=== PATIENT | female | born 1950 | race Caucasian/White ===

== ENCOUNTER → 2016-06-14 | Outpatient (CLI) | payer MEDICAID ==
[~2016-06-14] MED LIST: ACET-2267 PO; ASPI-586 PO; ASPI-983 PO; ATEN50TA PO; ATOR40TA70 PO; CALC-78 PO; CARB25DR OU; CEFU250T PO; CEFU250T80 PO; CITA40TA11 PO; CYCL1DRO OU; ETOD500T PO; FERR-74 PO; GABA-488 PO; GABA-490 PO; GLUC-132 PO; GLUC1TAB20 PO; INSU100I14 SQ; INSU100V6 SQ; L.AC1CAP6 PO; LISI-556 PO; METF1000 PO; MINE3.5O2 OU; MIRA50TA PO; MULT-166 PO; OXYB10TA PO; OXYB15TA PO; OXYB5TAB9 PO; POLY15DR14 OU; RANI150T11 PO; SIMV20TA3 PO; TOPI200T8 PO; WARF-48 PO; WARF2.5T82 PO; WARF5TAB PO; WARF7.5T49 PO
--- OUTSIDE RECORDS SUMMARY | 2016-06-14 11:44 | XMS REPORT | Continuity of Care Document ---
Author Author [facility] Organization [facility] Address Unknown Phone Unavailable Care Team Providers Care Med Specialist Name Role Phone DELIA TRIANA MD PCP Insurance Providers Payer Name Policy Number Subscriber Name Relationship [facility] [id number] Alfredo Paez 20 Self / Same As Patient Advance Directives Directive Response Recorded Date/Time Advance Directives No 02/11/16 8:18am Health Care Power of Asbestos Shingle Inspector No 02/11/16 8:18am Organ Donor No 02/11/16 8:18am Resuscitation Status Full Code 02/11/16 8:18am Problems Active Problems Medical Problem Onset Date Status DVT (deep venous thrombosis) Unknown Acute Deep vein thrombosis of left lower extremity Unknown Acute Post-menopausal bleeding Unknown Acute UTI (urinary tract infection) Unknown Acute Upper respiratory infection, acute Unknown Acute Urinary tract infection Unknown Acute Medications Current Home Medications Medication Dose Units Route Directions Days/Qty Instructions Start Date Polyvinyl Alcohol/Povidone 15 Ml 1 Drop Each Eye Four Times Daily as needed for Dry Eyes 08/08/15 Carboxymethylcell/Hypromellose 25 Ml Each Eye Bedtime as needed for Dry Eyes 08/08/15 Mineral Oil/Petrolatum,White 3.5 Gm Each Eye Bedtime 08/08/15 Oxybutynin Chloride 15 Mg 15 Mg Oral Daily 08/08/15 Oxybutynin Chloride 5 Mg 5 Mg Oral Bedtime 08/08/15 Ranitidine Hcl 150 Mg 150 Mg Oral Twice A Day as needed for Heartburn 08/08/15 Insulin Aspart 300 Units/3 Ml 7 Units Sub-Q Breakfast & Lunch Insulin Aspart 300 Units/3 Ml 9 Units Sub-Q With Evening Meal Topiramate 200 Mg 100 Mg Oral Twice A Day TAKES 1/2 (200MG) TABLET Aspirin 81 Mg 81 Mg Oral Daily 08/08/15 Atenolol 50 Mg 50 Mg Oral Twice A Day 08/08/15 Calcium Carbonate/Vitamin D3 1 Each 2 Tab Oral Daily 08/08/15 Citalopram Hydrobromide 40 Mg 40 Mg Oral Daily 08/08/15 Etodolac 500 Mg 500 Mg Oral Twice A Day 08/08/15 Acetaminophen 500 Mg 1,000 Mg Oral Every 6 Hours as needed for Pain TAKES 2 (500MG) TABLETS 08/08/15 Insulin Glargine,Hum.rec.anlog 100 Unit/1 Ml 18 Unit Sub-Q Bedtime 08/08/15 Lisinopril 5 Mg 5 Mg Oral Bedtime 08/08/15 Lisinopril 5 Mg 10 Mg Oral Daily TAKES 2 (5MG) TABLETS 08/08/15 Multivitamin With Minerals 1 Each 1 Tab Oral Daily 08/08/15 Simvastatin 20 Mg 10 Mg Oral Bedtime TAKES 1/2 (20MG) TABLET 08/08/15 Gluc Hoyos/Chondro Hoyos A/Vit C/Mn 1 Each 1 Tab Oral Twice A Day 08/08/15 Warfarin Sodium 2.5 Mg 2.5 Mg Oral Daily 08/27/15 Cefuroxime Axetil 250 Mg 250 Mg Oral Twice A Day for Uti 14 08/27/15 Past Home Medications Medication Directions Ordered Status Gabapentin 300 Mg Capsule, 600 Mg Oral Three Times A Day 08/08/15 Discontinued Metformin Hcl 1,000 Mg Tablet, 1000 Mg Oral Twice A Day 08/08/15 Discontinued L.acidoph & Paracasei,B.lactis 1 Each Capsule, 1 Cap Oral Daily as needed for Loose Stools 08/08/15 Discontinued Warfarin Sodium 5 Mg Tablet, 5 Mg Oral Daily 08/11/15 Discontinued Social History Social History Problem Response Recorded Date/Time Alcohol Use Past History 08/27/2015 12:27am Recreational Drug Use No 08/27/2015 12:27am Recent Foreign Travel No 02/11/2016 8:18am Recent Infectious Disease Exposure No 02/11/2016 8:18am Smoking Status Former Smoker 02/11/2016 8:37am Query Response Start Date Stop Date Smoking Status Former Smoker 08/07/1980 Hospital Discharge Instructions Patient Instructions Physician Instructions Follow Up/Plan Hold Metformin for [address] Calvert's office in 2-4 weeks CARDIAC CATH DISCHARGE INSTRUCTIONS *Hold Metformin for 48 hours post heart cath. ACTIVITY * Go Home directly and rest. * Limit activity of the leg (or wrist if it was used) for 7 days including aerobics, swimming, jogging, bicycling, etc. * Restrict stair-climbing for 7 days if possible, if not, climb up with your non-cath leg, then bring together on the same step. * Avoid lifting, pushing, pulling or excessive movement of the affected extremity for 7 days. * Customary sexual activity may be resumed after 2 days-use caution not to use a position that strains or causes pain to the affected extremity. * No driving for 24 hours. * NO SMOKING. * Avoid straining for bowel movements for 7 days. * Gentle walking on level ground is allowed. * Returning to work will depend on the type of procedure and the results. Your doctor will discuss this with you. CALL YOUR DOCTOR FOR ANY OF THE FOLLOWING: *If bleeding from the puncture site occurs- Apply gentle pressure to site with clean cloth and call your doctor or EMS. * If a knot or lump forms under the skin, increases in size, or causes pain. * If bruising appears to be worsening or moving further down your leg instead of disappearing. * Temperature above 101 F. CARE OF YOUR GROIN INCISION; * Bruising or purple discoloration of the skin near the puncture site is common. * You may shower only, no bathtub bathing for 5 days. Be careful to avoid slipping as your leg may feel stiff. * If a closure device was used on your femoral artery, please see the attached guide regarding care of the device and your leg. * REMOVE the dressing from your groin the next day after your procedure in the shower. CARE OF YOUR WRIST INCISION; * Bruising or purple discoloration of the skin near the puncture site is common. * You may shower. * DO NOT submerge wrist. * Remove dressing in 24 hours. Plan of Care Discharge Date 02/11/16 5:15pm Instructions/Education Provided CARDIAC CATH DISCHARGE INSTRUC Prescriptions See Medication Section Functional Status Query Response Date Recorded Patient Orientation Person Place Time Situation Normal For Age February 11, 2016 5:19pm Allergies, Adverse Reactions, Alerts Allergen Type Severity Reaction Status Last Updated Isosorbide Allergy Unknown Active 08/07/15 Glyburide Allergy Unknown Active 08/07/15 cellulase Allergy Unknown Active 08/07/15 amylase Allergy Unknown Active 08/07/15 lipase Allergy Unknown Active 08/07/15 protease Allergy Unknown Active 08/07/15 Black cohosh extract Allergy Unknown Active 08/07/15 Immunizations No immunization records. Vital Signs Acute Vital Signs Vital Response Date/Time Temperature (Fahrenheit) 97.0 degrees F (97.6 - 99.5) 02/11/2016 5:15pm Temperature (Calculated Celsius) 36.87395 degrees C (36.4 - 37.5) 02/11/2016 4:00pm Temperature Source Temporal 02/11/2016 5:15pm Pulse Rate (adult) 67 bpm (60 - 90) 02/11/2016 5:15pm Respiratory Rate 18 bpm (12 - 24) 02/11/2016 5:15pm O2 Sat by Pulse Oximetry 99 % (88 - 100) 02/11/2016 5:15pm Blood Pressure 117/67 mm Hg 02/11/2016 5:15pm Blood Pressure Mean 84 mm Hg 02/11/2016 5:00pm Pain Numeric Pain Scale 0-No Pain 02/11/2016 5:15pm Height (Feet) 5 feet 02/11/2016 8:37am Height (Inches) 10.00 inches 02/11/2016 8:37am Height (Calculated Centimeters) 177.349349 cm 02/11/2016 8:37am Weight (Pounds) 313 pounds 02/11/2016 8:37am Weight (Ounces) 0.0 oz 02/11/2016 8:37am Weight (Calculated Grams) 320921.41 gm 02/11/2016 8:37am Weight (Calculated Kilograms) 141.729279 kilograms 02/11/2016 8:37am Calculated BMI 44.9 02/11/2016 8:37am Results Pending Laboratory Results Test Name Collection Date/Time Microbiology Results Procedure Source Result Collection Date/Time Result Date/Time Anaerobic Culture Tissue, Toe No anaerobes isolated 01/13/2016 11:15am 07/2015 1:53pm Wound Culture Tissue, Toe STAPH, COAG NEG (HIGH SCHOOL MUSIC INSTRUCTOR) 01/13/2016 11:15am 2015 10:39am Anaerobic Culture Bone, Toe No growth 02/03/2016 12:18pm 02/05/2016 4:03pm Wound Culture Bone, Toe No growth 02/03/2016 12:18pm 02/04/2016 1:30pm Pending Microbiology Results Procedure Source Collection Date/Time Procedures Procedure Status Date Provider(s) Color Doppler echocardiography Active 01/30/16 CHARLY CALVERT MD Encounters Encounter Location Arrival/Admit Date Discharge/Depart Date Attending Provider Departed [facility] 02/11/16 7:52am 5:15pm CHARLY CALVERT MD Discharged Recurring [facility] 02/10/16 11:06am 8:56am NATE MORGAN MD Registered Clinic [facility] 01/30/16 1:37pm CHARLY CALVERT MD Registered Clinic [facility] 01/29/16 4:30pm DELIA TRIANA MD Registered Clinic [facility] 01/20/16 12:38pm NATE MORGAN MD
--- NOTE | 2016-06-14 13:20 | Diagnostic Imaging Report ---
Transabdominal and transvaginal pelvic ultrasound. INDICATION: Postmenopausal spotting. FINDINGS: The uterus is 6.4 x 4.8 x 3.5 cm. The endometrial stripe does not appear to be uniform with thickest area about 0.7 cm. Tiny cystic spaces are noted in the endometrium. There is no definitive internal vascularity seen with color Doppler. In the uterine fundus there is a myometrial hypoechoic lesion measuring 1.6 x 1.5 x 1.6 cm likely related to fibroid. There is also a lesion measuring 1.1 cm noted at the junction between the cervix and the lower uterine segment abutting the anterior aspect of the endometrial/endocervical canal, questioned to be a complicated nabothian cyst. The ovaries are obscured by bowel gas. IMPRESSION: Abnormal thickening of the endometrium with mild heterogeneity may relate to underlying hyperplasia, polyp, or endometrial carcinoma. Report was called and faxed to Katherine at office of Dr. Eliseo Valdivia @ 1:15 PM/gianni. Dictated by: Dictated on workstation # [id number]
== END ==
LOC: RAD 11:41
PROVIDERS: ATTEND Obstetrics & Gynecology
DX: N95.0 Postmenopausal bleeding (principal)
CPT/HCPCS: 76830; 76856

== ENCOUNTER → 2016-06-17 | Outpatient (CLI) | payer OTHER, MEDICAID ==
--- OUTSIDE RECORDS SUMMARY | 2016-06-17 13:20 | XMS REPORT | Continuity of Care Document ---
Author Author [facility] Organization [facility] Address Unknown Phone Unavailable Care Team Providers Care Oceanographic Meteorologist Name Role Phone DELIA TRIANA MD PCP Insurance Providers Payer Name Policy Number Subscriber Name Relationship [facility] [id number] Alfredo Peaz 20 Self / Same As Patient Advance Directives Directive Response Recorded Date/Time Advance Directives No 02/11/16 8:18am Health Care Power of Vice President Tax No 02/11/16 8:18am Organ Donor No 02/11/16 [...] - 99.5) 02/11/2016 5:15pm Temperature (Calculated Celsius) 36.23281 degrees C (36.4 - 37.5) 02/11/2016 4:00pm [...] 10.00 inches 02/11/2016 8:37am Height (Calculated Centimeters) 177.904732 cm 02/11/2016 8:37am Weight (Pounds) 313 pounds 02/11/2016 8:37am Weight (Ounces) 0.0 oz 02/11/2016 8:37am Weight (Calculated Grams) 568779.41 gm 02/11/2016 8:37am Weight (Calculated Kilograms) 141.639924 kilograms 02/11/2016 8:37am Calculated BMI 44.9 02/11/2016 8:37am Results Pending Laboratory Results Test Name Collection Date/Time Microbiology Results Procedure Source Result Collection Date/Time Result Date/Time Anaerobic Culture Tissue, Toe No anaerobes isolated 01/13/2016 11:15am 07/2015 1:53pm Wound Culture Tissue, Toe STAPH, COAG NEG (CUTTER MACHINE TENDER) 01/13/2016 11:15am 2015 10:39am Anaerobic Culture Bone, Toe No growth 02/03/2016 12:18pm 02/05/2016 4:03pm Wound Culture Bone, Toe No growth 02/03/2016 12:18pm 02/04/2016 1:30pm Pending Microbiology Results Procedure Source Collection Date/Time Procedures Procedure Status Date Provider(s) Color Doppler echocardiography Active 01/30/16 CHARLY CALVERT MD Encounters Encounter Location Arrival/Admit Date Discharge/Depart Date Attending Provider Departed [facility] 02/11/16 7:52am 5:15pm CHARLY CALVERT MD Discharged Recurring [facility] 02/10/16 11:06am 8:56am NATE MORGAN MD Registered Clinic [facility] 01/30/16 1:37pm CHARLY CALVERT MD Registered Clinic [facility] 01/29/16 4:30pm DELIA TRIANA MD Registered Clinic [facility] 01/20/16 12:38pm NATE MORGAN MD
--- NOTE | 2016-06-21 13:14 | Diagnostic Imaging Report ---
Bilateral screening mammogram. The current study was also evaluated with a Computer Aided Detection (CAD) system. INDICATION: Screening. No current complaints stated on the questionnaire. COMPARISON: 06/02/15. FINDINGS: The breasts are composed of scattered fibroglandular densities. There are occasional benign-appearing calcifications seen. Allowing for technique and positional differences, no suspicious change is seen. IMPRESSION: No significant change. ACR BI-RADS Category 2: Benign findings. Result letter will be mailed to the patient. Note: At least 10% of breast cancer is not imaged by mammography. Dictated by: Dictated on workstation # [id number]
== END ==
LOC: RAD 13:16
DX: Z12.31 Encounter for screening mammogram for malignant neoplasm of breast (principal)
CPT/HCPCS: 77067

== ENCOUNTER 2016-07-14 05:33 | Outpatient (CLI) | payer OTHER, MEDICAID ==
[~2016-07-14] VITALS: Ht 177.8 cm; Wt 142.0 kg
[~2016-07-14 05:33] MED LIST changes: -ASPI-586 PO; -ATOR40TA70 PO; -CEFU250T80 PO; -CYCL1DRO OU; -FERR-74 PO; -GABA-490 PO; -GLUC-132 PO; -MIRA50TA PO; -OXYB10TA PO; -WARF-48 PO
--- OUTSIDE RECORDS SUMMARY | 2016-07-14 05:37 | XMS REPORT | Continuity of Care Document ---
Author Author [facility] Organization [facility] Address Unknown Phone Unavailable Care Team Providers Care Claims Coordinator Name Role Phone DELIA TRIANA MD PCP Insurance Providers Payer Name Policy Number Subscriber Name Relationship [facility] [id number] Alfredo Paez 20 Self / Same As Patient Advance Directives Directive Response Recorded Date/Time Advance Directives No 02/11/16 8:18am Health Care Power of In Room Dining Server No 02/11/16 8:18am Organ Donor No 02/11/16 [...] - 99.5) 02/11/2016 5:15pm Temperature (Calculated Celsius) 36.75257 degrees C (36.4 - 37.5) 02/11/2016 4:00pm [...] 10.00 inches 02/11/2016 8:37am Height (Calculated Centimeters) 177.447915 cm 02/11/2016 8:37am Weight (Pounds) 313 pounds 02/11/2016 8:37am Weight (Ounces) 0.0 oz 02/11/2016 8:37am Weight (Calculated Grams) 736085.41 gm 02/11/2016 8:37am Weight (Calculated Kilograms) 141.984917 kilograms 02/11/2016 8:37am Calculated BMI 44.9 02/11/2016 8:37am Results Pending Laboratory Results Test Name Collection Date/Time Microbiology Results Procedure Source Result Collection Date/Time Result Date/Time Anaerobic Culture Tissue, Toe No anaerobes isolated 01/13/2016 11:15am 07/2015 1:53pm Wound Culture Tissue, Toe STAPH, COAG NEG (EMPLOYEE RELATIONS MANAGER) 01/13/2016 11:15am 2015 10:39am Anaerobic Culture Bone, Toe No growth 02/03/2016 12:18pm 02/05/2016 4:03pm Wound Culture Bone, Toe No growth 02/03/2016 12:18pm 02/04/2016 1:30pm Pending Microbiology Results Procedure Source Collection Date/Time Procedures Procedure Status Date Provider(s) Color Doppler echocardiography Active 01/30/16 CHARLY CALVERT MD Encounters Encounter Location Arrival/Admit Date Discharge/Depart Date Attending Provider Departed [facility] 02/11/16 7:52am 5:15pm CHARLY CALVERT MD Discharged Recurring [facility] 02/10/16 11:06am 8:56am NATE MORGAN MD Registered Clinic [facility] 01/30/16 1:37pm CHARLY CALVERT MD Registered Clinic [facility] 01/29/16 4:30pm DELIA TRIANA MD Registered Clinic [facility] 01/20/16 12:38pm NATE MORGAN MD
[2016-07-14] MEDS ORDERED: ATOR40TA70 PO (13:21)
[2016-07-14] MEDS ORDERED: MIRA50TA PO (13:21)
[2016-07-14] MEDS ORDERED: WARF-48 PO (13:21)
[2016-07-14] MEDS ORDERED: GLUC-132 PO (13:21)
[2016-07-14] MEDS ORDERED: CYCL1DRO OU (13:21)
[2016-07-14] MEDS ORDERED: FERR-74 PO (13:21)
[2016-07-14] MEDS ORDERED: CEFU250T80 PO (13:21)
[2016-07-14] MEDS ORDERED: OXYB10TA PO (13:21)
[2016-07-14] MEDS ORDERED: METF1000 PO (13:21)
[2016-07-14] MEDS ORDERED: GABA-490 PO (13:21)
== END 2016-07-14 13:24 ==
LOC: PREOP 05:33
PROVIDERS: ATTEND Internal Medicine
DX: Z01.818 Encounter for other preprocedural examination (principal); K59.00 Constipation, unspecified; Z80.0 Family history of malignant neoplasm of digestive organs

== ENCOUNTER 2016-07-16 07:48 | Day surgery (SDC) | payer OTHER, MEDICAID ==
[~2016-07-16] VITALS: Ht 177.8 cm; Wt 142.0 kg
[~2016-07-16 07:48] MED LIST changes: +ATOR40TA70 PO; +CEFU250T80 PO; +CYCL1DRO OU; +FERR-74 PO; +GABA-490 PO; +GLUC-132 PO; +MIRA50TA PO; +OXYB10TA PO; +WARF-48 PO
--- OUTSIDE RECORDS SUMMARY | 2016-07-16 07:52 | XMS REPORT | Continuity of Care Document ---
Author Author [facility] Organization [facility] Address Unknown Phone Unavailable Care Team Providers Care Glass Or Mirror Inspector Name Role Phone DELIA TRIANA MD PCP Insurance Providers Payer Name Policy Number Subscriber Name Relationship [facility] [id number] Alfredo Paez 20 Self / Same As Patient Advance Directives Directive Response Recorded Date/Time Advance Directives No 02/11/16 8:18am Health Care Power of Administrative Personal Assistant No 02/11/16 8:18am Organ Donor No 02/11/16 [...] - 99.5) 02/11/2016 5:15pm Temperature (Calculated Celsius) 36.87074 degrees C (36.4 - 37.5) 02/11/2016 4:00pm [...] 10.00 inches 02/11/2016 8:37am Height (Calculated Centimeters) 177.957822 cm 02/11/2016 8:37am Weight (Pounds) 313 pounds 02/11/2016 8:37am Weight (Ounces) 0.0 oz 02/11/2016 8:37am Weight (Calculated Grams) 884029.41 gm 02/11/2016 8:37am Weight (Calculated Kilograms) 141.949168 kilograms 02/11/2016 8:37am Calculated BMI 44.9 02/11/2016 8:37am Results Pending Laboratory Results Test Name Collection Date/Time Microbiology Results Procedure Source Result Collection Date/Time Result Date/Time Anaerobic Culture Tissue, Toe No anaerobes isolated 01/13/2016 11:15am 07/2015 1:53pm Wound Culture Tissue, Toe STAPH, COAG NEG (MONITORING SPECIALIST) 01/13/2016 11:15am 2015 10:39am Anaerobic Culture Bone, [...]
--- OUTSIDE RECORDS SUMMARY | 2016-07-16 07:53 | XMS REPORT | Continuity of Care Document ---
Author Author [facility] Organization [facility] Address Unknown Phone Unavailable Care Team Providers Care Cat Wagon Operator Name Role Phone DELIA TRIANA MD PCP Insurance Providers Payer Name Policy Number Subscriber Name Relationship [facility] [id number] Alfredo Paez 20 Self / Same As Patient Advance Directives Directive Response Recorded Date/Time Advance Directives No 02/11/16 8:18am Health Care Power of Ammonia Refrigeration Technician No 02/11/16 8:18am Organ Donor No 02/11/16 [...] - 99.5) 02/11/2016 5:15pm Temperature (Calculated Celsius) 36.61198 degrees C (36.4 - 37.5) 02/11/2016 4:00pm [...] 10.00 inches 02/11/2016 8:37am Height (Calculated Centimeters) 177.732550 cm 02/11/2016 8:37am Weight (Pounds) 313 pounds 02/11/2016 8:37am Weight (Ounces) 0.0 oz 02/11/2016 8:37am Weight (Calculated Grams) 744409.41 gm 02/11/2016 8:37am Weight (Calculated Kilograms) 141.711579 kilograms 02/11/2016 8:37am Calculated BMI 44.9 02/11/2016 8:37am Results Pending Laboratory Results Test Name Collection Date/Time Microbiology Results Procedure Source Result Collection Date/Time Result Date/Time Anaerobic Culture Tissue, Toe No anaerobes isolated 01/13/2016 11:15am 07/2015 1:53pm Wound Culture Tissue, Toe STAPH, COAG NEG (OBSTETRICS TEACHER) 01/13/2016 11:15am 2015 10:39am Anaerobic Culture Bone, Toe No growth 02/03/2016 12:18pm 02/05/2016 4:03pm Wound Culture Bone, Toe No growth 02/03/2016 12:18pm 02/04/2016 1:30pm Pending Microbiology Results Procedure Source Collection Date/Time Procedures Procedure Status Date Provider(s) Color Doppler echocardiography Active 01/30/16 CHARLY CALVERT MD Encounters Encounter Location Arrival/Admit Date Discharge/Depart Date Attending Provider Departed Surgical Day [facility] 02/11/16 7:52am 5:15pm CHARLY CALVERT MD Discharged Recurring [facility] 02/10/16 11:06am 8:56am NATE MORGAN MD Registered Clinic [facility] 01/30/16 1:37pm CHARLY CALVERT MD Registered Clinic [facility] 01/29/16 4:30pm DELIA TRIANA MD Registered Clinic [facility] 01/20/16 12:38pm NATE MORGAN MD
[2016-07-16] MEDS ORDERED: 1/2 NS IV SOLUTION 1,000 ML IV STA (08:01)
[2016-07-16] MEDS ORDERED: 1/2 NS IV SOLUTION 1,000 ML IV ONE (08:10)
[2016-07-16] MEDS ORDERED: NALOXONE 0.4 MG/ML 1 ML (NARCAN) VIAL IVP PRN (08:15)
[2016-07-16] MEDS ORDERED: MIDAZOLAM 2 MG/2 ML (VERSED) VIAL IVP PRN (08:15)
[2016-07-16] MEDS ORDERED: FLUMAZENIL (ROMAZICON) 0.1 MG/ML 5 ML VIAL INJ PRN (08:15)
[2016-07-16] MEDS ORDERED: fentaNYL INJECTION 100 MCG/2 ML AMP IVP PRN (08:15)
[2016-07-16 08:18] VITALS: BP 127/68
--- NOTE | 2016-07-16 08:19 | Pre-Op Note & Conscious Sedat ---
Pre-Operative Progress Note H&P Reviewed The H&P was reviewed, patient examined and no changes noted. Date H&P Reviewed: Jul 16, 2016 Time H&P Reviewed: 08:19 Conscious Sedation Pre-Proced ASA Class: 2 Airway Mallampati Classification: ([place] appropriate class) I. II. III, IV Lungs Heart ASA score ASA 1: a normal healthy patient ASA 2: a patient with a mild systemic disease (mid diabetes, controlled hypertension, obesity ASA 3: a patient with a severe systemic disease that limits activity (angina , COPD, prior Myocardial infarction) ASA 4: a patient with an incapacitating disease that is a constant threat to life (CHF, renal failure) ASA 5: a moribund patient not expected to survive 24 hrs. (ruptured aneurysm) ASA 6: a declared brain patient whose organs are being harvested. For emergent operations, add the letter E after the classification Grade 2 Sedation Plan: Analgesia, Amnesia, Plan communicated to team members, Discussed options with patient/fam, Discussed risks with patient/fam Note The patient is an appropriate candidate to undergo the planned procedure, sedation, and anesthesia. The patient immediately re-assessed prior to indication. ADOLFO MELENDREZ MD Jul 16, 2016 08:19
[2016-07-16] MEDS ORDERED: fentaNYL INJECTION 100 MCG/2 ML AMP ONE ×2 (10:11)
[2016-07-16] MEDS ORDERED: LIDOCAINE JELLY 2% (XYLOCAINE) 5 ML TUBE ONE (10:11)
[2016-07-16] MEDS ORDERED: MIDAZOLAM 2 MG/2 ML (VERSED) VIAL ONE ×2 (10:12)
[2016-07-16 11:15] VITALS: BP 141/72
[2016-07-16 11:45] VITALS: BP 113/70
--- NOTE | 2016-07-16 12:18 | HISTORY AND PHYSICAL ---
DATE OF ADMISSION: 07/16/2016 DICTATING PHYSICIAN: Dr. Valdez Mrs. Paez is a 65-year-old white female referred by Dr. Goode for screening colonoscopy. She is deemed to be of higher than average risk due to family history for colon cancer. Index cases being a grandmother diagnosed in her 70s and an uncle, she believes diagnosed in his late 60s. She underwent colonoscopy 5 years ago, at which time she had mild diverticular disease noted and she believes there is no evidence for neoplasia at that time. She reports a history of constipation has noted no melena or bright red blood per rectum. She reports a history of constipation. She has noted no melena or bright red blood per rectum. She reports that her weight has been stable and she denies any abdominal pain. PAST MEDICAL HISTORY: 1. Significant for long-standing diabetes insulin-dependence. 2. She has diabetic neuropathy with bilateral Charcot deformity and has had past problems with secondary diabetic foot ulceration requiring hyperbaric oxygen therapy. She reports no active foot ulceration currently. 3. She does have a history of DVT, first one experienced following ACL repair to the left knee resulting in left lower extremity DVT. Then last Easter had an apparent unprovoked DVT in the left lower extremity and has been recommended that she remain on lifelong anticoagulation therapy for this reason, as well as the fact that she apparently had some documented atrial fibrillation and is being followed by Dr. Calvert. 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 She has no past smoking or drinking history. PAST SURGICAL HISTORY: 1. ACL surgery. 2. She has had some gum surgery. 3. Bladder biopsy. 4. Cataract extraction. FAMILY HISTORY: Other than the above stated colon history, both father and mother had a history of cardiovascular disease. Her mother, brothers and sisters have had history of diabetes mellitus as well. PHYSICAL EXAMINATION: Reveals an overweight white female, appears to be in no acute distress. She is alert and articulate. Her blood pressure was 130/86 with a heart rate is 72 and regular. HEENT EXAMINATION: Unremarkable. NECK: Revealed no JVD, adenopathy or bruits. CHEST: Clear. CV: Reveals regular rate and rhythm without murmur, S3 or S4. ABDOMEN: Soft, supple without masses, organomegaly or tenderness. EXTREMITIES: Reveal no cyanosis or clubbing. There is trace pedal edema. Extremities are warm. There is collapse of the arch present with no active ulcerations being noted and deformities compatible with Charcot foot deformity bilaterally. ASSESSMENT: The patient was set-up for screening colonoscopy deemed to be of higher than average risk due to a family history colon cancer in two second degree relatives and a brother with a family history of polyps on several occasions. She was set-up for colonoscopy on July 16. She is to abstain from baby aspirin and Coumadin 2 days prior to the procedure. We will obtain an INR the morning her procedure. I thank you for the referral of this pleasant lady. Sincerely, Ivan Valdez Job ID: [id number] Dictated Date: 06/28/2016 19:55:00 Quality System Manager Date: 06/29/2016 08:36:54/festus
[2016-07-16 14:10] VITALS: BP 113/70
--- NOTE | 2016-07-17 22:47 | PROCEDURE REPORT ---
PROCEDURE PHYSICIAN: ADOLFO MELENDREZ DATE OF PROCEDURE: 07/16/2016 COLONOSCOPY SUMMARY: INDICATION FOR THE PROCEDURE: 1. Family history of colon cancer. 2. Screening colonoscopy. PROCEDURE: The patient was placed in the left lateral decubitus position. Prior to undergoing colonoscopy, digital rectal evaluation was performed. Anal sphincter tone was normal. The perianal reflux was intact. Digital rectal evaluation was compatible with a rectocele. No stool pocketing was noted. No other abnormalities were noted to digital inspection of the anal canal or distal rectal vault. The colonoscope was then inserted into the rectum and under visualization, advanced to the cecum. The cecum was identified by identification of ileocecal valve and cecal strap. Photographic documentation was obtained. A careful inspection was made as the colonoscope was withdrawn. The patient tolerated the procedure well. FINDINGS: No evidence for internal or external hemorrhoids and the rectum was unremarkable. Several small sigmoid diverticulum were present without evidence for diverticulitis. No other sigmoid colonic abnormalities were appreciated. The descending colon, splenic flexure and transverse colon were unremarkable except for a diminutive polyp noted in the proximal transverse colon. It was biopsied and ablated, with no subsequent blood loss. The hepatic flexure, ascending colon and cecum and colon are unremarkable. ASSESSMENT: 1. Minimal diverticular disease confined to the sigmoid colon was present. 2. One diminutive polyp was removed from the proximal transverse colon. 3. Digital rectal evaluation was compatible with a moderate rectocele. I would advocate, considering family history, consideration for repeat screening colonoscopy in 5 years, provided there are no surprises on histopathology report. I thank you for the referral. Sincerely, Job ID: [id number] Dictated Date: 07/16/2016 11:53:55 Historic Sites Registrar Date: 07/17/2016 22:43:10 / marlen CASTLE
== END 2016-07-16 12:30 | disposition home or self-care (01) ==
LOC: ENDO 07:48
PROVIDERS: ATTEND Internal Medicine
DX: Z12.11 Encounter for screening for malignant neoplasm of colon (principal); K63.5 Polyp of colon; K57.30 Diverticulosis of large intestine without perforation or abscess without bleeding; Z80.0 Family history of malignant neoplasm of digestive organs; E11.9 Type 2 diabetes mellitus without complications; Z79.4 Long term (current) use of insulin
CPT/HCPCS: 82962; 88305

== ENCOUNTER 2016-08-09 13:01 | Outpatient (CLI) | payer MEDICAID ==
[~2016-08-09] VITALS: Ht 177.8 cm; Wt 139.7 kg
[2016-08-09 13:17] VITALS: BP 118/62
[2016-08-09] MEDS ORDERED: ASPI-586 PO (13:29)
[2016-08-09] MEDS ORDERED: WARF2.5T82 PO (13:29)
[2016-08-09 14:24] LABS: KETONES,URINE NEGATIVE (NEGATIVE); LEUKOCYTE ESTERASE ,URINE 3+ (NEGATIVE); NITRITE,URINE POSITIVE (NEGATIVE); PH,URINE 7 (5-9); PROTEIN,URINE NEGATIVE (NEGATIVE); UROBILINOGEN,URINE NORMAL (NORMAL)
[2016-08-09 14:35] LABS: BILIRUBIN,URINE 2+ (NEGATIVE); WBC,URINE TNTC /HPF
== END 2016-08-09 13:50 | disposition home or self-care (01) ==
LOC: PREOP 13:01
PROVIDERS: ATTEND Obstetrics & Gynecology
DX: Z01.818 Encounter for other preprocedural examination (principal); Z11.2 Encounter for screening for other bacterial diseases; N95.0 Postmenopausal bleeding
CPT/HCPCS: 81000; 87081; 87088

== ENCOUNTER 2016-08-12 06:30 | Day surgery (SDC) | payer MEDICAID ==
[~2016-08-12] VITALS: Ht 177.8 cm; Wt 139.7 kg
[~2016-08-12 06:30] MED LIST changes: +ASPI-586 PO
[2016-08-12 06:50] VITALS: BP 113/58
[2016-08-12] MEDS ORDERED: FAMOTIDINE 20MG/2ML IV (PEPCID) IV ONE (07:00)
[2016-08-12 07:06] LABS: BASOPHILS % (AUTO) 0 % (0-10); EOSINOPHILS # (AUTO) 0.5 10^3/uL (0.0-0.3); EOSINOPHILS % (AUTO) 5 % (0-10); LYMPHOCYTES # (AUTO) 2.4 X 10^3 (1.0-4.0); LYMPHOCYTES % (AUTO) 22 % (12-44); MEAN CORPUSCULAR HEMOGLOBIN 27 PG (25-34); MEAN CORPUSCULAR HGB CONC 33 G/DL (32-36); MEAN CORPUSCULAR VOLUME 83 FL (80-99); MEAN PLATELET VOLUME 10.5 FL (7.4-10.4); MONOCYTES # (AUTO) 0.8 X 10^3 (0.0-1.0); MONOCYTES % (AUTO) 8 % (0-12); NEUTROPHILS # (AUTO) 7.1 X 10^3 (1.8-7.8); NEUTROPHILS % (AUTO) 65 % (42-75); PLATELET COUNT 299 10^3/uL (130-400); RED BLOOD COUNT 4.87 10^6/uL (4.35-5.85); RED CELL DISTRIBUTION WIDTH 15.3 % (10.0-14.5); WHITE BLOOD COUNT 10.9 10^3/uL (4.3-11.0)
--- NOTE | 2016-08-12 07:11 | Progress Note-Pre Operative ---
Pre-Operative Progress Note H&P Reviewed The H&P was reviewed, patient examined and no changes noted. Date H&P Reviewed: Aug 12, 2016 Time H&P Reviewed: 07:10 Pre-Operative Diagnosis: Postmenopausal Bleeding, Thickened endometrium on US, Morbid Obesity NATE WU DO Aug 12, 2016 7:11 am
[2016-08-12] MEDS ORDERED: FAMOTIDINE 20MG/2ML IV (PEPCID) ONE (07:14)
[2016-08-12 07:17] LABS: INR 1.2 (0.8-1.4); PROTHROMBIN TIME PATIENT 14.6 SEC (12.2-14.7)
[2016-08-12] MEDS: LACTATED RINGERS 1,000 ML IV PRN ×2 (07:19→08:40)
[2016-08-12 07:26] LABS: CALCIUM 9.3 MG/DL (8.5-10.1); CREATININE SERUM 1.02 MG/DL (0.60-1.30); POTASSIUM 4.6 MMOL/L (3.6-5.0)
--- NOTE | 2016-08-12 08:00 | Discharge Inst-Women's Service ---
Discharge Inst-Women's Serv Depart Medication/Instructions New, Converted or Re-Newed RX: RX on Chart Consults/Follow Up Additional Follow Up: Yes Activity Activity: Activity as Tolerated Driving Instructions: You May Drive (unless restricted otherwise) NO SMOKING: NO SMOKING Nothing Inside Vagina: No Douching, No [place], No Tampons Diet Discharge Diet: No Restrictions Symptoms to Report to : Bleeding Excessive, Pain Increased, Fever Over 101 Degrees F, Vaginal Bleeding Increase, Questions/Concerns For Any Problems or Questions: Contact Your Physician Skin/Wound Care Bathing Instructions: Shower (x 1 week) NATE WU DO Aug 12, 2016 8:00 am
[2016-08-12] MEDS ORDERED: LACTATED RINGERS 1,000 ML IV ONE ×2 (08:04→08:42)
[2016-08-12] MEDS ORDERED: LIDOCAINE PF 2% 10 ML (XYLOCAINE) AMP ONE ×2 (08:04→08:43)
[2016-08-12] MEDS ORDERED: ROCURONIUM 50 MG/5 ML (ZEMURON) VIAL IV ONE (08:04)
[2016-08-12] MEDS ORDERED: LIDOCAINE JELLY 2% (XYLOCAINE) 5 ML TUBE ONE (08:04)
[2016-08-12] MEDS ORDERED: fentaNYL INJECTION 100 MCG/2 ML AMP ONE (08:04)
[2016-08-12] MEDS ORDERED: ONDANSETRON 4 MG/2 ML (SDV) Z0FRAN ONE ×2 (08:04→09:09)
[2016-08-12] MEDS ORDERED: proPOfol 200 MG/20 ML (DIPRIVAN) VIAL IV ONE (08:04)
[2016-08-12] MEDS ORDERED: MIDAZOLAM 2 MG/2 ML (VERSED) VIAL ONE (08:05)
[2016-08-12] MEDS ORDERED: BUPIVACAINE 0.25% 30 ML (SENSORCAINE) VIAL ONE (08:08)
[2016-08-12] MEDS ORDERED: SEVOFLURANE (ULTANE) 15 ML INHAL SOLN ONE ×3 (08:48→09:02)
[2016-08-12] MEDS ORDERED: morphine INJ 10 MG/ML 1ML (SYR OR VIAL) ONE (09:09)
[2016-08-12] MEDS ORDERED: MEPERIDINE (DEMEROL) INJ 50 MG/ML IVP PRN (09:15)
[2016-08-12] MEDS ORDERED: ONDANSETRON 4 MG/2 ML (SDV) Z0FRAN IVP PRN (09:15)
[2016-08-12] MEDS ORDERED: morphine INJ 10 MG/ML 1ML (SYR OR VIAL) IVP PRN (09:15)
[2016-08-12 10:00] VITALS: BP 116/65
[2016-08-12 10:30] VITALS: BP 109/67
--- NOTE | 2016-08-13 09:53 | OPERATIVE REPORT ---
PROCEDURE PHYSICIAN: NATE WU DATE OF PROCEDURE: 08/12/2016 PREOPERATIVE DIAGNOSIS: 1. 65-year-old female with postmenopausal bleeding. 2. Thickened endometrium on uterine ultrasound. POSTOPERATIVE DIAGNOSES: 1. 65-year-old female with postmenopausal bleeding. 2. Thickened endometrium on uterine ultrasound. 3. Endometrial polypoid tissue. PROCEDURE: D\T\C with video hysteroscopy. SURGEON: Dr. Nate Wu. ANESTHESIA: General endotracheal. ESTIMATED BLOOD LOSS: Minimal. URINE OUTPUT: 250 mL, clear at the end of procedure. FLUIDS: 1400 mL of lactated ringer solution. FINDINGS: A normal size appearing uterus with polypoid appearing endometrial tissue suggestive of an endometrial polyp that appears benign grossly on examination and some mild amount of cervical stenosis. Grossly normal vaginal mucosa and external female genitalia. INDICATIONS FOR THE PROCEDURE: This 65-year-old female is a patient who had been established in my office with a consultation approximately year ago who was to under undergo D\T\C at the [facility] for similar findings. However the patient was diagnosed with a DVT and admitted on heparin drip and started on anticoagulation therapy for the past year. Therefore once we had clearance from her medical doctors we decided to proceed with a diagnostic procedure due to the findings previously mentioned. I discussed the patient risk of the procedure including risk of bleeding, infection, risk of anesthesia. After everything was discussed with the patient, a consent was obtained and the patient was taken to the operating room. OPERATIVE REPORT IN DETAIL: Once in the operating room anesthesia was found to be adequate. She was placed in dorsal lithotomy position, prepped and draped in the normal sterile fashion. I first examined the patient under anesthesia. The uterus was nonenlarged, freely mobile, I am unable to appreciate adnexal masses on bimanual examination however this is somewhat limited due to patient's body habitus. I then placed a weighted speculum in the patient's vagina. A right angle retractor was used to visualize the cervix. It was grasped at the 12 o'clock position using a long Allis clamp. I then gently dilate the cervix using Hegar dilators which was found to be slightly stenotic, however, I am able to dilate to a maximum dilatation of approximately 6 mm. I sound the uterine cavity depth which was found to be 7 cm. I perform a paracervical block at 3 and 9 o'clock position. Care was taken to aspirate for injecting. A total of 5 mL of 0.25% Marcaine are used at each injection site. I then advance the [employer] hysteroscopy camera using normal saline as my visual medium, I am able to visualize polypoid tissue within the endometrial cavity that appears both from anterior and posterior uterine endometrial wall. I then remove the hysteroscope and proceed with a gentle curette using medium size endometrial curette and collect a small to moderate amount of endometrial polypoid appearing tissue. This is sent as endometrial curettings. I then reexamine the uterine cavity which was found to be normal at that point. There is evidence of atrophy along the endometrial canal, consistent with her postmenopausal status. I then remove my hysteroscope and deemed the procedure complete. I remove all instruments from the patient's vagina and drained the bladder using straight catheterization. Lap and sponge counts were correct at the end of the procedure. Instrument counts correct as well. The patient tolerated the procedure well and was taken to recovery area in stable condition. Job ID: [id number] Dictated Date: 08/12/2016 09:55:50 Senior Sales Representative Date: 08/13/2016 09:43:58 / festus
== END 2016-08-12 11:34 | disposition home or self-care (01) ==
LOC: DELPENDDIS → SDC 06:30
PROVIDERS: ATTEND Obstetrics & Gynecology
DX: N95.0 Postmenopausal bleeding (principal); R93.8 Abnormal findings on diagnostic imaging of other specified body structures; N84.0 Polyp of corpus uteri; E11.9 Type 2 diabetes mellitus without complications; Z79.01 Long term (current) use of anticoagulants; Z79.84 Long term (current) use of oral hypoglycemic drugs
CPT/HCPCS: 36415; 80048; 85025; 85610; 85730; 86850; 86900; 86901; 88305; 94664

== ENCOUNTER → 2016-12-28 | Outpatient (CLI) | payer MEDICAID ==
--- NOTE | 2016-12-28 15:55 | Diagnostic Imaging Report ---
EXAMINATION: Pelvic ultrasound. INDICATION: Endometrial intraepithelial neoplasm. FINDINGS: The previous pelvic ultrasound exam performed on 06/14/2016 noted the endometrium is abnormally thickened measuring approximately 7 mm (normal postmenopausal endometrial thickness 5 mm or less). 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 On this exam, the endometrium does not seem to be abnormally thickened and measures only 3 mm. The uterus is not enlarged measuring 6.8 x 3.8 x 3.0 cm. There do appear to be two hypoechoic areas associated with the uterus. The larger is in the fundus and measures 1.9 x 1.5 x 1.7 cm. On the prior exam, there was a similar-appearing but smaller 1.6 x 1.5 x 1.6 cm hypoechoic area in this region. I do suspect that the hypoechoic lesion is related to a fibroid. The uterine myometrium does have a heterogeneous appearance but no other discrete fibroid is identified. The suspected nabothian cyst near the cervix seen previously is again evident and no different. The cyst has a generally benign appearance. The ovaries are not identified. There is no solid pelvic mass or free fluid collection noted. IMPRESSION: 1. The endometrial lining does not seem as thickened as noted on the prior exam. 2. The suspected fibroid in the uterine fundus and the nabothian cyst seen previously are again evident and no different. 3. There is no pelvic mass or free fluid collection noted. 4. The ovaries were not visualized. Dictated by: Dictated on workstation # [id number]
== END ==
LOC: RAD 12:50
PROVIDERS: ATTEND Registered Nurse
DX: N88.8 Other specified noninflammatory disorders of cervix uteri (principal); N85.9 Noninflammatory disorder of uterus, unspecified; N95.0 Postmenopausal bleeding
CPT/HCPCS: 76830; 76856

== ENCOUNTER → 2017-01-05 | Outpatient (CLI) | payer MEDICAID ==
[2017-01-05 15:37] LABS: MEAN PLATELET VOLUME 9.7 FL (7.4-10.4); RED BLOOD COUNT 5.01 10^6/uL (4.35-5.85); RED CELL DISTRIBUTION WIDTH 14.9 % (10.0-14.5); WHITE BLOOD COUNT 12.2 10^3/uL (4.3-11.0)
[2017-01-05 15:58] LABS: ALANINE AMINOTRANSFERASE 21 U/L (0-55); ALBUMIN 3.9 GM/DL (3.2-4.5); ANION GAP 9 MMOL/L (5-14); ASPARTATE AMINO TRANSFERASE 15 U/L (5-34); BILIRUBIN,TOTAL 0.6 MG/DL (0.1-1.0); BLOOD UREA NITROGEN 24 MG/DL (7-18); BUN/CREATININE RATIO 29; CALCIUM 9.3 MG/DL (8.5-10.1); CARBON DIOXIDE 26 MMOL/L (21-32); CHLORIDE 104 MMOL/L (98-107); CHOLESTEROL 139 MG/DL (< 200); CREATININE SERUM 0.82 MG/DL (0.60-1.30); DIRECT LDL 70 MG/DL (1-129); GFR ESTIMATED > 60; GLUCOSE 119 MG/DL (70-105); POTASSIUM 3.9 MMOL/L (3.6-5.0); SODIUM 139 MMOL/L (135-145); TOTAL PROTEIN 7.6 GM/DL (6.4-8.2); TRIGLYCERIDES 52 MG/DL (<150); VLDL CHOLESTEROL 10 MG/DL (5-40)
== END ==
LOC: LAB 15:17
PROVIDERS: ATTEND Internal Medicine Cardiovascular Disease
DX: I48.0 Paroxysmal atrial fibrillation (principal); R94.31 Abnormal electrocardiogram [ECG] [EKG]; I82.492 Acute embolism and thrombosis of other specified deep vein of left lower extremity; I10 Essential (primary) hypertension; R06.02 Shortness of breath; I47.1 Supraventricular tachycardia
CPT/HCPCS: 36415; 80053; 80061; 84443; 85027

== ENCOUNTER → 2017-02-03 | Outpatient (CLI) | payer MEDICAID ==
--- NOTE | 2017-02-03 17:23 | Diagnostic Imaging Report ---
PROCEDURE: MRI right joint upper extremity without contrast. TECHNIQUE: Multiplanar, multisequence non contrast-enhanced MRI of the right upper extremity was accomplished. INDICATION: Right shoulder pain. FINDINGS: There is a high-grade partial tear involving the supraspinatus and infraspinatus tendons with suspicion for a full-thickness tear component without retraction of tendon fibers of the supraspinatus. The subscapularis tendon demonstrates no significant tear. There is a normal location of the long head biceps tendon within its groove. There is a mild laterally downsloping curvature of the acromion. There is acromioclavicular joint osteoarthritis with hypertrophy and inferior osteophytes abutting the myotendinous junction of the supraspinatus. The glenoid labrum demonstrates increased signal in its superior and inferior aspects, which could relate to degeneration or possible underlying tears. The bone marrow signal is within normal limits. The muscle bulk demonstrates mild atrophy of the supraspinatus. There is a small amount of fluid in the subacromial bursa. IMPRESSION: 1. High grade tears in the supraspinatus and infraspinatus. There is suggestion of a full-thickness tear within the supraspinatus without significant tendon fiber retraction. 2. AC joint osteoarthritis with inferior osteophytes. There is also mild laterally downsloping configuration of the acromion. 3. Increased signal in the upper and lower segments of the labrum may relate to degeneration or possible underlying labral tear. Correlate clinically. Dictated by: Dictated on workstation # [id number]
== END ==
LOC: RAD 13:32
PROVIDERS: ATTEND Orthopaedic Surgery
DX: M75.101 Unspecified rotator cuff tear or rupture of right shoulder, not specified as traumatic; M19.011 Primary osteoarthritis, right shoulder
CPT/HCPCS: 73221

== ENCOUNTER 2017-05-18 11:03 | Outpatient (CLI) | payer MEDICAID ==
[~2017-05-18] VITALS: Ht 177.8 cm; Wt 141.6 kg
[2017-05-18] MEDS ORDERED: CARB1DRO15 OP (11:26)
[2017-05-18] MEDS ORDERED: NF-SOLIF5T PO (11:26)
[2017-05-18] MEDS ORDERED: WARF2.5T82 PO (11:26)
[2017-05-18] MEDS ORDERED: PRIM250T PO (11:31)
[2017-05-18 11:42] VITALS: BP 115/62
== END 2017-05-18 14:22 | disposition home or self-care (01) ==
LOC: PREOP 11:03
PROVIDERS: ATTEND Orthopaedic Surgery
DX: Z01.818 Encounter for other preprocedural examination (principal); Z11.2 Encounter for screening for other bacterial diseases; M75.101 Unspecified rotator cuff tear or rupture of right shoulder, not specified as traumatic; S43.431A Superior glenoid labrum lesion of right shoulder, initial encounter; X58.XXXA Exposure to other specified factors, initial encounter
CPT/HCPCS: 87081

== ENCOUNTER 2017-05-25 06:38 | Day surgery (SDC) | payer MEDICAID ==
--- NOTE | 2017-05-17 13:03 | HISTORY AND PHYSICAL ---
DATE OF SERVICE: This will be for outpatient surgery on 05/25/2017 for right shoulder rotator cuff repair. HISTORY OF PRESENT ILLNESS: The patient is a 66-year-old right hand dominant female with complaints of right shoulder pain and weakness. She has undergone treatment with injections, home exercise program and activity modifications without relief. An MRI was obtained, which showed full thickness tear in the supraspinatus and infraspinatus with a SLAP tear noted as well. Due to functional impairment and failure to improve with conservative measures, the patient has elected to proceed with surgical intervention. REVIEW OF SYSTEMS: No chest pain, no shortness of breath, no dysuria. PAST MEDICAL HISTORY: Back pain, diabetes, deep venous thrombosis, hypertension, osteoarthritis, MVP. PAST SURGICAL HISTORY: D and C, ACL reconstruction, angiogram. FAMILY HISTORY: Significant for hypertension, cancer, ischemic heart disease. PRIMARY CARE PROVIDER: . MEDICATIONS: 1. Lisinopril. 2. Metformin. 3. Topiramate. 4. Oxybutynin. 5. Myrbetriq. 6. Gabapentin. 7. Aspirin 8. Atenolol. 9. Citalopram. 10. Etodolac. 11. Lantus. 12. NovoLog. 13. Atorvastatin. 14. Coumadin. 15. Calcium. 16. Restasis. ALLERGIES: 1. ISORDIL. 2. GLYBURIDE. 3. BLACK COHOSH. 4. ACARBOSE. SOCIAL HISTORY: The patient is a former smoker with a [id number] history. She denies alcohol use. PHYSICAL EXAMINATION: GENERAL: The patient is a well developed, well nourished, in no acute distress. HEENT: Normocephalic, atraumatic. Pupils are equal, round, reactive to light. Oropharynx is clear. NECK: Supple, no lymphadenopathy. LUNGS: Clear to auscultation bilaterally. HEART: Regular rate and rhythm. ABDOMEN: Soft, nontender, nondistended. EXTREMITIES: The right shoulder demonstrates no gross atrophy. No skin lesions are noted. She has marked weakness with abduction and external rotation with positive drop arm sign. She is unable to actively elevate beyond 90 degrees, but can maintain 170 degrees of elevation, external and internal rotation actively are symmetric to the contralateral side. She is nontender at her acromioclavicular joint and has no pain with cross body abduction. IMPRESSION: Right shoulder rotator cuff tear with superior labrum anterior and posterior tear. PLAN: Right shoulder arthroscopic biceps tenotomy, acromioplasty and open rotator cuff repair. The risks, benefits, options, ramifications and recovery have been discussed at length with the patient. She understands and wishes to proceed. Job ID: [id number] DocumentID: [id number] Dictated Date: 05/17/2017 11:51:45 Rotary Planer Set Up Operator Date: 05/17/2017 13:02:43 Dictated By: NATE GEE MD
[~2017-05-25] VITALS: Ht 177.8 cm; Wt 141.6 kg
[~2017-05-25 06:38] MED LIST changes: +CARB1DRO15 OP; -FERR-74 PO; +FERR325T18 PO; +NF-SOLIF5T PO; +PRIM250T PO
[2017-05-25] MEDS ORDERED: MIDAZOLAM 2 MG/2 ML (VERSED) VIAL ONE (06:58)
[2017-05-25] MEDS ORDERED: proPOfol 200 MG/20 ML (DIPRIVAN) VIAL IV ONE (06:58)
[2017-05-25] MEDS ORDERED: fentaNYL INJECTION 100 MCG/2 ML AMP ONE (06:58)
[2017-05-25] MEDS ORDERED: LIDOCAINE PF 2% 5 ML (XYLOCAINE) VIAL ONE (06:58)
[2017-05-25] MEDS ORDERED: SEVOFLURANE (ULTANE) 15 ML INHAL SOLN ONE ×4 (06:58→08:46)
[2017-05-25] MEDS ORDERED: ROCURONIUM 50 MG/5 ML (ZEMURON) VIAL IV ONE (06:58)
[2017-05-25] MEDS ORDERED: ONDANSETRON 4 MG/2 ML (SDV) Z0FRAN ONE (06:58)
[2017-05-25] MEDS ORDERED: BUPIVACAINE 0.25% 30 ML (SENSORCAINE) VIAL ONE (07:05)
[2017-05-25] MEDS ORDERED: morphine INJ 10 MG/ML 1ML (SYR OR VIAL) ONE (07:05)
[2017-05-25] MEDS ORDERED: morphine PF (DURAMORPH) 10 MG/10 ML AMP ONE (07:06)
[2017-05-25 07:10] VITALS: BP 126/75
[2017-05-25] MEDS: LACTATED RINGERS 1,000 ML IV PRN ×2 (07:10→09:54)
[2017-05-25] MEDS ORDERED: ceFAZolin INJECTION 1,000 MG in NS (IVPB) 50 ML IV ONE (07:30)
[2017-05-25] MEDS ORDERED: oxyCODONE/APAP 5/325MG (PERCOCET 5) TABLET PO PRN (07:30)
--- NOTE | 2017-05-25 07:31 | Progress Note-Pre Operative ---
Pre-Operative Progress Note H&P Reviewed The H&P was reviewed, patient examined and no changes noted. Date Seen by Provider: May 25, 2017 Time Seen by Provider: 07:14 Date H&P Reviewed: May 25, 2017 Time H&P Reviewed: 07:11 Pre-Operative Diagnosis: right rotator cuff and SLAP tears NATE GEE MD May 25, 2017 07:31
--- NOTE | 2017-05-25 07:32 | Progress Note-Post Operative ---
Post-Operative Progess Note Surgeon (s)/Laundry Operator (s) Surgeon NATE GEE MD Laundry Operator: Benny Barnett Pre-Operative Diagnosis right rotator cuff and SLAP tears Post-Operative Diagnosis right rotator cuff tear right SLAP tear right shoulder labral tear Procedure & Operative Findings Date of Procedure 05/25/17 Procedure Performed/Findings right shoulder arthroscopic biceps tenotomy, labral debridement, acromioplasty and open rotator cuff repair Anesthesia Type GETA plus interscalene Estimated Blood Loss Estimated blood loss (mL): minimal Specimens/Packing Specimens Removed none Packing: none NATE GEE MD May 25, 2017 07:32
[2017-05-25 07:35] LABS: PROTHROMBIN TIME PATIENT 13.2 SEC (12.2-14.7)
[2017-05-25] MEDS ORDERED: PHENYLEPHRINE INJ 10 MG/ML (NEO-SYNEPHRINE 1%) ONE (08:20)
[2017-05-25] MEDS ORDERED: ATROPINE INJ 0.4 MG/ML SDV ONE (08:20)
[2017-05-25] MEDS ORDERED: ONDANSETRON 4 MG/2 ML (SDV) Z0FRAN IVP PRN (08:30)
[2017-05-25] MEDS ORDERED: MEPERIDINE (DEMEROL) INJ 50 MG/ML IVP PRN (08:30)
[2017-05-25] MEDS ORDERED: morphine INJ 10 MG/ML 1ML (SYR OR VIAL) IVP PRN (08:30)
[2017-05-25] MEDS ORDERED: NEOSTIGMINE (BLOXIVERZ ) 1 MG/1ML 10 ML VIAL ONE (08:48)
[2017-05-25] MEDS ORDERED: GLYCOPYRROLATE 0.2 MG/ML (ROBINUL) 2 ML VIAL ONE (08:48)
[2017-05-25 10:05] VITALS: BP 95/44
[2017-05-25 10:35] VITALS: BP 106/62
[2017-05-25 11:05] VITALS: BP 112/70
[2017-05-25 11:50] VITALS: BP 112/70
--- NOTE | 2017-05-25 16:05 | OPERATIVE REPORT ---
DATE OF SERVICE: 05/25/2017 PREOPERATIVE DIAGNOSES: 1. Right shoulder rotator cuff tear. 2. Right shoulder superior labrum anterior and posterior tear. 3. Right shoulder labral tear. POSTOPERATIVE DIAGNOSES: 1. Right shoulder rotator cuff tear. 2. Right shoulder superior labrum anterior and posterior tear. 3. Right shoulder labral tear. PROCEDURES: 1. Right shoulder arthroscopic biceps tenotomy. 2. Right shoulder arthroscopic labral debridement. 3. Right shoulder arthroscopic acromioplasty. 4. Right shoulder open rotator cuff repair. SURGEON: Eliseo Gee MD. SHELL SIEVE OPERATOR: VIRGINIA Cabrera, who assisted throughout the procedure and closed the incisions. ANESTHESIA: General endotracheal plus interscalene nerve block by . ESTIMATED BLOOD LOSS: 100 mL. DRAINS: None. COMPLICATIONS: None. POSTOPERATIVE PLAN: Sling and passive range of motion for 4 weeks. The patient was transported to the recovery room awake and in stable condition. STATEMENT OF MEDICAL NECESSITY: The patient is a 66-year-old right hand dominant crutch dependent ambulator with complaints of right shoulder pain and weakness. She had a positive Neer's positive Kwong sign. She has undergone treatment with extensive conservative measures including home exercise program, injections, anti-inflammatories and activity modifications without relief and due to functional impairment, an MRI was obtained which revealed a full-thickness supraspinatus tear as well as a SLAP tear. Due to failure to improve with conservative measures, the patient elected to proceed with surgical intervention. Examination under anesthesia revealed forward elevation 170 degrees, external rotation of 85 degrees internal rotation of 70 degrees. Arthroscopic findings demonstrated a 3 x 4 cm retracted supraspinatus tear which involved the superior aspect of the subscapularis and infraspinatus. There was a type 2 SLAP tear with a flap tear of the anterior labrum at the 3 o'clock position. Subacromial space demonstrated moderate bursitis with slope in the anterolateral acromion. PROCEDURE: After risks and benefits of the procedure were discussed and questions were answered, an informed consent was signed and placed on chart. The operative site was confirmed in the preoperative holding area initialed by the surgeon. The patient transported to the operating room after adequate levels of general plus regional anesthetic were obtained. A timeout was called confirming the site. The right upper extremity was prepped and draped in the usual sterile fashion. After performing an examination under anesthesia, the shoulder joint was injected with 20 mL of fluid. A standard posterior portal was placed under direct visualization, anterior portal was created in the interval between the biceps, subscap bursa and glenoid. The biceps anchor was released and the stump was debrided with shaver. The anterior labral flap was debrided with shaver as well. The scope was then redirected into the subacromial space. A lateral portal was created. Bursectomy was performed and the acromion was planed to a flat type 1 acromion. The lateral portal was then extended. The deltoid was split in line with its fibers leaving attached to the acromion. The posterior and anterior leafs of the tear were mobilized as best as possible and brought superiorly. This left approximately 2 x 2 cm gap superiorly. A modified Fermín Kenji repair was performed posteriorly and anteriorly. No undue tension was noted through the repair site. Wound was copiously irrigated. The deltoid was repaired in side to side fashion using #2 FiberWire in [id number] interrupted fashion. The wound was further irrigated. A #2-0 Vicryl was used to reapproximate the subcutaneous tissue. The skin was closed with #4-0 nylon in running alternating horizontal mattress fashion. The portal sites were closed with #4-0 nylon in simple interrupted fashion. The shoulder was injected with Duramorph. Port sites were infiltrated with plain Marcaine. A soft dressing and sling were applied. The patient transferred to recovery awake and stable condition. Job ID: [id number] DocumentID: [id number] Dictated Date: 05/25/2017 09:07:03 Licensed Aircraft Maintenance Engineer Date: 05/25/2017 16:05:27 Dictated By: ELISEO GEE MD
== END 2017-05-25 11:50 | disposition home or self-care (01) ==
LOC: SDC 06:38
PROVIDERS: ATTEND Orthopaedic Surgery
DX: M75.101 Unspecified rotator cuff tear or rupture of right shoulder, not specified as traumatic (principal); S43.431A Superior glenoid labrum lesion of right shoulder, initial encounter; E11.9 Type 2 diabetes mellitus without complications; Z86.718 Personal history of other venous thrombosis and embolism; I10 Essential (primary) hypertension; I34.1 Nonrheumatic mitral (valve) prolapse; Z79.899 Other long term (current) drug therapy; Z79.84 Long term (current) use of oral hypoglycemic drugs; Z79.82 Long term (current) use of aspirin; Z79.01 Long term (current) use of anticoagulants; Z87.891 Personal history of nicotine dependence; Z88.8 Allergy status to other drugs, medicaments and biological substances; E66.01 Morbid (severe) obesity due to excess calories; K21.9 Gastro-esophageal reflux disease without esophagitis; E78.5 Hyperlipidemia, unspecified; Z68.41 Body mass index [BMI] 40.0-44.9, adult
CPT/HCPCS: 36415; 82962; 85610

== ENCOUNTER → 2017-06-28 | Outpatient (CLI) | payer MEDICAID ==
--- NOTE | 2017-06-28 14:23 | Diagnostic Imaging Report ---
INDICATION: Endometrial neoplasia. FINDINGS: Transabdominal and transvaginal pelvic sonography was performed. The uterus measures 6.7 x 4.4 x 3.5 cm. The endometrium is 11 mm in thickness. There is a left uterine fibroid present measuring 1.9 x 1.5 x 1.7 cm. No other myometrial masses are seen. The ovaries are not visualized and are obscured by bowel gas. No adnexal mass or free fluid is seen. IMPRESSION: 1. Endometrial thickening up to 11 mm. 2. Stable uterine fibroid. 3. Nonvisualized ovaries. Dictated by: Dictated on workstation # [id number]
== END ==
LOC: RAD 12:46
PROVIDERS: ATTEND Nurse Practitioner
DX: D25.9 Leiomyoma of uterus, unspecified (principal); I82.509 Chronic embolism and thrombosis of unspecified deep veins of unspecified lower extremity; N85.02 Endometrial intraepithelial neoplasia [EIN]; Z68.41 Body mass index [BMI] 40.0-44.9, adult
CPT/HCPCS: 76830; 76856

== ENCOUNTER 2017-08-23 13:45 | Outpatient (RCR) | payer MEDICAID | END 2017-08-24 | disposition home or self-care (01) | PROVIDERS: ATTEND Orthopaedic Surgery | DX: M75.111 Incomplete rotator cuff tear or rupture of right shoulder, not specified as traumatic (principal) ==

== ENCOUNTER → 2017-10-11 | Outpatient (CLI) | payer MEDICAID, OTHER ==
[~2017-10-11] MED LIST changes: -METF1000 PO; +METF10002 PO
--- NOTE | 2017-10-11 19:04 | Diagnostic Imaging Report ---
INDICATION: Routine screening. COMPARISON: Comparison is made with prior studies from 06/17/2016 and 06/02/2015. TECHNIQUE: 2D and 3D bilateral screening mammography was performed with computer-aided detection (CAD) system. FINDINGS: Scattered fibroglandular densities are identified bilaterally. There are scattered benign calcifications bilaterally. No spiculated mass or malignant appearing microcalcifications are seen. The axillae are unremarkable. IMPRESSION: No mammographic features suspicious for malignancy are identified. ACR BI-RADS Category 2: Benign findings. Result letter will be mailed to the patient. Note: At least 10% of breast cancer is not imaged by mammography. Dictated by: Dictated on workstation # [id number]
== END ==
LOC: RAD 14:34
PROVIDERS: ATTEND Family Medicine
DX: Z12.31 Encounter for screening mammogram for malignant neoplasm of breast (principal)
CPT/HCPCS: 77067

== ENCOUNTER 2017-11-11 10:02 | Outpatient (RCR) | payer MEDICAID | END 2017-11-11 13:03 | disposition home or self-care (01) | PROVIDERS: ATTEND Orthopaedic Surgery | DX: M75.111 Incomplete rotator cuff tear or rupture of right shoulder, not specified as traumatic (principal) ==

== ENCOUNTER 2017-12-20 05:33 | Outpatient (CLI) | payer MEDICARE, MEDICAID ==
[~2017-12-20] VITALS: Ht 177.8 cm; Wt 141.5 kg
[2017-12-20] MEDS ORDERED: CHOL10007 PO (14:06)
[2017-12-20] MEDS ORDERED: NITR-65 PO (14:06)
== END 2017-12-20 14:20 | disposition home or self-care (01) ==
LOC: PREOP 05:33
PROVIDERS: ATTEND Obstetrics & Gynecology
DX: Z01.818 Encounter for other preprocedural examination (principal)

== ENCOUNTER 2017-12-28 13:00 | Outpatient (RCR) | payer MEDICARE, MEDICAID ==
[~2017-12-28 13:00] MED LIST changes: +CHOL10007 PO; +NITR-65 PO
== END 2017-12-28 14:33 | disposition home or self-care (01) ==
PROVIDERS: ATTEND Orthopaedic Surgery
DX: M75.111 Incomplete rotator cuff tear or rupture of right shoulder, not specified as traumatic (principal)

== ENCOUNTER 2017-12-29 06:14 | Day surgery (SDC) | payer MEDICARE, MEDICAID ==
[~2017-12-29] VITALS: Ht 177.8 cm; Wt 141.5 kg
[2017-12-29] MEDS ORDERED: LACTATED RINGERS 1,000 ML IV PRN (06:28)
[2017-12-29] MEDS: LACTATED RINGERS 1,000 ML IV PRN ×2 (06:40→07:50)
[2017-12-29] MEDS ORDERED: BUPIVACAINE 0.25% 30 ML (SENSORCAINE) VIAL ONE (06:48)
[2017-12-29 06:50] VITALS: BP 130/75
--- NOTE | 2017-12-29 07:07 | Progress Note-Pre Operative ---
Pre-Operative Progress Note H&P Reviewed The H&P was reviewed, patient examined and no changes noted. Date Seen by Provider: Dec 29, 2017 Time Seen by Provider: 07:00 Date H&P Reviewed: Dec 29, 2017 Time H&P Reviewed: 06:55 Pre-Operative Diagnosis: Endometrial hyperplasia, BMI > 40 NATE WU DO Dec 29, 2017 7:07 am
[2017-12-29 07:11] LABS: BASOPHILS % (AUTO) 0 % (0-10); EOSINOPHILS # (AUTO) 0.6 10^3/uL (0.0-0.3); EOSINOPHILS % (AUTO) 8 % (0-10); HEMATOCRIT 39 % (35-52); LYMPHOCYTES # (AUTO) 2.8 X 10^3 (1.0-4.0); LYMPHOCYTES % (AUTO) 37 % (12-44); MEAN CORPUSCULAR HEMOGLOBIN 29 PG (25-34); MEAN CORPUSCULAR HGB CONC 34 G/DL (32-36); MEAN CORPUSCULAR VOLUME 88 FL (80-99); MEAN PLATELET VOLUME 10.3 FL (7.4-10.4); MONOCYTES # (AUTO) 0.9 X 10^3 (0.0-1.0); MONOCYTES % (AUTO) 11 % (0-12); NEUTROPHILS # (AUTO) 3.2 X 10^3 (1.8-7.8); NEUTROPHILS % (AUTO) 43 % (42-75); PLATELET COUNT 263 10^3/uL (130-400); RED BLOOD COUNT 4.42 10^6/uL (4.35-5.85); RED CELL DISTRIBUTION WIDTH 14.9 % (10.0-14.5); WHITE BLOOD COUNT 7.4 10^3/uL (4.3-11.0)
[2017-12-29] MEDS ORDERED: fentaNYL INJECTION 100 MCG/2 ML AMP ONE (07:11)
[2017-12-29] MEDS ORDERED: MIDAZOLAM 2 MG/2 ML (VERSED) VIAL ONE (07:11)
[2017-12-29 07:27] LABS: INR 1.1 (0.8-1.4); PROTHROMBIN TIME PATIENT 13.8 SEC (12.2-14.7)
[2017-12-29] MEDS ORDERED: ONDANSETRON 4 MG/2 ML (SDV) Z0FRAN ONE (07:34)
[2017-12-29] MEDS ORDERED: LIDOCAINE PF 2% 5 ML (XYLOCAINE) VIAL ONE (07:34)
[2017-12-29] MEDS ORDERED: proPOfol 200 MG/20 ML (DIPRIVAN) VIAL IV ONE (07:34)
[2017-12-29] MEDS ORDERED: SEVOFLURANE (ULTANE) 15 ML INHAL SOLN ONE (07:54)
[2017-12-29] MEDS ORDERED: ONDANSETRON 4 MG/2 ML (SDV) Z0FRAN IVP PRN ×2 (08:00→08:15)
[2017-12-29] MEDS ORDERED: MEPERIDINE (DEMEROL) INJ 50 MG/ML IVP PRN (08:00)
[2017-12-29] MEDS ORDERED: morphine INJ 10 MG/ML 1ML (SYR OR VIAL) IVP PRN (08:00)
[2017-12-29] MEDS ORDERED: D5 LR IV SOLUTION 1,000 ML IV SCH (08:04)
--- NOTE | 2017-12-29 08:12 | Discharge Inst-Women's Service ---
Discharge Inst-Women's Serv Consults/Follow Up Additional Follow Up: Yes Orders/Referrals Dr. Wu in 4 weeks Diet Discharge Diet: Cardiac Diet Symptoms to Report to : Bleeding Excessive, Pain Increased, Fever Over 101 Degrees F, Vaginal Bleeding Increase, Questions/Concerns NATE WU DO Dec 29, 2017 08:12
[2017-12-29 08:47] VITALS: BP 125/67
--- NOTE | 2017-12-29 09:06 | Anesthesia-General Post-Op ---
General Patient Condition Mental Status/LOC: Same as Preop Cardiovascular: Satisfactory Nausea/Vomiting: Absent Respiratory: Satisfactory Pain: Controlled Complications: Absent Post Op Complications Complications None Follow Up Care/Instructions Patient Instructions None needed. Anesthesia/Patient Condition Patient Condition Patient is doing well, no complaints, stable vital signs, no apparent adverse anesthesia problems. No complications reported per nursing. [place] [facility] [place] FRIDA CHENEY CRNA Dec 29, 2017 09:06
[2017-12-29 09:17] VITALS: BP 132/72
[2017-12-29 09:47] VITALS: BP 135/63
[2017-12-29 10:25] VITALS: BP 130/75
--- NOTE | 2017-12-29 12:48 | OPERATIVE REPORT ---
DATE OF SERVICE: 12/29/2017 PREOPERATIVE DIAGNOSES: 1. A 67-year-old female with endometrial hyperplasia. 2. Morbid obesity. POSTOPERATIVE DIAGNOSES: 1. A 67-year-old female with endometrial hyperplasia. 2. Morbid obesity. PROCEDURES: D and C with a Mirena IUD placement. SURGEON: Nate Wu DO ANESTHESIA: LMA. ESTIMATED BLOOD LOSS: Minimal. URINE OUTPUT: 150 mL drained at the start of the procedure. SPECIMENS SENT: Endometrial curettings. FINDINGS: Grossly normal appearing vaginal mucosa and cervix. INDICATION FOR PROCEDURE: A 67-year-old female patient, who had previously been evaluated for postmenopausal bleeding and found to have simple hyperplasia with atypia. She was sent to [facility] in [place], who recommended a Mirena IUD placement. Due to the patient's multiple medical comorbidities, hysterectomy was not recommended. I discussed this with the patient in the preoperative consultation. All of her questions were answered. Risks of the procedure were discussed with the patient in detail as well as bridging of her anticoagulation, which was evaluated by Dr. Calvert, the smasher. We also discussed follow up for this, which she was agreeable to and a repeat sampling of the endometrium. After all of her questions were answered, consent was obtained and the patient was taken to the operating room. OPERATIVE REPORT IN DETAIL: Once in the operating room, anesthesia was found to be adequate. She was placed in dorsal lithotomy position, prepped and draped in normal sterile fashion. A weighted speculum was inserted in the patient's vagina. A right angle retractor was used to visualize the cervix, which was grasped with a long Allis clamp. I was then able to perform a paracervical block at 3 and 9 o'clock position using 0.25% Marcaine injection to 5 mL were used at each site. Care was taken to aspirate before injecting. I then gently sounded the uterine cavity depth, which was found to be approximately 7 cm. I then gently dilated the cervix using Hegar dilators and performed gentle curetting using a medium size endometrial curette. This tissue was sent as endometrial curettings. I then placed the Mirena IUD with a setting of 7 cm, deploying it at the uterine fundus and removing the introducer. The strings were then trimmed, approximately 3 to 4 cm outside the external cervical os. All other instruments were removed from the patient's vagina. The patient tolerated the procedure well and sent to recovery area in stable condition. Lap and sponge counts were correct at the end of the procedure. Instrument count was correct as well. Job ID: [id number] DocumentID: [id number] Dictated Date: 12/29/2017 10:46:20 Energy Efficient Site Manager Date: 12/29/2017 12:47:46 Dictated By: NATE WU DO
== END 2017-12-29 10:25 | disposition home or self-care (01) ==
LOC: SDC 06:14
PROVIDERS: ATTEND Obstetrics & Gynecology
DX: N85.02 Endometrial intraepithelial neoplasia [EIN] (principal); N95.0 Postmenopausal bleeding; E66.01 Morbid (severe) obesity due to excess calories; E11.9 Type 2 diabetes mellitus without complications; I10 Essential (primary) hypertension; F32.9 Major depressive disorder, single episode, unspecified; E78.5 Hyperlipidemia, unspecified; I48.91 Unspecified atrial fibrillation; K21.9 Gastro-esophageal reflux disease without esophagitis; Z68.42 Body mass index [BMI] 45.0-49.9, adult; Z87.891 Personal history of nicotine dependence; I47.1 Supraventricular tachycardia; Z79.899 Other long term (current) drug therapy; Z79.84 Long term (current) use of oral hypoglycemic drugs; Z86.718 Personal history of other venous thrombosis and embolism
CPT/HCPCS: 36415; 82962; 85025; 85610; 86850; 86900; 86901; 87081

== ENCOUNTER → 2018-01-13 | Outpatient (CLI) | payer MEDICARE, MEDICAID ==
[~2018-01-13] MED LIST changes: +METF-399 PO; -METF10002 PO
[2018-01-13 11:24] LABS: ALANINE AMINOTRANSFERASE 28 U/L (0-55); ALKALINE PHOSPHATASE 173 U/L (40-136); BILIRUBIN,TOTAL 0.3 MG/DL (0.1-1.0); BUN/CREATININE RATIO 23; CALCIUM 9.6 MG/DL (8.5-10.1); CARBON DIOXIDE 29 MMOL/L (21-32); CHLORIDE 103 MMOL/L (98-107); CHOLESTEROL 175 MG/DL (< 200); CREATININE SERUM 0.69 MG/DL (0.60-1.30); GFR ESTIMATED > 60; GLUCOSE 121 MG/DL (70-105); HDL CHOLESTEROL 68 MG/DL (40-60); POTASSIUM 4.7 MMOL/L (3.6-5.0); SODIUM 140 MMOL/L (135-145); TOTAL PROTEIN 7.6 GM/DL (6.4-8.2); TRIGLYCERIDES 121 MG/DL (<150); VLDL CHOLESTEROL 24 MG/DL (5-40)
== END ==
LOC: LAB 10:47
PROVIDERS: ATTEND Physician Assistant
DX: I10 Essential (primary) hypertension (principal); E78.2 Mixed hyperlipidemia
CPT/HCPCS: 36415; 80053; 80061

== ENCOUNTER 2018-01-18 10:41 | Emergency (ER) | payer MEDICARE, MEDICAID ==
[~2018-01-18] VITALS: Ht 180.3 cm; Wt 140.6 kg
[2018-01-18] MEDS ORDERED: ASPIRIN 81 MG CHEW (CHILDREN'S ASA) PO ONE (10:45)
--- NOTE | 2018-01-18 11:00 | ED Chest Pain ---
General Chief Complaint: Cardiac/General Problems Stated Complaint: POSS AFIB Source: patient, family Exam Limitations: no limitations History of Present Illness Date Seen by Provider: Jan 18, 2018 Time Seen by Provider: 10:57 Initial Comments To ER with c/o possible a-fib. She reports dyspnea, palpitations and general malaise and fatigue. She has had these symptoms since her D&C for endometrial hyperplasia on December 29. Since then she has been feeling this way but more significantly so since last night. She does have a remote history of paroxysmal A. fib. She also has a history of DVT right leg. She is on warfarin, since having the D&C she has been evaluated with a CT angio of chest which was unremarkable. She denies fevers. She denies chest pain but states that maybe she had some chest pain last night. Timing/Duration: constant, getting worse Severity/Quality: moderate ASA po SAND CUTTER OPERATOR: No NTG SL SAND CUTTER OPERATOR: No Associated Symptoms: fatigue; No nausea/vomiting; shortness of breath Allergies and Home Medications Allergies Coded Allergies: amylase (Verified Allergy, Unknown, 08/07/15) black cohosh (Verified Allergy, Unknown, 08/07/15) cellulase (Verified Allergy, Unknown, 08/07/15) glyburide (Verified Allergy, Unknown, 08/07/15) isosorbide (Verified Allergy, Unknown, 08/07/15) lipase (Verified Allergy, Unknown, 08/07/15) protease (Verified Allergy, Unknown, 08/07/15) Home Medications Acetaminophen 500 Mg Tablet, 1,000 MG PO Q6H PRN for PAIN, (Reported) TAKES 2 (500MG) TABLETS Aspirin 81 Mg Tablet.dr, 81 MG PO DAILY, (Reported) Atenolol 50 Mg Tablet, 50 MG PO BID, (Reported) Atorvastatin Calcium 40 Mg Tablet, 20 MG PO HS, (Reported) take 1/2 of 40mg tab Calcium Carbonate/Vitamin D3 1 Each Tablet, 2 TAB PO DAILY, (Reported) Carboxymethylcellulose Sodium 1 Each Droperette, 1 EACH OP BID, (Reported) Cholecalciferol (Vitamin D3) 1,000 Unit Capsule, 1,000 UNIT PO BID, (Reported) Citalopram Hydrobromide 40 Mg Tablet, 40 MG PO DAILY, (Reported) Cyclosporine 1 Each Droperette, 1 EACH OU BID, (Reported) Etodolac 500 Mg Tablet, 500 MG PO BID, (Reported) Gabapentin 400 Mg Capsule, 800 MG PO TID, (Reported) take 2 (400mg) tabs Glucosamine/D3/Boswellia Nellie 1 Each Tablet, 1 EACH PO BID, (Reported) Insulin Aspart 300 Units/3 Ml Solution, 7 UNITS SQ BREAKFAST & LUNCH, (Reported) Insulin Aspart 300 Units/3 Ml Solution, 8 UNITS SQ WITH EVENING MEAL, (Reported) Insulin Glargine,Hum.rec.anlog 100 Unit/1 Ml Vial, 18 UNIT SQ HS, (Reported) Lisinopril 5 Mg Tablet, 5 MG PO BID, (Reported) Metformin HCl 1,000 Mg Tablet, 1,000 MG PO BID, (Reported) Mineral Oil/Petrolatum,White 3.5 Gm Oint...g., OU HS, (Reported) Multivitamin with Minerals 1 Each Tablet, 1 TAB PO DAILY, (Reported) Nitrofurantoin Monohyd/M-Cryst 100 Mg Capsule, 100 MG PO HS, (Reported) Oxybutynin Chloride 10 Mg Tab.er.24, 20 MG PO DAILY, (Reported) take 2 (10mg) tab Polyvinyl Alcohol/Povidone 15 Ml Drops, 1 DROP OU QID PRN for DRY EYES, ( Reported) Primidone 250 Mg Tablet, 125 MG PO BID, (Reported) Ranitidine HCl 150 Mg Tablet, 150 MG PO BID PRN for HEARTBURN, (Reported) Solifenacin Succinate 5 Mg Tablet, 5 MG PO DAILY, (Reported) Warfarin Sodium 2.5 Mg Tablet, 2.5 MG PO DAILY@1800, (Reported) MON,TUE,NITZA,TUE, SAT Warfarin Sodium 2.5 Mg Tablet, 1.25 MG PO TUE, TUE, (Reported) Patient Home Medication List Home Medication List Reviewed: Yes Review of Systems Review of Systems Constitutional: see HPI; No chills, No fever EENTM: No Symptoms Reported Respiratory: See HPI, Shortness of Air Cardiovascular: See HPI, Chest Pain, Irregular Heart Rate, Lightheadedness, Palpitations Gastrointestinal: No Symptoms Reported Genitourinary: No Symptoms Reported Musculoskeletal: no symptoms reported Skin: no symptoms reported Psychiatric/Neurological: No Symptoms Reported Endocrine: No Symptoms Reported Past Xnhbueu-Saxxnm-Udvgwc Hx Patient Social History Type Used: Cigarettes Former Smoker, Quit: May 18, 1980 Recent Foreign Travel: No Contact w/Someone Who Travel: No Recent Hopitalizations: No Immunizations Up To Date Tetanus Booster (TDap): Unknown Date of Pneumonia Vaccine: Aug 07, 2010 Date of Influenza Vaccine: Feb 28, 2017 Seasonal Allergies Seasonal Allergies: No Past Medical History Eye Surgery, Orthopedic Currently Using CPAP: No Atrial Fibrillation, Chronic Edema/Swelling, Deep Vein Thrombosis, High Cholesterol, Hypertension Neuropathy 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 Disorders: Yes Female 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 Disorders: Denies Sexually Transmitted Disease: No HIV/AIDS: No UTI-Chronic Gastroesophageal Reflux, Chronic Constipation Degenerate Disk Disease, Arthritis, Chronic Back Pain Diabetes, Insulin dep Cataract Loss of Vision: Bilateral Hearing Impairment: Denies Depression Adverse Reaction/Blood Tranf: No (N/A) Family Medical History Cardiovascular disease 19 FATHER 19 MOTHER Colon cancer 19 MOTHER Diabetes mellitus 19 MOTHER G8 BROTHER G8 SISTER Physical Exam Vital Signs Vital Signs - First Documented 01/18/18 10:48 Temp 95.6 Pulse 73 Resp 20 B/P (MAP) 120/60 (80) Pulse Ox 98 O2 Delivery Room Air Capillary Refill : Height, Weight, BMI Height: 5'10.00" Weight: 312lbs. 0.0oz. 141.004112to; 44.8 BMI Method:Stated General Appearance: No Apparent Distress, WD/WN, Obese, Other (at the time of arrival to ER she has sinus rhythm first-degree AV block without ectopy. She states "well it doesn't feel like it is a normal rhythm") HEENT: PERRL/EOMI, TMs Normal Neck: Full Range of Motion, Normal Inspection Respiratory: Normal Breath Sounds, No Accessory Muscle Use, No Respiratory Distress Cardiovascular: Regular Rate, Rhythm, Normal Peripheral Pulses Gastrointestinal: Normal Bowel Sounds, Non Tender, Soft Extremity: Normal Capillary Refill, Normal Inspection Neurologic/Psychiatric: Alert, Oriented x3 Skin: Normal Color, Warm/Dry Progress/Results/Core Measures Results/Orders Lab Results Laboratory Tests Test 01/18/18 10:55 Range/Units White Blood Count 6.7 4.3-11.0 10^3/uL Red Blood Count 4.75 4.35-5.85 10^6/uL Hemoglobin 13.9 11.5-16.0 G/DL Hematocrit 42 35-52 % Mean Corpuscular Volume 87 80-99 FL Mean Corpuscular Hemoglobin 29 25-34 PG Mean Corpuscular Hemoglobin Concent 34 32-36 G/DL Red Cell Distribution Width 15.1 H 10.0-14.5 % Platelet Count 294 130-400 10^3/uL Mean Platelet Volume 10.1 7.4-10.4 FL Neutrophils (%) (Auto) 51 42-75 % Lymphocytes (%) (Auto) 35 12-44 % Monocytes (%) (Auto) 7 0-12 % Eosinophils (%) (Auto) 7 0-10 % Basophils (%) (Auto) 0 0-10 % Neutrophils # (Auto) 3.4 1.8-7.8 X 10^3 Lymphocytes # (Auto) 2.3 1.0-4.0 X 10^3 Monocytes # (Auto) 0.5 0.0-1.0 X 10^3 Eosinophils # (Auto) 0.5 H 0.0-0.3 10^3/uL Basophils # (Auto) 0.0 0.0-0.1 10^3/uL Prothrombin Time 25.0 H 12.2-14.7 SEC INR Comment 2.3 H 0.8-1.4 Activated Partial Thromboplast Time 36 H 24-35 SEC Sodium Level 138 135-145 MMOL/L Potassium Level 4.4 3.6-5.0 MMOL/L Chloride Level 103 98-107 MMOL/L Carbon Dioxide Level 24 21-32 MMOL/L Anion Gap 11 5-14 MMOL/L Blood Urea Nitrogen 19 H 7-18 MG/DL Creatinine 0.77 0.60-1.30 MG/DL Estimat Glomerular Filtration Rate > 60 BUN/Creatinine Ratio 25 Glucose Level 221 H 70-105 MG/DL Calcium Level 9.4 8.5-10.1 MG/DL Corrected Calcium 9.6 8.5-10.1 MG/DL Magnesium Level 1.9 1.8-2.4 MG/DL Total Bilirubin 0.3 0.1-1.0 MG/DL Aspartate Amino Transf (AST/SGOT) 17 5-34 U/L Alanine Aminotransferase (ALT/SGPT) 28 0-55 U/L Alkaline Phosphatase 179 H 40-136 U/L Myoglobin 34.5 10.0-92.0 NG/ML Troponin I < 0.30 <0.30 NG/ML B-Type Natriuretic Peptide 234.5 H <100.0 PG/ML Total Protein 7.1 6.4-8.2 GM/DL Albumin 3.7 3.2-4.5 GM/DL My Orders Orders - ADONAY DUARTE APRN Cbc With Automated Diff (01/18/18 10:45) Magnesium (01/18/18 10:45) Chest 1 View, Ap/Pa Only (01/18/18 10:45) Ekg Tracing (01/18/18 10:45) Cardiac Profile 1 (01/18/18 10:45) Comprehensive Metabolic Panel (01/18/18 10:45) Myoglobin Serum (01/18/18 10:45) Protime With Inr (01/18/18 10:45) Partial Thromboplastin Time (01/18/18 10:45) O2 (01/18/18 10:45) Monitor-Rhythm Ecg Trace Only (01/18/18 10:45) Lipid Panel (01/19/18 06:00) Aspirin Chewable Tablet (Baby Aspirin Ch (01/18/18 10:45) Saline Lock/Iv-Start (01/18/18 10:45) BNP (01/18/18 10:55) Medications Given in ED Current Medications Medications Dose Ordered Sig/Ashley Route Start Time Stop Time Status Last Admin Dose Admin Aspirin 324 mg ONCE ONCE PO 01/18/18 10:45 01/18/18 10:49 DC 01/18/18 11:02 324 MG Vital Signs/I&O 01/18/18 01/18/18 10:48 11:02 Temp 95.6 95.6 Pulse 73 Resp 20 B/P (MAP) 120/60 (80) Pulse Ox 98 O2 Delivery Room Air Diagnostic Imaging Diagonstic Imaging: Xray Plain Films/CT/US/NM/MRI: chest Comments NAME: ALFREDO KAUFMAN [facility] REC#: [id number] PT STATUS: REG ER : 1950 PHYSICIAN: ADONAY DUARTE APRN ADMIT DATE: 01/18/18/ER Draft Date of Exam:01/18/18 CHEST 1 VIEW, AP/PA ONLY Clinical indication: Patient states that she was in A-fib today and having trouble with shortness of breath for the past 3 weeks. Exam: Portable chest x-ray upright view. Comparisons: Chest x-ray dated 02/11/2016 Findings: Nipple shadow again seen overlying the left lower lung field. Lungs/pleura: Lungs are clear. There is no pneumothorax. There is no pleural effusion. Mediastinum: Unremarkable. Pulmonary vasculature: Unremarkable. Heart: Heart size within normal limits for portable projection. Bones/extrathoracic soft tissue: Unremarkable. Impression: There is no radiographic evidence of acute cardiopulmonary process. Dictated on workstation # [id number] Dict: 01/18/18 1110 Trans: 01/18/18 1115 [facility] [id number] Interpreted by: KITTY ABREU MD Electronically signed by: Departure Communication (Admissions) Spoke with Dr. Calvert. Patient remains in sinus rhythm without ectopy. Her INR is therapeutic. She certainly has CT angiogram the outpatient setting. No PE. Anxiety is a possibility, although discussed this with her. Impression Primary Impression: Dyspnea Additional Impression: Palpitations Disposition: HOME, SELF-CARE Condition: Stable Departure-Patient Inst. Decision time for Depature: 11:42 Referrals: DELIA TRIANA MD (PCP/Family) Primary Care Physician Patient Instructions: Palpitations (DC) Add. Discharge Instructions: 1. Follow-up with her regular doctor next week 2. Return to ER for any concerns All discharge instructions reviewed with patient and/or family. Voiced understanding. Copy Copies To 1: DELIA TRIANA MD; CHARLY CALVERT MD, PETER J APRN Jan 18, 2018 11:00
[2018-01-18 11:08] LABS: BASOPHILS % (AUTO) 0 % (0-10); EOSINOPHILS # (AUTO) 0.5 10^3/uL (0.0-0.3); EOSINOPHILS % (AUTO) 7 % (0-10); HEMATOCRIT 42 % (35-52); HEMOGLOBIN 13.9 G/DL (11.5-16.0); LYMPHOCYTES # (AUTO) 2.3 X 10^3 (1.0-4.0); LYMPHOCYTES % (AUTO) 35 % (12-44); MEAN CORPUSCULAR HEMOGLOBIN 29 PG (25-34); MEAN CORPUSCULAR HGB CONC 34 G/DL (32-36); MEAN CORPUSCULAR VOLUME 87 FL (80-99); MEAN PLATELET VOLUME 10.1 FL (7.4-10.4); MONOCYTES # (AUTO) 0.5 X 10^3 (0.0-1.0); MONOCYTES % (AUTO) 7 % (0-12); NEUTROPHILS # (AUTO) 3.4 X 10^3 (1.8-7.8); NEUTROPHILS % (AUTO) 51 % (42-75); PLATELET COUNT 294 10^3/uL (130-400); RED BLOOD COUNT 4.75 10^6/uL (4.35-5.85); RED CELL DISTRIBUTION WIDTH 15.1 % (10.0-14.5); WHITE BLOOD COUNT 6.7 10^3/uL (4.3-11.0)
--- NOTE | 2018-01-18 11:15 | Diagnostic Imaging Report ---
Clinical indication: Patient states that she was in A-fib today and having trouble with shortness of breath for the past 3 weeks. Exam: Portable chest x-ray upright view. Comparisons: Chest x-ray dated 02/11/2016 Findings: Nipple shadow again seen overlying the left lower lung field. Lungs/pleura: Lungs are clear. There is no pneumothorax. There is no pleural effusion. Mediastinum: Unremarkable. Pulmonary vasculature: Unremarkable. Heart: Heart size within normal limits for portable projection. Bones/extrathoracic soft tissue: Unremarkable. Impression: There is no radiographic evidence of acute cardiopulmonary process. Dictated by: Dictated on workstation # [id number]
[2018-01-18 11:20] LABS: INR 2.3 (0.8-1.4)
[2018-01-18 11:26] LABS: ALANINE AMINOTRANSFERASE 28 U/L (0-55); ALBUMIN 3.7 GM/DL (3.2-4.5); ALKALINE PHOSPHATASE 179 U/L (40-136); BILIRUBIN,TOTAL 0.3 MG/DL (0.1-1.0); BUN/CREATININE RATIO 25; CALCIUM 9.4 MG/DL (8.5-10.1); CARBON DIOXIDE 24 MMOL/L (21-32); CHLORIDE 103 MMOL/L (98-107); CREATININE SERUM 0.77 MG/DL (0.60-1.30); GFR ESTIMATED > 60; GLUCOSE 221 MG/DL (70-105); MAGNESIUM 1.9 MG/DL (1.8-2.4); POTASSIUM 4.4 MMOL/L (3.6-5.0); SODIUM 138 MMOL/L (135-145); TOTAL PROTEIN 7.1 GM/DL (6.4-8.2)
[2018-01-18 11:32] LABS: MYOGLOBIN SERUM 34.5 NG/ML (10.0-92.0)
[2018-01-18 12:23] VITALS: BP 116/75
== END 2018-01-18 12:23 | disposition home or self-care (01) ==
LOC: EDUNIT# 10:41 → ER 10:43
DX: R06.00 Dyspnea, unspecified (principal); R00.2 Palpitations; I48.91 Unspecified atrial fibrillation; E78.00 Pure hypercholesterolemia, unspecified; K21.9 Gastro-esophageal reflux disease without esophagitis; E11.42 Type 2 diabetes mellitus with diabetic polyneuropathy; F32.9 Major depressive disorder, single episode, unspecified; I10 Essential (primary) hypertension; Z87.19 Personal history of other diseases of the digestive system; Z80.0 Family history of malignant neoplasm of digestive organs; Z82.49 Family history of ischemic heart disease and other diseases of the circulatory system; Z87.440 Personal history of urinary (tract) infections; Z88.8 Allergy status to other drugs, medicaments and biological substances; Z86.718 Personal history of other venous thrombosis and embolism; Z79.82 Long term (current) use of aspirin; Z79.4 Long term (current) use of insulin; Z79.01 Long term (current) use of anticoagulants; Z87.891 Personal history of nicotine dependence
CPT/HCPCS: 36415; 71045; 80053; 83735; 83874; 83880; 84484; 85025; 85610; 85730; 93005; 93041

== ENCOUNTER → 2018-02-09 | Outpatient (CLI) | payer MEDICARE, MEDICAID ==
--- NOTE | 2018-02-09 10:35 | Diagnostic Imaging Report ---
PROCEDURE: MRI left upper extremity without contrast. TECHNIQUE: Multiplanar, multisequence non contrast-enhanced MRI of the left upper extremity was accomplished. INDICATION: Injury, shoulder pain There are no previous studies available for comparison. On the T2 fat-saturated coronal series there is a prominent area of increased signal within the substance midportion of the rotator cuff. There does seem to be interruption of the bursal aspect of the rotator cuff in this region, I do suspect that the rotator cuff is partially torn. There are also small rim-rent tears near the anterior insertion of the rotator cuff. The supraspinatus muscle, however, is not retracted or bunched. There is hypertrophy of the acromioclavicular joint and this does result in narrowing of the outlet for the supraspinatus muscle. There is also some fluid in the subacromial and subdeltoid bursa indicating that there is an element of bursitis present. The biceps tendon is intact as is the subscapularis tendon. However, there is considerable soft tissue edema about the subscapularis tendon as it courses anterior to the glenoid. There is also a small tear of the anterior labrum and the labrum itself seems thinned. I do suspect that the labrum is torn on a degenerative basis. There is a small joint effusion present. There is no abnormal signal arising from the osseous structures to suggest bone edema or a fracture. There is cystic degeneration of the greater tuberosity, however. IMPRESSION: 1. There is a partial tear of the midportion of the rotator cuff. There are also small rim-rent tears along the anterior insertion of the rotator cuff. The supraspinatus muscle, however, is not retracted or bunched. 2. There is hypertrophy of the acromioclavicular joint and this does result in narrowing of the outlet for the supraspinatus muscle. The fluid in the subacromial and subdeltoid bursa also suggests that there is an element of bursitis present. 3. The labrum is torn anteriorly and centrally on a degenerative basis. 4. There is edema/inflammation about the subscapularis tendon although the tendon itself appears to be intact. 5. There is no acute bony abnormality noted. Dictated by: Dictated on workstation # [id number]
== END ==
LOC: RAD 01-30 12:01
PROVIDERS: ATTEND Orthopaedic Surgery
DX: S49.92XA Unspecified injury of left shoulder and upper arm, initial encounter (principal); S46.012A Strain of muscle(s) and tendon(s) of the rotator cuff of left shoulder, initial encounter; M25.812 Other specified joint disorders, left shoulder; M24.112 Other articular cartilage disorders, left shoulder
CPT/HCPCS: 73221

== ENCOUNTER → 2018-02-27 | Outpatient (CLI) | payer MEDICARE, MEDICAID ==
--- NOTE | 2018-02-27 17:09 | Diagnostic Imaging Report ---
INDICATION: Tobaccoism. EXAM: PA and lateral chest FINDINGS: Heart size and pulmonary vascularity are normal. The lungs are clear. There are no effusions or pneumothoraces. IMPRESSION: Negative chest. Dictated by: Dictated on workstation # [id number]
== END ==
LOC: RAD 15:46
PROVIDERS: ATTEND Nurse Practitioner Family
DX: R06.02 Shortness of breath (principal); Z86.718 Personal history of other venous thrombosis and embolism; Z87.891 Personal history of nicotine dependence
CPT/HCPCS: 71046

== ENCOUNTER → 2018-03-08 | Outpatient (CLI) | payer MEDICARE, MEDICAID ==
[2018-02-27 16:40] LABS: ABG BASE EXCESS 1.7 MMOL/L (-2.5-2.5); ABG OXYGEN SATURATION 98 % (94-100); ABG PCO2 38 MMHG (35-45); ABG PH 7.44 (7.37-7.43); ABG PO2 89 MMHG (79-93); ABG TCO2 26.9 MMOL/L (21.0-31.0)
[2018-02-27 16:41] LABS: ALLENS TEST POSITIVE; INSPIRED O2 ROOM AIR; VENTILATOR NO
[2018-02-27 16:42] LABS: PATIENT TEMP 96.8
[~2018-03-08] MED LIST changes: +RT-ALBUTEROL SULF 2.5 MG/3 ML PRE-MIX VIAL INH ONE
== END ==
LOC: RT 12:59
PROVIDERS: ATTEND Nurse Practitioner Family
DX: R06.02 Shortness of breath (principal); Z87.891 Personal history of nicotine dependence; Z86.718 Personal history of other venous thrombosis and embolism
CPT/HCPCS: 36600; 82805; 94060; 94726; 94729

== ENCOUNTER 2018-03-21 20:10 | Outpatient (CLI) | payer MEDICAID, MEDICARE ==
[~2018-03-21 20:10] MED LIST changes: -RT-ALBUTEROL SULF 2.5 MG/3 ML PRE-MIX VIAL INH ONE
== END 2018-03-22 06:54 | disposition home or self-care (01) ==
LOC: SLEEP 20:10
PROVIDERS: ATTEND Nurse Practitioner Family
DX: G47.33 Obstructive sleep apnea (adult) (pediatric) (principal); G47.10 Hypersomnia, unspecified; I47.1 Supraventricular tachycardia
CPT/HCPCS: 95810

== ENCOUNTER → 2018-10-30 | Outpatient (CLI) | payer OTHER, MEDICARE, MEDICAID ==
--- NOTE | 2018-10-31 13:12 | Diagnostic Imaging Report ---
INDICATION: Routine screening. COMPARISON: 10/11/2017 and 06/17/2016. TECHNIQUE: 2D and 3D bilateral screening mammography was performed with CAD. FINDINGS: Scattered fibroglandular densities are identified bilaterally. Benign calcifications in both breasts are again noted. No masses or malignant appearing microcalcifications are detected. The axillae are unremarkable. IMPRESSION: No mammographic features suspicious for malignancy are identified. ACR BI-RADS Category 2: Benign findings. Result letter will be mailed to the patient. Note: At least 10% of breast cancer is not imaged by mammography. Dictated by: Dictated on workstation # [id number]
== END ==
LOC: RAD 15:04
PROVIDERS: ATTEND Family Medicine
DX: Z12.31 Encounter for screening mammogram for malignant neoplasm of breast (principal)
CPT/HCPCS: 77067

== ENCOUNTER → 2018-11-01 | Day surgery (SDC) | payer MEDICARE, MEDICAID ==
[~2018-11-01] VITALS: Ht 177.8 cm; Wt 140.6 kg
[~2018-11-01] MED LIST changes: +CATHETER FLUSH 10 ML SYR IV PRN; +LIDOCAINE 1% INJ 20 ML 20 ML VIAL ONE; +REGADENOSON 0.4 MG/5 ML SYR (LEXISCAN) IV ONE
--- NOTE | 2018-11-01 12:40 | Implantation of Loop Monitor ---
Implant of Loop Monitior IMPLANTATION OF LOOP MONITOR REPORT DATE OF PROCEDURE: 11/01/18 PREOP DIAGNOSIS: paroxysmal atrial fibrillation POSTOP DIAGNOSIS: paroxysmal atrial fibrillation PROCEDURE DETAILS: The patient is a 67 female with history of paroxysmal atrial fibrillation requiring long-term surveillance. Therefore implantable loop recorder was discussed and agreed with the patient. Informed consent was taken. All risks and complications were discussed at length. The patient was draped and prepped in the usual sterile fashion. Local anesthesia was lidocaine, which was given in the substernal area close to the 4th intercostal space. Loop monitor [employer] was serial number [id number] was implanted according to the protocol. Steri- Strips were placed at the end of the procedure. There were no complications and the patient tolerated the procedure well. The device was interrogated with a voltage of. ANESTHESIA: Local anesthesia with lidocaine. COMPLICATIONS: None CONTRAST/FLUOROSCOPY: None CONCLUSION: successful implantation of loop recorder with no complication FINAL DIAGNOSIS: paroxysmal atrial fibrillation Palpitation Hypertension Hyperlipidemia CHARLY JOSE MD Nov 01, 2018 12:40
[2018-11-01 14:07] VITALS: BP 147/79
--- NOTE | 2018-11-01 14:44 | STRESS TEST ---
DATE OF SERVICE: 11/01/2018 LEXISCAN MYOVIEW STRESS TEST REPORT REFERRING PHYSICIAN: . Baseline heart rate is 81, baseline blood pressure 191/100. Baseline EKG is sinus rhythm with no ischemic changes. In summary, the patient was injected with 10.36 mCi of technetium-99 Myoview and the resting images were obtained. Then, the patient received 0.4 mg of Lexiscan followed by 29.9 mCi of technetium-99 Myoview. Throughout the test, there were no EKG changes. The resting and stress images were reviewed and compared in the short axis, horizontal long axis and vertical long axis views. Review of the images showed breast attenuation with typical female pattern, no significant ischemia or infarction was seen. SSS is 3, SDS 3, TID value 0.99. On the gated images, the left ventricle appeared to be normal size with normal contractility. Calculated ejection fraction 63%. CONCLUSION: 1. The patient tolerated Lexiscan well. 2. Breast attenuation with typical female pattern with no significant ischemia or infarction. 3. Normal left ventricular size with normal contractility. Calculated ejection fraction 63%. Job ID: [id number] DocumentID: [id number] Dictated Date: 11/01/2018 14:23:46 Evs Tech Date: 11/01/2018 14:44:05 Dictated By: CHARLY JOSE MD
== END | disposition home or self-care (01) ==
LOC: CATH 08:13
PROVIDERS: ATTEND Internal Medicine Cardiovascular Disease
DX: I48.0 Paroxysmal atrial fibrillation (principal); R00.2 Palpitations; I10 Essential (primary) hypertension; E78.5 Hyperlipidemia, unspecified; E11.9 Type 2 diabetes mellitus without complications; I73.9 Peripheral vascular disease, unspecified; G47.33 Obstructive sleep apnea (adult) (pediatric); F32.9 Major depressive disorder, single episode, unspecified; G47.10 Hypersomnia, unspecified; I47.1 Supraventricular tachycardia; M54.9 Dorsalgia, unspecified; J30.2 Other seasonal allergic rhinitis; Z86.718 Personal history of other venous thrombosis and embolism; Z79.899 Other long term (current) drug therapy; Z79.4 Long term (current) use of insulin; Z87.891 Personal history of nicotine dependence
CPT/HCPCS: 33285; 78452; 93017

== ENCOUNTER 2018-11-29 15:23 | Inpatient (IN) | payer MEDICARE, MEDICAID ==
[~2018-11-29] VITALS: Ht 179.1 cm; Wt 140.6 kg
[~2018-11-29 15:23] MED LIST changes: -CATHETER FLUSH 10 ML SYR IV PRN; -LIDOCAINE 1% INJ 20 ML 20 ML VIAL ONE; -REGADENOSON 0.4 MG/5 ML SYR (LEXISCAN) IV ONE
--- NOTE | 2018-11-29 15:30 | NUR ---
pt here by self alert gcs 15. in christian pt same time. pt uses 2 cane walkers and appears obese and overweight.pt apparantely has had a implantable tele monitor and its been going off showing a fib. pt also with recent med changes. pt c/o palpitations and dyspnea mostly as mcfadden. pt also appears anxious and is quite talkative with current history. no acute sighns of dyspnea noted though resp shallow nonlabored. lungs cta bilaterally. abd w/o pain with palpation. pt has 4 plus edema lower ext noted bilaterally. skin cool and slightly moist. neg duskiness or cyanosis noted. tele by me applied shows a fib 145 someone doing iv and labs. ekg byme and done christian pt at 1543
[2018-11-29] MEDS ORDERED: meTOprolol 5 MG/5 ML (LOPRESSOR) VIAL IV ONE (15:45)
[2018-11-29] MEDS ORDERED: ASPIRIN 81 MG CHEW (CHILDREN'S ASA) PO ONE (15:45)
--- NOTE | 2018-11-29 15:45 | ED Cardiac General ---
History of Present Illness General Stated Complaint: A-FIB,SOB Source: patient Exam Limitations: no limitations History of Present Illness Date Seen by Provider: Nov 29, 2018 Time Seen by Provider: 15:35 Initial Comments Patient presents to ER by private conveyance with chief complaint of racing palpitating heart rate for the past 24 hours. She says she went to physical therapy and felt very wore out. Today however she started feeling palpitations and knew that her A. fib was acting up. She is on Pradaxa but denies being on warfarin anymore. She was having some chest pain on exertion. Some nausea earlier but not now at rest. Feeling very short of breath but no cough fevers chills diarrhea or constipation. No abdominal pain. Her swelling in her hands and feet are chronic. Allergies and Home Medications Allergies Coded Allergies: amylase (Verified Allergy, Unknown, 08/07/15) black cohosh (Verified Allergy, Unknown, 08/07/15) cellulase (Verified Allergy, Unknown, 08/07/15) glyburide (Verified Allergy, Unknown, 08/07/15) isosorbide (Verified Allergy, Unknown, 08/07/15) lipase (Verified Allergy, Unknown, 08/07/15) protease (Verified Allergy, Unknown, 08/07/15) Home Medications Acetaminophen 500 Mg Tablet, 1,000 MG PO Q6H PRN for PAIN, (Reported) TAKES 2 (500MG) TABLETS Aspirin 81 Mg Tablet.dr, 81 MG PO DAILY, (Reported) Atenolol 50 Mg Tablet, 50 MG PO BID, (Reported) Atorvastatin Calcium 40 Mg Tablet, 20 MG PO HS, (Reported) take 1/2 of 40mg tab Calcium Carbonate/Vitamin D3 1 Each Tablet, 2 TAB PO DAILY, (Reported) Carboxymethylcellulose Sodium 1 Each Droperette, 1 EACH OP BID, (Reported) Cholecalciferol (Vitamin D3) 1,000 Unit Capsule, 1,000 UNIT PO BID, (Reported) Citalopram Hydrobromide 40 Mg Tablet, 40 MG PO DAILY, (Reported) Cyclosporine 1 Each Droperette, 1 EACH OU BID, (Reported) Etodolac 500 Mg Tablet, 500 MG PO BID, (Reported) Gabapentin 400 Mg Capsule, 800 MG PO TID, (Reported) take 2 (400mg) tabs Glucosamine/D3/Boswellia Nellie 1 Each Tablet, 1 EACH PO BID, (Reported) Insulin Aspart 300 Units/3 Ml Solution, 7 UNITS SQ BREAKFAST & LUNCH, (Reported) Insulin Aspart 300 Units/3 Ml Solution, 8 UNITS SQ WITH EVENING MEAL, (Reported) Insulin Glargine,Hum.rec.anlog 100 Unit/1 Ml Vial, 18 UNIT SQ HS, (Reported) Lisinopril 5 Mg Tablet, 5 MG PO BID, (Reported) Metformin HCl 1,000 Mg Tablet, 1,000 MG PO BID, (Reported) Mineral Oil/Petrolatum,White 3.5 Gm Oint...g., OU HS, (Reported) Multivitamin with Minerals 1 Each Tablet, 1 TAB PO DAILY, (Reported) Nitrofurantoin Monohyd/M-Cryst 100 Mg Capsule, 100 MG PO HS, (Reported) Oxybutynin Chloride 10 Mg Tab.er.24, 20 MG PO DAILY, (Reported) take 2 (10mg) tab Polyvinyl Alcohol/Povidone 15 Ml Drops, 1 DROP OU QID PRN for DRY EYES, (Reported) Primidone 250 Mg Tablet, 125 MG PO BID, (Reported) Ranitidine HCl 150 Mg Tablet, 150 MG PO BID PRN for HEARTBURN, (Reported) Solifenacin Succinate 5 Mg Tablet, 5 MG PO DAILY, (Reported) Warfarin Sodium 2.5 Mg Tablet, 2.5 MG PO DAILY@1800, (Reported) MON,TUE,NITZA,FRI, SAT Warfarin Sodium 2.5 Mg Tablet, 1.25 MG PO TUE, TUE, (Reported) Patient Home Medication List Home Medication List Reviewed: Yes Review of Systems Review of Systems Constitutional: No chills, No fever; weakness EENTM: No Blurred Vision, No Double Vision Respiratory: Denies Cough; Shortness of Air Cardiovascular: Chest Pain (occasional since yesterday), Edema (chronic), Irregular Heart Rate, Lightheadedness, Palpitations; Denies Syncope Gastrointestinal: Denies Abdomen Distended, Denies Abdominal Pain Genitourinary: Denies Burning, Denies Discharge Musculoskeletal: No back pain, No joint pain Skin: No pruritus, No rash Past [id number]-Wowuwl Hx Patient Social History Alcohol Use: Denies Use Recreational Drug Use: No Smoking Status: Former Smoker Type Used: Cigarettes Former Smoker, Quit: May 18, 1980 2nd Hand Smoke Exposure: No Recent Foreign Travel: No Contact w/Someone Who Travel: No Recent Hopitalizations: No Immunizations Up To Date Tetanus Booster (TDap): Unknown Date of Pneumonia Vaccine: Aug 07, 2010 Date of Influenza Vaccine: Feb 28, 2017 Seasonal Allergies Seasonal Allergies: No Past Medical History Surgeries: Yes (LEFT KNEE ACL, ORAL-GUM, CATARACTS, R shoulder scope, D&C WITH IUD) Eye Surgery, Orthopedic Respiratory: Yes Sleep Apnea Currently Using CPAP: Yes Currently Using BIPAP: No Cardiac: Yes Atrial Fibrillation Neurological: No Neuropathy 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 Disorders: Yes Female 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 Disorders: Denies Sexually Transmitted Disease: No HIV/AIDS: No UTI-Chronic Gastrointestinal: No Gastroesophageal Reflux, Chronic Constipation Musculoskeletal: Yes (Charcot's Disease-IN FEET AND ANKLES) Degenerate Disk Disease, Arthritis, Chronic Back Pain Endocrine: Yes Diabetes, Insulin dep Cataract Loss of Vision: Bilateral Hearing Impairment: Denies Cancer: No Psychosocial: Yes Depression Integumentary: No Blood Disorders: No Adverse Reaction/Blood Tranf: No Family Medical History Cardiovascular disease 19 FATHER 19 MOTHER Colon cancer 19 MOTHER Diabetes mellitus 19 MOTHER G8 BROTHER G8 SISTER Physical Exam Vital Signs Vital Signs - First Documented 11/29/18 11/29/18 15:30 16:34 Temp 95.3 Pulse 145 Resp 20 B/P (MAP) 146/113 (124) Pulse Ox 97 O2 Delivery Room Air Capillary Refill : Height, Weight, BMI Height: 5'10.00" Weight: 310lbs. 0.0oz. 140.680483lg; 44.5 BMI Method:Stated General Appearance: WD/WN, Anxious, Mild Distress HEENT: PERRL/EOMI, Normal ENT Inspection, Pharynx Normal, Moist Mucous Membra shirley Neck: Full Range of Motion, Normal Inspection Respiratory: Chest Non Tender, Lungs Clear, Normal Breath Sounds, No Accessory Muscle Use, No Respiratory Distress Cardiovascular: Regular Rate, Rhythm, No Edema, Normal Peripheral Pulses Gastrointestinal: Normal Bowel Sounds, No Organomegaly, Non Tender, Soft Extremity: Normal Capillary Refill, Normal Inspection, No Pedal Edema Neurologic/Psychiatric: Alert, Oriented x3 Skin: Normal Color, Warm/Dry Progress/Results/Core Measures Results/Orders Lab Results Laboratory Tests Test 11/29/18 15:30 Range/Units White Blood Count 9.2 4.3-11.0 10^3/uL Red Blood Count 5.21 4.35-5.85 10^6/uL Hemoglobin 15.2 11.5-16.0 G/DL Hematocrit 46 35-52 % Mean Corpuscular Volume 88 80-99 FL Mean Corpuscular Hemoglobin 29 25-34 PG Mean Corpuscular Hemoglobin Concent 33 32-36 G/DL Red Cell Distribution Width 14.7 H 10.0-14.5 % Platelet Count 353 130-400 10^3/uL Mean Platelet Volume 9.7 7.4-10.4 FL Neutrophils (%) (Auto) 54 42-75 % Lymphocytes (%) (Auto) 33 12-44 % Monocytes (%) (Auto) 8 0-12 % Eosinophils (%) (Auto) 5 0-10 % Basophils (%) (Auto) 0 0-10 % Neutrophils # (Auto) 4.9 1.8-7.8 X 10^3 Lymphocytes # (Auto) 3.1 1.0-4.0 X 10^3 Monocytes # (Auto) 0.7 0.0-1.0 X 10^3 Eosinophils # (Auto) 0.5 H 0.0-0.3 10^3/uL Basophils # (Auto) 0.0 0.0-0.1 10^3/uL Prothrombin Time 13.6 12.2-14.7 SEC INR Comment 1.0 0.8-1.4 Activated Partial Thromboplast Time 33 24-35 SEC Sodium Level 139 135-145 MMOL/L Potassium Level 4.4 3.6-5.0 MMOL/L Chloride Level 100 98-107 MMOL/L Carbon Dioxide Level 24 21-32 MMOL/L Anion Gap 15 H 5-14 MMOL/L Blood Urea Nitrogen 16 7-18 MG/DL Creatinine 0.87 0.60-1.30 MG/DL Estimat Glomerular Filtration Rate > 60 BUN/Creatinine Ratio 18 Glucose Level 221 H 70-105 MG/DL Calcium Level 9.9 8.5-10.1 MG/DL Corrected Calcium 9.7 8.5-10.1 MG/DL Magnesium Level 2.0 1.8-2.4 MG/DL Total Bilirubin 0.2 0.1-1.0 MG/DL Aspartate Amino Transf (AST/SGOT) 20 5-34 U/L Alanine Aminotransferase (ALT/SGPT) 30 0-55 U/L Alkaline Phosphatase 198 H 40-136 U/L Myoglobin 39.4 10.0-92.0 NG/ML Troponin I 0.052 H <0.028 NG/ML B-Type Natriuretic Peptide 350.0 H <100.0 PG/ML Total Protein 8.2 6.4-8.2 GM/DL Albumin 4.2 3.2-4.5 GM/DL My Orders Orders - DIANESIVAKUMAR Metoprolol Tartrate Injection (Lopressor (11/29/18 15:45) Cbc With Automated Diff (11/29/18 15:42) Magnesium (11/29/18 15:42) Chest 1 View, Ap/Pa Only (11/29/18 15:42) Ekg Tracing (11/29/18 15:42) Cardiac Profile 1 (11/29/18 15:42) Comprehensive Metabolic Panel (11/29/18 15:42) Myoglobin Serum (11/29/18 15:42) Protime With Inr (11/29/18 15:42) Partial Thromboplastin Time (11/29/18 15:42) O2 (11/29/18 15:42) Monitor-Rhythm Ecg Trace Only (11/29/18 15:42) Lipid Panel (11/30/18 06:00) Ed Iv/Invasive Line Start (11/29/18 15:42) BNP (11/29/18 15:42) Aspirin Chewable Tablet (Baby Aspirin Ch (11/29/18 15:45) Ekg Tracing (11/29/18 16:32) Ticagrelor Tablet (Brilinta Tablet) (11/29/18 17:30) Medications Given in ED Current Medications Medications Dose Ordered Sig/Ashley Route Start Time Stop Time Status Last Admin Dose Admin Aspirin 324 mg ONCE ONCE PO 11/29/18 15:45 11/29/18 15:46 DC 11/29/18 15:50 324 MG Metoprolol Tartrate 5 mg ONCE ONCE IV 11/29/18 15:45 11/29/18 15:46 DC 11/29/18 15:55 5 MG Vital Signs/I&O 11/29/18 11/29/18 15:30 16:34 Temp 95.3 95.6 Pulse 145 88 Resp 20 16 B/P (MAP) 146/113 (124) 121/76 (91) Pulse Ox 97 O2 Delivery Room Air Progress Progress Note : Time: 17:28 Progress Note Metoprolol 5 mg IV 1 inverted her back to sinus rhythm. Initially brought her down to the 90-100 range. Repeat EKG was obtained demonstrating no ST changes. Initial ECG Impression Date: Nov 29, 2018 Initial ECG Impression Time: 15:37 Initial ECG Rate: 140 Initial ECG Rhythm: A Fib/Flutter Initial ECG Intervals: QT (495) Initial ECG Impression: Atrial Fibrillation w/RVR Initial ECG Comparisson: Changed Comment Atrial fibrillation with rapid ventricular response. EKG : EKG Time: 16:36 Rate: 90 Rhythm: Normal Sinus Intervals: Normal, TN (212) ECG Comparisson: Changed ECG Impression: Normal, Nonspecific Changes Comment Normal sinus rhythm without significant ST elevation or depression. Diagnostic Imaging Diagonstic Imaging: Xray Plain Films/CT/US/NM/MRI: chest Comments NAME: SHAEALFREDO L MED REC#: [id number] PHYSICIAN: SIVAKUMAR CONTRERAS MD CC: FUAD PEREZ MD; SIVAKUMAR CONTRERAS Page 1 of 1 RADIOLOGY REPORT [facility], [place] CC: FUAD PEREZ MD; SIVAKUMAR CONTRERAS Page 1 of 1 RADIOLOGY REPORT NAME: ALFREDO KAUFMAN MED REC#: [id number] PT STATUS: REG ER : 1950 PHYSICIAN: SIVAKUMAR CONTRERAS MD ADMIT DATE: 11/29/18/ER Signed Date of Exam: 11/29/18 CHEST 1 VIEW, AP/PA ONLY INDICATION: Dyspnea. EXAMINATION: Upright portable AP view of the chest is obtained. COMPARISON: Comparison is made to study of 02/27/2018. FINDINGS: There is mild air trapping in the upper lobes. Heart size is at the upper limits of normal. Monitoring device is seen in the mid left chest. There is an approximately 1.5 cm nodular focus projected over the left base. This may represent nipple shadow. Lungs are otherwise clear. IMPRESSION: Probable nipple shadow projecting over the lower left chest. Repeat study with nipple markers in place would be useful. Otherwise, heart size is at the upper limits of normal without other evidence of acute abnormality or adverse change. Dictated by: Dictated on workstation # [id number] Dict: 11/29/18 1619 Trans: 11/29/18 1655 Interpreted by: FUAD PEREZ MD Electronically signed by: FUAD PEREZ MD 11/29/18 1655 Reviewed: Reviewed by Me Departure Communication (Admissions) Time/Spoke to Admitting Phy: 17:30 Discussed the case lab EKG and imaging with Dr. Rosales and she agrees to take the patient on observation to cardiac stepdown and serial troponins. Time/Spoke to Consulting Phy: 17:00 Discussed the case with Dr. Russell, cardiology as well as EKG imaging and labs. The recommends holding Pradaxa getting Brilinta 180 mg times one and getting an echo in the morning and serial troponins. Impression Primary Impression: Atrial fibrillation with rapid ventricular response Additional Impressions: Chest pain Qualified Codes: R07.9 - Chest pain, unspecified ACS (acute coronary syndrome) Elevated troponin I level Disposition: ADMITTED INPATIENT Condition: Stable Admissions Decision to Admit Reason: Admit from ER (General) Decision to Admit/Date: Nov 29, 2018 Time/Decision to Admit Time: 16:30 Departure-Patient Inst. Referrals: DELIA TRIANA MD (PCP/Family) Primary Care Physician SIVAKUMAR CONTRERAS Nov 29, 2018 15:45
[2018-11-29 15:48] LABS: BASOPHILS % (AUTO) 0 % (0-10); EOSINOPHILS # (AUTO) 0.5 10^3/uL (0.0-0.3); EOSINOPHILS % (AUTO) 5 % (0-10); HEMATOCRIT 46 % (35-52); HEMOGLOBIN 15.2 G/DL (11.5-16.0); LYMPHOCYTES # (AUTO) 3.1 X 10^3 (1.0-4.0); LYMPHOCYTES % (AUTO) 33 % (12-44); MEAN CORPUSCULAR HEMOGLOBIN 29 PG (25-34); MEAN CORPUSCULAR HGB CONC 33 G/DL (32-36); MEAN CORPUSCULAR VOLUME 88 FL (80-99); MEAN PLATELET VOLUME 9.7 FL (7.4-10.4); MONOCYTES # (AUTO) 0.7 X 10^3 (0.0-1.0); MONOCYTES % (AUTO) 8 % (0-12); NEUTROPHILS # (AUTO) 4.9 X 10^3 (1.8-7.8); NEUTROPHILS % (AUTO) 54 % (42-75); PLATELET COUNT 353 10^3/uL (130-400); RED CELL DISTRIBUTION WIDTH 14.7 % (10.0-14.5); WHITE BLOOD COUNT 9.2 10^3/uL (4.3-11.0)
[2018-11-29 15:53] LABS: PROTHROMBIN TIME PATIENT 13.6 SEC (12.2-14.7)
--- NOTE | 2018-11-29 16:01 | NUR ---
before lopressor bp machine is 116/106 tele shows a flutter 142 mix with a fib. p ox 97 r/a. after lopressor bp machine is 130/89 tele shows a fib 100 p ox r/a is 99. knows hr after lopressor.
[2018-11-29 16:12] LABS: ALANINE AMINOTRANSFERASE 30 U/L (0-55); ALBUMIN 4.2 GM/DL (3.2-4.5); ALKALINE PHOSPHATASE 198 U/L (40-136); BILIRUBIN,TOTAL 0.2 MG/DL (0.1-1.0); BUN/CREATININE RATIO 18; CALCIUM 9.9 MG/DL (8.5-10.1); CARBON DIOXIDE 24 MMOL/L (21-32); CHLORIDE 100 MMOL/L (98-107); CREATININE SERUM 0.87 MG/DL (0.60-1.30); GFR ESTIMATED > 60; GLUCOSE 221 MG/DL (70-105); POTASSIUM 4.4 MMOL/L (3.6-5.0); SODIUM 139 MMOL/L (135-145); TOTAL PROTEIN 8.2 GM/DL (6.4-8.2)
--- NOTE | 2018-11-29 16:19 | NUR ---
pt now in sr 82. knows.
--- NOTE | 2018-11-29 16:25 | Diagnostic Imaging Report ---
INDICATION: Dyspnea. EXAMINATION: Upright portable AP view of the chest is obtained. COMPARISON: Comparison is made to study of 02/27/2018. FINDINGS: There is mild air trapping in the upper lobes. Heart size is at the upper limits of normal. Monitoring device is seen in the mid left chest. There is an approximately 1.5 cm nodular focus projected over the left base. This may represent nipple shadow. Lungs are otherwise clear. IMPRESSION: Probable nipple shadow projecting over the lower left chest. Repeat study with nipple markers in place would be useful. Otherwise, heart size is at the upper limits of normal without other evidence of acute abnormality or adverse change. Dictated by: Dictated on workstation # [id number]
[2018-11-29 16:34] VITALS: BP 121/76
--- NOTE | 2018-11-29 16:34 | NUR ---
pt remains here by self alert gcs 15. pt denies chest pain and palpitations. denies dyspnea and no acute sighns of dyspnea noted. ausc hr slightly irreg but tele shows sr 84. pt relates " dayna been sweating again". pt is diaphoretic.
--- NOTE | 2018-11-29 16:40 | NUR ---
ekg by me and to by me
[2018-11-29] MEDS ORDERED: TICAGRELOR 90 MG TABLET (BRILINTA) PO ONE (17:30)
--- NOTE | 2018-11-29 17:30 | NUR ---
pt remains here by self alert gcs 15. pt spoke with sister on her cell she said. pt denies chest pain and palpaitations. denies dyspnea and no cute sighns of dyspnea noted though pt relates mcfadden as " when i get up and move around". bp machine is 126/77 ausc hr 80 reg ausc resp 16 normal recheck temp 97.6 oral. p ox r/a is 97. tele shows sr 83.
--- NOTE | 2018-11-29 17:51 | NUR ---
mundo told me short while ago pt now going to [facility] instead of 417. and someone still in that bed. i called ic[facility] they will call when bed cleaned and ready for this pt. after they d/c the current pt in that room.
--- NOTE | 2018-11-29 18:02 | NUR ---
pt can eat till 0000 . i will order and call for a tray diabetic 2000 diet.
--- NOTE | 2018-11-29 18:17 | NUR ---
i just got done ordering supper tray.
--- NOTE | 2018-11-29 18:19 | NUR ---
told pt supper tray should be coming. pt alert gcs 15 talking on her cell with no acute sighns of dyspnea noted. tele shows sr 86. p ox r/a is 99. bp machine is 102/71
--- NOTE | 2018-11-29 18:32 | NUR ---
I JUST CALLED REPORT TO ADMIT NURSE DELORES. SOMEONE WILL TAKE PT TO ADMIT ROOM DONIS.
--- NOTE | 2018-11-29 18:36 | NUR ---
I AM TAKING PT TO ADMIT ROOM NOW
--- NOTE | 2018-11-29 18:39 | Consultation-Cardiology ---
HPI-Cardiology Cardiology Consultation: Date of Consultation 11/29/18 Date of Admission Attending Physician Tia Rosales DO Admitting Physician Martin Goode MD Consulting Physician Janiya RUSSELL MD HPI: Time Seen by a Provider: 18:39 [id number] Hx Patient Social History Alcohol Use: Denies Use Recreational Drug Use: No Smoking Status: Former Smoker Former smoker/When Quit: Aug 07, 1980 Type Used: Cigarettes 2nd Hand Smoke Exposure: No Recent Foreign Travel: No Recent Infectious Disease Expo: No Immunizations Up To Date Tetanus Booster (TDap): Unknown Date of Pneumonia Vaccine: Aug 07, 2010 Date of Influenza Vaccine: Feb 28, 2017 Past Medical History PMH As described under Assessment. Family Medical History Family History: Cardiovascular disease 19 FATHER 19 MOTHER Colon cancer 19 MOTHER Diabetes mellitus 19 MOTHER G8 BROTHER G8 SISTER Allergies and Home Medications Allergies Coded Allergies: amylase (Verified Allergy, Unknown, 08/07/15) black cohosh (Verified Allergy, Unknown, 08/07/15) cellulase (Verified Allergy, Unknown, 08/07/15) glyburide (Verified Allergy, Unknown, 08/07/15) isosorbide (Verified Allergy, Unknown, 08/07/15) lipase (Verified Allergy, Unknown, 08/07/15) protease (Verified Allergy, Unknown, 08/07/15) Home Medications Acetaminophen 500 Mg Tablet, 1,000 MG PO DAILY, (Reported) TAKES 2 (500MG) TABLETS Acetaminophen 500 Mg Tablet, 1,000 MG PO DAILY PRN for PAIN-MILD, (Reported) TAKES 2 (500MG) TABLETS; ALWAYS TAKES 2 IN THE MORNING AND OCCASIONALLY WILL TAKE ANOTHER DOSE LATER IN THE DAY NEEDED Albuterol Sulfate 1 Puff Puff, 2 PUFF INH QID PRN for SHORTNESS OF BREATH, (Reported) Aspirin 81 Mg Tablet.dr, 81 MG PO DAILY, (Reported) Atorvastatin Calcium 40 Mg Tablet, 20 MG PO HS, (Reported) TAKES 1/2 (40MG) TABLET Calcium Carbonate/Vitamin D3 1 Each Tablet, 1 TAB PO BID, (Reported) Cetirizine HCl 10 Mg Tablet, 10 MG PO DAILY, (Reported) Cholecalciferol (Vitamin D3) 1,000 Unit Capsule, 2,000 UNIT PO 1200, (Reported) Dabigatran Etexilate Mesylate 150 Mg Capsule, 150 MG PO BID, (Reported) Etodolac 500 Mg Tablet, 500 MG PO BID, (Reported) Ferrous Sulfate 325 Mg Tablet, 325 MG PO DAILY, (Reported) Fluticasone Propionate 16 Gm Edmond.susp, 2 SPRAYS NS DAILY PRN for ALLERGIES, (Reported) Fluticasone/Vilanterol 1 Each Blst.w.dev, 1 PUFF INH DAILY, (Reported) Gabapentin 800 Mg Tablet, 800 MG PO QID, (Reported) Glucosamine/D3/Boswellia Nellie 1 Each Tablet, 1 TAB PO BID, (Reported) Imipramine HCl 50 Mg Tablet, 50 MG PO HS, (Reported) Insulin Aspart 300 Units/3 Ml Solution, 8 UNITS SQ TIDAC, (Reported) Insulin Glargine,Hum.rec.anlog 100 Unit/1 Ml Vial, 20 UNIT SQ HS, (Reported) Lisinopril 20 Mg Tablet, 20 MG PO DAILY, (Reported) Metformin HCl 1,000 Mg Tablet, 1,000 MG PO BID, (Reported) Metoprolol Succinate 100 Mg Tab.er.24h, 100 MG PO DAILY, (Reported) Mineral Oil/Petrolatum,White 3.5 Gm Oint...g., OU HS, (Reported) Mirabegron 50 Mg Tab.er.24h, 50 MG PO DAILY, (Reported) Multivitamin with Minerals 1 Each Tablet, 1 TAB PO DAILY, (Reported) Nitrofurantoin Macrocrystal 100 Mg Capsule, 100 MG PO 1800, (Reported) [place] 3 Polyunsat Fatty Acids 1,000 Mg Cap, 1,000 MG PO TID, (Reported) Polyethylene Glycol 3350 17 Gm Powd.pack, 17 GM PO DAILY PRN for CONSTIPATION- 2ND LINE, (Reported) Polyvinyl Alcohol/Povidone 15 Ml Drops, 2 DROPS OU Q2H, (Reported) Primidone 250 Mg Tablet, 250 MG PO TID, (Reported) Ranitidine HCl 150 Mg Tablet, 150 MG PO BID PRN for HEARTBURN, (Reported) Solifenacin Succinate 10 Mg Tablet, 10 MG PO 1600, (Reported) Venlafaxine HCl 75 Mg Cap.er.24h, 75 MG PO DAILY, (Reported) Physical Exam-Cardiology Physical Exam Vital Signs/I&O 11/30/18 11/30/18 11/30/18 11/30/18 04:00 07:00 08:00 12:48 Pulse 84 80 83 120 Resp 12 16 B/P (MAP) 117/62 (80) 128/66 (86) Pulse Ox 98 95 O2 Delivery Room Air Room Air 11/30/18 00:00 Intake Total 500 ml Balance 500 ml Capillary Refill : Less Than 3 Seconds Data Review Labs Laboratory Tests 11/29/18 15:30: White Blood Count 9.2, Red Blood Count 5.21, Hemoglobin 15.2, Hematocrit 46, Mean Corpuscular Volume 88, Mean Corpuscular Hemoglobin 29, Mean Corpuscular Hemoglobin Concent 33, Red Cell Distribution Width 14.7H, Platelet Count 353, Mean Platelet Volume 9.7, Neutrophils (%) (Auto) 54, Lymphocytes (%) (Auto) 33, Monocytes (%) (Auto) 8, Eosinophils (%) (Auto) 5, Basophils (%) (Auto) 0, Neutrophils # (Auto) 4.9, Lymphocytes # (Auto) 3.1, Monocytes # (Auto) 0.7, Eosinophils # (Auto) 0.5H, Basophils # (Auto) 0.0, Prothrombin Time 13.6, INR Comment 1.0, Activated Partial Thromboplast Time 33, Sodium Level 139, Potassium Level 4.4, Chloride Level 100, Carbon Dioxide Level 24, Anion Gap 15H, Blood Urea Nitrogen 16, Creatinine 0.87, Estimat Glomerular Filtration Rate > 60, BUN/Creatinine Ratio 18, Glucose Level 221H, Calcium Level 9.9, Corrected Calcium 9.7, Magnesium Level 2.0, Total Bilirubin 0.2, Aspartate Amino Transf (AST/SGOT) 20, Alanine Aminotransferase (ALT/SGPT) 30, Alkaline Phosphatase 198H , Myoglobin 39.4, Troponin I 0.052H, B-Type Natriuretic Peptide 350.0H, Total Protein 8.2, Albumin 4.2 11/29/18 21:33: Glucometer 158H 11/29/18 21:42: Troponin I 0.044H 11/30/18 02:55: White Blood Count 8.3, Red Blood Count 4.51, Hemoglobin 13.3, Hematocrit 40, Mean Corpuscular Volume 90, Mean Corpuscular Hemoglobin 30, Mean Corpuscular Hemoglobin Concent 33, Red Cell Distribution Width 14.9H, Platelet Count 301, Mean Platelet Volume 9.9, Neutrophils (%) (Auto) 48, Lymphocytes (%) (Auto) 36, Monocytes (%) (Auto) 9, Eosinophils (%) (Auto) 7, Basophils (%) (Auto) 0, Neutrophils # (Auto) 4.0, Lymphocytes # (Auto) 3.0, Monocytes # (Auto) 0.7, Eosi nophils # (Auto) 0.6H, Basophils # (Auto) 0.0, Sodium Level 139, Potassium Level 4.2, Chloride Level 102, Carbon Dioxide Level 26, Anion Gap 11, Blood Urea Nitrogen 16, Creatinine 0.73, Estimat Glomerular Filtration Rate > 60, BUN/Creatinine Ratio 22, Glucose Level 103, Calcium Level 9.4, Corrected Calcium 9.6, Total Bilirubin 0.2, Aspartate Amino Transf (AST/SGOT) 18, Alanine Aminotransferase (ALT/SGPT) 27, Alkaline Phosphatase 173H, Troponin I < 0.028, Total Protein 7.0, Albumin 3.7, Triglycerides Level 72, Cholesterol Level 159, LDL Cholesterol Direct 74, VLDL Cholesterol 14, HDL Cholesterol 72H 11/30/18 11:27: Glucometer 103 A/P-Cardiology Plan Thank you for your consultation. Please call me if you have any questions. My Russell MD, FACP, FACC, FSCAI, FHRS, CCDS Interventional Cardiology Cardiac Electrophysiology Vascular Medicine and Endovascular Interventions Janiya RUSSELL MD Nov 29, 2018 18:39
[2018-11-29 19:15] VITALS: BP 133/99
[2018-11-29] MEDS ORDERED: morphine INJ 4 MG/ML 1 ML (VIAL/SYRINGE) IV PRN (19:15)
[2018-11-29] MEDS ORDERED: ONDANSETRON 4 MG/2 ML (SDV) Z0FRAN IV PRN (19:15)
[2018-11-29] MEDS ORDERED: CATHETER FLUSH 10 ML SYR IV PRN (19:15)
[2018-11-29 20:00] VITALS: BP 137/69
[2018-11-29] MEDS ORDERED: NITROGLYCERIN 0.4 MG SL TABS BTL 25'S SL PRN (20:15)
[2018-11-29 21:00] VITALS: BP 110/64
[2018-11-29] MEDS ORDERED: ONDANSETRON 4 MG/2 ML (SDV) Z0FRAN IVP PRN (21:15)
[2018-11-29] MEDS ORDERED: ACETAMINOPHEN 500 MG TAB (TYLENOL) PO PRN (21:15)
[2018-11-29] MEDS ORDERED: MELATONIN 3 MG TABLET PO PRN (21:15)
[2018-11-29] MEDS ORDERED: diphenhydrAMINE 25 MG TAB (BENADRYL) PO PRN (21:15)
[2018-11-29] MEDS ORDERED: DOCUSATE SODIUM 100 MG (COLACE) CAP PO PRN (21:15)
[2018-11-29] MEDS ORDERED: ONDANSETRON 4 MG (ZOFRAN) ORAL DISSOLVE TAB PO PRN (21:15)
[2018-11-29] MEDS ORDERED: CALCIUM CARBONATE 500 MG (TUMS) TAB.CHEW PO PRN (21:15)
[2018-11-29] MEDS: ATORVASTATIN 10 MG (LIPITOR) TABLET PO SCH (21:49)
[2018-11-29] MEDS: CATHETER FLUSH 10 ML SYR IV SCH (21:50)
[2018-11-29] MEDS: inSUlin ASPART (NovoLOG) 1 UNIT/0.01 ML (CHARGE PER UNIT) SC SCH (21:51)
[2018-11-30] VITALS (10 sets, daily range): BP systolic 117–161; BP diastolic 62–89
[2018-11-30] MEDS: ALPRAZolam 0.25 MG (XANAX) TAB PO PRN ×2 (01:43→18:36)
[2018-11-30] MEDS: HYDROcodone/APAP 5 MG/325 MG (LORTAB) TAB PO PRN ×2 (01:43→18:37)
[2018-11-30 04:08] LABS: BASOPHILS % (AUTO) 0 % (0-10); EOSINOPHILS # (AUTO) 0.6 10^3/uL (0.0-0.3); EOSINOPHILS % (AUTO) 7 % (0-10); HEMATOCRIT 40 % (35-52); HEMOGLOBIN 13.3 G/DL (11.5-16.0); LYMPHOCYTES % (AUTO) 36 % (12-44); MEAN CORPUSCULAR HEMOGLOBIN 30 PG (25-34); MEAN CORPUSCULAR HGB CONC 33 G/DL (32-36); MEAN CORPUSCULAR VOLUME 90 FL (80-99); MEAN PLATELET VOLUME 9.9 FL (7.4-10.4); MONOCYTES # (AUTO) 0.7 X 10^3 (0.0-1.0); MONOCYTES % (AUTO) 9 % (0-12); NEUTROPHILS % (AUTO) 48 % (42-75); PLATELET COUNT 301 10^3/uL (130-400); RED CELL DISTRIBUTION WIDTH 14.9 % (10.0-14.5); WHITE BLOOD COUNT 8.3 10^3/uL (4.3-11.0)
[2018-11-30 04:31] LABS: ALANINE AMINOTRANSFERASE 27 U/L (0-55); ALBUMIN 3.7 GM/DL (3.2-4.5); ALKALINE PHOSPHATASE 173 U/L (40-136); BILIRUBIN,TOTAL 0.2 MG/DL (0.1-1.0); BUN/CREATININE RATIO 22; CALCIUM 9.4 MG/DL (8.5-10.1); CARBON DIOXIDE 26 MMOL/L (21-32); CHLORIDE 102 MMOL/L (98-107); CHOLESTEROL 159 MG/DL (< 200); CREATININE SERUM 0.73 MG/DL (0.60-1.30); GFR ESTIMATED > 60; GLUCOSE 103 MG/DL (70-105); HDL CHOLESTEROL 72 MG/DL (40-60); POTASSIUM 4.2 MMOL/L (3.6-5.0); SODIUM 139 MMOL/L (135-145); TRIGLYCERIDES 72 MG/DL (<150); VLDL CHOLESTEROL 14 MG/DL (5-40)
[2018-11-30] MEDS: CATHETER FLUSH 10 ML SYR IV SCH ×3 (06:18→20:47)
[2018-11-30] MEDS: inSUlin ASPART (NovoLOG) 1 UNIT/0.01 ML (CHARGE PER UNIT) SC SCH ×7 (06:18→21:26)
[2018-11-30] MEDS: SENNA W/DOCUSATE (SENOKOT S) TABLET PO SCH ×2 (09:00→20:46)
[2018-11-30] MEDS: meTOprolol SUCCINATE 100 MG (TOPROL XL) TAB PO SCH (09:00)
[2018-11-30] MEDS ORDERED: LIDOCAINE 1% INJ 20 ML 20 ML VIAL ONE (09:39)
[2018-11-30] MEDS ORDERED: HEParin (CATH LAB) 2,000 ML IV ONE (09:39)
[2018-11-30] MEDS: TICAGRELOR 90 MG TABLET (BRILINTA) PO SCH ×3 (09:54→21:19)
[2018-11-30] MEDS: lisINopril 5 MG (PRINIVIL) TABLET PO SCH (09:55)
[2018-11-30] MEDS: ASPIRIN E.C. 81 MG (ECOTRIN) TAB PO SCH (09:55)
[2018-11-30] MEDS ORDERED: OMG1KC PO (09:59)
[2018-11-30] MEDS ORDERED: DABI150C5 PO (09:59)
[2018-11-30] MEDS ORDERED: RT-ALBUINH INH (09:59)
[2018-11-30] MEDS ORDERED: FLUT1BLS INH (09:59)
[2018-11-30] MEDS ORDERED: POLY17PO6 PO (09:59)
[2018-11-30] MEDS ORDERED: METO-395 PO (09:59)
[2018-11-30] MEDS ORDERED: MIRA50TA PO (09:59)
[2018-11-30] MEDS ORDERED: VENL75CA93 PO (09:59)
[2018-11-30] MEDS ORDERED: LISI-552 PO (09:59)
[2018-11-30] MEDS ORDERED: CETI10TA20 PO (09:59)
[2018-11-30] MEDS ORDERED: ACET-2267 PO (09:59)
[2018-11-30] MEDS ORDERED: FERR325T18 PO (09:59)
[2018-11-30] MEDS ORDERED: FLUT16SP22 NS (09:59)
[2018-11-30] MEDS ORDERED: GABA800T10 PO (09:59)
[2018-11-30] MEDS ORDERED: NITR100C PO (09:59)
[2018-11-30] MEDS ORDERED: IMIP50TA4 PO (09:59)
[2018-11-30] MEDS ORDERED: PRIM250T33 PO (09:59)
[2018-11-30] MEDS ORDERED: SOLI10TA2 PO (09:59)
--- NOTE | 2018-11-30 10:02 | NUR ---
SPOKE WITH THE PATIENT ABOUT HER MEDICATIONS. SHE HAD A VERY DETAILED LIST. I COMPARED IT WITH WHAT [facility] HAS FILLED HOWEVER [facility]. SHE IS VERY KNOWLEDGEABLE ABOUT EACH MEDICATION, THE DOSE, AND WHAT IT IS FOR. I UPDATED THE MED REC JUST SHE REPORTED IT. SHE STATES SHE HAS MADE SEVERAL CHANGES TO HER MED LIST AND SHE NEEDS TO RE - WRITE IT. IN GOING OVER IT THERE WERE A COUPLE MORE ADDITIONAL CHANGES SHE NEEDS TO MAKE BUT SHE IS AWARE AND WILL UPDATE AFTER DISCHARGE.
--- NOTE | 2018-11-30 10:25 | History & Physical-Hospitalist ---
History of Present Illness HPI/Chief Complaint Chief complaint: Chest pain HPI: This is a 67yoWF disabled from Charcot joints bilateral foot who sees Dr. Goode at [facility] in addition to the [place] hospital clinic in [place] and Dr. Calvert on a regular basis along with Dr. Peterson and Dr. Valdivia locally, who presented to the ER with chest pain, elevated troponin with atrial fibrillation with rapid ventricular response. Dr. Russell will perform cardiac catheterization today. Pt was placed on Brilinta. She ambulates with B/L canes. Charcot joint has her completely disabled. She did serve in the [employer] the [employer] for eight years. She doesn't smoke or drink. She has a caregiver that comes in the morning to early afternoon. She does use CPAP but no oxygen. She does use inhalers for asthma. She has had a catheterization on her legs before by Dr. Calvert. Patient underwent cardiac cath and had stent placed in LAD Recs: Aspirin, Brilinta, pradaxa for one month. After one month continue Brilinta and pradaxa for one year. after one year, dc brilinta and continue aspirin and pradaxa long-term. Source: patient Exam Limitations: no limitations Date Seen 11/30/18 Time Seen by a Provider: 09:45 Attending Physician Tia Tello DO PCP Martin Goode MD Referring Physician Date of Admission Nov 29, 2018 at 17:20 Home Medications & Allergies Home Medications Reviewed patient Home Medication Reconciliation performed by pharmacy medication reconciliations plasma center technician and/or nursing. Patients Allergies have been reviewed. Allergies Allergies Coded Allergies amylase (Verified Allergy, Unknown, 08/07/15) black cohosh (Verified Allergy, Unknown, 08/07/15) cellulase (Verified Allergy, Unknown, 08/07/15) glyburide (Verified Allergy, Unknown, 08/07/15) isosorbide (Verified Allergy, Unknown, 08/07/15) lipase (Verified Allergy, Unknown, 08/07/15) protease (Verified Allergy, Unknown, 08/07/15) Past Opcxiyf-Kstbqu-Kgrhov Hx Past Med/Social Hx: Reviewed Nursing Past Med/Soc Hx, Reviewed and Corrections made Patient Social History Marrital Status: single Employed/Student: retired Alcohol Use: Denies Use Recreational Drug Use: No Smoking Status: Former Smoker Former Smoker, Quit: May 18, 1980 Type Used: Cigarettes 2nd Hand Smoke Exposure: No Recent Foreign Travel: No Contact w/other who traveled: No Recent Hopitalizations: No Recent Infectious Disease Expo: No Immunizations Up To Date Tetanus Booster (TDap): Unknown Date of Pneumonia Vaccine: Nov 30, 2016 Date of Influenza Vaccine: Feb 28, 2017 Seasonal Allergies Seasonal Allergies: No Past Medical History Surgeries: Eye Surgery, Orthopedic Currently Using CPAP: Yes Currently Using BIPAP: No Cardiac: Atrial Fibrillation Neurological: Neuropathy 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: Yes Sexually Transmitted Disease: No HIV/AIDS: No Female 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 Disorders: Denies Genitourinary: UTI-Chronic Gastrointestinal: Gastroesophageal Reflux, Chronic Constipation Musculoskeletal: Degenerate Disk Disease, Arthritis, Chronic Back Pain Endocrine: Diabetes, Insulin dep HEENT: Cataract Loss of Vision: Bilateral Hearing Impairment: Denies Psychosocial: Depression History of Blood Disorders: No Adverse Reaction to Blood Funez: No Family History Cardiovascular disease 19 FATHER 19 MOTHER Colon cancer 19 MOTHER Diabetes mellitus 19 MOTHER G8 BROTHER G8 SISTER Review of Systems Constitutional: see HPI, weakness EENTM: no symptoms reported Respiratory: dyspnea on exertion Cardiovascular: chest pain Gastrointestinal: no symptoms reported Genitourinary: no symptoms reported Musculoskeletal: joint pain Skin: no symptoms reported Psychiatric/Neurological: No Symptoms Reported All Other Systems Reviewed Negative Unless Noted: Yes Physical Exam Physical Exam Vital Signs Vital Signs - First Documented 11/29/18 11/29/18 15:30 16:34 Temp 95.3 Pulse 145 Resp 20 B/P (MAP) 146/113 (124) Pulse Ox 97 O2 Delivery Room Air Capillary Refill : Less Than 3 SecondsLess Than 3 Seconds Height, Weight, BMI Height: 5'10.50" Weight: 310lbs. 0.0oz. 140.552542bw; 43.9 BMI Method:Stated General Appearance: No Apparent Distress, WD/WN, Chronically ill Eyes: Right Eye Normal Inspection, Right Eye PERRL HEENT: PERRL/EOMI, Normal ENT Inspection, Pharynx Normal, Moist Mucous Membranes Neck: Full Range of Motion, Normal Inspection, Non Tender Respiratory: Chest Non Tender, Lungs Clear, Normal Breath Sounds, No Accessory Muscle Use, No Respiratory Distress Cardiovascular: Regular Rate, Rhythm, No Edema, No Gallop, No JVD, No Murmur, Normal Peripheral Pulses Gastrointestinal: Normal Bowel Sounds, No Organomegaly, No Pulsatile Mass, Non Tender, Soft Back: Normal Inspection, No CVA Tenderness, No Vertebral Tenderness Extremity: Normal Capillary Refill, Normal Inspection, Normal Range of Motion, Non Tender, No Calf Tenderness, No Pedal Edema, Other (chronic Charcot joints feet) Neurologic/Psychiatric: Alert, Oriented x3, No Motor/Sensory Deficits, Normal Mood/Affect, sports broadcaster II-XII Norm as Tested Skin: Normal Color, Warm/Dry Lymphatic: No Adenopathy Results Results/Procedures Labs Laboratory Tests 11/29/18 15:30 11/30/18 02:55 Patient resulted labs reviewed. Assessment/Plan Admission Diagnosis Assessment: NSTEMI with elevated troponin requiring cardiac cath and placement of a stent in LAD Chronic AF Bilateral Charcot joints of the feet Chronic disability JENNA Neuropathy Mental illness Plan: Appreciate Dr Yvonne romero Pradamary, ASAAlexanderilinmargaret Most of home meds to restart Admission Status: Inpatient Order (span 2 midnights) Reason for Inpatient Admission: NSTEMI requiring stent placement Diagnosis/Problems Diagnosis/Problems (1) NSTEMI (non-ST elevated myocardial infarction) Status: Acute (2) Stented coronary artery Status: Acute (3) S/P cardiac catheterization Status: Acute (4) JENNA (obstructive sleep apnea) Status: Chronic (5) Chronic mental illness Status: Chronic (6) Angina pectoris Status: Chronic (7) Elevated troponin I level Status: Acute (8) Atrial fibrillation with rapid ventricular response Status: Acute (9) ACS (acute coronary syndrome) Status: Acute (10) Chest pain Status: Acute Qualifiers: Chest pain type: unspecified Qualified Codes: R07.9 - Chest pain, unspecified Clinical Quality Measures DVT/VTE Risk/Contraindication: Risk Factor Score Per Nursin RFS Level Per Nursing on Admit: 4+=Very High TIA TELLO DO Nov 30, 2018 10:25
[2018-11-30] MEDS ORDERED: MIDAZOLAM 5 MG/5 ML (VERSED) VIAL ONE (11:38)
[2018-11-30] MEDS ORDERED: fentaNYL INJECTION 100 MCG/2 ML AMP ONE ×2 (11:38→13:27)
[2018-11-30] MEDS ORDERED: NS IV 1000 ML 1,000 ML ONE (11:40)
[2018-11-30] MEDS ORDERED: MIDAZOLAM 2 MG/2 ML (VERSED) VIAL ONE (12:40)
[2018-11-30] MEDS ORDERED: HEParin 1000 UNIT/ML (10ML VIAL) FOR BOLUS ONE (12:46)
--- NOTE | 2018-11-30 13:34 | Consultation-Cardiology ---
HPI-Cardiology Cardiology Consultation: Date of Consultation 11/30/18 Date of Admission Attending Physician Tia Rosales DO Admitting Physician Martin Goode MD Consulting Physician Janiya RUSSELL MD HPI: Time Seen by a Provider: 08:30 Chief Complaint: chest pain this is a 67-year-old lady with history of paroxysmal atrial fibrillation on oral anticoagulation and Cardizem. She also has history of diabetes, morbid obesity. She presented to the ER with complain of atrial fibrillation as well as chest pain which she describes as an ache. Mild to moderate intensity. No significant radiation. No exacerbating or relieving factors. Review of Systems-Cardiology Review of Systems Constitutional: As described under HPI; No As described under HPI, No no symptoms reported, No chills, No fever, No lightheadedness Eyes: No As described under HPI, No no symptoms reported, No blindness, No blurred vision, No contact lenses, No drainage, No decreased acuity, No foreign body sensation, No pain, No vision change Ears/Nose/Throat: No As described under HPI, No no symptoms reported, No chronic hearing loss, No ear discharge, No ear pain, No nasal drainage, No ulcerations Respiratory: No no symptoms reported; As described under HPI; No As described under HPI, No cough, No orthopnea, No shortness of breath, No SOB with excertion Cardiovascular: No no symptoms reported; As described under HPI; No As described under HPI; chest pain; No edema, No irregular heart rate, No li ghtheadedness; palpitations Gastrointestinal: No no symptoms reported, No As described under HPI, No abdom en distended, No abdominal pain, No blood streaked bowels, No constipation, No diarrhea, No nausea, No vomiting, No stool coloration changes Genitourinary: No As described under HPI, No burning, No dysuria, No discharge, No frequency, No flank pain, No hematuria, No urgency : Yes : No Skin: No rash, No skin related problems, No ulcerations Psychiatric/Neurological: No anxiety, No depression, No seizure, No focal weakness, No syncope Hematologic: No bleeding abnormalities BAA-Jotrkm-Ufiymu Hx Patient Social History Alcohol Use: Denies Use Recreational Drug Use: No Smoking Status: Former Smoker Former smoker/When Quit: Aug 07, 1980 Type Used: Cigarettes 2nd Hand Smoke Exposure: No Recent Foreign Travel: No Recent Infectious Disease Expo: No Immunizations Up To Date Tetanus Booster (TDap): Unknown Date of Pneumonia Vaccine: Nov 30, 2016 Date of Influenza Vaccine: Feb 28, 2017 Past Medical History PMH As described under Assessment. Family Medical History Family History: Cardiovascular disease 19 FATHER 19 MOTHER Colon cancer 19 MOTHER Diabetes mellitus 19 MOTHER G8 BROTHER G8 SISTER Allergies and Home Medications Allergies Coded Allergies: amylase (Verified Allergy, Unknown, 08/07/15) black cohosh (Verified Allergy, Unknown, 08/07/15) cellulase (Verified Allergy, Unknown, 08/07/15) glyburide (Verified Allergy, Unknown, 08/07/15) isosorbide (Verified Allergy, Unknown, 08/07/15) lipase (Verified Allergy, Unknown, 08/07/15) protease (Verified Allergy, Unknown, 08/07/15) Home Medications Acetaminophen 500 Mg Tablet, 1,000 MG PO DAILY, (Reported) TAKES 2 (500MG) TABLETS Acetaminophen 500 Mg Tablet, 1,000 MG PO DAILY PRN for PAIN-MILD, (Reported) TAKES 2 (500MG) TABLETS; ALWAYS TAKES 2 IN THE MORNING AND OCCASIONALLY WILL TAKE ANOTHER DOSE LATER IN THE DAY NEEDED Albuterol Sulfate 1 Puff Puff, 2 PUFF INH QID PRN for SHORTNESS OF BREATH, (Re ported) Aspirin 81 Mg Tablet.dr, 81 MG PO DAILY, (Reported) Atorvastatin Calcium 40 Mg Tablet, 20 MG PO HS, (Reported) TAKES 1/2 (40MG) TABLET Calcium Carbonate/Vitamin D3 1 Each Tablet, 1 TAB PO BID, (Reported) Cetirizine HCl 10 Mg Tablet, 10 MG PO DAILY, (Reported) Cholecalciferol (Vitamin D3) 1,000 Unit Capsule, 2,000 UNIT PO 1200, (Reported) Dabigatran Etexilate Mesylate 150 Mg Capsule, 150 MG PO BID, (Reported) Etodolac 500 Mg Tablet, 500 MG PO BID, (Reported) Ferrous Sulfate 325 Mg Tablet, 325 MG PO DAILY, (Reported) Fluticasone Propionate 16 Gm Glenvil.susp, 2 SPRAYS NS DAILY PRN for ALLERGIES, (Reported) Fluticasone/Vilanterol 1 Each Blst.w.dev, 1 PUFF INH DAILY, (Reported) Gabapentin 800 Mg Tablet, 800 MG PO QID, (Reported) Glucosamine/D3/Boswellia Nellie 1 Each Tablet, 1 TAB PO BID, (Reported) Imipramine HCl 50 Mg Tablet, 50 MG PO HS, (Reported) Insulin Aspart 300 Units/3 Ml Solution, 8 UNITS SQ TIDAC, (Reported) Insulin Glargine,Hum.rec.anlog 100 Unit/1 Ml Vial, 20 UNIT SQ HS, (Reported) Lisinopril 20 Mg Tablet, 20 MG PO DAILY, (Reported) Metformin HCl 1,000 Mg Tablet, 1,000 MG PO BID, (Reported) Metoprolol Succinate 100 Mg Tab.er.24h, 100 MG PO DAILY, (Reported) Mineral Oil/Petrolatum,White 3.5 Gm Oint...g., OU HS, (Reported) Mirabegron 50 Mg Tab.er.24h, 50 MG PO DAILY, (Reported) Multivitamin with Minerals 1 Each Tablet, 1 TAB PO DAILY, (Reported) Nitrofurantoin Macrocrystal 100 Mg Capsule, 100 MG PO 1800, (Reported) [place] 3 Polyunsat Fatty Acids 1,000 Mg Cap, 1,000 MG PO TID, (Reported) Polyethylene Glycol 3350 17 Gm Powd.pack, 17 GM PO DAILY PRN for CONSTIPATION- 2ND LINE, (Reported) Polyvinyl Alcohol/Povidone 15 Ml Drops, 2 DROPS OU Q2H, (Reported) Primidone 250 Mg Tablet, 250 MG PO TID, (Reported) Ranitidine HCl 150 Mg Tablet, 150 MG PO BID PRN for HEARTBURN, (Reported) Solifenacin Succinate 10 Mg Tablet, 10 MG PO 1600, (Reported) Venlafaxine HCl 75 Mg Cap.er.24h, 75 MG PO DAILY, (Reported) Patient Home Medication List Home Medication List Reviewed: Yes Physical Exam-Cardiology Physical Exam Vital Signs/I&O 11/30/18 11/30/18 11/30/18 11/30/18 04:00 07:00 08:00 12:48 Pulse 84 80 83 120 Resp 12 16 B/P (MAP) 117/62 (80) 128/66 (86) Pulse Ox 98 95 O2 Delivery Room Air Room Air 11/30/18 00:00 Intake Total 500 ml Balance 500 ml Capillary Refill : Less Than 3 SecondsLess Than 3 Seconds Constitutional: appears stated age, AAO x 3; No apparent distress; well- developed, well-nourished HEENT: PERRL; No normal ENT inspection, No TMs normal, No pharynx normal, No scleral icterus (R), No scleral icterus (L), No pale conjunctivae (R), No pale conjunctivae (L), No photophobia, No TM abnormal (R), No TM abnormal (L), No pharyngeal erythema, No tonsillar exudate, No other, No discharge, No EOMI; he aring is well preserved; No hard of hearing; oral hygience is good; No ulceration, No xanthelasmas are seen Neck: No non-tender, No full range of motion, No supple, No normal inspection, No carotid bruit, No limited range of motion, No lymphadenopathy (R), No lymphadenopathy (L), No tender lateral, No tender midline, No thyromegaly, No other; carotid pulses are 2 + bilaterally; No with good upstrokes Respiratory: No accessory muscle use, No respiratory distress, No chest tender, No chest expansion is symmetric; chest is bilaterally symmetric; No lungs clear to percussion; lungs clear to auscultation; No crackles, No rhonchi, No rales, No stridor, No wheezing, No pleural rub, No other Cardiovascular: regular rate-rhythm; No irregularly irregular, No extra beats, No parasternal heave is noted, No JVD, No edema, No bradycardia, No tachycardia, No point of maximal impulse, No cardiac thrills are palpable; S1 and S2; No gallop/S3, No gallop/S4, No diastolic murmur, No systolic murmur, No friction rub, No click, No other Gastrointestinal: No tender, No soft, No round, No distended, No pulsatile mass, No organomegaly, No guarding, No rebound, No tenderness, No hernia, No mass, No audible bowel sounds, No abnormal bowel sounds, No abdominal bruits, No spleenomegaly, No other Rectal: deferred Extremities: No normal range of motion, No non-tender, No normal inspection, No pedal edema, No calf tenderness, No normal capillary refill, No pelvis stable, No calf tenderness, No inflammation, No pedal edema, No slow capillary refill, No swelling, No other, No abrasion, No clubbing, No cyanosis, No ecchymosis, No laceration, No no lower extremity edema bilateral, No significant edema, No tenderness, No wound Neurologic/Psychiatric: no motor/sensory deficits, alert, normal mood/affect, oriented x 3, power is 5/5 both on sides Skin: No normal color, No warm/dry, No cyanosis, No cool, No diaphoresis, No damp, No ecchymosis, No jaundice, No mottled, No pallor, No rash, No tattoos/piercings, No ulcerations, No rash on exposed areas, No ulcerations on exposed areas, No other Data Review Labs Laboratory Tests 11/29/18 15:30: White Blood Count 9.2, Red Blood Count 5.21, Hemoglobin 15.2, Hematocrit 46, Mean Corpuscular Volume 88, Mean Corpuscular Hemoglobin 29, Mean Corpuscular Hemoglobin Concent 33, Red Cell Distribution Width 14.7H, Platelet Count 353, Mean Platelet Volume 9.7, Neutrophils (%) (Auto) 54, Lymphocytes (%) (Auto) 33, Monocytes (%) (Auto) 8, Eosinophils (%) (Auto) 5, Basophils (%) (Auto) 0, Neutrophils # (Auto) 4.9, Lymphocytes # (Auto) 3.1, Monocytes # (Auto) 0.7, Eosinophils # (Auto) 0.5H, Basophils # (Auto) 0.0, Prothrombin Time 13.6, INR Comment 1.0, Activated Partial Thromboplast Time 33, Sodium Level 139, Potassium Level 4.4, Chloride Level 100, Carbon Dioxide Level 24, Anion Gap 15H, Blood Urea Nitrogen 16, Creatinine 0.87, Estimat Glomerular Filtration Rate > 60, BUN/ Creatinine Ratio 18, Glucose Level 221H, Calcium Level 9.9, Corrected Calcium 9.7, Magnesium Level 2.0, Total Bilirubin 0.2, Aspartate Amino Transf (AST/SGOT) 20, Alanine Aminotransferase (ALT/SGPT) 30, Alkaline Phosphatase 198H, Myoglobin 39.4, Troponin I 0.052H, B-Type Natriuretic Peptide 350.0H, Total Protein 8.2, Albumin 4.2 11/29/18 21:33: Glucometer 158H 11/29/18 21:42: Troponin I 0.044H 11/30/18 02:55: White Blood Count 8.3, Red Blood Count 4.51, Hemoglobin 13.3, Hematocrit 40, Mean Corpuscular Volume 90, Mean Corpuscular Hemoglobin 30, Mean Corpuscular Hemoglobin Concent 33, Red Cell Distribution Width 14.9H, Platelet Count 301, Mean Platelet Volume 9.9, Neutrophils (%) (Auto) 48, Lymphocytes (%) (Auto) 36, Monocytes (%) (Auto) 9, Eosinophils (%) (Auto) 7, Basophils (%) (Auto) 0, Neutrophils # (Auto) 4.0, Lymphocytes # (Auto) 3.0, Monocytes # (Auto) 0.7, Eosinophils # (Auto) 0.6H, Basophils # (Auto) 0.0, Sodium Level 139, Potassium Level 4.2, Chloride Level 102, Carbon Dioxide Level 26, Anion Gap 11, Blood Urea Nitrogen 16, Creatinine 0.73, Estimat Glomerular Filtration Rate > 60, BUN/Creatinine Ratio 22, Glucose Level 103, Calcium Level 9.4, Corrected Calcium 9.6, Total Bilirubin 0.2, Aspartate Amino Transf (AST/SGOT) 18, Alanine Liang otransferase (ALT/SGPT) 27, Alkaline Phosphatase 173H, Troponin I < 0.028, Total Protein 7.0, Albumin 3.7, Triglycerides Level 72, Cholesterol Level 159, LDL Cholesterol Direct 74, VLDL Cholesterol 14, HDL Cholesterol 72H 11/30/18 11:27: Glucometer 103 ECG Impression ECG Initial ECG Rhythm: Normal Sinus Initial ECG Impression: Normal A/P-Cardiology Assessment/Admission Diagnosis paroxysmal atrial fibrillation, Non-STEMI, Diabetes, Hyperlipidemia, Hypertension. Plan paroxysmal atrial fibrillation, spontaneously converted to sinus rhythm. Continue oral anticoagulation therapy post cardiac catheterization and metoprolol. I discussed at length with the patient about further management of atrial fibrillation including antiarrhythmic therapy. She already has an implantable loop recorder which is followed by Dr. Calvert. I will see her as an outpatient for electrophysiology follow-up. She will wear a likely be started on antiarrhythmic therapy on discharge. Non-STEMI, Coronary angiography today. She was given Brilinta bolus yesterday. Continue Brilinta today. Echocardiogram. Diabetes,on insulin. Defer to the primary team. Hyperlipidemia,Will require high-dose statin therapy. the patient is on atorvastatin 20 mg daily. LDL is 74. I will increase atorvastatin to 40 mg. Hypertension.well controlled. Thank you for your consultation. Please call me if you have any questions. M. Jaydon Russell MD, FACP, FACC, FSCAI, FHRS, CCDS Interventional Cardiology Cardiac Electrophysiology Vascular Medicine and Endovascular Interventions Clinical Quality Measures DVT/VTE Risk/Contraindication: Risk Factor Score Per Nursin RFS Level Per Nursing on Admit: 4+=Very High Janiya RUSSELL MD Nov 30, 2018 13:34
--- NOTE | 2018-11-30 13:36 | Cardiac Procedure Note-CS/ASA ---
Pre-Procedure Note Pre-Op Procedure Note H&P Reviewed The H&P was reviewed, patient examined and no changes noted. Date H&P Reviewed: Nov 30, 2018 Time H&P Reviewed: 09:00 Conscious Sedation Pre-Proced Time 09:00 ASA Score 3 For ASA 3 and 4: Consider anesthesia and medical clearance. Also, for patients with a history of failed moderate sedation consider anesthesia. Airway Lungs Heart ASA score ASA 1: a normal healthy patient ASA 2: a patient with a mild systemic disease (mid diabetes, controlled hypertension, obesity ASA 3: a patient with a severe systemic disease that limits activity (angina, COPD, prior Myocardial infarction) ASA 4: a patient with an incapacitating disease that is a constant threat to life (CHF, renal failure) ASA 5: a moribund patient not expected to survive 24 hrs. (ruptured aneurysm) ASA 6: a declared brain- patient whose organs are being harvested. For emergent operations, add the letter E after the classification Mallampati Classification Grade 1 Sedation Plan Analgesia, Amnesia, Plan communicated to team members, Discussed options with patient/fam, Discussed risks with patient/fam The patient is an appropriate candidate to undergo the planned procedure, sedation, and anesthesia. The patient immediately re-assessed prior to indication. Janiya CORDOVA MD Nov 30, 2018 13:36
[2018-11-30] MEDS: NS IV 1000 ML 1,000 ML IV SCH ×2 (13:42→23:43)
--- NOTE | 2018-11-30 13:42 | Coronary Angiography & PCI ---
Coronary Angiography & PCI DATE OF PROCEDURE: 11/30/18 INDICATION: non-STEMI. PREOPERATIVE DIAGNOSIS: on STEMI. POSTOPERATIVE DIAGNOSIS: severe mid LAD stenosis treated with drug-eluting stent. HISTORY: this is a 67-year-old lady with history of diabetes and paroxysmal atrial fibrillation. She presented with an episode of atrial fibrillation and chest discomfort. Positive cardiac enzymes. Working diagnosis is non- STEMI.Therefore, the patient was scheduled for coronary angiography. PROCEDURES PERFORMED: 1.Coronary angiography. 2.Left heart catheterization. 3.PCI to the mid LAD with drug-eluting stent. COMPLICATIONS: None. SPECIMENS: None. ESTIMATED BLOOD LOSS: 10 mL ANESTHESIA: Conscious sedation ANTICOAGULATION: IV heparin CONTRAST: 150ml. FLUOROSCOPY: 12.6 minutes. FLOUROSCOPY DOSE: 1760 mgy. PROCEDURE DETAILS: The patient is a 67 female and was brought to the screedman/laborer after informed consent was taken. All the risks and complications were explained in detail; this included the risk of bleeding, vascular damage, stroke, OR and even . The patient was draped and prepped in the usual sterile fashion. Access was gained in the right femoral artery with a 5 [place] sheath. Coronary angiography and left heart catheterization was performed with a JR4 and JL4 catheter. FINDINGS: 1.Left main: patent. 2.LAD: severe mid LAD stenosis. Stenosis severity is 80-90 percent. Very tortuous LAD with difficult visualization. Best visualization was in a steep CAED cranial view. 3.Left circumflex artery: no significant disease. 4.RCA: mild mid disease. 5.Left heart catheterization: aortic pressure 125/73 mmHg, LV pressure 126/3 mmHg. LVEDP 3 mmHg. Normal LV function with no wall motion abnormalities. No gradient across the aortic valve. RECOMMENDATIONS: PCI to the mid LAD is recommended. INTERVENTION DETAILS: upgraded to a 6 [place] sheath, JL4 guide catheter, whisper extra-support wire, IV heparin for anti-coagulation. ACT was done twice. The first ACT was 211 seconds. The next ACT was 207 seconds. we crossed the lesion with the whisper wire and placed the tip of the wire in the distal LAD. We tried to direct stent but were not able to get the stent to the lesion. Therefore we predilated with an emerge 2.0 x 20 mm balloon at 10 ollie for 27 seconds. We then were able to cross with difficulty and cover the entire lesion with a resolute integrity 2.5 x 26 mm stent. The stent was deployed at 12 ollie for 36 seconds. Postdilatation was done with an NC Quantum 3.0 x 20 mm balloon at 16 ollie for 30 seconds. Only the proximal and midsegment of the stent was postdilated. No residual stenosis and excellent NICHOLAS-3 flow. Patient tolerated the procedure well and did not have any complications. CONCLUSIONS: 1. severe mid LAD stenosis treated successfully with a drug-eluting stent. 2. Aspirin, Brilinta, pradaxa for one month. After one month continue Brilinta and pradaxa for one year. after one year, dc brilinta and continue aspirin and pradaxa long term care social worker. 3. Observe overnight. IV fluids. Check BUN/creatinine the morning. My Russell MD, FACP, FACC, [facility] Interventional Cardiology Janiya RUSSELL MD Nov 30, 2018 13:42
[2018-11-30] MEDS ORDERED: PATIENT MAY USE OWN MEDS, ALL PO SCH (13:45)
[2018-11-30] MEDS: GABAPENTIN 400 MG (NEURONTIN) CAP PO SCH ×2 (17:10→20:43)
--- NOTE | 2018-11-30 18:20 | NUR ---
Pt found to be in A-fib with RVR. EKG done, Dr. Russell called and new orders were received. Will continue to monitor pt.
[2018-11-30] MEDS ORDERED: meTOprolol SUCCINATE 100 MG (TOPROL XL) TAB PO STA (18:38)
[2018-11-30] MEDS: ATORVASTATIN 10 MG (LIPITOR) TABLET PO SCH (20:43)
[2018-11-30] MEDS ORDERED: FLUTICASONE NASAL SPRAY (FLONASE) 16 GM BTL NS PRN (21:00)
[2018-11-30] MEDS ORDERED: RT-ALBUTEROL SULF 2.5 MG/3 ML PRE-MIX VIAL INH PRN (21:00)
[2018-11-30] MEDS ORDERED: [UNRECOGNIZED DRUG - OTHER] OU SCH (21:00)
[2018-11-30] MEDS ORDERED: NON-FORMULARY MEDICATION 1 EA EA (Ranitidine HCl 150 MG) PO PRN (21:00)
[2018-11-30] MEDS ORDERED: NON-FORMULARY MEDICATION 1 EA EA (Polyethylene Glycol 3350 (Miralax) 17 GM) PO PRN (21:00)
[2018-11-30] MEDS ORDERED: NON-FORMULARY MEDICATION 1 EA EA (Insulin Glargine,Hum.rec.anlog (Lantus) 20 UNIT) SQ SCH (21:00)
[2018-11-30] MEDS ORDERED: POLYVINYL ALCOHOL OU SCH (21:00)
[2018-11-30] MEDS ORDERED: NON-FORMULARY MEDICATION 1 EA EA (Imipramine HCl 50 MG) PO SCH (21:00)
[2018-11-30] MEDS ORDERED: POVIDONE OU SCH (21:00)
[2018-11-30] MEDS ORDERED: PRIMIDONE 250MG (MYSOLINE) TAB ONE (21:24)
[2018-11-30] MEDS: PRIMIDONE 250MG (MYSOLINE) TAB PO SCH (21:40)
[2018-11-30] MEDS ORDERED: POLYETHYLENE GLYCOL 17 GM (MIRALAX) PACK PO PRN (22:00)
[2018-11-30] MEDS ORDERED: FAMOTIDINE 20 MG (PEPCID) TABLET PO PRN (22:00)
[2018-11-30] MEDS: ARTIFICAL TEARS 0.4 ML UNIT DOSE (REFRESH PLUS) OU SCH (22:09)
[2018-12-01] VITALS: BP 119/78
[2018-12-01] MEDS: ARTIFICAL TEARS 0.4 ML UNIT DOSE (REFRESH PLUS) OU SCH ×7 (00:37→12:07)
[2018-12-01] MEDS: HYDROcodone/APAP 5 MG/325 MG (LORTAB) TAB PO PRN (01:04)
[2018-12-01] MEDS ORDERED: meTOprolol 5 MG/5 ML (LOPRESSOR) VIAL ONE (01:23)
[2018-12-01] MEDS ORDERED: meTOprolol 5 MG/5 ML (LOPRESSOR) VIAL IV ONE (01:30)
[2018-12-01 04:00] VITALS: BP 144/80
[2018-12-01 04:07] LABS: MEAN PLATELET VOLUME 10.2 FL (7.4-10.4); RED CELL DISTRIBUTION WIDTH 14.6 % (10.0-14.5); WHITE BLOOD COUNT 8.4 10^3/uL (4.3-11.0)
[2018-12-01 04:31] LABS: BUN/CREATININE RATIO 21; CALCIUM 9.3 MG/DL (8.5-10.1); CARBON DIOXIDE 24 MMOL/L (21-32); CHLORIDE 106 MMOL/L (98-107); CREATININE SERUM 0.66 MG/DL (0.60-1.30); GFR ESTIMATED > 60; GLUCOSE 128 MG/DL (70-105); POTASSIUM 4.2 MMOL/L (3.6-5.0); SODIUM 141 MMOL/L (135-145)
[2018-12-01] MEDS: inSUlin ASPART (NovoLOG) 1 UNIT/0.01 ML (CHARGE PER UNIT) SC SCH ×3 (05:29→12:06)
[2018-12-01] MEDS: CATHETER FLUSH 10 ML SYR IV SCH (05:43)
[2018-12-01] MEDS ORDERED: NON-FORMULARY MEDICATION 1 EA EA (Insulin Aspart (Novolog Flexpen) 8 UNITS) SQ SCH (06:00)
[2018-12-01 08:00] VITALS: BP 168/90
[2018-12-01] MEDS ORDERED: RT-ADVAIR HFA 115/21 MCG PER PUFF IH SCH (08:00)
[2018-12-01] MEDS ORDERED: ADVAIR HFA 115/21 MCG INHALER 8 GM IH SCH (08:10)
[2018-12-01] MEDS: PRIMIDONE 250MG (MYSOLINE) TAB PO SCH (08:38)
[2018-12-01] MEDS: lisINopril 5 MG (PRINIVIL) TABLET PO SCH (08:38)
[2018-12-01] MEDS: ASPIRIN E.C. 81 MG (ECOTRIN) TAB PO SCH (08:39)
[2018-12-01] MEDS: SENNA W/DOCUSATE (SENOKOT S) TABLET PO SCH (08:39)
[2018-12-01] MEDS: meTOprolol SUCCINATE 100 MG (TOPROL XL) TAB PO SCH (08:39)
[2018-12-01] MEDS: TICAGRELOR 90 MG TABLET (BRILINTA) PO SCH (08:39)
[2018-12-01] MEDS: GABAPENTIN 400 MG (NEURONTIN) CAP PO SCH (08:40)
[2018-12-01] MEDS ORDERED: NON-FORMULARY MEDICATION 1 EA EA (Acetaminophen (Tylenol Extra Strength) 1,000 MG) PO SCH (09:00)
[2018-12-01] MEDS ORDERED: LORATADINE (CLARITIN) 10 MG TAB PO SCH (09:00)
[2018-12-01] MEDS ORDERED: ACETAMINOPHEN 500 MG TAB (TYLENOL) PO SCH (09:00)
[2018-12-01] MEDS ORDERED: VENlafaxine 75 MG (EFFEXOR) TAB PO SCH (09:00)
[2018-12-01] MEDS ORDERED: NON-FORMULARY MEDICATION 1 EA EA (Venlafaxine HCl (Venlafaxine HCl ER) 75 MG) PO SCH (09:00)
[2018-12-01] MEDS ORDERED: NON-FORMULARY MEDICATION 1 EA EA (Mirabegron (Myrbetriq) 50 MG) PO SCH (09:00)
[2018-12-01] MEDS ORDERED: NON-FORMULARY MEDICATION 1 EA EA (Cetirizine HCl (Zyrtec) 10 MG) PO SCH (09:00)
[2018-12-01] MEDS ORDERED: ASPIRIN E.C. 81 MG (ECOTRIN) TAB PO SCH (09:00)
--- NOTE | 2018-12-01 09:12 | Cardiology Progress Note ---
Cardiology SOAP Progress Note Subjective: No cardiac complaints. Objective: I&O/Vital Signs 11/30/18 12/01/18 12/01/18 12/01/18 22:58 00:00 00:00 00:18 Temp 97.0 Pulse 130 122 106 Resp 19 B/P (MAP) 119/78 (92) Pulse Ox 98 O2 Delivery Room Air Room Air 12/01/18 12/01/18 12/01/18 12/01/18 01:00 04:00 04:00 05:00 Temp 96.9 Pulse 141 86 Resp 17 B/P (MAP) 144/80 (101) O2 Delivery Room Air Room Air 12/01/18 12/01/18 12/01/18 12/01/18 07:00 08:00 08:00 09:00 Pulse 85 89 Resp 19 B/P (MAP) 168/90 (116) O2 Delivery Room Air Room Air Room Air 12/01/18 00:00 Intake Total 1500 ml Output Total 500 ml Balance 1000 ml Weight (Pounds): 310 Weight (Ounces): 0.0 Weight (Calculated Kilograms): [id number] Constitutional: appears stated age, AAO x 3; No apparent distress; well-develop ed, well-nourished Respiratory: No accessory muscle use, No respiratory distress, No chest tender, No chest expansion is symmetric; chest is bilaterally symmetric; No lungs clear to percussion; lungs clear to auscultation; No crackles, No rhonchi, No rales, No stridor, No wheezing, No pleural rub, No other Cardiovascular: regular rate-rhythm; No irregularly irregular, No extra beats, No parasternal heave is noted, No JVD, No edema, No bradycardia, No tachycardia, No point of maximal impulse, No cardiac thrills are palpable; S1 and S2; No gallop/S3, No gallop/S4, No diastolic murmur, No systolic murmur, No friction rub, No click, No other Gastrointestional: No tender, No soft, No round, No distended, No pulsatile mass, No organomegaly, No guarding, No rebound, No tenderness, No hernia, No mass, No audible bowel sounds, No abnormal bowel sounds, No abdominal bruits, No spleenomegaly, No other Extremities: No normal range of motion, No non-tender, No normal inspection, No pedal edema, No calf tenderness, No normal capillary refill, No pelvis stable, N o calf tenderness, No inflammation, No pedal edema, No slow capillary refill, No swelling, No other, No abrasion, No clubbing, No cyanosis, No ecchymosis, No laceration, No no lower extremity edema bilateral, No significant edema, No tenderness, No wound Neurologic/Psychiatric: no motor/sensory deficits, alert, normal mood/affect, oriented x 3, power is 5/5 both on sides Skin: No normal color, No warm/dry, No cyanosis, No cool, No diaphoresis, No damp, No ecchymosis, No jaundice, No mottled, No pallor, No rash, No tattoos/piercings, No ulcerations, No rash on exposed areas, No ulcerations on exposed areas, No other Results/Procedures: Labs Laboratory Tests 11/30/18 11:27: Glucometer 103 11/30/18 15:45: Glucometer 97 11/30/18 21:15: Glucometer 247H 12/01/18 03:26: White Blood Count 8.4, Red Blood Count 4.39, Hemoglobin 13.0, Hematocrit 39, Mean Corpuscular Volume 90, Mean Corpuscular Hemoglobin 30, Mean Corpuscular Hemoglobin Concent 33, Red Cell Distribution Width 14.6H, Platelet Count 279, Mean Platelet Volume 10.2, Sodium Level 141, Potassium Level 4.2, Chloride Level 106, Carbon Dioxide Level 24, Anion Gap 11, Blood Urea Nitrogen 14, Creatinine 0.66, Estimat Glomerular Filtration Rate > 60, BUN/Creatinine Ratio 21, Glucose Level 128H, Calcium Level 9.3 A/P: Assessment/Dx: paroxysmal atrial fibrillation, Non-STEMI, Diabetes, Hyperlipidemia, Hypertension. Plan: paroxysmal atrial fibrillation, spontaneously converted to sinus rhythm. Continue oral anticoagulation therapy post cardiac catheterization and metoprolol. I discussed at length with the patient about further management of atrial fibrillation including antiarrhythmic therapy. She already has an implantable loop recorder which is followed by Dr. Calvert. I will see her as an outpatient for electrophysiology follow-up. She will wear a likely be started on antiarrhythmic therapy on discharge. Non-STEMI, Coronary angiography 11/30/2018 showed severe mid LAD stenosis treated with one drug-eluting stent. Excellent results post intervention. Patient will continue on dual antiplatelet therapy for at least a year. Patient will follow with Dr. Calvert/Krupa as an outpatient. I will see her for electrophysiology consultation in 2-3 weeks and plan on starting antiarrhythmic therapy at that point in time. Also I did discuss with the patient that she will be on 3 blood thinners including aspirin, Brilinta and pradaxa for a month and then discontinue aspirin and continue Brilinta and oral anticoagulation for another 11 months. After a total of 12 months from the procedure she can go off Brilinta and continue aspirin and oral anticoagulation long-term. Diabetes,on insulin. Defer to the primary team. Hyperlipidemia,Will require high-dose statin therapy. the patient is on atorvastatin 20 mg daily. LDL is 74. I will increase atorvastatin to 40 mg. Hypertension.well controlled. Thank you for your consultation. Please call me if you have any questions. My Russell MD, FACP, FACC, FSCAI, FHRS, CCDS Interventional Cardiology Cardiac Electrophysiology Vascular Medicine and Endovascular Interventions Janiya RUSSELL MD Dec 01, 2018 09:12
[2018-12-01] MEDS ORDERED: ATOR40TA70 PO (09:15)
[2018-12-01] MEDS ORDERED: TICA90TA PO (09:15)
[2018-12-01] MEDS: NS IV 1000 ML 1,000 ML IV SCH (10:43)
[2018-12-01] MEDS ORDERED: inSUlin ASPART (NovoLOG) 1 UNIT/0.01 ML (CHARGE PER UNIT) SC SCH (11:00)
[2018-12-01] MEDS ORDERED: METF-399 PO (11:01)
--- NOTE | 2018-12-01 11:02 | Discharge Summary ---
Diagnosis/Chief Complaint Date of Admission Nov 30, 2018 at 14:55 Date of Discharge Discharge Date: Dec 01, 2018 Admission Diagnosis Assessment: NSTEMI with elevated troponin requiring cardiac cath and placement of a stent in LAD Chronic AF Bilateral Charcot joints of the feet Chronic disability EJNNA Neuropathy Mental illness Plan: Appreciate Dr Russell expertise Pradaxa, ASA, Brilinta Most of home meds to restart Discharge Diagnosis (1) NSTEMI (non-ST elevated myocardial infarction) Status: Acute (2) Stented coronary artery Status: Acute (3) S/P cardiac catheterization Status: Acute (4) JENNA (obstructive sleep apnea) Status: Chronic (5) Chronic mental illness Status: Chronic (6) Angina pectoris Status: Chronic (7) Elevated troponin I level Status: Acute (8) Atrial fibrillation with rapid ventricular response Status: Acute (9) ACS (acute coronary syndrome) Status: Acute (10) Chest pain Status: Acute Discharge Summary Discharge Physical Exam Allergies: Coded Allergies: amylase (Verified Allergy, Unknown, 08/07/15) black cohosh (Verified Allergy, Unknown, 08/07/15) cellulase (Verified Allergy, Unknown, 08/07/15) glyburide (Verified Allergy, Unknown, 08/07/15) isosorbide (Verified Allergy, Unknown, 08/07/15) lipase (Verified Allergy, Unknown, 08/07/15) protease (Verified Allergy, Unknown, 08/07/15) Vitals & I&Os Vital Signs Date Time Temp Pulse Resp B/P (MAP) Pulse Ox O2 Delivery O2 Flow Rate FiO2 12/01/18 10:43 Room Air 12/01/18 08:00 89 19 168/90 (116) 12/01/18 05:00 96.9 11/30/18 22:58 98 General Appearance: No Apparent Distress, WD/WN Neurologic/Psychiatric: Alert, Oriented x3, No Motor/Sensory Deficits, Normal Mood/Affect Hospital Course Was the Problem List Reviewed?: Yes Hospital course: Patient had an uneventful hospital course she was placed in cardiac stepdown for elevated troponin with chest pain. She underwent cardiac catheterization had stent deployed with no complications. Atrial fibrillation with rapid ventricular response was controlled on cardiology medications she annamaria l remain on aspirin and Brilinta and Pradaxa at discharge. Labs (last 24 hrs) Laboratory Tests 11/30/18 15:45: Glucometer 97 11/30/18 21:15: Glucometer 247H 12/01/18 03:26: White Blood Count 8.4, Red Blood Count 4.39, Hemoglobin 13.0, Hematocrit 39, Mean Corpuscular Volume 90, Mean Corpuscular Hemoglobin 30, Mean Corpuscular Hemoglobin Concent 33, Red Cell Distribution Width 14.6H, Platelet Count 279, Mean Platelet Volume 10.2, Sodium Level 141, Potassium Level 4.2, Chloride Level 106, Carbon Dioxide Level 24, Anion Gap 11, Blood Urea Nitrogen 14, Creatinine 0.66, Estimat Glomerular Filtration Rate > 60, BUN/Creatinine Ratio 21, Glucose Level 128H, Calcium Level 9.3 12/01/18 09:18: Glucometer 119H 12/01/18 11:17: Glucometer 264H 12/01/18 11:57: Patient resulted labs reviewed. Pending Labs Laboratory Tests 12/01/18 09:18: Glucometer 119 12/01/18 11:17: Glucometer 264 12/01/18 11:57: Urine Color [Pending], Urine Clarity [Pending], Urine pH [Pending], Urine Specific [place] [Pending], Urine Protein [Pending], Urine Glucose (UA) [Pending], Urine Ketones [Pending], Urine Nitrite [Pending], Urine Bilirubin [Pending], Urine Urobilinogen [Pending], Urine Leukocyte Esterase [Pending], Urine RBC (Auto) [Pending], Urine RBC [Pending], Urine WBC [Pending], Urine Crystals [Pending], Urine Bacteria [Pending], Urine Casts [Pending], Urine Mucus [Pending], Urine Culture Indicated [Pending] Discussion & Recommendations Discharge Planning: <30 minutes discharge planning Discharge Home Medications: Active Scripts Active Metformin HCl 1,000 Mg Tablet 1,000 Mg PO BID 30 Days start back on Metformin on 12/03/18 Brilinta (Ticagrelor) 90 Mg Tablet 90 Mg PO BID 90 Days Atorvastatin Calcium 40 Mg Tablet 80 Mg PO HS 90 Days Reported Miralax (Polyethylene Glycol 3350) 17 Gm Powd.pack 17 Gm PO DAILY PRN Ferrous Sulfate 325 Mg Tablet 325 Mg PO DAILY Fluticasone Propionate 16 Gm [place].susp 2 Sprays NS DAILY PRN Zyrtec (Cetirizine HCl) 10 Mg Tablet 10 Mg PO DAILY Venlafaxine HCl ER (Venlafaxine HCl) 75 Mg Cap.er.24h 75 Mg PO DAILY Tylenol Extra Strength (Acetaminophen) 500 Mg Tablet 1,000 Mg PO DAILY PRN TAKES 2 (500MG) TABLETS; ALWAYS TAKES 2 IN THE MORNING AND OCCASIONALLY WILL TAKE ANOTHER DOSE LATER IN THE DAY NEEDED Fish Oil 1,000 mg Capsule ([place] 3 Polyunsat Fatty Acids) 1,000 Mg Cap 1,000 Mg PO TID Pradaxa (Dabigatran Etexilate Mesylate) 150 Mg Capsule 150 Mg PO BID Gabapentin 800 Mg Tablet 800 Mg PO QID Ventolin Hfa (Albuterol Sulfate) 1 Puff Puff 2 Puff INH QID PRN Vesicare (Solifenacin Succinate) 10 Mg Tablet 10 Mg PO 1600 Mysoline (Primidone) 250 Mg Tablet 250 Mg PO TID Breo Ellipta 200-25 Mcg INH (Fluticasone/Vilanterol) 1 Each Blst.w.dev 1 Puff INH DAILY Lisinopril 20 Mg Tablet 20 Mg PO DAILY Imipramine HCl 50 Mg Tablet 50 Mg PO HS Nitrofurantoin (Nitrofurantoin Macrocrystal) 100 Mg Capsule 100 Mg PO 1800 Metoprolol Succinate 100 Mg Tab.er.24h 100 Mg PO DAILY Myrbetriq (Mirabegron) 50 Mg Tab.er.24h 50 Mg PO DAILY Vitamin D3 (Cholecalciferol (Vitamin D3)) 1,000 Unit Capsule 2,000 Unit PO 1200 Aspir 81 (Aspirin) 81 Mg Tablet.dr 81 Mg PO DAILY Osteo Bi-Flex Caplet (Glucosamine/D3/Boswellia Nellie) 1 Each Tablet 1 Tab PO BID Multivitamins with Minerals (Multivitamin with Minerals) 1 Each Tablet 1 Tab PO DAILY Lantus (Insulin Glargine,Hum.rec.anlog) 100 Unit/1 Ml Vial 20 Unit SQ HS Tylenol Extra Strength (Acetaminophen) 500 Mg Tablet 1,000 Mg PO DAILY TAKES 2 (500MG) TABLETS Etodolac 500 Mg Tablet 500 Mg PO BID Calcium 500 + Vit D Caplet (Calcium Carbonate/Vitamin D3) 1 Each Tablet 1 Tab PO BID Novolog Flexpen (Insulin Aspart) 300 Units/3 Ml Solution 8 Units SQ TIDAC Ranitidine HCl 150 Mg Tablet 150 Mg PO BID PRN Refresh Lacri-Lube Ointment (Mineral Oil/Petrolatum,White) 3.5 Gm Oint...g. OU HS Artificial Tears Drops (Polyvinyl Alcohol/Povidone) 15 Ml Drops 2 Drops OU Q2H Instructions to patient/family Please see electronic discharge instructions given to patient. Clinical Quality Measures DVT/VTE Risk/Contraindication: Risk Factor Score Per Nursin RFS Level Per Nursing on Admit: 4+=Very High Problem Qualifiers (1) Chest pain: Chest pain type: unspecified Qualified Codes: R07.9 - Chest pain, unspecified SAWYER TELLO DO Dec 01, 2018 11:02
[2018-12-01 12:03] LABS: CLARITY,URINE CLEAR; COLOR,URINE YELLOW; GLUCOSE, URINE (UA) 3+ (NEGATIVE); KETONES,URINE 1+ (NEGATIVE); LEUKOCYTE ESTERASE ,URINE 3+ (NEGATIVE); NITRITE,URINE NEGATIVE (NEGATIVE); PH,URINE 5 (5-9); PROTEIN,URINE 2+ (NEGATIVE); UROBILINOGEN,URINE NORMAL (NORMAL)
[2018-12-01 12:32] LABS: BACTERIA,URINE MODERATE /HPF; RBC,URINE 0-2 /HPF; WBC,URINE >100 /HPF
[2018-12-01 12:33] LABS: BILIRUBIN,URINE 1+ (NEGATIVE)
[2018-12-01] MEDS ORDERED: TROSPIUM 20 MG (SANCTURA) TAB PO SCH (16:00)
[2018-12-01] MEDS ORDERED: NON-FORMULARY MEDICATION 1 EA EA (Solifenacin Succinate (Vesicare) 10 MG) PO SCH (16:00)
[2018-12-01] MEDS ORDERED: NITROFURANTOIN MACROCRYSTAL 100 MG PO SCH (18:00)
[2018-12-01] MEDS ORDERED: NITROFURANTOIN 100 MG (MACROBID) CAPSULE PO SCH (18:00)
[2018-12-01] MEDS ORDERED: IMIPRAMINE 25 MG (TOFRANIL) TAB PO SCH (21:00)
== END 2018-12-01 13:43 | disposition home or self-care (01) | DRG 247 ==
LOC: EDUNIT# 15:23 → ER 15:24 → UNDOADMOB 17:20 → ICU 17:20 → OBSVTOIN 11-30 14:55 → INTOOBSV 11-30 14:55 → UNDODISIN 12-01 13:43
PROVIDERS: ADMIT Internal Medicine; ATTEND Internal Medicine
PROC: 027034Z Dilation of Coronary Artery, One Artery with Drug-eluting Intraluminal Device, Percutaneous Approach (ICD-10-PCS; principal; 2018-11-30)
PROC: 4A023N7 Measurement of Cardiac Sampling and Pressure, Left Heart, Percutaneous Approach (ICD-10-PCS; 2018-11-30)
PROC: B2111ZZ Fluoroscopy of Multiple Coronary Arteries using Low Osmolar Contrast (ICD-10-PCS; 2018-11-30)
DX: I21.4 Non-ST elevation (NSTEMI) myocardial infarction (principal); Z68.41 Body mass index [BMI] 40.0-44.9, adult; G47.33 Obstructive sleep apnea (adult) (pediatric); F99 Mental disorder, not otherwise specified; I48.0 Paroxysmal atrial fibrillation; I25.119 Atherosclerotic heart disease of native coronary artery with unspecified angina pectoris; E11.40 Type 2 diabetes mellitus with diabetic neuropathy, unspecified; E11.618 Type 2 diabetes mellitus with other diabetic arthropathy; J45.909 Unspecified asthma, uncomplicated; K21.9 Gastro-esophageal reflux disease without esophagitis; M19.91 Primary osteoarthritis, unspecified site; F32.9 Major depressive disorder, single episode, unspecified; I24.9 Acute ischemic heart disease, unspecified; E66.01 Morbid (severe) obesity due to excess calories; E78.5 Hyperlipidemia, unspecified; I10 Essential (primary) hypertension; K59.09 Other constipation; Z79.4 Long term (current) use of insulin; Z87.891 Personal history of nicotine dependence
CPT/HCPCS: 36415; 71045; 80048; 80053; 80061; 81000; 82962; 83735; 83874; 83880; 84484; 85025; 85027; 85347; 85610; 85730; 87077; 87088; 87186; 93005; 93041; 93306; 93458; 94640; 96374

== ENCOUNTER 2018-12-20 21:47 | Observation (INO) | payer MEDICARE, MEDICAID ==
[~2018-12-20] VITALS: Ht 179.1 cm; Wt 135.6 kg
[~2018-12-20 21:47] MED LIST changes: +CETI10TA20 PO; +DABI150C5 PO; +FLUT16SP22 NS; +FLUT1BLS INH; +GABA800T10 PO; +IMIP50TA4 PO; +LISI-552 PO; +METO-395 PO; +NITR100C PO; +OMG1KC PO; +POLY17PO6 PO; +PRIM250T33 PO; +RT-ALBUINH INH; +SOLI10TA2 PO; +TICA90TA PO; +VENL75CA93 PO
[2018-12-20] MEDS ORDERED: ASPIRIN 81 MG CHEW (CHILDREN'S ASA) ONE (21:52)
[2018-12-20] MEDS ORDERED: LORazepam INJ 2 MG/ML (ATIVAN) VIAL IVP ONE (22:00)
[2018-12-20] MEDS ORDERED: NITROGLYCERIN 2% OINT 1 GM UNIT DOSE PACKET TOP ONE (22:00)
[2018-12-20] MEDS ORDERED: ASPIRIN 81 MG CHEW (CHILDREN'S ASA) PO ONE (22:00)
[2018-12-20 22:07] LABS: BASOPHILS % (AUTO) 0 % (0-10); EOSINOPHILS # (AUTO) 0.3 10^3/uL (0.0-0.3); EOSINOPHILS % (AUTO) 4 % (0-10); HEMATOCRIT 40 % (35-52); HEMOGLOBIN 13.7 G/DL (11.5-16.0); LYMPHOCYTES # (AUTO) 2.7 X 10^3 (1.0-4.0); LYMPHOCYTES % (AUTO) 34 % (12-44); MEAN CORPUSCULAR HEMOGLOBIN 30 PG (25-34); MEAN CORPUSCULAR HGB CONC 34 G/DL (32-36); MEAN CORPUSCULAR VOLUME 88 FL (80-99); MEAN PLATELET VOLUME 10.1 FL (7.4-10.4); MONOCYTES # (AUTO) 0.6 X 10^3 (0.0-1.0); MONOCYTES % (AUTO) 8 % (0-12); NEUTROPHILS # (AUTO) 4.1 X 10^3 (1.8-7.8); NEUTROPHILS % (AUTO) 53 % (42-75); PLATELET COUNT 315 10^3/uL (130-400); RED CELL DISTRIBUTION WIDTH 14.3 % (10.0-14.5); WHITE BLOOD COUNT 7.7 10^3/uL (4.3-11.0)
[2018-12-20 22:10] LABS: INR 1.1 (0.8-1.4); PROTHROMBIN TIME PATIENT 14.4 SEC (12.2-14.7)
[2018-12-20 22:19] LABS: ALANINE AMINOTRANSFERASE 33 U/L (0-55); ALBUMIN 3.6 GM/DL (3.2-4.5); ALKALINE PHOSPHATASE 186 U/L (40-136); BILIRUBIN,TOTAL 0.1 MG/DL (0.1-1.0); BUN/CREATININE RATIO 22; CARBON DIOXIDE 20 MMOL/L (21-32); CHLORIDE 107 MMOL/L (98-107); CREATININE SERUM 0.77 MG/DL (0.60-1.30); GFR ESTIMATED > 60; GLUCOSE 115 MG/DL (70-105); MAGNESIUM 1.7 MG/DL (1.8-2.4); SODIUM 141 MMOL/L (135-145); TOTAL PROTEIN 7.2 GM/DL (6.4-8.2)
[2018-12-20] MEDS ORDERED: MAGNESIUM OXIDE (MAG-OX)400 MG TAB PO ONE (22:45)
--- NOTE | 2018-12-20 22:54 | NUR ---
PT TO [facility]PT W/STAFF VIA W/C IN STABLE CONDITION
[2018-12-20] MEDS ORDERED: HOLD METFORMIN - RECEIVED CONTRAST 20 ML VIAL IV SCH (23:30)
[2018-12-20] MEDS ORDERED: IOHEXOL 350 MG/ML 150 ML (OMNIPAQUE 350) VIAL IV ONE (23:30)
[2018-12-20] MEDS ORDERED: NS 100 ML (IVPB) BAG IV ONE (23:30)
[2018-12-21] VITALS (11 sets, daily range): BP systolic 110–161; BP diastolic 58–85
--- NOTE | 2018-12-21 00:20 | ED Cardiac General ---
History of Present Illness General Chief Complaint: Respiratory Problems Stated Complaint: CHEST PAIN Nursing Triage Note: PT ARRIVES VIA EMS, STATES SHE BECAME SOB AROUND 2044 WHILE MAKING HER BED, STAT DOWN, DYSPNEA DID NOT IMPROVE. PT VERBALIZED A HX OF NM WITH STENT PLACEMENT. Source: patient, EMS, old records History of Present Illness Date Seen by Provider: Dec 21, 2018 Time Seen by Provider: 21:45 Initial Comments PT ARRIVES VIA EMS FROM HOME PT STATES SHE BEGAN HAVING SHORTNESS OF BREATH AND MID AND LEFT CHEST PAIN, RADIATING THROUGH TO BACK--PAIN BEGAN AT 2044 TONIGHT WHILE MAKING THE BED MAINLY C/O SHORTNESS OF BREATH NOW, SINCE ARRIVING IN ER NO FEVER OR RECENT ILLNESS NO PALPITATIONS NO SYNCOPE NO DIZZINESS NO NAUSEA/VOMITING NO CHANGE IN CHRONIC LEG SWELLING PT HAS HISTORY OF ATRIAL FIBRILLATION AND HAD LOOP RECORDER DEVICE PLACED 08/2018 PT HAD NSTEMI 11/30/18 , WITH ATRIAL FIB/RVR AND 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 CORDOVA ON Tuesday12/15/18 AND WAS HAVING THESE SAME SYMPTOMS SHE STATES SHE WAS ALSO HAVING TACHYCARDIA HE DOUBLED HER METOPROLOL HE ALSO RESTARTED HER PRADAXA--PT HAD SELF DC'D IT FOR THE WEEK PRIOR BECAUSE SHE "DIDN'T FEEL GOOD" PT ALSO STOPPED TAKING ASPIRIN PT ALSO RECENTLY SWITCHED FROM BRILLINTA TO PRASUGREL/EFFIENT Allergies and Home Medications Allergies Coded Allergies: amylase (Verified Allergy, Unknown, 08/07/15) black cohosh (Verified Allergy, Unknown, 08/07/15) cellulase (Verified Allergy, Unknown, 08/07/15) glyburide (Verified Allergy, Unknown, 08/07/15) isosorbide (Verified Allergy, Unknown, 08/07/15) lipase (Verified Allergy, Unknown, 08/07/15) protease (Verified Allergy, Unknown, 08/07/15) Home Medications Acetaminophen 500 Mg Tablet, 1,000 MG PO DAILY, (Reported) TAKES 2 (500MG) TABLETS Acetaminophen 500 Mg Tablet, 1,000 MG PO DAILY PRN for PAIN-MILD, (Reported) TAKES 2 (500MG) TABLETS; ALWAYS TAKES 2 IN THE MORNING AND OCCASIONALLY WILL TAKE ANOTHER DOSE LATER IN THE DAY NEEDED Albuterol Sulfate 1 Puff Puff, 2 PUFF INH QID PRN for SHORTNESS OF BREATH, (Reported) Aspirin 81 Mg Tablet., 81 MG PO DAILY, (Reported) Atorvastatin Calcium 40 Mg Tablet, 80 MG PO HS Prescribed by: Janiya CORDOVA on 12/01/18 0915 Calcium Carbonate/Vitamin D3 1 Each Tablet, 1 TAB PO BID, (Reported) Cetirizine HCl 10 Mg Tablet, 10 MG PO DAILY, (Reported) Cholecalciferol (Vitamin D3) 1,000 Unit Capsule, 2,000 UNIT PO 1200, (Reported) Dabigatran Etexilate Mesylate 150 Mg Capsule, 150 MG PO BID, (Reported) Etodolac 500 Mg Tablet, 500 MG PO BID, (Reported) Ferrous Sulfate 325 Mg Tablet, 325 MG PO DAILY, (Reported) Fluticasone Propionate 16 Gm [place].susp, 2 SPRAYS NS DAILY PRN for ALLERGIES, (Reported) Fluticasone/Vilanterol 1 Each Blst.w.dev, 1 PUFF INH DAILY, (Reported) Gabapentin 800 Mg Tablet, 800 MG PO QID, (Reported) Glucosamine/D3/Boswellia Nellie 1 Each Tablet, 1 TAB PO BID, (Reported) Imipramine HCl 50 Mg Tablet, 50 MG PO HS, (Reported) Insulin Aspart 300 Units/3 Ml Solution, 8 UNITS SQ TIDAC, (Reported) Insulin Glargine,Hum.rec.anlog 100 Unit/1 Ml Vial, 20 UNIT SQ HS, (Reported) Lisinopril 20 Mg Tablet, 20 MG PO DAILY, (Reported) Metformin HCl 1,000 Mg Tablet, 1,000 MG PO BID start back on Metformin on 12/03/18 Prescribed by: SAWYER TELLO on 12/01/18 1101 Metoprolol Succinate 100 Mg Tab.er.24h, 100 MG PO DAILY, (Reported) Mineral Oil/Petrolatum,White 3.5 Gm Oint...g., OU HS, (Reported) Mirabegron 50 Mg Tab.er.24h, 50 MG PO DAILY, (Reported) Multivitamin with Minerals 1 Each Tablet, 1 TAB PO DAILY, (Reported) Nitrofurantoin Macrocrystal 100 Mg Capsule, 100 MG PO 1800, (Reported) [place] 3 Polyunsat Fatty Acids 1,000 Mg Cap, 1,000 MG PO TID, (Reported) Polyethylene Glycol 3350 17 Gm Powd.pack, 17 GM PO DAILY PRN for CONSTIPATION- 2ND LINE, (Reported) Polyvinyl Alcohol/Povidone 15 Ml Drops, 2 DROPS OU Q2H, (Reported) Primidone 250 Mg Tablet, 250 MG PO TID, (Reported) Ranitidine HCl 150 Mg Tablet, 150 MG PO BID PRN for HEARTBURN, (Reported) Solifenacin Succinate 10 Mg Tablet, 10 MG PO 1600, (Reported) Ticagrelor 90 Mg Tablet, 90 MG PO BID Prescribed by: Janiya CORDOVA on 12/01/18 0915 Venlafaxine HCl 75 Mg Cap.er.24h, 75 MG PO DAILY, (Reported) Patient Home Medication List Home Medication List Reviewed: Yes Review of Systems Review of Systems Constitutional: no symptoms reported; No diaphoresis Respiratory: See HPI; Denies Cough; Shortness of Air; Denies Wheezing Cardiovascular: See HPI, Chest Pain, Edema (CHRONIC/STABLE--LEFT > RIGHT); Denies Irregular Heart Rate, Denies Lightheadedness, Denies Palpitations, Denies Syncope Gastrointestinal: No Symptoms Reported Musculoskeletal: no symptoms reported Skin: no symptoms reported Psychiatric/Neurological: Anxiety Endocrine: No Symptoms Reported Hematologic/Lymphatic: No Symptoms Reported Past [id number] Hx Patient Social History Alcohol Use: Denies Use Recreational Drug Use: No Smoking Status: Former Smoker Type Used: Cigarettes Former Smoker, Quit: May 18, 1980 2nd Hand Smoke Exposure: No Recent Foreign Travel: No Contact w/Someone Who Travel: No Recent Infectious Disease Expo: No Recent Hopitalizations: No Immunizations Up To Date Tetanus Booster (TDap): Unknown PED Vaccines UTD: Yes Date of Pneumonia Vaccine: Nov 30, 2016 Date of Influenza Vaccine: Feb 28, 2017 Seasonal Allergies Seasonal Allergies: No Past Medical History Surgeries: Yes (LEFT KNEE ACL, ORAL-GUM, CATARACTS, RIGHT SHOULDER SCOPE, D&C WITH IUD;LOOP RECORDER 11/01/18; CARDIAC CATH WITH STENT 11/30/2018) Cardiac, Coronary Stent, Eye Surgery, Orthopedic Respiratory: Yes Asthma, Sleep Apnea Currently Using CPAP: Yes Currently Using BIPAP: No Cardiac: Yes (AFIB AND NSTEMI 11/30/18--CARDIAC CATH WITH STENT X 1 ) Atrial Fibrillation, Coronary Artery Disease, Heart Attack, High Cholesterol, Hypertension Neurological: Yes Neuropathy : No 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 Disorders: Yes Female 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 Disorders: Denies 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 Sexually Transmitted Disease: No HIV/AIDS: No Genitourinary: Yes UTI-Chronic Gastrointestinal: Yes Gastroesophageal Reflux, Chronic Constipation Musculoskeletal: Yes (Charcot's Disease-IN FEET AND ANKLES) Degenerate Disk Disease, Arthritis, Chronic Back Pain Endocrine: Yes Diabetes, Insulin dep HEENT: Yes Cataract Loss of Vision: Bilateral Hearing Impairment: Denies Cancer: No Psychosocial: Yes Anxiety, Depression Integumentary: No Blood Disorders: No Adverse Reaction/Blood Tranf: No Family Medical History Cardiovascular disease 19 FATHER 19 MOTHER Colon cancer 19 MOTHER Diabetes mellitus 19 MOTHER G8 BROTHER G8 SISTER Physical Exam Vital Signs Vital Signs - First Documented 12/20/18 12/20/18 21:47 21:48 Temp 96.9 Pulse 80 Resp 28 B/P (MAP) 157/97 (117) Pulse Ox 98 O2 Delivery Room Air FiO2 100 Capillary Refill : Less Than 3 Seconds Height, Weight, BMI Height: 5'10.50" Weight: 308lbs. 0.0oz. 139.487943kz; 43.9 BMI Method:Stated General Appearance: Obese, Other (ANXIOUS, HYPERVENTILATING / DYSPNEIC, YET TALKING NON-STOP AT GREAT LENGTH AND DIFFICULT TO GET PT TO STOP TALKING LONG ENOUGH TO ASK HER ANY QUESTIONS. 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 Norm as Tested Skin: Normal Color, Warm/Dry Progress/Results/Core Measures Results/Orders Lab Results Laboratory Tests Test 12/20/18 21:50 Range/Units White Blood Count 7.7 4.3-11.0 10^3/uL Red Blood Count 4.58 4.35-5.85 10^6/uL Hemoglobin 13.7 11.5-16.0 G/DL Hematocrit 40 35-52 % Mean Corpuscular Volume 88 80-99 FL Mean Corpuscular Hemoglobin 30 25-34 PG Mean Corpuscular Hemoglobin Concent 34 32-36 G/DL Red Cell Distribution Width 14.3 10.0-14.5 % Platelet Count 315 130-400 10^3/uL Mean Platelet Volume 10.1 7.4-10.4 FL Neutrophils (%) (Auto) 53 42-75 % Lymphocytes (%) (Auto) 34 12-44 % Monocytes (%) (Auto) 8 0-12 % Eosinophils (%) (Auto) 4 0-10 % Basophils (%) (Auto) 0 0-10 % Neutrophils # (Auto) 4.1 1.8-7.8 X 10^3 Lymphocytes # (Auto) 2.7 1.0-4.0 X 10^3 Monocytes # (Auto) 0.6 0.0-1.0 X 10^3 Eosinophils # (Auto) 0.3 0.0-0.3 10^3/uL Basophils # (Auto) 0.0 0.0-0.1 10^3/uL Prothrombin Time 14.4 12.2-14.7 SEC INR Comment 1.1 0.8-1.4 Activated Partial Thromboplast Time 31 24-35 SEC Sodium Level 141 135-145 MMOL/L Potassium Level 4.0 3.6-5.0 MMOL/L Chloride Level 107 98-107 MMOL/L Carbon Dioxide Level 20 L 21-32 MMOL/L Anion Gap 14 5-14 MMOL/L Blood Urea Nitrogen 17 7-18 MG/DL Creatinine 0.77 0.60-1.30 MG/DL Estimat Glomerular Filtration Rate > 60 BUN/Creatinine Ratio 22 Glucose Level 115 H 70-105 MG/DL Calcium Level 9.0 8.5-10.1 MG/DL Corrected Calcium 9.3 8.5-10.1 MG/DL Magnesium Level 1.7 L 1.8-2.4 MG/DL Total Bilirubin 0.1 0.1-1.0 MG/DL Aspartate Amino Transf (AST/SGOT) 21 5-34 U/L Alanine Aminotransferase (ALT/SGPT) 33 0-55 U/L Alkaline Phosphatase 186 H 40-136 U/L Myoglobin 21.0 10.0-92.0 NG/ML Troponin I < 0.028 <0.028 NG/ML B-Type Natriuretic Peptide 51.7 <100.0 PG/ML Total Protein 7.2 6.4-8.2 GM/DL Albumin 3.6 3.2-4.5 GM/DL My Orders Orders - CALLUM ALCAZAR DO Cbc With Automated Diff (12/20/18:57) Magnesium (12/20/18 21:57) Chest 1 View, Ap/Pa Only (12/20/18:57) Ekg Tracing (12/20/18 21:57) Cardiac Profile 1 (12/20/18 21:57) Comprehensive Metabolic Panel (12/20/18:57) Myoglobin Serum (12/20/18 21:57) Protime With Inr (12/20/18:57) Partial Thromboplastin Time (12/20/18:57) O2 (12/20/18:57) Monitor-Rhythm Ecg Trace Only (12/20/18:57) Ed Iv/Invasive Line Start (12/20/18 21:57) BNP (12/20/18 21:57) Aspirin Chewable Tablet (Baby Aspirin Ch (12/20/18 22:00) Nitroglycerin Ointment (Nitrobid Ointme (12/20/18 22:00) Lorazepam Injection (Ativan Injection) (12/20/18 22:00) Aspirin Chewable Tablet (Baby Aspirin Ch (12/20/18 21:52) Magnesium Oxide Tablet (Mag Ox Tablet) (12/20/18 22:45) Ct Angio Chest W (12/20/18 22:35) Iohexol Injection (Omnipaque 350 Mg/Ml 1 (12/20/18 23:30) Received Contrast (Hold Metformin- Contr (12/20/18 23:30) Ns (Ivpb) (Sodium Chloride 0.9% Ivpb Bag (12/20/18 23:30) Medications Given in ED Current Medications Medications Dose Ordered Sig/Ashley Route Start Time Stop Time Status Last Admin Dose Admin Aspirin 324 mg ONCE ONCE PO 12/20/18 22:00 12/20/18 22:01 DC 12/20/18 21:55 324 MG Iohexol 150 ml ONCE ONCE IV 12/20/18 23:30 12/20/18 23:31 DC 12/20/18 23:40 125 ML Lorazepam 1 mg ONCE ONCE IVP 12/20/18 22:00 8/7/19 22:01 DC 12/20/18 22:09 1 MG Magnesium Oxide 1,200 mg ONCE ONCE PO 12/20/18 22:45 12/20/18 22:46 DC 12/20/18 23:35 1,200 MG Nitroglycerin 1 inch ONCE ONCE TOP 12/20/18 22:00 12/20/18 22:01 DC 12/20/18 21:59 1 INCH Sodium Chloride 100 ml ONCE ONCE IV 12/20/18 23:30 12/20/18 23:31 DC 12/20/18 23:40 80 ML Vital Signs/I&O 12/20/18 12/20/18 21:47 21:48 Temp 96.9 Pulse 80 Resp 28 B/P (MAP) 157/97 (117) Pulse Ox 98 98 O2 Delivery Room Air Nasal Cannula FiO2 100 Blood Pressure Mean: 117 Progress Progress Note : Progress Note DYSPNEA AND HYPERVENTILATING IMPROVED SHORTLY AFTER ARRIVAL, DID CHEST DISCOMFORT PT WAS GIVEN ATIVAN, WITH FURTHER CALMING OF PT PT GIVEN ASPIRIN SYMPTOMS COMPLETELY RESOLVED AND DID NOT RETURN FOR REMAINDER OF ER STAY Initial ECG Impression Date: Dec 20, 2018 Initial ECG Impression Time: 22:13 Initial ECG Rate: 70 Initial ECG Rhythm: Normal Sinus Initial ECG Impression: Nonspecific Changes, 1st Degree AV Block Initial ECG Comparisson: Changed (IMPROVED FROM PREVIOUS EKG) Diagnostic Imaging Comments CXR--NO ACUTE PROCESS, PENDING RADIOLOGIST REVIEW CT CHEST ANGIOGRAM--NO ACUTE FINDINGS, NO P.E.--PER [facility] VIA FAX AT [id number] Reviewed: Reviewed by Me Departure Communication (Admissions) [id number]--SPOKE WITH DR. BENNETT, ACCEPTS PT FOR ADMIT Impression Primary Impression: Chest pain Additional Impressions: Dyspnea Recent non-ST elevation myocardial infarction (NSTEMI) RECENT STENT PLACEMENT IDDM (insulin dependent diabetes mellitus) Disposition: 09 ADMITTED INPATIENT Condition: Improved Admissions Decision to Admit Reason: Admit from ER (General) Decision to Admit/Date: Dec 20, 2018 Time/Decision to Admit Time: 23:45 Departure-Patient Inst. Referrals: DELIA TRIANA MD (PCP/Family) Primary Care Physician CALLUM ALCAZAR DO Dec 21, 2018 00:20
[2018-12-21] MEDS ORDERED: CATHETER FLUSH 10 ML SYR IV PRN (01:15)
[2018-12-21] MEDS ORDERED: morphine INJ 4 MG/ML 1 ML (VIAL/SYRINGE) IV PRN (01:15)
[2018-12-21] MEDS ORDERED: NITROGLYCERIN 0.4 MG SL TABS BTL 25'S SL PRN (01:15)
[2018-12-21] MEDS ORDERED: LORazepam INJ 2 MG/ML (ATIVAN) VIAL IV PRN (01:15)
[2018-12-21 01:17] LABS: INR 1.1 (0.8-1.4); PROTHROMBIN TIME PATIENT 14.4 SEC (12.2-14.7)
[2018-12-21] MEDS ORDERED: inSUlin ASPART (NovoLOG) 1 UNIT/0.01 ML (CHARGE PER UNIT) SC SCH (06:00)
[2018-12-21] MEDS ORDERED: CATHETER FLUSH 10 ML SYR IV SCH (06:00)
--- NOTE | 2018-12-21 06:48 | Diagnostic Imaging Report ---
PROCEDURE: CT angiography of the chest with contrast. TECHNIQUE: Multiple contiguous axial images were obtained through the chest after uneventful bolus administration of intravenous contrast. 3D reconstructed CTA MIP acquisitions were also performed. Auto Exposure Controls were utilized during the CT exam to meet ALARA standards for radiation dose reduction. INDICATION: Shortness of breath. History of diabetes. COMPARISON: 01/03/2018 FINDINGS: This helical CT pulmonary angiogram is diagnostic to the subsegmental level branches of the pulmonary artery and demonstrates no pulmonary emboli. The heart is enlarged. There is calcified aortic and coronary atherosclerotic plaque without aneurysm. There is no pericardial effusion. There is no axillary, mediastinal, or hilar adenopathy. Bilateral groundglass opacities are seen throughout the lungs. No pleural effusion is seen. Osseous structures appear normal. Included views of the upper abdomen demonstrate nonobstructing nephrolithiasis in the superior pole of the right kidney. No evidence of hydronephrosis. The adrenal glands are unremarkable. No acute abnormalities. IMPRESSION: 1. No acute pulmonary embolus. 2. Cardiomegaly. 3. Interval development of hazy opacities may represent air trapping or inflammatory process. Agree with overnight report. Dictated by: Dictated on workstation # [id number]
[2018-12-21 07:23] LABS: BASOPHILS % (AUTO) 0 % (0-10); EOSINOPHILS # (AUTO) 0.5 10^3/uL (0.0-0.3); EOSINOPHILS % (AUTO) 6 % (0-10); HEMATOCRIT 40 % (35-52); HEMOGLOBIN 13.3 G/DL (11.5-16.0); LYMPHOCYTES # (AUTO) 2.6 X 10^3 (1.0-4.0); LYMPHOCYTES % (AUTO) 31 % (12-44); MEAN CORPUSCULAR HEMOGLOBIN 30 PG (25-34); MEAN CORPUSCULAR HGB CONC 34 G/DL (32-36); MEAN CORPUSCULAR VOLUME 88 FL (80-99); MEAN PLATELET VOLUME 10.2 FL (7.4-10.4); MONOCYTES # (AUTO) 0.7 X 10^3 (0.0-1.0); MONOCYTES % (AUTO) 8 % (0-12); NEUTROPHILS # (AUTO) 4.6 X 10^3 (1.8-7.8); NEUTROPHILS % (AUTO) 55 % (42-75); PLATELET COUNT 295 10^3/uL (130-400); RED CELL DISTRIBUTION WIDTH 14.4 % (10.0-14.5); WHITE BLOOD COUNT 8.4 10^3/uL (4.3-11.0)
--- NOTE | 2018-12-21 07:25 | Diagnostic Imaging Report ---
Patient History: Shortness of breath.. Technique: Single frontal view of the chest Comparison: 11/29/2018 FINDINGS: The lung volumes are normal. No focal consolidation is seen. No large pleural effusion or pneumothorax is seen. The cardiomediastinal silhouette is normal in size and contour. Loop recorder is noted. No acute osseous abnormality is seen. IMPRESSION: No acute pulmonary abnormality seen. Dictated by: Dictated on workstation # [id number]
[2018-12-21 07:38] LABS: ALANINE AMINOTRANSFERASE 33 U/L (0-55); ALBUMIN 3.8 GM/DL (3.2-4.5); ALKALINE PHOSPHATASE 194 U/L (40-136); BILIRUBIN,TOTAL 0.2 MG/DL (0.1-1.0); BUN/CREATININE RATIO 27; CALCIUM 9.7 MG/DL (8.5-10.1); CARBON DIOXIDE 24 MMOL/L (21-32); CHLORIDE 105 MMOL/L (98-107); CHOLESTEROL 137 MG/DL (< 200); CREATININE SERUM 0.71 MG/DL (0.60-1.30); GFR ESTIMATED > 60; GLUCOSE 123 MG/DL (70-105); HDL CHOLESTEROL 58 MG/DL (40-60); POTASSIUM 4.3 MMOL/L (3.6-5.0); SODIUM 142 MMOL/L (135-145); TOTAL PROTEIN 7.5 GM/DL (6.4-8.2); TRIGLYCERIDES 65 MG/DL (<150); VLDL CHOLESTEROL 13 MG/DL (5-40)
[2018-12-21 07:44] LABS: CARDIAC PROFILE 2 < 0.028 NG/ML (<0.028)
--- NOTE | 2018-12-21 08:25 | Short Stay Summary ---
History of Present Illness History of Present Illness Reason for visit/HPI 68 years old lady with history of paroxysmal atrial fibrillation, coronary artery disease, stenting to the LAD done mid November, was doing well until yesterday evening when she started to notice increasing dyspnea on exertion, had an episode of back pain and left shoulder pain. Came into the emergency room she was admitted for monitoring, her chest pain has improved, cardiac enzymes were negative, EKG did not show any acute abnormality, has been having headache for the past month waxing and waning. No nausea or vomiting no palpitation. Date of Admission Dec 21, 2018 at 00:01 Date of Discharge December 21, 2018 Time Seen by Provider: 08:20 Attending Physician Jia Florez MD Admitting Physician Martin Goode MD Consult Allergies and Home Medications Allergies Coded Allergies: amylase (Verified Allergy, Unknown, 08/07/15) black cohosh (Verified Allergy, Unknown, 08/07/15) cellulase (Verified Allergy, Unknown, 08/07/15) glyburide (Verified Allergy, Unknown, 08/07/15) isosorbide (Verified Allergy, Unknown, 08/07/15) lipase (Verified Allergy, Unknown, 08/07/15) protease (Verified Allergy, Unknown, 08/07/15) Home Medications Acetaminophen 500 Mg Tablet, 1,000 MG PO DAILY, (Reported) TAKES 2 (500MG) TABLETS Acetaminophen 500 Mg Tablet, 1,000 MG PO DAILY PRN for PAIN-MILD, (Reported) TAKES 2 (500MG) TABLETS; ALWAYS TAKES 2 IN THE MORNING AND OCCASIONALLY WILL TAKE ANOTHER DOSE LATER IN THE DAY NEEDED Albuterol Sulfate 1 Puff Puff, 2 PUFF INH QID PRN for SHORTNESS OF BREATH, (Reported) Aspirin 81 Mg Tablet.dr, 81 MG PO DAILY, (Reported) Atorvastatin Calcium 40 Mg Tablet, 80 MG PO HS Prescribed by: Janiya CORDOVA on 12/01/18 7038 Calcium Carbonate/Vitamin D3 1 Each Tablet, 1 TAB PO BID, (Reported) Cetirizine HCl 10 Mg Tablet, 10 MG PO DAILY, (Reported) Cholecalciferol (Vitamin D3) 1,000 Unit Capsule, 2,000 UNIT PO 1200, (Reported) Dabigatran Etexilate Mesylate 150 Mg Capsule, 150 MG PO BID, (Reported) Etodolac 500 Mg Tablet, 500 MG PO BID, (Reported) Ferrous Sulfate 325 Mg Tablet, 325 MG PO DAILY, (Reported) Fluticasone Propionate 16 Gm [place].susp, 2 SPRAYS NS DAILY PRN for ALLERGIES, (Reported) Fluticasone/Vilanterol 1 Each Blst.w.dev, 1 PUFF INH DAILY, (Reported) Gabapentin 800 Mg Tablet, 800 MG PO QID, (Reported) Glucosamine/D3/Boswellia Nellie 1 Each Tablet, 1 TAB PO BID, (Reported) Imipramine HCl 50 Mg Tablet, 50 MG PO HS, (Reported) Insulin Aspart 300 Units/3 Ml Solution, 8 UNITS SQ TIDAC, (Reported) Insulin Glargine,Hum.rec.anlog 100 Unit/1 Ml Vial, 20 UNIT SQ HS, (Reported) Lisinopril 20 Mg Tablet, 20 MG PO DAILY, (Reported) Metformin HCl 1,000 Mg Tablet, 1,000 MG PO BID start back on Metformin on 12/03/18 Prescribed by: SAWYER TELLO on 12/01/18 1101 Metoprolol Succinate 100 Mg Tab.er.24h, 100 MG PO DAILY, (Reported) Mineral Oil/Petrolatum,White 3.5 Gm Oint...g., OU HS, (Reported) Mirabegron 50 Mg Tab.er.24h, 50 MG PO DAILY, (Reported) Multivitamin with Minerals 1 Each Tablet, 1 TAB PO DAILY, (Reported) Nitrofurantoin Macrocrystal 100 Mg Capsule, 100 MG PO 1800, (Reported) [place] 3 Polyunsat Fatty Acids 1,000 Mg Cap, 1,000 MG PO TID, (Reported) Polyethylene Glycol 3350 17 Gm Powd.pack, 17 GM PO DAILY PRN for CONSTIPATION- 2ND LINE, (Reported) Polyvinyl Alcohol/Povidone 15 Ml Drops, 2 DROPS OU Q2H, (Reported) Primidone 250 Mg Tablet, 250 MG PO TID, (Reported) Ranitidine HCl 150 Mg Tablet, 150 MG PO BID PRN for HEARTBURN, (Reported) Solifenacin Succinate 10 Mg Tablet, 10 MG PO 1600, (Reported) Ticagrelor 90 Mg Tablet, 90 MG PO BID Prescribed by: Janiya CORDOVA on 12/01/18 0915 Venlafaxine HCl 75 Mg Cap.er.24h, 75 MG PO DAILY, (Reported) Patient Home Medication List Home Medication List Reviewed: Yes Past Asrpsif-Ijfafc-Jbilzr Hx Patient Social History Employed/Student: employed Alcohol Use: Denies Use Recreational Drug Use: No Smoking Status: Former Smoker Former Smoker, Quit: May 18, 1980 Type Used: Cigarettes 2nd Hand Smoke Exposure: No Recent Foreign Travel: No Contact w/other who traveled: No Recent Hopitalizations: No Recent Infectious Disease Expo: No Immunizations Up To Date Tetanus Booster (TDap): Unknown Pediatric: Yes Date of Pneumonia Vaccine: Nov 30, 2016 Date of Influenza Vaccine: Feb 28, 2017 Seasonal Allergies Seasonal Allergies: No Surgeries Yes (LEFT KNEE ACL, ORAL-GUM, CATARACTS, RIGHT SHOULDER SCOPE, D&C WITH IUD;LOOP RECORDER 11/01/18; CARDIAC CATH WITH STENT 11/30/2018) Cardiac, Coronary Stent, Eye Surgery, Orthopedic Respiratory Yes Currently Using CPAP: Yes Currently Using BIPAP: No Cardiovascular Yes (AFIB AND NSTEMI 11/30/18--CARDIAC CATH WITH STENT X 1 ) Atrial Fibrillation, Coronary Artery Disease, Heart Attack, High Cholesterol, Hypertension Neurological Yes Neuropathy 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 System : No Hx 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 Disorders: Yes Sexually Transmitted Disease: No HIV/AIDS: No Female 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 Disorders: Denies [employer]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 History: Menopausal Genitourinary Yes UTI-Chronic Gastrointestinal Yes Gastroesophageal Reflux, Chronic Constipation Musculoskeletal Yes (Charcot's Disease-IN FEET AND ANKLES) Degenerate Disk Disease, Arthritis, Chronic Back Pain Endocrine History of Endocrine Disorders: Yes Endocrine Disorders: Diabetes, Insulin dep HEENT History of HEENT Disorders: Yes HEENT Disorders: Cataract Loss of Vision: Bilateral Hearing Impairment: Denies Cancer No Psychosocial History of Psychiatric Problem: Yes Behavioral Health Disorders: Anxiety, Depression Integumentary History of Skin or Integumenta: No Blood Transfusions History of Blood Disorders: No Adverse Reaction to a Blood Tr: No Family Medical History Family Hx: Cardiovascular disease 19 FATHER 19 MOTHER Colon cancer 19 MOTHER Diabetes mellitus 19 MOTHER G8 BROTHER G8 SISTER Review of Systems Constitutional: see HPI, malaise EENTM: see HPI, no symptoms reported Respiratory: see HPI; No cough; dyspnea on exertion; No hemoptysis, No orthopnea, No phlegm, No short of breath, No stridor, No wheezing, No other Cardiovascular: see HPI, chest pain; No edema, No Hx of Intervention, No palpitations, No syncope, No vascular heart diseas, No other Gastrointestinal: no symptoms reported, see HPI Genitourinary: no symptoms reported, see HPI Musculoskeletal: no symptoms reported, see HPI Skin: no symptoms reported, see HPI Psychiatric/Neurological: No Symptoms Reported, See HPI Physical Exam Vital Signs Vital Signs - First Documented 12/20/18 12/20/18 21:47 21:48 Temp 96.9 Pulse 80 Resp 28 B/P (MAP) 157/97 (117) Pulse Ox 98 O2 Delivery Room Air FiO2 100 Capillary Refill : Less Than 3 Seconds Height, Weight, BMI Height: 5'10.50" Weight: 299lbs. 0.0oz. [id number]; 42.4 BMI Method:Stated General Appearance: No Apparent Distress, WD/WN Eyes: Bilateral Eye Normal Inspection, Bilateral Eye PERRL, Bilateral Eye EOMI HEENT: PERRL/EOMI, TMs Normal, Normal ENT Inspection, Pharynx Normal Neck: Full Range of Motion, Normal Inspection, Non Tender, Supple, Carotid Bruit Respiratory: Chest Non Tender, Lungs Clear, Normal Breath Sounds, No Accessory Muscle Use, No Respiratory Distress Cardiovascular: Regular Rate, Rhythm, No Edema, No Gallop, No JVD, No Murmur, Normal Peripheral Pulses Gastrointestinal: Normal Bowel Sounds, No Organomegaly, No Pulsatile Mass, Non Tender, Soft Back: Normal Inspection, No CVA Tenderness, No Vertebral Tenderness Extremity: Normal Capillary Refill, Normal Inspection, Normal Range of Motion, Non Tender, No Calf Tenderness, No Pedal Edema Neurologic/Psychiatric: Alert, Oriented x3, No Motor/Sensory Deficits, Normal Mood/Affect Skin: Normal Color, Warm/Dry Lymphatic: No Adenopathy Clinical Quality Measures Admission Status Admission Status: Observation DVT/VTE Risk/Contraindication: Risk Factor Score Per Nursin RFS Level Per Nursing on Admit: 4+=Very High Short Stay Diagnosis Discharge Diagnosis-Short Stay Admission Diagnosis: Chest pain Coronary artery disease Hypertension Paroxysmal atrial fibrillation Hyperlipidemia Final Discharge Diagnosis: Chest pain Coronary artery disease Hypertension Paroxysmal atrial fibrillation Hyperlipidemia Conclusion Labs Laboratory Tests 12/20/18 21:50: White Blood Count 7.7, Red Blood Count 4.58, Hemoglobin 13.7, Hematocrit 40, Mean Corpuscular Volume 88, Mean Corpuscular Hemoglobin 30, Mean Corpuscular Hemoglobin Concent 34, Red Cell Distribution Width 14.3, Platelet Count 315, Mean Platelet Volume 10.1, Neutrophils (%) (Auto) 53, Lymphocytes (%) (Auto) 34, Monocytes (%) (Auto) 8, Eosinophils (%) (Auto) 4, Basophils (%) (Auto) 0, Neutrophils # (Auto) 4.1, Lymphocytes # (Auto) 2.7, Monocytes # (Auto) 0.6, Eosinophils # (Auto) 0.3, Basophils # (Auto) 0.0, Prothrombin Time 14.4, INR Comment 1.1, Activated Partial Thromboplast Time 31, Sodium Level 141, Potassium Level 4.0, Chloride Level 107, Carbon Dioxide Level 20L, Anion Gap 14, Blood Urea Nitrogen 17, Creatinine 0.77, Estimat Glomerular Filtration Rate > 60, BUN/Creatinine Ratio 22, Glucose Level 115H, Calcium Level 9.0, Corrected Calcium 9.3, Magnesium Level 1.7L, Total Bilirubin 0.1, Aspartate Amino Transf (AST/SGOT) 21, Alanine Aminotransferase (ALT/SGPT) 33, Alkaline Phosphatase 186H , Myoglobin 21.0, Troponin I < 0.028, B-Type Natriuretic Peptide 51.7, Total Protein 7.2, Albumin 3.6 12/21/18 01:00: Prothrombin Time 14.4, INR Comment 1.1, Activated Partial Thromboplast Time 33, Myoglobin 23.2, Troponin I < 0.028 12/21/18 06:55: White Blood Count 8.4, Red Blood Count 4.48, Hemoglobin 13.3, Hematocrit 40, Mean Corpuscular Volume 88, Mean Corpuscular Hemoglobin 30, Mean Corpuscular Hemoglobin Concent 34, Red Cell Distribution Width 14.4, Platelet Count 295, Mean Platelet Volume 10.2, Neutrophils (%) (Auto) 55, Lymphocytes (%) (Auto) 31, Monocytes (%) (Auto) 8, Eosinophils (%) (Auto) 6, Basophils (%) (Auto) 0, Neutrophils # (Auto) 4.6, Lymphocytes # (Auto) 2.6, Monocytes # (Auto) 0.7, Eosinophils # (Auto) 0.5H, Basophils # (Auto) 0.0, Sodium Level 142, Potassium Level 4.3, Chloride Level 105, Carbon Dioxide Level 24, Anion Gap 13, Blood Urea Nitrogen 19H, Creatinine 0.71, Estimat Glomerular Filtration Rate > 60, BUN/Creatinine Ratio 27, Glucose Level 123H, Calcium Level 9.7, Corrected Calcium 9.9, Total Bilirubin 0.2, Aspartate Amino Transf (AST/SGOT) 21, Alanine Aminotransferase (ALT/SGPT) 33, Alkaline Phosphatase 194H, Troponin I < 0.028, Total Protein 7.5, Albumin 3.8, Triglycerides Level 65, Cholesterol Level 137, LDL Cholesterol Direct 59, VLDL Cholesterol 13, HDL Cholesterol 58 Conclusion/Plan Chest pain nonspecific etiology, atypical in presentation, EKG and cardiac enzymes are negative. No further testing is needed next Coronary artery disease status post stenting to the LAD in November 2018 using resolute integrity 2.5 x 26 mm expanded to 3.0 mm with excellent results, was on aspirin and Brilinta which was changed to Effient, I instructed her to continue on aspirin in addition to the Effient and Pradaxa next Paroxysmal atrial fibrillation, controlled, currently in sinus rhythm, maintained on Pradaxa. Continue on Pradaxa next Hypertension, controlled, monitor blood pressure next Hyperlipidemia, controlled, continue on current medication monitor lipids next Diabetes mellitus, managed by primary care physician Obesity, BMI 42, we discussed weight loss, patient has lost a pound and working on weight loss CHARLY JOSE MD Dec 21, 2018 08:25
[2018-12-21] MEDS ORDERED: METF-399 PO (08:55)
[2018-12-21] MEDS ORDERED: CYCL1DRO OU (08:55)
[2018-12-21] MEDS ORDERED: ATOR80TA76 PO (08:55)
[2018-12-21] MEDS ORDERED: PRAS10TA10 PO (08:55)
[2018-12-21] MEDS ORDERED: LACT1CAP39 PO (08:55)
[2018-12-21] MEDS ORDERED: ASPIRIN E.C. 81 MG (ECOTRIN) TAB PO SCH (09:00)
--- NOTE | 2018-12-21 09:04 | NUR ---
SPOKE WITH THE PATIENT ABOUT HER MEDICATIONS. SHE HAD A DETAILED LIST WITH HER AND I COMPARED IT WITH THE EXT MED HX. THE EXT MED HX SHOWS WHAT HAS BEEN FILLED AT [facility] HOWEVER [facility]. I DID NOT REQUEST A LIST FORM THEM AT THIS TIME HOWEVER SHE IS VERY KNOWLEDGEABLE ABOUT HER MEDS AND I [facility]. SHE STATES HER METOPROLOL XL 100MG WAS INCREASED FROM DAILY TO BID ON TUESDAY WHEN SHE SAW DR. CORDOVA. SHE ALSO STATES HER PRADAXA 150MG BID WAS RESUMED. SHE STOPPED THE BRILINTA AND WAS STARTED ON EFFIENT DUE TO AN INTERACTIONS WITH HER PRIMIDONE. SHE STATES SHE HAS BEEN STARTED ON RESTASIS EYE DROPS BID WELL SINCE HER LAST VISIT. SEE LIST ONE CHART FOR DETAILS. SOME OF THE CHANGES WERE NOT UPDATED ON HER LIST HOWEVER WE DISCUSSED THEM I UPDATED THE LIST.
--- NOTE | 2018-12-21 09:41 | Short Stay Summary ---
HPI History of Present Illness: 68 yo F with recent NSTEMI with stent placement that present with chest pain. States that it started yesterday. She was watching TV when it started. States that the pain was different then before. Denies any burning in her throat. No radiation to neck or left arm. Pain improved on its own but she still decided to come to ER because she was not sure. States that she has DM and HTN. Denies any family h/o CAD. Source: patient Exam Limitations: no limitations Date seen by provider: Dec 21, 2018 Time Seen by Provider: 09:45 Attending Physician Jia Florez MD PCP Martin Triana MD Consult Date of Admission Dec 21, 2018 at 00:01 Home Medications Home Medications Reviewed patient Home Medication Reconciliation performed by pharmacy medication reconciliations hydroelectric plant technician and/or nursing. Patients Allergies have been reviewed. Allergies Coded Allergies: amylase (Verified Allergy, Unknown, 08/07/15) black cohosh (Verified Allergy, Unknown, 08/07/15) cellulase (Verified Allergy, Unknown, 08/07/15) glyburide (Verified Allergy, Unknown, 08/07/15) isosorbide (Verified Allergy, Unknown, 08/07/15) lipase (Verified Allergy, Unknown, 08/07/15) protease (Verified Allergy, Unknown, 08/07/15) ECS-Ocbejx-Ffxquu Hx Patient Social History Employed/Student: employed Alcohol Use: Denies Use Recreational Drug Use: No Smoking Status: Former Smoker Former smoker/When Quit: Aug 07, 1980 Type Used: Cigarettes 2nd Hand Smoke Exposure: No Recent Foreign Travel: No Contact w/other who traveled: No Recent Hopitalizations: No Recent Infectious Disease Expo: No Immunizations Up To Date Tetanus Booster (TDap): Unknown Date of Pneumonia Vaccine: Nov 30, 2016 Date of Influenza Vaccine: Feb 28, 2017 Past Medical History NSTEMI with stent placement CAD HTN Family Medical History Significant Family History: No Pertinent Family Hx Family History: Cardiovascular disease 19 FATHER 19 MOTHER Colon cancer 19 MOTHER Diabetes mellitus 19 MOTHER G8 BROTHER G8 SISTER Review of Systems ([facility]) Constitutional: no symptoms reported; No chills, No fever, No malaise, No weakness EENTM: no symptoms reported; No mouth pain, No nose pain Respiratory: no symptoms reported; No cough, No dyspnea on exertion, No orthopnea, No short of breath Cardiovascular: chest pain; No edema, No palpitations Gastrointestinal: no symptoms reported; No abdominal pain, No constipation, No diarrhea, No loss of appetite, No nausea, No vomiting Genitourinary: no symptoms reported; No dysuria, No frequency, No hematuria : No Musculoskeletal: no symptoms reported; No back pain, No joint pain, No muscle pain Skin: no symptoms reported; No lesions, No rash Psychiatric/Neurological: No Symptoms Reported; Denies Tremors, Denies Weakness Reviewed Test Results Reviewed Test Results Lab Laboratory Tests Test 12/20/18 21:50 12/21/18 01:00 12/21/18 06:55 Range/Units White Blood Count 7.7 8.4 4.3-11.0 10^3/uL Red Blood Count 4.58 4.48 4.35-5.85 10^6/uL Hemoglobin 13.7 13.3 11.5-16.0 G/DL Hematocrit 40 40 35-52 % Mean Corpuscular Volume 88 88 80-99 FL Mean Corpuscular Hemoglobin 30 30 25-34 PG Mean Corpuscular Hemoglobin Concent 34 34 32-36 G/DL Red Cell Distribution Width 14.3 14.4 10.0-14.5 % Platelet Count 315 295 130-400 10^3/uL Mean Platelet Volume 10.1 10.2 7.4-10.4 FL Neutrophils (%) (Auto) 53 55 42-75 % Lymphocytes (%) (Auto) 34 31 12-44 % Monocytes (%) (Auto) 8 8 0-12 % Eosinophils (%) (Auto) 4 6 0-10 % Basophils (%) (Auto) 0 0 0-10 % Neutrophils # (Auto) 4.1 4.6 1.8-7.8 X 10^3 Lymphocytes # (Auto) 2.7 2.6 1.0-4.0 X 10^3 Monocytes # (Auto) 0.6 0.7 0.0-1.0 X 10^3 Eosinophils # (Auto) 0.3 0.5 H 0.0-0.3 10^3/uL Basophils # (Auto) 0.0 0.0 0.0-0.1 10^3/uL Prothrombin Time 14.4 14.4 12.2-14.7 SEC INR Comment 1.1 1.1 0.8-1.4 Activated Partial Thromboplast Time 31 33 24-35 SEC Sodium Level 141 142 135-145 MMOL/L Potassium Level 4.0 4.3 3.6-5.0 MMOL/L Chloride Level 107 105 98-107 MMOL/L Carbon Dioxide Level 20 L 24 21-32 MMOL/L Anion Gap 14 13 5-14 MMOL/L Blood Urea Nitrogen 17 19 H 7-18 MG/DL Creatinine 0.77 0.71 0.60-1.30 MG/DL Estimat Glomerular Filtration Rate > 60 > 60 BUN/Creatinine Ratio 22 27 Glucose Level 115 H 123 H 70-105 MG/DL Calcium Level 9.0 9.7 8.5-10.1 MG/DL Corrected Calcium 9.3 9.9 8.5-10.1 MG/DL Magnesium Level 1.7 L 1.8-2.4 MG/DL Total Bilirubin 0.1 0.2 0.1-1.0 MG/DL Aspartate Amino Transf (AST/SGOT) 21 21 5-34 U/L Alanine Aminotransferase (ALT/SGPT) 33 33 0-55 U/L Alkaline Phosphatase 186 H 194 H 40-136 U/L Myoglobin 21.0 23.2 10.0-92.0 NG/ML Troponin I < 0.028 < 0.028 < 0.028 <0.028 NG/ML B-Type Natriuretic Peptide 51.7 <100.0 PG/ML Total Protein 7.2 7.5 6.4-8.2 GM/DL Albumin 3.6 3.8 3.2-4.5 GM/DL Triglycerides Level 65 <150 MG/DL Cholesterol Level 137 < 200 MG/DL LDL Cholesterol Direct 59 1-129 MG/DL VLDL Cholesterol 13 5-40 MG/DL HDL Cholesterol 58 40-60 MG/DL Physical Exam-(CHC) Physical Exam Vital Signs VS - Last 72 Hours, by Label 12/20/18 12/20/18 12/21/18 12/21/18 21:47 21:48 00:45 00:45 Temp 96.9 Pulse 80 Resp 28 30 B/P (MAP) 157/97 (117) 144/85 (104) Pulse Ox 98 98 O2 Delivery Room Air Nasal Cannula Room Air Room Air FiO2 100 12/21/18 12/21/18 12/21/18 12/21/18 00:53 01:00 01:15 01:30 Pulse 75 73 77 76 Resp 8 20 13 B/P (MAP) 135/75 (95) 128/69 (88) 113/69 (84) Pulse Ox 97 99 99 O2 Delivery Room Air Room Air Room Air 12/21/18 12/21/18 12/21/18 12/21/18 01:43 01:45 02:00 03:00 Temp 96.9 Pulse 76 77 78 81 Resp 20 16 20 16 B/P (MAP) 149/79 (102) 131/74 (93) 110/58 (75) Pulse Ox 99 96 95 O2 Delivery Room Air Room Air Room Air Room Air 12/21/18 12/21/18 12/21/18 12/21/18 04:00 04:00 05:00 06:00 Pulse 80 84 88 Resp 22 39 B/P (MAP) 152/82 (105) 161/79 (106) 151/68 (95) Pulse Ox 93 94 93 O2 Delivery Room Air Room Air Room Air Room Air 12/21/18 12/21/18 12/21/18 12/21/18 07:00 07:00 07:38 08:00 Pulse 81 81 84 Resp 10 8 B/P (MAP) 123/74 (90) 131/83 (99) Pulse Ox 95 96 O2 Delivery Room Air Room Air Room Air Capillary Refill : Less Than 3 Seconds General Appearance: WD/WN, no apparent distress HEENT: PERRL/EOMI Neck: non-tender, full range of motion, supple, normal inspection Respiratory: chest non-tender, lungs clear, normal breath sounds, no respiratory distress, no accessory muscle use Cardiovascular: normal peripheral pulses, regular rate, rhythm, no murmur Gastrointestinal: normal bowel sounds, non tender, soft, no organomegaly Back: no CVA tenderness, no vertebral tenderness Extremities: no calf tenderness, normal capillary refill, pedal edema (2+ pitting edema bilaterally (baseline)) Neurologic/Psychiatric: teaseler II-XII nml as tested, no motor/sensory deficits, alert, normal mood/affect, oriented x 3 Skin: normal color, warm/dry Lymphatic: no adenopathy Short Stay Diagnosis Discharge Diagnosis-Short Stay Admission Diagnosis Atypical Chest pain CAD with recent stent placement after NSTEMI Final Discharge Diagnosis See Above Conclusion Plan See problem list Was the Problem List Reviewed?: Yes Clinical Quality Measures DVT/VTE Risk/Contraindication: Risk Factor Score Per Nursin RFS Level Per Nursing on Admit: 4+=Very High Copy Copies To 1: MARTIN TRIANA MD Assessment/Plan Assessment/Plan Admission Status: Observation (1) Atypical chest pain Status: Acute Assessment & Plan: - Seen by Cardiology and cleared to go home, trop neg x3, continue current meds and f/u with Cardiology as outpatient (2) CAD (coronary artery disease) JIA FLOREZ MD Dec 21, 2018 09:41
== END 2018-12-21 09:53 | disposition home or self-care (01) ==
LOC: EDUNIT# 21:47 → ER 21:48 → ICU 21:49 → UNDOADMOB 21:49 → ICU 12-21 00:01 → UNDOADMOB 12-21 00:01 → UNDODISOB 12-21 10:45
PROVIDERS: ADMIT Family Medicine; ATTEND Family Medicine
DX: R07.9 Chest pain, unspecified (principal); R06.00 Dyspnea, unspecified; I21.4 Non-ST elevation (NSTEMI) myocardial infarction; I10 Essential (primary) hypertension; I48.91 Unspecified atrial fibrillation; I25.10 Atherosclerotic heart disease of native coronary artery without angina pectoris; E11.9 Type 2 diabetes mellitus without complications; J45.909 Unspecified asthma, uncomplicated; G47.30 Sleep apnea, unspecified; E78.00 Pure hypercholesterolemia, unspecified; G62.9 Polyneuropathy, unspecified; K21.9 Gastro-esophageal reflux disease without esophagitis; K59.09 Other constipation; M14.671 Charcot's joint, right ankle and foot; M14.672 Charcot's joint, left ankle and foot; M19.90 Unspecified osteoarthritis, unspecified site; G89.29 Other chronic pain; M54.5 Low back pain; F41.9 Anxiety disorder, unspecified; F32.9 Major depressive disorder, single episode, unspecified; Z91.018 Allergy to other foods; Z91.038 Other insect allergy status; Z91.09 Other allergy status, other than to drugs and biological substances; Z88.8 Allergy status to other drugs, medicaments and biological substances; Z79.82 Long term (current) use of aspirin
CPT/HCPCS: 36415; 71045; 71275; 80053; 80061; 83735; 83874; 83880; 84484; 85025; 85610; 85730; 93005; 93041

== ENCOUNTER 2018-12-30 22:17 | Emergency (ER) | payer MEDICARE, MEDICAID ==
[~2018-12-30] VITALS: Ht 179.1 cm; Wt 137.0 kg
[~2018-12-30 22:17] MED LIST changes: +ATOR80TA76 PO; +LACT1CAP39 PO; +PRAS10TA10 PO
[2018-12-30] MEDS ORDERED: ASPIRIN 81 MG CHEW (CHILDREN'S ASA) PO ONE (22:30)
[2018-12-30] MEDS ORDERED: LORazepam INJ 2 MG/ML (ATIVAN) VIAL IVP ONE (22:30)
[2018-12-30 22:35] LABS: BASOPHILS % (AUTO) 0 % (0-10); EOSINOPHILS # (AUTO) 0.4 10^3/uL (0.0-0.3); EOSINOPHILS % (AUTO) 5 % (0-10); HEMATOCRIT 39 % (35-52); LYMPHOCYTES % (AUTO) 40 % (12-44); MEAN CORPUSCULAR HEMOGLOBIN 30 PG (25-34); MEAN CORPUSCULAR HGB CONC 34 G/DL (32-36); MEAN CORPUSCULAR VOLUME 88 FL (80-99); MEAN PLATELET VOLUME 10.1 FL (7.4-10.4); MONOCYTES # (AUTO) 0.7 X 10^3 (0.0-1.0); MONOCYTES % (AUTO) 9 % (0-12); NEUTROPHILS # (AUTO) 3.5 X 10^3 (1.8-7.8); NEUTROPHILS % (AUTO) 46 % (42-75); PLATELET COUNT 291 10^3/uL (130-400); RED CELL DISTRIBUTION WIDTH 14.2 % (10.0-14.5); WHITE BLOOD COUNT 7.6 10^3/uL (4.3-11.0)
[2018-12-30 22:45] LABS: INR 1.2 (0.8-1.4); PROTHROMBIN TIME PATIENT 15.3 SEC (12.2-14.7)
[2018-12-30 22:46] LABS: ALANINE AMINOTRANSFERASE 34 U/L (0-55); ALBUMIN 3.7 GM/DL (3.2-4.5); ALKALINE PHOSPHATASE 190 U/L (40-136); AMYLASE 24 U/L (25-125); BILIRUBIN,TOTAL 0.2 MG/DL (0.1-1.0); BUN/CREATININE RATIO 21; CALCIUM 9.3 MG/DL (8.5-10.1); CARBON DIOXIDE 20 MMOL/L (21-32); CHLORIDE 105 MMOL/L (98-107); CREATINE KINASE 80 U/L (29-168); CREATININE SERUM 0.73 MG/DL (0.60-1.30); GFR ESTIMATED > 60; GLUCOSE 92 MG/DL (70-105); LIPASE 14 U/L (8-78); MAGNESIUM 1.7 MG/DL (1.6-2.4); POTASSIUM 3.9 MMOL/L (3.6-5.0); SODIUM 141 MMOL/L (135-145); TOTAL PROTEIN 7.4 GM/DL (6.4-8.2)
[2018-12-30 22:54] LABS: CREATINE KINASE MB 0.9 NG/ML (<6.6)
--- NOTE | 2018-12-30 23:07 | ED Cardiac General ---
History of Present Illness General Chief Complaint: Respiratory Problems Stated Complaint: SOA,DIZZY Nursing Triage Note: SOA, DIZZYM ANXIOUS, CHEST HEAVINESS SINCE 2044 Source: patient, EMS, old records History of Present Illness Date Seen by Provider: Dec 30, 2018 Time Seen by Provider: 22:19 Initial Comments PT ARRIVES VIA EMS FROM HOME C/O SUDDEN ONSET OF "OVERWHELMING FUNNY FEELING" IN HER CHEST AND SHORTNESS OF BREATH--OCCURRED AT 2044 STATES SHE HAD DONE LAUNDRY AND WAS MAKING THE BED, WHEN SHE STARTED TO GET SHORT OF BREATH. WALKED INTO THE KITCHEN AND THEN SAT DOWN, STARTED BECOMING MORE SHORT OF BREATH AND THEN GOT HOT AND SWEATY, THEN HEAD STARTED TO FEEL FUNNY/GOT DIZZY, USED HER INHALER BUT IT DIDN'T HELP AND WAS GETTING WORSE, SO CALLED EMS HAS A "FUNNY FEELING" IN HER HEAD --DIZZINESS,NO HEADACHE. NO VISION CHANGES NO NAUSEA/VOMITING PT STATES SHE "CAN'T BREATHE--I FEEL LIKE I CAN'T GET ANY AIR IN" PT EXTREMELY ANXIOUS AND HYPERVENTILATING--EMS REPORT THAT RESPIRATORY RATE WAS 35-40, WITH O2 SATS 100% NO FEVER NO COUGH NO PALPITATIONS NO CHANGE IN CHRONIC LEG EDEMA--LEFT LEG ALWAYS MUCH LARGER/MORE SWOLLEN THAN RIGHT--HX OF DVT'S IN LEFT LEG PT HAS HX OF ATRIAL FIB AND HAD LOOP RECORDER PLACED 11/01 PT HAD NSTEMI 12/01/18 WITH ATRIAL FIB WITH RVR--HAD STENT X [address] UP WITH DR. CORDOVA 12/15/18 AND WAS HAVING THESE SAME SYMPTOMS --METOPROLOL WAS DOUBLED, AND PRADAXA WAS RESTARTED ( PT HAD SELF DC'D IT AND QUIT TAKING HER ASPIRIN FOR THE WEEK PRIOR "BECAUSE SHE DIDN'T FEEL GOOD"--ASPIRIN WAS ALSO RESTARTED ) PT WAS ALSO RECENTLY SWITCHED FROM BRILLINTA TO PRASUGREL/EFFIENT PT SEEN HERE IN ER 12/21/18 FOR THIS EXACT SAME PROBLEM, AND WAS ADMITTED OVERNIGHT, WITHOUT FURTHER INCIDENT. CT ANGIOGRAM, EKG'S AND SERIAL TROPONINS ALL NEGATIVE. PT HAD RESOLUTION OF SYMPTOMS WITH ATIVAN AT THAT TIME PT STATES SHE HAS NOT TAKEN ANY OF HER EVENING MEDICATIONS "BECAUSE I GOT UP LATE" --STATES SHE DID NOT GET UP UNTIL 1400 TODAY, STATES SHE DID TAKE HER AM MEDICATIONS, BUT DID NOT HAVE SUPPER YET, AND DID NOT THINK TO TAKE HER EVENING MEDICATIONS. HAS NOT CHECKED BLOOD SUGAR AT HOME ACCUCHECK 93 FOR EMS PCP: [facility] [place] [employer] [facility] LAB ANALYST: DR. CORDOVA Allergies and Home Medications Allergies Coded Allergies: amylase (Verified Allergy, Unknown, 08/07/15) black cohosh (Verified Allergy, Unknown, 08/07/15) cellulase (Verified Allergy, Unknown, 08/07/15) glyburide (Verified Allergy, Unknown, 08/07/15) isosorbide (Verified Allergy, Unknown, 08/07/15) lipase (Verified Allergy, Unknown, 08/07/15) protease (Verified Allergy, Unknown, 08/07/15) Home Medications Acetaminophen 500 Mg Tablet, 1,000 MG PO DAILY, (Reported) TAKES 2 (500MG) TABLETS Acetaminophen 500 Mg Tablet, 1,000 MG PO DAILY PRN for PAIN-MILD, (Reported) TAKES 2 (500MG) TABLETS; ALWAYS TAKES 2 IN THE MORNING AND OCCASIONALLY WILL TAKE ANOTHER DOSE LATER IN THE DAY NEEDED Albuterol Sulfate 1 Puff Puff, 2 PUFF INH QID PRN for SHORTNESS OF BREATH, (Reported) Aspirin 81 Mg Tablet.dr, 81 MG PO DAILY, (Reported) Atorvastatin Calcium 80 Mg Tablet, 80 MG PO HS, (Reported) Calcium Carbonate/Vitamin D3 1 Each Tablet, 1 TAB PO BID, (Reported) Cetirizine HCl 10 Mg Tablet, 10 MG PO DAILY, (Reported) Cholecalciferol (Vitamin D3) 1,000 Unit Capsule, 2,000 UNIT PO 1200, (Reported) Cyclosporine 1 Each Droperette, 1 DROP OU BID, (Reported) Dabigatran Etexilate Mesylate 150 Mg Capsule, 150 MG PO BID, (Reported) Etodolac 500 Mg Tablet, 500 MG PO BID, (Reported) Ferrous Sulfate 325 Mg Tablet, 325 MG PO DAILY, (Reported) Fluticasone Propionate 16 Gm [place].susp, 2 SPRAYS NS DAILY PRN for ALLERGIES, (Reported) Fluticasone/Vilanterol 1 Each Blst.w.dev, 1 PUFF INH DAILY, (Reported) Gabapentin 800 Mg Tablet, 800 MG PO QID, (Reported) Glucosamine/D3/Boswellia Nellie 1 Each Tablet, 1 TAB PO BID, (Reported) Imipramine HCl 50 Mg Tablet, 50 MG PO HS, (Reported) Insulin Aspart 300 Units/3 Ml Solution, 8 UNITS SQ TIDAC, (Reported) Insulin Glargine,Hum.rec.anlog 100 Unit/1 Ml Vial, 20 UNIT SQ HS, (Reported) Lactobacillus Rhamnosus GG 1 Each Capsule, 1 CAP PO DAILY PRN for WHILE TAKING ANTIBIOTICS, (Reported) Lisinopril 20 Mg Tablet, 20 MG PO DAILY, (Reported) Metformin HCl 1,000 Mg Tablet, 1,000 MG PO BID, (Reported) Metoprolol Succinate 100 Mg Tab.er.24h, 100 MG PO BID, (Reported) Mineral Oil/Petrolatum,White 3.5 Gm Oint...g., OU HS, (Reported) Mirabegron 50 Mg Tab.er.24h, 50 MG PO DAILY, (Reported) Multivitamin with Minerals 1 Each Tablet, 1 TAB PO DAILY, (Reported) Nitrofurantoin Macrocrystal 100 Mg Capsule, 100 MG PO 1800, (Reported) [place] 3 Polyunsat Fatty Acids 1,000 Mg Cap, 1,000 MG PO TID, (Reported) Polyethylene Glycol 3350 17 Gm Powd.pack, 17 GM PO DAILY PRN for CONSTIPATION- 2ND LINE, (Reported) Polyvinyl Alcohol/Povidone 15 Ml Drops, 2 DROPS OU Q2H, (Reported) Prasugrel HCl 10 Mg Tablet, 10 MG PO DAILY, (Reported) Primidone 250 Mg Tablet, 250 MG PO TID, (Reported) Ranitidine HCl 150 Mg Tablet, 150 MG PO DAILY PRN for HEARTBURN, (Reported) Solifenacin Succinate 10 Mg Tablet, 10 MG PO 1600, (Reported) Venlafaxine HCl 75 Mg Cap.er.24h, 75 MG PO DAILY, (Reported) Patient Home Medication List Home Medication List Reviewed: Yes Review of Systems Review of Systems Constitutional: see HPI, dizziness Respiratory: See HPI Cardiovascular: See HPI Gastrointestinal: No Symptoms Reported Genitourinary: No Symptoms Reported Musculoskeletal: no symptoms reported Skin: no symptoms reported Psychiatric/Neurological: See HPI, Anxiety Endocrine: No Symptoms Reported Hematologic/Lymphatic: No Symptoms Reported Past Fjesaxw-Fdzwwi-Vwyrbe Hx Past Med/Social Hx: Reviewed and Corrections made Patient Social History Alcohol Use: Denies Use Recreational Drug Use: No Smoking Status: Former Smoker Type Used: Cigarettes Former Smoker, Quit: May 18, 1980 2nd Hand Smoke Exposure: No Recent Foreign Travel: No Contact w/Someone Who Travel: No Recent Infectious Disease Expo: No Recent Hopitalizations: No Physical Abuse: No Sexual Abuse: No Mistreated: No Fear: No Immunizations Up To Date Tetanus Booster (TDap): Unknown PED Vaccines UTD: Yes Date of Pneumonia Vaccine: Nov 30, 2016 Date of Influenza Vaccine: Feb 28, 2017 Seasonal Allergies Seasonal Allergies: No Past Medical History Surgeries: Yes (CARDIAC CATH WITH STENT TO LAD 11/30/18; LOOP RECORDER PLACED 11/01/18; LEFT KNEE ACL REPAIR; ORAL/GUM SURGERY; RIGHT SHOULDER ARTHROSCOPY; D&C WITH MIRENA IUD; ) Cardiac, Coronary Stent, Eye Surgery, Orthopedic Respiratory: Yes Asthma, Sleep Apnea Currently Using CPAP: Yes Currently Using BIPAP: No Cardiac: Yes (AFIB AND NSTEMI 11/30/18--CARDIAC CATH WITH STENT X 1 TO LAD; LOOP RECORDER 11/01/18; DVT LEFT LEG--35 YEARS AGO POST LEFT KNEE SCOPE SURGERY AND AGAIN IN 2016 WHILE IN PHYSICAL THERAPY ) Atrial Fibrillation, Chronic Edema/Swelling, Coronary Artery Disease, Deep Vein Thrombosis (AFIB AND NSTEMI 11/30/18--CARDIAC CATH WITH STENT X 1; LOOP RECORDER 11/01/18 ; DVT LEFT LEG WITH CHRONIC LEG EDEMA--LEFT >> RIGHT), Heart Attack, High Cholesterol, Hypertension Neurological: Yes Neuropathy : No 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 Sexually Transmitted Disease: No HIV/AIDS: No Genitourinary: Yes UTI-Chronic Gastrointestinal: Yes Gastroesophageal Reflux, Chronic Constipation Musculoskeletal: Yes (Charcot's Disease-IN FEET AND ANKLES; LEFT KNEE SURGERY; RIGHT SHOULDER SURGERY) Degenerate Disk Disease, Arthritis, Chronic Back Pain Endocrine: Yes (MORBID OBESITY) Diabetes, Insulin dep HEENT: Yes Cataract Loss of Vision: Bilateral Hearing Impairment: Denies Cancer: No Psychosocial: Yes Anxiety, Depression Integumentary: No Blood Disorders: No Adverse Reaction/Blood Tranf: No Family Medical History Cardiovascular disease 19 FATHER 19 MOTHER Colon cancer 19 MOTHER Diabetes mellitus 19 MOTHER G8 BROTHER G8 SISTER No Pertinent Family Hx Physical Exam Vital Signs Vital Signs - First Documented 12/30/18 22:19 Temp 96.5 Pulse 82 Resp 14 B/P (MAP) 133/88 (103) Pulse Ox 100 O2 Delivery Nasal Cannula O2 Flow Rate 2.00 Capillary Refill : Less Than 3 Seconds Height, Weight, BMI Height: 5'10.50" Weight: 302lbs. 0.0oz. 136.833040pp; 42.4 BMI Method:Stated General Appearance: Obese, Other (EXTREMELY ANXIOUS AND HYPERVENTILATING/DYSPNEIC, TALKING LOUDLY, NON-STOP AT GREAT LENGTH/FULL SENTENCES--DIFFICULTY GETTING A WORD IN, PT WILL NOT STOP TALKING LONG ENOUGH TO ASK QUESTIONS. ) Respiratory: Normal Breath Sounds, No Accessory Muscle Use, Other (HYPERVENTILATING) Cardiovascular: Regular Rate, Rhythm, Normal Peripheral Pulses Gastrointestinal: Soft Extremity: Pedal Edema (1+ EDEMA ON RIGHT; LEFT LEG MUCH LARGER/3+ EDEMA WITH CHRONIC VENOUS STASIS CHANGES ON LEFT. BILATERAL CHARCOT FEET. USES CRUTCHES TO WALK) Neurologic/Psychiatric: Alert, Oriented x3, No Motor/Sensory Deficits, occ therapy asst II- XII Norm as Tested, Other (EXTREMELY ANXIOUS) Skin: Normal Color, Warm/Dry; No Diaphoresis Progress/Results/Core Measures Results/Orders Lab Results Laboratory Tests Test 12/30/18 22:24 12/31/18 01:20 Range/Units White Blood Count 7.6 4.3-11.0 10^3/uL Red Blood Count 4.41 4.35-5.85 10^6/uL Hemoglobin 13.0 11.5-16.0 G/DL Hematocrit 39 35-52 % Mean Corpuscular Volume 88 80-99 FL Mean Corpuscular Hemoglobin 30 25-34 PG Mean Corpuscular Hemoglobin Concent 34 32-36 G/DL Red Cell Distribution Width 14.2 10.0-14.5 % Platelet Count 291 130-400 10^3/uL Mean Platelet Volume 10.1 7.4-10.4 FL Neutrophils (%) (Auto) 46 42-75 % Lymphocytes (%) (Auto) 40 12-44 % Monocytes (%) (Auto) 9 0-12 % Eosinophils (%) (Auto) 5 0-10 % Basophils (%) (Auto) 0 0-10 % Neutrophils # (Auto) 3.5 1.8-7.8 X 10^3 Lymphocytes # (Auto) 3.0 1.0-4.0 X 10^3 Monocytes # (Auto) 0.7 0.0-1.0 X 10^3 Eosinophils # (Auto) 0.4 H 0.0-0.3 10^3/uL Basophils # (Auto) 0.0 0.0-0.1 10^3/uL Prothrombin Time 15.3 H 12.2-14.7 SEC INR Comment 1.2 0.8-1.4 Activated Partial Thromboplast Time 32 24-35 SEC Sodium Level 141 135-145 MMOL/L Potassium Level 3.9 3.6-5.0 MMOL/L Chloride Level 105 98-107 MMOL/L Carbon Dioxide Level 20 L 21-32 MMOL/L Anion Gap 16 H 5-14 MMOL/L Blood Urea Nitrogen 15 7-18 MG/DL Creatinine 0.73 0.60-1.30 MG/DL Estimat Glomerular Filtration Rate > 60 BUN/Creatinine Ratio 21 Glucose Level 92 70-105 MG/DL Calcium Level 9.3 8.5-10.1 MG/DL Corrected Calcium 9.5 8.5-10.1 MG/DL Magnesium Level 1.7 1.6-2.4 MG/DL Total Bilirubin 0.2 0.1-1.0 MG/DL Aspartate Amino Transf (AST/SGOT) 24 5-34 U/L Alanine Aminotransferase (ALT/SGPT) 34 0-55 U/L Alkaline Phosphatase 190 H 40-136 U/L Total Creatine Kinase 80 29-168 U/L Creatine Kinase MB 0.9 <6.6 NG/ML Myoglobin 27.0 10.0-92.0 NG/ML Troponin I < 0.028 < 0.028 <0.028 NG/ML B-Type Natriuretic Peptide 40.1 <100.0 PG/ML Total Protein 7.4 6.4-8.2 GM/DL Albumin 3.7 3.2-4.5 GM/DL Amylase Level 24 L 25-125 U/L Lipase 14 8-78 U/L My Orders Orders - OTTONIELCALLUM K DO Lorazepam Injection (Ativan Injection) (12/30/18 22:30) Cbc With Automated Diff (12/30/18 22:25) Magnesium (12/30/18 22:25) Chest 1 View, Ap/Pa Only (12/30/18 22:25) Ekg Tracing (12/30/18 22:25) Cardiac Profile 1 (12/30/18 22:25) Comprehensive Metabolic Panel (12/30/18 22:25) Myoglobin Serum (12/30/18 22:25) Protime With Inr (12/30/18 22:25) Partial Thromboplastin Time (12/30/18 22:25) O2 (12/30/18 22:25) Monitor-Rhythm Ecg Trace Only (12/30/18 22:25) Lipid Panel (12/31/18 06:00) Ed Iv/Invasive Line Start (12/30/18 22:25) Creatine Kinase (12/30/18 22:25) Creatine Kinase Mb (12/30/18 22:25) Lipase (12/30/18 22:25) Amylase (12/30/18 22:25) BNP (12/30/18 22:25) Aspirin Chewable Tablet (Baby Aspirin Ch (12/30/18 22:30) Ekg Tracing (12/30/18 22:34) Ekg Tracing (12/30/18 22:34) Ekg Tracing (12/31/18 01:15) Troponin I (12/31/18 01:15) Medications Given in ED Current Medications Medications Dose Ordered Sig/Ashley Route Start Time Stop Time Status Last Admin Dose Admin Aspirin 324 mg ONCE ONCE PO 12/30/18 22:30 12/30/18 22:31 DC 12/30/18 22:32 324 MG Lorazepam 2 mg ONCE ONCE IVP 12/30/18 22:30 12/30/18 22:31 DC 12/30/18 22:32 2 MG Vital Signs/I&O 12/30/18 12/30/18 22:19 22:19 Temp 96.5 Pulse 82 Resp 14 B/P (MAP) 133/88 (103) Pulse Ox 100 100 O2 Delivery Nasal Cannula Nasal Cannula O2 Flow Rate 2.00 2.00 Blood Pressure Mean: 103 Progress Progress Note : Progress Note GIVEN ATIVAN SHORTLY AFTER ARRIVAL, AND ALL SYMPTOMS IMMEDIATELY AND COMPLETELY RESOLVED. PT OBSERVED IN ER AND DID REPEAT TROPONIN AND EKG'S--BOTH NORMAL NO FURTHER SYMPTOMS FOR REMAINDER OF ER STAY Initial ECG Impression Date: Dec 30, 2018 Initial ECG Impression Time: 22:25 Initial ECG Rate: 75 Initial ECG Rhythm: Normal Sinus (MUCH ARTIFACT, PVC'S) Initial ECG Impression: Nonspecific Changes, 1st Degree AV Block Initial ECG Comparisson: Unchanged (INFERIOR Q-WAVES, IVCD/INCOMPLETE LBBB) EKG : EKG Time: 22:27 Rate: 78 Rhythm: Normal Sinus (PVC, ARTIFACT) ECG Comparisson: Unchanged Comment EKG #3 AT 2229--RATE 78, NSR, UNCHANGED EKG #4 AT 0126--NSR RATE 70, UNCHANGED. INCOMPLETE LBBB, OLD INFERIOR/POSTERIOR INFARCT Departure Impression Primary Impression: ANXIETY WITH HYPERVENTILATION Additional Impressions: HX OF CAD WITH STENT PLACEMENT History of atrial fibrillation HX OF ASTHMA Disposition: HOME, SELF-CARE Condition: Improved Departure-Patient Inst. Referrals: DELIA TRIANA MD (PCP/Family) Primary Care Physician Janiya CORDOVA MD Patient Instructions: Anxiety, Adult (DC), Hyperventilation Add. Discharge Instructions: TAKE YOUR MEDICATIONS PRESCRIBED--DO NOT MISS DOSES OF MEDICATIONS FOLLOW UP WITH YOUR DR ON TUESDAY FOR FURTHER CARE, RETURN TO ER IF SYMPTOMS RETURN All discharge instructions reviewed with patient and/or family. Voiced understanding. Scripts Lorazepam (Ativan) 2 Mg Tablet 2 MG PO TID, #10 TAB Prov: CALLUM ALCAZAR DO 12/31/18 CALLUM ALCAZAR DO Dec 30, 2018 23:07
[2018-12-31] MEDS ORDERED: LORA-407 PO (01:52)
[2018-12-31 01:55] VITALS: BP 167/85
--- NOTE | 2018-12-31 07:52 | Diagnostic Imaging Report ---
INDICATION: Shortness of breath FINDINGS: The lungs are clear. The heart and vessels normal. There is no effusion or pneumothorax. IMPRESSION: No acute appearing abnormality Dictated by: Dictated on workstation # [id number]
== END 2018-12-31 01:59 | disposition home or self-care (01) ==
LOC: EDUNIT# 22:17 → ER 22:18
DX: F41.9 Anxiety disorder, unspecified (principal); R06.4 Hyperventilation; I25.10 Atherosclerotic heart disease of native coronary artery without angina pectoris; I48.91 Unspecified atrial fibrillation; J45.909 Unspecified asthma, uncomplicated; G47.30 Sleep apnea, unspecified; I25.2 Old myocardial infarction; E78.00 Pure hypercholesterolemia, unspecified; I10 Essential (primary) hypertension; G62.9 Polyneuropathy, unspecified; K21.9 Gastro-esophageal reflux disease without esophagitis; E11.9 Type 2 diabetes mellitus without complications; E66.01 Morbid (severe) obesity due to excess calories; F32.9 Major depressive disorder, single episode, unspecified; Z87.19 Personal history of other diseases of the digestive system; Z87.440 Personal history of urinary (tract) infections; Z86.718 Personal history of other venous thrombosis and embolism; Z95.5 Presence of coronary angioplasty implant and graft; Z91.14 Patient's other noncompliance with medication regimen; Z79.82 Long term (current) use of aspirin; Z88.8 Allergy status to other drugs, medicaments and biological substances; Z79.51 Long term (current) use of inhaled steroids; Z79.4 Long term (current) use of insulin; Z87.891 Personal history of nicotine dependence; Z82.49 Family history of ischemic heart disease and other diseases of the circulatory system; Z80.0 Family history of malignant neoplasm of digestive organs; Z68.41 Body mass index [BMI] 40.0-44.9, adult
CPT/HCPCS: 36415; 71045; 80053; 82150; 82550; 82553; 83690; 83735; 83874; 83880; 84484; 85025; 85610; 85730; 93005; 93041; 96374

== ENCOUNTER 2019-01-12 11:37 | Outpatient (RCR) | payer MEDICARE, MEDICAID ==
[~2019-01-12 11:37] MED LIST changes: +LORA-407 PO
[2019-03-07] MEDS ORDERED: DILT240C53 PO (12:04)
[2019-03-07] MEDS ORDERED: HYDR-3820 PO (12:04)
[2019-03-07] MEDS ORDERED: CYCL10TA9 PO (12:04)
[2019-03-07] MEDS ORDERED: WARF4TAB70 PO ×2 (12:04)
[2019-03-08] MEDS ORDERED: TR1C15 TP (09:31)
[2019-03-08] MEDS ORDERED: CEPH-507 PO (09:31)
[2019-03-08] MEDS ORDERED: DRON400T2 PO (09:41)
== END 2019-03-29 | disposition home or self-care (01) ==
LOC: CR 11:37
PROVIDERS: ATTEND Internal Medicine Cardiovascular Disease
DX: Z48.812 Encounter for surgical aftercare following surgery on the circulatory system (principal); Z95.5 Presence of coronary angioplasty implant and graft
CPT/HCPCS: 93798

== ENCOUNTER 2019-01-17 22:57 | Emergency (ER) | payer MEDICARE, MEDICAID ==
[~2019-01-17] VITALS: Ht 179.1 cm; Wt 137.0 kg
[2019-01-17] MEDS ORDERED: DILTIAZEM 25 MG/5 ML INJ (CARDIZEM) VIAL ONE (23:00)
[2019-01-17] MEDS ORDERED: NS IV 1000 ML 1,000 ML IV SCH (23:09)
[2019-01-17] MEDS ORDERED: meTOprolol 5 MG/5 ML (LOPRESSOR) VIAL IV ONE (23:15)
[2019-01-17] MEDS ORDERED: ACETAMINOPHEN 500 MG TAB (TYLENOL) PO PRN (23:15)
[2019-01-17] MEDS ORDERED: ONDANSETRON 4 MG/2 ML (SDV) Z0FRAN IVP ONE (23:15)
[2019-01-17] MEDS ORDERED: CEFEPIME INJECTION 1,000 MG in WATER (STERILE) FOR INJECTION 10 ML IV ONE (23:15)
[2019-01-17] MEDS ORDERED: DILTIAZEM IV FOR DRIP 125 MG in NS (IVPB) 100 ML IV SCH (23:15)
[2019-01-17] MEDS ORDERED: DILTIAZEM 25 MG/5 ML INJ (CARDIZEM) VIAL IVP ONE (23:15)
[2019-01-17 23:20] LABS: BASOPHILS % (AUTO) 0 % (0-10); EOSINOPHILS % (AUTO) 0 % (0-10); HEMATOCRIT 41 % (35-52); HEMOGLOBIN 14.2 G/DL (11.5-16.0); LYMPHOCYTES # (AUTO) 0.7 X 10^3 (1.0-4.0); LYMPHOCYTES % (AUTO) 9 % (12-44); MEAN CORPUSCULAR HEMOGLOBIN 30 PG (25-34); MEAN CORPUSCULAR HGB CONC 35 G/DL (32-36); MEAN CORPUSCULAR VOLUME 86 FL (80-99); MEAN PLATELET VOLUME 10.1 FL (7.4-10.4); MONOCYTES # (AUTO) 0.5 X 10^3 (0.0-1.0); MONOCYTES % (AUTO) 6 % (0-12); NEUTROPHILS # (AUTO) 6.6 X 10^3 (1.8-7.8); NEUTROPHILS % (AUTO) 85 % (42-75); PLATELET COUNT 253 10^3/uL (130-400); RED CELL DISTRIBUTION WIDTH 14.5 % (10.0-14.5); WHITE BLOOD COUNT 7.8 10^3/uL (4.3-11.0)
--- NOTE | 2019-01-17 23:20 | ED General ---
General Stated Complaint: N/V Source of Information: Patient, EMS, Group Home Records, Old Records Exam Limitations: No Limitations History of Present Illness Date Seen by Provider: Jan 17, 2019 Time Seen by Provider: 23:02 Initial Comments Patient presents to ER by EMS from [facility] she is doing cardiac rehabilitation after a stent known to Dr. Calvert and Dr. Pate, formerly [facility], later [facility]. She hasn't been having nausea and vomiting since last night when she vomited up her 200 mg of metoprolol. He been vomiting all day. She's been staying in bed. She complains of pain in both of her feet. Typically she uses gabapentin 800 mg 4 times a day for her neuropathic foot pain. She had a fever per nursing staff but apparently they did not give her anything for fever or nausea. She is tachycardic in the 140s to 150s A. fib with RVR per EMS. They started an IV and gave her first half a liter of saline en route. No nausea medicines en route. Patient was having some chest pain earlier this morning. She's not having any chest pain now. Allergies and Home Medications Allergies Coded Allergies: amylase (Verified Allergy, Unknown, 08/07/15) black cohosh (Verified Allergy, Unknown, 08/07/15) cellulase (Verified Allergy, Unknown, 08/07/15) glyburide (Verified Allergy, Unknown, 08/07/15) isosorbide (Verified Allergy, Unknown, 08/07/15) lipase (Verified Allergy, Unknown, 08/07/15) protease (Verified Allergy, Unknown, 08/07/15) Home Medications Acetaminophen 500 Mg Tablet, 1,000 MG PO DAILY, (Reported) TAKES 2 (500MG) TABLETS Acetaminophen 500 Mg Tablet, 1,000 MG PO DAILY PRN for PAIN-MILD, (Reported) TAKES 2 (500MG) TABLETS; ALWAYS TAKES 2 IN THE MORNING AND OCCASIONALLY WILL TAKE ANOTHER DOSE LATER IN THE DAY NEEDED Albuterol Sulfate 1 Puff Puff, 2 PUFF INH QID PRN for SHORTNESS OF BREATH, (Reported) Aspirin 81 Mg Tablet.dr, 81 MG PO DAILY, (Reported) Atorvastatin Calcium 80 Mg Tablet, 80 MG PO HS, (Reported) Calcium Carbonate/Vitamin D3 1 Each Tablet, 1 TAB PO BID, (Reported) Cetirizine HCl 10 Mg Tablet, 10 MG PO DAILY, (Reported) Cholecalciferol (Vitamin D3) 1,000 Unit Capsule, 2,000 UNIT PO 1200, (Reported) Cyclosporine 1 Each [place], 1 DROP OU BID, (Reported) Dabigatran Etexilate Mesylate 150 Mg Capsule, 150 MG PO BID, (Reported) Etodolac 500 Mg Tablet, 500 MG PO BID, (Reported) Ferrous Sulfate 325 Mg Tablet, 325 MG PO DAILY, (Reported) Fluticasone Propionate 16 Gm [place].susp, 2 SPRAYS NS DAILY PRN for ALLERGIES, (Reported) Fluticasone/Vilanterol 1 Each Blst.w.dev, 1 PUFF INH DAILY, (Reported) Gabapentin 800 Mg Tablet, 800 MG PO QID, (Reported) Glucosamine/D3/Boswellia Nellie 1 Each Tablet, 1 TAB PO BID, (Reported) Imipramine HCl 50 Mg Tablet, 50 MG PO HS, (Reported) Insulin Aspart 300 Units/3 Ml Solution, 8 UNITS SQ TIDAC, (Reported) Insulin Glargine,Hum.rec.anlog 100 Unit/1 Ml Vial, 20 UNIT SQ HS, (Reported) Lactobacillus Rhamnosus GG 1 Each Capsule, 1 CAP PO DAILY PRN for WHILE TAKING ANTIBIOTICS, (Reported) Lisinopril 20 Mg Tablet, 20 MG PO DAILY, (Reported) Lorazepam 2 Mg Tablet, 2 MG PO TID Prescribed by: CALLUM ALCAZAR on 12/31/18 0152 Metformin HCl 1,000 Mg Tablet, 1,000 MG PO BID, (Reported) Metoprolol Succinate 100 Mg Tab.er.24h, 100 MG PO BID, (Reported) Mineral Oil/Petrolatum,White 3.5 Gm Oint...g., OU HS, (Reported) Mirabegron 50 Mg Tab.er.24h, 50 MG PO DAILY, (Reported) Multivitamin with Minerals 1 Each Tablet, 1 TAB PO DAILY, (Reported) Nitrofurantoin Macrocrystal 100 Mg Capsule, 100 MG PO 1800, (Reported) [place] 3 Polyunsat Fatty Acids 1,000 Mg Cap, 1,000 MG PO TID, (Reported) Polyethylene Glycol 3350 17 Gm Powd.pack, 17 GM PO DAILY PRN for CONSTIPATION- 2ND LINE, (Reported) Polyvinyl Alcohol/Povidone 15 Ml Drops, 2 DROPS OU Q2H, (Reported) Prasugrel HCl 10 Mg Tablet, 10 MG PO DAILY, (Reported) Primidone 250 Mg Tablet, 250 MG PO TID, (Reported) Ranitidine HCl 150 Mg Tablet, 150 MG PO DAILY PRN for HEARTBURN, (Reported) Solifenacin Succinate 10 Mg Tablet, 10 MG PO 1600, (Reported) Venlafaxine HCl 75 Mg Cap.er.24h, 75 MG PO DAILY, (Reported) Patient Home Medication List Home Medication List Reviewed: Yes Review of Systems Review of Systems Constitutional: chills, fever, malaise, weakness EENTM: No ear discharge, No ear pain Respiratory: No cough, No phlegm; short of breath; No wheezing Cardiovascular: see HPI, chest pain (in the morning); No edema; Hx of Intervention, palpitations Gastrointestinal: No abdominal pain, No constipation, No diarrhea; nausea, vomiting Genitourinary: No dysuria, No frequency Musculoskeletal: No back pain, No joint pain Skin: No pruritus, No rash Psychiatric/Neurological: Denies Headache, Denies Numbness, Denies Paresthesia Past [id number] Hx Patient Social History Alcohol Use: Denies Use Recreational Drug Use: No Smoking Status: Former Smoker Type Used: Cigarettes Former Smoker, Quit: May 18, 1980 2nd Hand Smoke Exposure: No Recent Foreign Travel: No Contact w/Someone Who Travel: No Recent Hopitalizations: No Immunizations Up To Date Tetanus Booster (TDap): Unknown PED Vaccines UTD: Yes Date of Pneumonia Vaccine: Nov 30, 2016 Date of Influenza Vaccine: Feb 28, 2017 Seasonal Allergies Seasonal Allergies: No Past Medical History Surgeries: Yes Cardiac, Coronary Stent, Eye Surgery, Orthopedic Respiratory: Yes Asthma, Sleep Apnea Currently Using CPAP: Yes Currently Using BIPAP: No Cardiac: Yes Atrial Fibrillation, Chronic Edema/Swelling, Coronary Artery Disease, Deep Vein Thrombosis, Heart Attack, High Cholesterol, Hypertension Neurological: Yes Neuropathy 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 Sexually Transmitted Disease: No HIV/AIDS: No Genitourinary: Yes UTI-Chronic Gastrointestinal: Yes Gastroesophageal Reflux, Chronic Constipation Musculoskeletal: Yes Degenerate Disk Disease, Arthritis, Chronic Back Pain Endocrine: Yes (MORBID OBESITY) Diabetes, Insulin dep HEENT: Yes Cataract Loss of Vision: Bilateral Hearing Impairment: Denies Cancer: No Psychosocial: Yes Anxiety, Depression Integumentary: No Blood Disorders: No Adverse Reaction/Blood Tranf: No Family Medical History Cardiovascular disease 19 FATHER 19 MOTHER Colon cancer 19 MOTHER Diabetes mellitus 19 MOTHER G8 BROTHER G8 SISTER No Pertinent Family Hx Physical Exam-Suspected Sepsis Physical Exam Vital Signs Vital Signs - First Documented 01/17/19 01/17/19 23:33 23:50 Pulse 137 B/P (MAP) 116/77 O2 Delivery Nasal Cannula O2 Flow Rate 2.00 Capillary Refill : Height, Weight, BMI Height: 5'10.50" Weight: 302lbs. 0.0oz. [id number]; 42.4 BMI Method:Stated General Appearance: Anxious, Moderate Distress Eyes: Bilateral Eye Normal Inspection, Bilateral Eye PERRL, Bilateral Eye EOMI HEENT: PERRL/EOMI, TMs Normal, Normal ENT Inspection, Pharynx Normal; No Moist Mucous Membranes Neck: Full Range of Motion, Normal Inspection, Non Tender, Supple Respiratory: Chest Non Tender, Lungs Clear, Normal Breath Sounds, No Accessory Muscle Use, No Respiratory Distress Cardiovascular: No Edema, Normal Peripheral Pulses, Tachycardia Gastrointestinal: Normal Bowel Sounds, Non Tender, Soft Extremity: Normal Capillary Refill, Non Tender Neurologic/Psychiatric: Alert, Oriented x3 Skin: normal color, warm/dry Focused Exam Sepsis Stage: Ruled Out Reason for ruling out sepsis: hi HR 2/2 A.F c RVR but no wbc,rr,low bp etc. only temp reported Lactate Level 01/17/19 23:05: Lactic Acid Level 1.99 Time of Focused Exam: 00:35 Respiratory: Chest Non Tender, Lungs Clear, Normal Breath Sounds, No Accessory Muscle Use, No Respiratory Distress Cardiovascular: Regular Rate, Rhythm, Normal Peripheral Pulses Capillary Refill: Less Than 3 Seconds Peripheral Pulses: 2+ Radial Pulses (R), 2+ Radial Pulses (L) Skin: normal color, warm/dry Lactic Acid Level Laboratory Tests Test 01/17/19 23:05 Lactic Acid Level 1.99 MMOL/L (0.50-2.00) Within 3hrs of presentation: Admin fluids, Admin 30ml/kg IBW due to BMI>30, Ad min ABX, Blood cultures prior to ABX's, Focus exam, Lactate level Progress/Results/Core Measures Suspected Sepsis SIRS Temperature: Pulse: Respiratory Rate: Laboratory Tests 01/17/19 23:05: White Blood Count 7.8 Blood Pressure / Mean: 01/17/19 23:05: Lactic Acid Level 1.99 Laboratory Tests 01/17/19 23:05: Creatinine 0.74, INR Comment 1.1, Platelet Count 253, Total Bilirubin 0.3 Results/Orders Lab Results Laboratory Tests Test 01/17/19 23:05 01/17/19 23:21 Range/Units White Blood Count 7.8 4.3-11.0 10^3/uL Red Blood Count 4.76 4.35-5.85 10^6/uL Hemoglobin 14.2 11.5-16.0 G/DL Hematocrit 41 35-52 % Mean Corpuscular Volume 86 80-99 FL Mean Corpuscular Hemoglobin 30 25-34 PG Mean Corpuscular Hemoglobin Concent 35 32-36 G/DL Red Cell Distribution Width 14.5 10.0-14.5 % Platelet Count 253 130-400 10^3/uL Mean Platelet Volume 10.1 7.4-10.4 FL Neutrophils (%) (Auto) 85 H 42-75 % Lymphocytes (%) (Auto) 9 L 12-44 % Monocytes (%) (Auto) 6 0-12 % Eosinophils (%) (Auto) 0 0-10 % Basophils (%) (Auto) 0 0-10 % Neutrophils # (Auto) 6.6 1.8-7.8 X 10^3 Lymphocytes # (Auto) 0.7 L 1.0-4.0 X 10^3 Monocytes # (Auto) 0.5 0.0-1.0 X 10^3 Eosinophils # (Auto) 0.0 0.0-0.3 10^3/uL Basophils # (Auto) 0.0 0.0-0.1 10^3/uL Prothrombin Time 15.1 H 12.2-14.7 SEC INR Comment 1.1 0.8-1.4 Activated Partial Thromboplast Time 33 24-35 SEC Sodium Level 136 135-145 MMOL/L Potassium Level 3.8 3.6-5.0 MMOL/L Chloride Level 103 98-107 MMOL/L Carbon Dioxide Level 18 L 21-32 MMOL/L Anion Gap 15 H 5-14 MMOL/L Blood Urea Nitrogen 17 7-18 MG/DL Creatinine 0.74 0.60-1.30 MG/DL Estimat Glomerular Filtration Rate > 60 BUN/Creatinine Ratio 23 Glucose Level 185 H 70-105 MG/DL Lactic Acid Level 1.99 0.50-2.00 MMOL/L Calcium Level 8.5 8.5-10.1 MG/DL Corrected Calcium 8.8 8.5-10.1 MG/DL Total Bilirubin 0.3 0.1-1.0 MG/DL Aspartate Amino Transf (AST/SGOT) 21 5-34 U/L Alanine Aminotransferase (ALT/SGPT) 30 0-55 U/L Alkaline Phosphatase 153 H 40-136 U/L Troponin I < 0.028 <0.028 NG/ML B-Type Natriuretic Peptide 320.0 H <100.0 PG/ML Total Protein 7.0 6.4-8.2 GM/DL Albumin 3.6 3.2-4.5 GM/DL Urine Color YELLOW Urine Clarity SLIGHTLY CLOUDY Urine pH 8 5-9 Urine Specific [place] 1.010 L 1.016-1.022 Urine Protein 1+ H NEGATIVE Urine Glucose (UA) NEGATIVE NEGATIVE Urine Ketones 3+ H NEGATIVE Urine Nitrite POSITIVE H NEGATIVE Urine Bilirubin 1+ H NEGATIVE Urine Urobilinogen NORMAL NORMAL MG/DL Urine Leukocyte Esterase 3+ H NEGATIVE Urine RBC (Auto) NEGATIVE NEGATIVE Urine RBC RARE /HPF Urine WBC 50-100 H /HPF Urine Squamous Epithelial Cells RARE /HPF Urine Crystals NONE /LPF Urine Bacteria TRACE /HPF Urine Casts NONE /LPF Urine Mucus NEGATIVE /LPF Urine Culture Indicated CULTURE PENDING Micro Results Microbiology 01/17/19 Influenza Types A,B Antigen (DANIELLE) - Final, Complete My Orders Orders - SIVAKUMAR CONTRERAS Diltiazem Injection (Cardizem Injection) (01/17/19 23:00) Ekg Tracing (01/17/19 23:07) Continuous Ekg Monitoring (01/17/19 23:07) Straight Cath For Spec.-Adult (01/17/19 23:07) Ondansetron Injection (Zofran Injectio (01/17/19 23:15) Metoprolol Tartrate Injection (Lopressor (01/17/19 23:15) Diltiazem Injection (Cardizem Injection) (01/17/19 23:15) Ns (Ivpb) (Sodium C... W/Diltiazem Iv Fo (01/17/19 23:15) Cbc With Automated Diff (01/17/19 23:09) Comprehensive Metabolic Panel (01/17/19 23:09) Blood Culture (01/17/19 23:09) Sputum Culture (01/17/19 23:09) Urinalysis (01/17/19 23:09) Urine Culture (01/17/19:09) Protime With Inr (01/17/19:09) Partial Thromboplastin Time (01/17/19:09) Chest 1 View, Ap/Pa Only (01/17/19 23:09) Acetaminophen Tablet (Tylenol Tablet) (01/17/19 23:15) Ed Iv/Invasive Line Start (01/17/19 23:09) Ed Iv/Invasive Line Start (01/17/19 23:09) Troponin I (01/17/19:) Vital Signs Adult Sepsis Patie Q15M (01/17/19:09) O2 (01/17/19:) Remove Rings In Anticipation O (01/17/19:) Lactic Acid Analyzer (01/17/19:) Influenza A And B Antigens (01/17/19:09) Ns Iv 1000 Ml (Sodium Chloride 0.9%) (01/17/19 23:09) Cefepime Injection (Maxipime Injection) (01/17/19 23:15) BNP (01/17/19 23:09) Fentanyl Injection (Sublimaze Injection (01/17/19 23:30) Ed Iv/Invasive Line Start (01/18/19 00:12) Ns Iv 1000 Ml (Sodium Chloride 0.9%) (01/18/19 00:12) Ondansetron Injection (Zofran Injectio (01/18/19 00:15) Promethazine Injection (Phenergan Injec (01/18/19 00:15) Ed Iv/Invasive Line Start (01/18/19 00:18) Ns Iv 1000 Ml (Sodium Chloride 0.9%) (01/18/19 00:30) Medications Given in ED Current Medications Medications Dose Ordered Sig/Ashley Route Start Time Stop Time Status Last Admin Dose Admin Cefepime HCl 1000 mg/Sterile Water 10 ml @ 200 mls/hr ONCE ONCE IV 01/17/19 23:15 01/17/19 23:17 DC 01/17/19 23:44 200 MLS/HR Diltiazem HCl 10 mg ONCE ONCE IVP 01/17/19 23:15 01/17/19 23:16 DC 01/17/19 23:15 10 MG Fentanyl Citrate 50 mcg ONCE ONCE IVP 01/17/19 23:30 01/17/19 23:31 DC 01/17/19 23:32 50 MCG Metoprolol Tartrate 5 mg ONCE ONCE IV 01/17/19 23:15 01/17/19 23:16 DC 01/17/19 23:32 5 MG Ondansetron HCl 8 mg ONCE ONCE IVP 01/17/19 23:15 01/17/19 23:16 DC 01/17/19 23:29 8 MG Vital Signs/I&O 01/17/19 01/17/19 23:33 23:50 Pulse 137 B/P (MAP) 116/77 O2 Delivery Nasal Cannula O2 Flow Rate 2.00 01/18/19 00:00 Intake Total 210 ml Balance 210 ml Capillary Refill : Progress Note : Time: 23:34 Progress Note Time of IV metoprolol, 10 of Cardizem and put her on a Cardizem drip. IV fluids 2 L will be around 20 mL/kg based on an ideal body weight adjusted at 181 pounds. She is afebrile right now. We'll give her 8 mg of IV Zofran and when she is able to tolerate orals we can let her have her gabapentin. Cefepime for unknown infectious source. With her GI symptoms as reasonable to suspect the got. She has a benign, nontender abdominal exam at this time. Viral gastritis is possible. Septic workup. ECG Initial ECG Impression Date: Jan 17, 2019 Initial ECG Impression Time: 23:08 Initial ECG Rate: 138 Initial ECG Rhythm: A Fib/Flutter Initial ECG Intervals: Normal Initial ECG Impression: Atrial Fibrillation w/RVR Initial ECG Comparisson: Changed Comment A. fib with rapid ventricular response Diagnostic Imaging Diagonstic Imaging: Xray Plain Films/CT/US/NM/MRI: chest (1v) Comments No acute cardiopulmonary processes. Reviewed: Reviewed by Me Departure Impression Primary Impression: Atrial fibrillation with rapid ventricular response Additional Impressions: UTI (urinary tract infection) Qualified Codes: N30.00 - Acute cystitis without hematuria Nausea & vomiting Qualified Codes: R11.2 - Nausea with vomiting, unspecified Chest pain Qualified Codes: R07.9 - Chest pain, unspecified Disposition: XFER SHT-TRM HOSP Condition: Stable Transfer Time Spoke to Accepting Phy: 00:[address] Bhumika Ndukwu: Accepts the patient to TCU. Transfer Facility: [facility] [place] Method of Transfer: EMS Departure-Patient Inst. Referrals: DELIA TRIANA MD (PCP/Family) Primary Care Physician Copy Copies To 1: ALFREDO CARLSON TITUS J Jan 17, 2019 23:20
[2019-01-17] MEDS ORDERED: fentaNYL INJECTION 100 MCG/2 ML AMP IVP ONE (23:30)
[2019-01-17 23:34] LABS: CLARITY,URINE SLIGHTLY CLOUDY; COLOR,URINE YELLOW; GLUCOSE, URINE (UA) NEGATIVE (NEGATIVE); KETONES,URINE 3+ (NEGATIVE); LEUKOCYTE ESTERASE ,URINE 3+ (NEGATIVE); NITRITE,URINE POSITIVE (NEGATIVE); PH,URINE 8 (5-9); PROTEIN,URINE 1+ (NEGATIVE); UROBILINOGEN,URINE NORMAL (NORMAL)
[2019-01-17 23:41] LABS: BACTERIA,URINE TRACE /HPF; BILIRUBIN,URINE 1+ (NEGATIVE); RBC,URINE RARE /HPF; SQUAMOUS EPITHELIAL CELL,UR RARE /HPF; WBC,URINE 50-100 /HPF
[2019-01-17 23:52] LABS: INR 1.1 (0.8-1.4); PROTHROMBIN TIME PATIENT 15.1 SEC (12.2-14.7)
[2019-01-18] LABS: ALANINE AMINOTRANSFERASE 30 U/L (0-55); ALBUMIN 3.6 GM/DL (3.2-4.5); ALKALINE PHOSPHATASE 153 U/L (40-136); BILIRUBIN,TOTAL 0.3 MG/DL (0.1-1.0); BUN/CREATININE RATIO 23; CALCIUM 8.5 MG/DL (8.5-10.1); CARBON DIOXIDE 18 MMOL/L (21-32); CHLORIDE 103 MMOL/L (98-107); CREATININE SERUM 0.74 MG/DL (0.60-1.30); GFR ESTIMATED > 60; GLUCOSE 185 MG/DL (70-105); POTASSIUM 3.8 MMOL/L (3.6-5.0); SODIUM 136 MMOL/L (135-145)
[2019-01-18] MEDS ORDERED: NS IV 1000 ML 1,000 ML IV SCH (00:12)
[2019-01-18] MEDS ORDERED: ONDANSETRON 4 MG/2 ML (SDV) Z0FRAN IVP ONE (00:15)
[2019-01-18] MEDS ORDERED: PROMETHAZINE INJ 25 MG/ML (PHENERGAN) AMP IVP ONE (00:15)
[2019-01-18] MEDS ORDERED: NS IV 1000 ML 1,000 ML IV ONE (00:30)
[2019-01-18 01:24] VITALS: BP 125/81
--- NOTE | 2019-01-18 06:25 | Diagnostic Imaging Report ---
INDICATION: Shortness of breath and cough. Portable chest 11:53 PM FINDINGS: Heart and mediastinum are normal. Lungs are clear. There are no effusions or pneumothoraces. There is a loop recorder projecting over the left chest. IMPRESSION: No acute abnormalities in the chest. Dictated by: Dictated on workstation # [id number]
== END 2019-01-18 01:33 | disposition short-term general hospital (02) ==
LOC: EDUNIT# 22:57 → ER 22:57
DX: I48.91 Unspecified atrial fibrillation (principal); N39.0 Urinary tract infection, site not specified; R11.2 Nausea with vomiting, unspecified; R07.9 Chest pain, unspecified; J45.909 Unspecified asthma, uncomplicated; G47.30 Sleep apnea, unspecified; I25.10 Atherosclerotic heart disease of native coronary artery without angina pectoris; I25.2 Old myocardial infarction; I10 Essential (primary) hypertension; E78.00 Pure hypercholesterolemia, unspecified; E11.40 Type 2 diabetes mellitus with diabetic neuropathy, unspecified; K21.9 Gastro-esophageal reflux disease without esophagitis; E66.01 Morbid (severe) obesity due to excess calories; F41.9 Anxiety disorder, unspecified; F32.9 Major depressive disorder, single episode, unspecified; Z87.440 Personal history of urinary (tract) infections; Z86.718 Personal history of other venous thrombosis and embolism; Z88.8 Allergy status to other drugs, medicaments and biological substances; Z79.82 Long term (current) use of aspirin; Z79.4 Long term (current) use of insulin; Z87.891 Personal history of nicotine dependence; Z95.5 Presence of coronary angioplasty implant and graft; Z68.41 Body mass index [BMI] 40.0-44.9, adult
CPT/HCPCS: 36415; 51701; 71045; 80053; 81000; 83605; 83880; 84484; 85025; 85610; 85730; 87040; 87088; 87804; 93005; 96361; 96365; 96366; 96375; 96376

== ENCOUNTER 2019-03-06 14:11 | Observation (INO) | payer MEDICARE, MEDICAID ==
[~2019-03-06] VITALS: Ht 178 cm; Wt 135.3 kg
[2019-03-06] VITALS (12 sets, daily range): BP systolic 107–137; BP diastolic 60–85
[2019-03-06 14:50] LABS: BASOPHILS % (AUTO) 0 % (0-10); EOSINOPHILS # (AUTO) 0.2 10^3/uL (0.0-0.3); EOSINOPHILS % (AUTO) 3 % (0-10); HEMATOCRIT 40 % (35-52); HEMOGLOBIN 12.8 G/DL (11.5-16.0); LYMPHOCYTES # (AUTO) 2.7 X 10^3 (1.0-4.0); LYMPHOCYTES % (AUTO) 36 % (12-44); MEAN CORPUSCULAR HEMOGLOBIN 28 PG (25-34); MEAN CORPUSCULAR HGB CONC 32 G/DL (32-36); MEAN CORPUSCULAR VOLUME 86 FL (80-99); MEAN PLATELET VOLUME 10.1 FL (7.4-10.4); MONOCYTES # (AUTO) 0.7 X 10^3 (0.0-1.0); MONOCYTES % (AUTO) 9 % (0-12); NEUTROPHILS % (AUTO) 52 % (42-75); PLATELET COUNT 358 10^3/uL (130-400); RED CELL DISTRIBUTION WIDTH 15.2 % (10.0-14.5); WHITE BLOOD COUNT 7.6 10^3/uL (4.3-11.0)
[2019-03-06] MEDS ORDERED: DILTIAZEM 25 MG/5 ML INJ (CARDIZEM) VIAL IVP ONE (15:00)
[2019-03-06] MEDS ORDERED: DILTIAZEM IV FOR DRIP 125 MG in NS (IVPB) 100 ML IV SCH (15:00)
--- NOTE | 2019-03-06 15:01 | ED Cardiac General ---
History of Present Illness General Chief Complaint: Cardiac/General Problems Stated Complaint: A-FIB;SOA;CHEST PRESSURE Nursing Triage Note: TO ROOM PER W/C REPORTS THAT AT 11AM TODAY FELT LIKE SHE MAY BE IN A FIB CALLED DR OFFICE AND THEY HAD HER SEND A STRIP BY RECORER. THAT SHE WAS IN A FIB C/O AIB WITH SOA. Source: patient, family Exam Limitations: no limitations History of Present Illness Date Seen by Provider: Mar 06, 2019 Time Seen by Provider: 14:57 Initial Comments This 68-year-old white female presents with palpitations and weakness that began this morning. Patient when she sent a record and strep to her doctor was found to be in atrial fibrillation with a fast ventricular response. She was referred to the emergency department for further evaluation care. Patient has similar presentation approximately 6 weeks ago. She was found to be in A. fib with RVR. She was transferred to [facility] due to no room at this [facility]pi [facility]. She ultimately responded to a Cardizem drip. She was placed on oral Cardizem and discharged. The patient's symptoms recurred this morning precipitating her presentation to the emergency department. Allergies and Home Medications Allergies Coded Allergies: amylase (Verified Allergy, Unknown, 08/07/15) black cohosh (Verified Allergy, Unknown, 08/07/15) cellulase (Verified Allergy, Unknown, 08/07/15) glyburide (Verified Allergy, Unknown, 08/07/15) isosorbide (Verified Allergy, Unknown, 08/07/15) lipase (Verified Allergy, Unknown, 08/07/15) protease (Verified Allergy, Unknown, 08/07/15) Home Medications Acetaminophen 500 Mg Tablet, 1,000 MG PO DAILY, (Reported) TAKES 2 (500MG) TABLETS Acetaminophen 500 Mg Tablet, 1,000 MG PO DAILY PRN for PAIN-MILD, (Reported) TAKES 2 (500MG) TABLETS; ALWAYS TAKES 2 IN THE MORNING AND OCCASIONALLY WILL TAKE ANOTHER DOSE LATER IN THE DAY NEEDED Albuterol Sulfate 1 Puff Puff, 2 PUFF INH QID PRN for SHORTNESS OF BREATH, (Reported) Aspirin 81 Mg Tablet., 81 MG PO DAILY, (Reported) Atorvastatin Calcium 80 Mg Tablet, 80 MG PO HS, (Reported) Calcium Carbonate/Vitamin D3 1 Each Tablet, 1 TAB PO BID, (Reported) Cetirizine HCl 10 Mg Tablet, 10 MG PO DAILY, (Reported) Cholecalciferol (Vitamin D3) 1,000 Unit Capsule, 2,000 UNIT PO 1200, (Reported) Cyclosporine 1 Each Droperette, 1 DROP OU BID, (Reported) Dabigatran Etexilate Mesylate 150 Mg Capsule, 150 MG PO BID, (Reported) Etodolac 500 Mg Tablet, 500 MG PO BID, (Reported) Ferrous Sulfate 325 Mg Tablet, 325 MG PO DAILY, (Reported) Fluticasone Propionate 16 Gm Liberty.susp, 2 SPRAYS NS DAILY PRN for ALLERGIES, (Reported) Fluticasone/Vilanterol 1 Each Blst.w.dev, 1 PUFF INH DAILY, (Reported) Gabapentin 800 Mg Tablet, 800 MG PO QID, (Reported) Glucosamine/D3/Boswellia Nellie 1 Each Tablet, 1 TAB PO BID, (Reported) Imipramine HCl 50 Mg Tablet, 50 MG PO HS, (Reported) Insulin Aspart 300 Units/3 Ml Solution, 8 UNITS SQ TIDAC, (Reported) Insulin Glargine,Hum.rec.anlog 100 Unit/1 Ml Vial, 20 UNIT SQ HS, (Reported) Lactobacillus Rhamnosus GG 1 Each Capsule, 1 CAP PO DAILY PRN for WHILE TAKING ANTIBIOTICS, (Reported) Lisinopril 20 Mg Tablet, 20 MG PO DAILY, (Reported) Lorazepam 2 Mg Tablet, 2 MG PO TID Prescribed by: CALLUM ALCAZAR on 12/31/18 0152 Metformin HCl 1,000 Mg Tablet, 1,000 MG PO BID, (Reported) Metoprolol Succinate 100 Mg Tab.er.24h, 100 MG PO BID, (Reported) Mineral Oil/Petrolatum,White 3.5 Gm Oint...g., OU HS, (Reported) Mirabegron 50 Mg Tab.er.24h, 50 MG PO DAILY, (Reported) Multivitamin with Minerals 1 Each Tablet, 1 TAB PO DAILY, (Reported) Nitrofurantoin Macrocrystal 100 Mg Capsule, 100 MG PO 1800, (Reported) [place] 3 Polyunsat Fatty Acids 1,000 Mg Cap, 1,000 MG PO TID, (Reported) Polyethylene Glycol 3350 17 Gm Powd.pack, 17 GM PO DAILY PRN for CONSTIPATION- 2ND LINE, (Reported) Polyvinyl Alcohol/Povidone 15 Ml Drops, 2 DROPS OU Q2H, (Reported) Prasugrel HCl 10 Mg Tablet, 10 MG PO DAILY, (Reported) Primidone 250 Mg Tablet, 250 MG PO TID, (Reported) Ranitidine HCl 150 Mg Tablet, 150 MG PO DAILY PRN for HEARTBURN, (Reported) Solifenacin Succinate 10 Mg Tablet, 10 MG PO 1600, (Reported) Venlafaxine HCl 75 Mg Cap.er.24h, 75 MG PO DAILY, (Reported) Patient Home Medication List Home Medication List Reviewed: Yes Review of Systems Review of Systems Constitutional: No chills, No fever EENTM: No Blurred Vision Respiratory: Denies Cough Cardiovascular: See HPI, Irregular Heart Rate, Palpitations Gastrointestinal: Denies Abdominal Pain; Nausea Genitourinary: Denies Drainage, Denies Frequency Musculoskeletal: No back pain Skin: No change in color, No rash Psychiatric/Neurological: No Symptoms Reported Endocrine: No Symptoms Reported Hematologic/Lymphatic: No Symptoms Reported Past Mcivxws-Ubgqil-Ozhmyr Hx Past Med/Social Hx: Reviewed Nursing Past Med/Soc Hx Patient Social History Alcohol Use: Denies Use Recreational Drug Use: No Smoking Status: Former Smoker Type Used: Cigarettes Former Smoker, Quit: May 18, 1980 2nd Hand Smoke Exposure: No Recent Foreign Travel: No Contact w/Someone Who Travel: No Recent Infectious Disease Expo: No Recent Hopitalizations: No Immunizations Up To Date Tetanus Booster (TDap): Unknown PED Vaccines UTD: Yes Date of Pneumonia Vaccine: Nov 30, 2016 Date of Influenza Vaccine: Feb 28, 2017 Seasonal Allergies Seasonal Allergies: No Past Medical History Surgeries: Yes Cardiac, Coronary Stent, Eye Surgery, Orthopedic Respiratory: Yes Asthma, Sleep Apnea Currently Using CPAP: Yes Currently Using BIPAP: No Cardiac: Yes Atrial Fibrillation, Chronic Edema/Swelling, Coronary Artery Disease, Deep Vein Thrombosis, Heart Attack, High Cholesterol, Hypertension Neurological: Yes Neuropathy 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 Disorders: Yes 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 Sexually Transmitted Disease: No HIV/AIDS: No Genitourinary: Yes UTI-Chronic Gastrointestinal: Yes Gastroesophageal Reflux, Chronic Constipation Musculoskeletal: Yes Degenerate Disk Disease, Arthritis, Chronic Back Pain Endocrine: Yes (MORBID OBESITY) Diabetes, Insulin dep HEENT: Yes Cataract Loss of Vision: Bilateral Hearing Impairment: Denies Cancer: No Psychosocial: Yes Anxiety, Depression Integumentary: No Blood Disorders: No Adverse Reaction/Blood Tranf: No Family Medical History Cardiovascular disease 19 FATHER 19 MOTHER Colon cancer 19 MOTHER Diabetes mellitus 19 MOTHER G8 BROTHER G8 SISTER No Pertinent Family Hx Physical Exam Vital Signs Vital Signs - First Documented 03/06/19 14:11 Pulse 130 Resp 18 B/P (MAP) 135/60 (85) Pulse Ox 97 O2 Delivery Room Air Capillary Refill : Less Than 3 Seconds Height, Weight, BMI Height: 5'10.50" Weight: 302lbs. 0.0oz. 136.969503tl; 41.00 BMI Method:Stated General Appearance: WD/WN, Mild Distress HEENT: Normal ENT Inspection Neck: Normal Inspection Respiratory: Lungs Clear Cardiovascular: Tachycardia Gastrointestinal: Normal Bowel Sounds Extremity: Normal Range of Motion Neurologic/Psychiatric: Oriented x3, No Motor/Sensory Deficits Skin: Normal Color, Warm/Dry Progress/Results/Core Measures Results/Orders Lab Results Laboratory Tests Test 03/06/19 14:20 Range/Units White Blood Count 7.6 4.3-11.0 10^3/uL Red Blood Count 4.57 4.35-5.85 10^6/uL Hemoglobin 12.8 11.5-16.0 G/DL Hematocrit 40 35-52 % Mean Corpuscular Volume 86 80-99 FL Mean Corpuscular Hemoglobin 28 25-34 PG Mean Corpuscular Hemoglobin Concent 32 32-36 G/DL Red Cell Distribution Width 15.2 H 10.0-14.5 % Platelet Count 358 130-400 10^3/uL Mean Platelet Volume 10.1 7.4-10.4 FL Neutrophils (%) (Auto) 52 42-75 % Lymphocytes (%) (Auto) 36 12-44 % Monocytes (%) (Auto) 9 0-12 % Eosinophils (%) (Auto) 3 0-10 % Basophils (%) (Auto) 0 0-10 % Neutrophils # (Auto) 4.0 1.8-7.8 X 10^3 Lymphocytes # (Auto) 2.7 1.0-4.0 X 10^3 Monocytes # (Auto) 0.7 0.0-1.0 X 10^3 Eosinophils # (Auto) 0.2 0.0-0.3 10^3/uL Basophils # (Auto) 0.0 0.0-0.1 10^3/uL Prothrombin Time 51.9 *H 12.2-14.7 SEC INR Comment 5.4 *H 0.8-1.4 Activated Partial Thromboplast Time 60 H 24-35 SEC Sodium Level 142 135-145 MMOL/L Potassium Level 4.2 3.6-5.0 MMOL/L Chloride Level 104 98-107 MMOL/L Carbon Dioxide Level 25 21-32 MMOL/L Anion Gap 13 5-14 MMOL/L Blood Urea Nitrogen 10 7-18 MG/DL Creatinine 0.76 0.60-1.30 MG/DL Estimat Glomerular Filtration Rate > 60 BUN/Creatinine Ratio 13 Glucose Level 150 H 70-105 MG/DL Calcium Level 9.5 8.5-10.1 MG/DL Corrected Calcium 9.7 8.5-10.1 MG/DL Magnesium Level 1.8 1.6-2.4 MG/DL Total Bilirubin 0.1 0.1-1.0 MG/DL Aspartate Amino Transf (AST/SGOT) 22 5-34 U/L Alanine Aminotransferase (ALT/SGPT) 26 0-55 U/L Alkaline Phosphatase 150 H 40-136 U/L Myoglobin 31.5 10.0-92.0 NG/ML Troponin I < 0.028 <0.028 NG/ML Total Protein 7.5 6.4-8.2 GM/DL Albumin 3.8 3.2-4.5 GM/DL My Orders Orders - GEORGE, ADOLFO Jama MD Cbc With Automated Diff (03/06/19 14:38) Magnesium (03/06/19 14:38) Chest 1 View, Ap/Pa Only (03/06/19 14:38) Ekg Tracing (03/06/19 14:38) Cardiac Profile 1 (03/06/19 14:38) Comprehensive Metabolic Panel (03/06/19 14:38) Myoglobin Serum (03/06/19 14:38) Protime With Inr (03/06/19 14:38) Partial Thromboplastin Time (03/06/19 14:38) O2 (03/06/19 14:38) Monitor-Rhythm Ecg Trace Only (03/06/19 14:38) Lipid Panel (03/07/19 06:00) Ed Iv/Invasive Line Start (03/06/19 14:38) Diltiazem Injection (Cardizem Injection) (03/06/19 15:00) Ns (Ivpb) (Sodium C... W/Diltiazem Iv Fo (03/06/19 15:00) Medications Given in ED Current Medications Medications Dose Ordered Sig/Ashley Route Start Time Stop Time Status Last Admin Dose Admin Diltiazem HCl 10 mg ONCE ONCE IVP 03/06/19 15:00 03/06/19 15:01 DC 03/06/19 15:02 10 MG Vital Signs/I&O 03/06/19 03/06/19 14:11 15:20 Pulse 130 Resp 18 B/P (MAP) 135/60 (85) 93/47 Pulse Ox 97 O2 Delivery Room Air Blood Pressure Mean: 85 Progress Progress Note : Time: 15:00 Progress Note Patient's EKG demonstrated a ventricular rate of 130. The rhythm was fairly regular. No acute current of injury was noted. Cardizem bolus and drip of 10 mg each was initiated. Laboratory and radiographic evaluation was undertaken. 3:45pm The patient responded well to Cardizem bolus and drip. Her rate decreased to 80. She was in sinus rhythm. I discussed patient's presentation with Dr. Nagy. He was kind enough to consult on the patient. Dr. Rosales was good enough to admit the patient to an observation bed. We'll plan on echo in the morning. Departure Communication (Admissions) Time/Spoke to Admitting Phy: 15:46 Dr. Rosales Time/Spoke to Consulting Phy: 15:46 Dr. Nagy Impression Primary Impression: Atrial fibrillation with RVR Disposition: ADMITTED INPATIENT Condition: Improved Admissions Decision to Admit Reason: Admit from ER (General) Decision to Admit/Date: Mar 06, 2019 Time/Decision to Admit Time: 15:47 Departure-Patient Inst. Referrals: DELIA TRIANA MD (PCP/Family) Primary Care Physician ADOLFO VAZQUEZ MD Mar 06, 2019 15:01
[2019-03-06 15:04] LABS: ALANINE AMINOTRANSFERASE 26 U/L (0-55); ALBUMIN 3.8 GM/DL (3.2-4.5); ALKALINE PHOSPHATASE 150 U/L (40-136); BILIRUBIN,TOTAL 0.1 MG/DL (0.1-1.0); BUN/CREATININE RATIO 13; CALCIUM 9.5 MG/DL (8.5-10.1); CARBON DIOXIDE 25 MMOL/L (21-32); CHLORIDE 104 MMOL/L (98-107); CREATININE SERUM 0.76 MG/DL (0.60-1.30); GFR ESTIMATED > 60; GLUCOSE 150 MG/DL (70-105); MAGNESIUM 1.8 MG/DL (1.6-2.4); POTASSIUM 4.2 MMOL/L (3.6-5.0); SODIUM 142 MMOL/L (135-145); TOTAL PROTEIN 7.5 GM/DL (6.4-8.2)
[2019-03-06 15:08] LABS: INR 5.4 (0.8-1.4); PROTHROMBIN TIME PATIENT 51.9 SEC (12.2-14.7)
--- NOTE | 2019-03-06 15:12 | Diagnostic Imaging Report ---
INDICATION: Atrial fibrillation. TIME OF EXAM: 2:55 p.m. COMPARISON: Correlation is made with prior chest from 01/17/2019. FINDINGS: Heart size is stable. Monitoring device overlies the left heart. No infiltrate or failure is seen. No effusion or pneumothorax is detected. IMPRESSION: No acute cardiopulmonary process is detected. Dictated by: Dictated on workstation # [id number]
--- NOTE | 2019-03-06 15:19 | NUR ---
DR VAZQUEZ NOTIFIED THAT B/P ORDER TO [facility]
--- NOTE | 2019-03-06 15:30 | NUR ---
CONVERTED TO NSR WITH RATE OF 82
--- NOTE | 2019-03-06 15:45 | NUR ---
CARDIZEM DRIP STOPPED. B/P SYSTOLIC 83
[2019-03-06] MEDS ORDERED: NS IV 1000 ML 1,000 ML ONE (17:24)
[2019-03-06] MEDS ORDERED: DILTIAZEM 240 MG (CARDIZEM CD) CAP PO ONE (17:24)
[2019-03-06] MEDS: DILTIAZEM 240 MG (CARDIZEM CD) CAP PO NR ×2 (17:37→20:04)
[2019-03-06] MEDS: NS IV 1000 ML 1,000 ML IV SCH (17:38)
[2019-03-06] MEDS ORDERED: CATHETER FLUSH 10 ML SYR IV PRN (17:45)
--- NOTE | 2019-03-06 20:10 | NUR ---
PT VOICED CONCERNS OVER NOT TAKING HER NORMAL HOME PAIN MEDS AT THIS TIME. DR TELLO CONTACTED ABOUT PTS NORMAL HOME PAIN MEDICATIONS AND ORDERS GIVEN TO RESTART HOME GABAPENTIN AND HYDROCODONE.
--- NOTE | 2019-03-06 20:30 | NUR ---
DR TELLO CONTACTED ABOUT PT BEING AN INSULIN DEPENDENT DIABETIC AND NO ORDERS FOR ACCUCHECK OR INSULIN. ORDERS RECIEVED TO MAKE PT ACHS ACCUCHECK WITH SLIDING SCALE A NOVALOG AT THIS TIME
[2019-03-06] MEDS: GABAPENTIN 400 MG (NEURONTIN) CAP PO SCH (20:48)
[2019-03-06] MEDS: HYDROcodone/APAP 10 MG/325 MG (LORTAB) TAB PO PRN (20:48)
[2019-03-06] MEDS ORDERED: GABAPENTIN 600 MG (NEURONTIN) TAB PO SCH (21:00)
[2019-03-06] MEDS: inSUlin ASPART (NovoLOG) 1 UNIT/0.01 ML (CHARGE PER UNIT) SC SCH (21:19)
[2019-03-07] VITALS (14 sets, daily range): BP systolic 112–177; BP diastolic 57–129
--- NOTE | 2019-03-07 00:04 | NUR ---
PT COMPLAINING OF SEVERE PAIN IN LOWER LEGS AT THIS TIME. DR TELLO CONTACTED AND TELEPHONE ORDERS FOR FENTANYL 50 MCG Q2HR PRN FOR PAIN GIVEN
[2019-03-07] MEDS: fentaNYL INJECTION 100 MCG/2 ML AMP IVP PRN ×8 (00:21→20:51)
[2019-03-07 03:49] LABS: INR 4.7 (0.8-1.4)
[2019-03-07 03:53] LABS: PROTHROMBIN TIME PATIENT 46.1 SEC (12.2-14.7)
[2019-03-07 03:58] LABS: CHOLESTEROL 99 MG/DL (< 200); HDL CHOLESTEROL 39 MG/DL (40-60); TRIGLYCERIDES 77 MG/DL (<150); VLDL CHOLESTEROL 15 MG/DL (5-40)
[2019-03-07] MEDS: inSUlin ASPART (NovoLOG) 1 UNIT/0.01 ML (CHARGE PER UNIT) SC SCH ×4 (05:09→21:53)
[2019-03-07] MEDS: GABAPENTIN 400 MG (NEURONTIN) CAP PO SCH ×4 (08:38→20:50)
[2019-03-07] MEDS ORDERED: ceFAZolin INJECTION 1,000 MG in WATER (STERILE) FOR INJECTION 10 ML IV SCH (11:15)
[2019-03-07] MEDS: ceFAZolin INJECTION 1,000 MG in WATER (STERILE) FOR INJECTION 10 ML IV SCH ×2 (11:54→18:37)
[2019-03-07] MEDS ORDERED: HYDR-3820 PO (12:04)
[2019-03-07] MEDS ORDERED: DILT240C53 PO (12:04)
[2019-03-07] MEDS ORDERED: WARF4TAB70 PO ×2 (12:04)
[2019-03-07] MEDS ORDERED: CYCL10TA9 PO (12:04)
--- NOTE | 2019-03-07 12:14 | NUR ---
SPOKE WITH THE PATIENT ABOUT HER MEDICATIONS. SHE HAS A DETAILED LIST OF HER MEDS WITH HER AND KNOWS EXACTLY HOW SHE TAKES EACH MED. WE WENT OVER HER LIST, I COMPARED IT WITH THE EXT MED HX BUT [facility]. SHE [facility] THE [facility]ES [facility] NOT CHANGED FROM [facility] SINCE HER LAST VISIT. I REQUESTED A MED LIST FROM THE [facility] TO VERIFY HOWEVER IT MAY TAKE A LONG TIME TO RECEIVE SO I WILL REVIEW THE MEDS REPORTED BY THE PATIENT. WHEN I RECEIVE THE FAX FROM THE [facility] I WILL MAKE ANY NECESSARY UPDATES. VANESSA FILLED METOPROLOL ER 100MG #30 FOR 30 DAYS 03-05-19 - PRIOR TO THIS IT WAS FILLED BID. THE PATIENT STATES SHE WAS NOT TOLD THEY WERE ADJUSTING THIS DOSE AND THINKS IT MAY HAVE BEEN FILLED THAT WAY IN ERROR. I LEFT IT ON THE MED REC BID, SHE IS GOING TO DISCUSS WITH HER DR. HER FLEXERIL AND HYDROCODONE ARE WRITTEN PRN HOWEVER SHE STATES SHE TAKES THE FLEXERIL TID SCHEDULED AND HAS BEEN TAKING THE HYDROCODONE FOUR TIMES DAILY, SHE STATS SHE HAS DISCUSSED WITH HER DR. THAT THE QID HYDROCODONE IS NOT CONTROLLING HER PAIN AND IT IS WEARING OFF ABOUT EVERY 5 HOURS. HE PLANS TO PRESCRIBE MORPHINE AFTER THIS SCRIPT OF HYDROCODONE IS GONE. I LEFT THE HYDROCODONE ON THE MED REC AT THIS TIME SINCE THE CHANGE HAS NOT BEEN MADE YET. SHE FILLED WARFARIN 4MG DAILY BUT STATES HE CURRENT DOSE IS 2MG Tue AND 4MG ALL OTHER DAYS OF THE WEEK. SHE TAKES THIS AROUND 4PM WITH HER [facility]. SHE LAST FILLED BREO 01-09-19 - SHE STATES SHE JUST RECENTLY STARTED USING THIS INHALER BECAUSE WHEN SHE WAS IN THE HOSPITAL SHE WAS GIVEN AN ADVAIR, SHE USED THE ADVAIR UP BEFORE IT WENT BAD AND HAS RECENTLY RAN OUT OF IT AND STARTED THE BREO. SHE FILLED LORAZEPAM 2MG #10 01-01-19 FROM ED. SHE STATES SHE WAS GIVEN THIS NEEDED BUT WHEN SHE GETS ANXIETY ATTACKS SHE FORGETS SHE HAS IT SO DOESN'T TAKE IT. SHE FILLED RANITIDINE 150MG #30 12-05-18 BUT STATES SHE ONLY TAKES IT PRN. SHE TAKES THE FOLLOWING OTC: TYLENOL 1000MG DAILY AND 100MG HS PRN OSTEO BI FLEX BID SHE REPORTS SHE GET[facility]; I WILL VERIFY THIS WHEN I RECEIVE THE FAX FROM THEM: CALCIUM 500+D BID ZYRTEC 10MG DAILY VITAMIN D @1200 RESTASIS OU BID IRON 325MG @1800 NOVOLOG 6 UNITS TID AC LANTUS 20 UNITS HS METFORMIN 1000MG BID REFRESH OINTMENT OU HS MTV DAILY FISH OIL TID MIRALAX PRN (USED TO TAKE IT DAILY BUT NOW DOESN'T NEED IT, WONDERS IF IT IS BECAUSE SHE ON ANTIBIOTICS AND HAS NOT BEEN ABLE TO AFFORD CULTURELLE) ARTIFICIAL TEARS OU Q2H (SUPPOSED TO TAKE SCHEDULED BUT FORGETS, SHE TAKES IT PRN) EFFEXOR ER 75MG DAILY THE FOLLOWING MEDICATIONS HAVE BEEN DISCONTINUED: ALBUTEROL INHALER (DUE TO MAKING HER BLOOD PRESSURE OR HEART RATE RISE) ASPIRIN 81MG DAILY (NOW ON WARFARIN) PRADAXA 150MG BID (FAILED, NOW ON WARFARIN) FLONASE (STATES SHE MIGHT USE OCCASIONALLY BUT THOUGHT SHE WAS TOLD IT WOULD RAISE BLOOD PRESSURE AND SHE SHOULD STOP IT) ETODOLAC CULTURELLE (USUALLY TRIES TO TAKE IT WHEN TAKING ANTIBIOTICS BUT HAS NOT BEEN ABLE TO AFFORD IT) Addendum: 03/08/19 at 1011 by ANGELY MATOS histologic aide RECEIVED LIST FROM [facility] AT THIS TIME, THEY FILLED THE FOLLOWIN12-15-18 CALCIUM 500+D #200 BID 12-05-18 ZYRTEC 10MG DAILY #90 03-09-19 VITAMIN D 1000 #200 2 TABS DAILY 02-12-19 RESTASIS OU BID 11-24-18 FERROUS GLUCONATE 324 DAILY #100 (TAKES @1800) 01-02-19 #10 NOVOLOG 6 UNITS TID AC 03-05-19 LANTUS 20 UNITS HS #3 02-11-19 METFORMIN 1000MG BID #180 02-12-19 REFRESH OINTMENT OU HS 09-01-18 MTV DAILY #100 11-26-18 FISH OIL TID #300 01-11-19 #510 MIRALAX PRN 02-12-19 ARTIFICIAL TEARS OU Q2H 03-01-19 EFFEXOR ER 75MG DAILY #30 12-05-18 ASPIRIN EC 81MG #120 01-18-19 FLONASE #1 (STOPPED) 12-15-18 PRADAXA 150MG BID #180 (STOPPED) 12-05-18 ETODOLAC 500MG BID #180 (STOPPED)
--- NOTE | 2019-03-07 12:50 | Consultation-Cardiology ---
HPI-Cardiology Cardiology Consultation Date of Consultation 03/07/19 Date of Admission Time Seen by Provider: 11:00 Indication: Atrial fibrillation HPI 68-year-old lady with history of paroxysmal atrial fibrillation, contacted my office yesterday and was having tachycardia, her loop recorder showed atrial fibrillation with rapid ventricular response. She was instructed to go the emergency room and admitted with atrial fibrillation rapid ventricular response, started on Cardizem and converted to sinus rhythm. She has been having pain and erythema and swelling and local tenderness on her left calf. Denied any chest pain, has been having shortness of breath. No syncope. No paroxysmal nocturnal dyspnea Home Medications & Allergies Allergies: Coded Allergies: amylase (Verified Allergy, Unknown, 08/07/15) black cohosh (Verified Allergy, Unknown, 08/07/15) cellulase (Verified Allergy, Unknown, 08/07/15) glyburide (Verified Allergy, Unknown, 08/07/15) isosorbide (Verified Allergy, Unknown, 08/07/15) lipase (Verified Allergy, Unknown, 08/07/15) protease (Verified Allergy, Unknown, 08/07/15) Home Medication List Reviewed: Yes KSU-Uupmvv-Sdqjur Hx Patient Social History Marital Status: Employed/Student: employed Alcohol Use: Denies Use Recreational Drug Use: No Smoking Status: Former Smoker Former smoker/When Quit: Aug 07, 1980 Type Used: Cigarettes 2nd Hand Smoke Exposure: No Recent Foreign Travel: No Recent Infectious Disease Expo: No Recent Hopitalizations: No Immunizations Up To Date Tetanus Booster (TDap): Unknown Date of Pneumonia Vaccine: Feb 13, 2015 Date of Influenza Vaccine: Feb 13, 2019 Past Medical History discussed below Family Medical History Significant Family History: No Pertinent Family Hx Family History: Cardiovascular disease 19 FATHER 19 MOTHER Colon cancer 19 MOTHER Diabetes mellitus 19 MOTHER G8 BROTHER G8 SISTER Review of Systems-General Review of Systems Constitutional: No chills, No fever; malaise EENTM: see HPI, no symptoms reported Respiratory: no symptoms reported, see HPI, dyspnea on exertion Cardiovascular: see HPI; No chest pain, No edema, No Hx of Intervention; palpitations; No syncope, No vascular heart diseas, No other Gastrointestinal: no symptoms reported, see HPI Genitourinary: no symptoms reported, see HPI Musculoskeletal: No back pain Skin: No change in color, No rash; other (Cellulitis on the left leg) Psychiatric/Neurological: No Symptoms Reported Reviewed Test Results Reviewed Test Results Lab Laboratory Tests Test 03/06/19 14:20 03/07/19 03:05 03/07/19 11:10 Range/Units White Blood Count 7.6 4.3-11.0 10^3/uL Red Blood Count 4.57 4.35-5.85 10^6/uL Hemoglobin 12.8 11.5-16.0 G/DL Hematocrit 40 35-52 % Mean Corpuscular Volume 86 80-99 FL Mean Corpuscular Hemoglobin 28 25-34 PG Mean Corpuscular Hemoglobin Concent 32 32-36 G/DL Red Cell Distribution Width 15.2 H 10.0-14.5 % Platelet Count 358 130-400 10^3/uL Mean Platelet Volume 10.1 7.4-10.4 FL Neutrophils (%) (Auto) 52 42-75 % Lymphocytes (%) (Auto) 36 12-44 % Monocytes (%) (Auto) 9 0-12 % Eosinophils (%) (Auto) 3 0-10 % Basophils (%) (Auto) 0 0-10 % Neutrophils # (Auto) 4.0 1.8-7.8 X 10^3 Lymphocytes # (Auto) 2.7 1.0-4.0 X 10^3 Monocytes # (Auto) 0.7 0.0-1.0 X 10^3 Eosinophils # (Auto) 0.2 0.0-0.3 10^3/uL Basophils # (Auto) 0.0 0.0-0.1 10^3/uL Prothrombin Time 51.9 *H 46.1 *H 12.2-14.7 SEC INR Comment 5.4 *H 4.7 H 0.8-1.4 Activated Partial Thromboplast Time 60 H 24-35 SEC Sodium Level 142 135-145 MMOL/L Potassium Level 4.2 3.6-5.0 MMOL/L Chloride Level 104 98-107 MMOL/L Carbon Dioxide Level 25 21-32 MMOL/L Anion Gap 13 5-14 MMOL/L Blood Urea Nitrogen 10 7-18 MG/DL Creatinine 0.76 0.60-1.30 MG/DL Estimat Glomerular Filtration Rate > 60 BUN/Creatinine Ratio 13 Glucose Level 150 H 70-105 MG/DL Calcium Level 9.5 8.5-10.1 MG/DL Corrected Calcium 9.7 8.5-10.1 MG/DL Magnesium Level 1.8 1.6-2.4 MG/DL Total Bilirubin 0.1 0.1-1.0 MG/DL Aspartate Amino Transf (AST/SGOT) 22 5-34 U/L Alanine Aminotransferase (ALT/SGPT) 26 0-55 U/L Alkaline Phosphatase 150 H 40-136 U/L Myoglobin 31.5 10.0-92.0 NG/ML Troponin I < 0.028 <0.028 NG/ML Total Protein 7.5 6.4-8.2 GM/DL Albumin 3.8 3.2-4.5 GM/DL Triglycerides Level 77 <150 MG/DL Cholesterol Level 99 < 200 MG/DL LDL Cholesterol Direct 47 1-129 MG/DL VLDL Cholesterol 15 5-40 MG/DL HDL Cholesterol 39 L 40-60 MG/DL Lactic Acid Level 1.39 0.50-2.00 MMOL/L Physical Exam Physical Exam Vital Signs Vital Signs - First Documented 03/06/19 03/06/19 14:11 17:27 Temp 35.8 Pulse 130 Resp 18 B/P (MAP) 135/60 (85) Pulse Ox 97 O2 Delivery Room Air Capillary Refill : Less Than 3 Seconds Height, Weight, BMI Height: 5'10.50" Weight: 302lbs. 0.0oz. 136.041646km; 41.15 BMI Method:Stated General Appearance: WD/WN, Mild Distress Eyes: Bilateral Eye Normal Inspection, Bilateral Eye PERRL, Bilateral Eye EOMI HEENT: PERRL/EOMI, TMs Normal, Normal ENT Inspection, Pharynx Normal Neck: Full Range of Motion, Normal Inspection, Non Tender, Supple Respiratory: Chest Non Tender, Lungs Clear, Normal Breath Sounds, No Accessory Muscle Use, No Respiratory Distress Cardiovascular: Regular Rate, Rhythm, No Gallop, No JVD, No Murmur Gastrointestinal: Normal Bowel Sounds, No Organomegaly, No Pulsatile Mass Rectal: Normal Exam, Normal Rectal Tone Genital/Rectal: Normal Genital Exam Back: Normal Inspection, No CVA Tenderness, No Vertebral Tenderness Extremity: Normal Inspection, Normal Range of Motion, No Calf Tenderness, Other (Cellulitis on the left leg) Neurologic/Psychiatric: Alert, Oriented x3, No Motor/Sensory Deficits, Normal Mood/Affect Skin: Normal Color, Warm/Dry Lymphatic: No Adenopathy A/P-Cardiology Admission Diagnosis Paroxysmal atrial fibrillation Coronary artery disease Cellulitis Hypertension Hyperlipidemia Assessment/Plan Paroxysmal atrial fibrillation, admitted with atrial fibrillation rapid ventricular response, has been having multiple episodes. Currently back to sinus rhythm. Continue to monitor. Restart home medication and I am adding Multaq Cellulitis of the left leg, septic workup initiated and started on Ceftin, disc ussed with Dr. Rosales Coronary artery disease, underwent cardiac catheterization November 22, 2018 revealing severe mid LAD stenosis of 80-90 percent, very tortuous LAD with difficult visualization. Underwent stent placement using resolute integrity 2.5 x 26 mm stent. Maintained on Effient History of DVT, first episode occurred about 30 years ago, second episode occurred in July 2015, on the left side while receiving physical therapy for back injury. Maintained on Coumadin Hypertension, restart home medication monitor blood pressure Hyperlipidemia, monitor lipids Echocardiogram done on January 11, 2018 showing normal left ventricle size and ejection fraction 55-64 percent, mildly dilated left atrium, mild MR, PA 35 mmHg, I will repeat 2-D echocardiogram Mild obstructive sleep apnea, followed and managed by Dr. Colmenares Diabetes mellitus, followed and managed by primary care physician. Back pain and joint pain. History of Charcot joint. BMI is 42, we discussed weight loss and exercise. Clinical Quality Measures DVT/VTE Risk/Contraindication: Risk Factor Score Per Nursin RFS Level Per Nursing on Admit: 4+=Very High CHARLY JOSE MD Mar 07, 2019 12:49
[2019-03-07] MEDS: NS IV 1000 ML 1,000 ML IV SCH (13:19)
--- NOTE | 2019-03-07 13:23 | History & Physical-Hospitalist ---
OSCAR JORDAN MED STUDENT 03/07/19 1323: History of Present Illness HPI/Chief Complaint CC: Palpitations Ms. Paez is in the ICU today due to palpitations that began yesterday. Describes her palpitations as a rapid heart rate, feeling as if her heart is in her throat, and as a squeezing CP across her chest that also causes SOB. She associates these symptoms with being in afib. She went to the ER yesterday evening and was found to be in Afib RVR, and was converted using Cardizem. Latest labs show PT 46.1, INR 4.7, glucose 150, otherwise normal CBC and CMP. She had been in [facility] in January with Afib, failed multiple attempted cardioversions with Cardizem and could not undergo an electrical cardioversion due to clot in right atrium on PHILIP. Eventually converted using Cardizem, and was discharged on oral Cardizem. Reports being in rehab one week, then discharged home on 02/09 with home health and PT. When seen today she reports feeling fine, no longer in afib. Her caregiver was present, who sees her every day. HR 82, RR 9, BP 152/80 Only complaint was of erythema and swelling of her left leg. The leg is warm to the touch where the erythema and swelling is, it is located below the knee, mostly anteromedial but crosses garcía closer to foot, and is spread over on anterolateral side of leg as well. Most severe on anteromedial leg. Describes feeling pain and itching in that area. Concerned due to history of DVT s/p ACL reconstruction in that leg, reports having DVT in that leg in 2016 as well. Since her last stay in the hospital, has had PT to help with strength with walking, but has been dependent on her walker. Prior to last hospitalization she used arm crutches outside of her home, and needed no assistance in her home. Source: patient Exam Limitations: no limitations Date Seen 03/07/19 Time Seen by a Provider: 08:30 Attending Physician Tia Tello David F MD Referring Physician Date of Admission Mar 06, 2019 at 15:40 Home Medications & Allergies Home Medications Reviewed patient Home Medication Reconciliation performed by pharmacy medication reconciliations community development technician and/or nursing. Patients Allergies have been reviewed. Allergies Allergies Coded Allergies amylase (Verified Allergy, Unknown, 08/07/15) black cohosh (Verified Allergy, Unknown, 08/07/15) cellulase (Verified Allergy, Unknown, 08/07/15) glyburide (Verified Allergy, Unknown, 08/07/15) isosorbide (Verified Allergy, Unknown, 08/07/15) lipase (Verified Allergy, Unknown, 08/07/15) protease (Verified Allergy, Unknown, 08/07/15) Past Qfjcdzu-Aekwvw-Tmbdqh Hx Past Med/Social Hx: Reviewed Nursing Past Med/Soc Hx Patient Social History Marrital Status: Employed/Student: retired Alcohol Use: Denies Use Recreational Drug Use: No Smoking Status: Former Smoker (2.5 ppd for 10 years, stopped in ) Former Smoker, Quit: May 18, 1980 Type Used: Cigarettes 2nd Hand Smoke Exposure: No Recent Foreign Travel: No Contact w/other who traveled: No Recent Hopitalizations: No Recent Infectious Disease Expo: No Immunizations Up To Date Tetanus Booster (TDap): Unknown Pediatric: Yes Date of Pneumonia Vaccine: Feb 13, 2015 Date of Influenza Vaccine: Feb 13, 2019 Seasonal Allergies Seasonal Allergies: No Past Medical History Surgeries: Cardiac, Coronary Stent, Eye Surgery, Orthopedic Respiratory: Asthma Currently Using CPAP: Yes Currently Using BIPAP: No Cardiac: Atrial Fibrillation, Chronic Edema/Swelling, Coronary Artery Disease, Deep Vein Thrombosis, Heart Attack, High Cholesterol, Hypertension Neurological: Neuropathy 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: Yes Sexually Transmitted Disease: No HIV/AIDS: No Menopausal Genitourinary: UTI-Chronic Gastrointestinal: Gastroesophageal Reflux, Chronic Constipation Musculoskeletal: Degenerate Disk Disease, Arthritis, Chronic Back Pain Endocrine: Diabetes, Insulin dep HEENT: Cataract Loss of Vision: Bilateral Hearing Impairment: Denies Cancer: Uterine (reports precancerous or early stage uterine cancer) Psychosocial: Anxiety, Depression History of Blood Disorders: No Adverse Reaction to Blood Funez: No Family History Cardiovascular disease 19 FATHER 19 MOTHER Colon cancer 19 FATHER 19 MOTHER Diabetes mellitus 19 MOTHER G8 BROTHER G8 SISTER Myocardial infarction 19 FATHER No Pertinent Family Hx Review of Systems Constitutional: No chills, No fever EENTM: No nose congestion, No throat pain (will have some mornings recently) Respiratory: No cough; short of breath (with afib) Cardiovascular: chest pain (with afib), palpitations (afib) Gastrointestinal: No abdominal pain, No constipation, No diarrhea, No melena, No nausea Genitourinary: No dysuria, No hematuria; incontinence (urge) Musculoskeletal: joint pain Psychiatric/Neurological: Headache, Numbness (fingers and toes), Paresthesia (legs, neuropathy), Tingling (legs, neuropathy), Tremors (benign essential tremor) Physical Exam Physical Exam Vital Signs Vital Signs - First Documented 03/06/19 03/06/19 14:11 17:27 Temp 35.8 Pulse 130 Resp 18 B/P (MAP) 135/60 (85) Pulse Ox 97 O2 Delivery Room Air Capillary Refill : Less Than 3 Seconds Height, Weight, BMI Height: 5'10.50" Weight: 302lbs. 0.0oz. [id number]; 41.15 BMI Method:Stated General Appearance: No Apparent Distress, Obese Neck: Normal Inspection, Non Tender, Supple Respiratory: Lungs Clear, Normal Breath Sounds, No Accessory Muscle Use, No Respiratory Distress Cardiovascular: Regular Rate, Rhythm, No Gallop, No Murmur, Normal Peripheral Pulses Gastrointestinal: Normal Bowel Sounds, Non Tender Extremity: Normal Capillary Refill, No Calf Tenderness, Pedal Edema Neurologic/Psychiatric: Alert, Oriented x3, Normal Mood/Affect Skin: Erythema (L leg) Lymphatic: No Adenopathy Results Results/Procedures Labs Laboratory Tests 03/06/19 14:20 Patient resulted labs reviewed. Assessment/Plan Admission Diagnosis Assessment: 1. Afib RVR s/p conversion w/ Cardizem 2. L leg erythema 3. DM w/ neuropathy 4. Asthma 5. JENNA 6. Overactive bladder, chronic UTI 7. Charcot-joint 8. OA 9. hx of DVT Plan: 1. continue cardizem 240 mg daily po, monitor heart rate, rhythm 2. continue cefazolin 1000 mg/sterile water 10ml @ 200mls/hr q8h bid 3. continue home medications for managing chronic conditions 4. continue neuropathic pain management 5. monitor PT/INR, continue anticoagulation Clinical Quality Measures DVT/VTE Risk/Contraindication: Risk Factor Score Per Nursin RFS Level Per Nursing on Admit: 4+=Very High TIA TELLO DO 03/07/192036: History of Present Illness HPI/Chief Complaint CC: AF with RVR HPI: This is a 68yoWF known to me from prior admission when she underwent cardiac stent placement with a Charcot feet chronically disabled who presented with AF with RVR after two weeks stay at [facility] refractory to Cardizem but she did convert to normal sinus rhythm we did go ahead and start Ancef for left lower extremity cellulitis and we have restarted all of her home medications. Source: patient Exam Limitations: no limitations Past Zajrmlm-Jqhopp-Lconvu Hx Past Med/Social Hx: Reviewed Nursing Past Med/Soc Hx, Reviewed and Corrections made Patient Social History Marrital Status: single Family History Cardiovascular disease 19 FATHER 19 MOTHER Colon cancer 19 FATHER 19 MOTHER Diabetes mellitus 19 MOTHER G8 BROTHER G8 SISTER Myocardial infarction 19 FATHER Review of Systems Cardiovascular: palpitations (afib) Musculoskeletal: other (left leg pain) Physical Exam Physical Exam General Appearance: No Apparent Distress, WD/WN, Chronically ill Respiratory: Lungs Clear Cardiovascular: Regular Rate, Rhythm Extremity: Other (left leg cellulitis) Neurologic/Psychiatric: Alert, Oriented x3, No Motor/Sensory Deficits, Normal Mood/Affect Assessment/Plan Admission Diagnosis Ancef Cardiology management Admission Status: Observation Diagnosis/Problems Diagnosis/Problems (1) Atrial fibrillation with RVR Status: Acute (2) Atypical chest pain Status: Acute (3) CAD (coronary artery disease) (4) Chronic mental illness Status: Chronic (5) JENNA (obstructive sleep apnea) Status: Chronic (6) Angina pectoris Status: Chronic (7) Stented coronary artery Status: Acute Supervisory-Addendum Brief Verification & Attestation Participated in pt care: history, MDM, physical Personally performed: exam, history, MDM, supervision of care Care discussed with: Medical Student Procedures: n/a Results interpretation: Verified all documentation Verification and Attestation of Medical Student E/M Service A medical student performed and documented this service in my presence. I reviewed and verified all information documented by the medical student and made modifications to such information, when appropriate. I personally performed the physical exam and medical decision making. Tia Tello, Mar 07, 2019,20:37 OSCAR JORDAN MED STUDENT Mar 07, 2019 13:23 TIA TELLO DO Mar 07, 2019 20:37
[2019-03-07] MEDS: DRONEDARONE TABLET 400 MG TABLET PO SCH ×2 (15:23→20:49)
[2019-03-07] MEDS: metFORMIN 500 MG (GLUCOPHAGE) TAB PO SCH (17:23)
[2019-03-07] MEDS: HYDROcodone/APAP 10 MG/325 MG (LORTAB) TAB PO PRN (17:23)
[2019-03-07] MEDS: meTOprolol SUCCINATE 100 MG (TOPROL XL) TAB PO SCH (20:50)
[2019-03-08] VITALS: BP 189/102
[2019-03-08 01:00] VITALS: BP 125/81
[2019-03-08] MEDS: ceFAZolin INJECTION 1,000 MG in WATER (STERILE) FOR INJECTION 10 ML IV SCH ×2 (03:13→10:43)
[2019-03-08 04:00] VITALS: BP 140/76
[2019-03-08 04:09] LABS: INR 2.8 (0.8-1.4); PROTHROMBIN TIME PATIENT 30.4 SEC (12.2-14.7)
[2019-03-08] MEDS: inSUlin ASPART (NovoLOG) 1 UNIT/0.01 ML (CHARGE PER UNIT) SC SCH ×2 (06:30→12:18)
[2019-03-08] MEDS: DRONEDARONE TABLET 400 MG TABLET PO SCH (07:43)
[2019-03-08] MEDS: GABAPENTIN 400 MG (NEURONTIN) CAP PO SCH (07:44)
[2019-03-08] MEDS: meTOprolol SUCCINATE 100 MG (TOPROL XL) TAB PO SCH (07:44)
[2019-03-08] MEDS: metFORMIN 500 MG (GLUCOPHAGE) TAB PO SCH (07:44)
[2019-03-08 08:00] VITALS: BP 167/94
--- NOTE | 2019-03-08 08:03 | Cardiology Progress Note ---
Subjective Date Seen by Provider: Mar 08, 2019 Time Seen by Provider: 08:02 Subjective/Events-last exam Patient is sitting in a chair, feeling well, still having swelling in her left leg with mild erythema Review of Systems General: No Chills, No Night Sweats, No Fatigue, No Malaise, No Appetite, No Other HEENT: No Head Aches, No Visual Changes, No Eye Pain, No Ear Pain, No Dys phasia, No Sinus Congestion, No Post Nasal Drip, No Sore Throat, No Other Pulmonary: No Dyspnea, No Cough, No Pleuritic Chest Pain, No Other Cardiovascular: No: Chest Pain, Palpitations, Orthopnea, Paroxysmal Noc. Dyspnea, Edema, Lt Headedness, Other Focused Exam Lactate Level 03/07/19 11:10: Lactic Acid Level 1.39 Objective-Cardiology Exam Last Set of Vital Signs Vital Signs 03/08/19 03/08/19 04:00 07:00 Pulse 85 Resp 15 B/P (MAP) 140/76 (97) Pulse Ox 100 O2 Delivery Room Air Capillary Refill : Less Than 3 Seconds I&O Intake and Output 03/08/19 00:00 Intake Total 2460 ml Output Total 1850 ml Balance 610 ml Intake Oral 1440 ml IV Total 1020 ml Output Urine Total 1850 ml General: Alert, Oriented X3, Cooperative HEENT: Atraumatic, PERRLA Neck: Supple, No JVD, No Thyromegaly Lungs: Clear to Auscultation, Normal Air Movement Heart: Regular Rate, Normal S1, Normal S2, No Murmurs Abdomen: Normal Bowel Sounds, Soft, No Tenderness, No Hepatosplenomegaly, No Masses Extremities: No Clubbing, No Cyanosis, Normal Pulses, No Tenderness/Swelling, Other (Swelling and erythema on the left calf) Skin: No Rashes, No Breakdown, No Significant Lesion Neuro: Normal Gait, Normal Speech, Strength at 5/5 X4 Ext, Normal Tone, Sensation Intact Psych/Mental Status: Mental Status NL, Mood NL A/P-Cardiology Admission Diagnosis Paroxysmal atrial fibrillation Coronary artery disease Cellulitis Hypertension Hyperlipidemia Assessment/Plan Paroxysmal atrial fibrillation, back to sinus rhythm, continue on current medication, okay for discharge from cardiology standpoint and follow up as an outpatient Cellulitis of the left leg, septic workup initiated and started on Ceftin, managed by primary care team Coronary artery disease, underwent cardiac catheterization November 22, 2018 reveali ng severe mid LAD stenosis of 80-90 percent, very tortuous LAD with difficult visualization. Underwent stent placement using resolute integrity 2.5 x 26 mm stent. Maintained on Effient History of DVT, first episode occurred about 30 years ago, second episode occurred in July 2015, on the left side while receiving physical therapy for back injury. Maintained on Coumadin Hypertension, restart home medication monitor blood pressure Hyperlipidemia, monitor lipids Echocardiogram done on January 11, 2018 showing normal left ventricle size and ejection fraction 55-64 percent, mildly dilated left atrium, mild MR, PA 35 mmHg, I will repeat 2-D echocardiogram Mild obstructive sleep apnea, followed and managed by Dr. Colmenares Diabetes mellitus, followed and managed by primary care physician. Back pain and joint pain. History of Charcot joint. BMI is 42, we discussed weight loss and exercise. Clinical Quality Measures DVT/VTE Risk/Contraindication: Risk Factor Score Per Nursin RFS Level Per Nursing on Admit: 4+=Very High CHARLY JOSE MD Mar 08, 2019 08:03
[2019-03-08] MEDS: fentaNYL INJECTION 100 MCG/2 ML AMP IVP PRN (08:50)
[2019-03-08] MEDS ORDERED: DILTIAZEM 240 MG (CARDIZEM CD) CAP PO SCH (09:00)
[2019-03-08] MEDS ORDERED: FAMOTIDINE 20 MG (PEPCID) TABLET PO PRN (09:00)
[2019-03-08] MEDS ORDERED: PRASUGREL 10 MG (EFFIENT) TABLET PO SCH (09:00)
[2019-03-08] MEDS ORDERED: lisINopril 20 MG (PRINIVIL) TABLET PO SCH (09:00)
[2019-03-08] MEDS ORDERED: CEPH-507 PO (09:31)
[2019-03-08] MEDS ORDERED: TR1C15 TP (09:31)
[2019-03-08] MEDS ORDERED: DRON400T2 PO (09:41)
[2019-03-08] MEDS: NS IV 1000 ML 1,000 ML IV SCH (10:29)
--- NOTE | 2019-03-08 10:50 | Discharge Summary ---
OSCAR JORDAN MED STUDENT 03/08/19 1050: Diagnosis/Chief Complaint Date of Admission Mar 06, 2019 at 15:40 Date of Discharge Discharge Date: Mar 08, 2019 Admission Diagnosis Ancef Cardiology management Primary Care Martin Goode MD Discharge Diagnosis Atrial fibrillation s/p conversion to sinus rhythm, cellulitis (1) Atrial fibrillation with RVR Status: Acute (2) Atypical chest pain Status: Acute (3) CAD (coronary artery disease) (4) Chronic mental illness Status: Chronic (5) JENNA (obstructive sleep apnea) Status: Chronic (6) Angina pectoris Status: Chronic (7) Stented coronary artery Status: Acute Discharge Summary Discharge Physical Exam Allergies: Coded Allergies: amylase (Verified Allergy, Unknown, 08/07/15) black cohosh (Verified Allergy, Unknown, 08/07/15) cellulase (Verified Allergy, Unknown, 08/07/15) glyburide (Verified Allergy, Unknown, 08/07/15) isosorbide (Verified Allergy, Unknown, 08/07/15) lipase (Verified Allergy, Unknown, 08/07/15) protease (Verified Allergy, Unknown, 08/07/15) Vitals & I&Os Vital Signs Date Time Temp Pulse Resp B/P (MAP) Pulse Ox O2 Delivery O2 Flow Rate FiO2 03/08/19 08:00 85 20 167/94 (118) Room Air 03/08/19 04:00 100 03/07/19 20:00 36.4 General Appearance: No Apparent Distress, Obese Respiratory: Lungs Clear, Normal Breath Sounds, No Accessory Muscle Use, No Respiratory Distress Cardiovascular: Regular Rate, Rhythm, No Gallop, No Murmur, Normal Peripheral Pulses Gastrointestinal: Abnormal Bowel Sounds (hypoactive) Extremity: No Calf Tenderness, Pedal Edema (greater on left), Swelling (left leg) Skin: Erythema (Left leg) Neurologic/Psychiatric: Alert, Oriented x3, Normal Mood/Affect Hospital Course Ms. Paez arrived in the ER on 03/06 complaining of palpitations she associates with afib. She had been at [facility] in [place] in January with afib where she was not able to undergo electrical cardioverson due to clot in RA on PHILIP, converted sinus with Cardizem after several failed attempts. Converted to sinus on 03/06 using Cardizem. While in the ICU she developed erythema and swelling in her left leg that she reported was painful and pruritic, suspicious for cellulitis and venous stasis, and was started on Anceph. She has remained in sinus rhythm through today, will be discharged on Multaq and Cardizem, as well as oral antibiotic for cellulitis. Vitals this morning were HR 87, RR 15, and BP 140/76, labs show PT down to 30.4 and INR down to 2.8. Labs (last 24 hrs) Laboratory Tests 03/07/19 11:10: Lactic Acid Level 1.39 03/08/19 03:30: Prothrombin Time 30.4H, INR Comment 2.8H Patient resulted labs reviewed. Pending Labs Laboratory Tests 03/08/19 03:30: Prothrombin Time 30.4, INR Comment 2.8 Discharge Home Medications: Active Scripts Active Multaq (Dronedarone HCl) 400 Mg Tablet 400 Mg PO BID Triamcinolone Acetonide 0.1% Cream (Triamcinolone Acet) 15 Gm Cr 15 Gm TP BID Keflex (Cephalexin) 500 Mg Capsule 500 Mg PO TID Reported Warfarin Sodium 4 Mg Tablet 2 Mg PO MOWEFR@1600 Warfarin Sodium 4 Mg Tablet 4 Mg PO SUTUTHSA@1600 Hydrocodon-Acetaminophn 10-325 (Hydrocodone/Acetaminophen) 1 Each Tablet 1 Tab PO Q6H Cyclobenzaprine HCl 10 Mg Tablet 10 Mg PO TID Cartia Xt (Diltiazem HCl) 240 Mg Cap.er.24h 240 Mg PO DAILY Restasis (Cyclosporine) 1 Each Droperette 1 Drop OU BID Metformin HCl 1,000 Mg Tablet 1,000 Mg PO BID Atorvastatin Calcium 80 Mg Tablet 80 Mg PO HS Prasugrel HCl 10 Mg Tablet 10 Mg PO DAILY Miralax (Polyethylene Glycol 3350) 17 Gm Powd.pack 17 Gm PO DAILY PRN Ferrous Sulfate 325 Mg Tablet 325 Mg PO 1800 Zyrtec (Cetirizine HCl) 10 Mg Tablet 10 Mg PO DAILY Venlafaxine HCl ER (Venlafaxine HCl) 75 Mg Cap.er.24h 75 Mg PO DAILY Tylenol Extra Strength (Acetaminophen) 500 Mg Tablet 1,000 Mg PO DAILY PRN TAKES 2 (500MG) TABLETS; ALWAYS TAKES 2 IN THE MORNING AND OCCASIONALLY WILL TAKE ANOTHER DOSE LATER IN THE DAY NEEDED Fish Oil 1,000 mg Capsule (Webster 3 Polyunsat Fatty Acids) 1,000 Mg Cap 1,000 Mg PO TID Gabapentin 800 Mg Tablet 800 Mg PO QID Vesicare (Solifenacin Succinate) 10 Mg Tablet 10 Mg PO 1600 Mysoline (Primidone) 250 Mg Tablet 250 Mg PO TID Breo Ellipta 200-25 Mcg INH (Fluticasone/Vilanterol) 1 Each Blst.w.dev 1 Puff INH DAILY Lisinopril 20 Mg Tablet 20 Mg PO DAILY Imipramine HCl 50 Mg Tablet 50 Mg PO HS Nitrofurantoin (Nitrofurantoin Macrocrystal) 100 Mg Capsule 100 Mg PO 1800 Metoprolol Succinate 100 Mg Tab.er.24h 100 Mg PO BID Myrbetriq (Mirabegron) 50 Mg Tab.er.24h 50 Mg PO DAILY Vitamin D3 (Cholecalciferol (Vitamin D3)) 1,000 Unit Capsule 2,000 Unit PO 1200 Osteo Bi-Flex Caplet (Glucosamine/D3/Boswellia Nellie) 1 Each Tablet 1 Tab PO BID Multivitamins with Minerals (Multivitamin with Minerals) 1 Each Tablet 1 Tab PO DAILY Lantus (Insulin Glargine,Hum.rec.anlog) 100 Unit/1 Ml Vial 20 Unit SQ HS Tylenol Extra Strength (Acetaminophen) 500 Mg Tablet 1,000 Mg PO DAILY TAKES 2 (500MG) TABLETS Calcium 500 + Vit D Caplet (Calcium Carbonate/Vitamin D3) 1 Each Tablet 1 Tab PO BID Novolog Flexpen (Insulin Aspart) 300 Units/3 Ml Solution 6 Units SQ TIDAC Ranitidine HCl 150 Mg Tablet 150 Mg PO DAILY PRN Refresh Lacri-Lube Ointment (Mineral Oil/Petrolatum,White) 3.5 Gm Oint...g. OU HS Artificial Tears Drops (Polyvinyl Alcohol/Povidone) 15 Ml Drops 2 Drops OU Q2H PRN Instructions to patient/family Please see electronic discharge instructions given to patient. Clinical Quality Measures DVT/VTE Risk/Contraindication: Risk Factor Score Per Nursin RFS Level Per Nursing on Admit: 4+=Very High TIA TELLO DO 03/08/192105: Diagnosis/Chief Complaint Discharge Diagnosis (1) Atrial fibrillation with RVR Status: Acute (2) CAD (coronary artery disease) (3) Angina pectoris Status: Chronic (4) JENNA (obstructive sleep apnea) Status: Chronic (5) Chronic mental illness Status: Chronic Discharge Summary Discharge Physical Exam Allergies: Coded Allergies: amylase (Verified Allergy, Unknown, 08/07/15) black cohosh (Verified Allergy, Unknown, 08/07/15) cellulase (Verified Allergy, Unknown, 08/07/15) glyburide (Verified Allergy, Unknown, 08/07/15) isosorbide (Verified Allergy, Unknown, 08/07/15) lipase (Verified Allergy, Unknown, 08/07/15) protease (Verified Allergy, Unknown, 08/07/15) General Appearance: No Apparent Distress, WD/WN, Chronically ill Respiratory: Lungs Clear Cardiovascular: Regular Rate, Rhythm Skin: Rash (left lower leg cellulitis improved) Neurologic/Psychiatric: Alert, Oriented x3, No Motor/Sensory Deficits, Normal Mood/Affect Hospital Course Was the Problem List Reviewed?: Yes Hospital course: Pt had an uneventful hospital course, she was admitted for A- FIB with RVR , cardiology managed that with good results. Left lower extremity cellulitis occurred Ancef was given transition to Keflex and Kenalog cream for Venous Stasis dermatitis due to chronic lower extremity edema. Pt was stable at discharge and will have close follow-up at [facility]. Discussion & Recommendations Discharge Planning: <30 minutes discharge planning Supervisory-Addendum Brief Verification & Attestation Participated in pt care: history, MDM, physical Personally performed: exam, history, MDM, supervision of care Care discussed with: Medical Student Procedures: n/a Results interpretation: Verified all documentation Verification and Attestation of Medical Student E/M Service A medical student performed and documented this service in my presence. I reviewed and verified all information documented by the medical student and made modifications to such information, when appropriate. I personally performed the physical exam and medical decision making. Tia Tello, Mar 08, 2019,21:07 OSCAR JORDAN MED STUDENT Mar 08, 2019 10:50 TIA TELLO DO Mar 08, 2019 21:06
[2019-03-08 12:00] VITALS: BP 140/82
[2019-03-08] MEDS: HYDROcodone/APAP 10 MG/325 MG (LORTAB) TAB PO PRN (12:19)
== END 2019-03-08 12:25 | disposition home or self-care (01) ==
LOC: EDUNIT# 14:11 → ER 14:13 → ICU 15:40
PROVIDERS: ADMIT Internal Medicine; ATTEND Internal Medicine
DX: I48.91 Unspecified atrial fibrillation (principal); I10 Essential (primary) hypertension; I25.10 Atherosclerotic heart disease of native coronary artery without angina pectoris; I82.409 Acute embolism and thrombosis of unspecified deep veins of unspecified lower extremity; J45.909 Unspecified asthma, uncomplicated; E78.00 Pure hypercholesterolemia, unspecified; E11.40 Type 2 diabetes mellitus with diabetic neuropathy, unspecified; G47.30 Sleep apnea, unspecified; G89.29 Other chronic pain; N39.0 Urinary tract infection, site not specified; K21.9 Gastro-esophageal reflux disease without esophagitis; K59.09 Other constipation; M54.9 Dorsalgia, unspecified; M19.90 Unspecified osteoarthritis, unspecified site; F41.8 Other specified anxiety disorders; Z79.82 Long term (current) use of aspirin; Z79.4 Long term (current) use of insulin; Z87.891 Personal history of nicotine dependence; Z95.1 Presence of aortocoronary bypass graft; Z88.8 Allergy status to other drugs, medicaments and biological substances; Z86.79 Personal history of other diseases of the circulatory system; Z82.49 Family history of ischemic heart disease and other diseases of the circulatory system; Z83.3 Family history of diabetes mellitus; Z80.0 Family history of malignant neoplasm of digestive organs
CPT/HCPCS: 36415; 71045; 80053; 80061; 83605; 83735; 83874; 84484; 85025; 85610; 85730; 87040; 93005; 93041; 93306; 96365

== ENCOUNTER 2019-03-10 18:00 | Emergency (ER) | payer MEDICARE, MEDICAID ==
[~2019-03-10] VITALS: Ht 177 cm; Wt 128.0 kg
[~2019-03-10 18:00] MED LIST changes: +CEPH-507 PO; +CYCL10TA9 PO; +DILT240C53 PO; +DRON400T2 PO; +HYDR-3820 PO; +TR1C15 TP; +WARF4TAB70 PO
[2019-03-10 18:29] LABS: BASOPHILS % (AUTO) 0 % (0-10); EOSINOPHILS # (AUTO) 0.3 10^3/uL (0.0-0.3); EOSINOPHILS % (AUTO) 3 % (0-10); HEMATOCRIT 38 % (35-52); HEMOGLOBIN 12.3 G/DL (11.5-16.0); LYMPHOCYTES # (AUTO) 2.7 X 10^3 (1.0-4.0); LYMPHOCYTES % (AUTO) 27 % (12-44); MEAN CORPUSCULAR HEMOGLOBIN 29 PG (25-34); MEAN CORPUSCULAR HGB CONC 33 G/DL (32-36); MEAN CORPUSCULAR VOLUME 87 FL (80-99); MEAN PLATELET VOLUME 10.4 FL (7.4-10.4); MONOCYTES # (AUTO) 0.9 X 10^3 (0.0-1.0); MONOCYTES % (AUTO) 9 % (0-12); NEUTROPHILS # (AUTO) 6.3 X 10^3 (1.8-7.8); NEUTROPHILS % (AUTO) 61 % (42-75); PLATELET COUNT 352 10^3/uL (130-400); RED CELL DISTRIBUTION WIDTH 15.1 % (10.0-14.5); WHITE BLOOD COUNT 10.3 10^3/uL (4.3-11.0)
[2019-03-10] MEDS ORDERED: ORPHENADRINE 60 MG/2 ML (NORFLEX) AMP IM ONE (18:30)
[2019-03-10 18:34] LABS: INR 2.2 (0.8-1.4); PROTHROMBIN TIME PATIENT 25.7 SEC (12.2-14.7)
[2019-03-10 18:41] LABS: ALANINE AMINOTRANSFERASE 20 U/L (0-55); ALBUMIN 3.9 GM/DL (3.2-4.5); ALKALINE PHOSPHATASE 145 U/L (40-136); BILIRUBIN,TOTAL 0.2 MG/DL (0.1-1.0); BUN/CREATININE RATIO 14; CALCIUM 9.8 MG/DL (8.5-10.1); CARBON DIOXIDE 20 MMOL/L (21-32); CHLORIDE 101 MMOL/L (98-107); CREATININE SERUM 0.98 MG/DL (0.60-1.30); GFR ESTIMATED 57; GLUCOSE 125 MG/DL (70-105); MAGNESIUM 1.6 MG/DL (1.6-2.4); POTASSIUM 4.3 MMOL/L (3.6-5.0); SODIUM 138 MMOL/L (135-145); TOTAL PROTEIN 7.5 GM/DL (6.4-8.2)
--- NOTE | 2019-03-10 18:50 | ED Neck-Back Pain/Injury ---
General Chief Complaint: Head/Cervical Problems Stated Complaint: NECK/BACK PAIN Nursing Triage Note: ARRIVED VIA EMS FROM HOME. COMPLAINS OF PAIN RADIATING ACROSS HER SHOULDERS AND INTO NECK THAT STARTED SUDDENLY. PT STATES THE PAIN IS NOW IN HER NECK. STATES SHE IS ALSO SOA AND WAS DIAPHORETIC. PT WAS RECENTLY DISCHARGED FROM THE HOSPITAL. Nursing Sepsis Screen: No Definite Risk Source of Information: Patient Exam Limitations: No Limitations History of Present Illness Date Seen by Provider: Mar 10, 2019 Time Seen by Provider: 18:06 Initial Comments This 68-year-old woman presents to the emergency room with fairly sudden onset of severe pain in the posterior neck that radiated into the shoulders. She had some mild associated chest discomfort, shortness of breath, and sweating. She has had recent history of cellulitis in the left lower extremity and also had coronary stenting performed in November. She has paroxysmal atrial fibrillation. She is on warfarin and Effient. She is also currently undergoing antibiotic therapy for the cellulitis. Patient has been experiencing extreme pain in the left lower extremity related to the cellulitis recently. She was started on morphine yesterday. Patient states symptoms started this afternoon when she got up from resting. Patient appears rather anxious. Allergies and Home Medications Allergies Coded Allergies: amylase (Verified Allergy, Unknown, 08/07/15) black cohosh (Verified Allergy, Unknown, 08/07/15) cellulase (Verified Allergy, Unknown, 08/07/15) glyburide (Verified Allergy, Unknown, 08/07/15) isosorbide (Verified Allergy, Unknown, 08/07/15) lipase (Verified Allergy, Unknown, 08/07/15) protease (Verified Allergy, Unknown, 08/07/15) Home Medications Acetaminophen 500 Mg Tablet, 1,000 MG PO DAILY, (Reported) TAKES 2 (500MG) TABLETS Acetaminophen 500 Mg Tablet, 1,000 MG PO DAILY PRN for PAIN-MILD, (Reported) TAKES 2 (500MG) TABLETS; ALWAYS TAKES 2 IN THE MORNING AND OCCASIONALLY WILL TAKE ANOTHER DOSE LATER IN THE DAY NEEDED Atorvastatin Calcium 80 Mg Tablet, 80 MG PO HS, (Reported) Calcium Carbonate/Vitamin D3 1 Each Tablet, 1 TAB PO BID, (Reported) Cephalexin 500 Mg Capsule, 500 MG PO TID Prescribed by: SAWYER TELLO on 03/08/19 0931 Cetirizine HCl 10 Mg Tablet, 10 MG PO DAILY, (Reported) Cholecalciferol (Vitamin D3) 1,000 Unit Capsule, 2,000 UNIT PO 1200, (Reported) Cyclobenzaprine HCl 10 Mg Tablet, 10 MG PO TID, (Reported) Cyclosporine 1 Each Droperette, 1 DROP OU BID, (Reported) Diltiazem HCl 240 Mg Cap.er.24h, 240 MG PO DAILY, (Reported) Dronedarone HCl 400 Mg Tablet, 400 MG PO BID Prescribed by: CHARLY JOSE on 03/08/19 0941 Ferrous Sulfate 325 Mg Tablet, 325 MG PO 1800, (Reported) Fluticasone/Vilanterol 1 Each Blst.w.dev, 1 PUFF INH DAILY, (Reported) Gabapentin 800 Mg Tablet, 800 MG PO QID, (Reported) Glucosamine/D3/Boswellia Nellie 1 Each Tablet, 1 TAB PO BID, (Reported) Hydrocodone/Acetaminophen 1 Each Tablet, 1 TAB PO Q6H, (Reported) Imipramine HCl 50 Mg Tablet, 50 MG PO HS, (Reported) Insulin Aspart 300 Units/3 Ml Solution, 6 UNITS SQ TIDAC, (Reported) Insulin Glargine,Hum.rec.anlog 100 Unit/1 Ml Vial, 20 UNIT SQ HS, (Reported) Lisinopril 20 Mg Tablet, 20 MG PO DAILY, (Reported) Metformin HCl 1,000 Mg Tablet, 1,000 MG PO BID, (Reported) Metoprolol Succinate 100 Mg Tab.er.24h, 100 MG PO BID, (Reported) Mineral Oil/Petrolatum,White 3.5 Gm Oint...g., OU HS, (Reported) Mirabegron 50 Mg Tab.er.24h, 50 MG PO DAILY, (Reported) Multivitamin with Minerals 1 Each Tablet, 1 TAB PO DAILY, (Reported) Nitrofurantoin Macrocrystal 100 Mg Capsule, 100 MG PO 1800, (Reported) [place] 3 Polyunsat Fatty Acids 1,000 Mg Cap, 1,000 MG PO TID, (Reported) Polyethylene Glycol 3350 17 Gm Powd.pack, 17 GM PO DAILY PRN for CONSTIPATION- 2ND LINE, (Reported) Polyvinyl Alcohol/Povidone 15 Ml Drops, 2 DROPS OU Q2H PRN for DRY EYES, (Reported) Prasugrel HCl 10 Mg Tablet, 10 MG PO DAILY, (Reported) Primidone 250 Mg Tablet, 250 MG PO TID, (Reported) Ranitidine HCl 150 Mg Tablet, 150 MG PO DAILY PRN for HEARTBURN, (Reported) Solifenacin Succinate 10 Mg Tablet, 10 MG PO 1600, (Reported) Triamcinolone Acet 15 Gm Cr, 15 GM TP BID Prescribed by: SAWYER TELLO on 03/08/19 0931 Venlafaxine HCl 75 Mg Cap.er.24h, 75 MG PO DAILY, (Reported) Warfarin Sodium 4 Mg Tablet, 4 MG PO SuTuThSa@1600, (Reported) Warfarin Sodium 4 Mg Tablet, 2 MG PO MoWeFr@1600, (Reported) Patient Home Medication List Home Medication List Reviewed: Yes Review of Systems Constitutional: see HPI EENTM: no symptoms reported Respiratory: no symptoms reported Cardiovascular: see HPI Gastrointestinal: no symptoms reported Genitourinary: no symptoms reported : No Musculoskeletal: see HPI Skin: see HPI Psychiatric/Neurological: See HPI Past Siurflf-Utpvjm-Xpeqhe Hx Past Med/Social Hx: Reviewed Nursing Past Med/Soc Hx Patient Social History Type Used: Cigarettes Former Smoker, Quit: May 18, 1980 2nd Hand Smoke Exposure: No Recent Foreign Travel: No Contact w/Someone Who Travel: No Recent Infectious Disease Expo: No Recent Hopitalizations: No Physical Abuse: No Sexual Abuse: No Mistreated: No Fear: No Immunizations Up To Date Tetanus Booster (TDap): Unknown PED Vaccines UTD: Yes Date of Pneumonia Vaccine: Feb 13, 2015 Date of Influenza Vaccine: Feb 13, 2019 Seasonal Allergies Seasonal Allergies: No Past Medical History Surgeries: Yes Cardiac, Coronary Stent, Eye Surgery, Orthopedic Respiratory: Yes Asthma, Sleep Apnea Currently Using CPAP: Yes Currently Using BIPAP: No Cardiac: Yes Atrial Fibrillation, Chronic Edema/Swelling, Coronary Artery Disease, Deep Vein Thrombosis, Heart Attack, High Cholesterol, Hypertension Neurological: Yes Neuropathy 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 Disorders: Yes Female 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 Disorders: Denies 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 Sexually Transmitted Disease: No HIV/AIDS: No Genitourinary: Yes UTI-Chronic Gastrointestinal: Yes Gastroesophageal Reflux, Chronic Constipation Musculoskeletal: Yes Degenerate Disk Disease, Arthritis, Chronic Back Pain Endocrine: Yes (MORBID OBESITY) Diabetes, Insulin dep HEENT: Yes Cataract Loss of Vision: Bilateral Hearing Impairment: Denies Cancer: No Uterine Psychosocial: Yes Anxiety, Depression Integumentary: No Blood Disorders: No Adverse Reaction/Blood Tranf: No Family Medical History Reviewed Nursing Family Hx Cardiovascular disease 19 FATHER 19 MOTHER Colon cancer 19 FATHER 19 MOTHER Diabetes mellitus 19 MOTHER G8 BROTHER G8 SISTER Myocardial infarction 19 FATHER No Pertinent Family Hx Physical Exam Vital Signs Vital Signs - First Documented 03/10/19 18:00 Temp 37.5 Pulse 79 Resp 16 B/P (MAP) 109/72 (84) Pulse Ox 95 O2 Delivery Room Air Capillary Refill : Less Than 3 Seconds Height, Weight, BMI Height: 5'10.50" Weight: 302lbs. 0.0oz. 136.581953eg; 40.00 BMI Method:Stated General Appearance: WD/WN, Anxious, Mild Distress HEENT: PERRL/EOMI, Normal ENT Inspection Neck: Normal Inspection, Other (posterior neck musculature very tense and tender) Cardiovascular: Regular Rate, Rhythm, No Edema, No Murmur, Normal Peripheral Pulses (normal radial pulses. Pedal pulses difficult to palpate) Respiratory: Lungs Clear, Normal Breath Sounds, No Accessory Muscle Use, No Respiratory Distress Gastrointestinal: Non Tender, Soft Extremity: Other (mild lower extremity edema. Normal capillary refill. Mild residual rash on the left foot.) Neurologic/Psychiatric: Alert, Oriented x3, No Motor/Sensory Deficits, media producer II- XII Norm as Tested, Other (anxious, poor eye contact) Skin: Normal Color, Warm/Dry Progress/Results/Core Measures Results/Orders Lab Results Laboratory Tests Test 03/10/19 18:05 03/10/19 20:03 Range/Units White Blood Count 10.3 4.3-11.0 10^3/uL Red Blood Count 4.32 L 4.35-5.85 10^6/uL Hemoglobin 12.3 11.5-16.0 G/DL Hematocrit 38 35-52 % Mean Corpuscular Volume 87 80-99 FL Mean Corpuscular Hemoglobin 29 25-34 PG Mean Corpuscular Hemoglobin Concent 33 32-36 G/DL Red Cell Distribution Width 15.1 H 10.0-14.5 % Platelet Count 352 130-400 10^3/uL Mean Platelet Volume 10.4 7.4-10.4 FL Neutrophils (%) (Auto) 61 42-75 % Lymphocytes (%) (Auto) 27 12-44 % Monocytes (%) (Auto) 9 0-12 % Eosinophils (%) (Auto) 3 0-10 % Basophils (%) (Auto) 0 0-10 % Neutrophils # (Auto) 6.3 1.8-7.8 X 10^3 Lymphocytes # (Auto) 2.7 1.0-4.0 X 10^3 Monocytes # (Auto) 0.9 0.0-1.0 X 10^3 Eosinophils # (Auto) 0.3 0.0-0.3 10^3/uL Basophils # (Auto) 0.0 0.0-0.1 10^3/uL Prothrombin Time 25.7 H 12.2-14.7 SEC INR Comment 2.2 H 0.8-1.4 Activated Partial Thromboplast Time 37 H 24-35 SEC Sodium Level 138 135-145 MMOL/L Potassium Level 4.3 3.6-5.0 MMOL/L Chloride Level 101 98-107 MMOL/L Carbon Dioxide Level 20 L 21-32 MMOL/L Anion Gap 17 H 5-14 MMOL/L Blood Urea Nitrogen 14 7-18 MG/DL Creatinine 0.98 0.60-1.30 MG/DL Estimat Glomerular Filtration Rate 57 BUN/Creatinine Ratio 14 Glucose Level 125 H 70-105 MG/DL Calcium Level 9.8 8.5-10.1 MG/DL Corrected Calcium 9.9 8.5-10.1 MG/DL Magnesium Level 1.6 1.6-2.4 MG/DL Total Bilirubin 0.2 0.1-1.0 MG/DL Aspartate Amino Transf (AST/SGOT) 18 5-34 U/L Alanine Aminotransferase (ALT/SGPT) 20 0-55 U/L Alkaline Phosphatase 145 H 40-136 U/L Myoglobin 52.6 10.0-92.0 NG/ML Troponin I < 0.028 < 0.028 <0.028 NG/ML B-Type Natriuretic Peptide 33.7 <100.0 PG/ML Total Protein 7.5 6.4-8.2 GM/DL Albumin 3.9 3.2-4.5 GM/DL My Orders Orders - SAMANTHA RUSSO MD Cbc With Automated Diff (03/10/19 18:21) Magnesium (03/10/19 18:21) Chest 1 View, Ap/Pa Only (03/10/19 18:21) Ekg Tracing (03/10/19 18:21) Cardiac Profile 1 (03/10/19 18:21) Comprehensive Metabolic Panel (03/10/19 18:21) Myoglobin Serum (03/10/19 18:21) Protime With Inr (03/10/19 18:21) Partial Thromboplastin Time (03/10/19 18:21) O2 (03/10/19 18:21) Monitor-Rhythm Ecg Trace Only (03/10/19 18:21) Lipid Panel (03/11/19 06:00) Ed Iv/Invasive Line Start (03/10/19 18:21) BNP (03/10/19 18:21) Orphenadrine Injection (Norflex Injectio (03/10/19 18:30) Troponin I (03/10/19 20:05) Ed Iv/Invasive Line Start (03/10/19 19:22) Ns Iv 1000 Ml (Sodium Chloride 0.9%) (03/10/19 19:22) Ns Iv 500 Ml (Sodium Chloride 0.9%) (03/10/19 20:20) Medications Given in ED Current Medications Medications Dose Ordered Sig/Ashley Route Start Time Stop Time Status Last Admin Dose Admin Orphenadrine Citrate 60 mg ONCE ONCE IM 03/10/19 18:30 03/10/19 18:31 DC 03/10/19 18:32 60 MG Sodium Chloride 500 ml @ 0 mls/hr Q0M ONCE IV 03/10/19 20:20 03/10/19 20:21 DC 03/10/19 20:27 999 MLS/HR Sodium Chloride 1,000 ml @ 0 mls/hr Q0M ONCE IV 03/10/19 19:22 03/10/19 19:23 DC 03/10/19 19:28 999 MLS/HR Vital Signs/I&O 03/10/19 18:00 Temp 37.5 Pulse 79 Resp 16 B/P (MAP) 109/72 (84) Pulse Ox 95 O2 Delivery Room Air Blood Pressure Mean: 84 Progress Progress Note #1: Time: 18:52 Progress Note Patient was seen and examined. Osteopathic manipulation was performed by Eliseo Simmons, MS 3. Patient had difficulty relaxing during manipulation. Norflex is being given for muscle tension. Cardiac workup is also being per formed due to patient's complaints of mild chest discomfort and history of cardiac pathologies. EKG was unremarkable. Progress Note #2: Time: 19:30 Progress Note Labs are unremarkable. Patient's pain is improving after Norflex. She developed hypotension after being treated with Norflex. An IV normal saline bolus is being administered. 2 hour troponin has been ordered to be drawn at 20:05. Progress Note #3: Time: 21:46 Progress Note Patient's repeat troponin was normal. Patient was observed to have some hypotension which improved with IV fluids. After fluids were complete, she had blood pressures measured sitting and standing, both of which were normal. She had no hypotensive symptoms standing. She was able to get up to the walker independently. She will be dismissed into the care of her care provider. Initial ECG Impression Date: Mar 10, 2019 Initial ECG Impression Time: 18:05 Initial ECG Rate: 78 Initial ECG Rhythm: Normal Sinus Comment Sinus rhythm with no ST elevation or depression. Probable LVH. Nonspecific intraventricular conduction delay by automated read. Diagnostic Imaging Diagonstic Imaging: Xray Plain Films/CT/US/NM/MRI: chest Comments Chest x-ray viewed by me and report reviewed. See report below: NAME: ALFREDO KAUFMAN [facility] REC#: [id number] PT STATUS: REG ER : 1950 PHYSICIAN: SAMANTHA RUSSO MD ADMIT DATE: 03/10/19/ER Draft Date of Exam:03/10/19 CHEST 1 VIEW, AP/PA ONLY INDICATION: Chest pain. Comparison with 03/06/2019. FINDINGS: Portable chest shows the lungs to be well-aerated and clear. The heart is mildly enlarged. There is no evidence of pulmonary edema or hilar adenopathy. No pneumothorax or pleural effusion. There is msw overlying the left chest. No bony abnormalities. IMPRESSION: Stable portable chest with no acute abnormality. Dictated on workstation # [id number] Dict: 03/10/19 1848 Trans: 03/10/19 1851 [facility] [id number] Interpreted by: JCARLOS KIM MD Departure Impression Primary Impression: Neck muscle spasm Additional Impressions: Chest discomfort Hypotensive episode Disposition: 01 HOME, SELF-CARE Condition: Improved Departure-Patient Inst. Decision time for Depature: 21:40 Referrals: DELIA TRIANA MD (PCP/Family) Primary Care Physician Patient Instructions: Muscle Spasms (DC) Add. Discharge Instructions: Follow-up with your primary care provider as soon as possible. Please call Tuesday morning. In the meantime, please use the prescribed morphine with extreme caution. Drink plenty of clear liquids. Take your medications as previously prescribed. Gentle stretching and gentle heat to your neck should help improve pain and muscle stiffness. Please discuss your neck pain with your physical therapist. Return to the emergency room if you have worsening symptoms. All discharge instructions reviewed with patient and/or family. Voiced understan ding. SAMANTHA RUSSO MD Mar 10, 2019 18:50
--- NOTE | 2019-03-10 18:51 | Diagnostic Imaging Report ---
INDICATION: Chest pain. Comparison with 03/06/2019. FINDINGS: Portable chest shows the lungs to be well-aerated and clear. The heart is mildly enlarged. There is no evidence of pulmonary edema or hilar adenopathy. No pneumothorax or pleural effusion. There is environmental monitoring specialist overlying the left chest. No bony abnormalities. IMPRESSION: Stable portable chest with no acute abnormality. Dictated by: Dictated on workstation # [id number]
--- NOTE | 2019-03-10 18:53 | NUR ---
[facility]
[2019-03-10] MEDS ORDERED: NS IV 1000 ML 1,000 ML IV ONE (19:22)
--- NOTE | 2019-03-10 19:23 | NUR ---
DR. RUSSO NOTIFIED OF 3 SBP <90, NEW ORDERS RECEIVED.
[2019-03-10] MEDS ORDERED: NS IV 500 ML 500 ML IV ONE (20:20)
[2019-03-10 21:55] VITALS: BP 109/64
== END 2019-03-10 21:56 | disposition home or self-care (01) ==
LOC: EDUNIT# 18:00 → ER 18:02
DX: M62.838 Other muscle spasm (principal); R07.9 Chest pain, unspecified; I95.9 Hypotension, unspecified; I10 Essential (primary) hypertension; E11.40 Type 2 diabetes mellitus with diabetic neuropathy, unspecified; I48.0 Paroxysmal atrial fibrillation; J45.909 Unspecified asthma, uncomplicated; I25.10 Atherosclerotic heart disease of native coronary artery without angina pectoris; I25.2 Old myocardial infarction; G47.30 Sleep apnea, unspecified; F41.9 Anxiety disorder, unspecified; F32.9 Major depressive disorder, single episode, unspecified; K21.9 Gastro-esophageal reflux disease without esophagitis; E66.01 Morbid (severe) obesity due to excess calories; Z87.440 Personal history of urinary (tract) infections; Z79.899 Other long term (current) drug therapy; Z86.718 Personal history of other venous thrombosis and embolism; Z79.01 Long term (current) use of anticoagulants; Z88.8 Allergy status to other drugs, medicaments and biological substances; Z79.51 Long term (current) use of inhaled steroids; Z79.4 Long term (current) use of insulin; Z87.891 Personal history of nicotine dependence; Z95.5 Presence of coronary angioplasty implant and graft; Z82.49 Family history of ischemic heart disease and other diseases of the circulatory system; Z80.0 Family history of malignant neoplasm of digestive organs
CPT/HCPCS: 36415; 71045; 80053; 83735; 83874; 83880; 84484; 85025; 85610; 85730; 93005; 93041; 96361; 96374

== ENCOUNTER 2019-04-13 02:27 | Inpatient (IN) | payer MEDICARE, MEDICAID ==
[~2019-04-13] VITALS: Ht 177 cm; Wt 127.6 kg
[2019-04-13] VITALS (23 sets, daily range): BP systolic 89–132; BP diastolic 61–94
[2019-04-13 02:52] LABS: BASOPHILS % (AUTO) 0 % (0-10); EOSINOPHILS # (AUTO) 0.4 10^3/uL (0.0-0.3); EOSINOPHILS % (AUTO) 5 % (0-10); HEMATOCRIT 37 % (35-52); HEMOGLOBIN 12.1 G/DL (11.5-16.0); LYMPHOCYTES # (AUTO) 3.1 X 10^3 (1.0-4.0); LYMPHOCYTES % (AUTO) 41 % (12-44); MEAN CORPUSCULAR HEMOGLOBIN 28 PG (25-34); MEAN CORPUSCULAR HGB CONC 32 G/DL (32-36); MEAN CORPUSCULAR VOLUME 87 FL (80-99); MEAN PLATELET VOLUME 9.8 FL (7.4-10.4); MONOCYTES # (AUTO) 0.8 X 10^3 (0.0-1.0); MONOCYTES % (AUTO) 10 % (0-12); NEUTROPHILS # (AUTO) 3.4 X 10^3 (1.8-7.8); NEUTROPHILS % (AUTO) 44 % (42-75); PLATELET COUNT 289 10^3/uL (130-400); RED CELL DISTRIBUTION WIDTH 15.7 % (10.0-14.5); WHITE BLOOD COUNT 7.6 10^3/uL (4.3-11.0)
[2019-04-13 03:00] LABS: INR 2.1 (0.8-1.4); PROTHROMBIN TIME PATIENT 24.3 SEC (12.2-14.7)
[2019-04-13] MEDS ORDERED: DILTIAZEM IV FOR DRIP 125 MG in NS (IVPB) 100 ML IV SCH (03:00)
[2019-04-13 03:10] LABS: ALANINE AMINOTRANSFERASE 35 U/L (0-55); ALBUMIN 3.9 GM/DL (3.2-4.5); ALKALINE PHOSPHATASE 145 U/L (40-136); BILIRUBIN,TOTAL 0.1 MG/DL (0.1-1.0); BUN/CREATININE RATIO 22; CALCIUM 9.1 MG/DL (8.5-10.1); CARBON DIOXIDE 23 MMOL/L (21-32); CHLORIDE 104 MMOL/L (98-107); CREATININE SERUM 0.82 MG/DL (0.60-1.30); GFR ESTIMATED > 60; GLUCOSE 132 MG/DL (70-105); MAGNESIUM 1.7 MG/DL (1.6-2.4); POTASSIUM 4.2 MMOL/L (3.6-5.0); SODIUM 141 MMOL/L (135-145); TOTAL PROTEIN 7.3 GM/DL (6.4-8.2)
--- NOTE | 2019-04-13 04:05 | ED Cardiac General ---
History of Present Illness General Chief Complaint: Cardiac/General Problems Stated Complaint: A-FIB Nursing Triage Note: PT PRESENT TO ROOM FIVE VIA EMS C/O A FLUTTERING SENSATION IN HER CHEST THAT SHE STATES OFTEN MEANS SHE IS IN A FIB. PT DENIES ALWAYS BEING IN A FIB AND STATES HER SYMPTOMS ARE ASSOCIATED WITH HER IRREGULAR RYTHM. PT DENIES CHEST PAIN OR SHORTNESS OF BREATH. Source: patient Exam Limitations: no limitations History of Present Illness Date Seen by Provider: Apr 13, 2019 Time Seen by Provider: 02:33 Initial Comments This 68-year-old woman presents to the emergency room with complaints of chest pain, palpitations, and lightheadedness that started around 21:00. She believes she is in A. fib. She has paroxysmal A. fib and has had significant issues regarding episodes of A. fib during recent admissions. Should a prolonged admission in [place] during which she states a cardioversion was planned. However, an atrial thrombus was found and cardioversion was delayed. Patient also had a NSTEMI in November and had an LAD stent placed. Dr. Russell is her primary cardiac cath tech. She is in atrial fibrillation with tachycardia in the 120s during initial assessment. Allergies and Home Medications Allergies Coded Allergies: amylase (Verified Allergy, Unknown, 08/07/15) black cohosh (Verified Allergy, Unknown, 08/07/15) cellulase (Verified Allergy, Unknown, 08/07/15) glyburide (Verified Allergy, Unknown, 08/07/15) isosorbide (Verified Allergy, Unknown, 08/07/15) lipase (Verified Allergy, Unknown, 08/07/15) protease (Verified Allergy, Unknown, 08/07/15) Home Medications Acetaminophen 500 Mg Tablet, 1,000 MG PO DAILY, (Reported) TAKES 2 (500MG) TABLETS Acetaminophen 500 Mg Tablet, 1,000 MG PO DAILY PRN for PAIN-MILD, (Reported) TAKES 2 (500MG) TABLETS; ALWAYS TAKES 2 IN THE MORNING AND OCCASIONALLY WILL TAKE ANOTHER DOSE LATER IN THE DAY NEEDED Atorvastatin Calcium 80 Mg Tablet, 80 MG PO HS, (Reported) Calcium Carbonate/Vitamin D3 1 Each Tablet, 1 TAB PO BID, (Reported) Cephalexin 500 Mg Capsule, 500 MG PO TID Prescribed by: SAWYER TELLO on 03/08/19 0931 Cetirizine HCl 10 Mg Tablet, 10 MG PO DAILY, (Reported) Cholecalciferol (Vitamin D3) 1,000 Unit Capsule, 2,000 UNIT PO 1200, (Reported) Cyclobenzaprine HCl 10 Mg Tablet, 10 MG PO TID, (Reported) Cyclosporine 1 Each Droperette, 1 DROP OU BID, (Reported) Diltiazem HCl 240 Mg Cap.er.24h, 240 MG PO DAILY, (Reported) Dronedarone HCl 400 Mg Tablet, 400 MG PO BID Prescribed by: CHARLY JOSE on 03/08/19 0941 Ferrous Sulfate 325 Mg Tablet, 325 MG PO 1800, (Reported) Fluticasone/Vilanterol 1 Each Blst.w.dev, 1 PUFF INH DAILY, (Reported) Gabapentin 800 Mg Tablet, 800 MG PO QID, (Reported) Glucosamine/D3/Boswellia Nellie 1 Each Tablet, 1 TAB PO BID, (Reported) Hydrocodone/Acetaminophen 1 Each Tablet, 1 TAB PO Q6H, (Reported) Imipramine HCl 50 Mg Tablet, 50 MG PO HS, (Reported) Insulin Aspart 300 Units/3 Ml Solution, 6 UNITS SQ TIDAC, (Reported) Insulin Glargine,Hum.rec.anlog 100 Unit/1 Ml Vial, 20 UNIT SQ HS, (Reported) Lisinopril 20 Mg Tablet, 20 MG PO DAILY, (Reported) Metformin HCl 1,000 Mg Tablet, 1,000 MG PO BID, (Reported) Metoprolol Succinate 100 Mg Tab.er.24h, 100 MG PO BID, (Reported) Mineral Oil/Petrolatum,White 3.5 Gm Oint...g., OU HS, (Reported) Mirabegron 50 Mg Tab.er.24h, 50 MG PO DAILY, (Reported) Multivitamin with Minerals 1 Each Tablet, 1 TAB PO DAILY, (Reported) Nitrofurantoin Macrocrystal 100 Mg Capsule, 100 MG PO 1800, (Reported) [place] 3 Polyunsat Fatty Acids 1,000 Mg Cap, 1,000 MG PO TID, (Reported) Polyethylene Glycol 3350 17 Gm Powd.pack, 17 GM PO DAILY PRN for CONSTIPATION- 2ND LINE, (Reported) Polyvinyl Alcohol/Povidone 15 Ml Drops, 2 DROPS OU Q2H PRN for DRY EYES, (Reported) Prasugrel HCl 10 Mg Tablet, 10 MG PO DAILY, (Reported) Primidone 250 Mg Tablet, 250 MG PO TID, (Reported) Ranitidine HCl 150 Mg Tablet, 150 MG PO DAILY PRN for HEARTBURN, (Reported) Solifenacin Succinate 10 Mg Tablet, 10 MG PO 1600, (Reported) Triamcinolone Acet 15 Gm Cr, 15 GM TP BID Prescribed by: SAWYER TELLO on 03/08/19 0931 Venlafaxine HCl 75 Mg Cap.er.24h, 75 MG PO DAILY, (Reported) Warfarin Sodium 4 Mg Tablet, 4 MG PO SuTuThSa@1600, (Reported) Warfarin Sodium 4 Mg Tablet, 2 MG PO MoWeFr@1600, (Reported) Patient Home Medication List Home Medication List Reviewed: Yes Review of Systems Review of Systems Constitutional: no symptoms reported EENTM: No Symptoms Reported Respiratory: No Symptoms Reported Cardiovascular: See HPI Gastrointestinal: No Symptoms Reported Genitourinary: No Symptoms Reported Musculoskeletal: no symptoms reported Skin: no symptoms reported Psychiatric/Neurological: No Symptoms Reported Endocrine: No Symptoms Reported Hematologic/Lymphatic: No Symptoms Reported Past Ykfxmyn-Sbdgkl-Owwbgp Hx Past Med/Social Hx: Reviewed and Corrections made Patient Social History Alcohol Use: Denies Use Recreational Drug Use: No Smoking Status: Never a Smoker Type Used: Cigarettes Former Smoker, Quit: May 18, 1980 2nd Hand Smoke Exposure: No Recent Foreign Travel: No Contact w/Someone Who Travel: No Recent Infectious Disease Expo: No Recent Hopitalizations: No Physical Abuse: No Sexual Abuse: No Mistreated: No Fear: No Immunizations Up To Date Tetanus Booster (TDap): Unknown PED Vaccines UTD: Yes Date of Pneumonia Vaccine: Feb 13, 2015 Date of Influenza Vaccine: Feb 13, 2019 Seasonal Allergies Seasonal Allergies: No Past Medical History Surgeries: Yes (STENTS PLACED NOVEMBER 2018) Cardiac, Coronary Stent, Eye Surgery, Orthopedic Respiratory: Yes Asthma, Sleep Apnea Currently Using CPAP: Yes Currently Using BIPAP: No Cardiac: Yes Atrial Fibrillation (Paroxysmal), Chronic Edema/Swelling, Coronary Artery Disease, Deep Vein Thrombosis, Heart Attack, High Cholesterol, Hypertension Neurological: Yes Neuropathy : No 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 Disorders: Yes Female 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 Disorders: 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 Sexually Transmitted Disease: No HIV/AIDS: No Genitourinary: Yes UTI-Chronic Gastrointestinal: Yes Gastroesophageal Reflux, Chronic Constipation Musculoskeletal: Yes Degenerate Disk Disease, Arthritis, Chronic Back Pain Endocrine: Yes (MORBID OBESITY) Diabetes, Insulin dep HEENT: Yes Cataract Loss of Vision: Bilateral Hearing Impairment: Denies Cancer: No Uterine Psychosocial: Yes Anxiety, Depression Integumentary: No Blood Disorders: No Adverse Reaction/Blood Tranf: No Family Medical History Cardiovascular disease 19 FATHER 19 MOTHER Colon cancer 19 FATHER 19 MOTHER Diabetes mellitus 19 MOTHER G8 BROTHER G8 SISTER Myocardial infarction 19 FATHER No Pertinent Family Hx Physical Exam Vital Signs Vital Signs - First Documented 04/13/19 02:27 Temp 36.6 Pulse 122 Resp 20 B/P (MAP) 132/86 (101) Pulse Ox 95 O2 Delivery Room Air Capillary Refill : Less Than 3 Seconds Height, Weight, BMI Height: 5'10.50" Weight: 302lbs. 0.0oz. 136.701547fu; 41.00 BMI Method:Stated General Appearance: No Apparent Distress, WD/WN HEENT: PERRL/EOMI, Normal ENT Inspection Neck: Normal Inspection Respiratory: Lungs Clear, Normal Breath Sounds, No Accessory Muscle Use Cardiovascular: No Edema, No Murmur, Irregularly Irregular, Tachycardia Gastrointestinal: Normal Bowel Sounds, Non Tender, Soft Extremity: Swelling, Other (Significant chronic firm pitting lower extremity edema of both lower extremities) Neurologic/Psychiatric: Alert, Oriented x3, No Motor/Sensory Deficits, Normal Mood/Affect Skin: Normal Color, Warm/Dry Progress/Results/Core Measures Results/Orders Lab Results Laboratory Tests Test 04/13/19 02:40 Range/Units White Blood Count 7.6 4.3-11.0 10^3/uL Red Blood Count 4.31 L 4.35-5.85 10^6/uL Hemoglobin 12.1 11.5-16.0 G/DL Hematocrit 37 35-52 % Mean Corpuscular Volume 87 80-99 FL Mean Corpuscular Hemoglobin 28 25-34 PG Mean Corpuscular Hemoglobin Concent 32 32-36 G/DL Red Cell Distribution Width 15.7 H 10.0-14.5 % Platelet Count 289 130-400 10^3/uL Mean Platelet Volume 9.8 7.4-10.4 FL Neutrophils (%) (Auto) 44 42-75 % Lymphocytes (%) (Auto) 41 12-44 % Monocytes (%) (Auto) 10 0-12 % Eosinophils (%) (Auto) 5 0-10 % Basophils (%) (Auto) 0 0-10 % Neutrophils # (Auto) 3.4 1.8-7.8 X 10^3 Lymphocytes # (Auto) 3.1 1.0-4.0 X 10^3 Monocytes # (Auto) 0.8 0.0-1.0 X 10^3 Eosinophils # (Auto) 0.4 H 0.0-0.3 10^3/uL Basophils # (Auto) 0.0 0.0-0.1 10^3/uL Prothrombin Time 24.3 H 12.2-14.7 SEC INR Comment 2.1 H 0.8-1.4 Activated Partial Thromboplast Time 35 24-35 SEC Sodium Level 141 135-145 MMOL/L Potassium Level 4.2 3.6-5.0 MMOL/L Chloride Level 104 98-107 MMOL/L Carbon Dioxide Level 23 21-32 MMOL/L Anion Gap 14 5-14 MMOL/L Blood Urea Nitrogen 18 7-18 MG/DL Creatinine 0.82 0.60-1.30 MG/DL Estimat Glomerular Filtration Rate > 60 BUN/Creatinine Ratio 22 Glucose Level 132 H 70-105 MG/DL Calcium Level 9.1 8.5-10.1 MG/DL Corrected Calcium 9.2 8.5-10.1 MG/DL Magnesium Level 1.7 1.6-2.4 MG/DL Total Bilirubin 0.1 0.1-1.0 MG/DL Aspartate Amino Transf (AST/SGOT) 25 5-34 U/L Alanine Aminotransferase (ALT/SGPT) 35 0-55 U/L Alkaline Phosphatase 145 H 40-136 U/L Myoglobin 17.4 10.0-92.0 NG/ML Troponin I < 0.028 <0.028 NG/ML Total Protein 7.3 6.4-8.2 GM/DL Albumin 3.9 3.2-4.5 GM/DL TSH [place] Testing 2.64 0.35-4.94 UIU/ML My Orders Orders - SAMANTHA RUSSO MD Cbc With Automated Diff (04/13/19 02:46) Magnesium (04/13/19 02:46) Chest 1 View, Ap/Pa Only (04/13/19 02:46) Ekg Tracing (04/13/19 02:46) Comprehensive Metabolic Panel (04/13/19 02:46) Myoglobin Serum (04/13/19 02:46) Protime With Inr (04/13/19 02:46) Partial Thromboplastin Time (04/13/19 02:46) O2 (04/13/19 02:46) Monitor-Rhythm Ecg Trace Only (04/13/19 02:46) Lipid Panel (04/14/19 06:00) Ed Iv/Invasive Line Start (04/13/19 02:46) Troponin I (04/13/19 02:46) Ns (Ivpb) (Sodium C... W/Diltiazem Iv Fo (04/13/19 03:00) Thyroid Analyzer (04/13/19 03:51) Vital Signs/I&O 04/13/19 04/13/19 04/13/19 02:27 02:27 03:18 Temp 36.6 Pulse 122 116 Resp 20 13 B/P (MAP) 132/86 (101) 116/78 Pulse Ox 95 95 100 O2 Delivery Room Air Room Air Room Air Blood Pressure Mean: 91 POS Progress Progress Note : Progress Note Workup was relatively unremarkable. Patient was started on Cardizem drip which improved heart rate to about 100. Patient was admitted because she was symptomatic and states she typically has significant trouble with symptoms when in atrial fibrillation. Initial ECG Impression Date: Apr 13, 2019 Initial ECG Impression Time: 03:30 Initial ECG Rate: 109 Initial ECG Rhythm: A Fib/Flutter Initial ECG Impression: Atrial Fibrillation Comment Atrial fibrillation with no acute ischemic changes. Rate controlled at 109. Diagnostic Imaging Diagonstic Imaging: Xray Plain Films/CT/US/NM/MRI: chest Comments Chest x-ray viewed by me and compared with prior. No report available at this time. No acute or adverse changes appreciated by the ER provider. Departure Communication (Admissions) Time/Spoke to Admitting Phy: 03:55 Dr. Tello Time/Spoke to Consulting Phy: 04:00 Dr. Nagy Impression Primary Impression: Atrial fibrillation with RVR Additional Impression: Chest pain Qualified Codes: R07.9 - Chest pain, unspecified Disposition: ADMITTED INPATIENT Condition: Improved Admissions Decision to Admit Reason: Admit from ER (General) Decision to Admit/Date: Apr 13, 2019 Time/Decision to Admit Time: 03:55 Departure-Patient Inst. Referrals: DELIA TRIANA MD (PCP/Family) Primary Care Physician SAMANTHA RUSSO MD Apr 13, 2019 04:04 POS
--- NOTE | 2019-04-13 06:01 | Pulmonary Consultation ---
History of Present Illness History of Present Illness Date of Admission Allergies and Home Medications Allergies Coded Allergies: amylase (Verified Allergy, Unknown, 08/07/15) black cohosh (Verified Allergy, Unknown, 08/07/15) cellulase (Verified Allergy, Unknown, 08/07/15) glyburide (Verified Allergy, Unknown, 08/07/15) isosorbide (Verified Allergy, Unknown, 08/07/15) lipase (Verified Allergy, Unknown, 08/07/15) protease (Verified Allergy, Unknown, 08/07/15) Home Medications Acetaminophen 500 Mg Tablet, 1,000 MG PO DAILY, (Reported) TAKES 2 (500MG) TABLETS Acetaminophen 500 Mg Tablet, 1,000 MG PO DAILY PRN for PAIN-MILD, (Reported) TAKES 2 (500MG) TABLETS; ALWAYS TAKES 2 IN THE MORNING AND OCCASIONALLY WILL TAKE ANOTHER DOSE LATER IN THE DAY NEEDED Atorvastatin Calcium 80 Mg Tablet, 80 MG PO HS, (Reported) Calcium Carbonate/Vitamin D3 1 Each Tablet, 1 TAB PO BID, (Reported) Cephalexin 500 Mg Capsule, 500 MG PO TID Prescribed by: SAWYER TELLO on 03/08/19 0931 Cetirizine HCl 10 Mg Tablet, 10 MG PO DAILY, (Reported) Cholecalciferol (Vitamin D3) 1,000 Unit Capsule, 2,000 UNIT PO 1200, (Reported) Cyclobenzaprine HCl 10 Mg Tablet, 10 MG PO TID, (Reported) Cyclosporine 1 Each Droperette, 1 DROP OU BID, (Reported) Diltiazem HCl 240 Mg Cap.er.24h, 240 MG PO DAILY, (Reported) Dronedarone HCl 400 Mg Tablet, 400 MG PO BID Prescribed by: CHARLY JOSE on 03/08/19 0941 Ferrous Sulfate 325 Mg Tablet, 325 MG PO 1800, (Reported) Fluticasone/Vilanterol 1 Each Blst.w.dev, 1 PUFF INH DAILY, (Reported) Gabapentin 800 Mg Tablet, 800 MG PO QID, (Reported) Glucosamine/D3/Boswellia Nellie 1 Each Tablet, 1 TAB PO BID, (Reported) Hydrocodone/Acetaminophen 1 Each Tablet, 1 TAB PO Q6H, (Reported) Imipramine HCl 50 Mg Tablet, 50 MG PO HS, (Reported) Insulin Aspart 300 Units/3 Ml Solution, 6 UNITS SQ TIDAC, (Reported) Insulin Glargine,Hum.rec.anlog 100 Unit/1 Ml Vial, 20 UNIT SQ HS, (Reported) Lisinopril 20 Mg Tablet, 20 MG PO DAILY, (Reported) Metformin HCl 1,000 Mg Tablet, 1,000 MG PO BID, (Reported) Metoprolol Succinate 100 Mg Tab.er.24h, 100 MG PO BID, (Reported) Mineral Oil/Petrolatum,White 3.5 Gm Oint...g., OU HS, (Reported) Mirabegron 50 Mg Tab.er.24h, 50 MG PO DAILY, (Reported) Multivitamin with Minerals 1 Each Tablet, 1 TAB PO DAILY, (Reported) Nitrofurantoin Macrocrystal 100 Mg Capsule, 100 MG PO 1800, (Reported) [place] 3 Polyunsat Fatty Acids 1,000 Mg Cap, 1,000 MG PO TID, (Reported) Polyethylene Glycol 3350 17 Gm Powd.pack, 17 GM PO DAILY PRN for CONSTIPATION- 2ND LINE, (Reported) Polyvinyl Alcohol/Povidone 15 Ml Drops, 2 DROPS OU Q2H PRN for DRY EYES, (Reported) Prasugrel HCl 10 Mg Tablet, 10 MG PO DAILY, (Reported) Primidone 250 Mg Tablet, 250 MG PO TID, (Reported) Ranitidine HCl 150 Mg Tablet, 150 MG PO DAILY PRN for HEARTBURN, (Reported) Solifenacin Succinate 10 Mg Tablet, 10 MG PO 1600, (Reported) Triamcinolone Acet 15 Gm Cr, 15 GM TP BID Prescribed by: SAWYER TELLO on 03/08/19 0931 Venlafaxine HCl 75 Mg Cap.er.24h, 75 MG PO DAILY, (Reported) Warfarin Sodium 4 Mg Tablet, 4 MG PO SuTuThSa@1600, (Reported) Warfarin Sodium 4 Mg Tablet, 2 MG PO MoWeFr@1600, (Reported) Past Fzojokj-Pfmbnw-Xxwumn Hx Patient Social History Alcohol Use: Denies Use Recreational Drug Use: No Smoking Status: Never a Smoker Type Used: Cigarettes Former Smoker, Quit: May 18, 1980 2nd Hand Smoke Exposure: No Recent Foreign Travel: No Contact w/Someone Who Travel: No Recent Infectious Disease Expo: No Recent Hopitalizations: No Physical Abuse: No Sexual Abuse: No Mistreated: No Fear: No Immunizations Up To Date Tetanus Booster (TDap): Unknown PED Vaccines UTD: Yes Date of Pneumonia Vaccine: Feb 13, 2019 Date of Influenza Vaccine: Feb 13, 2019 Seasonal Allergies Seasonal Allergies: No Past Medical History Surgeries: Yes (STENTS PLACED NOVEMBER 2018) Cardiac, Coronary Stent, Eye Surgery, Orthopedic Respiratory: Yes Asthma, Sleep Apnea Currently Using CPAP: Yes Currently Using BIPAP: No Cardiac: Yes Atrial Fibrillation, Chronic Edema/Swelling, Coronary Artery Disease, Deep Vein Thrombosis, Heart Attack, High Cholesterol, Hypertension Neurological: Yes Neuropathy : No 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 Disorders: Yes Female 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 Disorders: 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 Sexually Transmitted Disease: No HIV/AIDS: No Genitourinary: Yes UTI-Chronic Gastrointestinal: Yes Gastroesophageal Reflux, Chronic Constipation Musculoskeletal: Yes Degenerate Disk Disease, Arthritis, Chronic Back Pain Endocrine: Yes (MORBID OBESITY) Diabetes, Insulin dep HEENT: Yes Cataract Loss of Vision: Bilateral Hearing Impairment: Denies Cancer: No Uterine Psychosocial: Yes Anxiety, Depression Integumentary: No Blood Disorders: No Adverse Reaction/Blood Tranf: No Family Medical History Cardiovascular disease 19 FATHER 19 MOTHER Colon cancer 19 FATHER 19 MOTHER Diabetes mellitus 19 MOTHER G8 BROTHER G8 SISTER Myocardial infarction 19 FATHER No Pertinent Family Hx Sepsis Event Evaluation Height, Weight, BMI Height: 5'10.50" Weight: 302lbs. 0.0oz. 136.581564ao; 41.00 BMI Method:Stated Exam Exam Vital Signs Date Time Temp Pulse Resp B/P (MAP) Pulse Ox O2 Delivery O2 Flow Rate FiO2 04/13/19 04:58 110 04/13/19 03:18 116 13 116/78 100 Room Air 04/13/19 02:27 36.6 122 20 132/86 (101) 95 Room Air 04/13/19 02:27 95 Room Air Height & Weight Height: 5'10.50" Weight: 302lbs. 0.0oz. 136.319001ct; 41.00 BMI Method:Stated Capillary Refill: Less Than 3 Seconds Results Lab Laboratory Tests 04/13/19 02:40 Assessment/Plan Assessment/Plan Acute Afib RVR with CP -Cardizem gtt -Cardiology following -Restart home Coumadin Hx of JENNA -Known to my office -She does have CPAP at home TARAH GARVEY DO Apr 13, 2019 06:00 POS
--- NOTE | 2019-04-13 06:10 | Diagnostic Imaging Report ---
INDICATION: Chest pain. COMPARISON: 03/10/2019 FINDINGS: Single view of the chest demonstrates stable slight cardiac enlargement. Lungs are otherwise clear. There is no pneumothorax. Osseous structures normal. IMPRESSION: No acute cardiopulmonary findings. Dictated by: Dictated on workstation # [id number]
[2019-04-13] MEDS: inSUlin ASPART (NovoLOG) 1 UNIT/0.01 ML (CHARGE PER UNIT) SC SCH ×3 (07:00→17:30)
--- NOTE | 2019-04-13 07:00 | NUR ---
PAtient refused insulin and prefers to wait for home meds to be brought in from home.
[2019-04-13] MEDS ORDERED: DRON400T2 PO (11:12)
[2019-04-13] MEDS ORDERED: MIRA50TA PO (11:12)
[2019-04-13] MEDS ORDERED: PRIM250T33 PO (11:12)
[2019-04-13] MEDS ORDERED: OXYC-465 PO (11:32)
--- NOTE | 2019-04-13 11:40 | NUR ---
SPOKE WITH PT WELL GOING THRU THE EXT MED HISTORY AND HER MED BOTTLES FROM HOME TO COMPLETE THE MED REC. PT WAS ABLE TO TELL ME HOW/WHEN SHE TAKES EACH MEDICATION AND THAT MATCHED EITHER THE MED REC OR THE DIRECTIONS ON THE BOTTLES. PT ALSO FILLS AT THE PR. SHE WAS JUST DISCHARGED LAST MONTH AND THE FILL DATES THAT WE HAD ON HER MEDS ARE STILL CURRENT, I WILL LIST THEM BELOW: 12-15-18 CALCIUM 500+D #200 BID 12-05-18 ZYRTEC 10MG DAILY #90 03-09-19 VITAMIN D 1000 #200 2 TABS DAILY 02-12-19 RESTASIS OU BID 11-24-18 FERROUS GLUCONATE 324 DAILY #100 (TAKES @1800) 01-02-19 #10 NOVOLOG 6 UNITS TID AC 03-05-19 LANTUS 20 UNITS HS #3 02-11-19 METFORMIN 1000MG BID #180 02-12-19 REFRESH OINTMENT OU HS 09-01-18 MTV DAILY #100 11-26-18 FISH OIL TID #300 01-11-19 #510 MIRALAX PRN 02-12-19 ARTIFICIAL TEARS OU Q2H 03-01-19 EFFEXOR ER 75MG DAILY #30 PT WAS SWITCHED FROM HYDROCODONE TO OXYCODONE TO CONTROL HER PAIN. Addendum: 04/13/19 at 1350 by PATRIC MCMANUS [facility] SPOKE WITH A NURSE AT [facility] TO VERIFY WHAT PAIN MED THE PT WAS ON. LAST MONTH SHE HAD PICKED UP MORPHINE #60/30DS , HOWEVER THE NURSE LET ME KNOW THE DR STOPPED THAT AND CHANGED IT TO PERCOCET
--- NOTE | 2019-04-13 12:04 | History & Physical-Hospitalist ---
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 Patient is a patient of Dr Russell. Patient was placed on Cardizem drip and currently feels better and we are awaiting the plan from the expertise of Dr Nagy. I have restarted all of her home meds especially the Oxycodone 10mg every 6 hours she takes for the chronic Charcot feet. Source: patient Exam Limitations: no limitations Date Seen 04/13/19 Time Seen by a Provider: 10:30 Attending Physician Tia Tello DO PCP Martin Goode MD Referring Physician Date of Admission Apr 13, 2019 at 03:57 Home Medications & Allergies Home Medications Reviewed patient Home Medication Reconciliation performed by pharmacy medication reconciliations sales service technician and/or nursing. Patients Allergies have been reviewed. Allergies Allergies Coded Allergies amylase (Verified Allergy, Unknown, 08/07/15) black cohosh (Verified Allergy, Unknown, 08/07/15) cellulase (Verified Allergy, Unknown, 08/07/15) glyburide (Verified Allergy, Unknown, 08/07/15) isosorbide (Verified Allergy, Unknown, 08/07/15) lipase (Verified Allergy, Unknown, 08/07/15) protease (Verified Allergy, Unknown, 08/07/15) Past Rucjfbl-Orquig-Tiieap Hx Past Med/Social Hx: Reviewed Nursing Past Med/Soc Hx, Reviewed and Corrections made Patient Social History Marrital Status: single Employed/Student: retired Alcohol Use: Denies Use Recreational Drug Use: No Smoking Status: Never a Smoker Former Smoker, Quit: May 18, 1980 Type Used: Cigarettes 2nd Hand Smoke Exposure: No Recent Foreign Travel: No Contact w/other who traveled: No Recent Hopitalizations: No Recent Infectious Disease Expo: No Immunizations Up To Date Tetanus Booster (TDap): Unknown Pediatric: Yes Date of Pneumonia Vaccine: Feb 13, 2019 Date of Influenza Vaccine: Feb 13, 2019 Seasonal Allergies Seasonal Allergies: No Past Medical History Surgeries: Cardiac, Coronary Stent, Eye Surgery, Orthopedic Respiratory: Asthma Currently Using CPAP: Yes Currently Using BIPAP: No Cardiac: Atrial Fibrillation (Paroxysmal), Chronic Edema/Swelling, Coronary Artery Disease, Deep Vein Thrombosis, Heart Attack, High Cholesterol, Hypertension Neurological: Neuropathy : No 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: Yes Sexually Transmitted Disease: No HIV/AIDS: No Female 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 Disorders: Denies Menopausal Genitourinary: UTI-Chronic Gastrointestinal: Gastroesophageal Reflux, Chronic Constipation Musculoskeletal: Degenerate Disk Disease, Arthritis, Chronic Back Pain Endocrine: Diabetes, Insulin dep HEENT: Cataract Loss of Vision: Bilateral Hearing Impairment: Denies Cancer: Uterine Psychosocial: Anxiety, Depression History of Blood Disorders: No Adverse Reaction to Blood Funez: No Family History Cardiovascular disease 19 FATHER 19 MOTHER Colon cancer 19 FATHER 19 MOTHER Diabetes mellitus 19 MOTHER G8 BROTHER G8 SISTER Myocardial infarction 19 FATHER No Pertinent Family Hx Review of Systems Constitutional: see HPI, weakness Cardiovascular: palpitations Musculoskeletal: back pain, joint pain Physical Exam Physical Exam Vital Signs Vital Signs - First Documented 04/13/19 02:27 Temp 36.6 Pulse 122 Resp 20 B/P (MAP) 132/86 (101) Pulse Ox 95 O2 Delivery Room Air Capillary Refill : Less Than 3 Seconds Height, Weight, BMI Height: 5'10.50" Weight: 302lbs. 0.0oz. 136.038575wd; 41.00 BMI Method:Stated General Appearance: No Apparent Distress, WD/WN, Chronically ill Eyes: Right Eye Normal Inspection, Right Eye PERRL HEENT: PERRL/EOMI, Normal ENT Inspection, Pharynx Normal, Moist Mucous Membranes Neck: Full Range of Motion, Normal Inspection, Non Tender Respiratory: Chest Non Tender, Lungs Clear, Normal Breath Sounds, No Accessory Muscle Use, No Respiratory Distress Cardiovascular: No Edema, No Gallop, No JVD, No Murmur, Normal Peripheral Pulses, Irregularly Irregular, Tachycardia Gastrointestinal: Normal Bowel Sounds, No Organomegaly, No Pulsatile Mass, Non Tender, Soft Back: Normal Inspection, No CVA Tenderness, No Vertebral Tenderness Extremity: Normal Capillary Refill, Normal Inspection, Normal Range of Motion, Non Tender, No Calf Tenderness, No Pedal Edema, Other (bilateral feet deformity) Neurologic/Psychiatric: Alert, Oriented x3, No Motor/Sensory Deficits, Normal Mood/Affect, 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 Assessment/Plan Admission Diagnosis Assessment: AF w/RVR PAF OAC with Coumadin INR 2.1 today CAD s/p stent placement summer 2018 Bilateral Charcot feet on chronic pain meds Neuropathy Polypharmacy DM HTN HLP Plan: Dr Nagy consultation Warfarin maintained Monitor closely Admission Status: Observation Reason for Inpatient Admission: AF w/RVR recurrent and resistant type Diagnosis/Problems Diagnosis/Problems (1) Atrial fibrillation with RVR Status: Acute (2) Charcot foot due to diabetes mellitus (3) Polypharmacy (4) Debility (5) Chronic mental illness Status: Chronic (6) JENNA (obstructive sleep apnea) Status: Chronic (7) Angina pectoris Status: Chronic (8) CAD (coronary artery disease) (9) Stented coronary artery Status: Acute (10) Palpitations Status: Acute (11) IDDM (insulin dependent diabetes mellitus) Status: Acute Clinical Quality Measures DVT/VTE Risk/Contraindication: Risk Factor Score Per Nursin RFS Level Per Nursing on Admit: 4+=Very High TIA TELLO DO Apr 13, 2019 12:04 POS
[2019-04-13] MEDS ORDERED: raNItidine (ZANTAC) 150 MG TAB NON-FORMULARY PO PRN (12:15)
[2019-04-13] MEDS ORDERED: POLYETHYLENE GLYCOL 17 GM (MIRALAX) PACK PO PRN (12:15)
[2019-04-13] MEDS ORDERED: PATIENT MAY USE OWN MEDS, ALL MC SCH (12:30)
[2019-04-13] MEDS ORDERED: METH40VI2 IJ (12:46)
[2019-04-13] MEDS ORDERED: OMEGA 3 (FISH OIL) 1000 MG CAP PO SCH (13:00)
[2019-04-13] MEDS ORDERED: meTOprolol SUCCINATE 100 MG (TOPROL XL) TAB PO SCH (13:15)
[2019-04-13] MEDS ORDERED: ARTIFICAL TEARS 0.4 ML UNIT DOSE (REFRESH PLUS) OU PRN (13:30)
[2019-04-13] MEDS: PRIMIDONE 250MG (MYSOLINE) TAB PO SCH ×2 (14:45→20:53)
[2019-04-13] MEDS: [UNRECOGNIZED DRUG - REMARK] PO SCH ×3 (14:45→20:54)
[2019-04-13] MEDS: CYCLOBENZAPRINE 10 MG (FLEXERIL) TAB PO SCH ×2 (14:45→20:55)
[2019-04-13] MEDS ORDERED: ASPIRIN 81 MG CHEW (CHILDREN'S ASA) ONE (15:11)
[2019-04-13] MEDS ORDERED: PRASUGREL 10 MG (EFFIENT) TABLET PO STA (15:16)
[2019-04-13] MEDS ORDERED: ASPIRIN 81 MG CHEW (CHILDREN'S ASA) PO ONE (15:30)
[2019-04-13] MEDS ORDERED: inSUlin ASPART (NovoLOG) 1 UNIT/0.01 ML (CHARGE PER UNIT) SQ SCH (16:00)
[2019-04-13] MEDS ORDERED: WARFARIN SODIUM 2 MG PO SCH (16:00)
--- NOTE | 2019-04-13 16:47 | Consultation-Cardiology ---
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 She has chronic pains that include back and feet and shoulders and chest. These vary from mild to severe and are responsive only to narcotic analgesics and generally last several hours w/o any particular aggravating or relieving factors. She has chronic exertional shortness of breath and chronic, mild, intermittent leg swelling. Review of Systems-Cardiology Review of Systems Constitutional: As described under HPI Eyes: No vision change Ears/Nose/Throat: No nasal drainage, No recent hearing loss, No ulcerations Respiratory: As described under HPI Cardiovascular: As described under HPI Gastrointestinal: No diarrhea, No nausea, No vomiting Genitourinary: No dysuria, No hematuria, No urine frequency changes Musculoskeletal: As describe under HPI Skin: No rash, No ulcerations Psychiatric/Neurological: No seizure, No focal weakness, No syncope Hematologic: No bleeding abnormalities UEM-Updcle-Arbteh Hx Patient Social History Marrital Status: single Employed/Student: retired Alcohol Use: Denies Use Recreational Drug Use: No Smoking Status: Never a Smoker Former smoker/When Quit: Aug 07, 1980 Type Used: Cigarettes 2nd Hand Smoke Exposure: No Recent Foreign Travel: No Recent Infectious Disease Expo: No Hospitalization with Isolation: Denies Immunizations Up To Date Tetanus Booster (TDap): Unknown Date of Pneumonia Vaccine: Feb 13, 2019 Date of Influenza Vaccine: Feb 13, 2019 Past Medical History PMH As described under Assessment. Family Medical History Family History: Cardiovascular disease 19 FATHER 19 MOTHER Colon cancer 19 FATHER 19 MOTHER Diabetes mellitus 19 MOTHER G8 BROTHER G8 SISTER Myocardial infarction 19 FATHER Allergies and Home Medications Allergies Coded Allergies: amylase (Verified Allergy, Unknown, 08/07/15) black cohosh (Verified Allergy, Unknown, 08/07/15) cellulase (Verified Allergy, Unknown, 08/07/15) glyburide (Verified Allergy, Unknown, 08/07/15) isosorbide (Verified Allergy, Unknown, 08/07/15) lipase (Verified Allergy, Unknown, 08/07/15) protease (Verified Allergy, Unknown, 08/07/15) Home Medications Atorvastatin Calcium 80 Mg Tablet, 80 MG PO HS, (Reported) Calcium Carbonate/Vitamin D3 1 Each Tablet, 1 TAB PO BID, (Reported) Cetirizine HCl 10 Mg Tablet, 10 MG PO DAILY, (Reported) Cholecalciferol (Vitamin D3) 1,000 Unit Capsule, 2,000 UNIT PO 1200, (Reported) Cyclobenzaprine HCl 10 Mg Tablet, 10 MG PO TID, (Reported) Cyclosporine 1 Each Droperette, 1 DROP OU BID, (Reported) Diltiazem HCl 240 Mg Cap.er.24h, 240 MG PO DAILY, (Reported) Dronedarone HCl 400 Mg Tablet, 400 MG PO BID, (Reported) Ferrous Sulfate 325 Mg Tablet, 325 MG PO 1800, (Reported) Fluticasone/Vilanterol 1 Each Blst.w.dev, 1 PUFF INH DAILY, (Reported) Gabapentin 800 Mg Tablet, 800 MG PO QID, (Reported) Glucosamine/D3/Boswellia Nellie 1 Each Tablet, 1 TAB PO BID, (Reported) Imipramine HCl 50 Mg Tablet, 50 MG PO HS, (Reported) Insulin Aspart 300 Units/3 Ml Solution, 6 UNITS SQ TIDAC, (Reported) Insulin Glargine,Hum.rec.anlog 100 Unit/1 Ml Vial, 20 UNIT SQ HS, (Reported) Lisinopril 20 Mg Tablet, 20 MG PO DAILY, (Reported) Metformin HCl 1,000 Mg Tablet, 1,000 MG PO BID, (Reported) Methylprednisolone Sod Succ/Pf 40 Mg/1 Ml Vial, 20 MG IJ Q12H, (Reported) Metoprolol Succinate 100 Mg Tab.er.24h, 100 MG PO BID, (Reported) Mineral Oil/Petrolatum,White 3.5 Gm Oint...g., OU HS, (Reported) Mirabegron 50 Mg Tab.er.24h, 50 MG PO DAILY, (Reported) Multivitamin with Minerals 1 Each Tablet, 1 TAB PO DAILY, (Reported) Nitrofurantoin Macrocrystal 100 Mg Capsule, 100 MG PO 1800, (Reported) [place] 3 Polyunsat Fatty Acids 1,000 Mg Cap, 1,000 MG PO TID, (Reported) Oxycodone HCl/Acetaminophen 1 Each Tablet, 1 EACH PO Q6H PRN for PAIN-MODERATE (5-7), (Reported) Polyethylene Glycol 3350 17 Gm Powd.pack, 17 GM PO DAILY PRN for CONSTIPATION- 2ND LINE, (Reported) Polyvinyl Alcohol/Povidone 15 Ml Drops, 2 DROPS OU Q2H PRN for DRY EYES, (Reported) Prasugrel HCl 10 Mg Tablet, 10 MG PO DAILY, (Reported) Primidone 250 Mg Tablet, 250 MG PO TID, (Reported) Ranitidine HCl 150 Mg Tablet, 150 MG PO DAILY PRN for HEARTBURN, (Reported) Solifenacin Succinate 10 Mg Tablet, 10 MG PO 1600, (Reported) Triamcinolone Acet 15 Gm Cr, 15 GM TP BID Prescribed by: TIA TELLO on 03/08/19 09 Venlafaxine HCl 75 Mg Cap.er.24h, 75 MG PO DAILY, (Reported) Warfarin Sodium 4 Mg Tablet, 4 MG PO SuTuThSa@1600, (Reported) Warfarin Sodium 4 Mg Tablet, 2 MG PO MoWeFr@1600, (Reported) Patient Home Medication List Home Medication List Reviewed: Yes Physical Exam-Cardiology Physical Exam Vital Signs/I&O 04/13/19 04/13/19 04/13/19 04/13/19 04:45 04:56 04:58 05:04 Temp 36.6 36.2 Pulse 101 106 110 92 Resp 18 11 11 B/P (MAP) 99/67 (91) 117/94 (102) 125/85 (98) Pulse Ox 100 98 99 O2 Delivery Room Air Room Air Room Air 04/13/19 04/13/19 04/13/19 04/13/19 05:15 05:30 05:45 06:00 Pulse 92 109 105 92 Resp 11 15 11 13 B/P (MAP) 109/72 (84) 89/76 (80) 98/74 (82) 104/70 (81) Pulse Ox 97 96 96 95 O2 Delivery Room Air Room Air Room Air Room Air 04/13/19 04/13/19 04/13/19 04/13/19 06:15 06:30 06:45 07:00 Pulse 94 108 94 94 Resp 16 19 16 B/P (MAP) 106/75 (85) 110/61 (77) 110/78 (89) Pulse Ox 92 93 95 O2 Delivery Room Air Room Air Room Air 04/13/19 04/13/19 04/13/19 04/13/19 07:00 08:00 08:00 09:00 Pulse 103 114 94 Resp 19 10 14 B/P (MAP) 93/67 (76) 108/79 (89) 119/69 (86) Pulse Ox 97 95 96 96 O2 Delivery Room Air Room Air Room Air Room Air 04/13/19 04/13/19 04/13/19 04/13/19 10:00 11:00 12:00 12:00 Pulse 99 96 97 Resp 16 10 15 B/P (MAP) 122/76 (91) 120/80 (93) 132/76 (94) Pulse Ox 94 98 96 94 O2 Delivery Room Air Room Air Room Air Room Air 04/13/19 04/13/19 04/13/19 04/13/19 12:32 13:00 14:00 14:14 Pulse 102 82 104 99 Resp 14 19 16 B/P (MAP) 123/79 (94) 125/72 (89) 122/76 (91) Pulse Ox 96 98 94 O2 Delivery Room Air Room Air Room Air 04/13/19 04/13/19 16:00 16:00 Pulse 97 Resp 15 B/P (MAP) 132/76 (94) Pulse Ox 94 96 O2 Delivery Room Air Room Air Capillary Refill : Less Than 3 Seconds Constitutional: AAO x 3, well-developed, well-nourished HEENT: EOMI, hearing is well preserved; No xanthelasmas are seen Neck: carotid pulses are 2 + bilaterally, with good upstrokes Respiratory: No accessory muscle use; other (fair to good bilateral air entry, diminshed at the bases) Cardiovascular: regular rate-rhythm, S1 and S2, systolic murmur Gastrointestinal: No tender, No guarding, No rebound; audible bowel sounds Extremities: No clubbing, No cyanosis, No significant edema Neurologic/Psychiatric: oriented x 3, other (moves all limbs equally) Skin: No rash on exposed areas, No ulcerations on exposed areas Data Review Labs Laboratory Tests 04/13/19 02:40: White Blood Count 7.6, Red Blood Count 4.31L, Hemoglobin 12.1, Hematocrit 37, Mean Corpuscular Volume 87, Mean Corpuscular Hemoglobin 28, Mean Corpuscular Hemoglobin Concent 32, Red Cell Distribution Width 15.7H, Platelet Count 289, Mean Platelet Volume 9.8, Neutrophils (%) (Auto) 44, Lymphocytes (%) (Auto) 41, Monocytes (%) (Auto) 10, Eosinophils (%) (Auto) 5, Basophils (%) (Auto) 0, Neutrophils # (Auto) 3.4, Lymphocytes # (Auto) 3.1, Monocytes # (Auto) 0.8, Eosinophils # (Auto) 0.4H, Basophils # (Auto) 0.0, Prothrombin Time 24.3H, INR Comment 2.1H, Activated Partial Thromboplast Time 35, Sodium Level 141, Potassium Level 4.2, Chloride Level 104, Carbon Dioxide Level 23, Anion Gap 14, Blood Urea Nitrogen 18, Creatinine 0.82, Estimat Glomerular Filtration Rate > 60, BUN/Creatinine Ratio 22, Glucose Level 132H, Calcium Level 9.1, Corrected Calcium 9.2, Magnesium Level 1.7, Total Bilirubin 0.1, Aspartate Amino Transf (AST/SGOT) 25, Alanine Aminotransferase (ALT/SGPT) 35, Alkaline Phosphatase 145H , Myoglobin 17.4, Troponin I < 0.028, Total Protein 7.3, Albumin 3.9, TSH [place] Testing 2.64 04/13/19 06:45: Troponin I < 0.028 Laboratory Tests 04/13/19 02:40 A/P-Cardiology Assessment/Admission Diagnosis PAF with RVR Stroke prophylaxis with warfarin. Pt reports she had been on Pradaxa, but was found to have an LA thrombus on echo in 2018 while on Pradaxa and, therefore, felt to be a nonresponder to Pradaxa Coronary artery disease, s/p mid-LAD stenting with Resolute Integrity 2.5 x [address] Russell History of DVT Hypertension Hyperlipidemia Echo of 03/07/19: normal left ventricle size and ejection fraction 55-65 percent, grade 2 hazel dysfunction, mildly dilated left atrium, mild MR, PA 30-35 mmHg Mild obstructive sleep apnea, followed and managed by Dr. Colmenares Diabetes mellitus II Obesity with obesity-hypoventilation and JENNA Chronic pain syndrome Discussion and Recomendations * Continue therapy with CCB, BB and dronedarone * Continue stroke prophylaxis with warfarin * Continue prasugrel for recent cor stent * Add low dose ASA back to regimen until ACS excluded and INR stable Clinical Quality Measures DVT/VTE Risk/Contraindication: Risk Factor Score Per Nursin RFS Level Per Nursing on Admit: 4+=Very High MEIR CALDWELL MD FACP FAC CCDS Apr 13, 2019 16:47 POS
[2019-04-13] MEDS: OMEGA 3 (FISH OIL) 1000 MG CAP PO SCH (17:00)
[2019-04-13] MEDS: metFORMIN 500 MG (GLUCOPHAGE) TAB PO SCH (17:30)
[2019-04-13] MEDS: FERROUS GLUCONATE 324 MG PO SCH (17:50)
[2019-04-13] MEDS ORDERED: warFARin 5 MG (COUMADIN) TAB PO SCH (18:00)
[2019-04-13] MEDS ORDERED: WARFARIN 2MG TABLET PO SCH (18:00)
[2019-04-13] MEDS: FAMOTIDINE 20 MG (PEPCID) TABLET PO SCH (20:49)
[2019-04-13] MEDS: meTOprolol SUCCINATE 100 MG (TOPROL XL) TAB PO SCH (20:51)
[2019-04-13] MEDS: TRIAMCINOLONE 0.1% CR (KENALOG) 15 GM TUBE TP SCH (20:51)
[2019-04-13] MEDS: [UNRECOGNIZED DRUG - OTHER] PO SCH (20:52)
[2019-04-13] MEDS: NITROFURANTOIN 100 MG (MACROBID) CAPSULE PO SCH (20:52)
[2019-04-13] MEDS: VITAMIN D3 PO SCH (20:52)
[2019-04-13] MEDS: CALCIUM CARBONATE PO SCH (20:52)
[2019-04-13] MEDS: DRONEDARONE TABLET 400 MG TABLET PO SCH (20:54)
[2019-04-13] MEDS: IMIPRAMINE HCL 50 MG PO SCH (20:56)
[2019-04-13] MEDS: Cyclosporine (Restasis) 1 DROP OU SCH (20:59)
[2019-04-13] MEDS: INSULIN GLARGINE SQ SCH (20:59)
[2019-04-13] MEDS: oxyCODONE/APAP 10/325MG (PERCOCET 10) TABLET PO PRN (21:13)
[2019-04-14] VITALS (16 sets, daily range): BP systolic 100–133; BP diastolic 67–95
[2019-04-14] MEDS: DILTIAZEM 125 MG/NS 100 ML IV SCH ×4 (02:27→05:33)
--- NOTE | 2019-04-14 03:15 | NUR ---
PT CONVERTED TO ST, EKG OBTAINED
[2019-04-14 03:45] LABS: BASOPHILS % (AUTO) 0 % (0-10); EOSINOPHILS # (AUTO) 0.4 10^3/uL (0.0-0.3); EOSINOPHILS % (AUTO) 5 % (0-10); HEMATOCRIT 38 % (35-52); HEMOGLOBIN 12.2 G/DL (11.5-16.0); LYMPHOCYTES # (AUTO) 3.3 X 10^3 (1.0-4.0); LYMPHOCYTES % (AUTO) 45 % (12-44); MEAN CORPUSCULAR HEMOGLOBIN 28 PG (25-34); MEAN CORPUSCULAR HGB CONC 32 G/DL (32-36); MEAN CORPUSCULAR VOLUME 86 FL (80-99); MONOCYTES # (AUTO) 0.7 X 10^3 (0.0-1.0); MONOCYTES % (AUTO) 10 % (0-12); NEUTROPHILS % (AUTO) 41 % (42-75); PLATELET COUNT 286 10^3/uL (130-400); RED CELL DISTRIBUTION WIDTH 16.4 % (10.0-14.5); WHITE BLOOD COUNT 7.3 10^3/uL (4.3-11.0)
[2019-04-14 03:56] LABS: INR 2.1 (0.8-1.4); PROTHROMBIN TIME PATIENT 24.7 SEC (12.2-14.7)
[2019-04-14 04:05] LABS: BUN/CREATININE RATIO 24; CALCIUM 9.1 MG/DL (8.5-10.1); CARBON DIOXIDE 23 MMOL/L (21-32); CHLORIDE 109 MMOL/L (98-107); CHOLESTEROL 107 MG/DL (< 200); GFR ESTIMATED > 60; GLUCOSE 101 MG/DL (70-105); HDL CHOLESTEROL 48 MG/DL (40-60); MAGNESIUM 1.8 MG/DL (1.6-2.4); PHOSPHORUS 4.1 MG/DL (2.3-4.7); POTASSIUM 4.3 MMOL/L (3.6-5.0); SODIUM 143 MMOL/L (135-145); TRIGLYCERIDES 61 MG/DL (<150); VLDL CHOLESTEROL 12 MG/DL (5-40)
[2019-04-14] MEDS ORDERED: MAGNESIUM 1 GM/100 ML IVPB 100 ML IV SCH (06:00)
[2019-04-14] MEDS ORDERED: KCL 20 MEQ TAB (K-DUR) PO SCH (06:00)
[2019-04-14] MEDS ORDERED: POTASSIUM CL 10MEQ/50ML IVPB 50 ML IV SCH (06:00)
--- NOTE | 2019-04-14 06:29 | Pulmonary Progress Note ---
Subjective Time Seen by a Provider: 06:25 Subjective/Events-last exam Pt is still on Cardizem gtt Sepsis Event Evaluation Height, Weight, BMI Height: 5'10.50" Weight: 302lbs. 0.0oz. 136.661369ns; 41.00 BMI Method:Stated Exam Exam Vital Signs Date Time Temp Pulse Resp B/P (MAP) Pulse Ox O2 Delivery O2 Flow Rate FiO2 04/14/19 06:00 118 15 125/86 (99) 97 Room Air 04/14/19 05:00 117 12 112/79 (90) 97 Room Air 04/14/19 04:00 96 NIV CPAP 04/14/19 04:00 116 19 106/81 (89) 95 Room Air 04/14/19 03:00 116 104/75 (85) 95 Room Air 04/14/19 02:27 98 99/58 04/14/19 02:27 110 04/14/19 02:00 92 7 103/67 (79) 96 Room Air 04/14/19 01:00 106 100/74 (83) 96 Room Air 04/14/19 00:52 106 04/14/19 00:00 96 Room Air 04/14/19 00:00 97 13 119/78 (92) 97 Room Air 04/14/19 00:00 36.0 04/13/19 23:00 99 11 105/80 (88) 98 Room Air 04/13/19 22:00 86 94/70 (78) 97 Room Air 04/13/19 21:00 89 117/84 (95) 99 Room Air 04/13/19 20:15 96 112/80 (91) 96 Room Air 04/13/19 20:00 96 Room Air 04/13/19 20:00 35.9 04/13/19 19:00 114 96 Room Air 04/13/19 18:50 124 04/13/19 18:00 122 27 95 Room Air 04/13/19 17:00 128 15 98 Room Air 04/13/19 16:00 96 Room Air 04/13/19 16:00 97 15 132/76 (94) 94 Room Air 04/13/19 14:14 99 16 122/76 (91) 94 Room Air 04/13/19 14:00 104 19 125/72 (89) 98 Room Air 04/13/19 13:00 82 14 123/79 (94) 96 Room Air 04/13/19 12:32 102 04/13/19 12:00 97 15 132/76 (94) 94 Room Air 04/13/19 12:00 96 Room Air 04/13/19 11:00 96 10 120/80 (93) 98 Room Air 04/13/19 10:00 99 16 122/76 (91) 94 Room Air 04/13/19 09:00 94 14 119/69 (86) 96 Room Air 04/13/19 08:00 96 Room Air 04/13/19 08:00 114 10 108/79 (89) 95 Room Air 04/13/19 07:00 103 19 93/67 (76) 97 Room Air 04/13/19 07:00 94 04/13/19 06:45 94 16 110/78 (89) 95 Room Air 04/13/19 06:30 108 19 110/61 (77) 93 Room Air I & O 04/14/19 07:00 Intake Total 1325 ml Output Total 1000 ml Balance 325 ml Height & Weight Height: 5'10.50" Weight: 302lbs. 0.0oz. 136.288328ab; 41.00 BMI Method:Stated General Appearance: No Apparent Distress, WD/WN, Chronically ill HEENT: PERRL/EOMI, Normal ENT Inspection, Pharynx Normal, Moist Mucous Membranes Neck: Full Range of Motion, Normal Inspection, Non Tender Respiratory: Chest Non Tender, Lungs Clear, Normal Breath Sounds, No Accessory Muscle Use, No Respiratory Distress Cardiovascular: No Edema, No Gallop, No JVD, No Murmur, Normal Peripheral Pulses, Irregularly Irregular, Tachycardia Capillary Refill: Less Than 3 Seconds Extremity: Normal Capillary Refill, Normal Inspection, Normal Range of Motion, Non Tender, No Calf Tenderness, No Pedal Edema, Other (bilateral feet deformity) Neurologic/Psychiatric: Alert, Oriented x3, No Motor/Sensory Deficits, Normal 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
[2019-04-14] MEDS: metFORMIN 500 MG (GLUCOPHAGE) TAB PO SCH (06:57)
[2019-04-14] MEDS: OMEGA 3 (FISH OIL) 1000 MG CAP PO SCH ×3 (06:57→16:51)
[2019-04-14] MEDS: inSUlin ASPART (NovoLOG) 1 UNIT/0.01 ML (CHARGE PER UNIT) SC SCH ×3 (06:57→17:11)
--- NOTE | 2019-04-14 07:23 | Diagnostic Imaging Report ---
Indication: Atrial fib, chest pain. Comparison: 04/13/2019 FIndings: Single view of the chest demonstrates clear lungs bilaterally. The heart is normal. No pneumothorax. Osseous structures are normal. Impression: Negative chest. Dictated by: Dictated on workstation # [id number]
[2019-04-14] MEDS: Cyclosporine (Restasis) 1 DROP OU SCH ×2 (09:00→19:46)
[2019-04-14] MEDS: MULTIVIT W/MINERALS TAB (THERAGRAN M) PO SCH (09:00)
[2019-04-14] MEDS: meTOprolol SUCCINATE 100 MG (TOPROL XL) TAB PO SCH ×2 (09:30→19:39)
[2019-04-14] MEDS: TRIAMCINOLONE 0.1% CR (KENALOG) 15 GM TUBE TP SCH ×2 (09:30→19:44)
[2019-04-14] MEDS: [UNRECOGNIZED DRUG - REMARK] PO SCH ×4 (09:30→19:39)
[2019-04-14] MEDS: CALCIUM CARBONATE PO SCH ×2 (09:30→19:43)
[2019-04-14] MEDS: FAMOTIDINE 20 MG (PEPCID) TABLET PO SCH ×2 (09:30→19:49)
[2019-04-14] MEDS: lisINopril 20 MG (PRINIVIL) TABLET PO SCH (09:30)
[2019-04-14] MEDS: VENlafaxine XR 75 MG (EFFEXOR XR) CAP PO SCH (09:30)
[2019-04-14] MEDS: PRASUGREL 10 MG (EFFIENT) TABLET PO SCH (09:30)
[2019-04-14] MEDS: PRIMIDONE 250MG (MYSOLINE) TAB PO SCH ×3 (09:30→19:44)
[2019-04-14] MEDS: DILTIAZEM 240 MG (CARDIZEM CD) CAP PO SCH (09:30)
[2019-04-14] MEDS: ceTIRizine 10 MG (ZyrTEC) TAB NON-FORMULARY PO SCH (09:30)
[2019-04-14] MEDS: DRONEDARONE TABLET 400 MG TABLET PO SCH ×2 (09:30→19:41)
[2019-04-14] MEDS: [UNRECOGNIZED DRUG - OTHER] PO SCH ×2 (09:30→19:43)
[2019-04-14] MEDS: ASPIRIN 81 MG CHEW (CHILDREN'S ASA) PO SCH (09:30)
[2019-04-14] MEDS: CYCLOBENZAPRINE 10 MG (FLEXERIL) TAB PO SCH ×3 (09:30→19:40)
[2019-04-14] MEDS: VITAMIN D3 PO SCH ×2 (09:30→19:43)
[2019-04-14] MEDS: CHOLECALCIFEROL PO SCH (12:00)
--- NOTE | 2019-04-14 12:21 | Progress Note - Cardiology ---
Cardiology SOAP Progress Note Subjective: No cp or palp or syncope Chronic, exertional shortness of breath Gen malaise and weakness present Objective: I&O/Vital Signs 04/14/19 04/14/19 04/14/19 04/14/19 00:52 01:00 02:00 02:27 Pulse 106 106 92 110 Resp 7 B/P (MAP) 100/74 (83) 103/67 (79) Pulse Ox 96 96 O2 Delivery Room Air Room Air 04/14/19 04/14/19 04/14/19 04/14/19 02:27 03:00 04:00 04:00 Pulse 98 116 116 Resp 19 B/P (MAP) 99/58 104/75 (85) 106/81 (89) Pulse Ox 95 95 96 O2 Delivery Room Air Room Air NIV CPAP 04/14/19 04/14/19 04/14/19 04/14/19 05:00 06:00 07:00 07:00 Pulse 117 118 78 78 Resp 12 15 16 B/P (MAP) 112/79 (90) 125/86 (99) 132/95 (107) Pulse Ox 97 97 97 O2 Delivery Room Air Room Air Room Air 04/14/19 04/14/19 04/14/19 04/14/19 08:00 08:00 09:00 10:00 Pulse 78 86 118 Resp 20 20 15 B/P (MAP) 122/77 (92) 127/76 (93) 125/86 (99) Pulse Ox 97 97 96 97 O2 Delivery Room Air Room Air Room Air Room Air 04/14/19 11:00 Pulse 82 Resp 14 B/P (MAP) 132/79 (96) Pulse Ox 99 O2 Delivery Room Air 04/14/19 00:00 Intake Total 900 ml Output Total 1000 ml Balance -100 ml Weight (Pounds): 302 Weight (Ounces): 0.0 Weight (Calculated Kilograms): 136.155450 Constitutional: AAO x 3, well-developed, well-nourished Respiratory: No accessory muscle use; other (fair to good bilateral air entry, diminshed at the bases) Cardiovascular: regular rate-rhythm, S1 and S2, systolic murmur Gastrointestional: No tender, No guarding, No rebound; audible bowel sounds Extremities: No clubbing, No cyanosis, No significant edema Neurologic/Psychiatric: oriented x 3, other (moves all limbs equally) Skin: No rash on exposed areas, No ulcerations on exposed areas Results/Procedures: Labs Laboratory Tests 04/14/19 03:34: White Blood Count 7.3, Red Blood Count 4.44, Hemoglobin 12.2, Hematocrit 38, Mean Corpuscular Volume 86, Mean Corpuscular Hemoglobin 28, Mean Corpuscular Hemoglobin Concent 32, Red Cell Distribution Width 16.4H, Platelet Count 286, Mean Platelet Volume 10.0, Neutrophils (%) (Auto) 41L, Lymphocytes (%) (Auto) 45H, Monocytes (%) (Auto) 10, Eosinophils (%) (Auto) 5, Basophils (%) (Auto) 0, Neutrophils # (Auto) 3.0, Lymphocytes # (Auto) 3.3, Monocytes # (Auto) 0.7, Eosinophils # (Auto) 0.4H, Basophils # (Auto) 0.0, Prothrombin Time 24.7H, INR Comment 2.1H, Sodium Level 143, Potassium Level 4.3, Chloride Level 109H, Carbon Dioxide Level 23, Anion Gap 11, Blood Urea Nitrogen 17, Creatinine 0.70, Estimat Glomerular Filtration Rate > 60, BUN/Creatinine Ratio 24, Glucose Level 101, Calcium Level 9.1, Phosphorus Level 4.1, Magnesium Level 1.8, Triglycerides Level 61, Cholesterol Level 107, LDL Cholesterol Direct 41, VLDL Cholesterol 12, HDL Cholesterol 48 Laboratory Tests 04/13/19 02:40 04/14/19 03:34 A/P: Assessment: PAF with RVR, now NSR Stroke prophylaxis with warfarin. Pt reports she had been on Pradaxa, but was found to have an LA thrombus on echo in 2018 while on Pradaxa and, therefore, felt to be a nonresponder to Pradaxa Coronary artery disease, s/p mid-LAD stenting with Resolute Integrity 2.5 x 26 [place] [address] Russell History of DVT Hypertension Hyperlipidemia Echo of 03/07/19: normal left ventricle size and ejection fraction 55-65 percent, grade 2 hazel dysfunction, mildly dilated left atrium, mild MR, PA 30-35 mmHg Mild obstructive sleep apnea, followed and managed by Dr. Colmenares Diabetes mellitus II Obesity with obesity-hypoventilation and JENNA Chronic pain syndrome Plan: * Continue therapy with CCB, BB and dronedarone. Switched from iv to oral CCB today * Continue stroke prophylaxis with warfarin. INR remains therapeutic * Continue prasugrel for recent cor stent * Was given ASA during this admission, will stop because she is on both Effient and warfarin (with therapeutic) INR and it has been more than 3 months since last cor stent. 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
--- NOTE | 2019-04-14 12:28 | Progress Note - Hospitalist ---
Subjective HPI/CC On Admission Date Seen by Provider: Apr 14, 2019 Time Seen by Provider: 11:30 CC: AF w/RVR HPI: This is a 68yoWF clinic patient of Dr Goode [facility] known to me from multiple hospital stays including CAD w/p stent placement this summer and AF maintained on OAC and rate controllers who presented to the ER rim turning finisher due to fluttering in her chest and was found to have AF w/RVR with HR of 120's. Patient is a patient of Dr Russell. Patient was placed on Cardizem drip and currently feels better and we are awaiting the plan from the expertise of Dr Nagy. I have restarted all of her home meds especially the Oxycodone 10mg every 6 hours she takes for the chronic Charcot feet. Subjective/Events-last exam NSR conversion occurred at 0300 Very somatic Changed to inpatient this morning Patient self reports she has low threshold for pain Patient is on a large amount to narcotics for chronic pain Patient reports no BM yet Reviewed labs INR therapeutic Review of Systems General: Fatigue Musculoskeletal: leg pain Objective Exam Vital Signs Vital Signs Date Time Temp Pulse Resp B/P (MAP) Pulse Ox O2 Delivery O2 Flow Rate FiO2 04/14/19 13:29 Room Air 04/14/19 13:12 36.4 76 20 126/68 (87) 100 Capillary Refill : Less Than 3 Seconds General Appearance: No Apparent Distress, WD/WN Respiratory: Chest Non Tender, Lungs Clear, Normal Breath Sounds, No Accessory Muscle Use, No Respiratory Distress Cardiovascular: Regular Rate, Rhythm, No Edema, No Gallop, No JVD, No Murmur, Normal Peripheral Pulses Neurologic/Psychiatric: Alert, Oriented x3, No Motor/Sensory Deficits, Normal Mood/Affect Results/Procedures Lab Laboratory Tests 04/14/19 03:34 Patient resulted labs reviewed. Assessment/Plan Assessment and Plan Assess & Plan/Chief Complaint Assessment: AF w/RVR now NSR converted at 0300 today PAF OAC with Coumadin INR 2.1 today CAD s/p stent placement summer 2018 Bilateral Charcot feet on chronic pain meds Neuropathy Polypharmacy DM HTN HLP Difficulty with coping Plan: Dr Nagy consultation Warfarin maintained Monitor closely Tx to 4th floor Very somatic and she states she has low threshold for pain DC tomorrow? Diagnosis/Problems Diagnosis/Problems (1) Atrial fibrillation with RVR Status: Acute (2) Charcot foot due to diabetes mellitus (3) Polypharmacy (4) Debility (5) Chronic mental illness Status: Chronic (6) JENNA (obstructive sleep apnea) Status: Chronic (7) Angina pectoris Status: Chronic (8) CAD (coronary artery disease) (9) Stented coronary artery Status: Acute (10) Palpitations Status: Acute (11) IDDM (insulin dependent diabetes mellitus) Status: Acute Clinical Quality Measures DVT/VTE Risk/Contraindication: Risk Factor Score Per Nursin RFS Level Per Nursing on Admit: 4+=Very High SAWYER TELLO DO Apr 14, 2019 12:28 POS
[2019-04-14] MEDS: oxyCODONE/APAP 10/325MG (PERCOCET 10) TABLET PO PRN ×2 (12:30→22:22)
[2019-04-14] MEDS ORDERED: hydrOXYzine (ATARAX) 10 MG TAB PO PRN (12:30)
--- NOTE | 2019-04-14 13:32 | NUR ---
REPORT RECIEVED FROM SURAJ ZAPATA. PT ARRIVED IN ROOM 415 VIA W/C AND TRANSPORTED TO [facility] WITH [facility]. PT MEDS AT BEDSIDE AND NARCS LOCKED UP. PT STATES PAIN IS 7/10 AND NEVER GOES BELOW THIS DESPITE TAKING OXYCODONE. THIS WAS GIVEN BY SOCIOCULTURAL ANTHROPOLOGY PROFESSOR PRIOR TO TRANSPORT. PT HAS NO OTHER COMPLAINTS.
[2019-04-14] MEDS ORDERED: NON-FORMULARY MEDICATION 1 EA EA (Warfarin Sodium 4 MG) PO SCH (16:00)
[2019-04-14] MEDS: Fluticasone/Vilanterol (Breo Ellipta 200-25 Mcg INH) INH SCH (16:46)
[2019-04-14] MEDS: FERROUS GLUCONATE 324 MG PO SCH (16:57)
[2019-04-14] MEDS: NITROFURANTOIN 100 MG (MACROBID) CAPSULE PO SCH (17:01)
[2019-04-14] MEDS ORDERED: WARFARIN 4 MG PO SCH (18:00)
[2019-04-14] MEDS: IMIPRAMINE HCL 50 MG PO SCH (19:41)
[2019-04-14] MEDS: INSULIN GLARGINE SQ SCH (21:26)
[2019-04-15] VITALS: BP 152/84
[2019-04-15 04:00] VITALS: BP 135/79
[2019-04-15 06:16] LABS: BASOPHILS % (AUTO) 0 % (0-10); EOSINOPHILS # (AUTO) 0.4 10^3/uL (0.0-0.3); EOSINOPHILS % (AUTO) 5 % (0-10); HEMATOCRIT 34 % (35-52); HEMOGLOBIN 10.9 G/DL (11.5-16.0); LYMPHOCYTES # (AUTO) 3.2 X 10^3 (1.0-4.0); LYMPHOCYTES % (AUTO) 44 % (12-44); MEAN CORPUSCULAR HEMOGLOBIN 28 PG (25-34); MEAN CORPUSCULAR HGB CONC 32 G/DL (32-36); MEAN CORPUSCULAR VOLUME 87 FL (80-99); MEAN PLATELET VOLUME 9.7 FL (7.4-10.4); MONOCYTES # (AUTO) 0.8 X 10^3 (0.0-1.0); MONOCYTES % (AUTO) 11 % (0-12); NEUTROPHILS # (AUTO) 2.8 X 10^3 (1.8-7.8); NEUTROPHILS % (AUTO) 39 % (42-75); PLATELET COUNT 257 10^3/uL (130-400); RED CELL DISTRIBUTION WIDTH 15.9 % (10.0-14.5); WHITE BLOOD COUNT 7.2 10^3/uL (4.3-11.0)
[2019-04-15 06:30] LABS: INR 1.9 (0.8-1.4); PROTHROMBIN TIME PATIENT 22.7 SEC (12.2-14.7)
[2019-04-15 06:41] LABS: ALANINE AMINOTRANSFERASE 32 U/L (0-55); ALBUMIN 3.4 GM/DL (3.2-4.5); ALKALINE PHOSPHATASE 113 U/L (40-136); BILIRUBIN,TOTAL 0.1 MG/DL (0.1-1.0); BUN/CREATININE RATIO 30; CALCIUM 8.8 MG/DL (8.5-10.1); CARBON DIOXIDE 25 MMOL/L (21-32); CHLORIDE 105 MMOL/L (98-107); GFR ESTIMATED > 60; GLUCOSE 83 MG/DL (70-105); POTASSIUM 4.1 MMOL/L (3.6-5.0); SODIUM 142 MMOL/L (135-145); TOTAL PROTEIN 6.3 GM/DL (6.4-8.2)
[2019-04-15 08:00] VITALS: BP 138/82
[2019-04-15] MEDS: lisINopril 20 MG (PRINIVIL) TABLET PO SCH (08:26)
[2019-04-15] MEDS: ceTIRizine 10 MG (ZyrTEC) TAB NON-FORMULARY PO SCH (08:27)
[2019-04-15] MEDS: meTOprolol SUCCINATE 100 MG (TOPROL XL) TAB PO SCH (08:29)
[2019-04-15] MEDS: DILTIAZEM 240 MG (CARDIZEM CD) CAP PO SCH (08:30)
[2019-04-15] MEDS: DRONEDARONE TABLET 400 MG TABLET PO SCH (08:31)
[2019-04-15] MEDS: OMEGA 3 (FISH OIL) 1000 MG CAP PO SCH ×2 (08:32→12:55)
[2019-04-15] MEDS: [UNRECOGNIZED DRUG - REMARK] PO SCH ×2 (08:32→12:57)
[2019-04-15] MEDS: PRASUGREL 10 MG (EFFIENT) TABLET PO SCH (08:33)
[2019-04-15] MEDS: CYCLOBENZAPRINE 10 MG (FLEXERIL) TAB PO SCH ×2 (08:34→12:56)
[2019-04-15] MEDS: PRIMIDONE 250MG (MYSOLINE) TAB PO SCH ×2 (08:36→12:54)
[2019-04-15] MEDS: [UNRECOGNIZED DRUG - OTHER] PO SCH (08:37)
[2019-04-15] MEDS: VITAMIN D3 PO SCH (08:37)
[2019-04-15] MEDS: VENlafaxine XR 75 MG (EFFEXOR XR) CAP PO SCH (08:37)
[2019-04-15] MEDS: CALCIUM CARBONATE PO SCH (08:37)
[2019-04-15] MEDS: MULTIVIT W/MINERALS TAB (THERAGRAN M) PO SCH (08:38)
[2019-04-15] MEDS: TRIAMCINOLONE 0.1% CR (KENALOG) 15 GM TUBE TP SCH (08:39)
[2019-04-15] MEDS: Fluticasone/Vilanterol (Breo Ellipta 200-25 Mcg INH) INH SCH (08:40)
[2019-04-15] MEDS: ASPIRIN 81 MG CHEW (CHILDREN'S ASA) PO SCH (08:41)
[2019-04-15] MEDS: FAMOTIDINE 20 MG (PEPCID) TABLET PO SCH (08:41)
[2019-04-15] MEDS: NITROFURANTOIN 100 MG (MACROBID) CAPSULE PO SCH (08:42)
[2019-04-15] MEDS: Cyclosporine (Restasis) 1 DROP OU SCH (08:43)
[2019-04-15] MEDS: inSUlin ASPART (NovoLOG) 1 UNIT/0.01 ML (CHARGE PER UNIT) SC SCH ×2 (08:45→12:57)
[2019-04-15] MEDS: oxyCODONE/APAP 10/325MG (PERCOCET 10) TABLET PO PRN (10:10)
[2019-04-15 12:00] VITALS: BP 150/78
[2019-04-15] MEDS ORDERED: HYDR-3584 PO (12:19)
[2019-04-15] MEDS ORDERED: SOLI10TA2 PO (12:19)
[2019-04-15] MEDS ORDERED: ASPI-999 PO (12:19)
[2019-04-15] MEDS ORDERED: NITR100C PO (12:19)
--- NOTE | 2019-04-15 12:20 | Discharge Summary ---
Discharge Summary Hospital Course Was the Problem List Reviewed?: Yes Problems/Dx: (1) Atrial fibrillation with RVR Status: Acute (2) Charcot foot due to diabetes mellitus (3) Polypharmacy (4) Debility (5) Chronic mental illness Status: Chronic (6) JENNA (obstructive sleep apnea) Status: Chronic (7) Angina pectoris Status: Chronic (8) CAD (coronary artery disease) (9) Stented coronary artery Status: Acute (10) Palpitations Status: Acute (11) IDDM (insulin dependent diabetes mellitus) Status: Acute Hospital Course Date of Admission: Apr 14, 2019 at 10:11 Admission Diagnosis : Family Physician/Provider: Martin Goode MD Date of Discharge: 04/15/19 Discharge Diagnosis: AF w/RVR, DM, Charcot foot chronic Hospital Course: Patient had a standard hospital course after admitted for AF w/RVR in chronic AF status. Dr Nagy was consulted and was able to wean off Cardizem drip with good results of NSR resumption. Patient did well and was stable enough for DC home. Labs and Pending Lab Test: Laboratory Tests 04/15/19 05:51: White Blood Count 7.2, Red Blood Count 3.90L, Hemoglobin 10.9L, Hematocrit 34L, Mean Corpuscular Volume 87, Mean Corpuscular Hemoglobin 28, Mean Corpuscular Hemoglobin Concent 32, Red Cell Distribution Width 15.9H, Platelet Count 257, Mean Platelet Volume 9.7, Neutrophils (%) (Auto) 39L, Lymphocytes (%) (Auto) 44, Monocytes (%) (Auto) 11, Eosinophils (%) (Auto) 5, Basophils (%) (Auto) 0, Neutrophils # (Auto) 2.8, Lymphocytes # (Auto) 3.2, Monocytes # (Auto) 0.8, Eosinophils # (Auto) 0.4H, Basophils # (Auto) 0.0 04/15/19 05:57: Prothrombin Time 22.7H, INR Comment 1.9H, Sodium Level 142, Potassium Level 4.1, Chloride Level 105, Carbon Dioxide Level 25, Anion Gap 12, Blood Urea Nitrogen 21H, Creatinine 0.70, Estimat Glomerular Filtration Rate > 60, BUN/Creatinine Ratio 30, Glucose Level 83, Calcium Level 8.8, Corrected Calcium 9.3, Total Bilirubin 0.1, Aspartate Amino Transf (AST/SGOT) 28, Alanine Aminotransferase (ALT/SGPT) 32, Alkaline Phosphatase 113, Total Protein 6.3L, Albumin 3.4 Microbiology 04/13/19 MRSA Screen - Final, Complete MRSA not isolated Home Meds Active Triamcinolone Acetonide 0.1% Cream (Triamcinolone Acet) 15 Gm Cr 15 Gm TP BID Reported Solu-Medrol 40 mg Vial (Methylprednisolone Sod Succ/Pf) 40 Mg/1 Ml Vial 20 Mg IJ Q12H Oxycodone-Acetaminophen 10-325 (Oxycodone HCl/Acetaminophen) 1 Each Tablet 1 Each PO Q6H PRN MDD 3 7 Days Myrbetriq (Mirabegron) 50 Mg Tab.er.24h 50 Mg PO DAILY Mysoline (Primidone) 250 Mg Tablet 250 Mg PO TID Multaq (Dronedarone HCl) 400 Mg Tablet 400 Mg PO BID Warfarin Sodium 4 Mg Tablet 2 Mg PO MOWEFR@1600 Warfarin Sodium 4 Mg Tablet 4 Mg PO SUTUTHSA@1600 Cyclobenzaprine HCl 10 Mg Tablet 10 Mg PO TID Cartia Xt (Diltiazem HCl) 240 Mg Cap.er.24h 240 Mg PO DAILY Restasis (Cyclosporine) 1 Each Droperette 1 Drop OU BID Metformin HCl 1,000 Mg Tablet 1,000 Mg PO BID Atorvastatin Calcium 80 Mg Tablet 80 Mg PO HS Prasugrel HCl 10 Mg Tablet 10 Mg PO DAILY Miralax (Polyethylene Glycol 3350) 17 Gm Powd.pack 17 Gm PO DAILY PRN Ferrous Sulfate 325 Mg Tablet 325 Mg PO 1800 Zyrtec (Cetirizine HCl) 10 Mg Tablet 10 Mg PO DAILY Venlafaxine HCl ER (Venlafaxine HCl) 75 Mg Cap.er.24h 75 Mg PO DAILY Fish Oil 1,000 mg Capsule ([place] 3 Polyunsat Fatty Acids) 1,000 Mg Cap 1,000 Mg PO TID Gabapentin 800 Mg Tablet 800 Mg PO QID Vesicare (Solifenacin Succinate) 10 Mg Tablet 10 Mg PO 1600 Breo Ellipta 200-25 Mcg INH (Fluticasone/Vilanterol) 1 Each Blst.w.dev 1 Puff INH DAILY Lisinopril 20 Mg Tablet 20 Mg PO DAILY Imipramine HCl 50 Mg Tablet 50 Mg PO HS Nitrofurantoin (Nitrofurantoin Macrocrystal) 100 Mg Capsule 100 Mg PO 1800 Metoprolol Succinate 100 Mg Tab.er.24h 100 Mg PO BID Vitamin D3 (Cholecalciferol (Vitamin D3)) 1,000 Unit Capsule 2,000 Unit PO 1200 Osteo Bi-Flex Caplet (Glucosamine/D3/Boswellia Nellie) 1 Each Tablet 1 Tab PO BID Multivitamins with Minerals (Multivitamin with Minerals) 1 Each Tablet 1 Tab PO DAILY Lantus (Insulin Glargine,Hum.rec.anlog) 100 Unit/1 Ml Vial 20 Unit SQ HS Calcium 500 + Vit D Caplet (Calcium Carbonate/Vitamin D3) 1 Each Tablet 1 Tab PO BID Novolog Flexpen (Insulin Aspart) 300 Units/3 Ml Solution 6 Units SQ TIDAC Ranitidine HCl 150 Mg Tablet 150 Mg PO DAILY PRN Refresh Lacri-Lube Ointment (Mineral Oil/Petrolatum,White) 3.5 Gm Oint...g. OU HS Artificial Tears Drops (Polyvinyl Alcohol/Povidone) 15 Ml Drops 2 Drops OU Q2H PRN Assessment/Pt Instructions [facility] [address] Calvert 1 week Discharge Planning: <30 minutes discharge planning Discharge Instructions Discharge Diet: Cardiac Diet Activity as Tolerated: Yes Discharge Physical Examination Vital Signs Vital Signs Date Time Temp Pulse Resp B/P (MAP) Pulse Ox O2 Delivery O2 Flow Rate FiO2 04/15/19 12:05 71 04/15/19 08:00 36.5 18 138/82 (100) 100 Room Air General Appearance: No Apparent Distress, WD/WN, Chronically ill Allergies: Coded Allergies: amylase (Verified Allergy, Unknown, 08/07/15) black cohosh (Verified Allergy, Unknown, 08/07/15) cellulase (Verified Allergy, Unknown, 08/07/15) glyburide (Verified Allergy, Unknown, 08/07/15) isosorbide (Verified Allergy, Unknown, 08/07/15) lipase (Verified Allergy, Unknown, 08/07/15) protease (Verified Allergy, Unknown, 08/07/15) Discharge Summary Date of Admission Apr 14, 2019 at 10:11 Date of Discharge Discharge Date: Apr 15, 2019 Admission Diagnosis Assessment: AF w/RVR PAF OAC with Coumadin INR 2.1 today CAD s/p stent placement summer 2018 Bilateral Charcot feet on chronic pain meds Neuropathy Polypharmacy DM HTN HLP Plan: Dr Nagy consultation Warfarin maintained Monitor closely Discharge Diagnosis Assessment: AF w/RVR now NSR converted at 0300 today PAF OAC with Coumadin INR 2.1 today CAD s/p stent placement summer 2018 Bilateral Charcot feet on chronic pain meds Neuropathy Polypharmacy DM HTN HLP Difficulty with coping Plan: Dr Nagy consultation Warfarin maintained Monitor closely Tx to 4th floor Very somatic and she states she has low threshold for pain DC tomorrow? (1) Atrial fibrillation with RVR Status: Acute (2) Charcot foot due to diabetes mellitus (3) Polypharmacy (4) Debility (5) Chronic mental illness Status: Chronic (6) JENNA (obstructive sleep apnea) Status: Chronic (7) Angina pectoris Status: Chronic (8) CAD (coronary artery disease) (9) Stented coronary artery Status: Acute (10) Palpitations Status: Acute (11) IDDM (insulin dependent diabetes mellitus) Status: Acute Clinical Quality Measures DVT/VTE Risk/Contraindication: Risk Factor Score Per Nursin RFS Level Per Nursing on Admit: 4+=Very High SAWYER TELLO DO Apr 15, 2019 12:20 POS
[2019-04-15] MEDS: CHOLECALCIFEROL PO SCH (12:52)
--- NOTE | 2019-04-15 14:55 | Progress Note - Cardiology ---
Cardiology SOAP Progress Note Subjective: Feels better compared to time of adm Feels weak No palp or cp No shortness of breath at rest No syncope Objective: I&O/Vital Signs 04/15/19 04/15/19 04/15/19 04/15/19 04:00 07:00 08:00 08:00 Temp 36.1 36.5 Pulse 66 62 76 Resp 20 18 B/P (MAP) 135/79 (97) 138/82 (100) Pulse Ox 96 100 100 O2 Delivery NIV CPAP Room Air Room Air 04/15/19 04/15/19 04/15/19 12:00 12:05 14:41 Temp 36.5 Pulse 76 71 Resp 18 B/P (MAP) 150/78 (102) Pulse Ox 98 O2 Delivery Room Air 04/15/19 00:00 Intake Total 2090 ml Balance 2090 ml Weight (Pounds): 302 Weight (Ounces): 0.0 Weight (Calculated Kilograms): 136.467032 Constitutional: AAO x 3, well-developed, well-nourished Respiratory: No accessory muscle use; other (fair to good bilateral air entry, diminshed at the bases) Cardiovascular: regular rate-rhythm, S1 and S2, systolic murmur Gastrointestional: No tender, No guarding, No rebound; audible bowel sounds Extremities: No clubbing, No cyanosis, No significant edema Neurologic/Psychiatric: oriented x 3, other (moves all limbs equally) Skin: No rash on exposed areas, No ulcerations on exposed areas Results/Procedures: Labs Laboratory Tests 04/15/19 05:51: White Blood Count 7.2, Red Blood Count 3.90L, Hemoglobin 10.9L, Hematocrit 34L, Mean Corpuscular Volume 87, Mean Corpuscular Hemoglobin 28, Mean Corpuscular H emoglobin Concent 32, Red Cell Distribution Width 15.9H, Platelet Count 257, Me an Platelet Volume 9.7, Neutrophils (%) (Auto) 39L, Lymphocytes (%) (Auto) 44, Monocytes (%) (Auto) 11, Eosinophils (%) (Auto) 5, Basophils (%) (Auto) 0, Neutrophils # (Auto) 2.8, Lymphocytes # (Auto) 3.2, Monocytes # (Auto) 0.8, Eosinophils # (Auto) 0.4H, Basophils # (Auto) 0.0 04/15/19 05:57: Prothrombin Time 22.7H, INR Comment 1.9H, Sodium Level 142, Potassium Level 4.1, Chloride Level 105, Carbon Dioxide Level 25, Anion Gap 12, Blood Urea Nitrogen 21H, Creatinine 0.70, Estimat Glomerular Filtration Rate > 60, BUN/Creatinine Ratio 30, Glucose Level 83, Calcium Level 8.8, Corrected Calcium 9.3, Total Bilirubin 0.1, Aspartate Amino Transf (AST/SGOT) 28, Alanine Aminotransferase (ALT/SGPT) 32, Alkaline Phosphatase 113, Total Protein 6.3L, Albumin 3.4 Microbiology 04/13/19 MRSA Screen - Final, Complete MRSA not isolated Laboratory Tests 04/14/19 03:34 04/15/19 05:51 04/15/19 05:57 A/P: Assessment: PAF with RVR, now NSR Stroke prophylaxis with warfarin. Pt reports she had been on Pradaxa, but was found to have an LA thrombus on echo in 2018 while on Pradaxa and, therefore, felt to be a nonresponder to Pradaxa Coronary artery disease, s/p mid-LAD stenting with Resolute Integrity 2.5 x [address] Russell History of DVT Hypertension Hyperlipidemia Echo of 03/07/19: normal left ventricle size and ejection fraction 55-65 percent, grade 2 hazel dysfunction, mildly dilated left atrium, mild MR, PA 30-35 mmHg Mild obstructive sleep apnea, followed and managed by Dr. Colmenares Diabetes mellitus II Obesity with obesity-hypoventilation and JENNA Chronic pain syndrome Plan: * Continue therapy with CCB, BB and dronedarone. Switched from iv to oral CCB today * Additional warfarin today because INR minimally subtherapeutic. Advised to f/u on this with her upholstery technician tomorrow and ask if any changes are necessary in her chronic regimen * Continue prasugrel for recent cor stent * Ok to d/c from card standpoint if she maintains good heart rate on oral meds * Close f/u advised with Dr Calvert, her upholstery technician * I answered her CV-related questions MEIR CALDWELL MD FACP [facility] Apr 15, 2019 14:55 POS
[2019-04-15] MEDS ORDERED: warFARin 3 MG (COUMADIN) TAB PO ONE (18:00)
== END 2019-04-15 15:05 | disposition home or self-care (01) | DRG 309 ==
LOC: EDUNIT# 02:27 → ER 02:29 → ICU 03:57 → OBSVTOIN 04-14 10:11 → 4TH 04-14 12:55
PROVIDERS: ADMIT Internal Medicine; ATTEND Internal Medicine
DX: I48.0 Paroxysmal atrial fibrillation (principal); I25.119 Atherosclerotic heart disease of native coronary artery with unspecified angina pectoris; E78.5 Hyperlipidemia, unspecified; I10 Essential (primary) hypertension; E11.610 Type 2 diabetes mellitus with diabetic neuropathic arthropathy; E11.40 Type 2 diabetes mellitus with diabetic neuropathy, unspecified; Z79.4 Long term (current) use of insulin; K21.9 Gastro-esophageal reflux disease without esophagitis; K59.09 Other constipation; E66.01 Morbid (severe) obesity due to excess calories; Z68.41 Body mass index [BMI] 40.0-44.9, adult; F41.9 Anxiety disorder, unspecified; F32.9 Major depressive disorder, single episode, unspecified; G47.33 Obstructive sleep apnea (adult) (pediatric); G89.4 Chronic pain syndrome; Z79.01 Long term (current) use of anticoagulants; Z87.891 Personal history of nicotine dependence; I25.2 Old myocardial infarction; Z95.5 Presence of coronary angioplasty implant and graft
CPT/HCPCS: 36415; 71045; 80048; 80053; 80061; 82962; 83735; 83874; 84100; 84443; 84484; 85025; 85610; 85730; 87081; 93005; 93041

== ENCOUNTER 2019-04-20 15:22 | Inpatient (IN) | payer MEDICARE, MEDICAID ==
[2019-04-20] VITALS (13 sets, daily range): BP systolic 86–117; BP diastolic 61–98
[~2019-04-20] VITALS: Ht 179.1 cm; Wt 137.0 kg
[~2019-04-20 15:22] MED LIST changes: +ASPI-999 PO; +HYDR-3584 PO; +METH40VI2 IJ; +OXYC-465 PO
--- NOTE | 2019-04-20 15:44 | ED Cardiac General ---
History of Present Illness General Chief Complaint: Cardiac/General Problems Stated Complaint: LIGHT HEADED Nursing Triage Note: PT BROUGHT IN BY EMS FROM HOME WITH COMPLAINT OF LIGHTHEADED AND AFIB. PT WAS RECENTLY DISCHARGED FOR AFIB. Source: patient Exam Limitations: no limitations History of Present Illness Date Seen by Provider: Apr 20, 2019 Time Seen by Provider: 15:42 Initial Comments This 68-year-old white female presents with history of feeling lightheaded. The patient has had recurrent A. fib normally controlled with Cardizem. Patient denies chest pain, shortness of breath, nausea or vomiting. She has had no associated diaphoresis. Patient in the care of Dr. Calvert. Allergies and Home Medications Allergies Coded Allergies: amylase (Verified Allergy, Unknown, 08/07/15) black cohosh (Verified Allergy, Unknown, 08/07/15) cellulase (Verified Allergy, Unknown, 08/07/15) glyburide (Verified Allergy, Unknown, 08/07/15) isosorbide (Verified Allergy, Unknown, 08/07/15) lipase (Verified Allergy, Unknown, 08/07/15) protease (Verified Allergy, Unknown, 08/07/15) Home Medications Aspirin 81 Mg Tab.chew, 81 MG PO DAILY Prescribed by: SAWYER TELLO on 04/15/19 1219 Atorvastatin Calcium 80 Mg Tablet, 80 MG PO HS, (Reported) Calcium Carbonate/Vitamin D3 1 Each Tablet, 1 TAB PO BID, (Reported) Cetirizine HCl 10 Mg Tablet, 10 MG PO DAILY, (Reported) Cholecalciferol (Vitamin D3) 1,000 Unit Capsule, 2,000 UNIT PO 1200, (Reported) Cyclobenzaprine HCl 10 Mg Tablet, 10 MG PO TID, (Reported) Cyclosporine 1 Each Droperette, 1 DROP OU BID, (Reported) Diltiazem HCl 240 Mg Cap.er.24h, 240 MG PO DAILY, (Reported) Dronedarone HCl 400 Mg Tablet, 400 MG PO BID, (Reported) Ferrous Sulfate 325 Mg Tablet, 325 MG PO 1800, (Reported) Fluticasone/Vilanterol 1 Each Blst.w.dev, 1 PUFF INH DAILY, (Reported) Gabapentin 800 Mg Tablet, 800 MG PO QID, (Reported) Glucosamine/D3/Boswellia Nellie 1 Each Tablet, 1 TAB PO BID, (Reported) Hydroxyzine HCl 10 Mg Tablet, 10 MG PO TID PRN for ANXIETY Prescribed by: SAWYER TELLO on 04/15/19 1219 Imipramine HCl 50 Mg Tablet, 50 MG PO HS, (Reported) Insulin Aspart 300 Units/3 Ml Solution, 6 UNITS SQ TIDAC, (Reported) Insulin Glargine,Hum.rec.anlog 100 Unit/1 Ml Vial, 20 UNIT SQ HS, (Reported) Lisinopril 20 Mg Tablet, 20 MG PO DAILY, (Reported) Metformin HCl 1,000 Mg Tablet, 1,000 MG PO BID, (Reported) Metoprolol Succinate 100 Mg Tab.er.24h, 100 MG PO BID, (Reported) Mineral Oil/Petrolatum,White 3.5 Gm Oint...g., OU HS, (Reported) Mirabegron 50 Mg Tab.er.24h, 50 MG PO DAILY, (Reported) Multivitamin with Minerals 1 Each Tablet, 1 TAB PO DAILY, (Reported) Nitrofurantoin Macrocrystal 100 Mg Capsule, 100 MG PO 1800 Prescribed by: SAWYER TELLO on 04/15/19 121 [place] 3 Polyunsat Fatty Acids 1,000 Mg Cap, 1,000 MG PO TID, (Reported) Oxycodone HCl/Acetaminophen 1 Each Tablet, 1 EACH PO Q6H PRN for PAIN-MODERATE (5-7), (Reported) Polyethylene Glycol 3350 17 Gm Powd.pack, 17 GM PO DAILY PRN for CONSTIPATION- 2ND LINE, (Reported) Polyvinyl Alcohol/Povidone 15 Ml Drops, 2 DROPS OU Q2H PRN for DRY EYES, (Reported) Prasugrel HCl 10 Mg Tablet, 10 MG PO DAILY, (Reported) Primidone 250 Mg Tablet, 250 MG PO TID, (Reported) Ranitidine HCl 150 Mg Tablet, 150 MG PO DAILY PRN for HEARTBURN, (Reported) Solifenacin Succinate 10 Mg Tablet, 10 MG PO 1600 Prescribed by: SAWYER TELLO on 04/15/19 121 Triamcinolone Acet 15 Gm Cr, 15 GM TP BID Prescribed by: SAYWER TELLO on 03/08/19 0931 Venlafaxine HCl 75 Mg Cap.er.24h, 75 MG PO DAILY, (Reported) Warfarin Sodium 4 Mg Tablet, 4 MG PO SuTuThSa@1600, (Reported) Warfarin Sodium 4 Mg Tablet, 2 MG PO MoWeFr@1600, (Reported) Patient Home Medication List Home Medication List Reviewed: Yes Review of Systems Review of Systems Constitutional: No chills, No fever; malaise Respiratory: Denies Cough, Denies Shortness of Air Cardiovascular: Lightheadedness Gastrointestinal: No Symptoms Reported Genitourinary: No Symptoms Reported Musculoskeletal: no symptoms reported Skin: no symptoms reported Psychiatric/Neurological: No Symptoms Reported Endocrine: No Symptoms Reported Hematologic/Lymphatic: No Symptoms Reported Past Xapnbge-Lnnovh-Npjrdm Hx Past Med/Social Hx: Reviewed Nursing Past Med/Soc Hx Patient Social History Type Used: Cigarettes Former Smoker, Quit: May 18, 1980 2nd Hand Smoke Exposure: No Recent Foreign Travel: No Contact w/Someone Who Travel: No Recent Infectious Disease Expo: No Recent Hopitalizations: No Immunizations Up To Date Tetanus Booster (TDap): Unknown PED Vaccines UTD: Yes Date of Pneumonia Vaccine: Feb 13, 2019 Date of Influenza Vaccine: Feb 13, 2019 Seasonal Allergies Seasonal Allergies: No Past Medical History Surgeries: Yes (STENTS PLACED NOVEMBER 2018) Cardiac, Coronary Stent, Eye Surgery, Orthopedic Respiratory: Yes Asthma, Sleep Apnea Currently Using CPAP: Yes Currently Using BIPAP: No Cardiac: Yes Atrial Fibrillation, Chronic Edema/Swelling, Coronary Artery Disease, Deep Vein Thrombosis, Heart Attack, High Cholesterol, Hypertension Neurological: Yes Neuropathy 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 Disorders: Yes Female 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 Disorders: 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 Sexually Transmitted Disease: No HIV/AIDS: No Genitourinary: Yes UTI-Chronic Gastrointestinal: Yes Gastroesophageal Reflux, Chronic Constipation Musculoskeletal: Yes Degenerate Disk Disease, Arthritis, Chronic Back Pain Endocrine: Yes (MORBID OBESITY) Diabetes, Insulin dep HEENT: Yes Cataract Loss of Vision: Bilateral Hearing Impairment: Denies Cancer: No Uterine Psychosocial: Yes Anxiety, Depression Integumentary: No Blood Disorders: No Adverse Reaction/Blood Tranf: No Family Medical History Cardiovascular disease 19 FATHER 19 MOTHER Colon cancer 19 FATHER 19 MOTHER Diabetes mellitus 19 MOTHER G8 BROTHER G8 SISTER Myocardial infarction 19 FATHER No Pertinent Family Hx Physical Exam Vital Signs Vital Signs - First Documented 04/20/19 15:24 Pulse 125 Resp 20 B/P (MAP) 129/81 (97) Pulse Ox 95 O2 Delivery Room Air Capillary Refill : Less Than 3 Seconds Height, Weight, BMI Height: 5'10.50" Weight: 302lbs. 0.0oz. 136.204347xx; 40.00 BMI Method:Stated General Appearance: No Apparent Distress, WD/WN HEENT: Normal ENT Inspection Neck: Normal Inspection Respiratory: Normal Breath Sounds Cardiovascular: Irregularly Irregular, Tachycardia Gastrointestinal: Normal Bowel Sounds Extremity: Normal Inspection Neurologic/Psychiatric: Alert, Oriented x3, No Motor/Sensory Deficits Skin: Normal Color, Warm/Dry Progress/Results/Core Measures Results/Orders Lab Results Laboratory Tests Test 04/20/19 15:30 04/20/19 15:32 Range/Units White Blood Count 8.0 4.3-11.0 10^3/uL Red Blood Count 4.43 4.35-5.85 10^6/uL Hemoglobin 12.6 11.5-16.0 G/DL Hematocrit 38 35-52 % Mean Corpuscular Volume 85 80-99 FL Mean Corpuscular Hemoglobin 28 25-34 PG Mean Corpuscular Hemoglobin Concent 34 32-36 G/DL Red Cell Distribution Width 16.1 H 10.0-14.5 % Platelet Count 315 130-400 10^3/uL Mean Platelet Volume 10.0 7.4-10.4 FL Neutrophils (%) (Auto) 44 42-75 % Lymphocytes (%) (Auto) 41 12-44 % Monocytes (%) (Auto) 10 0-12 % Eosinophils (%) (Auto) 4 0-10 % Basophils (%) (Auto) 0 0-10 % Neutrophils # (Auto) 3.5 1.8-7.8 X 10^3 Lymphocytes # (Auto) 3.3 1.0-4.0 X 10^3 Monocytes # (Auto) 0.8 0.0-1.0 X 10^3 Eosinophils # (Auto) 0.4 H 0.0-0.3 10^3/uL Basophils # (Auto) 0.0 0.0-0.1 10^3/uL Prothrombin Time 23.3 H 12.2-14.7 SEC INR Comment 2.0 H 0.8-1.4 Activated Partial Thromboplast Time 36 H 24-35 SEC Glucometer 81 70-110 MG/DL My Orders Orders - ADOLFO VAZQUEZ MD Ekg Tracing (04/20/19 15:33) Diltiazem Injection (Cardizem Injection) (04/20/19 15:45) Ns (Ivpb) (Sodium C... W/Diltiazem Iv Fo (04/20/19 15:45) Cbc With Automated Diff (04/20/19 15:55) Magnesium (04/20/19 15:55) Chest 1 View, Ap/Pa Only (04/20/19 15:55) Comprehensive Metabolic Panel (04/20/19 15:55) Myoglobin Serum (04/20/19 15:55) Protime With Inr (04/20/19 15:55) Partial Thromboplastin Time (04/20/19 15:55) O2 (04/20/19 15:55) Monitor-Rhythm Ecg Trace Only (04/20/19 15:55) Lipid Panel (04/21/19 06:00) Ed Iv/Invasive Line Start (04/20/19 15:55) Troponin I (04/20/19 15:30) Medications Given in ED Current Medications Medications Dose Ordered Sig/Ashley Route Start Time Stop Time Status Last Admin Dose Admin Diltiazem HCl 10 mg ONCE ONCE IVP 04/20/19 15:45 04/20/19 15:46 DC 04/20/19 16:07 10 MG Vital Signs/I&O 04/20/19 04/20/19 15:24 16:08 Pulse 125 110 Resp 20 B/P (MAP) 129/81 (97) 136/62 Pulse Ox 95 O2 Delivery Room Air Blood Pressure Mean: 97 POS Progress Progress Note : Time: 16:21 Progress Note The patient's initial rhythm in the emergency department was in atrial fibrillation with a tachycardia. She received a Cardizem bolus of 10 mg and a 10 mg per hour drip. The patient's rate decreased to 80. The patient still with atrial fibrillation. was kind enough to admit the patient to cardiac stepdown. Orders written patient was transferred Departure Communication (Admissions) Time/Spoke to Admitting Phy: 16:22 Impression Primary Impression: Atrial fibrillation Qualified Codes: I48.19 - Other persistent atrial fibrillation Disposition: ADMITTED INPATIENT Condition: Improved Admissions Decision to Admit Reason: Admit from ER (General) Decision to Admit/Date: Apr 20, 2019 Time/Decision to Admit Time: 16:23 Departure-Patient Inst. Referrals: DELIA TRIANA MD (PCP/Family) Primary Care Physician ADOLFO VAZQUEZ MD Apr 20, 2019 15:44 POS
[2019-04-20] MEDS ORDERED: DILTIAZEM 25 MG/5 ML INJ (CARDIZEM) VIAL IVP ONE (15:45)
[2019-04-20] MEDS ORDERED: DILTIAZEM IV FOR DRIP 125 MG in NS (IVPB) 100 ML IV SCH (15:45)
[2019-04-20 16:11] LABS: BASOPHILS % (AUTO) 0 % (0-10); EOSINOPHILS # (AUTO) 0.4 10^3/uL (0.0-0.3); EOSINOPHILS % (AUTO) 4 % (0-10); HEMATOCRIT 38 % (35-52); HEMOGLOBIN 12.6 G/DL (11.5-16.0); LYMPHOCYTES # (AUTO) 3.3 X 10^3 (1.0-4.0); LYMPHOCYTES % (AUTO) 41 % (12-44); MEAN CORPUSCULAR HEMOGLOBIN 28 PG (25-34); MEAN CORPUSCULAR HGB CONC 34 G/DL (32-36); MEAN CORPUSCULAR VOLUME 85 FL (80-99); MONOCYTES # (AUTO) 0.8 X 10^3 (0.0-1.0); MONOCYTES % (AUTO) 10 % (0-12); NEUTROPHILS # (AUTO) 3.5 X 10^3 (1.8-7.8); NEUTROPHILS % (AUTO) 44 % (42-75); PLATELET COUNT 315 10^3/uL (130-400); RED CELL DISTRIBUTION WIDTH 16.1 % (10.0-14.5)
[2019-04-20 16:13] LABS: PROTHROMBIN TIME PATIENT 23.3 SEC (12.2-14.7)
[2019-04-20 16:22] LABS: ALANINE AMINOTRANSFERASE 47 U/L (0-55); ALBUMIN 3.8 GM/DL (3.2-4.5); ALKALINE PHOSPHATASE 139 U/L (40-136); BILIRUBIN,TOTAL 0.1 MG/DL (0.1-1.0); BUN/CREATININE RATIO 18; CALCIUM 9.2 MG/DL (8.5-10.1); CARBON DIOXIDE 25 MMOL/L (21-32); CHLORIDE 101 MMOL/L (98-107); CREATININE SERUM 0.76 MG/DL (0.60-1.30); GFR ESTIMATED > 60; GLUCOSE 82 MG/DL (70-105); MAGNESIUM 1.8 MG/DL (1.6-2.4); POTASSIUM 4.2 MMOL/L (3.6-5.0); SODIUM 139 MMOL/L (135-145); TOTAL PROTEIN 6.9 GM/DL (6.4-8.2)
--- NOTE | 2019-04-20 16:53 | Diagnostic Imaging Report ---
INDICATION: Lightheadedness and atrial fibrillation. TIME OF EXAM: 4:27 p.m. COMPARISON: Correlation is made with prior chest from 04/14/2019. FINDINGS: Heart size is stable. Monitoring device overlies the left chest. Lungs are clear. The pulmonary vascularity is normal. There is no infiltrate, effusion, or pneumothorax. Nodular density projects over the left base may represent a nipple shadow, as this was not present on recent study one week earlier. IMPRESSION: No acute cardiopulmonary process is detected. Dictated by: Dictated on workstation # [id number]
[2019-04-20] MEDS ORDERED: CATHETER FLUSH 10 ML SYR IV PRN (19:00)
[2019-04-20] MEDS: NS IV 1000 ML 1,000 ML IV SCH (23:00)
[2019-04-21] VITALS (18 sets, daily range): BP systolic 87–156; BP diastolic 63–97
[2019-04-21] MEDS: DILTIAZEM 125 MG/NS 100 ML IV SCH ×4 (02:44→15:00)
[2019-04-21 04:14] LABS: BASOPHILS % (AUTO) 0 % (0-10); EOSINOPHILS # (AUTO) 0.4 10^3/uL (0.0-0.3); EOSINOPHILS % (AUTO) 4 % (0-10); HEMATOCRIT 41 % (35-52); HEMOGLOBIN 13.3 G/DL (11.5-16.0); LYMPHOCYTES % (AUTO) 42 % (12-44); MEAN CORPUSCULAR HEMOGLOBIN 28 PG (25-34); MEAN CORPUSCULAR HGB CONC 33 G/DL (32-36); MEAN CORPUSCULAR VOLUME 85 FL (80-99); MONOCYTES # (AUTO) 0.9 X 10^3 (0.0-1.0); MONOCYTES % (AUTO) 9 % (0-12); NEUTROPHILS # (AUTO) 4.2 X 10^3 (1.8-7.8); NEUTROPHILS % (AUTO) 45 % (42-75); PLATELET COUNT 342 10^3/uL (130-400); RED CELL DISTRIBUTION WIDTH 16.4 % (10.0-14.5); WHITE BLOOD COUNT 9.5 10^3/uL (4.3-11.0)
[2019-04-21 04:40] LABS: BUN/CREATININE RATIO 21; CALCIUM 9.2 MG/DL (8.5-10.1); CARBON DIOXIDE 24 MMOL/L (21-32); CHLORIDE 105 MMOL/L (98-107); CHOLESTEROL 113 MG/DL (< 200); CREATININE SERUM 0.73 MG/DL (0.60-1.30); GFR ESTIMATED > 60; GLUCOSE 96 MG/DL (70-105); HDL CHOLESTEROL 52 MG/DL (40-60); MAGNESIUM 1.9 MG/DL (1.6-2.4); PHOSPHORUS 4.6 MG/DL (2.3-4.7); POTASSIUM 4.4 MMOL/L (3.6-5.0); SODIUM 141 MMOL/L (135-145); TRIGLYCERIDES 63 MG/DL (<150); VLDL CHOLESTEROL 13 MG/DL (5-40)
--- NOTE | 2019-04-21 07:51 | Consultation-Cardiology ---
HPI-Cardiology Cardiology Consultation Date of Consultation 04/21/19 Date of Admission Time Seen by Provider: 07:47 Indication: Atrial fibrillation HPI 68-year-old lady with history of coronary artery disease, diabetes mellitus, paroxysmal atrial fibrillation, multiple hospitalization recently for atrial fibrillation, compliant with her medication, was discharged from the hospital on April 16, 2019, was doing well until yesterday morning when she started to have palpitation, felt rapid heart rate in her chest. Came into the emergency room yesterday evening and was noted to be in atrial fibrillation with rapid ventricular response, borderline tachycardic, started on a Cardizem drip, feeling better, still borderline tachycardic. She denied any chest pain. No syncope, or swelling is better. Home Medications & Allergies Allergies: Coded Allergies: amylase (Verified Allergy, Unknown, 08/07/15) black cohosh (Verified Allergy, Unknown, 08/07/15) cellulase (Verified Allergy, Unknown, 08/07/15) glyburide (Verified Allergy, Unknown, 08/07/15) isosorbide (Verified Allergy, Unknown, 08/07/15) lipase (Verified Allergy, Unknown, 08/07/15) protease (Verified Allergy, Unknown, 08/07/15) Home Medication List Reviewed: Yes UWS-Cvuglm-Qdinyl Hx Patient Social History Marital Status: single Employed/Student: retired Alcohol Use: Denies Use Recreational Drug Use: No Smoking Status: Former Smoker Former smoker/When Quit: Aug 07, 1980 Type Used: Cigarettes 2nd Hand Smoke Exposure: No Recent Foreign Travel: No Recent Infectious Disease Expo: No Recent Hopitalizations: No Immunizations Up To Date Tetanus Booster (TDap): Unknown Date of Pneumonia Vaccine: Feb 13, 2019 Date of Influenza Vaccine: Feb 13, 2019 Past Medical History Discussed below Family Medical History Significant Family History: No Pertinent Family Hx Family History: Cardiovascular disease 19 FATHER 19 MOTHER Colon cancer 19 FATHER 19 MOTHER Diabetes mellitus 19 MOTHER G8 BROTHER G8 SISTER Myocardial infarction 19 FATHER Review of Systems-General Review of Systems Constitutional: see HPI; No chills, No fever; malaise, weakness EENTM: see HPI Respiratory: see HPI; No cough; dyspnea on exertion; No hemoptysis, No orthopn ea, No phlegm; short of breath; No stridor, No wheezing, No other Cardiovascular: see HPI; No chest pain; edema; No Hx of Intervention; palpitations; No syncope, No vascular heart diseas, No other Gastrointestinal: see HPI Genitourinary: see HPI Musculoskeletal: no symptoms reported, see HPI Skin: no symptoms reported, see HPI Psychiatric/Neurological: No Symptoms Reported, See HPI Reviewed Test Results Reviewed Test Results Lab Laboratory Tests Test 04/20/19 15:30 04/20/19 15:32 04/20/19 21:52 04/21/19 03:59 Range/Units White Blood Count 8.0 9.5 4.3-11.0 10^3/uL Red Blood Count 4.43 4.81 4.35-5.85 10^6/uL Hemoglobin 12.6 13.3 11.5-16.0 G/DL Hematocrit 38 41 35-52 % Mean Corpuscular Volume 85 85 80-99 FL Mean Corpuscular Hemoglobin 28 28 25-34 PG Mean Corpuscular Hemoglobin Concent 34 33 32-36 G/DL Red Cell Distribution Width 16.1 H 16.4 H 10.0-14.5 % Platelet Count 315 342 130-400 10^3/uL Mean Platelet Volume 10.0 10.0 7.4-10.4 FL Neutrophils (%) (Auto) 44 45 42-75 % Lymphocytes (%) (Auto) 41 42 12-44 % Monocytes (%) (Auto) 10 9 0-12 % Eosinophils (%) (Auto) 4 4 0-10 % Basophils (%) (Auto) 0 0 0-10 % Neutrophils # (Auto) 3.5 4.2 1.8-7.8 X 10^3 Lymphocytes # (Auto) 3.3 4.0 1.0-4.0 X 10^3 Monocytes # (Auto) 0.8 0.9 0.0-1.0 X 10^3 Eosinophils # (Auto) 0.4 H 0.4 H 0.0-0.3 10^3/uL Basophils # (Auto) 0.0 0.0 0.0-0.1 10^3/uL Prothrombin Time 23.3 H 12.2-14.7 SEC INR Comment 2.0 H 0.8-1.4 Activated Partial Thromboplast Time 36 H 24-35 SEC Sodium Level 139 141 135-145 MMOL/L Potassium Level 4.2 4.4 3.6-5.0 MMOL/L Chloride Level 101 105 98-107 MMOL/L Carbon Dioxide Level 25 24 21-32 MMOL/L Anion Gap 13 12 5-14 MMOL/L Blood Urea Nitrogen 14 15 7-18 MG/DL Creatinine 0.76 0.73 0.60-1.30 MG/DL Estimat Glomerular Filtration Rate > 60 > 60 BUN/Creatinine Ratio 18 21 Glucose Level 82 96 70-105 MG/DL Calcium Level 9.2 9.2 8.5-10.1 MG/DL Corrected Calcium 9.4 8.5-10.1 MG/DL Magnesium Level 1.8 1.9 1.6-2.4 MG/DL Total Bilirubin 0.1 0.1-1.0 MG/DL Aspartate Amino Transf (AST/SGOT) 32 5-34 U/L Alanine Aminotransferase (ALT/SGPT) 47 0-55 U/L Alkaline Phosphatase 139 H 40-136 U/L Myoglobin 21.4 10.0-92.0 NG/ML Troponin I < 0.028 <0.028 NG/ML Total Protein 6.9 6.4-8.2 GM/DL Albumin 3.8 3.2-4.5 GM/DL Glucometer 81 142 H 70-110 MG/DL Phosphorus Level 4.6 2.3-4.7 MG/DL Triglycerides Level 63 <150 MG/DL Cholesterol Level 113 < 200 MG/DL LDL Cholesterol Direct 45 1-129 MG/DL VLDL Cholesterol 13 5-40 MG/DL HDL Cholesterol 52 40-60 MG/DL Physical Exam Physical Exam Vital Signs Vital Signs - First Documented 04/20/19 04/20/19 15:24 20:00 Temp 35.6 Pulse 125 Resp 20 B/P (MAP) 129/81 (97) Pulse Ox 95 O2 Delivery Room Air Capillary Refill : Less Than 3 Seconds Height, Weight, BMI Height: 5'10.50" Weight: 302lbs. 0.0oz. 136.528325uf; 40.00 BMI Method:Stated General Appearance: No Apparent Distress, WD/WN Eyes: Bilateral Eye Normal Inspection, Bilateral Eye PERRL, Bilateral Eye EOMI HEENT: PERRL/EOMI, TMs Normal, Normal ENT Inspection Neck: Full Range of Motion, Normal Inspection, Supple Respiratory: Chest Non Tender, Lungs Clear, Normal Breath Sounds, No Accessory Muscle Use Cardiovascular: Systolic Murmur, Irregularly Irregular, Tachycardia Gastrointestinal: Normal Bowel Sounds, No Organomegaly, No Pulsatile Mass Back: Normal Inspection, No CVA Tenderness, No Vertebral Tenderness Extremity: Normal Inspection, Non Tender, Pedal Edema Neurologic/Psychiatric: Alert, Oriented x3, No Motor/Sensory Deficits Skin: Normal Color, Warm/Dry Lymphatic: No Adenopathy A/P-Cardiology Admission Diagnosis Paroxysmal atrial fibrillation Palpitation Coronary artery disease Hypertension Assessment/Plan Paroxysmal atrial fibrillation, back in atrial fibrillation with rapid ventr icular response, failed Multaq treatment, I will try sotalol and evaluate her tolerance and response, continue on Coumadin and monitor INR Monitor daily EKG and QT interval with the change of medication Palpitation, fatigue and loss of energy secondary to atrial fibrillation. Coronary artery disease, underwent cardiac catheterization November 22, 2018 revealing severe mid LAD stenosis of 80-90 percent, very tortuous LAD with difficult visualization. Underwent stent placement using resolute integrity 2.5 x 26 mm stent. Maintained on Effient and aspirin History of DVT, first episode occurred about 30 years ago, second episode occurr ed in July 2015, on the left side while receiving physical therapy for back injury. Maintained on Coumadin Hypertension, restart home medication monitor blood pressure Hyperlipidemia, monitor lipids Mild obstructive sleep apnea, followed and managed by Dr. Colmenares Diabetes mellitus, followed and managed by primary care physician. Back pain and joint pain. History of Charcot joint. BMI is 41, we discussed weight loss and exercise. Clinical Quality Measures DVT/VTE Risk/Contraindication: Risk Factor Score Per Nursin RFS Level Per Nursing on Admit: 4+=Very High CHARLY JOSE MD Apr 21, 2019 07:51 POS
[2019-04-21] MEDS ORDERED: DRONEDARONE TABLET 400 MG TABLET PO SCH (09:00)
[2019-04-21] MEDS ORDERED: lisINopril 20 MG (PRINIVIL) TABLET PO SCH (09:00)
[2019-04-21] MEDS ORDERED: ASPIRIN 81 MG CHEW (CHILDREN'S ASA) PO SCH (09:00)
[2019-04-21] MEDS ORDERED: meTOprolol SUCCINATE 100 MG (TOPROL XL) TAB PO SCH (09:00)
[2019-04-21] MEDS ORDERED: DILTIAZEM 240 MG (CARDIZEM CD) CAP PO SCH (09:00)
[2019-04-21] MEDS ORDERED: PRASUGREL 10 MG (EFFIENT) TABLET PO SCH (09:00)
[2019-04-21] MEDS: SOTALOL 80 MG (BETAPACE) TAB PO SCH ×2 (10:34→21:25)
--- NOTE | 2019-04-21 12:09 | History & Physical-Hospitalist ---
History of Present Illness HPI/Chief Complaint Chief complaint: Atrial fibrillation with rapid ventricular response History present illness: This is a 68-year-old white female who was just discharged for atrial fibrillation with rapid ventricular response after a few medication changes by cardiology who presents once again to the ER with palpitations found to have atrial fibrillation. Patient was placed on antiarrhythmics per cardiology and currently she denies any shortness of breath and feels better although she is still in atrial fibrillation. I restarted all of her home medications which includes around 75 medications. Patient denies any pain. Source: patient Date Seen 04/21/19 Time Seen by a Provider: 10:30 Attending Physician Jarred Calvert MD PCP Martin Goode MD Referring Physician Date of Admission Apr 21, 2019 at 11:04 Home Medications & Allergies Home Medications Reviewed patient Home Medication Reconciliation performed by pharmacy medication reconciliations physics technician and/or nursing. Patients Allergies have been reviewed. Allergies Allergies Coded Allergies amylase (Verified Allergy, Unknown, 08/07/15) black cohosh (Verified Allergy, Unknown, 08/07/15) cellulase (Verified Allergy, Unknown, 08/07/15) glyburide (Verified Allergy, Unknown, 08/07/15) isosorbide (Verified Allergy, Unknown, 08/07/15) lipase (Verified Allergy, Unknown, 08/07/15) protease (Verified Allergy, Unknown, 08/07/15) Past Qfzgsna-Flnqqk-Ocezlz Hx Past Med/Social Hx: Reviewed Nursing Past Med/Soc Hx, Reviewed and Corrections made Patient Social History Marrital Status: single Employed/Student: retired Alcohol Use: Denies Use Recreational Drug Use: No Smoking Status: Former Smoker Former Smoker, Quit: May 18, 1980 Type Used: Cigarettes 2nd Hand Smoke Exposure: No Recent Foreign Travel: No Contact w/other who traveled: No Recent Hopitalizations: No Recent Infectious Disease Expo: No Immunizations Up To Date Tetanus Booster (TDap): Unknown Pediatric: Yes Date of Pneumonia Vaccine: Feb 13, 2019 Date of Influenza Vaccine: Feb 13, 2019 Seasonal Allergies Seasonal Allergies: No Past Medical History Surgeries: Cardiac, Coronary Stent, Eye Surgery, Orthopedic Respiratory: Asthma Currently Using CPAP: Yes Currently Using BIPAP: No Cardiac: Atrial Fibrillation, Chronic Edema/Swelling, Coronary Artery Disease, Deep Vein Thrombosis, Heart Attack, High Cholesterol, Hypertension Neurological: Neuropathy 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: Yes Sexually Transmitted Disease: No HIV/AIDS: No Female 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 Disorders: Denies Menopausal Genitourinary: UTI-Chronic Gastrointestinal: Gastroesophageal Reflux, Chronic Constipation Musculoskeletal: Degenerate Disk Disease, Arthritis, Chronic Back Pain Endocrine: Diabetes, Insulin dep HEENT: Cataract Loss of Vision: Bilateral Hearing Impairment: Denies Cancer: Uterine Psychosocial: Anxiety, Depression History of Blood Disorders: No Adverse Reaction to Blood Funez: No Family History Cardiovascular disease 19 FATHER 19 MOTHER Colon cancer 19 FATHER 19 MOTHER Diabetes mellitus 19 MOTHER G8 BROTHER G8 SISTER Myocardial infarction 19 FATHER No Pertinent Family Hx Review of Systems Constitutional: see HPI, dizziness Cardiovascular: palpitations Physical Exam Physical Exam Vital Signs Vital Signs - First Documented 04/20/19 04/20/19 04/22/19 15:24 20:00 03:20 Temp 35.6 Pulse 125 Resp 20 B/P (MAP) 129/81 (97) Pulse Ox 95 O2 Delivery Room Air FiO2 21 Capillary Refill : Less Than 3 Seconds Height, Weight, BMI Height: 5'10.50" Weight: 302lbs. 0.0oz. 136.594976uh; 40.00 BMI Method:Stated General Appearance: No Apparent Distress, Obese Eyes: Right Eye Normal Inspection, Right Eye PERRL HEENT: PERRL/EOMI, Normal ENT Inspection, Pharynx Normal, Moist Mucous Membranes Neck: Full Range of Motion, Normal Inspection, Non Tender Respiratory: Chest Non Tender, Lungs Clear, Normal Breath Sounds, No Accessory Muscle Use, No Respiratory Distress Cardiovascular: No Edema, No Gallop, No JVD, No Murmur, Normal Peripheral Pulses, Irregularly Irregular, Tachycardia Gastrointestinal: Normal Bowel Sounds, No Organomegaly, No Pulsatile Mass, Non Tender, Soft Back: Normal Inspection, No CVA Tenderness, No Vertebral Tenderness Extremity: Normal Capillary Refill, Normal Inspection, Normal Range of Motion, Non Tender, No Calf Tenderness, No Pedal Edema Neurologic/Psychiatric: Alert, Oriented x3, No Motor/Sensory Deficits, Normal Mood/Affect Skin: Normal Color, Warm/Dry Lymphatic: No Adenopathy Results Results/Procedures Labs Laboratory Tests 04/20/19 15:30 04/21/19 03:59 04/22/19 03:39 Patient resulted labs reviewed. Assessment/Plan Admission Diagnosis Assessment: Atrial fibrillation with rapid ventricular response refractory and resistant PAF OAC with Coumadin CAD s/p stent placement summer 2018 Bilateral Charcot feet on chronic pain meds Neuropathy Polypharmacy DM HTN HLP Plan: Dr Calvert consultation Warfarin maintained Monitor closely Home meds Admission Status: Inpatient Order (span 2 midnights) Reason for Inpatient Admission: Resistant atrial fibrillation with rapid ventricular response Diagnosis/Problems Diagnosis/Problems (1) Atrial fibrillation with rapid ventricular response (2) Stented coronary artery Status: Acute (3) Chronic mental illness Status: Chronic (4) Charcot foot due to diabetes mellitus (5) Polypharmacy (6) JENNA (obstructive sleep apnea) Status: Chronic (7) Debility (8) Angina pectoris Status: Chronic (9) CAD (coronary artery disease) Clinical Quality Measures DVT/VTE Risk/Contraindication: Risk Factor Score Per Nursin RFS Level Per Nursing on Admit: 4+=Very High SAWYER TELLO DO Apr 21, 2019 12:09 POS
--- NOTE | 2019-04-21 13:17 | Pulmonary Consultation ---
History of Present Illness History of Present Illness Date of Admission Reason for Visit: Atrial fibrillation Allergies and Home Medications Allergies Coded Allergies: amylase (Verified Allergy, Unknown, 08/07/15) black cohosh (Verified Allergy, Unknown, 08/07/15) cellulase (Verified Allergy, Unknown, 08/07/15) glyburide (Verified Allergy, Unknown, 08/07/15) isosorbide (Verified Allergy, Unknown, 08/07/15) lipase (Verified Allergy, Unknown, 08/07/15) protease (Verified Allergy, Unknown, 08/07/15) Home Medications Aspirin 81 Mg Tab.chew, 81 MG PO DAILY Prescribed by: SAWYER TELLO on 04/15/19 121 Atorvastatin Calcium 80 Mg Tablet, 80 MG PO HS, (Reported) Calcium Carbonate/Vitamin D3 1 Each Tablet, 1 TAB PO BID, (Reported) Cetirizine HCl 10 Mg Tablet, 10 MG PO DAILY, (Reported) Cholecalciferol (Vitamin D3) 1,000 Unit Capsule, 2,000 UNIT PO 1200, (Reported) Cyclobenzaprine HCl 10 Mg Tablet, 10 MG PO TID, (Reported) Cyclosporine 1 Each Droperette, 1 DROP OU BID, (Reported) Diltiazem HCl 240 Mg Cap.er.24h, 240 MG PO DAILY, (Reported) Ferrous Sulfate 325 Mg Tablet, 325 MG PO 1800, (Reported) Fluticasone/Vilanterol 1 Each Blst.w.dev, 1 PUFF INH DAILY, (Reported) Gabapentin 800 Mg Tablet, 800 MG PO QID, (Reported) Glucosamine/D3/Boswellia Nellie 1 Each Tablet, 1 TAB PO BID, (Reported) Hydroxyzine HCl 10 Mg Tablet, 10 MG PO TID PRN for ANXIETY Prescribed by: SAWYER TELLO on 04/15/191218 Imipramine HCl 50 Mg Tablet, 50 MG PO HS, (Reported) Insulin Aspart 300 Units/3 Ml Solution, 6 UNITS SQ TIDAC, (Reported) Insulin Glargine,Hum.rec.anlog 100 Unit/1 Ml Vial, 20 UNIT SQ HS, (Reported) Lisinopril 20 Mg Tablet, 20 MG PO DAILY, (Reported) Metformin HCl 1,000 Mg Tablet, 1,000 MG PO BID, (Reported) Mineral Oil/Petrolatum,White 3.5 Gm Oint...g., OU HS, (Reported) Mirabegron 50 Mg Tab.er.24h, 50 MG PO DAILY, (Reported) Multivitamin with Minerals 1 Each Tablet, 1 TAB PO DAILY, (Reported) Nitrofurantoin Macrocrystal 100 Mg Capsule, 100 MG PO 1800 Prescribed by: SAWYER TELLO on 04/15/19 1219 [place] 3 Polyunsat Fatty Acids 1,000 Mg Cap, 1,000 MG PO TID, (Reported) Oxycodone HCl/Acetaminophen 1 Each Tablet, 1 EACH PO Q6H PRN for PAIN-MODERATE (5-7), (Reported) Polyethylene Glycol 3350 17 Gm Powd.pack, 17 GM PO DAILY PRN for CONSTIPATION- 2ND LINE, (Reported) Polyvinyl Alcohol/Povidone 15 Ml Drops, 2 DROPS OU Q2H PRN for DRY EYES, (Reported) Prasugrel HCl 10 Mg Tablet, 10 MG PO DAILY, (Reported) Primidone 250 Mg Tablet, 250 MG PO TID, (Reported) Ranitidine HCl 150 Mg Tablet, 150 MG PO DAILY PRN for HEARTBURN, (Reported) Solifenacin Succinate 10 Mg Tablet, 10 MG PO 1600 Prescribed by: SAWYER TELLO on 04/15/19 1219 Triamcinolone Acet 15 Gm Cr, 15 GM TP BID Prescribed by: SAWYER TELLO on 03/08/19 0931 Venlafaxine HCl 75 Mg Cap.er.24h, 75 MG PO DAILY, (Reported) Warfarin Sodium 4 Mg Tablet, 4 MG PO SuTuThSa@1600, (Reported) Warfarin Sodium 4 Mg Tablet, 2 MG PO MoWeFr@1600, (Reported) Past Ubidofk-Mmiofh-Gvrupy Hx Past Med/Social Hx: Reviewed Nursing Past Med/Soc Hx Patient Social History Alcohol Use: Denies Use Recreational Drug Use: No Smoking Status: Former Smoker Type Used: Cigarettes Former Smoker, Quit: May 18, 1980 2nd Hand Smoke Exposure: No Recent Foreign Travel: No Contact w/Someone Who Travel: No Recent Infectious Disease Expo: No Recent Hopitalizations: No Physical Abuse: No Sexual Abuse: No Mistreated: No Fear: No Immunizations Up To Date Tetanus Booster (TDap): Unknown PED Vaccines UTD: Yes Date of Pneumonia Vaccine: Feb 13, 2019 Date of Influenza Vaccine: Feb 13, 2019 Seasonal Allergies Seasonal Allergies: No Past Medical History Surgeries: Yes (STENTS PLACED NOVEMBER 2018) Cardiac, Coronary Stent, Eye Surgery, Orthopedic Respiratory: Yes Asthma, Sleep Apnea Currently Using CPAP: Yes Currently Using BIPAP: No Cardiac: Yes Atrial Fibrillation, Chronic Edema/Swelling, Coronary Artery Disease, Deep Vein Thrombosis, Heart Attack, High Cholesterol, Hypertension Neurological: Yes Neuropathy 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 Disorders: Yes Female 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 Disorders: Denies 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 Sexually Transmitted Disease: No HIV/AIDS: No Genitourinary: Yes UTI-Chronic Gastrointestinal: Yes Gastroesophageal Reflux, Chronic Constipation Musculoskeletal: Yes Degenerate Disk Disease, Arthritis, Chronic Back Pain Endocrine: Yes (MORBID OBESITY) Diabetes, Insulin dep HEENT: Yes Cataract Loss of Vision: Bilateral Hearing Impairment: Denies Cancer: No Uterine Psychosocial: Yes Anxiety, Depression Integumentary: No Blood Disorders: No Adverse Reaction/Blood Tranf: No Family Medical History Cardiovascular disease 19 FATHER 19 MOTHER Colon cancer 19 FATHER 19 MOTHER Diabetes mellitus 19 MOTHER G8 BROTHER G8 SISTER Myocardial infarction 19 FATHER No Pertinent Family Hx Sepsis Event Evaluation Height, Weight, BMI Height: 5'10.50" Weight: 302lbs. 0.0oz. 136.579990nl; 40.00 BMI Method:Stated Exam Exam Vital Signs Date Time Temp Pulse Resp B/P (MAP) Pulse Ox O2 Delivery O2 Flow Rate FiO2 04/21/19 12:00 128 7 119/85 (96) 97 Room Air 04/21/19 12:00 36.0 04/21/19 11:00 105 15 100/68 (79) 99 Room Air 04/21/19 10:34 121 04/21/19 10:00 117 23 101/69 (80) 96 Room Air 04/21/19 09:00 140 15 110/78 (89) Room Air 04/21/19 08:00 123 18 106/73 (84) 97 Room Air 04/21/19 07:00 115 04/21/19 07:00 90 30 156/97 (116) 97 Room Air 04/21/19 06:00 112 22 101/71 (81) 94 Room Air 04/21/19 05:00 97 16 102/63 (76) 92 Room Air 04/21/19 04:15 88 18 99/73 (82) 95 Room Air 04/21/19 04:00 95 Room Air 04/21/19 03:00 129 32 114/83 (93) 90 Room Air 04/21/19 02:00 106 32 91/77 (82) 92 Room Air 04/21/19 01:30 117 19 100/71 (81) 92 Room Air 04/21/19 01:00 113 04/21/19 01:00 113 16 87/64 (72) 93 Room Air 04/21/19 00:00 96 Room Air 04/21/19 00:00 106 19 104/65 (78) 93 Room Air 04/20/19 23:15 100 17 91/61 (71) 94 Room Air 04/20/19 23:03 98 14 86/69 (75) 95 Room Air 04/20/19 22:15 101 19 107/75 (86) 96 Room Air 04/20/19 22:00 125 9 113/68 (83) 94 Room Air 04/20/19 21:30 126 13 117/85 (96) 99 Room Air 04/20/19 21:00 99 Room Air 04/20/19 21:00 124 14 94/74 (81) 98 Room Air 04/20/19 20:45 114 19 103/69 (80) 96 Room Air 04/20/19 20:30 117 26 114/98 (103) Room Air 04/20/19 20:15 91 20 95 Room Air 04/20/19 20:00 35.6 04/20/19 20:00 129 14 109/90 (96) 97 Room Air 04/20/19 20:00 97 Room Air 04/20/19 19:59 105 18 106/96 (99) 96 Room Air 04/20/19 19:45 114 10 93 Room Air 04/20/19 19:30 121 15 98/80 (86) 94 Room Air 04/20/19 19:15 103 99/65 (76) 96 Room Air 04/20/19 19:05 94 04/20/19 19:04 83 115/89 (98) 91 Room Air 04/20/19 19:00 99 Room Air 04/20/19 18:26 98 22 117/73 94 Room Air 04/20/19 16:08 110 136/62 04/20/19 15:24 125 20 129/81 (97) 95 Room Air I & O 04/21/19 07:00 Intake Total 650 ml Balance 650 ml Height & Weight Height: 5'10.50" Weight: 302lbs. 0.0oz. 136.328760ul; 40.00 BMI Method:Stated General Appearance: No Apparent Distress, WD/WN HEENT: PERRL/EOMI, TMs Normal, Normal ENT Inspection Neck: Full Range of Motion, Normal Inspection, Supple Respiratory: Chest Non Tender, Lungs Clear, Normal Breath Sounds, No Accessory Muscle Use Cardiovascular: Systolic Murmur, Irregularly Irregular, Tachycardia Capillary Refill: Less Than 3 Seconds Extremity: Normal Inspection, Non Tender, Pedal Edema Neurologic/Psychiatric: Alert, Oriented x3, No Motor/Sensory Deficits Skin: Normal Color, Warm/Dry Lymphatic: No Adenopathy Results Lab Laboratory Tests 04/20/19 15:30 04/21/19 03:59 Assessment/Plan Assessment/Plan Paroxysmal Afib `-Cardiology following CAD HTN CAD - Last cath 2018 with sent placement. Hx of DVT 30yrs ago HTN JENNA -CPAP therapy - I follow as an out pt DM Obesity TARAH GARVEY DO Apr 21, 2019 13:17 POS
[2019-04-21] MEDS ORDERED: NON-FORMULARY MEDICATION 1 EA EA (Hydroxyzine HCl 10 MG) PO PRN (15:00)
[2019-04-21] MEDS ORDERED: POLYVINYL ALCOHOL OU PRN (15:00)
[2019-04-21] MEDS ORDERED: NON-FORMULARY MEDICATION 1 EA EA (Ranitidine HCl 150 MG) PO PRN (15:00)
[2019-04-21] MEDS ORDERED: PATIENT MAY USE OWN MEDS, ALL MC SCH (15:00)
[2019-04-21] MEDS ORDERED: [UNRECOGNIZED DRUG - OTHER] OU PRN (15:00)
[2019-04-21] MEDS: DILTIAZEM 240 MG (CARDIZEM CD) CAP PO SCH (15:00)
[2019-04-21] MEDS ORDERED: POVIDONE OU PRN (15:00)
--- NOTE | 2019-04-21 15:00 | NUR ---
PATIENT CONVERTED TO SINUS RYTHM, DR JOSE NOTIFIED, SKINNY DUFFY
[2019-04-21] MEDS: ceTIRizine 10 MG (ZyrTEC) TAB NON-FORMULARY PO SCH (15:30)
[2019-04-21] MEDS ORDERED: warFARin 2 MG (COUMADIN) TAB PO SCH (16:00)
[2019-04-21] MEDS: WARFARIN 4 MG TABLET PO SCH ×2 (16:00→21:34)
[2019-04-21] MEDS: PRASUGREL 10 MG (EFFIENT) TABLET PO SCH (16:39)
[2019-04-21] MEDS: SOLIFENACIN 10 MG PO SCH (16:40)
[2019-04-21] MEDS: CALCIUM CARB + VIT D 600 MG (CALCARB + D) TAB PO SCH (16:46)
[2019-04-21] MEDS: OMEGA 3 (FISH OIL) 1000 MG CAP PO SCH (16:48)
[2019-04-21] MEDS: [UNRECOGNIZED DRUG - REMARK] PO SCH ×2 (16:51→21:30)
--- NOTE | 2019-04-21 17:29 | NUR ---
PATIENT GLUCOSE 79, NO INSULIN GIVEN
[2019-04-21] MEDS: NITROFURANTOIN 100 MG PO SCH (18:29)
[2019-04-21] MEDS: FERROUS GLUCONATE 324 MG TABLET PO SCH (18:29)
[2019-04-21] MEDS: NS IV 1000 ML 1,000 ML IV SCH (20:47)
[2019-04-21] MEDS ORDERED: TRIAMCINOLONE 0.1% CR (KENALOG) 15 GM TUBE TP SCH (21:00)
[2019-04-21] MEDS ORDERED: NON-FORMULARY MEDICATION 1 EA EA (Cyclosporine (Restasis) 1 DROP) OU SCH (21:00)
[2019-04-21] MEDS: oxyCODONE/APAP 10/325MG (PERCOCET 10) TABLET PO PRN (21:23)
[2019-04-21] MEDS: CYCLOBENZAPRINE 10 MG (FLEXERIL) TAB PO SCH (21:29)
[2019-04-21] MEDS: PRIMIDONE 250MG (MYSOLINE) TAB PO SCH (21:33)
[2019-04-21] MEDS: inSUlin GLARGINE 1000 UNITS/10 ML (LANTUS) VIAL SQ SCH (21:38)
[2019-04-22 01:37] VITALS: BP 111/75
[2019-04-22] MEDS: DILTIAZEM 125 MG/NS 100 ML IV SCH ×4 (01:48→15:30)
[2019-04-22 03:48] LABS: BASOPHILS % (AUTO) 0 % (0-10); EOSINOPHILS # (AUTO) 0.5 10^3/uL (0.0-0.3); EOSINOPHILS % (AUTO) 6 % (0-10); HEMATOCRIT 35 % (35-52); HEMOGLOBIN 11.6 G/DL (11.5-16.0); LYMPHOCYTES # (AUTO) 3.5 X 10^3 (1.0-4.0); LYMPHOCYTES % (AUTO) 41 % (12-44); MEAN CORPUSCULAR HEMOGLOBIN 29 PG (25-34); MEAN CORPUSCULAR HGB CONC 33 G/DL (32-36); MEAN CORPUSCULAR VOLUME 87 FL (80-99); MEAN PLATELET VOLUME 9.8 FL (7.4-10.4); MONOCYTES # (AUTO) 0.8 X 10^3 (0.0-1.0); MONOCYTES % (AUTO) 9 % (0-12); NEUTROPHILS # (AUTO) 3.8 X 10^3 (1.8-7.8); NEUTROPHILS % (AUTO) 44 % (42-75); PLATELET COUNT 261 10^3/uL (130-400); RED CELL DISTRIBUTION WIDTH 15.9 % (10.0-14.5); WHITE BLOOD COUNT 8.6 10^3/uL (4.3-11.0)
--- NOTE | 2019-04-22 03:56 | Pulmonary Progress Note ---
Subjective Time Seen by a Provider: 03:56 Sepsis Event Evaluation Height, Weight, BMI Height: 5'10.50" Weight: 302lbs. 0.0oz. 136.764005hm; 40.00 BMI Method:Stated Exam Exam Vital Signs Date Time Temp Pulse Resp B/P (MAP) Pulse Ox O2 Delivery O2 Flow Rate FiO2 04/22/19 03:20 98 NIV CPAP 21 04/22/19 01:37 36.2 73 16 111/75 (87) 93 NIV CPAP 04/22/19 01:00 74 04/22/19 00:00 94 Room Air 04/21/19 23:25 76 04/21/19 21:25 77 04/21/19 21:00 75 14 132/86 (101) 95 Room Air 04/21/19 21:00 98 Room Air 04/21/19 20:00 36.2 04/21/19 20:00 95 Room Air 04/21/19 19:00 76 04/21/19 18:00 76 14 146/93 (110) 98 Room Air 04/21/19 17:00 78 15 108/88 (95) 98 Room Air 04/21/19 16:00 95 Room Air 04/21/19 15:00 86 17 99 Room Air 04/21/19 14:22 79 04/21/19 14:00 97 19 113/75 (88) 97 Room Air 04/21/19 13:00 102 04/21/19 13:00 113 04/21/19 13:00 112 18 Room Air 04/21/19 12:00 128 7 119/85 (96) 97 Room Air 04/21/19 12:00 36.0 04/21/19 12:00 95 Room Air 04/21/19 11:00 105 15 100/68 (79) 99 Room Air 04/21/19 10:34 121 04/21/19 10:00 117 23 101/69 (80) 96 Room Air 04/21/19 09:00 99 Room Air 04/21/19 09:00 140 15 110/78 (89) Room Air 04/21/19 08:00 123 18 106/73 (84) 97 Room Air 04/21/19 08:00 95 Room Air 04/21/19 07:00 115 04/21/19 07:00 90 30 156/97 (116) 97 Room Air 04/21/19 06:00 112 22 101/71 (81) 94 Room Air 04/21/19 05:00 97 16 102/63 (76) 92 Room Air 04/21/19 04:15 88 18 99/73 (82) 95 Room Air 04/21/19 04:00 95 Room Air I & O 04/22/19 07:00 Intake Total 1410 ml Balance 1410 ml Height & Weight Height: 5'10.50" Weight: 302lbs. 0.0oz. 136.764927rb; 40.00 BMI Method:Stated General Appearance: No Apparent Distress, WD/WN HEENT: PERRL/EOMI, TMs Normal, Normal ENT Inspection Neck: Full Range of Motion, Normal Inspection, Supple Respiratory: Chest Non Tender, Lungs Clear, Normal Breath Sounds, No Accessory Muscle Use Cardiovascular: Systolic Murmur, Irregularly Irregular, Tachycardia Capillary Refill: Less Than 3 Seconds Extremity: Normal Inspection, Non Tender, Pedal Edema Neurologic/Psychiatric: Alert, Oriented x3, No Motor/Sensory Deficits Skin: Normal Color, Warm/Dry Lymphatic: No Adenopathy Results Lab Laboratory Tests 04/20/19 15:30 04/21/19 03:59 04/22/19 03:39 Assessment/Plan Assessment/Plan Paroxysmal Afib -Cardiology following -Currently on Sotalol CAD HTN CAD - Last cath 2018 with sent placement. Hx of DVT 30yrs ago HTN JENNA -CPAP therapy - I follow as an out pt DM Obesity TARAH GARVEY DO Apr 22, 2019 03:56 POS
[2019-04-22 04:00] LABS: INR 1.8 (0.8-1.4)
[2019-04-22 04:11] LABS: BUN/CREATININE RATIO 28; CALCIUM 8.9 MG/DL (8.5-10.1); CARBON DIOXIDE 23 MMOL/L (21-32); CHLORIDE 104 MMOL/L (98-107); CREATININE SERUM 0.69 MG/DL (0.60-1.30); GFR ESTIMATED > 60; GLUCOSE 105 MG/DL (70-105); MAGNESIUM 1.8 MG/DL (1.6-2.4); PHOSPHORUS 3.9 MG/DL (2.3-4.7); POTASSIUM 4.4 MMOL/L (3.6-5.0); SODIUM 140 MMOL/L (135-145)
[2019-04-22 06:24] VITALS: BP 127/76
[2019-04-22] MEDS: VENlafaxine XR 75 MG (EFFEXOR XR) CAP PO SCH (07:00)
[2019-04-22] MEDS: OMEGA 3 (FISH OIL) 1000 MG CAP PO SCH ×3 (07:00→17:00)
[2019-04-22] MEDS: CALCIUM CARB + VIT D 600 MG (CALCARB + D) TAB PO SCH ×2 (07:00→17:00)
[2019-04-22] MEDS: MULTIVIT W/MINERALS TAB (THERAGRAN M) PO SCH (07:00)
--- NOTE | 2019-04-22 07:57 | Cardiology Progress Note ---
Subjective Date Seen by Provider: Apr 22, 2019 Time Seen by Provider: 07:54 Subjective/Events-last exam Patient is laying down in bed, feeling better. No new complaint Review of Systems General: No Chills, No Night Sweats, No Fatigue, No Malaise, No Appetite, No Other HEENT: No Head Aches, No Visual Changes, No Eye Pain, No Ear Pain, No Dysphasia, No Sinus Congestion, No Post Nasal Drip, No Sore Throat, No Other Pulmonary: No Dyspnea, No Cough, No Pleuritic Chest Pain, No Other Cardiovascular: No: Chest Pain, Palpitations, Orthopnea, Paroxysmal Noc. Dyspnea, Edema, Lt Headedness, Other Objective-Cardiology Exam Last Set of Vital Signs Vital Signs 04/22/19 04/22/19 03:20 06:24 Temp 36.6 Pulse 76 Resp 14 B/P (MAP) 127/76 (93) Pulse Ox 97 O2 Delivery NIV CPAP FiO2 21 Capillary Refill : Less Than 3 Seconds I&O Intake and Output 04/22/19 00:00 Intake Total 1660 ml Balance 1660 ml Intake Oral 1660 ml # Voids 7 General: Alert, Oriented X3, Cooperative HEENT: Atraumatic, PERRLA Neck: Supple, No JVD, No Thyromegaly Lungs: Clear to Auscultation, Normal Air Movement Heart: Regular Rate, Normal S1, Normal S2, No Murmurs Abdomen: Normal Bowel Sounds, Soft, No Tenderness, No Hepatosplenomegaly, No Masses Extremities: No Clubbing, No Cyanosis, No Edema, Normal Pulses, No Tenderness/Swelling Skin: No Rashes, No Breakdown, No Significant Lesion Neuro: Normal Gait, Normal Speech, Strength at 5/5 X4 Ext, Normal Tone, Sensation Intact Psych/Mental Status: Mental Status NL, Mood NL Results Lab Laboratory Tests 04/22/19 03:39 A/P-Cardiology Admission Diagnosis Paroxysmal atrial fibrillation Palpitation Coronary artery disease Hypertension Assessment/Plan Paroxysmal atrial fibrillation, back in atrial fibrillation with rapid ventricular response, failed Multaq treatment, continue on sotalol, continue to monitor QTC Monitor daily EKG and QT interval while loading with sotalol, daily QTC is 454 Palpitation, fatigue and loss of energy secondary to atrial fibrillation, feeling better. Continue to monitor Coronary artery disease, underwent cardiac catheterization November 22, 2018 revealing severe mid LAD stenosis of 80-90 percent, very tortuous LAD with difficult visualization. Underwent stent placement using resolute integrity 2.5 x 26 mm stent. Maintained on Effient and aspirin History of DVT, first episode occurred about 30 years ago, second episode occurred in July 2015, on the left side while receiving physical therapy for back injury. Maintained on Coumadin Hypertension, monitor blood pressure Hyperlipidemia, monitor lipids Mild obstructive sleep apnea, followed and managed by Dr. Colmenares Diabetes mellitus, followed and managed by primary care physician. Back pain and joint pain. History of Charcot joint. BMI is 40, we discussed weight loss and exercise. Clinical Quality Measures DVT/VTE Risk/Contraindication: Risk Factor Score Per Nursin RFS Level Per Nursing on Admit: 4+=Very High CHARLY JOSE MD Apr 22, 2019 07:57 POS
[2019-04-22 08:00] VITALS: BP 137/90
[2019-04-22] MEDS: ceTIRizine 10 MG (ZyrTEC) TAB NON-FORMULARY PO SCH (09:00)
[2019-04-22] MEDS: PRIMIDONE 250MG (MYSOLINE) TAB PO SCH ×3 (09:00→21:20)
[2019-04-22] MEDS: lisINopril 20 MG (PRINIVIL) TABLET PO SCH (09:00)
[2019-04-22] MEDS: MIRABEGRON 50 MG TABLET (MYRBETRIQ) NON-FORMULARY PO SCH (09:00)
[2019-04-22] MEDS ORDERED: NON-FORMULARY MEDICATION 1 EA EA (Fluticasone/Vilanterol (Breo Ellipta 200-25 Mcg INH) 1 P INH SCH (09:00)
[2019-04-22] MEDS: [UNRECOGNIZED DRUG - REMARK] PO SCH ×4 (09:00→21:15)
[2019-04-22] MEDS: SOTALOL 80 MG (BETAPACE) TAB PO SCH ×2 (09:00→21:52)
[2019-04-22] MEDS: PRASUGREL 10 MG (EFFIENT) TABLET PO SCH (09:00)
[2019-04-22] MEDS: ASPIRIN 81 MG CHEW (CHILDREN'S ASA) PO SCH (09:00)
[2019-04-22] MEDS: DILTIAZEM 240 MG (CARDIZEM CD) CAP PO SCH (09:00)
[2019-04-22] MEDS: CYCLOBENZAPRINE 10 MG (FLEXERIL) TAB PO SCH ×3 (09:00→21:16)
[2019-04-22] MEDS: oxyCODONE/APAP 10/325MG (PERCOCET 10) TABLET PO PRN ×3 (09:30→23:03)
[2019-04-22 12:00] VITALS: BP 149/99
[2019-04-22] MEDS: VITAMIN D3 1,000 UNITS (CHOLECALCIFEROL) TABLET PO SCH (12:00)
--- NOTE | 2019-04-22 12:15 | Progress Note - Hospitalist ---
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 Systems General: Fatigue Gastrointestinal: Constipation Objective Exam Vital Signs Vital Signs Date Time Temp Pulse Resp B/P (MAP) Pulse Ox O2 Delivery O2 Flow Rate FiO2 04/22/19 12:00 73 17 149/99 (116) 95 Room Air 04/22/19 11:44 36.1 04/22/19 03:20 21 Capillary Refill : Less Than 3 Seconds General Appearance: No Apparent Distress, WD/WN, Chronically ill, Obese Respiratory: Chest Non Tender, Lungs Clear, Normal Breath Sounds, No Accessory Muscle Use, No Respiratory Distress Cardiovascular: Regular Rate, Rhythm, No Edema, No Gallop, No JVD, No Murmur, Normal Peripheral Pulses Neurologic/Psychiatric: Alert, Oriented x3, No Motor/Sensory Deficits, Normal Mood/Affect Results/Procedures Lab Laboratory Tests 04/22/19 03:39 Patient resulted labs reviewed. Assessment/Plan Assessment and Plan Assess & Plan/Chief Complaint Assessment: Atrial fibrillation with rapid ventricular response refractory and resistant now in normal sinus rhythm on sotalol PAF OAC with Coumadin CAD s/p stent placement summer 2018 Bilateral Charcot feet on chronic pain meds Neuropathy Polypharmacy DM HTN HLP Plan: Dr Calvert consultation Warfarin maintained Monitor closely Home meds Clinical Quality Measures DVT/VTE Risk/Contraindication: Risk Factor Score Per Nursin RFS Level Per Nursing on Admit: 4+=Very High SAWYER TELLO DO Apr 22, 2019 12:15 POS
--- NOTE | 2019-04-22 12:15 | NUR ---
2 HOURS POST SOTALOL EKG SENT TO DR JOSE VIA TEXT, NO RDERS AT THIS TIME.
[2019-04-22] MEDS: NS IV 1000 ML 1,000 ML IV SCH (15:45)
[2019-04-22] MEDS: WARFARIN 4 MG TABLET PO SCH (16:00)
[2019-04-22] MEDS: SOLIFENACIN 10 MG PO SCH (16:00)
[2019-04-22] MEDS: NITROFURANTOIN 100 MG PO SCH (17:27)
[2019-04-22] MEDS: FERROUS GLUCONATE 324 MG TABLET PO SCH (18:00)
[2019-04-22 20:00] VITALS: BP 132/76
[2019-04-22] MEDS: inSUlin GLARGINE 1000 UNITS/10 ML (LANTUS) VIAL SQ SCH (21:17)
[2019-04-23 03:31] LABS: INR 1.9 (0.8-1.4); PROTHROMBIN TIME PATIENT 22.7 SEC (12.2-14.7)
[2019-04-23 04:00] VITALS: BP 125/79
[2019-04-23] MEDS: DILTIAZEM 125 MG/NS 100 ML IV SCH ×4 (04:12→16:31)
--- NOTE | 2019-04-23 06:16 | Pulmonary Progress Note ---
Sepsis Event Evaluation Height, Weight, BMI Height: 5'10.50" Weight: 302lbs. 0.0oz. 136.353075yf; 40.00 BMI Method:Stated Exam Exam Vital Signs Date Time Temp Pulse Resp B/P (MAP) Pulse Ox O2 Delivery O2 Flow Rate FiO2 04/23/19 01:00 84 04/23/19 01:00 82 04/23/19 00:18 82 04/23/19 00:15 36.0 04/23/19 00:00 98 Room Air 04/22/19 21:52 70 04/22/19 21:00 98 Room Air 04/22/19 20:00 96 Room Air 04/22/19 20:00 35.8 04/22/19 20:00 72 17 132/76 (94) 93 Room Air 04/22/19 19:00 90 04/22/19 16:00 90 22 Room Air 04/22/19 16:00 96 NIV CPAP 04/22/19 15:36 36.0 04/22/19 13:12 76 04/22/19 13:00 82 04/22/19 12:00 73 17 149/99 (116) 95 Room Air 04/22/19 12:00 96 NIV CPAP 04/22/19 11:44 36.1 04/22/19 09:00 98 Room Air 04/22/19 09:00 81 04/22/19 08:00 77 20 137/90 (106) 94 Room Air 04/22/19 08:00 96 NIV CPAP 04/22/19 07:00 72 04/22/19 06:24 36.6 76 14 127/76 (93) 97 NIV CPAP I & O 04/23/19 07:00 Intake Total 1340 ml Balance 1340 ml Height & Weight Height: 5'10.50" Weight: 302lbs. 0.0oz. 136.672548xp; 40.00 BMI Method:Stated General Appearance: No Apparent Distress, WD/WN, Chronically ill, Obese HEENT: PERRL/EOMI, Normal ENT Inspection, Pharynx Normal, Moist Mucous Membranes Neck: Full Range of Motion, Normal Inspection, Non Tender Respiratory: Chest Non Tender, Lungs Clear, Normal Breath Sounds, No Accessory Muscle Use, No Respiratory Distress Cardiovascular: Regular Rate, Rhythm, No Edema, No Gallop, No JVD, No Murmur, Normal Peripheral Pulses Capillary Refill: Less Than 3 Seconds Extremity: Normal Capillary Refill, Normal Inspection, Normal Range of Motion, Non Tender, No Calf Tenderness, No Pedal Edema Neurologic/Psychiatric: Alert, Oriented x3, No Motor/Sensory Deficits, Normal Mood/Affect Skin: Normal Color, Warm/Dry Lymphatic: No Adenopathy Results Lab Laboratory Tests 04/22/19 03:39 Assessment/Plan Assessment/Plan Paroxysmal Afib -Cardiology following -Currently on Sotalol CAD HTN CAD - Last cath 2018 with sent placement. Hx of DVT 30yrs ago HTN JENNA -CPAP therapy - I follow as an out pt DM Obesity TARAH GARVEY DO Apr 23, 2019 06:16 POS
[2019-04-23] MEDS: OMEGA 3 (FISH OIL) 1000 MG CAP PO SCH ×3 (06:39→16:45)
[2019-04-23] MEDS: MULTIVIT W/MINERALS TAB (THERAGRAN M) PO SCH (06:40)
[2019-04-23] MEDS: VENlafaxine XR 75 MG (EFFEXOR XR) CAP PO SCH (06:40)
[2019-04-23] MEDS: oxyCODONE/APAP 10/325MG (PERCOCET 10) TABLET PO PRN ×3 (06:45→20:26)
[2019-04-23] MEDS: CALCIUM CARB + VIT D 600 MG (CALCARB + D) TAB PO SCH ×2 (06:49→16:46)
[2019-04-23] MEDS: NS IV 1000 ML 1,000 ML IV SCH ×2 (07:55→11:32)
[2019-04-23 07:58] VITALS: BP 143/72
--- NOTE | 2019-04-23 08:04 | Cardiology Progress Note ---
Subjective Date Seen by Provider: Apr 23, 2019 Time Seen by Provider: 08:01 Subjective/Events-last exam Patient is laying down in bed, feeling better, maintaining sinus rhythm Review of Systems General: No Chills, No Night Sweats, No Fatigue, No Malaise, No Appetite, No Other HEENT: No Head Aches, No Visual Changes, No Eye Pain, No Ear Pain, No Dysphasia, No Sinus Congestion, No Post Nasal Drip, No Sore Throat, No Other Pulmonary: No Dyspnea, No Cough, No Pleuritic Chest Pain, No Other Cardiovascular: No: Chest Pain, Palpitations, Orthopnea, Paroxysmal Noc. Dyspnea, Edema, Lt Headedness, Other Objective-Cardiology Exam Last Set of Vital Signs Vital Signs 04/22/19 04/23/19 04/23/19 03:20 04:00 07:00 Temp 36.7 Pulse 83 Resp 15 B/P (MAP) 125/79 (94) Pulse Ox 98 O2 Delivery NIV CPAP FiO2 21 Capillary Refill : Less Than 3 Seconds I&O Intake and Output 04/23/19 00:00 Intake Total 1740 ml Balance 1740 ml Intake Oral 1740 ml # Voids 6 General: Alert, Oriented X3, Cooperative HEENT: Atraumatic, PERRLA Neck: Supple, No JVD, No Thyromegaly Lungs: Clear to Auscultation, Normal Air Movement Heart: Regular Rate, Normal S1, Normal S2, No Murmurs Abdomen: Normal Bowel Sounds, Soft, No Tenderness, No Hepatosplenomegaly, No Masses Extremities: No Clubbing, No Cyanosis, No Edema, Normal Pulses, No Tenderness/Swelling Skin: No Rashes, No Breakdown, No Significant Lesion Neuro: Normal Gait, Normal Speech, Strength at 5/5 X4 Ext, Normal Tone, Sensation Intact Psych/Mental Status: Mental Status NL, Mood NL Results Lab Laboratory Tests Test 04/22/19 11:46 04/22/19 16:44 04/23/19 03:10 Range/Units Glucometer 132 H 106 70-110 MG/DL Prothrombin Time 22.7 H 12.2-14.7 SEC INR Comment 1.9 H 0.8-1.4 A/P-Cardiology Admission Diagnosis Paroxysmal atrial fibrillation Palpitation Coronary artery disease Hypertension Assessment/Plan Paroxysmal atrial fibrillation, failed Multaq treatment, started on sotalol on April 21, 2019, converted to sinus rhythm, QTC is borderline, I will consult Dr. Russell for possible A. fib ablation Monitor daily EKG and QT interval while loading with sotalol Palpitation, fatigue and loss of energy secondary to atrial fibrillation, feeling better. Continue to monitor Coronary artery disease, underwent cardiac catheterization November 22, 2018 revealing severe mid LAD stenosis of 80-90 percent, very tortuous LAD with difficult visualization. Underwent stent placement using resolute integrity 2.5 x 26 mm stent. Maintained on Effient and aspirin History of DVT, first episode occurred about 30 years ago, second episode occurred in July 2015, on the left side while receiving physical therapy for back injury. Maintained on Coumadin Hypertension, monitor blood pressure Hyperlipidemia, monitor lipids Mild obstructive sleep apnea, followed and managed by Dr. Colmenares Diabetes mellitus, followed and managed by primary care physician. Back pain and joint pain. History of Charcot joint. BMI is 40, we discussed weight loss and exercise. Clinical Quality Measures DVT/VTE Risk/Contraindication: Risk Factor Score Per Nursin RFS Level Per Nursing on Admit: 4+=Very High CHARLY JOSE MD Apr 23, 2019 08:04 POS
[2019-04-23] MEDS: SOTALOL 80 MG (BETAPACE) TAB PO SCH ×2 (09:08→21:46)
[2019-04-23] MEDS: DILTIAZEM 240 MG (CARDIZEM CD) CAP PO SCH (09:09)
[2019-04-23] MEDS: ASPIRIN 81 MG CHEW (CHILDREN'S ASA) PO SCH (09:09)
[2019-04-23] MEDS: MIRABEGRON 50 MG TABLET (MYRBETRIQ) NON-FORMULARY PO SCH (09:10)
[2019-04-23] MEDS: PRASUGREL 10 MG (EFFIENT) TABLET PO SCH (09:10)
[2019-04-23] MEDS: CYCLOBENZAPRINE 10 MG (FLEXERIL) TAB PO SCH ×3 (09:11→21:48)
[2019-04-23] MEDS: PRIMIDONE 250MG (MYSOLINE) TAB PO SCH ×3 (09:12→16:44)
[2019-04-23] MEDS: lisINopril 20 MG (PRINIVIL) TABLET PO SCH (09:12)
[2019-04-23] MEDS: [UNRECOGNIZED DRUG - REMARK] PO SCH ×4 (09:13→21:50)
[2019-04-23] MEDS: ceTIRizine 10 MG (ZyrTEC) TAB NON-FORMULARY PO SCH (09:13)
[2019-04-23] MEDS: POLYETHYLENE GLYCOL 17 GM PO PRN (09:14)
[2019-04-23] MEDS ORDERED: ASPI-999 PO (09:25)
[2019-04-23] MEDS ORDERED: NITR100C PO (09:27)
[2019-04-23] MEDS ORDERED: SOLI10TA2 PO (09:27)
--- NOTE | 2019-04-23 09:50 | NUR ---
SPOKE WITH THE PT , SHE WAS RECENTLY DISCHARGED SO WE WENT THRU HER ORDER AND [facility] PT HAS ABLE TO TELL ME HOW/WHEN SHE TAKES EACH MED. SHE WAS TAKEN OFF METOPROLOL AND MULTAQ AND WAS STARTED ON ASPIRIN. A PRESCRIPTION FOR HYDROXYZINE WAS SENT INTO THE PHARMACY BUT DUE TO INSURANCE NOT COVERING IT SHE DID NOT PICK IT UP. THE FOLLOWING ARE F[facility] DATES [facility] THAT ARE NOT SHOWING ON THE EXT MED HISTORY: 11-24-2018 FERROUS SULFATE #100 11-26-2018 FISH OIL #300/100DS 12-05-2018 CETIRIZINE #90/90DS 12-15-2018 CALCIUM W/ VIT D #200/100DS 02-11-2019 METFORMIN #180/90DS 02-12-2019 RESTASIS 03-09-2019 VIT D #200 03-27-2019 MTV #100/100DS 04-03-2019 MIRALAX #510 GM 04-04-2019 VENLAFAXINE #30/30DS OTC MEDS: OSTEO BI FLEX ARTIFICIAL TEARS ZANTAC
[2019-04-23 12:53] VITALS: BP 144/82
[2019-04-23] MEDS: VITAMIN D3 1,000 UNITS (CHOLECALCIFEROL) TABLET PO SCH (12:58)
--- NOTE | 2019-04-23 13:04 | Electrophysiology Consultation ---
HPI-Cardiology Cardiology Consultation: Date of Consultation 04/23/19 Date of Admission Attending Physician Tia Tello DO Admitting Physician Martin Goode MD Consulting Physician Janiya RUSSELL MD HPI: Time Seen by a Provider: 08:30 Chief Complaint: Atrial fibrillation with RVR This is a 68-year-old lady, cardiac electrophysiology consultation has been recommended by Dr. Calvert to evaluate for advanced therapies for atrial fibrillation. She has history of CAD, status post recent drug-eluting stent in November 2018, diabetes, paroxysmal atrial fibrillation. She presented with palpi tations and rapid heart beating. She was found to be in atrial fibrillation with RVR. She was started on Cardizem infusion. She denied chest pain, syncope, near-syncope or lower extremity swelling. She denies active smoking. She denies family history of atrial fibrillation. Review of Systems-Cardiology Review of Systems Constitutional: As described under HPI; No As described under HPI, No no symptoms reported, No chills, No fever, No lightheadedness Eyes: No As described under HPI, No no symptoms reported, No blindness, No blurred vision, No contact lenses, No drainage, No decreased acuity, No foreign body sensation, No pain, No vision change Ears/Nose/Throat: No As described under HPI, No no symptoms reported, No chronic hearing loss, No ear discharge, No ear pain, No nasal drainage, No ul cerations Respiratory: No no symptoms reported; As described under HPI; No As described under HPI, No cough, No orthopnea, No shortness of breath, No SOB with excertion Cardiovascular: No no symptoms reported; As described under HPI; No As described under HPI, No chest pain, No edema, No irregular heart rate, No lightheadedness, No palpitations Gastrointestinal: No no symptoms reported, No As described under HPI, No abdomen distended, No abdominal pain, No blood streaked bowels, No constipation, No diarrhea, No nausea, No vomiting, No stool coloration changes Genitourinary: No As described under HPI, No burning, No dysuria, No discharge, No frequency, No flank pain, No hematuria, No urgency : Yes : No Skin: No rash, No skin related problems, No ulcerations Psychiatric/Neurological: No anxiety, No depression, No seizure, No focal weakness, No syncope Hematologic: No bleeding abnormalities DFK-Cirdri-Yjngrz Hx Patient Social History Marrital Status: single Employed/Student: retired Alcohol Use: Denies Use Recreational Drug Use: No Smoking Status: Former Smoker Former smoker/When Quit: Aug 07, 1980 Type Used: Cigarettes 2nd Hand Smoke Exposure: No Recent Foreign Travel: No Recent Infectious Disease Expo: No Hospitalization with Isolation: Denies Immunizations Up To Date Tetanus Booster (TDap): Unknown Date of Pneumonia Vaccine: Feb 13, 2019 Date of Influenza Vaccine: Feb 13, 2019 Past Medical History PMH As described under Assessment. Family Medical History Family History: Cardiovascular disease 19 FATHER 19 MOTHER Colon cancer 19 FATHER 19 MOTHER Diabetes mellitus 19 MOTHER G8 BROTHER G8 SISTER Myocardial infarction 19 FATHER Allergies and Home Medications Allergies Coded Allergies: amylase (Verified Allergy, Unknown, 08/07/15) black cohosh (Verified Allergy, Unknown, 08/07/15) cellulase (Verified Allergy, Unknown, 08/07/15) glyburide (Verified Allergy, Unknown, 08/07/15) isosorbide (Verified Allergy, Unknown, 08/07/15) lipase (Verified Allergy, Unknown, 08/07/15) protease (Verified Allergy, Unknown, 08/07/15) Home Medications Aspirin 81 Mg Tab.chew, 81 MG PO DAILY, (Reported) Atorvastatin Calcium 80 Mg Tablet, 80 MG PO HS, (Reported) Calcium Carbonate/Vitamin D3 1 Each Tablet, 1 TAB PO BID, (Reported) Cetirizine HCl 10 Mg Tablet, 10 MG PO DAILY, (Reported) Cholecalciferol (Vitamin D3) 1,000 Unit Capsule, 2,000 UNIT PO 1200, (Reported) Cyclobenzaprine HCl 10 Mg Tablet, 10 MG PO TID, (Reported) Cyclosporine 1 Each Droperette, 1 DROP OU BID, (Reported) Diltiazem HCl 240 Mg Cap.er.24h, 240 MG PO DAILY, (Reported) Ferrous Sulfate 325 Mg Tablet, 325 MG PO 1800, (Reported) LAST FILLED 11-24-2018 #100 Fluticasone/Vilanterol 1 Each Blst.w.dev, 1 PUFF INH DAILY, (Reported) Gabapentin 800 Mg Tablet, 800 MG PO QID, (Reported) Glucosamine/D3/Boswellia Nellie 1 Each Tablet, 1 TAB PO BID, (Reported) Imipramine HCl 50 Mg Tablet, 50 MG PO HS, (Reported) Insulin Aspart 300 Units/3 Ml Solution, 6 UNITS SQ TIDAC, (Reported) Insulin Glargine,Hum.rec.anlog 100 Unit/1 Ml Vial, 20 UNIT SQ HS, (Reported) Lisinopril 20 Mg Tablet, 20 MG PO DAILY, (Reported) Metformin HCl 1,000 Mg Tablet, 1,000 MG PO BID, (Reported) Mineral Oil/Petrolatum,White 3.5 Gm Oint...g., OU HS, (Reported) Mirabegron 50 Mg Tab.er.24h, 50 MG PO DAILY, (Reported) Multivitamin with Minerals 1 Each Tablet, 1 TAB PO DAILY, (Reported) Nitrofurantoin Macrocrystal 100 Mg Capsule, 100 MG PO DAILY, (Reported) [place] 3 Polyunsat Fatty Acids 1,000 Mg Cap, 1,000 MG PO TID, (Reported) LAST FILLED 11-26-2018 #300 Oxycodone HCl/Acetaminophen 1 Each Tablet, 1 EACH PO Q6H PRN for PAIN-MODERATE (5-7), (Reported) Polyethylene Glycol 3350 17 Gm Powd.pack, 17 GM PO DAILY PRN for CONSTIPATION- 2ND LINE, (Reported) Polyvinyl Alcohol/Povidone 15 Ml Drops, 2 DROPS OU Q2H PRN for DRY EYES, (Reported) Prasugrel HCl 10 Mg Tablet, 10 MG PO DAILY, (Reported) Primidone 250 Mg Tablet, 250 MG PO TID, (Reported) Ranitidine HCl 150 Mg Tablet, 150 MG PO DAILY PRN for HEARTBURN, (Reported) Solifenacin Succinate 10 Mg Tablet, 10 MG PO DAILY, (Reported) Triamcinolone Acet 15 Gm Cr, 15 GM TP BID Prescribed by: TIA TELLO on 03/08/19 0931 Venlafaxine HCl 75 Mg Cap.er.24h, 75 MG PO DAILY, (Reported) Warfarin Sodium 4 Mg Tablet, 4 MG PO SuTuThSa@1600, (Reported) Warfarin Sodium 4 Mg Tablet, 2 MG PO MoWeFr@1600, (Reported) Patient Home Medication List Home Medication List Reviewed: Yes Physical Exam-Cardiology Physical Exam Vital Signs/I&O 04/23/19 04/23/19 04/23/19 04/23/19 04:00 04:00 07:00 07:58 Temp 36.7 35.4 Pulse 75 83 79 Resp 15 20 B/P (MAP) 125/79 (94) 143/72 (95) Pulse Ox 95 98 97 O2 Delivery NIV CPAP Room Air 04/23/19 04/23/19 04/23/19 04/23/19 08:00 08:00 09:08 11:10 Pulse 77 72 Pulse Ox 97 O2 Delivery Room Air NIV CPAP 04/23/19 04/23/19 12:00 12:53 Temp 35.6 Pulse 75 Resp 13 B/P (MAP) 144/82 (102) Pulse Ox 98 O2 Delivery NIV CPAP Room Air 04/23/19 00:00 Intake Total 1340 ml Balance 1340 ml Capillary Refill : Less Than 3 Seconds Constitutional: appears stated age, AAO x 3; No apparent distress; well- developed, well-nourished HEENT: PERRL; No discharge; hearing is well preserved, oral hygience is good; No ulceration, No xanthelasmas are seen Neck: No carotid bruit; carotid pulses are 2 + bilaterally Respiratory: chest is bilaterally symmetric, lungs clear to auscultation Cardiovascular: regular rate-rhythm, S1 and S2 Gastrointestinal: soft, audible bowel sounds; No spleenomegaly Rectal: deferred Extremities: normal range of motion, non-tender, normal inspection; No clubbing, No cyanosis; no lower extremity edema bilateral; No significant edema Neurologic/Psychiatric: no motor/sensory deficits, alert, normal mood/affect, oriented x 3, power is 5/5 both on sides Skin: normal color, warm/dry; No rash, No ulcerations Data Review Labs Laboratory Tests 04/22/19 16:44: Glucometer 106 04/23/19 03:10: Prothrombin Time 22.7H, INR Comment 1.9H 04/23/19 11:43: Glucometer 69L ECG Impression ECG Initial ECG Rhythm: Normal Sinus A/P-Cardiology Assessment/Admission Diagnosis Paroxysmal atrial fibrillation, refractory to antiarrhythmic therapy, CAD, Diabetes, Obstructive sleep apnea, Morbid obesity. Plan Paroxysmal atrial fibrillation, refractory to antiarrhythmic therapy with multaq. On Cardizem infusion she converted to sinus rhythm. She was started on sotalol. Currently in sinus rhythm. QTc interval 440 ms this morning. Continue on Coumadin and monitor INR. I discussed at length about atrial fibrillation ablation. Atrial fibrillation ablation will have modest success in her due to morbid obesity as well as severe obstructive sleep apnea. First procedure success rate with no atrial fibrillation or significant reduction in atrial fibrillation and 1 year will be around 50-60 percent. 2-2.5 percent risk of major complication was told to the patient. She will be discharged on sotalol likely tomorrow and then follow-up in the office in 2-3 weeks and we will hopefully schedule atrial fibrillation ablation at that point in time. Palpitation, fatigue and loss of energy secondary to atrial fibrillation. Elevated CHADSVASC score of at least 5, CAD, diabetes, hypertension, age over 65, female gender. Therefore oral anti-coag ablation is superior to aspirin for stroke prevention. CAD, recent drug-eluting stent in the mid LAD in 11/22/2018., Hypertension, Hyperlipidemia, Obstructive sleep apnea on CPAP therapy, Morbid obesity. Thank you for your consultation. Please call me if you have any questions. My Russell MD, FACP, FACC, FSCAI, FHRS, CCDS Interventional Cardiology Cardiac Electrophysiology Vascular Medicine and Endovascular Interventions Clinical Quality Measures DVT/VTE Risk/Contraindication: Risk Factor Score Per Nursin RFS Level Per Nursing on Admit: 4+=Very High Janiya RUSSELL MD Apr 23, 2019 1:04 pm POS
--- NOTE | 2019-04-23 15:13 | NUR ---
Initial visit: The pt shared feelings of regret mixed with reassurance about her life decisions. She became a [employer] while in the and joined a meaningful jennifer community. At the time she believed she was called into [place] work, but health problems convinced her she should not go oversees. 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 She also describes missing her jennifer community, stating that she reads scripture and sings hymns alone in her home, but being in connection with others helped her feel closer to God. She requested prayer for her upcoming procedures, stating she could not find the words to pray for herself.
[2019-04-23 16:39] VITALS: BP 120/58
[2019-04-23] MEDS: SOLIFENACIN 10 MG PO SCH (16:41)
[2019-04-23] MEDS: WARFARIN 4 MG TABLET PO SCH (16:42)
--- NOTE | 2019-04-23 17:02 | Progress Note ---
Subjective Subjective/Events-last exam Patient feels well this AM. Denies any palpitations. She has not been up out of bed much for the last 2 days. Tolerating PO diet. BM yesterday. Review of Systems General: No Chills, No Fatigue; Malaise Pulmonary: No Dyspnea, No Cough Cardiovascular: No: Chest Pain, Palpitations, Edema Gastrointestinal: No: Nausea, Vomiting, Abdominal Pain, Diarrhea, Constipation Genitourinary: No Dysuria, No Frequency, No Incontinence Musculoskeletal: back pain Neurological: No: Weakness, Incoordination, Confusion Objective Exam Last Set of Vital Signs Vital Signs Date Time Temp Pulse Resp B/P (MAP) Pulse Ox O2 Delivery O2 Flow Rate FiO2 04/23/19 16:39 36.3 76 18 120/58 (78) 98 Room Air 04/22/19 03:20 21 Capillary Refill : Less Than 3 Seconds I&O Intake and Output 04/23/19 00:00 Intake Total 1740 ml Balance 1740 ml Intake Oral 1740 ml # Voids 6 General: Alert, Oriented X3, Cooperative, No Acute Distress HEENT: Mucous Memb Moist/[place] Lungs: Clear to Auscultation, Normal Air Movement Heart: Regular Rate (Sinus), No Murmurs Abdomen: Normal Bowel Sounds, Soft, No Tenderness, No Masses Extremities: No Tenderness/Swelling Skin: No Rashes, No Breakdown Neuro: Normal Speech, Strength at 5/5 X4 Ext, Sensation Intact, Cranial Nerves 3-12 NL Psych/Mental Status: Mental Status NL, Mood NL Results/Procedures Lab Laboratory Tests 04/23/19 03:10: Prothrombin Time 22.7H, INR Comment 1.9H 04/23/19 11:43: Glucometer 69L Assessment/Plan Assessment/Plan (1) Atrial fibrillation with rapid ventricular response Status: Acute Assessment & Plan: 04/23: Cardiology Consulted and managing, appreciate recommendations, patient self converted with medications, on coumadin for h/o multiple DVTs (2) CAD (coronary artery disease) Status: Chronic Qualifiers: Qualified Codes: I25.118 - Atherosclerotic heart disease of [place] coronary artery with other forms of angina pectoris (3) JENNA (obstructive sleep apnea) Status: Chronic (4) Presence of stent in coronary artery in patient with coronary artery disease Status: Chronic (5) Chronic anticoagulation Status: Chronic Assessment & Plan: 12/9: Managed with coumadin due to h/o DVTs, Daily INRs (6) Insulin dependent diabetes mellitus with complications Status: Chronic Assessment & Plan: 04/23: Continue home meds (7) Adult BMI 40.0-44.9 kg/sq m Status: Chronic (8) Polypharmacy Status: Chronic (9) DVT prophylaxis Status: Acute Assessment & Plan: - Coumadin Clinical Quality Measures DVT/VTE Risk/Contraindication: Risk Factor Score Per Nursin RFS Level Per Nursing on Admit: 4+=Very High TERRY BENNETT MD Apr 23, 2019 17:02 POS
[2019-04-23] MEDS: NITROFURANTOIN 100 MG PO SCH (18:23)
[2019-04-23] MEDS: FERROUS GLUCONATE 324 MG TABLET PO SCH (18:23)
[2019-04-23 19:45] VITALS: BP 120/58
[2019-04-23] MEDS: inSUlin GLARGINE 1000 UNITS/10 ML (LANTUS) VIAL SQ SCH (21:52)
[2019-04-23 23:52] VITALS: BP 179/92
[2019-04-24 03:22] LABS: BASOPHILS % (AUTO) 0 % (0-10); EOSINOPHILS # (AUTO) 0.4 10^3/uL (0.0-0.3); EOSINOPHILS % (AUTO) 5 % (0-10); HEMATOCRIT 34 % (35-52); LYMPHOCYTES # (AUTO) 2.8 X 10^3 (1.0-4.0); LYMPHOCYTES % (AUTO) 39 % (12-44); MEAN CORPUSCULAR HEMOGLOBIN 28 PG (25-34); MEAN CORPUSCULAR HGB CONC 32 G/DL (32-36); MEAN CORPUSCULAR VOLUME 87 FL (80-99); MEAN PLATELET VOLUME 9.6 FL (7.4-10.4); MONOCYTES # (AUTO) 0.5 X 10^3 (0.0-1.0); MONOCYTES % (AUTO) 8 % (0-12); NEUTROPHILS # (AUTO) 3.3 X 10^3 (1.8-7.8); NEUTROPHILS % (AUTO) 47 % (42-75); PLATELET COUNT 243 10^3/uL (130-400); RED CELL DISTRIBUTION WIDTH 15.7 % (10.0-14.5)
[2019-04-24 03:35] LABS: INR 2.1 (0.8-1.4); PROTHROMBIN TIME PATIENT 24.8 SEC (12.2-14.7)
[2019-04-24 03:47] LABS: BUN/CREATININE RATIO 21; CALCIUM 8.8 MG/DL (8.5-10.1); CARBON DIOXIDE 23 MMOL/L (21-32); CHLORIDE 106 MMOL/L (98-107); CREATININE SERUM 0.62 MG/DL (0.60-1.30); GFR ESTIMATED > 60; GLUCOSE 87 MG/DL (70-105); SODIUM 142 MMOL/L (135-145)
[2019-04-24 04:00] VITALS: BP_SYST 134; BP_SYST 146; BP_DIAS 77; BP_DIAS 78
[2019-04-24] MEDS: NS IV 1000 ML 1,000 ML IV SCH (07:17)
[2019-04-24] MEDS: VENlafaxine XR 75 MG (EFFEXOR XR) CAP PO SCH (07:19)
[2019-04-24] MEDS: OMEGA 3 (FISH OIL) 1000 MG CAP PO SCH ×2 (07:19→09:11)
[2019-04-24] MEDS: CALCIUM CARB + VIT D 600 MG (CALCARB + D) TAB PO SCH (07:21)
[2019-04-24] MEDS: MULTIVIT W/MINERALS TAB (THERAGRAN M) PO SCH (07:21)
--- NOTE | 2019-04-24 07:37 | Cardiology Progress Note ---
Subjective Date Seen by Provider: Apr 24, 2019 Time Seen by Provider: 07:35 Subjective/Events-last exam Patient is sitting in bed, feeling well, tolerating sotalol well. QTC is borderline Review of Systems General: No Chills, No Night Sweats, No Fatigue, No Malaise, No Appetite, No Other HEENT: No Head Aches, No Visual Changes, No Eye Pain, No Ear Pain, No Dysphasi a, No Sinus Congestion, No Post Nasal Drip, No Sore Throat, No Other Pulmonary: No Dyspnea, No Cough, No Pleuritic Chest Pain, No Other Cardiovascular: No: Chest Pain, Palpitations, Orthopnea, Paroxysmal Noc. Dyspnea, Edema, Lt Headedness, Other Objective-Cardiology Exam Last Set of Vital Signs Vital Signs 04/22/19 03:20 FiO2 21 Capillary Refill : Less Than 3 Seconds I&O Intake and Output 04/24/19 00:00 Intake Total 2760 ml Output Total 1600 ml Balance 1160 ml Intake Oral 1760 ml IV Total 1000 ml Output Urine Total 1600 ml # Voids 1 # Bowel Movements 2 General: Alert, Oriented X3, Cooperative, No Acute Distress HEENT: Mucous Memb Moist/[place] Neck: Supple, No JVD, No Thyromegaly Lungs: Clear to Auscultation, Normal Air Movement Heart: Regular Rate (Sinus), Normal S1, Normal S2, No Murmurs Abdomen: Normal Bowel Sounds, Soft, No Tenderness, No Masses Extremities: No Tenderness/Swelling Skin: No Rashes, No Breakdown Neuro: Normal Speech, Strength at 5/5 X4 Ext, Sensation Intact, Cranial Nerves 3-12 NL Psych/Mental Status: Mental Status NL, Mood NL Results Lab Laboratory Tests 04/24/19 03:15 A/P-Cardiology Admission Diagnosis Paroxysmal atrial fibrillation Palpitation Coronary artery disease Hypertension Assessment/Plan Paroxysmal atrial fibrillation, failed Multaq treatment, started on sotalol on April 21, 2019, converted to sinus rhythm, QTC is borderline, may require ablation if she continued to have episodes of atrial fibrillation Palpitation, fatigue and loss of energy secondary to atrial fibrillation, feeling better. Continue to monitor Coronary artery disease, underwent cardiac catheterization November 22, 2018 revealing severe mid LAD stenosis of 80-90 percent, very tortuous LAD with difficult visualization. Underwent stent placement using resolute integrity 2.5 x 26 mm stent. Maintained on Effient and aspirin History of DVT, first episode occurred about 30 years ago, second episode occurred in July 2015, on the left side while receiving physical therapy for back injury. Maintained on Coumadin Hypertension, monitor blood pressure Hyperlipidemia, monitor lipids Mild obstructive sleep apnea, followed and managed by Dr. Colmenares Diabetes mellitus, followed and managed by primary care physician. Back pain and joint pain. History of Charcot joint. BMI is 40, we discussed weight loss and exercise. Next Okay for discharge from cardiology standpoint and follow-up with my office in 2- 4 weeks Clinical Quality Measures DVT/VTE Risk/Contraindication: Risk Factor Score Per Nursin RFS Level Per Nursing on Admit: 4+=Very High CHARLY JOSE MD Apr 24, 2019 07:37 POS
[2019-04-24] MEDS ORDERED: STL80T PO (07:40)
[2019-04-24 08:00] VITALS: BP 147/92
[2019-04-24] MEDS: SOTALOL 80 MG (BETAPACE) TAB PO SCH (09:10)
[2019-04-24] MEDS: DILTIAZEM 240 MG (CARDIZEM CD) CAP PO SCH (09:11)
[2019-04-24] MEDS: MIRABEGRON 50 MG TABLET (MYRBETRIQ) NON-FORMULARY PO SCH (09:11)
[2019-04-24] MEDS: PRIMIDONE 250MG (MYSOLINE) TAB PO SCH (09:12)
[2019-04-24] MEDS: lisINopril 20 MG (PRINIVIL) TABLET PO SCH (09:12)
[2019-04-24] MEDS: [UNRECOGNIZED DRUG - REMARK] PO SCH (09:12)
[2019-04-24] MEDS: PRASUGREL 10 MG (EFFIENT) TABLET PO SCH (09:12)
[2019-04-24] MEDS: ceTIRizine 10 MG (ZyrTEC) TAB NON-FORMULARY PO SCH (09:13)
[2019-04-24] MEDS: ASPIRIN 81 MG CHEW (CHILDREN'S ASA) PO SCH (09:13)
[2019-04-24] MEDS: CYCLOBENZAPRINE 10 MG (FLEXERIL) TAB PO SCH (09:13)
[2019-04-24] MEDS: POLYETHYLENE GLYCOL 17 GM PO PRN (09:14)
[2019-04-24] MEDS: oxyCODONE/APAP 10/325MG (PERCOCET 10) TABLET PO PRN (09:20)
[2019-04-24 10:00] VITALS: BP 140/97
--- NOTE | 2019-04-24 10:26 | Cardiology Progress Note ---
Cardiology SOAP Progress Note Subjective: No cardiac complaints. Objective: I&O/Vital Signs 04/23/19 04/23/19 04/24/19 04/24/19 23:46 23:52 00:30 00:50 Temp 36.4 Pulse 82 82 75 Resp 18 B/P (MAP) 179/92 (121) Pulse Ox 94 O2 Delivery Room Air Room Air 04/24/19 04/24/19 04/24/19 04/24/19 04:00 04:00 07:00 08:00 Temp 36.0 Pulse 74 88 Resp 18 B/P (MAP) 134/78 (96) Pulse Ox 97 97 97 O2 Delivery Room Air NIV CPAP Room Air 04/24/19 04/24/19 04/24/19 04/24/19 08:00 09:00 09:10 10:00 Temp 36.2 Pulse 83 83 90 Resp 18 23 B/P (MAP) 147/92 (110) 140/97 (111) Pulse Ox 96 96 O2 Delivery Room Air Room Air Room Air 04/23/19 23:59 Intake Total 1360 ml Output Total 1000 ml Balance 360 ml Weight (Pounds): 302 Weight (Ounces): 0.0 Weight (Calculated Kilograms): 136.792991 Constitutional: appears stated age, AAO x 3; No apparent distress; well- developed, well-nourished Respiratory: chest is bilaterally symmetric, lungs clear to auscultation Cardiovascular: regular rate-rhythm, S1 and S2 Gastrointestional: soft, audible bowel sounds; No spleenomegaly Extremities: normal range of motion, non-tender, normal inspection; No clubbing, No cyanosis; no lower extremity edema bilateral; No significant edema Neurologic/Psychiatric: no motor/sensory deficits, alert, normal mood/affect, oriented x 3, power is 5/5 both on sides Skin: normal color, warm/dry; No rash, No ulcerations Results/Procedures: Labs Laboratory Tests 04/23/19 11:43: Glucometer 69L 04/23/19 22:09: Glucometer 74 04/24/19 03:15: White Blood Count 7.0, Red Blood Count 3.93L, Hemoglobin 11.0L, Hematocrit 34L, Mean Corpuscular Volume 87, Mean Corpuscular Hemoglobin 28, Mean Corpuscular Hemoglobin Concent 32, Red Cell Distribution Width 15.7H, Platelet Count 243, Mean Platelet Volume 9.6, Neutrophils (%) (Auto) 47, Lymphocytes (%) (Auto) 39, Monocytes (%) (Auto) 8, Eosinophils (%) (Auto) 5, Basophils (%) (Auto) 0, Neutrophils # (Auto) 3.3, Lymphocytes # (Auto) 2.8, Monocytes # (Auto) 0.5, Eosinophils # (Auto) 0.4H, Basophils # (Auto) 0.0, Prothrombin Time 24.8H, INR Comment 2.1H, Sodium Level 142, Potassium Level 4.0, Chloride Level 106, Carbon Dioxide Level 23, Anion Gap 13, Blood Urea Nitrogen 13, Creatinine 0.62, Estimat Glomerular Filtration Rate > 60, BUN/Creatinine Ratio 21, Glucose Level 87, Calcium Level 8.8 A/P: Assessment/Dx: Paroxysmal atrial fibrillation, refractory to antiarrhythmic therapy, CAD, Diabetes, Obstructive sleep apnea, Morbid obesity. Plan: Paroxysmal atrial fibrillation, refractory to antiarrhythmic therapy with multaq. On Cardizem infusion she converted to sinus rhythm. She was started on sotalol. Currently in sinus rhythm. QTc interval 440 ms this morning. Continue on Coumadin and monitor INR. I discussed at length about atrial fibrillation ablation. Atrial fibrillation ablation will have modest success in her due to morbid obesity as well as severe obstructive sleep apnea. First procedure success rate with no atrial fibrillation or significant reduction in atrial fibrillation and 1 year will be around 50-60 percent. 2-2.5 percent risk of major complication was told to the patient. She will be discharged on sotalol likely tomorrow and then follow-up in the office in 2-3 weeks and we will hopefully schedule atrial fibrillation ablation at that point in time. Palpitation, fatigue and loss of energy secondary to atrial fibrillation. Elevated CHADSVASC score of at least 5, CAD, diabetes, hypertension, age over 65, female gender. Therefore oral anti-coag ablation is superior to aspirin for stroke prevention. CAD, recent drug-eluting stent in the mid LAD in 11/22/2018., Hypertension, Hyperlipidemia, Obstructive sleep apnea on CPAP therapy, Morbid obesity. Thank you for your consultation. Please call me if you have any questions. My Russell MD, FACP, FACC, FSCAI, FHRS, CCDS Interventional Cardiology Cardiac Electrophysiology Vascular Medicine and Endovascular Interventions Janiya RUSSELL MD Apr 24, 2019 10:26 POS
--- NOTE | 2019-04-24 10:52 | Discharge Summary ---
Diagnosis/Chief Complaint Date of Admission Apr 21, 2019 at 11:04 Date of Discharge Discharge Diagnosis Problems/Diagnosis: (1) Atrial fibrillation with rapid ventricular response Assessment & Plan: 04/23: Cardiology Consulted and managing, appreciate recommendations, patient self converted with medications, on coumadin for h/o multiple DVTs Status: Acute (2) CAD (coronary artery disease) Qualifiers: Qualified Codes: I25.118 - Atherosclerotic heart disease of [place] coronary artery with other forms of angina pectoris Status: Chronic (3) JENNA (obstructive sleep apnea) Status: Chronic (4) Presence of stent in coronary artery in patient with coronary artery disease Status: Chronic (5) Chronic anticoagulation Assessment & Plan: 04/23: Managed with coumadin due to h/o DVTs, Daily INRs Status: Chronic (6) Insulin dependent diabetes mellitus with complications Assessment & Plan: 04/23: Continue home meds Status: Chronic (7) Adult BMI 40.0-44.9 kg/sq m Status: Chronic (8) Polypharmacy Status: Chronic (9) DVT prophylaxis Assessment & Plan: - Coumadin Status: Acute Discharge Summary-Simple/Stand Consultations Discharge Physical Examination Allergies: Coded Allergies: amylase (Verified Allergy, Unknown, 08/07/15) black cohosh (Verified Allergy, Unknown, 08/07/15) cellulase (Verified Allergy, Unknown, 08/07/15) glyburide (Verified Allergy, Unknown, 08/07/15) isosorbide (Verified Allergy, Unknown, 08/07/15) lipase (Verified Allergy, Unknown, 08/07/15) protease (Verified Allergy, Unknown, 08/07/15) Vitals & I&Os Vital Sign - Last 12Hours Date Time Temp Pulse Resp B/P (MAP) Pulse Ox O2 Delivery O2 Flow Rate FiO2 04/24/19 10:00 90 23 140/97 (111) Room Air 04/24/19 09:00 96 04/24/19 08:00 36.2 04/22/19 03:20 21 Intake and Output 04/24/19 00:00 Intake Total 1360 ml Output Total 1000 ml Balance 360 ml Hospital Course See final discharge diagnosis. Discharge Instructions to patient/family Please see electronic discharge instructions given to patient. Discharge Medications Reviewed and agree with Discharge Medication list on patient's Discharge Instruction sheet Clinical Quality Measures DVT/VTE Risk/Contraindication: Risk Factor Score Per Nursin RFS Level Per Nursing on Admit: 4+=Very High TERRY BENNETT MD Apr 24, 2019 10:52 POS
--- NOTE | 2019-04-24 11:03 | D/C HH Face to Face Order ---
Discharge Summary Reconcile Patient Problems Problems Reviewed?: Yes Instructions for Patient Via LeonelaGalenea, Assessment/Instructions Atrial Fibrillation with RVR: Patient needs help with medication box, Multiple medications have changed and she has some new high risk medications Debility: PT/OT Physician to follow Patient: Rupa Discharge Diet for Home: ADA Diet, Cardiac Diet Hospital Course Date of Admission: Apr 21, 2019 at 11:04 Admission Diagnosis : Family Physician/Provider: Martin Goode MD Date of Discharge: 04/24/19 Labs and Pending Lab Test: Laboratory Tests 04/23/19 11:43: Glucometer 69L 04/23/19 22:09: Glucometer 74 04/24/19 03:15: White Blood Count 7.0, Red Blood Count 3.93L, Hemoglobin 11.0L, Hematocrit 34L, Mean Corpuscular Volume 87, Mean Corpuscular Hemoglobin 28, Mean Corpuscular Hemoglobin Concent 32, Red Cell Distribution Width 15.7H, Platelet Count 243, Mean Platelet Volume 9.6, Neutrophils (%) (Auto) 47, Lymphocytes (%) (Auto) 39, Monocytes (%) (Auto) 8, Eosinophils (%) (Auto) 5, Basophils (%) (Auto) 0, Neutrophils # (Auto) 3.3, Lymphocytes # (Auto) 2.8, Monocytes # (Auto) 0.5, Eosinophils # (Auto) 0.4H, Basophils # (Auto) 0.0, Prothrombin Time 24.8H, INR Comment 2.1H, Sodium Level 142, Potassium Level 4.0, Chloride Level 106, Carbon Dioxide Level 23, Anion Gap 13, Blood Urea Nitrogen 13, Creatinine 0.62, Estimat Glomerular Filtration Rate > 60, BUN/Creatinine Ratio 21, Glucose Level 87, Calcium Level 8.8 Home Meds Active Sotalol (Sotalol HCl) 80 Mg Tablet 80 Mg PO BID Triamcinolone Acetonide 0.1% Cream (Triamcinolone Acet) 15 Gm Cr 15 Gm TP BID Reported Nitrofurantoin (Nitrofurantoin Macrocrystal) 100 Mg Capsule 100 Mg PO DAILY Vesicare (Solifenacin Succinate) 10 Mg Tablet 10 Mg PO DAILY Aspirin 81 Mg Tab.chew 81 Mg PO DAILY Oxycodone-Acetaminophen 10-325 (Oxycodone HCl/Acetaminophen) 1 Each Tablet 1 Each PO Q6H PRN MDD 3 7 Days Myrbetriq (Mirabegron) 50 Mg Tab.er.24h 50 Mg PO DAILY Mysoline (Primidone) 250 Mg Tablet 250 Mg PO TID Warfarin Sodium 4 Mg Tablet 2 Mg PO MOWEFR@1600 Warfarin Sodium 4 Mg Tablet 4 Mg PO SUTUTHSA@1600 Cyclobenzaprine HCl 10 Mg Tablet 10 Mg PO TID Cartia Xt (Diltiazem HCl) 240 Mg Cap.er.24h 240 Mg PO DAILY Restasis (Cyclosporine) 1 Each Droperette 1 Drop OU BID Metformin HCl 1,000 Mg Tablet 1,000 Mg PO BID Atorvastatin Calcium 80 Mg Tablet 80 Mg PO HS Prasugrel HCl 10 Mg Tablet 10 Mg PO DAILY Miralax (Polyethylene Glycol 3350) 17 Gm Powd.pack 17 Gm PO DAILY PRN Ferrous Sulfate 325 Mg Tablet 325 Mg PO 1800 LAST FILLED 11-24-2018 #100 Zyrtec (Cetirizine HCl) 10 Mg Tablet 10 Mg PO DAILY Venlafaxine HCl ER (Venlafaxine HCl) 75 Mg Cap.er.24h 75 Mg PO DAILY Fish Oil 1,000 mg Capsule ([place] 3 Polyunsat Fatty Acids) 1,000 Mg Cap 1,000 Mg PO TID LAST FILLED 11-26-2018 #300 Gabapentin 800 Mg Tablet 800 Mg PO QID Breo Ellipta 200-25 Mcg INH (Fluticasone/Vilanterol) 1 Each Blst.w.dev 1 Puff INH DAILY Lisinopril 20 Mg Tablet 20 Mg PO DAILY Imipramine HCl 50 Mg Tablet 50 Mg PO HS Vitamin D3 (Cholecalciferol (Vitamin D3)) 1,000 Unit Capsule 2,000 Unit PO 1200 Osteo Bi-Flex Caplet (Glucosamine/D3/Boswellia Nellie) 1 Each Tablet 1 Tab PO BID Multivitamins with Minerals (Multivitamin with Minerals) 1 Each Tablet 1 Tab PO DAILY Lantus (Insulin Glargine,Hum.rec.anlog) 100 Unit/1 Ml Vial 20 Unit SQ HS Calcium 500 + Vit D Caplet (Calcium Carbonate/Vitamin D3) 1 Each Tablet 1 Tab PO BID Novolog Flexpen (Insulin Aspart) 300 Units/3 Ml Solution 6 Units SQ TIDAC Ranitidine HCl 150 Mg Tablet 150 Mg PO DAILY PRN Refresh Lacri-Lube Ointment (Mineral Oil/Petrolatum,White) 3.5 Gm Oint...g. OU HS Artificial Tears Drops (Polyvinyl Alcohol/Povidone) 15 Ml Drops 2 Drops OU Q2H PRN Patient Allergies: Coded Allergies: amylase (Verified Allergy, Unknown, 08/07/15) black cohosh (Verified Allergy, Unknown, 08/07/15) cellulase (Verified Allergy, Unknown, 08/07/15) glyburide (Verified Allergy, Unknown, 08/07/15) isosorbide (Verified Allergy, Unknown, 08/07/15) lipase (Verified Allergy, Unknown, 08/07/15) protease (Verified Allergy, Unknown, 08/07/15) Height (Feet): 5 Height (Inches): 10.50 Weight (Pounds): 302 Weight (Ounces): 0.0 New Medications: Sotalol HCl (Sotalol) 80 Mg Tablet 80 MG PO BID, #60 TAB 2 Refills Continued Medications: Aspirin (Aspirin) 81 Mg Tab.chew 81 MG PO DAILY, TAB Atorvastatin Calcium (Atorvastatin Calcium) 80 Mg Tablet 80 MG PO HS, TAB Calcium Carbonate/Vitamin D3 (Calcium 500 + Vit D Caplet) 1 Each Tablet 1 TAB PO BID, TAB Cetirizine HCl (Zyrtec) 10 Mg Tablet 10 MG PO DAILY, TAB Cholecalciferol (Vitamin D3) (Vitamin D3) 1,000 Unit Capsule 2000 UNIT PO 1200, CAP Cyclobenzaprine HCl (Cyclobenzaprine HCl) 10 Mg Tablet 10 MG PO TID, TAB Cyclosporine (Restasis) 1 Each Droperette 1 DROP OU BID, DROP Diltiazem HCl (Cartia Xt) 240 Mg Cap.er.24h 240 MG PO DAILY, CAP Ferrous Sulfate (Ferrous Sulfate) 325 Mg Tablet 325 MG PO 1800, TAB LAST FILLED 11-24-2018 #100 Fluticasone/Vilanterol (Breo Ellipta 200-25 Mcg INH) 1 Each Blst.w.dev 1 PUFF INH DAILY, INHALER Gabapentin (Gabapentin) 800 Mg Tablet 800 MG PO QID, TAB Glucosamine/D3/Boswellia Nellie (Osteo Bi-Flex Caplet) 1 Each Tablet 1 TAB PO BID, TAB Imipramine HCl (Imipramine HCl) 50 Mg Tablet 50 MG PO HS, TAB Insulin Aspart (Novolog Flexpen) 300 Units/3 Ml Solution 6 UNITS SQ TIDAC, EA Insulin Glargine,Hum.rec.anlog (Lantus) 100 Unit/1 Ml Vial 20 UNIT SQ HS, EA Lisinopril (Lisinopril) 20 Mg Tablet 20 MG PO DAILY, TAB Metformin HCl (Metformin HCl) 1,000 Mg Tablet 1000 MG PO BID, TAB Mineral Oil/Petrolatum,White (Refresh Lacri-Lube Ointment) 3.5 Gm Oint...g. OU HS, EA Mirabegron (Myrbetriq) 50 Mg Tab.er.24h 50 MG PO DAILY, TAB Multivitamin with Minerals (Multivitamins with Minerals) 1 Each Tablet 1 TAB PO DAILY, TAB Nitrofurantoin Macrocrystal (Nitrofurantoin) 100 Mg Capsule 100 MG PO DAILY, CAP [place] 3 Polyunsat Fatty Acids (Fish Oil 1,000 mg Capsule) 1,000 Mg Cap 1000 MG PO TID, CAP LAST FILLED 11-26-2018 #300 Oxycodone HCl/Acetaminophen (Oxycodone-Acetaminophen 10-325) 1 Each Tablet 1 EACH PO Q6H PRN for PAIN-MODERATE (5-7) MDD 3 for 7 Days, TAB Polyethylene Glycol 3350 (Miralax) 17 Gm Powd.pack 17 GM PO DAILY PRN for CONSTIPATION-2ND LINE, EACH Polyvinyl Alcohol/Povidone (Artificial Tears Drops) 15 Ml Drops 2 DROPS OU Q2H PRN for DRY EYES, EA Prasugrel HCl (Prasugrel HCl) 10 Mg Tablet 10 MG PO DAILY, TAB Primidone (Mysoline) 250 Mg Tablet 250 MG PO TID Ranitidine HCl (Ranitidine HCl) 150 Mg Tablet 150 MG PO DAILY PRN for HEARTBURN, TAB Solifenacin Succinate (Vesicare) 10 Mg Tablet 10 MG PO DAILY, TAB Triamcinolone Acet (Triamcinolone Acetonide 0.1% Cream) 15 Gm Cr 15 GM TP BID, #1 TUBE Venlafaxine HCl (Venlafaxine HCl ER) 75 Mg Cap.er.24h 75 MG PO DAILY, CAP Warfarin Sodium (Warfarin Sodium) 4 Mg Tablet 4 MG PO SuTuThSa@1600, TAB Warfarin Sodium (Warfarin Sodium) 4 Mg Tablet 2 MG PO MoWeFr@1600, TAB Home Health Need/Face to Face Date of Face to Face: Apr 24, 2019 Clinical Findings: Generalized weakness and fatigue, Instability, Muscle weakness, Shortness of breath, Unsteady gait I have seen Pt [id number]: Yes Discharged To: Home Diagnosis/Conditions: Atrial Fibrillation with RVR CAD Chronic anticoagulation HTN HLD JENNA IDDM BMI 40 Patient is Homebound due to: Joe fall risk due to instabilty, Shortness of breath/distress Homebound Status Due to the above stated illness, injury or surgical procedure (medical condition or diagnosis) and associated clinical findings, the patient is homebo und because of his/her inability to leave home except with aid of a supportive device and/or person AND leaving the home requires a considerable and taxing effort or is medically contraindicated. Pt req the following assistanc: Aid of another person, Walker Home Health Nursing Orders Home Health Services Order: Nursing Services, Painting Supervisor-Evaluate & Treat, Physical Therapy-Evaluate & Treat Home Health Infusion Therapy Line Start Date: Apr 20, 2019 Therapy Orders Therapy Orders: OT (must have SN or PT order), PT to assess for OT Therapy Specific Orders: Teach enviro modifications/safety, Increase strength/endurance Certify Stmt I certify that this patient is under my care and that I, a nurse practitioner or a physician; a clinic assistant working with me, had a face to face encounter that - meets the physician face to face encounter requirements with this patient as dated. Discharge Physical Exam General: Alert, Oriented X3, Cooperative, No Acute Distress Lungs: Clear to Auscultation, Normal Air Movement Heart: Regular Rate, No Murmurs Abdomen: Normal Bowel Sounds, Soft, No Tenderness, No Masses Extremities: Other (2+ pitting edema bilaterally) Skin: Other (Hemociderin deposition on LLE) Neuro: Other (LE strength 4/5 bilaterally, gait with walker) TERRY BENNETT MD Apr 24, 2019 11:00 POS
--- NOTE | 2019-04-24 11:11 | NUR ---
CM FINALIZED DISCHARGE PLAN: Patient is dismissing to home today with C. She has recently used [facility]. Contacted them et they will be able to see her again. Choice form presented to patient et she elected [facility]. Choice form signed et placed on chart. She denies any further needs.
== END 2019-04-24 13:30 | disposition home health service (06) | DRG 309 ==
LOC: ER 15:22 → EDUNIT# 15:22 → ICU 18:00 → OBSVTOIN 04-21 11:04
PROVIDERS: ADMIT Internal Medicine; ATTEND Internal Medicine
DX: I48.0 Paroxysmal atrial fibrillation (principal); I25.119 Atherosclerotic heart disease of native coronary artery with unspecified angina pectoris; Z68.41 Body mass index [BMI] 40.0-44.9, adult; E66.01 Morbid (severe) obesity due to excess calories; E11.40 Type 2 diabetes mellitus with diabetic neuropathy, unspecified; E11.610 Type 2 diabetes mellitus with diabetic neuropathic arthropathy; I25.2 Old myocardial infarction; I10 Essential (primary) hypertension; J45.909 Unspecified asthma, uncomplicated; E78.5 Hyperlipidemia, unspecified; G47.33 Obstructive sleep apnea (adult) (pediatric); R60.9 Edema, unspecified; K21.9 Gastro-esophageal reflux disease without esophagitis; K59.09 Other constipation; M19.91 Primary osteoarthritis, unspecified site; M54.9 Dorsalgia, unspecified; R53.81 Other malaise; F41.9 Anxiety disorder, unspecified; F32.9 Major depressive disorder, single episode, unspecified; Z95.5 Presence of coronary angioplasty implant and graft; Z87.891 Personal history of nicotine dependence; Z79.4 Long term (current) use of insulin; Z86.718 Personal history of other venous thrombosis and embolism; Z85.42 Personal history of malignant neoplasm of other parts of uterus; Z79.01 Long term (current) use of anticoagulants
CPT/HCPCS: 36415; 71045; 80048; 80053; 80061; 82962; 83735; 83874; 84100; 84484; 85025; 85610; 85730; 93005; 93041; 94760; 96365; 96366

== ENCOUNTER 2019-05-16 19:49 | Emergency (ER) | payer MEDICARE, MEDICAID ==
[~2019-05-16] VITALS: Ht 180.3 cm; Wt 128.9 kg
[~2019-05-16 19:49] MED LIST changes: +STL80T PO
[2019-05-16] MEDS ORDERED: DILTIAZEM 25 MG/5 ML INJ (CARDIZEM) VIAL ONE (19:59)
[2019-05-16 20:11] LABS: BASOPHILS % (AUTO) 0 % (0-10); EOSINOPHILS # (AUTO) 0.3 10^3/uL (0.0-0.3); EOSINOPHILS % (AUTO) 4 % (0-10); HEMATOCRIT 41 % (35-52); HEMOGLOBIN 13.7 G/DL (11.5-16.0); LYMPHOCYTES % (AUTO) 41 % (12-44); MEAN CORPUSCULAR HEMOGLOBIN 28 PG (25-34); MEAN CORPUSCULAR HGB CONC 33 G/DL (32-36); MEAN CORPUSCULAR VOLUME 85 FL (80-99); MEAN PLATELET VOLUME 10.3 FL (7.4-10.4); MONOCYTES # (AUTO) 0.7 X 10^3 (0.0-1.0); MONOCYTES % (AUTO) 10 % (0-12); NEUTROPHILS # (AUTO) 3.3 X 10^3 (1.8-7.8); NEUTROPHILS % (AUTO) 45 % (42-75); PLATELET COUNT 324 10^3/uL (130-400); RED CELL DISTRIBUTION WIDTH 16.6 % (10.0-14.5); WHITE BLOOD COUNT 7.3 10^3/uL (4.3-11.0)
--- NOTE | 2019-05-16 20:12 | ED Cardiac General ---
History of Present Illness General Chief Complaint: Cardiac/General Problems Stated Complaint: AFIB Source: patient, EMS Exam Limitations: no limitations History of Present Illness Date Seen by Provider: May 16, 2019 Time Seen by Provider: 19:48 Initial Comments Patient presents to ER by EMS from home with chief complaint of palpitations, flutters, rapid heart rate suspect she is in atrial fibrillation with rapid ventricular response since she woke up around 11:00 this morning. She says she recently got off the sotalol in the last month because she thought she was having some side effects to it including confusion, blurry vision and difficulty focusing and concentrating as well as lightheadedness and poor short-term memory. She is followed by Dr. Calvert but is being evaluated by Dr. Russell for her atrial fibrillation to have a potential ablation done. She's had one stent placed by Dr. Calvert. She's not having any chest pain but she has had some shortness of breath. She is on Effient and Coumadin. She is diabetic. She has a history of asthma on Breo. She typically takes Cartia 240 mg extended release. She's been told that her blood pressure is above 120 systolic and her heart rate is rapid she can take an extra tablet. She says she had a wrist blood pressure cuff at home and she took it and her blood pressure was 70/40. This evening she decided she had enough and she called an ambulance to come to the ER. Allergies and Home Medications Allergies Coded Allergies: amylase (Verified Allergy, Unknown, 08/07/15) black cohosh (Verified Allergy, Unknown, 08/07/15) cellulase (Verified Allergy, Unknown, 08/07/15) glyburide (Verified Allergy, Unknown, 08/07/15) isosorbide (Verified Allergy, Unknown, 08/07/15) lipase (Verified Allergy, Unknown, 08/07/15) protease (Verified Allergy, Unknown, 08/07/15) Home Medications Aspirin 81 Mg Tab.chew, 81 MG PO DAILY, (Reported) Atorvastatin Calcium 80 Mg Tablet, 80 MG PO HS, (Reported) Calcium Carbonate/Vitamin D3 1 Each Tablet, 1 TAB PO BID, (Reported) Cephalexin 500 Mg Capsule, 500 MG PO BID Prescribed by: SIVAKUMAR CONTRERAS on 05/17/19 0028 Cetirizine HCl 10 Mg Tablet, 10 MG PO DAILY, (Reported) Cholecalciferol (Vitamin D3) 1,000 Unit Capsule, 2,000 UNIT PO 1200, (Reported) Cyclobenzaprine HCl 10 Mg Tablet, 10 MG PO TID, (Reported) Cyclosporine 1 Each Droperette, 1 DROP OU BID, (Reported) Diltiazem HCl 240 Mg Cap.er.24h, 240 MG PO DAILY, (Reported) Diltiazem HCl 360 Mg Cap.er.24h, 360 MG PO DAILY Prescribed by: SIVAKUMAR CONTRERAS on 05/17/19 0028 Ferrous Sulfate 325 Mg Tablet, 325 MG PO 1800, (Reported) LAST FILLED 11-24-2018 #100 Fluticasone/Vilanterol 1 Each Blst.w.dev, 1 PUFF INH DAILY, (Reported) Gabapentin 800 Mg Tablet, 800 MG PO QID, (Reported) Glucosamine/D3/Boswellia Nellie 1 Each Tablet, 1 TAB PO BID, (Reported) Imipramine HCl 50 Mg Tablet, 50 MG PO HS, (Reported) Insulin Aspart 300 Units/3 Ml Solution, 6 UNITS SQ TIDAC, (Reported) Insulin Glargine,Hum.rec.anlog 100 Unit/1 Ml Vial, 20 UNIT SQ HS, (Reported) Lisinopril 20 Mg Tablet, 20 MG PO DAILY, (Reported) Metformin HCl 1,000 Mg Tablet, 1,000 MG PO BID, (Reported) Mineral Oil/Petrolatum,White 3.5 Gm Oint...g., OU HS, (Reported) Mirabegron 50 Mg Tab.er.24h, 50 MG PO DAILY, (Reported) Multivitamin with Minerals 1 Each Tablet, 1 TAB PO DAILY, (Reported) Nitrofurantoin Macrocrystal 100 Mg Capsule, 100 MG PO DAILY, (Reported) Hensel 3 Polyunsat Fatty Acids 1,000 Mg Cap, 1,000 MG PO TID, (Reported) LAST FILLED 11-26-2018 #300 Oxycodone HCl/Acetaminophen 1 Each Tablet, 1 EACH PO Q6H PRN for PAIN-MODERATE (5-7), (Reported) Polyethylene Glycol 3350 17 Gm Powd.pack, 17 GM PO DAILY PRN for CONSTIPATION- 2ND LINE, (Reported) Polyvinyl Alcohol/Povidone 15 Ml Drops, 2 DROPS OU Q2H PRN for DRY EYES, (Reported) Prasugrel HCl 10 Mg Tablet, 10 MG PO DAILY, (Reported) Primidone 250 Mg Tablet, 250 MG PO TID, (Reported) Ranitidine HCl 150 Mg Tablet, 150 MG PO DAILY PRN for HEARTBURN, (Reported) Solifenacin Succinate 10 Mg Tablet, 10 MG PO DAILY, (Reported) Sotalol HCl 80 Mg Tablet, 80 MG PO BID Prescribed by: CHARLY CALVERT on 04/24/19 0740 Triamcinolone Acet 15 Gm Cr, 15 GM TP BID Prescribed by: SAWYER TELLO on 03/08/19 0931 Venlafaxine HCl 75 Mg Cap.er.24h, 75 MG PO DAILY, (Reported) Warfarin Sodium 4 Mg Tablet, 4 MG PO SuTuThSa@1600, (Reported) Warfarin Sodium 4 Mg Tablet, 2 MG PO MoWeFr@1600, (Reported) Patient Home Medication List Home Medication List Reviewed: Yes Review of Systems Review of Systems Constitutional: No chills, No diaphoresis EENTM: No Blurred Vision, No Double Vision Respiratory: Denies Cough; Shortness of Air Cardiovascular: Denies Chest Pain, Denies Edema; Irregular Heart Rate, Lightheadedness, Palpitations; Denies Syncope Gastrointestinal: Denies Abdominal Pain, Denies Constipated, Denies Diarrhea, Denies Nausea Genitourinary: Denies Burning, Denies Discharge Musculoskeletal: No back pain, No joint pain Hematologic/Lymphatic: Easy Bleeding, Easy Bruising All Other Systems Reviewed Negative Unless Noted: Yes Past [id number] Hx Patient Social History Alcohol Use: Denies Use Recreational Drug Use: No Smoking Status: Former Smoker Type Used: Cigarettes Former Smoker, Quit: May 18, 1980 2nd Hand Smoke Exposure: No Recent Hopitalizations: No Immunizations Up To Date Tetanus Booster (TDap): Unknown PED Vaccines UTD: Yes Date of Pneumonia Vaccine: Feb 13, 2019 Date of Influenza Vaccine: Feb 13, 2019 Seasonal Allergies Seasonal Allergies: No Past Medical History Surgeries: Yes (STENTS PLACED NOVEMBER 2018) Cardiac, Coronary Stent, Eye Surgery, Orthopedic Respiratory: Yes Asthma, Sleep Apnea Currently Using CPAP: Yes Currently Using BIPAP: No Cardiac: Yes Atrial Fibrillation, Chronic Edema/Swelling, Coronary Artery Disease, Deep Vein Thrombosis, Heart Attack, High Cholesterol, Hypertension Neurological: Yes Neuropathy 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 Disorders: Yes Female 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 Sexually Transmitted Disease: No HIV/AIDS: No Genitourinary: Yes UTI-Chronic Gastrointestinal: Yes Gastroesophageal Reflux, Chronic Constipation Musculoskeletal: Yes Degenerate Disk Disease, Arthritis, Chronic Back Pain Endocrine: Yes (MORBID OBESITY) Diabetes, Insulin dep HEENT: Yes Cataract Loss of Vision: Bilateral Hearing Impairment: Denies Cancer: No Uterine Psychosocial: Yes Anxiety, Depression Integumentary: No Blood Disorders: No Adverse Reaction/Blood Tranf: No Family Medical History Cardiovascular disease 19 FATHER 19 MOTHER Colon cancer 19 FATHER 19 MOTHER Diabetes mellitus 19 MOTHER G8 BROTHER G8 SISTER Myocardial infarction 19 FATHER No Pertinent Family Hx Physical Exam Vital Signs Vital Signs - First Documented 05/16/19 19:51 Temp 36.6 Pulse 111 Resp 20 B/P (MAP) 140/87 (104) Pulse Ox 97 O2 Delivery Room Air Capillary Refill : Height, Weight, BMI Height: 5'10.50" Weight: 302lbs. 0.0oz. 136.467586av; 40.00 BMI Method:Stated General Appearance: Mild Distress, Obese HEENT: PERRL/EOMI, TMs Normal, Normal ENT Inspection, Pharynx Normal; No Moist Mucous Membranes Neck: Full Range of Motion, Normal Inspection, Non Tender, Supple Respiratory: Lungs Clear, Normal Breath Sounds, No Accessory Muscle Use, No Respiratory Distress Cardiovascular: No Edema, Normal Peripheral Pulses, Irregularly Irregular (100- 120) Gastrointestinal: Normal Bowel Sounds, Non Tender, Soft Neurologic/Psychiatric: Alert, Oriented x3, No Motor/Sensory Deficits, Normal Mood/Affect Skin: Normal Color, Warm/Dry Progress/Results/Core Measures Results/Orders Lab Results Laboratory Tests Test 05/16/19 17:53 05/16/19 20:23 Range/Units White Blood Count 7.3 4.3-11.0 10^3/uL Red Blood Count 4.90 4.35-5.85 10^6/uL Hemoglobin 13.7 11.5-16.0 G/DL Hematocrit 41 35-52 % Mean Corpuscular Volume 85 80-99 FL Mean Corpuscular Hemoglobin 28 25-34 PG Mean Corpuscular Hemoglobin Concent 33 32-36 G/DL Red Cell Distribution Width 16.6 H 10.0-14.5 % Platelet Count 324 130-400 10^3/uL Mean Platelet Volume 10.3 7.4-10.4 FL Neutrophils (%) (Auto) 45 42-75 % Lymphocytes (%) (Auto) 41 12-44 % Monocytes (%) (Auto) 10 0-12 % Eosinophils (%) (Auto) 4 0-10 % Basophils (%) (Auto) 0 0-10 % Neutrophils # (Auto) 3.3 1.8-7.8 X 10^3 Lymphocytes # (Auto) 3.0 1.0-4.0 X 10^3 Monocytes # (Auto) 0.7 0.0-1.0 X 10^3 Eosinophils # (Auto) 0.3 0.0-0.3 10^3/uL Basophils # (Auto) 0.0 0.0-0.1 10^3/uL Sodium Level 140 135-145 MMOL/L Potassium Level 4.3 3.6-5.0 MMOL/L Chloride Level 102 98-107 MMOL/L Carbon Dioxide Level 23 21-32 MMOL/L Anion Gap 15 H 5-14 MMOL/L Blood Urea Nitrogen 14 7-18 MG/DL Creatinine 0.73 0.60-1.30 MG/DL Estimat Glomerular Filtration Rate > 60 BUN/Creatinine Ratio 19 Glucose Level 122 H 70-105 MG/DL Calcium Level 9.4 8.5-10.1 MG/DL Corrected Calcium 9.3 8.5-10.1 MG/DL Total Bilirubin 0.1 0.1-1.0 MG/DL Aspartate Amino Transf (AST/SGOT) 28 5-34 U/L Alanine Aminotransferase (ALT/SGPT) 39 0-55 U/L Alkaline Phosphatase 179 H 40-136 U/L Troponin I < 0.028 <0.028 NG/ML Total Protein 7.7 6.4-8.2 GM/DL Albumin 4.1 3.2-4.5 GM/DL Urine Color YELLOW Urine Clarity CLEAR Urine pH 7.5 5-9 Urine Specific [place] 1.010 L 1.016-1.022 Urine Protein NEGATIVE NEGATIVE Urine Glucose (UA) NEGATIVE NEGATIVE Urine Ketones NEGATIVE NEGATIVE Urine Nitrite NEGATIVE NEGATIVE Urine Bilirubin NEGATIVE NEGATIVE Urine Urobilinogen 0.2 < = 1.0 MG/DL Urine Leukocyte Esterase 3+ H NEGATIVE Urine RBC (Auto) TRACE-L NEGATIVE Urine RBC 0-2 /HPF Urine WBC 25-50 H /HPF Urine Crystals NONE /LPF Urine Bacteria FEW H /HPF Urine Casts NONE /LPF Urine Mucus NEGATIVE /LPF Urine Culture Indicated YES My Orders Orders - DIANE,SIVAKUMAR J Diltiazem Injection (Cardizem Injection) (05/16/19 19:59) Ed Iv/Invasive Line Start (05/16/19 20:02) Ns Iv 1000 Ml (Sodium Chloride 0.9%) (05/16/19 20:02) Ns (Ivpb) (Sodium C... W/Diltiazem Iv Fo (05/16/19 20:15) Diltiazem Injection (Cardizem Injection) (05/16/19 20:15) Cbc With Automated Diff (05/16/19 20:02) Comprehensive Metabolic Panel (05/16/19 20:02) Ua Culture If Indicated (05/16/19 20:02) Troponin I (05/16/19 20:02) Continuous Ekg Monitoring (05/16/19 20:02) Ekg Tracing (05/16/19 20:02) Chest 1 View, Ap/Pa Only (05/16/19 20:02) Ct Head Wo (05/16/19 20:06) Urine Culture (05/16/19 20:23) Ceftriaxone For Iv Use (Rocephin For I (05/16/19 21:00) Continuous Ekg Monitoring (05/16/19 23:06) Ekg Tracing (05/16/19 23:06) Medications Given in ED Current Medications Medications Dose Ordered Sig/Ashley Route Start Time Stop Time Status Last Admin Dose Admin Ceftriaxone Sodium 1000 mg/ Sterile Water 10 ml @ 200 mls/hr ONCE ONCE IV 05/16/19 21:00 05/16/19 21:02 DC 05/16/19 21:36 200 MLS/HR Diltiazem HCl 20 mg ONCE ONCE IVP 05/16/19 20:15 05/16/19 20:16 DC 05/16/19 20:12 20 MG Vital Signs/I&O 05/16/19 05/16/19 19:51 20:19 Temp 36.6 Pulse 111 120 Resp 20 B/P (MAP) 140/87 (104) Pulse Ox 97 O2 Delivery Room Air 05/17/19 00:00 Intake Total 1000 ml Balance 1000 ml Progress Progress Note : Time: 20:11 Progress Note Her initial blood pressure is 140/87 and after 5 mg of Cardizem her blood pressure came down to 108/70 so we'll start her on a drip at 5 mg per hour. Heart rate still around 100 -120. Initial ECG Impression Date: May 16, 2019 Initial ECG Impression Time: 19:53 Initial ECG Rate: 126 Initial ECG Rhythm: A Fib/Flutter Initial ECG Intervals: QT (475) Initial ECG Impression: Atrial Fibrillation w/RVR Initial ECG Comparisson: Changed Comment Atrial fibrillation with rapid ventricular response. No clinically relevant ST elevation or depression. Diagnostic Imaging Diagonstic Imaging: Xray Plain Films/CT/US/NM/MRI: chest (1v) Comments [facility] [place] [place] NAME: ALFREDO KAUFMAN [facility] REC#: [id number] PT STATUS: REG ER : 1950 PHYSICIAN: SIVAKUMAR CONTRERAS MD ADMIT DATE: 05/16/19/ER Draft Date of Exam:05/16/19 CHEST 1 VIEW, AP/PA ONLY INDICATION: Atrial fib, weakness. COMPARISON: 03/10/2019. EXAMINATION: Single view of the chest was obtained. FINDINGS: Clear lungs, bilaterally. The heart is normal. There is no pneumothorax but osseous structures are normal. IMPRESSION: Negative chest. Dictated on workstation # [id number] Dict: 05/16/192200 Trans: 05/16/192204 [facility] [id number] Interpreted by: RAJENDRA JAMES Electronically signed by: Reviewed: Reviewed by Me Diagonstic Imaging: CT (without IV contrast) Plain Films/CT/US/NM/MRI: head Comments [facility] [place] NAME: ALFREDO KAUFMAN [facility] REC#: [id number] PT STATUS: REG ER : 1950 PHYSICIAN: SIVAKUMAR CONTRERAS MD ADMIT DATE: 05/16/19/ER Signed Date of Exam:05/16/19 CT HEAD WO PROCEDURE: CT head without contrast. TECHNIQUE: Multiple contiguous axial images were obtained through the brain without the use of intravenous contrast. Auto Exposure Controls were utilized during the CT exam to meet ALARA standards for radiation dose reduction. INDICATION: Blurred vision, forgetfulness, confusion COMPARISON: None FINDINGS: Ventricles are normal in size, shape, and position. There is no midline shift or mass effect. There is no hemorrhage or evidence of acute ischemia. No cerebral edema seen. No extra-axial fluid collection. Bony calvarium and paranasal sinuses and mastoids are normal. IMPRESSION: Negative CT head. Dictated by: Dictated on workstation # [id number] Dict: 05/16/192129 Trans: 05/16/192141 [facility] [id number] Interpreted by: RAJENDRA JAMES Electronically signed by: RAJENDRA JAMES 05/16/192141 Reviewed: Reviewed by Me Consults : Consulting Physician: Janiya RUSSELL MD Consults Notes Discussed the case at [address] Russell and he agrees with plan to go home since for the past hour and a half she has been in sinus rhythm. We will increase her to 360 mg of Cardizem. Follow-up in one to 2 weeks in the clinic. Departure Impression Primary Impression: Atrial fibrillation with rapid ventricular response Additional Impression: UTI (urinary tract infection) Qualified Codes: N30.00 - Acute cystitis without hematuria Disposition: HOME, SELF-CARE Condition: Improved Departure-Patient Inst. Decision time for Depature: 00:15 Referrals: DELIA TRIANA MD (PCP/Family) Primary Care Physician Patient Instructions: Atrial Fibrillation, Urinary Tract Infection, Adult (DC) Add. Discharge Instructions: Please make a follow-up appointment with Dr. Russell, cardiology in one to 2 weeks. 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 Return to the ER if you have rapid heart rate, palpitations or chest pain. Start taking Keflex one capsule twice daily for the next 7 days for bladder infection. Drink any of fluids. All discharge instructions reviewed with patient and/or family. Voiced understanding. Scripts Cephalexin (Keflex) 500 Mg Capsule 500 MG PO BID for 7 Days, #14 CAP 0 Refills Prov: SIVAKUMAR CONTRERAS 05/17/19 Diltiazem HCl (Cardizem Cd) 360 Mg Cap.er.24h 360 MG PO DAILY for 30 Days, #30 CAP 0 Refills Prov: SIVAKUMAR CONTRERAS 05/17/19 SIVAKUMAR CONTRERAS May 16, 2019 20:12
[2019-05-16] MEDS: NS IV 1000 ML 1,000 ML IV SCH ×2 (20:13→20:19)
[2019-05-16] MEDS ORDERED: DILTIAZEM 25 MG/5 ML INJ (CARDIZEM) VIAL IVP ONE (20:15)
[2019-05-16] MEDS ORDERED: DILTIAZEM IV FOR DRIP 125 MG in NS (IVPB) 100 ML IV SCH (20:15)
[2019-05-16 20:22] LABS: ALANINE AMINOTRANSFERASE 39 U/L (0-55); ALBUMIN 4.1 GM/DL (3.2-4.5); ALKALINE PHOSPHATASE 179 U/L (40-136); BILIRUBIN,TOTAL 0.1 MG/DL (0.1-1.0); BUN/CREATININE RATIO 19; CALCIUM 9.4 MG/DL (8.5-10.1); CARBON DIOXIDE 23 MMOL/L (21-32); CHLORIDE 102 MMOL/L (98-107); CREATININE SERUM 0.73 MG/DL (0.60-1.30); GFR ESTIMATED > 60; GLUCOSE 122 MG/DL (70-105); POTASSIUM 4.3 MMOL/L (3.6-5.0); SODIUM 140 MMOL/L (135-145); TOTAL PROTEIN 7.7 GM/DL (6.4-8.2)
[2019-05-16 20:30] LABS: BILIRUBIN,URINE NEGATIVE (NEGATIVE); CLARITY,URINE CLEAR; COLOR,URINE YELLOW; GLUCOSE, URINE (UA) NEGATIVE (NEGATIVE); KETONES,URINE NEGATIVE (NEGATIVE); LEUKOCYTE ESTERASE ,URINE 3+ (NEGATIVE); NITRITE,URINE NEGATIVE (NEGATIVE); PH,URINE 7.5 (5-9); PROTEIN,URINE NEGATIVE (NEGATIVE)
[2019-05-16 20:40] LABS: BACTERIA,URINE FEW /HPF; RBC,URINE 0-2 /HPF; WBC,URINE 25-50 /HPF
[2019-05-16] MEDS ORDERED: cefTRIAXone FOR IV USE 1,000 MG in WATER (STERILE) FOR INJECTION 10 ML IV ONE (21:00)
--- NOTE | 2019-05-16 21:35 | Diagnostic Imaging Report ---
PROCEDURE: CT head without contrast. TECHNIQUE: Multiple contiguous axial images were obtained through the brain without the use of intravenous contrast. Auto Exposure Controls were utilized during the CT exam to meet ALARA standards for radiation dose reduction. INDICATION: Blurred vision, forgetfulness, confusion COMPARISON: None FINDINGS: Ventricles are normal in size, shape, and position. There is no midline shift or mass effect. There is no hemorrhage or evidence of acute ischemia. No cerebral edema seen. No extra-axial fluid collection. Bony calvarium and paranasal sinuses and mastoids are normal. IMPRESSION: Negative CT head. Dictated by: Dictated on workstation # [id number]
--- NOTE | 2019-05-16 22:06 | Diagnostic Imaging Report ---
INDICATION: Atrial fib, weakness. COMPARISON: 03/10/2019. EXAMINATION: Single view of the chest was obtained. FINDINGS: Clear lungs, bilaterally. The heart is normal. There is no pneumothorax but osseous structures are normal. IMPRESSION: Negative chest. Dictated by: Dictated on workstation # [id number]
[2019-05-17] MEDS ORDERED: CEPH-507 PO (00:28)
[2019-05-17] MEDS ORDERED: DILT360C26 PO (00:28)
[2019-05-17] MEDS ORDERED: DILTIAZEM 180 MG (CARDIZEM CD) CAP PO ONE (00:45)
[2019-05-17 01:03] VITALS: BP 101/49
== END 2019-05-17 01:04 | disposition home or self-care (01) ==
LOC: EDUNIT# 19:49 → ER 19:50
DX: I48.91 Unspecified atrial fibrillation (principal); N39.0 Urinary tract infection, site not specified; I10 Essential (primary) hypertension; E11.40 Type 2 diabetes mellitus with diabetic neuropathy, unspecified; E78.00 Pure hypercholesterolemia, unspecified; I25.10 Atherosclerotic heart disease of native coronary artery without angina pectoris; I25.2 Old myocardial infarction; F41.9 Anxiety disorder, unspecified; F32.9 Major depressive disorder, single episode, unspecified; G47.30 Sleep apnea, unspecified; E66.01 Morbid (severe) obesity due to excess calories; K21.9 Gastro-esophageal reflux disease without esophagitis; Z85.42 Personal history of malignant neoplasm of other parts of uterus; Z87.440 Personal history of urinary (tract) infections; Z86.718 Personal history of other venous thrombosis and embolism; Z99.89 Dependence on other enabling machines and devices; Z88.8 Allergy status to other drugs, medicaments and biological substances; Z79.82 Long term (current) use of aspirin; Z79.51 Long term (current) use of inhaled steroids; Z79.4 Long term (current) use of insulin; Z79.01 Long term (current) use of anticoagulants; Z87.891 Personal history of nicotine dependence; Z95.5 Presence of coronary angioplasty implant and graft; Z82.49 Family history of ischemic heart disease and other diseases of the circulatory system; Z80.0 Family history of malignant neoplasm of digestive organs
CPT/HCPCS: 36415; 70450; 71045; 80053; 81000; 84484; 85025; 87077; 87088; 87186; 93005; 96361; 96365; 96366; 96375

== ENCOUNTER 2019-05-18 14:25 | Inpatient (IN) | payer MEDICARE, MEDICAID ==
[~2019-05-18] VITALS: Ht 177 cm; Wt 131.0 kg
[2019-05-18] VITALS (8 sets, daily range): BP systolic 111–137; BP diastolic 57–94
[~2019-05-18 14:25] MED LIST changes: +DILT360C26 PO
--- NOTE | 2019-05-18 14:43 | ED Cardiac General ---
History of Present Illness General Chief Complaint: Cardiac/General Problems Stated Complaint: A-FIB Nursing Triage Note: SENT OVER FROM DR JOSE'S OFFICE. COMPLAINS OF SOA, HEART PALPITAIONS. PT DID A MANUAL DOWNLOAD OF HER HEART MONITOR AND WAS TOLD TO COME TO THE ER. Source: patient Exam Limitations: no limitations History of Present Illness Date Seen by Provider: May 18, 2019 Time Seen by Provider: 14:40 Initial Comments To ER with shortness of breath and palpitations beginning 1 hour prior to arrival. She has a history of atrial fibrillation with rapid ventricular response, typically the episodes of rapid ventricular response present in this manner. She had just finished eating a bowl of macaroni salad when this started. She is currently on Cardizem for rate control, the dosage was just increased after to 360 mg daily. She was also here 2 days ago for an episode of rapid ventricular response treated with IV and additional by mouth dose of Cardizem with subsequent reduction in heart rate able to be discharged home from ER. Anticoagulated on warfarin. Also on Effient for history of one coronary stent. She does not have chest pain. Timing/Duration: 1 hour Severity: moderate Activities at Onset: rest Prior CP/Workup: cardiac cath NTG SL READING PROFESSOR: No ASA po READING PROFESSOR: No Associated Systoms: No Chest Pain, No Cough Allergies and Home Medications Allergies Coded Allergies: amylase (Verified Allergy, Unknown, 08/07/15) black cohosh (Verified Allergy, Unknown, 08/07/15) cellulase (Verified Allergy, Unknown, 08/07/15) glyburide (Verified Allergy, Unknown, 08/07/15) isosorbide (Verified Allergy, Unknown, 08/07/15) lipase (Verified Allergy, Unknown, 08/07/15) protease (Verified Allergy, Unknown, 08/07/15) Home Medications Aspirin 81 Mg Tab.chew, 81 MG PO DAILY, (Reported) Atorvastatin Calcium 80 Mg Tablet, 80 MG PO HS, (Reported) Calcium Carbonate/Vitamin D3 1 Each Tablet, 1 TAB PO BID, (Reported) Cephalexin 500 Mg Capsule, 500 MG PO BID Prescribed by: SIVAKUMAR CONTRERAS on 05/17/19 0028 Cetirizine HCl 10 Mg Tablet, 10 MG PO DAILY, (Reported) Cholecalciferol (Vitamin D3) 1,000 Unit Capsule, 2,000 UNIT PO 1200, (Reported) Cyclobenzaprine HCl 10 Mg Tablet, 10 MG PO TID, (Reported) Cyclosporine 1 Each Droperette, 1 DROP OU BID, (Reported) Diltiazem HCl 240 Mg Cap.er.24h, 240 MG PO DAILY, (Reported) Diltiazem HCl 360 Mg Cap.er.24h, 360 MG PO DAILY Prescribed by: SIVAKUMAR CONTRERAS on 05/17/19 0028 Ferrous Sulfate 325 Mg Tablet, 325 MG PO 1800, (Reported) LAST FILLED 11-24-2018 #100 Fluticasone/Vilanterol 1 Each Blst.w.dev, 1 PUFF INH DAILY, (Reported) Gabapentin 800 Mg Tablet, 800 MG PO QID, (Reported) Glucosamine/D3/Boswellia Nellie 1 Each Tablet, 1 TAB PO BID, (Reported) Imipramine HCl 50 Mg Tablet, 50 MG PO HS, (Reported) Insulin Aspart 300 Units/3 Ml Solution, 6 UNITS SQ TIDAC, (Reported) Insulin Glargine,Hum.rec.anlog 100 Unit/1 Ml Vial, 20 UNIT SQ HS, (Reported) Lisinopril 20 Mg Tablet, 20 MG PO DAILY, (Reported) Metformin HCl 1,000 Mg Tablet, 1,000 MG PO BID, (Reported) Mineral Oil/Petrolatum,White 3.5 Gm Oint...g., OU HS, (Reported) Mirabegron 50 Mg Tab.er.24h, 50 MG PO DAILY, (Reported) Multivitamin with Minerals 1 Each Tablet, 1 TAB PO DAILY, (Reported) Nitrofurantoin Macrocrystal 100 Mg Capsule, 100 MG PO DAILY, (Reported) [place] 3 Polyunsat Fatty Acids 1,000 Mg Cap, 1,000 MG PO TID, (Reported) LAST FILLED 11-26-2018 #300 Oxycodone HCl/Acetaminophen 1 Each Tablet, 1 EACH PO Q6H PRN for PAIN-MODERATE (5-7), (Reported) Polyethylene Glycol 3350 17 Gm Powd.pack, 17 GM PO DAILY PRN for CONSTIPATION- 2ND LINE, (Reported) Polyvinyl Alcohol/Povidone 15 Ml Drops, 2 DROPS OU Q2H PRN for DRY EYES, (Reported) Prasugrel HCl 10 Mg Tablet, 10 MG PO DAILY, (Reported) Primidone 250 Mg Tablet, 250 MG PO TID, (Reported) Ranitidine HCl 150 Mg Tablet, 150 MG PO DAILY PRN for HEARTBURN, (Reported) Solifenacin Succinate 10 Mg Tablet, 10 MG PO DAILY, (Reported) Sotalol HCl 80 Mg Tablet, 80 MG PO BID Prescribed by: CHARLY JOSE on 04/24/19 0740 Triamcinolone Acet 15 Gm Cr, 15 GM TP BID Prescribed by: SAWYER TELLO on 03/08/19 0931 Venlafaxine HCl 75 Mg Cap.er.24h, 75 MG PO DAILY, (Reported) Warfarin Sodium 4 Mg Tablet, 4 MG PO SuTuThSa@1600, (Reported) Warfarin Sodium 4 Mg Tablet, 2 MG PO MoWeFr@1600, (Reported) Patient Home Medication List Home Medication List Reviewed: Yes Review of Systems Review of Systems Constitutional: see HPI EENTM: No Symptoms Reported Respiratory: No Symptoms Reported Cardiovascular: No Symptoms Reported Gastrointestinal: No Symptoms Reported Genitourinary: No Symptoms Reported Musculoskeletal: no symptoms reported Skin: no symptoms reported Psychiatric/Neurological: No Symptoms Reported Endocrine: No Symptoms Reported Hematologic/Lymphatic: No Symptoms Reported Past Gcmlkis-Bohdgp-Imvyvr Hx Patient Social History Alcohol Use: Denies Use Recreational Drug Use: No Smoking Status: Former Smoker Type Used: Cigarettes Former Smoker, Quit: May 18, 1980 2nd Hand Smoke Exposure: No Recent Foreign Travel: No Contact w/Someone Who Travel: No Recent Infectious Disease Expo: No Recent Hopitalizations: No Immunizations Up To Date Tetanus Booster (TDap): Unknown PED Vaccines UTD: Yes Date of Pneumonia Vaccine: Feb 13, 2019 Date of Influenza Vaccine: Feb 13, 2019 Seasonal Allergies Seasonal Allergies: No Past Medical History Surgeries: Yes (STENTS PLACED NOVEMBER 2018) Cardiac, Coronary Stent, Eye Surgery, Orthopedic Respiratory: Yes Asthma, Sleep Apnea Currently Using CPAP: Yes Currently Using BIPAP: No Cardiac: Yes Atrial Fibrillation, Chronic Edema/Swelling, Coronary Artery Disease, Deep Vein Thrombosis, Heart Attack, High Cholesterol, Hypertension Neurological: Yes Neuropathy 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 Disorders: Yes Female 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 Disorders: 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 Sexually Transmitted Disease: No HIV/AIDS: No Genitourinary: Yes UTI-Chronic Gastrointestinal: Yes Gastroesophageal Reflux, Chronic Constipation Musculoskeletal: Yes Degenerate Disk Disease, Arthritis, Chronic Back Pain Endocrine: Yes (MORBID OBESITY) Diabetes, Insulin dep HEENT: Yes Cataract Loss of Vision: Bilateral Hearing Impairment: Denies Cancer: No Uterine Psychosocial: Yes Anxiety, Depression Integumentary: No Blood Disorders: No Adverse Reaction/Blood Tranf: No Family Medical History Cardiovascular disease 19 FATHER 19 MOTHER Colon cancer 19 FATHER 19 MOTHER Diabetes mellitus 19 MOTHER G8 BROTHER G8 SISTER Myocardial infarction 19 FATHER No Pertinent Family Hx Physical Exam Vital Signs Vital Signs - First Documented 05/18/19 14:31 Temp 36.5 Pulse 122 Resp 16 B/P (MAP) 143/89 (107) Pulse Ox 100 O2 Delivery Room Air Capillary Refill : Less Than 3 Seconds Height, Weight, BMI Height: 5'10.50" Weight: 302lbs. 0.0oz. 136.147958no; 41.00 BMI Method:Stated General Appearance: No Apparent Distress, WD/WN HEENT: PERRL/EOMI, TMs Normal Respiratory: Lungs Clear, Normal Breath Sounds, No Accessory Muscle Use, No Respiratory Distress Cardiovascular: Irregularly Irregular, Tachycardia (130) Gastrointestinal: Normal Bowel Sounds, Non Tender, Soft Neurologic/Psychiatric: Alert, Oriented x3 Skin: Normal Color, Warm/Dry Progress/Results/Core Measures Results/Orders Lab Results Laboratory Tests Test 05/18/19 14:40 05/18/19 17:25 Range/Units White Blood Count 7.4 4.3-11.0 10^3/uL Red Blood Count 4.81 4.35-5.85 10^6/uL Hemoglobin 13.4 11.5-16.0 G/DL Hematocrit 41 35-52 % Mean Corpuscular Volume 85 80-99 FL Mean Corpuscular Hemoglobin 28 25-34 PG Mean Corpuscular Hemoglobin Concent 33 32-36 G/DL Red Cell Distribution Width 16.4 H 10.0-14.5 % Platelet Count 299 130-400 10^3/uL Mean Platelet Volume 10.0 7.4-10.4 FL Neutrophils (%) (Auto) 45 42-75 % Lymphocytes (%) (Auto) 42 12-44 % Monocytes (%) (Auto) 9 0-12 % Eosinophils (%) (Auto) 4 0-10 % Basophils (%) (Auto) 0 0-10 % Neutrophils # (Auto) 3.3 1.8-7.8 X 10^3 Lymphocytes # (Auto) 3.1 1.0-4.0 X 10^3 Monocytes # (Auto) 0.7 0.0-1.0 X 10^3 Eosinophils # (Auto) 0.3 0.0-0.3 10^3/uL Basophils # (Auto) 0.0 0.0-0.1 10^3/uL Prothrombin Time 27.8 H 12.2-14.7 SEC INR Comment 2.5 H 0.8-1.4 Activated Partial Thromboplast Time 41 H 24-35 SEC Sodium Level 139 135-145 MMOL/L Potassium Level 4.4 3.6-5.0 MMOL/L Chloride Level 103 98-107 MMOL/L Carbon Dioxide Level 22 21-32 MMOL/L Anion Gap 14 5-14 MMOL/L Blood Urea Nitrogen 16 7-18 MG/DL Creatinine 0.74 0.60-1.30 MG/DL Estimat Glomerular Filtration Rate > 60 BUN/Creatinine Ratio 22 Glucose Level 97 70-105 MG/DL Calcium Level 9.3 8.5-10.1 MG/DL Corrected Calcium 9.2 8.5-10.1 MG/DL Magnesium Level 1.8 1.6-2.4 MG/DL Total Bilirubin 0.1 0.1-1.0 MG/DL Aspartate Amino Transf (AST/SGOT) 30 5-34 U/L Alanine Aminotransferase (ALT/SGPT) 43 0-55 U/L Alkaline Phosphatase 170 H 40-136 U/L Myoglobin 21.7 10.0-92.0 NG/ML Troponin I < 0.028 <0.028 NG/ML B-Type Natriuretic Peptide 31.5 <100.0 PG/ML Total Protein 7.7 6.4-8.2 GM/DL Albumin 4.1 3.2-4.5 GM/DL My Orders Orders - ADONAY DUARTE PASTEURIZER Cbc With Automated Diff (05/18/19 14:39) Magnesium (05/18/19 14:39) Chest 1 View, Ap/Pa Only (05/18/19 14:39) Ekg Tracing (05/18/19 14:39) Comprehensive Metabolic Panel (05/18/19 14:39) Myoglobin Serum (05/18/19 14:39) Protime With Inr (05/18/19 14:39) Partial Thromboplastin Time (05/18/19 14:39) O2 (05/18/19 14:39) Monitor-Rhythm Ecg Trace Only (05/18/19 14:39) Lipid Panel (05/19/19 06:00) Ed Iv/Invasive Line Start (05/18/19 14:39) BNP (05/18/19 14:39) Metoprolol Tartrate Injection (Lopressor (05/18/19 14:45) Troponin I (05/18/19 14:40) Diltiazem Injection (Cardizem Injection) (05/18/19 15:15) Diltiazem Cd 24 Hr Capsule (Cardizem Cd (05/18/19 16:00) Diltiazem Tablet (Cardizem Tablet) (05/18/19 16:30) Troponin I (05/18/19 17:12) Digoxin Injection (Lanoxin Injection) (05/18/19 17:30) Metoprolol Tartrate Injection (Lopressor (05/18/19 17:30) Medications Given in ED Current Medications Medications Dose Ordered Sig/Ashley Route Start Time Stop Time Status Last Admin Dose Admin Diltiazem HCl 20 mg ONCE ONCE IVP 05/18/19 15:15 05/18/19 15:16 DC 05/18/19 15:40 10 MG Metoprolol Tartrate 5 mg ONCE ONCE IV 05/18/19 14:45 05/18/19 14:46 DC 05/18/19 14:49 5 MG Vital Signs/I&O 05/18/19 14:31 Temp 36.5 Pulse 122 Resp 16 B/P (MAP) 143/89 (107) Pulse Ox 100 O2 Delivery Room Air Blood Pressure Mean: 107 Departure Communication (Admissions) Time/Spoke to Admitting Phy: 17:31 Dr. Tello, agrees to admit, spoke with Dr. Russell, recommends digoxin loading 0.5 mg IV initially and then 0.25 mg 6 hours later and an additional dose of 0.25 mg 6 hours after that for a total 24 hour loading dose of 1 mg. We can also give Lopressor 5 mg IV. Despite the Lopressor 5 mg IV given here, the Cardizem 10 mg IV given here and the Cardizem 120 mg by mouth given here, her heart rate remains in the 130s. Impression Primary Impression: Atrial fibrillation with rapid ventricular response Disposition: ADMITTED INPATIENT Condition: Stable Admissions Decision to Admit Reason: Admit from ER (General) Decision to Admit/Date: May 18, 2019 Time/Decision to Admit Time: 17:31 Departure-Patient Inst. Referrals: DELIA TRIANA MD (PCP/Family) Primary Care Physician ADONAY DUARTE APRN May 18, 2019 14:42
[2019-05-18] MEDS ORDERED: meTOprolol 5 MG/5 ML (LOPRESSOR) VIAL IV ONE ×2 (14:45→17:30)
[2019-05-18 14:49] LABS: BASOPHILS % (AUTO) 0 % (0-10); EOSINOPHILS # (AUTO) 0.3 10^3/uL (0.0-0.3); EOSINOPHILS % (AUTO) 4 % (0-10); HEMATOCRIT 41 % (35-52); HEMOGLOBIN 13.4 G/DL (11.5-16.0); LYMPHOCYTES # (AUTO) 3.1 X 10^3 (1.0-4.0); LYMPHOCYTES % (AUTO) 42 % (12-44); MEAN CORPUSCULAR HEMOGLOBIN 28 PG (25-34); MEAN CORPUSCULAR HGB CONC 33 G/DL (32-36); MEAN CORPUSCULAR VOLUME 85 FL (80-99); MONOCYTES # (AUTO) 0.7 X 10^3 (0.0-1.0); MONOCYTES % (AUTO) 9 % (0-12); NEUTROPHILS # (AUTO) 3.3 X 10^3 (1.8-7.8); NEUTROPHILS % (AUTO) 45 % (42-75); PLATELET COUNT 299 10^3/uL (130-400); RED CELL DISTRIBUTION WIDTH 16.4 % (10.0-14.5); WHITE BLOOD COUNT 7.4 10^3/uL (4.3-11.0)
[2019-05-18 15:02] LABS: INR 2.5 (0.8-1.4); PROTHROMBIN TIME PATIENT 27.8 SEC (12.2-14.7)
[2019-05-18 15:08] LABS: ALANINE AMINOTRANSFERASE 43 U/L (0-55); ALBUMIN 4.1 GM/DL (3.2-4.5); ALKALINE PHOSPHATASE 170 U/L (40-136); BILIRUBIN,TOTAL 0.1 MG/DL (0.1-1.0); BUN/CREATININE RATIO 22; CALCIUM 9.3 MG/DL (8.5-10.1); CARBON DIOXIDE 22 MMOL/L (21-32); CHLORIDE 103 MMOL/L (98-107); CREATININE SERUM 0.74 MG/DL (0.60-1.30); GFR ESTIMATED > 60; GLUCOSE 97 MG/DL (70-105); MAGNESIUM 1.8 MG/DL (1.6-2.4); POTASSIUM 4.4 MMOL/L (3.6-5.0); SODIUM 139 MMOL/L (135-145); TOTAL PROTEIN 7.7 GM/DL (6.4-8.2)
[2019-05-18] MEDS ORDERED: DILTIAZEM 25 MG/5 ML INJ (CARDIZEM) VIAL IVP ONE (15:15)
--- NOTE | 2019-05-18 15:38 | Diagnostic Imaging Report ---
INDICATION: Atrial fibrillation. Frontal chest obtained at 3:25 p.m. and compared to 05/16/2019. FINDINGS: Heart and mediastinal silhouette are normal in appearance. The lungs are clear. There is no pneumothorax or pleural fluid. IMPRESSION: Negative chest. Dictated by: Dictated on workstation # [id number]
--- NOTE | 2019-05-18 15:40 | NUR ---
Per Yoan Mendes, administer 10 mg cardizem instead of the 20 mg ordered.
[2019-05-18] MEDS ORDERED: DILTIAZEM 180 MG (CARDIZEM CD) CAP PO SCH (16:00)
[2019-05-18] MEDS ORDERED: DILTIAZEM 60 MG (CARDIZEM) TAB PO SCH (16:30)
[2019-05-18] MEDS ORDERED: DIGOXIN 0.25 MG/ML (LANOXIN) 2 ML AMP IV ONE (17:30)
--- NOTE | 2019-05-18 18:05 | NUR ---
spoke to greenhouse staff; have to hold pt in ED until after shift change.
--- NOTE | 2019-05-18 18:10 | NUR ---
pt repositioned and given extra pillow for comfort
[2019-05-18] MEDS ORDERED: meTOprolol 5 MG/5 ML (LOPRESSOR) VIAL IV PRN (20:30)
[2019-05-18] MEDS ORDERED: POLYVINYL ALCOHOL OU PRN (20:30)
[2019-05-18] MEDS ORDERED: CATHETER FLUSH 10 ML SYR IV PRN (20:30)
[2019-05-18] MEDS ORDERED: POLYETHYLENE GLYCOL 17 GM (MIRALAX) PACK PO PRN (20:30)
[2019-05-18] MEDS ORDERED: [UNRECOGNIZED DRUG - OTHER] OU PRN (20:30)
[2019-05-18] MEDS ORDERED: raNItidine (ZANTAC) 150 MG TAB NON-FORMULARY PO PRN (20:30)
[2019-05-18] MEDS ORDERED: POVIDONE OU PRN (20:30)
[2019-05-18] MEDS ORDERED: NON-FORMULARY MEDICATION 1 EA EA (Cyclosporine (Restasis) 1 DROP) OU SCH (21:00)
[2019-05-18] MEDS ORDERED: NON-FORMULARY MEDICATION 1 EA EA (Metformin HCl 1,000 MG) PO SCH (21:00)
[2019-05-18] MEDS ORDERED: NON-FORMULARY MEDICATION 1 EA EA (Calcium Carbonate/Vitamin D3 (Calcium 500 + Vit D Caplet PO SCH (21:00)
[2019-05-18] MEDS ORDERED: NON-FORMULARY MEDICATION 1 EA EA (Gabapentin 800 MG) PO SCH (21:00)
[2019-05-18] MEDS ORDERED: NON-FORMULARY MEDICATION 1 EA EA (Imipramine HCl 50 MG) PO SCH (21:00)
[2019-05-18] MEDS ORDERED: NON-FORMULARY MEDICATION 1 EA EA (Insulin Glargine,Hum.rec.anlog (Lantus) 20 UNIT) SQ SCH (21:00)
[2019-05-18] MEDS ORDERED: LORATADINE (CLARITIN) 10 MG TAB PO PRN (21:15)
[2019-05-18] MEDS: OMEGA 3 (FISH OIL) 1000 MG CAP PO SCH (21:17)
[2019-05-18] MEDS: oxyCODONE/APAP 10/325MG (PERCOCET 10) TABLET PO PRN (21:18)
[2019-05-18] MEDS: CYCLOBENZAPRINE 10 MG (FLEXERIL) TAB PO SCH (21:18)
[2019-05-18] MEDS: SOTALOL 80 MG (BETAPACE) TAB PO SCH ×2 (21:18→21:23)
[2019-05-18] MEDS: TRIAMCINOLONE 0.1% CR (KENALOG) 15 GM TUBE TP SCH (21:20)
[2019-05-18] MEDS ORDERED: GABAPENTIN 400 MG (NEURONTIN) CAP ONE (21:26)
[2019-05-18] MEDS ORDERED: FAMOTIDINE 20 MG (PEPCID) TABLET PO PRN (21:30)
[2019-05-18] MEDS: GABAPENTIN 400 MG (NEURONTIN) CAP PO SCH (21:30)
[2019-05-18] MEDS ORDERED: ARTIFICAL TEARS 0.4 ML UNIT DOSE (REFRESH PLUS) OU PRN (21:30)
[2019-05-18] MEDS: PRIMIDONE 250MG (MYSOLINE) TAB PO SCH (21:30)
[2019-05-18] MEDS: inSUlin ASPART (NovoLOG) 1 UNIT/0.01 ML (CHARGE PER UNIT) SC SCH (21:33)
[2019-05-18] MEDS: CATHETER FLUSH 10 ML SYR IV SCH (22:28)
--- NOTE | 2019-05-18 23:00 | NUR ---
PT HAD C/O SOB AND PAIN IN THE NECK AND FOREHEAD AND. PT STATED THE PAIN CAME ON "ALL OF A SUDDEN". PT DESCRIBES THE PAIN DULL. O2 100% ON RA. EKG RAN FOR SOB AND POTENTIAL GA S/S. EKG ABNORMAL D/T DX OF AFIB. TELLO NOTIFIED OF PT's COMPLAINTS - NO NEW ORDERS AT THIS TIME.
[2019-05-19] VITALS (15 sets, daily range): BP systolic 97–150; BP diastolic 62–101
[2019-05-19 03:18] LABS: BASOPHILS % (AUTO) 0 % (0-10); EOSINOPHILS # (AUTO) 0.4 10^3/uL (0.0-0.3); EOSINOPHILS % (AUTO) 5 % (0-10); HEMATOCRIT 37 % (35-52); HEMOGLOBIN 12.1 G/DL (11.5-16.0); LYMPHOCYTES # (AUTO) 3.4 X 10^3 (1.0-4.0); LYMPHOCYTES % (AUTO) 43 % (12-44); MEAN CORPUSCULAR HEMOGLOBIN 28 PG (25-34); MEAN CORPUSCULAR HGB CONC 33 G/DL (32-36); MEAN CORPUSCULAR VOLUME 86 FL (80-99); MEAN PLATELET VOLUME 10.1 FL (7.4-10.4); MONOCYTES # (AUTO) 0.8 X 10^3 (0.0-1.0); MONOCYTES % (AUTO) 10 % (0-12); NEUTROPHILS # (AUTO) 3.2 X 10^3 (1.8-7.8); NEUTROPHILS % (AUTO) 41 % (42-75); PLATELET COUNT 282 10^3/uL (130-400); RED CELL DISTRIBUTION WIDTH 16.5 % (10.0-14.5); WHITE BLOOD COUNT 7.8 10^3/uL (4.3-11.0)
[2019-05-19 03:28] LABS: INR 2.3 (0.8-1.4); PROTHROMBIN TIME PATIENT 26.6 SEC (12.2-14.7)
[2019-05-19 03:42] LABS: ALANINE AMINOTRANSFERASE 34 U/L (0-55); ALBUMIN 3.5 GM/DL (3.2-4.5); ALKALINE PHOSPHATASE 142 U/L (40-136); BILIRUBIN,TOTAL 0.1 MG/DL (0.1-1.0); BUN/CREATININE RATIO 21; CALCIUM 8.9 MG/DL (8.5-10.1); CARBON DIOXIDE 23 MMOL/L (21-32); CHLORIDE 108 MMOL/L (98-107); CHOLESTEROL 105 MG/DL (< 200); CREATININE SERUM 0.68 MG/DL (0.60-1.30); GFR ESTIMATED > 60; GLUCOSE 92 MG/DL (70-105); HDL CHOLESTEROL 53 MG/DL (40-60); POTASSIUM 4.1 MMOL/L (3.6-5.0); SODIUM 141 MMOL/L (135-145); TOTAL PROTEIN 6.5 GM/DL (6.4-8.2); TRIGLYCERIDES 42 MG/DL (<150); VLDL CHOLESTEROL 8 MG/DL (5-40)
[2019-05-19] MEDS: inSUlin ASPART (NovoLOG) 1 UNIT/0.01 ML (CHARGE PER UNIT) SC SCH ×6 (03:56→20:55)
[2019-05-19] MEDS ORDERED: NON-FORMULARY MEDICATION 1 EA EA (Insulin Aspart (Novolog Flexpen) 6 UNITS) SQ SCH (06:00)
[2019-05-19] MEDS: CATHETER FLUSH 10 ML SYR IV SCH ×3 (06:02→23:52)
[2019-05-19] MEDS: DIGOXIN 0.25 MG/ML (LANOXIN) 2 ML AMP IV SCH ×2 (06:02)
[2019-05-19] MEDS: oxyCODONE/APAP 10/325MG (PERCOCET 10) TABLET PO PRN ×2 (06:09→18:05)
[2019-05-19] MEDS: metFORMIN 500 MG (GLUCOPHAGE) TAB PO SCH ×2 (07:04→16:50)
--- NOTE | 2019-05-19 07:24 | NUR ---
PT REQUESTED THAT HER 0600 NOVOLOG BE GIVEN CLOSER TO WHEN SHE IS READY TO EAT BREAKFAST. THIS RN WILL INFORM DAY SHIFT RN OF PT's REQUEST.
[2019-05-19] MEDS ORDERED: RT-ADVAIR HFA 115/21 MCG PER PUFF IH SCH (08:00)
[2019-05-19] MEDS ORDERED: NON-FORMULARY MEDICATION 1 EA EA (Cetirizine HCl (Zyrtec) 10 MG) PO SCH (09:00)
[2019-05-19] MEDS ORDERED: NITROFURANTOIN MACROCRYSTAL 100 MG PO SCH (09:00)
[2019-05-19] MEDS ORDERED: NON-FORMULARY MEDICATION 1 EA EA (Mirabegron (Myrbetriq) 50 MG) PO SCH (09:00)
[2019-05-19] MEDS ORDERED: NON-FORMULARY MEDICATION 1 EA EA (Solifenacin Succinate (Vesicare) 10 MG) PO SCH (09:00)
[2019-05-19] MEDS: PRASUGREL 10 MG (EFFIENT) TABLET PO SCH (10:29)
[2019-05-19] MEDS: SOTALOL 80 MG (BETAPACE) TAB PO SCH ×3 (10:30→12:46)
[2019-05-19] MEDS: OMEGA 3 (FISH OIL) 1000 MG CAP PO SCH ×3 (10:30→20:54)
[2019-05-19] MEDS: NITROFURANTOIN 50 MG (MACRODANTIN) CAP PO SCH (10:30)
[2019-05-19] MEDS: PRIMIDONE 250MG (MYSOLINE) TAB PO SCH ×3 (10:30→20:54)
[2019-05-19] MEDS: CYCLOBENZAPRINE 10 MG (FLEXERIL) TAB PO SCH ×3 (10:30→20:54)
[2019-05-19] MEDS: MULTIVIT W/MINERALS TAB (THERAGRAN M) PO SCH (10:31)
[2019-05-19] MEDS: TROSPIUM 20 MG (SANCTURA) TAB PO SCH (10:31)
[2019-05-19] MEDS: ASPIRIN 81 MG CHEW (CHILDREN'S ASA) PO SCH (10:31)
[2019-05-19] MEDS: ARTIFICAL TEARS 0.4 ML UNIT DOSE (REFRESH PLUS) OU SCH ×2 (10:32→20:53)
[2019-05-19] MEDS: TRIAMCINOLONE 0.1% CR (KENALOG) 15 GM TUBE TP SCH ×2 (10:32→20:55)
[2019-05-19] MEDS: lisINopril 20 MG (PRINIVIL) TABLET PO SCH (10:43)
[2019-05-19] MEDS: VENlafaxine XR 75 MG (EFFEXOR XR) CAP PO SCH (10:43)
[2019-05-19] MEDS: GABAPENTIN 400 MG (NEURONTIN) CAP PO SCH ×4 (10:44→20:54)
[2019-05-19] MEDS: VITAMIN D3 1,000 UNITS (CHOLECALCIFEROL) TABLET PO SCH (11:53)
[2019-05-19] MEDS ORDERED: NON-FORMULARY MEDICATION 1 EA EA (Cholecalciferol (Vitamin D3) (Vitamin D3) 2,000 UNIT) PO SCH (12:00)
--- NOTE | 2019-05-19 12:37 | History & Physical-Hospitalist ---
History of Present Illness HPI/Chief Complaint CC: AF w/RVR HPI: This is a 68yoWF who has multiple complex medical issues and on 60 medications for many conditions who presented to the ER for the 5th time in the past 2 months for palpitations and found to have AF w/RVR. Cardiology has been consulted and will need atrial ablation since ne meds are effective for this patient. Patient remains therapeutic on INR of 2.5 but had UTI on 05/16/19 in ER placed on Keflex but I reviewed the UCx and it is noted to have Pseudomonas so will place on Meropenem empirically. Source: patient, RN/MD, old records Exam Limitations: no limitations Date Seen 05/19/19 Time Seen by a Provider: 10:30 Attending Physician Tia Rosales David F MD Referring Physician Date of Admission May 18, 2019 at 17:24 Home Medications & Allergies Home Medications Reviewed patient Home Medication Reconciliation performed by pharmacy medication reconciliations shift lab technician and/or nursing. Patients Allergies have been reviewed. Allergies Allergies Coded Allergies amylase (Verified Allergy, Unknown, 08/07/15) black cohosh (Verified Allergy, Unknown, 08/07/15) cellulase (Verified Allergy, Unknown, 08/07/15) glyburide (Verified Allergy, Unknown, 08/07/15) isosorbide (Verified Allergy, Unknown, 08/07/15) lipase (Verified Allergy, Unknown, 08/07/15) protease (Verified Allergy, Unknown, 08/07/15) Past Bwallvh-Agxlxp-Putoxb Hx Past Med/Social Hx: Reviewed Nursing Past Med/Soc Hx, Reviewed and Corrections made Patient Social History Marrital Status: single Employed/Student: unemployed Alcohol Use: Denies Use Recreational Drug Use: No Smoking Status: Former Smoker Former Smoker, Quit: May 18, 1980 Type Used: Cigarettes 2nd Hand Smoke Exposure: No Recent Foreign Travel: No Contact w/other who traveled: No Recent Hopitalizations: No Recent Infectious Disease Expo: No Immunizations Up To Date Tetanus Booster (TDap): Unknown Pediatric: Yes Date of Pneumonia Vaccine: Feb 13, 2019 Date of Influenza Vaccine: Jan 14, 2019 Seasonal Allergies Seasonal Allergies: No Past Medical History Surgeries: Cardiac, Coronary Stent, Eye Surgery, Orthopedic Respiratory: Asthma Currently Using CPAP: Yes Currently Using BIPAP: No Cardiac: Atrial Fibrillation, Chronic Edema/Swelling, Coronary Artery Disease, Deep Vein Thrombosis, Heart Attack, High Cholesterol, Hypertension Neurological: Neuropathy 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: Yes Sexually Transmitted Disease: No HIV/AIDS: No Female 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 Disorders: Denies Menopausal Genitourinary: UTI-Chronic Gastrointestinal: Gastroesophageal Reflux, Chronic Constipation Musculoskeletal: Degenerate Disk Disease, Arthritis, Chronic Back Pain Endocrine: Diabetes, Insulin dep HEENT: Cataract Loss of Vision: Bilateral Hearing Impairment: Denies Cancer: Uterine Psychosocial: Anxiety, Depression History of Blood Disorders: No Adverse Reaction to Blood Funez: No Family History Cardiovascular disease 19 FATHER 19 MOTHER Colon cancer 19 FATHER 19 MOTHER Diabetes mellitus 19 MOTHER G8 BROTHER G8 SISTER Myocardial infarction 19 FATHER No Pertinent Family Hx Review of Systems Constitutional: see HPI, malaise, weakness Cardiovascular: palpitations Musculoskeletal: back pain, joint pain Physical Exam Physical Exam Vital Signs Vital Signs - First Documented 05/18/19 14:31 Temp 36.5 Pulse 122 Resp 16 B/P (MAP) 143/89 (107) Pulse Ox 100 O2 Delivery Room Air Capillary Refill : NONE Height, Weight, BMI Height: 5'10.50" Weight: 302lbs. 0.0oz. [id number]; 41.81 BMI Method:Stated General Appearance: No Apparent Distress, WD/WN, Chronically ill, Obese Eyes: Right Eye Normal Inspection, Right Eye PERRL HEENT: PERRL/EOMI, Normal ENT Inspection, Pharynx Normal, Moist Mucous Membranes Neck: Full Range of Motion, Normal Inspection, Non Tender Respiratory: Chest Non Tender, Lungs Clear, Normal Breath Sounds, No Accessory Muscle Use, No Respiratory Distress Cardiovascular: No Edema, No Gallop, No JVD, No Murmur, Normal Peripheral Pulses, Irregularly Irregular, Tachycardia Gastrointestinal: Normal Bowel Sounds, No Organomegaly, No Pulsatile Mass, Non Tender, Soft Back: Normal Inspection, No CVA Tenderness, No Vertebral Tenderness Extremity: Normal Capillary Refill, Normal Inspection, Normal Range of Motion, Non Tender, No Calf Tenderness, No Pedal Edema Neurologic/Psychiatric: Alert, Oriented x3, Normal Mood/Affect, 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 Assessment/Plan Admission Diagnosis Assessment: AF w/RVR placed on Dig load PAF OAC with Coumadin INR 2.5 today CAD s/p stent placement summer 2018 Bilateral Charcot feet on chronic pain meds Neuropathy Polypharmacy DM HTN HLP Difficulty with coping UTI Pseudomonas from 05/16/19 UCx placed on Kelfex in ER so will add Meropenem Plan: Dr Russell consultation is appreciated and needs atrial ablation since no meds are effective for her Warfarin maintained Monitor closely Meropenem Admission Status: Inpatient Order (span 2 midnights) Reason for Inpatient Admission: Recurrent and refractory AF w/RVR and Pseudomonas UTI Diagnosis/Problems Diagnosis/Problems (1) Atrial fibrillation with rapid ventricular response Status: Acute (2) Pseudomonas infection (3) UTI (urinary tract infection) Status: Acute (4) Presence of stent in coronary artery in patient with coronary artery disease Status: Chronic (5) Insulin dependent diabetes mellitus with complications Status: Chronic (6) DVT prophylaxis Status: Acute (7) Adult BMI 40.0-44.9 kg/sq m Status: Chronic (8) Polypharmacy Status: Chronic (9) Chronic anticoagulation Status: Chronic (10) CAD (coronary artery disease) Status: Chronic (11) Chronic mental illness Status: Chronic (12) Charcot foot due to diabetes mellitus (13) JENNA (obstructive sleep apnea) Status: Chronic (14) Debility (15) Angina pectoris Status: Chronic (16) Stented coronary artery Status: Acute (17) Palpitations Status: Acute (18) Dyspnea Status: Acute (19) Chest pain Status: Acute Clinical Quality Measures AMI/AHF: ASA po Prior to arrival: No DVT/VTE Risk/Contraindication: Risk Factor Score Per Nursin RFS Level Per Nursing on Admit: 4+=Very High TIA ROSALES DO May 19, 2019 12:37
[2019-05-19] MEDS: MEROPENEM 500 MG in WATER (STERILE) FOR INJECTION 10 ML IV SCH ×3 (12:55→23:48)
[2019-05-19] MEDS ORDERED: NON-FORMULARY MEDICATION 1 EA EA (Warfarin Sodium 4 MG) PO SCH (16:00)
[2019-05-19] MEDS: warFARin 2 MG (COUMADIN) TAB PO SCH (16:51)
[2019-05-19] MEDS: CALCIUM CARB + VIT D 600 MG (CALCARB + D) TAB PO SCH (16:51)
--- NOTE | 2019-05-19 16:51 | Consultation-Cardiology ---
HPI-Cardiology Cardiology Consultation: Date of Consultation 05/19/19 Date of Admission Attending Physician Tia Tello DO Admitting Physician Martin Goode MD Consulting Physician Janiya RUSSELL MD HPI: Time Seen by a Provider: 14:00 Chief Complaint: Tachycardia This is a 68-year-old lady who I am previously following for electrophysiology. She has history of persistent atrial fibrillation with rapid ventricular response. She is refractory to multaq. She was started on sotalol. She is on Cardizem for rate control. Her dose was increased to Cardizem 360 mg daily after 05/09/2019. She presented to the ER a few days ago with rapid ventricular rate and was given IV and by mouth Cardizem resulting in better control and therefore she was discharged. The patient is on oral anticoagulation therapy with warfarin. She has history of CAD, morbid obesity, sleep apnea, diabetes. She denies any other cardiac complaints. Review of Systems-Cardiology Review of Systems Constitutional: As described under HPI; No As described under HPI, No no sym ptoms reported, No chills, No fever, No lightheadedness Eyes: No As described under HPI, No no symptoms reported, No blindness, No blurred vision, No contact lenses, No drainage, No decreased acuity, No foreign body sensation, No pain, No vision change Ears/Nose/Throat: No As described under HPI, No no symptoms reported, No chronic hearing loss, No ear discharge, No ear pain, No nasal drainage, No ulcerations Respiratory: No no symptoms reported; As described under HPI; No As described under HPI, No cough, No orthopnea, No shortness of breath, No SOB with excertion Cardiovascular: No no symptoms reported; As described under HPI; No As described under HPI, No chest pain, No edema; irregular heart rate; No lightheadedness; palpitations Gastrointestinal: No no symptoms reported, No As described under HPI, No abdomen distended, No abdominal pain, No blood streaked bowels, No constipation, No diarrhea, No nausea, No vomiting, No stool coloration changes Genitourinary: No As described under HPI, No burning, No dysuria, No discharge, No frequency, No flank pain, No hematuria, No urgency : Yes : No Skin: No rash, No skin related problems, No ulcerations Psychiatric/Neurological: No anxiety, No depression, No seizure, No focal weakness, No syncope Hematologic: No bleeding abnormalities QAU-Agtrns-Nephrf Hx Patient Social History Marrital Status: single Employed/Student: unemployed Alcohol Use: Denies Use Recreational Drug Use: No Smoking Status: Former Smoker Former smoker/When Quit: Aug 07, 1980 Type Used: Cigarettes 2nd Hand Smoke Exposure: No Recent Foreign Travel: No Recent Infectious Disease Expo: No Immunizations Up To Date Tetanus Booster (TDap): Unknown Date of Pneumonia Vaccine: Feb 13, 2019 Date of Influenza Vaccine: Jan 14, 2019 Past Medical History PMH As described under Assessment. Family Medical History Family History: Cardiovascular disease 19 FATHER 19 MOTHER Colon cancer 19 FATHER 19 MOTHER Diabetes mellitus 19 MOTHER G8 BROTHER G8 SISTER Myocardial infarction 19 FATHER Allergies and Home Medications Allergies Coded Allergies: amylase (Verified Allergy, Unknown, 08/07/15) black cohosh (Verified Allergy, Unknown, 08/07/15) cellulase (Verified Allergy, Unknown, 08/07/15) glyburide (Verified Allergy, Unknown, 08/07/15) isosorbide (Verified Allergy, Unknown, 08/07/15) lipase (Verified Allergy, Unknown, 08/07/15) protease (Verified Allergy, Unknown, 08/07/15) Home Medications Aspirin 81 Mg Tab.chew, 81 MG PO DAILY, (Reported) Atorvastatin Calcium 80 Mg Tablet, 80 MG PO HS, (Reported) Calcium Carbonate/Vitamin D3 1 Each Tablet, 1 TAB PO BID, (Reported) Cephalexin 500 Mg Capsule, 500 MG PO BID Prescribed by: SIVAKUMAR CONTRERAS on 05/17/1927 Cetirizine HCl 10 Mg Tablet, 10 MG PO DAILY, (Reported) Cholecalciferol (Vitamin D3) 1,000 Unit Capsule, 2,000 UNIT PO 1200, (Reported) Cyclobenzaprine HCl 10 Mg Tablet, 10 MG PO TID, (Reported) Cyclosporine 1 Each Droperette, 1 DROP OU BID, (Reported) Diltiazem HCl 240 Mg Cap.er.24h, 240 MG PO DAILY, (Reported) Diltiazem HCl 360 Mg Cap.er.24h, 360 MG PO DAILY Prescribed by: SIVAKUMAR CONTRERAS on 05/17/1927 Ferrous Sulfate 325 Mg Tablet, 325 MG PO 1800, (Reported) LAST FILLED 11-24-2018 #100 Fluticasone/Vilanterol 1 Each Blst.w.dev, 1 PUFF INH DAILY, (Reported) Gabapentin 800 Mg Tablet, 800 MG PO QID, (Reported) Glucosamine/D3/Boswellia Nellie 1 Each Tablet, 1 TAB PO BID, (Reported) Imipramine HCl 50 Mg Tablet, 50 MG PO HS, (Reported) Insulin Aspart 300 Units/3 Ml Solution, 6 UNITS SQ TIDAC, (Reported) Insulin Glargine,Hum.rec.anlog 100 Unit/1 Ml Vial, 20 UNIT SQ HS, (Reported) Lisinopril 20 Mg Tablet, 20 MG PO DAILY, (Reported) Metformin HCl 1,000 Mg Tablet, 1,000 MG PO BID, (Reported) Mineral Oil/Petrolatum,White 3.5 Gm Oint...g., OU HS, (Reported) Mirabegron 50 Mg Tab.er.24h, 50 MG PO DAILY, (Reported) Multivitamin with Minerals 1 Each Tablet, 1 TAB PO DAILY, (Reported) Nitrofurantoin Macrocrystal 100 Mg Capsule, 100 MG PO DAILY, (Reported) [facility] 3 Polyunsat Fatty Acids 1,000 Mg Cap, 1,000 MG PO TID, (Reported) LAST FILLED 11-26-2018 #300 Oxycodone HCl/Acetaminophen 1 Each Tablet, 1 EACH PO Q6H PRN for PAIN-MODERATE (5-7), (Reported) Polyethylene Glycol 3350 17 Gm Powd.pack, 17 GM PO DAILY PRN for CONSTIPATION- 2ND LINE, (Reported) Polyvinyl Alcohol/Povidone 15 Ml Drops, 2 DROPS OU Q2H PRN for DRY EYES, (Re ported) Prasugrel HCl 10 Mg Tablet, 10 MG PO DAILY, (Reported) Primidone 250 Mg Tablet, 250 MG PO TID, (Reported) Ranitidine HCl 150 Mg Tablet, 150 MG PO DAILY PRN for HEARTBURN, (Reported) Solifenacin Succinate 10 Mg Tablet, 10 MG PO DAILY, (Reported) Sotalol HCl 80 Mg Tablet, 80 MG PO BID Prescribed by: CHARLY JOSE on 04/24/19 0740 Triamcinolone Acet 15 Gm Cr, 15 GM TP BID Prescribed by: TIA TELLO on 03/08/19 0931 Venlafaxine HCl 75 Mg Cap.er.24h, 75 MG PO DAILY, (Reported) Warfarin Sodium 4 Mg Tablet, 4 MG PO SuTuThSa@1600, (Reported) Warfarin Sodium 4 Mg Tablet, 2 MG PO MoWeFr@1600, (Reported) Patient Home Medication List Home Medication List Reviewed: Yes Physical Exam-Cardiology Physical Exam Vital Signs/I&O 05/19/19 05/19/19 05/19/19 05/19/19 05:00 06:00 07:00 08:00 Pulse 133 134 95 Resp 17 23 B/P (MAP) 113/62 (79) 120/67 (84) Pulse Ox 92 92 95 O2 Delivery Room Air Room Air Room Air 05/19/19 05/19/19 05/19/19 05/19/19 08:00 09:00 10:30 11:29 Temp 36.0 Pulse 138 120 Resp 17 B/P (MAP) 97/69 (78) Pulse Ox 96 97 O2 Delivery Room Air Room Air 05/19/19 05/19/19 05/19/19 05/19/19 12:00 12:00 13:00 16:00 Pulse 89 96 Resp 24 B/P (MAP) 140/101 (114) Pulse Ox 96 96 95 O2 Delivery Room Air Room Air Room Air 05/19/19 00:00 Intake Total 75 ml Balance 75 ml Capillary Refill : NONE Constitutional: appears stated age, AAO x 3; No apparent distress; well- developed, well-nourished HEENT: PERRL; No discharge; hearing is well preserved, oral hygience is good; No ulceration, No xanthelasmas are seen Neck: No carotid bruit; carotid pulses are 2 + bilaterally Respiratory: chest is bilaterally symmetric, lungs clear to auscultation Cardiovascular: regular rate-rhythm, S1 and S2 Gastrointestinal: soft, audible bowel sounds; No spleenomegaly Rectal: deferred Extremities: normal range of motion, non-tender, normal inspection, pedal edema; No clubbing, No cyanosis, No significant edema Neurologic/Psychiatric: no motor/sensory deficits, alert, normal mood/affect, oriented x 3, power is 5/5 both on sides Skin: normal color; No rash, No ulcerations Data Review Labs Laboratory Tests 05/18/19 17:25: Troponin I < 0.028 05/18/19 21:33: Glucometer 120H 05/19/19 02:55: White Blood Count 7.8, Red Blood Count 4.33L, Hemoglobin 12.1, Hematocrit 37, Mean Corpuscular Volume 86, Mean Corpuscular Hemoglobin 28, Mean Corpuscular Hemoglobin Concent 33, Red Cell Distribution Width 16.5H, Platelet Count 282, Mean Platelet Volume 10.1, Neutrophils (%) (Auto) 41L, Lymphocytes (%) (Auto) 43, Monocytes (%) (Auto) 10, Eosinophils (%) (Auto) 5, Basophils (%) (Auto) 0, Neutrophils # (Auto) 3.2, Lymphocytes # (Auto) 3.4, Monocytes # (Auto) 0.8, Eosinophils # (Auto) 0.4H, Basophils # (Auto) 0.0, Prothrombin Time 26.6H, INR C omment 2.3H, Sodium Level 141, Potassium Level 4.1, Chloride Level 108H, Carbon Dioxide Level 23, Anion Gap 10, Blood Urea Nitrogen 14, Creatinine 0.68, Estimat Glomerular Filtration Rate > 60, BUN/Creatinine Ratio 21, Glucose Level 92, Calcium Level 8.9, Corrected Calcium 9.3, Total Bilirubin 0.1, Aspartate Amino Transf (AST/SGOT) 23, Alanine Aminotransferase (ALT/SGPT) 34, Alkaline Phosphatase 142H, Total Protein 6.5, Albumin 3.5, Triglycerides Level 42, Cholesterol Level 105, LDL Cholesterol Direct 38, VLDL Cholesterol 8, HDL Cholesterol 53 05/19/19 11:29: Glucometer 70 05/19/19 15:42: Glucometer 99 05/19/19 16:40: Glucometer 96 ECG Impression ECG Initial ECG Rhythm: Normal Sinus A/P-Cardiology Assessment/Admission Diagnosis Paroxysmal atrial fibrillation, refractory to antiarrhythmic therapy, CAD, Diabetes, Obstructive sleep apnea, Morbid obesity. Plan Plan: Paroxysmal atrial fibrillation, refractory to antiarrhythmic therapy with multaq. On Cardizem infusion she converted to sinus rhythm. She is on sotalol. Currently in sinus rhythm. Continue on Coumadin and monitor INR. I discussed at length about atrial fibrillation ablation. Atrial fibrillation ablation will have modest success in her due to morbid obesity as well as severe obstructive sleep apnea. First procedure success rate with no atrial fibrillation or significant reduction in atrial fibrillation and 1 year will be around 50-60 percent. 2-2.5 percent risk of major complication was told to the patient. She will be discharged on sotalol likely tomorrow and then follow-up in the office in 2-3 weeks and we will hopefully schedule atrial fibrillation ablation at that point in time. Palpitation, fatigue and loss of energy secondary to atrial fibrillation. Elevated CHADSVASC score of at least 5, CAD, diabetes, hypertension, age over 65, female gender. Therefore oral anti-coagulation is superior to aspirin for stroke prevention. CAD, recent drug-eluting stent in the mid LAD in 11/22/2018., Hypertension, Hyperlipidemia, Obstructive sleep apnea on CPAP therapy, Morbid obesity. Thank you for your consultation. Please call me if you have any questions. My Russell MD, FACP, FACC, FSCAI, FHRS, CCDS Interventional Cardiology Cardiac Electrophysiology Vascular Medicine and Endovascular Interventions Clinical Quality Measures AMI/AHF: ASA po Prior to arrival: No DVT/VTE Risk/Contraindication: Risk Factor Score Per Nursin RFS Level Per Nursing on Admit: 4+=Very High Janiya RUSSELL MD May 19, 2019 16:51
[2019-05-19] MEDS: FERROUS SULF 325 MG (IRON) TAB PO SCH (18:05)
[2019-05-19] MEDS: IMIPRAMINE 25 MG (TOFRANIL) TAB PO SCH (20:54)
[2019-05-20] VITALS (8 sets, daily range): BP systolic 105–146; BP diastolic 52–87
[2019-05-20] MEDS: oxyCODONE/APAP 10/325MG (PERCOCET 10) TABLET PO PRN ×4 (00:03→18:59)
[2019-05-20] MEDS: ADVAIR HFA 115/21 MCG INHALER 8 GM IH SCH ×3 (02:00→20:45)
[2019-05-20 04:09] LABS: BASOPHILS % (AUTO) 0 % (0-10); EOSINOPHILS # (AUTO) 0.4 10^3/uL (0.0-0.3); EOSINOPHILS % (AUTO) 5 % (0-10); HEMATOCRIT 39 % (35-52); HEMOGLOBIN 12.5 G/DL (11.5-16.0); LYMPHOCYTES # (AUTO) 3.4 X 10^3 (1.0-4.0); LYMPHOCYTES % (AUTO) 44 % (12-44); MEAN CORPUSCULAR HEMOGLOBIN 28 PG (25-34); MEAN CORPUSCULAR HGB CONC 33 G/DL (32-36); MEAN CORPUSCULAR VOLUME 86 FL (80-99); MEAN PLATELET VOLUME 10.1 FL (7.4-10.4); MONOCYTES # (AUTO) 0.7 X 10^3 (0.0-1.0); MONOCYTES % (AUTO) 10 % (0-12); NEUTROPHILS # (AUTO) 3.1 X 10^3 (1.8-7.8); NEUTROPHILS % (AUTO) 41 % (42-75); PLATELET COUNT 252 10^3/uL (130-400); RED CELL DISTRIBUTION WIDTH 16.3 % (10.0-14.5); WHITE BLOOD COUNT 7.6 10^3/uL (4.3-11.0)
[2019-05-20 04:21] LABS: INR 1.8 (0.8-1.4); PROTHROMBIN TIME PATIENT 22.1 SEC (12.2-14.7)
[2019-05-20 04:33] LABS: ALANINE AMINOTRANSFERASE 40 U/L (0-55); ALBUMIN 3.6 GM/DL (3.2-4.5); ALKALINE PHOSPHATASE 135 U/L (40-136); BILIRUBIN,TOTAL 0.2 MG/DL (0.1-1.0); BUN/CREATININE RATIO 30; CALCIUM 9.1 MG/DL (8.5-10.1); CARBON DIOXIDE 23 MMOL/L (21-32); CHLORIDE 104 MMOL/L (98-107); CREATININE SERUM 0.64 MG/DL (0.60-1.30); GFR ESTIMATED > 60; GLUCOSE 82 MG/DL (70-105); POTASSIUM 3.9 MMOL/L (3.6-5.0); SODIUM 140 MMOL/L (135-145); TOTAL PROTEIN 6.9 GM/DL (6.4-8.2)
[2019-05-20] MEDS: CATHETER FLUSH 10 ML SYR IV SCH ×2 (06:30→14:39)
[2019-05-20] MEDS: inSUlin ASPART (NovoLOG) 1 UNIT/0.01 ML (CHARGE PER UNIT) SC SCH ×7 (06:30→20:45)
[2019-05-20] MEDS: MEROPENEM 500 MG in WATER (STERILE) FOR INJECTION 10 ML IV SCH ×3 (06:30→16:27)
[2019-05-20] MEDS ORDERED: oxyCODONE/APAP 10/325MG (PERCOCET 10) TABLET PO ONE (07:30)
[2019-05-20] MEDS: CALCIUM CARB + VIT D 600 MG (CALCARB + D) TAB PO SCH ×2 (07:43→17:20)
[2019-05-20] MEDS: metFORMIN 500 MG (GLUCOPHAGE) TAB PO SCH ×2 (07:43→17:20)
[2019-05-20] MEDS: PRIMIDONE 250MG (MYSOLINE) TAB PO SCH ×3 (09:25→20:36)
[2019-05-20] MEDS: OMEGA 3 (FISH OIL) 1000 MG CAP PO SCH ×3 (09:25→20:36)
[2019-05-20] MEDS: lisINopril 20 MG (PRINIVIL) TABLET PO SCH (09:25)
[2019-05-20] MEDS: CYCLOBENZAPRINE 10 MG (FLEXERIL) TAB PO SCH ×3 (09:25→20:35)
[2019-05-20] MEDS: TROSPIUM 20 MG (SANCTURA) TAB PO SCH (09:25)
[2019-05-20] MEDS: GABAPENTIN 400 MG (NEURONTIN) CAP PO SCH ×4 (09:25→20:36)
[2019-05-20] MEDS: PRASUGREL 10 MG (EFFIENT) TABLET PO SCH (09:25)
[2019-05-20] MEDS: VENlafaxine XR 75 MG (EFFEXOR XR) CAP PO SCH (09:25)
[2019-05-20] MEDS: MULTIVIT W/MINERALS TAB (THERAGRAN M) PO SCH (09:25)
[2019-05-20] MEDS: ASPIRIN 81 MG CHEW (CHILDREN'S ASA) PO SCH (09:26)
[2019-05-20] MEDS: NITROFURANTOIN 50 MG (MACRODANTIN) CAP PO SCH (09:26)
[2019-05-20] MEDS: ARTIFICAL TEARS 0.4 ML UNIT DOSE (REFRESH PLUS) OU SCH ×2 (09:26→20:37)
[2019-05-20] MEDS: TRIAMCINOLONE 0.1% CR (KENALOG) 15 GM TUBE TP SCH ×2 (09:31→20:36)
[2019-05-20] MEDS: VITAMIN D3 1,000 UNITS (CHOLECALCIFEROL) TABLET PO SCH (11:25)
--- NOTE | 2019-05-20 13:09 | Progress Note - Hospitalist ---
Subjective HPI/CC On Admission Date Seen by Provider: May 20, 2019 Time Seen by Provider: 11:30 CC: AF w/RVR HPI: This is a 68yoWF who has multiple complex medical issues and on 60 medications for many conditions who presented to the ER for the 5th time in the past 2 months for palpitations and found to have AF w/RVR. Cardiology has been consulted and will need atrial ablation since ne meds are effective for this patient. Patient remains therapeutic on INR of 2.5 but had UTI on 05/16/19 in ER placed on Keflex but I reviewed the UCx and it is noted to have Pseudomonas so will place on Meropenem empirically. Subjective/Events-last exam Patient tearful due to the severity of her pain Narcotic dependence discussed Will given her home Percocet dose early but we will not be adding any IV pain meds AF well controlled now Pseudomonas UCx sensitivity is pending Meropenem maintained Review of Systems Neurological: Weakness, Incoordination Objective Exam Vital Signs Vital Signs Date Time Temp Pulse Resp B/P (MAP) Pulse Ox O2 Delivery O2 Flow Rate FiO2 05/20/19 20:00 36.1 95 12 136/87 (103) 95 Room Air Capillary Refill : NONE General Appearance: WD/WN, Chronically ill, Moderate Distress (due to chronic pain in legs) Respiratory: Chest Non Tender, Lungs Clear, Normal Breath Sounds, No Accessory Muscle Use, No Respiratory Distress Cardiovascular: Regular Rate, Rhythm, No Edema, No Gallop, No JVD, No Murmur, Normal Peripheral Pulses Neurologic/Psychiatric: Alert, Oriented x3, No Motor/Sensory Deficits, Normal Mood/Affect Results/Procedures Lab Laboratory Tests 05/20/19 03:27 Patient resulted labs reviewed. Assessment/Plan Assessment and Plan Assess & Plan/Chief Complaint Assessment: AF w/RVR placed on Dig load PAF OAC with Coumadin INR 1.8 today CAD s/p stent placement summer 2018 Bilateral Charcot feet on chronic pain meds Neuropathy Polypharmacy DM HTN HLP Difficulty with coping UTI Pseudomonas from 05/16/19 UCx placed on Kelfex in ER so will add Meropenem Plan: Dr Russell consultation is appreciated and needs atrial ablation since no meds are effective for her Warfarin maintained Monitor closely Meropenem Diagnosis/Problems Diagnosis/Problems (1) Atrial fibrillation with rapid ventricular response Status: Acute (2) Pseudomonas infection (3) UTI (urinary tract infection) Status: Acute (4) Presence of stent in coronary artery in patient with coronary artery disease Status: Chronic (5) Insulin dependent diabetes mellitus with complications Status: Chronic (6) DVT prophylaxis Status: Acute (7) Adult BMI 40.0-44.9 kg/sq m Status: Chronic (8) Polypharmacy Status: Chronic (9) Chronic anticoagulation Status: Chronic (10) CAD (coronary artery disease) Status: Chronic (11) Chronic mental illness Status: Chronic (12) Charcot foot due to diabetes mellitus (13) JENNA (obstructive sleep apnea) Status: Chronic (14) Debility (15) Angina pectoris Status: Chronic (16) Stented coronary artery Status: Acute (17) Palpitations Status: Acute (18) Dyspnea Status: Acute (19) Chest pain Status: Acute Clinical Quality Measures AMI/AHF: ASA po Prior to arrival: No DVT/VTE Risk/Contraindication: Risk Factor Score Per Nursin RFS Level Per Nursing on Admit: 4+=Very High SAWYER TELLO DO May 20, 2019 13:09
--- NOTE | 2019-05-20 14:30 | NUR ---
Dr Russell gave verbal order for Pt to go home with Amiodarone 200 mg BID for the first week and once daily thereafter
--- NOTE | 2019-05-20 15:27 | Cardiology Progress Note ---
Cardiology SOAP Progress Note Subjective: No cardiac complaint's. Patient is in sinus rhythm. Objective: I&O/Vital Signs 05/20/19 05/20/19 05/20/19 05/20/19 04:00 04:00 07:00 08:00 Pulse 84 95 89 Resp 15 12 B/P (MAP) 126/71 (89) Pulse Ox 98 98 96 O2 Delivery Room Air Room Air Room Air 05/20/19 05/20/19 05/20/19 05/20/19 08:00 08:00 09:00 12:00 Temp 36.3 Pulse 89 86 Resp 12 14 B/P (MAP) 126/71 (89) 125/61 (82) Pulse Ox 98 98 96 93 O2 Delivery Room Air Room Air Room Air Room Air 05/20/19 05/20/19 05/20/19 12:00 12:00 13:00 Temp 36.0 Pulse 102 Pulse Ox 99 O2 Delivery Room Air 05/20/19 00:00 Intake Total 1550 ml Balance 1550 ml Weight (Pounds): 302 Weight (Ounces): 0.0 Weight (Calculated Kilograms): 136.773073 Constitutional: appears stated age, AAO x 3; No apparent distress; well-developed, well-nourished Respiratory: chest is bilaterally symmetric, lungs clear to auscultation Cardiovascular: regular rate-rhythm, S1 and S2 Gastrointestional: soft, audible bowel sounds; No spleenomegaly Extremities: normal range of motion, non-tender, normal inspection, pedal edema; No clubbing, No cyanosis, No significant edema Neurologic/Psychiatric: no motor/sensory deficits, alert, normal mood/affect, oriented x 3, power is 5/5 both on sides Skin: normal color; No rash, No ulcerations Results/Procedures: Labs Laboratory Tests 05/19/19 15:42: Glucometer 99 05/19/19 16:40: Glucometer 96 05/19/19 19:59: Glucometer 103 05/20/19 00:01: Glucometer 135H 05/20/19 03:27: White Blood Count 7.6, Red Blood Count 4.48, Hemoglobin 12.5, Hematocrit 39, Mean Corpuscular Volume 86, Mean Corpuscular Hemoglobin 28, Mean Corpuscular Hemoglobin Concent 33, Red Cell Distribution Width 16.3H, Platelet Count 252, Mean Platelet Volume 10.1, Neutrophils (%) (Auto) 41L, Lymphocytes (%) (Auto) 44, Monocytes (%) (Auto) 10, Eosinophils (%) (Auto) 5, Basophils (%) (Auto) 0, Neutrophils # (Auto) 3.1, Lymphocytes # (Auto) 3.4, Monocytes # (Auto) 0.7, Eosinophils # (Auto) 0.4H, Basophils # (Auto) 0.0, Prothrombin Time 22.1H, INR Comment 1.8H, Sodium Level 140, Potassium Level 3.9, Chloride Level 104, Carbon Dioxide Level 23, Anion Gap 13, Blood Urea Nitrogen 19H, Creatinine 0.64, Estimat Glomerular Filtration Rate > 60, BUN/Creatinine Ratio 30, Glucose Level 82, Calcium Level 9.1, Corrected Calcium 9.4, Total Bilirubin 0.2, Aspartate Amino Transf (AST/SGOT) 30, Alanine Aminotransferase (ALT/SGPT) 40, Alkaline Phosphatase 135, Total Protein 6.9, Albumin 3.6 05/20/19 07:42: Glucometer 77 05/20/19 11:41: Glucometer 86 A/P: Assessment/Dx: Paroxysmal atrial fibrillation, refractory to antiarrhythmic therapy, CAD, Diabetes, Obstructive sleep apnea, Morbid obesity. Plan: Plan: Paroxysmal atrial fibrillation, refractory to antiarrhythmic therapy with multaq. On Cardizem infusion she converted to sinus rhythm. Sotalol had to be discontinued previously due to side effects. Currently in sinus rhythm. Continue on Coumadin and monitor INR. Start amiodarone 200 mg twice a day for a week. Will follow-up in the office in 2 weeks. Will discuss atrial fibri llation ablation. Modest success with atrial fibrillation ablation in a patient with morbid obesity, obstructive sleep apnea on CPAP therapy. Palpitation, fatigue and loss of energy secondary to atrial fibrillation. Elevated CHADSVASC score of at least 5, CAD, diabetes, hypertension, age over 65, female gender. Therefore oral anti-coagulation is superior to aspirin for stroke prevention. CAD, recent drug-eluting stent in the mid LAD in 11/22/2018., Hypertension, Hyperlipidemia, Obstructive sleep apnea on CPAP therapy, Morbid obesity. Thank you for your consultation. Please call me if you have any questions. My Russell MD, FACP, FACC, FSCAI, FHRS, CCDS Interventional Cardiology Cardiac Electrophysiology Vascular Medicine and Endovascular Interventions Clinical Quality Measures AMI/AHF: ASA po Prior to arrival: Janiya Loyola MD May 20, 2019 15:27
[2019-05-20] MEDS: warFARin 2 MG (COUMADIN) TAB PO SCH (16:27)
[2019-05-20] MEDS: FERROUS SULF 325 MG (IRON) TAB PO SCH (17:24)
[2019-05-20] MEDS: AMIODARONE 200 MG (CORDARONE) TAB PO SCH (20:35)
[2019-05-20] MEDS: IMIPRAMINE 25 MG (TOFRANIL) TAB PO SCH (20:36)
[2019-05-21] VITALS: BP 109/71
[2019-05-21] MEDS: MEROPENEM 500 MG in WATER (STERILE) FOR INJECTION 10 ML IV SCH ×3 (00:04→11:42)
[2019-05-21] MEDS: CATHETER FLUSH 10 ML SYR IV SCH ×2 (00:04→06:37)
[2019-05-21] MEDS: oxyCODONE/APAP 10/325MG (PERCOCET 10) TABLET PO PRN ×3 (00:11→13:29)
[2019-05-21 04:00] VITALS: BP 93/45
[2019-05-21] MEDS: inSUlin ASPART (NovoLOG) 1 UNIT/0.01 ML (CHARGE PER UNIT) SC SCH ×4 (06:40→11:42)
[2019-05-21] MEDS: CALCIUM CARB + VIT D 600 MG (CALCARB + D) TAB PO SCH (07:58)
[2019-05-21] MEDS: metFORMIN 500 MG (GLUCOPHAGE) TAB PO SCH (07:58)
[2019-05-21 08:00] VITALS: BP 123/70
[2019-05-21] MEDS: ADVAIR HFA 115/21 MCG INHALER 8 GM IH SCH (08:07)
[2019-05-21] MEDS ORDERED: ACET-2267 PO ×2 (09:14)
[2019-05-21] MEDS: GABAPENTIN 400 MG (NEURONTIN) CAP PO SCH ×2 (09:14→13:29)
[2019-05-21] MEDS: NITROFURANTOIN 50 MG (MACRODANTIN) CAP PO SCH (09:14)
[2019-05-21] MEDS ORDERED: OXYC1TAB12 PO ×2 (09:14)
[2019-05-21] MEDS: PRIMIDONE 250MG (MYSOLINE) TAB PO SCH ×2 (09:14→13:29)
[2019-05-21] MEDS: TROSPIUM 20 MG (SANCTURA) TAB PO SCH (09:14)
[2019-05-21] MEDS ORDERED: TR1C15 TP ×2 (09:14)
[2019-05-21] MEDS ORDERED: DILT360C36 PO ×2 (09:14)
[2019-05-21] MEDS: PRASUGREL 10 MG (EFFIENT) TABLET PO SCH (09:14)
[2019-05-21] MEDS ORDERED: ASPI-983 PO ×2 (09:14)
[2019-05-21] MEDS ORDERED: FAMO-119 PO ×2 (09:14)
[2019-05-21] MEDS ORDERED: CEPH500C PO ×2 (09:14)
[2019-05-21] MEDS ORDERED: HYDR-3584 PO ×2 (09:14)
[2019-05-21] MEDS ORDERED: LACT1CAP39 PO ×2 (09:14)
[2019-05-21] MEDS: CYCLOBENZAPRINE 10 MG (FLEXERIL) TAB PO SCH ×2 (09:15→13:29)
[2019-05-21] MEDS: VENlafaxine XR 75 MG (EFFEXOR XR) CAP PO SCH (09:15)
[2019-05-21] MEDS: lisINopril 20 MG (PRINIVIL) TABLET PO SCH (09:15)
[2019-05-21] MEDS: OMEGA 3 (FISH OIL) 1000 MG CAP PO SCH ×2 (09:15→13:29)
[2019-05-21] MEDS: ARTIFICAL TEARS 0.4 ML UNIT DOSE (REFRESH PLUS) OU SCH (09:15)
[2019-05-21] MEDS: MULTIVIT W/MINERALS TAB (THERAGRAN M) PO SCH (09:15)
[2019-05-21] MEDS: ASPIRIN 81 MG CHEW (CHILDREN'S ASA) PO SCH (09:15)
--- NOTE | 2019-05-21 09:18 | NUR ---
PATIENT HAS A DETAILED MEDICATION LIST, I HAVE GONE OVER HER LIST IN DETAIL WITH HER BEFORE AT PREVIOUS ADMISSIONS. I COMPARED WHAT SHE HAS ON HER LIST WITH THE EXT MED HX. [facility] I DID NOT REQUEST THOSE RECORDS AT THIS TIME DUE TO HER STATING SHE IS PROBABLY GOING HOME TODAY AND SHE HAS AN UP TO DATE LIST WITH HER. SHE NOTES THE FOLLOWING CHANGES HAVE BEEN MADE SINCE SHE WAS LAST ADMITTED: WAS TAKING CEPHALEXIN PRIOR TO ADMISSION. DILTIAZEM WAS INCREASED FROM 240MG TO 360MG. THEY STOPPED HER SOTALOL ABOUT A WEEK AGO DUE TO BLURRY VISION. SHE CHANGED HER ZANTAC PRN TO PEPCID PRN. WARFARIN DOSE WAS INCREASED ON FRIDAYS TO 4MG. NEW SCRIPT FOR HYDROXYZINE TID. SHE STATES SHE HAS NOT BEEN USING RESTASIS RECENTLY DUE TO BEING IN THE HOSPITAL AND OTHER THINGS GOING ON SHE HAS NOT BEEN KEEPING UP WITH IT.
[2019-05-21] MEDS: TRIAMCINOLONE 0.1% CR (KENALOG) 15 GM TUBE TP SCH (09:19)
--- NOTE | 2019-05-21 09:27 | Progress Note ---
Subjective Subjective/Events-last exam Started Sotalol Apr 22, had blurry vision, difficulty concentrating, "no one upstairs" CT was okay. This am her eyesight is quite a bit worse, she hasn't taken her amiodarone. Stopped sotalol a week ago, was somewhat better. Vision is blurry, had double vision already previously that was supposed to be corrected with her current glasses. Eye doc is at [facility] in [place] and has been in and out of hospital several times since last visit, was dx with very dry eyes, has been using eye drops and ointment at night. No loss of vision. Objective Exam Last Set of Vital Signs Vital Signs Date Time Temp Pulse Resp B/P (MAP) Pulse Ox O2 Delivery O2 Flow Rate FiO2 05/21/19 08:15 100 Room Air 05/21/19 08:00 94 14 123/70 (87) 05/21/19 07:34 36.0 Capillary Refill : NONE I&O Intake and Output 05/21/19 00:00 Intake Total 1875 ml Balance 1875 ml Intake Oral 1875 ml # Voids 6 # Bowel Movements 1 General: Alert HEENT: PERRLA, EOMI Heart: Other (tachycardic, regular rhythm) Neuro: Normal Speech Psych/Mental Status: Mental Status NL Results/Procedures Lab Laboratory Tests 05/20/19 11:41: Glucometer 86 05/20/19 15:32: Glucometer 124H 05/20/19 20:31: Glucometer 104 05/21/19 06:40: Glucometer 72 Assessment/Plan Assessment/Plan Assessment & Plan Atrial fibrillation- currently in sinus rhythm, will discuss with Cardiology whether okay with continuing amiodarone, if so, may d/c later today UTI- with multiple resistance, will need cipro on d/c, will have to monitor INR closely Blurry vision- apparently chronic, unclear if related to meds, may need to follow up with eye doctor again Clinical Quality Measures AMI/AHF: ASA po Prior to arrival: No DVT/VTE Risk/Contraindication: Risk Factor Score Per Nursin RFS Level Per Nursing on Admit: 4+=Very High JAVIER WATSON MD May 21, 2019 09:27
[2019-05-21] MEDS: AMIODARONE 200 MG (CORDARONE) TAB PO SCH (10:51)
[2019-05-21] MEDS: VITAMIN D3 1,000 UNITS (CHOLECALCIFEROL) TABLET PO SCH (11:43)
[2019-05-21] MEDS ORDERED: AMIO200T4 PO ×2 (11:52)
[2019-05-21 12:00] VITALS: BP_SYST 133; BP_SYST 161; BP_DIAS 81; BP_DIAS 90
[2019-05-21 12:39] LABS: INR 1.7 (0.8-1.4); PROTHROMBIN TIME PATIENT 20.7 SEC (12.2-14.7)
[2019-05-21 12:44] LABS: BUN/CREATININE RATIO 21; CALCIUM 9.4 MG/DL (8.5-10.1); CARBON DIOXIDE 26 MMOL/L (21-32); CHLORIDE 104 MMOL/L (98-107); CREATININE SERUM 0.67 MG/DL (0.60-1.30); GFR ESTIMATED > 60; GLUCOSE 66 MG/DL (70-105); POTASSIUM 4.1 MMOL/L (3.6-5.0); SODIUM 142 MMOL/L (135-145)
[2019-05-21] MEDS ORDERED: CIPR-225 PO ×2 (12:54)
--- NOTE | 2019-05-21 12:56 | Discharge Instructions ---
Discharge [facility] Discharge Medications New, Converted or Re-Newed RX: Transmitted to Pharmacy New Medications: Ciprofloxacin HCl (Cipro) 500 Mg Tablet 500 MG PO BID, #8 TAB 0 Refills Amiodarone HCl (Amiodarone HCl) 200 Mg Tablet 200 MG PO BID, #60 TAB 0 Refills Continued Medications: Acetaminophen (Tylenol Extra Strength) 500 Mg Tablet 1000 MG PO Q6H PRN for PAIN-MILD (1-4), TAB Aspirin (Aspirin EC) 81 Mg Tablet.dr 81 MG PO DAILY, TAB Atorvastatin Calcium (Atorvastatin Calcium) 80 Mg Tablet 80 MG PO HS, TAB Calcium Carbonate/Vitamin D3 (Calcium 500 + Vit D Caplet) 1 Each Tablet 1 TAB PO BID, TAB Cetirizine HCl (Zyrtec) 10 Mg Tablet 10 MG PO DAILY, TAB Cholecalciferol (Vitamin D3) (Vitamin D3) 1,000 Unit Capsule 2000 UNIT PO 1200, CAP Cyclobenzaprine HCl (Cyclobenzaprine HCl) 10 Mg Tablet 10 MG PO TID, TAB Diltiazem HCl (Diltiazem 24Hr ER) 360 Mg Cap.er.24h 360 MG PO DAILY, CAP Famotidine (Pepcid) 20 Mg Tablet 20 MG PO DAILY PRN for HEARTBURN, TAB Ferrous Sulfate (Ferrous Sulfate) 325 Mg Tablet 325 MG PO 1800, TAB Fluticasone/Vilanterol (Breo Ellipta 200-25 Mcg INH) 1 Each Blst.w.dev 1 PUFF INH DAILY, INHALER Gabapentin (Gabapentin) 800 Mg Tablet 800 MG PO QID, TAB Glucosamine/D3/Boswellia Nellie (Osteo Bi-Flex Caplet) 1 Each Tablet 1 TAB PO BID, TAB Hydroxyzine HCl (Hydroxyzine HCl) 10 Mg Tablet 10 MG PO TID, TAB Imipramine HCl (Imipramine HCl) 50 Mg Tablet 50 MG PO HS, TAB Insulin Aspart (Novolog Flexpen) 300 Units/3 Ml Solution 6 UNITS SQ TIDAC, EA Insulin Glargine,Hum.rec.anlog (Lantus) 100 Unit/1 Ml Vial 20 UNIT SQ HS, EA Lactobacillus Rhamnosus GG (Culturelle) 1 Each Capsule 1 CAP PO DAILY PRN for WHILE TAKING ANTIBIOTICS, CAP Lisinopril (Lisinopril) 20 Mg Tablet 20 MG PO DAILY, TAB Metformin HCl (Metformin HCl) 1,000 Mg Tablet 1000 MG PO BID, TAB Mineral Oil/Petrolatum,White (Refresh Lacri-Lube Ointment) 3.5 Gm Oint...g. OU HS, EA Mirabegron (Myrbetriq) 50 Mg Tab.er.24h 50 MG PO DAILY, TAB Multivitamin with Minerals (Multivitamins with Minerals) 1 Each Tablet 1 TAB PO DAILY, TAB Nitrofurantoin Macrocrystal (Nitrofurantoin) 100 Mg Capsule 100 MG PO DAILY, CAP [place] 3 Polyunsat Fatty Acids (Fish Oil 1,000 mg Capsule) 1,000 Mg Cap 1000 MG PO TID, CAP Oxycodone HCl/Acetaminophen (Percocet 10-325 mg Tablet) 1 Each Tablet 1 TAB PO EVERY 4-6 HOURS PRN for PAIN-MODERATE (5-7), TAB Polyethylene Glycol 3350 (Miralax) 17 Gm Powd.pack 17 GM PO DAILY PRN for CONSTIPATION-2ND LINE, EACH Polyvinyl Alcohol/Povidone (Artificial Tears Drops) 15 Ml Drops 2 DROPS OU Q2H PRN for DRY EYES, EA Prasugrel HCl (Prasugrel HCl) 10 Mg Tablet 10 MG PO DAILY, TAB Primidone (Mysoline) 250 Mg Tablet 250 MG PO TID Solifenacin Succinate (Vesicare) 10 Mg Tablet 10 MG PO 1600, TAB Triamcinolone Acet (Triamcinolone Acetonide 0.1% Cream) 15 Gm Cr TP BID PRN for RASH, TUBE Venlafaxine HCl (Venlafaxine HCl ER) 75 Mg Cap.er.24h 75 MG PO DAILY, CAP Warfarin Sodium (Warfarin Sodium) 4 Mg Tablet 4 MG PO SuTuThFrSa@1600, TAB Warfarin Sodium (Warfarin Sodium) 4 Mg Tablet 2 MG PO MoWe@1600, TAB Discontinued Medications: Cephalexin (Cephalexin) 500 Mg Capsule 500 MG PO BID for 7 Days, CAP 7 DAY SUPPLY FILLED 05-17-19 Patient Instructions Goal/Follow Up Appt: Follow up with Dr. Goode on 05/22 at 1140 am. You should have your INR checked then as well. Follow up with Dr. Russell as directed. Patient Instructions: Do not take hydroxyzine while on cipro (antibiotics) Return to [facility] For: Fever, inability to take medications, racing heart Activity & Diet Discharge Diet: Cardiac Diet Copy Copies To 1: HUDELIA ZAIDI MD, BETHANY N MD May 21, 2019 12:56
--- NOTE | 2019-05-21 12:57 | Discharge Summary ---
Discharge Summary Hospital Course Hospital Course Date of Admission: May 18, 2019 at 17:24 Admission Diagnosis : Atrial fibrillation with RVR Urinary Tract infection Family Physician/Provider: Martin Triana MD Date of Discharge: 05/21/19 Discharge Diagnosis: Atrial fibrillation- converted on diltiazem drip, started on amiodarone, continued on d/c. Will follow up with Dr. Russell outpatient, possible ablation, but success rate not ideal in her case. Continued warfarin, but INR was 1.7 on day of d/c. UTI- pseudomonas, only oral treatment option ciprofloxacin, will need INR monitored closely- was subtherapeutic on d/c. Blurry vision- not thought to be clearly related to amiodarone, continue to follow up with eye doctor. Hospital Course: See discharge diagnosis Labs and Pending Lab Test: Laboratory Tests 05/20/19 15:32: Glucometer 124H 05/20/19 20:31: Glucometer 104 05/21/19 06:40: Glucometer 72 05/21/19 11:14: Glucometer 115H 05/21/19 12:13: Prothrombin Time 20.7H, INR Comment 1.7H, Sodium Level 142, Potassium Level 4.1, Chloride Level 104, Carbon Dioxide Level 26, Anion Gap 12, Blood Urea Nitrogen 14, Creatinine 0.67, Estimat Glomerular Filtration Rate > 60, BUN/Creatinine Ratio 21, Glucose Level 66L, Calcium Level 9.4 Microbiology 05/18/19 MRSA Screen - Final, Complete MRSA not isolated Home Meds Active Cipro (Ciprofloxacin HCl) 500 Mg Tablet 500 Mg PO BID Amiodarone HCl 200 Mg Tablet 200 Mg PO BID Reported Culturelle (Lactobacillus Rhamnosus GG) 1 Each Capsule 1 Cap PO DAILY PRN Tylenol Extra Strength (Acetaminophen) 500 Mg Tablet 1,000 Mg PO Q6H PRN Triamcinolone Acetonide 0.1% Cream (Triamcinolone Acet) 15 Gm Cr TP BID PRN Pepcid (Famotidine) 20 Mg Tablet 20 Mg PO DAILY PRN Percocet 10-325 mg Tablet (Oxycodone HCl/Acetaminophen) 1 Each Tablet 1 Tab PO EVERY 4-6 HOURS PRN Hydroxyzine HCl 10 Mg Tablet 10 Mg PO TID Cephalexin 500 Mg Capsule 500 Mg PO BID 7 Days 7 DAY SUPPLY FILLED 20 Diltiazem 24Hr ER (Diltiazem HCl) 360 Mg Cap.er.24h 360 Mg PO DAILY Aspirin EC (Aspirin) 81 Mg Tablet.dr 81 Mg PO DAILY Nitrofurantoin (Nitrofurantoin Macrocrystal) 100 Mg Capsule 100 Mg PO DAILY Vesicare (Solifenacin Succinate) 10 Mg Tablet 10 Mg PO 1600 Myrbetriq (Mirabegron) 50 Mg Tab.er.24h 50 Mg PO DAILY Mysoline (Primidone) 250 Mg Tablet 250 Mg PO TID Warfarin Sodium 4 Mg Tablet 2 Mg PO MOWE@1600 Warfarin Sodium 4 Mg Tablet 4 Mg PO SUTUTHFRSA@1600 Cyclobenzaprine HCl 10 Mg Tablet 10 Mg PO TID Metformin HCl 1,000 Mg Tablet 1,000 Mg PO BID Atorvastatin Calcium 80 Mg Tablet 80 Mg PO HS Prasugrel HCl 10 Mg Tablet 10 Mg PO DAILY Miralax (Polyethylene Glycol 3350) 17 Gm Powd.pack 17 Gm PO DAILY PRN Ferrous Sulfate 325 Mg Tablet 325 Mg PO 1800 Zyrtec (Cetirizine HCl) 10 Mg Tablet 10 Mg PO DAILY Venlafaxine HCl ER (Venlafaxine HCl) 75 Mg Cap.er.24h 75 Mg PO DAILY Fish Oil 1,000 mg Capsule ([place] 3 Polyunsat Fatty Acids) 1,000 Mg Cap 1,000 Mg PO TID Gabapentin 800 Mg Tablet 800 Mg PO QID Breo Ellipta 200-25 Mcg INH (Fluticasone/Vilanterol) 1 Each Blst.w.dev 1 Puff INH DAILY Lisinopril 20 Mg Tablet 20 Mg PO DAILY Imipramine HCl 50 Mg Tablet 50 Mg PO HS Vitamin D3 (Cholecalciferol (Vitamin D3)) 1,000 Unit Capsule 2,000 Unit PO 1200 Osteo Bi-Flex Caplet (Glucosamine/D3/Boswellia Nellie) 1 Each Tablet 1 Tab PO BID Multivitamins with Minerals (Multivitamin with Minerals) 1 Each Tablet 1 Tab PO DAILY Lantus (Insulin Glargine,Hum.rec.anlog) 100 Unit/1 Ml Vial 20 Unit SQ HS Calcium 500 + Vit D Caplet (Calcium Carbonate/Vitamin D3) 1 Each Tablet 1 Tab PO BID Novolog Flexpen (Insulin Aspart) 300 Units/3 Ml Solution 6 Units SQ TIDAC Refresh Lacri-Lube Ointment (Mineral Oil/Petrolatum,White) 3.5 Gm Oint...g. OU HS Artificial Tears Drops (Polyvinyl Alcohol/Povidone) 15 Ml Drops 2 Drops OU Q2H PRN Assessment/Pt DC Instructions See above Discharge Physical Examination Allergies: Coded Allergies: amylase (Verified Allergy, Unknown, 08/07/15) black cohosh (Verified Allergy, Unknown, 08/07/15) cellulase (Verified Allergy, Unknown, 08/07/15) glyburide (Verified Allergy, Unknown, 08/07/15) isosorbide (Verified Allergy, Unknown, 08/07/15) lipase (Verified Allergy, Unknown, 08/07/15) protease (Verified Allergy, Unknown, 08/07/15) Copy Copies To 1: MARTIN TRIANA MD Clinical Quality Measures AMI/AHF: ASA po Prior to arrival: No DVT/VTE Risk/Contraindication: Risk Factor Score Per Nursin RFS Level Per Nursing on Admit: 4+=Very High JAVIER WATSON MD May 21, 2019 12:57
--- NOTE | 2019-05-21 14:21 | Cardiology Progress Note ---
Cardiology SOAP Progress Note Subjective: No cardiac complaints. Objective: I&O/Vital Signs 05/21/19 05/21/19 05/21/19 05/21/19 04:00 04:00 07:00 07:34 Temp 36.0 Pulse 91 99 Resp 17 B/P (MAP) 93/45 (61) Pulse Ox 95 97 O2 Delivery Room Air Room Air 05/21/19 05/21/19 05/21/19 05/21/19 08:00 08:00 08:15 09:00 Pulse 94 Resp 14 B/P (MAP) 123/70 (87) Pulse Ox 96 100 100 96 O2 Delivery Room Air Room Air Room Air Room Air 05/21/19 05/21/19 05/21/19 05/21/19 12:00 12:00 12:00 12:26 Temp 35.8 Pulse 98 84 82 Resp 19 11 B/P (MAP) 161/90 (113) 133/81 (98) Pulse Ox 98 96 O2 Delivery Room Air Room Air Room Air 05/21/19 00:00 Intake Total 1675 ml Balance 1675 ml Weight (Pounds): 302 Weight (Ounces): 0.0 Weight (Calculated Kilograms): 136.803700 Constitutional: appears stated age, AAO x 3; No apparent distress; well- developed, well-nourished Respiratory: chest is bilaterally symmetric, lungs clear to auscultation Cardiovascular: regular rate-rhythm, S1 and S2 Gastrointestional: soft, audible bowel sounds; No spleenomegaly Extremities: normal range of motion, non-tender, normal inspection, pedal edema; No clubbing, No cyanosis, No significant edema Neurologic/Psychiatric: no motor/sensory deficits, alert, normal mood/affect, oriented x 3, power is 5/5 both on sides Skin: normal color; No rash, No ulcerations Results/Procedures: Labs Laboratory Tests 05/20/19 15:32: Glucometer 124H 05/20/19 20:31: Glucometer 104 05/21/19 06:40: Glucometer 72 05/21/19 11:14: Glucometer 115H 05/21/19 12:13: Prothrombin Time 20.7H, INR Comment 1.7H, Sodium Level 142, Potassium Level 4.1, Chloride Level 104, Carbon Dioxide Level 26, Anion Gap 12, Blood Urea Nitrogen 14, Creatinine 0.67, Estimat Glomerular Filtration Rate > 60, BUN/Creatinine Ratio 21, Glucose Level 66L, Calcium Level 9.4 Microbiology 05/18/19 MRSA Screen - Final, Complete MRSA not isolated A/P: Assessment/Dx: Paroxysmal atrial fibrillation, refractory to antiarrhythmic therapy, CAD, Diabetes, Obstructive sleep apnea, Morbid obesity. Plan: Paroxysmal atrial fibrillation, refractory to antiarrhythmic therapy with multaq. On Cardizem infusion she converted to sinus rhythm. Sotalol had to be discontinued previously due to side effects. Currently in sinus rhythm. Continue on Coumadin and monitor INR. Start amiodarone 200 mg twice a day for a week. Will follow-up in the office in 2 weeks. Will discuss atrial fibrillation ablation. Modest success with atrial fibrillation ablation in a patient with morbid obesity, obstructive sleep apnea on CPAP therapy. Palpitation, fatigue and loss of energy secondary to atrial fibrillation. Elevated CHADSVASC score of at least 5, CAD, diabetes, hypertension, age over 65, female gender. Therefore oral anti-coagulation is superior to aspirin for stroke prevention. CAD, recent drug-eluting stent in the mid LAD in 11/22/2018., Hypertension, Hyperlipidemia, Obstructive sleep apnea on CPAP therapy, Morbid obesity. Patient will follow her primary well blower Dr. Calvert on previously scheduled appointment. I will follow for cardiac electrophysiology for atrial fibrillation on previously scheduled appointment. Thank you for your consultation. Please call me if you have any questions. My Russell MD, FACP, FACC, FSCAI, FHRS, CCDS Interventional Cardiology Cardiac Electrophysiology Vascular Medicine and Endovascular Interventions Clinical Quality Measures AMI/AHF: ASA po Prior to arrival: Janiya Loyola MD May 21, 2019 14:21
[2019-05-21] MEDS ORDERED: warFARin 2 MG (COUMADIN) TAB PO SCH (16:00)
[2019-05-21] MEDS ORDERED: WARFARIN SODIUM 2 MG PO SCH (16:00)
== END 2019-05-21 14:24 | disposition home or self-care (01) | DRG 309 ==
LOC: EDUNIT# 14:25 → ER 14:26 → ICU 17:24
PROVIDERS: ADMIT Internal Medicine; ATTEND Family Medicine
DX: I48.0 Paroxysmal atrial fibrillation (principal); Z68.41 Body mass index [BMI] 40.0-44.9, adult; N39.0 Urinary tract infection, site not specified; J45.909 Unspecified asthma, uncomplicated; E78.00 Pure hypercholesterolemia, unspecified; I10 Essential (primary) hypertension; E11.40 Type 2 diabetes mellitus with diabetic neuropathy, unspecified; K21.9 Gastro-esophageal reflux disease without esophagitis; M19.90 Unspecified osteoarthritis, unspecified site; G89.29 Other chronic pain; M54.9 Dorsalgia, unspecified; H26.9 Unspecified cataract; F41.9 Anxiety disorder, unspecified; F32.9 Major depressive disorder, single episode, unspecified; B96.5 Pseudomonas (aeruginosa) (mallei) (pseudomallei) as the cause of diseases classified elsewhere; G47.33 Obstructive sleep apnea (adult) (pediatric); I25.10 Atherosclerotic heart disease of native coronary artery without angina pectoris; E66.01 Morbid (severe) obesity due to excess calories; Z79.82 Long term (current) use of aspirin; Z79.4 Long term (current) use of insulin; I25.2 Old myocardial infarction; Z95.5 Presence of coronary angioplasty implant and graft; Z87.891 Personal history of nicotine dependence
CPT/HCPCS: 36415; 71045; 80048; 80053; 80061; 82962; 83735; 83874; 83880; 84484; 85025; 85610; 85730; 87081; 93005; 93041; 94640; 94664; 96374; 96375; 96376

== ENCOUNTER 2019-05-29 19:57 | Inpatient (IN) | payer MEDICARE, MEDICAID ==
[~2019-05-29] VITALS: Ht 178 cm; Wt 126.3 kg
[~2019-05-29 19:57] MED LIST changes: +AMIO200T4 PO; +CEPH500C PO; +CIPR-225 PO; +DILT360C36 PO; +FAMO-119 PO; -METO-395 PO; +MTP100TCR PO; -OXYB10TA PO; +OXYB10TA2 PO; -OXYB15TA PO; +OXYB15TA18 PO; +OXYB5TAB13 PO; -OXYB5TAB9 PO; +OXYC1TAB12 PO; +SIMV20TA26 PO; -SIMV20TA3 PO
[2019-05-29 20:11] LABS: BASOPHILS % (AUTO) 0 % (0-10); EOSINOPHILS # (AUTO) 0.4 10^3/uL (0.0-0.3); EOSINOPHILS % (AUTO) 5 % (0-10); HEMATOCRIT 41 % (35-52); HEMOGLOBIN 13.6 G/DL (11.5-16.0); LYMPHOCYTES % (AUTO) 38 % (12-44); MEAN CORPUSCULAR HEMOGLOBIN 28 PG (25-34); MEAN CORPUSCULAR HGB CONC 33 G/DL (32-36); MEAN CORPUSCULAR VOLUME 85 FL (80-99); MEAN PLATELET VOLUME 10.1 FL (7.4-10.4); MONOCYTES # (AUTO) 0.7 X 10^3 (0.0-1.0); MONOCYTES % (AUTO) 9 % (0-12); NEUTROPHILS # (AUTO) 3.8 X 10^3 (1.8-7.8); NEUTROPHILS % (AUTO) 48 % (42-75); PLATELET COUNT 339 10^3/uL (130-400); RED CELL DISTRIBUTION WIDTH 16.2 % (10.0-14.5); WHITE BLOOD COUNT 7.9 10^3/uL (4.3-11.0)
[2019-05-29] MEDS ORDERED: ASPIRIN 81 MG CHEW (CHILDREN'S ASA) PO ONE (20:15)
[2019-05-29] MEDS ORDERED: DILTIAZEM IV FOR DRIP 125 MG in NS (IVPB) 100 ML IV SCH (20:15)
[2019-05-29 20:24] LABS: ALANINE AMINOTRANSFERASE 35 U/L (0-55); ALBUMIN 4.2 GM/DL (3.2-4.5); ALKALINE PHOSPHATASE 184 U/L (40-136); BILIRUBIN,TOTAL 0.1 MG/DL (0.1-1.0); BUN/CREATININE RATIO 19; CALCIUM 9.3 MG/DL (8.5-10.1); CARBON DIOXIDE 21 MMOL/L (21-32); CHLORIDE 98 MMOL/L (98-107); GFR ESTIMATED > 60; GLUCOSE 149 MG/DL (70-105); MAGNESIUM 1.8 MG/DL (1.6-2.4); POTASSIUM 4.4 MMOL/L (3.6-5.0); SODIUM 136 MMOL/L (135-145)
[2019-05-29 20:25] LABS: INR 2.6 (0.8-1.4); PROTHROMBIN TIME PATIENT 28.6 SEC (12.2-14.7)
--- NOTE | 2019-05-29 20:34 | Diagnostic Imaging Report ---
INDICATION: Chest pain COMPARISON: 05/18/2019 FINDINGS: Single frontal view of the chest demonstrates normal heart size and pulmonary vascularity. Evaluation of the lung nova suggests 2 cm nodular opacity within the lateral left lower lung field versus artifact related to nipple shadow. There is otherwise no focal consolidation, large effusion, nor pneumothorax. Osseous structures show no gross acute abnormalities. IMPRESSION: 1. No evidence of failure or focal infiltrate. 2. Soft tissue nodule versus nipple shadow overlying the lateral left lower lung field. Repeating chest radiograph with placement of nipple markers could be performed on a nonemergent basis. Dictated by: Dictated on workstation # [id number]
--- NOTE | 2019-05-29 20:42 | ED Chest Pain ---
General Chief Complaint: Chest Pain Stated Complaint: CHEST PAIN Nursing Triage Note: PATIENT STATES AT HOME THOUGHT SHE WAS HAVING HEARTBURN FROM EATING HER SALAD TOO FAST AND THEN FELT THOUGH SHE WENT INTO A-FIB. AFTER TAKING HER BLOOD PRESSURE FOUND HER HEART RATE TO BE BETWEEN 130N AND 140 SO SHE CALLED THE AMBULANCE. PATIENT ARRIVES VIA EMS TO ROOM 6, [address] IN RAC, NO FLUIDS AT THIS TIME. PATIENT IS ALERT AND ORIENTED X4, VERBAL AND GOOD HISTORIAN. WAS GIVEN CARIZEM ENROUTE AND HEART RATE NOW MID 80'S. HEART MONITOR ATTACHED AND APPEARS PATIENT IS IN AFIB. DR ROSA IN ROOM. Nursing Sepsis Screen: No Definite Risk Source: patient Exam Limitations: no limitations History of Present Illness Date Seen by Provider: May 29, 2019 Time Seen by Provider: 19:57 Initial Comments This 68-year-old woman with history of paroxysmal atrial fibrillation presents to the emergency room via EMS with chest pain and arrhythmia that started around 17:00. EMS notes atrial fibrillation with a heart rate in the 120s. Patient has a history of poor tolerance of atrial fibrillation. She was recently admitted and discharged on May 21. She was started on amiodarone at that time. She has had some blurry vision recently and it is thought amiodarone may be a contributing factor. She saw Dr. Russell this morning and she states he instructed her to stop amiodarone at this evening's dose. She has taken the morning dose and has taken her Cardizem CD 360 mg this morning. Patient reports her chest pain is around 6/10 at the time of presentation. Patient was also treated for a pseudomonal urinary tract infection during her last admission and states she is having recurrent symptoms after stopping Cipro. Patient also has history of coronary artery disease and last had a cardiac stent placed in November after having a non-ST elevation NC. She had severe mid LAD stenosis. Allergies and Home Medications Allergies Coded Allergies: amylase (Verified Allergy, Unknown, 08/07/15) black cohosh (Verified Allergy, Unknown, 08/07/15) cellulase (Verified Allergy, Unknown, 08/07/15) glyburide (Verified Allergy, Unknown, 08/07/15) isosorbide (Verified Allergy, Unknown, 08/07/15) lipase (Verified Allergy, Unknown, 08/07/15) protease (Verified Allergy, Unknown, 08/07/15) Home Medications Acetaminophen 500 Mg Tablet, 1,000 MG PO Q6H PRN for PAIN-MILD (1-4), (Reported) Amiodarone HCl 200 Mg Tablet, 200 MG PO BID Prescribed by: JAVIER WATSON on 05/21/19 1152 Aspirin 81 Mg Tablet.dr, 81 MG PO DAILY, (Reported) Atorvastatin Calcium 80 Mg Tablet, 80 MG PO HS, (Reported) Calcium Carbonate/Vitamin D3 1 Each Tablet, 1 TAB PO BID, (Reported) Cetirizine HCl 10 Mg Tablet, 10 MG PO DAILY, (Reported) Cholecalciferol (Vitamin D3) 1,000 Unit Capsule, 2,000 UNIT PO 1200, (Reported) Ciprofloxacin HCl 500 Mg Tablet, 500 MG PO BID Prescribed by: JAVIER WATSON on 05/21/19 1254 Cyclobenzaprine HCl 10 Mg Tablet, 10 MG PO TID, (Reported) Diltiazem HCl 360 Mg Cap.er.24h, 360 MG PO DAILY, (Reported) Famotidine 20 Mg Tablet, 20 MG PO DAILY PRN for HEARTBURN, (Reported) Ferrous Sulfate 325 Mg Tablet, 325 MG PO 1800, (Reported) Fluticasone/Vilanterol 1 Each Blst.w.dev, 1 PUFF INH DAILY, (Reported) Gabapentin 800 Mg Tablet, 800 MG PO QID, (Reported) Glucosamine/D3/Boswellia Nellie 1 Each Tablet, 1 TAB PO BID, (Reported) Hydroxyzine HCl 10 Mg Tablet, 10 MG PO TID, (Reported) Imipramine HCl 50 Mg Tablet, 50 MG PO HS, (Reported) Insulin Aspart 300 Units/3 Ml Solution, 6 UNITS SQ TIDAC, (Reported) Insulin Glargine,Hum.rec.anlog 100 Unit/1 Ml Vial, 20 UNIT SQ HS, (Reported) Lactobacillus Rhamnosus GG 1 Each Capsule, 1 CAP PO DAILY PRN for WHILE TAKING ANTIBIOTICS, (Reported) Lisinopril 20 Mg Tablet, 20 MG PO DAILY, (Reported) Metformin HCl 1,000 Mg Tablet, 1,000 MG PO BID, (Reported) Mineral Oil/Petrolatum,White 3.5 Gm Oint...g., OU HS, (Reported) Mirabegron 50 Mg Tab.er.24h, 50 MG PO DAILY, (Reported) Multivitamin with Minerals 1 Each Tablet, 1 TAB PO DAILY, (Reported) Nitrofurantoin Macrocrystal 100 Mg Capsule, 100 MG PO DAILY, (Reported) [place] 3 Polyunsat Fatty Acids 1,000 Mg Cap, 1,000 MG PO TID, (Reported) Oxycodone HCl/Acetaminophen 1 Each Tablet, 1 TAB PO EVERY 4-6 HOURS PRN for PAIN-MODERATE (5-7), (Reported) Polyethylene Glycol 3350 17 Gm Powd.pack, 17 GM PO DAILY PRN for CONSTIPATION- 2ND LINE, (Reported) Polyvinyl Alcohol/Povidone 15 Ml Drops, 2 DROPS OU Q2H PRN for DRY EYES, (Reported) Prasugrel HCl 10 Mg Tablet, 10 MG PO DAILY, (Reported) Primidone 250 Mg Tablet, 250 MG PO TID, (Reported) Solifenacin Succinate 10 Mg Tablet, 10 MG PO 1600, (Reported) Triamcinolone Acet 15 Gm Cr, TP BID PRN for RASH, (Reported) Venlafaxine HCl 75 Mg Cap.er.24h, 75 MG PO DAILY, (Reported) Warfarin Sodium 4 Mg Tablet, 4 MG PO SuTuThFrSa@1600, (Reported) Warfarin Sodium 4 Mg Tablet, 2 MG PO MoWe@1600, (Reported) Patient Home Medication List Home Medication List Reviewed: Yes Review of Systems Review of Systems Constitutional: no symptoms reported EENTM: No Symptoms Reported Respiratory: No Symptoms Reported Cardiovascular: See HPI Gastrointestinal: No Symptoms Reported Genitourinary: See HPI Musculoskeletal: no symptoms reported Skin: no symptoms reported Psychiatric/Neurological: No Symptoms Reported Endocrine: No Symptoms Reported Hematologic/Lymphatic: No Symptoms Reported Past Hqboxvc-Axsezv-Rpgfnv Hx Patient Social History Alcohol Use: Denies Use Recreational Drug Use: No Type Used: Cigarettes Former Smoker, Quit: May 18, 1980 2nd Hand Smoke Exposure: No Recent Foreign Travel: No Contact w/Someone Who Travel: No Recent Infectious Disease Expo: No Recent Hopitalizations: No Physical Abuse: No Sexual Abuse: No Mistreated: No Fear: No Immunizations Up To Date Tetanus Booster (TDap): Unknown PED Vaccines UTD: Yes Date of Pneumonia Vaccine: Feb 13, 2019 Date of Influenza Vaccine: Jan 14, 2019 Seasonal Allergies Seasonal Allergies: No Past Medical History Surgeries: Yes (STENTS PLACED NOVEMBER 2018) Cardiac, Coronary Stent, Eye Surgery, Orthopedic Respiratory: Yes Asthma, Sleep Apnea Currently Using CPAP: Yes Currently Using BIPAP: No Cardiac: Yes Atrial Fibrillation (paroxysmal), Chronic Edema/Swelling, Coronary Artery Disease, Deep Vein Thrombosis, Heart Attack, High Cholesterol, Hypertension Neurological: Yes Neuropathy 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 Disorders: Yes Female 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 Disorders: 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 Sexually Transmitted Disease: No HIV/AIDS: No Genitourinary: Yes UTI-Chronic Gastrointestinal: Yes Gastroesophageal Reflux, Chronic Constipation Musculoskeletal: Yes Degenerate Disk Disease, Arthritis, Chronic Back Pain Endocrine: Yes (MORBID OBESITY) Diabetes, Insulin dep HEENT: Yes Cataract Loss of Vision: Bilateral Hearing Impairment: Denies Cancer: No Uterine Psychosocial: Yes Anxiety, Depression Integumentary: No Blood Disorders: No Adverse Reaction/Blood Tranf: No Family Medical History Cardiovascular disease 19 FATHER 19 MOTHER Colon cancer 19 FATHER 19 MOTHER Diabetes mellitus 19 MOTHER G8 BROTHER G8 SISTER Myocardial infarction 19 FATHER No Pertinent Family Hx Physical Exam Vital Signs Vital Signs - First Documented 05/29/19 19:57 Temp 36.7 Pulse 85 Resp 20 B/P (MAP) 143/92 (109) Pulse Ox 100 O2 Delivery Room Air Capillary Refill : Less Than 3 Seconds Height, Weight, BMI Height: 5'10.50" Weight: 302lbs. 0.0oz. 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 II- XII Norm as Tested, Other (anxious) Skin: Normal Color, Warm/Dry Progress/Results/Core Measures Results/Orders Lab Results Laboratory Tests Test 05/29/19 19:59 05/29/19 20:46 Range/Units White Blood Count 7.9 4.3-11.0 10^3/uL Red Blood Count 4.82 4.35-5.85 10^6/uL Hemoglobin 13.6 11.5-16.0 G/DL Hematocrit 41 35-52 % Mean Corpuscular Volume 85 80-99 FL Mean Corpuscular Hemoglobin 28 25-34 PG Mean Corpuscular Hemoglobin Concent 33 32-36 G/DL Red Cell Distribution Width 16.2 H 10.0-14.5 % Platelet Count 339 130-400 10^3/uL Mean Platelet Volume 10.1 7.4-10.4 FL Neutrophils (%) (Auto) 48 42-75 % Lymphocytes (%) (Auto) 38 12-44 % Monocytes (%) (Auto) 9 0-12 % Eosinophils (%) (Auto) 5 0-10 % Basophils (%) (Auto) 0 0-10 % Neutrophils # (Auto) 3.8 1.8-7.8 X 10^3 Lymphocytes # (Auto) 3.0 1.0-4.0 X 10^3 Monocytes # (Auto) 0.7 0.0-1.0 X 10^3 Eosinophils # (Auto) 0.4 H 0.0-0.3 10^3/uL Basophils # (Auto) 0.0 0.0-0.1 10^3/uL Prothrombin Time 28.6 H 12.2-14.7 SEC INR Comment 2.6 H 0.8-1.4 Activated Partial Thromboplast Time 44 H 24-35 SEC Sodium Level 136 135-145 MMOL/L Potassium Level 4.4 3.6-5.0 MMOL/L Chloride Level 98 98-107 MMOL/L Carbon Dioxide Level 21 21-32 MMOL/L Anion Gap 17 H 5-14 MMOL/L Blood Urea Nitrogen 15 7-18 MG/DL Creatinine 0.80 0.60-1.30 MG/DL Estimat Glomerular Filtration Rate > 60 BUN/Creatinine Ratio 19 Glucose Level 149 H 70-105 MG/DL Calcium Level 9.3 8.5-10.1 MG/DL Corrected Calcium 9.1 8.5-10.1 MG/DL Magnesium Level 1.8 1.6-2.4 MG/DL Total Bilirubin 0.1 0.1-1.0 MG/DL Aspartate Amino Transf (AST/SGOT) 26 5-34 U/L Alanine Aminotransferase (ALT/SGPT) 35 0-55 U/L Alkaline Phosphatase 184 H 40-136 U/L Myoglobin 18.9 10.0-92.0 NG/ML Troponin I < 0.028 <0.028 NG/ML Total Protein 8.0 6.4-8.2 GM/DL Albumin 4.2 3.2-4.5 GM/DL Urine Color YELLOW Urine Clarity CLEAR Urine pH 6.5 5-9 Urine Specific [place] <=1.005 1.016-1.022 Urine Protein NEGATIVE NEGATIVE Urine Glucose (UA) NEGATIVE NEGATIVE Urine Ketones NEGATIVE NEGATIVE Urine Nitrite NEGATIVE NEGATIVE Urine Bilirubin NEGATIVE NEGATIVE Urine Urobilinogen 0.2 < = 1.0 MG/DL Urine Leukocyte Esterase 3+ H NEGATIVE Urine RBC (Auto) TRACE-I NEGATIVE Urine RBC NONE /HPF Urine WBC 10-25 H /HPF Urine Crystals NONE /LPF Urine Bacteria TRACE /HPF Urine Casts NONE /LPF Urine Mucus SMALL H /LPF Urine Culture Indicated YES My Orders Orders - SAMANTHA RUSSO MD Ekg Tracing (05/29/19 19:58) Chest 1 View, Ap/Pa Only (05/29/19 19:58) Cbc With Automated Diff (05/29/19 19:58) Magnesium (05/29/19 19:58) Comprehensive Metabolic Panel (05/29/19 19:58) Myoglobin Serum (05/29/19 19:58) Protime With Inr (05/29/19 19:58) Partial Thromboplastin Time (05/29/19 19:58) O2 (05/29/19 19:58) Monitor-Rhythm Ecg Trace Only (05/29/19 19:58) Lipid Panel (05/30/19 06:00) Ed Iv/Invasive Line Start (05/29/19 19:58) Troponin I (05/29/19 19:58) Ns (Ivpb) (Sodium C... W/Diltiazem Iv Fo (05/29/19 20:15) Aspirin Chewable Tablet (Baby Aspirin Ch (05/29/19 20:15) Ua Culture If Indicated (05/29/19 20:36) Troponin I (05/29/19 22:00) Urine Culture (05/29/19 20:46) Medications Given in ED Current Medications Medications Dose Ordered Sig/Ashley Route Start Time Stop Time Status Last Admin Dose Admin Aspirin 243 mg ONCE ONCE PO 05/29/19 20:15 05/29/19 20:16 DC 05/29/19 20:20 243 MG Vital Signs/I&O 05/29/19 05/29/19 05/29/19 19:57 19:57 20:19 Temp 36.7 Pulse 85 93 Resp 20 14 B/P (MAP) 143/92 (109) 135/99 Pulse Ox 100 99 O2 Delivery Room Air Blood Pressure Mean: 111 Progress Progress Note : Progress Note Patient was started on a Cardizem drip. She has converted with Cardizem drip in the past. Rate was controlled in the 80s to 110s. Chest pain gradually decreased over the course of her ER stay. At the time of admission she reported pain as 3/10. Case was discussed with Dr. Calvert who recommended admission with continued Cardizem drip. Patient seems to have failed amiodarone. Cipro was started again for treatment of urinary tract infection. Case was also discussed with Dr. Rosales. Initial ECG Impression Date: May 29, 2019 Initial ECG Impression Time: 20:00 Initial ECG Rate: 100 Initial ECG Rhythm: A Fib/Flutter Initial ECG Impression: Atrial Fibrillation Comment Rate controlled atrial fibrillation with no ST elevation or depression. Compared with prior and similar. Diagnostic Imaging Diagonstic Imaging: Xray Plain Films/CT/US/NM/MRI: chest Comments Chest x-ray viewed by me and report reviewed. See report below: NAME: ALFREDO KAUFMAN [facility] REC#: [id number] PT STATUS: REG ER : 1950 PHYSICIAN: SAMANTHA RUSSO MD ADMIT DATE: 05/29/19/ER Draft Date of Exam:05/29/19 CHEST 1 VIEW, AP/PA ONLY INDICATION: Chest pain COMPARISON: 05/18/2019 FINDINGS: Single frontal view of the chest demonstrates normal heart size and pulmonary vascularity. Evaluation of the lung nova suggests 2 cm nodular opacity within the lateral left lower lung field versus artifact related to nipple shadow. There is otherwise no focal consolidation, large effusion, nor pneumothorax. Osseous structures show no gross acute abnormalities. IMPRESSION: 1. No evidence of failure or focal infiltrate. 2. Soft tissue nodule versus nipple shadow overlying the lateral left lower lung field. Repeating chest radiograph with placement of nipple markers could be performed on a nonemergent basis. Dictated on workstation # [id number] Dict: 05/29/192031 Trans: 05/29/192033 [facility] [phone] Interpreted by: DANIS CARRILLO MD Departure Communication (Admissions) Time/Spoke to Admitting Phy: 21:35 Dr. Rosales Time/Spoke to Consulting Phy: 21:30 Dr. Calvert Impression Primary Impression: Atrial fibrillation Qualified Codes: I48.91 - Unspecified atrial fibrillation Additional Impressions: Chest pain Qualified Codes: R07.9 - Chest pain, unspecified Urinary tract infection Qualified Codes: N39.0 - Urinary tract infection, site not specified Disposition: ADMITTED INPATIENT Condition: Improved Admissions Decision to Admit Reason: Admit from ER (General) Decision to Admit/Date: May 29, 2019 Time/Decision to Admit Time: 21:30 Departure-Patient Inst. Referrals: DELIA TRIANA MD (PCP/Family) Primary Care Physician SAMANTHA RUSSO MD May 29, 2019 20:42
[2019-05-29 20:52] LABS: BILIRUBIN,URINE NEGATIVE (NEGATIVE); CLARITY,URINE CLEAR; COLOR,URINE YELLOW; GLUCOSE, URINE (UA) NEGATIVE (NEGATIVE); KETONES,URINE NEGATIVE (NEGATIVE); LEUKOCYTE ESTERASE ,URINE 3+ (NEGATIVE); NITRITE,URINE NEGATIVE (NEGATIVE); PH,URINE 6.5 (5-9); PROTEIN,URINE NEGATIVE (NEGATIVE)
[2019-05-29 21:06] LABS: BACTERIA,URINE TRACE /HPF
[2019-05-29] MEDS ORDERED: CIPROFLOXACIN 500 MG (CIPRO) TABLET PO ONE (21:45)
[2019-05-29 23:00] VITALS: BP 126/80
[2019-05-29 23:15] VITALS: BP 117/84
[2019-05-29 23:30] VITALS: BP 122/77
[2019-05-29 23:45] VITALS: BP 125/78
[2019-05-30] VITALS (23 sets, daily range): BP systolic 111–215; BP diastolic 65–116
[2019-05-30] MEDS: oxyCODONE/APAP 10/325MG (PERCOCET 10) TABLET PO SCH ×3 (00:57→12:10)
[2019-05-30] MEDS: DILTIAZEM 125 MG/NS 100 ML IV SCH ×4 (01:01→07:45)
[2019-05-30 03:41] LABS: BASOPHILS % (AUTO) 0 % (0-10); EOSINOPHILS # (AUTO) 0.4 10^3/uL (0.0-0.3); EOSINOPHILS % (AUTO) 5 % (0-10); HEMATOCRIT 38 % (35-52); HEMOGLOBIN 12.2 G/DL (11.5-16.0); LYMPHOCYTES # (AUTO) 3.2 X 10^3 (1.0-4.0); LYMPHOCYTES % (AUTO) 41 % (12-44); MEAN CORPUSCULAR HEMOGLOBIN 28 PG (25-34); MEAN CORPUSCULAR HGB CONC 33 G/DL (32-36); MEAN CORPUSCULAR VOLUME 85 FL (80-99); MEAN PLATELET VOLUME 10.5 FL (7.4-10.4); MONOCYTES # (AUTO) 0.7 X 10^3 (0.0-1.0); MONOCYTES % (AUTO) 9 % (0-12); NEUTROPHILS # (AUTO) 3.6 X 10^3 (1.8-7.8); NEUTROPHILS % (AUTO) 46 % (42-75); PLATELET COUNT 283 10^3/uL (130-400)
[2019-05-30 03:58] LABS: INR 2.8 (0.8-1.4); PROTHROMBIN TIME PATIENT 30.8 SEC (12.2-14.7)
[2019-05-30 03:59] LABS: BUN/CREATININE RATIO 22; CALCIUM 9.1 MG/DL (8.5-10.1); CARBON DIOXIDE 24 MMOL/L (21-32); CHLORIDE 102 MMOL/L (98-107); CHOLESTEROL 115 MG/DL (< 200); CREATININE SERUM 0.73 MG/DL (0.60-1.30); GFR ESTIMATED > 60; GLUCOSE 115 MG/DL (70-105); HDL CHOLESTEROL 57 MG/DL (40-60); MAGNESIUM 1.8 MG/DL (1.6-2.4); PHOSPHORUS 4.2 MG/DL (2.3-4.7); POTASSIUM 4.3 MMOL/L (3.6-5.0); SODIUM 139 MMOL/L (135-145); TRIGLYCERIDES 37 MG/DL (<150); VLDL CHOLESTEROL 7 MG/DL (5-40)
--- NOTE | 2019-05-30 04:45 | Pulmonary Consultation ---
History of Present Illness History of Present Illness Date of Admission Allergies and Home Medications Allergies Coded Allergies: amylase (Verified Allergy, Unknown, 08/07/15) black cohosh (Verified Allergy, Unknown, 08/07/15) cellulase (Verified Allergy, Unknown, 08/07/15) glyburide (Verified Allergy, Unknown, 08/07/15) isosorbide (Verified Allergy, Unknown, 08/07/15) lipase (Verified Allergy, Unknown, 08/07/15) protease (Verified Allergy, Unknown, 08/07/15) Home Medications Acetaminophen 500 Mg Tablet, 1,000 MG PO Q6H PRN for PAIN-MILD (1-4), (Reported) Amiodarone HCl 200 Mg Tablet, 200 MG PO BID Prescribed by: JAVIER WATSON on 05/21/19 1152 Aspirin 81 Mg Tablet.dr, 81 MG PO DAILY, (Reported) Atorvastatin Calcium 80 Mg Tablet, 80 MG PO HS, (Reported) Calcium Carbonate/Vitamin D3 1 Each Tablet, 1 TAB PO BID, (Reported) Cetirizine HCl 10 Mg Tablet, 10 MG PO DAILY, (Reported) Cholecalciferol (Vitamin D3) 1,000 Unit Capsule, 2,000 UNIT PO 1200, (Reported) Ciprofloxacin HCl 500 Mg Tablet, 500 MG PO BID Prescribed by: JAVIER WATSON on 05/21/19 1254 Cyclobenzaprine HCl 10 Mg Tablet, 10 MG PO TID, (Reported) Diltiazem HCl 360 Mg Cap.er.24h, 360 MG PO DAILY, (Reported) Famotidine 20 Mg Tablet, 20 MG PO DAILY PRN for HEARTBURN, (Reported) Ferrous Sulfate 325 Mg Tablet, 325 MG PO 1800, (Reported) Fluticasone/Vilanterol 1 Each Blst.w.dev, 1 PUFF INH DAILY, (Reported) Gabapentin 800 Mg Tablet, 800 MG PO QID, (Reported) Glucosamine/D3/Boswellia Nellie 1 Each Tablet, 1 TAB PO BID, (Reported) Hydroxyzine HCl 10 Mg Tablet, 10 MG PO TID, (Reported) Imipramine HCl 50 Mg Tablet, 50 MG PO HS, (Reported) Insulin Aspart 300 Units/3 Ml Solution, 6 UNITS SQ TIDAC, (Reported) Insulin Glargine,Hum.rec.anlog 100 Unit/1 Ml Vial, 20 UNIT SQ HS, (Reported) Lactobacillus Rhamnosus GG 1 Each Capsule, 1 CAP PO DAILY PRN for WHILE TAKING ANTIBIOTICS, (Reported) Lisinopril 20 Mg Tablet, 20 MG PO DAILY, (Reported) Metformin HCl 1,000 Mg Tablet, 1,000 MG PO BID, (Reported) Mineral Oil/Petrolatum,White 3.5 Gm Oint...g., OU HS, (Reported) Mirabegron 50 Mg Tab.er.24h, 50 MG PO DAILY, (Reported) Multivitamin with Minerals 1 Each Tablet, 1 TAB PO DAILY, (Reported) Nitrofurantoin Macrocrystal 100 Mg Capsule, 100 MG PO DAILY, (Reported) [place] 3 Polyunsat Fatty Acids 1,000 Mg Cap, 1,000 MG PO TID, (Reported) Oxycodone HCl/Acetaminophen 1 Each Tablet, 1 TAB PO EVERY 4-6 HOURS PRN for PAIN-MODERATE (5-7), (Reported) Polyethylene Glycol 3350 17 Gm Powd.pack, 17 GM PO DAILY PRN for CONSTIPATION- 2ND LINE, (Reported) Polyvinyl Alcohol/Povidone 15 Ml Drops, 2 DROPS OU Q2H PRN for DRY EYES, (Reported) Prasugrel HCl 10 Mg Tablet, 10 MG PO DAILY, (Reported) Primidone 250 Mg Tablet, 250 MG PO TID, (Reported) Solifenacin Succinate 10 Mg Tablet, 10 MG PO 1600, (Reported) Triamcinolone Acet 15 Gm Cr, TP BID PRN for RASH, (Reported) Venlafaxine HCl 75 Mg Cap.er.24h, 75 MG PO DAILY, (Reported) Warfarin Sodium 4 Mg Tablet, 4 MG PO SuTuThFrSa@1600, (Reported) Warfarin Sodium 4 Mg Tablet, 2 MG PO MoWe@1600, (Reported) Past Zlaiyxc-Blnkeo-Dqblwu Hx Patient Social History Alcohol Use: Denies Use Recreational Drug Use: No Type Used: Cigarettes Former Smoker, Quit: May 18, 1980 2nd Hand Smoke Exposure: No Recent Foreign Travel: No Contact w/Someone Who Travel: No Recent Infectious Disease Expo: No Recent Hopitalizations: No Physical Abuse: No Sexual Abuse: No Mistreated: No Fear: No Immunizations Up To Date Tetanus Booster (TDap): Unknown PED Vaccines UTD: Yes Date of Pneumonia Vaccine: Feb 13, 2019 Date of Influenza Vaccine: Jan 14, 2019 Seasonal Allergies Seasonal Allergies: No Past Medical History Surgeries: Yes (STENTS PLACED NOVEMBER 2018) Cardiac, Coronary Stent, Eye Surgery, Orthopedic Respiratory: Yes Asthma, Sleep Apnea Currently Using CPAP: Yes Currently Using BIPAP: No Cardiac: Yes Atrial Fibrillation (paroxysmal), Chronic Edema/Swelling, Coronary Artery Disease, Deep Vein Thrombosis, Heart Attack, High Cholesterol, Hypertension Neurological: Yes Neuropathy 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 Disorders: Yes Female 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 Disorders: 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 Sexually Transmitted Disease: No HIV/AIDS: No Genitourinary: Yes UTI-Chronic Gastrointestinal: Yes Gastroesophageal Reflux, Chronic Constipation Musculoskeletal: Yes Degenerate Disk Disease, Arthritis, Chronic Back Pain Endocrine: Yes (MORBID OBESITY) Diabetes, Insulin dep HEENT: Yes Cataract Loss of Vision: Bilateral Hearing Impairment: Denies Cancer: No Uterine Psychosocial: Yes Anxiety, Depression Integumentary: No Blood Disorders: No Adverse Reaction/Blood Tranf: No Family Medical History Cardiovascular disease 19 FATHER 19 MOTHER Colon cancer 19 FATHER 19 MOTHER Diabetes mellitus 19 MOTHER G8 BROTHER G8 SISTER Myocardial infarction 19 FATHER No Pertinent Family Hx Sepsis Event Evaluation Height, Weight, BMI Height: 5'10.50" Weight: 302lbs. 0.0oz. 136.841736ah; 40.20 BMI Method:Stated Exam Exam Vital Signs Date Time Temp Pulse Resp B/P (MAP) Pulse Ox O2 Delivery O2 Flow Rate FiO2 05/30/19 04:00 97 Room Air 05/30/19 03:00 96 16 113/70 (84) 95 Room Air 05/30/19 02:05 96 05/30/19 02:00 106 21 118/76 (90) 92 Room Air 05/30/19 00:30 108 15 114/67 (83) 96 Room Air 05/30/19 00:00 83 18 111/65 (80) 94 Room Air 05/29/19 23:45 92 24 125/78 (94) 97 Room Air 05/29/19 23:30 100 17 122/77 (92) 95 Room Air 05/29/19 23:15 100 20 117/84 (95) 95 Room Air 05/29/19 23:00 89 22 126/80 (95) 93 Room Air 05/29/19 22:42 94 05/29/19 22:42 94 05/29/19 22:21 36.7 101 16 121/76 (111) 99 Room Air 05/29/19 20:19 93 14 135/99 99 05/29/19 19:57 Room Air 05/29/19 19:57 36.7 85 20 143/92 (109) 100 I & O 05/30/19 07:00 Intake Total 200 ml Output Total 400 ml Balance -200 ml Height & Weight Height: 5'10.50" Weight: 302lbs. 0.0oz. 136.873199lk; 40.20 BMI Method:Stated General Appearance: WD/WN, Mild Distress HEENT: PERRL/EOMI, Normal ENT Inspection Neck: Normal Inspection Respiratory: Lungs Clear, Normal Breath Sounds, No Accessory Muscle Use, No Respiratory Distress Cardiovascular: No Murmur, Normal Peripheral Pulses, Irregularly Irregular, Other (chronic lower extremity edema stated is unchanged) Capillary Refill: Less Than 3 Seconds Extremity: Non Tender, Pedal Edema, Swelling Neurologic/Psychiatric: Alert, Oriented x3, No Motor/Sensory Deficits, director of psychology II- XII Norm as Tested, Other (anxious) Skin: Normal Color, Warm/Dry Results Lab Laboratory Tests 05/29/19 19:59 05/30/19 02:53 Assessment/Plan Assessment/Plan Afib RVR -cardizem gtt -Warfarin UTI - TARAH Kimbrough DO May 30, 2019 04:45
[2019-05-30] MEDS: KCL 20 MEQ TAB (K-DUR) PO SCH (05:32)
[2019-05-30] MEDS ORDERED: POTASSIUM CL 10MEQ/50ML IVPB 50 ML IV SCH (06:00)
[2019-05-30] MEDS ORDERED: MAGNESIUM 1 GM/100 ML IVPB 100 ML IV SCH (06:00)
[2019-05-30] MEDS: inSUlin ASPART (NovoLOG) 1 UNIT/0.01 ML (CHARGE PER UNIT) SC SCH ×3 (07:20→16:59)
--- NOTE | 2019-05-30 07:34 | Diagnostic Imaging Report ---
INDICATION: Atrial fibrillation. Portable upright AP view of chest is obtained. Comparison is made to study of 05/29/2019 FINDINGS: Study is limited due to suboptimal inspiration. Overall heart size is within normal limits. There is increased density in the perihilar regions, greater on the left which may be due to atelectasis or developing edema. Nodular focus in the lateral left lung is again noted. IMPRESSION: Increasing perihilar density which may be due to edema or pneumonitis. Radiographic follow-up would be useful. There is a persistent nodule seen laterally in the left lung and consideration could be given to follow-up radiography or CT imaging when appropriate. Dictated by: Dictated on workstation # [id number]
[2019-05-30] MEDS ORDERED: PRIMIDONE 250 MG TABLET PO SCH ×2 (09:00→09:48)
[2019-05-30] MEDS ORDERED: ASPIRIN 81 MG CHEW (CHILDREN'S ASA) PO SCH (09:00)
[2019-05-30] MEDS ORDERED: CIPROFLOXACIN 500 MG (CIPRO) TABLET PO SCH (09:00)
[2019-05-30] MEDS: LORATADINE (CLARITIN) 10 MG TAB PO SCH (09:38)
[2019-05-30] MEDS: PRASUGREL 10 MG (EFFIENT) TABLET PO SCH (09:38)
[2019-05-30] MEDS ORDERED: DOFETILIDE 250 MCG CAP (TIKOSYN) NON-FORMLUARY PO SCH (10:00)
--- NOTE | 2019-05-30 10:17 | NUR ---
TIKOSYN NEW START PATIENT REVIEW: LABS: Potassium 4.3 Magnesium 1.8 SCr 0.73 (estimated CrCl > 60) QTc 442 (per autocalculation) Drug interactions: amiodarone stopped 05/29 (Started on 05/21/2019-05/29/2019), ciprofloxacin (stopped today) A/P: discussed drig interactions and QTc with Dr Russell (and also Dr Rosales to change ciprofloxacin to cefepime IV), received orders to replace magnesium (2grams), and to start tikosyn 250mg po bid. We used the orderset to order the medication and also ECG 2 hours after each dose. I also provided education the Nikolay RN on the need to monitor QTc and contact provider if QTc increases. will also provide medication education to the Eneida (patient) about tikosyn.
--- NOTE | 2019-05-30 10:18 | NUR ---
PATIENT WAS RECENTLY DISCHARGED ON , AT THAT TIME SHE WAS STARTED ON AMIODARONE AND CIPRO. SHE STATES SHE FINISHED THE CIPRO, I REMOVED IT FROM THE MED REC. SHE STATES YESTERDAY 05-29-19 SHE HAD AN APPOINTMENT WITH DR. CORDOVA AND WAS STILL HAVING BLURRED VISION, HE TOLD HER TO STOP HER AMIODARONE. NOTHING WAS PRESCRIBED. SHE STATES SHE DID NOT HAVE A CHANCE TO STOP HER AMIODARONE (SHE DID NOT MISS A DOSE) PRIOR TO BE RE ADMITTED. I LEFT IT ON THE MED REC FOR NOW TO BE ADDRESSED ON HER DISCHARGE PAPERWORK. I REVIEWED ALL MEDICATIONS THEY WERE REPORTED PREVIOUSLY WITH THE EXCEPTION OF REMOVING THE CIPRO THAT WAS COMPLETED.
[2019-05-30] MEDS: MAGNESIUM 1 GM/D5W 100 ML IVPB IV SCH ×2 (10:41→12:09)
[2019-05-30] MEDS: DOFETILIDE 125 MCG (TIKOSYN) CAPSULE PO SCH ×2 (10:41→22:04)
--- NOTE | 2019-05-30 11:11 | Consultation-Cardiology ---
HPI-Cardiology Cardiology Consultation Date of Consultation 05/30/19 Date of Admission Time Seen by Provider: 11:05 Indication: Chest pain HPI 68-year-old lady with history of paroxysmal atrial fibrillation, recurrent chest pain, has failed multiple medication as described below, started back in atrial fibrillation last night while she was still on amiodarone, started to have chest pain, called EMS and brought to the emergency room, she was started on Cardizem drip, heart rate got better, this morning she converted to sinus rhythm. Denied any active chest pain. Was concerned about the side effect of amiodarone especially with blurred vision that she had after taking the first pill amiodarone but she was still on the medication. Home Medications & Allergies Allergies: Coded Allergies: amylase (Verified Allergy, Unknown, 08/07/15) black cohosh (Verified Allergy, Unknown, 08/07/15) cellulase (Verified Allergy, Unknown, 08/07/15) glyburide (Verified Allergy, Unknown, 08/07/15) isosorbide (Verified Allergy, Unknown, 08/07/15) lipase (Verified Allergy, Unknown, 08/07/15) protease (Verified Allergy, Unknown, 08/07/15) Home Medication List Reviewed: Yes CZJ-Pteeeu-Bluito Hx Patient Social History Marital Status: single Alcohol Use: Denies Use Recreational Drug Use: No Former smoker/When Quit: Aug 07, 1980 Type Used: Cigarettes 2nd Hand Smoke Exposure: No Recent Foreign Travel: No Recent Infectious Disease Expo: No Recent Hopitalizations: No Immunizations Up To Date Tetanus Booster (TDap): Unknown Date of Pneumonia Vaccine: Feb 13, 2019 Date of Influenza Vaccine: Jan 14, 2019 Past Medical History Discussed below Family Medical History Significant Family History: No Pertinent Family Hx Family History: Cardiovascular disease 19 FATHER 19 MOTHER Colon cancer 19 FATHER 19 MOTHER Diabetes mellitus 19 MOTHER G8 BROTHER G8 SISTER Myocardial infarction 19 FATHER Review of Systems-General Review of Systems Constitutional: no symptoms reported, malaise EENTM: see HPI, no symptoms reported Respiratory: see HPI; No cough; dyspnea on exertion; No hemoptysis, No orthopnea, No phlegm, No short of breath, No stridor, No wheezing, No other Cardiovascular: see HPI, chest pain; No edema, No Hx of Intervention; palpitations; No syncope, No vascular heart diseas, No other Gastrointestinal: no symptoms reported, see HPI Genitourinary: no symptoms reported, see HPI Musculoskeletal: no symptoms reported, see HPI Skin: no symptoms reported, see HPI Psychiatric/Neurological: No Symptoms Reported, See HPI Reviewed Test Results Reviewed Test Results Lab Laboratory Tests Test 05/29/19 19:59 05/29/19 20:46 05/29/19 22:10 05/29/19 23:02 Range/Units White Blood Count 7.9 4.3-11.0 10^3/uL Red Blood Count 4.82 4.35-5.85 10^6/uL Hemoglobin 13.6 11.5-16.0 G/DL Hematocrit 41 35-52 % Mean Corpuscular Volume 85 80-99 FL Mean Corpuscular Hemoglobin 28 25-34 PG Mean Corpuscular Hemoglobin Concent 33 32-36 G/DL Red Cell Distribution Width 16.2 H 10.0-14.5 % Platelet Count 339 130-400 10^3/uL Mean Platelet Volume 10.1 7.4-10.4 FL Neutrophils (%) (Auto) 48 42-75 % Lymphocytes (%) (Auto) 38 12-44 % Monocytes (%) (Auto) 9 0-12 % Eosinophils (%) (Auto) 5 0-10 % Basophils (%) (Auto) 0 0-10 % Neutrophils # (Auto) 3.8 1.8-7.8 X 10^3 Lymphocytes # (Auto) 3.0 1.0-4.0 X 10^3 Monocytes # (Auto) 0.7 0.0-1.0 X 10^3 Eosinophils # (Auto) 0.4 H 0.0-0.3 10^3/uL Basophils # (Auto) 0.0 0.0-0.1 10^3/uL Prothrombin Time 28.6 H 12.2-14.7 SEC INR Comment 2.6 H 0.8-1.4 Activated Partial Thromboplast Time 44 H 24-35 SEC Sodium Level 136 135-145 MMOL/L Potassium Level 4.4 3.6-5.0 MMOL/L Chloride Level 98 98-107 MMOL/L Carbon Dioxide Level 21 21-32 MMOL/L Anion Gap 17 H 5-14 MMOL/L Blood Urea Nitrogen 15 7-18 MG/DL Creatinine 0.80 0.60-1.30 MG/DL Estimat Glomerular Filtration Rate > 60 BUN/Creatinine Ratio 19 Glucose Level 149 H 70-105 MG/DL Calcium Level 9.3 8.5-10.1 MG/DL Corrected Calcium 9.1 8.5-10.1 MG/DL Magnesium Level 1.8 1.6-2.4 MG/DL Total Bilirubin 0.1 0.1-1.0 MG/DL Aspartate Amino Transf (AST/SGOT) 26 5-34 U/L Alanine Aminotransferase (ALT/SGPT) 35 0-55 U/L Alkaline Phosphatase 184 H 40-136 U/L Myoglobin 18.9 10.0-92.0 NG/ML Troponin I < 0.028 < 0.028 <0.028 NG/ML Total Protein 8.0 6.4-8.2 GM/DL Albumin 4.2 3.2-4.5 GM/DL Urine Color YELLOW Urine Clarity CLEAR Urine pH 6.5 5-9 Urine Specific [place] <=1.005 1.016-1.022 Urine Protein NEGATIVE NEGATIVE Urine Glucose (UA) NEGATIVE NEGATIVE Urine Ketones NEGATIVE NEGATIVE Urine Nitrite NEGATIVE NEGATIVE Urine Bilirubin NEGATIVE NEGATIVE Urine Urobilinogen 0.2 < = 1.0 MG/DL Urine Leukocyte Esterase 3+ H NEGATIVE Urine RBC (Auto) TRACE-I NEGATIVE Urine RBC NONE /HPF Urine WBC 10-25 H /HPF Urine Crystals NONE /LPF Urine Bacteria TRACE /HPF Urine Casts NONE /LPF Urine Mucus SMALL H /LPF Urine Culture Indicated YES Glucometer 74 70-110 MG/DL Test 05/30/19 02:53 Range/Units White Blood Count 8.0 4.3-11.0 10^3/uL Red Blood Count 4.39 4.35-5.85 10^6/uL Hemoglobin 12.2 11.5-16.0 G/DL Hematocrit 38 35-52 % Mean Corpuscular Volume 85 80-99 FL Mean Corpuscular Hemoglobin 28 25-34 PG Mean Corpuscular Hemoglobin Concent 33 32-36 G/DL Red Cell Distribution Width 16.0 H 10.0-14.5 % Platelet Count 283 130-400 10^3/uL Mean Platelet Volume 10.5 H 7.4-10.4 FL Neutrophils (%) (Auto) 46 42-75 % Lymphocytes (%) (Auto) 41 12-44 % Monocytes (%) (Auto) 9 0-12 % Eosinophils (%) (Auto) 5 0-10 % Basophils (%) (Auto) 0 0-10 % Neutrophils # (Auto) 3.6 1.8-7.8 X 10^3 Lymphocytes # (Auto) 3.2 1.0-4.0 X 10^3 Monocytes # (Auto) 0.7 0.0-1.0 X 10^3 Eosinophils # (Auto) 0.4 H 0.0-0.3 10^3/uL Basophils # (Auto) 0.0 0.0-0.1 10^3/uL Prothrombin Time 30.8 H 12.2-14.7 SEC INR Comment 2.8 H 0.8-1.4 Sodium Level 139 135-145 MMOL/L Potassium Level 4.3 3.6-5.0 MMOL/L Chloride Level 102 98-107 MMOL/L Carbon Dioxide Level 24 21-32 MMOL/L Anion Gap 13 5-14 MMOL/L Blood Urea Nitrogen 16 7-18 MG/DL Creatinine 0.73 0.60-1.30 MG/DL Estimat Glomerular Filtration Rate > 60 BUN/Creatinine Ratio 22 Glucose Level 115 H 70-105 MG/DL Calcium Level 9.1 8.5-10.1 MG/DL Phosphorus Level 4.2 2.3-4.7 MG/DL Magnesium Level 1.8 1.6-2.4 MG/DL Triglycerides Level 37 <150 MG/DL Cholesterol Level 115 < 200 MG/DL LDL Cholesterol Direct 36 1-129 MG/DL VLDL Cholesterol 7 5-40 MG/DL HDL Cholesterol 57 40-60 MG/DL Physical Exam Physical Exam Vital Signs Vital Signs - First Documented 05/29/19 19:57 Temp 36.7 Pulse 85 Resp 20 B/P (MAP) 143/92 (109) Pulse Ox 100 O2 Delivery Room Air Capillary Refill : Less Than 3 Seconds Height, Weight, BMI Height: 5'10.50" Weight: 302lbs. 0.0oz. [id number]; 40.20 BMI Method:Stated General Appearance: WD/WN, Mild Distress Eyes: Bilateral Eye Normal Inspection, Bilateral Eye PERRL, Bilateral Eye EOMI HEENT: PERRL/EOMI, Normal ENT Inspection Neck: Normal Inspection Respiratory: Lungs Clear, Normal Breath Sounds, No Accessory Muscle Use, No Respiratory Distress Cardiovascular: No Murmur, Normal Peripheral Pulses, Irregularly Irregular, Other (chronic lower extremity edema stated is unchanged) Gastrointestinal: Normal Bowel Sounds, Non Tender, Soft Back: Normal Inspection, No CVA Tenderness, No Vertebral Tenderness Extremity: Non Tender, Pedal Edema, Swelling Neurologic/Psychiatric: Alert, Oriented x3, No Motor/Sensory Deficits, 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 She was not having any active chest pain, cardiac enzymes are negative. Continue to monitor Paroxysmal atrial fibrillation, has failed sotalol, was intolerant to amiodarone, failed Multaq, has been managed by Dr. Russell and scheduled for A. fib ablation, started on Tikosyn. Continue to monitor QT interval Coronary artery disease, underwent cardiac catheterization November 22, 2018 revealing severe mid LAD stenosis of 80-90 percent, very tortuous LAD with difficult visualization. Underwent stent placement using resolute integrity 2.5 x 26 mm stent. Stopping Effient at this time and continue on aspirin and Coumadin History of DVT, first episode occurred about 30 years ago, second episode occurred in July 2015, on the left side while receiving physical therapy for back injury. Maintained on Coumadin Hypertension, restart home medication monitor blood pressure Hyperlipidemia, continue to monitor lipids Back pain and joint pain, history of Charcot joint, currently on oxycodone managed by Dr. Hernandez and Dr. Goode Mild obstructive sleep apnea, followed and managed by Dr. Colmenares Diabetes mellitus, followed and managed by primary care physician. BMI is 40, we discussed weight loss and exercise. Right lower extremity pain, had mildly abnormal ZURI in 2016, I will reevaluate ZURI Clinical Quality Measures AMI/AHF: ASA po Prior to arrival: No DVT/VTE Risk/Contraindication: Risk Factor Score Per Nursin RFS Level Per Nursing on Admit: 4+=Very High CHARLY JOSE MD May 30, 2019 11:11
--- NOTE | 2019-05-30 11:35 | History & Physical-Hospitalist ---
History of Present Illness HPI/Chief Complaint CC: A-FIB with RVR HPI: This is a 68yoWF who has had six hospital stays in the past few weeks for A-FIB with RVR, she was assessed to have failed all standard anti-rhythmics so she will be placed on Tikosyn, and will remain in the hospital for three days while closely monitoring for any arrhythmia. Cefepime will be started and Cipro will be discontinued due to the interactions and will monitor closely in the meantime. Source: patient Date Seen 05/30/19 Time Seen by a Provider: 10:00 Attending Physician Tia Rosales David F MD Referring Physician Date of Admission May 29, 2019 at 21:41 Home Medications & Allergies Home Medications Reviewed patient Home Medication Reconciliation performed by pharmacy medication reconciliations solar field service technician and/or nursing. Patients Allergies have been reviewed. Allergies Allergies Coded Allergies amylase (Verified Allergy, Unknown, 08/07/15) black cohosh (Verified Allergy, Unknown, 08/07/15) cellulase (Verified Allergy, Unknown, 08/07/15) glyburide (Verified Allergy, Unknown, 08/07/15) isosorbide (Verified Allergy, Unknown, 08/07/15) lipase (Verified Allergy, Unknown, 08/07/15) protease (Verified Allergy, Unknown, 08/07/15) Past Umjrstl-Kyaorr-Mzhiis Hx Past Med/Social Hx: Reviewed Nursing Past Med/Soc Hx, Reviewed and Corrections made Patient Social History Marrital Status: single Employed/Student: unemployed Alcohol Use: Denies Use Recreational Drug Use: No Smoking Status: Former Smoker Former Smoker, Quit: May 18, 1980 Type Used: Cigarettes 2nd Hand Smoke Exposure: No Recent Foreign Travel: No Contact w/other who traveled: No Recent Hopitalizations: No Recent Infectious Disease Expo: No Immunizations Up To Date Tetanus Booster (TDap): Unknown Pediatric: Yes Date of Pneumonia Vaccine: Feb 13, 2019 Date of Influenza Vaccine: Jan 14, 2019 Seasonal Allergies Seasonal Allergies: No Past Medical History Surgeries: Cardiac, Coronary Stent, Eye Surgery, Orthopedic Respiratory: Asthma Currently Using CPAP: Yes Currently Using BIPAP: No Cardiac: Atrial Fibrillation (paroxysmal), Chronic Edema/Swelling, Coronary Artery Disease, Deep Vein Thrombosis, Heart Attack, High Cholesterol, Hypertension Neurological: Neuropathy 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: Yes Sexually Transmitted Disease: No HIV/AIDS: No Female 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 Disorders: Denies Menopausal Genitourinary: UTI-Chronic Gastrointestinal: Gastroesophageal Reflux, Chronic Constipation Musculoskeletal: Degenerate Disk Disease, Arthritis, Chronic Back Pain Endocrine: Diabetes, Insulin dep HEENT: Cataract Loss of Vision: Bilateral Hearing Impairment: Denies Cancer: Uterine Psychosocial: Anxiety, Depression History of Blood Disorders: No Adverse Reaction to Blood Funez: No Family History Cardiovascular disease 19 FATHER 19 MOTHER Colon cancer 19 FATHER 19 MOTHER Diabetes mellitus 19 MOTHER G8 BROTHER G8 SISTER Myocardial infarction 19 FATHER No Pertinent Family Hx Review of Systems Constitutional: see HPI Cardiovascular: chest pain, palpitations Physical Exam Physical Exam Vital Signs Vital Signs - First Documented 05/29/19 19:57 Temp 36.7 Pulse 85 Resp 20 B/P (MAP) 143/92 (109) Pulse Ox 100 O2 Delivery Room Air Capillary Refill : Less Than 3 Seconds Height, Weight, BMI Height: 5'10.50" Weight: 302lbs. 0.0oz. 136.491005gy; 40.20 BMI Method:Stated General Appearance: No Apparent Distress, Chronically ill Eyes: Right Eye Normal Inspection, Right Eye PERRL HEENT: PERRL/EOMI, Normal ENT Inspection, Pharynx Normal, Moist Mucous Membranes Neck: Full Range of Motion, Normal Inspection, Non Tender Respiratory: Chest Non Tender, Lungs Clear, Normal Breath Sounds, No Accessory Muscle Use, No Respiratory Distress Cardiovascular: Regular Rate, Rhythm, No Edema, No Gallop, No JVD, No Murmur, Normal Peripheral Pulses Gastrointestinal: Normal Bowel Sounds, No Organomegaly, No Pulsatile Mass, Non Tender, Soft Back: Normal Inspection, No CVA Tenderness, No Vertebral Tenderness Extremity: Normal Capillary Refill, Normal Inspection, Normal Range of Motion, Non Tender, No Calf Tenderness, No Pedal Edema Neurologic/Psychiatric: Alert, Oriented x3, No Motor/Sensory Deficits, Normal Mood/Affect, Sensory Deficit (feet) Skin: Normal Color, Warm/Dry Lymphatic: No Adenopathy Results Results/Procedures Labs Laboratory Tests 05/29/19 19:59 05/30/19 02:53 05/30/19 10:40 Patient resulted labs reviewed. Assessment/Plan Admission Diagnosis Assessment: AF w/RVR placed on Tikosyn now needs close monitoring for 3 days PAF OAC with Coumadin INR ok today CAD s/p stent placement summer 2018 Bilateral Charcot feet on chronic pain meds Neuropathy Polypharmacy DM HTN HLP Difficulty with coping UTI Pseudomonas placed on Cefepime Plan: Dr Russell consultation is appreciated Warfarin maintained Monitor closely Meropenem Admission Status: Inpatient Order (span 2 midnights) Reason for Inpatient Admission: recurrent AF Diagnosis/Problems Diagnosis/Problems (1) Atrial fibrillation with rapid ventricular response Status: Acute (2) CAD (coronary artery disease) Status: Chronic (3) UTI (urinary tract infection) Status: Acute (4) Angina pectoris Status: Chronic (5) Debility (6) Pseudomonas infection (7) JENNA (obstructive sleep apnea) Status: Chronic (8) Chronic anticoagulation Status: Chronic (9) Polypharmacy Status: Chronic (10) Charcot foot due to diabetes mellitus (11) Adult BMI 40.0-44.9 kg/sq m Status: Chronic (12) DVT prophylaxis Status: Acute (13) Chronic mental illness Status: Chronic (14) Insulin dependent diabetes mellitus with complications Status: Chronic (15) Presence of stent in coronary artery in patient with coronary artery d isease Status: Chronic (16) Stented coronary artery Status: Acute Clinical Quality Measures AMI/AHF: ASA po Prior to arrival: No DVT/VTE Risk/Contraindication: Risk Factor Score Per Nursin RFS Level Per Nursing on Admit: 4+=Very High TIA ROSALES DO May 30, 2019 11:35
[2019-05-30] MEDS ORDERED: FAMOTIDINE 20 MG (PEPCID) TABLET PO PRN (11:45)
[2019-05-30] MEDS ORDERED: ACETAMINOPHEN 500 MG TAB (TYLENOL) PO PRN (11:45)
[2019-05-30] MEDS ORDERED: NON-FORMULARY MEDICATION 1 EA EA (Lactobacillus Rhamnosus GG (Culturelle) 1 CAP) PO PRN (11:45)
[2019-05-30] MEDS ORDERED: TRIAMCINOLONE 0.1% CR (KENALOG) 15 GM TUBE TP PRN (11:45)
[2019-05-30] MEDS ORDERED: POLYETHYLENE GLYCOL 17 GM (MIRALAX) PACK PO PRN (11:45)
[2019-05-30] MEDS ORDERED: POVIDONE OU PRN (11:45)
[2019-05-30] MEDS ORDERED: [UNRECOGNIZED DRUG - OTHER] OU PRN (11:45)
[2019-05-30] MEDS ORDERED: POLYVINYL ALCOHOL OU PRN (11:45)
[2019-05-30 11:54] LABS: BUN/CREATININE RATIO 19; CALCIUM 9.2 MG/DL (8.5-10.1); CARBON DIOXIDE 29 MMOL/L (21-32); CHLORIDE 102 MMOL/L (98-107); CREATININE SERUM 0.78 MG/DL (0.60-1.30); GFR ESTIMATED > 60; GLUCOSE 101 MG/DL (70-105); POTASSIUM 4.5 MMOL/L (3.6-5.0); SODIUM 140 MMOL/L (135-145)
[2019-05-30] MEDS ORDERED: NON-FORMULARY MEDICATION 1 EA EA (Cholecalciferol (Vitamin D3) (Vitamin D3) 2,000 UNIT) PO SCH (12:00)
[2019-05-30] MEDS: GABAPENTIN 400 MG (NEURONTIN) CAP PO SCH ×3 (12:10→20:44)
--- NOTE | 2019-05-30 12:51 | Electrophysiology Consultation ---
HPI-Cardiology Cardiology Consultation: Date of Consultation 05/30/19 Date of Admission Attending Physician Tia Rosales DO Admitting Physician Martin Goode MD Consulting Physician Janiya RUSSELL MD HPI: Time Seen by a Provider: 12:10 This is a 68-year-old lady with history of paroxysmal atrial fibrillation refractory to antiarrhythmic therapy. She presented to the ER yesterday with complains of chest pain and tachycardia. She was found to be in atrial fibrillation with heart rate in the 120s. She has symptomatic atrial fibrillation. Previously she has failed multaq. She could not tolerate sotal ol. She received amiodarone but complained of blurred vision therefore amiodarone was discontinued. Therefore she is either intolerant or refractory to multaq, sotalol and amiodarone. When I saw her in the ICU for cardiac electrophysiology consultation on the request of Dr. Calvert her pharmacy benefits coordinator, she had already converted to sinus rhythm. She denied any other symptoms. I previously saw her as an inpatient consultation on 11/30/2018 for paroxysmal atrial fibrillation which spontaneously converted to sinus rhythm. She was also found to have non-STEMI and therefore coronary angiography was done on 11/30/2018 which showed severe mid LAD stenosis which was treated with a drug-eluting stent which was a resolute integrity 2.5 x 26 mm stent. Postdilatation with an NC Quantum 3.0 x 20 mm balloon at 16 ollie for 30 seconds. No residual stenosis with excellent NICHOLAS-3 flow. Review of Systems-Cardiology Review of Systems Constitutional: As described under HPI; No As described under HPI, No no symptoms reported, No chills, No fever, No lightheadedness Eyes: No As described under HPI, No no symptoms reported, No blindness, No blurred vision, No contact lenses, No drainage, No decreased acuity, No foreign body sensation, No pain, No vision change Ears/Nose/Throat: No As described under HPI, No no symptoms reported, No chronic hearing loss, No ear discharge, No ear pain, No nasal drainage, No ulcerations Respiratory: No no symptoms reported; As described under HPI; No As described under HPI, No cough, No orthopnea, No shortness of breath, No SOB with excertion Cardiovascular: No no symptoms reported; As described under HPI; No As described under HPI; chest pain; No edema, No irregular heart rate, No lightheadedness; palpitations Gastrointestinal: No no symptoms reported, No As described under HPI, No abdomen distended, No abdominal pain, No blood streaked bowels, No constipation, No diarrhea, No nausea, No vomiting, No stool coloration changes Genitourinary: No As described under HPI, No burning, No dysuria, No discharge, No frequency, No flank pain, No hematuria, No urgency : Yes : No Skin: No rash, No skin related problems, No ulcerations Psychiatric/Neurological: No anxiety, No depression, No seizure, No focal weakness, No syncope Hematologic: No bleeding abnormalities OIO-Zwxfia-Feaxui Hx Patient Social History Marrital Status: single Alcohol Use: Denies Use Recreational Drug Use: No Former smoker/When Quit: Aug 07, 1980 Type Used: Cigarettes 2nd Hand Smoke Exposure: No Recent Foreign Travel: No Recent Infectious Disease Expo: No Hospitalization with Isolation: Denies Immunizations Up To Date Tetanus Booster (TDap): Unknown Date of Pneumonia Vaccine: Feb 13, 2019 Date of Influenza Vaccine: Jan 14, 2019 Past Medical History PMH As described under Assessment. Family Medical History Family History: Cardiovascular disease 19 FATHER 19 MOTHER Colon cancer 19 FATHER 19 MOTHER Diabetes mellitus 19 MOTHER G8 BROTHER G8 SISTER Myocardial infarction 19 FATHER Allergies and Home Medications Allergies Coded Allergies: amylase (Verified Allergy, Unknown, 08/07/15) black cohosh (Verified Allergy, Unknown, 08/07/15) cellulase (Verified Allergy, Unknown, 08/07/15) glyburide (Verified Allergy, Unknown, 08/07/15) isosorbide (Verified Allergy, Unknown, 08/07/15) lipase (Verified Allergy, Unknown, 08/07/15) protease (Verified Allergy, Unknown, 08/07/15) Home Medications Acetaminophen 500 Mg Tablet, 1,000 MG PO Q6H PRN for PAIN-MILD (1-4), (Reported) Amiodarone HCl 200 Mg Tablet, 200 MG PO BID Prescribed by: JAVIER WATSON on 05/21/19 1152 Aspirin 81 Mg Tablet.dr, 81 MG PO DAILY, (Reported) Atorvastatin Calcium 80 Mg Tablet, 80 MG PO HS, (Reported) Calcium Carbonate/Vitamin D3 1 Each Tablet, 1 TAB PO BID, (Reported) Cetirizine HCl 10 Mg Tablet, 10 MG PO DAILY, (Reported) Cholecalciferol (Vitamin D3) 1,000 Unit Capsule, 2,000 UNIT PO 1200, (Reported) Cyclobenzaprine HCl 10 Mg Tablet, 10 MG PO TID, (Reported) Diltiazem HCl 360 Mg Cap.er.24h, 360 MG PO DAILY, (Reported) Famotidine 20 Mg Tablet, 20 MG PO DAILY PRN for HEARTBURN, (Reported) Ferrous Sulfate 325 Mg Tablet, 325 MG PO 1800, (Reported) Fluticasone/Vilanterol 1 Each Blst.w.dev, 1 PUFF INH DAILY, (Reported) Gabapentin 800 Mg Tablet, 800 MG PO QID, (Reported) Glucosamine/D3/Boswellia Nellie 1 Each Tablet, 1 TAB PO BID, (Reported) Hydroxyzine HCl 10 Mg Tablet, 10 MG PO TID, (Reported) Imipramine HCl 50 Mg Tablet, 50 MG PO HS, (Reported) Insulin Aspart 300 Units/3 Ml Solution, 6 UNITS SQ TIDAC, (Reported) Insulin Glargine,Hum.rec.anlog 100 Unit/1 Ml Vial, 20 UNIT SQ HS, (Reported) Lactobacillus Rhamnosus GG 1 Each Capsule, 1 CAP PO DAILY PRN for WHILE TAKING ANTIBIOTICS, (Reported) Lisinopril 20 Mg Tablet, 20 MG PO DAILY, (Reported) Metformin HCl 1,000 Mg Tablet, 1,000 MG PO BID, (Reported) Mineral Oil/Petrolatum,White 3.5 Gm Oint...g., OU HS, (Reported) Mirabegron 50 Mg Tab.er.24h, 50 MG PO DAILY, (Reported) Multivitamin with Minerals 1 Each Tablet, 1 TAB PO DAILY, (Reported) Nitrofurantoin Macrocrystal 100 Mg Capsule, 100 MG PO DAILY, (Reported) Mansura 3 Polyunsat Fatty Acids 1,000 Mg Cap, 1,000 MG PO TID, (Reported) Oxycodone HCl/Acetaminophen 1 Each Tablet, 1 TAB PO EVERY 4-6 HOURS PRN for P AIN-MODERATE (5-7), (Reported) Polyethylene Glycol 3350 17 Gm Powd.pack, 17 GM PO DAILY PRN for CONSTIPATION- 2ND LINE, (Reported) Polyvinyl Alcohol/Povidone 15 Ml Drops, 2 DROPS OU Q2H PRN for DRY EYES, (Reported) Prasugrel HCl 10 Mg Tablet, 10 MG PO DAILY, (Reported) Primidone 250 Mg Tablet, 250 MG PO TID, (Reported) Solifenacin Succinate 10 Mg Tablet, 10 MG PO 1600, (Reported) Triamcinolone Acet 15 Gm Cr, TP BID PRN for RASH, (Reported) Venlafaxine HCl 75 Mg Cap.er.24h, 75 MG PO DAILY, (Reported) Warfarin Sodium 4 Mg Tablet, 4 MG PO SuTuThFrSa@1600, (Reported) Warfarin Sodium 4 Mg Tablet, 2 MG PO MoWe@1600, (Reported) Patient Home Medication List Home Medication List Reviewed: Yes Physical Exam-Cardiology Physical Exam Vital Signs/I&O 05/30/19 05/30/19 05/30/19 05/30/19 04:00 04:00 05:00 06:00 Pulse 97 87 91 Resp 17 15 15 B/P (MAP) 114/71 (85) 127/78 (94) 120/71 (87) Pulse Ox 98 97 95 96 O2 Delivery Room Air Room Air Room Air Room Air 05/30/19 05/30/19 05/30/19 05/30/19 06:41 07:00 07:45 08:00 Pulse 85 102 112 135 Resp 15 41 B/P (MAP) 150/91 (110) 125/92 (103) Pulse Ox 94 96 O2 Delivery Room Air Room Air 05/30/19 05/30/19 05/30/19 05/30/19 08:00 08:00 09:00 12:00 Temp 35.4 36.2 Pulse 81 Resp 15 B/P (MAP) 118/69 (85) Pulse Ox 98 93 O2 Delivery Room Air Room Air 05/30/19 05/30/19 12:00 15:27 Pulse Ox 99 100 O2 Delivery Room Air Room Air Capillary Refill : Less Than 3 Seconds Constitutional: appears stated age; No apparent distress; well-developed, well- nourished HEENT: PERRL; No discharge; hearing is well preserved, oral hygience is good; No ulceration, No xanthelasmas are seen Neck: No carotid bruit; carotid pulses are 2 + bilaterally Respiratory: chest is bilaterally symmetric, lungs clear to auscultation Cardiovascular: regular rate-rhythm, S1 and S2 Gastrointestinal: soft, audible bowel sounds; No spleenomegaly Rectal: deferred Extremities: normal range of motion, non-tender, normal inspection; No clubbing, No cyanosis; no lower extremity edema bilateral; No significant edema Neurologic/Psychiatric: no motor/sensory deficits, alert, normal mood/affect, oriented x 3, power is 5/5 both on sides Skin: normal color; No rash, No ulcerations Data Review Labs Laboratory Tests 05/29/19 19:59: White Blood Count 7.9, Red Blood Count 4.82, Hemoglobin 13.6, Hematocrit 41, Mean Corpuscular Volume 85, Mean Corpuscular Hemoglobin 28, Mean Corpuscular Hemoglobin Concent 33, Red Cell Distribution Width 16.2H, Platelet Count 339, Mean Platelet Volume 10.1, Neutrophils (%) (Auto) 48, Lymphocytes (%) (Auto) 38, Monocytes (%) (Auto) 9, Eosinophils (%) (Auto) 5, Basophils (%) (Auto) 0, Neutrophils # (Auto) 3.8, Lymphocytes # (Auto) 3.0, Monocytes # (Auto) 0.7, Eosinophils # (Auto) 0.4H, Basophils # (Auto) 0.0, Prothrombin Time 28.6H, INR Comment 2.6H, Activated Partial Thromboplast Time 44H, Sodium Level 136, Potassium Level 4.4, Chloride Level 98, Carbon Dioxide Level 21, Anion Gap 17H, Blood Urea Nitrogen 15, Creatinine 0.80, Estimat Glomerular Filtration Rate > 60, BUN/Creatinine Ratio 19, Glucose Level 149H, Calcium Level 9.3, Corrected Calcium 9.1, Magnesium Level 1.8, Total Bilirubin 0.1, Aspartate Amino Transf (AST/SGOT) 26, Alanine Aminotransferase (ALT/SGPT) 35, Alkaline Phosphatase 184H , Myoglobin 18.9, Troponin I < 0.028, Total Protein 8.0, Albumin 4.2 05/29/19 20:46: Urine Color YELLOW, Urine Clarity CLEAR, Urine pH 6.5, Urine Specific [place] <=1.005, Urine Protein NEGATIVE, Urine Glucose (UA) NEGATIVE, Urine Ketones NEGATIVE, Urine Nitrite NEGATIVE, Urine Bilirubin NEGATIVE, Urine Urobilinogen 0.2, Urine Leukocyte Esterase 3+H, Urine RBC (Auto) TRACE-I, Urine RBC NONE, Urine WBC 10-25H, Urine Crystals NONE, Urine Bacteria TRACE, Urine Casts NONE, Urine Mucus SMALLH, Urine Culture Indicated YES 05/29/19 22:10: Troponin I < 0.028 05/29/19 23:02: Glucometer 74 05/30/19 02:53: White Blood Count 8.0, Red Blood Count 4.39, Hemoglobin 12.2, Hematocrit 38, Mean Corpuscular Volume 85, Mean Corpuscular Hemoglobin 28, Mean Corpuscular Hemoglobin Concent 33, Red Cell Distribution Width 16.0H, Platelet Count 283, Mean Platelet Volume 10.5H, Neutrophils (%) (Auto) 46, Lymphocytes (%) (Auto) 41, Monocytes (%) (Auto) 9, Eosinophils (%) (Auto) 5, Basophils (%) (Auto) 0, Neutrophils # (Auto) 3.6, Lymphocytes # (Auto) 3.2, Monocytes # (Auto) 0.7, Eosinophils # (Auto) 0.4H, Basophils # (Auto) 0.0, Prothrombin Time 30.8H, INR Comment 2.8H, Sodium Level 139, Potassium Level 4.3, Chloride Level 102, Carbon Dioxide Level 24, Anion Gap 13, Blood Urea Nitrogen 16, Creatinine 0.73, Estimat Glomerular Filtration Rate > 60, BUN/Creatinine Ratio 22, Glucose Level 115H, Calcium Level 9.1, Phosphorus Level 4.2, Magnesium Level 1.8, Triglycerides Level 37, Cholesterol Level 115, LDL Cholesterol Direct 36, VLDL Cholesterol 7, HDL Cholesterol 57 05/30/19 10:40: Sodium Level 140, Potassium Level 4.5, Chloride Level 102, Carbon Dioxide Level 29, Anion Gap 9, Blood Urea Nitrogen 15, Creatinine 0.78, Estimat Glomerular Filtration Rate > 60, BUN/Creatinine Ratio 19, Glucose Level 101, Calcium Level 9.2 05/30/19 11:56: Glucometer 120H ECG Impression ECG Initial ECG Rhythm: Normal Sinus Initial ECG Impression: Normal A/P-Cardiology Assessment/Admission Diagnosis Paroxysmal atrial fibrillation with rapid ventricular rate, History of CAD, PCI, next and diabetes, Hyperlipidemia, Hypertension, Obstructive sleep apnea on CPAP therapy, Morbid obesity. Plan 1. Paroxysmal atrial fibrillation with rapid ventricular rate.: Continue Cardizem 360 mg daily. Continue oral anticoagulation therapy. Start the patient on dofetilide based on the protocol. We will start the patient on 250 g twice a day. Patient has been either intolerant or refractory to multaq, sotalol and amiodarone. AF ablation is indicated, Symptomatic AF with RVR refractory to AAD. Informed consent taken. Success rate due to obesity and JENNA around 50-60%. Serious complication rate of around 2-2.5%. Patient accepts it and will like to proceed. Atrial fibrillation ablation scheduled on June 14. 2. CAD: Status post PCI with drug-eluting stent to the LAD on 11/30/2018. Defer to Dr Calvert. 3. Diabetes: Defer to the primary team. 4. Hyperlipidemia: High-dose statin therapy. 5. Hypertension: Continue outpatient medical therapy. Thank you for your consultation. Please call me if you have any questions. My uRssell MD, FACP, FACC, FSCAI, FHRS, CCDS Interventional Cardiology Cardiac Electrophysiology Vascular Medicine and Endovascular Interventions Clinical Quality Measures AMI/AHF: ASA po Prior to arrival: No DVT/VTE Risk/Contraindication: Risk Factor Score Per Nursin RFS Level Per Nursing on Admit: 4+=Very High Janiya RUSSELL MD May 30, 2019 12:51
[2019-05-30] MEDS ORDERED: NON-FORMULARY MEDICATION 1 EA EA (Gabapentin 800 MG) PO SCH (13:00)
[2019-05-30] MEDS ORDERED: CYCLOBENZAPRINE 10 MG (FLEXERIL) TAB PO SCH (13:00)
[2019-05-30] MEDS ORDERED: hydrOXYzine (ATARAX) 10 MG TAB PO SCH (13:00)
[2019-05-30] MEDS ORDERED: LACTOBACILLUS ACIDOPHILUS (PROBIOTIC) CAPSULE PO PRN (13:45)
[2019-05-30] MEDS: PRIMIDONE 250MG (MYSOLINE) TAB PO SCH ×2 (13:55→20:45)
[2019-05-30] MEDS: OMEGA 3 (FISH OIL) 1000 MG CAP PO SCH ×2 (13:55→20:44)
[2019-05-30] MEDS: VITAMIN D3 1,000 UNITS (CHOLECALCIFEROL) TABLET PO SCH (13:56)
[2019-05-30] MEDS ORDERED: ARTIFICAL TEARS 0.4 ML UNIT DOSE (REFRESH PLUS) OU PRN (14:30)
[2019-05-30] MEDS: RT-ALBUTEROL/IPRATROPIUM 3 ML (DUONEB) VIAL INH SCH ×2 (15:23→22:30)
[2019-05-30] MEDS ORDERED: NON-FORMULARY MEDICATION 1 EA EA (Solifenacin Succinate (Vesicare) 10 MG) PO SCH (16:00)
[2019-05-30] MEDS ORDERED: NON-FORMULARY MEDICATION 1 EA EA (Insulin Aspart (Novolog Flexpen) 6 UNITS) SQ SCH (16:00)
[2019-05-30] MEDS ORDERED: warFARin 4 MG (COUMADIN) TAB PO SCH (16:00)
[2019-05-30] MEDS: TROSPIUM 20 MG (SANCTURA) TAB PO SCH (16:52)
[2019-05-30] MEDS: metFORMIN 500 MG (GLUCOPHAGE) TAB PO SCH (16:53)
[2019-05-30] MEDS: CALCIUM CARB + VIT D 600 MG (CALCARB + D) TAB PO SCH (16:53)
[2019-05-30] MEDS ORDERED: warFARin 2 MG (COUMADIN) TAB PO SCH (18:00)
[2019-05-30] MEDS: FERROUS SULF 325 MG (IRON) TAB PO SCH (18:05)
[2019-05-30] MEDS: oxyCODONE/APAP 10/325MG (PERCOCET 10) TABLET PO PRN (18:06)
[2019-05-30] MEDS: IMIPRAMINE 25 MG (TOFRANIL) TAB PO SCH (20:44)
[2019-05-30] MEDS: CYCLOBENZAPRINE 10 MG (FLEXERIL) TAB PO PRN (20:44)
[2019-05-30] MEDS: CEFEPIME 2,000 MG/SWFI 20 ML IV PUSH IV SCH ×2 (20:44)
[2019-05-30] MEDS ORDERED: NON-FORMULARY MEDICATION 1 EA EA (Insulin Glargine,Hum.rec.anlog (Lantus) 20 UNIT) SQ SCH (21:00)
[2019-05-30] MEDS ORDERED: NON-FORMULARY MEDICATION 1 EA EA (Metformin HCl 1,000 MG) PO SCH (21:00)
[2019-05-30] MEDS ORDERED: NON-FORMULARY MEDICATION 1 EA EA (Calcium Carbonate/Vitamin D3 (Calcium 500 + Vit D Caplet PO SCH (21:00)
[2019-05-30] MEDS ORDERED: NON-FORMULARY MEDICATION 1 EA EA (Imipramine HCl 50 MG) PO SCH (21:00)
[2019-05-31] VITALS (12 sets, daily range): BP systolic 128–169; BP diastolic 69–98
[2019-05-31 03:34] LABS: BASOPHILS % (AUTO) 0 % (0-10); EOSINOPHILS # (AUTO) 0.4 10^3/uL (0.0-0.3); EOSINOPHILS % (AUTO) 5 % (0-10); HEMATOCRIT 36 % (35-52); HEMOGLOBIN 11.6 G/DL (11.5-16.0); LYMPHOCYTES # (AUTO) 3.2 X 10^3 (1.0-4.0); LYMPHOCYTES % (AUTO) 41 % (12-44); MEAN CORPUSCULAR HEMOGLOBIN 28 PG (25-34); MEAN CORPUSCULAR HGB CONC 32 G/DL (32-36); MEAN CORPUSCULAR VOLUME 86 FL (80-99); MONOCYTES # (AUTO) 0.7 X 10^3 (0.0-1.0); MONOCYTES % (AUTO) 9 % (0-12); NEUTROPHILS # (AUTO) 3.4 X 10^3 (1.8-7.8); NEUTROPHILS % (AUTO) 44 % (42-75); PLATELET COUNT 257 10^3/uL (130-400); RED CELL DISTRIBUTION WIDTH 16.4 % (10.0-14.5); WHITE BLOOD COUNT 7.6 10^3/uL (4.3-11.0)
[2019-05-31 03:52] LABS: PROTHROMBIN TIME PATIENT 32.5 SEC (12.2-14.7)
[2019-05-31 04:07] LABS: ALANINE AMINOTRANSFERASE 28 U/L (0-55); ALBUMIN 3.6 GM/DL (3.2-4.5); ALKALINE PHOSPHATASE 138 U/L (40-136); BILIRUBIN,TOTAL 0.1 MG/DL (0.1-1.0); BUN/CREATININE RATIO 23; CALCIUM 9.1 MG/DL (8.5-10.1); CARBON DIOXIDE 23 MMOL/L (21-32); CHLORIDE 102 MMOL/L (98-107); CREATININE SERUM 0.78 MG/DL (0.60-1.30); GFR ESTIMATED > 60; GLUCOSE 90 MG/DL (70-105); MAGNESIUM 1.8 MG/DL (1.6-2.4); PHOSPHORUS 4.1 MG/DL (2.3-4.7); POTASSIUM 4.1 MMOL/L (3.6-5.0); SODIUM 139 MMOL/L (135-145); TOTAL PROTEIN 6.6 GM/DL (6.4-8.2)
--- NOTE | 2019-05-31 04:20 | Pulmonary Progress Note ---
Subjective Date Seen by a Provider: May 31, 2019 Time Seen by a Provider: 04:17 Subjective/Events-last exam Pt appears to be doing better. Sepsis Event Evaluation Height, Weight, BMI Height: 5'10.50" Weight: 302lbs. 0.0oz. [id number]; 40.20 BMI Method:Stated Exam Exam Vital Signs Date Time Temp Pulse Resp B/P (MAP) Pulse Ox O2 Delivery O2 Flow Rate FiO2 05/31/19 01:00 95 05/31/19 00:00 98 NIV CPAP 05/31/19 00:00 94 13 154/94 (114) 96 Room Air 05/30/19 23:00 93 17 150/69 (96) 100 Room Air 05/30/19 22:30 94 NIV CPAP 21 05/30/19 22:00 98 29 164/90 (114) 96 Room Air 05/30/19 21:00 96 29 171/85 (113) 96 Room Air 05/30/19 20:00 36.5 05/30/19 20:00 98 Room Air 05/30/19 20:00 87 15 175/84 (114) 96 Room Air 05/30/19 19:00 88 05/30/19 19:00 87 18 175/92 (119) 96 Room Air 05/30/19 18:00 103 21 215/85 (128) 98 Room Air 05/30/19 17:00 96 17 175/89 (117) 97 Room Air 05/30/19 16:00 85 12 149/81 (103) 92 Room Air 05/30/19 16:00 36.0 05/30/19 16:00 98 Room Air 05/30/19 15:27 100 Room Air 05/30/19 15:00 86 18 155/80 (105) 97 Room Air 05/30/19 14:00 88 10 178/116 (136) 99 Room Air 05/30/19 13:00 93 21 159/89 (112) 100 Room Air 05/30/19 12:53 86 05/30/19 12:00 99 Room Air 05/30/19 12:00 36.2 05/30/19 12:00 90 12 96 Room Air 05/30/19 11:00 83 13 137/73 (94) 99 Room Air 05/30/19 10:00 79 13 138/78 (98) 98 Room Air 05/30/19 09:00 81 15 118/69 (85) 93 Room Air 05/30/19 08:00 35.4 05/30/19 08:00 98 Room Air 05/30/19 08:00 135 41 125/92 (103) 96 Room Air 05/30/19 07:45 112 05/30/19 07:00 102 15 150/91 (110) 94 Room Air 05/30/19 06:41 85 05/30/19 06:00 91 15 120/71 (87) 96 Room Air 05/30/19 05:00 87 15 127/78 (94) 95 Room Air I & O 05/31/19 07:00 Intake Total 2790 ml Balance 2790 ml Height & Weight Height: 5'10.50" Weight: 302lbs. 0.0oz. [id number]; 40.20 BMI Method:Stated General Appearance: No Apparent Distress, Chronically ill HEENT: PERRL/EOMI, Normal ENT Inspection, Pharynx Normal, Moist Mucous Membranes Neck: Full Range of Motion, Normal Inspection, Non Tender Respiratory: Chest Non Tender, Lungs Clear, Normal Breath Sounds, No Accessory Muscle Use, No Respiratory Distress Cardiovascular: Regular Rate, Rhythm, No Edema, No Gallop, No JVD, No Murmur, Normal Peripheral Pulses Capillary Refill: Less Than 3 Seconds Extremity: Normal Capillary Refill, Normal Inspection, Normal Range of Motion, Non Tender, No Calf Tenderness, No Pedal Edema Neurologic/Psychiatric: Alert, Oriented x3, No Motor/Sensory Deficits, Normal Mood/Affect, Sensory Deficit (feet) Skin: Normal Color, Warm/Dry Lymphatic: No Adenopathy Results Lab Laboratory Tests 05/29/19 19:59 05/30/19 02:53 05/30/19 10:40 05/31/19 03:12 Assessment/Plan Assessment/Plan Afib paroxysmal -Pt is now off Cardizem gtt -Warfarin lung nodule per CXR -check CT of chest with contrast to r/o lung mass UTI - Cipro JENNA -on CPAP therapy Morbid obesity TARAH GARVEY DO May 31, 2019 04:20
[2019-05-31] MEDS: KCL 20 MEQ TAB (K-DUR) PO SCH (05:32)
[2019-05-31] MEDS: inSUlin ASPART (NovoLOG) 1 UNIT/0.01 ML (CHARGE PER UNIT) SC SCH ×3 (06:13→17:14)
[2019-05-31] MEDS: metFORMIN 500 MG (GLUCOPHAGE) TAB PO SCH (06:41)
[2019-05-31] MEDS: CALCIUM CARB + VIT D 600 MG (CALCARB + D) TAB PO SCH ×2 (06:41→17:11)
[2019-05-31] MEDS: MULTIVIT W/MINERALS TAB (THERAGRAN M) PO SCH (06:41)
[2019-05-31] MEDS: TROSPIUM 20 MG (SANCTURA) TAB PO SCH ×2 (06:41→17:11)
[2019-05-31] MEDS: VENlafaxine XR 75 MG (EFFEXOR XR) CAP PO SCH (06:41)
[2019-05-31] MEDS: CEFEPIME 2,000 MG/SWFI 20 ML IV PUSH IV SCH ×4 (08:14→21:45)
[2019-05-31] MEDS: oxyCODONE/APAP 10/325MG (PERCOCET 10) TABLET PO PRN ×3 (08:15→21:50)
[2019-05-31] MEDS: GABAPENTIN 400 MG (NEURONTIN) CAP PO SCH ×4 (08:15→21:50)
[2019-05-31] MEDS: ASPIRIN E.C. 81 MG (ECOTRIN) TAB PO SCH (08:15)
[2019-05-31] MEDS: CYCLOBENZAPRINE 10 MG (FLEXERIL) TAB PO PRN (08:15)
[2019-05-31] MEDS: lisINopril 20 MG (PRINIVIL) TABLET PO SCH (08:15)
[2019-05-31] MEDS: OMEGA 3 (FISH OIL) 1000 MG CAP PO SCH ×3 (08:16→21:50)
[2019-05-31] MEDS: LORATADINE (CLARITIN) 10 MG TAB PO SCH (08:16)
[2019-05-31] MEDS: PRIMIDONE 250MG (MYSOLINE) TAB PO SCH ×3 (08:16→21:50)
[2019-05-31] MEDS: PRASUGREL 10 MG (EFFIENT) TABLET PO SCH (08:16)
[2019-05-31] MEDS: amLODIPine 5 MG (NORVASC) TAB PO SCH (08:16)
--- NOTE | 2019-05-31 08:18 | Diagnostic Imaging Report ---
PROCEDURE: CT chest with contrast only. TECHNIQUE: Multiple contiguous axial images were obtained through the chest after administration of intravenous contrast. Auto Exposure Controls were utilized during the CT exam to meet ALARA standards for radiation dose reduction. INDICATION: Left lung nodule COMPARISON: Chest x-ray 05/30/2019 FINDINGS: The heart is slightly enlarged. Coronary artery disease is present. The visualized pulmonary arteries and aorta are otherwise unremarkable. There is no pericardial effusion. There is no lymphadenopathy. Central airways are grossly unremarkable. There is some minimal residual infiltrate in the low lung bases. Minimal infiltrate persists in the left upper lobe. No consolidation is identified. The questionable lung nodule described in the lateral aspect of the left lung on the radiograph is likely outside energy sales representatives of the patient's nipple. There is no lung mass or suspicious nodule identified within the lung parenchyma. Osseous structures are age-appropriate. Visualized upper abdominal solid organs demonstrate no acute abnormality. There is moderate constipation. There is a known nonobstructive stone in the upper pole the right kidney. There is a small hiatal hernia. IMPRESSION: 1. Questionable nodule is compatible with patient's nipple on the left. No suspicious mass or nodule is seen within lung parenchyma 2. Minimal basilar and left upper lobe infiltrate. 3. Cardiac enlargement with coronary artery disease. 4. Small hiatal hernia. 5. Constipation 6. Known nonobstructive stone upper pole right kidney. Dictated by: Dictated on workstation # [id number]
[2019-05-31] MEDS ORDERED: NON-FORMULARY MEDICATION 1 EA EA (Cetirizine HCl (Zyrtec) 10 MG) PO SCH (09:00)
[2019-05-31] MEDS ORDERED: NON-FORMULARY MEDICATION 1 EA EA (Mirabegron (Myrbetriq) 50 MG) PO SCH (09:00)
[2019-05-31] MEDS ORDERED: NON-FORMULARY MEDICATION 1 EA EA (Fluticasone/Vilanterol (Breo Ellipta 200-25 Mcg INH) 1 P INH SCH (09:00)
[2019-05-31] MEDS ORDERED: PRASUGREL 10 MG (EFFIENT) TABLET PO SCH (09:00)
--- NOTE | 2019-05-31 09:28 | Cardiology Progress Note ---
Subjective Date Seen by Provider: May 31, 2019 Time Seen by Provider: 09:22 Objective-Cardiology Exam Last Set of Vital Signs Vital Signs 05/30/19 05/31/19 05/31/19 22:30 08:00 12:14 Pulse 91 Resp 12 B/P (MAP) 155/98 (117) Pulse Ox 97 O2 Delivery Room Air FiO2 21 Capillary Refill : Less Than 3 Seconds I&O Intake and Output 05/31/19 00:00 Intake Total 3090 ml Output Total 1050 ml Balance 2040 ml Intake Oral 3090 ml Output Urine Total 1050 ml # Voids 9 Daily Weight Change No Results Lab Laboratory Tests 05/31/19 03:12 A/P-Cardiology Admission Diagnosis Chest pain Paroxysmal atrial fibrillation Coronary artery disease Hypertension Assessment/Plan Chest pain nonspecific etiology, probably secondary to tachycardia, heart rate was over 120 during that EMS evaluation, She was not having any active chest pain, cardiac enzymes are negative. Continue to monitor Paroxysmal atrial fibrillation, has failed sotalol, was intolerant to amiodarone, failed Multaq, has been managed by Dr. Russell and scheduled for A. fib ablation on June 14, started on Dofetilied 250Micro-g BID.. Continue to monitor QT interval Coronary artery disease, underwent cardiac catheterization November 22, 2018 revealing severe mid LAD stenosis of 80-90 percent, very tortuous LAD with difficult visualization. Underwent stent placement using resolute integrity 2.5 x 26 mm stent. Stopping Effient at this time and continue on aspirin and Coumadin UTI- was started on Cipro, Managed by primary care team lung nodule noted on CXR- Managed and followed by primary care team and Dr. Colmenares History of DVT, first episode occurred about 30 years ago, second episode occurred in July 2015, on the left side while receiving physical therapy for back injury. Maintained on Coumadin Hypertension, restarted home medication, Poorly controlled, persistent elevated BP since 2019,May benefit from increasing dose of Lisinopril. continue monitoring blood pressure Hyperlipidemia, continue to monitor lipids Back pain and joint pain, history of Charcot joint, currently on oxycodone managed by Dr. Hernandez and Dr. Goode Mild obstructive sleep apnea, on CPaP now, followed and managed by Dr. Colmenares Diabetes mellitus, followed and managed by primary care physician. BMI is 40, we discussed weight loss and exercise. Right lower extremity pain, had mildly abnormal ZURI in 2016, I will reevaluate ZURI Clinical Quality Measures AMI/AHF: ASA po Prior to arrival: No DVT/VTE Risk/Contraindication: Risk Factor Score Per Nursin RFS Level Per Nursing on Admit: 4+=Very High Supervisory-Addendum Brief Verification & Attestation Participated in pt care: history, MDM, physical Personally performed: exam, history, MDM, supervision of care Care discussed with: Medical Student Procedures: n/a Results interpretation: Verified all documentation Verification and Attestation of Medical Student E/M Service A medical student performed and documented this service in my presence. I reviewed and verified all information documented by the medical student and made modifications to such information, when appropriate. I personally performed the physical exam and medical decision making. Please refer to my note for May 31, 2019 Charly Calvert, May 31, 2019,12:58 [facility] May 31, 2019 09:28 CHARLY CALVERT MD May 31, 2019 12:58
--- NOTE | 2019-05-31 10:16 | Progress Note - Hospitalist ---
Subjective HPI/CC On Admission Date Seen by Provider: May 31, 2019 Time Seen by Provider: 09:30 CC: A-FIB with RVR HPI: This is a 68yoWF who has had six hospital stays in the past few weeks for A-FIB with RVR, she was assessed to have failed all standard anti-rhythmics so she will be placed on Tikosyn, and will remain in the hospital for three days while closely monitoring for any arrhythmia. Cefepime will be started and Cipro will be discontinued due to the interactions and will monitor closely in the meantime. Subjective/Events-last exam Pt has a lot of chronic pain issues she reports Needs some Miralax CT scan was obtained per Dr. Colmenares Maintained on close monitoring for cardiac medication evaluation Review of Systems General: Fatigue Musculoskeletal: neck pain, shoulder pain, back pain Objective Exam Vital Signs Vital Signs Date Time Temp Pulse Resp B/P (MAP) Pulse Ox O2 Delivery O2 Flow Rate FiO2 05/31/19 20:00 36.4 91 17 154/82 (106) 97 05/31/19 16:36 Room Air 05/30/19 22:30 21 Capillary Refill : Less Than 3 Seconds General Appearance: No Apparent Distress, WD/WN, Chronically ill, Obese Respiratory: Lungs Clear Cardiovascular: Regular Rate, Rhythm Neurologic/Psychiatric: Alert, Oriented x3, No Motor/Sensory Deficits, Normal Mood/Affect Results/Procedures Lab Laboratory Tests 05/31/19 03:12 Patient resulted labs reviewed. Assessment/Plan Assessment and Plan Assess & Plan/Chief Complaint Assessment: AF w/RVR placed on Tikosyn now needs close monitoring for 3 days PAF OAC with Coumadin INR monitored CAD s/p stent placement summer 2018 Bilateral Charcot feet on chronic pain meds Neuropathy Polypharmacy DM HTN HLP Difficulty with coping UTI Pseudomonas placed on Cefepime Plan: Dr Russell consultation is appreciated Warfarin maintained Monitor closely Cefepime Diagnosis/Problems Diagnosis/Problems (1) Atrial fibrillation with rapid ventricular response Status: Acute (2) CAD (coronary artery disease) Status: Chronic (3) UTI (urinary tract infection) Status: Acute (4) Angina pectoris Status: Chronic (5) Debility (6) Pseudomonas infection (7) JENNA (obstructive sleep apnea) Status: Chronic (8) Chronic anticoagulation Status: Chronic (9) Polypharmacy Status: Chronic (10) Charcot foot due to diabetes mellitus (11) Adult BMI 40.0-44.9 kg/sq m Status: Chronic (12) DVT prophylaxis Status: Acute (13) Chronic mental illness Status: Chronic (14) Insulin dependent diabetes mellitus with complications Status: Chronic (15) Presence of stent in coronary artery in patient with coronary artery disease Status: Chronic (16) Stented coronary artery Status: Acute Clinical Quality Measures AMI/AHF: ASA po Prior to arrival: No DVT/VTE Risk/Contraindication: Risk Factor Score Per Nursin RFS Level Per Nursing on Admit: 4+=Very High SAWYER TELLO DO May 31, 2019 10:16
[2019-05-31] MEDS: DOFETILIDE 125 MCG (TIKOSYN) CAPSULE PO SCH ×2 (10:49→21:51)
[2019-05-31] MEDS: VITAMIN D3 1,000 UNITS (CHOLECALCIFEROL) TABLET PO SCH (11:45)
[2019-05-31] MEDS: RT-ALBUTEROL/IPRATROPIUM 3 ML (DUONEB) VIAL INH SCH ×2 (11:49→16:35)
[2019-05-31] MEDS: RT-ADVAIR HFA 115/21 MCG PER PUFF IH SCH (11:49)
[2019-05-31] MEDS ORDERED: DOFE250C PO (12:14)
--- NOTE | 2019-05-31 12:48 | Cardiology Progress Note ---
Subjective Date Seen by Provider: May 31, 2019 Time Seen by Provider: 12:47 Subjective/Events-last exam Patient is sitting in a chair, denied any chest pain No new complaint Review of Systems General: No Chills, No Night Sweats, No Fatigue, No Malaise, No Appetite, No Other HEENT: No Head Aches, No Visual Changes, No Eye Pain, No Ear Pain, No Dysphasia, No Sinus Congestion, No Post Nasal Drip, No Sore Throat, No Other Pulmonary: No Dyspnea, No Cough, No Pleuritic Chest Pain, No Other Cardiovascular: No: Chest Pain, Palpitations, Orthopnea, Paroxysmal Noc. Dyspnea, Edema, Lt Headedness, Other Objective-Cardiology Exam Last Set of Vital Signs Vital Signs 05/30/19 05/31/19 05/31/19 22:30 08:00 12:14 Pulse 91 Resp 12 B/P (MAP) 155/98 (117) Pulse Ox 97 O2 Delivery Room Air FiO2 21 Capillary Refill : Less Than 3 Seconds I&O Intake and Output 05/31/19 00:00 Intake Total 3090 ml Output Total 1050 ml Balance 2040 ml Intake Oral 3090 ml Output Urine Total 1050 ml # Voids 9 Daily Weight Change No General: Alert, Oriented X3, Cooperative HEENT: Atraumatic, PERRLA Neck: Supple, No JVD, No Thyromegaly Lungs: Clear to Auscultation, Normal Air Movement Heart: Regular Rate, Normal S1, Normal S2, No Murmurs Abdomen: Normal Bowel Sounds, Soft, No Tenderness, No Hepatosplenomegaly, No Masses Extremities: No Clubbing, No Cyanosis, No Edema, Normal Pulses, No Tenderness/Swelling Skin: No Rashes, No Breakdown, No Significant Lesion Neuro: Normal Gait, Normal Speech, Strength at 5/5 X4 Ext, Normal Tone, Sensation Intact Psych/Mental Status: Mental Status NL, Mood NL Results Lab Laboratory Tests 05/31/19 03:12 A/P-Cardiology Admission Diagnosis Chest pain Paroxysmal atrial fibrillation Coronary artery disease Hypertension Assessment/Plan Chest pain nonspecific etiology, reporting improvement. Continue to monitor Paroxysmal atrial fibrillation, has failed sotalol, was intolerant to amiodarone, failed Multaq, has been managed by Dr. Russell and scheduled for A. fib ablation on June 14, started on Dofetilied. Continue to monitor QT interval Coronary artery disease, underwent cardiac catheterization November 22, 2018 revealing severe mid LAD stenosis of 80-90 percent, very tortuous LAD with difficult visualization. Underwent stent placement using resolute integrity 2.5 x 26 mm stent. Stopping Effient at this time and continue on aspirin and Coumadin UTI- was started on Cipro, Managed by primary care team lung nodule noted on CXR- Managed and followed by primary care team and Dr. Colmenares History of DVT, first episode occurred about 30 years ago, second episode occurred in July 2015, on the left side while receiving physical therapy for back injury. Maintained on Coumadin Hypertension, restarted home medication, Poorly controlled, persistent elevated BP since 2019,May benefit from increasing dose of Lisinopril. continue monitoring blood pressure Hyperlipidemia, continue to monitor lipids Back pain and joint pain, history of Charcot joint, currently on oxycodone managed by Dr. Hernandez and Dr. Goode Mild obstructive sleep apnea, on CPaP now, followed and managed by Dr. Colmenares Diabetes mellitus, followed and managed by primary care physician. BMI is 40, we discussed weight loss and exercise. Right lower extremity pain, had mildly abnormal ZURI in 2016, I will reevaluate ZURI Clinical Quality Measures AMI/AHF: ASA po Prior to arrival: No DVT/VTE Risk/Contraindication: Risk Factor Score Per Nursin RFS Level Per Nursing on Admit: 4+=Very High CHARLY JOSE MD May 31, 2019 12:48 pm
[2019-05-31] MEDS ORDERED: warFARin 4 MG (COUMADIN) TAB PO SCH (16:00)
[2019-05-31] MEDS: FERROUS SULF 325 MG (IRON) TAB PO SCH (17:11)
[2019-05-31] MEDS: warFARin 4 MG (COUMADIN) TAB PO SCH (17:28)
[2019-05-31] MEDS ORDERED: CEFEPIME 2 GM (MAXIPIME) VIAL ONE (21:37)
[2019-05-31] MEDS ORDERED: WATER (STERILE) FOR INJECTION 20 ML ONE (21:37)
[2019-05-31] MEDS: IMIPRAMINE 25 MG (TOFRANIL) TAB PO SCH (21:50)
[2019-06-01] VITALS: BP 130/76
[2019-06-01] MEDS: RT-ALBUTEROL/IPRATROPIUM 3 ML (DUONEB) VIAL INH SCH ×4 (02:40→19:42)
[2019-06-01 03:40] VITALS: BP 146/79
[2019-06-01 03:55] LABS: BASOPHILS % (AUTO) 0 % (0-10); EOSINOPHILS # (AUTO) 0.4 10^3/uL (0.0-0.3); EOSINOPHILS % (AUTO) 7 % (0-10); HEMATOCRIT 36 % (35-52); HEMOGLOBIN 11.8 G/DL (11.5-16.0); INR 2.4 (0.8-1.4); LYMPHOCYTES # (AUTO) 2.5 X 10^3 (1.0-4.0); LYMPHOCYTES % (AUTO) 40 % (12-44); MEAN CORPUSCULAR HEMOGLOBIN 28 PG (25-34); MEAN CORPUSCULAR HGB CONC 33 G/DL (32-36); MEAN CORPUSCULAR VOLUME 85 FL (80-99); MEAN PLATELET VOLUME 9.8 FL (7.4-10.4); MONOCYTES # (AUTO) 0.7 X 10^3 (0.0-1.0); MONOCYTES % (AUTO) 12 % (0-12); NEUTROPHILS # (AUTO) 2.5 X 10^3 (1.8-7.8); NEUTROPHILS % (AUTO) 41 % (42-75); PLATELET COUNT 270 10^3/uL (130-400); PROTHROMBIN TIME PATIENT 27.1 SEC (12.2-14.7); RED CELL DISTRIBUTION WIDTH 16.2 % (10.0-14.5); WHITE BLOOD COUNT 6.2 10^3/uL (4.3-11.0)
[2019-06-01 04:02] LABS: ALANINE AMINOTRANSFERASE 25 U/L (0-55); ALBUMIN 3.7 GM/DL (3.2-4.5); ALKALINE PHOSPHATASE 134 U/L (40-136); BILIRUBIN,TOTAL 0.1 MG/DL (0.1-1.0); BUN/CREATININE RATIO 25; CALCIUM 9.2 MG/DL (8.5-10.1); CARBON DIOXIDE 26 MMOL/L (21-32); CHLORIDE 104 MMOL/L (98-107); CREATININE SERUM 0.69 MG/DL (0.60-1.30); GFR ESTIMATED > 60; GLUCOSE 71 MG/DL (70-105); MAGNESIUM 1.9 MG/DL (1.6-2.4); PHOSPHORUS 4.2 MG/DL (2.3-4.7); POTASSIUM 3.9 MMOL/L (3.6-5.0); SODIUM 140 MMOL/L (135-145); TOTAL PROTEIN 6.9 GM/DL (6.4-8.2)
[2019-06-01] MEDS: inSUlin ASPART (NovoLOG) 1 UNIT/0.01 ML (CHARGE PER UNIT) SC SCH ×3 (05:21→15:48)
[2019-06-01] MEDS: TROSPIUM 20 MG (SANCTURA) TAB PO SCH ×2 (05:49→17:14)
[2019-06-01] MEDS: MULTIVIT W/MINERALS TAB (THERAGRAN M) PO SCH (05:49)
[2019-06-01] MEDS: CALCIUM CARB + VIT D 600 MG (CALCARB + D) TAB PO SCH ×2 (05:49→11:47)
[2019-06-01] MEDS: oxyCODONE/APAP 10/325MG (PERCOCET 10) TABLET PO PRN ×5 (05:50→21:55)
[2019-06-01] MEDS: VENlafaxine XR 75 MG (EFFEXOR XR) CAP PO SCH (05:50)
--- NOTE | 2019-06-01 06:42 | Pulmonary Progress Note ---
Subjective Time Seen by a Provider: 06:40 Subjective/Events-last exam No complications noted. Sepsis Event Evaluation Height, Weight, BMI Height: 5'10.50" Weight: 302lbs. 0.0oz. 136.299868mi; 40.20 BMI Method:Stated Exam Exam Vital Signs Date Time Temp Pulse Resp B/P (MAP) Pulse Ox O2 Delivery O2 Flow Rate FiO2 06/01/19 03:40 36.2 79 18 146/79 (101) 100 NIV CPAP 06/01/19 01:00 83 06/01/19 00:00 36.6 90 16 130/76 (94) 95 Room Air 05/31/19 21:29 90 05/31/19 21:00 97 Room Air 05/31/19 20:00 36.4 91 17 154/82 (106) 97 Room Air 05/31/19 16:36 95 Room Air 05/31/19 16:26 35.5 88 16 145/85 (105) 99 05/31/19 12:14 91 05/31/19 12:00 36.4 88 16 145/69 (94) 96 Room Air 05/31/19 08:00 36.6 05/31/19 08:00 97 Room Air 05/31/19 08:00 90 12 155/98 (117) 96 Room Air 05/31/19 07:00 89 137/82 (100) 95 Room Air 05/31/19 07:00 92 I & O 06/01/19 07:00 Intake Total 1775 ml Output Total 1300 ml Balance 475 ml Height & Weight Height: 5'10.50" Weight: 302lbs. 0.0oz. 136.953004rz; 40.20 BMI Method:Stated General Appearance: No Apparent Distress, WD/WN, Chronically ill, Obese HEENT: PERRL/EOMI, Normal ENT Inspection, Pharynx Normal, Moist Mucous Membran es Neck: Full Range of Motion, Normal Inspection, Non Tender Respiratory: Lungs Clear Cardiovascular: Regular Rate, Rhythm Capillary Refill: Less Than 3 Seconds Extremity: Normal Capillary Refill, Normal Inspection, Normal Range of Motion, Non Tender, No Calf Tenderness, No Pedal Edema Neurologic/Psychiatric: Alert, Oriented x3, No Motor/Sensory Deficits, Normal Mood/Affect Skin: Normal Color, Warm/Dry Lymphatic: No Adenopathy Results Lab Laboratory Tests 05/30/19 10:40 05/31/19 03:12 06/01/19 03:27 Assessment/Plan Assessment/Plan Afib paroxysmal -Pt is now off Cardizem gtt -Warfarin lung nodule per CXR -CT of chest shows no lung mass Pneumonia per CT scan -Continue Cefepime UTI with pseudomonus - Cefepime JENNA -on CPAP therapy Morbid obesity TARAH GARVEY DO Jun 01, 2019 06:42
[2019-06-01 08:00] VITALS: BP 158/85
[2019-06-01] MEDS: PRIMIDONE 250MG (MYSOLINE) TAB PO SCH ×3 (08:50→21:55)
[2019-06-01] MEDS: ASPIRIN E.C. 81 MG (ECOTRIN) TAB PO SCH (08:50)
[2019-06-01] MEDS: OMEGA 3 (FISH OIL) 1000 MG CAP PO SCH ×3 (08:50→21:55)
[2019-06-01] MEDS: LORATADINE (CLARITIN) 10 MG TAB PO SCH (08:50)
[2019-06-01] MEDS: PRASUGREL 10 MG (EFFIENT) TABLET PO SCH (08:50)
[2019-06-01] MEDS: amLODIPine 5 MG (NORVASC) TAB PO SCH (08:50)
[2019-06-01] MEDS: lisINopril 20 MG (PRINIVIL) TABLET PO SCH (08:51)
[2019-06-01] MEDS: GABAPENTIN 400 MG (NEURONTIN) CAP PO SCH ×4 (08:51→21:55)
[2019-06-01] MEDS ORDERED: CEFEPIME 2,000 MG/SWFI 20 ML IV PUSH IV SCH ×2 (09:00)
--- NOTE | 2019-06-01 09:17 | Cardiology Progress Note ---
Subjective Date Seen by Provider: Jun 01, 2019 Time Seen by Provider: 09:16 Subjective/Events-last exam Patient is laying down in bed, feeling well, felt a little shaky yesterday after her inhaler Review of Systems General: No Chills, No Night Sweats, No Fatigue, No Malaise, No Appetite, No Other HEENT: No Head Aches, No Visual Changes, No Eye Pain, No Ear Pain, No Dysphasia, No Sinus Congestion, No Post Nasal Drip, No Sore Throat, No Other Pulmonary: No Dyspnea, No Cough, No Pleuritic Chest Pain, No Other Cardiovascular: No: Chest Pain, Palpitations, Orthopnea, Paroxysmal Noc. Dyspnea, Edema, Lt Headedness, Other Objective-Cardiology Exam Last Set of Vital Signs Vital Signs 05/30/19 06/01/19 06/01/19 22:30 03:40 07:00 Temp 36.2 Pulse 95 Resp 18 B/P (MAP) 146/79 (101) Pulse Ox 100 O2 Delivery NIV CPAP FiO2 21 Capillary Refill : Less Than 3 Seconds I&O Intake and Output 06/01/19 00:00 Intake Total 1900 ml Output Total 400 ml Balance 1500 ml Intake Oral 1900 ml Output Urine Total 400 ml # Voids 5 # Bowel Movements 1 General: Alert, Oriented X3, Cooperative HEENT: Atraumatic, PERRLA Neck: Supple, No JVD, No Thyromegaly Lungs: Clear to Auscultation, Normal Air Movement Heart: Regular Rate, Normal S1, Normal S2, No Murmurs Abdomen: Normal Bowel Sounds, Soft, No Tenderness, No Hepatosplenomegaly, No Masses Extremities: No Clubbing, No Cyanosis, No Edema, Normal Pulses, No Tenderness/Swelling Skin: No Rashes, No Breakdown, No Significant Lesion Neuro: Normal Gait, Normal Speech, Strength at 5/5 X4 Ext, Normal Tone, Sensation Intact Psych/Mental Status: Mental Status NL, Mood NL Results Lab Laboratory Tests 06/01/19 03:27 A/P-Cardiology Admission Diagnosis Chest pain Paroxysmal atrial fibrillation Coronary artery disease Hypertension Assessment/Plan Chest pain nonspecific etiology, reporting improvement. Continue to monitor Paroxysmal atrial fibrillation, has failed sotalol, was intolerant to amiodaro ne, failed Multaq, has been managed by Dr. Russell and scheduled for A. fib ablation on June 14, started on Dofetilied. Continue to monitor QT interval Coronary artery disease, underwent cardiac catheterization November 22, 2018 revealing severe mid LAD stenosis of 80-90 percent, very tortuous LAD with difficult visualization. Underwent stent placement using resolute integrity 2.5 x 26 mm stent. Stopping Effient at this time and continue on aspirin and Coumadin UTI- was started on Cipro, Managed by primary care team lung nodule noted on CXR- Managed and followed by primary care team and Dr. Colmenares History of DVT, first episode occurred about 30 years ago, second episode occurred in July 2015, on the left side while receiving physical therapy for back injury. Maintained on Coumadin Hypertension, restarted home medication, Poorly controlled, persistent elevated BP since 2019,May benefit from increasing dose of Lisinopril. continue monitoring blood pressure Hyperlipidemia, continue to monitor lipids Back pain and joint pain, history of Charcot joint, currently on oxycodone managed by Dr. Hernandez and Dr. Goode Mild obstructive sleep apnea, on CPaP now, followed and managed by Dr. Colmenares Diabetes mellitus, followed and managed by primary care physician. BMI is 40, we discussed weight loss and exercise. Right lower extremity pain, had mildly abnormal ZURI in 2016, I will reevaluate ZURI Clinical Quality Measures AMI/AHF: ASA po Prior to arrival: No DVT/VTE Risk/Contraindication: Risk Factor Score Per Nursin RFS Level Per Nursing on Admit: 4+=Very High CHARLY JOSE MD Jun 01, 2019 09:17
[2019-06-01] MEDS: RT-ADVAIR HFA 115/21 MCG PER PUFF IH SCH (09:45)
[2019-06-01] MEDS: DOFETILIDE 125 MCG (TIKOSYN) CAPSULE PO SCH ×2 (09:56→21:56)
--- NOTE | 2019-06-01 11:21 | Progress Note - Hospitalist ---
Subjective HPI/CC On Admission Date Seen by Provider: Jun 01, 2019 Time Seen by Provider: 10:00 CC: A-FIB with RVR HPI: This is a 68yoWF who has had six hospital stays in the past few weeks for A-FIB with RVR, she was assessed to have failed all standard anti-rhythmics so she will be placed on Tikosyn, and will remain in the hospital for three days while closely monitoring for any arrhythmia. Cefepime will be started and Cipro will be discontinued due to the interactions and will monitor closely in the meantime. Objective Exam Vital Signs Vital Signs Date Time Temp Pulse Resp B/P (MAP) Pulse Ox O2 Delivery O2 Flow Rate FiO2 06/01/19 19:42 36.4 90 17 160/97 (118) 96 Room Air 05/30/19 22:30 21 Capillary Refill : Less Than 3 Seconds General Appearance: No Apparent Distress, WD/WN, Chronically ill Respiratory: Chest Non Tender, Lungs Clear, Normal Breath Sounds, No Accessory Muscle Use, No Respiratory Distress Cardiovascular: Regular Rate, Rhythm, No Edema, No Gallop, No JVD, No Murmur, Normal Peripheral Pulses Neurologic/Psychiatric: Alert, Oriented x3, No Motor/Sensory Deficits, Normal Mood/Affect Results/Procedures Lab Laboratory Tests 06/01/19 03:27 Patient resulted labs reviewed. Assessment/Plan Assessment and Plan Assess & Plan/Chief Complaint Assessment: AF w/RVR placed on Tikosyn now needs close monitoring for 3 days PAF OAC with Coumadin INR monitored CAD s/p stent placement summer 2018 Bilateral Charcot feet on chronic pain meds Neuropathy Polypharmacy DM HTN HLP Difficulty with coping UTI Pseudomonas placed on Cefepime and will be done at time of DC no need for additional abx and consulted Dr Pickering Plan: Dr Russell consultation is appreciated Warfarin maintained Monitor closely Cefepime until DC then completed treatment Diagnosis/Problems Diagnosis/Problems (1) Atrial fibrillation with rapid ventricular response Status: Acute (2) CAD (coronary artery disease) Status: Chronic (3) UTI (urinary tract infection) Status: Acute (4) Angina pectoris Status: Chronic (5) Debility (6) Pseudomonas infection (7) JENNA (obstructive sleep apnea) Status: Chronic (8) Chronic anticoagulation Status: Chronic (9) Polypharmacy Status: Chronic (10) Charcot foot due to diabetes mellitus (11) Adult BMI 40.0-44.9 kg/sq m Status: Chronic (12) DVT prophylaxis Status: Acute (13) Chronic mental illness Status: Chronic (14) Insulin dependent diabetes mellitus with complications Status: Chronic (15) Presence of stent in coronary artery in patient with coronary artery disease Status: Chronic (16) Stented coronary artery Status: Acute Clinical Quality Measures AMI/AHF: ASA po Prior to arrival: No DVT/VTE Risk/Contraindication: Risk Factor Score Per Nursin RFS Level Per Nursing on Admit: 4+=Very High SAWYER TELLO DO Jun 01, 2019 11:21
[2019-06-01] MEDS: VITAMIN D3 1,000 UNITS (CHOLECALCIFEROL) TABLET PO SCH (11:48)
[2019-06-01 12:00] VITALS: BP 161/99
--- NOTE | 2019-06-01 13:15 | Cardiology Progress Note ---
Cardiology SOAP Progress Note Subjective: Late entry: Patient was seen on 05/31/2019. No cardiac complaints. Objective: I&O/Vital Signs 06/02/19 06/02/19 06/02/19 06/02/19 07:00 08:00 09:00 12:00 Temp 36.5 36.5 Pulse 82 82 91 Resp 16 18 B/P (MAP) 153/90 (111) 173/102 (125) Pulse Ox 97 97 96 O2 Delivery Room Air Room Air Room Air 06/02/19 06/02/19 06/02/19 12:45 13:00 13:05 Pulse 110 B/P (MAP) 152/86 (108) 06/02/19 00:00 Intake Total 3705 ml Output Total 2000 ml Balance 1705 ml Weight (Pounds): 302 Weight (Ounces): 0.0 Weight (Calculated Kilograms): 136.971189 Constitutional: appears stated age; No apparent distress; well-developed, well- nourished Respiratory: chest is bilaterally symmetric, lungs clear to auscultation Cardiovascular: regular rate-rhythm, S1 and S2 Gastrointestional: soft, audible bowel sounds; No spleenomegaly Extremities: normal range of motion, non-tender, normal inspection; No clubbing, No cyanosis; no lower extremity edema bilateral; No significant edema Neurologic/Psychiatric: no motor/sensory deficits, alert, normal mood/affect, oriented x 3, power is 5/5 both on sides Skin: normal color; No rash, No ulcerations Results/Procedures: Labs Laboratory Tests 06/01/19 19:34: Glucometer 178H 06/02/19 03:35: White Blood Count 6.2, Red Blood Count 4.32L, Hemoglobin 12.2, Hematocrit 37, Mean Corpuscular Volume 85, Mean Corpuscular Hemoglobin 28, Mean Corpuscular Hemoglobin Concent 33, Red Cell Distribution Width 16.3H, Platelet Count 260, Mean Platelet Volume 9.5, Neutrophils (%) (Auto) 41L, Lymphocytes (%) (Auto) 43, Monocytes (%) (Auto) 10, Eosinophils (%) (Auto) 6, Basophils (%) (Auto) 0, Neutrophils # (Auto) 2.6, Lymphocytes # (Auto) 2.7, Monocytes # (Auto) 0.6, Eosinophils # (Auto) 0.4H, Basophils # (Auto) 0.0, Prothrombin Time 25.5H, INR Comment 2.2H, Sodium Level 142, Potassium Level 3.8, Chloride Level 107, Carbon Dioxide Level 22, Anion Gap 13, Blood Urea Nitrogen 15, Creatinine 0.67, Estimat Glomerular Filtration Rate > 60, BUN/Creatinine Ratio 22, Glucose Level 82, Calcium Level 9.1, Corrected Calcium 9.3, Total Bilirubin 0.1, Aspartate Amino Transf (AST/SGOT) 23, Alanine Aminotransferase (ALT/SGPT) 27, Alkaline Ph osphatase 130, Total Protein 7.0, Albumin 3.8 06/02/19 09:34: Glucometer 168H Microbiology 05/29/19 MRSA Screen - Final, Complete MRSA not isolated 05/29/19 Urine Culture - Final, Complete Pseudomonas aeruginosa Pseudomonas aeruginosa#2 Culture In Progress A/P: Assessment/Dx: Paroxysmal atrial fibrillation with rapid ventricular rate, History of CAD, PCI, next and diabetes, Hyperlipidemia, Hypertension, Obstructive sleep apnea on CPAP therapy, Morbid obesity. Plan: 1. Paroxysmal atrial fibrillation with rapid ventricular rate.: Continue Cardizem 360 mg daily. Continue oral anticoagulation therapy. Start the patient on dofetilide based on the protocol. Continue dofetilide 250 g twice a day; normal QTc interval's. Patient has been either intolerant or refractory to multaq, sotalol and amiodarone. AF ablation is indicated, Symptomatic AF with RVR refractory to AAD. Informed consent taken. Success rate due to obesity and JENNA around 50-60%. Serious complication rate of around 2-2.5%. Patient accepts it and will like to proceed. Atrial fibrillation ablation scheduled on June 14. 2. CAD: Status post PCI with drug-eluting stent to the LAD on 11/30/2018. Defer to Dr Calvert. 3. Diabetes: Defer to the primary team. 4. Hyperlipidemia: High-dose statin therapy. 5. Hypertension: Continue outpatient medical therapy. Thank you for your consultation. Please call me if you have any questions. My Russell MD, FACP, FACC, FSCAI, FHRS, CCDS Interventional Cardiology Cardiac Electrophysiology Vascular Medicine and Endovascular Interventions Clinical Quality Measures AMI/AHF: ASA po Prior to arrival: Janiya Loyola MD Jun 01, 2019 13:15
--- NOTE | 2019-06-01 14:11 | CONSULTATION REPORT ---
DATE OF SERVICE: 06/01/2019 ATTENDING PHYSICIAN: Dr. Rosales. SUMMARY: A 68-year-old white lady known to me for many years with severe mixed incontinence, ISD, overactive bladder, nocturnal enuresis, obesity, medically high risk who has been handled with bladder training, Kegel exercise, Myrbetriq 50 every morning, Tofranil 50 at night, and VESIcare 10 at 4 p.m. daily along with Macrodantin 100 daily to prevent UTIs. She has previously refused referral to and has been having a lot of cardiac issue among which arrhythmia. She is in the cardiac step down, being treated for that. IMPRESSION: Severe mixed incontinence, intrinsic sphincter deficiency, overactive bladder, nocturia, and enuresis. PLAN: The patient has an appointment with me on 06/29/2019 and I told her to keep that appointment. I started talking to her about Botox injection cystoscopically, which may not be too invasive in her situation. We will talk about it for more details in my office on 06/29/2018. Job ID: [id number] DocumentID: [id number] Dictated Date: 06/01/2019 13:48:53 Mortgage Loan Officer Date: 06/01/2019 14:10:49 Dictated By: JUSTEN SAMUEL MD
[2019-06-01 16:00] VITALS: BP 154/94
[2019-06-01] MEDS: warFARin 4 MG (COUMADIN) TAB PO SCH (17:14)
[2019-06-01] MEDS: FERROUS SULF 325 MG (IRON) TAB PO SCH (17:14)
[2019-06-01 19:42] VITALS: BP 160/97
[2019-06-01] MEDS: IMIPRAMINE 25 MG (TOFRANIL) TAB PO SCH (21:55)
[2019-06-02] VITALS: BP 152/84
[2019-06-02 03:29] VITALS: BP 129/76
[2019-06-02 03:51] LABS: BASOPHILS % (AUTO) 0 % (0-10); EOSINOPHILS # (AUTO) 0.4 10^3/uL (0.0-0.3); EOSINOPHILS % (AUTO) 6 % (0-10); HEMATOCRIT 37 % (35-52); HEMOGLOBIN 12.2 G/DL (11.5-16.0); LYMPHOCYTES # (AUTO) 2.7 X 10^3 (1.0-4.0); LYMPHOCYTES % (AUTO) 43 % (12-44); MEAN CORPUSCULAR HEMOGLOBIN 28 PG (25-34); MEAN CORPUSCULAR HGB CONC 33 G/DL (32-36); MEAN CORPUSCULAR VOLUME 85 FL (80-99); MEAN PLATELET VOLUME 9.5 FL (7.4-10.4); MONOCYTES # (AUTO) 0.6 X 10^3 (0.0-1.0); MONOCYTES % (AUTO) 10 % (0-12); NEUTROPHILS # (AUTO) 2.6 X 10^3 (1.8-7.8); NEUTROPHILS % (AUTO) 41 % (42-75); PLATELET COUNT 260 10^3/uL (130-400); RED CELL DISTRIBUTION WIDTH 16.3 % (10.0-14.5); WHITE BLOOD COUNT 6.2 10^3/uL (4.3-11.0)
[2019-06-02 04:04] LABS: INR 2.2 (0.8-1.4); PROTHROMBIN TIME PATIENT 25.5 SEC (12.2-14.7)
[2019-06-02 04:09] LABS: ALANINE AMINOTRANSFERASE 27 U/L (0-55); ALBUMIN 3.8 GM/DL (3.2-4.5); ALKALINE PHOSPHATASE 130 U/L (40-136); BILIRUBIN,TOTAL 0.1 MG/DL (0.1-1.0); BUN/CREATININE RATIO 22; CALCIUM 9.1 MG/DL (8.5-10.1); CARBON DIOXIDE 22 MMOL/L (21-32); CHLORIDE 107 MMOL/L (98-107); CREATININE SERUM 0.67 MG/DL (0.60-1.30); GFR ESTIMATED > 60; GLUCOSE 82 MG/DL (70-105); POTASSIUM 3.8 MMOL/L (3.6-5.0); SODIUM 142 MMOL/L (135-145)
[2019-06-02] MEDS: inSUlin ASPART (NovoLOG) 1 UNIT/0.01 ML (CHARGE PER UNIT) SC SCH ×2 (06:15→11:33)
[2019-06-02] MEDS: MULTIVIT W/MINERALS TAB (THERAGRAN M) PO SCH (06:19)
[2019-06-02] MEDS: oxyCODONE/APAP 10/325MG (PERCOCET 10) TABLET PO PRN ×2 (06:19→11:40)
[2019-06-02] MEDS: CALCIUM CARB + VIT D 600 MG (CALCARB + D) TAB PO SCH (06:20)
[2019-06-02] MEDS: TROSPIUM 20 MG (SANCTURA) TAB PO SCH (06:20)
[2019-06-02] MEDS: VENlafaxine XR 75 MG (EFFEXOR XR) CAP PO SCH (06:20)
[2019-06-02 08:00] VITALS: BP 153/90
[2019-06-02] MEDS: ASPIRIN E.C. 81 MG (ECOTRIN) TAB PO SCH (08:25)
[2019-06-02] MEDS: GABAPENTIN 400 MG (NEURONTIN) CAP PO SCH (08:26)
[2019-06-02] MEDS: PRIMIDONE 250MG (MYSOLINE) TAB PO SCH (08:26)
[2019-06-02] MEDS: OMEGA 3 (FISH OIL) 1000 MG CAP PO SCH (08:26)
[2019-06-02] MEDS: amLODIPine 5 MG (NORVASC) TAB PO SCH (08:26)
[2019-06-02] MEDS: lisINopril 20 MG (PRINIVIL) TABLET PO SCH (08:26)
[2019-06-02] MEDS: PRASUGREL 10 MG (EFFIENT) TABLET PO SCH (08:27)
[2019-06-02] MEDS: LORATADINE (CLARITIN) 10 MG TAB PO SCH (08:27)
[2019-06-02] MEDS: DOFETILIDE 125 MCG (TIKOSYN) CAPSULE PO SCH (09:27)
[2019-06-02] MEDS ORDERED: AMLO5TAB9 PO (10:55)
--- NOTE | 2019-06-02 11:09 | Discharge Summary ---
Discharge Summary Hospital Course Was the Problem List Reviewed?: Yes Problems/Dx: (1) Atrial fibrillation with rapid ventricular response Status: Acute (2) CAD (coronary artery disease) Status: Chronic (3) UTI (urinary tract infection) Status: Acute (4) Angina pectoris Status: Chronic (5) Debility Status: Chronic (6) Pseudomonas infection Status: Acute (7) JENNA (obstructive sleep apnea) Status: Chronic (8) Chronic anticoagulation Status: Chronic (9) Polypharmacy Status: Chronic (10) Charcot foot due to diabetes mellitus Status: Chronic (11) Adult BMI 40.0-44.9 kg/sq m Status: Chronic (12) DVT prophylaxis Status: Acute (13) Chronic mental illness Status: Chronic (14) Insulin dependent diabetes mellitus with complications Status: Chronic (15) Presence of stent in coronary artery in patient with coronary artery disease Status: Chronic (16) Stented coronary artery Status: Acute Hospital Course Date of Admission: May 29, 2019 at 21:41 Admission Diagnosis : Family Physician/Provider: Delia Triana MD Date of Discharge: 06/02/19 Discharge Diagnosis: [ ] Hospital Course: patient was admitted with chest discomfort and atrial fibrillation. She was placed on Tikosyn and converted to sinus rhythm and tolerated the medication we ll. The patient did have a urinary trac tract infection and grew out Pseudomonas sensitive to cefepime. She was treated with this and this was discontinued at the time of discharge. Chest x-ray showed possible lung nodule this was not found on CT chest and was felt to be a nipple shadow. Her metformin was held because of the contrast used. At the time of discharge the patient was stable to go home and without complaint. She did have some questions about a hx of post-menopausal bleeding for which she had seen DR. Valdivia before and had an IUD placed- she hasn't been bleeding now, but it was encouraged that she follow up with him after d/c. Labs and Pending Lab Test: Laboratory Tests 06/01/19 14:58: Glucometer 109 06/01/19 19:34: Glucometer 178H 06/02/19 03:35: White Blood Count 6.2, Red Blood Count 4.32L, Hemoglobin 12.2, Hematocrit 37, Mean Corpuscular Volume 85, Mean Corpuscular Hemoglobin 28, Mean Corpuscular Hemoglobin Concent 33, Red Cell Distribution Width 16.3H, Platelet Count 260, Mean Platelet Volume 9.5, Neutrophils (%) (Auto) 41L, Lymphocytes (%) (Auto) 43, Monocytes (%) (Auto) 10, Eosinophils (%) (Auto) 6, Basophils (%) (Auto) 0, Neutrophils # (Auto) 2.6, Lymphocytes # (Auto) 2.7, Monocytes # (Auto) 0.6, Eosinophils # (Auto) 0.4H, Basophils # (Auto) 0.0, Prothrombin Time 25.5H, INR Comment 2.2H, Sodium Level 142, Potassium Level 3.8, Chloride Level 107, Carbon Dioxide Level 22, Anion Gap 13, Blood Urea Nitrogen 15, Creatinine 0.67, Estimat Glomerular Filtration Rate > 60, BUN/Creatinine Ratio 22, Glucose Level 82, Calcium Level 9.1, Corrected Calcium 9.3, Total Bilirubin 0.1, Aspartate Amino Transf (AST/SGOT) 23, Alanine Aminotransferase (ALT/SGPT) 27, Alkaline Phosphatase 130, Total Protein 7.0, Albumin 3.8 06/02/19 09:34: Glucometer 168H Microbiology 05/29/19 MRSA Screen - Final, Complete MRSA not isolated 05/29/19 Urine Culture - Preliminary, Resulted Pseudomonas aeruginosa Culture In Progress Home Meds Active Amlodipine Besylate 5 Mg Tablet 5 Mg PO DAILY 30 Days Tikosyn (Dofetilide) 250 Mcg Capsule 250 Mcg PO BID Amiodarone HCl 200 Mg Tablet 200 Mg PO BID Reported Culturelle (Lactobacillus Rhamnosus GG) 1 Each Capsule 1 Cap PO DAILY PRN Tylenol Extra Strength (Acetaminophen) 500 Mg Tablet 1,000 Mg PO Q6H PRN Triamcinolone Acetonide 0.1% Cream (Triamcinolone Acet) 15 Gm Cr TP BID PRN Pepcid (Famotidine) 20 Mg Tablet 20 Mg PO DAILY PRN Percocet 10-325 mg Tablet (Oxycodone HCl/Acetaminophen) 1 Each Tablet 1 Tab PO EVERY 4-6 HOURS PRN Hydroxyzine HCl 10 Mg Tablet 10 Mg PO TID Diltiazem 24Hr ER (Diltiazem HCl) 360 Mg Cap.er.24h 360 Mg PO DAILY Aspirin EC (Aspirin) 81 Mg Tablet.dr 81 Mg PO DAILY Nitrofurantoin (Nitrofurantoin Macrocrystal) 100 Mg Capsule 100 Mg PO DAILY Vesicare (Solifenacin Succinate) 10 Mg Tablet 10 Mg PO 1600 Myrbetriq (Mirabegron) 50 Mg Tab.er.24h 50 Mg PO DAILY Mysoline (Primidone) 250 Mg Tablet 250 Mg PO TID Warfarin Sodium 4 Mg Tablet 2 Mg PO MOWE@1600 Warfarin Sodium 4 Mg Tablet 4 Mg PO SUTUTHFRSA@1600 Cyclobenzaprine HCl 10 Mg Tablet 10 Mg PO TID Metformin HCl 1,000 Mg Tablet 1,000 Mg PO BID Atorvastatin Calcium 80 Mg Tablet 80 Mg PO HS Prasugrel HCl 10 Mg Tablet 10 Mg PO DAILY Miralax (Polyethylene Glycol 3350) 17 Gm Powd.pack 17 Gm PO DAILY PRN Ferrous Sulfate 325 Mg Tablet 325 Mg PO 1800 Zyrtec (Cetirizine HCl) 10 Mg Tablet 10 Mg PO DAILY Venlafaxine HCl ER (Venlafaxine HCl) 75 Mg Cap.er.24h 75 Mg PO DAILY Fish Oil 1,000 mg Capsule (Minco 3 Polyunsat Fatty Acids) 1,000 Mg Cap 1,000 Mg PO TID Gabapentin 800 Mg Tablet 800 Mg PO QID Breo Ellipta 200-25 Mcg INH (Fluticasone/Vilanterol) 1 Each Blst.w.dev 1 Puff INH DAILY Lisinopril 20 Mg Tablet 20 Mg PO DAILY Imipramine HCl 50 Mg Tablet 50 Mg PO HS Vitamin D3 (Cholecalciferol (Vitamin D3)) 1,000 Unit Capsule 2,000 Unit PO 1200 Osteo Bi-Flex Caplet (Glucosamine/D3/Boswellia Nellie) 1 Each Tablet 1 Tab PO BID Multivitamins with Minerals (Multivitamin with Minerals) 1 Each Tablet 1 Tab PO DAILY Lantus (Insulin Glargine,Hum.rec.anlog) 100 Unit/1 Ml Vial 20 Unit SQ HS Calcium 500 + Vit D Caplet (Calcium Carbonate/Vitamin D3) 1 Each Tablet 1 Tab PO BID Novolog Flexpen (Insulin Aspart) 300 Units/3 Ml Solution 6 Units SQ TIDAC Refresh Lacri-Lube Ointment (Mineral Oil/Petrolatum,White) 3.5 Gm Oint...g. OU HS Artificial Tears Drops (Polyvinyl Alcohol/Povidone) 15 Ml Drops 2 Drops OU Q2H PRN Assessment/Pt Instructions atrial fibrillation now in sinus rhythm Debility Pseudomonas urinary tract infection Type II diabetes with Charcot feet Morbid obesity Obstructive sleep apnea Chronic urinary tract infection with incontinence Discharge Planning: >30 minutes discharge planning Discharge Instructions Discharge Diet: ADA Diet Activity as Tolerated: Yes Orders & Referrals home health Dr. VALDIVIA Consultations Dr. Raheel Russell Discharge Physical Examination Vital Signs Vital Signs Date Time Temp Pulse Resp B/P (MAP) Pulse Ox O2 Delivery O2 Flow Rate FiO2 06/02/19 09:00 97 Room Air 06/02/19 08:00 36.5 82 16 153/90 (111) 05/30/19 22:30 21 General Appearance: No Apparent Distress, WD/WN HEENT: Normal ENT Inspection Respiratory: Chest Non Tender, Lungs Clear, Normal Breath Sounds, No Accessory Muscle Use, No Respiratory Distress Cardiovascular: Regular Rate, Rhythm, No Gallop, No JVD, No Murmur, Normal Peripheral Pulses Gastrointestinal: Normal Bowel Sounds, No Organomegaly, Non Tender, Soft Extremity: Pedal Edema Skin: Normal Color, Warm/Dry Neurologic/Psychiatric: Alert, Oriented x3, No Motor/Sensory Deficits, Normal Mood/Affect Allergies: Coded Allergies: amylase (Verified Allergy, Unknown, 08/07/15) black cohosh (Verified Allergy, Unknown, 08/07/15) cellulase (Verified Allergy, Unknown, 08/07/15) glyburide (Verified Allergy, Unknown, 08/07/15) isosorbide (Verified Allergy, Unknown, 08/07/15) lipase (Verified Allergy, Unknown, 08/07/15) protease (Verified Allergy, Unknown, 08/07/15) Copy Copies To 1: DELIA TRIANA MD Discharge Summary Date of Admission May 29, 2019 at 21:41 Date of Discharge June 02, 2019 Discharge Date: Jun 02, 2019 Discharge Time: 13:00 Admission Diagnosis Assessment: AF w/RVR placed on Tikosyn now needs close monitoring for 3 days PAF OAC with Coumadin INR ok today CAD s/p stent placement summer 2018 Bilateral Charcot feet on chronic pain meds Neuropathy Polypharmacy DM HTN HLP Difficulty with coping UTI Pseudomonas placed on Cefepime Plan: Dr Russell consultation is appreciated Warfarin maintained Monitor closely Meropenem Consults/Procedures Consulations Dr. Alf Russell Procedures CT chest Discharge Diagnosis atrial fibrillation Coronary artery disease Hypertension Obstructive sleep apnea Debility Type II diabetes on insulin Urinary tract infection with Pseudomona Chronic urinary incontinence (1) Atrial fibrillation with rapid ventricular response Status: Acute (2) CAD (coronary artery disease) Status: Chronic (3) UTI (urinary tract infection) Status: Acute (4) Angina pectoris Status: Chronic (5) Debility Status: Chronic (6) Pseudomonas infection Status: Acute (7) JENNA (obstructive sleep apnea) Status: Chronic (8) Chronic anticoagulation Status: Chronic (9) Polypharmacy Status: Chronic (10) Charcot foot due to diabetes mellitus Status: Chronic (11) Adult BMI 40.0-44.9 kg/sq m Status: Chronic (12) DVT prophylaxis Status: Acute (13) Chronic mental illness Status: Chronic (14) Insulin dependent diabetes mellitus with complications Status: Chronic (15) Presence of stent in coronary artery in patient with coronary artery disease Status: Chronic (16) Stented coronary artery Status: Acute Clinical Quality Measures AMI/AHF: ASA po Prior to arrival: No DVT/VTE Risk/Contraindication: Risk Factor Score Per Nursin RFS Level Per Nursing on Admit: 4+=Very High AMANDEEP VILLANUEVA MD Jun 02, 2019 11:04
[2019-06-02] MEDS: VITAMIN D3 1,000 UNITS (CHOLECALCIFEROL) TABLET PO SCH (11:40)
[2019-06-02 12:00] VITALS: BP 173/102
--- NOTE | 2019-06-02 12:16 | NUR ---
Home health orders put in by , this nurse called [facility] to discuss referral with them. Nicole ZAPATA with [facility] called me back, she stated that they have already been seeing the patient but would continue and asked me to please let the patient know that they would be coming to her home tuesday morning.
[2019-06-02 12:45] VITALS: BP 152/86
--- NOTE | 2019-06-02 12:55 | NUR ---
IV removed by this nurse, tip intact, gauze and medipore tape applied to site. entire discharge packet discussed with patient. patient advised that would like to see her for a follow up appointment in 4-6 weeks to call tuesday morning and schedule an appointment. Patient also advised that would like her to follow up with . Patient stated that all of her questions have been answered. Patients friend is her ride home.
--- NOTE | 2019-06-02 13:15 | NUR ---
Bennie AVILA took patient to entrance via wheel chair, patient leaving with her close friend who is driving her home.
--- NOTE | 2019-06-02 15:46 | Cardiology Progress Note ---
Cardiology SOAP Progress Note Subjective: No cardiac complaint. Objective: I&O/Vital Signs 06/02/19 06/02/19 06/02/19 06/02/19 07:00 08:00 09:00 12:00 Temp 36.5 36.5 Pulse 82 82 91 Resp 16 18 B/P (MAP) 153/90 (111) 173/102 (125) Pulse Ox 97 97 96 O2 Delivery Room Air Room Air Room Air 06/02/19 06/02/19 06/02/19 12:45 13:00 13:05 Pulse 110 B/P (MAP) 152/86 (108) 06/02/19 00:00 Intake Total 3705 ml Output Total 2000 ml Balance 1705 ml Weight (Pounds): 302 Weight (Ounces): 0.0 Weight (Calculated Kilograms): [id number] Constitutional: appears stated age; No apparent distress; well-developed, well- nourished Respiratory: chest is bilaterally symmetric, lungs clear to auscultation Cardiovascular: regular rate-rhythm, S1 and S2 Gastrointestional: soft, audible bowel sounds; No spleenomegaly Extremities: normal range of motion, non-tender, normal inspection; No clubbing, No cyanosis; no lower extremity edema bilateral; No significant edema Neurologic/Psychiatric: no motor/sensory deficits, alert, normal mood/affect, oriented x 3, power is 5/5 both on sides Skin: normal color; No rash, No ulcerations Results/Procedures: Labs Laboratory Tests 06/01/19 19:34: Glucometer 178H 06/02/19 03:35: White Blood Count 6.2, Red Blood Count 4.32L, Hemoglobin 12.2, Hematocrit 37, Mean Corpuscular Volume 85, Mean Corpuscular Hemoglobin 28, Mean Corpuscular Hemoglobin Concent 33, Red Cell Distribution Width 16.3H, Platelet Count 260, Mean Platelet Volume 9.5, Neutrophils (%) (Auto) 41L, Lymphocytes (%) (Auto) 43, Monocytes (%) (Auto) 10, Eosinophils (%) (Auto) 6, Basophils (%) (Auto) 0, Neutrophils # (Auto) 2.6, Lymphocytes # (Auto) 2.7, Monocytes # (Auto) 0.6, Eosinophils # (Auto) 0.4H, Basophils # (Auto) 0.0, Prothrombin Time 25.5H, INR Comment 2.2H, Sodium Level 142, Potassium Level 3.8, Chloride Level 107, Carbon Dioxide Level 22, Anion Gap 13, Blood Urea Nitrogen 15, Creatinine 0.67, Estimat Glomerular Filtration Rate > 60, BUN/Creatinine Ratio 22, Glucose Level 82, Calcium Level 9.1, Corrected Calcium 9.3, Total Bilirubin 0.1, Aspartate Amino T ransf (AST/SGOT) 23, Alanine Aminotransferase (ALT/SGPT) 27, Alkaline Phosphatase 130, Total Protein 7.0, Albumin 3.8 06/02/19 09:34: Glucometer 168H Microbiology 05/29/19 MRSA Screen - Final, Complete MRSA not isolated 05/29/19 Urine Culture - Final, Complete Pseudomonas aeruginosa Pseudomonas aeruginosa#2 Culture In Progress A/P: Assessment/Dx: Paroxysmal atrial fibrillation with rapid ventricular rate, History of CAD, PCI, next and diabetes, Hyperlipidemia, Hypertension, Obstructive sleep apnea on CPAP therapy, Morbid obesity. Plan: 1. Paroxysmal atrial fibrillation: Patient can be discharged on oral anticoagulation, dofetilide 250 g twice a day, Cardizem 360 mg daily. Patient has been either intolerant or refractory to multaq, sotalol and amiodarone. AF ablation is indicated, Symptomatic AF with RVR refractory to AAD. Informed consent taken. Success rate due to obesity and JENNA around 50-60%. Serious complication rate of around 2-2.5%. Patient accepts it and will like to proceed. Atrial fibrillation ablation scheduled on June 14. 2. CAD: Status post PCI with drug-eluting stent to the LAD on 11/30/2018. Defer to Dr Calvert. 3. Diabetes: Defer to the primary team. 4. Hyperlipidemia: High-dose statin therapy. 5. Hypertension: Continue outpatient medical therapy. Thank you for your consultation. Please call me if you have any questions. My Russell MD, FACP, FACC, FSCAI, FHRS, CCDS Interventional Cardiology Cardiac Electrophysiology Vascular Medicine and Endovascular Interventions Clinical Quality Measures AMI/AHF: ASA po Prior to arrival: Janiya Loyola MD Jun 02, 2019 15:46
--- NOTE | 2019-06-05 09:57 | Physician Query Clarification ---
PQ-Uncertain Diagnosis Admission/Discharge Admission Date: May 29, 2019 at 21:41 Discharge Date: Jun 02, 2019 at 13:15 The medical record reflects the following clinical scenario: History/Risk Factors: Afib, lung nodule Clinical Findings: lung nodule per CXR Pulmo progress note on 06/01/2019 : Pneumonia per CT scan -Continue Cefepime CT scan : Minimal basilar and left upper lobe infiltrate. Treatment: Cefepime Question: Is pneumonia a clinically valid diagnosis? [diagnosis] was documented in the [dates and type of documents] with no further documentation in the medical record. Pneumonia was documented only in the Pulomonology Progress note on 06/01/2019 with no further documentation in the medical record. Please document a response in Progress Note or Discharge Summary. 1. Yes, clinically valid, condition resolved. 2. No, condition ruled out. 3. Other, with explanation of clinical findings. 4. Undetermined, no explanation for clinical findings. PHYSICIAN RESPONSE Diagnosis clinically valid: Other, explanation/clinical finding Explanation of clincal finding Probable edema in lung field on CT- clinically no pneumonia on CXR or exam Please remember a lack of response to the above will prompt a phone page by CDI/Coding staff. In responding to this query, please exercise your independent professional judgment. The purpose of this communication is to more accurately reflect the complexity of your patients condition. The fact that a question is asked does not imply that any particular answer is desired or expected. Thank you for your timely response to this clarification. Requestors name: Mariusz THIS PHYSICIAN QUERY FORM IS A PERMANENT PART OF THE MEDICAL RECORD JOSE PERLA Jun 05, 2019 09:57 AMANDEEP VILLANUEVA MD Jun 05, 2019 10:29
== END 2019-06-02 13:15 | disposition home or self-care (01) | DRG 309 ==
LOC: EDUNIT# 19:57 → ER 19:57 → ICU 21:41 → CSD 05-31 12:00
PROVIDERS: ADMIT Internal Medicine; ATTEND Internal Medicine
DX: I48.0 Paroxysmal atrial fibrillation (principal); N39.0 Urinary tract infection, site not specified; Z68.41 Body mass index [BMI] 40.0-44.9, adult; J81.1 Chronic pulmonary edema; I25.119 Atherosclerotic heart disease of native coronary artery with unspecified angina pectoris; E66.01 Morbid (severe) obesity due to excess calories; G47.33 Obstructive sleep apnea (adult) (pediatric); E11.610 Type 2 diabetes mellitus with diabetic neuropathic arthropathy; E11.40 Type 2 diabetes mellitus with diabetic neuropathy, unspecified; J45.909 Unspecified asthma, uncomplicated; I10 Essential (primary) hypertension; K21.9 Gastro-esophageal reflux disease without esophagitis; F41.9 Anxiety disorder, unspecified; F32.9 Major depressive disorder, single episode, unspecified; E78.5 Hyperlipidemia, unspecified; M19.90 Unspecified osteoarthritis, unspecified site; M54.9 Dorsalgia, unspecified; I25.2 Old myocardial infarction; B96.5 Pseudomonas (aeruginosa) (mallei) (pseudomallei) as the cause of diseases classified elsewhere; Z86.718 Personal history of other venous thrombosis and embolism; Z79.01 Long term (current) use of anticoagulants; Z87.891 Personal history of nicotine dependence; Z95.5 Presence of coronary angioplasty implant and graft
CPT/HCPCS: 36415; 71045; 71260; 80048; 80053; 80061; 81000; 82962; 83735; 83874; 84100; 84484; 85025; 85610; 85730; 87077; 87081; 87088; 87186; 93005; 93041; 94640; 94664; 96374

== ENCOUNTER 2019-06-21 21:25 | Emergency (ER) | payer MEDICARE, MEDICAID ==
[~2019-06-21] VITALS: Ht 177.8 cm; Wt 128.1 kg
[~2019-06-21 21:25] MED LIST changes: +ACET-93 PO; +AMLO5TAB9 PO; +CHOL200025 PO; +DILT360T11 PO; +DOFE250C PO; +FLUT1BLS IH; +GLUC-219 PO; +INSU100V16 SQ; +MULT-974 PO; +SENN1TAB93 PO; +SOLI10TA7 PO
[2019-06-21] MEDS ORDERED: NS IV 1000 ML 1,000 ML IV SCH (21:35)
--- NOTE | 2019-06-21 21:44 | ED Cardiac General ---
History of Present Illness General Chief Complaint: Cardiac/General Problems Stated Complaint: A-FIB Source: patient, EMS Exam Limitations: no limitations History of Present Illness Date Seen by Provider: Jun 21, 2019 Time Seen by Provider: 21:05 Initial Comments Patient arrives by EMS from home with chief complaint of around 6:30 tonight she started expressing some heart palpitations and racing heart, increased weakness and tiredness. She has a history of atrial fibrillation and last week when in for an ablation with Dr. Russell but they discovered on echocardiogram she still had a intracardiac thrombus. Her INR on warfarin 4 mg daily was 2.1 yesterday. The goal is to keep her between 2.5 and 3.0. She is known to Dr. Calvert for primary cardiology. She had a stent placed in November 2018 in her LAD. She is having some mild pressure in her right axilla this started about same time as the palpitations. She's had no fevers, cough. She's not having any new swelling in her hands or feet nor unexpected weight gain. She has been taking her medications routinely, Cardizem 360 mg extended release and Tikosyn. She is on Effient and aspirin. She also would like her urine checked because she's been having dysuria for the past couple days and suspects she has a UTI. Allergies and Home Medications Allergies Coded Allergies: amylase (Verified Allergy, Unknown, 08/07/15) black cohosh (Verified Allergy, Unknown, 08/07/15) cellulase (Verified Allergy, Unknown, 08/07/15) glyburide (Verified Allergy, Unknown, 08/07/15) isosorbide (Verified Allergy, Unknown, 08/07/15) lipase (Verified Allergy, Unknown, 08/07/15) protease (Verified Allergy, Unknown, 08/07/15) Home Medications Acetaminophen 500 Mg Tablet, 1,000 MG PO DAILY PRN, (Reported) Amlodipine Besylate 5 Mg Tablet, 5 MG PO DAILY Prescribed by: AMANDEEP VILLANUEVA on 06/02/19 1055 Aspirin 81 Mg Tablet.dr, 81 MG PO DAILY, (Reported) Atorvastatin Calcium 80 Mg Tablet, 80 MG PO HS, (Reported) Calcium Carbonate/Vitamin D3 1 Each Tablet, 1 TAB PO BID, (Reported) Cetirizine HCl 10 Mg Tablet, 10 MG PO DAILY, (Reported) Cholecalciferol (Vitamin D3) 2,000 Unit Tablet, 2,000 UNIT PO NOON, (Reported) Cyclobenzaprine HCl 10 Mg Tablet, 10 MG PO TID, (Reported) Cyclosporine 1 Each Droperette, 1 DROP OU BID, (Reported) Diltiazem HCl 360 Mg Tab.er.24h, 360 MG PO DAILY, (Reported) Dofetilide 250 Mcg Capsule, 250 MCG PO BID Prescribed by: Janiya RUSSELL on 05/31/19 1214 Famotidine 20 Mg Tablet, 20 MG PO DAILY PRN for HEARTBURN, (Reported) Ferrous Sulfate 325 Mg Tablet, 325 MG PO 1800, (Reported) Fluticasone/Vilanterol 1 Each Blst.w.dev, 1 EACH IH DAILY, (Reported) Gabapentin 800 Mg Tablet, 800 MG PO QID, (Reported) Glucosamine/D3/Boswellia Nellie 1 Each Tablet, 1 EACH PO BID, (Reported) Hydroxyzine HCl 10 Mg Tablet, 10 MG PO TID, (Reported) Imipramine HCl 50 Mg Tablet, 50 MG PO HS, (Reported) Insulin Aspart 300 Units/3 Ml Solution, 6 UNITS SQ TIDAC, (Reported) Insulin Glargine,Hum.rec.anlog 100 Unit/1 Ml Vial, 20 UNIT SQ HS, (Reported) Lactobacillus Rhamnosus GG 1 Each Capsule, 1 CAP PO DAILY PRN for WHILE TAKING ANTIBIOTICS, (Reported) Lisinopril 20 Mg Tablet, 20 MG PO DAILY, (Reported) Metformin HCl 1,000 Mg Tablet, 1,000 MG PO BID, (Reported) Mineral Oil/Petrolatum,White 3.5 Gm Oint...g., OU HS, (Reported) Mirabegron 50 Mg Tab.er.24h, 50 MG PO DAILY, (Reported) Multivitamin 1 Each Tablet, 1 EACH PO DAILY, (Reported) Nitrofurantoin Macrocrystal 100 Mg Capsule, 100 MG PO HS, (Reported) [place] 3 Polyunsat Fatty Acids 1,000 Mg Cap, 1,000 MG PO TID, (Reported) Oxycodone HCl/Acetaminophen 1 Each Tablet, 1 TAB PO EVERY 4-6 HOURS PRN for PAIN-MODERATE (5-7), (Reported) Polyethylene Glycol 3350 17 Gm Powd.pack, 17 GM PO DAILY PRN for CONSTIPATION- 2ND LINE, (Reported) Polyvinyl Alcohol/Povidone 15 Ml Drops, 2 DROPS OU Q4H PRN for DRY EYES, (Reported) Prasugrel HCl 10 Mg Tablet, 10 MG PO DAILY, (Reported) Primidone 250 Mg Tablet, 250 MG PO TID, (Reported) Sennosides/Docusate Sodium 1 Each Tablet, 1 EACH PO DAILY, (Reported) Solifenacin Succinate 10 Mg Tablet, 10 MG PO 1600, (Reported) Venlafaxine HCl 75 Mg Cap.er.24h, 75 MG PO DAILY, (Reported) Warfarin Sodium 4 Mg Tablet, 4 MG PO SuTuThFrSa@1600, (Reported) Warfarin Sodium 4 Mg Tablet, 2 MG PO MoWe@1600, (Reported) Patient Home Medication List Home Medication List Reviewed: Yes Review of Systems Review of Systems Constitutional: No chills, No diaphoresis EENTM: No Blurred Vision, No Double Vision Respiratory: Denies Cough; SOA With Exertion Cardiovascular: See HPI, Chest Pain (chest pressure); Denies Edema; Irregular Heart Rate, Palpitations; Denies Syncope Gastrointestinal: Denies Abdominal Pain, Denies Constipated, Denies Diarrhea, Denies Nausea Genitourinary: Burning; Denies Discharge Musculoskeletal: No back pain, No joint pain Skin: No pruritus, No rash All Other Systems Reviewed Negative Unless Noted: Yes Past Lvbyddh-Ivmtca-Dfvmii Hx Patient Social History Alcohol Use: Denies Use Recreational Drug Use: No Smoking Status: Former Smoker Type Used: Cigarettes Former Smoker, Quit: May 18, 1980 2nd Hand Smoke Exposure: No Recent Foreign Travel: No Contact w/Someone Who Travel: No Recent Hopitalizations: No Immunizations Up To Date Tetanus Booster (TDap): Unknown PED Vaccines UTD: Yes Date of Pneumonia Vaccine: Feb 13, 2019 Date of Influenza Vaccine: Jan 14, 2019 Seasonal Allergies Seasonal Allergies: No Past Medical History Surgeries: Yes (STENTS PLACED NOVEMBER 2018) Cardiac, Coronary Stent, Eye Surgery, Orthopedic Respiratory: Yes Asthma, Sleep Apnea Currently Using CPAP: Yes Currently Using BIPAP: No Cardiac: Yes Atrial Fibrillation, Chronic Edema/Swelling, Coronary Artery Disease, Deep Vein Thrombosis, Heart Attack, High Cholesterol, Hypertension Neurological: Yes Neuropathy 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 Disorders: Yes Female 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 Disorders: Denies [employer]IST History: Menopausal Sexually Transmitted Disease: No HIV/AIDS: No Genitourinary: Yes UTI-Chronic Gastrointestinal: Yes Gastroesophageal Reflux, Chronic Constipation Musculoskeletal: Yes Degenerate Disk Disease, Arthritis, Chronic Back Pain Endocrine: Yes (MORBID OBESITY) Diabetes, Insulin dep HEENT: Yes Cataract Loss of Vision: Bilateral Hearing Impairment: Denies Cancer: No Uterine Psychosocial: Yes Anxiety, Depression Integumentary: No Blood Disorders: No Adverse Reaction/Blood Tranf: No Family Medical History Cardiovascular disease 19 FATHER 19 MOTHER Colon cancer 19 FATHER 19 MOTHER Diabetes mellitus 19 MOTHER G8 BROTHER G8 SISTER Myocardial infarction 19 FATHER No Pertinent Family Hx Physical Exam Vital Signs Vital Signs - First Documented 06/21/19 21:25 Temp 36.4 Pulse 129 Resp 14 B/P (MAP) 142/107 (119) Pulse Ox 96 O2 Delivery Room Air Capillary Refill : Height, Weight, BMI Height: 5'10.50" Weight: 302lbs. 0.0oz. 136.221230vv; 40.31 BMI Method:Stated General Appearance: No Apparent Distress, Obese HEENT: PERRL/EOMI, Pharynx Normal; No Moist Mucous Membranes Neck: Full Range of Motion, Normal Inspection, Non Tender Respiratory: Chest Non Tender, Lungs Clear, Normal Breath Sounds, No Accessory Muscle Use, No Respiratory Distress Cardiovascular: No JVD, Normal Peripheral Pulses, Irregularly Irregular, Tachycardia Gastrointestinal: Non Tender, Soft Extremity: Normal Capillary Refill, Normal Inspection Neurologic/Psychiatric: Alert, Oriented x3 Skin: Normal Color, Warm/Dry Progress/Results/Core Measures Results/Orders Lab Results Laboratory Tests Test 06/21/19 21:39 06/21/19 21:40 Range/Units Urine Color YELLOW Urine Clarity CLEAR Urine pH 8.0 5-9 Urine Specific [place] 1.010 L 1.016-1.022 Urine Protein NEGATIVE NEGATIVE Urine Glucose (UA) NEGATIVE NEGATIVE Urine Ketones NEGATIVE NEGATIVE Urine Nitrite NEGATIVE NEGATIVE Urine Bilirubin NEGATIVE NEGATIVE Urine Urobilinogen 0.2 < = 1.0 MG/DL Urine Leukocyte Esterase 3+ H NEGATIVE Urine RBC (Auto) NEGATIVE NEGATIVE Urine RBC NONE /HPF Urine WBC 25-50 H /HPF Urine Crystals NONE /LPF Urine Bacteria FEW H /HPF Urine Casts NONE /LPF Urine Mucus NEGATIVE /LPF Urine Culture Indicated YES White Blood Count 9.4 4.3-11.0 10^3/uL Red Blood Count 4.97 4.35-5.85 10^6/uL Hemoglobin 13.8 11.5-16.0 G/DL Hematocrit 42 35-52 % Mean Corpuscular Volume 84 80-99 FL Mean Corpuscular Hemoglobin 28 25-34 PG Mean Corpuscular Hemoglobin Concent 33 32-36 G/DL Red Cell Distribution Width 15.3 H 10.0-14.5 % Platelet Count 299 130-400 10^3/uL Mean Platelet Volume 9.7 7.4-10.4 FL Neutrophils (%) (Auto) 54 42-75 % Lymphocytes (%) (Auto) 34 12-44 % Monocytes (%) (Auto) 8 0-12 % Eosinophils (%) (Auto) 3 0-10 % Basophils (%) (Auto) 0 0-10 % Neutrophils # (Auto) 5.0 1.8-7.8 X 10^3 Lymphocytes # (Auto) 3.2 1.0-4.0 X 10^3 Monocytes # (Auto) 0.8 0.0-1.0 X 10^3 Eosinophils # (Auto) 0.3 0.0-0.3 10^3/uL Basophils # (Auto) 0.0 0.0-0.1 10^3/uL Prothrombin Time 25.3 H 12.2-14.7 SEC INR Comment 2.2 H 0.8-1.4 Activated Partial Thromboplast Time 40 H 24-35 SEC Sodium Level 141 135-145 MMOL/L Potassium Level 3.9 3.6-5.0 MMOL/L Chloride Level 104 98-107 MMOL/L Carbon Dioxide Level 24 21-32 MMOL/L Anion Gap 13 5-14 MMOL/L Blood Urea Nitrogen 15 7-18 MG/DL Creatinine 0.75 0.60-1.30 MG/DL Estimat Glomerular Filtration Rate > 60 BUN/Creatinine Ratio 20 Glucose Level 61 L 70-105 MG/DL Calcium Level 9.9 8.5-10.1 MG/DL Corrected Calcium 9.7 8.5-10.1 MG/DL Magnesium Level 1.9 1.6-2.4 MG/DL Total Bilirubin 0.1 0.1-1.0 MG/DL Aspartate Amino Transf (AST/SGOT) 28 5-34 U/L Alanine Aminotransferase (ALT/SGPT) 43 0-55 U/L Alkaline Phosphatase 190 H 40-136 U/L Myoglobin 21.8 10.0-92.0 NG/ML Troponin I < 0.028 <0.028 NG/ML B-Type Natriuretic Peptide 21.7 <100.0 PG/ML Total Protein 8.3 H 6.4-8.2 GM/DL Albumin 4.3 3.2-4.5 GM/DL My Orders Orders - SIVAKUMAR CONTRERAS Cbc With Automated Diff (06/21/19 21:35) Magnesium (06/21/19 21:35) Chest 1 View, Ap/Pa Only (06/21/19 21:35) Ekg Tracing (06/21/19 21:35) Comprehensive Metabolic Panel (06/21/19 21:35) Myoglobin Serum (06/21/19 21:35) Protime With Inr (06/21/19 21:35) Partial Thromboplastin Time (06/21/19 21:35) O2 (06/21/19 21:35) Monitor-Rhythm Ecg Trace Only (06/21/19 21:35) Ed Iv/Invasive Line Start (06/21/19 21:35) BNP (06/21/19 21:35) Troponin I (06/21/19 21:35) Aspirin Chewable Tablet (Baby Aspirin Ch (06/21/19 21:45) Ed Iv/Invasive Line Start (06/21/19 21:35) Ns Iv 1000 Ml (Sodium Chloride 0.9%) (06/21/19 21:35) Metoprolol Succinate (Xl) Tab (Toprol Xl (06/21/19 22:00) Diltiazem Drip Pre-Mix (Cardizem Drip Pr (06/21/19 22:00) Diltiazem Injection (Cardizem Injection) (06/21/19 22:00) Ua Culture If Indicated (06/21/19 22:09) Diltiazem Injection (Cardizem Injection) (06/21/19 22:15) Urine Culture (06/21/19 21:39) Ceftriaxone For Iv Use (Rocephin For I (06/21/19 23:00) General/Regular (06/21/19 Dinner) Ed Iv/Invasive Line Start (06/22/19 01:10) Ns Iv 1000 Ml (Sodium Chloride 0.9%) (06/22/19 01:10) Medications Given in ED Current Medications Medications Dose Ordered Sig/Ashley Route Start Time Stop Time Status Last Admin Dose Admin Aspirin 324 mg ONCE ONCE PO 06/21/19 21:45 06/21/19 21:46 DC 06/21/19 21:48 324 MG Ceftriaxone Sodium 1000 mg/ Sterile Water 10 ml @ 200 mls/hr ONCE ONCE IV 06/21/19 23:00 06/21/19 23:02 DC 06/21/19 23:04 200 MLS/HR Diltiazem HCl 20 mg ONCE ONCE IVP 06/21/19 22:00 06/21/19 22:11 DC 06/21/19 22:11 10 MG Vital Signs/I&O 06/21/19 06/22/19 21:25 01:20 Temp 36.4 36.4 Pulse 129 110 Resp 14 18 B/P (MAP) 142/107 (119) 99/55 (119) Pulse Ox 96 91 O2 Delivery Room Air Room Air 06/22/19 00:00 Intake Total 1000 ml Balance 1000 ml Progress Progress Note : Time: 21:43 Progress Note Plan to give her a liter fluids and obtain a urinalysis as well as a cardiac workup. Because she's having some pressure in her chest we'll give her some aspirin. Before giving her nitroglycerin since it is minor 1 out of 10 we will just address her underlying atrial fibrillation with rapid ventricular response. Plan to start Cardizem. Initial ECG Impression Date: Jun 21, 2019 Initial ECG Impression Time: 21:47 Initial ECG Rate: 135 Initial ECG Rhythm: A Fib/Flutter Initial ECG Intervals: QT (492) Initial ECG Impression: Atrial Fibrillation w/RVR Initial ECG Comparisson: Changed Comment Atrial flutter with rapid ventricular response. No clinically relevant ST elevation or depression. Prolonged QT interval. Diagnostic Imaging Diagonstic Imaging: Xray Plain Films/CT/US/NM/MRI: chest (1v) Reviewed: Reviewed by Me Consults : Consulting Physician: MEIR NAGY MD FACP FAC CCDS Consults Notes 2144: We discussed her case and ICU diversion. In the past she has received IV Cardizem converted and went home. Prefer to do this today if we can convert her in the ER. Dr. Nagy is okay with this plan. He suggested maybe giving her 50 mg metoprolol ER now times one and then the Cardizem IV and if she converts then she can go home if she is okay with that. Otherwise we would have to transfer her to another facility. Departure Impression Primary Impression: Atrial fibrillation with rapid ventricular response Additional Impression: Chest pressure Disposition: 02 XFER SHT-TRM HOSP Condition: Stable Transfer Transfer Reason: Diversion (ICU) Time Spoke to Accepting Phy: 23:00 Transfer Progress Notes Discussed the case with Dr. Burciaga, steam table associate at [place], [place]. He accepts the patient to cardiac stepdown. Transfer Time: 01:20 Transfer Facility: [place], [place] Method of Transfer: EMS Departure-Patient Inst. Referrals: DELIA TRIANA MD (PCP/Family) Primary Care Physician SIVAKUMAR CONTRERAS Jun 21, 2019 21:44
[2019-06-21] MEDS ORDERED: ASPIRIN 81 MG CHEW (CHILDREN'S ASA) PO ONE (21:45)
[2019-06-21 21:55] LABS: BASOPHILS % (AUTO) 0 % (0-10); EOSINOPHILS # (AUTO) 0.3 10^3/uL (0.0-0.3); EOSINOPHILS % (AUTO) 3 % (0-10); HEMATOCRIT 42 % (35-52); HEMOGLOBIN 13.8 G/DL (11.5-16.0); LYMPHOCYTES # (AUTO) 3.2 X 10^3 (1.0-4.0); LYMPHOCYTES % (AUTO) 34 % (12-44); MEAN CORPUSCULAR HEMOGLOBIN 28 PG (25-34); MEAN CORPUSCULAR HGB CONC 33 G/DL (32-36); MEAN CORPUSCULAR VOLUME 84 FL (80-99); MEAN PLATELET VOLUME 9.7 FL (7.4-10.4); MONOCYTES # (AUTO) 0.8 X 10^3 (0.0-1.0); MONOCYTES % (AUTO) 8 % (0-12); NEUTROPHILS % (AUTO) 54 % (42-75); PLATELET COUNT 299 10^3/uL (130-400); RED CELL DISTRIBUTION WIDTH 15.3 % (10.0-14.5); WHITE BLOOD COUNT 9.4 10^3/uL (4.3-11.0)
[2019-06-21] MEDS ORDERED: dilTIAZem DRIP PRE-MIX 125 ML IV SCH (22:00)
[2019-06-21] MEDS ORDERED: meTOproloL SUCCINATE 50 MG (TOPROL XL) TAB PO SCH (22:00)
--- NOTE | 2019-06-21 22:10 | NUR ---
Verbal from Dr. Blanchard to give 10 mg bolus of cardizem and start drip at 10 mg.
[2019-06-21 22:14] LABS: BILIRUBIN,URINE NEGATIVE (NEGATIVE); CLARITY,URINE CLEAR; COLOR,URINE YELLOW; GLUCOSE, URINE (UA) NEGATIVE (NEGATIVE); KETONES,URINE NEGATIVE (NEGATIVE); LEUKOCYTE ESTERASE ,URINE 3+ (NEGATIVE); NITRITE,URINE NEGATIVE (NEGATIVE); PROTEIN,URINE NEGATIVE (NEGATIVE)
[2019-06-21 22:16] LABS: ALANINE AMINOTRANSFERASE 43 U/L (0-55); ALBUMIN 4.3 GM/DL (3.2-4.5); ALKALINE PHOSPHATASE 190 U/L (40-136); BILIRUBIN,TOTAL 0.1 MG/DL (0.1-1.0); BUN/CREATININE RATIO 20; CALCIUM 9.9 MG/DL (8.5-10.1); CARBON DIOXIDE 24 MMOL/L (21-32); CHLORIDE 104 MMOL/L (98-107); CREATININE SERUM 0.75 MG/DL (0.60-1.30); GFR ESTIMATED > 60; GLUCOSE 61 MG/DL (70-105); INR 2.2 (0.8-1.4); MAGNESIUM 1.9 MG/DL (1.6-2.4); POTASSIUM 3.9 MMOL/L (3.6-5.0); PROTHROMBIN TIME PATIENT 25.3 SEC (12.2-14.7); SODIUM 141 MMOL/L (135-145); TOTAL PROTEIN 8.3 GM/DL (6.4-8.2)
[2019-06-21 22:46] LABS: BACTERIA,URINE FEW /HPF; WBC,URINE 25-50 /HPF
[2019-06-21] MEDS ORDERED: cefTRIAXone FOR IV USE 1,000 MG in WATER (STERILE) FOR INJECTION 10 ML IV ONE (23:00)
--- NOTE | 2019-06-21 23:12 | NUR ---
Pt taken meal tray a this time.
--- NOTE | 2019-06-21 23:22 | NUR ---
[facility] called for possible transport to [facility]. To return call.
--- NOTE | 2019-06-21 23:32 | NUR ---
[facility] reports only one truck and cannot take pt to [place].
--- NOTE | 2019-06-21 23:38 | NUR ---
Spoke with Tonio at EMS for transport to [place].
--- NOTE | 2019-06-21 23:40 | NUR ---
[facility] dispatch called at this time.
--- NOTE | 2019-06-22 | NUR ---
Report given to Savanah.
[2019-06-22] MEDS ORDERED: NS IV 1000 ML 1,000 ML IV SCH (01:10)
[2019-06-22 01:20] VITALS: BP 99/55
--- NOTE | 2019-06-22 07:17 | Diagnostic Imaging Report ---
EXAM: CHEST 1 VIEW, AP/PA ONLY INDICATION: Heart palpitations. COMPARISON: 05/30/2019. FINDINGS: Implantable loop recorder. Normal heart size and pulmonary vascularity. Calcified aorta. No dense consolidation, pleural effusion or pneumothorax. No acute osseous findings. IMPRESSION: No acute cardiopulmonary findings. Dictated by: Dictated on workstation # [id number]
== END 2019-06-22 01:20 | disposition short-term general hospital (02) ==
LOC: EDUNIT# 21:25 → ER 21:26
DX: I48.91 Unspecified atrial fibrillation (principal); J45.909 Unspecified asthma, uncomplicated; I10 Essential (primary) hypertension; E11.40 Type 2 diabetes mellitus with diabetic neuropathy, unspecified; E78.00 Pure hypercholesterolemia, unspecified; I25.2 Old myocardial infarction; I25.10 Atherosclerotic heart disease of native coronary artery without angina pectoris; F41.9 Anxiety disorder, unspecified; F32.9 Major depressive disorder, single episode, unspecified; G47.30 Sleep apnea, unspecified; K21.9 Gastro-esophageal reflux disease without esophagitis; E66.01 Morbid (severe) obesity due to excess calories; Z85.42 Personal history of malignant neoplasm of other parts of uterus; Z95.5 Presence of coronary angioplasty implant and graft; Z99.89 Dependence on other enabling machines and devices; Z86.718 Personal history of other venous thrombosis and embolism; Z88.8 Allergy status to other drugs, medicaments and biological substances; Z79.82 Long term (current) use of aspirin; Z79.51 Long term (current) use of inhaled steroids; Z79.4 Long term (current) use of insulin; Z79.01 Long term (current) use of anticoagulants; Z87.891 Personal history of nicotine dependence; Z82.49 Family history of ischemic heart disease and other diseases of the circulatory system; Z80.0 Family history of malignant neoplasm of digestive organs
CPT/HCPCS: 36415; 71045; 80053; 81000; 83735; 83874; 83880; 84484; 85025; 85610; 85730; 87077; 87088; 87186; 93005; 93041; 96361; 96365; 96366; 96375

== ENCOUNTER 2019-08-20 07:04 | Day surgery (SDC) | payer MEDICARE, MEDICAID ==
[~2019-08-20] VITALS: Ht 178 cm; Wt 129.0 kg
[~2019-08-20 07:04] MED LIST changes: +ACHYD1T PO; -CETI10TA20 PO; +CETI10TA21 PO; +HEParin (CATH LAB) 0 ML IV ONE; -HYDR-3820 PO; +LIDOCAINE 1% INJ 20 ML 20 ML VIAL ONE; +NS IV 1000 ML 1,000 ML ONE; -OXYB10TA2 PO; +OXYB10TA29 PO; -OXYB15TA18 PO; +OXYB15TA19 PO
[2019-08-20] MEDS ORDERED: ISOPROTERENOL 0.2 MG/D5W 50 ML IV ONE (07:15)
[2019-08-20] MEDS ORDERED: NS IV 1000 ML 1,000 ML IV SCH (07:15)
--- OUTSIDE RECORDS SUMMARY | 2019-08-20 07:16 | XMS REPORT | Continuity of Care Document ---
Author Organization Unknown Address Unknown Phone Unavailable Allergies Active Description Code Type Severity Reaction Onset Reported/Identified Relationship to Patient Clinical Status Yes isosorbide [id number] Drug Allerg y Unknown N/A 08/07/2015 Yes lipase [id number] Drug Allergy Unknown N/A 08/07/2015 Yes protease [id number] Drug Allergy Unknown N/A 08/07/2015 Yes amylase [id number] Drug Allergy Unknown N/A 07/16/2016 Yes black cohosh [id number] Drug Allergy Unknown N/A 07/16/2016 Yes cellulase [id number] Drug Allergy Unknown N/A 07/16/2016 Yes glyburide [id number] Drug Allergy Unknown N/A 07/16/2016 Medications There is no data. Problems Date Dx Coded Attending Type Code Diagnosis Diagnosed By NATE MORGAN MD, Ot E11. 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, RIGHT ANKLE AND FOOT NATE MORGAN MD, Ot M14.672 CHARCOT'S JOINT, LEFT ANKLE AND FOOT 04/14/1302 GERARD GRAJEDA, NATE Mitchell Ot M75.111 INCOMPLETE ROTATR-CUFF TEAR/RUPTR OF R S 04/14/1432 NATE GEE MD, Ot M75.111 INCOMPLETE ROTATR-CUFF TEAR/RUPTR OF R S 04/14/1656 KAMILAH GRAJEDA, DELIA Boo Ot M54 .5 LOW BACK PAIN 08/08/2015 TELLO DO, SAWYER Ot A52.16 08/08/2015 TELLO DO, SAWYER Ot E11.9 08/08/2015 TELLO DO, SAWYER Ot F32.9 08/08/2015 TELLO DO, SAWYER Ot I10 08/08/2015 TELLO DO, SAWYER Ot I82.41 2 08/08/2015 TELLO DO, SAWYER Ot N39.0 08/08/2015 TELLO DO, SAWYER Ot Z87.89 1 08/08/2015 TELLO DO, SAWYER Ot A52.16 08/08/2015 TELLO DO, SAWYER Ot E11.9 08/08/2015 TELLO DO, SAWYER Ot F32.9 08/08/2015 TELLO DO, SAWYER Ot I10 08/08/2015 TELLO DO, SAWYER Ot I82.41 2 08/08/2015 TELLO DO, SAWYER Ot N39.0 08/08/2015 TELLO DO, SAWYER Ot Z87.89 1 08/09/2015 TELLO DO, SAWYER Ot A52.16 08/09/2015 TELLO DO, SAWYER Ot E11.9 08/09/2015 TELLO DO, SAWYER Ot F32.9 08/09/2015 TELLO DO, SAWYER Ot I10 08/09/2015 TELLO DO, SAWYER Ot I82.41 2 08/09/2015 TELLO DO, SAWYER Ot N39.0 08/09/2015 TELLO DO, SAWYER Ot Z87.89 1 08/11/2015 TELLO DO, SAWYER Ot 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) 08/11/2015 TELLO DO, SAWYER Ot E11.9 TYPE 2 DIABETES MELLITUS WITHOUT COMPLIC 08/11/2015 TELLO DO, SAWYER Ot E66.01 MORBID (SEVERE) OBESITY DUE TO EXCESS CA 08/11/2015 TELLO DO, SAWYER Ot E78.5 HYPERLIPIDEMIA, UNSPECIFIED 08/11/2015 TELLO DO, SAWYER Ot F32.9 MAJOR DEPRESSIVE DISORDER, SINGLE EPISOD 08/11/2015 TELLO DO, SAWYER Ot I10 ESSENTIAL (PRIMARY) HYPERTENSION 08/11/2015 SAWYER TELLO DO Ot I34.1 NONRHEUMATIC MITRAL (VALVE) PROLAPSE 08/11/2015 SAWYER TELLO DO Ot I82.41 2 ACUTE EMBOLISM AND THROMBOSIS OF LEFT FE 08/11/2015 SAWYER TELLO DO Ot N39.0 URINARY TRACT INFECTION, SITE NOT SPECIF 08/11/2015 SAWYER TELLO DO Ot N95.0 POSTMENOPAUSAL BLEEDING 08/11/2015 SAWYER TELLO DO Ot R35.1 NOCTURIA 08/11/2015 SAWYER TELLO DO Ot Z68.41 BODY MASS INDEX (BMI) 40.0-44.9, ADULT 08/11/2015 SAWYER TELLO DO Ot Z79.4 CREATIVE SERVICES COORDINATOR (CURRENT) USE OF INSULIN 08/11/2015 SAWYER TELLO DO Ot Z87.89 1 PERSONAL HISTORY OF NICOTINE DEPENDENCE 08/27/2015 SAWYER TELLO DO Ot I82.40 2 08/27/2015 YAYA MOSCOSO DO Ot I1 0 ESSENTIAL (PRIMARY) HYPERTENSION 08/27/2015 YAYA MOSCOSO DO Ot J06.9 ACUTE UPPER RESPIRATORY INFECTION, UNSPE 08/27/2015 YAYA MOSCOSO DO Ot N39.0 URINARY TRACT INFECTION, SITE NOT SPECIF 08/27/2015 YAYA MOSCOSO DO Ot Z79.01 SKILLED NURSING (CURRENT) USE OF ANTICOAGULANT 08/27/2015 YAYA MOSCOSO DO Ot Z79.4 CREATIVE SERVICES COORDINATOR (CURRENT) USE OF INSULIN 08/27/2015 YAYA MOSCOSO DO Ot Z86.718 PERSONAL HISTORY OF OTHER VENOUS THROMBO 08/27/2015 YAYA MOSCOSO DO Ot Z87.891 PERSONAL HISTORY OF NICOTINE DEPENDENCE 08/27/2015 YAYA MOSCOSO DO Ot I1 0 08/27/2015 YAYA MOSCOSO DO Ot J06.9 08/27/2015 YAYA MOSCOSO DO Ot N39.0 08/27/2015 YAYA MOSCOSO DO Ot Z79.01 08/27/2015 YAYA MOSCOSO DO Ot Z79.4 08/27/2015 YAYA MOSCOSO DO Ot Z86.718 08/27/2015 YAYA MOSCOSO DO Ot Z87.891 08/27/2015 SAWYER TELLO DO Ot I82.40 2 08/29/2015 DELIA TRIANA MD Ot I82.412 ACUTE EMBOLISM AND THROMBOSIS OF LEFT FE 09/02/2015 DELIA TRIANA MD Ot I82.412 ACUTE EMBOLISM AND THROMBOSIS OF LEFT FE 09/09/2015 DELIA TRIANA MD Ot I82.412 ACUTE EMBOLISM AND THROMBOSIS OF LEFT FE 09/16/2015 DELIA TRIANA MD Ot I82.412 ACUTE EMBOLISM AND THROMBOSIS OF LEFT FE 09/17/2015 DELIA TRIANA MD Ot I82.412 ACUTE EMBOLISM AND THROMBOSIS OF LEFT FE 09/19/2015 DELIA TIRANA MD, Ot I82.4Y2 AC EMBLSM AND THOMBOS UNSP DEEP VEINS OF 09/23/2015 DELIA TRIANA MD Ot I82.412 ACUTE EMBOLISM AND THROMBOSIS OF LEFT FE 09/23/2015 NATE WU DO Ot I82.412 ACUTE EMBOLISM AND THROMBOSIS OF LEFT FE 09/26/2015 DELIA TRIANA MD, Ot I82.4Y2 AC EMBLSM AND THOMBOS UNSP DEEP VEINS OF 09/26/2015 DELIA TRIANA MD Ot R30 .0 DYSURIA 10/02/2015 DELIA TRIANA MD Ot I82.4Y2 AC EMBLSM AND THOMBOS UNSP DEEP VEINS OF 10/03/2015 SAWYER TELLO DO Ot I82.40 2 ACUTE EMBOLISM AND THOMBOS UNSP DEEP VEI 10/03/2015 DELIA TRIANA MD Ot I82.412 ACUTE EMBOLISM AND THROMBOSIS OF LEFT FE 10/03/2015 DELIA TRIANA MD Ot I82.412 ACUTE EMBOLISM AND THROMBOSIS OF LEFT FE 10/03/2015 NATE WU DO Ot I82.412 ACUTE EMBOLISM AND THROMBOSIS OF LEFT FE 10/03/2015 DELIA TRIANA MD Ot I82.412 ACUTE EMBOLISM AND THROMBOSIS OF LEFT FE 10/03/2015 DELIA TRIANA MD Ot I82.4Y2 AC EMBLSM AND THOMBOS UNSP DEEP VEINS OF 10/03/2015 DELIA TRIANA MD Ot I82.4Y2 AC EMBLSM AND THOMBOS UNSP DEEP VEINS OF 10/03/2015 DELIA TRIANA MD Ot R30 .0 DYSURIA 10/08/2015 DELIA TRIANA MD Ot N39 .0 URINARY TRACT INFECTION, SITE NOT SPECIF 10/08/2015 DELIA TRIANA MD, Ot Z09 ENCNTR FOR F/U EXAM AFT TRTMT FOR COND O 10/10/2015 DELIA TRIANA MD, Ot I82.4Y2 AC EMBLSM AND THOMBOS UNSP DEEP VEINS OF 10/10/2015 DELIA TRIANA MD, Ot I82.4Y2 AC EMBLSM AND THOMBOS UNSP DEEP VEINS OF 10/10/2015 DELIA TRIANA MD, Ot R30 .0 DYSURIA 10/15/2015 DELIA TRIANA MD, Ot I82.4Y2 AC EMBLSM AND THOMBOS UNSP DEEP VEINS OF 10/17/2015 DELIA TRIANA MD, Ot Z51.81 ENCOUNTER FOR THERAPEUTIC DRUG LEVEL MON 10/17/2015 DELIA TRIANA MD, Ot Z79.01 SKILLED NURSING (CURRENT) USE OF ANTICOAGULANT 10/24/2015 DELIA TRIANA MD, Ot I82.4Y2 AC EMBLSM AND THOMBOS UNSP DEEP VEINS OF 10/24/2015 DELIA TRIANA MD, Ot Z79.01 CREATIVE SERVICES COORDINATOR (CURRENT) USE OF ANTICOAGULANT 10/24/2015 DELIA TRIANA MD, Ot N39 .0 URINARY TRACT INFECTION, SITE NOT SPECIF 10/24/2015 DELIA TRIANA MD, Ot Z09 ENCNTR FOR F/U EXAM AFT TRTMT FOR COND O 10/30/2015 DELIA TRIANA MD, Ot I82.4Y2 AC EMBLSM AND THOMBOS UNSP DEEP VEINS OF 10/31/2015 DELIA TRIANA MD, Ot I82.412 ACUTE EMBOLISM AND THROMBOSIS OF LEFT FE 10/31/2015 DELIA TRIANA MD, Ot Z79.01 SKILLED NURSING (CURRENT) USE OF ANTICOAGULANT 11/03/2015 DELIA TRIANA MD, Ot Z51.81 ENCOUNTER FOR THERAPEUTIC DRUG LEVEL MON 11/03/2015 DELIA TRIANA MD, Ot Z79.01 CREATIVE SERVICES COORDINATOR (CURRENT) USE OF ANTICOAGULANT 11/12/2015 DELIA TRIANA MD, Ot N39 .0 URINARY TRACT INFECTION, SITE NOT SPECIF 11/14/2015 DELIA TRIANA MD, Ot I82.412 ACUTE EMBOLISM AND THROMBOSIS OF LEFT FE 11/14/2015 DELIA TRIANA MD, Ot Z79.01 CREATIVE SERVICES COORDINATOR (CURRENT) USE OF ANTICOAGULANT 11/20/2015 DELIA TRIANA MD, Ot I82.412 ACUTE EMBOLISM AND THROMBOSIS OF LEFT FE 11/27/2015 DELIA TRIANA MD, Ot N39 .0 URINARY TRACT INFECTION, SITE NOT SPECIF 12/03/2015 DELIA TRIANA MD, Ot N39 .0 URINARY TRACT INFECTION, SITE NOT SPECIF 12/03/2015 DELIA TRIANA MD, Ot Z79.01 SKILLED NURSING (CURRENT) USE OF ANTICOAGULANT 12/08/2015 DELIA TRIANA MD, Ot N39 .0 URINARY TRACT INFECTION, SITE NOT SPECIF 12/12/2015 DELIA TRIANA MD, Ot I82.4Y1 AC EMBLSM AND THOMBOS UNSP DEEP VEINS OF 12/16/2015 DELIA TRIANA MD, Ot N39 .0 URINARY TRACT INFECTION, SITE NOT SPECIF 12/16/2015 DELIA TRIANA MD, Ot Z79.01 SKILLED NURSING (CURRENT) USE OF ANTICOAGULANT 01/01/2016 DELIA TRIANA MD, Ot Z51.81 ENCOUNTER FOR THERAPEUTIC DRUG LEVEL MON 01/01/2016 DELIA TRIANA MD, Ot Z79.01 CREATIVE SERVICES COORDINATOR (CURRENT) USE OF ANTICOAGULANT 01/06/2016 SAWYER TELLO DO Ot I82.40 2 ACUTE EMBOLISM AND THOMBOS UNSP DEEP VEI 01/06/2016 DELIA TRIANA MD, Ot I82.412 ACUTE EMBOLISM AND THROMBOSIS OF LEFT FE 01/06/2016 DELIA TRIANA MD Ot I82.412 ACUTE EMBOLISM AND THROMBOSIS OF LEFT FE 01/06/2016 NATE WU DO Ot I82.412 ACUTE EMBOLISM AND THROMBOSIS OF LEFT FE 01/06/2016 DELIA TRIANA MD Ot I82.412 ACUTE EMBOLISM AND THROMBOSIS OF LEFT FE 01/06/2016 DELIA TRIANA MD, Ot I82.4Y2 AC EMBLSM AND THOMBOS UNSP DEEP VEINS OF 01/06/2016 DELIA TRIANA MD, Ot I82.4Y2 AC EMBLSM AND THOMBOS UNSP DEEP VEINS OF 01/06/2016 DELIA TRIANA MD, Ot R30 .0 DYSURIA 01/06/2016 DELIA TRIANA MD, Ot I82.4Y2 AC EMBLSM AND THOMBOS UNSP DEEP VEINS OF 01/06/2016 DELIA TRIANA MD Ot Z79.01 CREATIVE SERVICES COORDINATOR (CURRENT) USE OF ANTICOAGULANT 01/06/2016 DELIA TRIANA MD, Ot N39 .0 URINARY TRACT INFECTION, SITE NOT SPECIF 01/06/2016 DELIA TRIANA MD, Ot Z09 ENCNTR FOR F/U EXAM AFT TRTMT FOR COND O 01/06/2016 DELIA TRIANA MD, Ot I82.4Y2 AC EMBLSM AND THOMBOS UNSP DEEP VEINS OF 01/06/2016 DELIA TRIANA MD, Ot Z51.81 ENCOUNTER FOR THERAPEUTIC DRUG LEVEL MON 01/06/2016 DELIA TRIANA MD, Ot Z79.01 CREATIVE SERVICES COORDINATOR (CURRENT) USE OF ANTICOAGULANT 01/06/2016 DELIA TRIANA MD, Ot I82.412 ACUTE EMBOLISM AND THROMBOSIS OF LEFT FE 01/06/2016 DELIA TRIANA MD, Ot Z79.01 SKILLED NURSING (CURRENT) USE OF ANTICOAGULANT 01/06/2016 DELIA TRIANA MD, Ot I82.412 ACUTE EMBOLISM AND THROMBOSIS OF LEFT FE 01/06/2016 DELIA TRIANA MD, Ot N39 .0 URINARY TRACT INFECTION, SITE NOT SPECIF 01/06/2016 DELIA TRIANA MD, Ot I82.4Y1 AC EMBLSM AND THOMBOS UNSP DEEP VEINS OF 01/06/2016 DELIA TRIANA MD, Ot N39 .0 URINARY TRACT INFECTION, SITE NOT SPECIF 01/06/2016 DELIA TRIANA MD, Ot N39 .0 URINARY TRACT INFECTION, SITE NOT SPECIF 01/06/2016 DELIA TRIANA MD, Ot Z79.01 SKILLED NURSING (CURRENT) USE OF ANTICOAGULANT 01/06/2016 NATE MORGAN MD Ot E11.42 TYPE 2 DIABETES MELLITUS WITH DIABETIC P 01/06/2016 NATE MORGAN MD, Ot E11.621 TYPE 2 DIABETES MELLITUS WITH FOOT ULCER 01/06/2016 NATE MORGAN MD, Ot 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621 TYPE 2 DIABETES MELLITUS WITH FOOT ULCER 01/15/2016 NATE MORGAN MD, Ot 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 01/15/2016 NATE MORGAN MD, Ot I87.012 POSTTHROMBOTIC SYNDROME WITH ULCER OF LE 01/15/2016 NATE MORGAN MD, Ot L97.512 NON-PRS CHRONIC ULCER OTH PRT RIGHT FOOT 01/15/2016 NATE MORGAN MD, Ot M14.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, RIGHT ANKLE AND FOOT 01/15/2016 NATE MORGAN MD, Ot M14.672 CHARCOT'S JOINT, LEFT ANKLE AND FOOT 01/20/2016 NATE MORGAN MD, Ot E11.42 TYPE 2 DIABETES MELLITUS WITH DIABETIC P 01/20/2016 NATE MORGAN MD, Ot E11.621 TYPE 2 DIABETES MELLITUS WITH FOOT ULCER 01/20/2016 NATE MORGAN MD, Ot 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 01/20/2016 NATE MORGAN MD, Ot I87.012 POSTTHROMBOTIC SYNDROME WITH ULCER OF LE 01/20/2016 NATE MORGAN MD, Ot L97.512 NON-PRS CHRONIC ULCER OTH PRT RIGHT FOOT 01/20/2016 NATE MORGAN MD, Ot M14.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, RIGHT ANKLE AND FOOT 01/20/2016 NATE MORGAN MD, Ot M14.672 CHARCOT'S JOINT, LEFT ANKLE AND FOOT 01/21/2016 DELIA TRIANA MD, Ot Z51.81 ENCOUNTER FOR THERAPEUTIC DRUG LEVEL MON 01/21/2016 DELIA TRIANA MD, Ot Z79.01 CREATIVE SERVICES COORDINATOR (CURRENT) USE OF ANTICOAGULANT 01/22/2016 NATE MORGAN MD Ot E11.42 TYPE 2 DIABETES MELLITUS WITH DIABETIC P 01/22/2016 NATE MORGAN MD, Ot E11.621 TYPE 2 DIABETES MELLITUS WITH FOOT ULCER 01/22/2016 NATE MORGAN MD Ot 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 01/22/2016 NATE MORGAN MD, Ot I87.012 POSTTHROMBOTIC SYNDROME WITH ULCER OF LE 01/22/2016 NATE MORGAN MD, Ot L92 .8 OT GRANULOMATOUS DISORDERS OF THE SKIN, 01/22/2016 NATE MORGAN MD, Ot L97.512 NON-PRS CHRONIC ULCER OTH PRT RIGHT FOOT 01/22/2016 NATE MORGAN MD, Ot L97.522 NON-PRS CHRONIC ULCER OTH PRT LEFT FOOT 01/22/2016 NATE MORGAN MD, Ot 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.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, RIGHT ANKLE AND FOOT 01/22/2016 NATE MORGAN MD, Ot M14.672 CHARCOT'S JOINT, LEFT ANKLE AND FOOT 01/29/2016 NATE MORGAN MD Ot E11.42 TYPE 2 DIABETES MELLITUS WITH DIABETIC P 01/29/2016 NATE MORGAN MD Ot E11.621 TYPE 2 DIABETES MELLITUS WITH FOOT ULCER 01/29/2016 NATE MORGAN MD Ot 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 0 ATRIOVENTRICULAR BLOCK, FIRST DEGREE 02/02/2016 CHARLY JOSE MD Ot I48. 91 UNSPECIFIED ATRIAL FIBRILLATION 02/02/2016 CHARLY JOSE MD Ot I82.492 ACUTE EMBOLISM AND THROMBOSIS OF DEEP VE 02/02/2016 CHARLY JOSE MD Ot R06. 02 SHORTNESS OF BREATH 02/02/2016 CHARLY JOSE MD Ot Z82. 49 FAMILY HX OF ISCHEM HEART DIS AND OTH DI 02/02/2016 CHARLY JOSE MD Ot Z87.891 PERSONAL HISTORY OF NICOTINE DEPENDENCE 02/09/2016 CHARLY JOSE MD Ot I44. 0 ATRIOVENTRICULAR BLOCK, FIRST DEGREE 02/09/2016 CHARLY JOSE MD Ot I48. 91 UNSPECIFIED ATRIAL FIBRILLATION 02/09/2016 CHARLY JOSE MD Ot I82.492 ACUTE EMBOLISM AND THROMBOSIS OF DEEP VE 02/09/2016 CHARLY JOSE MD Ot R06. 02 SHORTNESS OF BREATH 02/09/2016 CHARLY JOSE MD Ot Z82. 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 02/10/2016 NATE MORGAN MD Ot I87.012 POSTTHROMBOTIC SYNDROME WITH ULCER OF LE 02/10/2016 NATE MORGAN MD Ot L97.512 NON-PRS CHRONIC ULCER OTH PRT RIGHT FOOT 02/10/2016 NATE MORGAN MD Ot M14.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, RIGHT ANKLE AND FOOT 02/10/2016 NATE MORGAN MD Ot M14.672 CHARCOT'S JOINT, LEFT ANKLE AND FOOT 02/10/2016 NATE MORGAN MD Ot E11.42 TYPE 2 DIABETES MELLITUS WITH DIABETIC P 02/10/2016 NATE MORGAN MD, Ot E11.621 TYPE 2 DIABETES MELLITUS WITH FOOT ULCER 02/10/2016 NATE MORGAN MD Ot 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 02/10/2016 NATE MORGAN MD, Ot I87.012 POSTTHROMBOTIC SYNDROME WITH ULCER OF LE 02/10/2016 NATE MORGAN MD Ot L92 .8 OTH GRANULOMATOUS DISORDERS OF THE SKIN, 02/10/2016 NATE MORGAN MD, Ot L97.512 NON-PRS CHRONIC ULCER OTH PRT RIGHT FOOT 02/10/2016 NATE MORGAN MD, Ot L97.522 NON-PRS CHRONIC ULCER OTH PRT LEFT FOOT 02/10/2016 NATE MORGAN MD, Ot M14.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, RIGHT ANKLE AND FOOT 02/10/2016 NATE MORGAN MD, Ot M14.672 CHARCOT'S JOINT, LEFT ANKLE AND FOOT 02/11/2016 NATE MORGAN MD Ot E11.42 TYPE 2 DIABETES MELLITUS WITH DIABETIC P 02/11/2016 NATE MORGAN MD, Ot E11.621 TYPE 2 DIABETES MELLITUS WITH FOOT ULCER 02/11/2016 NATE MORGAN MD, Ot 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 02/11/2016 NATE MORGAN MD, Ot I87.012 POSTTHROMBOTIC SYNDROME WITH ULCER OF LE 02/11/2016 NATE MORGAN MD, Ot L97.512 NON-PRS CHRONIC ULCER OTH PRT RIGHT FOOT 02/11/2016 NATE MORGAN MD, Ot 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.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, RIGHT ANKLE AND FOOT 02/11/2016 NATE MORGAN MD, Ot M14.672 CHARCOT'S JOINT, LEFT ANKLE AND FOOT 02/11/2016 NATE MORGAN MD, Ot E11.42 TYPE 2 DIABETES MELLITUS WITH DIABETIC P 02/11/2016 NATE MORGAN MD, Ot E11.621 TYPE 2 DIABETES MELLITUS WITH FOOT ULCER 02/11/2016 NATE MORGAN MD, Ot 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 0 ATRIOVENTRICULAR BLOCK, FIRST DEGREE 02/11/2016 CHARLY JOSE MD, Ot I48. 91 UNSPECIFIED ATRIAL FIBRILLATION 02/11/2016 CHARLY JOSE MD Ot I82.492 ACUTE EMBOLISM AND THROMBOSIS OF DEEP VE 02/11/2016 CHARLY JOSE MD Ot R06. 02 SHORTNESS OF BREATH 02/11/2016 CHARLY JOSE MD Ot Z82. 49 FAMILY HX OF ISCHEM HEART DIS AND OTH DI 02/11/2016 CHARLY JOSE MD, Ot Z87.891 PERSONAL HISTORY OF NICOTINE DEPENDENCE 02/11/2016 DELIA TRIANA MD, Ot I82.4Y2 AC EMBLSM AND THOMBOS UNSP DEEP VEINS OF 02/11/2016 DELIA TRIANA MD, Ot Z79.01 CREATIVE SERVICES COORDINATOR (CURRENT) USE OF ANTICOAGULANT 02/11/2016 CHARLY JOSE MD Ot E11.621 TYPE 2 DIABETES MELLITUS WITH FOOT ULCER 02/11/2016 CHARLY JOSE MD Ot E78. 5 HYPERLIPIDEMIA, UNSPECIFIED 02/11/2016 CHARLY JOSE MD Ot I10 ESSENTIAL (PRIMARY) HYPERTENSION 02/11/2016 CHARLY JOSE MD Ot I47. 1 SUPRAVENTRICULAR TACHYCARDIA 02/11/2016 CHARLY JOES MD Ot I48. 91 UNSPECIFIED ATRIAL FIBRILLATION 02/11/2016 CHARLY JOSE MD Ot I70.203 UNSP ATHSCL CANTWELL ARTERIES OF [facility] 02/11/2016 CHARLY JOSE MD Ot R06. 02 SHORTNESS OF BREATH 02/11/2016 CHARLY JOSE MD Ot Z79. 01 SKILLED NURSING (CURRENT) USE OF ANTICOAGULANT 02/11/2016 CHARLY JOSE MD Ot Z79. 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 02/16/2016 NATE MORGAN MD, Ot I87.012 POSTTHROMBOTIC SYNDROME WITH ULCER OF LE 02/16/2016 NATE MORGAN MD, Ot L97.512 NON-PRS CHRONIC ULCER OTH PRT RIGHT FOOT 02/16/2016 NATE MORGAN MD, Ot L97.514 NON-PRS CHRONIC ULCER OTH PRT RIGHT FOOT 02/16/2016 NATE MORGAN MD, Ot L97.521 NON-PRS CHRONIC ULCER OTH PRT L FOOT OBRIEN 02/16/2016 NATE MORGAN MD, Ot M14.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, RIGHT ANKLE AND FOOT 02/16/2016 NATE MORGAN MD, Ot M14.672 CHARCOT'S JOINT, LEFT ANKLE AND FOOT 02/16/2016 NATE MORGAN MD, Ot E11.42 TYPE 2 DIABETES MELLITUS WITH DIABETIC P 02/16/2016 NATE MORGAN MD, Ot E11.621 TYPE 2 DIABETES MELLITUS WITH FOOT ULCER 02/16/2016 NATE MORGAN MD, Ot 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 02/16/2016 NATE MORGAN MD, Ot I87.012 POSTTHROMBOTIC SYNDROME WITH ULCER OF LE 02/16/2016 NATE MORGAN MD, Ot L97.512 NON-PRS CHRONIC ULCER OTH PRT RIGHT FOOT 02/16/2016 NATE MORGAN MD, Ot M14.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, RIGHT ANKLE AND FOOT 02/16/2016 NATE MORGAN MD, Ot M14.672 CHARCOT'S JOINT, LEFT ANKLE AND FOOT 02/16/2016 NATE MORGAN MD, Ot E11.42 TYPE 2 DIABETES MELLITUS WITH DIABETIC P 02/16/2016 NATE MORGAN MD, Ot E11.621 TYPE 2 DIABETES MELLITUS WITH FOOT ULCER 02/16/2016 NATE MORGAN MD Ot 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 0 ATRIOVENTRICULAR BLOCK, FIRST DEGREE 02/16/2016 CHARLY JOSE MD, Ot I48. 91 UNSPECIFIED ATRIAL FIBRILLATION 02/16/2016 CHARLY JOSE MD, Ot I82.492 ACUTE EMBOLISM AND THROMBOSIS OF DEEP VE 02/16/2016 CHARLY JOSE MD Ot R06. 02 SHORTNESS OF BREATH 02/16/2016 CHARLY JOSE MD, Ot Z82. 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 02/16/2016 NATE MORGAN MD, Ot L97.512 NON-PRS CHRONIC ULCER OTH PRT RIGHT FOOT 02/16/2016 NATE MORGAN MD, Ot M14.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, RIGHT ANKLE AND FOOT 02/16/2016 NATE MORGAN MD, Ot M14.672 CHARCOT'S JOINT, LEFT ANKLE AND FOOT 02/17/2016 NATE MORGAN MD, Ot E11.42 TYPE 2 DIABETES MELLITUS WITH DIABETIC P 02/17/2016 NATE MORGAN MD, Ot E11.621 TYPE 2 DIABETES MELLITUS WITH FOOT ULCER 02/17/2016 NATE MORGAN MD, Ot 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 0 ATRIOVENTRICULAR BLOCK, FIRST DEGREE 02/19/2016 CHARLY JOSE MD Ot I48. 91 UNSPECIFIED ATRIAL FIBRILLATION 02/19/2016 CHARLY JOSE MD, Ot I82.492 ACUTE EMBOLISM AND THROMBOSIS OF DEEP VE 02/19/2016 CHARLY JOSE MD Ot R06. 02 SHORTNESS OF BREATH 02/19/2016 CHARLY JOSE MD, Ot Z82. 49 FAMILY HX OF ISCHEM HEART DIS AND OTH DI 02/19/2016 CHARLY JOSE MD, Ot Z87.891 PERSONAL HISTORY OF NICOTINE DEPENDENCE 02/23/2016 DELIA TRIANA MD, Ot I82.4Y2 AC EMBLSM AND [facility] UNSP DEEP VEINS OF 02/23/2016 DELIA TRIANA MD, Ot Z79.01 CREATIVE SERVICES COORDINATOR (CURRENT) USE OF ANTICOAGULANT 03/12/2016 DELIA TRIANA MD, Ot I82.4Y2 AC EMBLSM AND [facility] UNSP DEEP VEINS OF 03/12/2016 DELIA TRIANA MD, Ot Z79.01 SKILLED NURSING (CURRENT) USE OF ANTICOAGULANT 03/30/2016 NATE MORGAN MD, Ot E11.42 TYPE 2 DIABETES MELLITUS WITH DIABETIC P 03/30/2016 NATE MORGAN MD, Ot E11.621 TYPE 2 DIABETES MELLITUS WITH FOOT ULCER 03/30/2016 NATE MORGAN MD, Ot 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 03/30/2016 NATE MORGAN MD Ot L03.115 CELLULITIS OF RIGHT LOWER LIMB 03/30/2016 NATE MORGAN MD, Ot L97.514 NON-PRS CHRONIC ULCER OTH PRT RIGHT FOOT 03/30/2016 NATE MORGAN MD, Ot L97.521 NON-PRS CHRONIC ULCER OTH PRT L FOOT OBRIEN 03/30/2016 NATE MORGAN MD Ot M14.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, RIGHT ANKLE AND FOOT 03/30/2016 NATE MORGAN MD, Ot M14.672 CHARCOT'S JOINT, LEFT ANKLE AND FOOT 04/01/2016 NATE MORGAN MD, Ot E11.42 TYPE 2 DIABETES MELLITUS WITH DIABETIC P 04/01/2016 NATE MORGAN MD, Ot E11.621 TYPE 2 DIABETES MELLITUS WITH FOOT ULCER 04/01/2016 NATE MORGAN MD, Ot 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 04/01/2016 NATE MORGAN MD Ot I87.012 POSTTHROMBOTIC SYNDROME WITH ULCER OF LE 04/01/2016 NATE MORGAN MD Ot L97.514 NON-PRS CHRONIC ULCER OTH PRT RIGHT FOOT 04/01/2016 NATE MORGAN MD, Ot L97.521 NON-PRS CHRONIC ULCER OTH PRT L FOOT OBRIEN 04/01/2016 NATE MORGAN MD, Ot M14.672 CHARCOT'S JOINT, LEFT ANKLE AND FOOT 04/06/2016 DELIA TRAINA MD Ot M54 .5 LOW BACK PAIN 04/07/2016 DELIA TRIANA MD Ot M54 .5 LOW BACK PAIN 04/12/2016 NATE MORGAN MD, Ot E11.42 TYPE 2 DIABETES MELLITUS WITH DIABETIC P 04/12/2016 NATE MORGAN MD Ot E11.621 TYPE 2 DIABETES MELLITUS WITH FOOT ULCER 04/12/2016 NATE MORGAN MD Ot 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 04/12/2016 NATE MORGAN MD Ot L03.115 CELLULITIS OF RIGHT LOWER LIMB 04/12/2016 NATE MORGAN MD Ot L97.514 NON-PRS CHRONIC ULCER OTH PRT RIGHT FOOT 04/12/2016 NATE MORGAN MD, Ot L97.521 NON-PRS CHRONIC ULCER OTH PRT L FOOT OBRIEN 04/12/2016 NATE MORGAN MD, Ot M14.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, RIGHT ANKLE AND FOOT 04/12/2016 NATE MORGAN MD, Ot M14.672 CHARCOT'S JOINT, LEFT ANKLE AND FOOT 04/29/2016 DELIA TRIANA MD Ot M54 .5 LOW BACK PAIN 05/05/2016 NATE MORGAN MD Ot E11.42 TYPE 2 DIABETES MELLITUS WITH DIABETIC P 05/05/2016 NATE MORGAN MD, Ot E11.621 TYPE 2 DIABETES MELLITUS WITH FOOT ULCER 05/05/2016 NATE MORGAN MD, Ot 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 05/05/2016 NATE MORGAN MD, Ot I87.012 POSTTHROMBOTIC SYNDROME WITH ULCER OF LE 05/05/2016 NATE MORGAN MD, Ot L97.514 NON-PRS CHRONIC ULCER OTH PRT RIGHT FOOT 05/05/2016 NATE MORGAN MD Ot L97.521 NON-PRS CHRONIC ULCER OTH PRT L FOOT OBRIEN 05/05/2016 NATE MORGAN MD, Ot M14.672 CHARCOT'S JOINT, LEFT ANKLE AND FOOT 05/07/2016 DELIA TRIANA MD Ot M54 .5 LOW BACK PAIN 05/11/2016 DELIA TRIANA MD Ot M54 .5 LOW BACK PAIN 06/16/2016 FENANGELES DO, NATE S Ot N95.0 POSTMENOPAUSAL BLEEDING 06/17/2016 NATE MORGAN MD Ot E11.42 TYPE 2 DIABETES MELLITUS WITH DIABETIC P 06/17/2016 NATE MORGAN MD, Ot E11.621 TYPE 2 DIABETES MELLITUS WITH FOOT ULCER 06/17/2016 NATE MORGAN MD, Ot 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 06/17/2016 NATE MORGAN MD, Ot I87.012 POSTTHROMBOTIC SYNDROME WITH ULCER OF LE 06/17/2016 NATE MORGAN MD, Ot L97.512 NON-PRS CHRONIC ULCER OTH PRT RIGHT FOOT 06/17/2016 NATE MORGAN MD, Ot M14.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, RIGHT ANKLE AND FOOT 06/17/2016 NATE MORGAN MD, Ot M14.672 CHARCOT'S JOINT, LEFT ANKLE AND FOOT 06/17/2016 NATE MORGAN MD Ot E11.42 TYPE 2 DIABETES MELLITUS WITH DIABETIC P 06/17/2016 NATE MORGAN MD, Ot E11.621 TYPE 2 DIABETES MELLITUS WITH FOOT ULCER 06/17/2016 NATE MORGAN MD, Ot 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 0 ATRIOVENTRICULAR BLOCK, FIRST DEGREE 06/17/2016 CHARLY JOSE MD Ot I48. 91 UNSPECIFIED ATRIAL FIBRILLATION 06/17/2016 CHARLY JOSE MD, Ot I82.492 ACUTE EMBOLISM AND THROMBOSIS OF DEEP VE 06/17/2016 CHARLY JOSE MD Ot R06. 02 SHORTNESS OF BREATH 06/17/2016 CHARLY JOSE MD Ot Z82. 49 FAMILY HX OF ISCHEM HEART DIS AND OTH DI 06/17/2016 CHARLY JOSE MD, Ot Z87.891 PERSONAL HISTORY OF NICOTINE DEPENDENCE 06/17/2016 DELIA TRIANA MD, Ot I82.4Y2 AC EMBLSM AND THOMBOS UNSP DEEP VEINS OF 06/17/2016 DELIA TRIANA MD, Ot Z79.01 CREATIVE SERVICES COORDINATOR (CURRENT) USE OF ANTICOAGULANT 06/17/2016 DELIA TRIANA MD, Ot I82.4Y2 AC EMBLSM AND THOMBOS UNSP DEEP VEINS OF 06/17/2016 DELIA TRIANA MD, Ot Z79.01 SKILLED NURSING (CURRENT) USE OF ANTICOAGULANT 06/17/2016 EDDIE MD, NATE G Ot E11.42 TYPE 2 DIABETES MELLITUS WITH DIABETIC P 06/17/2016 NATE MORGAN MD Ot E11.621 TYPE 2 DIABETES MELLITUS WITH FOOT ULCER 06/17/2016 NATE MORGAN MD, Ot 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 06/17/2016 NATE MORGAN MD Ot L03.115 CELLULITIS OF RIGHT LOWER LIMB 06/17/2016 NATE MORGAN MD Ot L97.514 NON-PRS CHRONIC ULCER OTH PRT RIGHT FOOT 06/17/2016 NATE MORGAN MD Ot L97.521 NON-PRS CHRONIC ULCER OTH PRT L FOOT OBRIEN 06/17/2016 NATE MORGAN MD, Ot M14.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, RIGHT ANKLE AND FOOT 06/17/2016 NATE MORGAN MD, Ot M14.672 CHARCOT'S JOINT, LEFT ANKLE AND FOOT 06/17/2016 NATE WU DO Ot N95.0 POSTMENOPAUSAL BLEEDING 06/17/2016 OTHER, UNLISTED Ot Z12.31 ENCNTR SCREEN MAMMOGRAM FOR MALIGNANT NE 06/18/2016 OTHER, UNLISTED Ot Z12.31 ENCNTR SCREEN MAMMOGRAM FOR MALIGNANT NE 06/29/2016 NATE WU DO S Ot N95.0 POSTMENOPAUSAL BLEEDING 07/14/2016 ADOLFO MELENDREZ MD Ot K59. 00 CONSTIPATION, UNSPECIFIED 07/14/2016 ADOLFO MELENDREZ MD Ot Z01.818 ENCOUNTER FOR OTHER PREPROCEDURAL EXAMIN 07/14/2016 ADOLFO MELENDREZ MD Ot Z80. 0 FAMILY HISTORY OF MALIGNANT NEOPLASM OF 07/15/2016 ADOLFO MELENDREZ MD Ot K59. 00 CONSTIPATION, UNSPECIFIED 07/15/2016 ADOLFO MELENDREZ MD Ot Z01.818 ENCOUNTER FOR OTHER PREPROCEDURAL EXAMIN 07/15/2016 ADOLFO MELENDREZ MD Ot Z80. 0 FAMILY HISTORY OF MALIGNANT NEOPLASM OF 07/16/2016 ADOLFO MELENDREZ MD Ot E11. 9 TYPE 2 DIABETES MELLITUS WITHOUT COMPLIC 07/16/2016 ADOLFO MELENDREZ MD Ot K57. 30 DVRTCLOS OF LG INT W/O PERFORATION OR AB 07/16/2016 ADOLFO MELENDREZ MD Ot K63. 5 POLYP OF COLON 07/16/2016 ADOLFO MELENDREZ MD Ot Z12. 11 ENCOUNTER FOR SCREENING FOR MALIGNANT NE 07/16/2016 ADOLFO MELENDREZ MD Ot Z79. 4 SKILLED NURSING (CURRENT) USE OF INSULIN 07/16/2016 ADOLFO MELENDREZ MD Ot Z80. 0 FAMILY HISTORY OF MALIGNANT NEOPLASM OF 07/20/2016 ADOLFO MELENDREZ MD Ot E11. 9 TYPE 2 DIABETES MELLITUS WITHOUT COMPLIC 07/20/2016 ADOLFO MELENDREZ MD Ot K57. 30 DVRTCLOS OF LG INT W/O PERFORATION OR AB 07/20/2016 ADOLFO MELENDREZ MD Ot K63. 5 POLYP OF COLON 07/20/2016 ADOLFO MELENDREZ MD Ot Z12. 11 ENCOUNTER FOR SCREENING FOR MALIGNANT NE 07/20/2016 ADOLFO MELENDREZ MD Ot Z79. 4 SKILLED NURSING (CURRENT) USE OF INSULIN 07/20/2016 ADOLFO MELENDREZ MD Ot Z80. 0 FAMILY HISTORY OF MALIGNANT NEOPLASM OF 07/26/2016 ADOLFO MELENDREZ MD Ot E11. 9 TYPE 2 DIABETES MELLITUS WITHOUT COMPLIC 07/26/2016 ADOLFO MELENDREZ MD Ot K57. 30 DVRTCLOS OF LG INT W/O PERFORATION OR AB 07/26/2016 ADOLFO MELENDREZ MD Ot K63. 5 POLYP OF COLON 07/26/2016 ADOLFO MELENDREZ MD Ot Z12. 11 ENCOUNTER FOR SCREENING FOR MALIGNANT NE 07/26/2016 ADOLFO MELENDREZ MD Ot Z79. 4 CREATIVE SERVICES COORDINATOR (CURRENT) USE OF INSULIN 07/26/2016 ADOLFO MELENDREZ MD Ot Z80. 0 FAMILY HISTORY OF MALIGNANT NEOPLASM OF 08/09/2016 JAZMIN DO NATE S Ot N95.0 POSTMENOPAUSAL BLEEDING 08/09/2016 NATE WU DO S Ot Z01.818 ENCOUNTER FOR OTHER PREPROCEDURAL EXAMIN 08/09/2016 FENECH DO NATE S Ot Z11.2 ENCOUNTER FOR SCREENING FOR OTHER BACTER 08/10/2016 CANDACEECH DO NATE S Ot N95.0 POSTMENOPAUSAL BLEEDING 08/10/2016 CANDACEECH DONATE S Ot Z01.818 ENCOUNTER FOR OTHER PREPROCEDURAL EXAMIN 08/10/2016 CANDACEECH DONATE S Ot Z11.2 ENCOUNTER FOR SCREENING FOR OTHER BACTER 08/12/2016 CANADCEECH NATE MCKNIGHT S Ot E11.9 TYPE 2 DIABETES MELLITUS WITHOUT COMPLIC 08/12/2016 NATE WU DO S Ot N84.0 POLYP OF CORPUS UTERI 08/12/2016 JAZMIN MCKNIGHT NATE Jama Ot N95.0 POSTMENOPAUSAL BLEEDING 08/12/2016 JAZMIN MCKNIGHT NATE Jama Ot R93.8 ABNORMAL FINDINGS ON DIAGNOSTIC IMAGING 08/12/2016 JAZMIN MCKNIGHT NATE Jama Ot Z79.01 SKILLED NURSING (CURRENT) USE OF ANTICOAGULANT 08/12/2016 JAZMIN MCKNIGHT NATE Jama Ot Z79.84 SKILLED NURSING (CURRENT) USE OF ORAL HYPOGLYC 08/27/2016 CANDACEANGELES NATE Jama Ot E11.9 TYPE 2 DIABETES MELLITUS WITHOUT COMPLIC 08/27/2016 JAZMIN MCKNIGHT NATE Jama Ot N84.0 POLYP OF CORPUS UTERI 08/27/2016 JAZMIN MCKNIGHT NATE Jama Ot N95.0 POSTMENOPAUSAL BLEEDING 08/27/2016 JAZMIN MCKNIGHT NATE Jama Ot R93.8 ABNORMAL FINDINGS ON DIAGNOSTIC IMAGING 08/27/2016 JAZMIN MCKNIGHT NATE Jama Ot Z79.01 CREATIVE SERVICES COORDINATOR (CURRENT) USE OF ANTICOAGULANT 08/27/2016 CANDACEANGELES NATE Jama Ot Z79.84 CREATIVE SERVICES COORDINATOR (CURRENT) USE OF ORAL HYPOGLYC 01/06/2017 CHARLY JOSE MD Ot I10 ESSENTIAL (PRIMARY) HYPERTENSION 01/06/2017 CHARLY JOSE MD Ot I47. 1 SUPRAVENTRICULAR TACHYCARDIA 01/06/2017 CHARLY JOSE MD Ot I48. 0 PAROXYSMAL ATRIAL FIBRILLATION 01/06/2017 CHARLY JOSE MD Ot I82.492 ACUTE EMBOLISM AND THROMBOSIS OF DEEP VE 01/06/2017 CHARLY JOSE MD Ot R06. 02 SHORTNESS OF BREATH 01/06/2017 CHARLY JOSE MD Ot R94. 31 ABNORMAL ELECTROCARDIOGRAM [ECG] [EKG] 01/10/2017 GARY BROCK APRN Ot N85.9 NONINFLAMMATORY DISORDER OF UTERUS, UNSP 01/10/2017 GARY BROCK APRN Ot N88.8 OTHER SPECIFIED NONINFLAMMATORY DISORDER 01/10/2017 GARY BROCK APRN Ot N95.0 POSTMENOPAUSAL BLEEDING 01/12/2017 ADOLFO MELENDREZ MD, Ot E11. 9 TYPE 2 DIABETES MELLITUS WITHOUT COMPLIC 01/12/2017 ADOLFO MELENDREZ MD, Ot K57. 30 DVRTCLOS OF LG INT W/O PERFORATION OR AB 01/12/2017 ADOLFO MELENDREZ MD, Ot K63. 5 POLYP OF COLON 01/12/2017 ADOLFO MELENDREZ MD, Ot Z12. 11 ENCOUNTER FOR SCREENING FOR MALIGNANT NE 01/12/2017 ADOLFO MELENDREZ MD Ot Z79. 4 SKILLED NURSING (CURRENT) USE OF INSULIN 01/12/2017 ADOLFO MELENDREZ MD Ot Z80. 0 FAMILY HISTORY OF MALIGNANT NEOPLASM OF 01/12/2017 GARY BROCK APRN Ot N85.9 NONINFLAMMATORY DISORDER OF UTERUS, UNSP 01/12/2017 GARY BROCK APRN Ot N88.8 OTHER SPECIFIED NONINFLAMMATORY DISORDER 01/12/2017 GARY BROCK APRN Ot N95.0 POSTMENOPAUSAL BLEEDING 01/20/2017 CHARLY JOSE MD Ot I10 ESSENTIAL (PRIMARY) HYPERTENSION 01/20/2017 CHARLY JOSE MD, Ot I47. 1 SUPRAVENTRICULAR TACHYCARDIA 01/20/2017 CHARLY JOSE MD, Ot I48. 0 PAROXYSMAL ATRIAL FIBRILLATION 01/20/2017 CHARLY JOSE MD, Ot I82.492 ACUTE EMBOLISM AND THROMBOSIS OF DEEP VE 01/20/2017 CHARLY JOSE MD Ot R06. 02 SHORTNESS OF BREATH 01/20/2017 CHARLY JOSE MD Ot R94. 31 ABNORMAL ELECTROCARDIOGRAM [ECG] [EKG] 02/04/2017 NATE GEE MD Ot M19.011 PRIMARY OSTEOARTHRITIS, RIGHT SHOULDER 02/04/2017 NATE GEE MD Ot M75.101 UNSP ROTATR-CUFF TEAR/RUPTR OF RIGHT SUSY 02/09/2017 NATE GEE MD Ot M19.011 PRIMARY OSTEOARTHRITIS, RIGHT SHOULDER 02/09/2017 NATE GEE MD, Ot M75.101 UNSP ROTATR-CUFF TEAR/RUPTR OF RIGHT SUSY 02/23/2017 NATE GEE MD, Ot M19.011 PRIMARY OSTEOARTHRITIS, RIGHT SHOULDER 02/23/2017 NATE GEE MD, Ot M75.101 UNSP ROTATR-CUFF TEAR/RUPTR OF RIGHT SUSY 05/18/2017 NATE MORGAN MD Ot E11.42 TYPE 2 DIABETES MELLITUS WITH DIABETIC P 05/18/2017 NATE MORGAN MD, Ot E11.621 TYPE 2 DIABETES MELLITUS WITH FOOT ULCER 05/18/2017 NATE MORGAN MD, Ot 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 05/18/2017 NATE MORGAN MD, Ot I87.012 POSTTHROMBOTIC SYNDROME WITH ULCER OF LE 05/18/2017 NATE MORGAN MD, Ot L97.512 NON-PRS CHRONIC ULCER OTH PRT RIGHT FOOT 05/18/2017 NATE MORGAN MD, Ot M14.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, RIGHT ANKLE AND FOOT 05/18/2017 NATE MORGAN MD, Ot M14.672 CHARCOT'S JOINT, LEFT ANKLE AND FOOT 05/18/2017 NATE MORGAN MD, Ot E11.42 TYPE 2 DIABETES MELLITUS WITH DIABETIC P 05/18/2017 NATE MORGAN MD, Ot E11.621 TYPE 2 DIABETES MELLITUS WITH FOOT ULCER 05/18/2017 NATE MORGAN MD, Ot 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 0 ATRIOVENTRICULAR BLOCK, FIRST DEGREE 05/18/2017 CHARLY JOSE MD Ot I48. 91 UNSPECIFIED ATRIAL FIBRILLATION 05/18/2017 CHARLY JOSE MD, Ot I82.492 ACUTE EMBOLISM AND THROMBOSIS OF DEEP VE 05/18/2017 CHARLY JOSE MD Ot R06. 02 SHORTNESS OF BREATH 05/18/2017 CHARLY JOSE MD, Ot Z82. 49 FAMILY HX OF ISCHEM HEART DIS AND OTH DI 05/18/2017 CHARLY JOSE MD, Ot Z87.891 PERSONAL HISTORY OF NICOTINE DEPENDENCE 05/18/2017 DELIA TRIANA MD, Ot I82.4Y2 AC EMBLSM AND THOMBOS UNSP DEEP VEINS OF 05/18/2017 DELIA TRIANA MD, Ot79.01 SKILLED NURSING (CURRENT) USE OF ANTICOAGULANT 05/18/2017 DELIA TRIANA MD, Ot I82.4Y2 AC EMBLSM AND THOMBOS [facility] DEEP VEINS OF 05/18/2017 DELIA TRIANA MD, Ot Z79.01 SKILLED NURSING (CURRENT) USE OF ANTICOAGULANT 05/18/2017 NATE MORGAN MD, Ot E11.42 TYPE 2 DIABETES MELLITUS WITH DIABETIC P 05/18/2017 NATE MORGAN MD, Ot E11.621 TYPE 2 DIABETES MELLITUS WITH FOOT ULCER 05/18/2017 NATE MORGAN MD, Ot 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 05/18/2017 NATE MORGAN MD, Ot L03.115 CELLULITIS OF RIGHT LOWER LIMB 05/18/2017 NATE MORGAN MD, Ot L97.514 NON-PRS CHRONIC ULCER OTH PRT RIGHT FOOT 05/18/2017 NATE MORGAN MD, Ot L97.521 NON-PRS CHRONIC ULCER OTH PRT L FOOT OBRIEN 05/18/2017 NATE MORGAN MD Ot M14.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, RIGHT ANKLE AND FOOT 05/18/2017 NATE MORGAN MD, Ot M14.672 CHARCOT'S JOINT, LEFT ANKLE AND FOOT 05/18/2017 NATE WU DO Ot N95.0 POSTMENOPAUSAL BLEEDING 05/18/2017 OTHER, UNLISTED Ot Z12.31 ENCNTR SCREEN MAMMOGRAM FOR MALIGNANT NE 05/18/2017 GARY BROCK EDGE BURNISHER Ot N85.9 NONINFLAMMATORY DISORDER OF UTERUS, UNSP 05/18/2017 GARY BROCK APRN Ot N88.8 OTHER SPECIFIED NONINFLAMMATORY DISORDER 05/18/2017 GARY BROCK APRN Ot N95.0 POSTMENOPAUSAL BLEEDING 05/18/2017 CHARLY JOSE MD Ot I10 ESSENTIAL (PRIMARY) HYPERTENSION 05/18/2017 CHARLY JOSE MD, Ot I47. 1 SUPRAVENTRICULAR TACHYCARDIA 05/18/2017 CHARLY JOSE MD Ot I48. 0 PAROXYSMAL ATRIAL FIBRILLATION 05/18/2017 CHARLY JOSE MD, Ot I82.492 ACUTE EMBOLISM AND THROMBOSIS OF DEEP VE 05/18/2017 CHARLY JOSE MD Ot R06. 02 SHORTNESS OF BREATH 05/18/2017 CHARLY JOSE MD, Ot R94. 31 ABNORMAL ELECTROCARDIOGRAM [ECG] [EKG] 05/18/2017 NATE GEE MD, Ot M19.011 PRIMARY OSTEOARTHRITIS, RIGHT SHOULDER 05/18/2017 NATE GEE MD, Ot M75.101 UNSP ROTATR-CUFF TEAR/RUPTR OF RIGHT SUSY 05/25/2017 NATE GEE MD, Ot E11.9 TYPE 2 DIABETES MELLITUS WITHOUT COMPLIC 05/25/2017 NATE GEE MD, Ot E66.01 MORBID (SEVERE) OBESITY DUE TO EXCESS CA 05/25/2017 NATE GEE MD, Ot E78.5 HYPERLIPIDEMIA, UNSPECIFIED 05/25/2017 NATE GEE MD, Ot I1 0 ESSENTIAL (PRIMARY) HYPERTENSION 05/25/2017 NATE GEE MD, Ot I34.1 NONRHEUMATIC MITRAL (VALVE) PROLAPSE 05/25/2017 NATE GEE MD, Ot K21.9 GASTRO-ESOPHAGEAL REFLUX DISEASE WITHOUT 05/25/2017 NATE GEE MD, Ot M75.101 UNSP ROTATR-CUFF TEAR/RUPTR OF RIGHT SUSY 05/25/2017 NATE GEE MD, Ot S43.431A SUPERIOR GLENOID LABRUM LESION OF RIGHT 05/25/2017 NATE GEE MD, Ot Z68.41 BODY MASS INDEX (BMI) 40.0-44.9, ADULT 05/25/2017 NATE GEE MD, Ot Z79.01 CREATIVE SERVICES COORDINATOR (CURRENT) USE OF ANTICOAGULANT 05/25/2017 NATE GEE MD, Ot Z79.82 CREATIVE SERVICES COORDINATOR (CURRENT) USE OF ASPIRIN 05/25/2017 NATE GEE MD, Ot Z79.84 CREATIVE SERVICES COORDINATOR (CURRENT) USE OF ORAL HYPOGLYC 05/25/2017 NATE GEE MD, Ot Z79.899 OTHER SKILLED NURSING (CURRENT) DRUG THERAPY 05/25/2017 NATE GEE MD, Ot Z86.718 PERSONAL HISTORY OF OTHER VENOUS THROMBO 05/25/2017 NATE GEE MD, Ot Z87.891 PERSONAL HISTORY OF NICOTINE DEPENDENCE 05/25/2017 NATE GEE MD, Ot Z88.8 ALLERGY STATUS TO OT DRUG/MEDS/BIOL SUB 05/27/2017 NATE GEE MD, Ot M75.111 INCOMPLETE ROTATR-CUFF TEAR/RUPTR OF R S 06/15/2017 GERARD GRAJEDA, NATE Mitchell Ot M75.111 INCOMPLETE ROTATR-CUFF TEAR/RUPTR OF R S 06/29/2017 REBEKA DOMINGUEZ EDGE BURNISHER Ot D25.9 LEIOMYOMA OF UTERUS, UNSPECIFIED 06/29/2017 REBEKA DOMINGUEZ EDGE BURNISHER Ot I82.509 CHRONIC EMBOLISM AND THOMBOS UNSP DEEP V 06/29/2017 REBEKA DOMINGUEZ EDGE BURNISHER Ot 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.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 [E 06/29/2017 REBEKA DOMINGUEZ EDGE BURNISHER Ot Z68.41 BODY MASS INDEX (BMI) 40.0-44.9, ADULT 06/30/2017 NATE GEE MD, Ot M75.111 INCOMPLETE ROTATR-CUFF TEAR/RUPTR OF R S 07/04/2017 REBEKA DOMINGUEZ EDGE BURNISHER Ot D25.9 LEIOMYOMA OF UTERUS, UNSPECIFIED 07/04/2017 REBEKA DOMINGUEZ EDGE BURNISHER Ot I82.509 CHRONIC EMBOLISM AND THOMBOS UNSP DEEP V 07/04/2017 REBEKA DOMINGUEZ EDGE BURNISHER Ot N85.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 [E 07/04/2017 REBEKA DOMINGUEZ EDGE BURNISHER Ot Z68.41 BODY MASS INDEX (BMI) 40.0-44.9, ADULT 07/07/2017 NATE GEE MD, Ot M75.111 INCOMPLETE ROTATR-CUFF TEAR/RUPTR OF R S 07/12/2017 REBEKA DOMINGUEZ EDGE BURNISHER Ot D25.9 LEIOMYOMA OF UTERUS, UNSPECIFIED 07/12/2017 REBEKA DOMINGUEZ EDGE BURNISHER Ot I82.509 CHRONIC EMBOLISM AND THOMBOS UNSP DEEP V 07/12/2017 REBEKA DOMINGUEZ EDGE BURNISHER Ot N85.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 [E 07/12/2017 REBEKA DOMINGUEZ EDGE BURNISHER Ot Z68.41 BODY MASS INDEX (BMI) 40.0-44.9, ADULT 08/10/2017 NATE GEE MD Ot M75.111 INCOMPLETE ROTATR-CUFF TEAR/RUPTR OF R S 08/24/2017 NATE GEE MD Ot M75.111 INCOMPLETE ROTATR-CUFF TEAR/RUPTR OF R S 08/25/2017 NATE GEE MD Ot M75.111 INCOMPLETE ROTATR-CUFF TEAR/RUPTR OF R S 08/30/2017 NATE GEE MD Ot M75.111 INCOMPLETE ROTATR-CUFF TEAR/RUPTR OF R S 09/07/2017 NATE GEE MD Ot M75.111 INCOMPLETE ROTATR-CUFF TEAR/RUPTR OF R S 09/09/2017 NATE GEE MD Ot M75.111 INCOMPLETE ROTATR-CUFF TEAR/RUPTR OF R S 09/12/2017 NATE GEE MD Ot M75.111 INCOMPLETE ROTATR-CUFF TEAR/RUPTR OF R S 09/28/2017 NATE GEE MD Ot M75.111 INCOMPLETE ROTATR-CUFF TEAR/RUPTR OF R S 10/06/2017 NATE GEE MD Ot M75.111 INCOMPLETE ROTATR-CUFF TEAR/RUPTR OF R S 10/12/2017 JOSE DE JESUS GRAJEDA, GAVINO R Ot Z12.31 ENCNTR SCREEN MAMMOGRAM FOR MALIGNANT NE 10/18/2017 GAVINO DELA CRUZ MD R Ot Z12.31 ENCNTR SCREEN MAMMOGRAM FOR MALIGNANT NE 10/28/2017 GAVINO DELA CRUZ MD R Ot Z12.31 ENCNTR SCREEN MAMMOGRAM FOR MALIGNANT NE 11/07/2017 NATE GEE MD Ot M75.111 INCOMPLETE ROTATR-CUFF TEAR/RUPTR OF R S 11/11/2017 NATE GEE MD Ot M75.111 INCOMPLETE ROTATR-CUFF TEAR/RUPTR OF R S 11/11/2017 NATE GEE MD Ot M75.111 INCOMPLETE ROTATR-CUFF TEAR/RUPTR OF R S 11/15/2017 NATE GEE MD Ot M75.111 INCOMPLETE ROTATR-CUFF TEAR/RUPTR OF R S 11/22/2017 NATE GEE MD Ot M75.111 INCOMPLETE ROTATR-CUFF TEAR/RUPTR OF R S 12/01/2017 NATE GEE MD Ot M75.111 INCOMPLETE ROTATR-CUFF TEAR/RUPTR OF R S 2017 NATE GEE MD Ot M75.111 INCOMPLETE ROTATR-CUFF TEAR/RUPTR OF R S 12/20/2017 Ot Z01.818 EN COUNTER FOR OTHER PREPROCEDURAL EXAMIN 12/28/2017 GERARD GRAJEDA, NATE Mitchell Ot M75.111 INCOMPLETE ROTATR-CUFF TEAR/RUPTR OF R S 12/29/2017 Ot E11.9 TYPE 2 DIABETES MELLITUS WITHOUT COMPLIC 12/29/2017 Ot E66.01 MOR BID (SEVERE) OBESITY DUE TO EXCESS CA 12/29/2017 Ot E78.5 HYPE RLIPIDEMIA, UNSPECIFIED 12/29/2017 Ot F32.9 NEDRA R DEPRESSIVE DISORDER, SINGLE EPISOD 12/29/2017 Ot I10 ESSENT IAL (PRIMARY) HYPERTENSION 12/29/2017 Ot I47.1 SUPR AVENTRICULAR TACHYCARDIA 12/29/2017 Ot I48.91 UNS PECIFIED ATRIAL FIBRILLATION 12/29/2017 Ot K21.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 12/29/2017 Ot N85.02 END OMETRIAL INTRAEPITHELIAL NEOPLASIA [E 12/29/2017 Ot N95.0 POST MENOPAUSAL BLEEDING 12/29/2017 Ot Z68.42 BOD Y MASS INDEX (BMI) 45.0-49.9, ADULT 12/29/2017 Ot Z79.84 FAYE G TERM (CURRENT) USE OF ORAL HYPOGLYC 12/29/2017 Ot Z79.899 OT HER SKILLED NURSING (CURRENT) DRUG THERAPY 12/29/2017 Ot Z86.718 PE RSONAL HISTORY OF OTHER VENOUS THROMBO 12/29/2017 Ot Z87.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 DEPENDENCE 01/02/2018 Ot E11.9 TYPE 2 DIABETES MELLITUS WITHOUT COMPLIC 01/02/2018 Ot E66.01 MOR BID (SEVERE) OBESITY DUE TO EXCESS CA 01/02/2018 Ot E78.5 HYPE RLIPIDEMIA, UNSPECIFIED 01/02/2018 Ot F32.9 NEDRA R DEPRESSIVE DISORDER, SINGLE EPISOD 01/02/2018 Ot I10 ESSENT IAL (PRIMARY) HYPERTENSION 01/02/2018 Ot I47.1 SUPR AVENTRICULAR TACHYCARDIA 01/02/2018 Ot I48.91 UNS PECIFIED ATRIAL FIBRILLATION 01/02/2018 Ot K21.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 01/02/2018 Ot N85.02 END OMETRIAL INTRAEPITHELIAL NEOPLASIA [E 01/02/2018 Ot N95.0 POST MENOPAUSAL BLEEDING 01/02/2018 Ot Z68.42 BOD Y MASS INDEX (BMI) 45.0-49.9, ADULT 01/02/2018 Ot Z79.84 FAYE G TERM (CURRENT) USE OF ORAL HYPOGLYC 01/02/2018 Ot Z79.899 OT HER SKILLED NURSING (CURRENT) DRUG THERAPY 01/02/2018 Ot Z86.718 PE RSONAL HISTORY OF OTHER VENOUS THROMBO 01/02/2018 Ot Z87.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 DEPENDENCE 01/04/2018 DELIA TRIANA MD Ot R06.09 OTHER FORMS OF DYSPNEA 01/11/2018 TELLONICOLE ENGLISH DOI Ot I82.40 2 ACUTE EMBOLISM AND THOMBOS UNSP DEEP VEI 01/11/2018 DELIA TRIANA MD Ot I82.412 ACUTE EMBOLISM AND THROMBOSIS OF LEFT FE 01/11/2018 DELIA TRIANA MD Ot I82.412 ACUTE EMBOLISM AND THROMBOSIS OF LEFT FE 01/11/2018 NATE WU DO Ot I82.412 ACUTE EMBOLISM AND THROMBOSIS OF LEFT FE 01/11/2018 DELIA TRIANA MD Ot I82.412 ACUTE EMBOLISM AND THROMBOSIS OF LEFT FE 01/11/2018 DELIA TRIANA MD Ot I82.4Y2 AC EMBLSM AND THOMBOS UNSP DEEP VEINS OF 01/11/2018 DELIA TRIANA MD, Ot I82.4Y2 AC EMBLSM AND THOMBOS UNSP DEEP VEINS OF 01/11/2018 DELIA TRIANA MD Ot R30 .0 DYSURIA 01/11/2018 DELIA TRIANA MD, Ot I82.4Y2 AC EMBLSM AND THOMBOS UNSP DEEP VEINS OF 01/11/2018 DELIA TRIANA MD Ot Z79.01 SKILLED NURSING (CURRENT) USE OF ANTICOAGULANT 01/11/2018 DELIA TRIANA MD Ot N39 .0 URINARY TRACT INFECTION, SITE NOT SPECIF 01/11/2018 DELIA TRIANA MD Ot Z09 ENCNTR FOR F/U EXAM AFT TRTMT FOR COND O 01/11/2018 DELIA TRIANA MD, Ot I82.4Y2 AC EMBLSM AND THOMBOS UNSP DEEP VEINS OF 01/11/2018 DELIA TRIANA MD Ot Z51.81 ENCOUNTER FOR THERAPEUTIC DRUG LEVEL MON 01/11/2018 DELIA TRIANA MD, Ot Z79.01 CREATIVE SERVICES COORDINATOR (CURRENT) USE OF ANTICOAGULANT 01/11/2018 DELIA TRIANA MD, Ot I82.412 ACUTE EMBOLISM AND THROMBOSIS OF LEFT FE 01/11/2018 DELIA TRIANA MD, Ot Z79.01 SKILLED NURSING (CURRENT) USE OF ANTICOAGULANT 01/11/2018 DELIA TRIANA MD, Ot I82.412 ACUTE EMBOLISM AND THROMBOSIS OF LEFT FE 01/11/2018 DELIA TRIANA MD, Ot N39 .0 URINARY TRACT INFECTION, SITE NOT SPECIF 01/11/2018 DELIA TRIANA MD, Ot I82.4Y1 AC EMBLSM AND THOMBOS UNSP DEEP VEINS OF 01/11/2018 DELIA TRIANA MD, Ot N39 .0 URINARY TRACT INFECTION, SITE NOT SPECIF 01/11/2018 DELIA TRIANA MD, Ot N39 .0 URINARY TRACT INFECTION, SITE NOT SPECIF 01/11/2018 DELIA TRIANA MD, Ot Z79.01 CREATIVE SERVICES COORDINATOR (CURRENT) USE OF ANTICOAGULANT 01/11/2018 DELIA TRIANA MD, Ot Z51.81 ENCOUNTER FOR THERAPEUTIC DRUG LEVEL MON 01/11/2018 DELIA TRIANA MD, Ot Z79.01 CREATIVE SERVICES COORDINATOR (CURRENT) USE OF ANTICOAGULANT 01/12/2018 CHARLY JOSE MD Ot I10 ESSENTIAL (PRIMARY) HYPERTENSION 01/12/2018 CHARLY JOSE MD, Ot I34. 0 NONRHEUMATIC MITRAL (VALVE) INSUFFICIENC 01/12/2018 CHARLY JOSE MD Ot I47. 1 SUPRAVENTRICULAR TACHYCARDIA 01/12/2018 CHARLY JOSE MD Ot I48. 0 PAROXYSMAL ATRIAL FIBRILLATION 01/12/2018 CHARLY JOSE MD, Ot I82.492 ACUTE EMBOLISM AND THROMBOSIS OF DEEP VE 01/12/2018 CHARLY JOSE MD Ot R00. 2 PALPITATIONS 01/18/2018 ADONAY DUARTE APRN Ot E11.42 TYPE 2 DIABETES MELLITUS WITH DIABETIC P 01/18/2018 ADONAY DUARTE APRN Ot E78.00 PURE HYPERCHOLESTEROLEMIA, UNSPECIFIED 01/18/2018 ADONAY DUARTE APRN Ot F32 .9 MAJOR DEPRESSIVE DISORDER, SINGLE EPISOD 01/18/2018 ADONAY DUARTE APRN Ot I10 ESSENTIAL (PRIMARY) HYPERTENSION 01/18/2018 ADONAY DUARTE APRN Ot I48.91 UNSPECIFIED ATRIAL FIBRILLATION 01/18/2018 ADONAY DUARTE APRN Ot K21 .9 GASTRO-ESOPHAGEAL REFLUX DISEASE WITHOUT 01/18/2018 ADONAY DUARTE APRN Ot R00 .2 PALPITATIONS 01/18/2018 ADONAY DUARTE APRN Ot R06.00 DYSPNEA, UNSPECIFIED 01/18/2018 ADONAY DUARTE APRN Ot Z79.01 CREATIVE SERVICES COORDINATOR (CURRENT) USE OF ANTICOAGULANT 01/18/2018 ADONAY DUARTE APRN Ot Z79 .4 SKILLED NURSING (CURRENT) USE OF INSULIN 01/18/2018 ADONAY DUARTE APRN Ot Z79.82 CREATIVE SERVICES COORDINATOR (CURRENT) USE OF ASPIRIN 01/18/2018 ADONAY DUARTE APRN Ot Z80 .0 FAMILY HISTORY OF MALIGNANT NEOPLASM OF 01/18/2018 ADONAY DUARTE APRN Ot Z82.49 FAMILY HX OF ISCHEM HEART DIS AND OTH DI 01/18/2018 ADONAY DUARTE APRN Ot Z86.718 PERSONAL HISTORY OF OTHER VENOUS THROMBO 01/18/2018 ADONAY DUARTE APRN Ot Z87.19 PERSONAL HISTORY OF OTHER DISEASES OF TH 01/18/2018 ADONAY DUARTE APRN Ot Z87.440 PERSONAL HISTORY OF URINARY (TRACT) INFE 01/18/2018 ADONAY DUARTE APRN Ot Z87.891 PERSONAL HISTORY OF NICOTINE DEPENDENCE 01/18/2018 ADONAY DUARTE APRN Ot Z88 .8 ALLERGY STATUS TO [facility] DRUG/MEDS/BIOL SUB 01/19/2018 TALYA VALVERDE Ot E78.2 MIXED HYPERLIPIDEMIA 01/19/2018 TALYA VALVERDE Ot I10 ESSENTIAL (PRIMARY) HYPERTENSION 01/19/2018 KAMILAH GRAJEDA, DELIA Boo Ot R06.09 OTHER FORMS OF DYSPNEA 01/20/2018 ADONAY DUARTE APRN Ot E11.42 TYPE 2 DIABETES MELLITUS WITH DIABETIC P 01/20/2018 ADONAY DUARTE APRN Ot E78.00 PURE HYPERCHOLESTEROLEMIA, UNSPECIFIED 01/20/2018 ADONAY DUARTE APRN Ot F32 .9 MAJOR DEPRESSIVE DISORDER, SINGLE EPISOD 01/20/2018 ADONAY DUARTE APRN Ot I10 ESSENTIAL (PRIMARY) HYPERTENSION 01/20/2018 ADONAY DUARTE APRN Ot I48.91 UNSPECIFIED ATRIAL FIBRILLATION 01/20/2018 ADONAY DUARTE APRN Ot K21 .9 GASTRO-ESOPHAGEAL REFLUX DISEASE WITHOUT 01/20/2018 ADONAY DUARTE APRN Ot R00 .2 PALPITATIONS 01/20/2018 ADONAY DUARTE APRN Ot R06.00 DYSPNEA, UNSPECIFIED 01/20/2018 ADONAY DUARTE APRN Ot Z79.01 CREATIVE SERVICES COORDINATOR (CURRENT) USE OF ANTICOAGULANT 01/20/2018 ADONAY DUARTE APRN Ot Z79 .4 SKILLED NURSING (CURRENT) USE OF INSULIN 01/20/2018 ADONAY DUARTE APRN Ot Z79.82 CREATIVE SERVICES COORDINATOR (CURRENT) USE OF ASPIRIN 01/20/2018 ADONAY DUARTE APRN Ot Z80 .0 FAMILY HISTORY OF MALIGNANT NEOPLASM OF 01/20/2018 ADONAY DUARTE APRN Ot Z82.49 FAMILY HX OF ISCHEM HEART DIS AND OTH DI 01/20/2018 ADONAY DUARTE APRN Ot Z86.718 PERSONAL HISTORY OF OTHER VENOUS THROMBO 01/20/2018 ADONAY DUARTE APRN Ot Z87.19 PERSONAL HISTORY OF OTHER DISEASES OF TH 01/20/2018 ADONAY DUARTE APRN Ot Z87.440 PERSONAL HISTORY OF URINARY (TRACT) INFE 01/20/2018 ADONAY DUARTE APRN Ot Z87.891 PERSONAL HISTORY OF NICOTINE DEPENDENCE 01/20/2018 ADONAY DUARTE APRN Ot Z88 .8 ALLERGY STATUS TO [facility] DRUG/MEDS/BIOL SUB 01/23/2018 CHARLY JOSE MD Ot I10 ESSENTIAL (PRIMARY) HYPERTENSION 01/23/2018 CHARLY JOSE MD Ot I34. 0 NONRHEUMATIC MITRAL (VALVE) INSUFFICIENC 01/23/2018 CHARLY JOSE MD Ot I47. 1 SUPRAVENTRICULAR TACHYCARDIA 01/23/2018 CHARLY JOSE MD, Ot I48. 0 PAROXYSMAL ATRIAL FIBRILLATION 01/23/2018 CHARLY JOSE MD Ot I82.492 ACUTE EMBOLISM AND THROMBOSIS OF [place] 01/23/2018 CHARLY JOSE MD Ot R00. 2 PALPITATIONS 01/27/2018 KAMILAH GRAJEDA, DELIA Boo Ot R06.09 OTHER FORMS OF DYSPNEA 01/27/2018 CHARLY JOSE MD Ot I10 ESSENTIAL (PRIMARY) HYPERTENSION 01/27/2018 CHARLY JOSE MD, Ot I34. 0 NONRHEUMATIC MITRAL (VALVE) INSUFFICIENC 01/27/2018 CHARLY JOSE MD Ot I47. 1 SUPRAVENTRICULAR TACHYCARDIA 01/27/2018 CHARLY JOSE MD Ot I48. 0 PAROXYSMAL ATRIAL FIBRILLATION 01/27/2018 CHARLY JOSE MD Ot I82.492 ACUTE EMBOLISM AND THROMBOSIS OF [place] 01/27/2018 CHARLY JOSE MD Ot R00. 2 PALPITATIONS 01/27/2018 TALYA VALVERDE Ot E78.2 MIXED HYPERLIPIDEMIA 01/27/2018 TALYA VALVERDE Ot I10 ESSENTIAL (PRIMARY) HYPERTENSION 02/10/2018 NATE GEE MD Ot M24.112 OTHER ARTICULAR CARTILAGE DISORDERS, LEF 02/10/2018 NATE GEE MD Ot M25.812 OTHER SPECIFIED JOINT DISORDERS, LEFT SH 02/10/2018 NATE GEE MD Ot S46.012A STRAIN OF MUSC/TEND THE ROTATOR CUFF OF 02/10/2018 NATE GEE MD Ot S49.92XA UNSP INJURY OF LEFT SHOULDER AND UPPER A 02/22/2018 NATE GEE MD Ot M24.112 OTHER ARTICULAR CARTILAGE DISORDERS, LEF 02/22/2018 NATE GEE MD P Ot M25.812 OTHER SPECIFIED JOINT DISORDERS, LEFT SH 02/22/2018 NATE GEE MD Ot S46.012A STRAIN OF MUSC/TEND THE ROTATOR CUFF OF 02/22/2018 NATE GEE MD P Ot S49.92XA UNSP INJURY OF LEFT SHOULDER AND UPPER A 02/28/2018 FRANKLIN SAMPSON APRN Ot G47.9 SLEEP DISORDER, UNSPECIFIED 03/02/2018 FRANKLIN SAMPSON APRN Ot R06.02 SHORTNESS OF BREATH 03/02/2018 FRANKLIN SAMPSON APRN Ot Z86.718 PERSONAL HISTORY OF OTHER VENOUS THROMBO 03/02/2018 FRANKLIN SAMPSON APRN Ot Z87.891 PERSONAL HISTORY OF NICOTINE DEPENDENCE 03/10/2018 FRANKLIN SAMPSON APRN Ot R06.02 SHORTNESS OF BREATH 03/10/2018 FRANKLIN SAMPSON APRN Ot Z86.718 PERSONAL HISTORY OF OTHER VENOUS THROMBO 03/10/2018 FRANKLIN SAMPSON APRN Ot Z87.891 PERSONAL HISTORY OF NICOTINE DEPENDENCE 03/10/2018 CAMILLA, FRANKLIN E EDGE BURNISHER Ot R06.02 SHORTNESS OF BREATH 03/10/2018 CAMILLA, FRANKLIN E EDGE BURNISHER Ot Z86.718 PERSONAL HISTORY OF OTHER VENOUS THROMBO 03/10/2018 CAMILLA, FRANKLIN E EDGE BURNISHER Ot Z87.891 PERSONAL HISTORY OF NICOTINE DEPENDENCE 03/16/2018 MISAEL SAMPSONINE E EDGE BURNISHER Ot G47.9 SLEEP DISORDER, UNSPECIFIED 03/22/2018 CAMILLAMISAEL HIGGINBOTHAMINE E EDGE BURNISHER Ot G47.10 HYPERSOMNIA, UNSPECIFIED 03/22/2018 CAMILLA, FRANKLIN E EDGE BURNISHER Ot G47.33 OBSTRUCTIVE SLEEP APNEA (ADULT) (PEDIATR 03/22/2018 CAMILLA, FRANKLIN E EDGE BURNISHER Ot I47.1 SUPRAVENTRICULAR TACHYCARDIA 03/29/2018 CAMILLA, FRANKLIN E EDGE BURNISHER Ot G47.10 HYPERSOMNIA, UNSPECIFIED 03/29/2018 CAMILLA, FRANKLIN E EDGE BURNISHER Ot G47.33 OBSTRUCTIVE SLEEP APNEA (ADULT) (PEDIATR 03/29/2018 MISAEL SAMPSONINE E EDGE BURNISHER Ot I47.1 SUPRAVENTRICULAR TACHYCARDIA 03/31/2018 MISAEL SAMPSONINE E EDGE BURNISHER Ot G47.10 HYPERSOMNIA, UNSPECIFIED 03/31/2018 CAMILLA, FRANKLIN E EDGE BURNISHER Ot G47.33 OBSTRUCTIVE SLEEP APNEA (ADULT) (PEDIATR 03/31/2018 CAMILLA, FRANKLIN E EDGE BURNISHER Ot I47.1 SUPRAVENTRICULAR TACHYCARDIA 04/11/2018 MISAEL SAMPSONINE E EDGE BURNISHER Ot R06.02 SHORTNESS OF BREATH 04/11/2018 FRANKLIN SAMPSON EDGE BURNISHER Ot Z86.718 PERSONAL HISTORY OF OTHER VENOUS THROMBO 04/11/2018 MISAEL SAMPSONINE E EDGE BURNISHER Ot Z87.891 PERSONAL HISTORY OF NICOTINE DEPENDENCE 04/24/2018 MISAEL SAMPSONINE E EDGE BURNISHER Ot R06.02 SHORTNESS OF BREATH 04/24/2018 MISAEL SAMPSONINE E EDGE BURNISHER Ot Z86.718 PERSONAL HISTORY OF OTHER VENOUS THROMBO 04/24/2018 MISAEL SAMPSONINE E EDGE BURNISHER Ot Z87.891 PERSONAL HISTORY OF NICOTINE DEPENDENCE 05/11/2018 MISAEL SAMPSONINE E EDGE BURNISHER Ot G47.10 HYPERSOMNIA, UNSPECIFIED 05/11/2018 CAMILLA, FRANKLIN E EDGE BURNISHER Ot G47.33 OBSTRUCTIVE SLEEP APNEA (ADULT) (PEDIATR 05/11/2018 CAMILLA, FRANKLIN E EDGE BURNISHER Ot I47.1 SUPRAVENTRICULAR TACHYCARDIA 10/16/2018 OTHER, UNLISTED Ot Z12.31 ENCNTR SCREEN MAMMOGRAM FOR MALIGNANT NE 10/24/2018 CHARLY JOSE MD Ot I10 ESSENTIAL (PRIMARY) HYPERTENSION 10/24/2018 CHARLY JOSE MD Ot I34. 0 NONRHEUMATIC MITRAL (VALVE) INSUFFICIENC 10/24/2018 CHARLY JOSE MD Ot I47. 1 SUPRAVENTRICULAR TACHYCARDIA 10/24/2018 CHARLY JOSE MD Ot I48. 0 PAROXYSMAL ATRIAL FIBRILLATION 10/24/2018 CHARLY JOSE MD Ot I82.492 ACUTE EMBOLISM AND THROMBOSIS OF [place] 10/24/2018 CHARLY JOSE MD Ot R00. 2 PALPITATIONS 10/24/2018 KAMILAH GRAJEDA, DELIA Boo Ot R06.09 OTHER FORMS OF DYSPNEA 10/24/2018 TALYA VALVERDE Ot E78.2 MIXED HYPERLIPIDEMIA 10/24/2018 TALYA VALVERDE Ot I10 ESSENTIAL (PRIMARY) HYPERTENSION 10/24/2018 NATE GEE MD Ot M24.112 OTHER ARTICULAR CARTILAGE DISORDERS, LEF 10/24/2018 NATE GEE MD, Ot M25.812 OTHER SPECIFIED JOINT DISORDERS, LEFT SH 10/24/2018 NATE GEE MD, Ot S46.012A STRAIN OF MUSC/TEND THE ROTATOR CUFF OF 10/24/2018 NATE GEE MD Ot S49.92XA UNSP INJURY OF LEFT SHOULDER AND UPPER A 10/24/2018 FRANKLIN SAMPSON APRN Ot R06.02 SHORTNESS OF BREATH 10/24/2018 FRANKLIN SAMPSON APRN Ot Z86.718 PERSONAL HISTORY OF OTHER VENOUS THROMBO 10/24/2018 FRANKLIN SAMPSON APRN Ot Z87.891 PERSONAL HISTORY OF NICOTINE DEPENDENCE 10/24/2018 FRANKLIN SAMPSON APRN Ot R06.02 SHORTNESS OF BREATH 10/24/2018 FRANKLIN SAMPSON APRN Ot Z86.718 PERSONAL HISTORY OF OTHER VENOUS THROMBO 10/24/2018 FRANKLIN SAMPSON APRN Ot Z87.891 PERSONAL HISTORY OF NICOTINE DEPENDENCE 11/01/2018 JOSE DE JESUS GRAJEDA, GAVINO Carbajal Ot Z12.31 ENCNTR SCREEN MAMMOGRAM FOR MALIGNANT NE 11/01/2018 JOSE DE JESUS GRAJEDA, GAVINO Carbajal Ot Z12.31 ENCNTR SCREEN MAMMOGRAM FOR MALIGNANT NE 11/05/2018 CHARLY JOSE MD Ot E11. 9 TYPE 2 DIABETES MELLITUS WITHOUT COMPLIC 11/05/2018 CHARLY JOSE MD Ot E78. 5 HYPERLIPIDEMIA, UNSPECIFIED 11/05/2018 CHARLY JOSE MD Ot F32. 9 MAJOR DEPRESSIVE DISORDER, SINGLE EPISOD 11/05/2018 CHARLY JOSE MD Ot G47. 10 HYPERSOMNIA, UNSPECIFIED 11/05/2018 CHARLY JOSE MD Ot G47. 33 OBSTRUCTIVE SLEEP APNEA (ADULT) (PEDIATR 11/05/2018 CHARLY JOSE MD Ot I10 ESSENTIAL (PRIMARY) HYPERTENSION 11/05/2018 CHARLY JOSE MD Ot I47. 1 SUPRAVENTRICULAR TACHYCARDIA 11/05/2018 CHARLY JOSE MD Ot I48. 0 PAROXYSMAL ATRIAL FIBRILLATION 11/05/2018 CHARLY JOSE MD Ot I73. 9 PERIPHERAL VASCULAR DISEASE, UNSPECIFIED 11/05/2018 CHARLY JOSE MD Ot J30. 2 OTHER SEASONAL ALLERGIC RHINITIS 11/05/2018 CHARLY JOSE MD Ot M54. 9 DORSALGIA, UNSPECIFIED 11/05/2018 CHARLY JOSE MD Ot R00. 2 PALPITATIONS 11/05/2018 CHARLY JOSE MD Ot Z79. 4 CREATIVE SERVICES COORDINATOR (CURRENT) USE OF INSULIN 11/05/2018 CHARLY JOSE MD Ot Z79.899 OTHER CREATIVE SERVICES COORDINATOR (CURRENT) DRUG THERAPY 11/05/2018 CHARLY JOSE MD Ot Z86.718 PERSONAL HISTORY OF OTHER VENOUS THROMBO 11/05/2018 CHARLY JOSE MD Ot Z87.891 PERSONAL HISTORY OF NICOTINE DEPENDENCE 11/06/2018 CHARLY JOSE MD Ot E11. 9 TYPE 2 DIABETES MELLITUS WITHOUT COMPLIC 11/06/2018 CHARLY JOSE MD Ot E78. 5 HYPERLIPIDEMIA, UNSPECIFIED 11/06/2018 CHARLY JOSE MD Ot F32. 9 MAJOR DEPRESSIVE DISORDER, SINGLE EPISOD 11/06/2018 CHARLY JOSE MD Ot G47. 10 HYPERSOMNIA, UNSPECIFIED 11/06/2018 CHARLY JOSE MD Ot G47. 33 OBSTRUCTIVE SLEEP APNEA (ADULT) (PEDIATR 11/06/2018 CHARLY JOSE MD Ot I10 ESSENTIAL (PRIMARY) HYPERTENSION 11/06/2018 CHARLY JOSE MD Ot I47. 1 SUPRAVENTRICULAR TACHYCARDIA 11/06/2018 CHARLY JOSE MD Ot I48. 0 PAROXYSMAL ATRIAL FIBRILLATION 11/06/2018 CHARLY JOSE MD Ot I73. 9 PERIPHERAL VASCULAR DISEASE, UNSPECIFIED 11/06/2018 CHARLY JOSE MD Ot J30. 2 OTHER SEASONAL ALLERGIC RHINITIS 11/06/2018 CHARLY JOSE MD Ot M54. 9 DORSALGIA, UNSPECIFIED 11/06/2018 CHARLY JOSE MD Ot R00. 2 PALPITATIONS 11/06/2018 CHARLY JOSE MD Ot Z79. 4 CREATIVE SERVICES COORDINATOR (CURRENT) USE OF INSULIN 11/06/2018 CHARLY JOSE MD, Ot Z79.899 OTHER SKILLED NURSING (CURRENT) DRUG THERAPY 11/06/2018 CHARLY JOSE MD Ot Z86.718 PERSONAL HISTORY OF OTHER VENOUS THROMBO 11/06/2018 CHARLY JOSE MD Ot Z87.891 PERSONAL HISTORY OF NICOTINE DEPENDENCE 12/01/2018 SAWYER TELLO DO Ot E11.40 TYPE 2 DIABETES MELLITUS WITH DIABETIC N 12/01/2018 SAWYER TELLO DO Ot E11.61 8 TYPE 2 DIABETES MELLITUS WITH OTHER DIAB 12/01/2018 SAWYER TELLO DO Ot E66.01 MORBID (SEVERE) OBESITY DUE TO EXCESS CA 12/01/2018 SAWYER TELLO DO Ot E78.5 HYPERLIPIDEMIA, UNSPECIFIED 12/01/2018 SAWYER TELLO DO Ot F32.9 MAJOR DEPRESSIVE DISORDER, SINGLE EPISOD 12/01/2018 SAWYER TELLO DO Ot F99 MENTAL DISORDER, NOT OTHERWISE SPECIFIED 12/01/2018 SAWYER TELLO DO Ot G47.33 OBSTRUCTIVE SLEEP APNEA (ADULT) (PEDIATR 12/01/2018 SAWYER TELLO DO Ot I10 ESSENTIAL (PRIMARY) HYPERTENSION 12/01/2018 SAWYER TELLO DO Ot I21.4 NON-ST ELEVATION (NSTEMI) MYOCARDIAL INF 12/01/2018 SAWYER TELLO DO Ot I24.9 ACUTE ISCHEMIC HEART DISEASE, UNSPECIFIE 12/01/2018 SAWYER TELLO DO Ot I25.11 9 ATHSCL HEART DISEASE OF [place] COR ART W 12/01/2018 NICOLE TELLO DOI Ot I48.0 PAROXYSMAL ATRIAL FIBRILLATION 12/01/2018 ELISHA MCKNIGHT SAWYER Ot J45.90 9 UNSPECIFIED ASTHMA, UNCOMPLICATED 12/01/2018 ELISHA MCKNIGHT SAWYER Ot K21.9 GASTRO-ESOPHAGEAL REFLUX DISEASE WITHOUT 12/01/2018 ELISHA MCKNIGHT SAWYER Ot K59.09 OTHER CONSTIPATION 12/01/2018 TELLO DO SAWYER Ot M19.91 PRIMARY OSTEOARTHRITIS, UNSPECIFIED SITE 12/01/2018 ELISHA MCKNIGHT SAWYER Ot Z68.41 BODY MASS INDEX (BMI) 40.0-44.9, ADULT 12/01/2018 NICOLE TELLO DOI Ot Z79.4 SKILLED NURSING (CURRENT) USE OF INSULIN 12/01/2018 NICOLE TELLO DOI Ot Z87.89 1 PERSONAL HISTORY OF NICOTINE DEPENDENCE 12/21/2018 TERRY BENNETT MD Ot E11.9 TYPE 2 DIABETES MELLITUS WITHOUT COMPLIC 12/21/2018 TERRY BENNETT MD Ot E78.0 0 PURE HYPERCHOLESTEROLEMIA, UNSPECIFIED 12/21/2018 TERRY BENNETT MD Ot F32.9 MAJOR DEPRESSIVE DISORDER, SINGLE EPISOD 12/21/2018 TERRY BENNETT MD Ot F41.9 ANXIETY DISORDER, UNSPECIFIED 12/21/2018 TERRY BENNETT MD Ot G47.3 0 SLEEP APNEA, UNSPECIFIED 12/21/2018 TERRY BENNETT MD Ot G62.9 POLYNEUROPATHY, UNSPECIFIED 12/21/2018 TERRY BENNETT MD Ot G89.2 9 OTHER CHRONIC PAIN 12/21/2018 TERRY BENNETT MD Ot I10 ESSENTIAL (PRIMARY) HYPERTENSION 12/21/2018 TERRY BENNETT MD Ot I21.4 NON-ST ELEVATION (NSTEMI) MYOCARDIAL INF 12/21/2018 TERRY BENNETT MD Ot I25.1 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 12/21/2018 TERRY BENNETT MD Ot I48.9 1 UNSPECIFIED ATRIAL FIBRILLATION 12/21/2018 TERRY BENNETT MD Ot J45.9 09 UNSPECIFIED ASTHMA, UNCOMPLICATED 12/21/2018 TERRY BENNETT MD Ot K21.9 GASTRO-ESOPHAGEAL REFLUX DISEASE WITHOUT 12/21/2018 TERRY BENNETT MD Ot K59.0 9 OTHER CONSTIPATION 12/21/2018 TERRY BENNETT MD Ot M14.6 71 [place], RIGHT ANKLE AND FOOT 12/21/2018 TERRY BENNETT MD Ot M14.6 72 [place], LEFT ANKLE AND FOOT 12/21/2018 TERRY BENNETT MD Ot M19.9 0 UNSPECIFIED OSTEOARTHRITIS, UNSPECIFIED 12/21/2018 TERRY BENNETT MD Ot M54.5 LOW BACK PAIN 12/21/2018 TERRY BENNETT MD Ot R06.0 0 DYSPNEA, UNSPECIFIED 12/21/2018 TERRY BENNETT MD Ot R07.9 CHEST PAIN, UNSPECIFIED 12/21/2018 TERRY BENNETT MD Ot Z79.8 2 SKILLED NURSING (CURRENT) USE OF ASPIRIN 12/21/2018 TERRY BENNETT MD Ot Z88.8 ALLERGY STATUS TO [facility] DRUG/MEDS/BIOL SUB 12/21/2018 TERRY BENNETT MD Ot Z91.0 18 ALLERGY TO OTHER FOODS 12/21/2018 TERRY BENNETT MD Ot Z91.0 38 OTHER INSECT ALLERGY STATUS 12/21/2018 TERRY BENNETT MD Ot Z91.0 9 OTH ALLERGY STATUS, OTH THAN TO DRUGS AN 12/31/2018 CALLUM ALCAZAR DO Ot E11.9 TYPE 2 DIABETES MELLITUS WITHOUT COMPLIC 12/31/2018 MEERA ALCAZAR DOA K Ot E66.01 MORBID (SEVERE) OBESITY DUE TO EXCESS CA 12/31/2018 MEERA ALCAZAR DOA K Ot E78.00 PURE HYPERCHOLESTEROLEMIA, UNSPECIFIED 12/31/2018 MEERA ALCAZAR DOA K Ot F32.9 MAJOR DEPRESSIVE DISORDER, SINGLE EPISOD 12/31/2018 MEERA ALCAZAR DOA K Ot F41.9 ANXIETY DISORDER, UNSPECIFIED 12/31/2018 MEERA ALCAZAR DOA K Ot G47.30 SLEEP APNEA, UNSPECIFIED 12/31/2018 MEERA ALCAZAR DOA K Ot G62.9 POLYNEUROPATHY, UNSPECIFIED 12/31/2018 OTTONIEL MCKNIGHT CALLUM K Ot I10 ESSENTIAL (PRIMARY) HYPERTENSION 12/31/2018 MEERA ALCAZAR DOA K Ot I25.1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 12/31/2018 CALLUM ALCAZAR DO Ot I25.2 OLD MYOCARDIAL INFARCTION 12/31/2018 OTTONIEL CALLUM MCKNIGHT Ot I48.91 UNSPECIFIED ATRIAL FIBRILLATION 12/31/2018 CALLUM ALCAZAR DO Ot J45.909 UNSPECIFIED ASTHMA, UNCOMPLICATED 12/31/2018 CALLUM ALCAZAR DO Ot K21.9 GASTRO-ESOPHAGEAL REFLUX DISEASE WITHOUT 12/31/2018 OTTONIEL CALLUM MCKNIGHT Ot R06.02 SHORTNESS OF BREATH 12/31/2018 OTTONIEL CALLUM MCKNIGHT Ot R06.4 HYPERVENTILATION 12/31/2018 OTTONIEL CALLUM MCKNIGHT Ot Z68.41 BODY MASS INDEX (BMI) 40.0-44.9, ADULT 12/31/2018 CALLUM ALCAZAR DO Ot Z79.4 SKILLED NURSING (CURRENT) USE OF INSULIN 12/31/2018 OTTONIEL CALLUM MCKNIGHT Ot Z79.51 CREATIVE SERVICES COORDINATOR (CURRENT) USE OF INHALED STERO 12/31/2018 OTTONIEL CALLUM MCKNIGHT Ot Z79.82 CREATIVE SERVICES COORDINATOR (CURRENT) USE OF ASPIRIN 12/31/2018 OTTONIEL CALLUM MCKNIGHT Ot Z80.0 FAMILY HISTORY OF MALIGNANT NEOPLASM OF 12/31/2018 OTTONIEL CALLUM MCKNIGHT Ot Z82.49 FAMILY HX OF ISCHEM HEART DIS AND OTH DI 12/31/2018 CALLUM ALCAZAR DO Ot Z86.718 PERSONAL HISTORY OF OTHER VENOUS THROMBO 12/31/2018 OTTONIEL CALLUM MCKNIGHT Ot Z87.19 PERSONAL HISTORY OF OTHER DISEASES OF TH 12/31/2018 CALLUM ALCAZAR DO Ot Z87.440 PERSONAL HISTORY OF URINARY (TRACT) INFE 12/31/2018 OTTONIEL MCKNIGHT CALLUM De Leon Ot Z87.891 PERSONAL HISTORY OF NICOTINE DEPENDENCE 12/31/2018 OTTONIEL CALLUM De Leon Ot Z88.8 ALLERGY STATUS TO [facility] DRUG/MEDS/BIOL SUB 12/31/2018 CALLUM ALCAZAR DO Ot Z91.14 PATIENT'S OTHER NONCOMPLIANCE WITH MEDIC 12/31/2018 OTTONIEL MCKNIGHT CALLUM De Leon Ot Z95.5 PRESENCE OF CORONARY ANGIOPLASTY IMPLANT 01/18/2019 SIVAKUMAR CONTRERAS MD Ot E11. 40 TYPE 2 DIABETES MELLITUS WITH DIABETIC N 01/18/2019 SIVAKUMAR CONTRERAS MD Ot E66. 01 MORBID (SEVERE) OBESITY DUE TO EXCESS CA 01/18/2019 SIVAKUMAR CONTRERAS MD Ot E78. 00 PURE HYPERCHOLESTEROLEMIA, UNSPECIFIED 01/18/2019 SIVAKUMAR CONTRERAS MD Ot F32. 9 MAJOR DEPRESSIVE DISORDER, SINGLE EPISOD 01/18/2019 SIVAKUMAR CONTRERAS MD Ot F41. 9 ANXIETY DISORDER, UNSPECIFIED 01/18/2019 SIVAKUMAR CONTRERAS MD Ot G47. 30 SLEEP APNEA, UNSPECIFIED 01/18/2019 SIVAKUMAR CONTRERAS MD Ot I10 ESSENTIAL (PRIMARY) HYPERTENSION 01/18/2019 SIVAKUMAR CONTRERAS MD Ot I25. 1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 01/18/2019 SIVAKUMAR CONTRERAS MD Ot I25. 2 OLD MYOCARDIAL INFARCTION 01/18/2019 SIVAKUMAR CONTRERAS MD Ot I48. 91 UNSPECIFIED ATRIAL FIBRILLATION 01/18/2019 SIVAKUMAR CONTRERAS MD Ot J45.909 UNSPECIFIED ASTHMA, UNCOMPLICATED 01/18/2019 SIVAKUMAR CONTRERAS MD Ot K21. 9 GASTRO-ESOPHAGEAL REFLUX DISEASE WITHOUT 01/18/2019 SIVAKUMAR CONTRERAS MD Ot N39. 0 URINARY TRACT INFECTION, SITE NOT SPECIF 01/18/2019 SIVAKUMAR CONTRERAS MD Ot R07. 9 CHEST PAIN, UNSPECIFIED 01/18/2019 SIVAKUAMR CONTRERAS MD Ot R11. 2 NAUSEA WITH VOMITING, UNSPECIFIED 01/18/2019 SIVAKUMAR CONTRERAS MD Ot Z68. 41 BODY MASS INDEX (BMI) 40.0-44.9, ADULT 01/18/2019 SIVAKUMAR CONTRERAS MD Ot Z79. 4 SKILLED NURSING (CURRENT) USE OF INSULIN 01/18/2019 SIVAKUMAR CONTRERAS MD Ot Z79. 82 SKILLED NURSING (CURRENT) USE OF ASPIRIN 01/18/2019 SIVAKUMAR CONTRERAS MD Ot Z86.718 PERSONAL HISTORY OF OTHER VENOUS THROMBO 01/18/2019 SIVAKUMAR CONTRERAS MD Ot Z87.440 PERSONAL HISTORY OF URINARY (TRACT) INFE 01/18/2019 SIVAKUMAR CONTRERAS MD Ot Z87.891 PERSONAL HISTORY OF NICOTINE DEPENDENCE 01/18/2019 SIVAKUMAR CONTERRAS MD Ot Z88. 8 ALLERGY STATUS TO [facility] DRUG/MEDS/BIOL SUB 01/18/2019 SIVAKUMAR CONTRERAS MD Ot Z95. 5 PRESENCE OF CORONARY ANGIOPLASTY IMPLANT 01/22/2019 SIVAKUMAR CONTRERAS MD Ot E11. 40 TYPE 2 DIABETES MELLITUS WITH DIABETIC N 01/22/2019 SIVAKUMAR CONTRERAS MD Ot E66. 01 MORBID (SEVERE) OBESITY DUE TO EXCESS CA 01/22/2019 SIVAKUMAR CONTRERAS MD Ot E78. 00 PURE HYPERCHOLESTEROLEMIA, UNSPECIFIED 01/22/2019 SIVAKUMAR CONTRERAS MD Ot F32. 9 MAJOR DEPRESSIVE DISORDER, SINGLE EPISOD 01/22/2019 SIVAKUMAR CONTRERAS MD Ot F41. 9 ANXIETY DISORDER, UNSPECIFIED 01/22/2019 SIVAKUMAR CONTRERAS MD Ot G47. 30 SLEEP APNEA, UNSPECIFIED 01/22/2019 SIVAKUMAR CONTRERAS MD Ot I10 ESSENTIAL (PRIMARY) HYPERTENSION 01/22/2019 SIVAKUMAR CONTRERAS MD Ot I25. 1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 01/22/2019 SIVAKUMAR CONTRERAS MD Ot I25. 2 OLD MYOCARDIAL INFARCTION 01/22/2019 SIVAKUMAR CONTRERAS MD Ot I48. 91 UNSPECIFIED ATRIAL FIBRILLATION 01/22/2019 SIVAKUMAR CONTRERAS MD Ot J45.909 UNSPECIFIED ASTHMA, UNCOMPLICATED 01/22/2019 SIVAKUMAR CONTRERAS MD Ot K21. 9 GASTRO-ESOPHAGEAL REFLUX DISEASE WITHOUT 01/22/2019 SIVAKUMAR CONTRERAS MD Ot N39. 0 URINARY TRACT INFECTION, SITE NOT SPECIF 01/22/2019 SIVAKUMAR CONTRERAS MD Ot R07. 9 CHEST PAIN, UNSPECIFIED 01/22/2019 SIVAKUMAR CONTRERAS MD Ot R11. 2 NAUSEA WITH VOMITING, UNSPECIFIED 01/22/2019 SIVAKUMAR CONTRERAS MD Ot Z68. 41 BODY MASS INDEX (BMI) 40.0-44.9, ADULT 01/22/2019 SIVAKUMAR CONTRERAS MD Ot Z79. 4 SKILLED NURSING (CURRENT) USE OF INSULIN 01/22/2019 SIVAKUMAR CONTRERAS MD Ot Z79. 82 SKILLED NURSING (CURRENT) USE OF ASPIRIN 01/22/2019 SIVAKUMAR CONTRERAS MD Ot Z86.718 PERSONAL HISTORY OF OTHER VENOUS THROMBO 01/22/2019 SIVAKUMAR CONTRERAS MD Ot Z87.440 PERSONAL HISTORY OF URINARY (TRACT) INFE 01/22/2019 SIVAKUMAR CONTRERAS MD Ot Z87.891 PERSONAL HISTORY OF NICOTINE DEPENDENCE 01/22/2019 SIVAKUMAR CONTRERAS MD Ot Z88. 8 ALLERGY STATUS TO OTH DRUG/MEDS/BIOL SUB 01/22/2019 DIANE GRAJEDA, SIVAKUMAR Isbell Ot Z95. 5 PRESENCE OF CORONARY ANGIOPLASTY IMPLANT 03/08/2019 SAWYER TELLO DO Ot E11.40 TYPE 2 DIABETES MELLITUS WITH DIABETIC N 03/08/2019 NICOLE TELLO DOI Ot E78.00 PURE HYPERCHOLESTEROLEMIA, UNSPECIFIED 03/08/2019 SAWYER TELLO DO Ot F41.8 OTHER SPECIFIED ANXIETY DISORDERS 03/08/2019 SAWYER TELLO DO Ot G47.30 SLEEP APNEA, UNSPECIFIED 03/08/2019 ELISHA MCKNIGHT SAWYER Ot G89.29 OTHER CHRONIC PAIN 03/08/2019 ELISHA MCKNIGHT SAWYER Ot I10 ESSENTIAL (PRIMARY) HYPERTENSION 03/08/2019 SAWYER TELLO DO Ot I25.1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 03/08/2019 NICOLE TELLO DOI Ot I48.91 UNSPECIFIED ATRIAL FIBRILLATION 03/08/2019 SAWYER TELLO DO Ot I82.40 9 ACUTE EMBOLISM AND THOMBOS UNSP DEEP VN 03/08/2019 SAWYER TELLO DO Ot J45.90 9 UNSPECIFIED ASTHMA, UNCOMPLICATED 03/08/2019 NICOLE TELLO DOI Ot K21.9 GASTRO-ESOPHAGEAL REFLUX DISEASE WITHOUT 03/08/2019 NICOLE TELLO DOI Ot K59.09 OTHER CONSTIPATION 03/08/2019 SAWYER TELLO DO Ot M19.90 UNSPECIFIED OSTEOARTHRITIS, UNSPECIFIED 03/08/2019 SAWYER TELLO DO Ot M54.9 DORSALGIA, UNSPECIFIED 03/08/2019 SAWYER TELLO DO Ot N39.0 URINARY TRACT INFECTION, SITE NOT SPECIF 03/08/2019 SAWYER TELLO DO Ot Z79.4 SKILLED NURSING (CURRENT) USE OF INSULIN 03/08/2019 NICOLE TELLO DOI Ot Z79.82 SKILLED NURSING (CURRENT) USE OF ASPIRIN 03/08/2019 SAWYER TELLO DO Ot Z80.0 FAMILY HISTORY OF MALIGNANT NEOPLASM OF 03/08/2019 SAWYER TELLO DO Ot Z82.49 FAMILY HX OF ISCHEM HEART DIS AND OTH DI 03/08/2019 SAWYER TELLO DO Ot Z83.3 FAMILY HISTORY OF DIABETES MELLITUS 03/08/2019 SAWYER TELLO DO Ot Z86.79 PERSONAL HISTORY OF OTHER DISEASES OF TH 03/08/2019 SAWYER TELLO DO Ot Z87.89 1 PERSONAL HISTORY OF NICOTINE DEPENDENCE 03/08/2019 SAWYER TELLO DO Ot Z88.8 ALLERGY STATUS TO [facility] DRUG/MEDS/BIOL SUB 03/08/2019 SAWYER TELLO DO Ot Z95.1 PRESENCE OF AORTOCORONARY BYPASS GRAFT 03/08/2019 SAWYER TELLO DO Ot E11.40 TYPE 2 DIABETES MELLITUS WITH DIABETIC N 03/08/2019 SAWYER TELLO DO Ot E78.00 PURE HYPERCHOLESTEROLEMIA, UNSPECIFIED 03/08/2019 SAWYER TELLO DO Ot F41.8 OTHER SPECIFIED ANXIETY DISORDERS 03/08/2019 SAWYER TELLO DO Ot G47.30 SLEEP APNEA, UNSPECIFIED 03/08/2019 SAWYER TELLO DO Ot G89.29 OTHER CHRONIC PAIN 03/08/2019 NICOLE TELLO DOI Ot I10 ESSENTIAL (PRIMARY) HYPERTENSION 03/08/2019 SAWYER TELLO DO Ot I25.1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 03/08/2019 NICOLE TELLO DOI Ot I48.91 UNSPECIFIED ATRIAL FIBRILLATION 03/08/2019 NICOLE TELLO DOI Ot I82.40 9 ACUTE EMBOLISM AND THOMBOS UNSP DEEP VN 03/08/2019 NICOLE TELLO DOI Ot J45.90 9 UNSPECIFIED ASTHMA, UNCOMPLICATED 03/08/2019 NICOLE TELLO DOI Ot K21.9 GASTRO-ESOPHAGEAL REFLUX DISEASE WITHOUT 03/08/2019 NICOLE TELLO DOI Ot K59.09 OTHER CONSTIPATION 03/08/2019 NICOLE TELLO DOI Ot M19.90 UNSPECIFIED OSTEOARTHRITIS, UNSPECIFIED 03/08/2019 SAWYER TELLO DO Ot M54.9 DORSALGIA, UNSPECIFIED 03/08/2019 NICOLE TELLO DOI Ot N39.0 URINARY TRACT INFECTION, SITE NOT SPECIF 03/08/2019 SAWYER TELLO DO Ot Z79.4 CREATIVE SERVICES COORDINATOR (CURRENT) USE OF INSULIN 03/08/2019 SAWYER TELLO DO Ot Z79.82 CREATIVE SERVICES COORDINATOR (CURRENT) USE OF ASPIRIN 03/08/2019 NICOLE TELLO DOI Ot Z80.0 FAMILY HISTORY OF MALIGNANT NEOPLASM OF 03/08/2019 SAWYER TELLO DO Ot Z82.49 FAMILY HX OF ISCHEM HEART DIS AND OTH DI 03/08/2019 SAWYER TELLO DO Ot Z83.3 FAMILY HISTORY OF DIABETES MELLITUS 03/08/2019 ELISHA MCKNIGHTSAWYER Ot Z86.79 PERSONAL HISTORY OF OTHER DISEASES OF TH 03/08/2019 ELISHA MCKNIGHTSAWYER Ot Z87.89 1 PERSONAL HISTORY OF NICOTINE DEPENDENCE 03/08/2019 TELLO SAWYER Ot Z88.8 ALLERGY STATUS TO [facility] DRUG/MEDS/BIOL SUB 03/08/2019 SAWYER TELLO DO Ot Z95.1 PRESENCE OF AORTOCORONARY BYPASS GRAFT 03/10/2019 RAFAELA GRAJEDA, SAMANTHA Roberts Ot E11.40 TYPE 2 DIABETES MELLITUS WITH DIABETIC N 03/10/2019 SAMANTHA RUSSO MD Ot E66.01 MORBID (SEVERE) OBESITY DUE TO EXCESS CA 03/10/2019 SAMANTHA RUSSO MD Ot F32.9 MAJOR DEPRESSIVE DISORDER, SINGLE EPISOD 03/10/2019 SAMANTHA RUSSO MD, Ot F41.9 ANXIETY DISORDER, UNSPECIFIED 03/10/2019 SAMANTHA RUSSO MD, Ot G47.30 SLEEP APNEA, UNSPECIFIED 03/10/2019 SAMANTHA RUSSO MD Ot I10 ESSENTIAL (PRIMARY) HYPERTENSION 03/10/2019 SAMANTHA RUSSO MD, Ot I25.1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 03/10/2019 SAMANTHA RUSSO MD, Ot I25.2 OLD MYOCARDIAL INFARCTION 03/10/2019 SAMANTHA RUSSO MD Ot I48.0 PAROXYSMAL ATRIAL FIBRILLATION 03/10/2019 SAMANTHA RUSSO MD Ot I95.9 HYPOTENSION, UNSPECIFIED 03/10/2019 SAMANTHA RUSSO MD, Ot J45.909 UNSPECIFIED ASTHMA, UNCOMPLICATED 03/10/2019 SAMANTHA RUSSO MD Ot K21.9 GASTRO-ESOPHAGEAL REFLUX DISEASE WITHOUT 03/10/2019 SAMANTHA RUSSO MD Ot M54.2 CERVICALGIA 03/10/2019 SAMANTHA RUSSO MD Ot M62.838 OTHER MUSCLE SPASM 03/10/2019 SAMANTHA RUSSO MD Ot R07.9 CHEST PAIN, UNSPECIFIED 03/10/2019 SAMANTHA RUSSO MD Ot Z79.01 SKILLED NURSING (CURRENT) USE OF ANTICOAGULANT 03/10/2019 SAMANTHA RUSSO MD Ot Z79.4 CREATIVE SERVICES COORDINATOR (CURRENT) USE OF INSULIN 03/10/2019 SAMANTHA RUSSO MD Ot Z79.51 CREATIVE SERVICES COORDINATOR (CURRENT) USE OF INHALED STERO 03/10/2019 SAMANTHA RUSSO MD, Ot Z79.899 OTHER SKILLED NURSING (CURRENT) DRUG THERAPY 03/10/2019 SAMANTHA RUSSO MD Ot Z80.0 FAMILY HISTORY OF MALIGNANT NEOPLASM OF 03/10/2019 SAMANTHA RUSSO MD, Ot Z82.49 FAMILY HX OF ISCHEM HEART DIS AND OTH DI 03/10/2019 SAMANTHA RUSSO MD, Ot Z86.718 PERSONAL HISTORY OF OTHER VENOUS THROMBO 03/10/2019 SAMANTHA RUSSO MD, Ot Z87.440 PERSONAL HISTORY OF URINARY (TRACT) INFE 03/10/2019 SAMANTHA RUSSO MD, Ot Z87.891 PERSONAL HISTORY OF NICOTINE DEPENDENCE 03/10/2019 SAMANTHA RUSSO MD, Ot Z88.8 ALLERGY STATUS TO [facility] DRUG/MEDS/BIOL SUB 03/10/2019 SAMANTHA RUSSO MD Ot Z95.5 PRESENCE OF CORONARY ANGIOPLASTY IMPLANT 03/14/2019 SAMANTHA RUSSO MD Ot E11.40 TYPE 2 DIABETES MELLITUS WITH DIABETIC N 03/14/2019 SAMANTHA RUSSO MD Ot E66.01 MORBID (SEVERE) OBESITY DUE TO EXCESS CA 03/14/2019 SAMANTHA RUSSO MD Ot F32.9 MAJOR DEPRESSIVE DISORDER, SINGLE EPISOD 03/14/2019 SAMANTHA RUSSO MD, Ot F41.9 ANXIETY DISORDER, UNSPECIFIED 03/14/2019 SAMANTHA RUSSO MD, Ot G47.30 SLEEP APNEA, UNSPECIFIED 03/14/2019 SAMANTHA RUSSO MD, Ot I10 ESSENTIAL (PRIMARY) HYPERTENSION 03/14/2019 SAMANTHA RUSSO MD, Ot I25.1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 03/14/2019 SAMANTHA RUSSO MD, Ot I25.2 OLD MYOCARDIAL INFARCTION 03/14/2019 SAMANTHA RUSSO MD, Ot I48.0 PAROXYSMAL ATRIAL FIBRILLATION 03/14/2019 SAMANTHA RUSSO MD, Ot I95.9 HYPOTENSION, UNSPECIFIED 03/14/2019 SAMANTHA RUSSO MD, Ot J45.909 UNSPECIFIED ASTHMA, UNCOMPLICATED 03/14/2019 SAMANTHA RUSSO MD, Ot K21.9 GASTRO-ESOPHAGEAL REFLUX DISEASE WITHOUT 03/14/2019 SAMANTHA RUSSO MD Ot M54.2 CERVICALGIA 03/14/2019 SAMANTHA RUSSO MD, Ot M62.838 OTHER MUSCLE SPASM 03/14/2019 SAMANTHA RUSSO MD, Ot R07.9 CHEST PAIN, UNSPECIFIED 03/14/2019 SAMANTHA RUSSO MD, Ot Z79.01 CREATIVE SERVICES COORDINATOR (CURRENT) USE OF ANTICOAGULANT 03/14/2019 SAMANTHA RUSSO MD Ot Z79.4 SKILLED NURSING (CURRENT) USE OF INSULIN 03/14/2019 SAMANTHA RUSSO MD, Ot Z79.51 SKILLED NURSING (CURRENT) USE OF INHALED STERO 03/14/2019 SAMANTHA RUSSO MD, Ot Z79.899 OTHER SKILLED NURSING (CURRENT) DRUG THERAPY 03/14/2019 SAMANTHA RUSSO MD, Ot Z80.0 FAMILY HISTORY OF MALIGNANT NEOPLASM OF 03/14/2019 SAMANTHA RUSSO MD, Ot Z82.49 FAMILY HX OF ISCHEM HEART DIS AND OTH DI 03/14/2019 SAMANTHA RUSSO MD, Ot Z86.718 PERSONAL HISTORY OF OTHER VENOUS THROMBO 03/14/2019 SAMANTHA RUSSO MD, Ot Z87.440 PERSONAL HISTORY OF URINARY (TRACT) INFE 03/14/2019 SAMANTHA RUSSO MD, Ot Z87.891 PERSONAL HISTORY OF NICOTINE DEPENDENCE 03/14/2019 SAMANTHA RUSSO MD, Ot Z88.8 ALLERGY STATUS TO [facility] DRUG/MEDS/BIOL SUB 03/14/2019 SAMANTHA RUSSO MD Ot Z95.5 PRESENCE OF CORONARY ANGIOPLASTY IMPLANT 03/29/2019 REBECA GRAJEDA, CHARLY Isbell Ot Z48.812 ENCNTR FOR SURGICAL AFTCR FOLLOWING SURG 03/29/2019 CHARLY JOSE MD Ot Z95. 5 PRESENCE OF CORONARY ANGIOPLASTY IMPLANT 04/02/2019 CHARLY JOSE MD Ot Z48.812 ENCNTR FOR SURGICAL AFTCR FOLLOWING SURG 04/02/2019 CHARLY JOSE MD Ot Z95. 5 PRESENCE OF CORONARY ANGIOPLASTY IMPLANT 04/04/2019 CHARLY JOSE MD Ot Z48.812 ENCNTR FOR SURGICAL AFTCR FOLLOWING SURG 04/04/2019 CHARLY JOSE MD Ot Z95. 5 PRESENCE OF CORONARY ANGIOPLASTY IMPLANT 04/13/2019 SAWYER TELLO DO Ot E11.40 TYPE 2 DIABETES MELLITUS WITH DIABETIC N 04/13/2019 SAWYER TELLO DO Ot E11.61 0 TYPE 2 DIABETES MELLITUS W DIABETIC NEUR 04/13/2019 SAWYER TELLO DO Ot E66.01 MORBID (SEVERE) OBESITY DUE TO EXCESS CA 04/13/2019 NICOLE TELLO DOI Ot E78.5 HYPERLIPIDEMIA, UNSPECIFIED 04/13/2019 NICOLE TELLO DOI Ot F32.9 MAJOR DEPRESSIVE DISORDER, SINGLE EPISOD 04/13/2019 NICOLE TELLO DOI Ot F41.9 ANXIETY DISORDER, UNSPECIFIED 04/13/2019 NICOLE TELLO DOI Ot G47.33 OBSTRUCTIVE SLEEP APNEA (ADULT) (PEDIATR 04/13/2019 NICOLE TELLO DOI Ot G89.4 CHRONIC PAIN SYNDROME 04/13/2019 NICOLE TELLO DOI Ot I10 ESSENTIAL (PRIMARY) HYPERTENSION 04/13/2019 NICOLE TELLO DOI Ot I25.11 9 ATHSCL HEART DISEASE OF [place] COR ART W 04/13/2019 NICOLE TELLO DOI Ot I25.2 OLD MYOCARDIAL INFARCTION 04/13/2019 NICOLE TELLO DOI Ot I48.0 PAROXYSMAL ATRIAL FIBRILLATION 04/13/2019 NICOLE TELLO DOI Ot K21.9 GASTRO-ESOPHAGEAL REFLUX DISEASE WITHOUT 04/13/2019 NICOLE TELLO DOI Ot K59.09 OTHER CONSTIPATION 04/13/2019 NICOLE TELLO DOI Ot Z68.41 BODY MASS INDEX (BMI) 40.0-44.9, ADULT 04/13/2019 SAWYER TELLO DO Ot Z79.01 SKILLED NURSING (CURRENT) USE OF ANTICOAGULANT 04/13/2019 SAWYER TELLO DO Ot Z79.4 CREATIVE SERVICES COORDINATOR (CURRENT) USE OF INSULIN 04/13/2019 SAWYER TELLO DO Ot Z87.89 1 PERSONAL HISTORY OF NICOTINE DEPENDENCE 04/13/2019 SAWYER TELLO DO Ot Z95.5 PRESENCE OF CORONARY ANGIOPLASTY IMPLANT 04/15/2019 SAWYER TELLO DO Ot E11.40 TYPE 2 DIABETES MELLITUS WITH DIABETIC N 04/15/2019 SAWYER TELLO DO Ot E11.61 0 TYPE 2 DIABETES MELLITUS W DIABETIC NEUR 04/15/2019 SAWYER TELLO DO Ot E66.01 MORBID (SEVERE) OBESITY DUE TO EXCESS CA 04/15/2019 SAWYER TELLO DO Ot E78.5 HYPERLIPIDEMIA, UNSPECIFIED 04/15/2019 SAWYER TELLO DO Ot F32.9 MAJOR DEPRESSIVE DISORDER, SINGLE EPISOD 04/15/2019 SAWYER TELLO DO Ot F41.9 ANXIETY DISORDER, UNSPECIFIED 04/15/2019 SAWYER TELLO DO Ot G47.33 OBSTRUCTIVE SLEEP APNEA (ADULT) (PEDIATR 04/15/2019 SAWYER TELLO DO Ot G89.4 CHRONIC PAIN SYNDROME 04/15/2019 SAWYER TELLO DO Ot I10 ESSENTIAL (PRIMARY) HYPERTENSION 04/15/2019 SAWYER TELLO DO Ot I25.11 9 ATHSCL HEART DISEASE OF [place] COR ART W 04/15/2019 SAWYER TELLO DO Ot I25.2 OLD MYOCARDIAL INFARCTION 04/15/2019 SAWYER TELLO DO Ot I48.0 PAROXYSMAL ATRIAL FIBRILLATION 04/15/2019 SAWYER TELLO DO Ot K21.9 GASTRO-ESOPHAGEAL REFLUX DISEASE WITHOUT 04/15/2019 SAWYER TELLO DO Ot K59.09 OTHER CONSTIPATION 04/15/2019 SAWYER TELLO DO Ot Z68.41 BODY MASS INDEX (BMI) 40.0-44.9, ADULT 04/15/2019 SAWYER TELLO DO Ot Z79.01 SKILLED NURSING (CURRENT) USE OF ANTICOAGULANT 04/15/2019 SAWYER TELLO DO Ot Z79.4 SKILLED NURSING (CURRENT) USE OF INSULIN 04/15/2019 SAWYER TELLO DO Ot Z87.89 1 PERSONAL HISTORY OF NICOTINE DEPENDENCE 04/15/2019 SAWYER TELLO DO Ot Z95.5 PRESENCE OF CORONARY ANGIOPLASTY IMPLANT 04/15/2019 SAWYER TELLO DO Ot E11.40 TYPE 2 DIABETES MELLITUS WITH DIABETIC N 04/15/2019 TELLO DO, SAWYER Ot E11.61 0 TYPE 2 DIABETES MELLITUS W DIABETIC NEUR 04/15/2019 ELISHA MCKNIGHT, SAWYER Ot E66.01 MORBID (SEVERE) OBESITY DUE TO EXCESS CA 04/15/2019 TELLO DO, SAWYER Ot E78.5 HYPERLIPIDEMIA, UNSPECIFIED 04/15/2019 ELISHA MCKNIGHT, SAWYER Ot F32.9 MAJOR DEPRESSIVE DISORDER, SINGLE EPISOD 04/15/2019 ELISHA MCKNIGHT SAWYER Ot F41.9 ANXIETY DISORDER, UNSPECIFIED 04/15/2019 ELISHA MCKNIGHT, SAWYER Ot G47.33 OBSTRUCTIVE SLEEP APNEA (ADULT) (PEDIATR 04/15/2019 ELISHA DO, SAWYER Ot G89.4 CHRONIC PAIN SYNDROME 04/15/2019 ELISHA MCKNIGHT, SAWYER Ot I10 ESSENTIAL (PRIMARY) HYPERTENSION 04/15/2019 ELISHA MCKNIGHT SAWYER Ot I25.11 9 ATHSCL HEART DISEASE OF [place] COR ART W 04/15/2019 ELISHA MCKNIGHT SAWYER Ot I25.2 OLD MYOCARDIAL INFARCTION 04/15/2019 ELISHA MCKNIGHT SAWYER Ot I48.0 PAROXYSMAL ATRIAL FIBRILLATION 04/15/2019 ELISHA MCKNIGHT SAWYER Ot K21.9 GASTRO-ESOPHAGEAL REFLUX DISEASE WITHOUT 04/15/2019 ELISHA MCKNIGHT, SAWYER Ot K59.09 OTHER CONSTIPATION 04/15/2019 ELISHA MCKNIGHT SAWYER Ot Z68.41 BODY MASS INDEX (BMI) 40.0-44.9, ADULT 04/15/2019 ELISHA MCKNIGHT SAWYER Ot Z79.01 SKILLED NURSING (CURRENT) USE OF ANTICOAGULANT 04/15/2019 ELISHA MCKNIGHT SAWYER Ot Z79.4 SKILLED NURSING (CURRENT) USE OF INSULIN 04/15/2019 ELISHA MCKNIGHT SAWYER Ot Z87.89 1 PERSONAL HISTORY OF NICOTINE DEPENDENCE 04/15/2019 ELISHA MCKNIGHT SAWYER Ot Z95.5 PRESENCE OF CORONARY ANGIOPLASTY IMPLANT 04/19/2019 ELISHA MCKNIGHT SAWYER Ot E11.40 TYPE 2 DIABETES MELLITUS WITH DIABETIC N 04/19/2019 ELISHA MCKNIGHT SAWYER Ot E11.61 0 TYPE 2 DIABETES MELLITUS W DIABETIC NEUR 04/19/2019 ELISHA MCKNIGHT SAWYER Ot E66.01 MORBID (SEVERE) OBESITY DUE TO EXCESS CA 04/19/2019 ELISHA MCKNIGHT SAWYER Ot E78.5 HYPERLIPIDEMIA, UNSPECIFIED 04/19/2019 ELISHA MCKNIGHT SAWYER Ot F32.9 MAJOR DEPRESSIVE DISORDER, SINGLE EPISOD 04/19/2019 ELISHA MCKNIGHT SAWYER Ot F41.9 ANXIETY DISORDER, UNSPECIFIED 04/19/2019 ELISHA MCKNIGHT SAWYER Ot G47.33 OBSTRUCTIVE SLEEP APNEA (ADULT) (PEDIATR 04/19/2019 ELISHA MCKNIGHT SAWYER Ot G89.4 CHRONIC PAIN SYNDROME 04/19/2019 ELISHA MCKNIGHT SAWYER Ot I10 ESSENTIAL (PRIMARY) HYPERTENSION 04/19/2019 ELISHA MCKNIGHT SAWYER Ot I25.11 9 ATHSCL HEART DISEASE OF [place] COR ART W 04/19/2019 ELISHA MCKNIGHT SAWYER Ot I25.2 OLD MYOCARDIAL INFARCTION 04/19/2019 ELISHA MCKNIGHT SAWYER Ot I48.0 PAROXYSMAL ATRIAL FIBRILLATION 04/19/2019 ELISHA MCKNIGHT SAWYER Ot K21.9 GASTRO-ESOPHAGEAL REFLUX DISEASE WITHOUT 04/19/2019 ELISHA MCKNIGHT SAWYER Ot K59.09 OTHER CONSTIPATION 04/19/2019 ELISHA MCKNIGHT SAWYER Ot Z68.41 BODY MASS INDEX (BMI) 40.0-44.9, ADULT 04/19/2019 NICOLE TELLO DOI Ot Z79.01 CREATIVE SERVICES COORDINATOR (CURRENT) USE OF ANTICOAGULANT 04/19/2019 NICOLE TELLO DOI Ot Z79.4 SKILLED NURSING (CURRENT) USE OF INSULIN 04/19/2019 NICOLE TELLO DOI Ot Z87.89 1 PERSONAL HISTORY OF NICOTINE DEPENDENCE 04/19/2019 ELISHA MCKNIGHT SAWYER Ot Z95.5 PRESENCE OF CORONARY ANGIOPLASTY IMPLANT 04/19/2019 ELISHA MCKNIGHT SAWYER Ot E11.40 TYPE 2 DIABETES MELLITUS WITH DIABETIC N 04/19/2019 NICOLE TELLO DOI Ot E11.61 0 TYPE 2 DIABETES MELLITUS W DIABETIC NEUR 04/19/2019 ELISHA MCKNIGHT SAWYER Ot E66.01 MORBID (SEVERE) OBESITY DUE TO EXCESS CA 04/19/2019 ELISHA MCKNIGHT SAWYER Ot E78.5 HYPERLIPIDEMIA, UNSPECIFIED 04/19/2019 ELISHA MCKNIGHT SAWYER Ot F32.9 MAJOR DEPRESSIVE DISORDER, SINGLE EPISOD 04/19/2019 ELISHA MCKNIGHT SAWYER Ot F41.9 ANXIETY DISORDER, UNSPECIFIED 04/19/2019 ELISHA MCKNIGHT SAWYER Ot G47.33 OBSTRUCTIVE SLEEP APNEA (ADULT) (PEDIATR 04/19/2019 ELISHA MCKNIGHT SAWYER Ot G89.4 CHRONIC PAIN SYNDROME 04/19/2019 ELISHA MCKNIGHT SAWYER Ot I10 ESSENTIAL (PRIMARY) HYPERTENSION 04/19/2019 ELISHA MCKNIGHT SAWYER Ot I25.11 9 ATHSCL HEART DISEASE OF [place] COR ART W 04/19/2019 TELLOAMADOR MCKNIGHT SAWYER Ot I25.2 OLD MYOCARDIAL INFARCTION 04/19/2019 ELISHA MCKNIGHT SAWYER Ot I48.0 PAROXYSMAL ATRIAL FIBRILLATION 04/19/2019 ELISHA MCKNIGHT SAWYER Ot K21.9 GASTRO-ESOPHAGEAL REFLUX DISEASE WITHOUT 04/19/2019 ELISHA MCKNIGHT SAWYER Ot K59.09 OTHER CONSTIPATION 04/19/2019 ELISHA MCKNIGHT SAWYER Ot Z68.41 BODY MASS INDEX (BMI) 40.0-44.9, ADULT 04/19/2019 ELISHA MCKNIGHT SAWYER Ot Z79.01 SKILLED NURSING (CURRENT) USE OF ANTICOAGULANT 04/19/2019 ELISHA MCKNIGHT SAWYER Ot Z79.4 CREATIVE SERVICES COORDINATOR (CURRENT) USE OF INSULIN 04/19/2019 ELISHA MCKNIGHT SAWYER Ot Z87.89 1 PERSONAL HISTORY OF NICOTINE DEPENDENCE 04/19/2019 ELISHA MCKNIGHT SAWYER Ot Z95.5 PRESENCE OF CORONARY ANGIOPLASTY IMPLANT 04/19/2019 ELISHA MCKNIGHT SAWYER Ot E11.40 TYPE 2 DIABETES MELLITUS WITH DIABETIC N 04/19/2019 ELISHA MCKNIGHT SAWYER Ot E11.61 0 TYPE 2 DIABETES MELLITUS W DIABETIC NEUR 04/19/2019 ELISHA MCKNIGHT SAWYER Ot E66.01 MORBID (SEVERE) OBESITY DUE TO EXCESS CA 04/19/2019 ELISHA MCKNIGHT SAWYER Ot E78.5 HYPERLIPIDEMIA, UNSPECIFIED 04/19/2019 ELISHA MCKNIGHT SAWYER Ot F32.9 MAJOR DEPRESSIVE DISORDER, SINGLE EPISOD 04/19/2019 ELISHA MCKNIGHT SAWYER Ot F41.9 ANXIETY DISORDER, UNSPECIFIED 04/19/2019 ELISHA MCKNIGHT SAWYER Ot G47.33 OBSTRUCTIVE SLEEP APNEA (ADULT) (PEDIATR 04/19/2019 ELISHA MCKNIGHT SAWYER Ot G89.4 CHRONIC PAIN SYNDROME 04/19/2019 ELISHA MCKNIGHT SAWYER Ot I10 ESSENTIAL (PRIMARY) HYPERTENSION 04/19/2019 ELISHA MCKNIGHT SAWYER Ot I25.11 9 ATHSCL HEART DISEASE OF [place] COR ART W 04/19/2019 ELISHA MCKNIGHT SAWYER Ot I25.2 OLD MYOCARDIAL INFARCTION 04/19/2019 ELISHA MCKNIGHT SAWYER Ot I48.0 PAROXYSMAL ATRIAL FIBRILLATION 04/19/2019 ELISHA MCKNIGHT SAWYER Ot K21.9 GASTRO-ESOPHAGEAL REFLUX DISEASE WITHOUT 04/19/2019 ELISHA MCKNIGHT, SAWYER Ot K59.09 OTHER CONSTIPATION 04/19/2019 ELISHA MCKNIGHT SAWYER Ot Z68.41 BODY MASS INDEX (BMI) 40.0-44.9, ADULT 04/19/2019 ELISHA MCKNIGHT SAWYER Ot Z79.01 CREATIVE SERVICES COORDINATOR (CURRENT) USE OF ANTICOAGULANT 04/19/2019 ELISHA MCKNIGHT SAWYER Ot Z79.4 SKILLED NURSING (CURRENT) USE OF INSULIN 04/19/2019 ELISHA MCKNIGHT SAWYER Ot Z87.89 1 PERSONAL HISTORY OF NICOTINE DEPENDENCE 04/19/2019 ELISHA MCKNIGHT SAWYER Ot Z95.5 PRESENCE OF CORONARY ANGIOPLASTY IMPLANT 04/19/2019 ELISHA MCKNIGHT SAWYER Ot E11.40 TYPE 2 DIABETES MELLITUS WITH DIABETIC N 04/19/2019 ELISHA MCKNIGHT SAWYER Ot E11.61 0 TYPE 2 DIABETES MELLITUS W DIABETIC NEUR 04/19/2019 ELISHA MCKNIGHT SAWYER Ot E66.01 MORBID (SEVERE) OBESITY DUE TO EXCESS CA 04/19/2019 ELISHA MCKNIGHT SAWYER Ot E78.5 HYPERLIPIDEMIA, UNSPECIFIED 04/19/2019 ELISHA MCKNIGHT SAWYER Ot F32.9 MAJOR DEPRESSIVE DISORDER, SINGLE EPISOD 04/19/2019 ELISHA MCKNIGHT SAWYER Ot F41.9 ANXIETY DISORDER, UNSPECIFIED 04/19/2019 ELISHA MCKNIGHT SAWYER Ot G47.33 OBSTRUCTIVE SLEEP APNEA (ADULT) (PEDIATR 04/19/2019 ELISHA MCKNIGHT SAWYER Ot G89.4 CHRONIC PAIN SYNDROME 04/19/2019 ELISHA MCKNIGHT SAWYER Ot I10 ESSENTIAL (PRIMARY) HYPERTENSION 04/19/2019 ELISHA MCKNIGHT SAWYER Ot I25.11 9 ATHSCL HEART DISEASE OF [place] COR ART W 04/19/2019 ELISHA MCKNIGHT SAWYER Ot I25.2 OLD MYOCARDIAL INFARCTION 04/19/2019 ELISHA MCKNIGHT SAWYER Ot I48.0 PAROXYSMAL ATRIAL FIBRILLATION 04/19/2019 ELISHA MCKNIGHT SAWYER Ot K21.9 GASTRO-ESOPHAGEAL REFLUX DISEASE WITHOUT 04/19/2019 TELLOAMADOR MCKNIGHT SAWYER Ot K59.09 OTHER CONSTIPATION 04/19/2019 ELISHA MCKNIGHT SAWYER Ot Z68.41 BODY MASS INDEX (BMI) 40.0-44.9, ADULT 04/19/2019 ELISHA MCKNIGHT SAWYER Ot Z79.01 SKILLED NURSING (CURRENT) USE OF ANTICOAGULANT 04/19/2019 ELISHA MCKNIGHT SAWYER Ot Z79.4 CREATIVE SERVICES COORDINATOR (CURRENT) USE OF INSULIN 04/19/2019 ELISHA MCKNIGHT SAWYER Ot Z87.89 1 PERSONAL HISTORY OF NICOTINE DEPENDENCE 04/19/2019 ELISHA MCKNIGHT SAWYER Ot Z95.5 PRESENCE OF CORONARY ANGIOPLASTY IMPLANT 04/20/2019 ELISHA MCKNIGHT SAWYER Ot E11.40 TYPE 2 DIABETES MELLITUS WITH DIABETIC N 04/20/2019 ELISHA MCKNIGHT SAWYER Ot E11.61 0 TYPE 2 DIABETES MELLITUS W DIABETIC NEUR 04/20/2019 ELISHA MCKNIGHT SAWYER Ot E66.01 MORBID (SEVERE) OBESITY DUE TO EXCESS CA 04/20/2019 ELISHA MCKNIGHT SAWYER Ot E78.5 HYPERLIPIDEMIA, UNSPECIFIED 04/20/2019 ELISHA MCKNIGHT SAWYER Ot F32.9 MAJOR DEPRESSIVE DISORDER, SINGLE EPISOD 04/20/2019 ELISHA MCKNIGHT SAWYER Ot F41.9 ANXIETY DISORDER, UNSPECIFIED 04/20/2019 ELISHA MCKNIGHT SAWYER Ot G47.33 OBSTRUCTIVE SLEEP APNEA (ADULT) (PEDIATR 04/20/2019 ELISHA MCKNIGHT SAWYER Ot I10 ESSENTIAL (PRIMARY) HYPERTENSION 04/20/2019 ELISHA MCKNIGHT SAWYER Ot I25.11 9 ATHSCL HEART DISEASE OF [place] COR ART W 04/20/2019 ELISHA MCKNIGHT SAWYER Ot I25.2 OLD MYOCARDIAL INFARCTION 04/20/2019 ELISHA MCKNIGHT SAWYER Ot I48.0 PAROXYSMAL ATRIAL FIBRILLATION 04/20/2019 ELISHA MCKNIGHT SAWYER Ot J45.90 9 UNSPECIFIED ASTHMA, UNCOMPLICATED 04/20/2019 ELISHA MCKNIGHT SAWYER Ot K21.9 GASTRO-ESOPHAGEAL REFLUX DISEASE WITHOUT 04/20/2019 ELISHA MCKNIGHT SAWYER Ot K59.09 OTHER CONSTIPATION 04/20/2019 ELISHA MCKNIGHT SAWYER Ot M19.91 PRIMARY OSTEOARTHRITIS, UNSPECIFIED SITE 04/20/2019 ELISHA MCKNIGHT SAWYER Ot M54.9 DORSALGIA, UNSPECIFIED 04/20/2019 ELISHA MCKNIGHT SAWYER Ot R53.81 OTHER MALAISE 04/20/2019 ELISHA MCKNIGHT SAWYER Ot R60.9 EDEMA, UNSPECIFIED 04/20/2019 ELISHA MCKNIGHT SAWYER Ot Z68.41 BODY MASS INDEX (BMI) 40.0-44.9, ADULT 04/20/2019 ELISHA MCKNIGHT SAWYER Ot Z79.01 CREATIVE SERVICES COORDINATOR (CURRENT) USE OF ANTICOAGULANT 04/20/2019 NICOLE TELLO DOI Ot Z79.4 CREATIVE SERVICES COORDINATOR (CURRENT) USE OF INSULIN 04/20/2019 ELISHA MCKNIGHT SAWYER Ot Z85.42 PERSONAL HISTORY OF MALIGNANT NEOPLASM O 04/20/2019 ELISHA MCKNGIHT SAWYER Ot Z86.71 8 PERSONAL HISTORY OF OTHER VENOUS THROMBO 04/20/2019 NICOLE TELLO DOI Ot Z87.89 1 PERSONAL HISTORY OF NICOTINE DEPENDENCE 04/20/2019 ELISHA MCKNIGHT SAWYER Ot Z95.5 PRESENCE OF CORONARY ANGIOPLASTY IMPLANT 04/24/2019 NICOLE TELLO DOI Ot E11.40 TYPE 2 DIABETES MELLITUS WITH DIABETIC N 04/24/2019 NICOLE TELLO DOI Ot E11.61 0 TYPE 2 DIABETES MELLITUS W DIABETIC NEUR 04/24/2019 ELISHA MCKNIGHT SAWYER Ot E66.01 MORBID (SEVERE) OBESITY DUE TO EXCESS CA 04/24/2019 ELISHA MCKNIGHT SAWYER Ot E78.00 PURE HYPERCHOLESTEROLEMIA, UNSPECIFIED 04/24/2019 ELISHA MCKNIGHT SAWYER Ot E78.5 HYPERLIPIDEMIA, UNSPECIFIED 04/24/2019 ELISHA MCKNIGHT SAWYER Ot F32.9 MAJOR DEPRESSIVE DISORDER, SINGLE EPISOD 04/24/2019 ELISHA MCKNIGHT SAWYER Ot F41.9 ANXIETY DISORDER, UNSPECIFIED 04/24/2019 ELISHA MCKNIGHT SAWYER Ot G47.33 OBSTRUCTIVE SLEEP APNEA (ADULT) (PEDIATR 04/24/2019 ELISHA MCKNIGHT SAWYER Ot I10 ESSENTIAL (PRIMARY) HYPERTENSION 04/24/2019 ELISHA MCKNIGHT SAWYER Ot I25.11 9 ATHSCL HEART DISEASE OF [place] COR ART W 04/24/2019 ELISHA MCKNIGHT SAWYER Ot I25.2 OLD MYOCARDIAL INFARCTION 04/24/2019 ELISHA MCKNIGHT SAWYER Ot I48.0 PAROXYSMAL ATRIAL FIBRILLATION 04/24/2019 ELISHA MCKNIGHT SAWYER Ot J45.90 9 UNSPECIFIED ASTHMA, UNCOMPLICATED 04/24/2019 ELISHA MCKNIGHT SAWYER Ot K21.9 GASTRO-ESOPHAGEAL REFLUX DISEASE WITHOUT 04/24/2019 ELISHA MCKNIGHT SAWYER Ot K59.09 OTHER CONSTIPATION 04/24/2019 ELISHA MCKNIGHT SAWYER Ot M19.91 PRIMARY OSTEOARTHRITIS, UNSPECIFIED SITE 04/24/2019 ELISHA MCKNIGHT SAWYER Ot M54.9 DORSALGIA, UNSPECIFIED 04/24/2019 ELISHA MCKNIGHT SAWYER Ot R53.81 OTHER MALAISE 04/24/2019 ELISHA MCKNIGHT SAWYER Ot R60.9 EDEMA, UNSPECIFIED 04/24/2019 NICOLE TELLO DOI Ot Z68.41 BODY MASS INDEX (BMI) 40.0-44.9, ADULT 04/24/2019 TELLOSAWYER ENGLISH DO Ot Z79.01 SKILLED NURSING (CURRENT) USE OF ANTICOAGULANT 04/24/2019 TELLOSAWYER ENGLISH DO Ot Z79.4 CREATIVE SERVICES COORDINATOR (CURRENT) USE OF INSULIN 04/24/2019 TELLOAMADOR MCKNIGHT SAWYER Ot Z85.42 PERSONAL HISTORY OF MALIGNANT NEOPLASM O 04/24/2019 TELLOSAWYER ENGLISH DO Ot Z86.71 8 PERSONAL HISTORY OF OTHER VENOUS THROMBO 04/24/2019 TELLOAMADOR MCKNIGHT SAWYER Ot Z87.89 1 PERSONAL HISTORY OF NICOTINE DEPENDENCE 04/24/2019 ELISHA MCKNIGHT SAWYER Ot Z95.5 PRESENCE OF CORONARY ANGIOPLASTY IMPLANT 05/17/2019 SIVAKUMAR CONTRERAS MD Ot E11. 40 TYPE 2 DIABETES MELLITUS WITH DIABETIC N 05/17/2019 SIVAKUMAR CONTRERAS MD Ot E66. 01 MORBID (SEVERE) OBESITY DUE TO EXCESS CA 05/17/2019 SIVAKUMAR CONTRERAS MD Ot E78. 00 PURE HYPERCHOLESTEROLEMIA, UNSPECIFIED 05/17/2019 SIVAKUMAR CONTRERAS MD Ot F32. 9 MAJOR DEPRESSIVE DISORDER, SINGLE EPISOD 05/17/2019 SIVAKUMAR CONTRERAS MD Ot F41. 9 ANXIETY DISORDER, UNSPECIFIED 05/17/2019 SIVAKUMAR CONTRERAS MD Ot G47. 30 SLEEP APNEA, UNSPECIFIED 05/17/2019 SIVAKUMAR CONTRERAS MD Ot I10 ESSENTIAL (PRIMARY) HYPERTENSION 05/17/2019 SIVAKUMAR CONTRERAS MD Ot I25. 1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 05/17/2019 SIVAKUMAR CONTRERAS MD Ot I25. 2 OLD MYOCARDIAL INFARCTION 05/17/2019 SIVAKUMAR CONTRERAS MD Ot I48. 91 UNSPECIFIED ATRIAL FIBRILLATION 05/17/2019 SIVAKUMAR CONTRERAS MD Ot K21. 9 GASTRO-ESOPHAGEAL REFLUX DISEASE WITHOUT 05/17/2019 SIVAKUMAR CONTRERAS MD Ot N39. 0 URINARY TRACT INFECTION, SITE NOT SPECIF 05/17/2019 SIVAKUMAR CONTRERAS MD, Ot R00. 2 PALPITATIONS 05/17/2019 SIVAKUMAR CONTRERAS MD, Ot Z79. 01 SKILLED NURSING (CURRENT) USE OF ANTICOAGULANT 05/17/2019 SIVAKUMAR CONTRERAS MD, Ot Z79. 4 CREATIVE SERVICES COORDINATOR (CURRENT) USE OF INSULIN 05/17/2019 SIVAKUMAR CONTRERAS MD, Ot Z79. 51 CREATIVE SERVICES COORDINATOR (CURRENT) USE OF INHALED STERO 05/17/2019 SIVAKUMAR CONTRERAS MD, Ot Z79. 82 SKILLED NURSING (CURRENT) USE OF ASPIRIN 05/17/2019 SIVAKUMAR CONTRERAS MD, Ot Z80. 0 FAMILY HISTORY OF MALIGNANT NEOPLASM OF 05/17/2019 SIVAKUMAR CONTRERAS MD, Ot Z82. 49 FAMILY HX OF ISCHEM HEART DIS AND OTH DI 05/17/2019 SIVAKUMAR CONTRERAS MD, Ot Z85. 42 PERSONAL HISTORY OF MALIGNANT NEOPLASM O 05/17/2019 SIVAKUMAR CONTRERAS MD, Ot Z86.718 PERSONAL HISTORY OF OTHER VENOUS THROMBO 05/17/2019 SIVAKUMAR CONTRERAS MD, Ot Z87.440 PERSONAL HISTORY OF URINARY (TRACT) INFE 05/17/2019 SIVAKUMAR CONTRERAS MD, Ot Z87.891 PERSONAL HISTORY OF NICOTINE DEPENDENCE 05/17/2019 SIVAKUMAR CONTRERAS MD, Ot Z88. 8 ALLERGY STATUS TO [facility] DRUG/MEDS/BIOL SUB 05/17/2019 SIVAKUMAR CONTRERAS MD, Ot Z95. 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 0 NONRHEUMATIC MITRAL (VALVE) INSUFFICIENC 05/17/2019 CHARLY JOSE MD, Ot I47. 1 SUPRAVENTRICULAR TACHYCARDIA 05/17/2019 CHARLY JOSE MD, Ot I48. 0 PAROXYSMAL ATRIAL FIBRILLATION 05/17/2019 CHARLY JOSE MD, Ot I82.492 ACUTE EMBOLISM AND THROMBOSIS OF DEEP VE 05/17/2019 CHARLY JOSE MD Ot R00. 2 PALPITATIONS 05/17/2019 DELIA TRIANA MD Ot R06.09 OTHER FORMS OF DYSPNEA 05/17/2019 TALYA VALVERDE Ot E78.2 MIXED HYPERLIPIDEMIA 05/17/2019 ANA DOWNS, TALYA De Leon Ot I10 ESSENTIAL (PRIMARY) HYPERTENSION 05/17/2019 NATE GEE MD Ot M24.112 OTHER ARTICULAR CARTILAGE DISORDERS, LEF 05/17/2019 NATE GEE MD Ot M25.812 OTHER SPECIFIED JOINT DISORDERS, LEFT SH 05/17/2019 NATE GEE MD Ot S46.012A STRAIN OF MUSC/TEND THE ROTATOR CUFF OF 05/17/2019 NATE GEE MD Ot S49.92XA UNSP INJURY OF LEFT SHOULDER AND UPPER A 05/17/2019 FRANKLIN SAMPSON APRN Ot R06.02 SHORTNESS OF BREATH 05/17/2019 FRANKLIN SAMPSON EDGE BURNISHER Ot Z86.718 PERSONAL HISTORY OF OTHER VENOUS THROMBO 05/17/2019 FRANKLIN SAMPSON EDGE BURNISHER Ot Z87.891 PERSONAL HISTORY OF NICOTINE DEPENDENCE 05/17/2019 FRANKLIN SAMPSON APRN Ot R06.02 SHORTNESS OF BREATH 05/17/2019 FRANKLIN SAMPSON EDGE BURNISHER Ot Z86.718 PERSONAL HISTORY OF OTHER VENOUS THROMBO 05/17/2019 FRANKLIN SAMPSON APRN Ot Z87.891 PERSONAL HISTORY OF NICOTINE DEPENDENCE 05/17/2019 JOSE DE JESUS GRAJEDA, GAVINO Carbajal Ot Z12.31 ENCNTR SCREEN MAMMOGRAM FOR MALIGNANT NE 05/17/2019 CHARLY JOSE MD Ot E11. 9 TYPE 2 DIABETES MELLITUS WITHOUT COMPLIC 05/17/2019 CHARLY JOSE MD Ot E78. 5 HYPERLIPIDEMIA, UNSPECIFIED 05/17/2019 CHARLY JOSE MD Ot F32. 9 MAJOR DEPRESSIVE DISORDER, SINGLE EPISOD 05/17/2019 CHARLY JOSE MD Ot G47. 10 HYPERSOMNIA, UNSPECIFIED 05/17/2019 CHARLY JOSE MD Ot G47. 33 OBSTRUCTIVE SLEEP APNEA (ADULT) (PEDIATR 05/17/2019 CHARLY JOSE MD Ot I10 ESSENTIAL (PRIMARY) HYPERTENSION 05/17/2019 CHARLY JOSE MD Ot I47. 1 SUPRAVENTRICULAR TACHYCARDIA 05/17/2019 CHARLY JOSE MD Ot I48. 0 PAROXYSMAL ATRIAL FIBRILLATION 05/17/2019 CHARLY JOES MD Ot I73. 9 PERIPHERAL VASCULAR DISEASE, UNSPECIFIED 05/17/2019 CHARLY JOSE MD, Ot J30. 2 OTHER SEASONAL ALLERGIC RHINITIS 05/17/2019 CHARLY JOSE MD, Ot M54. 9 DORSALGIA, UNSPECIFIED 05/17/2019 CHARLY JOSE MD, Ot R00. 2 PALPITATIONS 05/17/2019 CHARLY JOSE MD, Ot Z79. 4 CREATIVE SERVICES COORDINATOR (CURRENT) USE OF INSULIN 05/17/2019 CHARLY JOSE MD, Ot Z79.899 OTHER SKILLED NURSING (CURRENT) DRUG THERAPY 05/17/2019 CHARLY JOSE MD, Ot Z86.718 PERSONAL HISTORY OF OTHER VENOUS THROMBO 05/17/2019 CHARLY JOSE MD, Ot Z87.891 PERSONAL HISTORY OF NICOTINE DEPENDENCE 05/17/2019 CHARLY JOSE MD, Ot Z48.812 ENCNTR FOR SURGICAL AFTCR FOLLOWING SURG 05/17/2019 CHARLY JOSE MD, Ot Z95. 5 PRESENCE OF CORONARY ANGIOPLASTY IMPLANT 05/18/2019 CHARLY JOSE MD Ot I10 ESSENTIAL (PRIMARY) HYPERTENSION 05/18/2019 CHARLY JOSE MD Ot I34. 0 NONRHEUMATIC MITRAL (VALVE) INSUFFICIENC 05/18/2019 CHARLY JOSE MD, Ot I47. 1 SUPRAVENTRICULAR TACHYCARDIA 05/18/2019 CHARLY JOSE MD, Ot I48. 0 PAROXYSMAL ATRIAL FIBRILLATION 05/18/2019 CHARLY JOSE MD, Ot I82.492 ACUTE EMBOLISM AND THROMBOSIS OF DEEP VE 05/18/2019 CHARLY JOSE MD Ot R00. 2 PALPITATIONS 05/18/2019 DELIA TRIANA MD Ot R06.09 OTHER FORMS OF DYSPNEA 05/18/2019 TALYA VALVERDE Ot E78.2 MIXED HYPERLIPIDEMIA 05/18/2019 TALYA VALVERDE Ot I10 ESSENTIAL (PRIMARY) HYPERTENSION 05/18/2019 NATE GEE MD, Ot M24.112 OTHER ARTICULAR CARTILAGE DISORDERS, LEF 05/18/2019 NATE GEE MD, Ot M25.812 OTHER SPECIFIED JOINT DISORDERS, LEFT SH 05/18/2019 NATE GEE MD, Ot S46.012A STRAIN OF MUSC/TEND THE ROTATOR CUFF OF 05/18/2019 NATE GEE MD, Ot S49.92XA UNSP INJURY OF LEFT SHOULDER AND UPPER A 05/18/2019 FRANKLIN SAMPSON APRN Ot R06.02 SHORTNESS OF BREATH 05/18/2019 FRANKLIN SAMPSON EDGE BURNISHER Ot Z86.718 PERSONAL HISTORY OF OTHER VENOUS THROMBO 05/18/2019 FRANKLIN SAMPSON EDGE BURNISHER Ot Z87.891 PERSONAL HISTORY OF NICOTINE DEPENDENCE 05/18/2019 FRANKLIN SAMPSON APRN Ot R06.02 SHORTNESS OF BREATH 05/18/2019 FRANKLIN SAMPSON EDGE BURNISHER Ot Z86.718 PERSONAL HISTORY OF OTHER VENOUS THROMBO 05/18/2019 FRANKLIN SAMPSON APRN Ot Z87.891 PERSONAL HISTORY OF NICOTINE DEPENDENCE 05/18/2019 JOSE DE JESUS GRAJEDA, GAVINO Carbajal Ot Z12.31 ENCNTR SCREEN MAMMOGRAM FOR MALIGNANT NE 05/18/2019 CHARLY JOSE MD Ot E11. 9 TYPE 2 DIABETES MELLITUS WITHOUT COMPLIC 05/18/2019 CHARLY JOSE MD Ot E78. 5 HYPERLIPIDEMIA, UNSPECIFIED 05/18/2019 CHARLY JOSE MD Ot F32. 9 MAJOR DEPRESSIVE DISORDER, SINGLE EPISOD 05/18/2019 CHARLY JOSE MD Ot G47. 10 HYPERSOMNIA, UNSPECIFIED 05/18/2019 CHARLY JOSE MD Ot G47. 33 OBSTRUCTIVE SLEEP APNEA (ADULT) (PEDIATR 05/18/2019 CHARLY JOSE MD Ot I10 ESSENTIAL (PRIMARY) HYPERTENSION 05/18/2019 HCARLY JOSE MD Ot I47. 1 SUPRAVENTRICULAR TACHYCARDIA 05/18/2019 CHARLY JOSE MD Ot I48. 0 PAROXYSMAL ATRIAL FIBRILLATION 05/18/2019 CHARLY JOSE MD Ot I73. 9 PERIPHERAL VASCULAR DISEASE, UNSPECIFIED 05/18/2019 CHARLY JOSE MD Ot J30. 2 OTHER SEASONAL ALLERGIC RHINITIS 05/18/2019 CHARLY JOSE MD Ot M54. 9 DORSALGIA, UNSPECIFIED 05/18/2019 CHARLY JOSE MD Ot R00. 2 PALPITATIONS 05/18/2019 CHARLY JOSE MD Ot Z79. 4 SKILLED NURSING (CURRENT) USE OF INSULIN 05/18/2019 CHARLY JOSE MD Ot Z79.899 OTHER SKILLED NURSING (CURRENT) DRUG THERAPY 05/18/2019 CHARLY JOSE MD Ot Z86.718 PERSONAL HISTORY OF OTHER VENOUS THROMBO 05/18/2019 CHARLY JOSE MD, Ot Z87.891 PERSONAL HISTORY OF NICOTINE DEPENDENCE 05/18/2019 CHARLY JOSE MD, Ot Z48.812 ENCNTR FOR SURGICAL AFTCR FOLLOWING SURG 05/18/2019 CHARLY JOSE MD, Ot Z95. 5 PRESENCE OF CORONARY ANGIOPLASTY IMPLANT 05/18/2019 CHARLY JOSE MD, Ot I10 ESSENTIAL (PRIMARY) HYPERTENSION 05/18/2019 CHARLY JOSE MD Ot I34. 0 NONRHEUMATIC MITRAL (VALVE) INSUFFICIENC 05/18/2019 CHARLY JOSE MD, Ot I47. 1 SUPRAVENTRICULAR TACHYCARDIA 05/18/2019 CHARLY JOSE MD, Ot I48. 0 PAROXYSMAL ATRIAL FIBRILLATION 05/18/2019 CHARLY JOSE MD, Ot I82.492 ACUTE EMBOLISM AND THROMBOSIS OF [place]EEP [place] 05/18/2019 CHARLY JOSE MD Ot R00. 2 PALPITATIONS 05/18/2019 KAMILAH GRAJEDA, DELIA Boo Ot R06.09 OTHER FORMS OF DYSPNEA 05/18/2019 TALYA VALVERDE Ot E78.2 MIXED HYPERLIPIDEMIA 05/18/2019 TALYA VALVERDE Ot I10 ESSENTIAL (PRIMARY) HYPERTENSION 05/18/2019 NATE GEE MD, Ot M24.112 OTHER ARTICULAR CARTILAGE DISORDERS, LEF 05/18/2019 NATE GEE MD, Ot M25.812 OTHER SPECIFIED JOINT DISORDERS, LEFT SH 05/18/2019 NATE GEE MD, Ot S46.012A STRAIN OF MUSC/TEND THE ROTATOR CUFF OF 05/18/2019 NATE GEE MD, Ot S49.92XA UNSP INJURY OF LEFT SHOULDER AND UPPER A 05/18/2019 FRANKLIN SAMPSON APRN Ot R06.02 SHORTNESS OF BREATH 05/18/2019 FRANKLIN SAMPSON APRN Ot Z86.718 PERSONAL HISTORY OF OTHER VENOUS THROMBO 05/18/2019 FRANKLIN SAMPSON APRN Ot Z87.891 PERSONAL HISTORY OF NICOTINE DEPENDENCE 05/18/2019 FRANKLIN SAMPSON APRN Ot R06.02 SHORTNESS OF BREATH 05/18/2019 FRANKLIN SAMPSON APRN Ot Z86.718 PERSONAL HISTORY OF OTHER VENOUS THROMBO 05/18/2019 FRANKLIN SAMPSON APRN Ot Z87.891 PERSONAL HISTORY OF NICOTINE DEPENDENCE 05/18/2019 JOSE DE JESUS GRAJEDA, GAVINO Carbajal Ot Z12.31 ENCNTR SCREEN MAMMOGRAM FOR MALIGNANT NE 05/18/2019 CHARLY JOSE MD Ot E11. 9 TYPE 2 DIABETES MELLITUS WITHOUT COMPLIC 05/18/2019 CHARLY JOSE MD Ot E78. 5 HYPERLIPIDEMIA, UNSPECIFIED 05/18/2019 CHARLY JOSE MD Ot F32. 9 MAJOR DEPRESSIVE DISORDER, SINGLE EPISOD 05/18/2019 CHARLY JOSE MD Ot G47. 10 HYPERSOMNIA, UNSPECIFIED 05/18/2019 CHARLY JOSE MD Ot G47. 33 OBSTRUCTIVE SLEEP APNEA (ADULT) (PEDIATR 05/18/2019 CHARLY JOSE MD Ot I10 ESSENTIAL (PRIMARY) HYPERTENSION 05/18/2019 CHARLY JOSE MD Ot I47. 1 SUPRAVENTRICULAR TACHYCARDIA 05/18/2019 CHARLY JOSE MD Ot I48. 0 PAROXYSMAL ATRIAL FIBRILLATION 05/18/2019 CHARLY JOSE MD Ot I73. 9 PERIPHERAL VASCULAR DISEASE, UNSPECIFIED 05/18/2019 CHARLY JOSE MD Ot J30. 2 OTHER SEASONAL ALLERGIC RHINITIS 05/18/2019 CHARLY JOSE MD Ot M54. 9 DORSALGIA, UNSPECIFIED 05/18/2019 CHARLY JOSE MD Ot R00. 2 PALPITATIONS 05/18/2019 CHARLY JOSE MD Ot Z79. 4 SKILLED NURSING (CURRENT) USE OF INSULIN 05/18/2019 CHARLY JOSE MD Ot Z79.899 OTHER SKILLED NURSING (CURRENT) DRUG THERAPY 05/18/2019 CHARLY JOSE MD Ot Z86.718 PERSONAL HISTORY OF OTHER VENOUS THROMBO 05/18/2019 CHARLY JOSE MD Ot Z87.891 PERSONAL HISTORY OF NICOTINE DEPENDENCE 05/18/2019 CHARLY JOSE MD Ot Z48.812 ENCNTR FOR SURGICAL AFTCR FOLLOWING SURG 05/18/2019 CHARLY JOSE MD Ot Z95. 5 PRESENCE OF CORONARY ANGIOPLASTY IMPLANT 05/18/2019 CHARLY JOSE MD Ot I10 ESSENTIAL (PRIMARY) HYPERTENSION 05/18/2019 CHARLY JOSE MD Ot I34. 0 NONRHEUMATIC MITRAL (VALVE) INSUFFICIENC 05/18/2019 CHARLY JOSE MD Ot I47. 1 SUPRAVENTRICULAR TACHYCARDIA 05/18/2019 CHARLY JOSE MD Ot I48. 0 PAROXYSMAL ATRIAL FIBRILLATION 05/18/2019 CHARLY JOSE MD Ot I82.492 ACUTE EMBOLISM AND THROMBOSIS OF DEEP VE 05/18/2019 CHARLY JOSE MD Ot R00. 2 PALPITATIONS 05/18/2019 DELIA TRIANA MD Ot R06.09 OTHER FORMS OF DYSPNEA 05/18/2019 TALYA VALVERDE Ot E78.2 MIXED HYPERLIPIDEMIA 05/18/2019 TALYA VALVERDE Ot I10 ESSENTIAL (PRIMARY) HYPERTENSION 05/18/2019 NATE GEE MD Ot M24.112 OTHER ARTICULAR CARTILAGE DISORDERS, LEF 05/18/2019 NATE GEE MD, Ot M25.812 OTHER SPECIFIED JOINT DISORDERS, LEFT SH 05/18/2019 NATE GEE MD Ot S46.012A STRAIN OF MUSC/TEND THE ROTATOR CUFF OF 05/18/2019 NATE GEE MD Ot S49.92XA UNSP INJURY OF LEFT SHOULDER AND UPPER A 05/18/2019 FRANKLIN SAMPSON APRN Ot R06.02 SHORTNESS OF BREATH 05/18/2019 FRANKLIN SAMPSON APRN Ot Z86.718 PERSONAL HISTORY OF OTHER VENOUS THROMBO 05/18/2019 FRANKLIN SAMPSON APRN Ot Z87.891 PERSONAL HISTORY OF NICOTINE DEPENDENCE 05/18/2019 FRANKLIN SAMPSON APRN Ot R06.02 SHORTNESS OF BREATH 05/18/2019 FRANKLIN SAMPSON APRN Ot Z86.718 PERSONAL HISTORY OF OTHER VENOUS THROMBO 05/18/2019 FRANKLIN SAMPSON APRN Ot Z87.891 PERSONAL HISTORY OF NICOTINE DEPENDENCE 05/18/2019 JOSE DE JESUS GRAJEDA, GAVINO Carbajal Ot Z12.31 ENCNTR SCREEN MAMMOGRAM FOR MALIGNANT NE 05/18/2019 CHARLY JOSE MD Ot E11. 9 TYPE 2 DIABETES MELLITUS WITHOUT COMPLIC 05/18/2019 CHARLY JOSE MD Ot E78. 5 HYPERLIPIDEMIA, UNSPECIFIED 05/18/2019 CHARLY JOSE MD Ot F32. 9 MAJOR DEPRESSIVE DISORDER, SINGLE EPISOD 05/18/2019 CHARLY JOSE MD Ot G47. 10 HYPERSOMNIA, UNSPECIFIED 05/18/2019 CHARLY JOSE MD Ot G47. 33 OBSTRUCTIVE SLEEP APNEA (ADULT) (PEDIATR 05/18/2019 CHARLY JOSE MD Ot I10 ESSENTIAL (PRIMARY) HYPERTENSION 05/18/2019 CHARLY JOSE MD Ot I47. 1 SUPRAVENTRICULAR TACHYCARDIA 05/18/2019 CHARLY JOSE MD Ot I48. 0 PAROXYSMAL ATRIAL FIBRILLATION 05/18/2019 CHARLY JOSE MD Ot I73. 9 PERIPHERAL VASCULAR DISEASE, UNSPECIFIED 05/18/2019 CHARLY JOSE MD Ot J30. 2 OTHER SEASONAL ALLERGIC RHINITIS 05/18/2019 CHARLY JOSE MD Ot M54. 9 DORSALGIA, UNSPECIFIED 05/18/2019 CHARLY JOSE MD Ot R00. 2 PALPITATIONS 05/18/2019 CHARLY JOSE MD Ot Z79. 4 SKILLED NURSING (CURRENT) USE OF INSULIN 05/18/2019 CHARLY OJSE MD Ot Z79.899 OTHER SKILLED NURSING (CURRENT) DRUG THERAPY 05/18/2019 CHARLY JOSE MD, Ot Z86.718 PERSONAL HISTORY OF OTHER VENOUS THROMBO 05/18/2019 CHARLY JOSE MD, Ot Z87.891 PERSONAL HISTORY OF NICOTINE DEPENDENCE 05/18/2019 CHARLY JOSE MD, Ot Z48.812 ENCNTR FOR SURGICAL AFTCR FOLLOWING SURG 05/18/2019 CHARLY JOSE MD Ot Z95. 5 PRESENCE OF CORONARY ANGIOPLASTY IMPLANT 05/18/2019 CHARLY JOSE MD Ot I10 ESSENTIAL (PRIMARY) HYPERTENSION 05/18/2019 CHARLY JOSE MD Ot I34. 0 NONRHEUMATIC MITRAL (VALVE) INSUFFICIENC 05/18/2019 CHARLY JOSE MD Ot I47. 1 SUPRAVENTRICULAR TACHYCARDIA 05/18/2019 CHARLY JOSE MD Ot I48. 0 PAROXYSMAL ATRIAL FIBRILLATION 05/18/2019 CHARLY JOSE MD Ot I82.492 ACUTE EMBOLISM AND THROMBOSIS OF [place]EEP [place] 05/18/2019 CHARLY JOSE MD Ot R00. 2 PALPITATIONS 05/18/2019 KAMILAH GRAJEDA, DELIA Boo Ot R06.09 OTHER FORMS OF DYSPNEA 05/18/2019 TALYA VALVERDE Ot E78.2 MIXED HYPERLIPIDEMIA 05/18/2019 TALYA VALVERDE Ot I10 ESSENTIAL (PRIMARY) HYPERTENSION 05/18/2019 NATE GEE MD Ot M24.112 OTHER ARTICULAR CARTILAGE DISORDERS, LEF 05/18/2019 NATE GEE MD, Ot M25.812 OTHER SPECIFIED JOINT DISORDERS, LEFT SH 05/18/2019 NATE GEE MD Ot S46.012A STRAIN OF MUSC/TEND THE ROTATOR CUFF OF 05/18/2019 NATE GEE MD Ot S49.92XA UNSP INJURY OF LEFT SHOULDER AND UPPER A 05/18/2019 FRANKLIN SAMPSON APRN Ot R06.02 SHORTNESS OF BREATH 05/18/2019 FRANKLIN SAMPSON EDGE BURNISHER Ot Z86.718 PERSONAL HISTORY OF OTHER VENOUS THROMBO 05/18/2019 FRANKLIN SAMPSON APRN Ot Z87.891 PERSONAL HISTORY OF NICOTINE DEPENDENCE 05/18/2019 FRANKLIN SAMPSON APRN Ot R06.02 SHORTNESS OF BREATH 05/18/2019 FRANKLIN SAMPSON EDGE BURNISHER Ot Z86.718 PERSONAL HISTORY OF OTHER VENOUS THROMBO 05/18/2019 FRANKLIN SAMPSON APRN Ot Z87.891 PERSONAL HISTORY OF NICOTINE DEPENDENCE 05/18/2019 JOSE DE JESUS GRAJEDA, GAVINO Carbajal Ot Z12.31 ENCNTR SCREEN MAMMOGRAM FOR MALIGNANT NE 05/18/2019 CHARLY JOSE MD Ot E11. 9 TYPE 2 DIABETES MELLITUS WITHOUT COMPLIC 05/18/2019 CHARLY JOSE MD Ot E78. 5 HYPERLIPIDEMIA, UNSPECIFIED 05/18/2019 CHARLY JOSE MD Ot F32. 9 MAJOR DEPRESSIVE DISORDER, SINGLE EPISOD 05/18/2019 CHARLY JOSE MD Ot G47. 10 HYPERSOMNIA, UNSPECIFIED 05/18/2019 CHARLY JOSE MD Ot G47. 33 OBSTRUCTIVE SLEEP APNEA (ADULT) (PEDIATR 05/18/2019 CHARLY JOSE MD Ot I10 ESSENTIAL (PRIMARY) HYPERTENSION 05/18/2019 CHARLY JOSE MD Ot I47. 1 SUPRAVENTRICULAR TACHYCARDIA 05/18/2019 CHARLY JOSE MD Ot I48. 0 PAROXYSMAL ATRIAL FIBRILLATION 05/18/2019 CHARLY JOSE MD Ot I73. 9 PERIPHERAL VASCULAR DISEASE, UNSPECIFIED 05/18/2019 CHARLY JOSE MD, Ot J30. 2 OTHER SEASONAL ALLERGIC RHINITIS 05/18/2019 CHARLY JOSE MD, Ot M54. 9 DORSALGIA, UNSPECIFIED 05/18/2019 CHARLY JOSE MD Ot R00. 2 PALPITATIONS 05/18/2019 CHARLY JOSE MD, Ot Z79. 4 SKILLED NURSING (CURRENT) USE OF INSULIN 05/18/2019 CHARLY JOSE MD, Ot Z79.899 OTHER SKILLED NURSING (CURRENT) DRUG THERAPY 05/18/2019 CHARLY JOSE MD, Ot Z86.718 PERSONAL HISTORY OF OTHER VENOUS THROMBO 05/18/2019 CHARLY JOSE MD, Ot Z87.891 PERSONAL HISTORY OF NICOTINE DEPENDENCE 05/18/2019 CHARLY JOSE MD, Ot Z48.812 ENCNTR FOR SURGICAL AFTCR FOLLOWING SURG 05/18/2019 CHARLY JOSE MD, Ot Z95. 5 PRESENCE OF CORONARY ANGIOPLASTY IMPLANT 05/21/2019 CHARLY JOSE MD Ot I10 ESSENTIAL (PRIMARY) HYPERTENSION 05/21/2019 CHARLY JOSE MD Ot I34. 0 NONRHEUMATIC MITRAL (VALVE) INSUFFICIENC 05/21/2019 CHARLY JOSE MD Ot I47. 1 SUPRAVENTRICULAR TACHYCARDIA 05/21/2019 CHARLY JOSE MD, Ot I48. 0 PAROXYSMAL ATRIAL FIBRILLATION 05/21/2019 CHARLY JOSE MD Ot I82.492 ACUTE EMBOLISM AND THROMBOSIS OF [place]EEP VE 05/21/2019 CHARLY JOSE MD Ot R00. 2 PALPITATIONS 05/21/2019 DELIA TRIANA MD Ot R06.09 OTHER FORMS OF DYSPNEA 05/21/2019 TALYA VALVERDE Ot E78.2 MIXED HYPERLIPIDEMIA 05/21/2019 TALYA VALVERDE Ot I10 ESSENTIAL (PRIMARY) HYPERTENSION 05/21/2019 NATE GEE MD Ot M24.112 OTHER ARTICULAR CARTILAGE DISORDERS, LEF 05/21/2019 NATE GEE MD, Ot M25.812 OTHER SPECIFIED JOINT DISORDERS, LEFT SH 05/21/2019 NATE GEE MD, Ot S46.012A STRAIN OF MUSC/TEND THE ROTATOR CUFF OF 05/21/2019 NATE GEE MD, Ot S49.92XA UNSP INJURY OF LEFT SHOULDER AND UPPER A 05/21/2019 FRANKLIN SAMPSON APRN Ot R06.02 SHORTNESS OF BREATH 05/21/2019 FRANKLIN SAMPSON APRN Ot Z86.718 PERSONAL HISTORY OF OTHER VENOUS THROMBO 05/21/2019 FRANKLIN SAMPSON APRN Ot Z87.891 PERSONAL HISTORY OF NICOTINE DEPENDENCE 05/21/2019 FRANKLIN SAMPSON APRN Ot R06.02 SHORTNESS OF BREATH 05/21/2019 FRANKLIN SAMPSON APRN Ot Z86.718 PERSONAL HISTORY OF OTHER VENOUS THROMBO 05/21/2019 FRANKLIN SAMPSON APRN Ot Z87.891 PERSONAL HISTORY OF NICOTINE DEPENDENCE 05/21/2019 JOSE DE JESUS GRAJEDA, GAVINO Carbajal Ot Z12.31 ENCNTR SCREEN MAMMOGRAM FOR MALIGNANT NE 05/21/2019 CHARLY JOSE MD Ot E11. 9 TYPE 2 DIABETES MELLITUS WITHOUT COMPLIC 05/21/2019 CHARLY JOSE MD Ot E78. 5 HYPERLIPIDEMIA, UNSPECIFIED 05/21/2019 CHARLY JOSE MD Ot F32. 9 MAJOR DEPRESSIVE DISORDER, SINGLE EPISOD 05/21/2019 CHARLY JOSE MD Ot G47. 10 HYPERSOMNIA, UNSPECIFIED 05/21/2019 CHARLY JOSE MD Ot G47. 33 OBSTRUCTIVE SLEEP APNEA (ADULT) (PEDIATR 05/21/2019 CHARLY JOSE MD Ot I10 ESSENTIAL (PRIMARY) HYPERTENSION 05/21/2019 CHARLY JOSE MD Ot I47. 1 SUPRAVENTRICULAR TACHYCARDIA 05/21/2019 CHARLY JOSE MD Ot I48. 0 PAROXYSMAL ATRIAL FIBRILLATION 05/21/2019 CHARLY JOSE MD Ot I73. 9 PERIPHERAL VASCULAR DISEASE, UNSPECIFIED 05/21/2019 CHARLY JOSE MD Ot J30. 2 OTHER SEASONAL ALLERGIC RHINITIS 05/21/2019 CHARLY JOSE MD Ot M54. 9 DORSALGIA, UNSPECIFIED 05/21/2019 CHARLY JOSE MD Ot R00. 2 PALPITATIONS 05/21/2019 CHARLY JOSE MD Ot Z79. 4 SKILLED NURSING (CURRENT) USE OF INSULIN 05/21/2019 CHARLY JOSE MD Ot Z79.899 OTHER CREATIVE SERVICES COORDINATOR (CURRENT) DRUG THERAPY 05/21/2019 CHARLY JOSE MD, Ot Z86.718 PERSONAL HISTORY OF OTHER VENOUS THROMBO 05/21/2019 CHARLY JOSE MD, Ot Z87.891 PERSONAL HISTORY OF NICOTINE DEPENDENCE 05/21/2019 CHARLY JOSE MD, Ot Z48.812 ENCNTR FOR SURGICAL AFTCR FOLLOWING SURG 05/21/2019 CHARLY JOSE MD Ot Z95. 5 PRESENCE OF CORONARY ANGIOPLASTY IMPLANT 05/21/2019 JAVIER WATSON MD Ot B96 .5 PSEUDOMONAS (MALLEI) CAUSING DISEASES CL 05/21/2019 JAVIER WATSON MD Ot E11.40 TYPE 2 DIABETES MELLITUS WITH DIABETIC N 05/21/2019 JAVIER WATSON MD Ot E66.01 MORBID (SEVERE) OBESITY DUE TO EXCESS CA 05/21/2019 JAVIER WATSON MD Ot E78.00 PURE HYPERCHOLESTEROLEMIA, UNSPECIFIED 05/21/2019 JAVIER WATSON MD Ot F32 .9 MAJOR DEPRESSIVE DISORDER, SINGLE EPISOD 05/21/2019 JAVIER WATSON MD Ot F41 .9 ANXIETY DISORDER, UNSPECIFIED 05/21/2019 JAVIER WATSON MD Ot G47.33 OBSTRUCTIVE SLEEP APNEA (ADULT) (PEDIATR 05/21/2019 JAVIER WATSON MD Ot G89.29 OTHER CHRONIC PAIN 05/21/2019 JAVIER WATSON MD Ot H26 .9 UNSPECIFIED CATARACT 05/21/2019 JVAIER WATSON MD Ot I10 ESSENTIAL (PRIMARY) HYPERTENSION 05/21/2019 JAVIER WATSON MD Ot I25.1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 05/21/2019 JAVIER WATSON MD Ot I25 .2 OLD MYOCARDIAL INFARCTION 05/21/2019 JAVIER WATSON MD Ot I48 .0 PAROXYSMAL ATRIAL FIBRILLATION 05/21/2019 JAVIER WATSON MD Ot J45.909 UNSPECIFIED ASTHMA, UNCOMPLICATED 05/21/2019 JAVIER WATSON MD Ot K21 .9 GASTRO-ESOPHAGEAL REFLUX DISEASE WITHOUT 05/21/2019 JAVIER WATSON MD Ot M19.90 UNSPECIFIED OSTEOARTHRITIS, UNSPECIFIED 05/21/2019 JAVIER WATSON MD Ot M54 .9 DORSALGIA, UNSPECIFIED 05/21/2019 JAVIER WATSON MD, Ot N39 .0 URINARY TRACT INFECTION, SITE NOT SPECIF 05/21/2019 JAVIER WATSON MD, Ot Z68.41 BODY MASS INDEX (BMI) 40.0-44.9, ADULT 05/21/2019 JAVIER WATSON MD, Ot Z79 .4 CREATIVE SERVICES COORDINATOR (CURRENT) USE OF INSULIN 05/21/2019 JAVIER WATSON MD, Ot Z79.82 SKILLED NURSING (CURRENT) USE OF ASPIRIN 05/21/2019 JAVIER WATSON MD, Ot Z87.891 PERSONAL HISTORY OF NICOTINE DEPENDENCE 05/21/2019 JAVIER WATSON MD, Ot Z95 .5 PRESENCE OF CORONARY ANGIOPLASTY IMPLANT 05/22/2019 SIVAKUMAR CONTRERAS MD Ot E11. 40 TYPE 2 DIABETES MELLITUS WITH DIABETIC N 05/22/2019 SIVAKUMAR CONTRERAS MD Ot E66. 01 MORBID (SEVERE) OBESITY DUE TO EXCESS CA 05/22/2019 SIVAKUMAR CONTRERAS MD Ot E78. 00 PURE HYPERCHOLESTEROLEMIA, UNSPECIFIED 05/22/2019 SIVAKUMAR COTNRERAS MD Ot F32. 9 MAJOR DEPRESSIVE DISORDER, SINGLE EPISOD 05/22/2019 SIVAKUMAR CONTRERAS MD Ot F41. 9 ANXIETY DISORDER, UNSPECIFIED 05/22/2019 SIVAKUMAR CONTRERAS MD, Ot G47. 30 SLEEP APNEA, UNSPECIFIED 05/22/2019 SIVAKUMAR CONTRERAS MD Ot I10 ESSENTIAL (PRIMARY) HYPERTENSION 05/22/2019 SIVAKUMAR CONTRERAS MD Ot I25. 1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 05/22/2019 SIVAKUMAR CONTRERAS MD, Ot I25. 2 OLD MYOCARDIAL INFARCTION 05/22/2019 SIVAKUMAR CONTRERAS MD Ot I48. 91 UNSPECIFIED ATRIAL FIBRILLATION 05/22/2019 SIVAKUMAR CONTRERAS MD Ot K21. 9 GASTRO-ESOPHAGEAL REFLUX DISEASE WITHOUT 05/22/2019 SIVAKUMAR CONTRERAS MD, Ot N39. 0 URINARY TRACT INFECTION, SITE NOT SPECIF 05/22/2019 SIVAKUMAR CONTRERAS MD Ot R00. 2 PALPITATIONS 05/22/2019 SIVAKUMAR CONTRERAS MD, Ot Z79. 01 CREATIVE SERVICES COORDINATOR (CURRENT) USE OF ANTICOAGULANT 05/22/2019 SIVAKUMAR CONTRERAS MD, Ot Z79. 4 CREATIVE SERVICES COORDINATOR (CURRENT) USE OF INSULIN 05/22/2019 SIVAKUMAR CONTRERAS MD, Ot Z79. 51 CREATIVE SERVICES COORDINATOR (CURRENT) USE OF INHALED STERO 05/22/2019 SIVAKUMAR CONTRERAS MD, Ot Z79. 82 CREATIVE SERVICES COORDINATOR (CURRENT) USE OF ASPIRIN 05/22/2019 SIVAKUMAR CONTRERAS MD, Ot Z80. 0 FAMILY HISTORY OF MALIGNANT NEOPLASM OF 05/22/2019 SIVAKUMAR CONTRERAS MD, Ot Z82. 49 FAMILY HX OF ISCHEM HEART DIS AND OTH DI 05/22/2019 SIVAKUMAR CONTRERAS MD, Ot Z85. 42 PERSONAL HISTORY OF MALIGNANT NEOPLASM O 05/22/2019 SIVAKUMAR CONTRERAS MD, Ot Z86.718 PERSONAL HISTORY OF OTHER VENOUS THROMBO 05/22/2019 SIVAKUMAR CONTRERAS MD, Ot Z87.440 PERSONAL HISTORY OF URINARY (TRACT) INFE 05/22/2019 SIVAKUMAR CONTRERAS MD, Ot Z87.891 PERSONAL HISTORY OF NICOTINE DEPENDENCE 05/22/2019 SIVAKUMAR CONTRERAS MD, Ot Z88. 8 ALLERGY STATUS TO [facility] DRUG/MEDS/BIOL SUB 05/22/2019 SIVAKUMAR CONTRERAS MD Ot Z95. 5 PRESENCE OF CORONARY ANGIOPLASTY IMPLANT 05/22/2019 SIVAKUMAR CONTRERAS MD, Ot Z99. 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 40 TYPE 2 DIABETES MELLITUS WITH DIABETIC N 05/24/2019 SIVAKUMAR CONTRERAS MD, Ot E66. 01 MORBID (SEVERE) OBESITY DUE TO EXCESS CA 05/24/2019 SIVAKUMAR CONTRERAS MD Ot E78. 00 PURE HYPERCHOLESTEROLEMIA, UNSPECIFIED 05/24/2019 SIVAKUMAR CONTRERAS MD Ot F32. 9 MAJOR DEPRESSIVE DISORDER, SINGLE EPISOD 05/24/2019 SIVAKUMAR CONTRERAS MD, Ot F41. 9 ANXIETY DISORDER, UNSPECIFIED 05/24/2019 SIVAKUMAR CONTRERAS MD Ot G47. 30 SLEEP APNEA, UNSPECIFIED 05/24/2019 SIVAKUMAR CONTRERAS MD Ot I10 ESSENTIAL (PRIMARY) HYPERTENSION 05/24/2019 SIVAKUMAR CONTRERAS MD, Ot I25. 1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 05/24/2019 SIVAKUMAR CONTRERAS MD Ot I25. 2 OLD MYOCARDIAL INFARCTION 05/24/2019 SIVAKUMAR CONTRERAS MD Ot I48. 91 UNSPECIFIED ATRIAL FIBRILLATION 05/24/2019 SIVAKUMAR CONTRERAS MD, Ot K21. 9 GASTRO-ESOPHAGEAL REFLUX DISEASE WITHOUT 05/24/2019 SIVAKUMAR CONTRERAS MD, Ot N39. 0 URINARY TRACT INFECTION, SITE NOT SPECIF 05/24/2019 SIVAKUMAR CONTRERAS MD, Ot R00. 2 PALPITATIONS 05/24/2019 SIVAKUMAR CONTRERAS MD, Ot Z79. 01 SKILLED NURSING (CURRENT) USE OF ANTICOAGULANT 05/24/2019 SIVAKUMAR CONTRERAS MD, Ot Z79. 4 SKILLED NURSING (CURRENT) USE OF INSULIN 05/24/2019 SIVAKUMAR CONTRERAS MD, Ot Z79. 51 SKILLED NURSING (CURRENT) USE OF INHALED STERO 05/24/2019 SIVAKUMAR CONTRERAS MD, Ot Z79. 82 SKILLED NURSING (CURRENT) USE OF ASPIRIN 05/24/2019 SIVAKUMAR CONTRERAS MD, Ot Z80. 0 FAMILY HISTORY OF MALIGNANT NEOPLASM OF 05/24/2019 SIVAKUMAR CONTRERAS MD, Ot Z82. 49 FAMILY HX OF ISCHEM HEART DIS AND OTH DI 05/24/2019 SIVAKUMAR CONTRERAS MD, Ot Z85. 42 PERSONAL HISTORY OF MALIGNANT NEOPLASM O 05/24/2019 SIVAKUMAR CONTRERAS MD, Ot Z86.718 PERSONAL HISTORY OF OTHER VENOUS THROMBO 05/24/2019 SIVAKUMAR CONTRERAS MD, Ot Z87.440 PERSONAL HISTORY OF URINARY (TRACT) INFE 05/24/2019 SIVAKUMAR CONTRERAS MD, Ot Z87.891 PERSONAL HISTORY OF NICOTINE DEPENDENCE 05/24/2019 SIVAKUMAR CONTRERAS MD, Ot Z88. 8 ALLERGY STATUS TO [facility] DRUG/MEDS/BIOL SUB 05/24/2019 SIVAKUMAR CONTRERAS MD, Ot Z95. 5 PRESENCE OF CORONARY ANGIOPLASTY IMPLANT 05/24/2019 SIVAKUMAR CONTRERAS MD, Ot Z99. 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 05/28/2019 TELLO DO, SAWYER Ot I82.40 2 ACUTE EMBOLISM AND THOMBOS UNSP DEEP VEI 05/28/2019 DELIA TRIANA MD Ot I82.412 ACUTE EMBOLISM AND THROMBOSIS OF LEFT FE 05/28/2019 DELIA TRIANA MD Ot I82.412 ACUTE EMBOLISM AND THROMBOSIS OF LEFT FE 05/28/2019 NATE WU DO Ot I82.412 ACUTE EMBOLISM AND THROMBOSIS OF LEFT FE 05/28/2019 DELIA TRIANA MD Ot I82.412 ACUTE EMBOLISM AND THROMBOSIS OF LEFT FE 05/28/2019 DELIA TRIANA MD Ot I82.4Y2 AC EMBLSM AND THOMBOS UNSP DEEP VEINS OF 05/28/2019 NATE MORGAN MD Ot E11.42 TYPE 2 DIABETES MELLITUS WITH DIABETIC P 05/28/2019 NATE MORGAN MD Ot E11.621 TYPE 2 DIABETES MELLITUS WITH FOOT ULCER 05/28/2019 NATE MORGAN MD Ot 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 05/28/2019 NATE MORGAN MD Ot I87.012 POSTTHROMBOTIC SYNDROME WITH ULCER OF LE 05/28/2019 NATE MORGAN MD Ot L97.512 NON-PRS CHRONIC ULCER OTH PRT RIGHT FOOT 05/28/2019 NATE MORGAN MD Ot M14.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, RIGHT ANKLE AND FOOT 05/28/2019 NATE MORGAN MD, Ot M14.672 [place], LEFT ANKLE AND FOOT 05/28/2019 NATE MORGAN MD Ot E11.42 TYPE 2 DIABETES MELLITUS WITH DIABETIC P 05/28/2019 NATE MORGAN MD Ot E11.621 TYPE 2 DIABETES MELLITUS WITH FOOT ULCER 05/28/2019 NATE MORGAN MD Ot 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 05/28/2019 NATE MORGAN MD Ot I87.012 POSTTHROMBOTIC SYNDROME WITH ULCER OF LE 05/28/2019 NATE MORGAN MD Ot L92 .8 OTH GRANULOMATOUS DISORDERS OF THE SKIN, 05/28/2019 NATE MORGAN MD Ot L97.512 NON-PRS CHRONIC ULCER OTH PRT RIGHT FOOT 05/28/2019 NATE MORGAN MD Ot L97.522 NON-PRS CHRONIC ULCER OTH PRT LEFT FOOT 05/28/2019 NATE MORGAN MD Ot M14.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, RIGHT ANKLE AND FOOT 05/28/2019 NATE MORGAN MD, Ot M14.672 [place], LEFT ANKLE AND FOOT 05/28/2019 DELIA TRIANA MD Ot I82.4Y2 AC EMBLSM AND THOMBOS UNSP DEEP VEINS OF 05/28/2019 DELIA TRIANA MD Ot Z79.01 CREATIVE SERVICES COORDINATOR (CURRENT) USE OF ANTICOAGULANT 05/28/2019 OTHER, UNLISTED Ot Z12.31 ENCNTR SCREEN MAMMOGRAM FOR MALIGNANT NE 05/28/2019 CHARLY JOSE MD, Ot Z48.812 ENCNTR FOR SURGICAL AFTCR FOLLOWING SURG 05/28/2019 CHARLY JOSE MD Ot Z95. 5 PRESENCE OF CORONARY ANGIOPLASTY IMPLANT 05/29/2019 CHARLY JOSE MD Ot I10 ESSENTIAL (PRIMARY) HYPERTENSION 05/29/2019 CHARLY JOSE MD Ot I34. 0 NONRHEUMATIC MITRAL (VALVE) INSUFFICIENC 05/29/2019 CHARLY JOSE MD Ot I47. 1 SUPRAVENTRICULAR TACHYCARDIA 05/29/2019 CHARLY JOSE MD, Ot I48. 0 PAROXYSMAL ATRIAL FIBRILLATION 05/29/2019 CHARLY JOSE MD Ot I82.492 ACUTE EMBOLISM AND THROMBOSIS OF DEEP VE 05/29/2019 CHARLY JOSE MD Ot R00. 2 PALPITATIONS 05/29/2019 KAMILAH GRAJEDA, DELIA Boo Ot R06.09 OTHER FORMS OF DYSPNEA 05/29/2019 TALYA VALVERDE Ot E78.2 MIXED HYPERLIPIDEMIA 05/29/2019 TALYA VALVERED Ot I10 ESSENTIAL (PRIMARY) HYPERTENSION 05/29/2019 NATE GEE MD Ot M24.112 OTHER ARTICULAR CARTILAGE DISORDERS, LEF 05/29/2019 NATE GEE MD, Ot M25.812 OTHER SPECIFIED JOINT DISORDERS, LEFT SH 05/29/2019 NATE GEE MD Ot S46.012A STRAIN OF MUSC/TEND THE ROTATOR CUFF OF 05/29/2019 NATE GEE MD, Ot S49.92XA UNSP INJURY OF LEFT SHOULDER AND UPPER A 05/29/2019 FRANKLIN SAMPSON APRN Ot R06.02 SHORTNESS OF BREATH 05/29/2019 FRANKLIN SAMPSON APRN Ot Z86.718 PERSONAL HISTORY OF OTHER VENOUS THROMBO 05/29/2019 FRANKLIN SAMPSON APRN Ot Z87.891 PERSONAL HISTORY OF NICOTINE DEPENDENCE 05/29/2019 FRANKLIN SAMPSON APRN Ot R06.02 SHORTNESS OF BREATH 05/29/2019 FRANKLIN SAMPSON APRN Ot Z86.718 PERSONAL HISTORY OF OTHER VENOUS THROMBO 05/29/2019 FRANKLIN SAMPSON APRN Ot Z87.891 PERSONAL HISTORY OF NICOTINE DEPENDENCE 05/29/2019 JOSE DE JESUS GRAJEDA, GAVINO Carbajal Ot Z12.31 ENCNTR SCREEN MAMMOGRAM FOR MALIGNANT NE 05/29/2019 CHARLY JOSE MD Ot E11. 9 TYPE 2 DIABETES MELLITUS WITHOUT COMPLIC 05/29/2019 CHARLY JOSE MD Ot E78. 5 HYPERLIPIDEMIA, UNSPECIFIED 05/29/2019 CHARLY JOSE MD Ot F32. 9 MAJOR DEPRESSIVE DISORDER, SINGLE EPISOD 05/29/2019 CHARLY JOSE MD Ot G47. 10 HYPERSOMNIA, UNSPECIFIED 05/29/2019 CHARLY JOSE MD, Ot G47. 33 OBSTRUCTIVE SLEEP APNEA (ADULT) (PEDIATR 05/29/2019 CHARLY JOSE MD, Ot I10 ESSENTIAL (PRIMARY) HYPERTENSION 05/29/2019 CHARLY JOSE MD, Ot I47. 1 SUPRAVENTRICULAR TACHYCARDIA 05/29/2019 CHARLY JOSE MD Ot I48. 0 PAROXYSMAL ATRIAL FIBRILLATION 05/29/2019 CHARLY JOSE MD, Ot I73. 9 PERIPHERAL VASCULAR DISEASE, UNSPECIFIED 05/29/2019 CHARLY JOSE MD, Ot J30. 2 OTHER SEASONAL ALLERGIC RHINITIS 05/29/2019 CHARLY JOSE MD Ot M54. 9 DORSALGIA, UNSPECIFIED 05/29/2019 CHARLY JOSE MD Ot R00. 2 PALPITATIONS 05/29/2019 CHARLY JSOE MD, Ot Z79. 4 SKILLED NURSING (CURRENT) USE OF INSULIN 05/29/2019 CHARLY JOSE MD, Ot Z79.899 OTHER CREATIVE SERVICES COORDINATOR (CURRENT) DRUG THERAPY 05/29/2019 CHARLY JOSE MD, Ot Z86.718 PERSONAL HISTORY OF OTHER VENOUS THROMBO 05/29/2019 CHARLY JOSE MD, Ot Z87.891 PERSONAL HISTORY OF NICOTINE DEPENDENCE 05/29/2019 CHARLY JOSE MD, Ot Z48.812 ENCNTR FOR SURGICAL AFTCR FOLLOWING SURG 05/29/2019 CHARLY JOSE MD Ot Z95. 5 PRESENCE OF CORONARY ANGIOPLASTY IMPLANT 06/01/2019 SAWYER TELLO DO Ot B96.5 PSEUDOMONAS (MALLEI) CAUSING DISEASES CL 06/01/2019 SAWYER TELLO DO Ot E11.40 TYPE 2 DIABETES MELLITUS WITH DIABETIC N 06/01/2019 TELLO DO, SAWYER Ot E11.61 0 TYPE 2 DIABETES MELLITUS W DIABETIC NEUR 06/01/2019 TELLO DO, SAWYER Ot E66.01 MORBID (SEVERE) OBESITY DUE TO EXCESS CA 06/01/2019 TELLO DO, SAWYER Ot E78.5 HYPERLIPIDEMIA, UNSPECIFIED 06/01/2019 TELLO DO, SAWYER Ot F32.9 MAJOR DEPRESSIVE DISORDER, SINGLE EPISOD 06/01/2019 TELLO DO, SAWYER Ot F41.9 ANXIETY DISORDER, UNSPECIFIED 06/01/2019 TELLO DO, SAWYER Ot G47.33 OBSTRUCTIVE SLEEP APNEA (ADULT) (PEDIATR 06/01/2019 TELLO DO, SAWYER Ot I10 ESSENTIAL (PRIMARY) HYPERTENSION 06/01/2019 TELLO DO, SAWYER Ot I25.11 9 ATHSCL HEART DISEASE OF [place] ART W 06/01/2019 TELLO DO, SAWYER Ot I25.2 OLD MYOCARDIAL INFARCTION 06/01/2019 TELLO DO, SAWYER Ot I48.0 PAROXYSMAL ATRIAL FIBRILLATION 06/01/2019 TELLO DO, SAWYER Ot J45.90 9 UNSPECIFIED ASTHMA, UNCOMPLICATED 06/01/2019 TELLO DO, SAWYER Ot K21.9 GASTRO-ESOPHAGEAL REFLUX DISEASE WITHOUT 06/01/2019 TELLO DO, SAWYER Ot M19.91 PRIMARY OSTEOARTHRITIS, UNSPECIFIED SITE 06/01/2019 TELLO DO, SAWYER Ot M54.9 DORSALGIA, UNSPECIFIED 06/01/2019 TELLO DO, SAWYER Ot N39.0 URINARY TRACT INFECTION, SITE NOT SPECIF 06/01/2019 TELLO DO, SAWYER Ot R91.1 SOLITARY PULMONARY NODULE 06/01/2019 TELLO DO, SAWYER Ot Z68.41 BODY MASS INDEX (BMI) 40.0-44.9, ADULT 06/01/2019 TELLO DO, SAWYER Ot Z79.01 CREATIVE SERVICES COORDINATOR (CURRENT) USE OF ANTICOAGULANT 06/01/2019 TELLO DO, SAWYER Ot Z86.71 8 PERSONAL HISTORY OF OTHER VENOUS THROMBO 06/01/2019 ELISHA DO, SAWYER Ot Z87.89 1 PERSONAL HISTORY OF NICOTINE DEPENDENCE 06/01/2019 TELLO DO, SAWYER Ot B96.5 PSEUDOMONAS ([place]) CAUSING DISEASES CL 06/01/2019 TELLO DO, SAWYER Ot E11.40 TYPE 2 DIABETES MELLITUS WITH DIABETIC N 06/01/2019 TELLO DO, SAWYER Ot E11.61 0 TYPE 2 DIABETES MELLITUS W DIABETIC NEUR 06/01/2019 TELLO DO, SAWYER Ot E66.01 MORBID (SEVERE) OBESITY DUE TO EXCESS CA 06/01/2019 TELLO DO, SAWYER Ot E78.5 HYPERLIPIDEMIA, UNSPECIFIED 06/01/2019 TELLO DO, SAWYER Ot F32.9 MAJOR DEPRESSIVE DISORDER, SINGLE EPISOD 06/01/2019 TELLO DO, SAWYER Ot F41.9 ANXIETY DISORDER, UNSPECIFIED 06/01/2019 TELLO DO, SAWYER Ot G47.33 OBSTRUCTIVE SLEEP APNEA (ADULT) (PEDIATR 06/01/2019 TELLO DO, SAWYER Ot I10 ESSENTIAL (PRIMARY) HYPERTENSION 06/01/2019 TELLO DO, SAWYER Ot I25.11 9 ATHSCL HEART DISEASE OF [place] COR ART W 06/01/2019 TELLO DO, SAWYER Ot I25.2 OLD MYOCARDIAL INFARCTION 06/01/2019 TELLO DO, SAWYER Ot I48.0 PAROXYSMAL ATRIAL FIBRILLATION 06/01/2019 TELLO DO, SAWYER Ot J45.90 9 UNSPECIFIED ASTHMA, UNCOMPLICATED 06/01/2019 TELLO DO, SAWYER Ot K21.9 GASTRO-ESOPHAGEAL REFLUX DISEASE WITHOUT 06/01/2019 TELLO DO, SAWYER Ot M19.91 PRIMARY OSTEOARTHRITIS, UNSPECIFIED SITE 06/01/2019 TELLO DO, SAWYER Ot M54.9 DORSALGIA, UNSPECIFIED 06/01/2019 TELLO DO, SAWYER Ot N39.0 URINARY TRACT INFECTION, SITE NOT SPECIF 06/01/2019 TELLO DO, SAWYER Ot R91.1 SOLITARY PULMONARY NODULE 06/01/2019 ELISHA DO, SAWYER Ot Z68.41 BODY MASS INDEX (BMI) 40.0-44.9, ADULT 06/01/2019 TELLO DO, SAWYER Ot Z79.01 CREATIVE SERVICES COORDINATOR (CURRENT) USE OF ANTICOAGULANT 06/01/2019 TELLO DO, SAWYER Ot Z86.71 8 PERSONAL HISTORY OF OTHER VENOUS THROMBO 06/01/2019 ELISHA DO, SAWYER Ot Z87.89 1 PERSONAL HISTORY OF NICOTINE DEPENDENCE 06/02/2019 ELISHA DO, SAWYER Ot B96.5 PSEUDOMONAS ([place]) CAUSING DISEASES CL 06/02/2019 TELLO DO, SAWYER Ot E11.40 TYPE 2 DIABETES MELLITUS WITH DIABETIC N 06/02/2019 TELLO DO, SAWYER Ot E11.61 0 TYPE 2 DIABETES MELLITUS W DIABETIC NEUR 06/02/2019 TELLO DO, SAWYER Ot E66.01 MORBID (SEVERE) OBESITY DUE TO EXCESS CA 06/02/2019 TELLO DO, SAWYER Ot E78.5 HYPERLIPIDEMIA, UNSPECIFIED 06/02/2019 TELLO DO, SAWYER Ot F32.9 MAJOR DEPRESSIVE DISORDER, SINGLE EPISOD 06/02/2019 TELLO DO, SAWYER Ot F41.9 ANXIETY DISORDER, UNSPECIFIED 06/02/2019 TELLO DO, SAWYER Ot G47.33 OBSTRUCTIVE SLEEP APNEA (ADULT) (PEDIATR 06/02/2019 TELLO DO, SAWYER Ot I10 ESSENTIAL (PRIMARY) HYPERTENSION 06/02/2019 TELLO DO, SAWYER Ot I25.11 9 ATHSCL HEART DISEASE OF [place] ART W 06/02/2019 TELLO DO, SAWYER Ot I25.2 OLD MYOCARDIAL INFARCTION 06/02/2019 TELLO DO, SAWYER Ot I48.0 PAROXYSMAL ATRIAL FIBRILLATION 06/02/2019 TELLO DO, SAWYER Ot J45.90 9 UNSPECIFIED ASTHMA, UNCOMPLICATED 06/02/2019 TELLO DO, SAWYER Ot K21.9 GASTRO-ESOPHAGEAL REFLUX DISEASE WITHOUT 06/02/2019 TELLO DO, SAWYER Ot M19.91 PRIMARY OSTEOARTHRITIS, UNSPECIFIED SITE 06/02/2019 TELLO DO, SAWYER Ot M54.9 DORSALGIA, UNSPECIFIED 06/02/2019 TELLO DO, SAWYER Ot N39.0 URINARY TRACT INFECTION, SITE NOT SPECIF 06/02/2019 TELLO DO, SAWYER Ot R91.1 SOLITARY PULMONARY NODULE 06/02/2019 ELISHA DO, SAWYER Ot Z68.41 BODY MASS INDEX (BMI) 40.0-44.9, ADULT 06/02/2019 TELLO DO, SAWYER Ot Z79.01 SKILLED NURSING (CURRENT) USE OF ANTICOAGULANT 06/02/2019 TELLO DO, SAWYER Ot Z86.71 8 PERSONAL HISTORY OF OTHER VENOUS THROMBO 06/02/2019 ELISHA DO, SAWYER Ot Z87.89 1 PERSONAL HISTORY OF NICOTINE DEPENDENCE 06/02/2019 ELISHA DO, SAWYER Ot B96.5 PSEUDOMONAS ([place]) CAUSING DISEASES CL 06/02/2019 TELLO DO, SAWYER Ot E11.40 TYPE 2 DIABETES MELLITUS WITH DIABETIC N 06/02/2019 TELLO DO, SAWYER Ot E11.61 0 TYPE 2 DIABETES MELLITUS W DIABETIC NEUR 06/02/2019 TELLO DO, SAWYER Ot E66.01 MORBID (SEVERE) OBESITY DUE TO EXCESS CA 06/02/2019 TELLO DO, SAWYER Ot E78.5 HYPERLIPIDEMIA, UNSPECIFIED 06/02/2019 TELLO DO, SAWYER Ot F32.9 MAJOR DEPRESSIVE DISORDER, SINGLE EPISOD 06/02/2019 TELLO DO, SAWYER Ot F41.9 ANXIETY DISORDER, UNSPECIFIED 06/02/2019 TELLO DO, SAWYER Ot G47.33 OBSTRUCTIVE SLEEP APNEA (ADULT) (PEDIATR 06/02/2019 TELLO DO, SAWYER Ot I10 ESSENTIAL (PRIMARY) HYPERTENSION 06/02/2019 TELLO DO, SAWYER Ot I25.11 9 ATHSCL HEART DISEASE OF [place] ART W 06/02/2019 TELLO DO, SAWYER Ot I25.2 OLD MYOCARDIAL INFARCTION 06/02/2019 TELLO DO, SAWYER Ot I48.0 PAROXYSMAL ATRIAL FIBRILLATION 06/02/2019 TELLO DO, SAWYER Ot J45.90 9 UNSPECIFIED ASTHMA, UNCOMPLICATED 06/02/2019 TELLO DO, SAWYER Ot J81.1 CHRONIC PULMONARY EDEMA 06/02/2019 TELLO DO, SAWYER Ot K21.9 GASTRO-ESOPHAGEAL REFLUX DISEASE WITHOUT 06/02/2019 TELLO DO, SAWYER Ot M19.90 UNSPECIFIED OSTEOARTHRITIS, UNSPECIFIED 06/02/2019 TELLO DO, SAWYER Ot M19.91 PRIMARY OSTEOARTHRITIS, UNSPECIFIED SITE 06/02/2019 TELLO DO, SAWYER Ot M54.9 DORSALGIA, UNSPECIFIED 06/02/2019 TELLO DO, SAWYER Ot N39.0 URINARY TRACT INFECTION, SITE NOT SPECIF 06/02/2019 TELLO DO, SAWYER Ot R91.1 SOLITARY PULMONARY NODULE 06/02/2019 TELLO DO, SAWYER Ot Z68.41 BODY MASS INDEX (BMI) 40.0-44.9, ADULT 06/02/2019 TELLO DO, SAWYER Ot Z79.01 CREATIVE SERVICES COORDINATOR (CURRENT) USE OF ANTICOAGULANT 06/02/2019 TELLO DO, SAWYER Ot Z86.71 8 PERSONAL HISTORY OF OTHER VENOUS THROMBO 06/02/2019 TELLO DO, SAWYER Ot Z87.89 1 PERSONAL HISTORY OF NICOTINE DEPENDENCE 06/02/2019 TELLO DO, SAWYER Ot Z95.5 PRESENCE OF CORONARY ANGIOPLASTY IMPLANT 06/07/2019 REBECA GRAJEDA, CHARLY Isbell Ot I10 ESSENTIAL (PRIMARY) HYPERTENSION 06/07/2019 REBECA GRAJEDA, CHARLY Isbell Ot I34. 0 NONRHEUMATIC MITRAL (VALVE) INSUFFICIENC 06/07/2019 CHARLY JOSE MD Ot I47. 1 SUPRAVENTRICULAR TACHYCARDIA 06/07/2019 CHARLY JOSE MD Ot I48. 0 PAROXYSMAL ATRIAL FIBRILLATION 06/07/2019 REBECA GRAJEDA, CHARLY Isbell Ot I82.492 ACUTE EMBOLISM AND THROMBOSIS OF [place] 06/07/2019 CHARLY JOSE MD Ot R00. 2 PALPITATIONS 06/07/2019 KAMILAH GRAJEDA, DELIA Boo Ot R06.09 OTHER FORMS OF DYSPNEA 06/07/2019 TALYA VALVERDE Ot E78.2 MIXED HYPERLIPIDEMIA 06/07/2019 TALYA VALVERDE Ot I10 ESSENTIAL (PRIMARY) HYPERTENSION 06/07/2019 GERARD GRAJEDA, NATE Mitchell Ot M24.112 OTHER ARTICULAR CARTILAGE DISORDERS, LEF 06/07/2019 GERARD GRAJEDA, NATE Mitchell Ot M25.812 OTHER SPECIFIED JOINT DISORDERS, LEFT SH 06/07/2019 GERARD GRAJEDA, NATE Mitchell Ot S46.012A STRAIN OF MUSC/TEND THE ROTATOR CUFF OF 06/07/2019 GERARD GRAJEDA, NATE Mitchell Ot S49.92XA UNSP INJURY OF LEFT SHOULDER AND UPPER A 06/07/2019 FRANKLIN SAMPSON APRN Ot R06.02 SHORTNESS OF BREATH 06/07/2019 FRANKLIN SAMPSON APRN Ot Z86.718 PERSONAL HISTORY OF OTHER VENOUS THROMBO 06/07/2019 FRANKLIN SAMPSON APRN Ot Z87.891 PERSONAL HISTORY OF NICOTINE DEPENDENCE 06/07/2019 FRANKLIN SAMPSON APRN Ot R06.02 SHORTNESS OF BREATH 06/07/2019 FRANKLIN SAMPSON APRN Ot Z86.718 PERSONAL HISTORY OF OTHER VENOUS THROMBO 06/07/2019 FRANKLIN SAMPSON APRN Ot Z87.891 PERSONAL HISTORY OF NICOTINE DEPENDENCE 06/07/2019 JOSE DE JESUS GRAJEDA, GAVINO Carbajal Ot Z12.31 ENCNTR SCREEN MAMMOGRAM FOR MALIGNANT NE 06/07/2019 CHARLY JOSE MD Ot E11. 9 TYPE 2 DIABETES MELLITUS WITHOUT COMPLIC 06/07/2019 CHARLY JOSE MD Ot E78. 5 HYPERLIPIDEMIA, UNSPECIFIED 06/07/2019 CHARLY JOSE MD Ot F32. 9 MAJOR DEPRESSIVE DISORDER, SINGLE EPISOD 06/07/2019 CHARLY JOSE MD Ot G47. 10 HYPERSOMNIA, UNSPECIFIED 06/07/2019 CHARLY JOSE MD Ot G47. 33 OBSTRUCTIVE SLEEP APNEA (ADULT) (PEDIATR 06/07/2019 CHARLY JOSE MD Ot I10 ESSENTIAL (PRIMARY) HYPERTENSION 06/07/2019 CHARLY JOSE MD Ot I47. 1 SUPRAVENTRICULAR TACHYCARDIA 06/07/2019 CHARLY JOSE MD Ot I48. 0 PAROXYSMAL ATRIAL FIBRILLATION 06/07/2019 CHARLY JOSE MD Ot I73. 9 PERIPHERAL VASCULAR DISEASE, UNSPECIFIED 06/07/2019 CHARLY JOSE MD Ot J30. 2 OTHER SEASONAL ALLERGIC RHINITIS 06/07/2019 CHARLY JOSE MD Ot M54. 9 DORSALGIA, UNSPECIFIED 06/07/2019 CHARLY JOSE MD Ot R00. 2 PALPITATIONS 06/07/2019 CHARLY JOSE MD Ot Z79. 4 SKILLED NURSING (CURRENT) USE OF INSULIN 06/07/2019 CHARLY JOSE MD Ot Z79.899 OTHER CREATIVE SERVICES COORDINATOR (CURRENT) DRUG THERAPY 06/07/2019 CHARLY JOSE MD Ot Z86.718 PERSONAL HISTORY OF OTHER VENOUS THROMBO 06/07/2019 CHARLY JOSE MD Ot Z87.891 PERSONAL HISTORY OF NICOTINE DEPENDENCE 06/07/2019 CHARLY JOSE MD Ot Z48.812 ENCNTR FOR SURGICAL AFTCR FOLLOWING SURG 06/07/2019 CHARLY JOSE MD Ot Z95. 5 PRESENCE OF CORONARY ANGIOPLASTY IMPLANT 06/07/2019 CHARLY JOSE MD Ot I10 ESSENTIAL (PRIMARY) HYPERTENSION 06/07/2019 CHARLY JOSE MD Ot I34. 0 NONRHEUMATIC MITRAL (VALVE) INSUFFICIENC 06/07/2019 CHARLY JOSE MD Ot I47. 1 SUPRAVENTRICULAR TACHYCARDIA 06/07/2019 CHARLY JOSE MD Ot I48. 0 PAROXYSMAL ATRIAL FIBRILLATION 06/07/2019 CHARLY JOSE MD Ot I82.492 ACUTE EMBOLISM AND THROMBOSIS OF [place] 06/07/2019 CHARLY JOSE MD Ot R00. 2 PALPITATIONS 06/07/2019 KAMILAH GRAJEDA, DELIA Boo Ot R06.09 OTHER FORMS OF DYSPNEA 06/07/2019 TALYA VALVERDE Ot E78.2 MIXED HYPERLIPIDEMIA 06/07/2019 TALYA VALVERDE Ot I10 ESSENTIAL (PRIMARY) HYPERTENSION 06/07/2019 GERARD GRAJEDA, NATE Mitchell Ot M24.112 OTHER ARTICULAR CARTILAGE DISORDERS, LEF 06/07/2019 NATE GEE MD, Ot M25.812 OTHER SPECIFIED JOINT DISORDERS, LEFT SH 06/07/2019 GERARD GRAJEDA, NATE Mitchell Ot S46.012A STRAIN OF MUSC/TEND THE ROTATOR CUFF OF 06/07/2019 NATE GEE MD, Ot S49.92XA UNSP INJURY OF LEFT SHOULDER AND UPPER A 06/07/2019 FRANKLIN SAMPSON APRN Ot R06.02 SHORTNESS OF BREATH 06/07/2019 FRANKLIN SAMPSON APRN Ot Z86.718 PERSONAL HISTORY OF OTHER VENOUS THROMBO 06/07/2019 FRANKLIN SAMPSON APRN Ot Z87.891 PERSONAL HISTORY OF NICOTINE DEPENDENCE 06/07/2019 FRANKLIN SAMPSON APRN Ot R06.02 SHORTNESS OF BREATH 06/07/2019 FRANKLIN SAMPSON APRN Ot Z86.718 PERSONAL HISTORY OF OTHER VENOUS THROMBO 06/07/2019 FRANKLIN SAMPSON APRN Ot Z87.891 PERSONAL HISTORY OF NICOTINE DEPENDENCE 06/07/2019 JOSE DE JESUS GRAJEDA, GAVINO Carbajal Ot Z12.31 ENCNTR SCREEN MAMMOGRAM FOR MALIGNANT NE 06/07/2019 CHARLY JOSE MD Ot E11. 9 TYPE 2 DIABETES MELLITUS WITHOUT COMPLIC 06/07/2019 CHARLY JOSE MD Ot E78. 5 HYPERLIPIDEMIA, UNSPECIFIED 06/07/2019 CHARLY JOSE MD Ot F32. 9 MAJOR DEPRESSIVE DISORDER, SINGLE EPISOD 06/07/2019 CHARLY JOSE MD Ot G47. 10 HYPERSOMNIA, UNSPECIFIED 06/07/2019 CHARLY JOSE MD, Ot G47. 33 OBSTRUCTIVE SLEEP APNEA (ADULT) (PEDIATR 06/07/2019 CHARLY JOSE MD, Ot I10 ESSENTIAL (PRIMARY) HYPERTENSION 06/07/2019 CHARLY JOSE MD Ot I47. 1 SUPRAVENTRICULAR TACHYCARDIA 06/07/2019 CHARLY JOSE MD Ot I48. 0 PAROXYSMAL ATRIAL FIBRILLATION 06/07/2019 CHARLY JOSE MD, Ot I73. 9 PERIPHERAL VASCULAR DISEASE, UNSPECIFIED 06/07/2019 CHARLY JOSE MD, Ot J30. 2 OTHER SEASONAL ALLERGIC RHINITIS 06/07/2019 CHARLY JOSE MD, Ot M54. 9 DORSALGIA, UNSPECIFIED 06/07/2019 CHARLY JOSE MD Ot R00. 2 PALPITATIONS 06/07/2019 CHARLY JOSE MD, Ot Z79. 4 CREATIVE SERVICES COORDINATOR (CURRENT) USE OF INSULIN 06/07/2019 CHARLY JOSE MD, Ot Z79.899 OTHER SKILLED NURSING (CURRENT) DRUG THERAPY 06/07/2019 CHARLY JOSE MD, Ot Z86.718 PERSONAL HISTORY OF OTHER VENOUS THROMBO 06/07/2019 CHARLY JOSE MD, Ot Z87.891 PERSONAL HISTORY OF NICOTINE DEPENDENCE 06/07/2019 CHARLY JOSE MD, Ot Z48.812 ENCNTR FOR SURGICAL AFTCR FOLLOWING SURG 06/07/2019 CHARLY JOSE MD, Ot Z95. 5 PRESENCE OF CORONARY ANGIOPLASTY IMPLANT 06/14/2019 Janiya CORDOVA MD Ot E11 .9 TYPE 2 DIABETES MELLITUS WITHOUT COMPLIC 06/14/2019 Janiya CORDOVA MD Ot E66.01 MORBID (SEVERE) OBESITY DUE TO EXCESS CA 06/14/2019 Janiya CORDOVA MD Ot E78 .5 HYPERLIPIDEMIA, UNSPECIFIED 06/14/2019 Janiya CORDOVA MD, Ot G47.33 OBSTRUCTIVE SLEEP APNEA (ADULT) (PEDIATR 06/14/2019 Janiya CORDOVA MD Ot I10 ESSENTIAL (PRIMARY) HYPERTENSION 06/14/2019 Janiya CORDOVA MD, Ot I25.1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 06/14/2019 Janiya CORDOVA MD Ot I48 .0 PAROXYSMAL ATRIAL FIBRILLATION 06/14/2019 Janiya CORDOVA MD, Ot Z68.41 BODY MASS INDEX (BMI) 40.0-44.9, ADULT 06/14/2019 Janiya CRODOVA MD, Ot Z79.01 SKILLED NURSING (CURRENT) USE OF ANTICOAGULANT 06/14/2019 Janiya CORDOVA MD, Ot Z79 .4 CREATIVE SERVICES COORDINATOR (CURRENT) USE OF INSULIN 06/14/2019 Janiya CORDOVA MD, Ot Z79.82 CREATIVE SERVICES COORDINATOR (CURRENT) USE OF ASPIRIN 06/14/2019 Janiya CORDOVA MD, Ot Z79.891 CREATIVE SERVICES COORDINATOR (CURRENT) USE OF OPIATE ANALGE 06/14/2019 Janiya CORDOVA MD, Ot Z79.899 OTHER SKILLED NURSING (CURRENT) DRUG THERAPY 06/14/2019 Janiya CORDOVA MD, Ot Z80 .0 FAMILY HISTORY OF MALIGNANT NEOPLASM OF 06/14/2019 Janiya CORDOVA MD, Ot Z82.49 FAMILY HX OF ISCHEM HEART DIS AND OTH DI 06/14/2019 Janiya CORDOVA MD, Ot Z83 .3 FAMILY HISTORY OF DIABETES MELLITUS 06/14/2019 Janiya CORDOVA MD, Ot Z87.891 PERSONAL HISTORY OF NICOTINE DEPENDENCE 06/14/2019 Janiya CORDOVA MD, Ot Z88 .8 ALLERGY STATUS TO [facility] DRUG/MEDS/BIOL SUB 06/14/2019 Janiya CORDOVA MD, Ot Z99.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 06/22/2019 CHARLY JOSE MD Ot I10 ESSENTIAL (PRIMARY) HYPERTENSION 06/22/2019 CHARLY JOSE MD, Ot I34. 0 NONRHEUMATIC MITRAL (VALVE) INSUFFICIENC 06/22/2019 CHARLY JOSE MD, Ot I47. 1 SUPRAVENTRICULAR TACHYCARDIA 06/22/2019 CHARLY JOSE MD, Ot I48. 0 PAROXYSMAL ATRIAL FIBRILLATION 06/22/2019 CHARLY JOSE MD, Ot I82.492 ACUTE EMBOLISM AND THROMBOSIS OF [place] 06/22/2019 CHARLY JOSE MD Ot R00. 2 PALPITATIONS 06/22/2019 DELIA TRIANA MD Ot R06.09 OTHER FORMS OF DYSPNEA 06/22/2019 TALYA VALVERDE Ot E78.2 MIXED HYPERLIPIDEMIA 06/22/2019 TALYA VALVERDE Ot I10 ESSENTIAL (PRIMARY) HYPERTENSION 06/22/2019 GERARD GRAJEDA, NATE Mitchell Ot M24.112 OTHER ARTICULAR CARTILAGE DISORDERS, LEF 06/22/2019 NATE GEE MD, Ot M25.812 OTHER SPECIFIED JOINT DISORDERS, LEFT SH 06/22/2019 NATE GEE MD Ot S46.012A STRAIN OF MUSC/TEND THE ROTATOR CUFF OF 06/22/2019 NATE GEE MD Ot S49.92XA UNSP INJURY OF LEFT SHOULDER AND UPPER A 06/22/2019 FRANKLIN SAMPSON APRN Ot R06.02 SHORTNESS OF BREATH 06/22/2019 FRANKLIN SAMPSON EDGE BURNISHER Ot Z86.718 PERSONAL HISTORY OF OTHER VENOUS THROMBO 06/22/2019 FRANKLIN SAMPSON EDGE BURNISHER Ot Z87.891 PERSONAL HISTORY OF NICOTINE DEPENDENCE 06/22/2019 FRANKLIN SAMPSON EDGE BURNISHER Ot R06.02 SHORTNESS OF BREATH 06/22/2019 FRANKLIN SAMPSON APRN Ot Z86.718 PERSONAL HISTORY OF OTHER VENOUS THROMBO 06/22/2019 FRANKLIN SAMPSON APRN Ot Z87.891 PERSONAL HISTORY OF NICOTINE DEPENDENCE 06/22/2019 JOSE DE JESUS GRAJEDA, GAVINO Carbajal Ot Z12.31 ENCNTR SCREEN MAMMOGRAM FOR MALIGNANT NE 06/22/2019 CHARLY JOSE MD Ot E11. 9 TYPE 2 DIABETES MELLITUS WITHOUT COMPLIC 06/22/2019 CHARLY JOSE MD Ot E78. 5 HYPERLIPIDEMIA, UNSPECIFIED 06/22/2019 CHARLY JOSE MD Ot F32. 9 MAJOR DEPRESSIVE DISORDER, SINGLE EPISOD 06/22/2019 CHARLY JOSE MD Ot G47. 10 HYPERSOMNIA, UNSPECIFIED 06/22/2019 CHARLY JOSE MD Ot G47. 33 OBSTRUCTIVE SLEEP APNEA (ADULT) (PEDIATR 06/22/2019 CHARLY JOSE MD Ot I10 ESSENTIAL (PRIMARY) HYPERTENSION 06/22/2019 CHARLY JOSE MD Ot I47. 1 SUPRAVENTRICULAR TACHYCARDIA 06/22/2019 CHARLY JOSE MD Ot I48. 0 PAROXYSMAL ATRIAL FIBRILLATION 06/22/2019 CHARLY JOSE MD Ot I73. 9 PERIPHERAL VASCULAR DISEASE, UNSPECIFIED 06/22/2019 CHARLY JOSE MD Ot J30. 2 OTHER SEASONAL ALLERGIC RHINITIS 06/22/2019 CHARLY JOSE MD Ot M54. 9 DORSALGIA, UNSPECIFIED 06/22/2019 CHARLY JOSE MD Ot R00. 2 PALPITATIONS 06/22/2019 CHARLY JOSE MD, Ot Z79. 4 CREATIVE SERVICES COORDINATOR (CURRENT) USE OF INSULIN 06/22/2019 CHARLY JOSE MD Ot Z79.899 OTHER SKILLED NURSING (CURRENT) DRUG THERAPY 06/22/2019 CHARLY JOSE MD, Ot Z86.718 PERSONAL HISTORY OF OTHER VENOUS THROMBO 06/22/2019 CHARLY JOSE MD, Ot Z87.891 PERSONAL HISTORY OF NICOTINE DEPENDENCE 06/22/2019 CHARLY JOSE MD, Ot Z48.812 ENCNTR FOR SURGICAL AFTCR FOLLOWING SURG 06/22/2019 CHARLY JOSE MD, Ot Z95. 5 PRESENCE OF CORONARY ANGIOPLASTY IMPLANT 06/22/2019 SIVAKUMAR CONTRERAS MD Ot E11. 40 TYPE 2 DIABETES MELLITUS WITH DIABETIC N 06/22/2019 SIVAKUMAR CONTRERAS MD Ot E66. 01 MORBID (SEVERE) OBESITY DUE TO EXCESS CA 06/22/2019 SIVAKUMAR CONTRERAS MD Ot E78. 00 PURE HYPERCHOLESTEROLEMIA, UNSPECIFIED 06/22/2019 SIVAKUMAR CONTRERAS MD Ot F32. 9 MAJOR DEPRESSIVE DISORDER, SINGLE EPISOD 06/22/2019 SIVAKUMAR CONTRERAS MD Ot F41. 9 ANXIETY DISORDER, UNSPECIFIED 06/22/2019 SIVAKUMAR CONTRERAS MD Ot G47. 30 SLEEP APNEA, UNSPECIFIED 06/22/2019 SIVAKUMAR CONTRERAS MD Ot I10 ESSENTIAL (PRIMARY) HYPERTENSION 06/22/2019 SIVAKUMAR CONTRERAS MD Ot I25. 1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 06/22/2019 SIVAKUMAR CONTRERAS MD Ot I25. 2 OLD MYOCARDIAL INFARCTION 06/22/2019 SIVAKUMAR CONTRERAS MD Ot I48. 91 UNSPECIFIED ATRIAL FIBRILLATION 06/22/2019 SIVAKUMAR CONTRERAS MD Ot J45.909 UNSPECIFIED ASTHMA, UNCOMPLICATED 06/22/2019 SIVAKUMAR CONTRERAS MD Ot K21. 9 GASTRO-ESOPHAGEAL REFLUX DISEASE WITHOUT 06/22/2019 SIVAKUMAR CONTRERAS MD Ot R07. 89 OTHER CHEST PAIN 06/22/2019 SIVAKUMAR CONTRERAS MD Ot Z79. 01 CREATIVE SERVICES COORDINATOR (CURRENT) USE OF ANTICOAGULANT 06/22/2019 SIVAKUMAR CONTRERAS MD Ot Z79. 4 SKILLED NURSING (CURRENT) USE OF INSULIN 06/22/2019 SIVAKUMAR CONTRERAS MD Ot Z79. 51 SKILLED NURSING (CURRENT) USE OF INHALED STERO 06/22/2019 SIVAKUMAR CONTRERAS MD, Ot Z79. 82 CREATIVE SERVICES COORDINATOR (CURRENT) USE OF ASPIRIN 06/22/2019 SIVAKUMAR CONTRERAS MD, Ot Z80. 0 FAMILY HISTORY OF MALIGNANT NEOPLASM OF 06/22/2019 SIVAKUMAR CONTRERAS MD, Ot Z82. 49 FAMILY HX OF ISCHEM HEART DIS AND OTH DI 06/22/2019 SIVAKUMAR CONTRERAS MD, Ot Z85. 42 PERSONAL HISTORY OF MALIGNANT NEOPLASM O 06/22/2019 SIVAKUMAR CONTRERAS MD, Ot Z86.718 PERSONAL HISTORY OF OTHER VENOUS THROMBO 06/22/2019 SIVAKUMAR CONTRERAS MD, Ot Z87.891 PERSONAL HISTORY OF NICOTINE DEPENDENCE 06/22/2019 SIVAKUMAR CONTRERAS MD, Ot Z88. 8 ALLERGY STATUS TO [facility] DRUG/MEDS/BIOL SUB 06/22/2019 SIVAKUMAR CONTRERAS MD Ot Z95. 5 PRESENCE OF CORONARY ANGIOPLASTY IMPLANT 06/22/2019 SIVAKUMAR CONTRERAS MD Ot Z99. 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 06/26/2019 SIVAKUMAR CONTRERAS MD Ot E11. 40 TYPE 2 DIABETES MELLITUS WITH DIABETIC N 06/26/2019 SIVAKUMAR CONTRERAS MD Ot E66. 01 MORBID (SEVERE) OBESITY DUE TO EXCESS CA 06/26/2019 SIVAKUMAR CONTRERAS MD Ot E78. 00 PURE HYPERCHOLESTEROLEMIA, UNSPECIFIED 06/26/2019 SIVAKUMAR CONTRERAS MD Ot F32. 9 MAJOR DEPRESSIVE DISORDER, SINGLE EPISOD 06/26/2019 SIVAKUMAR CONTRERAS MD Ot F41. 9 ANXIETY DISORDER, UNSPECIFIED 06/26/2019 SIVAKUMAR CONTRERAS MD Ot G47. 30 SLEEP APNEA, UNSPECIFIED 06/26/2019 SIVAKUMAR CONTRERAS MD Ot I10 ESSENTIAL (PRIMARY) HYPERTENSION 06/26/2019 SIVAKUMAR CONTRERAS MD Ot I25. 1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 06/26/2019 SIVAKUMAR CONTRERAS MD, Ot I25. 2 OLD MYOCARDIAL INFARCTION 06/26/2019 SIVAKUMAR CONTRERAS MD Ot I48. 91 UNSPECIFIED ATRIAL FIBRILLATION 06/26/2019 SIVAKUMAR CONTRERAS MD Ot J45.909 UNSPECIFIED ASTHMA, UNCOMPLICATED 06/26/2019 SIVAKUMAR CONTRERAS MD Ot K21. 9 GASTRO-ESOPHAGEAL REFLUX DISEASE WITHOUT 06/26/2019 SIVAKUMAR CONTRERAS MD, Ot R07. 89 OTHER CHEST PAIN 06/26/2019 SIVAKUMAR CONTRERAS MD, Ot Z79. 01 SKILLED NURSING (CURRENT) USE OF ANTICOAGULANT 06/26/2019 SIVAKUMAR CONTRERAS MD, Ot Z79. 4 SKILLED NURSING (CURRENT) USE OF INSULIN 06/26/2019 SIVAKUMAR CONTRERAS MD, Ot Z79. 51 CREATIVE SERVICES COORDINATOR (CURRENT) USE OF INHALED STERO 06/26/2019 SIVAKUMAR CONTRERAS MD, Ot Z79. 82 CREATIVE SERVICES COORDINATOR (CURRENT) USE OF ASPIRIN 06/26/2019 SIVAKUMAR CONTRERAS MD, Ot Z80. 0 FAMILY HISTORY OF MALIGNANT NEOPLASM OF 06/26/2019 SIVAKUMAR CONTRERAS MD, Ot Z82. 49 FAMILY HX OF ISCHEM HEART DIS AND OTH DI 06/26/2019 SIVAKUMAR CONTRERAS MD, Ot Z85. 42 PERSONAL HISTORY OF MALIGNANT NEOPLASM O 06/26/2019 SIAVKUMAR CONTRERAS MD, Ot Z86.718 PERSONAL HISTORY OF OTHER VENOUS THROMBO 06/26/2019 SIVAKUMAR CONTRERAS MD, Ot Z87.891 PERSONAL HISTORY OF NICOTINE DEPENDENCE 06/26/2019 SIVAKUMAR CONTRERAS MD, Ot Z88. 8 ALLERGY STATUS TO [facility] DRUG/MEDS/BIOL SUB 06/26/2019 SIVAKUMAR CONTRERAS MD, Ot Z95. 5 PRESENCE OF CORONARY ANGIOPLASTY IMPLANT 06/26/2019 SIVAKUMAR CONTRERAS MD, Ot Z99. 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 07/02/2019 Janiya CORDOVA MD Ot E11 .9 TYPE 2 DIABETES MELLITUS WITHOUT COMPLIC 07/02/2019 Janiya CORDOVA MD Ot E66.01 MORBID (SEVERE) OBESITY DUE TO EXCESS CA 07/02/2019 Janiya CORDOVA MD Ot E78 .5 HYPERLIPIDEMIA, UNSPECIFIED 07/02/2019 Janiya CORDOAV MD, Ot G47.33 OBSTRUCTIVE SLEEP APNEA (ADULT) (PEDIATR 07/02/2019 Janiya CORDOVA MD Ot I10 ESSENTIAL (PRIMARY) HYPERTENSION 07/02/2019 Janiya CORDOVA MD, Ot I25.1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 07/02/2019 Janiya CORDOVA MD, Ot I48 .0 PAROXYSMAL ATRIAL FIBRILLATION 07/02/2019 Janiya CORDOVA MD, Ot Z68.41 BODY MASS INDEX (BMI) 40.0-44.9, ADULT 07/02/2019 Janiya CORDOVA MD, Ot Z79.01 CREATIVE SERVICES COORDINATOR (CURRENT) USE OF ANTICOAGULANT 07/02/2019 Janiya CORDOVA MD, Ot Z79 .4 SKILLED NURSING (CURRENT) USE OF INSULIN 07/02/2019 Janiya CORDOVA MD, Ot Z79.82 SKILLED NURSING (CURRENT) USE OF ASPIRIN 07/02/2019 Janiya CORDOVA MD, Ot Z79.891 CREATIVE SERVICES COORDINATOR (CURRENT) USE OF OPIATE ANALGE 07/02/2019 Janiya CORDOVA MD, Ot Z79.899 OTHER CREATIVE SERVICES COORDINATOR (CURRENT) DRUG THERAPY 07/02/2019 Janiya CORDOVA MD, Ot Z80 .0 FAMILY HISTORY OF MALIGNANT NEOPLASM OF 07/02/2019 Janiya CORDOVA MD, Ot Z82.49 FAMILY HX OF ISCHEM HEART DIS AND OTH DI 07/02/2019 Janiya CORDOVA MD, Ot Z83 .3 FAMILY HISTORY OF DIABETES MELLITUS 07/02/2019 Janiya CORDOVA MD, Ot Z87.891 PERSONAL HISTORY OF NICOTINE DEPENDENCE 07/02/2019 Janiya CORDOVA MD, Ot Z88 .8 ALLERGY STATUS TO [facility] DRUG/MEDS/BIOL SUB 07/02/2019 Janiya CORDOVA MD, Ot Z99.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 07/09/2019 CHARLY JOSE MD Ot I10 ESSENTIAL (PRIMARY) HYPERTENSION 07/09/2019 CHARLY JOSE MD Ot I34. 0 NONRHEUMATIC MITRAL (VALVE) INSUFFICIENC 07/09/2019 CHARLY JOSE MD Ot I47. 1 SUPRAVENTRICULAR TACHYCARDIA 07/09/2019 CHARLY JOSE MD, Ot I48. 0 PAROXYSMAL ATRIAL FIBRILLATION 07/09/2019 CHARLY JOSE MD, Ot I82.492 ACUTE EMBOLISM AND THROMBOSIS OF [place] 07/09/2019 CHARLY JOSE MD Ot R00. 2 PALPITATIONS 07/09/2019 KAMILAH GRAJEDA, DELIA Boo Ot R06.09 OTHER FORMS OF DYSPNEA 07/09/2019 TALYA VALVERDE Ot E78.2 MIXED HYPERLIPIDEMIA 07/09/2019 TALYA VALVERDE Ot I10 ESSENTIAL (PRIMARY) HYPERTENSION 07/09/2019 NATE GEE MD, Ot M24.112 OTHER ARTICULAR CARTILAGE DISORDERS, LEF 07/09/2019 NATE GEE MD, Ot M25.812 OTHER SPECIFIED JOINT DISORDERS, LEFT SH 07/09/2019 NATE GEE MD Ot S46.012A STRAIN OF MUSC/TEND THE ROTATOR CUFF OF 07/09/2019 NATE GEE MD Ot S49.92XA UNSP INJURY OF LEFT SHOULDER AND UPPER A 07/09/2019 FRANKLIN SAMPSON APRN Ot R06.02 SHORTNESS OF BREATH 07/09/2019 FRANKLIN SAMPSON APRN Ot Z86.718 PERSONAL HISTORY OF OTHER VENOUS THROMBO 07/09/2019 FRANKLIN SAMPSON APRN Ot Z87.891 PERSONAL HISTORY OF NICOTINE DEPENDENCE 07/09/2019 FRANKLIN SAMPSON APRN Ot R06.02 SHORTNESS OF BREATH 07/09/2019 FRANKLIN SAMPSON APRN Ot Z86.718 PERSONAL HISTORY OF OTHER VENOUS THROMBO 07/09/2019 FRANKLIN SAMPSON APRN Ot Z87.891 PERSONAL HISTORY OF NICOTINE DEPENDENCE 07/09/2019 JOSE DE JESUS GRAJEDA, GAVINO Carbajal Ot Z12.31 ENCNTR SCREEN MAMMOGRAM FOR MALIGNANT NE 07/09/2019 CHARLY JOSE MD Ot E11. 9 TYPE 2 DIABETES MELLITUS WITHOUT COMPLIC 07/09/2019 CHARLY JOSE MD Ot E78. 5 HYPERLIPIDEMIA, UNSPECIFIED 07/09/2019 CHARLY JOSE MD Ot F32. 9 MAJOR DEPRESSIVE DISORDER, SINGLE EPISOD 07/09/2019 CHARLY JOSE MD Ot G47. 10 HYPERSOMNIA, UNSPECIFIED 07/09/2019 CHARLY JOSE MD Ot G47. 33 OBSTRUCTIVE SLEEP APNEA (ADULT) (PEDIATR 07/09/2019 CHARLY JOSE MD Ot I10 ESSENTIAL (PRIMARY) HYPERTENSION 07/09/2019 CHARLY JOSE MD Ot I47. 1 SUPRAVENTRICULAR TACHYCARDIA 07/09/2019 CHARLY JOSE MD Ot I48. 0 PAROXYSMAL ATRIAL FIBRILLATION 07/09/2019 CHARLY JOSE MD Ot I73. 9 PERIPHERAL VASCULAR DISEASE, UNSPECIFIED 07/09/2019 CHARLY JOSE MD, Ot J30. 2 OTHER SEASONAL ALLERGIC RHINITIS 07/09/2019 CHARLY JOSE MD, Ot M54. 9 DORSALGIA, UNSPECIFIED 07/09/2019 CHARLY JOSE MD Ot R00. 2 PALPITATIONS 07/09/2019 CHARLY JOSE MD Ot Z79. 4 SKILLED NURSING (CURRENT) USE OF INSULIN 07/09/2019 CHARLY JOSE MD Ot Z79.899 OTHER SKILLED NURSING (CURRENT) DRUG THERAPY 07/09/2019 CHARLY JOSE MD, Ot Z86.718 PERSONAL HISTORY OF OTHER VENOUS THROMBO 07/09/2019 CHARLY JOSE MD, Ot Z87.891 PERSONAL HISTORY OF NICOTINE DEPENDENCE 07/09/2019 CHARLY JOSE MD, Ot Z48.812 ENCNTR FOR SURGICAL AFTCR FOLLOWING SURG 07/09/2019 CHARLY JOSE MD Ot Z95. 5 PRESENCE OF CORONARY ANGIOPLASTY IMPLANT Procedures Code Description Performed By Per formed [place] [id number] DI LATION OF 1 COR ART WITH DRUG-ELUT INT 11/30/2018 [id number] ME ASURE OF CARDIAC SAMPL PRESSURE, L H 11/30/2018 [id number] FL UOROSCOPY OF MULT COR ART USING L OSM 11/30/2018 Results Test Result Range PT panel in platelet poor plasma by coag ulation assay - 12/30/15 16:15 Prothrombin time (PT) in platelet poor plasma by coagu lation assay 26.0 s 12.2-14.7 INR in platelet poor plasma or blood by coagulation as say 2.4 0.8-1.4 Bacteria identification in isolate by an aerobe culture - 01/13/16 11:15 Bacteria identification in isolate by anaerobe culture NOANA NRG Gram stain microscopy - 01/13/16 11:15 GRAM STAIN RESULT FEW WBC'S, NO BACTERIA OBSERVED NRG Bacteria identification in wound by cult ure - 01/13/16 11:15 Bacteria identification in wound by culture [id number] NRG FREE TEXT EXTERNAL SENSITIVITY REPORTED 01/18/16 10: 40 NRG QUANTITY OF GROWTH Scant Growth NRG Bacterial susceptibility panel - 6 11:15 Oxacillin susceptibility test by minimum inhibitory co ncentration >= NRG Gentamicin susceptibility test by minimum inhibitory c oncentration <= NRG Clindamycin susceptibility test by minimum inhibitory concentration <= NRG Erythromycin susceptibility test by minimum inhibitory concentration >= NRG Trimethoprim/sulfamethoxazole susceptibi lity test by minimum inhibitoryconcentration 160 NRG Vancomycin susceptibility test by minimum inhibitory c oncentration 1 NRG Levofloxacin susceptibility test by minimum inhibitory concentration <= NRG Rifampin susceptibility test by minimum inhibitory con centration <= NRG Tetracycline susceptibility test by minimum inhibitory concentration 2 NRG Erythrocyte sedimentation rate by wade gren method - 01/20/16 13:05 Erythrocyte sedimentation rate by westergren method 13 mm 0- 30 Complete urinalysis with reflex to cultu re - 01/29/16 16:00 Urine color determination YELLOW NRG Urine clarity determination SLIGHTLY CLOUDY NRG Urine pH measurement by test strip 7 5-9 Specific gravity of urine by test strip 1.010 1.016-1.022 Urine protein assay by test strip, semi-quantitative NEGATIVE NEGATIVE Urine glucose detection by automated test strip NE GATIVE NEGATIVE Erythrocytes detection in urine sediment by light micr oscopy NEGATIVE NEGATIVE Urine ketones detection by automated test strip NE GATIVE NEGATIVE Urine nitrite detection by test strip NEGATIVE NEGATIVE Urine total bilirubin detection by test strip 2+ NEGATIVE Urine urobilinogen measurement by automated test strip (mass/volume) NORMAL NORMAL Urine leukocyte esterase detection by dipstick 3+ NEGATIVE Automated urine sediment erythrocyte cou nt by microscopy (number/high power field) NONE NRG Automated urine sediment leukocyte count by microscopy (number/high power field) [HPF] NRG Bacteria detection in urine sediment by light microsco py FEW NRG Squamous epithelial cells detection in u rine sediment by light microscopy 0-2 NRG Crystals detection in urine sediment by light microsco py NONE NRG Casts detection in urine sediment by light microscopy NONE NRG Mucus detection in urine sediment by light microscopy NEGATIVE NRG Complete urinalysis with reflex to culture YES NRG PT panel in platelet poor plasma by coag ulation assay - 01/29/16 16:00 Prothrombin time (PT) in platelet poor plasma by coagu lation assay 30.3 s 12.2-14.7 INR in platelet poor plasma or blood by coagulation as say 2.9 0.8-1.4 Bacterial urine culture - 01/29/16 16:00 Bacterial urine culture [id number] NRG COLONY COUNT >100,000/ML NRG FTX;REPORTABLE SENSITIVITY REPORTED 01/29 16:05 [facility] Bacterial susceptibility panel - 6 16:00 Gentamicin susceptibility test by minimum inhibitory c oncentration <= NRG Trimethoprim/sulfamethoxazole susceptibi lity test by minimum inhibitoryconcentration >= NRG Ampicillin susceptibility test by minimum inhibitory c oncentration >= NRG Tobramycin susceptibility test by minimum inhibitory c oncentration <= NRG Cefazolin susceptibility test by minimum inhibitory co ncentration <= NRG Ceftriaxone susceptibility test by minimum inhibitory concentration <= NRG Ampicillin/sulbactam susceptibility test by minimum inhibitory concentration 16 NRG Piperacillin/tazobactam susceptibility t est by minimum inhibitory concentration <= NRG Ciprofloxacin susceptibility test by minimum inhibitor y concentration 0.5 NRG Meropenem susceptibility test by minimum inhibitory co ncentration <= NRG Nitrofurantoin susceptibility test by mi nimum inhibitory concentration <= NRG Aztreonam susceptibility test by minimum inhibitory co ncentration <= NRG Extended spectrum beta lactamase (ESBL) producing bacteria susceptibility test by minimum inhibitory concentration NEG NRG Bacteria identification in isolate by an aerobe culture - 02/03/16 12:18 Bacteria identification in isolate by anaerobe culture [facility] Gram stain microscopy - 02/03/16 12:18 GRAM STAIN RESULT NO BACTERIA [facility] Bacteria identification in wound by cult ure - 02/03/16 12:18 Bacteria identification in wound by culture NG [facility] PT panel in platelet poor plasma by coag ulation assay - 02/11/16 08:34 Prothrombin time (PT) in platelet poor plasma by coagu lation assay 19.4 s 12.2-14.7 INR in platelet poor plasma or blood by coagulation as say 1.7 0.8-1.4 Activated partial thromboplastin time (a PTT) in platelet poor plasma bycoagulation assay - 02/11/16 08:34 Activated partial thromboplastin time (a PTT) in platelet poor plasma bycoagulation assay 35 s 24-35 Comprehensive metabolic panel - 02/11/16 08:34 Serum or plasma sodium measurement (moles/volume) 142 mmol/L 135-145 Serum or plasma potassium measurement (moles/volume) 3.8 mmol/L 3.6-5.0 Serum or plasma chloride measurement (moles/volume) 109 mmol/L 98-107 Carbon dioxide 21 mmol/L 21-32 Serum or plasma anion gap determination (moles/volume) 12 mmol/L 5-14 Serum or plasma urea nitrogen measurement (mass/volume ) 22 mg/dL 7-18 Serum or plasma creatinine measurement (mass/volume) 0.80 mg/dL 0.60-1.30 Serum or plasma urea nitrogen/creatinine mass ratio 28 NRG Serum or plasma creatinine measurement w ith calculation of estimated glomerular filtration rate > NRG Serum or plasma glucose measurement (mass/volume) 130 mg/dL 70-105 Serum or plasma calcium measurement (mass/volume) 9.4 mg/dL 8.5-10.1 Serum or plasma total bilirubin measurement (mass/volu me) 0.5 mg/dL 0.1-1.0 Serum or plasma alkaline phosphatase dio surement (enzymatic activity/volume) 133 U/L 40-136 Serum or plasma aspartate aminotransfera se measurement (enzymatic activity/volume) 17 U/L 5-34 Serum or plasma alanine aminotransferase measurement (enzymatic activity/volume) 23 U/L 0-55 Serum or plasma protein measurement (mass/volume) 7.5 g/dL 6.4-8.2 Serum or plasma albumin measurement (mass/volume) 4.1 g/dL 3.2-4.5 Automated blood complete blood count (he mogram) panel - 02/11/16 08:34 Blood leukocytes automated count (number/volume) 10.4 10*3/uL 4.3-11.0 Blood erythrocytes automated count (number/volume) 5.06 10*6/uL 4.35-5.85 Venous blood hemoglobin measurement (mass/volume) 13.4 g/dL 11.5-16.0 Blood hematocrit (volume fraction) 41 % 35-52 Automated erythrocyte mean corpuscular volume 81 [ foz_us] 80-99 Automated erythrocyte mean corpuscular h emoglobin (mass per erythrocyte) 27 pg 25-34 Automated erythrocyte mean corpuscular h emoglobin concentration measurement (mass/volume) 33 g/dL 32-36 Automated erythrocyte distribution width ratio 16. 9 % 10.0- 14.5 Automated blood platelet count (count/volume) 315 10*3/uL 130-400 Automated blood platelet mean volume measurement 11.1 [foz_us] 7.4-10.4 Methicillin resistant Staphylococcus aur eus (MRSA) screening culture - 02/11/16 08:34 Methicillin resistant Staphylococcus aureus (MRSA) scr eening culture NEG NRG Bacteria identification in isolate by an aerobe culture - 02/17/16 12:15 Bacteria identification in isolate by anaerobe culture NG NRG Gram stain microscopy - 02/17/16 12:15 GRAM STAIN RESULT OBSERVED ON GRAM STAIN NRG Bacteria identification in wound by cult ure - 02/17/16 12:15 Bacteria identification in wound by culture [id number] NRG FREE [place] [address], 1 0-16 NRG QUANTITY OF GROWTH Scant Growth NRG Bacterial susceptibility panel - 6 12:15 Oxacillin susceptibility test by minimum inhibitory co ncentration S NRG Gentamicin susceptibility test by minimum inhibitory c oncentration <= NRG Clindamycin susceptibility test by minimum inhibitory concentration <= NRG Erythromycin susceptibility test by minimum inhibitory concentration >= NRG Trimethoprim/sulfamethoxazole susceptibi lity test by minimum inhibitoryconcentration <= NRG Vancomycin susceptibility test by minimum inhibitory c oncentration 1 NRG Levofloxacin susceptibility test by minimum inhibitory concentration 0.25 NRG Rifampin susceptibility test by minimum inhibitory con centration <= NRG Tetracycline susceptibility test by minimum inhibitory concentration <= NRG PT panel in platelet poor plasma by coag ulation assay - 02/20/16 13:50 Prothrombin time (PT) in platelet poor plasma by coagu lation assay 25.6 s 12.2-14.7 INR in platelet poor plasma or blood by coagulation as say 2.4 0.8-1.4 Bacteria identification in isolate by an aerobe culture - 03/16/16 09:45 Bacteria identification in isolate by anaerobe culture NG NRG Gram stain microscopy - 03/16/16 09:45 GRAM STAIN RESULT RARE WBC, NO BACTERIA NRG Bacteria identification in wound by cult ure - 03/16/16 09:45 Bacteria identification in wound by culture NG NRG Capillary blood glucose measurement by g lucometer (mass/volume) - 03/17/16 10:03 Capillary blood glucose measurement by glucometer (mas s/volume) 139 mg/dL 70-110 Capillary blood glucose measurement by g lucometer (mass/volume) - 03/17/16 12:47 Capillary blood glucose measurement by glucometer (mas s/volume) 115 mg/dL 70-110 Capillary blood glucose measurement by g lucometer (mass/volume) - 03/18/16 09:35 Capillary blood glucose measurement by glucometer (mas s/volume) 211 mg/dL 70-110 Capillary blood glucose measurement by g lucometer (mass/volume) - 03/19/16 09:34 Capillary blood glucose measurement by glucometer (mas s/volume) 143 mg/dL 70-110 Capillary blood glucose measurement by g lucometer (mass/volume) - 03/19/16 11:55 Capillary blood glucose measurement by glucometer (mas s/volume) 118 mg/dL 70-110 Capillary blood glucose measurement by g lucometer (mass/volume) - 03/22/16 09:41 Capillary blood glucose measurement by glucometer (mas s/volume) 165 mg/dL 70-110 Capillary blood glucose measurement by g lucometer (mass/volume) - 03/22/16 11:51 Capillary blood glucose measurement by glucometer (mas s/volume) 142 mg/dL 70-110 Capillary blood glucose measurement by g lucometer (mass/volume) - 03/23/16 10:03 Capillary blood glucose measurement by glucometer (mas s/volume) 146 mg/dL 70-110 Capillary blood glucose measurement by g lucometer (mass/volume) - 03/23/16 11:59 Capillary blood glucose measurement by glucometer (mas s/volume) 144 mg/dL 70-110 Capillary blood glucose measurement by g lucometer (mass/volume) - 03/24/16 09:48 Capillary blood glucose measurement by glucometer (mas s/volume) 206 mg/dL 70-110 Capillary blood glucose measurement by g lucometer (mass/volume) - 03/24/16 12:00 Capillary blood glucose measurement by glucometer (mas s/volume) 150 mg/dL 70-110 Capillary blood glucose measurement by g lucometer (mass/volume) - 03/25/16 10:18 Capillary blood glucose measurement by glucometer (mas s/volume) 150 mg/dL 70-110 Capillary blood glucose measurement by g lucometer (mass/volume) - 03/25/16 12:12 Capillary blood glucose measurement by glucometer (mas s/volume) 148 mg/dL 70-110 Capillary blood glucose measurement by g lucometer (mass/volume) - 03/26/16 10:53 Capillary blood glucose measurement by glucometer (mas s/volume) 139 mg/dL 70-110 Capillary blood glucose measurement by g lucometer (mass/volume) - 03/26/16 12:45 Capillary blood glucose measurement by glucometer (mas s/volume) 99 mg/dL 70-110 PT panel in platelet poor plasma by coag ulation assay - 03/26/16 19:40 Prothrombin time (PT) in platelet poor plasma by coagu lation assay 27.0 s 12.2-14.7 INR in platelet poor plasma or blood by coagulation as say 2.5 0.8-1.4 Capillary blood glucose measurement by g lucometer (mass/volume) - 03/29/16 09:54 Capillary blood glucose measurement by glucometer (mas s/volume) 158 mg/dL 70-110 Capillary blood glucose measurement by g lucometer (mass/volume) - 03/29/16 12:05 Capillary blood glucose measurement by glucometer (mas s/volume) 147 mg/dL 70-110 Capillary blood glucose measurement by g lucometer (mass/volume) - 03/30/16 10:22 Capillary blood glucose measurement by glucometer (mas s/volume) 131 mg/dL 70-110 Capillary blood glucose measurement by g lucometer (mass/volume) - 03/30/16 12:23 Capillary blood glucose measurement by glucometer (mas s/volume) 118 mg/dL 70-110 Capillary blood glucose measurement by g lucometer (mass/volume) - 03/31/16 09:57 Capillary blood glucose measurement by glucometer (mas s/volume) 172 mg/dL 70-110 Capillary blood glucose measurement by g lucometer (mass/volume) - 03/31/16 12:02 Capillary blood glucose measurement by glucometer (mas s/volume) 137 mg/dL 70-110 Capillary blood glucose measurement by g lucometer (mass/volume) - 04/02/16 10:22 Capillary blood glucose measurement by glucometer (mas s/volume) 137 mg/dL 70-110 Capillary blood glucose measurement by g lucometer (mass/volume) - 04/02/16 12:15 Capillary blood glucose measurement by glucometer (mas s/volume) 130 mg/dL 70-110 Capillary blood glucose measurement by g lucometer (mass/volume) - 04/05/16 10:10 Capillary blood glucose measurement by glucometer (mas s/volume) 176 mg/dL 70-110 Capillary blood glucose measurement by g lucometer (mass/volume) - 04/05/16 12:05 Capillary blood glucose measurement by glucometer (mas s/volume) 139 mg/dL 70-110 Capillary blood glucose measurement by g lucometer (mass/volume) - 04/06/16 10:06 Capillary blood glucose measurement by glucometer (mas s/volume) 178 mg/dL 70-110 Capillary blood glucose measurement by g lucometer (mass/volume) - 04/06/16 12:02 Capillary blood glucose measurement by glucometer (mas s/volume) 141 mg/dL 70-110 Capillary blood glucose measurement by g lucometer (mass/volume) - 04/12/16 09:34 Capillary blood glucose measurement by glucometer (mas s/volume) 184 mg/dL 70-110 Capillary blood glucose measurement by g lucometer (mass/volume) - 04/12/16 11:29 Capillary blood glucose measurement by glucometer (mas s/volume) 183 mg/dL 70-110 Capillary blood glucose measurement by g lucometer (mass/volume) - 04/13/16 11:05 Capillary blood glucose measurement by glucometer (mas s/volume) 180 mg/dL 70-110 Capillary blood glucose measurement by g lucometer (mass/volume) - 04/13/16 13:01 Capillary blood glucose measurement by glucometer (mas s/volume) 126 mg/dL 70-110 Capillary blood glucose measurement by g lucometer (mass/volume) - 04/14/16 09:49 Capillary blood glucose measurement by glucometer (mas s/volume) 188 mg/dL 70-110 Capillary blood glucose measurement by g lucometer (mass/volume) - 04/14/16 11:45 Capillary blood glucose measurement by glucometer (mas s/volume) 174 mg/dL 70-110 Capillary blood glucose measurement by g lucometer (mass/volume) - 04/15/16 10:07 Capillary blood glucose measurement by glucometer (mas s/volume) 187 mg/dL 70-110 Capillary blood glucose measurement by g lucometer (mass/volume) - 04/15/19 05:34 Capillary blood glucose measurement by glucometer (mas s/volume) 93 mg/dL 70-110 Capillary blood glucose measurement by g lucometer (mass/volume) - 04/16/16 10:12 Capillary blood glucose measurement by glucometer (mas s/volume) 200 mg/dL 70-110 Capillary blood glucose measurement by g lucometer (mass/volume) - 04/16/16 12:09 Capillary blood glucose measurement by glucometer (mas s/volume) 174 mg/dL 70-110 Capillary blood glucose measurement by g lucometer (mass/volume) - 04/19/16 10:10 Capillary blood glucose measurement by glucometer (mas s/volume) 183 mg/dL 70-110 Capillary blood glucose measurement by g lucometer (mass/volume) - 04/19/16 12:05 Capillary blood glucose measurement by glucometer (mas s/volume) 163 mg/dL 70-110 Capillary blood glucose measurement by g lucometer (mass/volume) - 04/20/16 10:21 Capillary blood glucose measurement by glucometer (mas s/volume) 159 mg/dL 70-110 Capillary blood glucose measurement by g lucometer (mass/volume) - 04/20/16 12:26 Capillary blood glucose measurement by glucometer (mas s/volume) 132 mg/dL 70-110 Capillary blood glucose measurement by g lucometer (mass/volume) - 04/22/16 09:55 Capillary blood glucose measurement by glucometer (mas s/volume) 195 mg/dL 70-110 Capillary blood glucose measurement by g lucometer (mass/volume) - 04/22/16 11:59 Capillary blood glucose measurement by glucometer (mas s/volume) 150 mg/dL 70-110 Capillary blood glucose measurement by g lucometer (mass/volume) - 04/23/16 10:00 Capillary blood glucose measurement by glucometer (mas s/volume) 205 mg/dL 70-110 Capillary blood glucose measurement by g lucometer (mass/volume) - 04/23/16 11:51 Capillary blood glucose measurement by glucometer (mas s/volume) 165 mg/dL 70-110 Capillary blood glucose measurement by g lucometer (mass/volume) - 04/26/16 10:06 Capillary blood glucose measurement by glucometer (mas s/volume) 202 mg/dL 70-110 Capillary blood glucose measurement by g lucometer (mass/volume) - 04/26/16 12:06 Capillary blood glucose measurement by glucometer (mas s/volume) 163 mg/dL 70-110 Capillary blood glucose measurement by g lucometer (mass/volume) - 04/27/16 10:10 Capillary blood glucose measurement by glucometer (mas s/volume) 171 mg/dL 70-110 Capillary blood glucose measurement by g lucometer (mass/volume) - 04/27/16 12:08 Capillary blood glucose measurement by glucometer (mas s/volume) 133 mg/dL 70-110 Capillary blood glucose measurement by g lucometer (mass/volume) - 04/28/16 10:09 Capillary blood glucose measurement by glucometer (mas s/volume) 175 mg/dL 70-110 Capillary blood glucose measurement by g lucometer (mass/volume) - 04/29/16 10:17 Capillary blood glucose measurement by glucometer (mas s/volume) 189 mg/dL 70-110 Capillary blood glucose measurement by g lucometer (mass/volume) - 04/29/16 12:33 Capillary blood glucose measurement by glucometer (mas s/volume) 143 mg/dL 70-110 Capillary blood glucose measurement by g lucometer (mass/volume) - 04/30/16 09:49 Capillary blood glucose measurement by glucometer (mas s/volume) 191 mg/dL 70-110 Capillary blood glucose measurement by g lucometer (mass/volume) - 04/30/16 11:47 Capillary blood glucose measurement by glucometer (mas s/volume) 145 mg/dL 70-110 Capillary blood glucose measurement by g lucometer (mass/volume) - 05/03/16 10:12 Capillary blood glucose measurement by glucometer (mas s/volume) 218 mg/dL 70-110 Capillary blood glucose measurement by g lucometer (mass/volume) - 05/03/16 12:05 Capillary blood glucose measurement by glucometer (mas s/volume) 169 mg/dL 70-110 Capillary blood glucose measurement by g lucometer (mass/volume) - 05/04/16 10:22 Capillary blood glucose measurement by glucometer (mas s/volume) 178 mg/dL 70-110 Capillary blood glucose measurement by g lucometer (mass/volume) - 05/04/16 12:17 Capillary blood glucose measurement by glucometer (mas s/volume) 156 mg/dL 70-110 Capillary blood glucose measurement by g lucometer (mass/volume) - 05/05/16 10:27 Capillary blood glucose measurement by glucometer (mas s/volume) 175 mg/dL 70-110 Capillary blood glucose measurement by g lucometer (mass/volume) - 05/05/16 12:22 Capillary blood glucose measurement by glucometer (mas s/volume) 116 mg/dL 70-110 Capillary blood glucose measurement by g lucometer (mass/volume) - 07/16/16 08:24 Capillary blood glucose measurement by glucometer (mas s/volume) 134 mg/dL 70-110 Complete urinalysis with reflex to cultu re - 08/09/16 13:45 Urine color determination YELLOW NRG Urine clarity determination SLIGHTLY CLOUDY NRG Urine pH measurement by test strip 7 5-9 Specific gravity of urine by test strip 1.010 1.016-1.022 Urine protein assay by test strip, semi-quantitative NEGATIVE NEGATIVE Urine glucose detection by automated test strip NE GATIVE NEGATIVE Erythrocytes detection in urine sediment by light micr oscopy 1+ NEGATIVE Urine ketones detection by automated test strip NE GATIVE NEGATIVE Urine nitrite detection by test strip POSITIVE NEGATIVE Urine total bilirubin detection by test strip 2+ NEGATIVE Urine urobilinogen measurement by automated test strip (mass/volume) NORMAL NORMAL Urine leukocyte esterase detection by dipstick 3+ NEGATIVE Automated urine sediment erythrocyte cou nt by microscopy (number/high power field) [HPF] NRG Automated urine sediment leukocyte count by microscopy (number/high power field) TNTC NRG Bacteria detection in urine sediment by light microsco py LARGE NRG Squamous epithelial cells detection in u rine sediment by light microscopy 5-10 NRG Crystals detection in urine sediment by light microsco py NONE NRG Casts detection in urine sediment by light microscopy NONE NRG Mucus detection in urine sediment by light microscopy NEGATIVE NRG Complete urinalysis with reflex to culture YES NRG Bacterial urine culture - 08/09/16 13:45 Bacterial urine culture FOOTNOTE NRG Methicillin resistant Staphylococcus aur eus (MRSA) screening culture - 08/09/16 13:45 Methicillin resistant Staphylococcus aureus (MRSA) scr eening culture NEG NRG PT panel in platelet poor plasma by coag ulation assay - 08/12/16 06:55 Prothrombin time (PT) in platelet poor plasma by coagu lation assay 14.6 s 12.2-14.7 INR in platelet poor plasma or blood by coagulation as say 1.2 0.8-1.4 Activated partial thromboplastin time (a PTT) in platelet poor plasma bycoagulation assay - 08/12/16 06:55 Activated partial thromboplastin time (a PTT) in platelet poor plasma bycoagulation assay 28 s 24-35 Complete blood count (CBC) with automate d white blood cell (WBC) differential - 08/12/16 06:55 Blood leukocytes automated count (number/volume) 10.9 10*3/uL 4.3-11.0 Blood erythrocytes automated count (number/volume) 4.87 10*6/uL 4.35-5.85 Venous blood hemoglobin measurement (mass/volume) 13.2 g/dL 11.5-16.0 Blood hematocrit (volume fraction) 41 % 35-52 Automated erythrocyte mean corpuscular volume 83 [ foz_us] 80-99 Automated erythrocyte mean corpuscular h emoglobin (mass per erythrocyte) 27 pg 25-34 Automated erythrocyte mean corpuscular h emoglobin concentration measurement (mass/volume) 33 g/dL 32-36 Automated erythrocyte distribution width ratio 15. 3 % 10.0- 14.5 Automated blood platelet count (count/volume) 299 10*3/uL 130-400 Automated blood platelet mean volume measurement 10.5 [foz_us] 7.4-10.4 Automated blood neutrophils/100 leukocytes 65 % 42-75 Automated blood lymphocytes/100 leukocytes 22 % 12-44 Blood monocytes/100 leukocytes 8 % 0-12 Automated blood eosinophils/100 leukocytes 5 % 0-10 Automated blood basophils/100 leukocytes 0 % 0-10 Blood neutrophils automated count (number/volume) 7.1 10*3 1.8-7.8 Blood lymphocytes automated count (number/volume) 2.4 10*3 1.0-4.0 Blood monocytes automated count (number/volume) 0. 8 10*3 0.0-1.0 Automated eosinophil count 0.5 10*3/uL 0 .0-0.3 Automated blood basophil count (count/volume) 0.0 10*3/uL 0.0-0.1 Whole blood basic metabolic panel - 07/16 06:55 Serum or plasma sodium measurement (moles/volume) 141 mmol/L 135-145 Serum or plasma potassium measurement (moles/volume) 4.6 mmol/L 3.6-5.0 Serum or plasma chloride measurement (moles/volume) 110 mmol/L 98-107 Carbon dioxide 23 mmol/L 21-32 Serum or plasma anion gap determination (moles/volume) 8 mmol/L 5-14 Serum or plasma urea nitrogen measurement (mass/volume ) 20 mg/dL 7-18 Serum or plasma creatinine measurement (mass/volume) 1.02 mg/dL 0.60-1.30 Serum or plasma urea nitrogen/creatinine mass ratio 20 NRG Serum or plasma creatinine measurement w ith calculation of estimated glomerular filtration rate 55 NRG Serum or plasma glucose measurement (mass/volume) 114 mg/dL 70-105 Serum or plasma calcium measurement (mass/volume) 9.3 mg/dL 8.5-10.1 Blood type T Indirect antibody screen pa cynthia - 08/12/16 06:55 ABO+Rh group OP NRG Transfusion band number [id number] NRG Blood group antibody screen NEGATIVE NR G Methicillin resistant Staphylococcus aur eus (MRSA) screening culture - 05/18/17 12:10 Methicillin resistant Staphylococcus aureus (MRSA) scr eening culture NEG NRG Capillary blood glucose measurement by g lucometer (mass/volume) - 05/25/17 06:58 Capillary blood glucose measurement by glucometer (mas s/volume) 141 mg/dL 70-110 PT panel in platelet poor plasma by coag ulation assay - 05/25/17 07:10 Prothrombin time (PT) in platelet poor plasma by coagu lation assay 13.2 s 12.2-14.7 INR in platelet poor plasma or blood by coagulation as say 1.0 0.8-1.4 Capillary blood glucose measurement by g lucometer (mass/volume) - 05/25/17 09:27 Capillary blood glucose measurement by glucometer (mas s/volume) 117 mg/dL 70-110 Complete blood count (CBC) with automate d white blood cell (WBC) differential - 01/18/18 10:55 Blood leukocytes automated count (number/volume) 6.7 10*3/uL 4.3-11.0 Blood erythrocytes automated count (number/volume) 4.75 10*6/uL 4.35-5.85 Venous blood hemoglobin measurement (mass/volume) 13.9 g/dL 11.5-16.0 Blood hematocrit (volume fraction) 42 % 35-52 Automated erythrocyte mean corpuscular volume 87 [ foz_us] 80-99 Automated erythrocyte mean corpuscular h emoglobin (mass per erythrocyte) 29 pg 25-34 Automated erythrocyte mean corpuscular h emoglobin concentration measurement (mass/volume) 34 g/dL 32-36 Automated erythrocyte distribution width ratio 15. 1 % 10.0- 14.5 Automated blood platelet count (count/volume) 294 10*3/uL 130-400 Automated blood platelet mean volume measurement 10.1 [foz_us] 7.4-10.4 Automated blood neutrophils/100 leukocytes 51 % 42-75 Automated blood lymphocytes/100 leukocytes 35 % 12-44 Blood monocytes/100 leukocytes 7 % 0-12 Automated blood eosinophils/100 leukocytes 7 % 0-10 Automated blood basophils/100 leukocytes 0 % 0-10 Blood neutrophils automated count (number/volume) 3.4 10*3 1.8-7.8 Blood lymphocytes automated count (number/volume) 2.3 10*3 1.0-4.0 Blood monocytes automated count (number/volume) 0. 5 10*3 0.0-1.0 Automated eosinophil count 0.5 10*3/uL 0 .0-0.3 Automated blood basophil count (count/volume) 0.0 10*3/uL 0.0-0.1 PT panel in platelet poor plasma by coag ulation assay - 01/18/18 10:55 Prothrombin time (PT) in platelet poor plasma by coagu lation assay 25.0 s 12.2-14.7 INR in platelet poor plasma or blood by coagulation as say 2.3 0.8-1.4 Activated partial thromboplastin time (a PTT) in platelet poor plasma bycoagulation assay - 01/18/18 10:55 Activated partial thromboplastin time (a PTT) in platelet poor plasma bycoagulation assay 36 s 24-35 Comprehensive metabolic panel - 01/18/18 10:55 Serum or plasma sodium measurement (moles/volume) 138 mmol/L 135-145 Serum or plasma potassium measurement (moles/volume) 4.4 mmol/L 3.6-5.0 Serum or plasma chloride measurement (moles/volume) 103 mmol/L 98-107 Carbon dioxide 24 mmol/L 21-32 Serum or plasma anion gap determination (moles/volume) 11 mmol/L 5-14 Serum or plasma urea nitrogen measurement (mass/volume ) 19 mg/dL 7-18 Serum or plasma creatinine measurement (mass/volume) 0.77 mg/dL 0.60-1.30 Serum or plasma urea nitrogen/creatinine mass ratio 25 NRG Serum or plasma creatinine measurement w ith calculation of estimated glomerular filtration rate > NRG Serum or plasma glucose measurement (mass/volume) 221 mg/dL 70-105 Serum or plasma calcium measurement (mass/volume) 9.4 mg/dL 8.5-10.1 Serum or plasma total bilirubin measurement (mass/volu me) 0.3 mg/dL 0.1-1.0 Serum or plasma alkaline phosphatase dio surement (enzymatic activity/volume) 179 U/L 40-136 Serum or plasma aspartate aminotransfera se measurement (enzymatic activity/volume) 17 U/L 5-34 Serum or plasma alanine aminotransferase measurement (enzymatic activity/volume) 28 U/L 0-55 Serum or plasma protein measurement (mass/volume) 7.1 g/dL 6.4-8.2 Serum or plasma albumin measurement (mass/volume) 3.7 g/dL 3.2-4.5 CALCIUM CORRECTED 9.6 mg/dL 8.5-10.1 Magnesium - 01/18/18 10:55 Magnesium 1.9 mg/dL 1.8-2.4 Serum or plasma troponin i.cardiac measu rement (mass/volume) - 01/18/18 10:55 Serum or plasma troponin i.cardiac measurement (mass/v olume) < ng/mL <0.30 Myoglobin, serum - 01/18/18 10:55 Myoglobin, serum 34.5 ng/mL 10.0-92.0 Serum or plasma lithium measurement (mol es/volume) - 01/18/18 10:55 BNP level 234.5 pg/mL <100.0 Arterial blood gas measurement - 8 16:25 Blood pCO2 38 mm[Hg] 35-45 Blood pO2 89 mm[Hg] 79-93 Arterial blood bicarbonate measurement (moles/volume) 26 mmol/L 23-27 Arterial blood base excess by calculation 1.7 mmol /L -2.5-2.5 Arterial blood oxygen saturation measurement 98 % 94-100 * Inhaled oxygen flow rate ROOM AIR NRG Arterial blood pH measurement with patient temperature correction 7.44 7.37-7.43 Arterial blood carbon dioxide, total measurement (mole s/volume) 26.9 mmol/L 21.0-31.0 Body site LEFT RADIAL NRG Assessment of wrist artery patency prior to arterial p uncture POSITIVE NRG Setting of ventilation mode NO NR G Measurement of body temperature 96.8 NRG Complete blood count (CBC) with automate d white blood cell (WBC) differential - 11/29/18 15:30 Blood leukocytes automated count (number/volume) 9.2 10*3/uL 4.3-11.0 Blood erythrocytes automated count (number/volume) 5.21 10*6/uL 4.35-5.85 Venous blood hemoglobin measurement (mass/volume) 15.2 g/dL 11.5-16.0 Blood hematocrit (volume fraction) 46 % 35-52 Automated erythrocyte mean corpuscular volume 88 [ foz_us] 80-99 Automated erythrocyte mean corpuscular h emoglobin (mass per erythrocyte) 29 pg 25-34 Automated erythrocyte mean corpuscular h emoglobin concentration measurement (mass/volume) 33 g/dL 32-36 Automated erythrocyte distribution width ratio 14. 7 % 10.0- 14.5 Automated blood platelet count (count/volume) 353 10*3/uL 130-400 Automated blood platelet mean volume measurement 9.7 [foz_us] 7.4-10.4 Automated blood neutrophils/100 leukocytes 54 % 42-75 Automated blood lymphocytes/100 leukocytes 33 % 12-44 Blood monocytes/100 leukocytes 8 % 0-12 Automated blood eosinophils/100 leukocytes 5 % 0-10 Automated blood basophils/100 leukocytes 0 % 0-10 Blood neutrophils automated count (number/volume) 4.9 10*3 1.8-7.8 Blood lymphocytes automated count (number/volume) 3.1 10*3 1.0-4.0 Blood monocytes automated count (number/volume) 0. 7 10*3 0.0-1.0 Automated eosinophil count 0.5 10*3/uL 0 .0-0.3 Automated blood basophil count (count/volume) 0.0 10*3/uL 0.0-0.1 PT panel in platelet poor plasma by coag ulation assay - 11/29/18 15:30 Prothrombin time (PT) in platelet poor plasma by coagu lation assay 13.6 s 12.2-14.7 INR in platelet poor plasma or blood by coagulation as say 1.0 0.8-1.4 Activated partial thromboplastin time (a PTT) in platelet poor plasma bycoagulation assay - 11/29/18 15:30 Activated partial thromboplastin time (a PTT) in platelet poor plasma bycoagulation assay 33 s 24-35 Comprehensive metabolic panel - 11/29/18 15:30 Serum or plasma sodium measurement (moles/volume) 139 mmol/L 135-145 Serum or plasma potassium measurement (moles/volume) 4.4 mmol/L 3.6-5.0 Serum or plasma chloride measurement (moles/volume) 100 mmol/L 98-107 Carbon dioxide 24 mmol/L 21-32 Serum or plasma anion gap determination (moles/volume) 15 mmol/L 5-14 Serum or plasma urea nitrogen measurement (mass/volume ) 16 mg/dL 7-18 Serum or plasma creatinine measurement (mass/volume) 0.87 mg/dL 0.60-1.30 Serum or plasma urea nitrogen/creatinine mass ratio 18 NRG Serum or plasma creatinine measurement w ith calculation of estimated glomerular filtration rate > NRG Serum or plasma glucose measurement (mass/volume) 221 mg/dL 70-105 Serum or plasma calcium measurement (mass/volume) 9.9 mg/dL 8.5-10.1 Serum or plasma total bilirubin measurement (mass/volu me) 0.2 mg/dL 0.1-1.0 Serum or plasma alkaline phosphatase dio surement (enzymatic activity/volume) 198 U/L 40-136 Serum or plasma aspartate aminotransfera se measurement (enzymatic activity/volume) 20 U/L 5-34 Serum or plasma alanine aminotransferase measurement (enzymatic activity/volume) 30 U/L 0-55 Serum or plasma protein measurement (mass/volume) 8.2 g/dL 6.4-8.2 Serum or plasma albumin measurement (mass/volume) 4.2 g/dL 3.2-4.5 CALCIUM CORRECTED 9.7 mg/dL 8.5-10.1 Magnesium - 11/29/18 15:30 Magnesium 2.0 mg/dL 1.8-2.4 Serum or plasma troponin i.cardiac measu rement (mass/volume) - 11/29/18 15:30 Serum or plasma troponin i.cardiac measurement (mass/v olume) 0.052 ng/mL <0.028 Myoglobin, serum - 11/29/18 15:30 Myoglobin, serum 39.4 ng/mL 10.0-92.0 Serum or plasma lithium measurement (mol es/volume) - 11/29/18 15:30 BNP PT 350.0 pg/mL <100.0 Capillary blood glucose measurement by g lucometer (mass/volume) - 11/29/18 21:33 Capillary blood glucose measurement by glucometer (mas s/volume) 158 mg/dL 70-110 Serum or plasma troponin i.cardiac measu rement (mass/volume) - 11/29/18 21:42 Serum or plasma troponin i.cardiac measurement (mass/v olume) 0.044 ng/mL <0.028 Complete blood count (CBC) with automate d white blood cell (WBC) differential - 11/30/18 02:55 Blood leukocytes automated count (number/volume) 8.3 10*3/uL 4.3-11.0 Blood erythrocytes automated count (number/volume) 4.51 10*6/uL 4.35-5.85 Venous blood hemoglobin measurement (mass/volume) 13.3 g/dL 11.5-16.0 Blood hematocrit (volume fraction) 40 % 35-52 Automated erythrocyte mean corpuscular volume 90 [ foz_us] 80-99 Automated erythrocyte mean corpuscular h emoglobin (mass per erythrocyte) 30 pg 25-34 Automated erythrocyte mean corpuscular h emoglobin concentration measurement (mass/volume) 33 g/dL 32-36 Automated erythrocyte distribution width ratio 14. 9 % 10.0- 14.5 Automated blood platelet count (count/volume) 301 10*3/uL 130-400 Automated blood platelet mean volume measurement 9.9 [foz_us] 7.4-10.4 Automated blood neutrophils/100 leukocytes 48 % 42-75 Automated blood lymphocytes/100 leukocytes 36 % 12-44 Blood monocytes/100 leukocytes 9 % 0-12 Automated blood eosinophils/100 leukocytes 7 % 0-10 Automated blood basophils/100 leukocytes 0 % 0-10 Blood neutrophils automated count (number/volume) 4.0 10*3 1.8-7.8 Blood lymphocytes automated count (number/volume) 3.0 10*3 1.0-4.0 Blood monocytes automated count (number/volume) 0. 7 10*3 0.0-1.0 Automated eosinophil count 0.6 10*3/uL 0 .0-0.3 Automated blood basophil count (count/volume) 0.0 10*3/uL 0.0-0.1 Comprehensive metabolic panel - 11/30/18 02:55 Serum or plasma sodium measurement (moles/volume) 139 mmol/L 135-145 Serum or plasma potassium measurement (moles/volume) 4.2 mmol/L 3.6-5.0 Serum or plasma chloride measurement (moles/volume) 102 mmol/L 98-107 Carbon dioxide 26 mmol/L 21-32 Serum or plasma anion gap determination (moles/volume) 11 mmol/L 5-14 Serum or plasma urea nitrogen measurement (mass/volume ) 16 mg/dL 7-18 Serum or plasma creatinine measurement (mass/volume) 0.73 mg/dL 0.60-1.30 Serum or plasma urea nitrogen/creatinine mass ratio 22 NRG Serum or plasma creatinine measurement w ith calculation of estimated glomerular filtration rate > NRG Serum or plasma glucose measurement (mass/volume) 103 mg/dL 70-105 Serum or plasma calcium measurement (mass/volume) 9.4 mg/dL 8.5-10.1 Serum or plasma total bilirubin measurement (mass/volu me) 0.2 mg/dL 0.1-1.0 Serum or plasma alkaline phosphatase dio surement (enzymatic activity/volume) 173 U/L 40-136 Serum or plasma aspartate aminotransfera se measurement (enzymatic activity/volume) 18 U/L 5-34 Serum or plasma alanine aminotransferase measurement (enzymatic activity/volume) 27 U/L 0-55 Serum or plasma protein measurement (mass/volume) 7.0 g/dL 6.4-8.2 Serum or plasma albumin measurement (mass/volume) 3.7 g/dL 3.2-4.5 CALCIUM CORRECTED 9.6 mg/dL 8.5-10.1 Serum or plasma troponin i.cardiac measu rement (mass/volume) - 11/30/18 02:55 Serum or plasma troponin i.cardiac measurement (mass/v olume) < ng/mL <0.028 Lipid 1996 panel - 11/30/18 02:55 Serum or plasma triglyceride measurement (mass/volume) 72 mg/dL <150 Serum or plasma cholesterol measurement (mass/volume) 159 mg/dL < 200 Serum or plasma cholesterol in HDL measurement (mass/v olume) 72 mg/dL 40-60 Cholesterol in LDL [mass/volume] in serum or plasma by direct assay 74 mg/dL 1-129 Serum or plasma cholesterol in VLDL measurement (mass/ volume) 14 mg/dL 5-40 Capillary blood glucose measurement by g lucometer (mass/volume) - 07/18/19 11:27 Capillary blood glucose measurement by glucometer (mas s/volume) 103 mg/dL 70-110 Capillary blood glucose measurement by g lucometer (mass/volume) - 11/30/18 15:45 Capillary blood glucose measurement by glucometer (mas s/volume) 97 mg/dL 70-110 Capillary blood glucose measurement by g lucometer (mass/volume) - 11/30/18 21:15 Capillary blood glucose measurement by glucometer (mas s/volume) 247 mg/dL 70-110 Automated blood complete blood count (he mogram) panel - 12/01/18 03:26 Blood leukocytes automated count (number/volume) 8.4 10*3/uL 4.3-11.0 Blood erythrocytes automated count (number/volume) 4.39 10*6/uL 4.35-5.85 Venous blood hemoglobin measurement (mass/volume) 13.0 g/dL 11.5-16.0 Blood hematocrit (volume fraction) 39 % 35-52 Automated erythrocyte mean corpuscular volume 90 [ foz_us] 80-99 Automated erythrocyte mean corpuscular h emoglobin (mass per erythrocyte) 30 pg 25-34 Automated erythrocyte mean corpuscular h emoglobin concentration measurement (mass/volume) 33 g/dL 32-36 Automated erythrocyte distribution width ratio 14. 6 % 10.0- 14.5 Automated blood platelet count (count/volume) 279 10*3/uL 130-400 Automated blood platelet mean volume measurement 10.2 [foz_us] 7.4-10.4 Whole blood basic metabolic panel - 11/13 02/01 03:26 Serum or plasma sodium measurement (moles/volume) 141 mmol/L 135-145 Serum or plasma potassium measurement (moles/volume) 4.2 mmol/L 3.6-5.0 Serum or plasma chloride measurement (moles/volume) 106 mmol/L 98-107 Carbon dioxide 24 mmol/L 21-32 Serum or plasma anion gap determination (moles/volume) 11 mmol/L 5-14 Serum or plasma urea nitrogen measurement (mass/volume ) 14 mg/dL 7-18 Serum or plasma creatinine measurement (mass/volume) 0.66 mg/dL 0.60-1.30 Serum or plasma urea nitrogen/creatinine mass ratio 21 NRG Serum or plasma creatinine measurement w ith calculation of estimated glomerular filtration rate > NRG Serum or plasma glucose measurement (mass/volume) 128 mg/dL 70-105 Serum or plasma calcium measurement (mass/volume) 9.3 mg/dL 8.5-10.1 Capillary blood glucose measurement by g lucometer (mass/volume) - 12/01/18 09:18 Capillary blood glucose measurement by glucometer (mas s/volume) 119 mg/dL 70-110 Capillary blood glucose measurement by g lucometer (mass/volume) - 12/01/18 11:17 Capillary blood glucose measurement by glucometer (mas s/volume) 264 mg/dL 70-110 Complete urinalysis with reflex to cultu re - 12/01/18 11:57 Urine color determination YELLOW NRG Urine clarity determination CLEAR NR G Urine pH measurement by test strip 5 5-9 Specific gravity of urine by test strip 1.025 1.016-1.022 Urine protein assay by test strip, semi-quantitative 2+ NEGATIVE Urine glucose detection by automated test strip 3+ NEGATIVE Erythrocytes detection in urine sediment by light micr oscopy 3+ NEGATIVE Urine ketones detection by automated test strip 1+ NEGATIVE Urine nitrite detection by test strip NEGATIVE NEGATIVE Urine total bilirubin detection by test strip 1+ NEGATIVE Urine urobilinogen measurement by automated test strip (mass/volume) NORMAL NORMAL Urine leukocyte esterase detection by dipstick 3+ NEGATIVE Automated urine sediment erythrocyte cou nt by microscopy (number/high power field) [HPF] NRG Automated urine sediment leukocyte count by microscopy (number/high power field) > [HPF] NRG Bacteria detection in urine sediment by light microsco py MODERATE NRG Squamous epithelial cells detection in u rine sediment by light microscopy 5-10 NRG Crystals detection in urine sediment by light microsco py NONE NRG Casts detection in urine sediment by light microscopy NONE NRG Mucus detection in urine sediment by light microscopy NEGATIVE NRG Complete urinalysis with reflex to culture YES NRG Bacterial urine culture - 12/01/18 11:57 Bacterial urine culture [id number] NRG COLONY COUNT >100,000/ML NRG FTX;REPORTABLE ID/SUSCEPTIBILITY REPORTED 12/04/18 11:00 NRG FREE TEXT ENTRY 2 RML REPORTED ID 12/03 16:05 NRG Dirithromycin susceptibility test by dis k diffusion - 12/01/18 11:57 Gentamicin susceptibility test by minimum inhibitory c oncentration <= NRG Levofloxacin susceptibility test by minimum inhibitory concentration <= NRG Tobramycin susceptibility test by minimum inhibitory c oncentration <= NRG Piperacillin/tazobactam susceptibility t est by minimum inhibitory concentration = NRG Ciprofloxacin susceptibility test by minimum inhibitor y concentration <= NRG Meropenem susceptibility test by minimum inhibitory co ncentration <= NRG Aztreonam susceptibility test by minimum inhibitory co ncentration 8 NRG Cefepime susceptibility test by minimum inhibitory con centration 4 NRG Imipenem susceptibility test by minimum inhibitory con centration 1 NRG Ceftazidime susceptibility test by minimum inhibitory concentration <= NRG Dirithromycin susceptibility test by dis k diffusion - 12/01/18 11:57 Gentamicin susceptibility test by minimum inhibitory c oncentration <= NRG Levofloxacin susceptibility test by minimum inhibitory concentration 2 NRG Tobramycin susceptibility test by minimum inhibitory c oncentration <= NRG Piperacillin/tazobactam susceptibility t est by minimum inhibitory concentration = NRG Ciprofloxacin susceptibility test by minimum inhibitor y concentration 1 NRG Meropenem susceptibility test by minimum inhibitory co ncentration 0.5 NRG Aztreonam susceptibility test by minimum inhibitory co ncentration 16 NRG Cefepime susceptibility test by minimum inhibitory con centration 4 NRG Imipenem susceptibility test by minimum inhibitory con centration 1 NRG Ceftazidime susceptibility test by minimum inhibitory concentration 4 NRG Complete blood count (CBC) with automate d white blood cell (WBC) differential - 12/20/18 21:50 Blood leukocytes automated count (number/volume) 7.7 10*3/uL 4.3-11.0 Blood erythrocytes automated count (number/volume) 4.58 10*6/uL 4.35-5.85 Venous blood hemoglobin measurement (mass/volume) 13.7 g/dL 11.5-16.0 Blood hematocrit (volume fraction) 40 % 35-52 Automated erythrocyte mean corpuscular volume 88 [ foz_us] 80-99 Automated erythrocyte mean corpuscular h emoglobin (mass per erythrocyte) 30 pg 25-34 Automated erythrocyte mean corpuscular h emoglobin concentration measurement (mass/volume) 34 g/dL 32-36 Automated erythrocyte distribution width ratio 14. 3 % 10.0- 14.5 Automated blood platelet count (count/volume) 315 10*3/uL 130-400 Automated blood platelet mean volume measurement 10.1 [foz_us] 7.4-10.4 Automated blood neutrophils/100 leukocytes 53 % 42-75 Automated blood lymphocytes/100 leukocytes 34 % 12-44 Blood monocytes/100 leukocytes 8 % 0-12 Automated blood eosinophils/100 leukocytes 4 % 0-10 Automated blood basophils/100 leukocytes 0 % 0-10 Blood neutrophils automated count (number/volume) 4.1 10*3 1.8-7.8 Blood lymphocytes automated count (number/volume) 2.7 10*3 1.0-4.0 Blood monocytes automated count (number/volume) 0. 6 10*3 0.0-1.0 Automated eosinophil count 0.3 10*3/uL 0 .0-0.3 Automated blood basophil count (count/volume) 0.0 10*3/uL 0.0-0.1 PT panel in platelet poor plasma by coag ulation assay - 12/20/18 21:50 Prothrombin time (PT) in platelet poor plasma by coagu lation assay 14.4 s 12.2-14.7 INR in platelet poor plasma or blood by coagulation as say 1.1 0.8-1.4 Activated partial thromboplastin time (a PTT) in platelet poor plasma bycoagulation assay - 12/20/18 21:50 Activated partial thromboplastin time (a PTT) in platelet poor plasma bycoagulation assay 31 s 24-35 Comprehensive metabolic panel - 12/20/18 21:50 Serum or plasma sodium measurement (moles/volume) 141 mmol/L 135-145 Serum or plasma potassium measurement (moles/volume) 4.0 mmol/L 3.6-5.0 Serum or plasma chloride measurement (moles/volume) 107 mmol/L 98-107 Carbon dioxide 20 mmol/L 21-32 Serum or plasma anion gap determination (moles/volume) 14 mmol/L 5-14 Serum or plasma urea nitrogen measurement (mass/volume ) 17 mg/dL 7-18 Serum or plasma creatinine measurement (mass/volume) 0.77 mg/dL 0.60-1.30 Serum or plasma urea nitrogen/creatinine mass ratio 22 NRG Serum or plasma creatinine measurement w ith calculation of estimated glomerular filtration rate > NRG Serum or plasma glucose measurement (mass/volume) 115 mg/dL 70-105 Serum or plasma calcium measurement (mass/volume) 9.0 mg/dL 8.5-10.1 Serum or plasma total bilirubin measurement (mass/volu me) 0.1 mg/dL 0.1-1.0 Serum or plasma alkaline phosphatase dio surement (enzymatic activity/volume) 186 U/L 40-136 Serum or plasma aspartate aminotransfera se measurement (enzymatic activity/volume) 21 U/L 5-34 Serum or plasma alanine aminotransferase measurement (enzymatic activity/volume) 33 U/L 0-55 Serum or plasma protein measurement (mass/volume) 7.2 g/dL 6.4-8.2 Serum or plasma albumin measurement (mass/volume) 3.6 g/dL 3.2-4.5 CALCIUM CORRECTED 9.3 mg/dL 8.5-10.1 Magnesium - 12/20/18 21:50 Magnesium 1.7 mg/dL 1.8-2.4 Serum or plasma troponin i.cardiac measu rement (mass/volume) - 12/20/18 21:50 Serum or plasma troponin i.cardiac measurement (mass/v olume) < ng/mL <0.028 Myoglobin, serum - 12/20/18 21:50 Myoglobin, serum 21.0 ng/mL 10.0-92.0 Serum or plasma lithium measurement (mol es/volume) - 12/20/18 21:50 BNP PT 51.7 pg/mL <100.0 PT panel in platelet poor plasma by coag ulation assay - 12/21/18 01:00 Prothrombin time (PT) in platelet poor plasma by coagu lation assay 14.4 s 12.2-14.7 INR in platelet poor plasma or blood by coagulation as say 1.1 0.8-1.4 Activated partial thromboplastin time (a PTT) in platelet poor plasma bycoagulation assay - 12/21/18 01:00 Activated partial thromboplastin time (a PTT) in platelet poor plasma bycoagulation assay 33 s 24-35 Serum or plasma troponin i.cardiac measu rement (mass/volume) - 12/21/18 01:00 Serum or plasma troponin i.cardiac measurement (mass/v olume) < ng/mL <0.028 Myoglobin, serum - 12/21/18 01:00 Myoglobin, serum 23.2 ng/mL 10.0-92.0 Complete blood count (CBC) with automate d white blood cell (WBC) differential - 12/21/18 06:55 Blood leukocytes automated count (number/volume) 8.4 10*3/uL 4.3-11.0 Blood erythrocytes automated count (number/volume) 4.48 10*6/uL 4.35-5.85 Venous blood hemoglobin measurement (mass/volume) 13.3 g/dL 11.5-16.0 Blood hematocrit (volume fraction) 40 % 35-52 Automated erythrocyte mean corpuscular volume 88 [ foz_us] 80-99 Automated erythrocyte mean corpuscular h emoglobin (mass per erythrocyte) 30 pg 25-34 Automated erythrocyte mean corpuscular h emoglobin concentration measurement (mass/volume) 34 g/dL 32-36 Automated erythrocyte distribution width ratio 14. 4 % 10.0- 14.5 Automated blood platelet count (count/volume) 295 10*3/uL 130-400 Automated blood platelet mean volume measurement 10.2 [foz_us] 7.4-10.4 Automated blood neutrophils/100 leukocytes 55 % 42-75 Automated blood lymphocytes/100 leukocytes 31 % 12-44 Blood monocytes/100 leukocytes 8 % 0-12 Automated blood eosinophils/100 leukocytes 6 % 0-10 Automated blood basophils/100 leukocytes 0 % 0-10 Blood neutrophils automated count (number/volume) 4.6 10*3 1.8-7.8 Blood lymphocytes automated count (number/volume) 2.6 10*3 1.0-4.0 Blood monocytes automated count (number/volume) 0. 7 10*3 0.0-1.0 Automated eosinophil count 0.5 10*3/uL 0 .0-0.3 Automated blood basophil count (count/volume) 0.0 10*3/uL 0.0-0.1 Comprehensive metabolic panel - 12/21/18 06:55 Serum or plasma sodium measurement (moles/volume) 142 mmol/L 135-145 Serum or plasma potassium measurement (moles/volume) 4.3 mmol/L 3.6-5.0 Serum or plasma chloride measurement (moles/volume) 105 mmol/L 98-107 Carbon dioxide 24 mmol/L 21-32 Serum or plasma anion gap determination (moles/volume) 13 mmol/L 5-14 Serum or plasma urea nitrogen measurement (mass/volume ) 19 mg/dL 7-18 Serum or plasma creatinine measurement (mass/volume) 0.71 mg/dL 0.60-1.30 Serum or plasma urea nitrogen/creatinine mass ratio 27 NRG Serum or plasma creatinine measurement w ith calculation of estimated glomerular filtration rate > NRG Serum or plasma glucose measurement (mass/volume) 123 mg/dL 70-105 Serum or plasma calcium measurement (mass/volume) 9.7 mg/dL 8.5-10.1 Serum or plasma total bilirubin measurement (mass/volu me) 0.2 mg/dL 0.1-1.0 Serum or plasma alkaline phosphatase dio surement (enzymatic activity/volume) 194 U/L 40-136 Serum or plasma aspartate aminotransfera se measurement (enzymatic activity/volume) 21 U/L 5-34 Serum or plasma alanine aminotransferase measurement (enzymatic activity/volume) 33 U/L 0-55 Serum or plasma protein measurement (mass/volume) 7.5 g/dL 6.4-8.2 Serum or plasma albumin measurement (mass/volume) 3.8 g/dL 3.2-4.5 CALCIUM CORRECTED 9.9 mg/dL 8.5-10.1 Serum or plasma troponin i.cardiac measu rement (mass/volume) - 12/21/18 06:55 Serum or plasma troponin i.cardiac measurement (mass/v olume) < ng/mL <0.028 Lipid 1996 panel - 12/21/18 06:55 Serum or plasma triglyceride measurement (mass/volume) 65 mg/dL <150 Serum or plasma cholesterol measurement (mass/volume) 137 mg/dL < 200 Serum or plasma cholesterol in HDL measurement (mass/v olume) 58 mg/dL 40-60 Cholesterol in LDL [mass/volume] in serum or plasma by direct assay 59 mg/dL 1-129 Serum or plasma cholesterol in VLDL measurement (mass/ volume) 13 mg/dL 5-40 Complete blood count (CBC) with automate d white blood cell (WBC) differential - 12/30/18 22:24 Blood leukocytes automated count (number/volume) 7.6 10*3/uL 4.3-11.0 Blood erythrocytes automated count (number/volume) 4.41 10*6/uL 4.35-5.85 Venous blood hemoglobin measurement (mass/volume) 13.0 g/dL 11.5-16.0 Blood hematocrit (volume fraction) 39 % 35-52 Automated erythrocyte mean corpuscular volume 88 [ foz_us] 80-99 Automated erythrocyte mean corpuscular h emoglobin (mass per erythrocyte) 30 pg 25-34 Automated erythrocyte mean corpuscular h emoglobin concentration measurement (mass/volume) 34 g/dL 32-36 Automated erythrocyte distribution width ratio 14. 2 % 10.0- 14.5 Automated blood platelet count (count/volume) 291 10*3/uL 130-400 Automated blood platelet mean volume measurement 10.1 [foz_us] 7.4-10.4 Automated blood neutrophils/100 leukocytes 46 % 42-75 Automated blood lymphocytes/100 leukocytes 40 % 12-44 Blood monocytes/100 leukocytes 9 % 0-12 Automated blood eosinophils/100 leukocytes 5 % 0-10 Automated blood basophils/100 leukocytes 0 % 0-10 Blood neutrophils automated count (number/volume) 3.5 10*3 1.8-7.8 Blood lymphocytes automated count (number/volume) 3.0 10*3 1.0-4.0 Blood monocytes automated count (number/volume) 0. 7 10*3 0.0-1.0 Automated eosinophil count 0.4 10*3/uL 0 .0-0.3 Automated blood basophil count (count/volume) 0.0 10*3/uL 0.0-0.1 PT panel in platelet poor plasma by coag ulation assay - 12/30/18 22:24 Prothrombin time (PT) in platelet poor plasma by coagu lation assay 15.3 s 12.2-14.7 INR in platelet poor plasma or blood by coagulation as say 1.2 0.8-1.4 Activated partial thromboplastin time (a PTT) in platelet poor plasma bycoagulation assay - 12/30/18 22:24 Activated partial thromboplastin time (a PTT) in platelet poor plasma bycoagulation assay 32 s 24-35 Comprehensive metabolic panel - 12/30/18 22:24 Serum or plasma sodium measurement (moles/volume) 141 mmol/L 135-145 Serum or plasma potassium measurement (moles/volume) 3.9 mmol/L 3.6-5.0 Serum or plasma chloride measurement (moles/volume) 105 mmol/L 98-107 Carbon dioxide 20 mmol/L 21-32 Serum or plasma anion gap determination (moles/volume) 16 mmol/L 5-14 Serum or plasma urea nitrogen measurement (mass/volume ) 15 mg/dL 7-18 Serum or plasma creatinine measurement (mass/volume) 0.73 mg/dL 0.60-1.30 Serum or plasma urea nitrogen/creatinine mass ratio 21 NRG Serum or plasma creatinine measurement w ith calculation of estimated glomerular filtration rate > NRG Serum or plasma glucose measurement (mass/volume) 92 mg/dL 70-105 Serum or plasma calcium measurement (mass/volume) 9.3 mg/dL 8.5-10.1 Serum or plasma total bilirubin measurement (mass/volu me) 0.2 mg/dL 0.1-1.0 Serum or plasma alkaline phosphatase dio surement (enzymatic activity/volume) 190 U/L 40-136 Serum or plasma aspartate aminotransfera se measurement (enzymatic activity/volume) 24 U/L 5-34 Serum or plasma alanine aminotransferase measurement (enzymatic activity/volume) 34 U/L 0-55 Serum or plasma protein measurement (mass/volume) 7.4 g/dL 6.4-8.2 Serum or plasma albumin measurement (mass/volume) 3.7 g/dL 3.2-4.5 CALCIUM CORRECTED 9.5 mg/dL 8.5-10.1 Magnesium - 12/30/18 22:24 Magnesium 1.7 mg/dL 1.6-2.4 Serum or plasma creatine kinase measurem ent (enzymatic activity/volume) - 12/30/18 22:24 Serum or plasma creatine kinase measurem ent (enzymatic activity/volume) 80 U/L 29-168 Serum or plasma creatine kinase MB measu rement (enzymatic activity/volume) - 12/30/18 22:24 Serum or plasma creatine kinase MB measu rement (enzymatic activity/volume) 0.9 ng/mL <6.6 Serum or plasma troponin i.cardiac measu rement (mass/volume) - 12/30/18 22:24 Serum or plasma troponin i.cardiac measurement (mass/v olume) < ng/mL <0.028 Myoglobin, serum - 12/30/18 22:24 Myoglobin, serum 27.0 ng/mL 10.0-92.0 Serum or plasma amylase measurement (enz ymatic activity/volume) - 12/30/18 22:24 Serum or plasma amylase measurement (enzymatic activit y/volume) 24 U/L 25-125 Lipase - 12/30/18 22:24 Lipase 14 U/L 8-78 Serum or plasma lithium measurement (mol es/volume) - 12/30/18 22:24 BNP PT 40.1 pg/mL <100.0 Serum or plasma troponin i.cardiac measu rement (mass/volume) - 12/31/18 01:20 Serum or plasma troponin i.cardiac measurement (mass/v olume) < ng/mL <0.028 Complete blood count (CBC) with automate d white blood cell (WBC) differential - 01/17/19 23:05 Blood leukocytes automated count (number/volume) 7.8 10*3/uL 4.3-11.0 Blood erythrocytes automated count (number/volume) 4.76 10*6/uL 4.35-5.85 Venous blood hemoglobin measurement (mass/volume) 14.2 g/dL 11.5-16.0 Blood hematocrit (volume fraction) 41 % 35-52 Automated erythrocyte mean corpuscular volume 86 [ foz_us] 80-99 Automated erythrocyte mean corpuscular h emoglobin (mass per erythrocyte) 30 pg 25-34 Automated erythrocyte mean corpuscular h emoglobin concentration measurement (mass/volume) 35 g/dL 32-36 Automated erythrocyte distribution width ratio 14. 5 % 10.0- 14.5 Automated blood platelet count (count/volume) 253 10*3/uL 130-400 Automated blood platelet mean volume measurement 10.1 [foz_us] 7.4-10.4 Automated blood neutrophils/100 leukocytes 85 % 42-75 Automated blood lymphocytes/100 leukocytes 9 % 12-44 Blood monocytes/100 leukocytes 6 % 0-12 Automated blood eosinophils/100 leukocytes 0 % 0-10 Automated blood basophils/100 leukocytes 0 % 0-10 Blood neutrophils automated count (number/volume) 6.6 10*3 1.8-7.8 Blood lymphocytes automated count (number/volume) 0.7 10*3 1.0-4.0 Blood monocytes automated count (number/volume) 0. 5 10*3 0.0-1.0 Automated eosinophil count 0.0 10*3/uL 0 .0-0.3 Automated blood basophil count (count/volume) 0.0 10*3/uL 0.0-0.1 PT panel in platelet poor plasma by coag ulation assay - 01/17/19 23:05 Prothrombin time (PT) in platelet poor plasma by coagu lation assay 15.1 s 12.2-14.7 INR in platelet poor plasma or blood by coagulation as say 1.1 0.8-1.4 Activated partial thromboplastin time (a PTT) in platelet poor plasma bycoagulation assay - 01/17/19 23:05 Activated partial thromboplastin time (a PTT) in platelet poor plasma bycoagulation assay 33 s 24-35 Blood lactic acid measurement (moles/vol ume) - 01/17/19 23:05 Blood lactic acid measurement (moles/volume) 1.99 mmol/L 0.50-2.00 Comprehensive metabolic panel - 01/17/19 23:05 Serum or plasma sodium measurement (moles/volume) 136 mmol/L 135-145 Serum or plasma potassium measurement (moles/volume) 3.8 mmol/L 3.6-5.0 Serum or plasma chloride measurement (moles/volume) 103 mmol/L 98-107 Carbon dioxide 18 mmol/L 21-32 Serum or plasma anion gap determination (moles/volume) 15 mmol/L 5-14 Serum or plasma urea nitrogen measurement (mass/volume ) 17 mg/dL 7-18 Serum or plasma creatinine measurement (mass/volume) 0.74 mg/dL 0.60-1.30 Serum or plasma urea nitrogen/creatinine mass ratio 23 NRG Serum or plasma creatinine measurement w ith calculation of estimated glomerular filtration rate > NRG Serum or plasma glucose measurement (mass/volume) 185 mg/dL 70-105 Serum or plasma calcium measurement (mass/volume) 8.5 mg/dL 8.5-10.1 Serum or plasma total bilirubin measurement (mass/volu me) 0.3 mg/dL 0.1-1.0 Serum or plasma alkaline phosphatase dio surement (enzymatic activity/volume) 153 U/L 40-136 Serum or plasma aspartate aminotransfera se measurement (enzymatic activity/volume) 21 U/L 5-34 Serum or plasma alanine aminotransferase measurement (enzymatic activity/volume) 30 U/L 0-55 Serum or plasma protein measurement (mass/volume) 7.0 g/dL 6.4-8.2 Serum or plasma albumin measurement (mass/volume) 3.6 g/dL 3.2-4.5 CALCIUM CORRECTED 8.8 mg/dL 8.5-10.1 Serum or plasma troponin i.cardiac measu rement (mass/volume) - 01/17/19 23:05 Serum or plasma troponin i.cardiac measurement (mass/v olume) < ng/mL <0.028 Serum or plasma lithium measurement (mol es/volume) - 01/17/19 23:05 BNP PT 320.0 pg/mL <100.0 Bacterial blood culture - 01/17/19 23:13 Bacterial blood culture NG NRG Complete urinalysis with reflex to cultu re - 01/17/19 23:21 Urine color determination YELLOW NRG Urine clarity determination SLIGHTLY CLOUDY NRG Urine pH measurement by test strip 8 5-9 Specific gravity of urine by test strip 1.010 1.016-1.022 Urine protein assay by test strip, semi-quantitative 1+ NEGATIVE Urine glucose detection by automated test strip NE GATIVE NEGATIVE Erythrocytes detection in urine sediment by light micr oscopy NEGATIVE NEGATIVE Urine ketones detection by automated test strip 3+ NEGATIVE Urine nitrite detection by test strip POSITIVE NEGATIVE Urine total bilirubin detection by test strip 1+ NEGATIVE Urine urobilinogen measurement by automated test strip (mass/volume) NORMAL NORMAL Urine leukocyte esterase detection by dipstick 3+ NEGATIVE Automated urine sediment erythrocyte cou nt by microscopy (number/high power field) RARE NRG Automated urine sediment leukocyte count by microscopy (number/high power field) [HPF] NRG Bacteria detection in urine sediment by light microsco py TRACE NRG Squamous epithelial cells detection in u rine sediment by light microscopy RARE NRG Crystals detection in urine sediment by light microsco py NONE NRG Casts detection in urine sediment by light microscopy NONE NRG Mucus detection in urine sediment by light microscopy NEGATIVE NRG Complete urinalysis with reflex to culture CULTURE PENDING NRG Bacterial urine culture - 01/17/19 23:21 Bacterial urine culture 3 OR MORE NRG COLONY COUNT 20,000 CFU/ML NRG FTX;REPORTABLE SUGGESTING PROBABLE COLLECTION NRG FREE TEXT ENTRY 2 CONTAMINATION WITH SKIN JOAQUINA NRG FREE TEXT ENTRY 3 NO SUSCEPTIBILITY PERFORMED NRG Bacterial blood culture - 01/17/19 23:35 Bacterial blood culture NG NRG Influenza virus A and B antigen detectio n - 01/17/19 23:50 FLU RESULT NEGATIVE FOR INFLUENZA A AND B ANTIGENS BY IA NRG Complete blood count (CBC) with automate d white blood cell (WBC) differential - 03/06/19 14:20 Blood leukocytes automated count (number/volume) 7.6 10*3/uL 4.3-11.0 Blood erythrocytes automated count (number/volume) 4.57 10*6/uL 4.35-5.85 Venous blood hemoglobin measurement (mass/volume) 12.8 g/dL 11.5-16.0 Blood hematocrit (volume fraction) 40 % 35-52 Automated erythrocyte mean corpuscular volume 86 [ foz_us] 80-99 Automated erythrocyte mean corpuscular h emoglobin (mass per erythrocyte) 28 pg 25-34 Automated erythrocyte mean corpuscular h emoglobin concentration measurement (mass/volume) 32 g/dL 32-36 Automated erythrocyte distribution width ratio 15. 2 % 10.0- 14.5 Automated blood platelet count (count/volume) 358 10*3/uL 130-400 Automated blood platelet mean volume measurement 10.1 [foz_us] 7.4-10.4 Automated blood neutrophils/100 leukocytes 52 % 42-75 Automated blood lymphocytes/100 leukocytes 36 % 12-44 Blood monocytes/100 leukocytes 9 % 0-12 Automated blood eosinophils/100 leukocytes 3 % 0-10 Automated blood basophils/100 leukocytes 0 % 0-10 Blood neutrophils automated count (number/volume) 4.0 10*3 1.8-7.8 Blood lymphocytes automated count (number/volume) 2.7 10*3 1.0-4.0 Blood monocytes automated count (number/volume) 0. 7 10*3 0.0-1.0 Automated eosinophil count 0.2 10*3/uL 0 .0-0.3 Automated blood basophil count (count/volume) 0.0 10*3/uL 0.0-0.1 Comprehensive metabolic panel - 03/06/19 14:20 Serum or plasma sodium measurement (moles/volume) 142 mmol/L 135-145 Serum or plasma potassium measurement (moles/volume) 4.2 mmol/L 3.6-5.0 Serum or plasma chloride measurement (moles/volume) 104 mmol/L 98-107 Carbon dioxide 25 mmol/L 21-32 Serum or plasma anion gap determination (moles/volume) 13 mmol/L 5-14 Serum or plasma urea nitrogen measurement (mass/volume ) 10 mg/dL 7-18 Serum or plasma creatinine measurement (mass/volume) 0.76 mg/dL 0.60-1.30 Serum or plasma urea nitrogen/creatinine mass ratio 13 NRG Serum or plasma creatinine measurement w ith calculation of estimated glomerular filtration rate > NRG Serum or plasma glucose measurement (mass/volume) 150 mg/dL 70-105 Serum or plasma calcium measurement (mass/volume) 9.5 mg/dL 8.5-10.1 Serum or plasma total bilirubin measurement (mass/volu me) 0.1 mg/dL 0.1-1.0 Serum or plasma alkaline phosphatase dio surement (enzymatic activity/volume) 150 U/L 40-136 Serum or plasma aspartate aminotransfera se measurement (enzymatic activity/volume) 22 U/L 5-34 Serum or plasma alanine aminotransferase measurement (enzymatic activity/volume) 26 U/L 0-55 Serum or plasma protein measurement (mass/volume) 7.5 g/dL 6.4-8.2 Serum or plasma albumin measurement (mass/volume) 3.8 g/dL 3.2-4.5 CALCIUM CORRECTED 9.7 mg/dL 8.5-10.1 Magnesium - 03/06/19 14:20 Magnesium 1.8 mg/dL 1.6-2.4 PT panel in platelet poor plasma by coag ulation assay - 03/06/19 14:20 Prothrombin time (PT) in platelet poor plasma by coagu lation assay 51.9 s 12.2-14.7 INR in platelet poor plasma or blood by coagulation as say 5.4 0.8-1.4 Activated partial thromboplastin time (a PTT) in platelet poor plasma bycoagulation assay - 03/06/19 14:20 Activated partial thromboplastin time (a PTT) in platelet poor plasma bycoagulation assay 60 s 24-35 Serum or plasma troponin i.cardiac measu rement (mass/volume) - 03/06/19 14:20 Serum or plasma troponin i.cardiac measurement (mass/v olume) < ng/mL <0.028 Myoglobin, serum - 03/06/19 14:20 Myoglobin, serum 31.5 ng/mL 10.0-92.0 Capillary blood glucose measurement by g lucometer (mass/volume) - 03/06/19 21:10 Capillary blood glucose measurement by glucometer (mas s/volume) 94 mg/dL 70-110 PT panel in platelet poor plasma by coag ulation assay - 03/07/19 03:05 Prothrombin time (PT) in platelet poor plasma by coagu lation assay 46.1 s 12.2-14.7 INR in platelet poor plasma or blood by coagulation as say 4.7 0.8-1.4 Lipid 1996 panel - 03/07/19 03:05 Serum or plasma triglyceride measurement (mass/volume) 77 mg/dL <150 Serum or plasma cholesterol measurement (mass/volume) 99 mg/dL < 200 Serum or plasma cholesterol in HDL measurement (mass/v olume) 39 mg/dL 40-60 Cholesterol in LDL [mass/volume] in serum or plasma by direct assay 47 mg/dL 1-129 Serum or plasma cholesterol in VLDL measurement (mass/ volume) 15 mg/dL 5-40 Capillary blood glucose measurement by g lucometer (mass/volume) - 03/07/19 05:06 Capillary blood glucose measurement by glucometer (mas s/volume) 102 mg/dL 70-110 Blood lactic acid measurement (moles/vol ume) - 03/07/19 11:10 Blood lactic acid measurement (moles/volume) 1.39 mmol/L 0.50-2.00 Bacterial blood culture - 03/07/19 11:10 Bacterial blood culture NG NRG Bacterial blood culture - 03/07/19 11:20 Bacterial blood culture NG NRG Capillary blood glucose measurement by g lucometer (mass/volume) - 03/07/19 11:20 Capillary blood glucose measurement by glucometer (mas s/volume) 135 mg/dL 70-110 Capillary blood glucose measurement by g lucometer (mass/volume) - 03/07/19 17:10 Capillary blood glucose measurement by glucometer (mas s/volume) 102 mg/dL 70-110 Capillary blood glucose measurement by g lucometer (mass/volume) - 03/07/19 20:36 Capillary blood glucose measurement by glucometer (mas s/volume) 123 mg/dL 70-110 PT panel in platelet poor plasma by coag ulation assay - 03/08/19 03:30 Prothrombin time (PT) in platelet poor plasma by coagu lation assay 30.4 s 12.2-14.7 INR in platelet poor plasma or blood by coagulation as say 2.8 0.8-1.4 Capillary blood glucose measurement by g lucometer (mass/volume) - 03/08/19 06:21 Capillary blood glucose measurement by glucometer (mas s/volume) 128 mg/dL 70-110 Capillary blood glucose measurement by g lucometer (mass/volume) - 03/08/19 11:12 Capillary blood glucose measurement by glucometer (mas s/volume) 128 mg/dL 70-110 Complete blood count (CBC) with automate d white blood cell (WBC) differential - 03/10/19 18:05 Blood leukocytes automated count (number/volume) 10.3 10*3/uL 4.3-11.0 Blood erythrocytes automated count (number/volume) 4.32 10*6/uL 4.35-5.85 Venous blood hemoglobin measurement (mass/volume) 12.3 g/dL 11.5-16.0 Blood hematocrit (volume fraction) 38 % 35-52 Automated erythrocyte mean corpuscular volume 87 [ foz_us] 80-99 Automated erythrocyte mean corpuscular h emoglobin (mass per erythrocyte) 29 pg 25-34 Automated erythrocyte mean corpuscular h emoglobin concentration measurement (mass/volume) 33 g/dL 32-36 Automated erythrocyte distribution width ratio 15. 1 % 10.0- 14.5 Automated blood platelet count (count/volume) 352 10*3/uL 130-400 Automated blood platelet mean volume measurement 10.4 [foz_us] 7.4-10.4 Automated blood neutrophils/100 leukocytes 61 % 42-75 Automated blood lymphocytes/100 leukocytes 27 % 12-44 Blood monocytes/100 leukocytes 9 % 0-12 Automated blood eosinophils/100 leukocytes 3 % 0-10 Automated blood basophils/100 leukocytes 0 % 0-10 Blood neutrophils automated count (number/volume) 6.3 10*3 1.8-7.8 Blood lymphocytes automated count (number/volume) 2.7 10*3 1.0-4.0 Blood monocytes automated count (number/volume) 0. 9 10*3 0.0-1.0 Automated eosinophil count 0.3 10*3/uL 0 .0-0.3 Automated blood basophil count (count/volume) 0.0 10*3/uL 0.0-0.1 PT panel in platelet poor plasma by coag ulation assay - 03/10/19 18:05 Prothrombin time (PT) in platelet poor plasma by coagu lation assay 25.7 s 12.2-14.7 INR in platelet poor plasma or blood by coagulation as say 2.2 0.8-1.4 Activated partial thromboplastin time (a PTT) in platelet poor plasma bycoagulation assay - 03/10/19 18:05 Activated partial thromboplastin time (a PTT) in platelet poor plasma bycoagulation assay 37 s 24-35 Comprehensive metabolic panel - 03/10/19 18:05 Serum or plasma sodium measurement (moles/volume) 138 mmol/L 135-145 Serum or plasma potassium measurement (moles/volume) 4.3 mmol/L 3.6-5.0 Serum or plasma chloride measurement (moles/volume) 101 mmol/L 98-107 Carbon dioxide 20 mmol/L 21-32 Serum or plasma anion gap determination (moles/volume) 17 mmol/L 5-14 Serum or plasma urea nitrogen measurement (mass/volume ) 14 mg/dL 7-18 Serum or plasma creatinine measurement (mass/volume) 0.98 mg/dL 0.60-1.30 Serum or plasma urea nitrogen/creatinine mass ratio 14 NRG Serum or plasma creatinine measurement w ith calculation of estimated glomerular filtration rate 57 NRG Serum or plasma glucose measurement (mass/volume) 125 mg/dL 70-105 Serum or plasma calcium measurement (mass/volume) 9.8 mg/dL 8.5-10.1 Serum or plasma total bilirubin measurement (mass/volu me) 0.2 mg/dL 0.1-1.0 Serum or plasma alkaline phosphatase dio surement (enzymatic activity/volume) 145 U/L 40-136 Serum or plasma aspartate aminotransfera se measurement (enzymatic activity/volume) 18 U/L 5-34 Serum or plasma alanine aminotransferase measurement (enzymatic activity/volume) 20 U/L 0-55 Serum or plasma protein measurement (mass/volume) 7.5 g/dL 6.4-8.2 Serum or plasma albumin measurement (mass/volume) 3.9 g/dL 3.2-4.5 CALCIUM CORRECTED 9.9 mg/dL 8.5-10.1 Magnesium - 03/10/19 18:05 Magnesium 1.6 mg/dL 1.6-2.4 Serum or plasma troponin i.cardiac measu rement (mass/volume) - 03/10/19 18:05 Serum or plasma troponin i.cardiac measurement (mass/v olume) < ng/mL <0.028 Myoglobin, serum - 03/10/19 18:05 Myoglobin, serum 52.6 ng/mL 10.0-92.0 Serum or plasma lithium measurement (mol es/volume) - 03/10/19 18:05 BNP PT 33.7 pg/mL <100.0 Serum or plasma troponin i.cardiac measu rement (mass/volume) - 03/10/19 20:03 Serum or plasma troponin i.cardiac measurement (mass/v olume) < ng/mL <0.028 Complete blood count (CBC) with automate d white blood cell (WBC) differential - 04/13/19 02:40 Blood leukocytes automated count (number/volume) 7.6 10*3/uL 4.3-11.0 Blood erythrocytes automated count (number/volume) 4.31 10*6/uL 4.35-5.85 Venous blood hemoglobin measurement (mass/volume) 12.1 g/dL 11.5-16.0 Blood hematocrit (volume fraction) 37 % 35-52 Automated erythrocyte mean corpuscular volume 87 [ foz_us] 80-99 Automated erythrocyte mean corpuscular h emoglobin (mass per erythrocyte) 28 pg 25-34 Automated erythrocyte mean corpuscular h emoglobin concentration measurement (mass/volume) 32 g/dL 32-36 Automated erythrocyte distribution width ratio 15. 7 % 10.0- 14.5 Automated blood platelet count (count/volume) 289 10*3/uL 130-400 Automated blood platelet mean volume measurement 9.8 [foz_us] 7.4-10.4 Automated blood neutrophils/100 leukocytes 44 % 42-75 Automated blood lymphocytes/100 leukocytes 41 % 12-44 Blood monocytes/100 leukocytes 10 % 0-12 Automated blood eosinophils/100 leukocytes 5 % 0-10 Automated blood basophils/100 leukocytes 0 % 0-10 Blood neutrophils automated count (number/volume) 3.4 10*3 1.8-7.8 Blood lymphocytes automated count (number/volume) 3.1 10*3 1.0-4.0 Blood monocytes automated count (number/volume) 0. 8 10*3 0.0-1.0 Automated eosinophil count 0.4 10*3/uL 0 .0-0.3 Automated blood basophil count (count/volume) 0.0 10*3/uL 0.0-0.1 PT panel in platelet poor plasma by coag ulation assay - 04/13/19 02:40 Prothrombin time (PT) in platelet poor plasma by coagu lation assay 24.3 s 12.2-14.7 INR in platelet poor plasma or blood by coagulation as say 2.1 0.8-1.4 Activated partial thromboplastin time (a PTT) in platelet poor plasma bycoagulation assay - 04/13/19 02:40 Activated partial thromboplastin time (a PTT) in platelet poor plasma bycoagulation assay 35 s 24-35 Comprehensive metabolic panel - 04/13/19 02:40 Serum or plasma sodium measurement (moles/volume) 141 mmol/L 135-145 Serum or plasma potassium measurement (moles/volume) 4.2 mmol/L 3.6-5.0 Serum or plasma chloride measurement (moles/volume) 104 mmol/L 98-107 Carbon dioxide 23 mmol/L 21-32 Serum or plasma anion gap determination (moles/volume) 14 mmol/L 5-14 Serum or plasma urea nitrogen measurement (mass/volume ) 18 mg/dL 7-18 Serum or plasma creatinine measurement (mass/volume) 0.82 mg/dL 0.60-1.30 Serum or plasma urea nitrogen/creatinine mass ratio 22 NRG Serum or plasma creatinine measurement w ith calculation of estimated glomerular filtration rate > NRG Serum or plasma glucose measurement (mass/volume) 132 mg/dL 70-105 Serum or plasma calcium measurement (mass/volume) 9.1 mg/dL 8.5-10.1 Serum or plasma total bilirubin measurement (mass/volu me) 0.1 mg/dL 0.1-1.0 Serum or plasma alkaline phosphatase dio surement (enzymatic activity/volume) 145 U/L 40-136 Serum or plasma aspartate aminotransfera se measurement (enzymatic activity/volume) 25 U/L 5-34 Serum or plasma alanine aminotransferase measurement (enzymatic activity/volume) 35 U/L 0-55 Serum or plasma protein measurement (mass/volume) 7.3 g/dL 6.4-8.2 Serum or plasma albumin measurement (mass/volume) 3.9 g/dL 3.2-4.5 CALCIUM CORRECTED 9.2 mg/dL 8.5-10.1 Magnesium - 04/13/19 02:40 Magnesium 1.7 mg/dL 1.6-2.4 Myoglobin, serum - 04/13/19 02:40 Myoglobin, serum 17.4 ng/mL 10.0-92.0 Serum or plasma troponin i.cardiac measu rement (mass/volume) - 04/13/19 02:40 Serum or plasma troponin i.cardiac measurement (mass/v olume) < ng/mL <0.028 Serum or plasma thyrotropin measurement by detection limit <=0.05 miu/l (units/volume) - 04/13/19 02:40 Serum or plasma thyrotropin measurement by detection limit <=0.05 miu/l (units/volume) 2.64 u[iU]/mL 0.35-4.94 Methicillin resistant Staphylococcus aur eus (MRSA) screening culture - 04/13/19 06:00 Methicillin resistant Staphylococcus aureus (MRSA) scr eening culture NEG NRG Serum or plasma troponin i.cardiac measu rement (mass/volume) - 04/13/19 06:45 Serum or plasma troponin i.cardiac measurement (mass/v olume) < ng/mL <0.028 Capillary blood glucose measurement by g lucometer (mass/volume) - 04/13/19 07:45 Capillary blood glucose measurement by glucometer (mas s/volume) 104 mg/dL 70-110 Capillary blood glucose measurement by g lucometer (mass/volume) - 04/13/19 17:18 Capillary blood glucose measurement by glucometer (mas s/volume) 126 mg/dL 70-110 Capillary blood glucose measurement by g lucometer (mass/volume) - 04/13/19 20:46 Capillary blood glucose measurement by glucometer (mas s/volume) 106 mg/dL 70-110 Complete blood count (CBC) with automate d white blood cell (WBC) differential - 04/14/19 03:34 Blood leukocytes automated count (number/volume) 7.3 10*3/uL 4.3-11.0 Blood erythrocytes automated count (number/volume) 4.44 10*6/uL 4.35-5.85 Venous blood hemoglobin measurement (mass/volume) 12.2 g/dL 11.5-16.0 Blood hematocrit (volume fraction) 38 % 35-52 Automated erythrocyte mean corpuscular volume 86 [ foz_us] 80-99 Automated erythrocyte mean corpuscular h emoglobin (mass per erythrocyte) 28 pg 25-34 Automated erythrocyte mean corpuscular h emoglobin concentration measurement (mass/volume) 32 g/dL 32-36 Automated erythrocyte distribution width ratio 16. 4 % 10.0- 14.5 Automated blood platelet count (count/volume) 286 10*3/uL 130-400 Automated blood platelet mean volume measurement 10.0 [foz_us] 7.4-10.4 Automated blood neutrophils/100 leukocytes 41 % 42-75 Automated blood lymphocytes/100 leukocytes 45 % 12-44 Blood monocytes/100 leukocytes 10 % 0-12 Automated blood eosinophils/100 leukocytes 5 % 0-10 Automated blood basophils/100 leukocytes 0 % 0-10 Blood neutrophils automated count (number/volume) 3.0 10*3 1.8-7.8 Blood lymphocytes automated count (number/volume) 3.3 10*3 1.0-4.0 Blood monocytes automated count (number/volume) 0. 7 10*3 0.0-1.0 Automated eosinophil count 0.4 10*3/uL 0 .0-0.3 Automated blood basophil count (count/volume) 0.0 10*3/uL 0.0-0.1 Whole blood basic metabolic panel - 03/18 03:34 Serum or plasma sodium measurement (moles/volume) 143 mmol/L 135-145 Serum or plasma potassium measurement (moles/volume) 4.3 mmol/L 3.6-5.0 Serum or plasma chloride measurement (moles/volume) 109 mmol/L 98-107 Carbon dioxide 23 mmol/L 21-32 Serum or plasma anion gap determination (moles/volume) 11 mmol/L 5-14 Serum or plasma urea nitrogen measurement (mass/volume ) 17 mg/dL 7-18 Serum or plasma creatinine measurement (mass/volume) 0.70 mg/dL 0.60-1.30 Serum or plasma urea nitrogen/creatinine mass ratio 24 NRG Serum or plasma creatinine measurement w ith calculation of estimated glomerular filtration rate > NRG Serum or plasma glucose measurement (mass/volume) 101 mg/dL 70-105 Serum or plasma calcium measurement (mass/volume) 9.1 mg/dL 8.5-10.1 Serum or plasma phosphate measurement (m ass/volume) - 04/14/19 03:34 Serum or plasma phosphate measurement (mass/volume) 4.1 mg/dL 2.3-4.7 Magnesium - 04/14/19 03:34 Magnesium 1.8 mg/dL 1.6-2.4 Lipid 1996 panel - 04/14/19 03:34 Serum or plasma triglyceride measurement (mass/volume) 61 mg/dL <150 Serum or plasma cholesterol measurement (mass/volume) 107 mg/dL < 200 Serum or plasma cholesterol in HDL measurement (mass/v olume) 48 mg/dL 40-60 Cholesterol in LDL [mass/volume] in serum or plasma by direct assay 41 mg/dL 1-129 Serum or plasma cholesterol in VLDL measurement (mass/ volume) 12 mg/dL 5-40 PT panel in platelet poor plasma by coag ulation assay - 04/14/19 03:34 Prothrombin time (PT) in platelet poor plasma by coagu lation assay 24.7 s 12.2-14.7 INR in platelet poor plasma or blood by coagulation as say 2.1 0.8-1.4 Capillary blood glucose measurement by g lucometer (mass/volume) - 04/14/19 06:53 Capillary blood glucose measurement by glucometer (mas s/volume) 105 mg/dL 70-110 Capillary blood glucose measurement by g lucometer (mass/volume) - 04/14/19 11:41 Capillary blood glucose measurement by glucometer (mas s/volume) 76 mg/dL 70-110 Capillary blood glucose measurement by g lucometer (mass/volume) - 04/14/19 17:06 Capillary blood glucose measurement by glucometer (mas s/volume) 125 mg/dL 70-110 Capillary blood glucose measurement by g lucometer (mass/volume) - 04/14/19 20:34 Capillary blood glucose measurement by glucometer (mas s/volume) 94 mg/dL 70-110 Complete blood count (CBC) with automate d white blood cell (WBC) differential - 04/15/19 05:51 Blood leukocytes automated count (number/volume) 7.2 10*3/uL 4.3-11.0 Blood erythrocytes automated count (number/volume) 3.90 10*6/uL 4.35-5.85 Venous blood hemoglobin measurement (mass/volume) 10.9 g/dL 11.5-16.0 Blood hematocrit (volume fraction) 34 % 35-52 Automated erythrocyte mean corpuscular volume 87 [ foz_us] 80-99 Automated erythrocyte mean corpuscular h emoglobin (mass per erythrocyte) 28 pg 25-34 Automated erythrocyte mean corpuscular h emoglobin concentration measurement (mass/volume) 32 g/dL 32-36 Automated erythrocyte distribution width ratio 15. 9 % 10.0- 14.5 Automated blood platelet count (count/volume) 257 10*3/uL 130-400 Automated blood platelet mean volume measurement 9.7 [foz_us] 7.4-10.4 Automated blood neutrophils/100 leukocytes 39 % 42-75 Automated blood lymphocytes/100 leukocytes 44 % 12-44 Blood monocytes/100 leukocytes 11 % 0-12 Automated blood eosinophils/100 leukocytes 5 % 0-10 Automated blood basophils/100 leukocytes 0 % 0-10 Blood neutrophils automated count (number/volume) 2.8 10*3 1.8-7.8 Blood lymphocytes automated count (number/volume) 3.2 10*3 1.0-4.0 Blood monocytes automated count (number/volume) 0. 8 10*3 0.0-1.0 Automated eosinophil count 0.4 10*3/uL 0 .0-0.3 Automated blood basophil count (count/volume) 0.0 10*3/uL 0.0-0.1 PT panel in platelet poor plasma by coag ulation assay - 04/15/19 05:57 Prothrombin time (PT) in platelet poor plasma by coagu lation assay 22.7 s 12.2-14.7 INR in platelet poor plasma or blood by coagulation as say 1.9 0.8-1.4 Comprehensive metabolic panel - 04/15/19 05:57 Serum or plasma sodium measurement (moles/volume) 142 mmol/L 135-145 Serum or plasma potassium measurement (moles/volume) 4.1 mmol/L 3.6-5.0 Serum or plasma chloride measurement (moles/volume) 105 mmol/L 98-107 Carbon dioxide 25 mmol/L 21-32 Serum or plasma anion gap determination (moles/volume) 12 mmol/L 5-14 Serum or plasma urea nitrogen measurement (mass/volume ) 21 mg/dL 7-18 Serum or plasma creatinine measurement (mass/volume) 0.70 mg/dL 0.60-1.30 Serum or plasma urea nitrogen/creatinine mass ratio 30 NRG Serum or plasma creatinine measurement w ith calculation of estimated glomerular filtration rate > NRG Serum or plasma glucose measurement (mass/volume) 83 mg/dL 70-105 Serum or plasma calcium measurement (mass/volume) 8.8 mg/dL 8.5-10.1 Serum or plasma total bilirubin measurement (mass/volu me) 0.1 mg/dL 0.1-1.0 Serum or plasma alkaline phosphatase dio surement (enzymatic activity/volume) 113 U/L 40-136 Serum or plasma aspartate aminotransfera se measurement (enzymatic activity/volume) 28 U/L 5-34 Serum or plasma alanine aminotransferase measurement (enzymatic activity/volume) 32 U/L 0-55 Serum or plasma protein measurement (mass/volume) 6.3 g/dL 6.4-8.2 Serum or plasma albumin measurement (mass/volume) 3.4 g/dL 3.2-4.5 CALCIUM CORRECTED 9.3 mg/dL 8.5-10.1 Capillary blood glucose measurement by g lucometer (mass/volume) - 04/15/19 11:42 Capillary blood glucose measurement by glucometer (mas s/volume) 63 mg/dL 70-110 Complete blood count (CBC) with automate d white blood cell (WBC) differential - 04/20/19 15:30 Blood leukocytes automated count (number/volume) 8.0 10*3/uL 4.3-11.0 Blood erythrocytes automated count (number/volume) 4.43 10*6/uL 4.35-5.85 Venous blood hemoglobin measurement (mass/volume) 12.6 g/dL 11.5-16.0 Blood hematocrit (volume fraction) 38 % 35-52 Automated erythrocyte mean corpuscular volume 85 [ foz_us] 80-99 Automated erythrocyte mean corpuscular h emoglobin (mass per erythrocyte) 28 pg 25-34 Automated erythrocyte mean corpuscular h emoglobin concentration measurement (mass/volume) 34 g/dL 32-36 Automated erythrocyte distribution width ratio 16. 1 % 10.0- 14.5 Automated blood platelet count (count/volume) 315 10*3/uL 130-400 Automated blood platelet mean volume measurement 10.0 [foz_us] 7.4-10.4 Automated blood neutrophils/100 leukocytes 44 % 42-75 Automated blood lymphocytes/100 leukocytes 41 % 12-44 Blood monocytes/100 leukocytes 10 % 0-12 Automated blood eosinophils/100 leukocytes 4 % 0-10 Automated blood basophils/100 leukocytes 0 % 0-10 Blood neutrophils automated count (number/volume) 3.5 10*3 1.8-7.8 Blood lymphocytes automated count (number/volume) 3.3 10*3 1.0-4.0 Blood monocytes automated count (number/volume) 0. 8 10*3 0.0-1.0 Automated eosinophil count 0.4 10*3/uL 0 .0-0.3 Automated blood basophil count (count/volume) 0.0 10*3/uL 0.0-0.1 PT panel in platelet poor plasma by coag ulation assay - 04/20/19 15:30 Prothrombin time (PT) in platelet poor plasma by coagu lation assay 23.3 s 12.2-14.7 INR in platelet poor plasma or blood by coagulation as say 2.0 0.8-1.4 Activated partial thromboplastin time (a PTT) in platelet poor plasma bycoagulation assay - 04/20/19 15:30 Activated partial thromboplastin time (a PTT) in platelet poor plasma bycoagulation assay 36 s 24-35 Comprehensive metabolic panel - 04/20/19 15:30 Serum or plasma sodium measurement (moles/volume) 139 mmol/L 135-145 Serum or plasma potassium measurement (moles/volume) 4.2 mmol/L 3.6-5.0 Serum or plasma chloride measurement (moles/volume) 101 mmol/L 98-107 Carbon dioxide 25 mmol/L 21-32 Serum or plasma anion gap determination (moles/volume) 13 mmol/L 5-14 Serum or plasma urea nitrogen measurement (mass/volume ) 14 mg/dL 7-18 Serum or plasma creatinine measurement (mass/volume) 0.76 mg/dL 0.60-1.30 Serum or plasma urea nitrogen/creatinine mass ratio 18 NRG Serum or plasma creatinine measurement w ith calculation of estimated glomerular filtration rate > NRG Serum or plasma glucose measurement (mass/volume) 82 mg/dL 70-105 Serum or plasma calcium measurement (mass/volume) 9.2 mg/dL 8.5-10.1 Serum or plasma total bilirubin measurement (mass/volu me) 0.1 mg/dL 0.1-1.0 Serum or plasma alkaline phosphatase dio surement (enzymatic activity/volume) 139 U/L 40-136 Serum or plasma aspartate aminotransfera se measurement (enzymatic activity/volume) 32 U/L 5-34 Serum or plasma alanine aminotransferase measurement (enzymatic activity/volume) 47 U/L 0-55 Serum or plasma protein measurement (mass/volume) 6.9 g/dL 6.4-8.2 Serum or plasma albumin measurement (mass/volume) 3.8 g/dL 3.2-4.5 CALCIUM CORRECTED 9.4 mg/dL 8.5-10.1 Magnesium - 04/20/19 15:30 Magnesium 1.8 mg/dL 1.6-2.4 Serum or plasma troponin i.cardiac measu rement (mass/volume) - 04/20/19 15:30 Serum or plasma troponin i.cardiac measurement (mass/v olume) < ng/mL <0.028 Myoglobin, serum - 04/20/19 15:30 Myoglobin, serum 21.4 ng/mL 10.0-92.0 Capillary blood glucose measurement by g lucometer (mass/volume) - 04/20/19 15:32 Capillary blood glucose measurement by glucometer (mas s/volume) 81 mg/dL 70-110 Capillary blood glucose measurement by g lucometer (mass/volume) - 04/20/19 21:52 Capillary blood glucose measurement by glucometer (mas s/volume) 142 mg/dL 70-110 Complete blood count (CBC) with automate d white blood cell (WBC) differential - 04/21/19 03:59 Blood leukocytes automated count (number/volume) 9.5 10*3/uL 4.3-11.0 Blood erythrocytes automated count (number/volume) 4.81 10*6/uL 4.35-5.85 Venous blood hemoglobin measurement (mass/volume) 13.3 g/dL 11.5-16.0 Blood hematocrit (volume fraction) 41 % 35-52 Automated erythrocyte mean corpuscular volume 85 [ foz_us] 80-99 Automated erythrocyte mean corpuscular h emoglobin (mass per erythrocyte) 28 pg 25-34 Automated erythrocyte mean corpuscular h emoglobin concentration measurement (mass/volume) 33 g/dL 32-36 Automated erythrocyte distribution width ratio 16. 4 % 10.0- 14.5 Automated blood platelet count (count/volume) 342 10*3/uL 130-400 Automated blood platelet mean volume measurement 10.0 [foz_us] 7.4-10.4 Automated blood neutrophils/100 leukocytes 45 % 42-75 Automated blood lymphocytes/100 leukocytes 42 % 12-44 Blood monocytes/100 leukocytes 9 % 0-12 Automated blood eosinophils/100 leukocytes 4 % 0-10 Automated blood basophils/100 leukocytes 0 % 0-10 Blood neutrophils automated count (number/volume) 4.2 10*3 1.8-7.8 Blood lymphocytes automated count (number/volume) 4.0 10*3 1.0-4.0 Blood monocytes automated count (number/volume) 0. 9 10*3 0.0-1.0 Automated eosinophil count 0.4 10*3/uL 0 .0-0.3 Automated blood basophil count (count/volume) 0.0 10*3/uL 0.0-0.1 Whole blood basic metabolic panel - 12/01 03:59 Serum or plasma sodium measurement (moles/volume) 141 mmol/L 135-145 Serum or plasma potassium measurement (moles/volume) 4.4 mmol/L 3.6-5.0 Serum or plasma chloride measurement (moles/volume) 105 mmol/L 98-107 Carbon dioxide 24 mmol/L 21-32 Serum or plasma anion gap determination (moles/volume) 12 mmol/L 5-14 Serum or plasma urea nitrogen measurement (mass/volume ) 15 mg/dL 7-18 Serum or plasma creatinine measurement (mass/volume) 0.73 mg/dL 0.60-1.30 Serum or plasma urea nitrogen/creatinine mass ratio 21 NRG Serum or plasma creatinine measurement w ith calculation of estimated glomerular filtration rate > NRG Serum or plasma glucose measurement (mass/volume) 96 mg/dL 70-105 Serum or plasma calcium measurement (mass/volume) 9.2 mg/dL 8.5-10.1 Serum or plasma phosphate measurement (m ass/volume) - 04/21/19 03:59 Serum or plasma phosphate measurement (mass/volume) 4.6 mg/dL 2.3-4.7 Magnesium - 04/21/19 03:59 Magnesium 1.9 mg/dL 1.6-2.4 Lipid 1996 panel - 04/21/19 03:59 Serum or plasma triglyceride measurement (mass/volume) 63 mg/dL <150 Serum or plasma cholesterol measurement (mass/volume) 113 mg/dL < 200 Serum or plasma cholesterol in HDL measurement (mass/v olume) 52 mg/dL 40-60 Cholesterol in LDL [mass/volume] in serum or plasma by direct assay 45 mg/dL 1-129 Serum or plasma cholesterol in VLDL measurement (mass/ volume) 13 mg/dL 5-40 Capillary blood glucose measurement by g lucometer (mass/volume) - 04/21/19 12:05 Capillary blood glucose measurement by glucometer (mas s/volume) 108 mg/dL 70-110 Capillary blood glucose measurement by g lucometer (mass/volume) - 04/21/19 17:02 Capillary blood glucose measurement by glucometer (mas s/volume) 79 mg/dL 70-110 Capillary blood glucose measurement by g lucometer (mass/volume) - 04/21/19 20:36 Capillary blood glucose measurement by glucometer (mas s/volume) 110 mg/dL 70-110 Complete blood count (CBC) with automate d white blood cell (WBC) differential - 04/22/19 03:39 Blood leukocytes automated count (number/volume) 8.6 10*3/uL 4.3-11.0 Blood erythrocytes automated count (number/volume) 4.07 10*6/uL 4.35-5.85 Venous blood hemoglobin measurement (mass/volume) 11.6 g/dL 11.5-16.0 Blood hematocrit (volume fraction) 35 % 35-52 Automated erythrocyte mean corpuscular volume 87 [ foz_us] 80-99 Automated erythrocyte mean corpuscular h emoglobin (mass per erythrocyte) 29 pg 25-34 Automated erythrocyte mean corpuscular h emoglobin concentration measurement (mass/volume) 33 g/dL 32-36 Automated erythrocyte distribution width ratio 15. 9 % 10.0- 14.5 Automated blood platelet count (count/volume) 261 10*3/uL 130-400 Automated blood platelet mean volume measurement 9.8 [foz_us] 7.4-10.4 Automated blood neutrophils/100 leukocytes 44 % 42-75 Automated blood lymphocytes/100 leukocytes 41 % 12-44 Blood monocytes/100 leukocytes 9 % 0-12 Automated blood eosinophils/100 leukocytes 6 % 0-10 Automated blood basophils/100 leukocytes 0 % 0-10 Blood neutrophils automated count (number/volume) 3.8 10*3 1.8-7.8 Blood lymphocytes automated count (number/volume) 3.5 10*3 1.0-4.0 Blood monocytes automated count (number/volume) 0. 8 10*3 0.0-1.0 Automated eosinophil count 0.5 10*3/uL 0 .0-0.3 Automated blood basophil count (count/volume) 0.0 10*3/uL 0.0-0.1 PT panel in platelet poor plasma by coag ulation assay - 04/22/19 03:39 Prothrombin time (PT) in platelet poor plasma by coagu lation assay 22.0 s 12.2-14.7 INR in platelet poor plasma or blood by coagulation as say 1.8 0.8-1.4 Whole blood basic metabolic panel - 01/01 03:39 Serum or plasma sodium measurement (moles/volume) 140 mmol/L 135-145 Serum or plasma potassium measurement (moles/volume) 4.4 mmol/L 3.6-5.0 Serum or plasma chloride measurement (moles/volume) 104 mmol/L 98-107 Carbon dioxide 23 mmol/L 21-32 Serum or plasma anion gap determination (moles/volume) 13 mmol/L 5-14 Serum or plasma urea nitrogen measurement (mass/volume ) 19 mg/dL 7-18 Serum or plasma creatinine measurement (mass/volume) 0.69 mg/dL 0.60-1.30 Serum or plasma urea nitrogen/creatinine mass ratio 28 NRG Serum or plasma creatinine measurement w ith calculation of estimated glomerular filtration rate > NRG Serum or plasma glucose measurement (mass/volume) 105 mg/dL 70-105 Serum or plasma calcium measurement (mass/volume) 8.9 mg/dL 8.5-10.1 Serum or plasma phosphate measurement (m ass/volume) - 04/22/19 03:39 Serum or plasma phosphate measurement (mass/volume) 3.9 mg/dL 2.3-4.7 Magnesium - 04/22/19 03:39 Magnesium 1.8 mg/dL 1.6-2.4 Capillary blood glucose measurement by g lucometer (mass/volume) - 04/22/19 11:46 Capillary blood glucose measurement by glucometer (mas s/volume) 132 mg/dL 70-110 Capillary blood glucose measurement by g lucometer (mass/volume) - 04/22/19 16:44 Capillary blood glucose measurement by glucometer (mas s/volume) 106 mg/dL 70-110 PT panel in platelet poor plasma by coag ulation assay - 04/23/19 03:10 Prothrombin time (PT) in platelet poor plasma by coagu lation assay 22.7 s 12.2-14.7 INR in platelet poor plasma or blood by coagulation as say 1.9 0.8-1.4 Capillary blood glucose measurement by g lucometer (mass/volume) - 04/23/19 11:43 Capillary blood glucose measurement by glucometer (mas s/volume) 69 mg/dL 70-110 Capillary blood glucose measurement by g lucometer (mass/volume) - 04/23/19 22:09 Capillary blood glucose measurement by glucometer (mas s/volume) 74 mg/dL 70-110 Complete blood count (CBC) with automate d white blood cell (WBC) differential - 04/24/19 03:15 Blood leukocytes automated count (number/volume) 7.0 10*3/uL 4.3-11.0 Blood erythrocytes automated count (number/volume) 3.93 10*6/uL 4.35-5.85 Venous blood hemoglobin measurement (mass/volume) 11.0 g/dL 11.5-16.0 Blood hematocrit (volume fraction) 34 % 35-52 Automated erythrocyte mean corpuscular volume 87 [ foz_us] 80-99 Automated erythrocyte mean corpuscular h emoglobin (mass per erythrocyte) 28 pg 25-34 Automated erythrocyte mean corpuscular h emoglobin concentration measurement (mass/volume) 32 g/dL 32-36 Automated erythrocyte distribution width ratio 15. 7 % 10.0- 14.5 Automated blood platelet count (count/volume) 243 10*3/uL 130-400 Automated blood platelet mean volume measurement 9.6 [foz_us] 7.4-10.4 Automated blood neutrophils/100 leukocytes 47 % 42-75 Automated blood lymphocytes/100 leukocytes 39 % 12-44 Blood monocytes/100 leukocytes 8 % 0-12 Automated blood eosinophils/100 leukocytes 5 % 0-10 Automated blood basophils/100 leukocytes 0 % 0-10 Blood neutrophils automated count (number/volume) 3.3 10*3 1.8-7.8 Blood lymphocytes automated count (number/volume) 2.8 10*3 1.0-4.0 Blood monocytes automated count (number/volume) 0. 5 10*3 0.0-1.0 Automated eosinophil count 0.4 10*3/uL 0 .0-0.3 Automated blood basophil count (count/volume) 0.0 10*3/uL 0.0-0.1 PT panel in platelet poor plasma by coag ulation assay - 04/24/19 03:15 Prothrombin time (PT) in platelet poor plasma by coagu lation assay 24.8 s 12.2-14.7 INR in platelet poor plasma or blood by coagulation as say 2.1 0.8-1.4 Whole blood basic metabolic panel - 04/15 03:15 Serum or plasma sodium measurement (moles/volume) 142 mmol/L 135-145 Serum or plasma potassium measurement (moles/volume) 4.0 mmol/L 3.6-5.0 Serum or plasma chloride measurement (moles/volume) 106 mmol/L 98-107 Carbon dioxide 23 mmol/L 21-32 Serum or plasma anion gap determination (moles/volume) 13 mmol/L 5-14 Serum or plasma urea nitrogen measurement (mass/volume ) 13 mg/dL 7-18 Serum or plasma creatinine measurement (mass/volume) 0.62 mg/dL 0.60-1.30 Serum or plasma urea nitrogen/creatinine mass ratio 21 NRG Serum or plasma creatinine measurement w ith calculation of estimated glomerular filtration rate > NRG Serum or plasma glucose measurement (mass/volume) 87 mg/dL 70-105 Serum or plasma calcium measurement (mass/volume) 8.8 mg/dL 8.5-10.1 Capillary blood glucose measurement by g lucometer (mass/volume) - 04/24/19 11:31 Capillary blood glucose measurement by glucometer (mas s/volume) 71 mg/dL 70-110 Bacterial urine culture - 05/16/19 20:23 Bacterial urine culture [id number] NRG COLONY COUNT 70,000 cfu/ml NRG FTX;REPORTABLE SUSCEPTIBILITY REPORTED 1-4-20, 145 0 NRG FREE TEXT ENTRY 2 ID CONFIRMED BY RML N RG Complete urinalysis with reflex to cultu re - 05/16/19 20:23 Urine color determination YELLOW NRG Urine clarity determination CLEAR NR G Urine pH measurement by test strip 7.5 5-9 Specific gravity of urine by test strip 1.010 1.016-1.022 Urine protein assay by test strip, semi-quantitative NEGATIVE NEGATIVE Urine glucose detection by automated test strip NE GATIVE NEGATIVE Erythrocytes detection in urine sediment by light micr oscopy TRACE-L NEGATIVE Urine ketones detection by automated test strip NE GATIVE NEGATIVE Urine nitrite detection by test strip NEGATIVE NEGATIVE Urine total bilirubin detection by test strip NEGA TIVE NEGATIVE Urine urobilinogen measurement by automated test strip (mass/volume) 0.2 mg/dL < = 1.0 Urine leukocyte esterase detection by dipstick 3+ NEGATIVE Automated urine sediment erythrocyte cou nt by microscopy (number/high power field) [HPF] NRG Automated urine sediment leukocyte count by microscopy (number/high power field) [HPF] NRG Bacteria detection in urine sediment by light microsco py FEW NRG Crystals detection in urine sediment by light microsco py NONE NRG Casts detection in urine sediment by light microscopy NONE NRG Mucus detection in urine sediment by light microscopy NEGATIVE NRG Complete urinalysis with reflex to culture YES NRG Dirithromycin susceptibility test by dis k diffusion - 05/16/19 20:23 Gentamicin susceptibility test by minimum inhibitory c oncentration <= NRG Levofloxacin susceptibility test by minimum inhibitory concentration 2 NRG Tobramycin susceptibility test by minimum inhibitory c oncentration <= NRG Piperacillin/tazobactam susceptibility t est by minimum inhibitory concentration = NRG Ciprofloxacin susceptibility test by minimum inhibitor y concentration 1 NRG Meropenem susceptibility test by minimum inhibitory co ncentration 0.5 NRG Aztreonam susceptibility test by minimum inhibitory co ncentration 16 NRG Cefepime susceptibility test by minimum inhibitory con centration 4 NRG Imipenem susceptibility test by minimum inhibitory con centration 1 NRG Ceftazidime susceptibility test by minimum inhibitory concentration 8 NRG Complete blood count (CBC) with automate d white blood cell (WBC) differential - 05/18/19 14:40 Blood leukocytes automated count (number/volume) 7.4 10*3/uL 4.3-11.0 Blood erythrocytes automated count (number/volume) 4.81 10*6/uL 4.35-5.85 Venous blood hemoglobin measurement (mass/volume) 13.4 g/dL 11.5-16.0 Blood hematocrit (volume fraction) 41 % 35-52 Automated erythrocyte mean corpuscular volume 85 [ foz_us] 80-99 Automated erythrocyte mean corpuscular h emoglobin (mass per erythrocyte) 28 pg 25-34 Automated erythrocyte mean corpuscular h emoglobin concentration measurement (mass/volume) 33 g/dL 32-36 Automated erythrocyte distribution width ratio 16. 4 % 10.0- 14.5 Automated blood platelet count (count/volume) 299 10*3/uL 130-400 Automated blood platelet mean volume measurement 10.0 [foz_us] 7.4-10.4 Automated blood neutrophils/100 leukocytes 45 % 42-75 Automated blood lymphocytes/100 leukocytes 42 % 12-44 Blood monocytes/100 leukocytes 9 % 0-12 Automated blood eosinophils/100 leukocytes 4 % 0-10 Automated blood basophils/100 leukocytes 0 % 0-10 Blood neutrophils automated count (number/volume) 3.3 10*3 1.8-7.8 Blood lymphocytes automated count (number/volume) 3.1 10*3 1.0-4.0 Blood monocytes automated count (number/volume) 0. 7 10*3 0.0-1.0 Automated eosinophil count 0.3 10*3/uL 0 .0-0.3 Automated blood basophil count (count/volume) 0.0 10*3/uL 0.0-0.1 PT panel in platelet poor plasma by coag ulation assay - 05/18/19 14:40 Prothrombin time (PT) in platelet poor plasma by coagu lation assay 27.8 s 12.2-14.7 INR in platelet poor plasma or blood by coagulation as say 2.5 0.8-1.4 Activated partial thromboplastin time (a PTT) in platelet poor plasma bycoagulation assay - 05/18/19 14:40 Activated partial thromboplastin time (a PTT) in platelet poor plasma bycoagulation assay 41 s 24-35 Comprehensive metabolic panel - 05/18/19 14:40 Serum or plasma sodium measurement (moles/volume) 139 mmol/L 135-145 Serum or plasma potassium measurement (moles/volume) 4.4 mmol/L 3.6-5.0 Serum or plasma chloride measurement (moles/volume) 103 mmol/L 98-107 Carbon dioxide 22 mmol/L 21-32 Serum or plasma anion gap determination (moles/volume) 14 mmol/L 5-14 Serum or plasma urea nitrogen measurement (mass/volume ) 16 mg/dL 7-18 Serum or plasma creatinine measurement (mass/volume) 0.74 mg/dL 0.60-1.30 Serum or plasma urea nitrogen/creatinine mass ratio 22 NRG Serum or plasma creatinine measurement w ith calculation of estimated glomerular filtration rate > NRG Serum or plasma glucose measurement (mass/volume) 97 mg/dL 70-105 Serum or plasma calcium measurement (mass/volume) 9.3 mg/dL 8.5-10.1 Serum or plasma total bilirubin measurement (mass/volu me) 0.1 mg/dL 0.1-1.0 Serum or plasma alkaline phosphatase dio surement (enzymatic activity/volume) 170 U/L 40-136 Serum or plasma aspartate aminotransfera se measurement (enzymatic activity/volume) 30 U/L 5-34 Serum or plasma alanine aminotransferase measurement (enzymatic activity/volume) 43 U/L 0-55 Serum or plasma protein measurement (mass/volume) 7.7 g/dL 6.4-8.2 Serum or plasma albumin measurement (mass/volume) 4.1 g/dL 3.2-4.5 CALCIUM CORRECTED 9.2 mg/dL 8.5-10.1 Magnesium - 05/18/19 14:40 Magnesium 1.8 mg/dL 1.6-2.4 Serum or plasma troponin i.cardiac measu rement (mass/volume) - 05/18/19 14:40 Serum or plasma troponin i.cardiac measurement (mass/v olume) < ng/mL <0.028 Myoglobin, serum - 05/18/19 14:40 Myoglobin, serum 21.7 ng/mL 10.0-92.0 Serum or plasma lithium measurement (mol es/volume) - 05/18/19 14:40 BNP PT 31.5 pg/mL <100.0 Serum or plasma troponin i.cardiac measu rement (mass/volume) - 05/18/19 17:25 Serum or plasma troponin i.cardiac measurement (mass/v olume) < ng/mL <0.028 Methicillin resistant Staphylococcus aur eus (MRSA) screening culture - 05/18/19 20:45 Methicillin resistant Staphylococcus aureus (MRSA) scr eening culture NEG NRG Capillary blood glucose measurement by g lucometer (mass/volume) - 05/18/19 21:33 Capillary blood glucose measurement by glucometer (mas s/volume) 120 mg/dL 70-110 Complete blood count (CBC) with automate d white blood cell (WBC) differential - 05/19/19 02:55 Blood leukocytes automated count (number/volume) 7.8 10*3/uL 4.3-11.0 Blood erythrocytes automated count (number/volume) 4.33 10*6/uL 4.35-5.85 Venous blood hemoglobin measurement (mass/volume) 12.1 g/dL 11.5-16.0 Blood hematocrit (volume fraction) 37 % 35-52 Automated erythrocyte mean corpuscular volume 86 [ foz_us] 80-99 Automated erythrocyte mean corpuscular h emoglobin (mass per erythrocyte) 28 pg 25-34 Automated erythrocyte mean corpuscular h emoglobin concentration measurement (mass/volume) 33 g/dL 32-36 Automated erythrocyte distribution width ratio 16. 5 % 10.0- 14.5 Automated blood platelet count (count/volume) 282 10*3/uL 130-400 Automated blood platelet mean volume measurement 10.1 [foz_us] 7.4-10.4 Automated blood neutrophils/100 leukocytes 41 % 42-75 Automated blood lymphocytes/100 leukocytes 43 % 12-44 Blood monocytes/100 leukocytes 10 % 0-12 Automated blood eosinophils/100 leukocytes 5 % 0-10 Automated blood basophils/100 leukocytes 0 % 0-10 Blood neutrophils automated count (number/volume) 3.2 10*3 1.8-7.8 Blood lymphocytes automated count (number/volume) 3.4 10*3 1.0-4.0 Blood monocytes automated count (number/volume) 0. 8 10*3 0.0-1.0 Automated eosinophil count 0.4 10*3/uL 0 .0-0.3 Automated blood basophil count (count/volume) 0.0 10*3/uL 0.0-0.1 PT panel in platelet poor plasma by coag ulation assay - 05/19/19 02:55 Prothrombin time (PT) in platelet poor plasma by coagu lation assay 26.6 s 12.2-14.7 INR in platelet poor plasma or blood by coagulation as say 2.3 0.8-1.4 Comprehensive metabolic panel - 05/19/19 02:55 Serum or plasma sodium measurement (moles/volume) 141 mmol/L 135-145 Serum or plasma potassium measurement (moles/volume) 4.1 mmol/L 3.6-5.0 Serum or plasma chloride measurement (moles/volume) 108 mmol/L 98-107 Carbon dioxide 23 mmol/L 21-32 Serum or plasma anion gap determination (moles/volume) 10 mmol/L 5-14 Serum or plasma urea nitrogen measurement (mass/volume ) 14 mg/dL 7-18 Serum or plasma creatinine measurement (mass/volume) 0.68 mg/dL 0.60-1.30 Serum or plasma urea nitrogen/creatinine mass ratio 21 NRG Serum or plasma creatinine measurement w ith calculation of estimated glomerular filtration rate > NRG Serum or plasma glucose measurement (mass/volume) 92 mg/dL 70-105 Serum or plasma calcium measurement (mass/volume) 8.9 mg/dL 8.5-10.1 Serum or plasma total bilirubin measurement (mass/volu me) 0.1 mg/dL 0.1-1.0 Serum or plasma alkaline phosphatase dio surement (enzymatic activity/volume) 142 U/L 40-136 Serum or plasma aspartate aminotransfera se measurement (enzymatic activity/volume) 23 U/L 5-34 Serum or plasma alanine aminotransferase measurement (enzymatic activity/volume) 34 U/L 0-55 Serum or plasma protein measurement (mass/volume) 6.5 g/dL 6.4-8.2 Serum or plasma albumin measurement (mass/volume) 3.5 g/dL 3.2-4.5 CALCIUM CORRECTED 9.3 mg/dL 8.5-10.1 Lipid 1996 panel - 05/19/19 02:55 Serum or plasma triglyceride measurement (mass/volume) 42 mg/dL <150 Serum or plasma cholesterol measurement (mass/volume) 105 mg/dL < 200 Serum or plasma cholesterol in HDL measurement (mass/v olume) 53 mg/dL 40-60 Cholesterol in LDL [mass/volume] in serum or plasma by direct assay 38 mg/dL 1-129 Serum or plasma cholesterol in VLDL measurement (mass/ volume) 8 mg/dL 5-40 Capillary blood glucose measurement by g lucometer (mass/volume) - 05/19/19 11:29 Capillary blood glucose measurement by glucometer (mas s/volume) 70 mg/dL 70-110 Capillary blood glucose measurement by g lucometer (mass/volume) - 05/19/19 15:42 Capillary blood glucose measurement by glucometer (mas s/volume) 99 mg/dL 70-110 Capillary blood glucose measurement by g lucometer (mass/volume) - 05/19/19 16:40 Capillary blood glucose measurement by glucometer (mas s/volume) 96 mg/dL 70-110 Capillary blood glucose measurement by g lucometer (mass/volume) - 05/19/19 19:59 Capillary blood glucose measurement by glucometer (mas s/volume) 103 mg/dL 70-110 Capillary blood glucose measurement by g lucometer (mass/volume) - 05/20/19 00:01 Capillary blood glucose measurement by glucometer (mas s/volume) 135 mg/dL 70-110 Complete blood count (CBC) with automate d white blood cell (WBC) differential - 05/20/19 03:27 Blood leukocytes automated count (number/volume) 7.6 10*3/uL 4.3-11.0 Blood erythrocytes automated count (number/volume) 4.48 10*6/uL 4.35-5.85 Venous blood hemoglobin measurement (mass/volume) 12.5 g/dL 11.5-16.0 Blood hematocrit (volume fraction) 39 % 35-52 Automated erythrocyte mean corpuscular volume 86 [ foz_us] 80-99 Automated erythrocyte mean corpuscular h emoglobin (mass per erythrocyte) 28 pg 25-34 Automated erythrocyte mean corpuscular h emoglobin concentration measurement (mass/volume) 33 g/dL 32-36 Automated erythrocyte distribution width ratio 16. 3 % 10.0- 14.5 Automated blood platelet count (count/volume) 252 10*3/uL 130-400 Automated blood platelet mean volume measurement 10.1 [foz_us] 7.4-10.4 Automated blood neutrophils/100 leukocytes 41 % 42-75 Automated blood lymphocytes/100 leukocytes 44 % 12-44 Blood monocytes/100 leukocytes 10 % 0-12 Automated blood eosinophils/100 leukocytes 5 % 0-10 Automated blood basophils/100 leukocytes 0 % 0-10 Blood neutrophils automated count (number/volume) 3.1 10*3 1.8-7.8 Blood lymphocytes automated count (number/volume) 3.4 10*3 1.0-4.0 Blood monocytes automated count (number/volume) 0. 7 10*3 0.0-1.0 Automated eosinophil count 0.4 10*3/uL 0 .0-0.3 Automated blood basophil count (count/volume) 0.0 10*3/uL 0.0-0.1 PT panel in platelet poor plasma by coag ulation assay - 05/20/19 03:27 Prothrombin time (PT) in platelet poor plasma by coagu lation assay 22.1 s 12.2-14.7 INR in platelet poor plasma or blood by coagulation as say 1.8 0.8-1.4 Comprehensive metabolic panel - 05/20/19 03:27 Serum or plasma sodium measurement (moles/volume) 140 mmol/L 135-145 Serum or plasma potassium measurement (moles/volume) 3.9 mmol/L 3.6-5.0 Serum or plasma chloride measurement (moles/volume) 104 mmol/L 98-107 Carbon dioxide 23 mmol/L 21-32 Serum or plasma anion gap determination (moles/volume) 13 mmol/L 5-14 Serum or plasma urea nitrogen measurement (mass/volume ) 19 mg/dL 7-18 Serum or plasma creatinine measurement (mass/volume) 0.64 mg/dL 0.60-1.30 Serum or plasma urea nitrogen/creatinine mass ratio 30 NRG Serum or plasma creatinine measurement w ith calculation of estimated glomerular filtration rate > NRG Serum or plasma glucose measurement (mass/volume) 82 mg/dL 70-105 Serum or plasma calcium measurement (mass/volume) 9.1 mg/dL 8.5-10.1 Serum or plasma total bilirubin measurement (mass/volu me) 0.2 mg/dL 0.1-1.0 Serum or plasma alkaline phosphatase dio surement (enzymatic activity/volume) 135 U/L 40-136 Serum or plasma aspartate aminotransfera se measurement (enzymatic activity/volume) 30 U/L 5-34 Serum or plasma alanine aminotransferase measurement (enzymatic activity/volume) 40 U/L 0-55 Serum or plasma protein measurement (mass/volume) 6.9 g/dL 6.4-8.2 Serum or plasma albumin measurement (mass/volume) 3.6 g/dL 3.2-4.5 CALCIUM CORRECTED 9.4 mg/dL 8.5-10.1 Capillary blood glucose measurement by g lucometer (mass/volume) - 05/20/19 07:42 Capillary blood glucose measurement by glucometer (mas s/volume) 77 mg/dL 70-110 Capillary blood glucose measurement by g lucometer (mass/volume) - 05/20/19 11:41 Capillary blood glucose measurement by glucometer (mas s/volume) 86 mg/dL 70-110 Capillary blood glucose measurement by g lucometer (mass/volume) - 05/20/19 15:32 Capillary blood glucose measurement by glucometer (mas s/volume) 124 mg/dL 70-110 Capillary blood glucose measurement by g lucometer (mass/volume) - 05/20/19 20:31 Capillary blood glucose measurement by glucometer (mas s/volume) 104 mg/dL 70-110 Capillary blood glucose measurement by g lucometer (mass/volume) - 05/21/19 06:40 Capillary blood glucose measurement by glucometer (mas s/volume) 72 mg/dL 70-110 Capillary blood glucose measurement by g lucometer (mass/volume) - 05/21/19 11:14 Capillary blood glucose measurement by glucometer (mas s/volume) 115 mg/dL 70-110 PT panel in platelet poor plasma by coag ulation assay - 05/21/19 12:13 Prothrombin time (PT) in platelet poor plasma by coagu lation assay 20.7 s 12.2-14.7 INR in platelet poor plasma or blood by coagulation as say 1.7 0.8-1.4 Whole blood basic metabolic panel - 11/02 12:13 Serum or plasma sodium measurement (moles/volume) 142 mmol/L 135-145 Serum or plasma potassium measurement (moles/volume) 4.1 mmol/L 3.6-5.0 Serum or plasma chloride measurement (moles/volume) 104 mmol/L 98-107 Carbon dioxide 26 mmol/L 21-32 Serum or plasma anion gap determination (moles/volume) 12 mmol/L 5-14 Serum or plasma urea nitrogen measurement (mass/volume ) 14 mg/dL 7-18 Serum or plasma creatinine measurement (mass/volume) 0.67 mg/dL 0.60-1.30 Serum or plasma urea nitrogen/creatinine mass ratio 21 NRG Serum or plasma creatinine measurement w ith calculation of estimated glomerular filtration rate > NRG Serum or plasma glucose measurement (mass/volume) 66 mg/dL 70-105 Serum or plasma calcium measurement (mass/volume) 9.4 mg/dL 8.5-10.1 Complete blood count (CBC) with automate d white blood cell (WBC) differential - 05/29/19 19:59 Blood leukocytes automated count (number/volume) 7.9 10*3/uL 4.3-11.0 Blood erythrocytes automated count (number/volume) 4.82 10*6/uL 4.35-5.85 Venous blood hemoglobin measurement (mass/volume) 13.6 g/dL 11.5-16.0 Blood hematocrit (volume fraction) 41 % 35-52 Automated erythrocyte mean corpuscular volume 85 [ foz_us] 80-99 Automated erythrocyte mean corpuscular h emoglobin (mass per erythrocyte) 28 pg 25-34 Automated erythrocyte mean corpuscular h emoglobin concentration measurement (mass/volume) 33 g/dL 32-36 Automated erythrocyte distribution width ratio 16. 2 % 10.0- 14.5 Automated blood platelet count (count/volume) 339 10*3/uL 130-400 Automated blood platelet mean volume measurement 10.1 [foz_us] 7.4-10.4 Automated blood neutrophils/100 leukocytes 48 % 42-75 Automated blood lymphocytes/100 leukocytes 38 % 12-44 Blood monocytes/100 leukocytes 9 % 0-12 Automated blood eosinophils/100 leukocytes 5 % 0-10 Automated blood basophils/100 leukocytes 0 % 0-10 Blood neutrophils automated count (number/volume) 3.8 10*3 1.8-7.8 Blood lymphocytes automated count (number/volume) 3.0 10*3 1.0-4.0 Blood monocytes automated count (number/volume) 0. 7 10*3 0.0-1.0 Automated eosinophil count 0.4 10*3/uL 0 .0-0.3 Automated blood basophil count (count/volume) 0.0 10*3/uL 0.0-0.1 Comprehensive metabolic panel - 05/29/19 19:59 Serum or plasma sodium measurement (moles/volume) 136 mmol/L 135-145 Serum or plasma potassium measurement (moles/volume) 4.4 mmol/L 3.6-5.0 Serum or plasma chloride measurement (moles/volume) 98 mmol/L 98-107 Carbon dioxide 21 mmol/L 21-32 Serum or plasma anion gap determination (moles/volume) 17 mmol/L 5-14 Serum or plasma urea nitrogen measurement (mass/volume ) 15 mg/dL 7-18 Serum or plasma creatinine measurement (mass/volume) 0.80 mg/dL 0.60-1.30 Serum or plasma urea nitrogen/creatinine mass ratio 19 NRG Serum or plasma creatinine measurement w ith calculation of estimated glomerular filtration rate > NRG Serum or plasma glucose measurement (mass/volume) 149 mg/dL 70-105 Serum or plasma calcium measurement (mass/volume) 9.3 mg/dL 8.5-10.1 Serum or plasma total bilirubin measurement (mass/volu me) 0.1 mg/dL 0.1-1.0 Serum or plasma alkaline phosphatase dio surement (enzymatic activity/volume) 184 U/L 40-136 Serum or plasma aspartate aminotransfera se measurement (enzymatic activity/volume) 26 U/L 5-34 Serum or plasma alanine aminotransferase measurement (enzymatic activity/volume) 35 U/L 0-55 Serum or plasma protein measurement (mass/volume) 8.0 g/dL 6.4-8.2 Serum or plasma albumin measurement (mass/volume) 4.2 g/dL 3.2-4.5 CALCIUM CORRECTED 9.1 mg/dL 8.5-10.1 Magnesium - 05/29/19 19:59 Magnesium 1.8 mg/dL 1.6-2.4 PT panel in platelet poor plasma by coag ulation assay - 05/29/19 19:59 Prothrombin time (PT) in platelet poor plasma by coagu lation assay 28.6 s 12.2-14.7 INR in platelet poor plasma or blood by coagulation as say 2.6 0.8-1.4 Activated partial thromboplastin time (a PTT) in platelet poor plasma bycoagulation assay - 05/29/19 19:59 Activated partial thromboplastin time (a PTT) in platelet poor plasma bycoagulation assay 44 s 24-35 Myoglobin, serum - 05/29/19 19:59 Myoglobin, serum 18.9 ng/mL 10.0-92.0 Serum or plasma troponin i.cardiac measu rement (mass/volume) - 05/29/19 19:59 Serum or plasma troponin i.cardiac measurement (mass/v olume) < ng/mL <0.028 Complete urinalysis with reflex to cultu re - 05/29/19 20:46 Urine color determination YELLOW NRG Urine clarity determination CLEAR NR G Urine pH measurement by test strip 6.5 5-9 Specific gravity of urine by test strip <= 1.016-1.022 Urine protein assay by test strip, semi-quantitative NEGATIVE NEGATIVE Urine glucose detection by automated test strip NE GATIVE NEGATIVE Erythrocytes detection in urine sediment by light micr oscopy TRACE-I NEGATIVE Urine ketones detection by automated test strip NE GATIVE NEGATIVE Urine nitrite detection by test strip NEGATIVE NEGATIVE Urine total bilirubin detection by test strip NEGA TIVE NEGATIVE Urine urobilinogen measurement by automated test strip (mass/volume) 0.2 mg/dL < = 1.0 Urine leukocyte esterase detection by dipstick 3+ NEGATIVE Automated urine sediment erythrocyte cou nt by microscopy (number/high power field) NONE NRG Automated urine sediment leukocyte count by microscopy (number/high power field) [HPF] NRG Bacteria detection in urine sediment by light microsco py TRACE NRG Crystals detection in urine sediment by light microsco py NONE NRG Casts detection in urine sediment by light microscopy NONE NRG Mucus detection in urine sediment by light microscopy SMALL NRG Complete urinalysis with reflex to culture YES NRG Bacterial urine culture - 05/29/19 20:46 Bacterial urine culture PROGRESS NRG COLONY COUNT . NRG FTX;REPORTABLE SUSCEPTIBILITY REPORTED 06/02 11:45 NRG FREE TEXT ENTRY 2 PRELIM RAPID ID TEST AT [facility] 05/31 14:15 NRG FREE TEXT ENTRY 3 RML CONFIRMED ID 05/31/19 15:05 NRG Dirithromycin susceptibility test by dis k diffusion - 05/29/19 20:46 Gentamicin susceptibility test by minimum inhibitory c oncentration <= NRG Levofloxacin susceptibility test by minimum inhibitory concentration > NRG Tobramycin susceptibility test by minimum inhibitory c oncentration <= NRG Piperacillin/tazobactam susceptibility t est by minimum inhibitory concentration = NRG Ciprofloxacin susceptibility test by minimum inhibitor y concentration > NRG Meropenem susceptibility test by minimum inhibitory co ncentration 0.5 NRG Aztreonam susceptibility test by minimum inhibitory co ncentration > NRG Cefepime susceptibility test by minimum inhibitory con centration 8 NRG Imipenem susceptibility test by minimum inhibitory con centration 1 NRG Ceftazidime susceptibility test by minimum inhibitory concentration 8 NRG Dirithromycin susceptibility test by dis k diffusion - 05/29/19 20:46 Gentamicin susceptibility test by minimum inhibitory c oncentration 4 NRG Levofloxacin susceptibility test by minimum inhibitory concentration > NRG Tobramycin susceptibility test by minimum inhibitory c oncentration <= NRG Piperacillin/tazobactam susceptibility t est by minimum inhibitory concentration = NRG Ciprofloxacin susceptibility test by minimum inhibitor y concentration > NRG Meropenem susceptibility test by minimum inhibitory co ncentration 8 NRG Aztreonam susceptibility test by minimum inhibitory co ncentration 8 NRG Cefepime susceptibility test by minimum inhibitory con centration 8 NRG Imipenem susceptibility test by minimum inhibitory con centration > NRG Ceftazidime susceptibility test by minimum inhibitory concentration 8 NRG Serum or plasma troponin i.cardiac measu rement (mass/volume) - 05/29/19 22:10 Serum or plasma troponin i.cardiac measurement (mass/v olume) < ng/mL <0.028 Methicillin resistant Staphylococcus aur eus (MRSA) screening culture - 05/29/19 22:45 Methicillin resistant Staphylococcus aureus (MRSA) scr eening culture NEG NRG Capillary blood glucose measurement by g lucometer (mass/volume) - 05/29/19 23:02 Capillary blood glucose measurement by glucometer (mas s/volume) 74 mg/dL 70-110 Complete blood count (CBC) with automate d white blood cell (WBC) differential - 05/30/19 02:53 Blood leukocytes automated count (number/volume) 8.0 10*3/uL 4.3-11.0 Blood erythrocytes automated count (number/volume) 4.39 10*6/uL 4.35-5.85 Venous blood hemoglobin measurement (mass/volume) 12.2 g/dL 11.5-16.0 Blood hematocrit (volume fraction) 38 % 35-52 Automated erythrocyte mean corpuscular volume 85 [ foz_us] 80-99 Automated erythrocyte mean corpuscular h emoglobin (mass per erythrocyte) 28 pg 25-34 Automated erythrocyte mean corpuscular h emoglobin concentration measurement (mass/volume) 33 g/dL 32-36 Automated erythrocyte distribution width ratio 16. 0 % 10.0- 14.5 Automated blood platelet count (count/volume) 283 10*3/uL 130-400 Automated blood platelet mean volume measurement 10.5 [foz_us] 7.4-10.4 Automated blood neutrophils/100 leukocytes 46 % 42-75 Automated blood lymphocytes/100 leukocytes 41 % 12-44 Blood monocytes/100 leukocytes 9 % 0-12 Automated blood eosinophils/100 leukocytes 5 % 0-10 Automated blood basophils/100 leukocytes 0 % 0-10 Blood neutrophils automated count (number/volume) 3.6 10*3 1.8-7.8 Blood lymphocytes automated count (number/volume) 3.2 10*3 1.0-4.0 Blood monocytes automated count (number/volume) 0. 7 10*3 0.0-1.0 Automated eosinophil count 0.4 10*3/uL 0 .0-0.3 Automated blood basophil count (count/volume) 0.0 10*3/uL 0.0-0.1 Whole blood basic metabolic panel - 05/16 10/02 02:53 Serum or plasma sodium measurement (moles/volume) 139 mmol/L 135-145 Serum or plasma potassium measurement (moles/volume) 4.3 mmol/L 3.6-5.0 Serum or plasma chloride measurement (moles/volume) 102 mmol/L 98-107 Carbon dioxide 24 mmol/L 21-32 Serum or plasma anion gap determination (moles/volume) 13 mmol/L 5-14 Serum or plasma urea nitrogen measurement (mass/volume ) 16 mg/dL 7-18 Serum or plasma creatinine measurement (mass/volume) 0.73 mg/dL 0.60-1.30 Serum or plasma urea nitrogen/creatinine mass ratio 22 NRG Serum or plasma creatinine measurement w ith calculation of estimated glomerular filtration rate > NRG Serum or plasma glucose measurement (mass/volume) 115 mg/dL 70-105 Serum or plasma calcium measurement (mass/volume) 9.1 mg/dL 8.5-10.1 Serum or plasma phosphate measurement (m ass/volume) - 05/30/19 02:53 Serum or plasma phosphate measurement (mass/volume) 4.2 mg/dL 2.3-4.7 Magnesium - 05/30/19 02:53 Magnesium 1.8 mg/dL 1.6-2.4 Lipid 1996 panel - 05/30/19 02:53 Serum or plasma triglyceride measurement (mass/volume) 37 mg/dL <150 Serum or plasma cholesterol measurement (mass/volume) 115 mg/dL < 200 Serum or plasma cholesterol in HDL measurement (mass/v olume) 57 mg/dL 40-60 Cholesterol in LDL [mass/volume] in serum or plasma by direct assay 36 mg/dL 1-129 Serum or plasma cholesterol in VLDL measurement (mass/ volume) 7 mg/dL 5-40 PT panel in platelet poor plasma by coag ulation assay - 05/30/19 02:53 Prothrombin time (PT) in platelet poor plasma by coagu lation assay 30.8 s 12.2-14.7 INR in platelet poor plasma or blood by coagulation as say 2.8 0.8-1.4 Whole blood basic metabolic panel - 05/16 10/02 10:40 Serum or plasma sodium measurement (moles/volume) 140 mmol/L 135-145 Serum or plasma potassium measurement (moles/volume) 4.5 mmol/L 3.6-5.0 Serum or plasma chloride measurement (moles/volume) 102 mmol/L 98-107 Carbon dioxide 29 mmol/L 21-32 Serum or plasma anion gap determination (moles/volume) 9 mmol/L 5-14 Serum or plasma urea nitrogen measurement (mass/volume ) 15 mg/dL 7-18 Serum or plasma creatinine measurement (mass/volume) 0.78 mg/dL 0.60-1.30 Serum or plasma urea nitrogen/creatinine mass ratio 19 NRG Serum or plasma creatinine measurement w ith calculation of estimated glomerular filtration rate > NRG Serum or plasma glucose measurement (mass/volume) 101 mg/dL 70-105 Serum or plasma calcium measurement (mass/volume) 9.2 mg/dL 8.5-10.1 Capillary blood glucose measurement by g lucometer (mass/volume) - 05/30/19 11:56 Capillary blood glucose measurement by glucometer (mas s/volume) 120 mg/dL 70-110 Capillary blood glucose measurement by g lucometer (mass/volume) - 05/30/19 16:51 Capillary blood glucose measurement by glucometer (mas s/volume) 103 mg/dL 70-110 Capillary blood glucose measurement by g lucometer (mass/volume) - 05/30/19 19:23 Capillary blood glucose measurement by glucometer (mas s/volume) 104 mg/dL 70-110 Complete blood count (CBC) with automate d white blood cell (WBC) differential - 05/31/19 03:12 Blood leukocytes automated count (number/volume) 7.6 10*3/uL 4.3-11.0 Blood erythrocytes automated count (number/volume) 4.20 10*6/uL 4.35-5.85 Venous blood hemoglobin measurement (mass/volume) 11.6 g/dL 11.5-16.0 Blood hematocrit (volume fraction) 36 % 35-52 Automated erythrocyte mean corpuscular volume 86 [ foz_us] 80-99 Automated erythrocyte mean corpuscular h emoglobin (mass per erythrocyte) 28 pg 25-34 Automated erythrocyte mean corpuscular h emoglobin concentration measurement (mass/volume) 32 g/dL 32-36 Automated erythrocyte distribution width ratio 16. 4 % 10.0- 14.5 Automated blood platelet count (count/volume) 257 10*3/uL 130-400 Automated blood platelet mean volume measurement 10.0 [foz_us] 7.4-10.4 Automated blood neutrophils/100 leukocytes 44 % 42-75 Automated blood lymphocytes/100 leukocytes 41 % 12-44 Blood monocytes/100 leukocytes 9 % 0-12 Automated blood eosinophils/100 leukocytes 5 % 0-10 Automated blood basophils/100 leukocytes 0 % 0-10 Blood neutrophils automated count (number/volume) 3.4 10*3 1.8-7.8 Blood lymphocytes automated count (number/volume) 3.2 10*3 1.0-4.0 Blood monocytes automated count (number/volume) 0. 7 10*3 0.0-1.0 Automated eosinophil count 0.4 10*3/uL 0 .0-0.3 Automated blood basophil count (count/volume) 0.0 10*3/uL 0.0-0.1 PT panel in platelet poor plasma by coag ulation assay - 05/31/19 03:12 Prothrombin time (PT) in platelet poor plasma by coagu lation assay 32.5 s 12.2-14.7 INR in platelet poor plasma or blood by coagulation as say 3.0 0.8-1.4 Comprehensive metabolic panel - 05/31/19 03:12 Serum or plasma sodium measurement (moles/volume) 139 mmol/L 135-145 Serum or plasma potassium measurement (moles/volume) 4.1 mmol/L 3.6-5.0 Serum or plasma chloride measurement (moles/volume) 102 mmol/L 98-107 Carbon dioxide 23 mmol/L 21-32 Serum or plasma anion gap determination (moles/volume) 14 mmol/L 5-14 Serum or plasma urea nitrogen measurement (mass/volume ) 18 mg/dL 7-18 Serum or plasma creatinine measurement (mass/volume) 0.78 mg/dL 0.60-1.30 Serum or plasma urea nitrogen/creatinine mass ratio 23 NRG Serum or plasma creatinine measurement w ith calculation of estimated glomerular filtration rate > NRG Serum or plasma glucose measurement (mass/volume) 90 mg/dL 70-105 Serum or plasma calcium measurement (mass/volume) 9.1 mg/dL 8.5-10.1 Serum or plasma total bilirubin measurement (mass/volu me) 0.1 mg/dL 0.1-1.0 Serum or plasma alkaline phosphatase dio surement (enzymatic activity/volume) 138 U/L 40-136 Serum or plasma aspartate aminotransfera se measurement (enzymatic activity/volume) 21 U/L 5-34 Serum or plasma alanine aminotransferase measurement (enzymatic activity/volume) 28 U/L 0-55 Serum or plasma protein measurement (mass/volume) 6.6 g/dL 6.4-8.2 Serum or plasma albumin measurement (mass/volume) 3.6 g/dL 3.2-4.5 CALCIUM CORRECTED 9.4 mg/dL 8.5-10.1 Serum or plasma phosphate measurement (m ass/volume) - 05/31/19 03:12 Serum or plasma phosphate measurement (mass/volume) 4.1 mg/dL 2.3-4.7 Magnesium - 05/31/19 03:12 Magnesium 1.8 mg/dL 1.6-2.4 Capillary blood glucose measurement by g lucometer (mass/volume) - 05/31/19 11:25 Capillary blood glucose measurement by glucometer (mas s/volume) 106 mg/dL 70-110 Capillary blood glucose measurement by g lucometer (mass/volume) - 05/31/19 14:49 Capillary blood glucose measurement by glucometer (mas s/volume) 134 mg/dL 70-110 Capillary blood glucose measurement by g lucometer (mass/volume) - 05/31/19 17:13 Capillary blood glucose measurement by glucometer (mas s/volume) 108 mg/dL 70-110 Capillary blood glucose measurement by g lucometer (mass/volume) - 05/31/19 20:25 Capillary blood glucose measurement by glucometer (mas s/volume) 220 mg/dL 70-110 PT panel in platelet poor plasma by coag ulation assay - 06/01/19 03:27 Prothrombin time (PT) in platelet poor plasma by coagu lation assay 27.1 s 12.2-14.7 INR in platelet poor plasma or blood by coagulation as say 2.4 0.8-1.4 Complete blood count (CBC) with automate d white blood cell (WBC) differential - 06/01/19 03:27 Blood leukocytes automated count (number/volume) 6.2 10*3/uL 4.3-11.0 Blood erythrocytes automated count (number/volume) 4.23 10*6/uL 4.35-5.85 Venous blood hemoglobin measurement (mass/volume) 11.8 g/dL 11.5-16.0 Blood hematocrit (volume fraction) 36 % 35-52 Automated erythrocyte mean corpuscular volume 85 [ foz_us] 80-99 Automated erythrocyte mean corpuscular h emoglobin (mass per erythrocyte) 28 pg 25-34 Automated erythrocyte mean corpuscular h emoglobin concentration measurement (mass/volume) 33 g/dL 32-36 Automated erythrocyte distribution width ratio 16. 2 % 10.0- 14.5 Automated blood platelet count (count/volume) 270 10*3/uL 130-400 Automated blood platelet mean volume measurement 9.8 [foz_us] 7.4-10.4 Automated blood neutrophils/100 leukocytes 41 % 42-75 Automated blood lymphocytes/100 leukocytes 40 % 12-44 Blood monocytes/100 leukocytes 12 % 0-12 Automated blood eosinophils/100 leukocytes 7 % 0-10 Automated blood basophils/100 leukocytes 0 % 0-10 Blood neutrophils automated count (number/volume) 2.5 10*3 1.8-7.8 Blood lymphocytes automated count (number/volume) 2.5 10*3 1.0-4.0 Blood monocytes automated count (number/volume) 0. 7 10*3 0.0-1.0 Automated eosinophil count 0.4 10*3/uL 0 .0-0.3 Automated blood basophil count (count/volume) 0.0 10*3/uL 0.0-0.1 Comprehensive metabolic panel - 06/01/19 03:27 Serum or plasma sodium measurement (moles/volume) 140 mmol/L 135-145 Serum or plasma potassium measurement (moles/volume) 3.9 mmol/L 3.6-5.0 Serum or plasma chloride measurement (moles/volume) 104 mmol/L 98-107 Carbon dioxide 26 mmol/L 21-32 Serum or plasma anion gap determination (moles/volume) 10 mmol/L 5-14 Serum or plasma urea nitrogen measurement (mass/volume ) 17 mg/dL 7-18 Serum or plasma creatinine measurement (mass/volume) 0.69 mg/dL 0.60-1.30 Serum or plasma urea nitrogen/creatinine mass ratio 25 NRG Serum or plasma creatinine measurement w ith calculation of estimated glomerular filtration rate > NRG Serum or plasma glucose measurement (mass/volume) 71 mg/dL 70-105 Serum or plasma calcium measurement (mass/volume) 9.2 mg/dL 8.5-10.1 Serum or plasma total bilirubin measurement (mass/volu me) 0.1 mg/dL 0.1-1.0 Serum or plasma alkaline phosphatase dio surement (enzymatic activity/volume) 134 U/L 40-136 Serum or plasma aspartate aminotransfera se measurement (enzymatic activity/volume) 19 U/L 5-34 Serum or plasma alanine aminotransferase measurement (enzymatic activity/volume) 25 U/L 0-55 Serum or plasma protein measurement (mass/volume) 6.9 g/dL 6.4-8.2 Serum or plasma albumin measurement (mass/volume) 3.7 g/dL 3.2-4.5 CALCIUM CORRECTED 9.4 mg/dL 8.5-10.1 Serum or plasma phosphate measurement (m ass/volume) - 06/01/19 03:27 Serum or plasma phosphate measurement (mass/volume) 4.2 mg/dL 2.3-4.7 Magnesium - 06/01/19 03:27 Magnesium 1.9 mg/dL 1.6-2.4 Capillary blood glucose measurement by g lucometer (mass/volume) - 06/01/19 09:42 Capillary blood glucose measurement by glucometer (mas s/volume) 158 mg/dL 70-110 Capillary blood glucose measurement by g lucometer (mass/volume) - 06/01/19 14:58 Capillary blood glucose measurement by glucometer (mas s/volume) 109 mg/dL 70-110 Capillary blood glucose measurement by g lucometer (mass/volume) - 06/01/19 19:34 Capillary blood glucose measurement by glucometer (mas s/volume) 178 mg/dL 70-110 Complete blood count (CBC) with automate d white blood cell (WBC) differential - 06/02/19 03:35 Blood leukocytes automated count (number/volume) 6.2 10*3/uL 4.3-11.0 Blood erythrocytes automated count (number/volume) 4.32 10*6/uL 4.35-5.85 Venous blood hemoglobin measurement (mass/volume) 12.2 g/dL 11.5-16.0 Blood hematocrit (volume fraction) 37 % 35-52 Automated erythrocyte mean corpuscular volume 85 [ foz_us] 80-99 Automated erythrocyte mean corpuscular h emoglobin (mass per erythrocyte) 28 pg 25-34 Automated erythrocyte mean corpuscular h emoglobin concentration measurement (mass/volume) 33 g/dL 32-36 Automated erythrocyte distribution width ratio 16. 3 % 10.0- 14.5 Automated blood platelet count (count/volume) 260 10*3/uL 130-400 Automated blood platelet mean volume measurement 9.5 [foz_us] 7.4-10.4 Automated blood neutrophils/100 leukocytes 41 % 42-75 Automated blood lymphocytes/100 leukocytes 43 % 12-44 Blood monocytes/100 leukocytes 10 % 0-12 Automated blood eosinophils/100 leukocytes 6 % 0-10 Automated blood basophils/100 leukocytes 0 % 0-10 Blood neutrophils automated count (number/volume) 2.6 10*3 1.8-7.8 Blood lymphocytes automated count (number/volume) 2.7 10*3 1.0-4.0 Blood monocytes automated count (number/volume) 0. 6 10*3 0.0-1.0 Automated eosinophil count 0.4 10*3/uL 0 .0-0.3 Automated blood basophil count (count/volume) 0.0 10*3/uL 0.0-0.1 Comprehensive metabolic panel - 06/02/19 03:35 Serum or plasma sodium measurement (moles/volume) 142 mmol/L 135-145 Serum or plasma potassium measurement (moles/volume) 3.8 mmol/L 3.6-5.0 Serum or plasma chloride measurement (moles/volume) 107 mmol/L 98-107 Carbon dioxide 22 mmol/L 21-32 Serum or plasma anion gap determination (moles/volume) 13 mmol/L 5-14 Serum or plasma urea nitrogen measurement (mass/volume ) 15 mg/dL 7-18 Serum or plasma creatinine measurement (mass/volume) 0.67 mg/dL 0.60-1.30 Serum or plasma urea nitrogen/creatinine mass ratio 22 NRG Serum or plasma creatinine measurement w ith calculation of estimated glomerular filtration rate > NRG Serum or plasma glucose measurement (mass/volume) 82 mg/dL 70-105 Serum or plasma calcium measurement (mass/volume) 9.1 mg/dL 8.5-10.1 Serum or plasma total bilirubin measurement (mass/volu me) 0.1 mg/dL 0.1-1.0 Serum or plasma alkaline phosphatase dio surement (enzymatic activity/volume) 130 U/L 40-136 Serum or plasma aspartate aminotransfera se measurement (enzymatic activity/volume) 23 U/L 5-34 Serum or plasma alanine aminotransferase measurement (enzymatic activity/volume) 27 U/L 0-55 Serum or plasma protein measurement (mass/volume) 7.0 g/dL 6.4-8.2 Serum or plasma albumin measurement (mass/volume) 3.8 g/dL 3.2-4.5 CALCIUM CORRECTED 9.3 mg/dL 8.5-10.1 PT panel in platelet poor plasma by coag ulation assay - 06/02/19 03:35 Prothrombin time (PT) in platelet poor plasma by coagu lation assay 25.5 s 12.2-14.7 INR in platelet poor plasma or blood by coagulation as say 2.2 0.8-1.4 Capillary blood glucose measurement by g lucometer (mass/volume) - 06/02/19 09:34 Capillary blood glucose measurement by glucometer (mas s/volume) 168 mg/dL 70-110 Automated blood complete blood count (he mogram) panel - 06/14/19 07:05 Blood leukocytes automated count (number/volume) 7.9 10*3/uL 4.3-11.0 Blood erythrocytes automated count (number/volume) 4.70 10*6/uL 4.35-5.85 Venous blood hemoglobin measurement (mass/volume) 13.0 g/dL 11.5-16.0 Blood hematocrit (volume fraction) 40 % 35-52 Automated erythrocyte mean corpuscular volume 85 [ foz_us] 80-99 Automated erythrocyte mean corpuscular h emoglobin (mass per erythrocyte) 28 pg 25-34 Automated erythrocyte mean corpuscular h emoglobin concentration measurement (mass/volume) 33 g/dL 32-36 Automated erythrocyte distribution width ratio 15. 7 % 10.0- 14.5 Automated blood platelet count (count/volume) 275 10*3/uL 130-400 Automated blood platelet mean volume measurement 9.7 [foz_us] 7.4-10.4 Comprehensive metabolic panel - 06/14/19 07:05 Serum or plasma sodium measurement (moles/volume) 139 mmol/L 135-145 Serum or plasma potassium measurement (moles/volume) 4.0 mmol/L 3.6-5.0 Serum or plasma chloride measurement (moles/volume) 101 mmol/L 98-107 Carbon dioxide 24 mmol/L 21-32 Serum or plasma anion gap determination (moles/volume) 14 mmol/L 5-14 Serum or plasma urea nitrogen measurement (mass/volume ) 16 mg/dL 7-18 Serum or plasma creatinine measurement (mass/volume) 0.73 mg/dL 0.60-1.30 Serum or plasma urea nitrogen/creatinine mass ratio 22 NRG Serum or plasma creatinine measurement w ith calculation of estimated glomerular filtration rate > NRG Serum or plasma glucose measurement (mass/volume) 134 mg/dL 70-105 Serum or plasma calcium measurement (mass/volume) 9.5 mg/dL 8.5-10.1 Serum or plasma total bilirubin measurement (mass/volu me) 0.2 mg/dL 0.1-1.0 Serum or plasma alkaline phosphatase dio surement (enzymatic activity/volume) 170 U/L 40-136 Serum or plasma aspartate aminotransfera se measurement (enzymatic activity/volume) 28 U/L 5-34 Serum or plasma alanine aminotransferase measurement (enzymatic activity/volume) 39 U/L 0-55 Serum or plasma protein measurement (mass/volume) 7.9 g/dL 6.4-8.2 Serum or plasma albumin measurement (mass/volume) 4.2 g/dL 3.2-4.5 CALCIUM CORRECTED 9.3 mg/dL 8.5-10.1 PT panel in platelet poor plasma by coag ulation assay - 06/14/19 07:05 Prothrombin time (PT) in platelet poor plasma by coagu lation assay 19.7 s 12.2-14.7 INR in platelet poor plasma or blood by coagulation as say 1.6 0.8-1.4 Activated partial thromboplastin time (a PTT) in platelet poor plasma bycoagulation assay - 06/14/19 07:05 Activated partial thromboplastin time (a PTT) in platelet poor plasma bycoagulation assay 33 s 24-35 Methicillin resistant Staphylococcus aur eus (MRSA) screening culture - 06/14/19 07:05 Methicillin resistant Staphylococcus aureus (MRSA) scr eening culture NEG NRG Complete urinalysis with reflex to cultu re - 06/21/19 21:39 Urine color determination YELLOW NRG Urine clarity determination CLEAR NR G Urine pH measurement by test strip 8.0 5-9 Specific gravity of urine by test strip 1.010 1.016-1.022 Urine protein assay by test strip, semi-quantitative NEGATIVE NEGATIVE Urine glucose detection by automated test strip NE GATIVE NEGATIVE Erythrocytes detection in urine sediment by light micr oscopy NEGATIVE NEGATIVE Urine ketones detection by automated test strip NE GATIVE NEGATIVE Urine nitrite detection by test strip NEGATIVE NEGATIVE Urine total bilirubin detection by test strip NEGA TIVE NEGATIVE Urine urobilinogen measurement by automated test strip (mass/volume) 0.2 mg/dL < = 1.0 Urine leukocyte esterase detection by dipstick 3+ NEGATIVE Automated urine sediment erythrocyte cou nt by microscopy (number/high power field) NONE NRG Automated urine sediment leukocyte count by microscopy (number/high power field) [HPF] NRG Bacteria detection in urine sediment by light microsco py FEW NRG Crystals detection in urine sediment by light microsco py NONE NRG Casts detection in urine sediment by light microscopy NONE NRG Mucus detection in urine sediment by light microscopy NEGATIVE NRG Complete urinalysis with reflex to culture YES NRG Bacterial urine culture - 06/21/19 21:39 Bacterial urine culture [id number] NRG COLONY COUNT 50,000 CFU/ML NRG FTX;REPORTABLE SUSCEPTIBILITY REPORTED 06/26 09:45 NRG FREE TEXT ENTRY 3 PRELIM RAPID ID TEST AT [facility] 06/22 15:50 NRG FREE TEXT ENTRY 4 RML CONFIRMED ID 06/23/19 11:05 NRG Dirithromycin susceptibility test by dis k diffusion - 06/21/19 21:39 Gentamicin susceptibility test by minimum inhibitory c oncentration <= NRG Levofloxacin susceptibility test by minimum inhibitory concentration > NRG Tobramycin susceptibility test by minimum inhibitory c oncentration <= NRG Piperacillin/tazobactam susceptibility t est by minimum inhibitory concentration = NRG Ciprofloxacin susceptibility test by minimum inhibitor y concentration > NRG Meropenem susceptibility test by minimum inhibitory co ncentration 1 NRG Aztreonam susceptibility test by minimum inhibitory co ncentration > NRG Cefepime susceptibility test by minimum inhibitory con centration 8 NRG Imipenem susceptibility test by minimum inhibitory con centration 1 NRG Ceftazidime susceptibility test by minimum inhibitory concentration 8 NRG Dirithromycin susceptibility test by dis k diffusion - 06/21/19 21:39 Gentamicin susceptibility test by minimum inhibitory c oncentration <= NRG Levofloxacin susceptibility test by minimum inhibitory concentration > NRG Tobramycin susceptibility test by minimum inhibitory c oncentration <= NRG Piperacillin/tazobactam susceptibility t est by minimum inhibitory concentration = NRG Ciprofloxacin susceptibility test by minimum inhibitor y concentration > NRG Meropenem susceptibility test by minimum inhibitory co ncentration 8 NRG Aztreonam susceptibility test by minimum inhibitory co ncentration > NRG Cefepime susceptibility test by minimum inhibitory con centration 16 NRG Amikacin susceptibility test by minimum inhibitory con centration <= NRG Imipenem susceptibility test by minimum inhibitory con centration > NRG Ceftazidime susceptibility test by minimum inhibitory concentration 8 NRG Complete blood count (CBC) with automate d white blood cell (WBC) differential - 06/21/19 21:40 Blood leukocytes automated count (number/volume) 9.4 10*3/uL 4.3-11.0 Blood erythrocytes automated count (number/volume) 4.97 10*6/uL 4.35-5.85 Venous blood hemoglobin measurement (mass/volume) 13.8 g/dL 11.5-16.0 Blood hematocrit (volume fraction) 42 % 35-52 Automated erythrocyte mean corpuscular volume 84 [ foz_us] 80-99 Automated erythrocyte mean corpuscular h emoglobin (mass per erythrocyte) 28 pg 25-34 Automated erythrocyte mean corpuscular h emoglobin concentration measurement (mass/volume) 33 g/dL 32-36 Automated erythrocyte distribution width ratio 15. 3 % 10.0- 14.5 Automated blood platelet count (count/volume) 299 10*3/uL 130-400 Automated blood platelet mean volume measurement 9.7 [foz_us] 7.4-10.4 Automated blood neutrophils/100 leukocytes 54 % 42-75 Automated blood lymphocytes/100 leukocytes 34 % 12-44 Blood monocytes/100 leukocytes 8 % 0-12 Automated blood eosinophils/100 leukocytes 3 % 0-10 Automated blood basophils/100 leukocytes 0 % 0-10 Blood neutrophils automated count (number/volume) 5.0 10*3 1.8-7.8 Blood lymphocytes automated count (number/volume) 3.2 10*3 1.0-4.0 Blood monocytes automated count (number/volume) 0. 8 10*3 0.0-1.0 Automated eosinophil count 0.3 10*3/uL 0 .0-0.3 Automated blood basophil count (count/volume) 0.0 10*3/uL 0.0-0.1 Comprehensive metabolic panel - 06/21/19 21:40 Serum or plasma sodium measurement (moles/volume) 141 mmol/L 135-145 Serum or plasma potassium measurement (moles/volume) 3.9 mmol/L 3.6-5.0 Serum or plasma chloride measurement (moles/volume) 104 mmol/L 98-107 Carbon dioxide 24 mmol/L 21-32 Serum or plasma anion gap determination (moles/volume) 13 mmol/L 5-14 Serum or plasma urea nitrogen measurement (mass/volume ) 15 mg/dL 7-18 Serum or plasma creatinine measurement (mass/volume) 0.75 mg/dL 0.60-1.30 Serum or plasma urea nitrogen/creatinine mass ratio 20 NRG Serum or plasma creatinine measurement w ith calculation of estimated glomerular filtration rate > NRG Serum or plasma glucose measurement (mass/volume) 61 mg/dL 70-105 Serum or plasma calcium measurement (mass/volume) 9.9 mg/dL 8.5-10.1 Serum or plasma total bilirubin measurement (mass/volu me) 0.1 mg/dL 0.1-1.0 Serum or plasma alkaline phosphatase dio surement (enzymatic activity/volume) 190 U/L 40-136 Serum or plasma aspartate aminotransfera se measurement (enzymatic activity/volume) 28 U/L 5-34 Serum or plasma alanine aminotransferase measurement (enzymatic activity/volume) 43 U/L 0-55 Serum or plasma protein measurement (mass/volume) 8.3 g/dL 6.4-8.2 Serum or plasma albumin measurement (mass/volume) 4.3 g/dL 3.2-4.5 CALCIUM CORRECTED 9.7 mg/dL 8.5-10.1 Magnesium - 06/21/19 21:40 Magnesium 1.9 mg/dL 1.6-2.4 PT panel in platelet poor plasma by coag ulation assay - 06/21/19 21:40 Prothrombin time (PT) in platelet poor plasma by coagu lation assay 25.3 s 12.2-14.7 INR in platelet poor plasma or blood by coagulation as say 2.2 0.8-1.4 Activated partial thromboplastin time (a PTT) in platelet poor plasma bycoagulation assay - 06/21/19 21:40 Activated partial thromboplastin time (a PTT) in platelet poor plasma bycoagulation assay 40 s 24-35 Myoglobin, serum - 06/21/19 21:40 Myoglobin, serum 21.8 ng/mL 10.0-92.0 Serum or plasma troponin i.cardiac measu rement (mass/volume) - 06/21/19 21:40 Serum or plasma troponin i.cardiac measurement (mass/v olume) < ng/mL <0.028 Serum or plasma lithium measurement (mol es/volume) - 06/21/19 21:40 BNP PT 21.7 pg/mL <100.0 Encounters ACCT No. Visit Date/Time Discharge Status Pt. Type Provider Facility Loc./Unit Complaint [id number] 06/21/2019 21:26:00 020 01:20:00 DIS Emergency SIVAKUMAR CONTRERAS MD Via [facility] ER A-FIB [id number] 06/14/2019 06:45:00 11:45:00 DIS Outpatient Janiya CORDOVA MD [facility] CATH AFIB [id number] 05/29/2019 21:41:00 020 13:15:00 DIS Inpatient ELISHA MCKNIGHT, SAWYER Oscar [facility] CSD A-FIB,CHEST PAIN,UTI [id number] 05/18/2019 17:24:00 020 14:24:00 DIS Inpatient JAVIER WATSON MD [facility] ICU AFIB W RVR [id number] 05/16/2019 19:50:00 01:04:00 DIS Emergency DIANE GRAJEDA, SIVAKUMAR Isbell [facility] ER AFIB [id number] 04/20/2019 18:00:00 13:30:00 DIS Inpatient SAWYER TELLO DO, V [facility] ICU AFIB RVR [id number] 04/13/2019 03:59:00 15:05:00 DIS Inpatient SAWYER TELLO DO, V [facility] 4TH A-FIB RVR, CHEST PAIN [id number] 04/11/2019 11:00:00 23:59:59 CLS Preadmit CHARLY JOSE MD [facility] CR AMI,STENT [id number] 03/30/2019 11:00:00 23:59:59 CLS Preadmit CHARLY JOSE MD [facility] CR STENT [id number] 01/12/2019 11:37:00 00:01:00 DIS Outpatient CHARLY JOSE MD [facility] CR STENT [id number] 03/10/2019 18:02:00 21:56:00 DIS Emergency RAFAELA GRAJEDA, SAMANTHA Roberts [facility] ER NECK/BACK PAIN [id number] 03/06/2019 15:40:00 12:25:00 DIS Inpatient TELLO SAWYER Moore [facility] ICU AFIB [id number] 01/17/2019 22:57:00 01:33:00 DIS Emergency DIANE GRAJEDA, SIVAKUMAR Isbell [facility] ER N/V [id number] 12/30/2018 22:18:00 01:59:00 DIS Emergency CALLUM ALCAZAR DO a [facility] ER SOA,DIZZY [id number] 12/20/2018 21:49:00 09:53:00 DIS Inpatient TERRY BENNETT MD [facility] ICU CHEST PAIN [id number] 11/30/2018 14:55:00 13:43:00 DIS Inpatient ELISHA MCKNIGHT, SAWYER Moore [facility] ICU CP WITH ELEVATED TROPON IN,A FIB WITH RVR [id number] 11/01/2018 08:45:00 23:59:59 CLS Preadmit TALYA VALVERDE [facility] CARD AF,JENNA,SOB,HTN [id number] 11/01/2018 08:13:00 23:59:59 CLS Outpatient REBECA GRAJEDA, CHARLY Isbell [facility] CATH AFIB [id number] 10/30/2018 15:04:00 23:59:59 CLS Outpatient JOSE DE JESUS GRAJEDA, GAVINO Carbajal [facility] RAD SCREENING [id number] 03/21/2018 20:10:00 06:54:00 DIS Outpatient FRANKLIN SAMPSON APRN [facility] SLEEP SUSPECTED SLEEP APNEA [id number] 03/08/2018 12:59:00 23:59:59 CLS Outpatient FRANKLIN SAMPSON APRN [facility] RT HISTORY OF DVT [id number] 02/27/2018 15:46:00 23:59:59 CLS Outpatient FRANKLIN SAMPSON APRN [facility] RAD DVT,SOB [id number] 02/09/2018 08:38:00 23:59:59 CLS Outpatient GERARD GRAJEDA, NATE Mitchell [facility] RAD ROTATOR CUFF TEAR PART IAL LEFT [id number] 01/18/2018 10:43:00 12:23:00 DIS Emergency ADONAY DUARTE EDGE BURNISHER [facility] ER POSS AFIB [id number] 01/13/2018 10:47:00 23:59:59 CLS Outpatient MAY VALVERDE [facility] LAB HYPERTENSIO N [id number] 01/11/2018 14:06:00 018 23:59:59 CLS Outpatient REBECA GRAJEDA, CHARLY Isbell [facility] CARD I48.0 AF [id number] 01/03/2018 16:03:00 018 23:59:59 CLS Outpatient DELIA TRIANA MD [facility] RAD DYSPNEA ON EXERTION [id number] 12/13/2017 13:04:00 018 23:59:59 CLS Outpatient NATE GEE MD [facility] REHAB S/P SHOULDER SCOPE RCT [id number] 11/11/2017 10:02:00 018 13:03:00 DIS Outpatient NATE GEE MD Via [facility] REHAB S/P SHOULDER SCOPE RCT [id number] 10/11/2017 14:34:00 018 23:59:59 CLS Outpatient JOSE DE JESUS GRAJEDA, GAVINO Carbajal Via [facility] RAD SCREENING Z12.31 [id number] 08/23/2017 13:45:00 018 00:01:00 DIS Outpatient NATE GEE MD Via [facility] REHAB S/P SHOULDER SCOPE RCT [id number] 06/28/2017 12:46:00 018 23:59:59 CLS Outpatient REBEKA DOMINGUEZ RN Via [facility] RAD BODY MASS I NDEX [id number] 05/25/2017 06:38:00 018 11:50:00 DIS Outpatient NATE GEE MD Via [facility] SDC RT SHOULDER ROTATOR CU FF TEAR,GLENOID LABRUM TEAR [id number] 05/18/2017 11:03:00 018 14:22:00 DIS Outpatient NATE GEE MD Via [facility] PREOP RT SHOULDER ROTATOR CU FF TEAR,GLENOID LABRUM TEAR [id number] 02/03/2017 13:32:00 017 23:59:59 CLS Outpatient NATE GEE MD Via [facility] RAD RTC TEAR RIGHT [id number] 01/05/2017 15:17:00 017 23:59:59 CLS Outpatient CHARLY JOSE MD Via [facility] LAB I48.0 R94.31 [id number] 12/28/2016 12:50:00 017 23:59:59 CLS Outpatient GARY BROCK APRN Via [facility] RAD N85.02 [id number] 08/12/2016 06:30:00 017 11:34:00 DIS Outpatient NATE WU DO Via [facility] SDC PMB [id number] 08/09/2016 13:01:00 017 13:50:00 DIS Outpatient NATE WU DO Via [facility] PREOP PMB [id number] 07/16/2016 07:48:00 017 12:30:00 DIS Outpatient ADOLFO MELENDREZ MD Via [facility] ENDO FAMILY HISTORY COLON CA NCER [id number] 07/14/2016 05:33:00 017 13:24:00 DIS Outpatient ADOLFO MELENDREZ MD Via [facility] PREOP FAMILY HISTORY COLON CA NCER [id number] 06/17/2016 13:16:00 017 23:59:59 CLS Outpatient OTHER, UNLISTED V ia [facility] RAD SCREENING [id number] 06/14/2016 11:41:00 017 23:59:59 CLS Outpatient NATE WU DO Via [facility] RAD POSTMENOPAUSAL BLEEDIN G [id number] 05/07/2016 13:53:00 16:57:00 DIS Outpatient DELIA TRIANA MD Via [facility] REHAB LOW BACK PAIN [id number] 05/05/2016 10:03:00 16:00:00 DIS Outpatient NATE MORGAN MD Via [facility] WOUNDCARE [id number] 03/26/2016 13:49:00 23:59:59 CLS Outpatient NATE MORGAN MD Via [facility] RAD NON PRESSURE CHRONIC UL CER OF OTHER PT OF RT FOOT, [id number] 02/20/2016 15:03:00 23:59:59 CLS Outpatient DELIA TRIANA MD Via [facility] DVT LEFT UPPER THIGH [id number] 02/10/2016 11:06:00 08:56:00 DIS Outpatient NATE MORGAN MD Via [facility] WOUNDCARE [id number] 02/11/2016 07:52:00 17:15:00 DIS Outpatient CHARLY JOSE MD Via [facility] CATH BILAT FOOT ULCER,ABNORM AL ZURI,AFIB,HTN [id number] 01/30/2016 13:37:00 23:59:59 CLS Outpatient CHARLY JOSE MD Via [facility] CARD AF,DVT,1ST DEGREE AV BL OCK,SOB,FH CAD, HX TOBACCO [id number] 01/29/2016 16:30:00 23:59:59 CLS Outpatient DELIA TRIANA MD Via [facility] DVT UPPER THIGH (L), PO SSIBLE UTI [id number] 01/20/2016 12:38:00 23:59:59 CLS Outpatient NATE MORGAN MD Via [facility] RAD R GREAT TOE ULCER, HEM [id number] 01/06/2016 09:22:00 23:59:59 CLS Outpatient NATE MORGAN MD Via [facility] RAD TYPE 2 DIABETES MELLITU S WITH FOOT ULCER [id number] 12/30/2015 18:29:00 23:59:59 CLS Outpatient DELIA TRIANA MD Via [facility] ANTI COAG THERAPY [id number] 12/02/2015 14:05:00 23:59:59 CLS Outpatient DELIA TRIANA MD Via [facility] ANTI COAG, UTI [id number] 11/19/2015 18:27:00 23:59:59 CLS Outpatient DELIA TRIANA MD Via [facility] UTI [id number] 11/12/2015 17:47:00 23:59:59 CLS Outpatient DELIA TRIANA MD [facility] [id number] 11/10/2015 17:57:00 23:59:59 CLS Outpatient DELIA TRIANA MD [facility] UTI [id number] 11/05/2015 13:48:00 23:59:59 CLS Outpatient DELIA TRIANA MD [facility] DVT LEFT UPPER THIGH [id number] 10/29/2015 14:05:00 23:59:59 CLS Outpatient DELIA TRIANA MD Via [facility] DVT LEFT UPPER THIGH [id number] 10/16/2015 17:04:00 23:59:59 CLS Outpatient DELIA TRIANA MD Via [facility] ANTICOAG THERAPY, DVT [id number] 10/09/2015 19:49:00 23:59:59 CLS Outpatient DELIA TRIANA MD Via [facility] DVT LEFT UPPER THIGH [id number] 10/07/2015 20:25:00 23:59:59 CLS Outpatient DELIA TRIANA MD [facility] F/U UTI [id number] 10/03/2015 13:49:00 23:59:59 CLS Outpatient DELIA TRIANA MD Via [facility] DVT (L) UPPER THIGH [id number] 09/25/2015 12:56:00 23:59:59 CLS Outpatient DELIA TRIANA MD Via [facility] DVT (L) UPPER THIGH [id number] 09/18/2015 18:27:00 23:59:59 CLS Outpatient DELIA TRIANA MD Via [facility] DVT (L) UPPER THIGH [id number] 09/08/2015 12:45:00 016 23:59:59 CLS Outpatient DELIA TRIANA MD Via [facility] DVT (L) UPPER THIGH [id number] 09/05/2015 14:49:00 23:59:59 CLS Outpatient CANDACEANGELES MCKNIGHT NATE Jama [facility] DVT (L) UPPER THIGH [id number] 09/01/2015 13:30:00 23:59:59 CLS Outpatient DELIA TRIANA MD Via [facility] DVT (L) UPPER THIGH [id number] 08/27/2015 00:22:00 04:11:00 DIS Emergency YAYA MOSCOSO DO Via [facility] ER COUGH,SOB,LEFT LEG DVT [id number] 08/25/2015 16:19:00 23:59:59 CLS Outpatient DELIA TRIANA MD Via [facility] DVT (L) UPPER THIGH [id number] 08/13/2015 15:30:00 23:59:59 CLS Outpatient SAWYER TELLO DO Via [facility] LAB ACUTE EMBOLISM AND DALIA RONALDO UNSP DEEP VEINS L LOW E [id number] 08/07/2015 21:48:00 16:46:00 DIS Inpatient SAWYER TELLO DO, V [facility] 4TH LEFT DVT,UTI [id number] 08/20/2019 08:00:00 P Janiya Martinez MD Via [facility] CATH PERSISTENT AFIB [id number] 12/29/2017 06:14:00 Document Registration [id number] 12/20/2017 05:33:00 Document Registration
[2019-08-20] MEDS ORDERED: SUCCINYLCHOLINE INJ 100 MG/5 ML SYR ONE (07:17)
[2019-08-20] MEDS ORDERED: ROCURONIUM 10 MG/ML 5 ML SYRINGE IV ONE (07:17)
[2019-08-20] MEDS ORDERED: proPOfol 200 MG/20 ML (DIPRIVAN) VIAL IV ONE (07:17)
[2019-08-20] MEDS ORDERED: MIDAZOLAM 2 MG/2 ML (VERSED) VIAL ONE (07:18)
[2019-08-20] MEDS ORDERED: ONDANSETRON 4 MG/2 ML (SDV) Z0FRAN ONE (07:18)
[2019-08-20] MEDS ORDERED: LIDOCAINE BOLUS 100 MG/5 ML (IMS) SYR ONE (07:18)
[2019-08-20] MEDS ORDERED: fentaNYL INJECTION 100 MCG/2 ML AMP ONE (07:18)
[2019-08-20 07:25] VITALS: BP 153/95
[2019-08-20 07:37] LABS: HEMOGLOBIN 13.6 G/DL (11.5-16.0); MEAN PLATELET VOLUME 9.4 FL (7.4-10.4); RED CELL DISTRIBUTION WIDTH 14.9 % (10.0-14.5); WHITE BLOOD COUNT 8.6 10^3/uL (4.3-11.0)
[2019-08-20 07:47] LABS: INR 1.4 (0.8-1.4); PROTHROMBIN TIME PATIENT 17.9 SEC (12.2-14.7)
[2019-08-20 07:54] LABS: ALANINE AMINOTRANSFERASE 37 U/L (0-55); ALBUMIN 4.2 GM/DL (3.2-4.5); ALKALINE PHOSPHATASE 172 U/L (40-136); BILIRUBIN,TOTAL 0.2 MG/DL (0.1-1.0); BUN/CREATININE RATIO 21; CALCIUM 9.2 MG/DL (8.5-10.1); CARBON DIOXIDE 24 MMOL/L (21-32); CHLORIDE 102 MMOL/L (98-107); CREATININE SERUM 0.76 MG/DL (0.60-1.30); GFR ESTIMATED > 60; GLUCOSE 98 MG/DL (70-105); POTASSIUM 4.1 MMOL/L (3.6-5.0); SODIUM 139 MMOL/L (135-145); TOTAL PROTEIN 7.7 GM/DL (6.4-8.2)
== END 2019-08-20 08:59 ==
LOC: CATH 07:04
PROVIDERS: ATTEND Internal Medicine Interventional Cardiology
DX: I48.0 Paroxysmal atrial fibrillation (principal); I10 Essential (primary) hypertension; I25.10 Atherosclerotic heart disease of native coronary artery without angina pectoris; G47.33 Obstructive sleep apnea (adult) (pediatric); J45.909 Unspecified asthma, uncomplicated; E11.9 Type 2 diabetes mellitus without complications; F32.9 Major depressive disorder, single episode, unspecified; I47.1 Supraventricular tachycardia; E66.01 Morbid (severe) obesity due to excess calories; Z68.41 Body mass index [BMI] 40.0-44.9, adult; Z95.5 Presence of coronary angioplasty implant and graft; Z88.8 Allergy status to other drugs, medicaments and biological substances; Z79.01 Long term (current) use of anticoagulants; Z79.899 Other long term (current) drug therapy; Z79.82 Long term (current) use of aspirin; Z79.4 Long term (current) use of insulin; Z79.891 Long term (current) use of opiate analgesic; Z80.3 Family history of malignant neoplasm of breast; Z86.718 Personal history of other venous thrombosis and embolism; Z82.3 Family history of stroke; Z80.0 Family history of malignant neoplasm of digestive organs; Z87.891 Personal history of nicotine dependence
CPT/HCPCS: 36415; 80053; 85027; 85610; 85730; 87081; 93005

== ENCOUNTER → 2019-09-26 | Outpatient (CLI) | payer MEDICARE, MEDICAID ==
[~2019-09-26] MED LIST changes: -HEParin (CATH LAB) 0 ML IV ONE; -LIDOCAINE 1% INJ 20 ML 20 ML VIAL ONE; -NS IV 1000 ML 1,000 ML ONE
== END ==
LOC: LABNPT 17:43
PROVIDERS: ATTEND Internal Medicine Interventional Cardiology
DX: Z01.812 Encounter for preprocedural laboratory examination (principal); Z11.59 Encounter for screening for other viral diseases
CPT/HCPCS: 87635

== ENCOUNTER 2019-10-01 07:09 | Day surgery (SDC) | payer MEDICARE, MEDICAID ==
[2019-10-01] VITALS (15 sets, daily range): BP systolic 84–165; BP diastolic 37–100
[~2019-10-01] VITALS: Ht 177.8 cm; Wt 128.0 kg
[2019-10-01] MEDS ORDERED: NS IV 1000 ML 1,000 ML ONE ×3 (07:11→11:04)
[2019-10-01] MEDS ORDERED: HEParin (CATH LAB) 4,000 ML IV ONE (07:11)
[2019-10-01] MEDS ORDERED: LIDOCAINE 1% INJ 20 ML 20 ML VIAL ONE (07:11)
[2019-10-01] MEDS ORDERED: NS IV 1000 ML 1,000 ML IV SCH (07:12)
[2019-10-01] MEDS ORDERED: ISOPROTERENOL 0.2 MG/D5W 50 ML IV ONE (07:15)
[2019-10-01] MEDS ORDERED: proPOfol 200 MG/20 ML (DIPRIVAN) VIAL IV ONE (07:40)
[2019-10-01] MEDS ORDERED: ROCURONIUM 10 MG/ML 5 ML SYRINGE IV ONE (07:40)
[2019-10-01] MEDS ORDERED: NEOSTIGMINE 3 MG/3 ML VIAL ONE (07:41)
[2019-10-01] MEDS ORDERED: MIDAZOLAM 2 MG/2 ML (VERSED) VIAL ONE (07:41)
[2019-10-01] MEDS ORDERED: GLYCOPYRROLATE 0.2 MG/ML (ROBINUL) 2 ML VIAL ONE (07:41)
[2019-10-01] MEDS ORDERED: fentaNYL INJECTION 100 MCG/2 ML AMP ONE (07:41)
[2019-10-01] MEDS ORDERED: SEVOFLURANE (ULTANE) 15 ML INHAL SOLN ONE ×2 (07:41→14:00)
[2019-10-01] MEDS ORDERED: ONDANSETRON 4 MG/2 ML (SDV) Z0FRAN ONE (07:41)
[2019-10-01 07:50] LABS: HEMOGLOBIN 13.5 G/DL (11.5-16.0); MEAN PLATELET VOLUME 9.5 FL (7.4-10.4); RED CELL DISTRIBUTION WIDTH 15.1 % (10.0-14.5); WHITE BLOOD COUNT 9.2 10^3/uL (4.3-11.0)
[2019-10-01 08:02] LABS: INR 2.7 (0.8-1.4); PROTHROMBIN TIME PATIENT 30.2 SEC (12.2-14.7)
[2019-10-01 08:10] LABS: ALANINE AMINOTRANSFERASE 39 U/L (0-55); ALBUMIN 4.2 GM/DL (3.2-4.5); ALKALINE PHOSPHATASE 172 U/L (40-136); BILIRUBIN,TOTAL 0.2 MG/DL (0.1-1.0); BUN/CREATININE RATIO 19; CALCIUM 9.3 MG/DL (8.5-10.1); CARBON DIOXIDE 25 MMOL/L (21-32); CHLORIDE 100 MMOL/L (98-107); CREATININE SERUM 0.78 MG/DL (0.60-1.30); GFR ESTIMATED > 60; GLUCOSE 85 MG/DL (70-105); POTASSIUM 4.2 MMOL/L (3.6-5.0); SODIUM 139 MMOL/L (135-145)
[2019-10-01] MEDS ORDERED: HEParin 1000 UNIT/ML (10ML VIAL) FOR BOLUS ONE ×2 (08:34→11:35)
[2019-10-01] MEDS ORDERED: HEParin DRIP 25000 UNIT/500ML 500 ML IV ONE (08:35)
[2019-10-01] MEDS ORDERED: PHENYLEPHRINE 100 MCG/ML 10 ML (ANESTHESIA) SYR ONE (09:44)
[2019-10-01] MEDS ORDERED: NS (IVPB) 100 ML ONE ×2 (10:00→13:10)
[2019-10-01] MEDS ORDERED: PHENYLEPHRINE INJ 10 MG/ML (FOR DRIP KITS ONLY) ONE ×2 (10:00→13:10)
[2019-10-01] MEDS ORDERED: PROTAMINE 50 MG/5 ML VIAL ONE (13:24)
[2019-10-01] MEDS ORDERED: DEXAMETHASONE 10 MG/ML (DECADRON) 1 ML VIAL ONE (13:29)
--- NOTE | 2019-10-01 13:51 | History & Physicial-Cardiolgy ---
HPI-Cardiology Cardiology Consultation: Date of Consultation 10/01/19 Date of Admission Attending Physician Janiya Cordova MD Admitting Physician Martin Goode MD Consulting Physician Janiya CORDOVA MD HPI: Time Seen by a Provider: 08:30 Chief Complaint: Palpitations, shortness of breath This is a 68-year-old lady who has history of non-STEMI, status post PCI on 11/30/2018. She also has history of persistent atrial fibrillation refractory to medical therapy. She is symptomatic. Review of Systems-Cardiology Review of Systems Constitutional: As described under HPI; No As described under HPI, No no symptoms reported, No chills, No fever, No lightheadedness Eyes: No As described under HPI, No no symptoms reported, No blindness, No blurred vision, No contact lenses, No drainage, No decreased acuity, No foreign body sensation, No pain, No vision change Ears/Nose/Throat: No As described under HPI, No no symptoms reported, No chronic hearing loss, No ear discharge, No ear pain, No nasal drainage, No ulcerations Respiratory: No no symptoms reported; As described under HPI; No As described under HPI, No cough, No orthopnea, No shortness of breath, No SOB with excertion Cardiovascular: No no symptoms reported; As described under HPI; No As described under HPI, No chest pain, No edema, No irregular heart rate, No lightheadedness; palpitations Gastrointestinal: No no symptoms reported, No As described under HPI, No abdomen distended, No abdominal pain, No blood streaked bowels, No constipation, No diarrhea, No nausea, No vomiting, No stool coloration changes Genitourinary: No As described under HPI, No burning, No dysuria, No discharge, No frequency, No flank pain, No hematuria, No urgency : Yes : No Skin: No rash, No skin related problems, No ulcerations Psychiatric/Neurological: No anxiety, No depression, No seizure, No focal weakness, No syncope Hematologic: No bleeding abnormalities QKP-[id number]-Earxqg Hx Patient Social History Alcohol Use: Denies Use Recreational Drug Use: No Smoking Status: Former Smoker Former smoker/When Quit: Aug 07, 1980 Type Used: Cigarettes 2nd Hand Smoke Exposure: No Recent Foreign Travel: No Immunizations Up To Date Tetanus Booster (TDap): Unknown Date of Pneumonia Vaccine: Feb 14, 2017 Date of Influenza Vaccine: Jan 14, 2019 Past Medical History PMH As described under Assessment. Family Medical History Family History: Cardiovascular disease 19 FATHER 19 MOTHER Colon cancer 19 FATHER 19 MOTHER Diabetes mellitus 19 MOTHER G8 BROTHER G8 SISTER Myocardial infarction 19 FATHER Allergies and Home Medications Allergies Coded Allergies: black cohosh (Verified Allergy, Unknown, 08/07/15) glyburide (Verified Allergy, Unknown, 08/07/15) isosorbide (Verified Allergy, Unknown, 08/07/15) Uncoded Allergies: ARCABOSE (Allergy, Mild, Abdominal Pain, 10/01/19) GAS PAINS Home Medications Acetaminophen 500 Mg Tablet, 1,000 MG PO DAILY PRN, (Reported) Amlodipine Besylate 5 Mg Tablet, 5 MG PO DAILY Prescribed by: AMANDEEP VILLANUEVA on 06/02/19 1055 Aspirin 81 Mg Tablet.dr, 81 MG PO DAILY, (Reported) Atorvastatin Calcium 80 Mg Tablet, 80 MG PO HS, (Reported) Calcium Carbonate/Vitamin D3 1 Each Tablet, 1 TAB PO BID, (Reported) Cetirizine HCl 10 Mg Tablet, 10 MG PO DAILY, (Reported) Cholecalciferol (Vitamin D3) 2,000 Unit Tablet, 2,000 UNIT PO NOON, (Reported) Cyclobenzaprine HCl 10 Mg Tablet, 10 MG PO TID, (Reported) Cyclosporine 1 Each Droperette, 1 DROP OU BID, (Reported) Diltiazem HCl 360 Mg Tab.er.24h, 360 MG PO DAILY, (Reported) Dofetilide 250 Mcg Capsule, 250 MCG PO BID Prescribed by: Janiya CORDOVA on 05/31/19 1214 Famotidine 20 Mg Tablet, 20 MG PO DAILY PRN for HEARTBURN, (Reported) Ferrous Sulfate 325 Mg Tablet, 325 MG PO 1800, (Reported) Fluticasone/Vilanterol 1 Each Blst.w.dev, 1 EACH IH DAILY, (Reported) Gabapentin 800 Mg Tablet, 800 MG PO QID, (Reported) Glucosamine/D3/Boswellia Nellie 1 Each Tablet, 1 EACH PO BID, (Reported) Hydroxyzine HCl 10 Mg Tablet, 10 MG PO TID, (Reported) Imipramine HCl 50 Mg Tablet, 50 MG PO HS, (Reported) Insulin Aspart 300 Units/3 Ml Solution, 6 UNITS SQ TIDAC, (Reported) Insulin Glargine,Hum.rec.anlog 100 Unit/1 Ml Vial, 20 UNIT SQ HS, (Reported) Lactobacillus Rhamnosus GG 1 Each Capsule, 1 CAP PO DAILY PRN for WHILE TAKING ANTIBIOTICS, (Reported) Lisinopril 20 Mg Tablet, 20 MG PO DAILY, (Reported) Metformin HCl 1,000 Mg Tablet, 1,000 MG PO BID, (Reported) Mineral Oil/Petrolatum,White 3.5 Gm Oint...g., OU HS, (Reported) Mirabegron 50 Mg Tab.er.24h, 50 MG PO DAILY, (Reported) Multivitamin 1 Each Tablet, 1 EACH PO DAILY, (Reported) Nitrofurantoin Macrocrystal 100 Mg Capsule, 100 MG PO HS, (Reported) Pima 3 Polyunsat Fatty Acids 1,000 Mg Cap, 1,000 MG PO TID, (Reported) Oxycodone HCl/Acetaminophen 1 Each Tablet, 1 TAB PO EVERY 4-6 HOURS PRN for PAIN-MODERATE (5-7), (Reported) Polyethylene Glycol 3350 17 Gm Powd.pack, 17 GM PO DAILY PRN for CONSTIPATION- 2ND LINE, (Reported) Polyvinyl Alcohol/Povidone 15 Ml Drops, 2 DROPS OU Q4H PRN for DRY EYES, (Reported) Prasugrel HCl 10 Mg Tablet, 10 MG PO DAILY, (Reported) Primidone 250 Mg Tablet, 250 MG PO TID, (Reported) Sennosides/Docusate Sodium 1 Each Tablet, 1 EACH PO DAILY, (Reported) Solifenacin Succinate 10 Mg Tablet, 10 MG PO 1600, (Reported) Venlafaxine HCl 75 Mg Cap.er.24h, 75 MG PO DAILY, (Reported) Warfarin Sodium 4 Mg Tablet, 4 MG PO SuMTuWThSa@1600, (Reported) Warfarin Sodium 4 Mg Tablet, 2 MG PO tuesday@1600, (Reported) Patient Home Medication List Home Medication List Reviewed: Yes Physical Exam-Cardiology Physical Exam Vital Signs/I&O 10/01/19 07:34 Temp 36.0 Pulse 103 Resp 20 B/P (MAP) 165/100 (121) Pulse Ox 96 O2 Delivery Room Air Capillary Refill : Constitutional: appears stated age, AAO x 3; No apparent distress; well-deve loped, well-nourished HEENT: PERRL; No discharge; hearing is well preserved, oral hygience is good; No ulceration, No xanthelasmas are seen Neck: No carotid bruit; carotid pulses are 2 + bilaterally Respiratory: chest is bilaterally symmetric, lungs clear to auscultation Cardiovascular: regular rate-rhythm, S1 and S2 Gastrointestinal: soft; No spleenomegaly Rectal: deferred Extremities: No clubbing, No cyanosis; no lower extremity edema bilateral; No significant edema Neurologic/Psychiatric: alert, oriented x 3, power is 5/5 both on sides Skin: normal color; No rash, No ulcerations Data Review Labs Laboratory Tests 10/01/19 07:40: White Blood Count 9.2, Red Blood Count 4.73, Hemoglobin 13.5, Hematocrit 40, Mean Corpuscular Volume 84, Mean Corpuscular Hemoglobin 29, Mean Corpuscular Hemoglobin Concent 34, Red Cell Distribution Width 15.1H, Platelet Count 288, Mean Platelet Volume 9.5, Prothrombin Time 30.2H, INR Comment 2.7H, Activated Partial Thromboplast Time 42H, Sodium Level 139, Potassium Level 4.2, Chloride Level 100, Carbon Dioxide Level 25, Anion Gap 14, Blood Urea Nitrogen 15, Creatinine 0.78, Estimat Glomerular Filtration Rate > 60, BUN/Creatinine Ratio 19, Glucose Level 85, Calcium Level 9.3, Corrected Calcium 9.1, Total Bilirubin 0.2, Aspartate Amino Transf (AST/SGOT) 31, Alanine Aminotransferase (ALT/SGPT) 39, Alkaline Phosphatase 172H, Total Protein 8.0, Albumin 4.2 ECG Impression ECG Initial ECG Rhythm: Normal Sinus A/P-Cardiology Assessment/Admission Diagnosis Persistent atrial fibrillation refractory to medical therapy. Admission Status: Observation Plan Persistent atrial fibrillation ablation is recommended. Janiya CORDOVA MD October 01, 2019 13:51
--- NOTE | 2019-10-01 14:04 | Electrophysiology Procedure ---
EP Procedure Atrial fibrillation ablation. DATE OF SERVICE:10/01/19 CARDIAC BLACK ASH BURNER OPERATOR: My Russell MD, [facility] INDICATION: Persistent atrial fibrillation refractory to medical therapy. PREOPERATIVE DIAGNOSIS: Persistent atrial fibrillation refractory to medical therapy. POSTOPERATIVE DIAGNOSES: Successful atrial fibrillation ablation. HISTORY: 68-year-old lady with history of CAD/PCI. She has symptomatic persistent atrial fibrillation refractory to drug therapy. The patient is planned for comprehensive EP study and ablation. PROCEDURE PERFORMED: 1. Comprehensive EP study with induction. 2. Fluoroscopy. 3. Left atrial pacing and recording. 4. Drug infusion. 5. Left ventricular pacing and recording. 6. Comprehensive 3D mapping with the carto system. 7. Pulmonary vein isolation. 8. Additional atrial fibrillation ablation, roofline. 9. Intracardiac echocardiogram. COMPLICATION: None. ESTIMATED BLOOD LOSS: 10 mL. CONTRAST USED: None. FLUOROSCOPY TIME: 8.22 minutes. FLUOROSCOPY DOSE: 172 mgy. SPECIMENS: None. ANESTHESIA: Done by our anesthesia colleagues. ANTICOAGULATION: Uninterrupted Coumadin. IV heparin PROCEDURE IN DETAIL: After informed consent was taken, the patient was brought to the EP lab. Anesthesia was provided by our anesthesia colleagues. The patient was draped and prepped in the usual sterile fashion. The patient presented to the EP lab in sinus rhythm. We were not able to gain access in the left groin. 3 access was gained in the right femoral vein including 10 Tanzanian, 8 Tanzanian, 7 Tanzanian. Intracardiac echocardiogram Was advanced through the 10 Tanzanian. We advanced a his catheter through the 8 Tanzanian sheath and got over his recordings. The his catheter was then taken out. The CS catheter was advanced through the 7 Tanzanian sheath. 3D mapping was done with Carto system. Left atrial pacing and recording was also done which did not demonstrate a left-sided bypass tract.. Intracardiac echocardiogram was performed with an ICE catheter which was advanced through the 12 Tanzanian sheath. Numerous images were taken of the RV, RA, left atrium and LV. There was no pericardial effusion. All 4 pulmonary veins were identified. A carto-sound map was created with the ice catheter. We then advanced a guidewire into the superior vena cava. A long sheath was advanced with the transseptal needle. Under fluoroscopic and echocardiogram guidance, transseptal puncture was done once through the fossa ovalis. Left atrial pressure was documented. IV heparin bolus was given followed by heparin infusion. ACT target over 350 seconds. Patient was on uninterrupted oral anticoagulation therapy. The transseptal needle was taken out and a PENTARAY mapping catheter was utilized to perform voltage mapping of the left atrium. Once 3-D mapping was completed, the Pentaray catheter was taken out and we advanced an irrigated ablation catheter. We then proceeded with pulmonary vein isolation. Pulmonary vein isolation was performed for the left pulmonary veins. Exit block was confirmed. We then proceeded to the right pulmonary vein. Exit block was again confirmed with high output pacing in each vein and demonstrating dissociation of the left atrium. Voltage mapping showed fractionated signals in low voltage areas close to the roof. Therefore roofline was done. Rapid atrial pacing without Isuprel did not induce any tachycardia. Isuprel was started at high dose. No tachycardia was induced. Rapid atrial pacing on Isuprel did not induce atrial fibrillation. Comprehensive EP study was done. Left ventricular pacing and recording did not demonstrate a left lateral pathway. After 30 minutes, we rechecked all the 4 pulmonary veins and demonstrated exit block despite high output pacing. Final intracardiac echocardiogram images demonstrated no pericardial effusion. All the sheaths were taken out. 20 mg of IV protamine and 5 mg of IV Decadron was given. Figure of 8 suture was done in The venous access and manual compression done for 5 minutes. Hemostasis was achieved. Patient tolerated the procedure well and did not have any complications. The patient left the EP lab in sinus rhythm. Total ablation time 13 minutes and 39 seconds. MEASUREMENTS/EP STUDY: AA interval 874 ms, AH interval 92 ms, HV interval 67 ms, CA interval 229 ms, QRS duration 90 ms, QT interval 435 ms, R-R interval 810 ms, Retrograde Wenckebach when pacing at 540 ms, AV Wenckebach when pacing at 390 ms, Atrial ERP was 600/300 ms. PLAN: The patient will be observed overnight and will be discharged home tomorrow with precise followup instructions. My Russell MD, [facility] Cardiac Electrophysiology Janiya RUSSELL MD October 01, 2019 14:03
[2019-10-01] MEDS ORDERED: PATIENT MAY USE OWN MEDS, ALL PO SCH (14:15)
[2019-10-01] MEDS ORDERED: morphine INJ 10 MG/ML 1ML (SYR OR VIAL) IVP ONE (14:45)
[2019-10-01] MEDS ORDERED: HYDROmorphone 2 MG/ML VIAL (DILAUDID) IV ONE (14:45)
[2019-10-01] MEDS ORDERED: ONDANSETRON 4 MG/2 ML (SDV) Z0FRAN IVP PRN (14:45)
--- NOTE | 2019-10-01 14:46 | NUR ---
spoke with caregiver Olga, attempted to call sister as well per pt request this am when procedure complete, but get an error stating number no longer in service.
[2019-10-01 14:50] LABS: BILIRUBIN,URINE NEGATIVE (NEGATIVE); CLARITY,URINE SL CLOUDY; COLOR,URINE YELLOW; GLUCOSE, URINE (UA) NEGATIVE (NEGATIVE); KETONES,URINE NEGATIVE (NEGATIVE); LEUKOCYTE ESTERASE ,URINE 3+ (NEGATIVE); NITRITE,URINE POSITIVE (NEGATIVE); PH,URINE 6.5 (5-9); PROTEIN,URINE TRACE (NEGATIVE)
[2019-10-01 14:58] LABS: BACTERIA,URINE MODERATE /HPF; SQUAMOUS EPITHELIAL CELL,UR 0-2 /HPF; WBC,URINE 50-100 /HPF
[2019-10-01] MEDS ORDERED: ACETAMINOPHEN 500 MG TAB (TYLENOL) PO PRN (17:15)
[2019-10-01] MEDS ORDERED: oxyCODONE/APAP 10/325MG (PERCOCET 10) TABLET PO PRN (17:15)
[2019-10-01] MEDS ORDERED: NON-FORMULARY MEDICATION 1 EA EA (Cholecalciferol (Vitamin D3) (Vitamin D3) 2,000 UNIT) PO SCH (17:15)
[2019-10-01] MEDS ORDERED: polyethylene glycoL POWDER 17 GM (MIRALAX) PACK PO PRN (17:15)
[2019-10-01] MEDS ORDERED: NON-FORMULARY MEDICATION 1 EA EA (Lactobacillus Rhamnosus GG (Culturelle) 1 CAP) PO PRN (17:15)
[2019-10-01] MEDS ORDERED: FAMOTIDINE 20 MG (PEPCID) TABLET PO PRN (17:15)
--- NOTE | 2019-10-01 17:16 | NUR ---
THIS NURSE ATTEMPTED TO NOTIFIED DR CORDOVA ABOUT HOME MEDICATIONS. WILL TRY AGAIN LATER.
[2019-10-01] MEDS: NS IV 1000 ML 1,000 ML IV SCH (17:45)
[2019-10-01] MEDS ORDERED: FERROUS SULF 325 MG (IRON) TAB PO SCH (18:00)
[2019-10-01] MEDS ORDERED: warFARin 4 MG (COUMADIN) TAB PO SCH (18:00)
[2019-10-01] MEDS ORDERED: LACTOBACILLUS ACIDOPHILUS (PROBIOTIC) CAPSULE PO PRN (18:15)
--- NOTE | 2019-10-01 18:25 | NUR ---
THIS NURSE NOTIFIED DR CORDOVA OF PT HOME MEDICATIONS. DR CORDOVA ORDER ALL HOME MEDS TO BE RESUMED. THIS NURSE NOTIFIED HIM OF PT CURRENT VITALS. THIS NURSE CLARIFIED HE WANTED TIKOSYN RESTARTED AND A ONE TIME DOSE OF CARDIZEM. HOLD PRASUGREL UNTIL TOMORROW. SEE MED HX.
[2019-10-01] MEDS ORDERED: CYCLOBENZAPRINE 10 MG (FLEXERIL) TAB PO PRN (21:00)
[2019-10-01] MEDS ORDERED: NON-FORMULARY MEDICATION 1 EA EA (Calcium Carbonate/Vitamin D3 (Calcium 500 + Vit D Caplet PO SCH (21:00)
[2019-10-01] MEDS ORDERED: IMIPRAMINE HCL 50 MG TAB PO SCH (21:00)
[2019-10-01] MEDS ORDERED: LANTUS 100 UNITS/ML VIAL SQ SCH (21:00)
[2019-10-01] MEDS ORDERED: hydrOXYzine (ATARAX) 10 MG TAB PO PRN (21:00)
[2019-10-01] MEDS: GABAPENTIN 800 MG TAB PO SCH (21:25)
[2019-10-01] MEDS: PRIMIDONE 250MG (MYSOLINE) TAB PO SCH (22:24)
[2019-10-01] MEDS: RESTASIS 0.05% OU SCH (22:29)
[2019-10-01] MEDS: OPTH EMULSION OU SCH (22:29)
[2019-10-01] MEDS: DOFETILIDE 250 MCG CAP (TIKOSYN) NON-FORMLUARY PO SCH (22:31)
[2019-10-01] MEDS: OMEGA 3 (FISH OIL) 1000 MG CAP PO SCH (23:00)
[2019-10-02] VITALS (15 sets, daily range): BP systolic 92–122; BP diastolic 45–73
[2019-10-02] MEDS: NS IV 1000 ML 1,000 ML IV SCH ×2 (00:25→08:39)
[2019-10-02 03:41] LABS: MEAN PLATELET VOLUME 9.7 FL (7.4-10.4); RED CELL DISTRIBUTION WIDTH 15.2 % (10.0-14.5); WHITE BLOOD COUNT 7.9 10^3/uL (4.3-11.0)
[2019-10-02 04:03] LABS: BUN/CREATININE RATIO 16; CARBON DIOXIDE 22 MMOL/L (21-32); CHLORIDE 105 MMOL/L (98-107); CREATININE SERUM 0.79 MG/DL (0.60-1.30); GFR ESTIMATED > 60; GLUCOSE 189 MG/DL (70-105); POTASSIUM 4.4 MMOL/L (3.6-5.0); SODIUM 139 MMOL/L (135-145)
[2019-10-02] MEDS ORDERED: NON-FORMULARY MEDICATION 1 EA EA (Insulin Aspart (Novolog Flexpen) 6 UNITS) SQ SCH (07:00)
[2019-10-02] MEDS ORDERED: CALCIUM CARB + VIT D 600 MG (CALCARB + D) TAB PO SCH (07:00)
[2019-10-02] MEDS ORDERED: VENlafaxine XR 75 MG (EFFEXOR XR) CAP PO SCH (08:00)
[2019-10-02] MEDS: inSUlin ASPART (NovoLOG) 1 UNIT/0.01 ML (CHARGE PER UNIT) SC SCH ×2 (08:27→11:41)
[2019-10-02] MEDS: OPTH EMULSION OU SCH (08:29)
[2019-10-02] MEDS: RESTASIS 0.05% OU SCH (08:29)
[2019-10-02] MEDS: GABAPENTIN 800 MG TAB PO SCH ×2 (08:33→14:12)
[2019-10-02] MEDS: DOFETILIDE 250 MCG CAP (TIKOSYN) NON-FORMLUARY PO SCH (08:37)
[2019-10-02] MEDS: PRIMIDONE 250MG (MYSOLINE) TAB PO SCH ×2 (08:41→14:12)
[2019-10-02] MEDS: OMEGA 3 (FISH OIL) 1000 MG CAP PO SCH ×2 (08:50→13:45)
--- NOTE | 2019-10-02 08:58 | Anesthesia-General Post-Op ---
General Patient Condition Mental Status/LOC: Same as Preop Cardiovascular: Satisfactory Nausea/Vomiting: Absent Respiratory: Satisfactory Pain: Controlled Complications: Absent Post Op Complications Complications None Follow Up Care/Instructions Patient Instructions None needed. Anesthesia/Patient Condition Patient Condition Patient is doing well, no complaints, stable vital signs, no apparent adverse anesthesia problems. No complications reported per nursing. JEAN CLAUDE TRIPP CRNA October 02, 2019 08:58
[2019-10-02] MEDS ORDERED: PRASUGREL 10 MG (EFFIENT) TABLET PO SCH (09:00)
[2019-10-02] MEDS ORDERED: LORATADINE (CLARITIN) 10 MG TAB PO SCH (09:00)
[2019-10-02] MEDS ORDERED: lisINopril 20 MG (PRINIVIL) TABLET PO SCH (09:00)
[2019-10-02] MEDS ORDERED: amLODIPine 5 MG (NORVASC) TAB PO SCH (09:00)
[2019-10-02] MEDS ORDERED: ASPIRIN E.C. 81 MG (ECOTRIN) TAB PO SCH (09:00)
[2019-10-02] MEDS ORDERED: ceTIRizine 10 MG (ZyrTEC) TAB NON-FORMULARY PO SCH (09:00)
[2019-10-02] MEDS ORDERED: NON-FORMULARY MEDICATION 1 EA EA (Cetirizine HCl (Zyrtec) 10 MG) PO SCH (09:00)
[2019-10-02] MEDS ORDERED: BREO ELLIPTA IH SCH (09:00)
--- NOTE | 2019-10-02 10:55 | NUR ---
THIS NURSE CALLED DR SAMUEL OFFICE AND SPOKE WITH NURSE GOODMAN REGARDING PT TAKING ANTIBIOTICS FOR PSEUDOMONAS IN URINE. REX RN CONFIRMED THAT PT DOES TAKE NITROFURANTOIN DAILY. THIS NURSE UPDATED DR CORDOVA. WILL CONTINUE TO MONITOR.
--- NOTE | 2019-10-02 11:30 | NUR ---
"RD ASSESSMENT PMHx: afib; CAD; DVT; LA; hypercholesterolemia; HTN; chronic-UTI; GERD; chronic constipation; DM; CA(uterine) PT INTERACTION: Pt was awake and pleasant during nutrition assessment. Pt states current appetite is good. Note no meals have been recorded at this time, per chart review. Pt states following a diabetic diet at home, and has no issues with chewing/swallowing food. Pt states no recent issues with nausea or vomiting. Pt states recent issues with constipation, and that her last BM was 09/29. Note pt currently on bowel regimen of miralax PRN, per chart review. Pt states no recent wt changes. Note unable to determine recent wt hx, per chart review. Pt states current DM management is pretty good. Note unable to determine recent HbA1c, per chart review. ABNORMAL NUTRITION-RELATED LAB VALUES LOW: Ca 8.0 HIGH: glu 189; alkphos 172 Est. kcal needs: 7158-3896 kcal | 15-18 kcal/kg Est. Pro needs: 102-128 g Pro | 0.8-1.0 g Pro/kg PES STATEMENT: Inadequate oral intake (NI-2.1) related to constipation as evidenced by pt interview INTERVENTION: Continue with current diet order of CHO 60g/m 1snack diet. Pt may benefit from nutrition supplementation if PO intake declines. Discussed current DM management and offered dietary education. Pt declined at this time. Will attempt to offer again prior to discharge. Will continue to follow and reassess as pt needs, intake, and status change. MONITOR/EVALUATE: PO Intake; Plan of Care; Hydration Status; Weight Status; Lab Values Britni Wharton, MS, RD, LD"
[2019-10-02] MEDS ORDERED: VITAMIN D3 25 MCG (1,000 UNITS) TABLET PO SCH (12:00)
--- NOTE | 2019-10-02 12:05 | Cardiology Discharge Summary ---
Diagnosis/Chief Complaint Date of Admission 10/01/2019 Date of Discharge 10/02/2019 Admission Diagnosis Persistent atrial fibrillation refractory to drug therapy Final/Discharge Diagnosis Successful atrial fibrillation ablation Chief Complaint/HPI Chief Complaint/HPI This is a 68-year-old lady who has history of non-STEMI, status post PCI on 11/30/2018. She also has history of persistent atrial fibrillation refractory to medical therapy. She is symptomatic. Discharge Summary Procedures Successful PVI and roofline done. No inducible tachycardia at the and even on high dose Isuprel. Discharge Physical Examination Normal cardiovascular examination. Hospital Course Was the Problem List Reviewed?: Yes Unremarkable. Pending Labs Laboratory Tests 10/02/19 11:38: Glucometer 154 Discussion & Recommendations Discussion The procedure was discussed at length with the patient. Discharge took over 30 minutes to complete. The patient will be discharged on same medications and follow-up in 2-3 weeks. 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 She follows with urology as well as primary care physician. I have requested the RN to discuss with both to see what she needs to be discharged on. Follow up appt.: Follow-up with Dr. Russell in 2-3 weeks. Dicharge Diet: Cardiac Diet, Coumadin Patient Diet Activity as Tolerated: Yes Home Medications Reviewed patient Home Medication Reconciliation performed by pharmacy medication reconciliations certified pharmacy technician and/or nursing. Patients Allergies have been reviewed. Discharge Home Medications: Reviewed and agree with Discharge Medication list on patient's Discharge Instruction sheet Condition at discharge Stable. Instructions to patient/family Discussed at length with the patient. Janiya RUSSELL MD October 02, 2019 12:05
--- NOTE | 2019-10-02 12:06 | Discharge Inst-Post CATH ---
Discharge Inst-CATH/EP Problems Reviewed?: Yes Final Diagnosis Persistent atrial fibrillation refractory to drug therapy. Post Cardiac Cath/EP D/C Inst Follow Up/Plan Dr. Russell in 2-3 weeks. <b>CARDIAC CATH/EP PROCEDURE DISCHARGE INSTRUCTIONS</b> ACTIVITY * Go Home directly and rest. * Limit activity of the leg (or wrist if it was used) for 7 days including aerobics, swimming, jogging, bicycling, etc. * Restrict stair-climbing for 7 days if possible, if not, climb up with your non-cath leg, then bring together on the same step. * Avoid lifting, pushing, pulling or excessive movement of the affected extremity for 7 days. * Customary sexual activity may be resumed after 2 days-use caution not to use a position that strains or causes pain to the affected extremity. * No driving for 24 hours. * NO SMOKING. * Avoid straining for bowel movements for 7 days. * Gentle walking on level ground is allowed. * Returning to work will depend on the type of procedure and the results. Your doctor will discuss this with you. CALL YOUR DOCTOR FOR ANY OF THE FOLLOWING: *If bleeding from the puncture site occurs- Apply gentle pressure to site with clean cloth and call your doctor or EMS. * If a knot or lump forms under the skin, increases in size, or causes pain. * If bruising appears to be worsening or moving further down your leg instead of disappearing. * Temperature above 101 F. CARE OF YOUR GROIN INCISION; * Bruising or purple discoloration of the skin near the puncture site is common. * You may shower only, no bathtub bathing for 5 days. Be careful to avoid slipping as your leg may feel stiff. * If a closure device was used on your femoral artery, please see the attached guide regarding care of the device and your leg. * Leave dressing on FOR 24 hours. CARE OF YOUR WRIST INCISION; * Bruising or purple discoloration of the skin near the puncture site is common. * You may shower. * DO NOT submerge wrist. * Leave dressing on FOR 24 hours. Janiya RUSSELL MD October 02, 2019 12:06
--- NOTE | 2019-10-02 16:40 | NUR ---
THIS NURSE SPOKE WITH DR CORDOVA ABOUT WHAT DR SAMUEL SAID. DR HUTCHINSON WANTED THIS NURSE TO SPEAK WITH DR WILDE ABOUT URINE CULTURE RESULTS AND SEE IF PT NEEDED ANTIBIOTICS. THIS NURSE ATTEMPTED TO GET A HOLD OF DR WILDE AT 1200 AND LEFT A MESSAGE WITH THE NURSE. THIS NURSE CALLED BACK AGAIN AT 1353 AND SPOKE WITH VINCENZO ZAPATA. MYRON RN SAID SHE WOULD CALL BACK WITH DR WILDE RECOMMENDATIONS. 1430 MYRON RN CALLED BACK AND SAID DR WILDE WOULD LIKE TO SEE THE CULTURE AND SENSITIVITY RESULTS AND THEY WILL REQUEST THEM SOON. THIS NURSE NOTIFIED DR CORDOVA OF DR WILDE RECOMMENDATIONS. DR CORDOVA ADVISED PT TO FOLLOW UP THIS WEEK WITH DR WILDE AND WITH ART IN 2-3 WEEKS. THIS NURSE MADE AN APPOINTMENT FOR ICU [address] CORDOVA. Addendum: 10/02/19 at 1702 by MARTHA HERRERA RN [id number] THIS NURSE SPOKE WITH DR CORDOVA ABOUT WHAT DR SAMUEL SAID. DR HUTCHINSON WANTED THIS NURSE TO SPEAK WITH DR WILDE ABOUT URINE CULTURE RESULTS AND SEE IF PT NEEDED ANTIBIOTICS. THIS NURSE ATTEMPTED TO GET A HOLD OF DR WILDE AT 1200 AND LEFT A MESSAGE WITH THE NURSE. THIS NURSE CALLED BACK AGAIN AT 1353 AND SPOKE WITH VINCENZO ZAPATA. MYRON ZAPATA SAID SHE WOULD CALL BACK WITH DR WILDE RECOMMENDATIONS. 1430 MYRON RN CALLED BACK AND SAID DR WILDE WOULD LIKE TO SEE THE CULTURE AND SENSITIVITY RESULTS AND THEY WILL REQUEST THEM SOON. THIS NURSE NOTIFIED DR CORDOVA OF DR WILDE RECOMMENDATIONS. DR CORDOVA ADVISED PT TO FOLLOW UP THIS WEEK WITH DR WILDE AND WITH ART IN 2-3 WEEKS. THIS NURSE MADE AN APPOINTMENT FOR ICU [address] CORDOVA.
[2019-10-05] MEDS ORDERED: warFARin 4 MG (COUMADIN) TAB PO SCH (18:00)
== END 2019-10-02 16:18 | disposition home or self-care (01) ==
LOC: CATH 07:09 → ICU 14:23 → CATH 10-02 16:18
PROVIDERS: ATTEND Internal Medicine Interventional Cardiology
DX: I48.19 Other persistent atrial fibrillation (principal); I48.0 Paroxysmal atrial fibrillation; I47.1 Supraventricular tachycardia; I25.10 Atherosclerotic heart disease of native coronary artery without angina pectoris; I25.2 Old myocardial infarction; I11.9 Hypertensive heart disease without heart failure; G47.33 Obstructive sleep apnea (adult) (pediatric); E11.51 Type 2 diabetes mellitus with diabetic peripheral angiopathy without gangrene; E78.49 Other hyperlipidemia; J30.9 Allergic rhinitis, unspecified; E78.5 Hyperlipidemia, unspecified; F32.9 Major depressive disorder, single episode, unspecified; Z88.8 Allergy status to other drugs, medicaments and biological substances; Z79.01 Long term (current) use of anticoagulants; Z79.4 Long term (current) use of insulin; Z79.82 Long term (current) use of aspirin; Z79.899 Other long term (current) drug therapy; Z79.891 Long term (current) use of opiate analgesic; Z99.89 Dependence on other enabling machines and devices; Z86.718 Personal history of other venous thrombosis and embolism; Z87.891 Personal history of nicotine dependence; Z80.3 Family history of malignant neoplasm of breast; Z80.0 Family history of malignant neoplasm of digestive organs; Z80.52 Family history of malignant neoplasm of bladder
CPT/HCPCS: 36415; 80048; 80053; 81000; 82962; 85027; 85610; 85730; 87077; 87081; 87088; 87186; 93005; 93613; 93622; 93656; 93657; 93662

== ENCOUNTER 2019-12-20 01:01 | Emergency (ER) | payer MEDICARE, MEDICAID ==
[~2019-12-20] VITALS: Ht 177 cm; Wt 127.0 kg
[~2019-12-20 01:01] MED LIST changes: -WARF5TAB PO; +WARF5TAB2 PO
[2019-12-20 01:24] LABS: BASOPHILS % (AUTO) 0 % (0-10); EOSINOPHILS # (AUTO) 0.3 10^3/uL (0.0-0.3); EOSINOPHILS % (AUTO) 3 % (0-10); HEMATOCRIT 40 % (35-52); HEMOGLOBIN 13.3 G/DL (11.5-16.0); LYMPHOCYTES # (AUTO) 2.7 X 10^3 (1.0-4.0); LYMPHOCYTES % (AUTO) 28 % (12-44); MEAN CORPUSCULAR HEMOGLOBIN 29 PG (25-34); MEAN CORPUSCULAR HGB CONC 33 G/DL (32-36); MEAN CORPUSCULAR VOLUME 86 FL (80-99); MEAN PLATELET VOLUME 10.2 FL (7.4-10.4); MONOCYTES # (AUTO) 0.9 X 10^3 (0.0-1.0); MONOCYTES % (AUTO) 10 % (0-12); NEUTROPHILS # (AUTO) 5.5 X 10^3 (1.8-7.8); NEUTROPHILS % (AUTO) 59 % (42-75); PLATELET COUNT 267 10^3/uL (130-400); RED CELL DISTRIBUTION WIDTH 14.9 % (10.0-14.5); WHITE BLOOD COUNT 9.4 10^3/uL (4.3-11.0)
--- NOTE | 2019-12-20 01:25 | ED Fall/Injury ---
General Chief Complaint: Trauma-Non Activation Stated Complaint: FALL Source: patient Exam Limitations: no limitations History of Present Illness Date Seen by Provider: Dec 20, 2019 Time Seen by Provider: 01:01 Initial Comments Here with report of fall at home. Patient was turning off everything for the night and was coming back into her room when she lost her balance. She tried to catch herself on her dresser and ended up falling onto the right side including the right hip and shoulder and hitting her head on the right frontal area. Patient does have history of A. fib that is controlled and is on warfarin. Denies nausea, vomiting, breathing problems or cough. States wasn't feeling well the other day but was doing better today. Occurred: just prior to arrival Severity: moderate Injuries/Pain Location: head, neck, upper extremity, pelvis, lower extremity Context: lost balance Loss of Consciousness: no loss of consciousness Modifying Factors: Improves With Immobilization; Worse With Movement Associated Symptoms (Fall): No Abdominal Pain, No Chest Pain, No Confusion; Headache; No Lightheadedness; Muscle Spasms; No Nausea/Vomiting; Neck Pain; No Shortness of Air Allergies and Home Medications Allergies Coded Allergies: black cohosh (Verified Allergy, Unknown, 08/07/15) glyburide (Verified Allergy, Unknown, 08/07/15) isosorbide (Verified Allergy, Unknown, 08/07/15) Uncoded Allergies: ARCABOSE (Allergy, Mild, Abdominal Pain, 10/01/19) GAS PAINS Home Medications Acetaminophen 500 Mg Tablet, 1,000 MG PO DAILY PRN, (Reported) Amlodipine Besylate 5 Mg Tablet, 5 MG PO DAILY Prescribed by: AMANDEEP VILLANUEVA on 06/02/19 1055 Aspirin 81 Mg Tablet.dr, 81 MG PO DAILY, (Reported) Atorvastatin Calcium 80 Mg Tablet, 80 MG PO HS, (Reported) Calcium Carbonate/Vitamin D3 1 Each Tablet, 1 TAB PO BID, (Reported) Cetirizine HCl 10 Mg Tablet, 10 MG PO DAILY, (Reported) Cholecalciferol (Vitamin D3) 2,000 Unit Tablet, 2,000 UNIT PO NOON, (Reported) Cyclobenzaprine HCl 10 Mg Tablet, 10 MG PO TID, (Reported) Cyclosporine 1 Each Droperette, 1 DROP OU BID, (Reported) Diltiazem HCl 360 Mg Tab.er.24h, 360 MG PO DAILY, (Reported) Dofetilide 250 Mcg Capsule, 250 MCG PO BID Prescribed by: Janiya CORDOVA on 05/31/19 1214 Famotidine 20 Mg Tablet, 20 MG PO DAILY PRN for HEARTBURN, (Reported) Ferrous Sulfate 325 Mg Tablet, 325 MG PO 1800, (Reported) Fluticasone/Vilanterol 1 Each Blst.w.dev, 1 EACH IH DAILY, (Reported) Gabapentin 800 Mg Tablet, 800 MG PO QID, (Reported) Glucosamine/D3/Boswellia Nellie 1 Each Tablet, 1 EACH PO BID, (Reported) Hydroxyzine HCl 10 Mg Tablet, 10 MG PO TID, (Reported) Imipramine HCl 50 Mg Tablet, 50 MG PO HS, (Reported) Insulin Aspart 300 Units/3 Ml Solution, 6 UNITS SQ TIDAC, (Reported) Insulin Glargine,Hum.rec.anlog 100 Unit/1 Ml Vial, 20 UNIT SQ HS, (Reported) Lactobacillus Rhamnosus GG 1 Each Capsule, 1 CAP PO DAILY PRN for WHILE TAKING ANTIBIOTICS, (Reported) Lisinopril 20 Mg Tablet, 20 MG PO DAILY, (Reported) Metformin HCl 1,000 Mg Tablet, 1,000 MG PO BID, (Reported) Mineral Oil/Petrolatum,White 3.5 Gm Oint...g., OU HS, (Reported) Mirabegron 50 Mg Tab.er.24h, 50 MG PO DAILY, (Reported) Multivitamin 1 Each Tablet, 1 EACH PO DAILY, (Reported) Nitrofurantoin Macrocrystal 100 Mg Capsule, 100 MG PO HS, (Reported) [place] 3 Polyunsat Fatty Acids 1,000 Mg Cap, 1,000 MG PO TID, (Reported) Oxycodone HCl/Acetaminophen 1 Each Tablet, 1 TAB PO EVERY 4-6 HOURS PRN for PAIN-MODERATE (5-7), (Reported) Polyethylene Glycol 3350 17 Gm Powd.pack, 17 GM PO DAILY PRN for CONSTIPATION- 2ND LINE, (Reported) Polyvinyl Alcohol/Povidone 15 Ml Drops, 2 DROPS OU Q4H PRN for DRY EYES, (Reported) Prasugrel HCl 10 Mg Tablet, 10 MG PO DAILY, (Reported) Primidone 250 Mg Tablet, 250 MG PO TID, (Reported) Sennosides/Docusate Sodium 1 Each Tablet, 1 EACH PO DAILY, (Reported) Solifenacin Succinate 10 Mg Tablet, 10 MG PO 1600, (Reported) Venlafaxine HCl 75 Mg Cap.er.24h, 75 MG PO DAILY, (Reported) Warfarin Sodium 4 Mg Tablet, 4 MG PO SuMTuWThSa@1600, (Reported) Warfarin Sodium 4 Mg Tablet, 2 MG PO tuesday@1600, (Reported) Patient Home Medication List Home Medication List Reviewed: Yes Review of Systems Review of Systems Constitutional: No chills, No fever, No weakness Eyes: No Symptoms Reported Ears, Nose, Mouth, Throat: no symptoms reported Respiratory: No cough, No short of breath Cardiovascular: No chest pain, No edema Gastrointestinal: No abdominal pain, No nausea, No vomiting Genitourinary: no symptoms reported Musculoskeletal: joint pain, muscle pain, neck pain Skin: no symptoms reported Psychiatric/Neurological: Headache; Denies Weakness All Other Systems Reviewed Negative Unless Noted: Yes Past Pehzuzp-Exzwdd-Jthsvu Hx Past Med/Social Hx: Reviewed Nursing Past Med/Soc Hx Patient Social History Alcohol Use: Denies Use Recreational Drug Use: No Type Used: Cigarettes Former Smoker, Quit: May 18, 1980 2nd Hand Smoke Exposure: No Recent Hopitalizations: No Immunizations Up To Date Tetanus Booster (TDap): Unknown PED Vaccines UTD: Yes Date of Pneumonia Vaccine: Feb 14, 2017 Date of Influenza Vaccine: Jan 14, 2019 Seasonal Allergies Seasonal Allergies: No Past Medical History Surgeries: Yes (STENTS PLACED NOVEMBER 2018) Cardiac, Coronary Stent, Eye Surgery, Orthopedic Respiratory: Yes Asthma, Sleep Apnea Currently Using CPAP: Yes (wears cpap at night with no o2, brought her machine and her meds with her) Currently Using BIPAP: No Cardiac: Yes Atrial Fibrillation, Chronic Edema/Swelling, Coronary Artery Disease, Deep Vein Thrombosis, Heart Attack, High Cholesterol, Hypertension Neurological: Yes Neuropathy 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 Disorders: Yes Female 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 Disorders: Denies [employer]IST History: Menopausal Sexually Transmitted Disease: No HIV/AIDS: No Genitourinary: Yes UTI-Chronic Gastrointestinal: Yes Gastroesophageal Reflux, Chronic Constipation Musculoskeletal: Yes Degenerate Disk Disease, Arthritis, Chronic Back Pain Endocrine: Yes (MORBID OBESITY) Diabetes, Insulin dep HEENT: Yes Cataract Loss of Vision: Bilateral Hearing Impairment: Denies Cancer: No Uterine Did You Recieve Any Treatments: Yes What Type of Treatment Did You: Surgical Intervention Psychosocial: Yes Anxiety, Depression Integumentary: No Blood Disorders: No Adverse Reaction/Blood Tranf: No Family Medical History Reviewed Nursing Family Hx Cardiovascular disease 19 FATHER 19 MOTHER Colon cancer 19 FATHER 19 MOTHER Diabetes mellitus 19 MOTHER G8 BROTHER G8 SISTER Myocardial infarction 19 FATHER No Pertinent Family Hx Physical Exam Vital Signs Vital Signs - First Documented 12/20/19 01:21 Temp 36.8 Pulse 120 Resp 22 B/P (MAP) 141/93 (109) Pulse Ox 98 O2 Delivery Room Air Capillary Refill : Height, Weight, BMI Height: 5'10.50" Weight: 302lbs. 0.0oz. 136.785446vq; 40.48 BMI Method:Stated General Appearance: WD/WN, no apparent distress, obese HEENT: PERRL/EOMI, TMs normal, pharynx normal Neck: non-tender, supple Cardiovascular: no murmur, tachycardia Respiratory: lungs clear, normal breath sounds Gastrointestinal: non tender, soft Back: no CVA tenderness; No vertebral tenderness Extremities: pelvis stable, other (tender in the region of the right shoulder and right hip. Retains full range of motion of the right shoulder. Significant pain when standing per EMS to the right hip.) Neurologic/Psychiatric: alert, oriented x 3 Skin: normal color, warm/dry [place] Coma Score Best Eye Response: (4) Open Spontaneously Best Verbal Response: (5) Oriented Best Motor Response: (6) Obeys Commands Progress/Results/Core Measures Results/Orders Lab Results Laboratory Tests Test 12/20/19 01:15 Range/Units White Blood Count 9.4 4.3-11.0 10^3/uL Red Blood Count 4.66 4.35-5.85 10^6/uL Hemoglobin 13.3 11.5-16.0 G/DL Hematocrit 40 35-52 % Mean Corpuscular Volume 86 80-99 FL Mean Corpuscular Hemoglobin 29 25-34 PG Mean Corpuscular Hemoglobin Concent 33 32-36 G/DL Red Cell Distribution Width 14.9 H 10.0-14.5 % Platelet Count 267 130-400 10^3/uL Mean Platelet Volume 10.2 7.4-10.4 FL Neutrophils (%) (Auto) 59 42-75 % Lymphocytes (%) (Auto) 28 12-44 % Monocytes (%) (Auto) 10 0-12 % Eosinophils (%) (Auto) 3 0-10 % Basophils (%) (Auto) 0 0-10 % Neutrophils # (Auto) 5.5 1.8-7.8 X 10^3 Lymphocytes # (Auto) 2.7 1.0-4.0 X 10^3 Monocytes # (Auto) 0.9 0.0-1.0 X 10^3 Eosinophils # (Auto) 0.3 0.0-0.3 10^3/uL Basophils # (Auto) 0.0 0.0-0.1 10^3/uL Prothrombin Time 24.3 H 12.2-14.7 SEC INR Comment 2.1 H 0.8-1.4 Activated Partial Thromboplast Time 41 H 24-35 SEC Sodium Level 136 135-145 MMOL/L Potassium Level 4.6 3.6-5.0 MMOL/L Chloride Level 99 98-107 MMOL/L Carbon Dioxide Level 21 21-32 MMOL/L Anion Gap 16 H 5-14 MMOL/L Blood Urea Nitrogen 19 H 7-18 MG/DL Creatinine 0.76 0.60-1.30 MG/DL Estimat Glomerular Filtration Rate > 60 BUN/Creatinine Ratio 25 Glucose Level 115 H 70-105 MG/DL Calcium Level 9.1 8.5-10.1 MG/DL Corrected Calcium 9.1 8.5-10.1 MG/DL Total Bilirubin 0.2 0.1-1.0 MG/DL Aspartate Amino Transf (AST/SGOT) 29 5-34 U/L Alanine Aminotransferase (ALT/SGPT) 42 0-55 U/L Alkaline Phosphatase 165 H 40-136 U/L Total Protein 7.8 6.4-8.2 GM/DL Albumin 4.0 3.2-4.5 GM/DL My Orders Orders - STEPHANE GAMINO MD Cbc With Automated Diff (12/20/19 01:13) Comprehensive Metabolic Panel (12/20/19 01:13) Protime With Inr (12/20/19 01:13) Partial Thromboplastin Time (12/20/19 01:13) Ct Head/Cervical Spine Wo (12/20/19 01:13) Shoulder, Right, 3 Views (12/20/19 01:57) Pelvis With Right Hip 2-3views (12/20/19 01:57) Vital Signs/I&O 12/20/19 01:21 Temp 36.8 Pulse 120 Resp 22 B/P (MAP) 141/93 (109) Pulse Ox 98 O2 Delivery Room Air Progress Progress Note : Progress Note Seen and evaluated. IV by EMS. Labs, CT head and neck, x-ray right shoulder, pelvis and right hip ordered. Monitor patient. 0340: No acute fractures and CT is negative. Patient will take one of her own home pain medicines that she is due now. Discharged home with return precautions. Patient verbalize understanding instructions and agreement with plan. Diagnostic Imaging Diagonstic Imaging: Xray Plain Films/CT/US/NM/MRI: pelvis, hip Comments No acute fracture or findings Diagonstic Imaging: Xray Plain Films/CT/US/NM/MRI: other Comments Right shoulder no acute fractures Diagonstic Imaging: CT Plain Films/CT/US/NM/MRI: c-spine, head Comments No acute hemorrhage, hydrocephalus or mass effect. No acute fracture or subluxation. Heterogenous grand last opacities in the upper lobes. Possibly related to poor expiratory effort versus edema. Reviewed: Reviewed [facility] Study Departure Impression Primary Impression: Right shoulder injury Qualified Codes: S49.91XA - Unspecified injury of right shoulder and upper arm, initial encounter Additional Impressions: Injury of right hip Qualified Codes: S79.911A - Unspecified injury of right hip, initial encounter Minor head injury Qualified Codes: S09.90XA - Unspecified injury of head, initial encounter Disposition: 01 HOME, SELF-CARE Condition: Stable Departure-Patient Inst. Decision time for Depature: 03:43 Referrals: DELIA TRIANA MD (PCP/Family) Primary Care Physician Patient Instructions: Hip Pain (DC), Minor Head Injury (DC), Shoulder Sprain (DC) Add. Discharge Instructions: All discharge instructions reviewed with patient and/or family. Voiced understanding. Continue home pain medicines as previously prescribed. Follow-up with your DrArchana in one to 2 days for recheck and further evaluation if not improved. Return for worse pain, fever, vomiting, weakness, breathing problems or other concerns as needed. STEPHANE GAMINO MD Dec 20, 2019 01:25
[2019-12-20 01:34] LABS: INR 2.1 (0.8-1.4); PROTHROMBIN TIME PATIENT 24.3 SEC (12.2-14.7)
[2019-12-20 01:40] LABS: ALANINE AMINOTRANSFERASE 42 U/L (0-55); ALKALINE PHOSPHATASE 165 U/L (40-136); BILIRUBIN,TOTAL 0.2 MG/DL (0.1-1.0); BUN/CREATININE RATIO 25; CALCIUM 9.1 MG/DL (8.5-10.1); CARBON DIOXIDE 21 MMOL/L (21-32); CHLORIDE 99 MMOL/L (98-107); CREATININE SERUM 0.76 MG/DL (0.60-1.30); GFR ESTIMATED > 60; GLUCOSE 115 MG/DL (70-105); POTASSIUM 4.6 MMOL/L (3.6-5.0); SODIUM 136 MMOL/L (135-145); TOTAL PROTEIN 7.8 GM/DL (6.4-8.2)
[2019-12-20 04:01] VITALS: BP 124/63
--- NOTE | 2019-12-20 05:34 | Diagnostic Imaging Report ---
INDICATION: Fall. Right hip pain. COMPARISON: None. FINDINGS: AP view of the pelvis and 2 dedicated radiographic views of the right hip were obtained. There is no fracture, dislocation, bone destruction, or radiopaque foreign body. The visualized pelvic osseous structures and the SI joints demonstrate no acute fracture or dislocation. There is no bone destruction or radiopaque foreign body. The surrounding soft tissue structures are unremarkable. Large amount of air and stool is noted within the included portions of the colon. IMPRESSION: 1. No acute fracture or dislocation in the pelvis or right hip. Dictated by: Dictated on workstation # [id number]
--- NOTE | 2019-12-20 05:42 | Diagnostic Imaging Report ---
INDICATION: Pain status post fall COMPARISON: None. FINDINGS: 3 views of the right shoulder were obtained. There is no fracture, dislocation, or other acute bony abnormality identified. Two orthopedic anchor screws are noted within the humeral head. Note is made of narrowing of the acromiohumeral joint space. The soft tissues appear unremarkable. No radiopaque foreign bodies identified. The visualized portions of the right lung are clear. IMPRESSION: 1. No acute fractures or dislocations of the right shoulder. 2. Mild narrowing of the acromiohumeral joint space. Findings do raise concern for underlying rotator cuff tear. Dictated by: Dictated on workstation # [id number]
--- NOTE | 2019-12-20 07:56 | Diagnostic Imaging Report ---
PROCEDURE: CT head and CT cervical spine without contrast. TECHNIQUE: Multiple contiguous axial images were obtained through the brain and cervical spine without the use of intravenous contrast. Sagittal and coronal reformations through the cervical spine were then performed. Auto Exposure Controls were utilized during the CT exam to meet ALARA standards for radiation dose reduction. INDICATION: Fall. Pain. Injury. COMPARISON: 05/16/2019 FINDINGS: CT head: The ventricles and cortical sulci are diffusely prominent, compatible with age-related volume loss. There are confluent areas of abnormal, low attenuation in the periventricular white matter. This is consistent with chronic small vessel ischemic changes. There is no midline shift or mass-effect. No acute intra-axial hemorrhage is seen. There are no abnormal areas of increased or decreased density to suggest acute hemorrhage or edema. No extra-axial masses or collections are present. The bony calvarium is intact. The visualized paranasal sinuses are unremarkable. The mastoid air cells are clear. CT cervical spine: Evaluation static alignment shows slight grade 1 anterolisthesis at the C5-C6 level. There is no evidence of jumped facets. Findings may be degenerative. Vertebral body heights are preserved. There is no acute fracture. No bony fragments are seen within the spinal canal. There are moderate to advanced multilevel degenerative changes consistent with intervertebral disc height loss with anterior posterior disc osteophyte complex formations and multilevel facet arthropathy. These changes appear greatest at the C6-C7 level. Pre and paravertebral soft tissue structures are unremarkable. Note is made of calcified carotid atherosclerosis. Included portions of the lung apices show geographic groundglass opacities. IMPRESSION: 1. No acute intracranial abnormality. No CT evidence of mass, acute infarct or intracranial hemorrhage. 2. Chronic small vessel ischemic changes in deep white matter. 3. No acute fracture or dislocation cervical spine. 4. Moderate to advanced degenerative changes of the cervical spine, greatest at C6-C7. 5. Groundglass opacities within the included portions of the upper lungs. Findings are nonspecific, but may be seen with air trapping as well as pulmonary edema. Clinical correlation is recommended. Dictated by: Dictated on workstation # [id number]
--- NOTE | 2019-12-20 12:07 | NUR ---
SPOKE WITH PATIENT VIA PHONE REGARDING RADIOLOGY OVERREAD TO SHOULDER. PT. VOICED UNDERSTANDING AND WILL MAKE APPOINTMENT TO FOLLOW-UP WITH PCP.
== END 2019-12-20 04:03 | disposition home or self-care (01) ==
LOC: EDUNIT# 01:01 → ER 01:03
DX: S09.90XA Unspecified injury of head, initial encounter (principal); S49.91XA Unspecified injury of right shoulder and upper arm, initial encounter; S79.911A Unspecified injury of right hip, initial encounter; I48.91 Unspecified atrial fibrillation; I25.10 Atherosclerotic heart disease of native coronary artery without angina pectoris; J45.909 Unspecified asthma, uncomplicated; I25.2 Old myocardial infarction; I10 Essential (primary) hypertension; E78.00 Pure hypercholesterolemia, unspecified; G62.9 Polyneuropathy, unspecified; E11.9 Type 2 diabetes mellitus without complications; E66.01 Morbid (severe) obesity due to excess calories; F41.9 Anxiety disorder, unspecified; F32.9 Major depressive disorder, single episode, unspecified; K59.09 Other constipation; G89.29 Other chronic pain; M54.9 Dorsalgia, unspecified; Z68.41 Body mass index [BMI] 40.0-44.9, adult; Z80.0 Family history of malignant neoplasm of digestive organs; Z82.49 Family history of ischemic heart disease and other diseases of the circulatory system; Z85.42 Personal history of malignant neoplasm of other parts of uterus; Z86.718 Personal history of other venous thrombosis and embolism; Z79.01 Long term (current) use of anticoagulants; Z88.8 Allergy status to other drugs, medicaments and biological substances; Z79.82 Long term (current) use of aspirin; Z79.51 Long term (current) use of inhaled steroids; Z79.4 Long term (current) use of insulin; Z87.891 Personal history of nicotine dependence; Z95.5 Presence of coronary angioplasty implant and graft; Z79.02 Long term (current) use of antithrombotics/antiplatelets; W18.39XA Other fall on same level, initial encounter; Y92.009 Unspecified place in unspecified non-institutional (private) residence as the place of occurrence of the external cause
CPT/HCPCS: 36415; 70450; 72125; 73030; 80053; 85025; 85610; 85730

== ENCOUNTER 2020-02-06 10:03 | Observation (INO) | payer MEDICARE, MEDICAID ==
[2020-02-06] VITALS (12 sets, daily range): BP systolic 83–131; BP diastolic 68–96
[~2020-02-06] VITALS: Ht 177.8 cm; Wt 130.4 kg
[~2020-02-06 10:03] MED LIST changes: +ASPI-1238 PO; -ASPI-983 PO; -CETI10TA21 PO; +CETI10TA49 PO; -OXYC-465 PO; +OXYC-556 PO; -WARF2.5T82 PO; +WARF4TAB3 PO; -WARF4TAB70 PO; +WARF7.5T3 PO; -WARF7.5T49 PO; +WRF2.5T PO
[2020-02-06] MEDS ORDERED: NS IV 1000 ML 1,000 ML IV SCH (10:16)
--- NOTE | 2020-02-06 10:20 | ED Cardiac General ---
History of Present Illness General Stated Complaint: AFIB;SOA Source: patient Exam Limitations: no limitations History of Present Illness Date Seen by Provider: Feb 06, 2020 Time Seen by Provider: 10:05 Initial Comments Patient presents to ER by private conveyance with chief complaint that since about 11:00 last night when she used her Xopenex inhaler she started having racing heart rate, shortness of air and she would get lightheaded and start sweating whenever she would stand up. She has a history of atrial flutter however she's had an ablation in September and has not had an episode of rapid ventri cular response since May since starting dofetilide. She is known to Dr. Calvert and Dr. Pate and Dr. Russell for her ablation. She is not having cough fever chills nausea vomiting or chest pain. She says she took all of her medications this morning and has recorded several low blood pressures in the 90s systolic overnight before she decided to come in today because this is not s pontaneously resolving. She has not been out of her medications. She is taking warfarin. Allergies and Home Medications Allergies Coded Allergies: black cohosh (Verified Allergy, Unknown, 08/07/15) glyburide (Verified Allergy, Unknown, 08/07/15) isosorbide (Verified Allergy, Unknown, 08/07/15) Uncoded Allergies: ARCABOSE (Allergy, Mild, Abdominal Pain, 10/01/19) GAS PAINS Home Medications Acetaminophen 500 Mg Tablet, 1,000 MG PO DAILY PRN, (Reported) Amlodipine Besylate 5 Mg Tablet, 5 MG PO DAILY Prescribed by: AMANDEEP VILLANUEVA on 06/02/19 1055 Aspirin 81 Mg Tablet.dr, 81 MG PO DAILY, (Reported) Atorvastatin Calcium 80 Mg Tablet, 80 MG PO HS, (Reported) Calcium Carbonate/Vitamin D3 1 Each Tablet, 1 TAB PO BID, (Reported) Cetirizine HCl 10 Mg Tablet, 10 MG PO DAILY, (Reported) Cholecalciferol (Vitamin D3) 2,000 Unit Tablet, 2,000 UNIT PO NOON, (Reported) Cyclobenzaprine HCl 10 Mg Tablet, 10 MG PO TID, (Reported) Cyclosporine 1 Each Droperette, 1 DROP OU BID, (Reported) Diltiazem HCl 360 Mg Tab.er.24h, 360 MG PO DAILY, (Reported) Dofetilide 250 Mcg Capsule, 250 MCG PO BID Prescribed by: Janiya RUSSELL on 05/31/19 1214 Famotidine 20 Mg Tablet, 20 MG PO DAILY PRN for HEARTBURN, (Reported) Ferrous Sulfate 325 Mg Tablet, 325 MG PO 1800, (Reported) Fluticasone/Vilanterol 1 Each Blst.w.dev, 1 EACH IH DAILY, (Reported) Gabapentin 800 Mg Tablet, 800 MG PO QID, (Reported) Glucosamine/D3/Boswellia Nellie 1 Each Tablet, 1 EACH PO BID, (Reported) Hydroxyzine HCl 10 Mg Tablet, 10 MG PO TID, (Reported) Imipramine HCl 50 Mg Tablet, 50 MG PO HS, (Reported) Insulin Aspart 300 Units/3 Ml Solution, 6 UNITS SQ TIDAC, (Reported) Insulin Glargine,Hum.rec.anlog 100 Unit/1 Ml Vial, 20 UNIT SQ HS, (Reported) Lactobacillus Rhamnosus GG 1 Each Capsule, 1 CAP PO DAILY PRN for WHILE TAKING ANTIBIOTICS, (Reported) Lisinopril 20 Mg Tablet, 20 MG PO DAILY, (Reported) Metformin HCl 1,000 Mg Tablet, 1,000 MG PO BID, (Reported) Mineral Oil/Petrolatum,White 3.5 Gm Oint...g., OU HS, (Reported) Mirabegron 50 Mg Tab.er.24h, 50 MG PO DAILY, (Reported) Multivitamin 1 Each Tablet, 1 EACH PO DAILY, (Reported) Nitrofurantoin Macrocrystal 100 Mg Capsule, 100 MG PO HS, (Reported) Tsaile 3 Polyunsat Fatty Acids 1,000 Mg Cap, 1,000 MG PO TID, (Reported) Oxycodone HCl/Acetaminophen 1 Each Tablet, 1 TAB PO EVERY 4-6 HOURS PRN for PAIN-MODERATE (5-7), (Reported) Polyethylene Glycol 3350 17 Gm Powd.pack, 17 GM PO DAILY PRN for CONSTIPATION- 2ND LINE, (Reported) Polyvinyl Alcohol/Povidone 15 Ml Drops, 2 DROPS OU Q4H PRN for DRY EYES, (Reported) Prasugrel HCl 10 Mg Tablet, 10 MG PO DAILY, (Reported) Primidone 250 Mg Tablet, 250 MG PO TID, (Reported) Sennosides/Docusate Sodium 1 Each Tablet, 1 EACH PO DAILY, (Reported) Solifenacin Succinate 10 Mg Tablet, 10 MG PO 1600, (Reported) Venlafaxine HCl 75 Mg Cap.er.24h, 75 MG PO DAILY, (Reported) Warfarin Sodium 4 Mg Tablet, 4 MG PO SuMT@1600, (Reported) Warfarin Sodium 4 Mg Tablet, 2 MG PO tuesday@1600, (Reported) Patient Home Medication List Home Medication List Reviewed: Yes Review of Systems Review of Systems Constitutional: No chills; diaphoresis, weakness EENTM: No Blurred Vision, No Double Vision Respiratory: Denies Cough; Shortness of Air, SOA With Exertion Cardiovascular: Denies Chest Pain; Irregular Heart Rate, Lightheadedness; Denies Palpitations, Denies Syncope Gastrointestinal: Denies Abdomen Distended, Denies Abdominal Pain Genitourinary: Denies Burning, Denies Discharge Musculoskeletal: No back pain, No joint pain Skin: No change in color, No change in hair/nails, No dryness Psychiatric/Neurological: Denies Anxiety, Denies Headache Endocrine: Denies Intolerance to Cold, Denies Intolerance to Heat, Denies Increased Hunger, Denies Increased Thrist, Denies Increased Urine Hematologic/Lymphatic: Denies Anemia, Denies Blood Clots; Easy Bleeding All Other Systems Reviewed Negative Unless Noted: Yes Past Wudnqwk-Pgouls-Oxgniv Hx Patient Social History Alcohol Use: Denies Use Recreational Drug Use: No Smoking Status: Never a Smoker Type Used: Cigarettes Former Smoker, Quit: May 18, 1980 2nd Hand Smoke Exposure: No Recent Foreign Travel: No Contact w/Someone Who Travel: No Recent Hopitalizations: No Immunizations Up To Date Tetanus Booster (TDap): Less than 5yrs PED Vaccines UTD: Yes Date of Pneumonia Vaccine: Feb 14, 2017 Date of Influenza Vaccine: Jan 14, 2019 Seasonal Allergies Seasonal Allergies: No Past Medical History Surgeries: Yes (STENTS PLACED NOVEMBER 2018) Cardiac, Coronary Stent, Eye Surgery, Orthopedic Respiratory: Yes Asthma, Sleep Apnea Currently Using CPAP: Yes (wears cpap at night with no o2, brought her machine and her meds with her) Currently Using BIPAP: No Cardiac: Yes Atrial Fibrillation, Chronic Edema/Swelling, Coronary Artery Disease, Deep Vein Thrombosis, Heart Attack, High Cholesterol, Hypertension Neurological: Yes Neuropathy 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 Disorders: Yes Female 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 Disorders: Denies 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 Sexually Transmitted Disease: No HIV/AIDS: No Genitourinary: Yes UTI-Chronic Gastrointestinal: Yes Gastroesophageal Reflux, Chronic Constipation Musculoskeletal: Yes Degenerate Disk Disease, Arthritis, Chronic Back Pain Endocrine: Yes (MORBID OBESITY) Diabetes, Insulin dep HEENT: Yes Cataract Loss of Vision: Bilateral Hearing Impairment: Denies Cancer: No Uterine Did You Recieve Any Treatments: Yes What Type of Treatment Did You: Surgical Intervention Psychosocial: Yes Anxiety, Depression Integumentary: No Blood Disorders: No Adverse Reaction/Blood Tranf: No Family Medical History Cardiovascular disease 19 FATHER 19 MOTHER Colon cancer 19 FATHER 19 MOTHER Diabetes mellitus 19 MOTHER G8 BROTHER G8 SISTER Myocardial infarction 19 FATHER No Pertinent Family Hx Physical Exam Vital Signs Vital Signs - First Documented 02/06/20 10:03 Temp 36.3 Pulse 120 Resp 18 B/P (MAP) 145/104 (118) Pulse Ox 100 O2 Delivery Room Air Capillary Refill : Height, Weight, BMI Height: 5'10.50" Weight: 302lbs. 0.0oz. 136.824514ul; 40.00 BMI Method:Stated General Appearance: No Apparent Distress, WD/WN HEENT: Normal ENT Inspection, Pharynx Normal Neck: Full Range of Motion, Normal Inspection Respiratory: Lungs Clear, Normal Breath Sounds, No Accessory Muscle Use, No Respiratory Distress Cardiovascular: Regular Rate, Rhythm, No Edema, Irregularly Irregular, Tachycardia Gastrointestinal: Normal Bowel Sounds, No Organomegaly Extremity: Normal Capillary Refill, Normal Inspection, Normal Range of Motion Neurologic/Psychiatric: Alert, Oriented x3 Skin: Normal Color, Warm/Dry Progress/Results/Core Measures Results/Orders Lab Results Laboratory Tests Test 02/06/20 10:15 02/06/20 10:16 Range/Units Prothrombin Time 29.1 H 12.2-14.7 SEC INR Comment 2.7 H 0.8-1.4 Activated Partial Thromboplast Time 39 H 24-35 SEC White Blood Count 9.1 4.3-11.0 10^3/uL Red Blood Count 4.74 3.80-5.11 10^6/uL Hemoglobin 13.5 11.5-16.0 g/dL Hematocrit 41 35-52 % Mean Corpuscular Volume 87 80-99 fL Mean Corpuscular Hemoglobin 29 25-34 pg Mean Corpuscular Hemoglobin Concent 33 32-36 g/dL Red Cell Distribution Width 14.9 H 10.0-14.5 % Platelet Count 346 130-400 10^3/uL Mean Platelet Volume 10.5 9.0-12.2 fL Immature Granulocyte % (Auto) 0 % Neutrophils (%) (Auto) 47 42-75 % Lymphocytes (%) (Auto) 39 12-44 % Monocytes (%) (Auto) 8 0-12 % Eosinophils (%) (Auto) 6 0-10 % Basophils (%) (Auto) 0 0-10 % Neutrophils # (Auto) 4.3 1.8-7.8 10^3/uL Lymphocytes # (Auto) 3.5 1.0-4.0 10^3/uL Monocytes # (Auto) 0.7 0.0-1.0 10^3/uL Eosinophils # (Auto) 0.5 H 0.0-0.3 10^3/uL Basophils # (Auto) 0.0 0.0-0.1 10^3/uL Immature Granulocyte # (Auto) 0.0 0.0-0.1 10^3/uL Sodium Level 136 135-145 MMOL/L Potassium Level 4.7 3.6-5.0 MMOL/L Chloride Level 101 98-107 MMOL/L Carbon Dioxide Level 22 21-32 MMOL/L Anion Gap 13 5-14 MMOL/L Blood Urea Nitrogen 22 H 7-18 MG/DL Creatinine 0.84 0.60-1.30 MG/DL Estimat Glomerular Filtration Rate > 60 BUN/Creatinine Ratio 26 Glucose Level 146 H 70-105 MG/DL Calcium Level 9.0 8.5-10.1 MG/DL Corrected Calcium 9.2 8.5-10.1 MG/DL Total Bilirubin 0.1 0.1-1.0 MG/DL Aspartate Amino Transf (AST/SGOT) 40 H 5-34 U/L Alanine Aminotransferase (ALT/SGPT) 48 0-55 U/L Alkaline Phosphatase 168 H 40-136 U/L Troponin I < 0.028 <0.028 NG/ML Total Protein 7.8 6.4-8.2 GM/DL Albumin 3.8 3.2-4.5 GM/DL Thyroid Stimulating Hormone (TSH) 2.96 0.35-4.94 UIU/ML My Orders Orders - SIVAKUMAR CONTRERAS Troponin I (02/06/20 10:16) Chest 1 View, Ap/Pa Only (02/06/20 10:16) Ekg Tracing (02/06/20 10:16) Ed Iv/Invasive Line Start (02/06/20 10:16) Monitor-Rhythm Ecg Trace Only (02/06/20 10:16) Ed Iv/Invasive Line Start (02/06/20 10:16) Ns Iv 1000 Ml (Sodium Chloride 0.9%) (02/06/20 10:16) Aspirin Chewable Tablet (Baby Aspirin Ch (02/06/20 10:30) Thyroid Stimulating Hormone (02/06/20 10:16) Diltiazem Injection (Cardizem Injection) (02/06/20 10:30) Diltiazem Drip Pre-Mix (Cardizem Drip Pr (02/06/20 10:30) Cbc With Automated Diff (02/06/20 10:16) Comprehensive Metabolic Panel (02/06/20 10:16) Protime With Inr (02/06/20 10:20) Partial Thromboplastin Time (02/06/20 10:20) Medications Given in ED Current Medications Medications Dose Ordered Sig/Ashley Route Start Time Stop Time Status Last Admin Dose Admin Aspirin 324 mg ONCE ONCE PO 02/06/20 10:30 02/06/20 10:31 DC 02/06/20 10:35 324 MG Diltiazem HCl 20 mg ONCE ONCE IVP 02/06/20 10:30 02/06/20 10:31 DC 02/06/20 10:36 20 MG Vital Signs/I&O 02/06/20 02/06/20 10:03 11:09 Temp 36.3 Pulse 120 116 Resp 18 18 B/P (MAP) 145/104 (118) 119/92 (101) Pulse Ox 100 98 O2 Delivery Room Air Room Air Progress Progress Note : Time: 10:37 Progress Note The patient is in atrial fibrillation with rapid ventricular response however she has an excellent blood pressure 140/90 so were going to give her 20 mg of Cardizem and put her on a drip. We have talked about putting her in the hospital and she is okay with this plan. She is already on 360 mg Cardizem and take it th is morning. Initial ECG Impression Date: Feb 06, 2020 Initial ECG Impression Time: 10:06 Initial ECG Rate: 121 Initial ECG Rhythm: A Fib/Flutter Initial ECG Intervals: QT (457) Initial ECG Impression: Atrial Fibrillation w/RVR Initial ECG Comparisson: Changed Comment Atrial flutter with rapid ventricular response. Diagnostic Imaging Diagonstic Imaging: Xray Plain Films/CT/US/NM/MRI: chest Comments Implanted monitor. No acute cardiopulmonary process noted. [facility] [place], [place] NAME: ALFREDO KAUFMAN [facility] REC#: [id number] PT STATUS: REG ER : 1950 PHYSICIAN: SIVAKUMAR CONTRERAS MD ADMIT DATE: 02/06/20/ER Draft Date of Exam:02/06/20 CHEST 1 VIEW, AP/PA ONLY INDICATION: Chest pain. Time of exam: 10:41 AM Comparison is made with prior chest from 06/21/2019. Heart size is normal. Cardiac monitoring device overlies the left lung base. The lungs are clear. No infiltrates are seen. There is no effusion or pneumothorax. IMPRESSION: No acute cardiopulmonary process is detected. Dictated on workstation # [id number] Dict: 02/06/20 1054 Trans: 02/06/20 1058 [facility] [id number] Interpreted by: BLOSSOM BOWDEN MD Electronically signed by: Reviewed: Reviewed by Me Departure Communication (Admissions) Time/Spoke to Admitting Phy: 11:00 Dr. Rosales accepts the patient to the ICU for Cardizem drip for a flutter with RVR. She agrees with consultation with Dr. Russell, cardiology. Time/Spoke to Consulting Phy: 10:55 Discussed the case with Dr. Russell and he agrees with Cardizem ip in the ICU and he will come see the patient. Impression Primary Impression: Atrial flutter with rapid ventricular response Additional Impression: Mild dehydration Disposition: ADMITTED INPATIENT Condition: Stable Admissions Decision to Admit Reason: Admit from ER (General) Decision to Admit/Date: Feb 06, 2020 Time/Decision to Admit Time: 10:15 Departure-Patient Inst. Referrals: DELIA TRIANA MD (PCP/Family) Primary Care Physician SIVAKUMAR CONTRERAS Feb 06, 2020 10:20
[2020-02-06 10:23] LABS: BASOPHILS % (AUTO) 0 % (0-10); EOSINOPHILS # (AUTO) 0.5 10^3/uL (0.0-0.3); EOSINOPHILS % (AUTO) 6 % (0-10); HEMATOCRIT 41 % (35-52); HEMOGLOBIN 13.5 g/dL (11.5-16.0); LYMPHOCYTES # (AUTO) 3.5 10^3/uL (1.0-4.0); LYMPHOCYTES % (AUTO) 39 % (12-44); MEAN CORPUSCULAR HEMOGLOBIN 29 pg (25-34); MEAN CORPUSCULAR HGB CONC 33 g/dL (32-36); MEAN CORPUSCULAR VOLUME 87 fL (80-99); MEAN PLATELET VOLUME 10.5 fL (9.0-12.2); MONOCYTES # (AUTO) 0.7 10^3/uL (0.0-1.0); MONOCYTES % (AUTO) 8 % (0-12); NEUTROPHILS # (AUTO) 4.3 10^3/uL (1.8-7.8); NEUTROPHILS % (AUTO) 47 % (42-75); PLATELET COUNT 346 10^3/uL (130-400); WHITE BLOOD COUNT 9.1 10^3/uL (4.3-11.0)
[2020-02-06] MEDS ORDERED: dilTIAZem DRIP PRE-MIX 125 ML IV SCH (10:30)
[2020-02-06] MEDS ORDERED: ASPIRIN 81 MG CHEW (CHILDREN'S ASA) PO ONE (10:30)
[2020-02-06 10:32] LABS: ALBUMIN 3.8 GM/DL (3.2-4.5)
[2020-02-06 10:33] LABS: CHLORIDE 101 MMOL/L (98-107); POTASSIUM 4.7 MMOL/L (3.6-5.0); SODIUM 136 MMOL/L (135-145)
[2020-02-06 10:35] LABS: GLUCOSE 146 MG/DL (70-105); TOTAL PROTEIN 7.8 GM/DL (6.4-8.2)
[2020-02-06 10:35] LABS: INR 2.7 (0.8-1.4); PROTHROMBIN TIME PATIENT 29.1 SEC (12.2-14.7)
[2020-02-06 10:36] LABS: CARBON DIOXIDE 22 MMOL/L (21-32)
[2020-02-06 10:37] LABS: BILIRUBIN,TOTAL 0.1 MG/DL (0.1-1.0)
[2020-02-06 10:38] LABS: ALKALINE PHOSPHATASE 168 U/L (40-136)
[2020-02-06 10:39] LABS: CREATININE SERUM 0.84 MG/DL (0.60-1.30); GFR ESTIMATED > 60
[2020-02-06 10:40] LABS: BUN/CREATININE RATIO 26
[2020-02-06 10:42] LABS: ALANINE AMINOTRANSFERASE 48 U/L (0-55)
--- NOTE | 2020-02-06 10:58 | Diagnostic Imaging Report ---
INDICATION: Chest pain. Time of exam: 10:41 AM Comparison is made with prior chest from 06/21/2019. Heart size is normal. Cardiac monitoring device overlies the left lung base. The lungs are clear. No infiltrates are seen. There is no effusion or pneumothorax. IMPRESSION: No acute cardiopulmonary process is detected. Dictated by: Dictated on workstation # [id number]
--- NOTE | 2020-02-06 11:29 | History & Physical-Hospitalist ---
History of Present Illness HPI/Chief Complaint CC: Palpitations HPI: This is a 72yoWF clinic pt of [facility] with a past medical history of resistant atrial flutter who once again presents with a one day history of rapid heart rate that did not resolve on her own. She did have an ablation by Dr. Russell in September. At this current time she denies any pain, she is without any significant nausea and vomiting and she reports that she feels like the Xopenex inhaler is the one that caused her to go back into atrial flutter. Source: patient, RN/MD Exam Limitations: no limitations Date Seen 02/06/20 Time Seen by a Provider: 11:00 Attending Physician Tia Rosales David F MD Referring Physician Date of Admission Feb 06, 2020 at 11:19 Home Medications & Allergies Home Medications Reviewed patient Home Medication Reconciliation performed by pharmacy medication reconciliations instrumentation and control technician and/or nursing. Patients Allergies have been reviewed. Allergies Allergies Coded Allergies black cohosh (Verified Allergy, Unknown, 08/07/15) glyburide (Verified Allergy, Unknown, 08/07/15) isosorbide (Verified Allergy, Unknown, 08/07/15) Uncoded Allergies ARCABOSE ( Allergy, Mild, Abdominal Pain, 10/01/19) GAS PAINS Past Dwluhpi-Nlqzhk-Adyarl Hx Past Med/Social Hx: Reviewed Nursing Past Med/Soc Hx, Reviewed and Corrections made Patient Social History Marrital Status: single Employed/Student: unemployed, retired Alcohol Use: Denies Use Recreational Drug Use: No Smoking Status: Never a Smoker Former Smoker, Quit: May 18, 1980 Type Used: Cigarettes 2nd Hand Smoke Exposure: No Recent Foreign Travel: No Contact w/other who traveled: No Recent Hopitalizations: No Recent Infectious Disease Expo: No Immunizations Up To Date Tetanus Booster (TDap): Less than 5yrs Pediatric: Yes Date of Pneumonia Vaccine: Feb 14, 2017 Date of Influenza Vaccine: Jan 14, 2019 Seasonal Allergies Seasonal Allergies: No Past Medical History Surgeries: Cardiac, Coronary Stent, Eye Surgery, Orthopedic Respiratory: Asthma Currently Using CPAP: Yes (wears cpap at night with no o2, brought her machine and her meds with her) Currently Using BIPAP: No Cardiac: Atrial Fibrillation, Chronic Edema/Swelling, Coronary Artery Disease, Deep Vein Thrombosis, Heart Attack, High Cholesterol, Hypertension Neurological: Neuropathy 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: Yes Sexually Transmitted Disease: No HIV/AIDS: No Female 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 Disorders: Denies Menopausal Genitourinary: UTI-Chronic Gastrointestinal: Gastroesophageal Reflux, Chronic Constipation Musculoskeletal: Degenerate Disk Disease, Arthritis, Chronic Back Pain Endocrine: Diabetes, Insulin dep HEENT: Cataract Loss of Vision: Bilateral Hearing Impairment: Denies Cancer: Uterine Did You Recieve Any Treatments: Yes What Type of Treatment Did You: Surgical Intervention Psychosocial: Anxiety, Depression History of Blood Disorders: No Adverse Reaction to Blood Funez: No Family History Cardiovascular disease 19 FATHER 19 MOTHER Colon cancer 19 FATHER 19 MOTHER Diabetes mellitus 19 MOTHER G8 BROTHER G8 SISTER Myocardial infarction 19 FATHER No Pertinent Family Hx Review of Systems Constitutional: see HPI, malaise, weakness Respiratory: cough Physical Exam Physical Exam Vital Signs Vital Signs - First Documented 02/06/20 10:03 Temp 36.3 Pulse 120 Resp 18 B/P (MAP) 145/104 (118) Pulse Ox 100 O2 Delivery Room Air Capillary Refill : Less Than 3 Seconds Height, Weight, BMI Height: 5'10.50" Weight: 302lbs. 0.0oz. 136.682503dh; 40.00 BMI Method:Stated General Appearance: No Apparent Distress, Anxious, Chronically ill Eyes: Right Eye Normal Inspection, Right Eye PERRL HEENT: PERRL/EOMI, Normal ENT Inspection, Pharynx Normal, Moist Mucous Membranes Neck: Full Range of Motion, Normal Inspection, Non Tender Respiratory: Chest Non Tender, Lungs Clear, Normal Breath Sounds, No Accessory Muscle Use, No Respiratory Distress Cardiovascular: No Edema, No Gallop, No JVD, No Murmur, Normal Peripheral Pulses, Irregularly Irregular, Tachycardia Gastrointestinal: Normal Bowel Sounds, No Organomegaly, No Pulsatile Mass, Non Tender, Soft Back: Normal Inspection, No CVA Tenderness, No Vertebral Tenderness Extremity: Normal Capillary Refill, Normal Inspection, Normal Range of Motion, Non Tender, No Calf Tenderness, No Pedal Edema Neurologic/Psychiatric: Alert, Oriented x3, No Motor/Sensory Deficits, Normal M ood/Affect Skin: Normal Color, Warm/Dry Lymphatic: No Adenopathy Results Results/Procedures Labs Laboratory Tests 02/06/20 10:16 Patient resulted labs reviewed. Assessment/Plan Admission Diagnosis Assessment: Atrial flutter with RVR Chronic pain Chronic disability JENNA Plan: Cardiology consult Supportive care Monitor closely Admission Status: Observation Diagnosis/Problems Diagnosis/Problems (1) Atrial flutter with rapid ventricular response Status: Acute TIA ROSALES DO Feb 06, 2020 11:28
--- NOTE | 2020-02-06 11:50 | NUR ---
PATIENT INFORMED WAITING FOR NURSE TO CALL FOR REPORT
--- NOTE | 2020-02-06 12:18 | NUR ---
UP TO [facility] WITH HELP.
[2020-02-06] MEDS ORDERED: ANTACID SUSP 30 ML UDC (MYLANTA) PO PRN (13:15)
[2020-02-06] MEDS ORDERED: CATHETER FLUSH 10 ML SYR IV PRN (13:15)
[2020-02-06] MEDS ORDERED: ACETAMINOPHEN 325 MG TABLET PO PRN (13:15)
[2020-02-06] MEDS ORDERED: FLU QUAD HIGH DOSE 240 MCG/0.7 ML 2020-21 (FLUZONE) IM ONE (13:30)
[2020-02-06] MEDS: dilTIAZem DRIP 125 MG/125 ML DRIP IV SCH (13:36)
[2020-02-06] MEDS: NS IV 1000 ML 1,000 ML IV SCH ×2 (13:36→21:16)
--- NOTE | 2020-02-06 15:07 | Pulmonary Consultation ---
History of Present Illness History of Present Illness Date of Admission Allergies and Home Medications Allergies Coded Allergies: black cohosh (Verified Allergy, Unknown, 08/07/15) glyburide (Verified Allergy, Unknown, 08/07/15) isosorbide (Verified Allergy, Unknown, 08/07/15) Uncoded Allergies: ARCABOSE (Allergy, Mild, Abdominal Pain, 10/01/19) GAS PAINS Home Medications Acetaminophen 500 Mg Tablet, 1,000 MG PO DAILY PRN, (Reported) Amlodipine Besylate 5 Mg Tablet, 5 MG PO DAILY Prescribed by: AMANDEEP VILLANUEVA on 06/02/19 1055 Aspirin 81 Mg Tablet.dr, 81 MG PO DAILY, (Reported) Atorvastatin Calcium 80 Mg Tablet, 80 MG PO HS, (Reported) Calcium Carbonate/Vitamin D3 1 Each Tablet, 1 TAB PO BID, (Reported) Cetirizine HCl 10 Mg Tablet, 10 MG PO DAILY, (Reported) Cholecalciferol (Vitamin D3) 2,000 Unit Tablet, 2,000 UNIT PO NOON, (Reported) Cyclobenzaprine HCl 10 Mg Tablet, 10 MG PO TID, (Reported) Cyclosporine 1 Each Droperette, 1 DROP OU BID, (Reported) Diltiazem HCl 360 Mg Tab.er.24h, 360 MG PO DAILY, (Reported) Dofetilide 250 Mcg Capsule, 250 MCG PO BID Prescribed by: Janiya CORDOVA on 05/31/19 1214 Famotidine 20 Mg Tablet, 20 MG PO DAILY PRN for HEARTBURN, (Reported) Ferrous Sulfate 325 Mg Tablet, 325 MG PO 1800, (Reported) Fluticasone/Vilanterol 1 Each Blst.w.dev, 1 EACH IH DAILY, (Reported) Gabapentin 800 Mg Tablet, 800 MG PO QID, (Reported) Glucosamine/D3/Boswellia Nellie 1 Each Tablet, 1 EACH PO BID, (Reported) Hydroxyzine HCl 10 Mg Tablet, 10 MG PO TID, (Reported) Imipramine HCl 50 Mg Tablet, 50 MG PO HS, (Reported) Insulin Aspart 300 Units/3 Ml Solution, 6 UNITS SQ TIDAC, (Reported) Insulin Glargine,Hum.rec.anlog 100 Unit/1 Ml Vial, 20 UNIT SQ HS, (Reported) Lactobacillus Rhamnosus GG 1 Each Capsule, 1 CAP PO DAILY PRN for WHILE TAKING ANTIBIOTICS, (Reported) Lisinopril 20 Mg Tablet, 20 MG PO DAILY, (Reported) Metformin HCl 1,000 Mg Tablet, 1,000 MG PO BID, (Reported) Mineral Oil/Petrolatum,White 3.5 Gm Oint...g., OU HS, (Reported) Mirabegron 50 Mg Tab.er.24h, 50 MG PO DAILY, (Reported) Multivitamin 1 Each Tablet, 1 EACH PO DAILY, (Reported) Nitrofurantoin Macrocrystal 100 Mg Capsule, 100 MG PO HS, (Reported) [place] 3 Polyunsat Fatty Acids 1,000 Mg Cap, 1,000 MG PO TID, (Reported) Oxycodone HCl/Acetaminophen 1 Each Tablet, 1 TAB PO EVERY 4-6 HOURS PRN for PAIN-MODERATE (5-7), (Reported) Polyethylene Glycol 3350 17 Gm Powd.pack, 17 GM PO DAILY PRN for CONSTIPATION- 2ND LINE, (Reported) Polyvinyl Alcohol/Povidone 15 Ml Drops, 2 DROPS OU Q4H PRN for DRY EYES, (Reported) Prasugrel HCl 10 Mg Tablet, 10 MG PO DAILY, (Reported) Primidone 250 Mg Tablet, 250 MG PO TID, (Reported) Sennosides/Docusate Sodium 1 Each Tablet, 1 EACH PO DAILY, (Reported) Solifenacin Succinate 10 Mg Tablet, 10 MG PO 1600, (Reported) Venlafaxine HCl 75 Mg Cap.er.24h, 75 MG PO DAILY, (Reported) Warfarin Sodium 4 Mg Tablet, 4 MG PO SuMTuWThSa@1600, (Reported) Warfarin Sodium 4 Mg Tablet, 2 MG PO tuesday@1600, (Reported) Past Mwhjvls-Cngjlp-Mlwfsw Hx Past Med/Social Hx: Reviewed Nursing Past Med/Soc Hx, Reviewed and Corrections made Patient Social History Alcohol Use: Denies Use Recreational Drug Use: No Smoking Status: Never a Smoker Type Used: Cigarettes Former Smoker, Quit: May 18, 1980 2nd Hand Smoke Exposure: No Recent Foreign Travel: No Contact w/Someone Who Travel: No Recent Infectious Disease Expo: No Recent Hopitalizations: No Immunizations Up To Date Tetanus Booster (TDap): Less than 5yrs PED Vaccines UTD: Yes Date of Pneumonia Vaccine: Feb 14, 2017 Date of Influenza Vaccine: Jan 14, 2019 Seasonal Allergies Seasonal Allergies: No Past Medical History Surgeries: Yes (LAD STENTS PLACED NOVEMBER 2018) Cardiac, Coronary Stent, Eye Surgery, Orthopedic Respiratory: Yes Asthma, Sleep Apnea Currently Using CPAP: Yes (wears cpap at night with no o2, brought her machine and her meds with her) Currently Using BIPAP: No Cardiac: Yes Atrial Fibrillation, Chronic Edema/Swelling, Coronary Artery Disease, Deep Vein Thrombosis, Heart Attack, High Cholesterol, Hypertension Neurological: Yes Neuropathy 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 Disorders: Yes Female 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 Disorders: Denies [employer] History: Menopausal Sexually Transmitted Disease: No HIV/AIDS: No Genitourinary: Yes UTI-Chronic Gastrointestinal: Yes Gastroesophageal Reflux, Chronic Constipation Musculoskeletal: Yes Degenerate Disk Disease, Arthritis, Chronic Back Pain Endocrine: Yes (MORBID OBESITY) Diabetes, Insulin dep HEENT: Yes Cataract Loss of Vision: Bilateral Hearing Impairment: Denies Cancer: No Uterine Did You Recieve Any Treatments: Yes What Type of Treatment Did You: Surgical Intervention Psychosocial: Yes Anxiety, Depression Integumentary: No Blood Disorders: No Adverse Reaction/Blood Tranf: No Family Medical History Cardiovascular disease 19 FATHER 19 MOTHER Colon cancer 19 FATHER 19 MOTHER Diabetes mellitus 19 MOTHER G8 BROTHER G8 SISTER Myocardial infarction 19 FATHER No Pertinent Family Hx Sepsis Event Evaluation Height, Weight, BMI Height: 5'10.50" Weight: 302lbs. 0.0oz. 136.397444bm; 40.00 BMI Method:Stated Exam Exam Vital Signs Date Time Temp Pulse Resp B/P (MAP) Pulse Ox O2 Delivery O2 Flow Rate FiO2 02/06/20 14:28 98 Room Air 02/06/20 12:55 108 02/06/20 12:22 115 18 124/88 100 Room Air 02/06/20 11:09 116 18 119/92 (101) 98 Room Air 02/06/20 10:03 36.3 120 18 145/104 (118) 100 Room Air Height & Weight Height: 5'10.50" Weight: 302lbs. 0.0oz. 136.736191au; 40.00 BMI Method:Stated General Appearance: No Apparent Distress HEENT: PERRL/EOMI, TMs Normal, Normal ENT Inspection, Pharynx Normal, Moist Mucous Membranes Neck: Full Range of Motion, Normal Inspection, Non Tender Respiratory: Chest Non Tender, Lungs Clear, Normal Breath Sounds, No Accessory Muscle Use, No Respiratory Distress Cardiovascular: Regular Rate, Rhythm, No Edema, No Gallop, No JVD, No Murmur, Normal Peripheral Pulses Capillary Refill: Less Than 3 Seconds Extremity: Normal Capillary Refill, Normal Inspection, Normal Range of Motion, Non Tender, No Calf Tenderness, No Pedal Edema Neurologic/Psychiatric: Alert, Oriented x3, No Motor/Sensory Deficits, Normal Mood/Affect Skin: Normal Color, Warm/Dry Lymphatic: No Adenopathy Results Lab Laboratory Tests 02/06/20 10:16 TARAH GARVEY DO Feb 06, 2020 15:07
[2020-02-06] MEDS ORDERED: DILT360C36 PO (16:19)
[2020-02-06] MEDS ORDERED: AMLO5TAB9 PO (16:19)
[2020-02-06] MEDS ORDERED: LEVA15HF5 INH (16:19)
[2020-02-06] MEDS ORDERED: NYST1000 PO (16:19)
[2020-02-06] MEDS ORDERED: METO50TA7 PO (16:19)
[2020-02-06] MEDS ORDERED: CHOL10002 PO (16:19)
[2020-02-06] MEDS ORDERED: GLUC-203 PO (16:19)
[2020-02-06] MEDS ORDERED: DOFE250C3 PO (16:19)
[2020-02-06] MEDS ORDERED: VENL150C98 PO (16:25)
--- NOTE | 2020-02-06 16:25 | NUR ---
SPOKE WITH THE PT (I CALLED HER ROOM PHONE), WENT THRU THE EXT MED HISTORY AND CALLED CHRISTIANO SAINI TO COMPLETE THE MED REC LEVALBUTEROL- PT WAS CURRENTLY USING PRIOR TO BEING BUT PT INDICATES SHE IS NO LONGER GOING TO USE- I DID ADD IT TO THE MED REC FOR PROPER DISCHARGE DOCUMENTATION VENLAFAXINE ER 150MG 01-10-2020 #30/30DS METFORMIN 1000MG 01-10-2020 #180/90DS NOVOLOG FLEX PEN 12-03-2019 #5 PENS LANTUS VIAL LAST 12-03-2019 #1VIAL PT WAS ABLE TO NAME ALL HER MEDS WELL WHEN/HOW SHE TAKES
[2020-02-06] MEDS ORDERED: [UNRECOGNIZED DRUG - OTHER] OU PRN (17:00)
[2020-02-06] MEDS ORDERED: NON-FORMULARY MEDICATION 1 EA EA (Gabapentin 800 MG) PO SCH (17:00)
[2020-02-06] MEDS ORDERED: SENNA W/DOCUSATE (SENOKOT S) TABLET PO PRN (17:00)
[2020-02-06] MEDS ORDERED: FAMOTIDINE 20 MG (PEPCID) TABLET PO PRN (17:00)
[2020-02-06] MEDS ORDERED: POLYVINYL ALCOHOL OU PRN (17:00)
[2020-02-06] MEDS ORDERED: NON-FORMULARY MEDICATION 1 EA EA (Lactobacillus Rhamnosus GG (Culturelle) 1 CAP) PO PRN (17:00)
[2020-02-06] MEDS ORDERED: warFARin 4 MG (COUMADIN) TAB PO SCH ×2 (17:00)
[2020-02-06] MEDS ORDERED: NON-FORMULARY MEDICATION 1 EA EA (Insulin Aspart (Novolog Flexpen) 5 UNITS) SQ SCH (17:00)
[2020-02-06] MEDS ORDERED: POVIDONE OU PRN (17:00)
[2020-02-06] MEDS ORDERED: ARTIFICAL TEARS 0.4 ML UNIT DOSE (REFRESH PLUS) OU PRN (17:15)
[2020-02-06] MEDS ORDERED: LACTOBACILLUS ACIDOPHILUS (PROBIOTIC) CAPSULE PO PRN (17:15)
--- NOTE | 2020-02-06 17:18 | Consultation-Cardiology ---
HPI-Cardiology Cardiology Consultation: Date of Consultation 02/06/20 Date of Admission Attending Physician Tia Rosales DO Admitting Physician Martin Goode MD Consulting Physician Janiya RUSSELL MD HPI: Time Seen by a Provider: 13:00 Chief Complaint: Palpitations This is a 69-year-old lady who is well-known to me. She has history of persistent atrial fibrillation refractory to antiarrhythmic therapy, she also has history of CAD, history of PCI to LAD in 2019, morbid obesity, hypertension, hyperlipidemia. She is also intolerant to numerous antiarrhythmic agents. Atrial fibrillation ablation was done in September 2019 with excellent response. She is also on dofetilide. She started a new inhaler few days ago and started to feel palpitations. She also was having low blood pressure. And decided to come to the ER. She is on warfarin for oral anticoagulation. She denies active smoking. She has history of morbid obesity. Pertinent family history is negative. Review of Systems-Cardiology Review of Systems Constitutional: As described under HPI; No As described under HPI, No no symptoms reported, No chills, No fever, No lightheadedness Eyes: No As described under HPI, No no symptoms reported, No blindness, No blurred vision, No contact lenses, No drainage, No decreased acuity, No foreign body sensation, No pain, No vision change Ears/Nose/Throat: No As described under HPI, No no symptoms reported, No chronic hearing loss, No ear discharge, No ear pain, No nasal drainage, No ulcerations Respiratory: No no symptoms reported; As described under HPI; No As described under HPI, No cough, No orthopnea, No shortness of breath, No SOB with excertion Cardiovascular: No no symptoms reported; As described under HPI; No As described under HPI, No chest pain, No edema, No irregular heart rate, No lightheadedness; palpitations Gastrointestinal: No no symptoms reported, No As described under HPI, No abdomen distended, No abdominal pain, No blood streaked bowels, No constipation, No diarrhea, No nausea, No vomiting, No stool coloration changes Genitourinary: No As described under HPI, No burning, No dysuria, No discharge, No frequency, No flank pain, No hematuria, No urgency : Yes : No Skin: No rash, No skin related problems, No ulcerations Psychiatric/Neurological: No anxiety, No depression, No seizure, No focal weakness, No syncope Hematologic: No bleeding abnormalities All Other Systems Reviewed Negative Unless Noted: Yes PWJ-Bjpsve-Chkujh Hx Patient Social History Marrital Status: single Employed/Student: unemployed, retired Alcohol Use: Denies Use Recreational Drug Use: No Smoking Status: Never a Smoker Former smoker/When Quit: Aug 07, 1980 Type Used: Cigarettes 2nd Hand Smoke Exposure: No Recent Foreign Travel: No Recent Infectious Disease Expo: No Hospitalization with Isolation: Denies Immunizations Up To Date Tetanus Booster (TDap): Less than 5yrs Date of Pneumonia Vaccine: Feb 14, 2017 Date of Influenza Vaccine: Jan 14, 2019 Past Medical History PMH As described under Assessment. Family Medical History Family History: Cardiovascular disease 19 FATHER 19 MOTHER Colon cancer 19 FATHER 19 MOTHER Diabetes mellitus 19 MOTHER G8 BROTHER G8 SISTER Myocardial infarction 19 FATHER Allergies and Home Medications Allergies Coded Allergies: black cohosh (Verified Allergy, Unknown, 08/07/15) glyburide (Verified Allergy, Unknown, 08/07/15) isosorbide (Verified Allergy, Unknown, 08/07/15) Uncoded Allergies: ARCABOSE (Allergy, Mild, Abdominal Pain, 10/01/19) GAS PAINS Home Medications Acetaminophen 500 Mg Tablet, 1,000 MG PO DAILY PRN, (Reported) Amlodipine Besylate 5 Mg Tablet, 5 MG PO DAILY, (Reported) Aspirin 81 Mg Tablet.dr, 81 MG PO DAILY, (Reported) Atorvastatin Calcium 80 Mg Tablet, 80 MG PO HS, (Reported) Calcium Carbonate/Vitamin D3 1 Each Tablet, 1 TAB PO BID, (Reported) Cetirizine HCl 10 Mg Tablet, 10 MG PO DAILY, (Reported) Cholecalciferol (Vitamin D3) 25 Mcg Tablet, 25 MCG PO 1200, (Reported) Cyclobenzaprine HCl 10 Mg Tablet, 10 MG PO 1200,1800,2200, (Reported) Cyclosporine 1 Each Droperette, 1 DROP OU BID, (Reported) Diltiazem HCl 360 Mg Cap.er.24h, 360 MG PO DAILY, (Reported) Dofetilide 250 Mcg Capsule, 250 MCG PO BID, (Reported) Famotidine 20 Mg Tablet, 20 MG PO DAILY PRN for HEARTBURN, (Reported) Ferrous Sulfate 325 Mg Tablet, 325 MG PO 1800, (Reported) Fluticasone/Vilanterol 1 Each Blst.w.dev, 1 EACH IH DAILY, (Reported) Gabapentin 800 Mg Tablet, 800 MG PO QID, (Reported) Glucosam/Chond/Hyalu/Cf Borate 1 Each Tablet, 1 EACH PO BID, (Reported) Hydroxyzine HCl 10 Mg Tablet, 10 MG PO TID, (Reported) Imipramine HCl 50 Mg Tablet, 50 MG PO HS, (Reported) Insulin Aspart 300 Units/3 Ml Solution, 5-6 UNITS SQ TIDAC, (Reported) Insulin Glargine,Hum.rec.anlog 100 Unit/1 Ml Vial, 18 UNIT SQ HS, (Reported) Lactobacillus Rhamnosus GG 1 Each Capsule, 1 CAP PO DAILY PRN for WHILE TAKING ANTIBIOTICS, (Reported) Levalbuterol Tartrate 15 Gm Hfa.aer.ad, 2 PUFF INH Q6H PRN for SHORTNESS OF BREATH, (Reported) Lisinopril 20 Mg Tablet, 20 MG PO DAILY, (Reported) Metformin HCl 1,000 Mg Tablet, 1,000 MG PO BID WITH MEALS, (Reported) Metoprolol Succinate 50 Mg Tab.er.24h, 50 MG PO DAILY, (Reported) Mineral Oil/Petrolatum,White 3.5 Gm Oint...g., OU HS, (Reported) Mirabegron 50 Mg Tab.er.24h, 50 MG PO DAILY, (Reported) Multivitamin 1 Each Tablet, 1 EACH PO DAILY, (Reported) Nitrofurantoin Macrocrystal 100 Mg Capsule, 100 MG PO 1800, (Reported) Nystatin 100,000 Unit/1 Ml Oral.susp, 4 ML PO QID, (Reported) SWISH AND SWALLOW [place] 3 Polyunsat Fatty Acids 1,000 Mg Cap, 1,000 MG PO TID, (Reported) Oxycodone HCl/Acetaminophen 1 Each Tablet, 1 TAB PO EVERY 4-6 HOURS PRN for PAIN-MODERATE (5-7), (Reported) Polyethylene Glycol 3350 17 Gm Powd.pack, 17 GM PO DAILY, (Reported) Polyvinyl Alcohol/Povidone 15 Ml Drops, 2 DROPS OU Q4H PRN for DRY EYES, (Reported) Prasugrel HCl 10 Mg Tablet, 10 MG PO DAILY, (Reported) Primidone 250 Mg Tablet, 250 MG PO TID, (Reported) Sennosides/Docusate Sodium 1 Each Tablet, 1 EACH PO DAILY PRN for CONSTIPATION- 6TH LINE, (Reported) Solifenacin Succinate 10 Mg Tablet, 10 MG PO 1600, (Reported) Venlafaxine HCl 150 Mg Cap.er.24h, 150 MG PO DAILY, (Reported) Warfarin Sodium 4 Mg Tablet, 4 MG PO U,SAT, (Reported) TAKES 4MG ON .SAT TAKES 2MG ( OF A 4MG TAB) ON Warfarin Sodium 4 Mg Tablet, 2 MG PO , (Reported) TAKES 4MG ON .SAT TAKES 2MG ( OF A 4MG TAB) ON Patient Home Medication List Home Medication List Reviewed: Yes Physical Exam-Cardiology Physical Exam Vital Signs/I&O 02/07/20 02/07/20 02/07/20 02/07/20 03:00 04:00 04:00 05:00 Pulse 114 114 107 Resp 19 20 15 B/P (MAP) 112/78 (89) 122/69 (86) 119/67 (84) Pulse Ox 90 98 95 95 O2 Delivery Room Air Room Air Room Air Room Air 02/07/20 02/07/20 02/07/20 02/07/20 06:00 07:00 07:19 07:19 Pulse 107 116 112 Resp 17 11 B/P (MAP) 110/68 (82) Pulse Ox 91 97 97 O2 Delivery Room Air Room Air Room Air 02/07/20 02/07/20 02/07/20 02/07/20 08:00 08:00 08:00 09:00 Temp 36.2 Pulse 113 115 Resp 14 9 B/P (MAP) 118/89 (99) Pulse Ox 97 96 O2 Delivery Room Air Room Air Room Air 02/07/20 02/07/20 02/07/20 02/07/20 10:00 11:00 11:27 12:00 Temp 36.0 Pulse 113 123 Resp 13 8 B/P (MAP) 137/85 (102) Pulse Ox 95 97 O2 Delivery Room Air Room Air Room Air 02/07/20 02/07/20 12:00 13:06 Pulse 118 84 Resp 12 B/P (MAP) 118/63 (81) Pulse Ox 100 O2 Delivery Room Air 02/07/20 00:00 Intake Total 2545 ml Output Total 1150 ml Balance 1395 ml Capillary Refill : Less Than 3 Seconds Constitutional: appears stated age, AAO x 3; No apparent distress; well-devel oped, well-nourished HEENT: PERRL; No discharge; hearing is well preserved, oral hygience is good; No ulceration, No xanthelasmas are seen Neck: No carotid bruit; carotid pulses are 2 + bilaterally Respiratory: chest is bilaterally symmetric, lungs clear to auscultation Cardiovascular: irregularly irregular, S1 and S2 Gastrointestinal: soft, audible bowel sounds; No spleenomegaly Extremities: normal range of motion, non-tender, normal inspection; No clubbing, No cyanosis; no lower extremity edema bilateral; No significant edema Neurologic/Psychiatric: no motor/sensory deficits, alert, normal mood/affect, oriented x 3, power is 5/5 both on sides Skin: No rash, No ulcerations Data Review Labs Laboratory Tests 02/06/20 19:22: Glucometer 126H 02/07/20 02:46: White Blood Count 8.5, Red Blood Count 4.11, Hemoglobin 11.6, Hematocrit 36, Mean Corpuscular Volume 88, Mean Corpuscular Hemoglobin 28, Mean Corpuscular Hemoglobin Concent 32, Red Cell Distribution Width 14.9H, Platelet Count 239, Mean Platelet Volume 10.2, Immature Granulocyte % (Auto) 0, Neutrophils (%) (Auto) 50, Lymphocytes (%) (Auto) 37, Monocytes (%) (Auto) 8, Eosinophils (%) (Auto) 5, Basophils (%) (Auto) 0, Neutrophils # (Auto) 4.2, Lymphocytes # (Auto) 3.1, Monocytes # (Auto) 0.7, Eosinophils # (Auto) 0.4H, Basophils # (Auto) 0.0, Immature Granulocyte # (Auto) 0.0, Prothrombin Time 30.1H, INR Comment 2.8H, Sodium Level 141, Potassium Level 4.3, Chloride Level 108H, Carbon Dioxide Level 22, Anion Gap 11, Blood Urea Nitrogen 19H, Creatinine 0.73, Estimat Glomerular Filtration Rate > 60, BUN/Creatinine Ratio 26, Glucose Level 60*L, Calcium Level 8.3L, Phosphorus Level 3.8, Magnesium Level 1.7 02/07/20 04:37: Glucometer 59*L 02/07/20 05:05: Glucometer 66L 02/07/20 05:17: Glucometer 97 02/07/20 11:21: Glucometer 98 ECG Impression ECG Initial ECG Impression: Atrial Fibrillation w/RVR A/P-Cardiology Assessment/Admission Diagnosis Persistent atrial fibrillation with rapid ventricular rate, History of CAD, PCI, diabetes, Hyperlipidemia, Hypertension, Obstructive sleep apnea on CPAP therapy, Morbid obesity. Plan 1. Persistent atrial fibrillation: Status post atrial fibrillation ablation in September 2019. She had no atrial fibrillation on device interrogation till now. Used a new inhaler in the last 2-3 days. Cardizem infusion started. If the patient does not convert to sinus rhythm to tomorrow morning, will recommend transesophageal echocardiogram assisted cardioversion. Continue dofetilide and Cardizem. On Coumadin. 2. CAD: Status post PCI with drug-eluting stent to the LAD on 11/30/2018. 3. Diabetes: Defer to the primary team. 4. Hyperlipidemia: High-dose statin therapy. 5. Hypertension: Continue outpatient medical therapy. Thank you for your consultation. Please call me if you have any questions. My Russell MD, FACP, FACC, FSCAI, FHRS, CCDS Interventional Cardiology Cardiac Electrophysiology Vascular Medicine and Endovascular Interventions Clinical Quality Measures DVT/VTE Risk/Contraindication: Risk Factor Score Per Nursin RFS Level Per Nursing on Admit: 4+=Very High Janiya RUSSELL MD Feb 06, 2020 17:18
[2020-02-06] MEDS: NYSTATIN ORAL SUSP 5 ML UDC PO SCH ×2 (17:38→19:56)
[2020-02-06] MEDS: CALCIUM CARB + VIT D 600 MG (CALCARB + D) TAB PO SCH (17:39)
[2020-02-06] MEDS: metFORMIN 500 MG (GLUCOPHAGE) TAB PO SCH (17:39)
[2020-02-06] MEDS: GABAPENTIN 400 MG (NEURONTIN) CAP PO SCH (17:39)
[2020-02-06] MEDS: FERROUS SULF 325 MG (IRON) TAB PO SCH (17:39)
[2020-02-06] MEDS: CYCLOBENZAPRINE 10 MG (FLEXERIL) TAB PO SCH ×2 (17:39→21:11)
[2020-02-06] MEDS: inSUlin ASPART (NovoLOG) 1 UNIT/0.01 ML (CHARGE PER UNIT) SC SCH (17:40)
[2020-02-06] MEDS: oxyCODONE/APAP 10/325MG (PERCOCET 10) TABLET PO PRN ×2 (17:40→22:06)
[2020-02-06] MEDS: NITROFURANTOIN 100 MG (MACROBID) CAPSULE PO SCH (17:40)
[2020-02-06] MEDS ORDERED: NON-FORMULARY MEDICATION 1 EA EA (Metformin HCl 1,000 MG) PO SCH (18:00)
[2020-02-06] MEDS ORDERED: NITROFURANTOIN MACROCRYSTAL 100 MG PO SCH (18:00)
[2020-02-06] MEDS ORDERED: warFARin 2 MG (COUMADIN) TAB PO SCH (18:00)
--- NOTE | 2020-02-06 18:55 | NUR ---
REPORT CALLED TO JUNITO ZAPATA. PT TAKEN DOWN TO FOURTH FLOOR VIA BED.
[2020-02-06] MEDS: IMIPRAMINE 25 MG (TOFRANIL) TAB PO SCH (19:56)
[2020-02-06] MEDS: hydrOXYzine (ATARAX) 10 MG TAB PO SCH (19:56)
[2020-02-06] MEDS: OMEGA 3 (FISH OIL) 1000 MG CAP PO SCH (19:56)
[2020-02-06] MEDS: polyethylene glycoL POWDER 17 GM (MIRALAX) PACK PO SCH (19:57)
[2020-02-06] MEDS: DOFETILIDE 125 MCG (TIKOSYN) CAPSULE PO SCH (19:58)
[2020-02-06] MEDS ORDERED: PRIMIDONE 50 MG TAB (MYSOLINE) PO ONE ×2 (20:59→21:00)
[2020-02-06] MEDS ORDERED: DOFETILIDE 250 MCG CAP (TIKOSYN) NON-FORMLUARY PO SCH (21:00)
[2020-02-06] MEDS ORDERED: NON-FORMULARY MEDICATION 1 EA EA (Glucosam/Chond/Hyalu/Cf Borate (Move Free Joint Health T PO SCH (21:00)
[2020-02-06] MEDS ORDERED: NON-FORMULARY MEDICATION 1 EA EA (Imipramine HCl 50 MG) PO SCH (21:00)
[2020-02-06] MEDS ORDERED: NON-FORMULARY MEDICATION 1 EA EA (Calcium Carbonate/Vitamin D3 (Calcium 500 + Vit D Caplet PO SCH (21:00)
[2020-02-06] MEDS ORDERED: NON-FORMULARY MEDICATION 1 EA EA (Insulin Glargine,Hum.rec.anlog (Lantus) 18 UNIT) SQ SCH (21:00)
[2020-02-06] MEDS ORDERED: NON-FORMULARY MEDICATION 1 EA EA (Cyclosporine (Restasis) 1 DROP) OU SCH (21:00)
[2020-02-06] MEDS: PRIMIDONE 250MG (MYSOLINE) TAB PO SCH (21:11)
--- NOTE | 2020-02-06 21:12 | NUR ---
250mg Primidone was not stocked in [facility] and was not sent up by Pharmacy. This nurse had to override Primidone on cardiac step down [facility] but only 50mg Primidone was available. This nurse administering 5 pills of 50mg Primidone PO d/t that being the only form available.
[2020-02-07] VITALS (21 sets, daily range): BP systolic 106–138; BP diastolic 63–93
[2020-02-07] MEDS: dilTIAZem DRIP 125 MG/125 ML DRIP IV SCH (00:35)
[2020-02-07 03:36] LABS: BASOPHILS % (AUTO) 0 % (0-10); EOSINOPHILS # (AUTO) 0.4 10^3/uL (0.0-0.3); EOSINOPHILS % (AUTO) 5 % (0-10); HEMATOCRIT 36 % (35-52); HEMOGLOBIN 11.6 g/dL (11.5-16.0); LYMPHOCYTES # (AUTO) 3.1 10^3/uL (1.0-4.0); LYMPHOCYTES % (AUTO) 37 % (12-44); MEAN CORPUSCULAR HEMOGLOBIN 28 pg (25-34); MEAN CORPUSCULAR HGB CONC 32 g/dL (32-36); MEAN CORPUSCULAR VOLUME 88 fL (80-99); MEAN PLATELET VOLUME 10.2 fL (9.0-12.2); MONOCYTES # (AUTO) 0.7 10^3/uL (0.0-1.0); MONOCYTES % (AUTO) 8 % (0-12); NEUTROPHILS # (AUTO) 4.2 10^3/uL (1.8-7.8); NEUTROPHILS % (AUTO) 50 % (42-75); PLATELET COUNT 239 10^3/uL (130-400); WHITE BLOOD COUNT 8.5 10^3/uL (4.3-11.0)
[2020-02-07] MEDS: NS IV 1000 ML 1,000 ML IV SCH (03:37)
--- NOTE | 2020-02-07 03:52 | Pulmonary Progress Note ---
OSCAR JORDAN MED STUDENT 02/07/20 0352: Subjective Date Seen by a Provider: Feb 07, 2020 Subjective/Events-last exam Eneida Paez is a 69 year old female seen today due to aflutter. She has BARKER and reports diaphoresis with minimal exertion such as standing and walking to the commode. This is unchanged from yesterday. Reports her legs feel more edematous than normal, which she associates with her IV fluids. Denies CP, n/v, light headedness, new numbness or weakness. Review of Systems General: No Chills; Fatigue HEENT: No Sinus Congestion, No Sore Throat Pulmonary: Dyspnea; No Cough Cardiovascular: Edema; No: Lt Headedness Gastrointestinal: Constipation (chronic, had a BM yesterday at 7); No: Nausea, Abdominal Pain, Diarrhea Genitourinary: No Dysuria; Incontinence (chronic) Neurological: Numbness (chronic, charcot joint); No: Weakness Sepsis Event Evaluation Height, Weight, BMI Height: 5'10.50" Weight: 302lbs. 0.0oz. 136.210208ks; 40.00 BMI Method:Stated Exam Exam Vital Signs Date Time Temp Pulse Resp B/P (MAP) Pulse Ox O2 Delivery O2 Flow Rate FiO2 02/07/20 01:00 120 02/06/20 23:00 109 17 100/83 (89) 91 Room Air 02/06/20 22:00 104 15 98/78 (85) 97 Room Air 02/06/20 21:00 129 22 118/95 (103) 96 Room Air 02/06/20 20:00 36.3 02/06/20 20:00 126 13 125/91 (102) 94 Room Air 02/06/20 20:00 98 Room Air 02/06/20 19:00 114 02/06/20 19:00 112 16 112/77 (89) 92 Room Air 02/06/20 18:00 118 12 114/86 (95) 96 Room Air 02/06/20 17:00 128 17 83/79 (80) 94 Room Air 02/06/20 16:00 101 10 98/68 (78) 97 Room Air 02/06/20 16:00 36.4 02/06/20 15:03 98 Room Air 02/06/20 15:00 116 13 120/88 (99) 97 Room Air 02/06/20 14:28 98 Room Air 02/06/20 14:00 95 12 108/84 (92) 85 Room Air 02/06/20 13:00 109 10 131/96 (108) 98 Room Air 02/06/20 12:55 108 02/06/20 12:22 115 18 124/88 100 Room Air 02/06/20 11:09 116 18 119/92 (101) 98 Room Air 02/06/20 10:03 36.3 120 18 145/104 (118) 100 Room Air I & O 02/07/20 07:00 Intake Total 2545 ml Output Total 1150 ml Balance 1395 ml Height & Weight Height: 5'10.50" Weight: 302lbs. 0.0oz. 136.912635wb; 40.00 BMI Method:Stated General Appearance: No Apparent Distress, Chronically ill, Obese HEENT: PERRL/EOMI; No Scleral Icterus (L), No Scleral Icterus (R) Neck: Normal Inspection, Non Tender, Supple Respiratory: Chest Non Tender, Lungs Clear, Normal Breath Sounds, No Accessory Muscle Use, No Respiratory Distress Cardiovascular: No Murmur, Normal Peripheral Pulses, Irregularly Irregular, Tachycardia Capillary Refill: Less Than 3 Seconds Peripheral Pulses: 2+ Dorsalis Pedis (R), 2+ Left Dors-Pedis (L), 2+ Radial Pulses (R), 2+ Radial Pulses (L) Extremity: Normal Capillary Refill, Normal Inspection, Normal Range of Motion, Non Tender, No Calf Tenderness, Pedal Edema, Other (chronic numbness in b/l distal LE) Neurologic/Psychiatric: Alert, Oriented x3, Normal Mood/Affect, Sensory Deficit (chronic numbness in b/l distal LE) Skin: Normal Color, Warm/Dry Lymphatic: No Adenopathy Results Lab Laboratory Tests 02/06/20 10:16 02/07/20 02:46 Assessment/Plan Assessment/Plan Aflutter Cardiology consulting On cardizem drip Continue home warfarin DM Continue home insulin regimen CAD Continue home medications JUAN COLMENARES DO 02/07/20 0559: Exam Exam General Appearance: No Apparent Distress, Chronically ill HEENT: PERRL/EOMI Neck: Normal Inspection, Non Tender, Supple Respiratory: Chest Non Tender, Lungs Clear, Normal Breath Sounds, No Accessory Muscle Use, No Respiratory Distress Cardiovascular: No Murmur, Normal Peripheral Pulses Extremity: Normal Capillary Refill, Normal Inspection, Normal Range of Motion, Non Tender, No Calf Tenderness Neurologic/Psychiatric: Alert, Oriented x3, Normal Mood/Affect Skin: Normal Color, Warm/Dry Lymphatic: No Adenopathy Assessment/Plan Assessment/Plan Aflutter Cardiology consulting On cardizem drip home warfarin DM Continue home insulin regimen CAD Continue home medications JENNA -Start home CPAP once available Supervisory-Addendum Brief Verification & Attestation Participated in pt care: history, MDM, physical Personally performed: exam, history, MDM Care discussed with: Medical Student Procedures: n/a Verification and Attestation of Medical Student E/M Service A medical student performed and documented this service in my presence. I reviewed and verified all information documented by the medical student and made modifications to such information, when appropriate. I personally performed the physical exam and medical decision making. Juan Colmenares, Feb 07, 2020,06:01 OSCAR JORDAN MED STUDENT Feb 07, 2020 03:52 JUAN COLMENARES DO Feb 07, 2020 05:59
[2020-02-07 03:56] LABS: INR 2.8 (0.8-1.4); PROTHROMBIN TIME PATIENT 30.1 SEC (12.2-14.7)
[2020-02-07 03:58] LABS: CHLORIDE 108 MMOL/L (98-107); POTASSIUM 4.3 MMOL/L (3.6-5.0); SODIUM 141 MMOL/L (135-145)
[2020-02-07 03:59] LABS: CALCIUM 8.3 MG/DL (8.5-10.1)
[2020-02-07 04:01] LABS: CARBON DIOXIDE 22 MMOL/L (21-32)
[2020-02-07 04:03] LABS: PHOSPHORUS 3.8 MG/DL (2.3-4.7)
[2020-02-07 04:04] LABS: CREATININE SERUM 0.73 MG/DL (0.60-1.30); GFR ESTIMATED > 60
[2020-02-07 04:05] LABS: BUN/CREATININE RATIO 26
[2020-02-07 04:06] LABS: MAGNESIUM 1.7 MG/DL (1.6-2.4)
[2020-02-07 04:24] LABS: GLUCOSE 60 MG/DL (70-105)
--- NOTE | 2020-02-07 04:25 | NUR ---
This nurse received a call from lab, they reported to me that patients blood sugar from her labs that were just drawn is 60. This nurse went to check blood sugar with accucheck, upon entering the room patient is standing at bedside, she just got done using the bedside commode and her IV was pulled out. Accucheck 59. D/t not having IV access this nurse went and got orange juice, milk and peanut butter, patient consumed them. Accucheck up to 97. Will continue to closely monitor. New IV started.
--- NOTE | 2020-02-07 05:31 | NUR ---
This nurse asked patient to please press the call light before getting up d/t her pulling 2 IV's out tonight when she was getting getting to the commode, Call light has remained in reach at bedside throughout this shift, patient is alert and oriented. Patient agreed.
[2020-02-07] MEDS: TROSPIUM 20 MG (SANCTURA) TAB PO SCH ×2 (06:18→16:31)
[2020-02-07] MEDS: D5 1/2 NS 1000 ML IV SOLUTION 1,000 ML IV SCH ×3 (06:18→21:08)
[2020-02-07] MEDS: VENlafaxine XR 75 MG (EFFEXOR XR) CAP PO SCH (06:18)
[2020-02-07] MEDS: inSUlin ASPART (NovoLOG) 1 UNIT/0.01 ML (CHARGE PER UNIT) SC SCH ×3 (06:19→16:32)
[2020-02-07] MEDS: ADVAIR HFA 115/21 MCG INHALER 8 GM IH SCH ×2 (07:18→22:03)
[2020-02-07] MEDS: CALCIUM CARB + VIT D 600 MG (CALCARB + D) TAB PO SCH ×2 (07:40→17:41)
[2020-02-07] MEDS: MULTIVIT W/MINERALS TAB (THERAGRAN M) PO SCH (07:40)
[2020-02-07] MEDS: hydrOXYzine (ATARAX) 10 MG TAB PO SCH ×3 (07:40→21:07)
[2020-02-07] MEDS: LORATADINE (CLARITIN) 10 MG TAB PO SCH (07:41)
[2020-02-07] MEDS: OMEGA 3 (FISH OIL) 1000 MG CAP PO SCH ×3 (07:41→21:08)
[2020-02-07] MEDS: NYSTATIN ORAL SUSP 5 ML UDC PO SCH ×4 (07:42→21:06)
--- NOTE | 2020-02-07 08:37 | Diagnostic Imaging Report ---
EXAMINATION: Portable erect AP chest at 3:57 AM INDICATION: Dyspnea The heart size is within normal limits and stable when compared to 02/06/2020. The lungs are clear. There is no sign of failure, pneumonia or pleural effusion to indicate an acute abnormality. The mediastinum is not widened. The osseous structures are intact. The loop recorder device seen previously is again evident. IMPRESSION: Stable chest. There has been no adverse change since the prior exam. Dictated by: Dictated on workstation # [id number]
[2020-02-07] MEDS: metFORMIN 500 MG (GLUCOPHAGE) TAB PO SCH ×2 (08:47→17:41)
[2020-02-07] MEDS: ASPIRIN E.C. 81 MG (ECOTRIN) TAB PO SCH (08:48)
[2020-02-07] MEDS: PRASUGREL 10 MG (EFFIENT) TABLET PO SCH (08:48)
[2020-02-07] MEDS: PRIMIDONE 250MG (MYSOLINE) TAB PO SCH ×3 (08:48→21:08)
[2020-02-07] MEDS: DOFETILIDE 125 MCG (TIKOSYN) CAPSULE PO SCH ×2 (08:49→21:08)
[2020-02-07] MEDS: meTOproloL SUCCINATE 50 MG (TOPROL XL) TAB PO SCH (08:49)
[2020-02-07] MEDS: lisINopril 20 MG (PRINIVIL) TABLET PO SCH (08:49)
[2020-02-07] MEDS: GABAPENTIN 400 MG (NEURONTIN) CAP PO SCH ×4 (08:49→21:08)
[2020-02-07] MEDS: ACETAMINOPHEN 500 MG TAB (TYLENOL) PO SCH (08:49)
[2020-02-07] MEDS: amLODIPine 5 MG (NORVASC) TAB PO SCH (08:49)
[2020-02-07] MEDS ORDERED: NON-FORMULARY MEDICATION 1 EA EA (Venlafaxine HCl (Venlafaxine HCl ER) 150 MG) PO SCH (09:00)
[2020-02-07] MEDS ORDERED: NON-FORMULARY MEDICATION 1 EA EA (Fluticasone/Vilanterol (Breo Ellipta 200-25 Mcg INH) 1 E IH SCH (09:00)
[2020-02-07] MEDS ORDERED: NON-FORMULARY MEDICATION 1 EA EA (Diltiazem HCl (Diltiazem 24Hr ER) 360 MG) PO SCH (09:00)
[2020-02-07] MEDS ORDERED: NON-FORMULARY MEDICATION 1 EA EA (Cetirizine HCl (Zyrtec) 10 MG) PO SCH (09:00)
[2020-02-07] MEDS ORDERED: NON-FORMULARY MEDICATION 1 EA EA (Mirabegron (Myrbetriq) 50 MG) PO SCH (09:00)
[2020-02-07] MEDS: CYCLOBENZAPRINE 10 MG (FLEXERIL) TAB PO SCH ×3 (11:26→21:08)
[2020-02-07] MEDS ORDERED: LIDOCAINE 2% VISCOUS 15 ML UDC ONE (11:42)
[2020-02-07] MEDS ORDERED: proPOfol 200 MG/20 ML (DIPRIVAN) VIAL IV ONE (11:53)
[2020-02-07] MEDS ORDERED: MIDAZOLAM 2 MG/2 ML (VERSED) VIAL ONE (11:53)
[2020-02-07] MEDS ORDERED: NS IV 1000 ML 1,000 ML ONE (11:54)
[2020-02-07] MEDS ORDERED: VITAMIN D3 25 MCG (1,000 UNITS) TABLET PO SCH (12:00)
--- NOTE | 2020-02-07 12:00 | NUR ---
PHILIP cardioversion performed at bedside starting at this time. Elias Oliva CRNA and Dr. Russell at bedside along with commercial maintenance technician and this RN. Pt given 130 of Propofol IV push and 2mg of Versed during case. VSS throughout see VS charting. Pt cardioverted with synchronized shock of 200j per Dr. Russell. NSR noted post cardioversion. Will continue to monitor.
[2020-02-07] MEDS: oxyCODONE/APAP 10/325MG (PERCOCET 10) TABLET PO PRN ×3 (13:06→21:07)
--- NOTE | 2020-02-07 13:52 | Anesthesia-General Post-Op ---
MAC Patient Condition Mental Status/LOC: Same as Preop Cardiovascular: Satisfactory Nausea/Vomiting: Absent Respiratory: Satisfactory Pain: Controlled Complications: Absent Post Op Complications Complications None Follow Up Care/Instructions Patient Instructions None needed. Anesthesiology Discharge Order Discharge Order Patient is doing well, no complaints, stable vital signs, no apparent adverse anesthesia problems. No complications reported per nursing. TOMMY CABRAL CRNA Feb 07, 2020 13:52
--- NOTE | 2020-02-07 14:45 | Cardioversion ---
Cardioversion PROCEDURE PHYSICIAN: My Russell MD DATE OF PROCEDURE: 02/07/20 DIRECT EXTERNAL ELECTRICAL CARDIOVERSION: Indications: Atrial Fibrillation with rapid ventricular rate Preoperative diagnoses: Atrial Fibrillation with rapid ventricular rate Postoperative diagnosis: Sinus rhythm, Successful Electrical Cardioversion History: Persistent atrial fibrillation. Anesthesia: By Anesthesia services Complications: None Specimen: None Contrast: 0 Flouroscopy: none Procedure Details: The patient was brought the dental laboratory technician after informed consent was taken, all the risks and complications were explained including the risk of stroke. Transesophageal echocardiogram showed no evidence of left atrial or left atrial appendage thrombus. Electrical cardioversion was carried out with anesthesia support with propofol. 200 joules of synchronized shock was delivered through external patches which promptly restored sinus rhythm. The patient tolerated the procedure well. Conclusions: 1.Successful Cardioversion. 2.Continue oral anticoagulation and rate controlling agent. 3.Follow up in office in 2 weeks. My Russell MD, [facility] Cardiac Electrophysiology Janiya RUSSELL MD Feb 07, 2020 14:45
--- NOTE | 2020-02-07 15:14 | Cardiology Progress Note ---
Cardiology SOAP Progress Note Subjective: No cardiac complaints, still in atrial fibrillation. Objective: I&O/Vital Signs 02/07/20 02/07/20 02/07/20 02/07/20 04:00 04:00 05:00 06:00 Pulse 114 107 107 Resp 20 15 17 B/P (MAP) 122/69 (86) 119/67 (84) 110/68 (82) Pulse Ox 98 95 95 91 O2 Delivery Room Air Room Air Room Air Room Air 02/07/20 02/07/20 02/07/20 02/07/20 07:00 07:19 07:19 08:00 Pulse 116 112 113 Resp 11 14 B/P (MAP) 118/89 (99) Pulse Ox 97 97 97 O2 Delivery Room Air Room Air Room Air 02/07/20 02/07/20 02/07/20 02/07/20 08:00 08:00 09:00 10:00 Temp 36.2 Pulse 115 113 Resp 9 13 B/P (MAP) Pulse Ox 96 95 O2 Delivery Room Air Room Air Room Air 02/07/20 02/07/20 02/07/20 02/07/20 11:00 11:27 12:00 12:00 Temp 36.0 Pulse 123 118 Resp 8 12 B/P (MAP) 137/85 (102) 118/63 (81) Pulse Ox 97 100 O2 Delivery Room Air Room Air Room Air 02/07/20 02/07/20 02/07/20 13:00 13:06 14:00 Pulse 84 84 92 Resp 20 15 B/P (MAP) 127/93 (104) 125/79 (94) Pulse Ox 98 94 O2 Delivery Room Air Room Air 02/07/20 00:00 Intake Total 2545 ml Output Total 1150 ml Balance 1395 ml Weight (Pounds): 302 Weight (Ounces): 0.0 Weight (Calculated Kilograms): 136.160979 Constitutional: appears stated age, AAO x 3; No apparent distress; well- developed, well-nourished Respiratory: chest is bilaterally symmetric, lungs clear to auscultation Cardiovascular: irregularly irregular, S1 and S2 Gastrointestional: soft, audible bowel sounds; No spleenomegaly Extremities: normal range of motion, non-tender, normal inspection; No clubbing, No cyanosis; no lower extremity edema bilateral; No significant edema Neurologic/Psychiatric: no motor/sensory deficits, alert, normal mood/affect, oriented x 3, power is 5/5 both on sides Skin: No rash, No ulcerations Results/Procedures: Labs Laboratory Tests 02/06/20 19:22: Glucometer 126H 02/07/20 02:46: White Blood Count 8.5, Red Blood Count 4.11, Hemoglobin 11.6, Hematocrit 36, Mean Corpuscular Volume 88, Mean Corpuscular Hemoglobin 28, Mean Corpuscular Hemoglobin Concent 32, Red Cell Distribution Width 14.9H, Platelet Count 239, Mean Platelet Volume 10.2, Immature Granulocyte % (Auto) 0, Neutrophils (%) (Auto) 50, Lymphocytes (%) (Auto) 37, Monocytes (%) (Auto) 8, Eosinophils (%) (Auto) 5, Basophils (%) (Auto) 0, Neutrophils # (Auto) 4.2, Lymphocytes # (Auto) 3.1, Monocytes # (Auto) 0.7, Eosinophils # (Auto) 0.4H, Basophils # (Auto) 0.0, Immature Granulocyte # (Auto) 0.0, Prothrombin Time 30.1H, INR Comment 2.8H, Sodium Level 141, Potassium Level 4.3, Chloride Level 108H, Carbon Dioxide Level 22, Anion Gap 11, Blood Urea Nitrogen 19H, Creatinine 0.73, Estimat Glomerular Filtration Rate > 60, BUN/Creatinine Ratio 26, Glucose Level 60*L, Calcium Level 8.3L, Phosphorus Level 3.8, Magnesium Level 1.7 02/07/20 04:37: Glucometer 59*L 02/07/20 05:05: Glucometer 66L 02/07/20 05:17: Glucometer 97 02/07/20 11:21: Glucometer 98 A/P: Assessment/Dx: Persistent atrial fibrillation with rapid ventricular rate, History of CAD, PCI, diabetes, Hyperlipidemia, Hypertension, Obstructive sleep apnea on CPAP therapy, Morbid obesity. Plan: 1. Persistent atrial fibrillation: Status post atrial fibrillation ablation in September 2019. She had no atrial fibrillation on device interrogation till now. Used a new inhaler in the last 2-3 days. Cardizem infusion. Still in atrial fibrillation/atrial tachycardia with rapid ventricular rate. Transesophageal echocardiogram assisted cardioversion is recommended. Continue dofetilide and Cardizem. On Coumadin. 2. CAD: Status post PCI with drug-eluting stent to the LAD on 11/30/2018. 3. Diabetes: Defer to the primary team. 4. Hyperlipidemia: High-dose statin therapy. 5. Hypertension: Continue outpatient medical therapy. Thank you for your consultation. Please call me if you have any questions. My Russell MD, FACP, FACC, FSCAI, FHRS, CCDS Interventional Cardiology Cardiac Electrophysiology Vascular Medicine and Endovascular Interventions Janiya RUSSELL MD Feb 07, 2020 15:14
[2020-02-07] MEDS: NITROFURANTOIN 100 MG (MACROBID) CAPSULE PO SCH (17:41)
[2020-02-07] MEDS: FERROUS SULF 325 MG (IRON) TAB PO SCH (17:41)
[2020-02-07] MEDS ORDERED: warFARin 4 MG (COUMADIN) TAB PO SCH (18:00)
[2020-02-07] MEDS: IMIPRAMINE 25 MG (TOFRANIL) TAB PO SCH (21:07)
[2020-02-07] MEDS: polyethylene glycoL POWDER 17 GM (MIRALAX) PACK PO SCH (21:08)
--- NOTE | 2020-02-07 21:09 | NUR ---
This nurse notified that patients blood sugar is 85, order received to hold rosanna. Addendum: 02/07/20 at 2110 by CAROLYN HOLDEN RN not done
--- NOTE | 2020-02-07 21:10 | NUR ---
This nurse notified that patients blood sugar is 85, [facility]
[2020-02-08] VITALS (9 sets, daily range): BP systolic 139–170; BP diastolic 76–96
[2020-02-08] MEDS: D5 1/2 NS 1000 ML IV SOLUTION 1,000 ML IV SCH ×2 (02:57→06:04)
[2020-02-08 03:27] LABS: CHLORIDE 106 MMOL/L (98-107); POTASSIUM 3.9 MMOL/L (3.6-5.0); SODIUM 140 MMOL/L (135-145)
[2020-02-08 03:28] LABS: CALCIUM 8.6 MG/DL (8.5-10.1)
[2020-02-08 03:29] LABS: GLUCOSE 123 MG/DL (70-105)
[2020-02-08 03:30] LABS: CARBON DIOXIDE 22 MMOL/L (21-32)
[2020-02-08 03:32] LABS: CREATININE SERUM 0.69 MG/DL (0.60-1.30); GFR ESTIMATED > 60; PHOSPHORUS 3.5 MG/DL (2.3-4.7)
[2020-02-08 03:33] LABS: BASOPHILS % (AUTO) 0 % (0-10); BUN/CREATININE RATIO 20; EOSINOPHILS # (AUTO) 0.4 10^3/uL (0.0-0.3); EOSINOPHILS % (AUTO) 6 % (0-10); HEMATOCRIT 36 % (35-52); HEMOGLOBIN 11.7 g/dL (11.5-16.0); LYMPHOCYTES # (AUTO) 2.6 10^3/uL (1.0-4.0); LYMPHOCYTES % (AUTO) 37 % (12-44); MEAN CORPUSCULAR HEMOGLOBIN 28 pg (25-34); MEAN CORPUSCULAR HGB CONC 32 g/dL (32-36); MEAN CORPUSCULAR VOLUME 87 fL (80-99); MEAN PLATELET VOLUME 9.9 fL (9.0-12.2); MONOCYTES # (AUTO) 0.5 10^3/uL (0.0-1.0); MONOCYTES % (AUTO) 7 % (0-12); NEUTROPHILS # (AUTO) 3.5 10^3/uL (1.8-7.8); NEUTROPHILS % (AUTO) 50 % (42-75); PLATELET COUNT 213 10^3/uL (130-400); WHITE BLOOD COUNT 7.1 10^3/uL (4.3-11.0)
[2020-02-08 03:35] LABS: MAGNESIUM 1.6 MG/DL (1.6-2.4)
--- NOTE | 2020-02-08 03:49 | Pulmonary Progress Note ---
OSCAR JORDAN MED STUDENT 02/08/20 0349: Subjective Date Seen by a Provider: Feb 08, 2020 Time Seen by a Provider: 03:25 Review of Systems General: No Chills; Fatigue (improved) HEENT: Head Aches (chronic); No Sinus Congestion, No Sore Throat Pulmonary: Dyspnea (chronic); No Cough Cardiovascular: Edema; No: Chest Pain, Palpitations Gastrointestinal: No: Nausea, Abdominal Pain Genitourinary: No Dysuria; Incontinence Neurological: Numbness (chronic); No: Weakness Sepsis Event Evaluation Height, Weight, BMI Height: 5'10.50" Weight: 302lbs. 0.0oz. 136.493268fa; 40.00 BMI Method:Stated Exam Exam Vital Signs Date Time Temp Pulse Resp B/P (MAP) Pulse Ox O2 Delivery O2 Flow Rate FiO2 02/08/20 03:00 97 25 149/82 (104) 95 Nasal Cannula 2.00 02/08/20 02:00 101 25 98 Nasal Cannula 2.00 02/08/20 01:58 Nasal Cannula 2.00 02/08/20 01:00 93 17 142/79 (100) 96 Room Air 02/08/20 01:00 93 02/08/20 00:00 Room Air 02/08/20 00:00 95 16 140/78 (98) 96 Room Air 02/07/20 23:00 92 16 133/86 (102) 96 Room Air 02/07/20 22:03 100 Room Air 02/07/20 22:00 90 16 129/81 (97) 96 Room Air 02/07/20 21:00 90 16 138/78 (98) 95 Room Air 02/07/20 20:00 103 19 133/82 (99) 97 Room Air 02/07/20 20:00 Room Air 02/07/20 19:28 36.0 02/07/20 19:00 86 18 119/77 (91) 95 Room Air 02/07/20 19:00 86 02/07/20 18:00 89 10 134/83 (100) 97 Room Air 02/07/20 17:00 94 10 131/76 (94) 97 Room Air 02/07/20 16:13 Room Air 02/07/20 16:00 87 17 133/86 (102) 100 Room Air 02/07/20 15:20 36.2 02/07/20 15:00 91 14 106/68 (81) 96 Room Air 02/07/20 14:00 92 15 125/79 (94) 94 Room Air 02/07/20 13:06 84 02/07/20 13:00 84 20 127/93 (104) 98 Room Air 02/07/20 12:00 118 12 118/63 (81) 100 Room Air 02/07/20 12:00 Room Air 02/07/20 11:27 36.0 02/07/20 11:00 123 8 137/85 (102) 97 Room Air 02/07/20 10:00 113 13 95 Room Air 02/07/20 09:00 115 9 96 Room Air 02/07/20 08:00 36.2 02/07/20 08:00 Room Air 02/07/20 08:00 113 14 118/89 (99) 97 Room Air 02/07/20 07:19 97 Room Air 02/07/20 07:19 112 02/07/20 07:00 116 11 97 Room Air 02/07/20 06:00 107 17 110/68 (82) 91 Room Air 02/07/20 05:00 107 15 119/67 (84) 95 Room Air 02/07/20 04:00 114 20 122/69 (86) 95 Room Air 02/07/20 04:00 98 Room Air I & O 02/08/20 07:00 Intake Total 1000 ml Output Total 2050 ml Balance -1050 ml Height & Weight Height: 5'10.50" Weight: 302lbs. 0.0oz. 136.504385oa; 40.00 BMI Method:Stated General Appearance: No Apparent Distress, Chronically ill, Obese HEENT: PERRL/EOMI; No Scleral Icterus (L), No Scleral Icterus (R) Neck: Normal Inspection, Non Tender, Supple Respiratory: Chest Non Tender, Lungs Clear, Normal Breath Sounds, No Accessory Muscle Use, No Respiratory Distress Cardiovascular: Regular Rate, Rhythm, No Murmur, Normal Peripheral Pulses Capillary Refill: Less Than 3 Seconds Peripheral Pulses: 2+ Dorsalis Pedis (R), 2+ Left Dors-Pedis (L), 2+ Radial Pulses (R), 2+ Radial Pulses (L) Extremity: Normal Capillary Refill, Normal Inspection, Normal Range of Motion, Non Tender, No Calf Tenderness, Pedal Edema Neurologic/Psychiatric: Alert, Oriented x3, Normal Mood/Affect Skin: Normal Color, Warm/Dry Lymphatic: No Adenopathy Results Lab Laboratory Tests 02/06/20 10:16 02/07/20 02:46 02/08/20 02:50 Assessment/Plan Assessment/Plan Aflutter s/p electrical cardioversion 02/06 Cardiology consulting No longer in afib, monitor Off cardizem drip home warfarin DM Continue home insulin regimen CAD Continue home medications JENNA Placed on 2L O2 NC 02/06 evening during sleep. Consider CPAP TARAH COLMENARES DO 02/08/20 0702: Subjective Subjective/Events-last exam No complications noted. Exam Exam General Appearance: No Apparent Distress, Chronically ill HEENT: PERRL/EOMI Assessment/Plan Assessment/Plan s/p Aflutter s/p electrical cardioversion 02/06 Cardiology consulting Off cardizem drip home warfarin DM Continue home insulin regimen CAD Continue home medications JENNA Placed on 2L O2 NC 02/06 evening during sleep. Consider CPAP Supervisory-Addendum Brief Verification & Attestation Participated in pt care: history, MDM, physical Personally performed: exam, history Care discussed with: Medical Student Procedures: n/a Verification and Attestation of Medical Student E/M Service A medical student performed and documented this service in my presence. I reviewed and verified all information documented by the medical student and made modifications to such information, when appropriate. I personally performed the physical exam and medical decision making. Tarah Colmenares, Feb 08, 2020,07:01 OSCAR JORDAN MED STUDENT Feb 08, 2020 03:49 TARAH COLMENARES DO Feb 08, 2020 07:02
[2020-02-08] MEDS: inSUlin ASPART (NovoLOG) 1 UNIT/0.01 ML (CHARGE PER UNIT) SC SCH (06:04)
[2020-02-08] MEDS: VENlafaxine XR 75 MG (EFFEXOR XR) CAP PO SCH (06:04)
[2020-02-08] MEDS: TROSPIUM 20 MG (SANCTURA) TAB PO SCH (06:04)
[2020-02-08] MEDS: oxyCODONE/APAP 10/325MG (PERCOCET 10) TABLET PO PRN (06:15)
[2020-02-08 07:13] LABS: INR 2.2 (0.8-1.4); PROTHROMBIN TIME PATIENT 24.8 SEC (12.2-14.7)
[2020-02-08] MEDS: ADVAIR HFA 115/21 MCG INHALER 8 GM IH SCH (07:41)
[2020-02-08] MEDS: DOFETILIDE 125 MCG (TIKOSYN) CAPSULE PO SCH (08:47)
[2020-02-08] MEDS: meTOproloL SUCCINATE 50 MG (TOPROL XL) TAB PO SCH (08:47)
[2020-02-08] MEDS: LORATADINE (CLARITIN) 10 MG TAB PO SCH (08:47)
[2020-02-08] MEDS: GABAPENTIN 400 MG (NEURONTIN) CAP PO SCH (08:47)
[2020-02-08] MEDS: MULTIVIT W/MINERALS TAB (THERAGRAN M) PO SCH (08:47)
[2020-02-08] MEDS: ASPIRIN E.C. 81 MG (ECOTRIN) TAB PO SCH (08:47)
[2020-02-08] MEDS: amLODIPine 5 MG (NORVASC) TAB PO SCH (08:47)
[2020-02-08] MEDS: PRIMIDONE 250MG (MYSOLINE) TAB PO SCH (08:47)
[2020-02-08] MEDS: lisINopril 20 MG (PRINIVIL) TABLET PO SCH (08:47)
[2020-02-08] MEDS: OMEGA 3 (FISH OIL) 1000 MG CAP PO SCH (08:47)
[2020-02-08] MEDS: MAGNESIUM 1 GM/100 ML IVPB 100 ML IV SCH ×2 (08:47→10:29)
[2020-02-08] MEDS: metFORMIN 500 MG (GLUCOPHAGE) TAB PO SCH (08:47)
[2020-02-08] MEDS: hydrOXYzine (ATARAX) 10 MG TAB PO SCH (08:47)
[2020-02-08] MEDS: CALCIUM CARB + VIT D 600 MG (CALCARB + D) TAB PO SCH (08:48)
[2020-02-08] MEDS: PRASUGREL 10 MG (EFFIENT) TABLET PO SCH (08:48)
[2020-02-08] MEDS: ACETAMINOPHEN 500 MG TAB (TYLENOL) PO SCH (08:48)
[2020-02-08] MEDS: NYSTATIN ORAL SUSP 5 ML UDC PO SCH (08:48)
[2020-02-08] MEDS ORDERED: FLUC100T PO (10:14)
--- NOTE | 2020-02-08 10:15 | Discharge Summary ---
Discharge Summary Hospital Course Was the Problem List Reviewed?: Yes Problems/Dx: (1) Atrial flutter with rapid ventricular response Status: Acute Hospital Course Date of Admission: Feb 06, 2020 at 11:19 Admission Diagnosis : Family Physician/Provider: Martin Goode MD Date of Discharge: 02/08/20 Discharge Diagnosis: a flutter rvr s/p cardioversion with PHILIP, [facility] Hospital Course: Brief course after admitted for AF w/RVR infusions managed by Dr Russell and required cardioversion after PHILIP and was able to be stable enough to DC. Labs and Pending Lab Test: Laboratory Tests 02/07/20 11:21: Glucometer 98 02/07/20 16:14: Glucometer 199H 02/07/20 20:22: Glucometer 85 02/08/20 02:50: White Blood Count 7.1, Red Blood Count 4.18, Hemoglobin 11.7, Hematocrit 36, Mean Corpuscular Volume 87, Mean Corpuscular Hemoglobin 28, Mean Corpuscular Hemoglobin Concent 32, Red Cell Distribution Width 14.9H, Platelet Count 213, Mean Platelet Volume 9.9, Immature Granulocyte % (Auto) 0, Neutrophils (%) (Auto) 50, Lymphocytes (%) (Auto) 37, Monocytes (%) (Auto) 7, Eosinophils (%) (Auto) 6, Basophils (%) (Auto) 0, Neutrophils # (Auto) 3.5, Lymphocytes # (Auto) 2.6, Monocytes # (Auto) 0.5, Eosinophils # (Auto) 0.4H, Basophils # (Auto) 0.0, Immature Granulocyte # (Auto) 0.0, Prothrombin Time 24.8H, INR Comment 2.2H, Sodium Level 140, Potassium Level 3.9, Chloride Level 106, Carbon Dioxide Level 22, Anion Gap 12, Blood Urea Nitrogen 14, Creatinine 0.69, Estimat Glomerular Filtration Rate > 60, BUN/Creatinine Ratio 20, Glucose Level 123H, Calcium Level 8.6, Phosphorus Level 3.5, Magnesium Level 1.6 02/08/20 06:06: Glucometer 124H Microbiology 02/06/20 MRSA Screen - Final, Complete MRSA not isolated Home Meds Active Diflucan (Fluconazole) 100 Mg Tablet 100 Mg PO DAILY Reported Venlafaxine HCl ER (Venlafaxine HCl) 150 Mg Cap.er.24h 150 Mg PO DAILY Levalbuterol Tartrate Hfa (Levalbuterol Tartrate) 15 Gm Hfa.aer.ad 2 Puff INH Q6H PRN Diltiazem 24Hr ER (Diltiazem HCl) 360 Mg Cap.er.24h 360 Mg PO DAILY Metoprolol Succinate 50 Mg Tab.er.24h 50 Mg PO DAILY Amlodipine Besylate 5 Mg Tablet 5 Mg PO DAILY Nystatin 100,000 Unit/1 Ml Oral.susp 4 Ml PO QID SWISH AND SWALLOW Dofetilide 250 Mcg Capsule 250 Mcg PO BID Move Free Joint Health Tablet (Glucosam/Chond/Hyalu/Cf Borate) 1 Each Tablet 1 Each PO BID Vitamin D3 (Cholecalciferol (Vitamin D3)) 25 Mcg Tablet 25 Mcg PO 1200 Restasis (Cyclosporine) 1 Each Droperette 1 Drop OU BID Artificial Tears Drops (Polyvinyl Alcohol/Povidone) 15 Ml Drops 2 Drops OU Q4H PRN Senna-Docusate Sodium Tablet (Sennosides/Docusate Sodium) 1 Each Tablet 1 Each PO DAILY PRN Multi-Vitamin Daily (Multivitamin) 1 Each Tablet 1 Each PO DAILY Nitrofurantoin (Nitrofurantoin Macrocrystal) 100 Mg Capsule 100 Mg PO 1800 Hydroxyzine HCl 10 Mg Tablet 10 Mg PO TID Acetaminophen 500 Mg Tablet 1,000 Mg PO DAILY PRN Breo Ellipta 200-25 Mcg INH (Fluticasone/Vilanterol) 1 Each Blst.w.dev 1 Each IH DAILY Metformin HCl 1,000 Mg Tablet 1,000 Mg PO BID WITH MEALS Culturelle (Lactobacillus Rhamnosus GG) 1 Each Capsule 1 Cap PO DAILY PRN Pepcid (Famotidine) 20 Mg Tablet 20 Mg PO DAILY PRN Percocet 10-325 mg Tablet (Oxycodone HCl/Acetaminophen) 1 Each Tablet 1 Tab PO EVERY 4-6 HOURS PRN Aspirin EC (Aspirin) 81 Mg Tablet.dr 81 Mg PO DAILY Vesicare (Solifenacin Succinate) 10 Mg Tablet 10 Mg PO 1600 Myrbetriq (Mirabegron) 50 Mg Tab.er.24h 50 Mg PO DAILY Mysoline (Primidone) 250 Mg Tablet 250 Mg PO TID Warfarin Sodium 4 Mg Tablet 2 Mg PO TUE,,FR TAKES 4MG ON TUE,TUE,.SAT TAKES 2MG ( OF A 4MG TAB) ON Warfarin Sodium 4 Mg Tablet 4 Mg PO TUE..NITZA,SAT TAKES 4MG ON .SAT TAKES 2MG ( OF A 4MG TAB) ON Cyclobenzaprine HCl 10 Mg Tablet 10 Mg PO 1200,1800,2200 Atorvastatin Calcium 80 Mg Tablet 80 Mg PO HS Prasugrel HCl 10 Mg Tablet 10 Mg PO DAILY Miralax (Polyethylene Glycol 3350) 17 Gm Powd.pack 17 Gm PO DAILY Ferrous Sulfate 325 Mg Tablet 325 Mg PO 1800 Zyrtec (Cetirizine HCl) 10 Mg Tablet 10 Mg PO DAILY Fish Oil 1,000 mg Capsule ([place] 3 Polyunsat Fatty Acids) 1,000 Mg Cap 1,000 Mg PO TID Gabapentin 800 Mg Tablet 800 Mg PO QID Lisinopril 20 Mg Tablet 20 Mg PO DAILY Imipramine HCl 50 Mg Tablet 50 Mg PO HS Lantus (Insulin Glargine,Hum.rec.anlog) 100 Unit/1 Ml Vial 18 Unit SQ HS Calcium 500 + Vit D Caplet (Calcium Carbonate/Vitamin D3) 1 Each Tablet 1 Tab PO BID Novolog Flexpen (Insulin Aspart) 300 Units/3 Ml Solution 5-6 Units SQ TIDAC Refresh Lacri-Lube Ointment (Mineral Oil/Petrolatum,White) 3.5 Gm Oint...g. OU HS Assessment/Pt Instructions chc 1 week Discharge Planning: <30 minutes discharge planning Discharge Instructions Discharge Diet: No Restrictions Activity as Tolerated: Yes Discharge Physical Examination Vital Signs Vital Signs Date Time Temp Pulse Resp B/P (MAP) Pulse Ox O2 Delivery O2 Flow Rate FiO2 02/08/20 09:00 36.5 02/08/20 08:00 Room Air 02/08/20 08:00 90 139/76 (97) 95 02/08/20 06:00 2.00 02/08/20 04:00 25 General Appearance: No Apparent Distress, WD/WN Allergies: Coded Allergies: black cohosh (Verified Allergy, Unknown, 08/07/15) glyburide (Verified Allergy, Unknown, 08/07/15) isosorbide (Verified Allergy, Unknown, 08/07/15) Uncoded Allergies: ARCABOSE (Allergy, Mild, Abdominal Pain, 10/01/19) GAS PAINS Discharge Summary Date of Admission Feb 06, 2020 at 11:19 Date of Discharge Discharge Date: Feb 08, 2020 Admission Diagnosis Assessment: Atrial flutter with RVR Chronic pain Chronic disability JENNA Plan: Cardiology consult Supportive care Monitor closely Discharge Diagnosis (1) Atrial flutter with rapid ventricular response Status: Acute Clinical Quality Measures DVT/VTE Risk/Contraindication: Risk Factor Score Per Nursin RFS Level Per Nursing on Admit: 4+=Very High SAWYER TELLO DO Feb 08, 2020 10:14
[2020-02-08] MEDS ORDERED: MAGNESIUM 1 GM/100 ML IVPB 100 ML IV ONE (10:25)
[2020-02-08] MEDS ORDERED: fluCOnazole (DIFLUCAN) 100 MG TAB ONE (10:27)
[2020-02-08] MEDS ORDERED: fluCOnazole (DIFLUCAN) 100 MG TAB PO NR (10:35)
--- NOTE | 2020-02-08 10:36 | NUR ---
REPORT GIVEN TO JODI IVORY
--- NOTE | 2020-02-08 15:10 | Cardiology Progress Note ---
Cardiology SOAP Progress Note Subjective: No cardiac complaints. Objective: I&O/Vital Signs 02/08/20 02/08/20 02/08/20 02/08/20 04:00 04:00 05:00 05:44 Temp 36.5 Pulse 99 84 Resp 25 B/P (MAP) 154/91 (112) 141/86 (104) Pulse Ox 97 95 O2 Delivery Room Air Nasal Cannula Nasal Cannula O2 Flow Rate 2.00 2.00 02/08/20 02/08/20 02/08/20 02/08/20 06:00 06:10 07:00 07:00 Pulse 89 97 96 B/P (MAP) 157/85 (109) 170/96 (120) Pulse Ox 100 95 O2 Delivery Nasal Cannula Room Air Room Air O2 Flow Rate 2.00 02/08/20 02/08/20 02/08/20 02/08/20 07:41 08:00 08:00 09:00 Temp 36.5 Pulse 90 B/P (MAP) 139/76 (97) Pulse Ox 96 95 O2 Delivery Room Air Room Air Room Air 02/08/20 12:52 Temp 36.9 Pulse 85 Resp 18 B/P (MAP) 148/96 Pulse Ox 96 O2 Delivery Room Air 02/07/20 23:59 Intake Total 850 ml Output Total 900 ml Balance -50 ml Weight (Pounds): 302 Weight (Ounces): 0.0 Weight (Calculated Kilograms): 136.854686 Constitutional: appears stated age, AAO x 3; No apparent distress; well- developed, well-nourished Respiratory: chest is bilaterally symmetric, lungs clear to auscultation Cardiovascular: irregularly irregular, S1 and S2 Gastrointestional: soft, audible bowel sounds; No spleenomegaly Extremities: normal range of motion, non-tender, normal inspection; No clubbing, No cyanosis; no lower extremity edema bilateral; No significant edema Neurologic/Psychiatric: no motor/sensory deficits, alert, normal mood/affect, oriented x 3, power is 5/5 both on sides Skin: No rash, No ulcerations Results/Procedures: Labs Laboratory Tests 02/07/20 16:14: Glucometer 199H 02/07/20 20:22: Glucometer 85 02/08/20 02:50: White Blood Count 7.1, Red Blood Count 4.18, Hemoglobin 11.7, Hematocrit 36, Mean Corpuscular Volume 87, Mean Corpuscular Hemoglobin 28, Mean Corpuscular Hemoglobin Concent 32, Red Cell Distribution Width 14.9H, Platelet Count 213, Mean Platelet Volume 9.9, Immature Granulocyte % (Auto) 0, Neutrophils (%) (Auto) 50, Lymphocytes (%) (Auto) 37, Monocytes (%) (Auto) 7, Eosinophils (%) (Auto) 6, Basophils (%) (Auto) 0, Neutrophils # (Auto) 3.5, Lymphocytes # (Auto) 2.6, Monocytes # (Auto) 0.5, Eosinophils # (Auto) 0.4H, Basophils # (Auto) 0.0, Immature Granulocyte # (Auto) 0.0, Prothrombin Time 24.8H, INR Comment 2.2H, Sodium Level 140, Potassium Level 3.9, Chloride Level 106, Carbon Dioxide Level 22, Anion Gap 12, Blood Urea Nitrogen 14, Creatinine 0.69, Estimat Glomerular Filtration Rate > 60, BUN/Creatinine Ratio 20, Glucose Level 123H, Calcium Level 8.6, Phosphorus Level 3.5, Magnesium Level 1.6 02/08/20 06:06: Glucometer 124H Microbiology 02/06/20 MRSA Screen - Final, Complete MRSA not isolated A/P: Assessment/Dx: Persistent atrial fibrillation with rapid ventricular rate, History of CAD, PCI, diabetes, Hyperlipidemia, Hypertension, Obstructive sleep apnea on CPAP therapy, Morbid obesity. Plan: 1. Persistent atrial fibrillation: Status post atrial fibrillation ablation in September 2019. She had no atrial fibrillation on device interrogation till now. Used a new inhaler in the last 2-3 days. Cardizem infusion. Still in atrial fibrillation/atrial tachycardia with rapid ventricular rate. Transesophageal echocardiogram assisted cardioversion performed on 02/07/2020. Patient converted to sinus rhythm. Continue dofetilide and Cardizem. On Coumadin. Okay to disc harge and follow-up in the office in 2-3 weeks. 2. CAD: Status post PCI with drug-eluting stent to the LAD on 11/30/2018. 3. Diabetes: Defer to the primary team. 4. Hyperlipidemia: High-dose statin therapy. 5. Hypertension: Continue outpatient medical therapy. Thank you for your consultation. Please call me if you have any questions. My Russell MD, FACP, FACC, FSCAI, FHRS, CCDS Interventional Cardiology Cardiac Electrophysiology Vascular Medicine and Endovascular Interventions Janiya RUSSELL MD Feb 08, 2020 15:10
== END 2020-02-08 12:50 | disposition home or self-care (01) ==
LOC: EDUNIT# 10:03 → ER 10:06 → ICU 11:19 → CSD 02-08 11:08
PROVIDERS: ADMIT Internal Medicine; ATTEND Internal Medicine
DX: I48.19 Other persistent atrial fibrillation (principal); I25.10 Atherosclerotic heart disease of native coronary artery without angina pectoris; I10 Essential (primary) hypertension; E78.5 Hyperlipidemia, unspecified; G47.33 Obstructive sleep apnea (adult) (pediatric); E78.00 Pure hypercholesterolemia, unspecified; I82.409 Acute embolism and thrombosis of unspecified deep veins of unspecified lower extremity; E11.40 Type 2 diabetes mellitus with diabetic neuropathy, unspecified; F41.9 Anxiety disorder, unspecified; F32.9 Major depressive disorder, single episode, unspecified; I48.92 Unspecified atrial flutter; K21.9 Gastro-esophageal reflux disease without esophagitis; G89.29 Other chronic pain; M54.5 Low back pain; M19.90 Unspecified osteoarthritis, unspecified site; E11.36 Type 2 diabetes mellitus with diabetic cataract; N39.0 Urinary tract infection, site not specified; J45.909 Unspecified asthma, uncomplicated; E66.01 Morbid (severe) obesity due to excess calories; Z68.41 Body mass index [BMI] 40.0-44.9, adult; Z79.82 Long term (current) use of aspirin; Z79.4 Long term (current) use of insulin; Z79.899 Other long term (current) drug therapy; Z88.8 Allergy status to other drugs, medicaments and biological substances; Z80.0 Family history of malignant neoplasm of digestive organs
CPT/HCPCS: 71045 ×3; 80048 ×2; 80053; 82962 ×3; 83735 ×2; 84100 ×2; 84443; 84484; 85025 ×3; 85610 ×3; 85730; 87081; 93005; 93041; 93306; 93312; 93320; 93325; 94640 ×2; 99285; G0378; 36415; 90662

== ENCOUNTER 2020-02-20 17:50 | Emergency (ER) | payer MEDICARE, MEDICAID ==
[~2020-02-20] VITALS: Ht 177.8 cm; Wt 129.7 kg
[~2020-02-20 17:50] MED LIST changes: +CHOL10002 PO; +DOFE250C3 PO; +FLUC100T PO; +GLUC-203 PO; +LEVA15HF5 INH; +METO50TA7 PO; +NYST1000 PO; +VENL150C98 PO
--- NOTE | 2020-02-20 18:30 | Diagnostic Imaging Report ---
EXAM: Right foot radiograph. EXAM DATE: 02/20/2020. COMPARISON: Right foot radiograph 01/20/2016. HISTORY: Right foot pain. TECHNIQUE: Three views of the right foot. FINDINGS: Progressive advanced degenerative changes within the midfoot and tarsometatarsal joints. There is flattening of the foot. No obvious acute fracture or dislocation. Mild soft tissue swelling is unchanged. IMPRESSION: Mildly progressed advanced degenerative changes of the right foot without obvious acute fracture. Dictated by: Dictated on workstation # [id number]
--- NOTE | 2020-02-20 18:53 | ED Lower Extremity ---
General Chief Complaint: Lower Extremity Stated Complaint: R LEG PAIN Nursing Triage Note: Pt to ED via EMS for chronic foot pain. Pt reports pain has worsened after walking on Tuesday. Nursing Sepsis Screen: No Definite Risk Source: patient Exam Limitations: no limitations History of Present Illness Date Seen by Provider: Feb 20, 2020 Time Seen by Provider: 17:51 Initial Comments This 69-year-old woman presents to the emergency room via EMS with complaints of pain in the right foot around the arch. This is an intermittent pain that is shooting or stabbing in nature. It is brief and comes and goes without any provocation. She noticed this pain on Tuesday after walking around at the doctor's office. She has Charcot foot and neuropathy that primarily consists of numbness. She denies any injury. Allergies and Home Medications Allergies Coded Allergies: black cohosh (Verified Allergy, Unknown, 08/07/15) glyburide (Verified Allergy, Unknown, 08/07/15) isosorbide (Verified Allergy, Unknown, 08/07/15) Uncoded Allergies: ARCABOSE (Allergy, Mild, Abdominal Pain, 10/01/19) GAS PAINS Home Medications Acetaminophen 500 Mg Tablet, 1,000 MG PO DAILY PRN, (Reported) Amlodipine Besylate 5 Mg Tablet, 5 MG PO DAILY, (Reported) Aspirin 81 Mg Tablet.dr, 81 MG PO DAILY, (Reported) Atorvastatin Calcium 80 Mg Tablet, 80 MG PO HS, (Reported) Calcium Carbonate/Vitamin D3 1 Each Tablet, 1 TAB PO BID, (Reported) Cetirizine HCl 10 Mg Tablet, 10 MG PO DAILY, (Reported) Cholecalciferol (Vitamin D3) 25 Mcg Tablet, 25 MCG PO 1200, (Reported) Cyclobenzaprine HCl 10 Mg Tablet, 10 MG PO 1200,1800,2200, (Reported) Cyclosporine 1 Each Droperette, 1 DROP OU BID, (Reported) Diltiazem HCl 360 Mg Cap.er.24h, 360 MG PO DAILY, (Reported) Dofetilide 250 Mcg Capsule, 250 MCG PO BID, (Reported) Famotidine 20 Mg Tablet, 20 MG PO DAILY PRN for HEARTBURN, (Reported) Ferrous Sulfate 325 Mg Tablet, 325 MG PO 1800, (Reported) Fluconazole 100 Mg Tablet, 100 MG PO DAILY Prescribed by: SAWYER TELLO on 02/08/20 1014 Fluticasone/Vilanterol 1 Each Blst.w.dev, 1 EACH IH DAILY, (Reported) Gabapentin 800 Mg Tablet, 800 MG PO QID, (Reported) Glucosam/Chond/Hyalu/Cf Borate 1 Each Tablet, 1 EACH PO BID, (Reported) Hydroxyzine HCl 10 Mg Tablet, 10 MG PO TID, (Reported) Imipramine HCl 50 Mg Tablet, 50 MG PO HS, (Reported) Insulin Aspart 300 Units/3 Ml Solution, 5-6 UNITS SQ TIDAC, (Reported) Insulin Glargine,Hum.rec.anlog 100 Unit/1 Ml Vial, 18 UNIT SQ HS, (Reported) Lactobacillus Rhamnosus GG 1 Each Capsule, 1 CAP PO DAILY PRN for WHILE TAKING ANTIBIOTICS, (Reported) Levalbuterol Tartrate 15 Gm Hfa.aer.ad, 2 PUFF INH Q6H PRN for SHORTNESS OF BREATH, (Reported) Lisinopril 20 Mg Tablet, 20 MG PO DAILY, (Reported) Metformin HCl 1,000 Mg Tablet, 1,000 MG PO BID WITH MEALS, (Reported) Metoprolol Succinate 50 Mg Tab.er.24h, 50 MG PO DAILY, (Reported) Mineral Oil/Petrolatum,White 3.5 Gm Oint...g., OU HS, (Reported) Mirabegron 50 Mg Tab.er.24h, 50 MG PO DAILY, (Reported) Multivitamin 1 Each Tablet, 1 EACH PO DAILY, (Reported) Nitrofurantoin Macrocrystal 100 Mg Capsule, 100 MG PO 1800, (Reported) Nystatin 100,000 Unit/1 Ml Oral.susp, 4 ML PO QID, (Reported) SWISH AND SWALLOW [place] 3 Polyunsat Fatty Acids 1,000 Mg Cap, 1,000 MG PO TID, (Reported) Oxycodone HCl/Acetaminophen 1 Each Tablet, 1 TAB PO EVERY 4-6 HOURS PRN for PAIN-MODERATE (5-7), (Reported) Polyethylene Glycol 3350 17 Gm Powd.pack, 17 GM PO DAILY, (Reported) Polyvinyl Alcohol/Povidone 15 Ml Drops, 2 DROPS OU Q4H PRN for DRY EYES, (Reported) Prasugrel HCl 10 Mg Tablet, 10 MG PO DAILY, (Reported) Primidone 250 Mg Tablet, 250 MG PO TID, (Reported) Sennosides/Docusate Sodium 1 Each Tablet, 1 EACH PO DAILY PRN for CONSTIPATION- 6TH LINE, (Reported) Solifenacin Succinate 10 Mg Tablet, 10 MG PO 1600, (Reported) Venlafaxine HCl 150 Mg Cap.er.24h, 150 MG PO DAILY, (Reported) Warfarin Sodium 4 Mg Tablet, 4 MG PO U,SAT, (Reported) TAKES 4MG ON .SAT TAKES 2MG ( OF A 4MG TAB) ON Warfarin Sodium 4 Mg Tablet, 2 MG PO , (Reported) TAKES 4MG ON .SAT TAKES 2MG ( OF A 4MG TAB) ON Patient Home Medication List Home Medication List Reviewed: Yes Review of Systems Constitutional: no symptoms reported EENTM: no symptoms reported Respiratory: no symptoms reported Cardiovascular: no symptoms reported Gastrointestinal: no symptoms reported Genitourinary: no symptoms reported : No Musculoskeletal: see HPI Skin: no symptoms reported Psychiatric/Neurological: No Symptoms Reported Past [id number]-[id number] Hx Past Med/Social Hx: Reviewed Nursing Past Med/Soc Hx Patient Social History Alcohol Use: Denies Use Recreational Drug Use: No Type Used: Cigarettes Former Smoker, Quit: May 18, 1980 2nd Hand Smoke Exposure: No Recent Foreign Travel: No Contact w/Someone Who Travel: No Recent Infectious Disease Expo: No Recent Hopitalizations: No Physical Abuse: No Sexual Abuse: No Mistreated: No Fear: No Immunizations Up To Date Tetanus Booster (TDap): Less than 5yrs PED Vaccines UTD: Yes Date of Pneumonia Vaccine: Feb 14, 2017 Date of Influenza Vaccine: Jan 14, 2019 Seasonal Allergies Seasonal Allergies: No Past Medical History Surgeries: Yes (LAD STENTS PLACED NOVEMBER 2018) Cardiac, Coronary Stent, Eye Surgery, Orthopedic Respiratory: Yes Asthma, Sleep Apnea Currently Using CPAP: Yes (wears cpap at night with no o2, brought her machine and her meds with her) Currently Using BIPAP: No Cardiac: Yes Atrial Fibrillation, Chronic Edema/Swelling, Coronary Artery Disease, Deep Vein Thrombosis, Heart Attack, High Cholesterol, Hypertension Neurological: Yes Neuropathy 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 Disorders: Yes Female 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 Disorders: Denies 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 Sexually Transmitted Disease: No HIV/AIDS: No Genitourinary: Yes UTI-Chronic Gastrointestinal: Yes Gastroesophageal Reflux, Chronic Constipation Musculoskeletal: Yes (Charcot foot) Degenerate Disk Disease, Arthritis, Chronic Back Pain Endocrine: Yes (MORBID OBESITY) Diabetes, Insulin dep HEENT: Yes Cataract Loss of Vision: Bilateral Hearing Impairment: Denies Cancer: No Uterine Did You Recieve Any Treatments: Yes What Type of Treatment Did You: Surgical Intervention Psychosocial: Yes Anxiety, Depression Integumentary: No Blood Disorders: No Adverse Reaction/Blood Tranf: No Family Medical History Cardiovascular disease 19 FATHER 19 MOTHER Colon cancer 19 FATHER 19 MOTHER Diabetes mellitus 19 MOTHER G8 BROTHER G8 SISTER Myocardial infarction 19 FATHER No Pertinent Family Hx Physical Exam Vital Signs Vital Signs - First Documented 02/20/20 17:50 Temp 36.6 Pulse 83 Resp 13 B/P (MAP) 126/77 (93) Pulse Ox 96 O2 Delivery Room Air Capillary Refill : Less Than 3 Seconds Height, Weight, BMI Height: 5'10.50" Weight: 302lbs. 0.0oz. 136.532577bq; 41.00 BMI Method:Stated General Appearance: WD/WN, no apparent distress, other (occasionally winces in pain) HEENT: normal ENT inspection Neck: normal inspection Cardiovascular: regular rate, rhythm, no edema, no murmur Respiratory: lungs clear, normal breath sounds, no respiratory distress Ankles: right ankle non-tender, right ankle normal inspection, right ankle normal range of motion, right ankle no evidence of injury Feet: right foot non-tender, right foot other (Charcot foot with disfigurement. No focal tenderness. No asymmetric changes of erythema, swelling, or skin breakdown. There are calluses on the tips of the great toes bilaterally.) Neurologic/Psychiatric: slubber runner II-XII nml as tested, alert, normal mood/affect, oriented x 3, other (loss of sensory in the ankles and feet) Skin: normal color, warm/dry Progress/Results/Core Measures Results/Orders My Orders Orders - SAMANTHA RUSSO MD Foot, Right, 3 View (02/20/20 17:56) Vital Signs/I&O 02/20/20 02/20/20 17:50 20:50 Temp 36.6 36.6 Pulse 83 83 Resp 13 13 B/P (MAP) 126/77 (93) 126/77 (93) Pulse Ox 96 96 O2 Delivery Room Air Room Air Blood Pressure Mean: 93 Progress Progress Note : Time: 21:40 Progress Note x-rays were obtained that showed Charcot deformities but no acute injuries. Patient takes multiple pain medications at home including oxycodone and gabapentin. She is referred to her primary care provider for further pain management. 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 Diagnostic Imaging Diagonstic Imaging: Xray Plain Films/CT/US/NM/MRI: other (right foot) Comments NAME: ALFREDO KAUFMAN [facility] REC#: [id number] PT STATUS: REG ER : 1950 PHYSICIAN: SAMANTHA RUSSO MD ADMIT DATE: 02/20/20/ER Signed Date of Exam:02/20/20 FOOT, RIGHT, 3 VIEW EXAM: Right foot radiograph. EXAM DATE: 02/20/2020. COMPARISON: Right foot radiograph 01/20/2016. HISTORY: Right foot pain. TECHNIQUE: Three views of the right foot. FINDINGS: Progressive advanced degenerative changes within the midfoot and tarsometatarsal joints. There is flattening of the foot. No obvious acute fracture or dislocation. Mild soft tissue swelling is unchanged. IMPRESSION: Mildly progressed advanced degenerative changes of the right foot without obvious acute fracture. Dictated by: Dictated on workstation # [id number] Dict: 02/20/201823 Trans: 02/20/201832 [facility] [id number] Interpreted by: MAYDA AGUILAR DO Electronically signed by: MAYDA AGUILAR DO 02/20/201832 Departure Impression Primary Impression: Foot pain, right Additional Impression: Charcot foot due to diabetes mellitus Disposition: 01 HOME, SELF-CARE Condition: Stable Departure-Patient Inst. Decision time for Depature: 18:52 Referrals: DELIA TRIANA MD (PCP/Family) Primary Care Physician Patient Instructions: Diabetic Neuropathy Add. Discharge Instructions: No fractures or dislocations were seen in your x-ray. You may be experiencing some form of neuropathy. Please follow-up with your primary care provider soon as possible to review pain management. Please call her office first thing in the morning. Please also follow-up with your bindery machine setter/set up operator as soon as possible. Return to care if you have worsening symptoms. All discharge instructions reviewed with patient and/or family. Voiced understanding. Copy Copies To 1: DELIA TRIANA MD, JOSHUA T MD Feb 20, 2020 18:53
[2020-02-20 20:50] VITALS: BP 126/77
== END 2020-02-20 20:51 | disposition home or self-care (01) ==
LOC: EDUNIT# 17:50 → ER 17:51
DX: E11.610 Type 2 diabetes mellitus with diabetic neuropathic arthropathy (principal); M79.671 Pain in right foot; E66.01 Morbid (severe) obesity due to excess calories; I25.10 Atherosclerotic heart disease of native coronary artery without angina pectoris; F41.9 Anxiety disorder, unspecified; I25.2 Old myocardial infarction; E78.00 Pure hypercholesterolemia, unspecified; I10 Essential (primary) hypertension; K21.9 Gastro-esophageal reflux disease without esophagitis; F32.9 Major depressive disorder, single episode, unspecified; Z82.49 Family history of ischemic heart disease and other diseases of the circulatory system; Z83.3 Family history of diabetes mellitus; Z80.0 Family history of malignant neoplasm of digestive organs; Z68.41 Body mass index [BMI] 40.0-44.9, adult; Z85.42 Personal history of malignant neoplasm of other parts of uterus; Z87.891 Personal history of nicotine dependence; Z95.5 Presence of coronary angioplasty implant and graft; Z86.718 Personal history of other venous thrombosis and embolism; Z88.8 Allergy status to other drugs, medicaments and biological substances; Z79.82 Long term (current) use of aspirin; Z79.4 Long term (current) use of insulin; Z79.01 Long term (current) use of anticoagulants
CPT/HCPCS: 73630

== ENCOUNTER → 2020-02-27 | Outpatient (CLI) | payer MEDICARE, MEDICAID ==
[~2020-02-27] MED LIST changes: +HOLD METFORMIN - RECEIVED CONTRAST 20 ML VIAL IV SCH; +IOHEXOL 350 MG/ML 100 ML (OMNIPAQUE 350) VIAL IV ONE; +NS 100 ML (IVPB) BAG IV ONE
[2020-02-27 10:29] LABS: BUN/CREATININE RATIO 20; CREATININE SERUM 0.71 MG/DL (0.60-1.30); GFR ESTIMATED > 60
--- NOTE | 2020-02-27 11:22 | Diagnostic Imaging Report ---
PROCEDURE: US Venous Lower Ext Darrin. TECHNIQUE: Multiple real-time grayscale images were obtained over the lower extremities in various projections, bilaterally. Additional duplex Doppler and color Doppler images were also obtained. INDICATION: Bilateral leg pain. Patient has prior history of DVT. There is no evidence of right or left lower extremity DVT. Lower extremity deep venous systems demonstrates normal compressibility with normal response to augmentation and Valsalva. Imaging of the calf veins is somewhat limited due to edema. IMPRESSION: No evidence of right or left lower extremity DVT. Dictated by: Dictated on workstation # [id number]
--- NOTE | 2020-02-27 11:59 | Diagnostic Imaging Report ---
PROCEDURE: CT angiography of the chest with contrast. TECHNIQUE: Multiple contiguous axial images were obtained through the chest after uneventful bolus administration of intravenous contrast. 3D reconstructed CTA MIP acquisitions were also performed. Auto Exposure Controls were utilized during the CT exam to meet ALARA standards for radiation dose reduction. INDICATION: Shortness of air. COMPARISON: 05/31/2019. FINDINGS: Evaluation of the pulmonary arterial system is without evidence of thromboembolism. No filling defects are seen within central, lobar, or segmental branches. The thoracic aorta is of normal caliber. No dissection is detected. There is no pericardial or pleural fluid identified. No axillary lymphadenopathy is detected. No mediastinal or hilar lymphadenopathy is detected. No parenchymal mass, nodule, or infiltrate is identified. High density in the right kidney is most consistent with a probable staghorn calculus in the upper pole measuring 3.2 x 1.0 cm. IMPRESSION: 1. No evidence of pulmonary embolism or thoracic aortic dissection. 2. Right renal staghorn calculus. Dictated by: Dictated on workstation # [id number]
== END ==
LOC: RT 09:54
PROVIDERS: ATTEND Nurse Practitioner Family
DX: J45.909 Unspecified asthma, uncomplicated (principal); N20.0 Calculus of kidney; M79.605 Pain in left leg; M79.604 Pain in right leg; Z91.81 History of falling; Z86.718 Personal history of other venous thrombosis and embolism
CPT/HCPCS: 36415; 71275; 82565; 84520; 93970; 94060; 94726; 94729

== ENCOUNTER → 2020-03-26 | Outpatient (CLI) | payer MEDICARE, MEDICAID ==
[~2020-03-26] MED LIST changes: -AMIO200T4 PO; +AMIO200T6 PO; +AMLO-250 PO; -AMLO5TAB9 PO; -HOLD METFORMIN - RECEIVED CONTRAST 20 ML VIAL IV SCH; -IOHEXOL 350 MG/ML 100 ML (OMNIPAQUE 350) VIAL IV ONE; -NS 100 ML (IVPB) BAG IV ONE
--- NOTE | 2020-03-26 13:40 | Diagnostic Imaging Report ---
INDICATION: Endometrial neoplasia. Complete transvaginal pelvic sonography was performed. No adnexal mass or free fluid is identified. The uterus is anteverted measuring 6.6 x 3.4 x 3.2 cm. Endometrium is approximately 9 mm in thickness. There are endometrial calcifications present. No discrete fibroid is identified. Patient does have an IUD in place which appears to be somewhat low in the region of the lower uterine segment. Adnexal evaluation was performed. Ovaries cannot be visualized. IMPRESSION: 1. Endometrial calcifications and some endometrial thickening of 9 mm. 2. IUD within the endometrial canal is low in position. 3. Nonvisualized ovaries. Dictated by: Dictated on workstation # [id number]
== END ==
LOC: RAD 09:53
PROVIDERS: ATTEND Obstetrics & Gynecology
DX: N85.02 Endometrial intraepithelial neoplasia [EIN] (principal); I82.509 Chronic embolism and thrombosis of unspecified deep veins of unspecified lower extremity; Z68.41 Body mass index [BMI] 40.0-44.9, adult
CPT/HCPCS: 76830

== ENCOUNTER → 2020-03-26 | Outpatient (CLI) | payer MEDICARE, MEDICAID ==
--- NOTE | 2020-03-26 12:55 | Diagnostic Imaging Report ---
INDICATION: Routine screening. COMPARISON: 10/30/2018 and 10/11/2017. TECHNIQUE: 2D and 3D bilateral screening mammography was performed with CAD. FINDINGS: Scattered fibroglandular densities are noted bilaterally. A cardiac monitoring device overlies the medial left breast. Benign calcifications are noted in both breasts. No mass or malignant appearing microcalcifications are seen. The axillae are unremarkable. IMPRESSION: No mammographic features suspicious for malignancy are identified. ACR BI-RADS Category 2: Benign findings. Result letter will be mailed to the patient. Note: At least 10% of breast cancer is not imaged by mammography. Dictated by: Dictated on workstation # [id number]
== END ==
LOC: RAD 09:56
PROVIDERS: ATTEND Internal Medicine
DX: Z12.31 Encounter for screening mammogram for malignant neoplasm of breast (principal)
CPT/HCPCS: 77063; 77067

== ENCOUNTER 2020-04-22 14:46 | Emergency (ER) | payer MEDICARE, MEDICAID ==
[~2020-04-22] VITALS: Ht 177.8 cm; Wt 130.4 kg
--- NOTE | 2020-04-22 14:50 | NUR ---
Stephen DUARTE APRN TALKED WITH POSION CONTROL SEE HIS NOTE.
[2020-04-22] MEDS ORDERED: NALOXONE 0.4 MG/ML 1 ML (NARCAN) VIAL ONE (14:55)
--- NOTE | 2020-04-22 15:00 | ED General ---
General Stated Complaint: OD Source of Information: Patient Exam Limitations: No Limitations History of Present Illness Date Seen by Provider: Apr 22, 2020 Time Seen by Provider: 14:55 Initial Comments To ER by EMS from home with reports of an unintentional overdose of oxycodone 10/325 mg that occurred at 12 PM today. The night before she goes to bed she o rganizes her next days cocktail of medications and a random pill bottle. She grabbed 1 of those bottles which she believed to be today's cocktail of medications and took it at about noon. She began to feel dizzy unsteady on her feet and with tremors. She looked at the bottle of pills and she had actually taken 15-20 of the oxycodone 10/325. She does not have any nausea or vomiting. She does feel a bit sedate. Timing/Duration: 1-2 Days Severity: Moderate Associated Systoms: Denies Symptoms Allergies and Home Medications Allergies Coded Allergies: black cohosh (Verified Allergy, Unknown, 08/07/15) glyburide (Verified Allergy, Unknown, 08/07/15) isosorbide (Verified Allergy, Unknown, 08/07/15) Uncoded Allergies: ARCABOSE (Allergy, Mild, Abdominal Pain, 10/01/19) GAS PAINS Home Medications Acetaminophen 500 Mg Tablet, 1,000 MG PO DAILY PRN, (Reported) Amlodipine Besylate 5 Mg Tablet, 5 MG PO DAILY, (Reported) Aspirin 81 Mg Tablet.dr, 81 MG PO DAILY, (Reported) Atorvastatin Calcium 80 Mg Tablet, 80 MG PO HS, (Reported) Calcium Carbonate/Vitamin D3 1 Each Tablet, 1 TAB PO BID, (Reported) Cetirizine HCl 10 Mg Tablet, 10 MG PO DAILY, (Reported) Cholecalciferol (Vitamin D3) 25 Mcg Tablet, 25 MCG PO 1200, (Reported) Cyclobenzaprine HCl 10 Mg Tablet, 10 MG PO 1200,1800,2200, (Reported) Cyclosporine 1 Each Droperette, 1 DROP OU BID, (Reported) Diltiazem HCl 360 Mg Cap.er.24h, 360 MG PO DAILY, (Reported) Dofetilide 250 Mcg Capsule, 250 MCG PO BID, (Reported) Famotidine 20 Mg Tablet, 20 MG PO DAILY PRN for HEARTBURN, (Reported) Ferrous Sulfate 325 Mg Tablet, 325 MG PO 1800, (Reported) Fluconazole 100 Mg Tablet, 100 MG PO DAILY Prescribed by: SAWYER TELLO on 02/08/20 1014 Fluticasone/Vilanterol 1 Each Blst.w.dev, 1 EACH IH DAILY, (Reported) Gabapentin 800 Mg Tablet, 800 MG PO QID, (Reported) Glucosam/Chond/Hyalu/Cf Borate 1 Each Tablet, 1 EACH PO BID, (Reported) Hydroxyzine HCl 10 Mg Tablet, 10 MG PO TID, (Reported) Imipramine HCl 50 Mg Tablet, 50 MG PO HS, (Reported) Insulin Aspart 300 Units/3 Ml Solution, 5-6 UNITS SQ TIDAC, (Reported) Insulin Glargine,Hum.rec.anlog 100 Unit/1 Ml Vial, 18 UNIT SQ HS, (Reported) Lactobacillus Rhamnosus GG 1 Each Capsule, 1 CAP PO DAILY PRN for WHILE TAKING ANTIBIOTICS, (Reported) Levalbuterol Tartrate 15 Gm Hfa.aer.ad, 2 PUFF INH Q6H PRN for SHORTNESS OF BREATH, (Reported) Lisinopril 20 Mg Tablet, 20 MG PO DAILY, (Reported) Metformin HCl 1,000 Mg Tablet, 1,000 MG PO BID WITH MEALS, (Reported) Metoprolol Succinate 50 Mg Tab.er.24h, 50 MG PO DAILY, (Reported) Mineral Oil/Petrolatum,White 3.5 Gm Oint...g., OU HS, (Reported) Mirabegron 50 Mg Tab.er.24h, 50 MG PO DAILY, (Reported) Multivitamin 1 Each Tablet, 1 EACH PO DAILY, (Reported) Nitrofurantoin Macrocrystal 100 Mg Capsule, 100 MG PO 1800, (Reported) Nystatin 100,000 Unit/1 Ml Oral.susp, 4 ML PO QID, (Reported) SWISH AND SWALLOW [place] 3 Polyunsat Fatty Acids 1,000 Mg Cap, 1,000 MG PO TID, (Reported) Oxycodone HCl/Acetaminophen 1 Each Tablet, 1 TAB PO EVERY 4-6 HOURS PRN for PAIN-MODERATE (5-7), (Reported) Polyethylene Glycol 3350 17 Gm Powd.pack, 17 GM PO DAILY, (Reported) Polyvinyl Alcohol/Povidone 15 Ml Drops, 2 DROPS OU Q4H PRN for DRY EYES, (Report ed) Prasugrel HCl 10 Mg Tablet, 10 MG PO DAILY, (Reported) Primidone 250 Mg Tablet, 250 MG PO TID, (Reported) Sennosides/Docusate Sodium 1 Each Tablet, 1 EACH PO DAILY PRN for CONSTIPATION- 6TH LINE, (Reported) Solifenacin Succinate 10 Mg Tablet, 10 MG PO 1600, (Reported) Venlafaxine HCl 150 Mg Cap.er.24h, 150 MG PO DAILY, (Reported) Warfarin Sodium 4 Mg Tablet, 4 MG PO ,TUE, (Reported) TAKES 4MG ON .SAT TAKES 2MG ( OF A 4MG TAB) ON Warfarin Sodium 4 Mg Tablet, 2 MG PO , (Reported) TAKES 4MG ON .SAT TAKES 2MG ( OF A 4MG TAB) ON Patient Home Medication List Home Medication List Reviewed: Yes Review of Systems Review of Systems Constitutional: see HPI EENTM: see HPI Respiratory: no symptoms reported Cardiovascular: no symptoms reported Genitourinary: no symptoms reported Musculoskeletal: no symptoms reported Skin: no symptoms reported Psychiatric/Neurological: No Symptoms Reported Hematologic/Lymphatic: No Symptoms Reported Immunological/Allergic: no symptoms reported Past Ikcwyhg-Nclzga-Mulcyb Hx Patient Social History Type Used: Cigarettes Former Smoker, Quit: May 18, 1980 2nd Hand Smoke Exposure: No Recent Hopitalizations: No Immunizations Up To Date Tetanus Booster (TDap): Less than 5yrs PED Vaccines UTD: Yes Date of Pneumonia Vaccine: Feb 14, 2017 Date of Influenza Vaccine: Jan 14, 2019 Seasonal Allergies Seasonal Allergies: No Past Medical History Surgeries: Yes (LAD STENTS PLACED NOVEMBER 2018) Cardiac, Coronary Stent, Eye Surgery, Orthopedic Respiratory: Yes Asthma, Sleep Apnea Currently Using CPAP: Yes (wears cpap at night with no o2, brought her machine and her meds with her) Currently Using BIPAP: No Cardiac: Yes Atrial Fibrillation, Chronic Edema/Swelling, Coronary Artery Disease, Deep Vein Thrombosis, Heart Attack, High Cholesterol, Hypertension Neurological: Yes Neuropathy 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 Disorders: Yes Female 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 Disorders: Denies 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 Sexually Transmitted Disease: No HIV/AIDS: No Genitourinary: Yes UTI-Chronic Gastrointestinal: Yes Gastroesophageal Reflux, Chronic Constipation Musculoskeletal: Yes (Charcot foot) Degenerate Disk Disease, Arthritis, Chronic Back Pain Endocrine: Yes (MORBID OBESITY) Diabetes, Insulin dep HEENT: Yes Cataract Loss of Vision: Bilateral Hearing Impairment: Denies Cancer: No Uterine Did You Recieve Any Treatments: Yes What Type of Treatment Did You: Surgical Intervention Psychosocial: Yes Anxiety, Depression Integumentary: No Blood Disorders: No Adverse Reaction/Blood Tranf: No Family Medical History Cardiovascular disease 19 FATHER 19 MOTHER Colon cancer 19 FATHER 19 MOTHER Diabetes mellitus 19 MOTHER G8 BROTHER G8 SISTER Myocardial infarction 19 FATHER No Pertinent Family Hx Physical Exam Vital Signs Vital Signs - First Documented 04/22/20 14:46 Temp 36.1 Pulse 89 Resp 18 B/P (MAP) 103/58 (73) Pulse Ox 93 O2 Delivery Room Air Capillary Refill : Height, Weight, BMI Height: 5'10.50" Weight: 302lbs. 0.0oz. [id number]; 41.00 BMI Method:Stated General Appearance: No Apparent Distress, WD/WN Eyes: Bilateral Eye Normal Inspection, Bilateral Eye PERRL, Bilateral Eye EOMI Neck: Full Range of Motion, Normal Inspection Respiratory: Normal Breath Sounds, No Accessory Muscle Use, No Respiratory Distress Cardiovascular: Regular Rate, Rhythm, Normal Peripheral Pulses Gastrointestinal: Normal Bowel Sounds, Non Tender, Soft Extremity: Normal Capillary Refill, Normal Inspection Neurologic/Psychiatric: Alert, Oriented x3 Skin: Normal Color, Warm/Dry Progress/Results/Core Measures Suspected Sepsis SIRS Temperature: Pulse: Respiratory Rate: Laboratory Tests 04/22/20 14:56: White Blood Count 7.7 Blood Pressure / Mean: Laboratory Tests 04/22/20 14:56: Creatinine 0.90, Platelet Count 274, Total Bilirubin 0.2 04/22/20 15:11: INR Comment 2.6H Results/Orders Lab Results Laboratory Tests Test 04/22/20 14:56 04/22/20 15:11 04/22/20 16:05 04/22/20 17:37 Range/Units White Blood Count 7.7 4.3-11.0 10^3/uL Red Blood Count 4.42 3.80-5.11 10^6/uL Hemoglobin 12.9 11.5-16.0 g/dL Hematocrit 40 35-52 % Mean Corpuscular Volume 91 80-99 fL Mean Corpuscular Hemoglobin 29 25-34 pg Mean Corpuscular Hemoglobin Concent 32 32-36 g/dL Red Cell Distribution Width 14.9 H 10.0-14.5 % Platelet Count 274 130-400 10^3/uL Mean Platelet Volume 9.8 9.0-12.2 fL Immature Granulocyte % (Auto) 1 % Neutrophils (%) (Auto) 50 42-75 % Lymphocytes (%) (Auto) 30 12-44 % Monocytes (%) (Auto) 9 0-12 % Eosinophils (%) (Auto) 9 0-10 % Basophils (%) (Auto) 0 0-10 % Neutrophils # (Auto) 3.8 1.8-7.8 10^3/uL Lymphocytes # (Auto) 2.3 1.0-4.0 10^3/uL Monocytes # (Auto) 0.7 0.0-1.0 10^3/uL Eosinophils # (Auto) 0.7 H 0.0-0.3 10^3/uL Basophils # (Auto) 0.0 0.0-0.1 10^3/uL Immature Granulocyte # (Auto) 0.1 0.0-0.1 10^3/uL Sodium Level 138 135-145 MMOL/L Potassium Level 4.5 3.6-5.0 MMOL/L Chloride Level 102 98-107 MMOL/L Carbon Dioxide Level 25 21-32 MMOL/L Anion Gap 11 5-14 MMOL/L Blood Urea Nitrogen 19 H 7-18 MG/DL Creatinine 0.90 0.60-1.30 MG/DL Estimat Glomerular Filtration Rate > 60 BUN/Creatinine Ratio 21 Glucose Level 103 70-105 MG/DL Calcium Level 8.5 8.5-10.1 MG/DL Corrected Calcium 8.7 8.5-10.1 MG/DL Total Bilirubin 0.2 0.1-1.0 MG/DL Aspartate Amino Transf (AST/SGOT) 32 30 5-34 U/L Alanine Aminotransferase (ALT/SGPT) 42 42 0-55 U/L Alkaline Phosphatase 147 H 40-136 U/L Total Protein 7.4 6.4-8.2 GM/DL Albumin 3.8 3.2-4.5 GM/DL Salicylates Level < 5.0 L 5.0-20.0 MG/DL Acetaminophen Level 17 26 10-30 UG/ML Serum Alcohol < 10 <10 MG/DL Prothrombin Time 28.1 H 12.2-14.7 SEC INR Comment 2.6 H 0.8-1.4 Urine Color YELLOW Urine Clarity SL CLOUDY Urine pH 5.5 5-9 Urine Specific Bailey 1.010 L 1.016-1.022 Urine Protein NEGATIVE NEGATIVE Urine Glucose (UA) NEGATIVE NEGATIVE Urine Ketones NEGATIVE NEGATIVE Urine Nitrite POSITIVE H NEGATIVE Urine Bilirubin NEGATIVE NEGATIVE Urine Urobilinogen 0.2 < = 1.0 MG/DL Urine Leukocyte Esterase 2+ H NEGATIVE Urine RBC (Auto) TRACE-I NEGATIVE Urine RBC 2-5 H /HPF Urine WBC 50-100 H /HPF Urine Squamous Epithelial Cells NONE /HPF Urine Crystals NONE /LPF Urine Bacteria MODERATE H /HPF Urine Casts NONE /LPF Urine Mucus NEGATIVE /LPF Urine Culture Indicated YES My Orders Orders - ADONAY DAURTE APRN Cbc With Automated Diff (04/22/20 14:51) Comprehensive Metabolic Panel (04/22/20 14:51) Acetaminophen (04/22/20 14:51) Ekg Tracing (04/22/20 14:51) Alcohol (04/22/20 14:51) Salicylate (04/22/20 14:51) Ua Culture If Indicated (04/22/20 14:51) Protime With Inr (04/22/20 14:51) Acetaminophen (04/22/20 16:00) Aspartate Amino Transferase (04/22/20 16:00) Alanine Aminotransferase (04/22/20 16:00) Naloxone Injection (Narcan Injection) (04/22/20 14:55) Naloxone Injection (Narcan Injection) (04/22/20 15:15) Naloxone Injection (Narcan Injection) (04/22/20 15:15) Drug Screen Stat (Urine) (04/22/20 16:04) Ceftriaxone For Iv Use (Rocephin For I (04/22/20 18:00) Urine Culture (04/22/20 17:37) Medications Given in ED Current Medications Medications Dose Ordered Sig/Ashley Route Start Time Stop Time Status Last Admin Dose Admin Naloxone HCl 0.4 mg STK-MED ONCE .ROUTE 04/22/20 14:55 04/22/20 14:58 DC 04/22/20 15:05 0.4 MG Naloxone HCl 0.8 mg ONCE ONCE IV 04/22/20 15:15 04/22/20 15:16 DC 04/22/20 15:36 0.4 MG Vital Signs/I&O 04/22/20 04/22/20 14:46 15:51 Temp 36.1 Pulse 89 78 Resp 18 18 B/P (MAP) 103/58 (73) 110/46 (67) Pulse Ox 93 95 O2 Delivery Room Air Room Air Capillary Refill : Departure Communication (Admissions) Family Conversation 1515-I spoke with poison control Ivan, he was very helpful and suggested we educate the patient on how to store her pills. 1513-gave 0.4 mg IV Narcan for bradypnea with respiratory rate of 5-6 and oxygen saturation of 80%. Patient became more alert began conversing with me and oxygen saturation and respiratory rate kaitlin appropriately. 1751-Still alert and oriented.awake. Impression Primary Impression: Opiate or related narcotic overdose Additional Impression: Urinary tract infection Disposition: HOME, SELF-CARE Condition: Stable Departure-Patient Inst. Decision time for Depature: 17:55 Referrals: DELIA TRIANA MD (PCP/Family) Primary Care Physician Patient Instructions: ALCOHOL AND SUBSTANCE ABUSE, Opioid Overdose (DC), Ur inary Tract Infection, Adult (DC) Add. Discharge Instructions: 1. Return to ER for any concerns 2. Antibiotics for urinary tract infection as directed. If these antibiotics do not cover the bacteria that is causing this infection then we will call you with further instructions on a different antibiotic. Return to ER for any worsening. Follow-up with your doctor later this week for recheck. Scripts Cefuroxime Axetil (Cefuroxime) 500 Mg Tablet 500 MG PO BID, #10 TAB Prov: ADONAY DUARTE APRN 04/22/20 ADONAY DUARTE APRN Apr 22, 2020 14:59
[2020-04-22 15:10] LABS: BASOPHILS % (AUTO) 0 % (0-10); EOSINOPHILS # (AUTO) 0.7 10^3/uL (0.0-0.3); EOSINOPHILS % (AUTO) 9 % (0-10); HEMATOCRIT 40 % (35-52); HEMOGLOBIN 12.9 g/dL (11.5-16.0); LYMPHOCYTES # (AUTO) 2.3 10^3/uL (1.0-4.0); LYMPHOCYTES % (AUTO) 30 % (12-44); MEAN CORPUSCULAR HEMOGLOBIN 29 pg (25-34); MEAN CORPUSCULAR HGB CONC 32 g/dL (32-36); MEAN CORPUSCULAR VOLUME 91 fL (80-99); MEAN PLATELET VOLUME 9.8 fL (9.0-12.2); MONOCYTES # (AUTO) 0.7 10^3/uL (0.0-1.0); MONOCYTES % (AUTO) 9 % (0-12); NEUTROPHILS # (AUTO) 3.8 10^3/uL (1.8-7.8); NEUTROPHILS % (AUTO) 50 % (42-75); PLATELET COUNT 274 10^3/uL (130-400); WHITE BLOOD COUNT 7.7 10^3/uL (4.3-11.0)
[2020-04-22 15:13] LABS: ALBUMIN 3.8 GM/DL (3.2-4.5); CHLORIDE 102 MMOL/L (98-107); POTASSIUM 4.5 MMOL/L (3.6-5.0); SODIUM 138 MMOL/L (135-145)
[2020-04-22 15:15] LABS: CALCIUM 8.5 MG/DL (8.5-10.1)
[2020-04-22] MEDS ORDERED: NALOXONE 0.4 MG/ML 1 ML (NARCAN) VIAL IV ONE ×2 (15:15)
[2020-04-22 15:16] LABS: GLUCOSE 103 MG/DL (70-105); TOTAL PROTEIN 7.4 GM/DL (6.4-8.2)
[2020-04-22 15:17] LABS: CARBON DIOXIDE 25 MMOL/L (21-32)
[2020-04-22 15:18] LABS: BILIRUBIN,TOTAL 0.2 MG/DL (0.1-1.0)
[2020-04-22 15:20] LABS: ALKALINE PHOSPHATASE 147 U/L (40-136); GFR ESTIMATED > 60
[2020-04-22 15:21] LABS: ACETAMINOPHEN 17 UG/ML (10-30); BUN/CREATININE RATIO 21
[2020-04-22 15:22] LABS: SALICYLATE < 5.0 MG/DL (5.0-20.0)
[2020-04-22 15:23] LABS: ALANINE AMINOTRANSFERASE 42 U/L (0-55)
[2020-04-22 15:29] LABS: INR 2.6 (0.8-1.4); PROTHROMBIN TIME PATIENT 28.1 SEC (12.2-14.7)
--- NOTE | 2020-04-22 15:39 | NUR ---
2ND DOSE OF NARCAN GIVEN DUE TO PATIENT HAVING SNORING RESP WHILE SLEEPING. EASILY AWAKENED.
[2020-04-22 16:28] LABS: ACETAMINOPHEN 26 UG/ML (10-30); ALANINE AMINOTRANSFERASE 42 U/L (0-55)
[2020-04-22 17:44] LABS: BILIRUBIN,URINE NEGATIVE (NEGATIVE); CLARITY,URINE SL CLOUDY; COLOR,URINE YELLOW; GLUCOSE, URINE (UA) NEGATIVE (NEGATIVE); KETONES,URINE NEGATIVE (NEGATIVE); LEUKOCYTE ESTERASE ,URINE 2+ (NEGATIVE); NITRITE,URINE POSITIVE (NEGATIVE); PH,URINE 5.5 (5-9); PROTEIN,URINE NEGATIVE (NEGATIVE)
[2020-04-22 17:53] LABS: BACTERIA,URINE MODERATE /HPF; WBC,URINE 50-100 /HPF
[2020-04-22 17:57] LABS: AMPHETAMINE SCREEN, URINE NEGATIVE (NEGATIVE); BARBITURATE SCREEN URINE POSITIVE (NEGATIVE); BENZODIAZEPINES SCREEN URINE NEGATIVE (NEGATIVE); CANNABINOID SCREEN, URINE NEGATIVE (NEGATIVE); COCAINE SCREEN URINE NEGATIVE (NEGATIVE); METHAMPHETAMINE SCREEN URINE S NEGATIVE (NEGATIVE); OPIATE SCREEN URINE POSITIVE (NEGATIVE); TRICYCLIC ANTIDEPRESSANTS SCRE POSITIVE (NEGATIVE)
[2020-04-22] MEDS ORDERED: CEFU500T63 PO (17:57)
[2020-04-22 17:58] LABS: METHADONE STAT NEGATIVE (NEGATIVE); OXYCODONE STAT POSITIVE (NEGATIVE); PROPOXYPHENE STAT NEGATIVE (NEGATIVE)
[2020-04-22] MEDS ORDERED: cefTRIAXone FOR IV USE 1,000 MG in WATER (STERILE) FOR INJECTION 10 ML IV ONE (18:00)
[2020-04-22 18:37] VITALS: BP 127/70
--- NOTE | 2020-04-22 18:37 | NUR ---
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 ALERT AND TALKING WITHOUT PROBLEM.
== END 2020-04-22 18:55 | disposition home or self-care (01) ==
LOC: EDUNIT# 14:46 → ER 14:47
DX: T40.0X1A Poisoning by opium, accidental (unintentional), initial encounter (principal); N39.0 Urinary tract infection, site not specified; E66.01 Morbid (severe) obesity due to excess calories; F41.9 Anxiety disorder, unspecified; G89.29 Other chronic pain; M54.9 Dorsalgia, unspecified; I25.2 Old myocardial infarction; E11.9 Type 2 diabetes mellitus without complications; I48.91 Unspecified atrial fibrillation; I10 Essential (primary) hypertension; F32.9 Major depressive disorder, single episode, unspecified; K21.9 Gastro-esophageal reflux disease without esophagitis; I25.10 Atherosclerotic heart disease of native coronary artery without angina pectoris; E78.00 Pure hypercholesterolemia, unspecified; J45.909 Unspecified asthma, uncomplicated; Z83.3 Family history of diabetes mellitus; Z82.49 Family history of ischemic heart disease and other diseases of the circulatory system; Z80.0 Family history of malignant neoplasm of digestive organs; Z85.42 Personal history of malignant neoplasm of other parts of uterus; Z68.41 Body mass index [BMI] 40.0-44.9, adult; Z95.5 Presence of coronary angioplasty implant and graft; Z87.891 Personal history of nicotine dependence; Z86.718 Personal history of other venous thrombosis and embolism; Z79.4 Long term (current) use of insulin; Z79.82 Long term (current) use of aspirin; Z79.01 Long term (current) use of anticoagulants; Z79.891 Long term (current) use of opiate analgesic; Z88.8 Allergy status to other drugs, medicaments and biological substances
CPT/HCPCS: 51701; 80053; 80306; 81000; 84450; 84460; 85025; 85610; 87077; 87088; 87186; 93005; 99284; G0480 ×3; 36415; 80320; 80329

== ENCOUNTER 2020-08-04 08:06 | Outpatient (CLI) | payer MEDICARE, MEDICAID ==
[~2020-08-04] VITALS: Ht 178 cm; Wt 129.5 kg
[~2020-08-04 08:06] MED LIST changes: +CEFU500T63 PO; +CHOL-34 PO; -CHOL10002 PO; -LISI-552 PO; -LISI-556 PO; +LISI-729 PO; +LISI20TA26 PO
== END 2020-08-04 14:34 | disposition home or self-care (01) ==
LOC: PREOP 08:06
PROVIDERS: ATTEND Specialist
DX: Z01.818 Encounter for other preprocedural examination (principal)

== ENCOUNTER → 2020-09-15 | Outpatient (CLI) | payer MEDICARE, MEDICAID ==
[~2020-09-15] MED LIST changes: +CEPH500T PO; -DRON400T2 PO; +DRON400T6 PO
== END | disposition home or self-care (01) ==
LOC: PREOP 05:49
PROVIDERS: ATTEND Specialist
DX: Z01.818 Encounter for other preprocedural examination (principal)

== ENCOUNTER 2020-09-16 05:52 | Emergency (ER) | payer MEDICARE, MEDICAID ==
[~2020-09-16 05:52] MED LIST changes: -CEPH500T PO
--- NOTE | 2020-09-16 06:13 | ED Fall/Injury ---
General Stated Complaint: FALL Source: patient Exam Limitations: no limitations History of Present Illness Date Seen by Provider: September 16, 2020 Time Seen by Provider: 05:56 Initial Comments Patient presents ER by EMS from home with chief complaint she was getting up to walk and did not turn on the lights tripped over a box and landed on outstretched hands. She has swelling in her left hand pain and some bleeding on her right hand and a large hematoma in the center of her forehead. She denies loss of consciousness. She does however take warfarin for history of atrial fibrillation status post ablation by Dr. Russell. PCP Dr. Pate. She rates her pain is about a 9 out of 10. She has not had anything for pain. EMS remarks her glucose was around 240. She also takes Effient. Allergies and Home Medications Allergies Coded Allergies: black cohosh (Verified Allergy, Unknown, 08/07/15) glyburide (Verified Allergy, Unknown, 08/07/15) isosorbide (Verified Allergy, Unknown, 08/07/15) Uncoded Allergies: ARCABOSE (Allergy, Mild, Abdominal Pain, 10/01/19) GAS PAINS Home Medications Acetaminophen 500 Mg Tablet, 1,000 MG PO DAILY PRN, (Reported) Amlodipine Besylate 5 Mg Tablet, 5 MG PO DAILY, (Reported) Aspirin 81 Mg Tablet.dr, 81 MG PO DAILY, (Reported) Atorvastatin Calcium 80 Mg Tablet, 80 MG PO HS, (Reported) Calcium Carbonate/Vitamin D3 1 Each Tablet, 1 TAB PO BID, (Reported) Cetirizine HCl 10 Mg Tablet, 10 MG PO DAILY, (Reported) Cholecalciferol (Vitamin D3) 25 Mcg Tablet, 25 MCG PO 1200, (Reported) Cyclobenzaprine HCl 10 Mg Tablet, 10 MG PO TID, (Reported) Cyclosporine 1 Each Droperette, 1 DROP OU BID, (Reported) Diltiazem HCl 360 Mg Cap.er.24h, 360 MG PO DAILY, (Reported) Dofetilide 250 Mcg Capsule, 250 MCG PO BID, (Reported) Famotidine 20 Mg Tablet, 20 MG PO DAILY PRN for HEARTBURN, (Reported) Ferrous Sulfate 325 Mg Tablet, 325 MG PO 1800, (Reported) Fluticasone/Vilanterol 1 Each Blst.w.dev, 1 EACH IH DAILY, (Reported) Gabapentin 800 Mg Tablet, 800 MG PO QID, (Reported) Glucosam/Chond/Hyalu/Cf Borate 1 Each Tablet, 1 EACH PO BID, (Reported) Hydroxyzine HCl 10 Mg Tablet, 10 MG PO TID, (Reported) Imipramine HCl 50 Mg Tablet, 50 MG PO HS, (Reported) Insulin Aspart 300 Units/3 Ml Solution, 5-6 UNITS SQ TIDAC, (Reported) Insulin Glargine,Hum.rec.anlog 100 Unit/1 Ml Vial, 18 UNIT SQ HS, (Reported) Lactobacillus Rhamnosus GG 1 Each Capsule, 1 CAP PO DAILY PRN for WHILE TAKING ANTIBIOTICS, (Reported) Lisinopril 20 Mg Tablet, 20 MG PO DAILY, (Reported) Metformin HCl 1,000 Mg Tablet, 1,000 MG PO BID WITH MEALS, (Reported) Metoprolol Succinate 50 Mg Tab.er.24h, 50 MG PO DAILY, (Reported) Mineral Oil/Petrolatum,White 3.5 Gm Oint...g., OU HS, (Reported) Mirabegron 50 Mg Tab.er.24h, 50 MG PO DAILY, (Reported) Multivitamin 1 Each Tablet, 1 EACH PO DAILY, (Reported) Nitrofurantoin Macrocrystal 100 Mg Capsule, 100 MG PO 1800, (Reported) [place] 3 Polyunsat Fatty Acids 1,000 Mg Cap, 1,000 MG PO TID, (Reported) Oxycodone HCl/Acetaminophen 1 Each Tablet, 1 TAB PO EVERY 4-6 HOURS PRN for MAYDA N-MODERATE (5-7), (Reported) Polyethylene Glycol 3350 17 Gm Powd.pack, 17 GM PO DAILY PRN for CONSTIPATION- 1ST LINE, (Reported) Polyvinyl Alcohol/Povidone 15 Ml Drops, 2 DROPS OU Q4H PRN for DRY EYES, (Reported) Prasugrel HCl 10 Mg Tablet, 10 MG PO MoWe, (Reported) Primidone 250 Mg Tablet, 250 MG PO TID, (Reported) Sennosides/Docusate Sodium 1 Each Tablet, 1 EACH PO DAILY PRN for CONSTIPATION- 6TH LINE, (Reported) Solifenacin Succinate 10 Mg Tablet, 10 MG PO 1600, (Reported) Venlafaxine HCl 150 Mg Cap.er.24h, 150 MG PO DAILY, (Reported) Warfarin Sodium 4 Mg Tablet, 4 MG PO TuTh, (Reported) TAKES 4MG ON TUE,THUR TAKES 2MG ( OF A 4MG TAB) THE OTHER DAY Warfarin Sodium 4 Mg Tablet, 2 MG PO Jessica, (Reported) TAKES 4MG ON TUE,THUR TAKES 2MG ( OF A 4MG TAB) ON THE OTHER DAYS Patient Home Medication List Home Medication List Reviewed: Yes Review of Systems Review of Systems Constitutional: No chills, No diaphoresis, No fever Eyes: Denies Blindness, Denies Blurred Vision Ears, Nose, Mouth, Throat: denies ear pain, denies ear discharge Respiratory: No cough, No phlegm, No short of breath Cardiovascular: No chest pain, No edema Gastrointestinal: No abdominal pain, No nausea, No vomiting Genitourinary: No discharge, No dysuria Musculoskeletal: No back pain, No joint pain All Other Systems Reviewed Negative Unless Noted: Yes Past Yygstig-Tuadse-Pjcnfc Hx Patient Social History Alcohol Use: Denies Use Smoking Status: Former Smoker Type Used: Cigarettes Former Smoker, Quit: May 18, 1980 2nd Hand Smoke Exposure: No Recent Hopitalizations: No Immunizations Up To Date Tetanus Booster (TDap): Less than 5yrs PED Vaccines UTD: Yes Date of Pneumonia Vaccine: Feb 14, 2017 Date of Influenza Vaccine: Jan 14, 2019 Seasonal Allergies Seasonal Allergies: No Past Medical History Surgeries: Yes (LAD STENTS PLACED NOVEMBER 2018) Cardiac, Coronary Stent, Eye Surgery, Orthopedic Respiratory: Yes Asthma, Sleep Apnea Currently Using CPAP: Yes (wears cpap at night with no o2, brought her machine and her meds with her) Currently Using BIPAP: No Cardiac: Yes Atrial Fibrillation, Chronic Edema/Swelling, Coronary Artery Disease, Deep Vein Thrombosis, Heart Attack, High Cholesterol, Hypertension Neurological: Yes Neuropathy 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 Disorders: Yes Female 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 Disorders: Denies MARKETING LEAD History: Menopausal Sexually Transmitted Disease: No HIV/AIDS: No Genitourinary: Yes UTI-Chronic Gastrointestinal: Yes Gastroesophageal Reflux, Chronic Constipation Musculoskeletal: Yes (Charcot foot) Degenerate Disk Disease, Arthritis, Chronic Back Pain Endocrine: Yes (MORBID OBESITY) Diabetes, Insulin dep HEENT: Yes Cataract Loss of Vision: Bilateral Hearing Impairment: Denies Cancer: No Uterine Did You Recieve Any Treatments: Yes What Type of Treatment Did You: Surgical Intervention Psychosocial: Yes Anxiety, Depression Integumentary: No Blood Disorders: No Adverse Reaction/Blood Tranf: No Family Medical History Cardiovascular disease 19 FATHER 19 MOTHER Colon cancer 19 FATHER 19 MOTHER Diabetes mellitus 19 MOTHER G8 BROTHER G8 SISTER Myocardial infarction 19 FATHER No Pertinent Family Hx Physical Exam Vital Signs Vital Signs - First Documented Capillary Refill : Height, Weight, BMI Height: 5'10.50" Weight: 302lbs. 0.0oz. 136.424506fu; 41.00 BMI Method:Stated General Appearance: WD/WN, no apparent distress HEENT: PERRL/EOMI (3 mm reactive symmetric), normal ENT inspection (Negative raccoon eyes), TMs normal (Negative for hemotympanum or mason sign), pharynx normal, other (I attest that I saw this patient alongside the medical student and agree with his documented history, physical exam and review of systems except as otherwise noted. 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 as tested, no motor/sensory deficits, alert, normal mood/affect, oriented x 3 Skin: normal color, warm/dry Heather Coma Score Best Eye Response: (4) Open Spontaneously Best Verbal Response: (5) Oriented Best Motor Response: (6) Obeys Commands [place] Total: 15 Progress/Results/Core Measures Results/Orders Lab Results Laboratory Tests Test 09/16/20 06:15 09/16/20 06:57 Range/Units White Blood Count 8.0 4.3-11.0 10^3/uL Red Blood Count 4.06 3.80-5.11 10^6/uL Hemoglobin 11.8 11.5-16.0 g/dL Hematocrit 37 35-52 % Mean Corpuscular Volume 90 80-99 fL Mean Corpuscular Hemoglobin 29 25-34 pg Mean Corpuscular Hemoglobin Concent 32 32-36 g/dL Red Cell Distribution Width 14.7 H 10.0-14.5 % Platelet Count 265 130-400 10^3/uL Mean Platelet Volume 9.9 9.0-12.2 fL Immature Granulocyte % (Auto) 0 % Neutrophils (%) (Auto) 49 42-75 % Lymphocytes (%) (Auto) 40 12-44 % Monocytes (%) (Auto) 8 0-12 % Eosinophils (%) (Auto) 4 0-10 % Basophils (%) (Auto) 0 0-10 % Neutrophils # (Auto) 3.9 1.8-7.8 10^3/uL Lymphocytes # (Auto) 3.2 1.0-4.0 10^3/uL Monocytes # (Auto) 0.6 0.0-1.0 10^3/uL Eosinophils # (Auto) 0.3 0.0-0.3 10^3/uL Basophils # (Auto) 0.0 0.0-0.1 10^3/uL Immature Granulocyte # (Auto) 0.0 0.0-0.1 10^3/uL Prothrombin Time 32.4 H 12.2-14.7 SEC INR Comment 3.1 H 0.8-1.4 Sodium Level 137 135-145 MMOL/L Potassium Level 4.9 3.6-5.0 MMOL/L Chloride Level 100 98-107 MMOL/L Carbon Dioxide Level 25 21-32 MMOL/L Anion Gap 12 5-14 MMOL/L Blood Urea Nitrogen 19 H 7-18 MG/DL Creatinine 0.83 0.60-1.30 MG/DL Estimat Glomerular Filtration Rate > 60 BUN/Creatinine Ratio 23 Glucose Level 157 H 70-105 MG/DL Calcium Level 8.9 8.5-10.1 MG/DL Corrected Calcium 9.1 8.5-10.1 MG/DL Total Bilirubin < 0.1 L 0.1-1.0 MG/DL Aspartate Amino Transf (AST/SGOT) 31 5-34 U/L Alanine Aminotransferase (ALT/SGPT) 37 0-55 U/L Alkaline Phosphatase 168 H 40-136 U/L Total Protein 7.6 6.4-8.2 GM/DL Albumin 3.7 3.2-4.5 GM/DL Urine Color YELLOW Urine Clarity SL CLOUDY Urine pH 6.0 5-9 Urine Specific [place] 1.010 L 1.016-1.022 Urine Protein NEGATIVE NEGATIVE Urine Glucose (UA) NEGATIVE NEGATIVE Urine Ketones NEGATIVE NEGATIVE Urine Nitrite POSITIVE H NEGATIVE Urine Bilirubin NEGATIVE NEGATIVE Urine Urobilinogen 0.2 < = 1.0 MG/DL Urine Leukocyte Esterase 3+ H NEGATIVE Urine RBC (Auto) TRACE-I NEGATIVE Urine RBC 0-2 /HPF Urine WBC >100 H /HPF Urine Squamous Epithelial Cells 2-5 /HPF Urine Crystals NONE /LPF Urine Bacteria MODERATE H /HPF Urine Casts NONE /LPF Urine Mucus NEGATIVE /LPF Urine Culture Indicated YES My Orders Orders - SIVAKUMAR CONTRERAS Ct Head/Face/Cervical Wo (09/16/20 06:01) Knee, Right, 3 Views (09/16/20 06:01) Pelvis With Left Hip 2-3 Views (09/16/20 06:01) Fentanyl Inj (Sublimaze Injection) (09/16/20 06:15) Cbc With Automated Diff (09/16/20 06:01) Comprehensive Metabolic Panel (09/16/20 06:01) Protime With Inr (09/16/20 06:01) Ua Culture If Indicated (09/16/20 06:01) Urine Culture (09/16/20 06:57) Hand, 3 Views, Bilateral (09/16/20 06:01) Forearm, Left, 2 Views (09/16/20 07:37) Medications Given in ED Current Medications Medications Dose Ordered Sig/Ashley Route Start Time Stop Time Status Last Admin Dose Admin Fentanyl Citrate 50 mcg ONCE ONCE IVP 09/16/20 06:15 09/16/20 06:16 DC 09/16/20 08:11 50 MCG Vital Signs/I&O 09/16/20 09/16/20 05:52 05:52 Temp 36.0 36.0 Pulse 79 79 Resp 18 18 B/P (MAP) 140/86 (104) 140/86 (104) Pulse Ox 97 O2 Delivery Room Air Room Air Progress Progress Note #1: Time: 06:14 Progress Note Plan to CT scan the head face and cervical and x-ray bilateral hands and right knee and left hip. [facility], [place] NAME: SHAEALFREDO Miller [facility] REC#: [id number] PT STATUS: REG ER : 1950 PHYSICIAN: SIVAKUMAR CONTRERAS MD ADMIT DATE: 09/16/20/ER Draft Date of Exam:09/16/20 CT HEAD/FACE/CERVICAL WO PROCEDURE: CT head, face, and cervical spine without contrast. TECHNIQUE: Multiple contiguous axial images were obtained through the head, neck, and facial bones without the use of intravenous contrast. Sagittal and coronal reformations through the cervical spine and facial bones were also performed. Auto Exposure Controls were utilized during the CT exam to meet ALARA standards for radiation dose reduction. INDICATION: Trauma, fall with facial swelling COMPARISON: CT head of 12/20/2019. FINDINGS: Head: No intracranial hyperdense hemorrhage or space-occupying mass. No hydrocephalus or midline shift. Nix-white matter differentiation is well-preserved. Basilar cisterns are widely patent. Pituitary and pineal regions are unremarkable. No skull fracture. Large midfrontal scalp hematoma. No fracture of the underlying outer table of the frontal sinuses. Small air-fluid levels in bilateral maxillary sinuses likely due to acute sinusitis. Mastoid air cells are clear. Face: No fracture in the osseous nasal septum or nasal bones. Anterior nasal spine is intact. No fracture in the orbits. Maxillary sinus mart and zygomatic arches are intact. No fracture in the pterygoid plates. Temporomandibular joints are normal alignment. No mandibular fracture. Globes are symmetric without rupture. Prior lens surgery. No retrobulbar hematoma. Cervical spine: No acute fracture or traumatic malalignment in the cervical spine. Multilevel degenerative facet osteoarthritis and uncovertebral joint hypertrophy. No high-grade spinal stenosis. Very degrees of mild to moderate neuroforaminal narrowing due to the degenerative changes. Airways widely patent. No cervical lymphadenopathy. Lung apices are clear. IMPRESSION: 1. No acute intracranial hemorrhage or skull fracture. Mid frontal scalp hematoma. 2. No fracture in the mid face or mandible. 3. No acute fracture or traumatic malalignment cervical spine. 4. Air-fluid level in the bilateral maxillary sinuses are likely due to acute sinusitis. Dictated on workstation # [id number] Dict: 09/16/20 0738 Trans: 09/16/20 0746 [facility] [id number] Interpreted by: CINDY KIM MD Electronically signed by: Progress Note #2: Time: 08:00 Progress Note C-collar cleared radiographically and clinically. Diagnostic Imaging Diagonstic Imaging: CT Plain Films/CT/US/NM/MRI: facial bones, c-spine, head Comments Possible blood products layering in the sinuses versus sinusitis. No acute calvarial fracture no midline shift tumor or hemorrhage. No C-spine fracture or malalignment. Negative for facial fracture. Hematomas noted. Reviewed: Reviewed by Mn Diagonstic Imaging: Xray Plain Films/CT/US/NM/MRI: forearm (left) Comments [facility], [place] NAME: ALFREDO KAUFMAN [facility] REC#: [id number] PT STATUS: REG ER : 1950 PHYSICIAN: SIVAKUMAR CONTRERAS MD ADMIT DATE: 09/16/20/ER Draft Date of Exam:09/16/20 FOREARM, LEFT, 2 VIEWS Indication: Fall pain Findings: 2 view forearm showed no fracture or dislocation. Impression: No acute appearing abnormality. Dictated on workstation # [id number] Dict: 09/16/20 0750 Trans: 09/16/20752 [place] [id number] Interpreted by: FUAD CHICAS Electronically signed by: Reviewed: Reviewed by Mn Diagonstic Imaging: Xray Plain Films/CT/US/NM/MRI: pelvis, hip (Left) Comments [facility] [place] [place] NAME: ALFREDO KAUFMAN [facility] REC#: [id number] PT STATUS: REG ER : 1950 PHYSICIAN: SIVAKUMAR CONTRERAS MD ADMIT DATE: 09/16/20/ER Draft Date of Exam:09/16/20 PELVIS WITH LEFT HIP 2-3 VIEWS INDICATION: A fall, pain FINDINGS: AP pelvis and two-view left hip performed. Arthritic changes to the bilateral hips. There is a IUD device present. The uterine fundus deviated to the right. No symphyseal or SI joint diastases. No bony avulsion. No fracture pattern. IMPRESSION: No acute posttraumatic sequelae identified. Dictated on workstation # [id number] Dict: 09/16/20 0749 Trans: 09/16/20750 [place] [id number] Interpreted by: FUAD CHICAS Electronically signed by: Reviewed: Reviewed by Mn Diagonstic Imaging: Xray Plain Films/CT/US/NM/MRI: knee (Right) Comments [facility] [place], [place] NAME: ALFREDO KAUFMAN [facility] REC#: [id number] PT STATUS: REG ER : 1950 PHYSICIAN: SIVAKUMAR CONTRERAS MD ADMIT DATE: 09/16/20/ER Draft Date of Exam:09/16/20 KNEE, RIGHT, 3 VIEWS INDICATION: Fall FINDINGS: Two view knee showed severe tricompartmental osteoarthritis with no appreciable fracture. IMPRESSION: Chronic degenerative changes. No apparent fracture. Dictated on workstation # [id number] Dict: 09/16/20 075 Trans: 09/16/20752 [place] [id number] Interpreted by: FUAD CHICAS Electronically signed by: Reviewed: Reviewed by Me Diagonstic Imaging: Xray Plain Films/CT/US/NM/MRI: hand (Bilateral) Comments [facility] [place] NAME: ALFREDO KAUFMAN [facility] REC#: [id number] PT STATUS: REG ER : 1950 PHYSICIAN: SIVAKUMAR CONTRERAS MD ADMIT DATE: 09/16/20/ER Draft Date of Exam:09/16/20 HAND, 3 VIEWS, BILATERAL INDICATION: Fall pain FINDINGS: Three-view bilateral hand performed. There is severe arthritic changes at the 1st CMC greater left than right. No fracture identified. IMPRESSION: Degenerative changes but no fractures apparent. Dictated on workstation # [id number] Dict: 09/16/20 075 Trans: 09/16/20 08 [place] [id number] Interpreted by: FUAD CHICAS Electronically signed by: Reviewed: Reviewed by Me Departure Impression Primary Impression: Fall Qualified Codes: W19.XXXA - Unspecified fall, initial encounter Additional Impressions: Hematoma Abrasion UTI (urinary tract infection) Qualified Codes: N30.01 - Acute cystitis with hematuria Disposition: HOME, SELF-CARE Condition: Stable Departure-Patient Inst. Decision time for Depature: 09:15 Referrals: DELIA TRIANA MD (PCP/Family) Primary Care Physician Patient Instructions: Urinary Tract Infection, Adult ED, Contusion (DC) Add. Discharge Instructions: Ice applied to your hematomas for 20 minutes every 2 hours as needed for swelling and pain. Tylenol 1000 mg every 8 hours as necessary for pain. Cephalexin 500 mg twice a day with food for the next week for bladder infection. Follow-up with your primary care doctor. Scripts Cephalexin (Cephalexin) 500 Mg Tablet 500 MG PO BID for 7 Days, #14 TAB 0 Refills Prov: SIVAKUMAR CONTRERAS 09/16/20 SIVAKUMAR CONTRERAS September 16, 2020 06:13
[2020-09-16] MEDS ORDERED: fentaNYL INJ 100 MCG/2 ML AMP IVP ONE (06:15)
[2020-09-16 06:23] LABS: BASOPHILS % (AUTO) 0 % (0-10); EOSINOPHILS # (AUTO) 0.3 10^3/uL (0.0-0.3); EOSINOPHILS % (AUTO) 4 % (0-10); HEMATOCRIT 37 % (35-52); HEMOGLOBIN 11.8 g/dL (11.5-16.0); LYMPHOCYTES # (AUTO) 3.2 10^3/uL (1.0-4.0); LYMPHOCYTES % (AUTO) 40 % (12-44); MEAN CORPUSCULAR HEMOGLOBIN 29 pg (25-34); MEAN CORPUSCULAR HGB CONC 32 g/dL (32-36); MEAN CORPUSCULAR VOLUME 90 fL (80-99); MEAN PLATELET VOLUME 9.9 fL (9.0-12.2); MONOCYTES # (AUTO) 0.6 10^3/uL (0.0-1.0); MONOCYTES % (AUTO) 8 % (0-12); NEUTROPHILS # (AUTO) 3.9 10^3/uL (1.8-7.8); NEUTROPHILS % (AUTO) 49 % (42-75); PLATELET COUNT 265 10^3/uL (130-400)
[2020-09-16 06:34] LABS: ALBUMIN 3.7 GM/DL (3.2-4.5); CHLORIDE 100 MMOL/L (98-107); INR 3.1 (0.8-1.4); POTASSIUM 4.9 MMOL/L (3.6-5.0); PROTHROMBIN TIME PATIENT 32.4 SEC (12.2-14.7); SODIUM 137 MMOL/L (135-145)
[2020-09-16 06:35] LABS: CALCIUM 8.9 MG/DL (8.5-10.1)
[2020-09-16 06:36] LABS: GLUCOSE 157 MG/DL (70-105); TOTAL PROTEIN 7.6 GM/DL (6.4-8.2)
[2020-09-16 06:37] LABS: CARBON DIOXIDE 25 MMOL/L (21-32)
[2020-09-16 06:38] LABS: BILIRUBIN,TOTAL < 0.1 MG/DL (0.1-1.0)
[2020-09-16 06:40] LABS: ALKALINE PHOSPHATASE 168 U/L (40-136); CREATININE SERUM 0.83 MG/DL (0.60-1.30); GFR ESTIMATED > 60
[2020-09-16 06:41] LABS: BUN/CREATININE RATIO 23
[2020-09-16 06:43] LABS: ALANINE AMINOTRANSFERASE 37 U/L (0-55)
[2020-09-16 07:03] LABS: BILIRUBIN,URINE NEGATIVE (NEGATIVE); CLARITY,URINE SL CLOUDY; COLOR,URINE YELLOW; GLUCOSE, URINE (UA) NEGATIVE (NEGATIVE); KETONES,URINE NEGATIVE (NEGATIVE); LEUKOCYTE ESTERASE ,URINE 3+ (NEGATIVE); NITRITE,URINE POSITIVE (NEGATIVE); PROTEIN,URINE NEGATIVE (NEGATIVE)
[2020-09-16 07:19] LABS: BACTERIA,URINE MODERATE /HPF; RBC,URINE 0-2 /HPF; WBC,URINE >100 /HPF
--- NOTE | 2020-09-16 07:46 | Diagnostic Imaging Report ---
PROCEDURE: CT head, face, and cervical spine without contrast. TECHNIQUE: Multiple contiguous axial images were obtained through the head, neck, and facial bones without the use of intravenous contrast. Sagittal and coronal reformations through the cervical spine and facial bones were also performed. Auto Exposure Controls were utilized during the CT exam to meet ALARA standards for radiation dose reduction. INDICATION: Trauma, fall with facial swelling COMPARISON: CT head of 12/20/2019. FINDINGS: Head: No intracranial hyperdense hemorrhage or space-occupying mass. No hydrocephalus or midline shift. Nix-white matter differentiation is well-preserved. Basilar cisterns are widely patent. Pituitary and pineal regions are unremarkable. No skull fracture. Large midfrontal scalp hematoma. No fracture of the underlying outer table of the frontal sinuses. Small air-fluid levels in bilateral maxillary sinuses likely due to acute sinusitis. Mastoid air cells are clear. Face: No fracture in the osseous nasal septum or nasal bones. Anterior nasal spine is intact. No fracture in the orbits. Maxillary sinus mart and zygomatic arches are intact. No fracture in the pterygoid plates. Temporomandibular joints are normal alignment. No mandibular fracture. Globes are symmetric without rupture. Prior lens surgery. No retrobulbar hematoma. Cervical spine: No acute fracture or traumatic malalignment in the cervical spine. Multilevel degenerative facet osteoarthritis and uncovertebral joint hypertrophy. No high-grade spinal stenosis. Very degrees of mild to moderate neuroforaminal narrowing due to the degenerative changes. Airways widely patent. No cervical lymphadenopathy. Lung apices are clear. IMPRESSION: 1. No acute intracranial hemorrhage or skull fracture. Mid frontal scalp hematoma. 2. No fracture in the mid face or mandible. 3. No acute fracture or traumatic malalignment cervical spine. 4. Air-fluid level in the bilateral maxillary sinuses are likely due to acute sinusitis. Dictated by: Dictated on workstation # [id number]
--- NOTE | 2020-09-16 07:51 | Diagnostic Imaging Report ---
INDICATION: A fall, pain FINDINGS: AP pelvis and two-view left hip performed. Arthritic changes to the bilateral hips. There is a IUD device present. The uterine fundus deviated to the right. No symphyseal or SI joint diastases. No bony avulsion. No fracture pattern. IMPRESSION: No acute posttraumatic sequelae identified. Dictated by: Dictated on workstation # [id number]
--- NOTE | 2020-09-16 07:53 | Diagnostic Imaging Report ---
INDICATION: Fall FINDINGS: Two view knee showed severe tricompartmental osteoarthritis with no appreciable fracture. IMPRESSION: Chronic degenerative changes. No apparent fracture. Dictated by: Dictated on workstation # [id number]
--- NOTE | 2020-09-16 07:53 | Diagnostic Imaging Report ---
Indication: Fall pain Findings: 2 view forearm showed no fracture or dislocation. Impression: No acute appearing abnormality. Dictated by: Dictated on workstation # [id number]
--- NOTE | 2020-09-16 08:01 | Diagnostic Imaging Report ---
INDICATION: Fall pain FINDINGS: Three-view bilateral hand performed. There is severe arthritic changes at the 1st CMC greater left than right. No fracture identified. IMPRESSION: Degenerative changes but no fractures apparent. Dictated by: Dictated on workstation # [id number]
[2020-09-16] MEDS ORDERED: CEPH500T PO (09:17)
[2020-09-16 09:33] VITALS: BP 127/67
== END 2020-09-16 09:33 | disposition home or self-care (01) ==
LOC: EDUNIT# 05:52 → ER 05:54
DX: S00.83XA Contusion of other part of head, initial encounter (principal); N39.0 Urinary tract infection, site not specified; J45.909 Unspecified asthma, uncomplicated; I25.2 Old myocardial infarction; I10 Essential (primary) hypertension; E78.00 Pure hypercholesterolemia, unspecified; I25.10 Atherosclerotic heart disease of native coronary artery without angina pectoris; I48.91 Unspecified atrial fibrillation; M54.9 Dorsalgia, unspecified; G89.29 Other chronic pain; K21.9 Gastro-esophageal reflux disease without esophagitis; F32.9 Major depressive disorder, single episode, unspecified; F41.9 Anxiety disorder, unspecified; R40.2410 Glasgow coma scale score 13-15, unspecified time; Z88.8 Allergy status to other drugs, medicaments and biological substances; Z87.891 Personal history of nicotine dependence; Z86.718 Personal history of other venous thrombosis and embolism; Z79.01 Long term (current) use of anticoagulants; Z79.82 Long term (current) use of aspirin; Z79.899 Other long term (current) drug therapy; Z79.891 Long term (current) use of opiate analgesic; W01.0XXA Fall on same level from slipping, tripping and stumbling without subsequent striking against object, initial encounter
CPT/HCPCS: 36415; 70450; 70486; 72125; 73090; 73562; 80053; 81000; 85025; 85610; 87077; 87088; 87186

== ENCOUNTER 2020-12-15 05:44 | Outpatient (CLI) | payer MEDICARE, MEDICAID ==
[~2020-12-15] VITALS: Ht 177.8 cm; Wt 129.5 kg
[~2020-12-15 05:44] MED LIST changes: +CEPH500T PO; -ETOD500T PO; +ETOD500T4 PO
== END 2020-12-15 10:22 | disposition home or self-care (01) ==
LOC: PREOP 05:44
PROVIDERS: ATTEND Specialist
DX: Z01.818 Encounter for other preprocedural examination (principal)

== ENCOUNTER 2020-12-19 09:15 | Day surgery (SDC) | payer MEDICARE, MEDICAID ==
[~2020-12-19] VITALS: Ht 177.8 cm; Wt 129.5 kg
[2020-12-19] MEDS: TETRACAINE 0.5% OPHTH SOLN 4 ML BTL (SINGLE DOSE ONLY) OU PRN ×2 (09:43→09:46)
[2020-12-19] MEDS ORDERED: PHENYLEPHRINE 10% OPHTH (NEO-SYN) 5 ML BTL OU PRN (09:45)
[2020-12-19] MEDS ORDERED: TROPICAMIDE 1% OPH SOLN (MYDRIACYL) 15 ML BTL OU PRN (09:45)
[2020-12-19 09:48] VITALS: BP 120/73
--- NOTE | 2020-12-19 10:03 | Ophthalmologist Pre-Op Note ---
Pre-Operative Progress Note H&P Reviewed The H&P was reviewed, patient examined and no changes noted. Date H&P Reviewed: Dec 19, 2020 Time H&P Reviewed: 09:55 Pre-Op Dx Secondary Cataract, Right Eye MOE BUCHANAN MD Dec 19, 2020 10:03
--- NOTE | 2020-12-19 10:04 | Ophthalmology Operative Report ---
YAG Capsulotomy PREOPERATIVE DIAGNOSIS: Secondary Cataract Right Eye POSTOPERATIVE DIAGNOSIS: Secondary Cataract Right Eye PROCEDURE: YAG Capsulotomy, right eye SURGEON: Adam Buchanan ANESTHESIA: Topical anesthesia COMPLICATIONS: None ESTIMATED BLOOD LOSS: Minimal DESCRIPTION OF PROCEDURE: After proper informed consent was obtained, the patient's, a 70 female, right eye received one drop of Tropicamide and one drop of Tetracaine. The patient was then placed at the YAG laser and using a power of [3.8 ] millijoules and [17 ] bursts were used to fashion a central capsulotomy. The patient tolerated the procedure well without complications. ADAM BUCHANAN MD Dec 19, 2020 10:04
== END 2020-12-19 10:00 | disposition home or self-care (01) ==
LOC: SDC 09:15
PROVIDERS: ATTEND Specialist
DX: E11.36 Type 2 diabetes mellitus with diabetic cataract (principal); H26.491 Other secondary cataract, right eye; J45.909 Unspecified asthma, uncomplicated; K59.09 Other constipation; I25.2 Old myocardial infarction; I51.9 Heart disease, unspecified; K59.00 Constipation, unspecified; M19.90 Unspecified osteoarthritis, unspecified site; F32.9 Major depressive disorder, single episode, unspecified; F41.9 Anxiety disorder, unspecified; Z87.891 Personal history of nicotine dependence; Z83.3 Family history of diabetes mellitus; Z79.899 Other long term (current) drug therapy

== ENCOUNTER → 2021-01-14 | Outpatient (CLI) | payer MEDICARE, MEDICAID ==
[~2021-01-14] VITALS: Ht 177 cm; Wt 130.0 kg
[~2021-01-14] MED LIST changes: +CATHETER FLUSH 10 ML SYR IV PRN; +REGADENOSON 0.4 MG/5 ML SYR (LEXISCAN) IV ONE
[2021-01-14 09:07] VITALS: BP 160/63
[2021-01-14 09:11] VITALS: BP 115/49
--- NOTE | 2021-01-14 14:08 | Cardiology Stress Test Report ---
Stress Test Report Date of Procedure/Referring: Date of Procedure: Jan 14, 2021 PCP Charly Calvert MD Admitting Physician Martin Goode MD Indications: HTN Baseline Heart Rate: 90 Baseline Blood Pressure: Blood Pressure Systolic: 115 Blood Pressure Diastolic: 49 Baseline Vitals Vital Signs Date Time Temp Pulse Resp B/P (MAP) Pulse Ox O2 Delivery O2 Flow Rate FiO2 01/14/21 09:07 77 17 160/63 (95) 98 Room Air Baseline EKG: Baseline EKG: NSR Summary After explaining the procedure to the patient, she signed a consent and then brought to the stress nuclear laboratory. Patient received 0.4 mg Lexiscan for stress test, ECG, heart rate and blood pressure were monitored continuously. Resting and stress dose of radio tracer w ere injected, imaging was acquired and reviewed in short axis, horizontal long axis and vertical long axis views. TID: 1.02 SSS: 4 SDS: 1 EF: 1.02 1. Patient tolerated Lexiscan well 2. Breast attenuation with mild decreased uptake at the base of the anteroseptum with no reversibility, no significant ischemia or infarction on SPECT images 3. Normal left ventricular size, EF 62% CHARLY CALVERT MD Jan 14, 2021 14:08
== END ==
LOC: CARD 07:46
PROVIDERS: ATTEND Internal Medicine Cardiovascular Disease
DX: I25.10 Atherosclerotic heart disease of native coronary artery without angina pectoris (principal); I10 Essential (primary) hypertension
CPT/HCPCS: 78452; 93017; A9502

== ENCOUNTER 2021-03-24 16:21 | Emergency (ER) | payer MEDICARE, MEDICAID ==
[~2021-03-24] VITALS: Ht 177.8 cm; Wt 127.0 kg
[~2021-03-24 16:21] MED LIST changes: -CATHETER FLUSH 10 ML SYR IV PRN; -REGADENOSON 0.4 MG/5 ML SYR (LEXISCAN) IV ONE
--- NOTE | 2021-03-24 17:20 | ED Dyspnea ---
General Chief Complaint: Respiratory Problems Stated Complaint: COUGH, SOB Nursing Triage Note: HEAD COLD STARTED LAST TUESDAY. TODAY SOB FEELS LIKE "LUNGS ARE HURTING FROM COUGHING UP PHLEM" Source of Information: Patient Exam Limitations: No Limitations History of Present Illness Date Seen by Provider: Mar 24, 2021 Time Seen by Provider: 17:18 Initial Comments Patient is a 70-year-old female who presents ED with URI symptoms, shortness of breath and cough. She states symptoms started last Tuesday with nasal congestion, sinus pressure, sore throat. She states she tested negative for Covid. Patient has started develop weakness, fatigue with a wet productive cough with greenish sputum production. Concerning for pneumonia. She reports feeling weak with some mild chest tightness and wheezing. History of asthma. History of coronary artery disease. Patient states her caregiver tested positive for Covid. She has been using her inhaler at home without much improvement. Refused breathing treatment here secondary to history of A. fib. Not currently on a blood thinner. She reports chronic leg swelling without any specific leg pain, redness or bruising. Allergies and Home Medications Allergies Coded Allergies: black cohosh (Verified Allergy, Unknown, 08/07/15) glyburide (Verified Allergy, Unknown, 08/07/15) isosorbide (Verified Allergy, Unknown, 08/07/15) Uncoded Allergies: ARCABOSE (Allergy, Mild, Abdominal Pain, 10/01/19) GAS PAINS Patient Home Medication List Home Medication List Reviewed: Yes Acetaminophen (Acetaminophen) 500 Mg Tablet, 1,000 MG PO DAILY PRN, (Reported) Entered as Reported by: CORI CHRISTINA on 06/14/19 0736 Amlodipine Besylate (Amlodipine Besylate) 5 Mg Tablet, 5 MG PO DAILY, (Reported) Entered as Reported by: PATRIC MCMANUS on 02/06/20 1619 Amoxicillin/Potassium Clav (Augmentin 875-125 Tablet) 1 Each Tablet, 1 EACH PO BID Prescribed by: HIMANSHU MCCULLOUGH on 03/24/21 1845 Aspirin (Aspirin EC) 81 Mg Tablet.dr, 81 MG PO DAILY, (Reported) Entered as Reported by: ANGELY MATOS on 05/21/19 0914 Atorvastatin Calcium (Atorvastatin Calcium) 80 Mg Tablet, 80 MG PO HS, (Reported) Entered as Reported by: ANGELY MATOS on 12/21/18 0855 Calcium Carbonate/Vitamin D3 (Calcium 500 + Vit D Caplet) 1 Each Tablet, 1 TAB PO BID, (Reported) Entered as Reported by: ANGELY MATOS on 08/08/15 0857 Cetirizine HCl (Zyrtec) 10 Mg Tablet, 10 MG PO DAILY, (Reported) Entered as Reported by: ANGELY MATOS on 11/30/18 0959 Cholecalciferol (Vitamin D3) (Vitamin D3) 25 Mcg Tablet, 25 MCG PO 1200, (Reported) Entered as Reported by: PATRIC MCMANUS on 02/06/20 1619 Cyclobenzaprine HCl (Cyclobenzaprine HCl) 10 Mg Tablet, 10 MG PO TID, (Reported) Entered as Reported by: ANGELY MATOS on 03/07/19 1204 Cyclosporine (Restasis) 1 Each Droperette, 1 DROP OU BID, (Reported) Entered as Reported by: CORI CHRISTINA on 06/14/19 0754 Diltiazem HCl (Diltiazem 24Hr ER) 360 Mg Cap.er.24h, 360 MG PO DAILY, (Reported) Entered as Reported by: PATRIC MCMANUS on 02/06/20 1619 Dofetilide (Dofetilide) 250 Mcg Capsule, 250 MCG PO BID, (Reported) Entered as Reported by: PATRIC MCMANUS on 02/06/20 1619 Famotidine (Pepcid) 20 Mg Tablet, 20 MG PO DAILY PRN for HEARTBURN, (Reported) Entered as Reported by: ANGELY MATOS on 05/21/19 0914 Ferrous Sulfate (Ferrous Sulfate) 325 Mg Tablet, 325 MG PO 1800, (Reported) Entered as Reported by: ANGELY MATOS on 11/30/18 0959 Fluticasone/Vilanterol (Breo Ellipta 200-25 Mcg INH) 1 Each Blst.w.dev, 1 EACH IH DAILY, (Reported) Entered as Reported by: CORI CHRISTINA on 06/14/19 0733 Gabapentin (Gabapentin) 800 Mg Tablet, 800 MG PO QID, (Reported) Entered as Reported by: ANGELY MATOS on 11/30/18 0959 Glucosam/Chond/Hyalu/Cf Borate (Move Free Joint Health Tablet) 1 Each Tablet, 1 EACH PO BID, (Reported) Entered as Reported by: PATRIC MCMANUS on 02/06/20 1619 Hydroxyzine HCl (Hydroxyzine HCl) 10 Mg Tablet, 10 MG PO TID, (Reported) Entered as Reported by: CORI CHRISTINA on 06/14/19 0738 Imipramine HCl (Imipramine HCl) 50 Mg Tablet, 50 MG PO HS, (Reported) Entered as Reported by: ANGELY MATOS on 11/30/18 0959 Insulin Aspart (Novolog Flexpen) 300 Units/3 Ml Solution, 5-6 UNITS SQ TIDAC, (Reported) Entered as Reported by: ANGELY MATOS on 08/08/15 0857 Insulin Glargine,Hum.rec.anlog (Lantus) 100 Unit/1 Ml Vial, 18 UNIT SQ HS, (Reported) Entered as Reported by: ANGELY MATOS on 08/08/15 0857 Lactobacillus Rhamnosus GG (Culturelle) 1 Each Capsule, 1 CAP PO DAILY PRN for WHILE TAKING ANTIBIOTICS, (Reported) Entered as Reported by: ANGELY MATOS on 05/21/19 0914 Lisinopril (Lisinopril) 20 Mg Tablet, 20 MG PO DAILY, (Reported) Entered as Reported by: ANGELY MATOS on 11/30/18 0959 Metformin HCl (Metformin HCl) 1,000 Mg Tablet, 1,000 MG PO BID WITH MEALS, (Reported) Entered as Reported by: CORI CHRISTINA on 06/14/19 0730 Metoprolol Succinate (Metoprolol Succinate) 50 Mg Tab.er.24h, 50 MG PO DAILY, (Reported) Entered as Reported by: PATRIC MCMANUS on 02/06/20 1619 Mineral Oil/Petrolatum,White (Refresh Lacri-Lube Ointment) 3.5 Gm Oint...g., OU HS, (Reported) Entered as Reported by: ANGELY MATOS on 08/08/15 0857 Mirabegron (Myrbetriq) 50 Mg Tab.er.24h, 50 MG PO DAILY, (Reported) Entered as Reported by: PATRIC MCMANUS on 04/13/19 1112 Multivitamin (Multi-Vitamin Daily) 1 Each Tablet, 1 EACH PO DAILY, (Reported) Entered as Reported by: CORI CHRISTINA on 06/14/19 0742 Nitrofurantoin Macrocrystal (Nitrofurantoin) 100 Mg Capsule, 100 MG PO 1800, (Reported) Entered as Reported by: CORI CHRISTINA on 06/14/19 0741 [place] 3 Polyunsat Fatty Acids (Fish Oil 1,000 mg Capsule) 1,000 Mg Cap, 1,000 MG PO TID, (Reported) Entered as Reported by: ANGELY MATOS on 11/30/18 0959 Oxycodone HCl/Acetaminophen (Percocet 10-325 mg Tablet) 1 Each Tablet, 1 TAB PO EVERY 4-6 HOURS PRN for PAIN-MODERATE (5-7), (Reported) Entered as Reported by: ANGELY MATOS on 05/21/19 0914 Polyethylene Glycol 3350 (Miralax) 17 Gm Powd.pack, 17 GM PO DAILY PRN for CONSTIPATION-1ST LINE, (Reported) Entered as Reported by: ANGELY MATOS on 11/30/18 0959 Polyvinyl Alcohol/Povidone (Artificial Tears Drops) 15 Ml Drops, 2 DROPS OU Q4H PRN for DRY EYES, (Reported) Entered as Reported by: CORI CHRISTINA on 06/14/19 0752 Prasugrel HCl (Prasugrel HCl) 10 Mg Tablet, 10 MG PO MoWe, (Reported) Entered as Reported by: ANGELY MATOS on 12/21/18 0855 Prednisone (Prednisone) 50 Mg Tab, 50 MG PO DAILY Prescribed by: HIMANSHU MCCULLOUGH on 03/24/21 1845 Primidone (Mysoline) 250 Mg Tablet, 250 MG PO TID, (Reported) Entered as Reported by: PATRIC MCMANUS on 04/13/19 1112 Sennosides/Docusate Sodium (Senna-Docusate Sodium Tablet) 1 Each Tablet, 1 EACH PO DAILY PRN for CONSTIPATION-6TH LINE, (Reported) Entered as Reported by: CORI CHRISTINA on 06/14/19 0746 Solifenacin Succinate (Vesicare) 10 Mg Tablet, 10 MG PO 1600, (Reported) Entered as Reported by: PATRIC MCMANUS on 04/23/19 0927 Venlafaxine HCl (Venlafaxine HCl ER) 150 Mg Cap.er.24h, 150 MG PO DAILY, (Reported) Entered as Reported by: PATRIC MCMANUS on 02/06/20 1625 Warfarin Sodium (Warfarin Sodium) 4 Mg Tablet, 4 MG PO TuTh, (Reported) Entered as Reported by: ANGELY MATOS on 03/07/19 1204 Warfarin Sodium (Warfarin Sodium) 4 Mg Tablet, 2 MG PO SuMoWeFrSa, (Reported) Entered as Reported by: ANGELY MATOS on 03/07/19 1204 Review of Systems Review of Systems Constitutional: No see HPI, No chills; malaise, weakness EENTM: throat pain; No ear discharge, No hearing loss, No ear pain Respiratory: cough; No hemoptysis; short of breath; No stridor; wheezing Gastrointestinal: No abdominal pain Genitourinary: No decreased output, No discharge, No dysuria, No frequency Musculoskeletal: No back pain, No gout, No joint pain Skin: No see HPI, No change in color, No change in hair/nails Psychiatric/Neurological: Denies Anxiety, Denies Depressed Hematologic/Lymphatic: Denies See HPI, Denies Anemia Past Lbizmrw-Icdwng-Bmwclu Hx Immunizations Up To Date Tetanus Booster (TDap): Less than 5yrs PED Vaccines UTD: Yes Seasonal Allergies Seasonal Allergies: No Past Medical History Surgeries: Yes (LAD STENTS PLACED NOVEMBER 2018) Cardiac, Coronary Stent, Eye Surgery, Orthopedic Respiratory: Yes Asthma, Sleep Apnea Currently Using CPAP: Yes (wears cpap at night with no o2, brought her machine and her meds with her) Currently Using BIPAP: No Cardiac: Yes Atrial Fibrillation, Chronic Edema/Swelling, Coronary Artery Disease, Deep Vein Thrombosis, Heart Attack, High Cholesterol, Hypertension Neurological: Yes Neuropathy 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 Disorders: Yes Female 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 Disorders: Denies 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: 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 Sexually Transmitted Disease: No HIV/AIDS: No Genitourinary: Yes UTI-Chronic Gastrointestinal: Yes Gastroesophageal Reflux, Chronic Constipation Musculoskeletal: Yes (Charcot foot) Degenerate Disk Disease, Arthritis, Chronic Back Pain Endocrine: Yes (MORBID OBESITY) Diabetes, Insulin dep HEENT: Yes Cataract Loss of Vision: Bilateral Hearing Impairment: Denies Cancer: No Uterine Did You Recieve Any Treatments: Yes What Type of Treatment Did You: Surgical Intervention Psychosocial: Yes Anxiety, Depression Integumentary: No Blood Disorders: No Adverse Reaction/Blood Tranf: No Family Medical History Cardiovascular disease 19 FATHER 19 MOTHER Colon cancer 19 FATHER 19 MOTHER Diabetes mellitus 19 MOTHER G8 BROTHER G8 SISTER Myocardial infarction 19 FATHER No Pertinent Family Hx Physical Exam Vital Signs Vital Signs - First Documented 03/24/21 17:05 Temp 37.2 Pulse 85 Resp 18 B/P (MAP) 142/91 (108) Pulse Ox 95 O2 Delivery Room Air Capillary Refill : Less Than 3 Seconds Height, Weight, BMI Height: 5'10.50" Weight: 302lbs. 0.0oz. 136.504652rn; 40.00 BMI Method:Stated General Appearance: No Apparent Distress, WD/WN HEENT: PERRL/EOMI, TMs Normal, Normal ENT Inspection, Pharynx Normal Neck: Full Range of Motion, Normal Inspection Respiratory: Chest Non Tender, Lungs Clear, No Accessory Muscle Use, No Respi ratory Distress, Decreased Breath Sounds Cardiovascular: Regular Rate, Rhythm, No Edema, No Gallop, No JVD, No Murmur Gastrointestinal: Normal Bowel Sounds, No Organomegaly, No Pulsatile Mass, Non Tender Extremity: Non Tender, Swelling (Bilateral lower extremity), Other (+2 dorsalis pedis.) Neurologic/Psychiatric: Alert, Oriented x3, No Motor/Sensory Deficits, Normal Mood/Affect Skin: Normal Color, Warm/Dry Progress/Results/Core Measures Results/Orders Lab Results Laboratory Tests Test 03/24/21 17:00 03/24/21 17:15 Range/Units SARS-CoV-2 RNA (RT-PCR) Not Detected Not Detecte White Blood Count 10.3 4.3-11.0 10^3/uL Red Blood Count 4.34 3.80-5.11 10^6/uL Hemoglobin 12.6 11.5-16.0 g/dL Hematocrit 38 35-52 % Mean Corpuscular Volume 89 80-99 fL Mean Corpuscular Hemoglobin 29 25-34 pg Mean Corpuscular Hemoglobin Concent 33 32-36 g/dL Red Cell Distribution Width 14.4 10.0-14.5 % Platelet Count 260 130-400 10^3/uL Mean Platelet Volume 9.5 9.0-12.2 fL Immature Granulocyte % (Auto) 0 % Neutrophils (%) (Auto) 58 42-75 % Lymphocytes (%) (Auto) 27 12-44 % Monocytes (%) (Auto) 9 0-12 % Eosinophils (%) (Auto) 5 0-10 % Basophils (%) (Auto) 0 0-10 % Neutrophils # (Auto) 6.0 1.8-7.8 10^3/uL Lymphocytes # (Auto) 2.8 1.0-4.0 10^3/uL Monocytes # (Auto) 1.0 0.0-1.0 10^3/uL Eosinophils # (Auto) 0.5 H 0.0-0.3 10^3/uL Basophils # (Auto) 0.0 0.0-0.1 10^3/uL Immature Granulocyte # (Auto) 0.0 0.0-0.1 10^3/uL Prothrombin Time 20.0 H 12.2-14.7 SEC INR Comment 1.7 H 0.8-1.4 Activated Partial Thromboplast Time 41 H 24-35 SEC Sodium Level 140 135-145 MMOL/L Potassium Level 4.4 3.6-5.0 MMOL/L Chloride Level 102 98-107 MMOL/L Carbon Dioxide Level 25 21-32 MMOL/L Anion Gap 13 5-14 MMOL/L Blood Urea Nitrogen 13 7-18 MG/DL Creatinine 0.78 0.60-1.30 MG/DL Estimat Glomerular Filtration Rate 73 BUN/Creatinine Ratio 17 Glucose Level 172 H 70-105 MG/DL Calcium Level 9.1 8.5-10.1 MG/DL Corrected Calcium 9.3 8.5-10.1 MG/DL Magnesium Level 2.0 1.6-2.4 MG/DL Total Bilirubin 0.2 0.1-1.0 MG/DL Aspartate Amino Transf (AST/SGOT) 19 5-34 U/L Alanine Aminotransferase (ALT/SGPT) 22 0-55 U/L Alkaline Phosphatase 128 40-136 U/L Troponin I < 0.028 <0.028 NG/ML C-Reactive Protein High Sensitivity 6.97 H 0.00-0.50 MG/DL B-Type Natriuretic Peptide 72.6 <100.0 PG/ML Total Protein 7.6 6.4-8.2 GM/DL Albumin 3.7 3.2-4.5 GM/DL My Orders Orders - VIRGINIA CASTELLANOS Cbc With Automated Diff (03/24/21 17:15) Comprehensive Metabolic Panel (03/24/21 17:15) BNP (03/24/21 17:15) Hs C Reactive Protein (03/24/21 17:15) Magnesium (03/24/21 17:15) Ekg Tracing (03/24/21 17:15) Ed Iv/Invasive Line Start (03/24/21 17:15) Monitor-Rhythm Ecg Trace Only (03/24/21 17:15) Chest 1 View, Ap/Pa Only (03/24/21 17:15) Covid 19 Inhouse Test (03/24/21 17:15) Troponin I (03/24/21 17:15) Protime With Inr (03/24/21 18:25) Partial Thromboplastin Time (03/24/21 18:25) Vital Signs/I&O 03/24/21 03/24/21 03/24/21 17:05 17:05 18:56 Temp 37.2 Pulse 85 83 Resp 18 15 B/P (MAP) 142/91 (108) 134/85 Pulse Ox 95 96 O2 Delivery Room Air Room Air Room Air Blood Pressure Mean: 108 Departure Communication (Admissions) Patient presents to the ED for URI symptoms. Nasal congestion, scratchy throat, sinus pressure, cough with shortness of breath. History of asthma. She reports intermittent wheezing. No significant wheezing noted on exam. Refused breathing treatment and steroid initially. Chest x-ray was negative for pneumonia. Covid negative. Lab work was otherwise unremarkable. Denies any specific chest pain or abdominal pain. Cardiac work-up was ordered secondary to the shortness of breath. Cardiac work-up otherwise unremarkable. EKG with no acute changes from previous 2019. Patient appears nontoxic with stable vital signs. She does not require oxygen. Discussed with patient likely URI symptoms. Discussed due to the core morbidities that will discharge with Augmentin prophylactically. Patient requesting short burst steroid. Continue monitoring blood sugar if taken the steroids. She does have an inhaler at home. INR 1.7. She is scheduled to take warfarin this evening. Follow-up with your primary care physician in 2 to 3 days for evaluation. Impression Primary Impression: Upper respiratory infection, acute Disposition: HOME, SELF-CARE Condition: Stable Departure-Patient Inst. Decision time for Depature: 18:13 Referrals: DELIA TRIANA MD (PCP/Family) Primary Care Physician Patient Instructions: Cough, Adult (DC) Scripts Prednisone (Prednisone) 50 Mg Tab 50 MG PO DAILY for 5 Days, #5 TAB Prov: VIRGINIA CASTELLANOS 03/24/21 Amoxicillin/Potassium Clav (Augmentin 875-125 Tablet) 1 Each Tablet 1 EACH PO BID for 7 Days, #14 TAB Prov: VIRGINIA CASTELLANOS 03/24/21 VIRGINIA CASTELLANOS Mar 24, 2021 17:20
[2021-03-24 17:27] LABS: BASOPHILS % (AUTO) 0 % (0-10); EOSINOPHILS # (AUTO) 0.5 10^3/uL (0.0-0.3); EOSINOPHILS % (AUTO) 5 % (0-10); HEMATOCRIT 38 % (35-52); HEMOGLOBIN 12.6 g/dL (11.5-16.0); LYMPHOCYTES # (AUTO) 2.8 10^3/uL (1.0-4.0); LYMPHOCYTES % (AUTO) 27 % (12-44); MEAN CORPUSCULAR HEMOGLOBIN 29 pg (25-34); MEAN CORPUSCULAR HGB CONC 33 g/dL (32-36); MEAN CORPUSCULAR VOLUME 89 fL (80-99); MEAN PLATELET VOLUME 9.5 fL (9.0-12.2); MONOCYTES % (AUTO) 9 % (0-12); NEUTROPHILS % (AUTO) 58 % (42-75); PLATELET COUNT 260 10^3/uL (130-400); WHITE BLOOD COUNT 10.3 10^3/uL (4.3-11.0)
[2021-03-24 17:35] LABS: ALBUMIN 3.7 GM/DL (3.2-4.5); CHLORIDE 102 MMOL/L (98-107); POTASSIUM 4.4 MMOL/L (3.6-5.0); SODIUM 140 MMOL/L (135-145)
[2021-03-24 17:36] LABS: CALCIUM 9.1 MG/DL (8.5-10.1)
[2021-03-24 17:37] LABS: GLUCOSE 172 MG/DL (70-105)
[2021-03-24 17:38] LABS: TOTAL PROTEIN 7.6 GM/DL (6.4-8.2)
[2021-03-24 17:39] LABS: BILIRUBIN,TOTAL 0.2 MG/DL (0.1-1.0); CARBON DIOXIDE 25 MMOL/L (21-32)
[2021-03-24 17:41] LABS: ALKALINE PHOSPHATASE 128 U/L (40-136); CREATININE SERUM 0.78 MG/DL (0.60-1.30); GFR ESTIMATED 73
[2021-03-24 17:42] LABS: BUN/CREATININE RATIO 17
[2021-03-24 17:44] LABS: ALANINE AMINOTRANSFERASE 22 U/L (0-55)
--- NOTE | 2021-03-24 18:05 | Diagnostic Imaging Report ---
INDICATION: Shortness of breath. TIME OF EXAM: 5:48 p.m. COMPARISON: Correlation is made with prior chest 02/08/2020. FINDINGS: The heart size is normal. The pulmonary vascularity is unremarkable. The lungs are clear. No infiltrate, effusion or pneumothorax is detected. IMPRESSION: No acute cardiopulmonary process is detected. Dictated by: Dictated on workstation # [id number]
[2021-03-24 18:35] LABS: INR 1.7 (0.8-1.4)
[2021-03-24] MEDS ORDERED: AMOX-358 PO (18:45)
[2021-03-24] MEDS ORDERED: PRD50T PO (18:45)
[2021-03-24 18:56] VITALS: BP 134/85
== END 2021-03-24 18:56 | disposition home or self-care (01) ==
LOC: EDUNIT# 16:21 → ER 16:22
DX: J06.9 Acute upper respiratory infection, unspecified (principal); I25.2 Old myocardial infarction; I10 Essential (primary) hypertension; J45.909 Unspecified asthma, uncomplicated; G47.30 Sleep apnea, unspecified; I48.91 Unspecified atrial fibrillation; K21.9 Gastro-esophageal reflux disease without esophagitis; I25.10 Atherosclerotic heart disease of native coronary artery without angina pectoris; E78.00 Pure hypercholesterolemia, unspecified; E66.01 Morbid (severe) obesity due to excess calories; E11.9 Type 2 diabetes mellitus without complications; F41.9 Anxiety disorder, unspecified; F32.9 Major depressive disorder, single episode, unspecified; Z68.41 Body mass index [BMI] 40.0-44.9, adult; Z86.718 Personal history of other venous thrombosis and embolism; Z20.822 Contact with and (suspected) exposure to COVID-19; Z79.82 Long term (current) use of aspirin; Z79.4 Long term (current) use of insulin; Z79.899 Other long term (current) drug therapy; Z79.01 Long term (current) use of anticoagulants
CPT/HCPCS: 36415; 71045; 80053; 83735; 83880; 84484; 85025; 85610; 85730; 86141; 87636; 93005; 93041

== ENCOUNTER → 2021-03-30 | Outpatient (CLI) | payer OTHER ==
[~2021-03-30] MED LIST changes: +AMOX-358 PO; +PRD50T PO
--- NOTE | 2021-03-30 13:34 | Diagnostic Imaging Report ---
Indication: Routine screening. Comparison is made with prior mammogram from 03/26/2020 and 10/30/2018. 2-D and 3-D bilateral screening mammography was performed with CAD. Correlation is made with prior mammogram 03/26/2020 and 10/30/2018. Cardiac loop recorder overlies the medial left breast. Scattered benign calcifications are noted bilaterally. No mass or malignant-appearing microcalcifications are seen. Axillae are unremarkable. IMPRESSION: BI-RADS Category 2 No mammographic features suspicious for malignancy are identified. ACR BI-RADS Category 2: Benign findings. Result letter will be mailed to the patient. Note: At least 10% of breast cancer is not imaged by mammography. Dictated by: Dictated on workstation # [id number]
== END ==
LOC: RAD 10:57
PROVIDERS: ATTEND Family Medicine
DX: Z12.31 Encounter for screening mammogram for malignant neoplasm of breast (principal)
CPT/HCPCS: 77063; 77067

== ENCOUNTER → 2021-04-14 | Outpatient (CLI) | payer OTHER ==
[~2021-04-14] MED LIST changes: -AMIO200T6 PO; +AMIO200T65 PO; -CITA40TA11 PO; +CITA40TA13 PO; +CYCL10TA25 PO; -CYCL10TA9 PO; +ETOD500T3 PO; -ETOD500T4 PO; -LISI-729 PO; +LISI5TAB20 PO
--- NOTE | 2021-04-14 15:50 | Diagnostic Imaging Report ---
INDICATION: Postmenopausal. COMPARISON: None. TECHNIQUE: The bone mineral density of the spine, hips, and femoral necks was measured. FINDINGS: The T score for the spine is 0.4. The T score for the total left hip is 1.2 and for the right hip 1.3. The T score for each femoral neck is 1.5. All of these values are within normal limits. AP Spine L1-L4: [BMD (g/cm2): 1.244] [T-Score: 0.4] [Z-Score: 0.8] [BMD Previous: na] [BMD % Change: na] LT Hip Neck: [BMD (g/cm2): 1.251] [T-Score: 1.5] [Z-Score: 2.4] LT Hip Total: [BMD (g/cm2):1.1547] [T-Score:1.2] [Z-Score: 1.7] [BMD Previous: na] [BMD % Change: na] RT Hip Neck: [BMD (g/cm2):1.241] [T-Score:1.5] [Z-Score:2.3] RT Hip Total: [BMD (g/cm2):1.176] [T-score:1.3] [Z-Score:1.9] [BMD Previous:na] [BMD % Change:na] *Indicates significant change from prior examination based on 95% confidence level. World Health Organization criteria for BMD interpretation classify patients as Normal (T-score at or above -1.0), Osteopenic (T-score between -1.0 and -2.5) or Osteoporotic (T-score at or below -2.5). LIMITATIONS AND MODIFICATION: None. FRACTURE RISK (FRAX SCORE): The ten year probability of (%): Major Osteoporotic Fracture: [na] Hip Fracture: [na] IMPRESSION: 1. The bone mineral density of the spine and hips and the femoral necks is within normal limits. 2. See below National Osteoporosis Foundation guidelines on when to potentially initiate pharmacologic therapy. Based on the National Osteoporosis Foundation Guidelines, pharmacologic treatment should be initiated in any of the following, unless clinical conditions suggest otherwise: * Any patient with prior fragility fracture of the hip or vertebrae. A spine fracture indicates 5X risk for subsequent spine fracture and 2X risk for subsequent hip fracture. * Osteoporosis (T-score <-2.5). * Postmenopausal women and men age 50 and older with low bone mass/osteopenia (T-score between -1.0 and -2.5) by DXA and 10-year major osteoporotic fracture greater than 20% or a 10-year probability of hip fracture greater than 3%. These fracture risks are supplied above in the FRAX score, if applicable. * Clinician judgement and/or patient preferences may indicate treatment for people with 10-year fracture probabilities above or below these levels. Dictated by: Dictated on workstation # [id number]
== END ==
LOC: RAD 14:00
PROVIDERS: ATTEND Family Medicine
DX: Z13.820 Encounter for screening for osteoporosis (principal); Z78.0 Asymptomatic menopausal state
CPT/HCPCS: 77080

== ENCOUNTER → 2021-06-01 | Outpatient (CLI) | payer MEDICARE, OTHER ==
--- NOTE | 2021-06-01 15:23 | Diagnostic Imaging Report ---
PROCEDURE: Pelvic comp/transvaginal sonogram. TECHNIQUE: Complete transabdominal and transvaginal pelvic ultrasound was performed. In addition, limited pelvic Doppler was performed. INDICATION: Postmenopausal. COMPARISON: Correlation is made to the prior ultrasound from 03/26/2020. FINDINGS: The uterus is anteverted measuring 5.1 x 3.0 x 3.3 cm. The endometrium is 8 mm in thickness. Calcifications in the endometrium are again noted. The IUD remains present towards the lower uterine segment. No myometrial mass is identified. The right ovary was not visualized. The left ovary measures 1.6 x 1.2 x 1.3 cm. There is blood flow to the left ovary. An endometrial cyst is noted measuring 8 mm. There is no free fluid. IMPRESSION: 1. The IUD remains in place in the lower uterine segment. 2. Nonvisualized right ovary. No other significant abnormality is seen. Dictated by: Dictated on workstation # [id number]
== END ==
LOC: RAD 14:15
PROVIDERS: ATTEND Obstetrics & Gynecology
DX: N85.02 Endometrial intraepithelial neoplasia [EIN] (principal); I82.509 Chronic embolism and thrombosis of unspecified deep veins of unspecified lower extremity; Z68.41 Body mass index [BMI] 40.0-44.9, adult; Z97.5 Presence of (intrauterine) contraceptive device
CPT/HCPCS: 76830; 76856

== ENCOUNTER → 2021-07-03 | Outpatient (CLI) | payer MEDICARE, MEDICAID | LOC: CARD 14:30 | PROVIDERS: ATTEND Internal Medicine Cardiovascular Disease | DX: I11.9 Hypertensive heart disease without heart failure (principal) | CPT/HCPCS: 93306 ==

== ENCOUNTER 2021-09-24 06:46 | Outpatient (CLI) | payer MEDICARE, MEDICAID ==
[~2021-09-24] VITALS: Ht 179 cm; Wt 136.0 kg
== END 2021-09-24 12:32 | disposition home or self-care (01) ==
LOC: PREOP 06:46
PROVIDERS: ATTEND Surgery
DX: Z01.818 Encounter for other preprocedural examination (principal)

== ENCOUNTER 2021-10-06 12:48 | Day surgery (SDC) | payer MEDICARE, MEDICAID ==
[~2021-10-06] VITALS: Ht 179 cm; Wt 136.0 kg
[2021-10-06] MEDS ORDERED: LACTATED RINGERS 1,000 ML IV STA (12:50)
[2021-10-06] MEDS ORDERED: HURRICAINE EXT TUBE (BENZOCAINE) XX PRN (13:00)
[2021-10-06] MEDS ORDERED: LACTATED RINGERS 1,000 ML IV ONE (13:02)
[2021-10-06 13:18] VITALS: BP 126/79
[2021-10-06] MEDS ORDERED: PROPOFOL INJECTION 50 ML IV ONE (13:27)
[2021-10-06] MEDS ORDERED: MIDAZOLAM 2 MG/2 ML (VERSED) VIAL ONE (13:27)
[2021-10-06 14:10] VITALS: BP 125/57
[2021-10-06] MEDS ORDERED: PANT40TA2 PO (14:10)
--- NOTE | 2021-10-06 14:10 | Discharge Inst-Simple/Standard ---
Discharge Inst-Standard Discharge Medications New, Converted or Re-Newed RX: Transmitted to Pharmacy Patient Instructions/Follow Up Plan of Care/Instructions/FU: 3-4 weeks Marcelino Activity as Tolerated: Yes Discharge Diet: Regular Diet CALEB ALVARADO DO October 06, 2021 14:10
[2021-10-06 14:14] VITALS: BP 125/57
--- NOTE | 2021-10-06 14:14 | Anesthesia-General Post-Op ---
MAC Patient Condition Mental Status/LOC: Same as Preop Cardiovascular: Satisfactory Nausea/Vomiting: Absent Respiratory: Satisfactory Pain: Controlled Complications: Absent Post Op Complications Complications None Follow Up Care/Instructions Patient Instructions None needed. Anesthesiology Discharge Order Discharge Order Patient is doing well, no complaints, stable vital signs, no apparent adverse anesthesia problems. ZOE MANN DO October 06, 2021 14:14
--- NOTE | 2021-10-06 14:16 | Progress Note-Post Operative ---
Post-Operative Progess Note Surgeon (s)/Health Care Liaison (s) Surgeon CALEB ALVARADO DO Health Care Liaison: na Pre-Operative Diagnosis family history of colon cancer, hx of polyps, gerd Post-Operative Diagnosis esophageal erosion healing, gastritis, poor prep Procedure & Operative Findings Date of Procedure 10/06/21 Procedure Performed/Findings egd c biopsies, flex sig Anesthesia Type per mda Estimated Blood Loss Estimated blood loss (mL): none Specimens/Packing Specimens Removed antrum, body, ge CALEB ALVARADO DO October 06, 2021 14:16
[2021-10-06 15:00] VITALS: BP 114/50
--- NOTE | 2021-10-07 00:33 | OPERATIVE REPORT ---
DATE OF SERVICE: 10/06/2021 PREOPERATIVE DIAGNOSES: Family history of colon cancer, history of polyps, gastroesophageal reflux disease. POSTOPERATIVE DIAGNOSES: Esophageal erosion healing, gastritis, poor prep. PROCEDURE: EGD with biopsy, flexible sigmoidoscopy. SURGEON: Caleb Benson DO ANESTHESIA: Per MDA. ESTIMATED BLOOD LOSS: None. COMPLICATIONS: None. SPECIMENS: Antrum, body, and GE junction. INDICATIONS: The patient is a 70-year-old female needing EGD and colonoscopy for further evaluation. She understands risks and benefits of procedure and wishes to proceed. Consent was signed in the chart. DESCRIPTION OF PROCEDURE: The patient was taken to the endoscopy suite, placed in the left lateral recumbent position. Timeout was performed. Scope was inserted in mouth, down the esophagus, stomach and into the duodenum without difficulty. There were no polyps, masses or ulcerations within the duodenum. Scope was slowly retracted back into the stomach where it was further insufflated. Erythematous changes throughout the stomach. Biopsies of the antrum and body were obtained. No polyps, masses or ulcerations. Scope was retroflexed noting no other pathology. Scope was returned to its normal position, slowly withdrawn to distal esophagus. Old healing ulceration, apparent biopsies of the GE junction of this area were obtained. Scope was slowly retracted back until completely removed. Digital rectal exam was performed. No palpable polyps, masses or ulcerations. Scope was inserted in the rectum encountering a large amount of stool, particulate and liquid. Scope was advanced through the rectum into the sigmoid colon, still encountering a significant amount of fluid that was not able to be suctioned due to the amount of particulate. We attempted irrigation and suction, it still was not helpful. Therefore, we aborted proceeding. Scope was then slowly retracted back until completely removed, noting no gross pathology. RECOMMENDATIONS: I would recommend repeat EGD in about six weeks to reevaluate the esophageal area. We would do a 2-day prep to proceed with colonoscopy. We will also add Protonix 40 mg daily for medication. We will have her follow up in 3 to 4 weeks to discuss and schedule. Job ID: [id number] DocumentID: [id number] Dictated Date: 10/06/2021 14:16:17 Spindle Carver Date: 10/07/2021 00:31:43 Dictated By: CALEB BENSON DO
== END 2021-10-06 15:47 | disposition home or self-care (01) ==
LOC: ENDO 12:48
PROVIDERS: ATTEND Surgery
DX: Z12.11 Encounter for screening for malignant neoplasm of colon (principal); K21.00 Gastro-esophageal reflux disease with esophagitis, without bleeding; K22.10 Ulcer of esophagus without bleeding; K31.89 Other diseases of stomach and duodenum; K29.50 Unspecified chronic gastritis without bleeding; E66.01 Morbid (severe) obesity due to excess calories; Z68.41 Body mass index [BMI] 40.0-44.9, adult; Z79.899 Other long term (current) drug therapy; Z87.891 Personal history of nicotine dependence; Z86.718 Personal history of other venous thrombosis and embolism; Z79.01 Long term (current) use of anticoagulants; Z79.02 Long term (current) use of antithrombotics/antiplatelets; Z86.010 Personal history of colon polyps; Z80.0 Family history of malignant neoplasm of digestive organs
CPT/HCPCS: 43239; G0104

== ENCOUNTER 2021-10-28 07:15 | Outpatient (CLI) | payer MEDICARE, MEDICAID ==
[~2021-10-28] VITALS: Ht 177.8 cm; Wt 136.1 kg
[~2021-10-28 07:15] MED LIST changes: +PANT40TA2 PO
== END 2021-10-28 09:49 | disposition home or self-care (01) ==
LOC: PREOP 07:15
PROVIDERS: ATTEND Surgery
DX: Z01.818 Encounter for other preprocedural examination (principal)

== ENCOUNTER 2021-11-10 10:08 | Day surgery (SDC) | payer MEDICARE, MEDICAID ==
[~2021-11-10] VITALS: Ht 178 cm; Wt 136.1 kg
[~2021-11-10 10:08] MED LIST changes: -GLUC1TAB20 PO; +GLUC1TAB21 PO
[2021-11-10] MEDS ORDERED: LACTATED RINGERS 1,000 ML IV STA (10:09)
[2021-11-10] MEDS ORDERED: LACTATED RINGERS 1,000 ML IV ONE (10:14)
[2021-11-10] MEDS ORDERED: HURRICAINE EXT TUBE (BENZOCAINE) XX PRN (10:15)
[2021-11-10 10:33] VITALS: BP 149/80
[2021-11-10] MEDS ORDERED: PROPOFOL INJECTION 50 ML IV ONE (10:42)
--- NOTE | 2021-11-10 10:45 | Progress Note-Pre Operative ---
Pre-Operative Progress Note H&P Reviewed The H&P was reviewed, patient examined and no changes noted. Date Seen by Provider: Nov 10, 2021 Time Seen by Provider: 10:45 Date H&P Reviewed: Nov 10, 2021 Time H&P Reviewed: 10:45 Pre-Operative Diagnosis: family hx colon cancer, gerd CALEB ALVARADO DO Nov 10, 2021 10:45
[2021-11-10] MEDS ORDERED: proPOfol 200 MG/20 ML (DIPRIVAN) VIAL IV ONE (11:14)
--- NOTE | 2021-11-10 11:29 | Progress Note-Post Operative ---
Post-Operative Progess Note Surgeon (s)/Capacitor Inspector (s) Surgeon CALEB ALVARADO DO Capacitor Inspector: na Pre-Operative Diagnosis family hx colon cancer, gerd Post-Operative Diagnosis normal egd, normal colon Procedure & Operative Findings Date of Procedure 11/10/21 Procedure Performed/Findings egd c biopsies, colonoscopy Anesthesia Type per health and wellness coach Estimated Blood Loss Estimated blood loss (mL): none Specimens/Packing Specimens Removed antrum, ge CALEB ALVARADO DO Nov 10, 2021 11:29
--- NOTE | 2021-11-10 11:29 | Anesthesia-General Post-Op ---
MAC Patient Condition Mental Status/LOC: Same as Preop Cardiovascular: Satisfactory Nausea/Vomiting: Absent Respiratory: Satisfactory Pain: Controlled Complications: Absent Post Op Complications Complications None Follow Up Care/Instructions Patient Instructions None needed. Anesthesiology Discharge Order Discharge Order Patient is doing well, no complaints, stable vital signs, no apparent adverse anesthesia problems. No complications reported per nursing. JEAN CLAUDE TRIPP CRNA Nov 10, 2021 11:29
[2021-11-10 11:30] VITALS: BP 111/65
--- NOTE | 2021-11-10 11:30 | Discharge Inst-Simple/Standard ---
Discharge Inst-Standard Patient Instructions/Follow Up Plan of Care/Instructions/FU: 2 weeks cade Activity as Tolerated: Yes Discharge Diet: Regular Diet CALEB ALVARADO DO Nov 10, 2021 11:30
[2021-11-10 11:33] VITALS: BP 111/65
[2021-11-10 12:15] VITALS: BP 135/73
--- NOTE | 2021-11-10 16:32 | OPERATIVE REPORT ---
DATE OF SERVICE: 11/10/2021 PREOPERATIVE DIAGNOSES: Family history of colon cancer, gastroesophageal reflux disease. POSTOPERATIVE DIAGNOSIS: Normal esophagogastroduodenoscopy, normal colon. PROCEDURE: EGD with biopsies, colonoscopy. SURGEON: Caleb Benson DO ANESTHESIA: Per TEACHING YOUNG. ESTIMATED BLOOD LOSS: None. COMPLICATIONS: None. SPECIMENS: Antrum and GE junction. INDICATIONS: The patient is a 70-year-old female with a family history of colon cancer and GERD. She understands risks and benefits of procedure and wishes to proceed. Consent was signed in the chart. DESCRIPTION OF PROCEDURE: The patient was taken to the endoscopy suite, placed in left lateral recumbent position. Timeout was performed. Scope was inserted in mouth, down the esophagus, stomach and into the duodenum without difficulty. No polyps, masses or ulcerations within the duodenum. Scope was slowly retracted back into the stomach where it was further insufflated. No polyps, masses or ulcerations. Biopsy of the antrum was obtained. Scope was retroflexed noting no other pathology. Scope was returned to its normal position, slowly withdrawn to distal esophagus. No evidence of any ulcer that was previously thought to be there, this was healed. Biopsy of the GE junction was obtained. Scope was slowly retracted back until completely removed, noting no other pathology. Digital rectal exam was performed. No palpable polyps, masses or ulcerations. Scope was inserted in the rectum and advanced all the way to cecum with minimal difficulty. Prep was adequate with irrigation and suction. Scope was then slowly retracted back. No polyps, masses or ulcerations within the cecum, ascending, transverse, descending and sigmoid colon. Once in the rectum, scope was inserted and retracted multiple times, noting no other pathology. Scope was slowly retracted back until completely removed. The patient tolerated the procedure well without any complications. She was taken to recovery room in stable condition. RECOMMENDATIONS: The patient will need repeat colonoscopy in 5 years. Any issues before that be seen at that time. We would consider repeat. The patient will follow up on biopsy results. No changes to current medications. Job ID: [id number] DocumentID: [id number] Dictated Date: 11/10/2021 11:32:51 Online Retailer Date: 11/10/2021 15:07:22 Dictated By: CALEB BENSON DO
== END 2021-11-10 12:50 | disposition home or self-care (01) ==
LOC: ENDO 10:08
PROVIDERS: ATTEND Surgery
DX: Z12.11 Encounter for screening for malignant neoplasm of colon (principal); K21.00 Gastro-esophageal reflux disease with esophagitis, without bleeding; K31.89 Other diseases of stomach and duodenum; E11.40 Type 2 diabetes mellitus with diabetic neuropathy, unspecified; G47.33 Obstructive sleep apnea (adult) (pediatric); E66.01 Morbid (severe) obesity due to excess calories; Z68.41 Body mass index [BMI] 40.0-44.9, adult; Z79.899 Other long term (current) drug therapy; Z87.891 Personal history of nicotine dependence; Z86.010 Personal history of colon polyps; Z80.0 Family history of malignant neoplasm of digestive organs; Z79.82 Long term (current) use of aspirin; Z79.01 Long term (current) use of anticoagulants; Z79.4 Long term (current) use of insulin; Z79.84 Long term (current) use of oral hypoglycemic drugs; Z88.8 Allergy status to other drugs, medicaments and biological substances; Z95.5 Presence of coronary angioplasty implant and graft; Z85.42 Personal history of malignant neoplasm of other parts of uterus
CPT/HCPCS: 43239; G0105; 82947

== ENCOUNTER → 2021-11-27 | Outpatient (CLI) | payer MEDICARE, MEDICAID ==
--- NOTE | 2021-11-27 09:39 | Diagnostic Imaging Report ---
PROCEDURE: US Gallbladder, 11/27/2021 TECHNIQUE: Multiple real-time grayscale images were obtained over the right upper quadrant in various projections. INDICATION: Epigastric pain. FINDINGS: The liver is heterogeneous in nature consistent with diffuse fatty infiltration. It is somewhat prominent in appearance measuring 22.3 cm. No focal lesions or intrahepatic biliary dilatation appreciated. The common duct is normal in size. Gallbladder wall is at the upper limits of normal in thickness. No stones or sludge appreciated. No pericholecystic fluid. The pancreas is for the most part obscured by overlying bowel gas. Visualized proximal aorta and IVC unremarkable. The right kidney 10.8 cm in length. There is no hydronephrosis. There is a cystic structure present measuring 2.9 cm in greatest dimension. Internal echoes noted. There is no ascites. IMPRESSION: 1. Hepatomegaly with hepatic steatosis. 2. Gallbladder wall thickness at the upper limits of normal, nonspecific, as there are no other changes suggestive of acute cholecystitis. 3. Slightly complex appearing cystic lesion in the right kidney which could be due to poor penetration. True internal echoes not excluded. Nonemergent CT imaging of the kidney may provide further characterization. Dictated by: Dictated on workstation # [id number]
== END ==
LOC: RAD 08:49
PROVIDERS: ATTEND Surgery
DX: K76.0 Fatty (change of) liver, not elsewhere classified (principal)
CPT/HCPCS: 76705

== ENCOUNTER → 2021-12-11 | Outpatient (CLI) | payer MEDICARE, MEDICAID ==
[~2021-12-11] MED LIST changes: +CATHETER FLUSH 10 ML SYR IVP PRN
== END ==
LOC: CARD 09:02
PROVIDERS: ATTEND Surgery
DX: R10.13 Epigastric pain (principal)

== ENCOUNTER 2021-12-14 16:29 | Emergency (ER) | payer MEDICARE, MEDICAID ==
[~2021-12-14 16:29] MED LIST changes: -CATHETER FLUSH 10 ML SYR IVP PRN
--- NOTE | 2021-12-14 16:44 | ED General ---
General Chief Complaint: General Problems/Pain Stated Complaint: LEG PAIN Source of Information: Patient Exam Limitations: No Limitations History of Present Illness Date Seen by Provider: Dec 14, 2021 Time Seen by Provider: 16:42 Initial Comments Patient is a 71-year-old female with a history of hypertension, diabetes, neuropathy, cad who presents ED with bilateral lower leg pain. Pain started yesterday. She states she she has a history of chronic low back pain and leg pain. She did not take her gabapentin yesterday but did take oxycodone. She slept most of the day yesterday woke up this morning with worsening pain in her lower extremity bilateral. Denies of any swelling or bruising. She denies of any fall. She took her 800 mg of gabapentin around 2 but immediately vomited and presents to the ED for worsening pain. She states she felt feverish. 1 episode of vomiting. No diarrhea, cough, chest pain, headache, dizziness. Patient is a poor historian difficulty obtaining history. Allergies and Home Medications Allergies Coded Allergies: black cohosh (Verified Allergy, Unknown, 08/07/15) glyburide (Verified Allergy, Unknown, 08/07/15) isosorbide (Verified Allergy, Unknown, 08/07/15) Uncoded Allergies: ARCABOSE (Allergy, Mild, Abdominal Pain, 10/01/19) GAS PAINS Patient Home Medication List Home Medication List Reviewed: Yes Acetaminophen (Acetaminophen) 500 Mg Tablet, 1,000 MG PO DAILY PRN, (Reported) Entered as Reported by: CORI CHRISTINA on 06/14/19 0736 Aspirin (Aspirin EC) 81 Mg Tablet.dr, 81 MG PO DAILY, (Reported) Entered as Reported by: ANGELY MATOS on 05/21/19 0914 Atorvastatin Calcium (Atorvastatin Calcium) 80 Mg Tablet, 80 MG PO HS, (Reported) Entered as Reported by: ANGELY MATOS on 12/21/18 0855 Calcium Carbonate/Vitamin D3 (Calcium 500 + Vit D Caplet) 1 Each Tablet, 1 TAB PO BID, (Reported) Entered as Reported by: ANGELY MATOS on 08/08/15 0857 Cephalexin (Cephalexin) 500 Mg Tablet, 500 MG PO BID Prescribed by: HIMANSHU MCCULLOUGH on 12/14/211950 Cetirizine HCl (Zyrtec) 10 Mg Tablet, 10 MG PO DAILY, (Reported) Entered as Reported by: ANGELY MATOS on 11/30/18 0959 Cholecalciferol (Vitamin D3) (Vitamin D3) 25 Mcg Tablet, 25 MCG PO 1200, (Reported) Entered as Reported by: PATRIC MCMANUS on 02/06/20 161 Cyclobenzaprine HCl (Cyclobenzaprine HCl) 10 Mg Tablet, 10 MG PO TID, (Reported) Entered as Reported by: ANGELY MATOS on 03/07/19 1204 Cyclosporine (Restasis) 1 Each Droperette, 1 DROP OU BID, (Reported) Entered as Reported by: CORI CHRISTINA on 06/14/19 0754 Diltiazem HCl (Diltiazem 24Hr ER) 360 Mg Cap.er.24h, 360 MG PO DAILY, (Reported) Entered as Reported by: PATRIC MCMANUS on 02/06/20 161 Dofetilide (Dofetilide) 250 Mcg Capsule, 250 MCG PO BID, (Reported) Entered as Reported by: PATRIC MCMANUS on 02/06/20 161 Famotidine (Pepcid) 20 Mg Tablet, 20 MG PO DAILY PRN for HEARTBURN, (Reported) Entered as Reported by: ANGELY MATOS on 05/21/19 0914 Ferrous Sulfate (Ferrous Sulfate) 325 Mg Tablet, 325 MG PO 1800, (Reported) Entered as Reported by: ANGELY MATOS on 11/30/18 0959 Fluticasone/Vilanterol (Breo Ellipta 200-25 Mcg INH) 1 Each Blst.w.dev, 1 EACH IH DAILY, (Reported) Entered as Reported by: CORI CHRISTINA on 06/14/19 0733 Gabapentin (Gabapentin) 800 Mg Tablet, 800 MG PO QID, (Reported) Entered as Reported by: ANGELY MATOS on 11/30/18 0959 Glucosam/Chond/Hyalu/Cf Borate (Move Free Joint Health Tablet) 1 Each Tablet, 1 EACH PO BID, (Reported) Entered as Reported by: PATRIC MCMANUS on 02/06/20 161 Hydroxyzine HCl (Hydroxyzine HCl) 10 Mg Tablet, 10 MG PO TID, (Reported) Entered as Reported by: CORI CHRISTINA on 06/14/19 0738 Imipramine HCl (Imipramine HCl) 50 Mg Tablet, 50 MG PO HS, (Reported) Entered as Reported by: ANGELY MATOS on 11/30/18 0959 Insulin Aspart (Novolog Flexpen) 300 Units/3 Ml Solution, 5-6 UNITS SQ TIDAC, (Reported) Entered as Reported by: ANGELY MATOS on 08/08/15 0857 Insulin Glargine,Hum.rec.anlog (Lantus) 100 Unit/1 Ml Vial, 18 UNIT SQ HS, (Reported) Entered as Reported by: ANGELY MATOS on 08/08/15 0857 Lactobacillus Rhamnosus GG (Culturelle) 1 Each Capsule, 1 CAP PO DAILY PRN for WHILE TAKING ANTIBIOTICS, (Reported) Entered as Reported by: ANGELY MATOS on 05/21/19 0914 Lisinopril (Lisinopril) 20 Mg Tablet, 20 MG PO DAILY, (Reported) Entered as Reported by: ANGELY MATOS on 11/30/18 0959 Metformin HCl (Metformin HCl) 1,000 Mg Tablet, 1,000 MG PO BID WITH MEALS, (Repo rted) Entered as Reported by: CORI CHRISTINA on 06/14/19 0730 Metoprolol Succinate (Metoprolol Succinate) 50 Mg Tab.er.24h, 50 MG PO DAILY, (Reported) Entered as Reported by: PATRIC MCMANUS on 02/06/20 1619 Mineral Oil/Petrolatum,White (Refresh Lacri-Lube Ointment) 3.5 Gm Oint...g., OU HS, (Reported) Entered as Reported by: ANGELY MATOS on 08/08/15 0857 Mirabegron (Myrbetriq) 50 Mg Tab.er.24h, 50 MG PO DAILY, (Reported) Entered as Reported by: PATRIC MCMANUS on 04/13/19 1112 Multivitamin (Multi-Vitamin Daily) 1 Each Tablet, 1 EACH PO DAILY, (Reported) Entered as Reported by: CORI CHRISTINA on 06/14/19 0742 Nitrofurantoin Macrocrystal (Nitrofurantoin) 100 Mg Capsule, 100 MG PO 1800, (Reported) Entered as Reported by: CORI CHRISTINA on 06/14/19 0741 Tabiona 3 Polyunsat Fatty Acids (Fish Oil 1,000 mg Capsule) 1,000 Mg Cap, 1,000 MG PO TID, (Reported) Entered as Reported by: ANGELY MATOS on 11/30/18 0959 Oxycodone HCl/Acetaminophen (Percocet 10-325 mg Tablet) 1 Each Tablet, 1 TAB PO EVERY 4-6 HOURS PRN for PAIN-MODERATE (5-7), (Reported) Entered as Reported by: ANGELY MATOS on 05/21/19 0914 Pantoprazole Sodium (Protonix) 40 Mg Tablet.dr, 40 MG PO DAILY Prescribed by: CALEB ALVARADO on 10/06/21 1410 Polyethylene Glycol 3350 (Miralax) 17 Gm Powd.pack, 17 GM PO DAILY PRN for CONSTIPATION-1ST LINE, (Reported) Entered as Reported by: ANGELY MATOS on 11/30/18 0959 Polyvinyl Alcohol/Povidone (Artificial Tears Drops) 15 Ml Drops, 2 DROPS OU Q4H PRN for DRY EYES, (Reported) Entered as Reported by: CORI CHRISTINA on 06/14/19 0752 Prasugrel HCl (Prasugrel HCl) 10 Mg Tablet, 10 MG PO MoWe, (Reported) Entered as Reported by: ANGELY MATOS on 12/21/18 0855 Primidone (Mysoline) 250 Mg Tablet, 250 MG PO TID, (Reported) Entered as Reported by: PATRIC MCMANUS on 04/13/19 1112 Solifenacin Succinate (Vesicare) 10 Mg Tablet, 10 MG PO 1600, (Reported) Entered as Reported by: PATRIC MCMANUS on 04/23/19 0927 Venlafaxine HCl (Venlafaxine HCl ER) 150 Mg Cap.er.24h, 150 MG PO DAILY, (Reported) Entered as Reported by: PATRIC MCMANUS on 02/06/20 1625 Warfarin Sodium (Warfarin Sodium) 4 Mg Tablet, 4 MG PO TuTh, (Reported) Entered as Reported by: ANGELY MATOS on 03/07/19 1204 Warfarin Sodium (Warfarin Sodium) 4 Mg Tablet, 2 MG PO SuMoWeFrSa, (Reported) Entered as Reported by: ANGELY MATOS on 03/07/19 1204 Review of Systems Review of Systems Constitutional: No chills, No diaphoresis, No malaise, No weakness EENTM: No hearing loss, No blurred vision, No double vision Respiratory: No cough Cardiovascular: No chest pain Gastrointestinal: No abdominal pain, No diarrhea; nausea, vomiting Genitourinary: No decreased output, No discharge Musculoskeletal: No back pain; joint pain, muscle pain Skin: No change in color, No change in hair/nails All Other Systems Reviewed Negative Unless Noted: Yes Past Sslbpex-Dpxqoe-Okvmhl Hx Immunizations Up To Date Tetanus Booster (TDap): Less than 5yrs PED Vaccines UTD: Yes First/Initial COVID19 Vaccinat: JULY 2020 Second COVID19 Vaccination Primo: AUGUST 2020 Third COVID19 Vaccination Date: NO Seasonal Allergies Seasonal Allergies: No Past Medical History Surgeries: Yes (LAD STENTS PLACED NOVEMBER 2018) Cardiac, Coronary Stent, Eye Surgery, Orthopedic Respiratory: Yes Asthma, Sleep Apnea Currently Using CPAP: Yes (wears cpap at night with no o2, brought her machine and her meds with her) Currently Using BIPAP: No Cardiac: Yes Atrial Fibrillation, Chronic Edema/Swelling, Coronary Artery Disease, Deep Vein Thrombosis, Heart Attack, High Cholesterol, Hypertension Neurological: Yes Neuropathy 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 Disorders: Yes Female 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 Disorders: Denies 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 Sexually Transmitted Disease: No HIV/AIDS: No Genitourinary: Yes UTI-Chronic Gastrointestinal: Yes Gastroesophageal Reflux, Chronic Constipation Musculoskeletal: Yes (Charcot foot) Degenerate Disk Disease, Arthritis, Chronic Back Pain Endocrine: Yes (MORBID OBESITY) Diabetes, Insulin dep HEENT: Yes Cataract Loss of Vision: Bilateral Hearing Impairment: Denies Cancer: Yes Uterine Did You Recieve Any Treatments: Yes What Type of Treatment Did You: Surgical Intervention Psychosocial: Yes Anxiety, Depression Integumentary: No Blood Disorders: No Adverse Reaction/Blood Tranf: No Family Medical History Cardiovascular disease 19 FATHER 19 MOTHER Colon cancer 19 FATHER 19 MOTHER Colon cancer 19 FATHER 19 MOTHER Diabetes mellitus 19 MOTHER G8 BROTHER G8 SISTER Myocardial infarction 19 FATHER No Pertinent Family Hx Physical Exam Vital Signs Vital Signs - First Documented 12/14/21 16:30 Temp 36.4 Pulse 89 Resp 18 B/P (MAP) 180/90 (120) Capillary Refill : Height, Weight, BMI Height: 5'10.50" Weight: 302lbs. 0.0oz. 136.640304dx; 42.95 BMI Method:Stated General Appearance: No Apparent Distress, WD/WN Eyes: Bilateral Eye Normal Inspection, Bilateral Eye PERRL, Bilateral Eye EOMI HEENT: PERRL/EOMI, TMs Normal, Normal ENT Inspection, Pharynx Normal Neck: Full Range of Motion, Normal Inspection, Non Tender, Supple Respiratory: Chest Non Tender, Lungs Clear, Normal Breath Sounds, No Accessory Muscle Use, No Respiratory Distress Cardiovascular: Regular Rate, Rhythm, No Edema, No Gallop, No JVD Gastrointestinal: Normal Bowel Sounds, No Organomegaly, No Pulsatile Mass, Non Tender, Soft Extremity: Other (Mild lower legs swelling. No erythema or ecchymosis. Diffuse pain throughout.) Neurologic/Psychiatric: Alert, Oriented x3, No Motor/Sensory Deficits, Normal Mood/Affect, range conservationist II-XII Norm as Tested Skin: Normal Color, Warm/Dry Progress/Results/Core Measures Suspected Sepsis SIRS Temperature: Pulse: Respiratory Rate: Laboratory Tests 12/14/21 16:46: White Blood Count 9.4 Blood Pressure / Mean: Laboratory Tests 12/14/21 16:46: Creatinine 0.82, Platelet Count 266, Total Bilirubin 0.3 Results/Orders Lab Results Laboratory Tests Test 12/14/21 16:42 12/14/21 16:46 12/14/21 19:01 Range/Units Magnesium Level 1.7 1.6-2.4 MG/DL White Blood Count 9.4 4.3-11.0 10^3/uL Red Blood Count 4.76 3.80-5.11 10^6/uL Hemoglobin 13.9 11.5-16.0 g/dL Hematocrit 41 35-52 % Mean Corpuscular Volume 87 80-99 fL Mean Corpuscular Hemoglobin 29 25-34 pg Mean Corpuscular Hemoglobin Concent 34 32-36 g/dL Red Cell Distribution Width 13.5 10.0-14.5 % Platelet Count 266 130-400 10^3/uL Mean Platelet Volume 9.7 9.0-12.2 fL Immature Granulocyte % (Auto) 0 % Neutrophils (%) (Auto) 70 42-75 % Lymphocytes (%) (Auto) 19 12-44 % Monocytes (%) (Auto) 9 0-12 % Eosinophils (%) (Auto) 2 0-10 % Basophils (%) (Auto) 0 0-10 % Neutrophils # (Auto) 6.6 1.8-7.8 10^3/uL Lymphocytes # (Auto) 1.8 1.0-4.0 10^3/uL Monocytes # (Auto) 0.8 0.0-1.0 10^3/uL Eosinophils # (Auto) 0.2 0.0-0.3 10^3/uL Basophils # (Auto) 0.0 0.0-0.1 10^3/uL Immature Granulocyte # (Auto) 0.0 0.0-0.1 10^3/uL Sodium Level 140 135-145 MMOL/L Potassium Level 3.7 3.6-5.0 MMOL/L Chloride Level 101 98-107 MMOL/L Carbon Dioxide Level 24 21-32 MMOL/L Anion Gap 15 H 5-14 MMOL/L Blood Urea Nitrogen 14 7-18 MG/DL Creatinine 0.82 0.60-1.30 MG/DL Estimat Glomerular Filtration Rate 77 BUN/Creatinine Ratio 17 Glucose Level 205 H 70-105 MG/DL Calcium Level 9.3 8.5-10.1 MG/DL Corrected Calcium 9.2 8.5-10.1 MG/DL Total Bilirubin 0.3 0.1-1.0 MG/DL Aspartate Amino Transf (AST/SGOT) 21 5-34 U/L Alanine Aminotransferase (ALT/SGPT) 29 0-55 U/L Alkaline Phosphatase 151 H 40-136 U/L Total Protein 8.2 6.4-8.2 GM/DL Albumin 4.1 3.2-4.5 GM/DL Urine Color YELLOW Urine Clarity CLOUDY Urine pH 6.0 5-9 Urine Specific [place] 1.015 L 1.016-1.022 Urine Protein TRACE H NEGATIVE Urine Glucose (UA) NEGATIVE NEGATIVE Urine Ketones TRACE H NEGATIVE Urine Nitrite POSITIVE H NEGATIVE Urine Bilirubin NEGATIVE NEGATIVE Urine Urobilinogen 0.2 < = 1.0 MG/DL Urine Leukocyte Esterase 2+ H NEGATIVE Urine RBC (Auto) TRACE-I H NEGATIVE Urine RBC NONE /HPF Urine WBC 25-50 H /HPF Urine Squamous Epithelial Cells NONE /HPF Urine Renal Epithelial Cells NONE /HPF Urine Crystals NONE /LPF Urine Bacteria MODERATE H /HPF Urine Casts NONE /LPF Urine Mucus NEGATIVE /LPF Urine Yeast FEW H /HPF Urine Culture Indicated YES My Orders Orders - VIRGINIA CASTELLANOS Cbc With Automated Diff (12/14/21 16:40) Comprehensive Metabolic Panel (12/14/21 16:40) Urinalysis (12/14/21 16:40) Ondansetron Injection (Zofran Injectio (12/14/21 16:45) Morphine Injection (Morphine Injection (12/14/21 16:45) Magnesium (12/14/21 17:52) Ns Iv 500 Ml (Sodium Chloride 0.9%) (12/14/21 18:00) Ondansetron Injection (Zofran Injectio (12/14/21 18:00) Urine Culture (12/14/21 19:01) Ceftriaxone 1 Gm Pre-Mix (Rocephin 1 Gm (12/14/21 19:34) Acetaminophen Tablet (Tylenol Tablet) (12/14/21 20:15) Medications Given in ED Current Medications Medications Dose Ordered Sig/Ashley Route Start Time Stop Time Status Last Admin Dose Admin Acetaminophen 1,000 mg ONCE ONCE PO 12/14/21 20:15 12/14/21 20:15 DC 12/14/21 20:09 1,000 MG Morphine Sulfate 4 mg ONCE ONCE IVP 12/14/21 16:45 12/14/21 16:46 DC 12/14/21 16:53 4 MG Ondansetron HCl 4 mg ONCE ONCE IVP 12/14/21 16:45 12/14/21 16:46 DC 12/14/21 16:53 4 MG Ondansetron HCl 4 mg ONCE ONCE IVP 12/14/21 18:00 12/14/21 18:02 DC 12/14/21 18:07 4 MG Vital Signs/I&O 12/14/21 12/14/21 16:30 20:15 Temp 36.4 36.4 Pulse 89 84 Resp 18 18 B/P (MAP) 180/90 (120) 158/84 Capillary Refill : Departure Communication (PCP) Patient reports chronic pain to his her lower extremities. History neuropathy. States that she slept most of the day yesterday and did not take her medication. This pain increased this morning. Pain in the back with pain in the lower extremities. She states this feels very similar to her neuropathy. She tried to take her gabapentin around 2 PM but vomited by EMS on arrival. Has not been able to stand secondary to pain. She takes oxycodone daily. She was given a dose of morphine. Lab work was otherwise unremarkable besides a urinary tract infection. History of urinary incontinence. Was given a small dose of fluids. Was given dose of Rocephin. She is neurologically intact. No current abdominal pain, chest pain, cough or shortness of breath. She is requesting stronger pain medication for her neuropathy which I recommend following up with her primary care physician regarding this. No falls suggesting fracture. Will discharge with Keflex. She is scheduled for HIDA scan tomorrow for this ongoing upper abdominal pain that she has been experiencing. She has no abdominal tenderness on palpation. Afebrile with normal white blood count. Normal liver enzymes patient pain has improved. Outpatient follow-up for further evaluation. Impression Primary Impression: UTI (urinary tract infection) Additional Impression: Leg pain Disposition: HOME, SELF-CARE Condition: Stable Departure-Patient Inst. Decision time for Depature: 19:50 Referrals: DELIA TRIANA MD (PCP/Family) Primary Care Physician Patient Instructions: Diabetic Neuropathy Add. Discharge Instructions: Need to follow-up with your PCP for further evaluation. All discharge instructions reviewed with patient and/or family. Voiced understanding. Scripts Cephalexin (Cephalexin) 500 Mg Tablet 500 MG PO BID for 7 Days, #14 TAB Prov: VIRGINIA CASTELLANOS 12/14/21 VIRGINIA CASTELLANOS Dec 14, 2021 16:44
[2021-12-14] MEDS ORDERED: morphine INJ 10 MG/ML 1ML (SYR OR VIAL) IVP ONE (16:45)
[2021-12-14] MEDS ORDERED: ONDANSETRON 4 MG/2 ML (SDV) Z0FRAN IVP ONE ×2 (16:45→18:00)
[2021-12-14 16:54] LABS: BASOPHILS % (AUTO) 0 % (0-10); EOSINOPHILS # (AUTO) 0.2 10^3/uL (0.0-0.3); EOSINOPHILS % (AUTO) 2 % (0-10); HEMATOCRIT 41 % (35-52); HEMOGLOBIN 13.9 g/dL (11.5-16.0); LYMPHOCYTES # (AUTO) 1.8 10^3/uL (1.0-4.0); LYMPHOCYTES % (AUTO) 19 % (12-44); MEAN CORPUSCULAR HEMOGLOBIN 29 pg (25-34); MEAN CORPUSCULAR HGB CONC 34 g/dL (32-36); MEAN CORPUSCULAR VOLUME 87 fL (80-99); MEAN PLATELET VOLUME 9.7 fL (9.0-12.2); MONOCYTES # (AUTO) 0.8 10^3/uL (0.0-1.0); MONOCYTES % (AUTO) 9 % (0-12); NEUTROPHILS # (AUTO) 6.6 10^3/uL (1.8-7.8); NEUTROPHILS % (AUTO) 70 % (42-75); PLATELET COUNT 266 10^3/uL (130-400); WHITE BLOOD COUNT 9.4 10^3/uL (4.3-11.0)
[2021-12-14 17:16] LABS: ALBUMIN 4.1 GM/DL (3.2-4.5); POTASSIUM 3.7 MMOL/L (3.6-5.0)
[2021-12-14 17:17] LABS: CALCIUM 9.3 MG/DL (8.5-10.1)
[2021-12-14 17:18] LABS: TOTAL PROTEIN 8.2 GM/DL (6.4-8.2)
[2021-12-14 17:20] LABS: BILIRUBIN,TOTAL 0.3 MG/DL (0.1-1.0)
[2021-12-14 17:22] LABS: CREATININE SERUM 0.82 MG/DL (0.60-1.30)
[2021-12-14] MEDS ORDERED: NS IV 500 ML 500 ML IV STA (18:00)
[2021-12-14 19:11] LABS: BILIRUBIN,URINE NEGATIVE (NEGATIVE); CLARITY,URINE CLOUDY; COLOR,URINE YELLOW; GLUCOSE, URINE (UA) NEGATIVE (NEGATIVE); KETONES,URINE TRACE (NEGATIVE); LEUKOCYTE ESTERASE ,URINE 2+ (NEGATIVE); NITRITE,URINE POSITIVE (NEGATIVE); PROTEIN,URINE TRACE (NEGATIVE)
[2021-12-14 19:19] LABS: BACTERIA,URINE MODERATE /HPF; WBC,URINE 25-50 /HPF; YEAST,URINE FEW /HPF
[2021-12-14] MEDS ORDERED: cefTRIAXone 1 GM PRE-MIX 50 ML IV STA (19:34)
[2021-12-14] MEDS ORDERED: CEPH500T PO (19:51)
[2021-12-14 20:15] VITALS: BP 158/84
[2021-12-14] MEDS ORDERED: ACETAMINOPHEN 500 MG TAB (TYLENOL) PO ONE (20:15)
== END 2021-12-14 20:14 | disposition home or self-care (01) ==
LOC: EDUNIT# 16:29 → ER 16:30
DX: G89.29 Other chronic pain (principal); M79.604 Pain in right leg; M79.605 Pain in left leg; N39.0 Urinary tract infection, site not specified; G47.30 Sleep apnea, unspecified; E66.01 Morbid (severe) obesity due to excess calories; Z68.41 Body mass index [BMI] 40.0-44.9, adult; Z99.89 Dependence on other enabling machines and devices; Z86.69 Personal history of other diseases of the nervous system and sense organs
CPT/HCPCS: 36415; 80053; 81000; 83735; 85025; 87088

== ENCOUNTER → 2021-12-15 | Outpatient (CLI) | payer MEDICARE, MEDICAID ==
[~2021-12-15] MED LIST changes: +CATHETER FLUSH 10 ML SYR IVP PRN
--- NOTE | 2021-12-15 12:52 | Diagnostic Imaging Report ---
INDICATION: Epigastric pain COMPARISON: Gallbladder ultrasound of 11/27/2021. TECHNIQUE: Anterior scintigraphic imaging of the abdomen was performed after the intravenous administration of 5.03 mCi Tc-99m Choletec. FINDINGS: The upper abdomen was imaged for 60 minutes with the gamma camera. There is prompt homogeneous uptake of radiopharmaceutical by the liver. There is activity in the common duct and gallbladder by 30 minutes. Small bowel activity is seen by 25 minutes. After 60 minutes, the patient received 8 oz of ensure by mouth. After 60 minutes, the gallbladder ejection fraction was calculated to be 34% which is borderline low. IMPRESSION: 1. Patent common and cystic bile ducts. 2. Borderline low gallbladder ejection fraction at 34%. This may represent mild gallbladder dysfunction, which can be seen with chronic cholecystitis. Dictated by: Dictated on workstation # [id number]
== END ==
LOC: CARD 10:00
PROVIDERS: ATTEND Surgery
DX: R10.13 Epigastric pain (principal)
CPT/HCPCS: 78227; A9537

== ENCOUNTER 2022-01-07 05:50 | Day surgery (SDC) | payer MEDICARE, MEDICAID ==
[~2022-01-07] VITALS: Ht 179 cm; Wt 136.1 kg
[2022-01-07] VITALS (12 sets, daily range): BP systolic 74–146; BP diastolic 42–91
[~2022-01-07 05:50] MED LIST changes: -CATHETER FLUSH 10 ML SYR IVP PRN
[2022-01-07] MEDS ORDERED: LACTATED RINGERS 1,000 ML IV PRN (06:15)
[2022-01-07] MEDS ORDERED: ceFAZolin 2 GM IV Premixed 50 ML IV ONE (06:45)
[2022-01-07 07:30] LABS: INR 1.1 (0.8-1.4); PROTHROMBIN TIME PATIENT 14.1 SEC (12.2-14.7)
[2022-01-07] MEDS ORDERED: LIDOCAINE/EPI 2% 1:200,00 (XYLOCAINE) 20 ML VIAL ONE (07:33)
--- NOTE | 2022-01-07 07:45 | Progress Note-Pre Operative ---
Pre-Operative Progress Note Date of Available H&P: Dec 16, 2021 Date H&P Reviewed: Jan 07, 2022 Time H&P Reviewed: 07:35 History & Physical: H&P Reviewed, Patient Examed, No changes noted Pre-Operative Diagnosis: biliary dyskinesia CALEB ALVARADO DO Jan 07, 2022 07:45
[2022-01-07] MEDS ORDERED: fentaNYL INJ 100 MCG/2 ML AMP ONE (07:46)
[2022-01-07] MEDS ORDERED: MIDAZOLAM 2 MG/2 ML (VERSED) VIAL ONE (07:46)
[2022-01-07] MEDS ORDERED: LIDOCAINE PF 2% 5 ML (XYLOCAINE) VIAL ONE (09:13)
[2022-01-07] MEDS ORDERED: ONDANSETRON 4 MG/2 ML (SDV) Z0FRAN ONE (09:13)
[2022-01-07] MEDS ORDERED: proPOfol 200 MG/20 ML (DIPRIVAN) VIAL IV ONE (09:13)
[2022-01-07] MEDS ORDERED: NEOSTIGMINE (BLOXIVERZ ) 1 MG/1ML 10 ML VIAL ONE (09:19)
[2022-01-07] MEDS ORDERED: GLYCOPYRROLATE 0.2 MG/ML (ROBINUL) 2 ML VIAL ONE (09:19)
--- NOTE | 2022-01-07 09:26 | Discharge Inst-Simple/Standard ---
Discharge Inst-Standard Patient Instructions/Follow Up Plan of Care/Instructions/FU: 2 weeks Marcelino Restart Warfarin and Aspirin in 4days. Activity as Tolerated: No Discharge Diet: Regular Diet Other Inst to Patient Follow up Appt: Make appointment for 2 weeks. Instructions: No lifting greater than 10 pounds. No strenuous activity. May shower in 24 hours, no tub bath or soaking. Use incentive spirometer at home as directed. No Smoking Skin/Wound Care: You have special glue over incision, it will fall off on it's own. Symptoms to Report: Appetite Changes, Extremity Discoloration, Numbness/Tingling, Swelling Increased, Bleeding Excessive, Eyesight Changes, Pain Increased, Urine Color Change, Constipation(Persistent), Fever over 101 degree F, Pain/Pressure in chest, Urinating Difficulty, Cough Up/Vomit Blood, Heart Beat Irreg/Pounding, Pain/Pressure in jaw, Vaginal Bleeding Increase, Cramps in feet or legs, Lightheadedness, Pain/Pressure in shoulder, Diarrhea(Persistent), Memory Changes Suddenly, Questions/Concerns, Weight gain consecutive days, Dizziness/Fainting, Nausea/Vomiting, Shortness of Breath, Weight gain over 2 pounds. If eyes or skin turn yellow notify physician. If questions or concerns contact your physician Or seek help at emergency department. CALEB ALVARADO DO Jan 07, 2022 09:26
--- NOTE | 2022-01-07 09:30 | Progress Note-Post Operative ---
Post-Operative Progess Note Surgeon (s)/Bowling Alley Operator (s) Surgeon CALEB ALVARADO DO Bowling Alley Operator: Dr. Glasgow to assist in retraction dissection and closure. Pre-Operative Diagnosis biliary dyskinesia Post-Operative Diagnosis same Procedure & Operative Findings Date of Procedure 01/07/22 Procedure Performed/Findings PROCEDURE: Laparoscopic cholecystectomy with intraoperative cholangiogram. COMPLICATIONS: None. PROCEDURE: The patient was taken to the operating suite and was prepped and draped in sterile fashion. A surgical pause was performed. Just superior to the umbilicus, a 12 mm incision was made. Dissection was taken down to the fascia, which was then scored and grasped with a Quinten and the abdomen was then entered. A 0 Vicryl suture was placed in a [id number]-[id number] fashion and a Hernandez trocar was placed and secured. Pneumoperitoneum was achieved. A 5mm trochar place in the subxyphoid and 2 in the right upper quadrant. The gallbladder was then grasped and elevated. Capsule tore off of the liver bed. Large distended gallbladder. The cystic duct, and cystic artery were then dissected out. Clip was placed on the distal portion of the cystic duct which was then partially transected. An arrow catheter was inserted into the duct and clip used to hold in place. The cholangiogram was then performed. No filing defects and contrast made its way into the duodenum. Catheter removed. Clips were placed on proximal portion of the cystic duct and then the duct was then transected. Clips were placed along the proximal and distal portion of the cystic artery which was then transected. Hook cautery was used to dissect the gallbladder from the gallbladder fossa achieving hemostasis. The gallbladder was placed in an Endobag and removed through the 12 mm trocar site. The abdomen was then reinspected. Copious amounts of irrigation were used to irrigate the abdomen and there were no signs of active bleeding. A piece of Surgicel was placed in the gallbladder fossa. Hemostasis had been achieved. The 12 mm fascial defect was then closed with 0 Vicryl suture that had been placed in a fjmwvy-[id number]-hmugl fashion. The abdomen was then desufflated, the trocars were removed. The abdomen was then washed and dried. The skin was then closed using 4-0 Monocryl in a subcuticular fashion. The abdomen was washed and dried and Skin Affix was place over incisions. Patient tolerated the procedure well without any complications and was taken to the recovery room in stable condition. Anesthesia Type general Estimated Blood Loss Estimated blood loss (mL): minimal Specimens/Packing Specimens Removed gallbladder Packing: Jeffl CALEB ALVARADO DO Jan 07, 2022 09:30
[2022-01-07] MEDS ORDERED: ONDANSETRON 4 MG/2 ML (SDV) Z0FRAN IVP PRN (09:45)
[2022-01-07] MEDS ORDERED: fentaNYL INJ 100 MCG/2 ML AMP IVP ONE (09:45)
[2022-01-07] MEDS ORDERED: morphine INJ 10 MG/ML 1ML (SYR OR VIAL) IVP ONE (09:45)
[2022-01-07] MEDS ORDERED: ROCURONIUM 50 MG/5 ML (ZEMURON) VIAL IV ONE (09:48)
--- NOTE | 2022-01-07 10:01 | Anesthesia-General Post-Op ---
General Patient Condition Mental Status/LOC: Same as Preop Cardiovascular: Satisfactory Nausea/Vomiting: Absent Respiratory: Satisfactory Pain: Controlled Complications: Absent Post Op Complications Complications None Follow Up Care/Instructions Patient Instructions None needed. Anesthesia/Patient Condition Patient Condition Patient is doing well, no complaints, stable vital signs, no apparent adverse anesthesia problems. No complications reported per nursing. MIKE DIXON CRNA Jan 07, 2022 10:01
--- NOTE | 2022-01-07 11:13 | Diagnostic Imaging Report ---
INDICATION: Abdominal pain IMPRESSION: 11.3 seconds of fluoroscopy and a single AP digital image of a surgical cholangiogram was acquired by Dr. Benson in surgery during laparoscopic cholecystectomy. The image submitted shows opacification of the biliary tree with contrast passing into the duodenum. Dictated by: Dictated on workstation # [id number]
[2022-01-07] MEDS ORDERED: SEVOFLURANE (ULTANE) 15 ML INHAL SOLN ONE (11:21)
[2022-01-07] MEDS ORDERED: SUGAMMADEX 500 MG/5 ML VIAL (BRIDION) IV ONE (11:24)
== END 2022-01-07 12:20 | disposition home or self-care (01) ==
LOC: SDC 05:50
PROVIDERS: ATTEND Surgery
DX: K82.8 Other specified diseases of gallbladder (principal); K81.1 Chronic cholecystitis; E11.9 Type 2 diabetes mellitus without complications; E66.01 Morbid (severe) obesity due to excess calories; K21.9 Gastro-esophageal reflux disease without esophagitis; G47.33 Obstructive sleep apnea (adult) (pediatric); Z68.41 Body mass index [BMI] 40.0-44.9, adult; Z79.4 Long term (current) use of insulin; Z79.84 Long term (current) use of oral hypoglycemic drugs; Z88.8 Allergy status to other drugs, medicaments and biological substances; Z79.01 Long term (current) use of anticoagulants; Z87.891 Personal history of nicotine dependence; Z95.5 Presence of coronary angioplasty implant and graft; Z79.82 Long term (current) use of aspirin
CPT/HCPCS: 36415; 76000; 82947; 85610; 87081

== ENCOUNTER → 2022-02-01 | Outpatient (CLI) | payer MEDICARE, MEDICAID | LOC: CARD 12:00 | PROVIDERS: ATTEND Internal Medicine Cardiovascular Disease | DX: I11.9 Hypertensive heart disease without heart failure (principal) | CPT/HCPCS: 93306 ==

== ENCOUNTER 2022-03-11 13:00 | Outpatient (RCR) | payer MEDICARE, MEDICAID | END 2022-03-15 | disposition home or self-care (01) | PROVIDERS: ATTEND Internal Medicine | DX: M54.16 Radiculopathy, lumbar region (principal); M19.90 Unspecified osteoarthritis, unspecified site; I10 Essential (primary) hypertension; E11.9 Type 2 diabetes mellitus without complications; R53.1 Weakness ==

== ENCOUNTER → 2022-03-11 | Outpatient (CLI) | payer MEDICARE, MEDICAID ==
--- NOTE | 2022-03-11 17:39 | Diagnostic Imaging Report ---
INDICATION: Pain. COMPARISON: Radiographs of the right knee dated 09/16/2020. TECHNIQUE: 8 radiographs of bilateral knees dated 03/11/2022. FINDINGS: Left: A single screw is identified within the proximal tibia. A lucency is noted about the head of the screw on the lateral radiograph. The tibia is mildly anteriorly positioned in relationship to the distal femur. The tibia is also slightly laterally positioned in relationship to the femur. Severe joint space narrowing of the medial and lateral compartments is noted with sclerosis of the articular surfaces and prominent osteophyte formation. The patellofemoral joint is narrowed though the patella remains seated within the trochlea. Background vascular calcifications. No knee joint effusion. Right: No acute fracture or dislocation. Severe medial joint space narrowing. Moderate lateral joint space narrowing. Severe tricompartmental osteophytosis, greatest involving the patellofemoral joint space. Narrowing of the patellofemoral joint space. No significant knee joint effusion. No suspicious radiopaque foreign body. IMPRESSION: 1. Postsurgical changes involving the right knee with lucency about the screw within the proximal tibia which may relate to loosening. 2. Severe end-stage degenerative changes of the left knee with mild anterior and lateral positioning of the tibia in relationship to the femur. 3. Severe end-stage degenerative changes within the right knee, greatest within the medial compartment and patellofemoral joint. Dictated by: Dictated on workstation # [id number]
== END ==
LOC: ORTHO 14:48
PROVIDERS: ATTEND Orthopaedic Surgery
DX: M17.0 Bilateral primary osteoarthritis of knee (principal)
CPT/HCPCS: 73564; G0463; 99203

== ENCOUNTER → 2022-03-23 | Outpatient (CLI) | payer MEDICARE, MEDICAID | LOC: ORTHO 16:23 | PROVIDERS: ATTEND Orthopaedic Surgery | DX: M17.0 Bilateral primary osteoarthritis of knee (principal); I10 Essential (primary) hypertension; I25.10 Atherosclerotic heart disease of native coronary artery without angina pectoris; E11.9 Type 2 diabetes mellitus without complications; E78.2 Mixed hyperlipidemia ==

== ENCOUNTER → 2022-03-31 | Outpatient (CLI) | payer OTHER ==
--- NOTE | 2022-03-31 19:11 | Diagnostic Imaging Report ---
INDICATION: Routine screening. COMPARISON: Prior mammograms from 03/30/2021 and 03/26/2020. EXAMINATION: 2D and 3D bilateral screening mammography was performed with CAD. The current study was also evaluated with a Computer Aided Detection (CAD) system. FINDINGS: Both breasts are primarily involutional. Cardiac loop recorder overlies the medial soft tissues. There are occasional benign calcifications. No mass or malignant-appearing microcalcifications are seen. Axillae are unremarkable. IMPRESSION: No mammographic features suspicious for malignancy are identified. ACR BI-RADS Category 2: Benign findings. Result letter will be mailed to the patient. Note: At least 10% of breast cancer is not imaged by mammography. Dictated by: Dictated on workstation # [id number]
== END ==
LOC: RAD 14:30
PROVIDERS: ATTEND Family Medicine
DX: Z12.31 Encounter for screening mammogram for malignant neoplasm of breast (principal)
CPT/HCPCS: 77063; 77067

== ENCOUNTER → 2022-04-14 | Outpatient (RCR) | payer MEDICARE, MEDICAID | END | disposition home or self-care (01) | PROVIDERS: ATTEND Internal Medicine | DX: M47.26 Other spondylosis with radiculopathy, lumbar region (principal); I10 Essential (primary) hypertension; E11.9 Type 2 diabetes mellitus without complications ==

== ENCOUNTER 2022-05-05 14:31 | Outpatient (RCR) | payer MEDICARE, MEDICAID | END 2022-05-15 | disposition home or self-care (01) | PROVIDERS: ATTEND Internal Medicine | DX: M47.26 Other spondylosis with radiculopathy, lumbar region (principal); I10 Essential (primary) hypertension; E11.9 Type 2 diabetes mellitus without complications ==

== ENCOUNTER 2022-06-08 13:10 | Outpatient (RCR) | payer MEDICARE, MEDICAID | END 2022-06-15 | disposition home or self-care (01) | PROVIDERS: ATTEND Internal Medicine | DX: M54.16 Radiculopathy, lumbar region (principal); I10 Essential (primary) hypertension; E11.9 Type 2 diabetes mellitus without complications ==

== ENCOUNTER 2022-06-09 18:00 | Emergency (ER) | payer MEDICARE, MEDICAID ==
[~2022-06-09] VITALS: Ht 177 cm; Wt 136.0 kg
[2022-06-09] MEDS ORDERED: morphine INJ 10 MG/ML 1ML (SYR OR VIAL) IVP STA (18:12)
[2022-06-09 18:23] LABS: BASOPHILS % (AUTO) 0 % (0-10); EOSINOPHILS # (AUTO) 0.4 10^3/uL (0.0-0.3); EOSINOPHILS % (AUTO) 4 % (0-10); HEMATOCRIT 40 % (35-52); LYMPHOCYTES # (AUTO) 2.4 10^3/uL (1.0-4.0); LYMPHOCYTES % (AUTO) 29 % (12-44); MEAN CORPUSCULAR HEMOGLOBIN 30 pg (25-34); MEAN CORPUSCULAR HGB CONC 33 g/dL (32-36); MEAN CORPUSCULAR VOLUME 90 fL (80-99); MEAN PLATELET VOLUME 9.9 fL (9.0-12.2); MONOCYTES # (AUTO) 0.6 10^3/uL (0.0-1.0); MONOCYTES % (AUTO) 7 % (0-12); NEUTROPHILS # (AUTO) 4.9 10^3/uL (1.8-7.8); NEUTROPHILS % (AUTO) 59 % (42-75); PLATELET COUNT 287 10^3/uL (130-400); WHITE BLOOD COUNT 8.3 10^3/uL (4.3-11.0)
--- NOTE | 2022-06-09 18:23 | ED Fall/Injury ---
General Chief Complaint: Trauma-Non Activation Stated Complaint: FALL Nursing Triage Note: PT ARRIVED PER EMS, PT CO OF TRIPPING AND FALLING, PT HIT HEAD ON BOX, PT HAS C-COLLAR IN PLACE. PT CO OF PAIN ALL OVER Source: patient Exam Limitations: no limitations History of Present Illness Date Seen by Provider: Jun 09, 2022 Time Seen by Provider: 18:00 Initial Comments Patient is a 71-year-old female who presents to the emergency department via EMS for evaluation after a mechanical fall. Patient states she tripped and hit her head on the boxes and the left side of her body on the floor. She denies any loss of consciousness. EMS state patient was stable in route. Patient had a c- collar placed by EMS. Denies any nausea/vomiting. Allergies and Home Medications Allergies Coded Allergies: black cohosh (Verified Allergy, Unknown, 01/07/22) glyburide (Verified Allergy, Unknown, 01/07/22) isosorbide (Verified Allergy, Unknown, 01/07/22) Uncoded Allergies: ARCABOSE (Allergy, Mild, Abdominal Pain, 10/01/19) GAS PAINS Patient Home Medication List Home Medication List Reviewed: Yes Acetaminophen (Acetaminophen) 500 Mg Tablet, 1,000 MG PO DAILY PRN, (Reported) Entered as Reported by: CORI CHRISTINA on 06/14/19 0736 Atorvastatin Calcium (Atorvastatin Calcium) 80 Mg Tablet, 80 MG PO HS, (Reported) Entered as Reported by: ANGELY MATOS on 12/21/18 0855 Calcium Carbonate/Vitamin D3 (Calcium 500 + Vit D Caplet) 1 Each Tablet, 1 TAB PO BID, (Reported) Entered as Reported by: ANGELY MATOS on 08/08/15 0857 Cetirizine HCl (Zyrtec) 10 Mg Tablet, 10 MG PO DAILY, (Reported) Entered as Reported by: ANGELY MATOS on 11/30/18 0959 Cholecalciferol (Vitamin D3) (Vitamin D3) 25 Mcg Tablet, 25 MCG PO 1200, (Reported) Entered as Reported by: PATRIC MCMANUS on 02/06/20 1619 Cyclosporine (Restasis) 1 Each Droperette, 1 DROP OU BID, (Reported) Entered as Reported by: CORI CHRISTINA on 06/14/19 0754 Diltiazem HCl (Diltiazem 24Hr ER) 360 Mg Cap.er.24h, 360 MG PO DAILY, (Reported) Entered as Reported by: PATRIC MCMANUS on 02/06/20 161 Dofetilide (Dofetilide) 250 Mcg Capsule, 250 MCG PO BID, (Reported) Entered as Reported by: PATRIC MCMANUS on 02/06/20 161 Famotidine (Pepcid) 20 Mg Tablet, 20 MG PO DAILY PRN for HEARTBURN, (Reported) Entered as Reported by: ANGELY MATOS on 05/21/19 0914 Ferrous Sulfate (Ferrous Sulfate) 325 Mg Tablet, 325 MG PO 1800, (Reported) Entered as Reported by: ANGELY MATOS on 11/30/18 0959 Fluticasone/Vilanterol (Breo Ellipta 200-25 Mcg INH) 1 Each Blst.w.dev, 1 EACH IH DAILY, (Reported) Entered as Reported by: CORI CHRISTINA on 06/14/19 0733 Gabapentin (Gabapentin) 800 Mg Tablet, 800 MG PO QID, (Reported) Entered as Reported by: ANGELY MATOS on 11/30/18 0959 Glucosam/Chond/Hyalu/Cf Borate (Move Free Joint Health Tablet) 1 Each Tablet, 1 EACH PO BID, (Reported) Entered as Reported by: PATRIC MCMANUS on 02/06/20 161 Hydroxyzine HCl (Hydroxyzine HCl) 10 Mg Tablet, 10 MG PO TID, (Reported) Entered as Reported by: CORI CHRISTINA on 06/14/19 0738 Imipramine HCl (Imipramine HCl) 50 Mg Tablet, 50 MG PO HS, (Reported) Entered as Reported by: ANGELY MATOS on 11/30/18 0959 Insulin Aspart (Novolog Flexpen) 300 Units/3 Ml Solution, 5-6 UNITS SQ TIDAC, (Reported) Entered as Reported by: ANGELY MATOS on 08/08/15 0857 Insulin Glargine,Hum.rec.anlog (Lantus) 100 Unit/1 Ml Vial, 18 UNIT SQ HS, (Reported) Entered as Reported by: ANGELY MATOS on 08/08/15 0857 Lactobacillus Rhamnosus GG (Culturelle) 1 Each Capsule, 1 CAP PO DAILY PRN for WHILE TAKING ANTIBIOTICS, (Reported) Entered as Reported by: ANGELY MATOS on 05/21/19 0914 Lisinopril (Lisinopril) 20 Mg Tablet, 20 MG PO DAILY, (Reported) Entered as Reported by: ANGELY MATOS on 11/30/18 0959 Metformin HCl (Metformin HCl) 1,000 Mg Tablet, 1,000 MG PO BID WITH MEALS, (Reported) Entered as Reported by: CORI CHRISTINA on 06/14/19 0730 Metoprolol Succinate (Metoprolol Succinate) 50 Mg Tab.er.24h, 50 MG PO DAILY, (Reported) Entered as Reported by: PATRIC MCMANUS on 02/06/20 1619 Mineral Oil/Petrolatum,White (Refresh Lacri-Lube Ointment) 3.5 Gm Oint...g., OU HS, (Reported) Entered as Reported by: ANGELY MATOS on 08/08/15 0857 Mirabegron (Myrbetriq) 50 Mg Tab.er.24h, 50 MG PO DAILY, (Reported) Entered as Reported by: PATRIC MCMANUS on 04/13/19 1112 Multivitamin (Multi-Vitamin Daily) 1 Each Tablet, 1 EACH PO DAILY, (Reported) Entered as Reported by: CORI CHRISTINA on 06/14/19 0742 Nitrofurantoin Macrocrystal (Nitrofurantoin) 100 Mg Capsule, 100 MG PO 1800, (Reported) Entered as Reported by: CORI CHRISTINA on 06/14/19 0741 [place] 3 Polyunsat Fatty Acids (Fish Oil 1,000 mg Capsule) 1,000 Mg Cap, 1,000 MG PO TID, (Reported) Entered as Reported by: ANGELY MATOS on 11/30/18 0959 Oxycodone HCl/Acetaminophen (Percocet 10-325 mg Tablet) 1 Each Tablet, 1 TAB PO EVERY 4-6 HOURS PRN for PAIN-MODERATE (5-7), (Reported) Entered as Reported by: ANGELY MATOS on 05/21/19 0914 Pantoprazole Sodium (Protonix) 40 Mg Tablet.dr, 40 MG PO DAILY Prescribed by: CALEB ALVARADO on 10/06/21 1410 Polyethylene Glycol 3350 (Miralax) 17 Gm Powd.pack, 17 GM PO DAILY PRN for CONSTIPATION-1ST LINE, (Reported) Entered as Reported by: ANGELY MATOS on 11/30/18 0959 Polyvinyl Alcohol/Povidone (Artificial Tears Drops) 15 Ml Drops, 2 DROPS OU Q4H PRN for DRY EYES, (Reported) Entered as Reported by: CORI CHRISTINA on 06/14/19 0752 Prasugrel HCl (Prasugrel HCl) 10 Mg Tablet, 10 MG PO MoWe, (Reported) Entered as Reported by: ANGELY MATOS on 12/21/18 0855 Primidone (Mysoline) 250 Mg Tablet, 250 MG PO TID, (Reported) Entered as Reported by: PATRIC MCMANUS on 04/13/19 1112 Solifenacin Succinate (Vesicare) 10 Mg Tablet, 10 MG PO 1600, (Reported) Entered as Reported by: PATRIC MCMANUS on 04/23/19 0927 Venlafaxine HCl (Venlafaxine HCl ER) 150 Mg Cap.er.24h, 150 MG PO DAILY, (Reported) Entered as Reported by: PATRIC MCMANUS on 02/06/20 1625 Review of Systems Review of Systems Constitutional: no symptoms reported Eyes: No Symptoms Reported Ears, Nose, Mouth, Throat: no symptoms reported Respiratory: no symptoms reported Cardiovascular: no symptoms reported Gastrointestinal: no symptoms reported Genitourinary: no symptoms reported Musculoskeletal: see HPI, joint pain Skin: no symptoms reported Psychiatric/Neurological: No Symptoms Reported Past Sstfdje-Agicvz-Qgevuh Hx Patient Social History Tobacco Use?: No Substance use?: No Alcohol Use?: No Pt feels they are or have been: No Immunizations Up To Date Tetanus Booster (TDap): Less than 5yrs PED Vaccines UTD: Yes Influenza Vaccine Up-to-Date: Yes; Up-to-Date First/Initial COVID19 Vaccinat: Y Second COVID19 Vaccination Primo: Y Third COVID19 Vaccination Date: Y Seasonal Allergies Seasonal Allergies: No Past Medical History Surgery/Hospitalization HX: SEE ATTATCHED COPY Surgeries: Yes (LAD STENTS PLACED NOVEMBER 2018) Cardiac, Coronary Stent, Eye Surgery, Orthopedic Respiratory: Yes Asthma, Sleep Apnea Currently Using CPAP: No Currently Using BIPAP: No Cardiac: Yes Atrial Fibrillation, Chronic Edema/Swelling, Coronary Artery Disease, Deep Vein Thrombosis, Heart Attack, High Cholesterol, Hypertension Neurological: Yes Neuropathy 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 Disorders: Yes Female 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 Disorders: Denies [employer] 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 History: Menopausal Sexually Transmitted Disease: No HIV/AIDS: No Genitourinary: Yes UTI-Chronic Gastrointestinal: Yes Gastroesophageal Reflux, Chronic Constipation Musculoskeletal: Yes (Charcot foot) Degenerate Disk Disease, Arthritis, Chronic Back Pain Endocrine: Yes (MORBID OBESITY) Diabetes, Insulin dep HEENT: Yes Cataract Loss of Vision: Bilateral Hearing Impairment: Denies Cancer: Yes Uterine Did You Recieve Any Treatments: Yes What Type of Treatment Did You: Surgical Intervention Psychosocial: Yes Anxiety, Depression Integumentary: No Blood Disorders: No Adverse Reaction/Blood Tranf: No Family Medical History Cardiovascular disease 19 FATHER 19 MOTHER Colon cancer 19 FATHER 19 MOTHER Colon cancer 19 FATHER 19 MOTHER Diabetes mellitus 19 MOTHER G8 BROTHER G8 SISTER Myocardial infarction 19 FATHER No Pertinent Family Hx Physical Exam Vital Signs Vital Signs - First Documented 06/09/22 18:00 Temp 36.0 Pulse 96 Resp 18 B/P (MAP) 130/80 (97) Pulse Ox 99 O2 Delivery Room Air Capillary Refill : Less Than 3 Seconds Height, Weight, BMI Height: 5'10.50" Weight: 302lbs. 0.0oz. 136.712544tk; 43.00 BMI Method:Stated General Appearance: WD/WN, no apparent distress HEENT: PERRL/EOMI, normal ENT inspection, TMs normal, pharynx normal Neck: non-tender, full range of motion, supple, normal inspection Cardiovascular: regular rate, rhythm Respiratory: chest non-tender, lungs clear, normal breath sounds Gastrointestinal: normal bowel sounds, non tender, soft Neurologic/Psychiatric: no motor/sensory deficits, alert, normal mood/affect, oriented x 3 Skin: normal color, warm/dry Heather Coma Score Best Eye Response: (4) Open Spontaneously Best Verbal Response: (5) Oriented Best Motor Response: (6) Obeys Commands Heather Total: 15 Progress/Results/Core Measures Results/Orders Lab Results Laboratory Tests Test 06/09/22 18:18 Range/Units White Blood Count 8.3 4.3-11.0 10^3/uL Red Blood Count 4.41 3.80-5.11 10^6/uL Hemoglobin 13.0 11.5-16.0 g/dL Hematocrit 40 35-52 % Mean Corpuscular Volume 90 80-99 fL Mean Corpuscular Hemoglobin 30 25-34 pg Mean Corpuscular Hemoglobin Concent 33 32-36 g/dL Red Cell Distribution Width 15.0 H 10.0-14.5 % Platelet Count 287 130-400 10^3/uL Mean Platelet Volume 9.9 9.0-12.2 fL Immature Granulocyte % (Auto) 0 % Neutrophils (%) (Auto) 59 42-75 % Lymphocytes (%) (Auto) 29 12-44 % Monocytes (%) (Auto) 7 0-12 % Eosinophils (%) (Auto) 4 0-10 % Basophils (%) (Auto) 0 0-10 % Neutrophils # (Auto) 4.9 1.8-7.8 10^3/uL Lymphocytes # (Auto) 2.4 1.0-4.0 10^3/uL Monocytes # (Auto) 0.6 0.0-1.0 10^3/uL Eosinophils # (Auto) 0.4 H 0.0-0.3 10^3/uL Basophils # (Auto) 0.0 0.0-0.1 10^3/uL Immature Granulocyte # (Auto) 0.0 0.0-0.1 10^3/uL Prothrombin Time 26.1 H 12.2-14.7 SEC INR Comment 2.3 H 0.8-1.4 Activated Partial Thromboplast Time 40 H 24-35 SEC Sodium Level 136 135-145 MMOL/L Potassium Level 4.5 3.6-5.0 MMOL/L Chloride Level 101 98-107 MMOL/L Carbon Dioxide Level 23 21-32 MMOL/L Anion Gap 12 5-14 MMOL/L Blood Urea Nitrogen 20 H 7-18 MG/DL Creatinine 0.84 0.60-1.30 MG/DL Estimat Glomerular Filtration Rate 75 BUN/Creatinine Ratio 24 Glucose Level 186 H 70-105 MG/DL Calcium Level 8.9 8.5-10.1 MG/DL Corrected Calcium 9.1 8.5-10.1 MG/DL Total Bilirubin 0.1 0.1-1.0 MG/DL Aspartate Amino Transf (AST/SGOT) 25 5-34 U/L Alanine Aminotransferase (ALT/SGPT) 45 0-55 U/L Alkaline Phosphatase 158 H 40-136 U/L Total Protein 7.2 6.4-8.2 GM/DL Albumin 3.7 3.2-4.5 GM/DL My Orders Orders - TARAH YE FIELD SOFTWARE ENGINEER Cbc With Automated Diff (06/09/22 18:12) Comprehensive Metabolic Panel (06/09/22 18:12) Iv/Invasive Line Insertion .IV INSERT (06/09/22 18:12) Protime With Inr (06/09/22 18:12) Partial Thromboplastin Time (06/09/22 18:12) Shoulder, Left, 3 Views (06/09/22 18:12) Forearm, Left, 2 Views (06/09/22 18:12) Knee, Left, 3 Views (06/09/22 18:12) Pelvis With Left Hip 2-3 Views (06/09/22 18:12) Morphine Injection (Morphine Injection (06/09/22 18:12) Ct Head/Cervical Spine Wo (06/09/22 18:12) Ua Culture If Indicated (06/09/22 20:03) Vital Signs/I&O 06/09/22 06/09/22 18:00 18:00 Temp 36.0 36.0 Pulse 96 96 Resp 18 18 B/P (MAP) 130/80 (97) 130/80 (97) Pulse Ox 99 99 O2 Delivery Room Air Blood Pressure Mean: 97 Progress Progress Note : Progress Note Patient is nontoxic and well-hydrated on exam. No adventitious lung sounds or increased work of breathing noted. Neurologic exam is nonfocal. Patient does have some contusions noted to the posterolateral left shoulder. She also has a small abrasion to the left forearm. No other significant injuries noted on primary or secondary surveys. Orders placed for CBC, CMP, IV insertion, PT/PTT, radiographs of the left shoulder/left forearm/left hip/left knee, and CT of the head/neck. CBC without concerning findings. CMP also without concerning findings. INR is elevated as expected given patient is on Coumadin. Plain films of the left shoulder, left forearm, left hip, and left knee are all acutely negative for osseous injury. CT of the head and neck are also acutely negative. Patient was given an IV dose of morphine with subsequent improvement in pain. Patient then states she is concerned regarding a UTI that she was diagnosed with on May 14 at her PCPs office. She was told the UTI was resistant to several medications and that she would likely need IV antibiotics. She asked if these could be started while she is here. I informed her that this would need to be set up by her PCP and that there is no indication for admission at this time given reassuring labs and radiologic work-up. We will obtain a urinalysis here to help further guide any possible antimicrobial therapy in the future. Patient does not have any leukocytosis or systemic evidence of any significant infection warranting further diagnostics. Follow-up with PCP. Return precautions for urgent symptomology discussed. Patient verbalized understanding. Departure Impression Primary Impression: Fall Qualified Codes: W19.XXXA - Unspecified fall, initial encounter Additional Impression: Multiple contusions Disposition: HOME, SELF-CARE Condition: Stable Departure-Patient Inst. Decision time for Depature: 20:40 Referrals: DELIA TRIANA MD (PCP) Primary Care Physician [facility] (Family) Primary Care Physician Patient Instructions: Minor Contusion ED, Preventing Falls ED Add. Discharge Instructions: It is very important you follow-up with PCP for further evaluation of your existing UTI as well as treatment options. All discharge instructions reviewed with patient and/or family. Voiced understanding. TARAH YE FIELD SOFTWARE ENGINEER Jun 09, 2022 18:23
[2022-06-09 18:31] LABS: ALBUMIN 3.7 GM/DL (3.2-4.5); POTASSIUM 4.5 MMOL/L (3.6-5.0)
[2022-06-09 18:32] LABS: CALCIUM 8.9 MG/DL (8.5-10.1)
[2022-06-09 18:33] LABS: TOTAL PROTEIN 7.2 GM/DL (6.4-8.2)
[2022-06-09 18:35] LABS: BILIRUBIN,TOTAL 0.1 MG/DL (0.1-1.0)
[2022-06-09 18:37] LABS: CREATININE SERUM 0.84 MG/DL (0.60-1.30)
[2022-06-09 18:43] LABS: INR 2.3 (0.8-1.4); PROTHROMBIN TIME PATIENT 26.1 SEC (12.2-14.7)
--- NOTE | 2022-06-09 19:07 | Diagnostic Imaging Report ---
HISTORY: Status post fall, pain. EXAMINATION: Pelvis and left hip from 06/09/2022. FINDINGS: 3 views of the pelvis and left hip. There is no fracture or dislocation. Joint spaces maintained. IUD incidentally noted in the pelvis. IMPRESSION: No acute osseous abnormality. Dictated by: Dictated on workstation # [id number]
--- NOTE | 2022-06-09 19:09 | Diagnostic Imaging Report ---
INDICATION: Fall, pain. EXAMINATION: Left knee, 06/09/2022. FINDINGS: 3 views of the knee. Severe medial and patellofemoral narrowing with sclerosis and spurring noted. Moderate narrowing and spurring noted in the lateral joint compartment. There is no fracture or dislocation. Loose body seen about the joint. Postoperative changes incidentally noted. There is a small suprapatellar effusion. Atherosclerotic disease is seen as well. IMPRESSION: Severe degenerative findings, as above. No acute osseous abnormality. Dictated by: Dictated on workstation # [id number]
--- NOTE | 2022-06-09 19:11 | Diagnostic Imaging Report ---
INDICATION: Fall, pain. EXAMINATION: Left shoulder, 06/09/2022. FINDINGS: 3 views of the shoulder. There is fat stranding within the subcutaneous soft tissues overlying the left shoulder, presumably hematoma. No underlying fracture or dislocation. Degenerative findings noted clinically at the acromioclavicular joint space. Loop recorder device overlies the left chest. IMPRESSION: 1. Chronic findings with no acute osseous abnormality. 2. Likely subcutaneous contusion or hematoma overlying the shoulder. Dictated by: Dictated on workstation # [id number]
--- NOTE | 2022-06-09 19:12 | Diagnostic Imaging Report ---
INDICATION: Fall, pain. EXAMINATION: Left forearm, 06/09/2022. COMPARISON: 09/16/2020. FINDINGS: 2 views of the forearm. There are degenerative changes at the wrist and visualized hand. No acute fracture or dislocation. IMPRESSION: No acute osseous abnormality. Dictated by: Dictated on workstation # [id number]
--- NOTE | 2022-06-09 19:30 | Diagnostic Imaging Report ---
INDICATION: Status post fall on anticoagulation. Pain. EXAMINATION: CT brain and CT cervical spine, 06/09/2022. All CT scans use one or more of the following dose optimizing techniques: automated exposure control, MA and/or KvP adjustment based on patient size and exam type or iterative reconstruction. COMPARISON: 09/16/2020. FINDINGS: CT BRAIN: There are mild chronic ischemic changes in a periventricular distribution. No superimposed acute hemorrhage or infarct is seen with no mass mass effect or midline shift. There is no hydrocephalus. Calvarium intact. Paranasal sinuses and mastoid air cells are clear. IMPRESSION: No acute intracranial process. CT CERVICAL SPINE: Grade 1 anterolisthesis noted at C5-C6. Remaining alignment is maintained. There is no acute fracture. Multilevel facet hypertrophy noted, bilaterally. Prevertebral soft tissues appear unremarkable. Lung apices unremarkable. IMPRESSION: Degenerative findings with no acute osseous abnormality. Dictated by: Dictated on workstation # [id number]
[2022-06-09 20:40] LABS: BILIRUBIN,URINE NEGATIVE (NEGATIVE); CLARITY,URINE CLOUDY; COLOR,URINE YELLOW; GLUCOSE, URINE (UA) NEGATIVE (NEGATIVE); KETONES,URINE NEGATIVE (NEGATIVE); LEUKOCYTE ESTERASE ,URINE 3+ (NEGATIVE); NITRITE,URINE NEGATIVE (NEGATIVE); PROTEIN,URINE TRACE (NEGATIVE)
[2022-06-09 21:02] LABS: BACTERIA,URINE MODERATE /HPF; SQUAMOUS EPITHELIAL CELL,UR RARE /HPF; WBC,URINE TNTC /HPF
[2022-06-09 21:20] VITALS: BP 120/70
== END 2022-06-09 21:24 | disposition home or self-care (01) ==
LOC: EDUNIT# 18:01 → ER 18:02
DX: S40.012A Contusion of left shoulder, initial encounter (principal); S50.812A Abrasion of left forearm, initial encounter; R79.1 Abnormal coagulation profile; E66.01 Morbid (severe) obesity due to excess calories; Z68.41 Body mass index [BMI] 40.0-44.9, adult; W01.198A Fall on same level from slipping, tripping and stumbling with subsequent striking against other object, initial encounter
CPT/HCPCS: 36415; 70450; 72125; 73030; 73090; 73562; 80053; 81000; 85025; 85610; 85730; 87088

== ENCOUNTER → 2022-06-29 | Outpatient (CLI) | payer MEDICARE, MEDICAID | LOC: ORTHO 11:22 | PROVIDERS: ATTEND Orthopaedic Surgery | DX: M17.0 Bilateral primary osteoarthritis of knee (principal) ==

== ENCOUNTER 2022-08-09 15:05 | Outpatient (RCR) | payer MEDICARE, MEDICAID | END 2022-08-13 | disposition home or self-care (01) | PROVIDERS: ATTEND Internal Medicine | DX: M54.16 Radiculopathy, lumbar region (principal); R53.1 Weakness; M19.90 Unspecified osteoarthritis, unspecified site; I10 Essential (primary) hypertension; E11.9 Type 2 diabetes mellitus without complications ==

== ENCOUNTER 2022-08-16 23:53 | Emergency (ER) | payer MEDICARE, MEDICAID ==
[~2022-08-16] VITALS: Ht 157.4 cm; Wt 128.3 kg
[2022-08-17] MEDS ORDERED: ONDANSETRON 4 MG/2 ML (SDV) Z0FRAN IVP ONE
[2022-08-17] MEDS ORDERED: LIDOCAINE UROJET 2% GEL 10 ML PKG TOP ONE
--- NOTE | 2022-08-17 00:08 | ED General ---
General Chief Complaint: Head/Cervical Problems Stated Complaint: WEAKNESS Nursing Triage Note: PT ARRIVED BY [facility] WITH CC OF SEVERE HEADACHE THAT STARTED THIS MORNING. PT STARTED HAVING N/V AT 2200 TONIGHT. PT STATES THAT SHE HAS NOT TAKEN ANY OF HER MEDS TODAY. Source of Information: Patient (EXTREMELY DIFFICULT HISTORIAN) (CALLUM ALCAZAR DO) Allergies and Home Medications Allergies Coded Allergies: black cohosh (Verified Allergy, Unknown, 01/07/22) glyburide (Verified Allergy, Unknown, 01/07/22) isosorbide (Verified Allergy, Unknown, 01/07/22) Uncoded Allergies: ARCABOSE (Allergy, Mild, Abdominal Pain, 10/01/19) GAS PAINS Patient Home Medication List Acetaminophen (Acetaminophen) 500 Mg Tablet, 1,000 MG PO DAILY PRN, (Reported) Entered as Reported by: CORI CHRISTINA on 06/14/19 0736 Atorvastatin Calcium (Atorvastatin Calcium) 80 Mg Tablet, 80 MG PO HS, ( Reported) Entered as Reported by: ANGELY MATOS on 12/21/18 0855 Calcium Carbonate/Vitamin D3 (Calcium 500 + Vit D Caplet) 1 Each Tablet, 1 TAB PO BID, (Reported) Entered as Reported by: ANGLEY MATOS on 08/08/15 0857 Cefdinir (Cefdinir) 300 Mg Capsule, 300 MG PO BID Prescribed by: CALLUM ALCAZAR on 08/17/22 0208 Cetirizine HCl (Zyrtec) 10 Mg Tablet, 10 MG PO DAILY, (Reported) Entered as Reported by: ANGELY MATOS on 11/30/18 0959 Cholecalciferol (Vitamin D3) (Vitamin D3) 25 Mcg Tablet, 25 MCG PO 1200, (Reported) Entered as Reported by: PATRIC MCMANUS on 02/06/20 1619 Cyclosporine (Restasis) 1 Each Droperette, 1 DROP OU BID, (Reported) Entered as Reported by: CORI CHRISTINA on 06/14/19 0754 Diltiazem HCl (Diltiazem 24Hr ER) 360 Mg Cap.er.24h, 360 MG PO DAILY, (Reported) Entered as Reported by: PATRIC MCMANUS on 02/06/20 1619 Dofetilide (Dofetilide) 250 Mcg Capsule, 250 MCG PO BID, (Reported) Entered as Reported by: PATRIC MCMANUS on 02/06/20 161 Famotidine (Pepcid) 20 Mg Tablet, 20 MG PO DAILY PRN for HEARTBURN, (Reported) Entered as Reported by: ANGELY MATOS on 05/21/19 0914 Ferrous Sulfate (Ferrous Sulfate) 325 Mg Tablet, 325 MG PO 1800, (Reported) Entered as Reported by: ANGELY MATOS on 11/30/18 09 Fluticasone/Vilanterol (Breo Ellipta 200-25 Mcg INH) 1 Each Blst.w.dev, 1 EACH IH DAILY, (Reported) Entered as Reported by: CORI CHRISTINA on 06/14/19 0733 Gabapentin (Gabapentin) 800 Mg Tablet, 800 MG PO QID, (Reported) Entered as Reported by: ANGELY MATOS on 11/30/18 09 Glucosam/Chond/Hyalu/Cf Borate (Move Free Joint Health Tablet) 1 Each Tablet, 1 EACH PO BID, (Reported) Entered as Reported by: PATRIC MCMANUS on 02/06/20 161 Hydroxyzine HCl (Hydroxyzine HCl) 10 Mg Tablet, 10 MG PO TID, (Reported) Entered as Reported by: CORI CHRISTINA on 06/14/19 0738 Imipramine HCl (Imipramine HCl) 50 Mg Tablet, 50 MG PO HS, (Reported) Entered as Reported by: ANGELY MATOS on 11/30/18 09 Insulin Aspart (Novolog Flexpen) 300 Units/3 Ml Solution, 5-6 UNITS SQ TIDAC, (Reported) Entered as Reported by: ANGELY MATOS on 08/08/15 0857 Insulin Glargine,Hum.rec.anlog (Lantus) 100 Unit/1 Ml Vial, 18 UNIT SQ HS, (Reported) Entered as Reported by: ANGELY MATOS on 08/08/15 08 Lactobacillus Rhamnosus GG (Culturelle) 1 Each Capsule, 1 CAP PO DAILY PRN for WHILE TAKING ANTIBIOTICS, (Reported) Entered as Reported by: ANGELY MATOS on 05/21/19 0914 Lisinopril (Lisinopril) 20 Mg Tablet, 20 MG PO DAILY, (Reported) Entered as Reported by: ANGELY MATOS on 11/30/18 09 Metformin HCl (Metformin HCl) 1,000 Mg Tablet, 1,000 MG PO BID WITH MEALS, (Reported) Entered as Reported by: CORI CHRISTINA on 06/14/19 0730 Metoprolol Succinate (Metoprolol Succinate) 50 Mg Tab.er.24h, 50 MG PO DAILY, (Reported) Entered as Reported by: PATIRC MCMANUS on 02/06/20 1619 Mineral Oil/Petrolatum,White (Refresh Lacri-Lube Ointment) 3.5 Gm Oint...g., OU HS, (Reported) Entered as Reported by: ANGELY MATOS on 08/08/15 0857 Mirabegron (Myrbetriq) 50 Mg Tab.er.24h, 50 MG PO DAILY, (Reported) Entered as Reported by: PATRIC MCMANUS on 04/13/19 1112 Multivitamin (Multi-Vitamin Daily) 1 Each Tablet, 1 EACH PO DAILY, (Reported) Entered as Reported by: CORI CHRISTINA on 06/14/19 0742 Nitrofurantoin Macrocrystal (Nitrofurantoin) 100 Mg Capsule, 100 MG PO 1800, (Reported) Entered as Reported by: CORI CHRISTINA on 06/14/19 0741 [place] 3 Polyunsat Fatty Acids (Fish Oil 1,000 mg Capsule) 1,000 Mg Cap, 1,000 MG PO TID, (Reported) Entered as Reported by: ANGELY MTAOS on 11/30/18 0959 Ondansetron (Ondansetron Odt) 4 Mg Tab.rapdis, 4 MG PO Q4H Prescribed by: CALLUM ALCAZAR on 08/17/22 0208 Oxycodone HCl/Acetaminophen (Percocet 10-325 mg Tablet) 1 Each Tablet, 1 TAB PO EVERY 4-6 HOURS PRN for PAIN-MODERATE (5-7), (Reported) Entered as Reported by: ANGELY MATOS on 05/21/19 0914 Pantoprazole Sodium (Protonix) 40 Mg Tablet.dr, 40 MG PO DAILY Prescribed by: CALEB ALVARADO on 10/06/21 1410 Polyethylene Glycol 3350 (Miralax) 17 Gm Powd.pack, 17 GM PO DAILY PRN for CONSTIPATION-1ST LINE, (Reported) Entered as Reported by: ANGELY MATOS on 11/30/18 0959 Polyvinyl Alcohol/Povidone (Artificial Tears Drops) 15 Ml Drops, 2 DROPS OU Q4H PRN for DRY EYES, (Reported) Entered as Reported by: CORI CHRISTINA on 06/14/19 0752 Prasugrel HCl (Prasugrel HCl) 10 Mg Tablet, 10 MG PO MoWe, (Reported) Entered as Reported by: ANGELY MATOS on 12/21/18 0855 Primidone (Mysoline) 250 Mg Tablet, 250 MG PO TID, (Reported) Entered as Reported by: PATRIC MCMANUS on 04/13/19 1112 Solifenacin Succinate (Vesicare) 10 Mg Tablet, 10 MG PO 1600, (Reported) Entered as Reported by: PATRIC MCMANUS on 04/23/19 0927 Venlafaxine HCl (Venlafaxine HCl ER) 150 Mg Cap.er.24h, 150 MG PO DAILY, (Reported) Entered as Reported by: PATRIC MCMANUS on 02/06/20 1625 Past Ytcrmjj-Grmswc-Aenkvi Hx Patient Social History Tobacco Use?: No Smoking Status: Former Smoker Substance use?: No Alcohol Use?: No (CALLUM ALCAZAR DO) Immunizations Up To Date Tetanus Booster (TDap): Less than 5yrs PED Vaccines UTD: Yes First/Initial COVID19 Vaccinat: Y Second COVID19 Vaccination Primo: Y Third COVID19 Vaccination Date: Y (CALLUM ALCAZAR DO) Seasonal Allergies Seasonal Allergies: No (CALLUM ALCAZAR DO) Past Medical History Surgery/Hospitalization HX: SEE ATTATCHED COPY Surgeries: Yes (LAD STENTS PLACED NOVEMBER 2018) Cardiac, Coronary Stent, Eye Surgery, Orthopedic Respiratory: Yes Asthma, Sleep Apnea Currently Using CPAP: No Currently Using BIPAP: No Cardiac: Yes Atrial Fibrillation, Chronic Edema/Swelling, Coronary Artery Disease, Deep Vein Thrombosis, Heart Attack, High Cholesterol, Hypertension Neurological: Yes Neuropathy 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 Disorders: Yes Female 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 Disorders: Denies [employer] History: Menopausal Sexually Transmitted Disease: No HIV/AIDS: No Genitourinary: Yes UTI-Chronic Gastrointestinal: Yes Gastroesophageal Reflux, Chronic Constipation Musculoskeletal: Yes (Charcot foot) Degenerate Disk Disease, Arthritis, Chronic Back Pain Endocrine: Yes (MORBID OBESITY) Diabetes, Insulin dep HEENT: Yes Cataract Loss of Vision: Bilateral Hearing Impairment: Denies Cancer: Yes Uterine Did You Recieve Any Treatments: Yes What Type of Treatment Did You: Surgical Intervention Psychosocial: Yes Anxiety, Depression Integumentary: No Blood Disorders: No Adverse Reaction/Blood Tranf: No (CALLUM ALCAZAR DO) Family Medical History Cardiovascular disease 19 FATHER 19 MOTHER Colon cancer 19 FATHER 19 MOTHER Colon cancer 19 FATHER 19 MOTHER Diabetes mellitus 19 MOTHER G8 BROTHER G8 SISTER Myocardial infarction 19 FATHER No Pertinent Family Hx (CALLUM ALCAZAR DO) Physical Exam Vital Signs Vital Signs - First Documented 08/16/22 23:55 Temp 36.8 Pulse 101 B/P (MAP) 125/87 (100) Pulse Ox 93 O2 Delivery Nasal Cannula O2 Flow Rate 2.00 (SAMANTHA RUSSO MD) Vital Signs Capillary Refill : (CALLUM ALCAZAR DO) Height, Weight, BMI Height: 5'10.50" Weight: 302lbs. 0.0oz. 136.877491bj; 51.00 BMI Method:Stated (CALLUM ALCAZAR DO) Focused Exam Lactate Level 08/17/22 00:00: Lactic Acid Level 1.48 (SAMANTHA RUSSO MD) Lactic Acid Level Laboratory Tests Test 08/17/22 00:00 Lactic Acid Level 1.48 MMOL/L (0.50-2.00) (SAMANTHA RUSSO MD) Progress/Results/Core Measures Suspected Sepsis SIRS Temperature: Pulse: 101 Respiratory Rate: Laboratory Tests 08/17/22 00:00: White Blood Count 8.7 Blood Pressure 125 /87 Mean: 100 08/17/22 00:00: Lactic Acid Level 1.48 Laboratory Tests 08/17/22 00:00: Creatinine 0.82, INR Comment 3.6H, Platelet Count 319, Total Bilirubin 0.2 (CALLUM ALCAZAR DO) Results/Orders Lab Results Laboratory Tests Test 08/16/22 00:18 08/17/22 00:00 Range/Units Urine Color YELLOW Urine Clarity CLOUDY Urine pH 7.5 5-9 Urine Specific [place] 1.015 L 1.016-1.022 Urine Protein 1+ H NEGATIVE Urine Glucose (UA) NEGATIVE NEGATIVE Urine Ketones 2+ H NEGATIVE Urine Nitrite POSITIVE H NEGATIVE Urine Bilirubin NEGATIVE NEGATIVE Urine Urobilinogen 0.2 < = 1.0 MG/DL Urine Leukocyte Esterase 3+ H NEGATIVE Urine RBC (Auto) 3+ H NEGATIVE Urine RBC TNTC H /HPF Urine WBC TNTC H /HPF Urine Crystals NONE /LPF Urine Bacteria LARGE H /HPF Urine Casts NONE /LPF Urine Mucus NEGATIVE /LPF Urine Culture Indicated YES Urine Opiates Screen NEGATIVE NEGATIVE Urine Oxycodone Screen POSITIVE H NEGATIVE Urine Methadone Screen NEGATIVE NEGATIVE Urine Propoxyphene Screen NEGATIVE NEGATIVE Urine Barbiturates Screen POSITIVE H NEGATIVE Ur Tricyclic Antidepressants Screen NEGATIVE NEGATIVE Urine Phencyclidine Screen NEGATIVE NEGATIVE Urine Amphetamines Screen NEGATIVE NEGATIVE Urine Methamphetamines Screen NEGATIVE NEGATIVE Urine Benzodiazepines Screen NEGATIVE NEGATIVE Urine Cocaine Screen NEGATIVE NEGATIVE Urine Cannabinoids Screen NEGATIVE NEGATIVE White Blood Count 8.7 4.3-11.0 10^3/uL Red Blood Count 4.70 3.80-5.11 10^6/uL Hemoglobin 14.0 11.5-16.0 g/dL Hematocrit 41 35-52 % Mean Corpuscular Volume 87 80-99 fL Mean Corpuscular Hemoglobin 30 25-34 pg Mean Corpuscular Hemoglobin Concent 34 32-36 g/dL Red Cell Distribution Width 13.6 10.0-14.5 % Platelet Count 319 130-400 10^3/uL Mean Platelet Volume 9.6 9.0-12.2 fL Immature Granulocyte % (Auto) 0 % Neutrophils (%) (Auto) 72 42-75 % Lymphocytes (%) (Auto) 17 12-44 % Monocytes (%) (Auto) 7 0-12 % Eosinophils (%) (Auto) 3 0-10 % Basophils (%) (Auto) 0 0-10 % Neutrophils # (Auto) 6.2 1.8-7.8 10^3/uL Lymphocytes # (Auto) 1.5 1.0-4.0 10^3/uL Monocytes # (Auto) 0.6 0.0-1.0 10^3/uL Eosinophils # (Auto) 0.3 0.0-0.3 10^3/uL Basophils # (Auto) 0.0 0.0-0.1 10^3/uL Immature Granulocyte # (Auto) 0.0 0.0-0.1 10^3/uL Erythrocyte Sedimentation Rate 29 0-30 MM/HR Prothrombin Time 35.9 H 12.2-14.7 SEC INR Comment 3.6 H 0.8-1.4 Activated Partial Thromboplast Time 54 H 24-35 SEC Sodium Level 142 135-145 MMOL/L Potassium Level 4.3 3.6-5.0 MMOL/L Chloride Level 102 98-107 MMOL/L Carbon Dioxide Level 23 21-32 MMOL/L Anion Gap 17 H 5-14 MMOL/L Blood Urea Nitrogen 17 7-18 MG/DL Creatinine 0.82 0.60-1.30 MG/DL Estimat Glomerular Filtration Rate 77 BUN/Creatinine Ratio 21 Glucose Level 167 H 70-105 MG/DL Lactic Acid Level 1.48 0.50-2.00 MMOL/L Calcium Level 9.9 8.5-10.1 MG/DL Corrected Calcium 10.0 8.5-10.1 MG/DL Magnesium Level 1.7 1.6-2.4 MG/DL Total Bilirubin 0.2 0.1-1.0 MG/DL Aspartate Amino Transf (AST/SGOT) 29 5-34 U/L Alanine Aminotransferase (ALT/SGPT) 45 0-55 U/L Alkaline Phosphatase 165 H 40-136 U/L Total Creatine Kinase 28 L 29-168 U/L Creatine Kinase MB 0.5 <6.6 NG/ML Myoglobin 31.7 10.0-92.0 NG/ML Troponin I < 0.028 <0.028 NG/ML C-Reactive Protein High Sensitivity 2.83 H 0.00-0.50 MG/DL B-Type Natriuretic Peptide 16.7 <100.0 PG/ML Total Protein 8.1 6.4-8.2 GM/DL Albumin 3.9 3.2-4.5 GM/DL Amylase Level 22 L 25-125 U/L Lipase 7 L 8-78 U/L Serum Alcohol < 10 <10 MG/DL Influenza Type A (RT-PCR) Not Detected Not Detecte Influenza Type B (RT-PCR) Not Detected Not Detecte SARS-CoV-2 RNA (RT-PCR) Not Detected Not Detecte (SAMANTHA RUSSO MD) Vital Signs/I&O 08/16/22 08/17/22 08/17/22 23:55 00:00 02:18 Temp 36.8 Pulse 101 100 B/P (MAP) 125/87 (100) 151/87 Pulse Ox 93 98 O2 Delivery Nasal Cannula Nasal Cannula Room Air O2 Flow Rate 2.00 2.00 (SAMANTHA RUSSO MD) Vital Signs/I&O Capillary Refill : (CALLUM ALCAZAR DO) Blood Pressure Mean: 100 Progress Note : Progress Note VITALS STABLE NO CRITERIA FOR ADMIT, PT IS NOT SEPTIC. (CALLUM ALCAZAR DO) Progress Note : Time: 15:10 Progress Note 08/17/22 - patient called stating cefdinir was on backorder. I sent a prescription for cefpodoxime but was then notified by the pharmacy that patient actually had her prescription transferred to another pharmacy and was able to get it filled. I canceled the cefpodoxime order. (SAMANTHA RUSSO MD) Departure Impression Primary Impression: Urinary tract infection Disposition: HOME, SELF-CARE Condition: Stable Departure-Patient Inst. Decision time for Depature: 02:05 (CALLUM ALCAZAR DO) Referrals: DELIA TRIANA MD (PCP/Family) Primary Care Physician Patient Instructions: Urinary Tract Infection, Adult (DC) Add. Discharge Instructions: HOME, REST CONTINUE ALL YOUR MEDICATIONS PRESCRIBED FOLLOW UP WITH DR. TRIANA THIS WEEK FOR FURTHER CARE All discharge instructions reviewed with patient and/or family. Voiced understanding. Scripts Ondansetron (Ondansetron Odt) 4 Mg Tab.rapdis 4 MG PO Q4H for Nausea/Vomiting, #10 TAB Prov: CALLUM ALCAZAR DO 08/17/22 Cefdinir (Cefdinir) 300 Mg Capsule 300 MG PO BID, #20 CAP Prov: CALLUM ALCAZAR DO 08/17/22 CALLUM ALCAZAR DO Aug 17, 2022 00:08 SAMANTHA RUSSO MD Aug 17, 2022 15:13
[2022-08-17 00:26] LABS: BASOPHILS % (AUTO) 0 % (0-10); EOSINOPHILS # (AUTO) 0.3 10^3/uL (0.0-0.3); EOSINOPHILS % (AUTO) 3 % (0-10); HEMATOCRIT 41 % (35-52); LYMPHOCYTES # (AUTO) 1.5 10^3/uL (1.0-4.0); LYMPHOCYTES % (AUTO) 17 % (12-44); MEAN CORPUSCULAR HEMOGLOBIN 30 pg (25-34); MEAN CORPUSCULAR HGB CONC 34 g/dL (32-36); MEAN CORPUSCULAR VOLUME 87 fL (80-99); MEAN PLATELET VOLUME 9.6 fL (9.0-12.2); MONOCYTES # (AUTO) 0.6 10^3/uL (0.0-1.0); MONOCYTES % (AUTO) 7 % (0-12); NEUTROPHILS # (AUTO) 6.2 10^3/uL (1.8-7.8); NEUTROPHILS % (AUTO) 72 % (42-75); PLATELET COUNT 319 10^3/uL (130-400); WHITE BLOOD COUNT 8.7 10^3/uL (4.3-11.0)
[2022-08-17 00:31] LABS: INR 3.6 (0.8-1.4); PROTHROMBIN TIME PATIENT 35.9 SEC (12.2-14.7)
[2022-08-17 00:39] LABS: ALANINE AMINOTRANSFERASE 45 U/L (0-55); ALBUMIN 3.9 GM/DL (3.2-4.5); ALKALINE PHOSPHATASE 165 U/L (40-136); AMYLASE 22 U/L (25-125); BILIRUBIN,TOTAL 0.2 MG/DL (0.1-1.0); BUN/CREATININE RATIO 21; CALCIUM 9.9 MG/DL (8.5-10.1); CARBON DIOXIDE 23 MMOL/L (21-32); CHLORIDE 102 MMOL/L (98-107); CREATINE KINASE 28 U/L (29-168); CREATININE SERUM 0.82 MG/DL (0.60-1.30); GFR ESTIMATED 77; GLUCOSE 167 MG/DL (70-105); LIPASE 7 U/L (8-78); MAGNESIUM 1.7 MG/DL (1.6-2.4); POTASSIUM 4.3 MMOL/L (3.6-5.0); SODIUM 142 MMOL/L (135-145); TOTAL PROTEIN 8.1 GM/DL (6.4-8.2)
[2022-08-17 00:41] LABS: ERYTHROCYTE SEDIMENTATION RATE 29 MM/HR (0-30)
[2022-08-17 00:47] LABS: CREATINE KINASE MB 0.5 NG/ML (<6.6)
[2022-08-17 00:49] LABS: AMPHETAMINE SCREEN, URINE NEGATIVE (NEGATIVE); BENZODIAZEPINES SCREEN URINE NEGATIVE (NEGATIVE); CANNABINOID SCREEN, URINE NEGATIVE (NEGATIVE); COCAINE SCREEN URINE NEGATIVE (NEGATIVE); OPIATE SCREEN URINE NEGATIVE (NEGATIVE)
[2022-08-17 00:50] LABS: BARBITURATE SCREEN URINE POSITIVE (NEGATIVE); METHADONE STAT NEGATIVE (NEGATIVE); OXYCODONE STAT POSITIVE (NEGATIVE); PROPOXYPHENE STAT NEGATIVE (NEGATIVE); TRICYCLIC ANTIDEPRESSANTS SCRE NEGATIVE (NEGATIVE)
[2022-08-17 01:26] LABS: CLARITY,URINE CLOUDY; COLOR,URINE YELLOW; PH,URINE 7.5 (5-9)
[2022-08-17 01:27] LABS: BILIRUBIN,URINE NEGATIVE (NEGATIVE); GLUCOSE, URINE (UA) NEGATIVE (NEGATIVE); KETONES,URINE 2+ (NEGATIVE); NITRITE,URINE POSITIVE (NEGATIVE); PROTEIN,URINE 1+ (NEGATIVE)
[2022-08-17 01:28] LABS: BACTERIA,URINE LARGE /HPF; LEUKOCYTE ESTERASE ,URINE 3+ (NEGATIVE); RBC,URINE TNTC /HPF; WBC,URINE TNTC /HPF
[2022-08-17] MEDS ORDERED: CEFEPIME INJECTION 1,000 MG in NS (IVPB) 50 ML IV ONE (01:45)
[2022-08-17] MEDS ORDERED: cefTRIAXone 1 GM PRE-MIX 50 ML IV ONE (01:45)
[2022-08-17] MEDS ORDERED: diphenhydrAMINE 50 MG/ML INJ (BENADRYL) IVP ONE (02:00)
[2022-08-17] MEDS ORDERED: KETOROLAC 30 MG/ML VIAL IVP ONE (02:00)
[2022-08-17] MEDS ORDERED: RX-ONDANSETRON 4 MG ODT (ZOFRAN) PPK #4 PO STA (02:08)
[2022-08-17] MEDS ORDERED: CEFD300C3 PO (02:08)
[2022-08-17] MEDS ORDERED: ONDA4TAB11 PO (02:08)
[2022-08-17 02:18] VITALS: BP 151/87
--- NOTE | 2022-08-17 05:47 | Diagnostic Imaging Report ---
PROCEDURE: CT head wo r/o stroke. TECHNIQUE: Multiple contiguous axial images were obtained through the brain without the use of intravenous contrast. Auto Exposure Controls were utilized during the CT exam to meet ALARA standards for radiation dose reduction. INDICATION: 70-year-old female with headache and bodyaches, weakness. COMPARISONS: 06/09/2022 FINDINGS: Midline structures are not displaced. There are senescent changes to the brain with involutional changes and generalized atrophy. There are few scattered areas of nonspecific white matter changes seen. Nix-white differentiation is maintained and there is no sulcal effacement. There are no abnormal extra-axial fluid collections or hemorrhage. Basilar cisterns appear normal. There is some calcific atherosclerosis within the carotid siphons and to a lesser extent the visualized vertebral arteries. Sinuses, orbits and mastoid air cells are grossly normal. Bone widows show no calvarial changes. IMPRESSION:. Senescent brain with involutional changes and generalized atrophy may be slightly advanced for age. Some background chronic areas of microvascular ischemic change. There is some calcific atherosclerosis within the carotid siphons and visualized vertebral arteries. Additional nonemergent findings as described above. Agree with [place] report. Dictated by: Dictated on workstation # [id number]
--- NOTE | 2022-08-17 06:24 | Diagnostic Imaging Report ---
INDICATION: 71-year-old female with headache and bodyaches weakness. COMPARISONS: 03/24/2021 FINDINGS: Single view of the chest shows normal heart, pleura and diaphragms. There is some mild central venous congestion. This is accentuated by the portable technique and low lung volumes. Few scattered alveolar infiltrates are seen but no confluent consolidations. There is no effusion or pneumothorax. There is aortic calcific atherosclerosis. There is a loop recorder noted. Soft tissues and bony thorax are grossly unremarkable. There is a previous right rotator cuff repair. IMPRESSION: Heart size upper limits of normal with mild central venous congestion with few scattered alveolar infiltrates but no confluent consolidations. Dictated by: Dictated on workstation # [id number]
[2022-08-17] MEDS ORDERED: CEFP100T2 PO (15:09)
== END 2022-08-17 02:24 | disposition home or self-care (01) ==
LOC: EDUNIT# 23:53 → ER 23:54
DX: N39.0 Urinary tract infection, site not specified (principal); E66.01 Morbid (severe) obesity due to excess calories; E11.9 Type 2 diabetes mellitus without complications; Z79.4 Long term (current) use of insulin; Z87.891 Personal history of nicotine dependence; Z68.43 Body mass index [BMI] 50.0-59.9, adult; Z20.822 Contact with and (suspected) exposure to COVID-19
CPT/HCPCS: 36415; 51702; 70450; 71045; 80053; 80306; 80320; 81000; 82150; 82550; 82553; 83605; 83690; 83735; 83874; 83880; 84484; 85025; 85610; 85652; 85730; 86141; 87040; 87077; 87088; 87636; 93005; 93041

== ENCOUNTER → 2022-10-19 | Outpatient (CLI) | payer MEDICARE, MEDICAID ==
[~2022-10-19] MED LIST changes: +CEFD300C3 PO; +CEFP100T2 PO; +ONDA4TAB11 PO
== END ==
LOC: ORTHO 14:13
PROVIDERS: ATTEND Orthopaedic Surgery
DX: M17.0 Bilateral primary osteoarthritis of knee (principal); I10 Essential (primary) hypertension; I25.10 Atherosclerotic heart disease of native coronary artery without angina pectoris; E11.9 Type 2 diabetes mellitus without complications; E78.2 Mixed hyperlipidemia

== ENCOUNTER → 2022-11-25 | Outpatient (CLI) | payer MEDICARE, MEDICAID ==
[~2022-11-25] MED LIST changes: +RT-ALBUTEROL SULF 2.5 MG/3 ML PRE-MIX VIAL INH ONE
== END ==
LOC: RT 14:15
PROVIDERS: ATTEND Nurse Practitioner Family
DX: J45.40 Moderate persistent asthma, uncomplicated (principal)
CPT/HCPCS: 94060; 94726; 94729

== ENCOUNTER 2023-01-20 23:06 | Inpatient (IN) | payer MEDICARE, MEDICAID ==
[~2023-01-20] VITALS: Ht 180 cm; Wt 126.2 kg
[~2023-01-20 23:06] MED LIST changes: -GABA-490 PO; +GABA-491 PO; -RT-ALBUTEROL SULF 2.5 MG/3 ML PRE-MIX VIAL INH ONE
[2023-01-20] MEDS ORDERED: ACETAMINOPHEN 500 MG TABLET PO PRN (23:15)
[2023-01-20] MEDS ORDERED: NS IV 1000 ML 1,000 ML IV SCH (23:15)
[2023-01-20] MEDS ORDERED: LIDOCAINE UROJET 2% GEL 10 ML PKG TOP ONE (23:15)
--- NOTE | 2023-01-20 23:23 | ED General ---
General Chief Complaint: General Problems/Pain Stated Complaint: PAIN Nursing Triage Note: Patient to ER via [facility] c/o pain from increasing pain. EMS reports pain comes and goes. pain comes and goes. Pain is from the hips down. hx of afib. Source of Information: Patient (EXTREMELY DIFFICULT AND LIMITED HISTORIAN), Old Records (ALL PMH IS FROM OLD RECORDS) History of Present Illness Date Seen by Provider: Jan 20, 2023 Time Seen by Provider: 23:09 Initial Comments PT ARRIVES VIA EMS FROM HOME--PT LIVES AT HOME ALONE SHE HAS CHRONIC GENERALIZED PAIN, ON OXYCODONE--TOOK 1 AROUND DINNER TIME TONIGHT. PAIN HAS BEEN WORSE ALL DAY TODAY--PAIN IS WORST IN HER BACK, HIPS AND LEGS NO FALL OR RECENT INJURY OR UNUSUAL ACTIVITY NO NEW PARESTHESIAS OR MOTOR DEFICITS. PT HAS PERIPHERAL NEUROPATHY DENIES URINARY SYMPTOMS PT IS UNAWARE OF FEVER--TEMP IS 100.6 ON ARRIVAL AND HR IN 120'S, WITH HISTORY OF ATRIAL FIBRILLATION O NXARELTO DENIES COUGH OR RESPIRATORY SYMPTOMS DENIES GI SYMPTOMS DENIES HEADACHE PT IS ALSO INSULIN DEPENDENT DIABETIC, MORBIDLY OBESE, HAS HTN, HYPERLIPIDEMIA, CHRONIC UTI'S, CHRONIC ATRIAL FIBRILLATION SHE HAS BEEN ON COUMADIN--STATES HER INR YESTERDAY WAS 9, AND SHE HELD HER COUMADIN YESTERDAY AND TODAY. SHE STATES DR. JOSE IS GOING TO SWITCH HER TO XARELTO. ADDITIONALLY, SHE HAS CHRONIC RIGHT FOOT WOUND THAT SHE HAS BEEN SEEING DR. MORGAN WITH WOUND CARE IN [place]. PCP: [facility] [place], WAS DR. TRIANA UNTIL HIS RECENT LONGTERM Allergies and Home Medications Allergies Coded Allergies: black cohosh (Verified Allergy, Unknown, 01/07/22) glyburide (Verified Allergy, Unknown, 01/07/22) isosorbide (Verified Allergy, Unknown, 01/07/22) Uncoded Allergies: ARCABOSE (Allergy, Mild, Abdominal Pain, 10/01/19) GAS PAINS Patient Home Medication List Home Medication List Reviewed: Yes Acetaminophen (Acetaminophen) 500 Mg Tablet, 1,000 MG PO DAILY PRN, (Reported) Entered as Reported by: CORI CHRISTINA on 06/14/19 0736 Atorvastatin Calcium (Atorvastatin Calcium) 80 Mg Tablet, 80 MG PO HS, (Reported) Entered as Reported by: ANGELY MATOS on 12/21/18 0855 Calcium Carbonate/Vitamin D3 (Calcium 500 + Vit D Caplet) 1 Each Tablet, 1 TAB P O BID, (Reported) Entered as Reported by: ANGELY MATOS on 08/08/15 0857 Cefdinir (Cefdinir) 300 Mg Capsule, 300 MG PO BID Prescribed by: CALLUM ALCAZAR on 08/17/22 0208 Cetirizine HCl (Zyrtec) 10 Mg Tablet, 10 MG PO DAILY, (Reported) Entered as Reported by: ANGELY MATOS on 11/30/18 0959 Cholecalciferol (Vitamin D3) (Vitamin D3) 25 Mcg Tablet, 25 MCG PO 1200, (Reported) Entered as Reported by: PATRIC MCMANUS on 02/06/20 161 Cyclosporine (Restasis) 1 Each Droperette, 1 DROP OU BID, (Reported) Entered as Reported by: CORI CHRISTINA on 06/14/19 0754 Diltiazem HCl (Diltiazem 24Hr ER) 360 Mg Cap.er.24h, 360 MG PO DAILY, (Reported) Entered as Reported by: PATRIC MCMAUNS on 02/06/20 161 Dofetilide (Dofetilide) 250 Mcg Capsule, 250 MCG PO BID, (Reported) Entered as Reported by: PATRIC MCMANUS on 02/06/20 161 Famotidine (Pepcid) 20 Mg Tablet, 20 MG PO DAILY PRN for HEARTBURN, (Reported) Entered as Reported by: ANGELY MATOS on 05/21/19 0914 Ferrous Sulfate (Ferrous Sulfate) 325 Mg Tablet, 325 MG PO 1800, (Reported) Entered as Reported by: ANGELY MATOS on 11/30/18 0959 Fluticasone/Vilanterol (Breo Ellipta 200-25 Mcg INH) 1 Each Blst.w.dev, 1 EACH IH DAILY, (Reported) Entered as Reported by: CORI CHRISTINA on 06/14/19 0733 Gabapentin (Gabapentin) 800 Mg Tablet, 800 MG PO QID, (Reported) Entered as Reported by: ANGELY MATOS on 11/30/18 0959 Glucosam/Chond/Hyalu/Cf Borate (Move Free Joint Health Tablet) 1 Each Tablet, 1 EACH PO BID, (Reported) Entered as Reported by: PATRIC MCMANUS on 02/06/20 1619 Hydroxyzine HCl (Hydroxyzine HCl) 10 Mg Tablet, 10 MG PO TID, (Reported) Entered as Reported by: CORI CHRISTINA on 06/14/19 0738 Imipramine HCl (Imipramine HCl) 50 Mg Tablet, 50 MG PO HS, (Reported) Entered as Reported by: ANGELY MATOS on 11/30/18 0959 Insulin Aspart (Novolog Flexpen) 300 Units/3 Ml Solution, 5-6 UNITS SQ TIDAC, (Reported) Entered as Reported by: ANGELY MATOS on 08/08/15 0857 Insulin Glargine,Hum.rec.anlog (Lantus) 100 Unit/1 Ml Vial, 18 UNIT SQ HS, (Reported) Entered as Reported by: ANGELY MATOS on 08/08/15 0857 Lactobacillus Rhamnosus GG (Culturelle) 1 Each Capsule, 1 CAP PO DAILY PRN for WHILE TAKING ANTIBIOTICS, (Reported) Entered as Reported by: ANGELY MATOS on 05/21/19 0914 Lisinopril (Lisinopril) 20 Mg Tablet, 20 MG PO DAILY, (Reported) Entered as Reported by: ANGELY MATOS on 11/30/18 0959 Metformin HCl (Metformin HCl) 1,000 Mg Tablet, 1,000 MG PO BID WITH MEALS, (Reported) Entered as Reported by: CORI CHRISTINA on 06/14/19 0730 Metoprolol Succinate (Metoprolol Succinate) 50 Mg Tab.er.24h, 50 MG PO DAILY, (Reported) Entered as Reported by: PATRIC MCMANUS on 02/06/20 1619 Mineral Oil/Petrolatum,White (Refresh Lacri-Lube Ointment) 3.5 Gm Oint...g., OU HS, (Reported) Entered as Reported by: ANGELY MATOS on 08/08/15 0857 Mirabegron (Myrbetriq) 50 Mg Tab.er.24h, 50 MG PO DAILY, (Reported) Entered as Reported by: PATRIC MCMANUS on 04/13/19 1112 Multivitamin (Multi-Vitamin Daily) 1 Each Tablet, 1 EACH PO DAILY, (Reported) Entered as Reported by: CORI CHRISTINA on 06/14/19 0742 Nitrofurantoin Macrocrystal (Nitrofurantoin) 100 Mg Capsule, 100 MG PO 1800, (Reported) Entered as Reported by: CORI CHRISTINA on 06/14/19 0741 [place] 3 Polyunsat Fatty Acids (Fish Oil 1,000 mg Capsule) 1,000 Mg Cap, 1,000 MG PO TID, (Reported) Entered as Reported by: ANGELY MATOS on 11/30/18 0959 Ondansetron (Ondansetron Odt) 4 Mg Tab.rapdis, 4 MG PO Q4H Prescribed by: CALLUM ALCAZAR on 08/17/22 0208 Oxycodone HCl/Acetaminophen (Percocet 10-325 mg Tablet) 1 Each Tablet, 1 TAB PO EVERY 4-6 HOURS PRN for PAIN-MODERATE (5-7), (Reported) Entered as Reported by: ANGELY MATOS on 05/21/19 0914 Pantoprazole Sodium (Protonix) 40 Mg Tablet.dr, 40 MG PO DAILY Prescribed by: CALEB ALVARADO on 10/06/21 1410 Polyethylene Glycol 3350 (Miralax) 17 Gm Powd.pack, 17 GM PO DAILY PRN for CONSTIPATION-1ST LINE, (Reported) Entered as Reported by: ANGELY MATOS on 11/30/18 0959 Polyvinyl Alcohol/Povidone (Artificial Tears Drops) 15 Ml Drops, 2 DROPS OU Q4H PRN for DRY EYES, (Reported) Entered as Reported by: CORI CHRISTINA on 06/14/19 0752 Prasugrel HCl (Prasugrel HCl) 10 Mg Tablet, 10 MG PO MoWe, (Reported) Entered as Reported by: ANGELY MATOS on 12/21/18 0855 Primidone (Mysoline) 250 Mg Tablet, 250 MG PO TID, (Reported) Entered as Reported by: PATRIC MCMANUS on 04/13/19 1112 Solifenacin Succinate (Vesicare) 10 Mg Tablet, 10 MG PO 1600, (Reported) Entered as Reported by: PATRIC MCMANUS on 04/23/19 0927 Venlafaxine HCl (Venlafaxine HCl ER) 150 Mg Cap.er.24h, 150 MG PO DAILY, (Reported) Entered as Reported by: PATRIC MCMANUS on 02/06/20 1625 Review of Systems Review of Systems Constitutional: see HPI EENTM: no symptoms reported Respiratory: no symptoms reported Cardiovascular: no symptoms reported Gastrointestinal: no symptoms reported Genitourinary: no symptoms reported Musculoskeletal: see HPI Skin: no symptoms reported Psychiatric/Neurological: See HPI Past Brauqoh-Wsonlq-Proksv Hx Immunizations Up To Date Tetanus Booster (TDap): Less than 5yrs PED Vaccines UTD: Yes First/Initial COVID19 Vaccinat: Y Second COVID19 Vaccination Primo: Y Third COVID19 Vaccination Date: Y Seasonal Allergies Seasonal Allergies: No Past Medical History Surgery/Hospitalization HX: SEE BELOW Surgeries: Yes (LAD STENTS PLACED NOVEMBER 2018) Cardiac, Coronary Stent, Eye Surgery, Orthopedic Respiratory: Yes Asthma, Sleep Apnea Currently Using CPAP: No Currently Using BIPAP: No Cardiac: Yes (CLAUDICATION) Atrial Fibrillation, Chronic Edema/Swelling, Coronary Artery Disease, Deep Vein Thrombosis, Heart Attack, High Cholesterol, Hypertension, Peripheral Vascular Neurological: Yes Neuropathy 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 Disorders: Yes Female 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 Disorders: Denies 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 Sexually Transmitted Disease: No HIV/AIDS: No Genitourinary: Yes UTI-Chronic Gastrointestinal: Yes Gastroesophageal Reflux, Chronic Constipation Musculoskeletal: Yes (BILAT CHARCOT FOOT) Degenerate Disk Disease, Arthritis, Chronic Back Pain Endocrine: Yes (MORBID OBESITY) Diabetes, Insulin dep HEENT: Yes Cataract Loss of Vision: Bilateral Hearing Impairment: Denies Cancer: Yes Uterine Did You Recieve Any Treatments: Yes What Type of Treatment Did You: Surgical Intervention Psychosocial: Yes Sleep Difficulties, Anxiety, Depression Integumentary: No Blood Disorders: No Adverse Reaction/Blood Tranf: No Family Medical History Cardiovascular disease 19 FATHER 19 MOTHER Colon cancer 19 FATHER 19 MOTHER Colon cancer 19 FATHER 19 MOTHER Diabetes mellitus 19 MOTHER G8 BROTHER G8 SISTER Myocardial infarction 19 FATHER No Pertinent Family Hx SOCIAL HISTORY: -SMOKING HISTORY--USED TO SMOKE 2 1/2 PPD FROM AGE 19-AGE 29 -DENIES ALCOHOL -DENIES DRUG USE PAST SURGICAL HISTORY: -EGD/COLONOSCOPY BY DR. ALVARADO: DATE OF SERVICE: 10/06/2021 PREOPERATIVE DIAGNOSES: Family history of colon cancer, history of polyps, gastroesophageal reflux disease. POSTOPERATIVE DIAGNOSES: Esophageal erosion healing, gastritis, poor prep. PROCEDURE: EGD with biopsy, flexible sigmoidoscopy. EGD/COLONOSCOPY BY DR. ALVARADO: DATE OF SERVICE: 11/10/2021 PREOPERATIVE DIAGNOSES: Family history of colon cancer, gastroesophageal reflux disease. POSTOPERATIVE DIAGNOSIS: Normal esophagogastroduodenoscopy, normal colon. PROCEDURE: EGD with biopsies, colonoscopy. 12/2017--D&C WITH [facility] IUD PLACEMENT FOR ENDOMETRIAL HYPERPLASIA / POST MENOPAUSAL BLEEDING BY DR. WU -REPAIR OR CORNEAL INJURY -CARDIAC ABLATION -RIGHT ROTATOR CUFF REPAIR -CARDIAC CATH WITH STENT TO LAD -BILATERAL CATARACT SURGERY -LEFT KNEE ACL SRUGERY Physical Exam Vital Signs Vital Signs - First Documented 01/20/23 23:09 Temp 38.1 Pulse 123 Resp 20 B/P (MAP) 132/78 (96) Pulse Ox 96 O2 Delivery Room Air Capillary Refill : Less Than 3 Seconds Height, Weight, BMI Height: 5'10.50" Weight: 302lbs. 0.0oz. [id number]; 38.00 BMI Method:Stated General Appearance: No Apparent Distress, WD/WN, Obese, Other (DOES MOAN AND WAIL WITH ANY MOVEMENT. PT IS COVERED IN ANIMAL HAIR. DIRTY AND MALODOROUS. SLOW MENTATION, ) HEENT: PERRL/EOMI Respiratory: Normal Breath Sounds, No Accessory Muscle Use, No Respiratory Distress Cardiovascular: Tachycardia Gastrointestinal: Non Tender, Soft Back: No CVA Tenderness Extremity: Normal Capillary Refill, Other (3+ EDEMA ON LEFT, 2+ EDEMA ON RIGHT. CHRONIC VENOUS STASIS CHANGES BILATERALLY; DRESSINGS ON BOTTOM OF RIGHT FOOT, RIGHT FOOT AND LOWER LEG--ALMOST TO RIGHT KNEE WITH DIFFUSE ERYTHEMA AND WARMTH. BILATERAL CHARCOT FOOT. NO DRAINAGE ON DRESSINGS. ) Neurologic/Psychiatric: Alert, Oriented x3 (BUT LIMITED MEMORY), registration manager II-XII Norm as Tested, Sensory Deficit (DECREASED SENSATION TO BOTH FEET. MOTOR INTACT IN ALL EXTREMITIES. ) Skin: Normal Color, Warm/Dry, Other ( ABOVE) Focused Exam Sepsis Stage: Severe Sepsis Possible Source: Other (URINARY AND SKIN/SOFT TISSUE) Lactate Level 01/20/23 23:20: Lactic Acid Level 2.47*H 01/21/23 01:12: Lactic Acid Level 2.43*H Time of Focused Exam: 00:30 Respiratory: Normal Breath Sounds, No Accessory Muscle Use, No Respiratory Distress Cardiovascular: Tachycardia Capillary Refill: Less Than 3 Seconds Skin: normal color, warm/dry Lactic Acid Level Laboratory Tests Test 01/20/23 23:20 01/21/23 01:12 Lactic Acid Level 2.47 MMOL/L (0.50-2.00) *H 2.43 MMOL/L (0.50-2.00) *H Within 3hrs of presentation: Admin fluids, Admin ABX, Blood cultures prior to ABX's, Focus exam, Lactate level Progress/Results/Core Measures Suspected Sepsis SIRS Temperature: Pulse: 123 Respiratory Rate: 20 Laboratory Tests 01/20/23 23:14: White Blood Count 16.3H Blood Pressure 132 /78 Mean: 96 01/20/23 23:20: Lactic Acid Level 2.47*H 01/21/23 01:12: Lactic Acid Level 2.43*H Laboratory Tests 01/20/23 23:14: Creatinine 0.79, INR Comment 5.9*H, Platelet Count 230, Total Bilirubin 0.2 Results/Orders Lab Results Laboratory Tests Test 01/20/23 23:14 01/20/23 23:20 01/20/23 23:38 01/21/23 01:12 Range/Units White Blood Count 16.3 H 4.3-11.0 10^3/uL Red Blood Count 3.82 3.80-5.11 10^6/uL Hemoglobin 11.4 L 11.5-16.0 g/dL Hematocrit 34 L 35-52 % Mean Corpuscular Volume 89 80-99 fL Mean Corpuscular Hemoglobin 30 25-34 pg Mean Corpuscular Hemoglobin Concent 34 32-36 g/dL Red Cell Distribution Width 14.5 10.0-14.5 % Platelet Count 230 130-400 10^3/uL Mean Platelet Volume 10.0 9.0-12.2 fL Immature Granulocyte % (Auto) 0 % Neutrophils (%) (Auto) 88 H 42-75 % Lymphocytes (%) (Auto) 7 L 12-44 % Monocytes (%) (Auto) 4 0-12 % Eosinophils (%) (Auto) 0 0-10 % Basophils (%) (Auto) 0 0-10 % Neutrophils # (Auto) 14.4 H 1.8-7.8 10^3/uL Lymphocytes # (Auto) 1.1 1.0-4.0 10^3/uL Monocytes # (Auto) 0.7 0.0-1.0 10^3/uL Eosinophils # (Auto) 0.1 0.0-0.3 10^3/uL Basophils # (Auto) 0.0 0.0-0.1 10^3/uL Immature Granulocyte # (Auto) 0.1 0.0-0.1 10^3/uL Neutrophils % (Manual) 81 % Lymphocytes % (Manual) 7 % Monocytes % (Manual) 3 % Band Neutrophils 9 % Poikilocytosis SLIGHT Elliptocytes SLIGHT Acanthocytes SLIGHT Prothrombin Time 51.7 *H 12.2-14.7 SEC INR Comment 5.9 *H 0.8-1.4 Activated Partial Thromboplast Time 83 H 24-35 SEC Sodium Level 131 L 135-145 MMOL/L Potassium Level 4.1 3.6-5.0 MMOL/L Chloride Level 103 98-107 MMOL/L Carbon Dioxide Level 19 L 21-32 MMOL/L Anion Gap 9 5-14 MMOL/L Blood Urea Nitrogen 16 7-18 MG/DL Creatinine 0.79 0.60-1.30 MG/DL Estimat Glomerular Filtration Rate 80 BUN/Creatinine Ratio 20 Glucose Level 216 H 70-105 MG/DL Calcium Level 7.8 L 8.5-10.1 MG/DL Corrected Calcium 8.4 L 8.5-10.1 MG/DL Total Bilirubin 0.2 0.1-1.0 MG/DL Aspartate Amino Transf (AST/SGOT) 14 5-34 U/L Alanine Aminotransferase (ALT/SGPT) 20 0-55 U/L Alkaline Phosphatase 125 40-136 U/L Total Protein 6.5 6.4-8.2 GM/DL Albumin 3.2 3.2-4.5 GM/DL Influenza Type A (RT-PCR) Not Detected Not Detecte Influenza Type B (RT-PCR) Not Detected Not Detecte SARS-CoV-2 RNA (RT-PCR) Not Detected Not Detecte Lactic Acid Level 2.47 *H 2.43 *H 0.50-2.00 MMOL/L Urine Color YELLOW Urine Clarity CLOUDY Urine pH 7.0 5-9 Urine Specific [place] 1.015 L 1.016-1.022 Urine Protein 1+ H NEGATIVE Urine Glucose (UA) 1+ H NEGATIVE Urine Ketones TRACE H NEGATIVE Urine Nitrite POSITIVE H NEGATIVE Urine Bilirubin NEGATIVE NEGATIVE Urine Urobilinogen 0.2 < = 1.0 MG/DL Urine Leukocyte Esterase 3+ H NEGATIVE Urine RBC (Auto) 3+ H NEGATIVE Urine RBC 25-50 H /HPF Urine WBC 50-100 H /HPF Urine Squamous Epithelial Cells 2-5 /HPF Urine Crystals NONE /LPF Urine Bacteria LARGE H /HPF Urine Casts NONE /LPF Urine Mucus NEGATIVE /LPF Urine Culture Indicated CULTURE PENDING My Orders Orders - CALLUM ALCAZAR DO Ed Iv/Invasive Line Start (01/20/23 23:13) Catheter(Urinary) Insert & Ass ,15 (01/20/23 23:13) Monitor-Rhythm Ecg Trace Only (01/20/23 23:13) Lidocaine 2% (Urojet) (Lidocaine 2% (Uro (01/20/23 23:15) Covid 19 Inhouse Test (01/20/23 23:13) Cbc With Automated Diff (01/20/23:13) Comprehensive Metabolic Panel (01/20/23 23:13) Blood Culture (01/20/23 23:13) Urinalysis (01/20/23 23:13) Urine Culture (01/20/23 23:13) Protime With Inr (01/20/23 23:13) Partial Thromboplastin Time (01/20/23 23:13) Acetaminophen Tablet (Acetaminophen Ta (01/20/23 23:15) Ed Iv/Invasive Line Start (01/20/23 23:13) Ed Iv/Invasive Line Start (01/20/23 23:13) Vital Signs Adult Sepsis Patie Q15M (01/20/23 23:13) O2 (01/20/23 23:13) Remove Rings In Anticipation O (01/20/23 23:13) Lactic Acid Analyzer (01/20/23 23:13) Influenza A And B By Pcr (01/20/23 23:13) Ekg Tracing (01/20/23 23:13) Ed Iv/Invasive Line Start (01/20/23 23:13) Ns Iv 1000 Ml (Ns Iv 1000 Ml) (01/20/23 23:15) Accucheck Stat ONCE (01/20/23 23:13) Ibuprofen Tablet (Ibuprofen Tablet) (01/20/23 23:30) Manual Differential (01/20/23 23:14) Chest 1 View, Ap/Pa Only (01/21/23 00:01) Cefepime Injection (Cefepime Injection) (01/21/23 01:00) Vancomycin Injection (Vancomycin Injecti (01/21/23 01:00) Ed Iv/Invasive Line Start (01/21/23 00:51) Ns Iv 1000 Ml (Ns Iv 1000 Ml) (01/21/23 01:00) Medications Given in ED Current Medications Medications Dose Ordered Sig/Ashley Route Start Time Stop Time Status Last Admin Dose Admin Acetaminophen 1,000 mg ONCE PRN PO 01/20/23 23:15 01/20/23 23:24 DC 01/20/23 23:24 1,000 MG Cefepime HCl 2000 mg/Sodium Chloride 50 ml @ 100 mls/hr ONCE ONCE IV 01/21/23 01:00 01/21/23 01:29 DC 01/21/23 01:06 100 MLS/HR Ibuprofen 800 mg ONCE ONCE PO 01/20/23 23:30 01/20/23 23:31 DC 01/20/23 23:24 800 MG Vital Signs/I&O 01/20/23 01/21/23 23:09 01:42 Temp 38.1 37.5 Pulse 123 88 Resp 20 18 B/P (MAP) 132/78 (96) 119/63 Pulse Ox 96 98 O2 Delivery Room Air Room Air Capillary Refill : Less Than 3 Seconds Blood Pressure Mean: 96 Progress Note : Progress Note VITALS ON ARRIVAL: TEMP 38.1=100.6, HR 123, RR 20, O2 AT 96% ON ROOM AIR ACCUCHECK 140 ON ARRIVAL SEPSIS PROTOCOL INITIATED GIVEN: -IV FLUIDS -TYLENOL AND MOTRIN -ANTIBIOTICS LABS: -CBC WITH WBC 16.3, HGB 11.4, PLT 230,000 -CMP WITH NA 131, K 4.1, CO2 19, ANION GAP 9, BUN 16, CR 0.79, GLU 216, CA 7.8 -LACTIC ACID 2.47 -PT 51.7, PTT 83, INR 5.9 -UA WITH 1+ PROTEIN, 1+ GLUCOSE, TRACE KETONES, + NITRITES, 3+ ELUKOCYTES, 3+ RBC, 50-100 WBC, LARGE BACTERIA ( CATH SPECIMEN) -COVID/FLU NEGATIVE EKG WITH SUPRAVENTRICULAR/ATRIAL TACHYCARDIA CXR DOES NOT SHOW ANY ACUTE CHANGES, PENDING RADIOLOGIST REVIEW NO DETERIORATION IN PT'S CONDITION DURING ER STAY VITALS STABLE, HR DOWN TO 80'S AT TIME OF ADMIT, BP IN 110'S-120'S/80'S AT TIME OF ADMIT DISCUSSED TEST RESULTS, NEED FOR ADMIT AND PT IS AGREEABLE TO PLAN REVIEWED PRIOR RECORDS, INCLUDING ER VISITS, ADMITS/H&P'S/CONSULTS/DISCHARGE SUMMARIES, TESTS/PROCEDURES ECG Initial ECG Impression Date: Jan 20, 2023 Initial ECG Impression Time: 23:04 Initial ECG Rate: 119 Initial ECG Rhythm: SVT Initial ECG Intervals [place] 212 QRS 114 QT/QTC 302/373 Initial ECG Impression: Nonspecific Changes, 1st Degree AV Block Initial ECG Comparisson: Unchanged Comment INTERPRETED BY ME Diagnostic Imaging Comments CXR--NO ACUTE PROCESS, PENDING RADIOLOGIST REVIEW Reviewed: Reviewed by Me Departure Communication (Admissions) 0040--SPOKE WITH DR. TELLO, HOSPITALIST FOR [facility], ACCEPTS PT FOR ADMIT. 0045--REPORT TO E-ICU PHYSICIAN. Impression Primary Impression: Severe sepsis Additional Impressions: UTI (urinary tract infection) RIGHT FOOT AND LOWER LEG CELLULITIS Chronic ulcer of right foot due to diabetes mellitus BILATERAL CHARCOT FOOT Chronic atrial fibrillation Excessive anticoagulation HTN (hypertension) IDDM (insulin dependent diabetes mellitus) Peripheral neuropathy Morbid obesity HX OF CAD WITH STENT Disposition: ADMITTED INPATIENT Condition: Stable Admissions Decision to Admit Reason: Admit from ER (General) Decision to Admit/Date: Jan 21, 2023 Time/Decision to Admit Time: 00:40 Departure-Patient Inst. Referrals: DELIA TRIANA MD (PCP/Family) Primary Care Physician CALLUM ALCAZAR DO Jan 20, 2023 23:23
[2023-01-20 23:30] LABS: BASOPHILS % (AUTO) 0 % (0-10); EOSINOPHILS # (AUTO) 0.1 10^3/uL (0.0-0.3); EOSINOPHILS % (AUTO) 0 % (0-10); HEMATOCRIT 34 % (35-52); HEMOGLOBIN 11.4 g/dL (11.5-16.0); LYMPHOCYTES # (AUTO) 1.1 10^3/uL (1.0-4.0); LYMPHOCYTES % (AUTO) 7 % (12-44); MEAN CORPUSCULAR HEMOGLOBIN 30 pg (25-34); MEAN CORPUSCULAR HGB CONC 34 g/dL (32-36); MEAN CORPUSCULAR VOLUME 89 fL (80-99); MONOCYTES # (AUTO) 0.7 10^3/uL (0.0-1.0); MONOCYTES % (AUTO) 4 % (0-12); NEUTROPHILS # (AUTO) 14.4 10^3/uL (1.8-7.8); NEUTROPHILS % (AUTO) 88 % (42-75); PLATELET COUNT 230 10^3/uL (130-400); WHITE BLOOD COUNT 16.3 10^3/uL (4.3-11.0)
[2023-01-20] MEDS ORDERED: IBUPROFEN 800 MG TABLET PO ONE (23:30)
[2023-01-20 23:42] LABS: ALBUMIN 3.2 GM/DL (3.2-4.5)
[2023-01-20 23:43] LABS: POTASSIUM 4.1 MMOL/L (3.6-5.0)
[2023-01-20 23:44] LABS: CALCIUM 7.8 MG/DL (8.5-10.1)
[2023-01-20 23:45] LABS: TOTAL PROTEIN 6.5 GM/DL (6.4-8.2)
[2023-01-20 23:47] LABS: BILIRUBIN,TOTAL 0.2 MG/DL (0.1-1.0)
[2023-01-20 23:49] LABS: CREATININE SERUM 0.79 MG/DL (0.60-1.30)
[2023-01-20 23:54] LABS: INR 5.9 (0.8-1.4); PROTHROMBIN TIME PATIENT 51.7 SEC (12.2-14.7)
[2023-01-21] VITALS (22 sets, daily range): BP systolic 77–138; BP diastolic 44–80
[2023-01-21 00:15] LABS: BAND NEUTROPHILS 9 %; ELLIPT/OVALOCYTES SLIGHT; LYMPHOCYTES % (MANUAL) 7 %; MONOCYTES % (MANUAL) 3 %; NEUTROPHILS % (MANUAL) 81 %; POIKILOCYTOSIS SLIGHT
[2023-01-21 00:16] LABS: ACANTHOCYTES SLIGHT
[2023-01-21 00:17] LABS: CLARITY,URINE CLOUDY; COLOR,URINE YELLOW; GLUCOSE, URINE (UA) 1+ (NEGATIVE); KETONES,URINE TRACE (NEGATIVE); PROTEIN,URINE 1+ (NEGATIVE)
[2023-01-21 00:18] LABS: BACTERIA,URINE LARGE /HPF; BILIRUBIN,URINE NEGATIVE (NEGATIVE); LEUKOCYTE ESTERASE ,URINE 3+ (NEGATIVE); NITRITE,URINE POSITIVE (NEGATIVE); RBC,URINE 25-50 /HPF; WBC,URINE 50-100 /HPF
[2023-01-21] MEDS ORDERED: NS IV 1000 ML 1,000 ML IV SCH ×2 (01:00→05:15)
[2023-01-21] MEDS ORDERED: CEFEPIME INJECTION 2,000 MG in NS (IVPB) 50 ML 50 ML IV ONE (01:00)
[2023-01-21] MEDS: VANCOMYCIN INJECTION 1,000 MG in NS (IVPB) 250 ML 250 ML IV SCH ×2 (01:06→02:11)
--- NOTE | 2023-01-21 03:21 | Tele-ICU Progress Note ---
Progress Note 72F with afib on xarelto, IDDM, morbid obesity, HTN, HLD, peripheral neuropathy, chronic recurrent UTIs on macrobid, chronic foot wounds intially presented with worsening of her chronic pain and failure to improve with oxycodone. Pain was worst in back, hips and legs. Denies cough or respiratory symptoms. On arrival she had low grade fever 100.6 and HR 120s, afib. In ED, HD stable outside of HR 120 afib. Found to have UTI and cellulitus related to chronic foot wounds. INR elevated to 5.9. - sepsis: secondary to urinary source, cellulitus. Cefepime and vanco initiated in ED. Cultures pending. Supportive care ongoing. - afib: currently sinus 80 (with some sinus dysfunction) with treatment of sepsis and fever. Continue xarelto. Monitor with goal of rate control. - coagulopathy: tested high at 9 yesterday and has held home coumadin as a result. Now 5.9. No active bleeding. Continue to hold coumadin. Avoid potentiating agents (ie quinolones and amio). Monitor until therapuetic and then restart coumadin. - DM: insulin sliding scale. Patient assessed via real time audiovisual communication system. CCT 11 min Focused Exam Lactate Level 01/20/23 23:20: Lactic Acid Level 2.47*H 01/21/23 01:12: Lactic Acid Level 2.43*H Height, Weight, BMI Height: 5'10.50" Weight: 302lbs. 0.0oz. 136.817408qt; 38.48 BMI Method:Stated Lactic Acid Level Laboratory Tests Test 01/21/23 01:12 Lactic Acid Level 2.43 MMOL/L (0.50-2.00) *H MARTHA RESENDIZ MD Jan 21, 2023 03:20
[2023-01-21] MEDS: NS IV 1000 ML 1,000 ML IV SCH ×2 (03:23→11:11)
[2023-01-21] MEDS ORDERED: PHARMACY TO DOSE PO SCH (03:30)
[2023-01-21] MEDS ORDERED: VANCOMYCIN INJECTION 0.1 MG in NS (IVPB) 250 ML 250 ML IV SCH (03:30)
--- NOTE | 2023-01-21 04:58 | Diagnostic Imaging Report ---
INDICATION: Chest pain and pelvic pain. Frontal chest obtained at 1212 a.m. and compared to 08/17/2022. Heart is borderline in size. There is mild central vascular prominence without yamileth edema. There is no consolidation or pneumothorax or pleural fluid. IMPRESSION: Borderline heart size with mild central vascular prominence. No focal infiltrate or pleural fluid. Dictated by: Dictated on workstation # [id number]
[2023-01-21 05:48] LABS: BASOPHILS % (AUTO) 0 % (0-10); EOSINOPHILS % (AUTO) 0 % (0-10); HEMATOCRIT 31 % (35-52); HEMOGLOBIN 10.4 g/dL (11.5-16.0); LYMPHOCYTES # (AUTO) 2.1 10^3/uL (1.0-4.0); LYMPHOCYTES % (AUTO) 14 % (12-44); MEAN CORPUSCULAR HEMOGLOBIN 30 pg (25-34); MEAN CORPUSCULAR HGB CONC 33 g/dL (32-36); MEAN CORPUSCULAR VOLUME 89 fL (80-99); MEAN PLATELET VOLUME 10.5 fL (9.0-12.2); MONOCYTES # (AUTO) 0.8 10^3/uL (0.0-1.0); MONOCYTES % (AUTO) 5 % (0-12); NEUTROPHILS # (AUTO) 11.7 10^3/uL (1.8-7.8); NEUTROPHILS % (AUTO) 80 % (42-75); PLATELET COUNT 211 10^3/uL (130-400); WHITE BLOOD COUNT 14.6 10^3/uL (4.3-11.0)
[2023-01-21 05:53] LABS: POTASSIUM 4.3 MMOL/L (3.6-5.0)
[2023-01-21 05:54] LABS: CALCIUM 7.9 MG/DL (8.5-10.1)
[2023-01-21 05:56] LABS: TOTAL PROTEIN 5.9 GM/DL (6.4-8.2)
[2023-01-21 05:57] LABS: BILIRUBIN,TOTAL 0.2 MG/DL (0.1-1.0)
[2023-01-21 05:59] LABS: CREATININE SERUM 0.78 MG/DL (0.60-1.30); PHOSPHORUS 3.2 MG/DL (2.3-4.7)
[2023-01-21 06:02] LABS: MAGNESIUM 1.5 MG/DL (1.6-2.4)
[2023-01-21] MEDS: inSUlin ASPART 1 UNIT/0.01 ML (PER UNIT) SC SCH ×3 (06:09→17:02)
[2023-01-21] MEDS ORDERED: MAGNESIUM 1 GM/100 ML IVPB 200 ML IV ONE (06:21)
[2023-01-21 06:24] LABS: PROTHROMBIN TIME PATIENT 45.1 SEC (12.2-14.7)
[2023-01-21] MEDS: MAGNESIUM 1 GM/100 ML IVPB 100 ML IV SCH ×2 (06:25→06:59)
[2023-01-21] MEDS: CEFEPIME INJECTION 1,000 MG in NS (IVPB) 50 ML 50 ML IV SCH ×3 (06:57→18:44)
[2023-01-21] MEDS ORDERED: ONDANSETRON INJECTION 4 MG/2 ML (SDV) IVP PRN (08:15)
[2023-01-21] MEDS ORDERED: IBUPROFEN 800 MG TABLET PO PRN (08:15)
[2023-01-21] MEDS ORDERED: ACETAMINOPHEN 500 MG TABLET PO PRN (08:15)
[2023-01-21] MEDS ORDERED: fentaNYL INJECTION 100 MCG/2 ML VIAL IV PRN (08:15)
[2023-01-21] MEDS ORDERED: INSU100I10 SQ (09:19)
[2023-01-21] MEDS ORDERED: ASPI-999 PO (09:20)
--- NOTE | 2023-01-21 09:48 | Wound Care Assessment ---
Wound Care Assessment Date Seen by Provider: Jan 21, 2023 Time Seen by Provider: 09:41 Chief Complaint Diabetic foot wound HPI This pleasant 72 year old female was admitted with sepsis, UTI and cellulitis RLE. She has been under care with Dr. Peterson in [facility] and ulcer is currently dressed with HFB. She has significant Charcot changes to bilateral feet contributing to this ulceration. She admits to worsening glycemic control in last several months (uncertain on A1C). She does suffer from obesity as well. She has some mild erythema with associated lymphedema (moncho. to right) which she states is new. She is currently on Vancomycin and Cefepime appropriately. She n otes that she does also have custom shoes at home. She is in adhesive felt relief as well today for off loading. Past Medical History: Admits Diabetes Type II, Admits Heart Disease atrial fibrillation with elevated INR, history of osteomyelitis (HBO in past). Smoking Status: Former Smoker Recreational Drug Use: No Review of Systems Neurological: Numbness Exam Vital Signs Date Time Temp Pulse Resp B/P (MAP) Pulse Ox O2 Delivery O2 Flow Rate FiO2 01/21/23 09:00 84 18 101/56 (71) 100 Nasal Cannula 2.00 01/21/23 08:00 36.8 01/21/23 03:11 28 Capillary Refill : Less Than 3 Seconds General Appearance: WD/WN, no apparent distress, obese HEENT: other (normal hearing) Neck: full range of motion Respiratory: no respiratory distress, no accessory muscle use Extremities: inflammation, pedal edema Neurologic/Psychiatric: alert, normal mood/affect, oriented x 3 Skin: warm/dry Skin Problem Location: lower extremities Wound assessment: 1x1x0.2cm. The epithelialization is small. there is no tunneling or undermining. Drainage is large and serosanguinous. Granulation is large and pink. Necrotic is none. Margins are flat Results Laboratory Tests 01/20/23 23:14: White Blood Count 16.3H, Red Blood Count 3.82, Hemoglobin 11.4L, Hematocrit 34L, Mean Corpuscular Volume 89, Mean Corpuscular Hemoglobin 30, Mean Corpuscular Hemoglobin Concent 34, Red Cell Distribution Width 14.5, Platelet Count 230, Mean Platelet Volume 10.0, Immature Granulocyte % (Auto) 0, Neutrophils (%) (Auto) 88H, Lymphocytes (%) (Auto) 7L, Monocytes (%) (Auto) 4, Eosinophils (%) (Auto) 0, Basophils (%) (Auto) 0, Neutrophils # (Auto) 14.4H, Lymphocytes # (Auto) 1.1, Monocytes # (Auto) 0.7, Eosinophils # (Auto) 0.1, Basophils # (Auto) 0.0, Immature Granulocyte # (Auto) 0.1, Neutrophils % (Manual) 81, Lymphocytes % (Manual) 7, Monocytes % (Manual) 3, Band Neutrophils 9, Poikilocytosis SLIGHT, Elliptocytes SLIGHT, Acanthocytes SLIGHT, Prothrombin Time 51.7*H, INR Comment 5.9*H, Activated Partial Thromboplast Time 83H, Sodium Level 131L, Potassium Level 4.1, Chloride Level 103, Carbon Dioxide Level 19L, Anion Gap 9, Blood Urea Nitrogen 16, Creatinine 0.79, Estimat Glomerular Filtration Rate 80, BUN/Creatinine Ratio 20, Glucose Level 216H, Calcium Level 7.8L, Corrected Calcium 8.4L, Total Bilirubin 0.2, Aspartate Amino Transf (AST/SGOT) 14, Alanine Aminotransferase (ALT/SGPT) 20, Alkaline Phosphatase 125, Total Protein 6.5, Albumin 3.2, Influenza Type A (RT-PCR) Not Detected, Influenza Type B (RT-PCR) Not Detected, SARS-CoV-2 RNA (RT-PCR) Not Detected 01/20/23 23:18: Glucometer 140H 01/20/23 23:20: Lactic Acid Level 2.47*H 01/20/23 23:38: Urine Color YELLOW, Urine Clarity CLOUDY, Urine pH 7.0, Urine Specific [place] 1.015L, Urine Protein 1+H, Urine Glucose (UA) 1+H, Urine Ketones TRACEH, Urine Nitrite POSITIVEH, Urine Bilirubin NEGATIVE, Urine Urobilinogen 0.2, Urine Leukocyte Esterase 3+H, Urine RBC (Auto) 3+H, Urine RBC 25-50H, Urine WBC 50- 100H, Urine Squamous Epithelial Cells 2-5, Urine Crystals NONE, Urine Bacteria LARGEH, Urine Casts NONE, Urine Mucus NEGATIVE, Urine Culture Indicated CULTURE PENDING 01/21/23 01:12: Lactic Acid Level 2.43*H 01/21/23 03:40: Lactic Acid Level 1.81, Sodium Level 133L, Potassium Level 4.3, Chloride Level 105, Carbon Dioxide Level 18L, Anion Gap 10, Blood Urea Nitrogen 18, Creatinine 0.78, Estimat Glomerular Filtration Rate 82, BUN/Creatinine Ratio 23, Glucose Level 109H, Calcium Level 7.9L, Corrected Calcium 8.7, Phosphorus Level 3.2, Magnesium Level 1.5L, Total Bilirubin 0.2, Aspartate Amino Transf (AST/SGOT) 15, Alanine Aminotransferase (ALT/SGPT) 19, Alkaline Phosphatase 112, Total Protein 5.9L, Albumin 3.0L 01/21/23 04:30: White Blood Count 14.6H, Red Blood Count 3.52L, Hemoglobin 10.4L, Hematocrit 31L , Mean Corpuscular Volume 89, Mean Corpuscular Hemoglobin 30, Mean Corpuscular Hemoglobin Concent 33, Red Cell Distribution Width 14.8H, Platelet Count 211, Mean Platelet Volume 10.5, Immature Granulocyte % (Auto) 0, Neutrophils (%) (Auto) 80H, Lymphocytes (%) (Auto) 14, Monocytes (%) (Auto) 5, Eosinophils (%) (Auto) 0, Basophils (%) (Auto) 0, Neutrophils # (Auto) 11.7H, Lymphocytes # (Auto) 2.1, Monocytes # (Auto) 0.8, Eosinophils # (Auto) 0.0, Basophils # (Auto) 0.0, Immature Granulocyte # (Auto) 0.1, Prothrombin Time 45.1*H, INR Comment 5.0H, Activated Partial Thromboplast Time 100H Assessment/Plan/Dx Assessment: 1. Diabetic foot ulcer 2. Charcot foot 3. Diabetes with hyperglycemia 4. Sepsis with cellulitis and UTI 5. Elevated INR Plan: 1. Cleanse daily with vashe, silver alginate daily with BFD while admitted. Care to be transferred back to Dr. Peterson upon d/c home 2. As above 3. Improved glycemic control advised 4. Agree with broad spectrum antibiotics 5. Defer to primary TAYA GREGORY MD Jan 21, 2023 09:48
[2023-01-21] MEDS ORDERED: IOHEXOL 350 MG/ML 100 ML (OMNIPAQUE 350) VIAL IV ONE (10:45)
[2023-01-21] MEDS ORDERED: NS 100 ML (IVPB) BAG IV ONE (10:45)
[2023-01-21] MEDS ORDERED: HOLD METFORMIN - RECEIVED CONTRAST 20 ML VIAL IV SCH (10:45)
[2023-01-21] MEDS ORDERED: [UNRECOGNIZED DRUG - OTHER] OU PRN (11:45)
[2023-01-21] MEDS ORDERED: NON-FORMULARY MEDICATION 1 EA EA (Lactobacillus Rhamnosus GG (Culturelle) 1 CAP) PO PRN (11:45)
[2023-01-21] MEDS ORDERED: FAMOTIDINE 20 MG TABLET PO PRN (11:45)
[2023-01-21] MEDS ORDERED: POVIDONE OU PRN (11:45)
[2023-01-21] MEDS ORDERED: ONDANSETRON 4 MG ORAL DISSOLVE TABLET PO SCH (11:45)
[2023-01-21] MEDS ORDERED: POLYVINYL ALCOHOL OU PRN (11:45)
[2023-01-21] MEDS ORDERED: NON-FORMULARY MEDICATION 1 EA EA (Insulin Aspart (Novolog Flexpen) 6 UNITS) SQ SCH (12:00)
[2023-01-21] MEDS ORDERED: LACTOBACILLUS ACIDOPHILUS (PROBIOTIC) CAPSULE PO PRN (12:30)
[2023-01-21] MEDS ORDERED: ARTIFICAL TEARS Ophth solution 0.4 ML UNIT DOSE OU PRN (12:30)
--- NOTE | 2023-01-21 12:49 | History & Physical-Hospitalist ---
STEVE HOANG 01/21/23 1249: History of Present Illness HPI/Chief Complaint This 72 yo female with a h/o chronic pain presented to the ED with 1 day of increasing pain of back, hips, and legs (specifically the feet). Pt denied any falls. She states that the pain in her feet are sharp and intermittent. When taking gabapentin and oxycodone, the pain subsides, but returns when the medicines wear off. She states that normally she can only walk a few steps due to the pain and fatigue. Patient has a history of AFIB, Peripheral neuropathy, DMII, Peripheral Vascular Disease, recurrent UTIs, and chronic constipation. Today, the patient complained of immense sharp pain of her feet which she attributes to not having her gabapentin or oxycodone. She denies chest pain, palpitations, shortness of breath, cough, new numbness, parasthesias, and tingling. Source: patient, RN notes reviewed, EMS notes reviewed Exam Limitations: clinical condition (Patient was notably anxious and in pain. ) Date Seen 01/21/23 Time Seen by a Provider: 09:45 Attending Physician Vj Almaraz - [facility] PCP Admitting Physician: Tia Tello DO Attending Physician: Tia Tello DO Referring Physician Date of Admission Jan 21, 2023 at 02:03 Home Medications & Allergies Home Medications Reviewed patient Home Medication Reconciliation performed by pharmacy medication reconciliations reuse technician and/or nursing. Patients Allergies have been reviewed. Allergies Allergies Coded Allergies black cohosh (Verified Allergy, Unknown, 01/07/22) glyburide (Verified Allergy, Unknown, 01/07/22) isosorbide (Verified Allergy, Unknown, 01/07/22) Uncoded Allergies ARCABOSE ( Allergy, Mild, Abdominal Pain, 10/01/19) GAS PAINS Past Czyzkch-Jcsnnl-Lqqkop Hx Patient Social History Tobacco Use?: No Smoking Status: Former Smoker Use of E-Cig and/or Vaping dev: No Substance use?: No Alcohol Use?: No Pt feels they are or have been: No Immunizations Up To Date Date of Influenza Vaccine: Jan 14, 2019 First/Initial COVID19 Vaccinat: Y Second COVID19 Vaccination Primo: Y Hepatitis A: Yes Hepatitis B: Yes PED Vaccines UTD: Yes Date of Pneumonia Vaccine: Feb 14, 2017 Seasonal Allergies Seasonal Allergies: No Current Status Communicates: Verbally Primary Language: Stateless Preferred Spoken Language: Stateless Is interpretation needed?: No Past Medical History Surgeries: Cardiac, Coronary Stent, Eye Surgery, Orthopedic Asthma, Sleep Apnea Currently Using CPAP: No Currently Using BIPAP: No Atrial Fibrillation, Chronic Edema/Swelling, Coronary Artery Disease, Deep Vein Thrombosis, Heart Attack, High Cholesterol, Hypertension, Peripheral Vascular Neuropathy [employer] WORK[employer] History: Menopausal Sexually Transmitted Disease: No HIV/AIDS: No UTI-Chronic Gastroesophageal Reflux, Chronic Constipation Degenerate Disk Disease, Arthritis, Chronic Back Pain Diabetes, Insulin dep Cataract Loss of Vision: Bilateral Hearing Impairment: Denies Uterine Did You Recieve Any Treatments: Yes What Type of Treatment Did You: Surgical Intervention Sleep Difficulties, Anxiety, Depression Blood Disorders: No Adverse Reaction/Blood Tranf: No NSTEMI with stent placement CAD HTN Family Medical History Cardiovascular disease 19 FATHER 19 MOTHER Colon cancer 19 FATHER 19 MOTHER Colon cancer 19 FATHER 19 MOTHER Diabetes mellitus 19 MOTHER G8 BROTHER G8 SISTER Myocardial infarction 19 FATHER No Pertinent Family Hx SOCIAL HISTORY: -SMOKING HISTORY--USED TO SMOKE 2 1/2 PPD FROM AGE 19-AGE 29 -DENIES ALCOHOL -DENIES DRUG USE PAST SURGICAL HISTORY: -EGD/COLONOSCOPY BY DR. ALVARADO: DATE OF SERVICE: 10/06/2021 PREOPERATIVE DIAGNOSES: Family history of colon cancer, history of polyps, gastroesophageal reflux disease. POSTOPERATIVE DIAGNOSES: Esophageal erosion healing, gastritis, poor prep. PROCEDURE: EGD with biopsy, flexible sigmoidoscopy. EGD/COLONOSCOPY BY DR. ALVARADO: DATE OF SERVICE: 11/10/2021 PREOPERATIVE DIAGNOSES: Family history of colon cancer, gastroesophageal reflux disease. POSTOPERATIVE DIAGNOSIS: Normal esophagogastroduodenoscopy, normal colon. PROCEDURE: EGD with biopsies, colonoscopy. 12/2017--D&C WITH MIRENA IUD PLACEMENT FOR ENDOMETRIAL HYPERPLASIA / POST MENOPAUSAL BLEEDING BY DR. WU -REPAIR OR CORNEAL INJURY -CARDIAC ABLATION -RIGHT ROTATOR CUFF REPAIR -CARDIAC CATH WITH STENT TO LAD -BILATERAL CATARACT SURGERY -LEFT KNEE ACL SRUGERY Review of Systems Constitutional: no symptoms reported Respiratory: No cough, No short of breath Cardiovascular: No chest pain; edema; No palpitations Psychiatric/Neurological: See HPI, Anxiety Physical Exam Physical Exam Vital Signs Vital Signs - First Documented 01/20/23 01/21/23 01/21/23 23:09 02:20 03:11 Temp 38.1 Pulse 123 Resp 20 B/P (MAP) 132/78 (96) Pulse Ox 96 O2 Delivery Room Air O2 Flow Rate 2.00 FiO2 28 Capillary Refill : Less Than 3 Seconds Height, Weight, BMI Height: 5'10.50" Weight: 302lbs. 0.0oz. 136.259925ba; 38.48 BMI Method:Stated General Appearance: Anxious, Chronically ill, Mild Distress Respiratory: Lungs Clear, Normal Breath Sounds, No Accessory Muscle Use, No Respiratory Distress Cardiovascular: Regular Rate, Rhythm, No Murmur Extremity: Pedal Edema Skin: Erythema (noted on right lower leg), Other (Ulcer noted on the bottom of the right foot) Results Results/Procedures Labs Laboratory Tests 01/20/23 23:14 01/21/23 03:40 01/21/23 04:30 Patient resulted labs reviewed. Assessment/Plan Admission Diagnosis Sepsis Admission Status: Observation Assessment and Plan Assessment 1. Sepsis secondary to UTI 2. Cellulitis of Right lower leg 3. Chronic Right foot ulcer 4. Chronic AFIB 5. HTN 6. DMII 7.Peripheral Vascular Disease Plan 1. Vancomycin and Cefepime 2. Pain Control Management 3. Replenish Mg++ TELLO,TIA DO 01/21/232104: History of Present Illness HPI/Chief Complaint Chief complaint: Sepsis HPI:This is a 72-year-old female [facility] patient who presented to the ER with severe pain all over and fever. Patient was found to have UTI. Placed on broad- spectrum antibiotics due to high risk for resistant organism. Source: patient Exam Limitations: clinical condition (Patient was notably anxious and in pain. ) Past Fogkekq-Glekew-Tkzcnb Hx Patient Social History Marrital Status: single Employed/Student: unemployed Smoking Status: Former Smoker Past Medical History Atrial Fibrillation, High Cholesterol, Hypertension Neuropathy Family Medical History Cardiovascular disease 19 FATHER 19 MOTHER Colon cancer 19 FATHER 19 MOTHER Colon cancer 19 FATHER 19 MOTHER Diabetes mellitus 19 MOTHER G8 BROTHER G8 SISTER Myocardial infarction 19 FATHER Review of Systems Constitutional: see HPI Physical Exam Physical Exam General Appearance: No Apparent Distress, Chronically ill Respiratory: Lungs Clear, Normal Breath Sounds Cardiovascular: Regular Rate, Rhythm Neurologic/Psychiatric: Alert, Oriented x3 Assessment/Plan Admission Diagnosis Assessment: Sepsis UTI Atrial fibrillation Coagulopathy on oral anticoagulation Severe chronic pain Percocet dependent Severe neuropathy Fibromyalgia Plan: ICU transfer to [facility] med IV antibiotics Admission Status: Inpatient Order (span 2 midnights) Reason for Inpatient Admission: Sepsis with coagulopathy Supervisory-Addendum Brief Verification & Attestation Participated in pt care: history, MDM, physical Personally performed: exam, history, MDM, supervision of care Care discussed with: Medical Student Procedures: n/a Results interpretation: Verified all documentation Verification and Attestation of Medical Student E/M Service A medical student performed and documented this service in my presence. I reviewed and verified all information documented by the medical student and made modifications to such information, when appropriate. I personally performed the physical exam and medical decision making. Tia Tello, Jan 21, 2023,21:01 STEVE HOANG Jan 21, 2023 12:49 TIA TELLO DO Jan 21, 2023 21:05
[2023-01-21] MEDS: OMEGA 3 (FISH OIL) 1000 MG CAP PO SCH ×2 (12:54→20:52)
[2023-01-21] MEDS: GABAPENTIN 400 MG CAPSULE PO SCH ×3 (12:54→20:52)
[2023-01-21] MEDS: VITAMIN D3 25 MCG (1,000 UNITS) TABLET PO SCH (12:54)
[2023-01-21] MEDS: oxyCODONE/ACETAMINOPHEN 10/325MG TABLET PO PRN ×2 (12:55→17:01)
[2023-01-21] MEDS ORDERED: NON-FORMULARY MEDICATION 1 EA EA (Gabapentin 800 MG) PO SCH (13:00)
[2023-01-21] MEDS ORDERED: WARF-47 PO ×2 (13:37)
[2023-01-21] MEDS ORDERED: OMEG100032 PO (13:37)
[2023-01-21] MEDS ORDERED: SOLI10TA7 PO (13:37)
[2023-01-21] MEDS ORDERED: PANT40TA52 PO (13:37)
[2023-01-21] MEDS ORDERED: ATOR40TA70 PO (13:37)
[2023-01-21] MEDS: ACETAMINOPHEN 500 MG TABLET PO SCH ×2 (14:08→20:53)
[2023-01-21] MEDS ORDERED: ONDANSETRON 4 MG ORAL DISSOLVE TABLET PO PRN (14:30)
[2023-01-21] MEDS: PRIMIDONE 250MG TABLET PO SCH ×2 (14:38→20:53)
[2023-01-21] MEDS: hydrOXYzine 10 MG TABLET PO SCH ×2 (14:42→20:53)
[2023-01-21] MEDS: FLUTICASONE/VILANTEROL 200/25 MCG (7 DOSES) IH SCH (15:07)
--- NOTE | 2023-01-21 15:36 | Diagnostic Imaging Report ---
Procedure: CT right lower extremity with contrast. Technique: Multiple contiguous axial CT images of the right extremity were obtained after intravenous administration of iodinated contrast. Auto Exposure Controls were utilized during the CT exam to meet ALARA standards for radiation dose reduction. Date: January 21, 2023. Indication: 72-year-old female, wound in the right heel. Pain. Comparison: None. Findings: There are limitations of the exam relating to the ovmpl-ka-egvo of acquisition. There is prominent abnormal attenuation in the volar soft tissues at the level of the tarsometatarsal articulations medially. There is no identified radiopaque foreign body. This is incompletely imaged. There is no well marginated peripherally enhancing fluid collection or abscess in the included mozpy-ud-dobn. There is no identified cortical or aggressive bone destruction in the included [id number]. There is severe midfoot arthritis. The navicular is inferiorly subluxed relative to the medial cuneiform. There are subchondral cystic changes adjacent to the calcaneocuboid articulation. There is no tibiotalar or subtalar joint effusion. There is preservation of normal fat attenuation in the sinus tarsi. There is generalized fatty muscle atrophy likely reflecting polyneuropathy. Impression: 1. Prominent volar soft tissue swelling and an abnormal attenuation at the level of the tarsometatarsal articulations which is incompletely imaged. There is no demonstrated peripherally enhancing fluid collection or abscess in the included [id number]. 2. No CT evidence of osteomyelitis in the included [id number]. 3. Severe midfoot arthritis. 4. Diffuse fatty muscle atrophy likely reflecting polyneuropathy. Dictated by: Dictated on workstation # [id number]
[2023-01-21] MEDS ORDERED: NON-FORMULARY MEDICATION 1 EA EA (Solifenacin Succinate (Vesicare) 10 MG) PO SCH (16:00)
[2023-01-21] MEDS: TROSPIUM 20 MG (SANCTURA) TAB PO SCH (17:00)
[2023-01-21] MEDS: FERROUS SULFATE 325 MG (IRON) TABLET PO SCH (17:01)
[2023-01-21] MEDS: VANCOMYCIN 1250MG/250ML PREMIX 250 ML IV SCH (17:01)
[2023-01-21] MEDS: CALCIUM CARBONATE 600 MG +VITAMIN D TABLET PO SCH (17:02)
[2023-01-21] MEDS: NITROFURANTOIN Monohydrate/Macro 100 MG CAPSULE PO SCH (17:02)
--- NOTE | 2023-01-21 17:25 | Consultation-Cardiology ---
HPI-Cardiology Cardiology Consultation: Date of Consultation 01/21/23 Date of Admission Attending Physician Vj Almaraz - [facility] Admitting Physician Admitting Physician: Tia Rosales DO Attending Physician: Tia Rosales DO Consulting Physician Janiya CORDOVA MD HPI: Time Seen by a Provider: 15:00 Chief Complaint: Lower extremity discomfort This is a 72-year-old lady who has previous history of diabetes, morbid obesity, obstructive sleep apnea on CPAP therapy, CAD, PCI in 2019, persistent atrial fibrillation, atrial fibrillation ablation in Sep, 2019, recurrent atrial fibrillation treated with transesophageal echocardiogram assisted cardioversion. On chronic oral anticoagulation. Presents with significant pain in the right lower extremity. She has previous history of chronic generalized pain and is on narcotics. Patient does have history of peripheral neuropathy. Review of Systems-Cardiology Review of Systems Constitutional: no symptoms reported Eyes: no symptoms reported Ears/Nose/Throat: no symptoms reported Respiratory: no symptoms reported Cardiovascular: no symptoms reported Musculoskeletal: joint pain PPR-Ijfbba-Aqcpfm Hx Patient Social History Smoking Status: Former Smoker Former smoker/When Quit: Aug 07, 1980 2nd Hand Smoke Exposure: No Alcohol Use?: No Pt feels they are or have been: No Immunizations Up To Date Tetanus Booster (TDap): Less than 5yrs Date of Pneumonia Vaccine: Feb 14, 2017 Date of Influenza Vaccine: Jan 14, 2019 Past Medical History PMH As described under Assessment. Family Medical History Family History: Cardiovascular disease 19 FATHER 19 MOTHER Colon cancer 19 FATHER 19 MOTHER Colon cancer 19 FATHER 19 MOTHER Diabetes mellitus 19 MOTHER G8 BROTHER G8 SISTER Myocardial infarction 19 FATHER Allergies and Home Medications Allergies Coded Allergies: black cohosh (Verified Allergy, Unknown, 01/07/22) glyburide (Verified Allergy, Unknown, 01/07/22) isosorbide (Verified Allergy, Unknown, 01/07/22) Uncoded Allergies: ARCABOSE (Allergy, Mild, Abdominal Pain, 10/01/19) GAS PAINS Patient Home Medication List Home Medication List Reviewed: Yes Acetaminophen (Acetaminophen) 500 Mg Tablet, 1,000 MG PO DAILY PRN, (Reported) Entered as Reported by: CORI CHRISTINA on 06/14/19 0736 Last Action: Reviewed Aspirin (Aspirin) 81 Mg Tab.chew, 81 MG PO DAILY, (Reported) Entered as Reported by: AMY DOW on 9/8/23 0920 Last Action: Reviewed Atorvastatin Calcium (Atorvastatin Calcium) 40 Mg Tablet, 40 MG PO HS, (Reported) Entered as Reported by: PATRIC MCMANUS on 01/21/23 1337 Last Action: Reviewed Calcium Carbonate/Vitamin D3 (Calcium 500 + Vit D Caplet) 1 Each Tablet, 1 TAB PO BID, (Reported) Entered as Reported by: ANGELY MATOS on 08/08/15 0857 Last Action: Reviewed Cetirizine HCl (Zyrtec) 10 Mg Tablet, 10 MG PO DAILY, (Reported) Entered as Reported by: ANGELY MATOS on 11/30/18958 Last Action: Reviewed Cholecalciferol (Vitamin D3) (Vitamin D3) 25 Mcg Tablet, 25 MCG PO 1200, (Reported) Entered as Reported by: PATRIC MCMANUS on 02/06/201618 Last Action: Reviewed Cyclosporine (Restasis) 1 Each Droperette, 1 DROP OU BID, (Reported) Entered as Reported by: CORI CHRISTINA on 06/14/19 0754 Last Action: Reviewed Diltiazem HCl (Diltiazem 24Hr ER) 360 Mg Cap.er.24h, 360 MG PO DAILY, (Reported) Entered as Reported by: PATRIC MCMANUS on 02/06/201618 Last Action: Reviewed Dofetilide (Dofetilide) 250 Mcg Capsule, 250 MCG PO BID, (Reported) Entered as Reported by: PATRIC MCMANUS on 02/06/201618 Last Action: Reviewed Famotidine (Pepcid) 20 Mg Tablet, 20 MG PO HS, (Reported) Entered as Reported by: ANGELY MATOS on 05/21/19 0914 Last Action: Reviewed Ferrous Sulfate (Ferrous Sulfate) 325 Mg Tablet, 325 MG PO 1800, (Reported) Entered as Reported by: ANGELY MATOS on 11/30/18958 Last Action: Reviewed Fluticasone/Vilanterol (Breo Ellipta 200-25 Mcg INH) 1 Each Blst.w.dev, 1 EACH IH DAILY, (Reported) Entered as Reported by: CORI CHRISTINA on 06/14/19 0738 Last Action: Reviewed Gabapentin (Gabapentin) 800 Mg Tablet, 800 MG PO QID, (Reported) Entered as Reported by: ANGELY MATOS on 11/30/18958 Last Action: Reviewed Glucosam/Chond/Hyalu/Cf Borate (Move Free Joint Health Tablet) 1 Each Tablet, 1 EACH PO BID, (Reported) Entered as Reported by: PATRIC MCMANUS on 02/06/201618 Last Action: Reviewed Hydroxyzine HCl (Hydroxyzine HCl) 10 Mg Tablet, 10 MG PO TID, (Reported) Entered as Reported by: CORI CHRISTINA on 06/14/19 0738 Last Action: Reviewed Imipramine HCl (Imipramine HCl) 50 Mg Tablet, 50 MG PO HS, (Reported) Entered as Reported by: ANGELY MATOS on 11/30/18958 Last Action: Reviewed Insulin Aspart (Novolog Flexpen) 100 Unit/Ml (3 Ml) Solution, 5-6 UNITS SQ TIDAC, (Reported) Entered as Reported by: ANGELY MATOS on 08/08/15 0857 Last Action: Reviewed Insulin Glargine,Hum.rec.anlog (Lantus Solostar) 100 Unit/Ml (3 Ml) Insuln.pen, 20 UNIT SQ DAILY, (Reported) Entered as Reported by: AMY DOW on 01/21/23918 Last Action: Reviewed Lisinopril (Lisinopril) 20 Mg Tablet, 20 MG PO DAILY, (Reported) Entered as Reported by: ANGELY MATOS on 11/30/18958 Last Action: Reviewed Metformin HCl (Metformin HCl) 1,000 Mg Tablet, 1,000 MG PO BID WITH MEALS, (Reported) Entered as Reported by: CORI CHRISTINA on 06/14/19 0730 Last Action: Reviewed Metoprolol Succinate (Metoprolol Succinate) 50 Mg Tab.er.24h, 50 MG PO DAILY, (Reported) Entered as Reported by: PATRIC MCMANUS on 02/06/201618 Last Action: Reviewed Mirabegron (Myrbetriq) 50 Mg Tab.er.24h, 50 MG PO DAILY, (Reported) Entered as Reported by: PATRIC MCMANUS on 04/13/19 111 Last Action: Reviewed Multivitamin (Multi-Vitamin Daily) 1 Each Tablet, 1 EACH PO DAILY, (Reported) Entered as Reported by: CORI CHRISTINA on 06/14/19 0742 Last Action: Reviewed Nitrofurantoin Macrocrystal (Nitrofurantoin) 100 Mg Capsule, 100 MG PO 1800, (Reported) Entered as Reported by: CORI CHRISTINA on 06/14/19 0741 Last Action: Reviewed Lucien-3/Dha/Epa/Fish Oil (Fish Oil 1,000 mg Softgel) 1,000 Mg (120 Mg-180 Mg) Capsule, 1,000 MG PO TID, (Reported) Entered as Reported by: PATRIC MCMANUS on 01/21/231336 Last Action: Reviewed Oxycodone HCl/Acetaminophen (Percocet 10-325 mg Tablet) 1 Each Tablet, 1 TAB PO EVERY 4-6 HOURS PRN for PAIN-MODERATE (5-7), (Reported) Entered as Reported by: ANGELY MATOS on 05/21/19 0914 Last Action: Reviewed Pantoprazole Sodium (Pantoprazole Sodium) 40 Mg Tablet.dr, 40 MG PO DAILY, (Reported) Entered as Reported by: PATRIC MCMANUS on 01/21/231336 Last Action: Reviewed Polyethylene Glycol 3350 (Miralax) 17 Gm Powd.pack, 17 GM PO DAILY PRN for CONSTIPATION-1ST LINE, (Reported) Entered as Reported by: ANGELY MATOS on 11/30/18 0959 Last Action: Reviewed Polyvinyl Alcohol/Povidone (Artificial Tears Drops) 15 Ml Drops, 2 DROPS OU Q4H PRN for DRY EYES, (Reported) Entered as Reported by: CORI CHRISTINA on 06/14/19 0752 Last Action: Reviewed Primidone (Mysoline) 250 Mg Tablet, 250 MG PO TID, (Reported) Entered as Reported by: PATRIC MCMANUS on 04/13/19 1112 Last Action: Reviewed Solifenacin Succinate (Solifenacin Succinate) 10 Mg Tablet, 10 MG PO 1600, (Reported) Entered as Reported by: PATRIC MCMANUS on 01/21/231336 Last Action: Reviewed Venlafaxine HCl (Venlafaxine HCl ER) 150 Mg Cap.er.24h, 150 MG PO DAILY, (Reported) Entered as Reported by: PATRIC MCMANUS on 02/06/20 1625 Last Action: Reviewed Warfarin Sodium (Warfarin Sodium) 2 Mg Tablet, 2 MG PO NITZA,SAT @1800, (Reported) Entered as Reported by: PATRIC MCMANUS on 01/21/231336 Last Action: Reviewed Warfarin Sodium (Warfarin Sodium) 2 Mg Tablet, 4 MG PO [place],MO,TU,WE,FR @1800, (Reported) Entered as Reported by: PATRIC MCMANUS on 01/21/231336 Last Action: Reviewed Discontinued Medications Atorvastatin Calcium (Atorvastatin Calcium) 80 Mg Tablet, 80 MG PO HS, (Reported) Discontinued Reason: No Longer Taking Entered as Reported by: ANGELY MATOS on 12/21/18 0855 Last Action: Discontinued Cefdinir (Cefdinir) 300 Mg Capsule, 300 MG PO BID Discontinued Reason: No Longer Taking Prescribed by: CALLUM ALCAZAR on 08/17/22207 Last Action: Discontinued Insulin Glargine,Hum.rec.anlog (Lantus) 100 Unit/1 Ml Vial, 18 UNIT SQ HS, (Reported) Discontinued Reason: Provider Change Entered as Reported by: ANGELY MATOS on 08/08/15 0857 Last Action: Discontinued Lactobacillus Rhamnosus GG (Culturelle) 1 Each Capsule, 1 CAP PO DAILY PRN for WHILE TAKING ANTIBIOTICS, (Reported) Discontinued Reason: No Longer Taking Entered as Reported by: ANGELY MATOS on 05/21/19 0914 Last Action: Discontinued Mineral Oil/Petrolatum,White (Refresh Lacri-Lube Ointment) 3.5 Gm Oint...g., OU HS, (Reported) Discontinued Reason: No Longer Taking Entered as Reported by: ANGELY MATOS on 08/08/15 0857 Last Action: Discontinued Lucien 3 Polyunsat Fatty Acids (Fish Oil 1,000 mg Capsule) 1,000 Mg Cap, 1,000 MG PO TID, (Reported) Discontinued Reason: Prescription changed Entered as Reported by: ANGELY MATOS on 11/30/18 0959 Last Action: Continued Ondansetron (Ondansetron Odt) 4 Mg Tab.rapdis, 4 MG PO Q4H Discontinued Reason: No Longer Taking Prescribed by: CALLUM ALCAZAR on 08/17/22207 Last Action: Discontinued Prasugrel HCl (Prasugrel HCl) 10 Mg Tablet, 10 MG PO MoWe, (Reported) Discontinued Reason: No Longer Taking Entered as Reported by: ANGELY MATOS on 12/21/18 0855 Last Action: Discontinued Solifenacin Succinate (Vesicare) 10 Mg Tablet, 10 MG PO 1600, (Reported) Discontinued Reason: No Longer Taking Entered as Reported by: PATRIC MCMANUS on 04/23/19926 Last Action: Discontinued Exam Vital Signs Vital Signs Date Time Temp Pulse Resp B/P (MAP) Pulse Ox O2 Delivery O2 Flow Rate FiO2 01/21/23 15:00 37.2 94 16 133/79 (97) 92 Room Air 01/21/23 13:00 2.00 01/21/23 03:11 28 Physical Exam Constitutional: No respiratory distress, Chest: Clear to auscultation bilaterally, CVS: Regular rhythm, Neuro: Nonfocal, Right foot ulcer noted. Bilateral edema. Labs Laboratory Tests Test 01/20/23 23:14 01/20/23 23:18 01/20/23 23:20 01/20/23 23:38 Range/Units White Blood Count 16.3 H 4.3-11.0 10^3/uL Red Blood Count 3.82 3.80-5.11 10^6/uL Hemoglobin 11.4 L 11.5-16.0 g/dL Hematocrit 34 L 35-52 % Mean Corpuscular Volume 89 80-99 fL Mean Corpuscular Hemoglobin 30 25-34 pg Mean Corpuscular Hemoglobin Concent 34 32-36 g/dL Red Cell Distribution Width 14.5 10.0-14.5 % Platelet Count 230 130-400 10^3/uL Mean Platelet Volume 10.0 9.0-12.2 fL Immature Granulocyte % (Auto) 0 % Neutrophils (%) (Auto) 88 H 42-75 % Lymphocytes (%) (Auto) 7 L 12-44 % Monocytes (%) (Auto) 4 0-12 % Eosinophils (%) (Auto) 0 0-10 % Basophils (%) (Auto) 0 0-10 % Neutrophils # (Auto) 14.4 H 1.8-7.8 10^3/uL Lymphocytes # (Auto) 1.1 1.0-4.0 10^3/uL Monocytes # (Auto) 0.7 0.0-1.0 10^3/uL Eosinophils # (Auto) 0.1 0.0-0.3 10^3/uL Basophils # (Auto) 0.0 0.0-0.1 10^3/uL Immature Granulocyte # (Auto) 0.1 0.0-0.1 10^3/uL Neutrophils % (Manual) 81 % Lymphocytes % (Manual) 7 % Monocytes % (Manual) 3 % Band Neutrophils 9 % Poikilocytosis SLIGHT Elliptocytes SLIGHT Acanthocytes SLIGHT Prothrombin Time 51.7 *H 12.2-14.7 SEC INR Comment 5.9 *H 0.8-1.4 Activated Partial Thromboplast Time 83 H 24-35 SEC Sodium Level 131 L 135-145 MMOL/L Potassium Level 4.1 3.6-5.0 MMOL/L Chloride Level 103 98-107 MMOL/L Carbon Dioxide Level 19 L 21-32 MMOL/L Anion Gap 9 5-14 MMOL/L Blood Urea Nitrogen 16 7-18 MG/DL Creatinine 0.79 0.60-1.30 MG/DL Estimat Glomerular Filtration Rate 80 BUN/Creatinine Ratio 20 Glucose Level 216 H 70-105 MG/DL Calcium Level 7.8 L 8.5-10.1 MG/DL Corrected Calcium 8.4 L 8.5-10.1 MG/DL Total Bilirubin 0.2 0.1-1.0 MG/DL Aspartate Amino Transf (AST/SGOT) 14 5-34 U/L Alanine Aminotransferase (ALT/SGPT) 20 0-55 U/L Alkaline Phosphatase 125 40-136 U/L Total Protein 6.5 6.4-8.2 GM/DL Albumin 3.2 3.2-4.5 GM/DL Influenza Type A (RT-PCR) Not Detected Not Detecte Influenza Type B (RT-PCR) Not Detected Not Detecte SARS-CoV-2 RNA (RT-PCR) Not Detected Not Detecte Glucometer 140 H 70-110 MG/DL Lactic Acid Level 2.47 *H 0.50-2.00 MMOL/L Urine Color YELLOW Urine Clarity CLOUDY Urine pH 7.0 5-9 Urine Specific Lyndon 1.015 L 1.016-1.022 Urine Protein 1+ H NEGATIVE Urine Glucose (UA) 1+ H NEGATIVE Urine Ketones TRACE H NEGATIVE Urine Nitrite POSITIVE H NEGATIVE Urine Bilirubin NEGATIVE NEGATIVE Urine Urobilinogen 0.2 < = 1.0 MG/DL Urine Leukocyte Esterase 3+ H NEGATIVE Urine RBC (Auto) 3+ H NEGATIVE Urine RBC 25-50 H /HPF Urine WBC 50-100 H /HPF Urine Squamous Epithelial Cells 2-5 /HPF Urine Crystals NONE /LPF Urine Bacteria LARGE H /HPF Urine Casts NONE /LPF Urine Mucus NEGATIVE /LPF Urine Culture Indicated CULTURE PENDING Test 01/21/23 01:12 01/21/23 03:40 01/21/23 04:30 01/21/23 10:56 Range/Units Lactic Acid Level 2.43 *H 1.81 0.50-2.00 MMOL/L Sodium Level 133 L 135-145 MMOL/L Potassium Level 4.3 3.6-5.0 MMOL/L Chloride Level 105 98-107 MMOL/L Carbon Dioxide Level 18 L 21-32 MMOL/L Anion Gap 10 5-14 MMOL/L Blood Urea Nitrogen 18 7-18 MG/DL Creatinine 0.78 0.60-1.30 MG/DL Estimat Glomerular Filtration Rate 82 BUN/Creatinine Ratio 23 Glucose Level 109 H 70-105 MG/DL Calcium Level 7.9 L 8.5-10.1 MG/DL Corrected Calcium 8.7 8.5-10.1 MG/DL Phosphorus Level 3.2 2.3-4.7 MG/DL Magnesium Level 1.5 L 1.6-2.4 MG/DL Total Bilirubin 0.2 0.1-1.0 MG/DL Aspartate Amino Transf (AST/SGOT) 15 5-34 U/L Alanine Aminotransferase (ALT/SGPT) 19 0-55 U/L Alkaline Phosphatase 112 40-136 U/L Total Protein 5.9 L 6.4-8.2 GM/DL Albumin 3.0 L 3.2-4.5 GM/DL White Blood Count 14.6 H 4.3-11.0 10^3/uL Red Blood Count 3.52 L 3.80-5.11 10^6/uL Hemoglobin 10.4 L 11.5-16.0 g/dL Hematocrit 31 L 35-52 % Mean Corpuscular Volume 89 80-99 fL Mean Corpuscular Hemoglobin 30 25-34 pg Mean Corpuscular Hemoglobin Concent 33 32-36 g/dL Red Cell Distribution Width 14.8 H 10.0-14.5 % Platelet Count 211 130-400 10^3/uL Mean Platelet Volume 10.5 9.0-12.2 fL Immature Granulocyte % (Auto) 0 % Neutrophils (%) (Auto) 80 H 42-75 % Lymphocytes (%) (Auto) 14 12-44 % Monocytes (%) (Auto) 5 0-12 % Eosinophils (%) (Auto) 0 0-10 % Basophils (%) (Auto) 0 0-10 % Neutrophils # (Auto) 11.7 H 1.8-7.8 10^3/uL Lymphocytes # (Auto) 2.1 1.0-4.0 10^3/uL Monocytes # (Auto) 0.8 0.0-1.0 10^3/uL Eosinophils # (Auto) 0.0 0.0-0.3 10^3/uL Basophils # (Auto) 0.0 0.0-0.1 10^3/uL Immature Granulocyte # (Auto) 0.1 0.0-0.1 10^3/uL Prothrombin Time 45.1 *H 12.2-14.7 SEC INR Comment 5.0 H 0.8-1.4 Activated Partial Thromboplast Time 100 H 24-35 SEC Glucometer 163 H 70-110 MG/DL ECG Impression ECG Comment atrial tach vs sinus tach. A/P-Cardiology Assessment/Admission Diagnosis Cellulitis, sepsis, Persistent atrial fibrillation, previous history of atrial fibrillation ablation, CAD, Chronic oral anticoagulation, Supratherapeutic INR Plan Cellulitis, sepsis, UTI Persistent atrial fibrillation, previous history of atrial fibrillation ablation, CAD, Previous PCI in 2019. Chronic oral anticoagulation, Supratherapeutic INR on coumadin PAD chronic pain issues - peripheral neuropathy Janiya CORDOVA MD Jan 21, 2023 17:25
[2023-01-21] MEDS ORDERED: NITROFURANTOIN MACROCRYSTAL 100 MG PO SCH (18:00)
[2023-01-21] MEDS ORDERED: NON-FORMULARY MEDICATION 1 EA EA (Metformin HCl 1,000 MG) PO SCH (18:00)
[2023-01-21] MEDS: FAMOTIDINE 20 MG TABLET PO SCH (20:53)
[2023-01-21] MEDS: IMIPRAMINE 25 MG TABLET PO SCH (20:54)
[2023-01-21] MEDS: DOFETILIDE 125 MCG CAPSULE PO SCH (20:54)
[2023-01-21] MEDS ORDERED: NON-FORMULARY MEDICATION 1 EA EA (Imipramine HCl 50 MG) PO SCH (21:00)
[2023-01-21] MEDS ORDERED: NON-FORMULARY MEDICATION 1 EA EA (Glucosam/Chond/Hyalu/Cf Borate (Move Free Joint Health T PO SCH (21:00)
[2023-01-21] MEDS ORDERED: DOFETILIDE 250 MCG CAPSULE PO SCH (21:00)
[2023-01-21] MEDS ORDERED: NON-FORMULARY MEDICATION 1 EA EA (Calcium Carbonate/Vitamin D3 (Calcium 500 + Vit D Caplet PO SCH (21:00)
[2023-01-21] MEDS ORDERED: NON-FORMULARY MEDICATION 1 EA EA (Cyclosporine (Restasis) 1 DROP) OU SCH (21:00)
[2023-01-22] MEDS: CEFEPIME INJECTION 1,000 MG in NS (IVPB) 50 ML 50 ML IV SCH ×4 (00:47→21:27)
[2023-01-22 03:55] VITALS: BP 105/65
[2023-01-22] MEDS: VANCOMYCIN 1250MG/250ML PREMIX 250 ML IV SCH ×2 (04:21→17:43)
[2023-01-22] MEDS: VENlafaxine XR 75 MG (EFFEXOR XR) CAP PO SCH (06:08)
[2023-01-22] MEDS: TROSPIUM 20 MG (SANCTURA) TAB PO SCH ×2 (06:08→15:32)
[2023-01-22] MEDS: ACETAMINOPHEN 500 MG TABLET PO SCH ×3 (06:09→21:26)
[2023-01-22 07:07] LABS: BASOPHILS % (AUTO) 0 % (0-10); EOSINOPHILS # (AUTO) 0.2 10^3/uL (0.0-0.3); EOSINOPHILS % (AUTO) 2 % (0-10); HEMATOCRIT 37 % (35-52); HEMOGLOBIN 11.9 g/dL (11.5-16.0); LYMPHOCYTES # (AUTO) 1.6 10^3/uL (1.0-4.0); LYMPHOCYTES % (AUTO) 17 % (12-44); MEAN CORPUSCULAR HEMOGLOBIN 29 pg (25-34); MEAN CORPUSCULAR HGB CONC 32 g/dL (32-36); MEAN CORPUSCULAR VOLUME 90 fL (80-99); MEAN PLATELET VOLUME 10.2 fL (9.0-12.2); MONOCYTES # (AUTO) 0.8 10^3/uL (0.0-1.0); MONOCYTES % (AUTO) 9 % (0-12); NEUTROPHILS # (AUTO) 6.5 10^3/uL (1.8-7.8); NEUTROPHILS % (AUTO) 72 % (42-75); PLATELET COUNT 217 10^3/uL (130-400); WHITE BLOOD COUNT 9.1 10^3/uL (4.3-11.0)
[2023-01-22 07:16] LABS: INR 2.7 (0.8-1.4); PROTHROMBIN TIME PATIENT 28.8 SEC (12.2-14.7)
[2023-01-22 07:18] VITALS: BP 168/95
[2023-01-22 07:27] LABS: ALBUMIN 3.3 GM/DL (3.2-4.5); BILIRUBIN,TOTAL 0.2 MG/DL (0.1-1.0); CALCIUM 8.9 MG/DL (8.5-10.1); CREATININE SERUM 0.76 MG/DL (0.60-1.30); MAGNESIUM 1.8 MG/DL (1.6-2.4); POTASSIUM 4.2 MMOL/L (3.6-5.0)
[2023-01-22] MEDS ORDERED: NS IV 500 ML 500 ML IV PRN (08:30)
[2023-01-22] MEDS: MIRABEGRON 25 MG TABLET PO SCH (08:44)
[2023-01-22] MEDS: PRIMIDONE 250MG TABLET PO SCH ×3 (08:44→21:27)
[2023-01-22] MEDS: hydrOXYzine 10 MG TABLET PO SCH ×3 (08:44→21:27)
[2023-01-22] MEDS: CALCIUM CARBONATE 600 MG +VITAMIN D TABLET PO SCH ×2 (08:45→17:43)
[2023-01-22] MEDS: ASPIRIN 81 MG CHEWABLE TABLET PO SCH (08:45)
[2023-01-22] MEDS: THERAPEUTIC MULTIVITAMIN W/MINERALS TABLET PO SCH (08:45)
[2023-01-22] MEDS: dilTIAZem ER 180 MG CAPSULE PO SCH (08:45)
[2023-01-22] MEDS: PANTOPRAZOLE 40 MG TABLET PO SCH (08:45)
[2023-01-22] MEDS: OMEGA 3 (FISH OIL) 1000 MG CAP PO SCH ×3 (08:45→21:22)
[2023-01-22] MEDS: GABAPENTIN 400 MG CAPSULE PO SCH ×4 (08:45→21:22)
[2023-01-22] MEDS: LORATADINE 10 MG TABLET PO SCH (08:46)
[2023-01-22] MEDS: DOFETILIDE 125 MCG CAPSULE PO SCH ×2 (08:48→21:25)
[2023-01-22] MEDS: inSUlin DETERMIR 1 UNIT/0.01 ML (CHARGE PER UNIT) SQ SCH (08:50)
[2023-01-22] MEDS: inSUlin ASPART 1 UNIT/0.01 ML (PER UNIT) SC SCH ×3 (08:57→18:07)
[2023-01-22] MEDS ORDERED: NON-FORMULARY MEDICATION 1 EA EA (Diltiazem HCl (Diltiazem 24Hr ER) 360 MG) PO SCH (09:00)
[2023-01-22] MEDS ORDERED: NON-FORMULARY MEDICATION 1 EA EA (Cetirizine HCl (Zyrtec) 10 MG) PO SCH (09:00)
[2023-01-22] MEDS ORDERED: NON-FORMULARY MEDICATION 1 EA EA (Mirabegron (Myrbetriq) 50 MG) PO SCH (09:00)
[2023-01-22] MEDS ORDERED: FLUTICASONE/VILANTEROL 200/25 MCG (7 DOSES) IH SCH (09:00)
[2023-01-22] MEDS ORDERED: NON-FORMULARY MEDICATION 1 EA EA (Insulin Glargine,Hum.rec.anlog (Lantus Solostar) 20 UNIT SQ SCH (09:00)
[2023-01-22] MEDS ORDERED: NON-FORMULARY MEDICATION 1 EA EA (Venlafaxine HCl (Venlafaxine HCl ER) 150 MG) PO SCH (09:00)
[2023-01-22] MEDS: FLUTICASONE/VILANTEROL 200/25 MCG (7 DOSES) IH SCH ×2 (10:06→10:47)
[2023-01-22] MEDS: MAGNESIUM 1 GM/100 ML IVPB 100 ML IV SCH ×2 (10:47→11:54)
[2023-01-22 11:35] VITALS: BP 139/88
[2023-01-22] MEDS: VITAMIN D3 25 MCG (1,000 UNITS) TABLET PO SCH (11:55)
[2023-01-22] MEDS: oxyCODONE/ACETAMINOPHEN 10/325MG TABLET PO PRN ×3 (12:06→21:47)
[2023-01-22] MEDS ORDERED: SENNOSIDES 8.6 MG TABLET PO NR (13:00)
[2023-01-22] MEDS ORDERED: BISACODYL 10 MG SUPPOSITORY PR PRN (13:00)
[2023-01-22] MEDS ORDERED: BISACODYL 10 MG SUPPOSITORY PR NR (13:00)
[2023-01-22] MEDS ORDERED: LACTULOSE SYRUP 10GM/15ML 30ML UDC PO NR (13:00)
[2023-01-22] MEDS ORDERED: TROUGH ORDER-PHARMACY XX ONE (16:00)
[2023-01-22] MEDS: HYPOCHLOROUS ACID/NaCl WOUND SOLN 250 ML IR SCH (16:29)
[2023-01-22 16:42] VITALS: BP 133/79
--- NOTE | 2023-01-22 17:15 | Cardiology Progress Note ---
Cardiology SOAP Progress Note Subjective: No significant cardiac complaints however went into atrial fibrillation with RVR. Objective: I&O/Vital Signs 01/22/23 01/22/23 01/22/23 01/22/23 07:00 07:18 08:14 08:48 Temp 37.2 Pulse 96 96 96 Resp 18 B/P (MAP) 168/95 (119) Pulse Ox 93 O2 Delivery Room Air Room Air 01/22/23 01/22/23 01/22/23 11:35 12:51 16:42 Temp 36.8 36.6 Pulse 118 115 82 Resp 19 18 B/P (MAP) 139/88 (105) 133/79 (97) Pulse Ox 97 97 O2 Delivery Room Air Room Air 01/22/23 00:00 Intake Total 2020 ml Output Total 2750 ml Balance -730 ml Weight (Pounds): 302 Weight (Ounces): 0.0 Weight (Calculated Kilograms): [phone] Constitutional: AAO x 3 Respiratory: other (Decreased breath sounds bilaterally) Cardiovascular: irregularly irregular, tachycardia Gastrointestional: soft Neurologic/Psychiatric: alert, normal mood/affect, oriented x 3 Skin: normal color, warm/dry Results/Procedures: Labs Laboratory Tests 01/22/23 05:36: Glucometer 74 01/22/23 06:37: White Blood Count 9.1, Red Blood Count 4.09, Hemoglobin 11.9, Hematocrit 37, Mean Corpuscular Volume 90, Mean Corpuscular Hemoglobin 29, Mean Corpuscular Hemoglobin Concent 32, Red Cell Distribution Width 14.9H, Platelet Count 217, Mean Platelet Volume 10.2, Immature Granulocyte % (Auto) 0, Neutrophils (%) (Auto) 72, Lymphocytes (%) (Auto) 17, Monocytes (%) (Auto) 9, Eosinophils (%) (Auto) 2, Basophils (%) (Auto) 0, Neutrophils # (Auto) 6.5, Lymphocytes # (Auto) 1.6, Monocytes # (Auto) 0.8, Eosinophils # (Auto) 0.2, Basophils # (Auto) 0.0, Immature Granulocyte # (Auto) 0.0, Prothrombin Time 28.8H, INR Comment 2.7H, Activated Partial Thromboplast Time 71H, Sodium Level 138, Potassium Level 4.2, Chloride Level 107, Carbon Dioxide Level 22, Anion Gap 9, Blood Urea Nitrogen 12, Creatinine 0.76, Estimat Glomerular Filtration Rate 84, BUN/Creatinine Ratio 16, Glucose Level 131H, Calcium Level 8.9, Corrected Calcium 9.5, Magnesium Level 1.8, Total Bilirubin 0.2, Aspartate Amino Transf (AST/SGOT) 13, Alanine Aminotransferase (ALT/SGPT) 18, Alkaline Phosphatase 122, Total Protein 7.0, Albumin 3.3 01/22/23 10:34: Glucometer 185H 01/22/23 16:20: Vancomycin Level Trough 14.5 01/22/23 16:59: Glucometer 139H Microbiology 01/21/23 MRSA Screen - Final, Complete MRSA not isolated 01/20/23 Blood Culture - Preliminary, Resulted 01/20/23 Urine Culture - Preliminary, Resulted Pseudomonas aeruginosa A/P: Assessment/Dx: Cellulitis, sepsis, Persistent atrial fibrillation, previous history of atrial fibrillation ablation, CAD, Chronic oral anticoagulation, Supratherapeutic INR Plan: Cellulitis, sepsis, UTI Persistent atrial fibrillation, previous history of atrial fibrillation ablation, went into atrial fibrillation with RVR. Consider Cardizem. CAD, Previous PCI in 2019. Chronic oral anticoagulation, Supratherapeutic INR on coumadin PAD chronic pain issues - peripheral neuropathy Focused Exam Lactate Level 01/20/23 23:20: Lactic Acid Level 2.47*H 01/21/23 01:12: Lactic Acid Level 2.43*H 01/21/23 03:40: Lactic Acid Level 1.81 Time of Focused Exam: 00:30 Janiya CORDOVA MD Jan 22, 2023 17:15
[2023-01-22] MEDS: FERROUS SULFATE 325 MG (IRON) TABLET PO SCH (17:43)
[2023-01-22] MEDS ORDERED: warFARin 2 MG (COUMADIN) TAB PO SCH (18:00)
[2023-01-22] MEDS: NITROFURANTOIN Monohydrate/Macro 100 MG CAPSULE PO SCH (18:41)
[2023-01-22 20:16] VITALS: BP 133/90
[2023-01-22] MEDS: IMIPRAMINE 25 MG TABLET PO SCH (21:27)
[2023-01-22] MEDS: FAMOTIDINE 20 MG TABLET PO SCH (21:27)
[2023-01-22] MEDS: LACTULOSE SYRUP 10GM/15ML 30ML UDC PO SCH (21:35)
[2023-01-23] VITALS (7 sets, daily range): BP systolic 128–162; BP diastolic 69–84
[2023-01-23] MEDS: CEFEPIME INJECTION 1,000 MG in NS (IVPB) 50 ML 50 ML IV SCH ×4 (02:11→20:22)
[2023-01-23] MEDS: VANCOMYCIN 1250MG/250ML PREMIX 250 ML IV SCH ×2 (05:54→17:49)
--- NOTE | 2023-01-23 06:12 | Progress Note - Hospitalist ---
Subjective HPI/CC On Admission Date Seen by Provider: Jan 23, 2023 Time Seen by Provider: 12:00 Chief complaint: Sepsis HPI:This is a 72-year-old female [facility] patient who presented to the ER with severe pain all over and fever. Patient was found to have UTI. Placed on broad- spectrum antibiotics due to high risk for resistant organism. Subjective/Events-last exam Mistakenly missed progress note yesterday on 01/22/2023 but patient was seen and examined Patient doing a little better Multiple somatic complaints every day Vancomycin maintained for foot ulceration Pseudomonas and UTI maintained on cefepime empirically INR subtherapeutic now so we will increase Coumadin to 3.5 mg daily Review of Systems General: Fatigue, Malaise Focused Exam Lactate Level 01/20/23 23:20: Lactic Acid Level 2.47*H 01/21/23 01:12: Lactic Acid Level 2.43*H 01/21/23 03:40: Lactic Acid Level 1.81 Time of Focused Exam: 00:30 Objective Exam Vital Signs Vital Signs Date Time Temp Pulse Resp B/P (MAP) Pulse Ox O2 Delivery O2 Flow Rate FiO2 01/23/23 15:56 36.3 90 17 144/84 (104) 95 Room Air 01/22/23 03:55 2.00 2.00 01/21/23 03:11 28 Capillary Refill : Less Than 3 Seconds General Appearance: No Apparent Distress, WD/WN, Chronically ill Respiratory: Lungs Clear, Normal Breath Sounds Cardiovascular: Regular Rate, Rhythm Neurologic/Psychiatric: Alert, Oriented x3 Results/Procedures Lab Laboratory Tests 01/23/23 05:54 Patient resulted labs reviewed. Assessment/Plan Assessment and Plan Assess & Plan/Chief Complaint Assessment: Sepsis UTI Pseudomonas Atrial fibrillation Coagulopathy on oral anticoagulation Severe chronic pain Percocet dependent Severe neuropathy Fibromyalgia Plan: Supportive care Cefepime Vancomycin SAWYER TELLO DO Jan 23, 2023 06:12
[2023-01-23 06:29] LABS: BASOPHILS % (AUTO) 0 % (0-10); EOSINOPHILS # (AUTO) 0.2 10^3/uL (0.0-0.3); EOSINOPHILS % (AUTO) 2 % (0-10); HEMATOCRIT 34 % (35-52); HEMOGLOBIN 11.4 g/dL (11.5-16.0); LYMPHOCYTES # (AUTO) 2.2 10^3/uL (1.0-4.0); LYMPHOCYTES % (AUTO) 25 % (12-44); MEAN CORPUSCULAR HEMOGLOBIN 30 pg (25-34); MEAN CORPUSCULAR HGB CONC 34 g/dL (32-36); MEAN CORPUSCULAR VOLUME 88 fL (80-99); MEAN PLATELET VOLUME 10.1 fL (9.0-12.2); MONOCYTES # (AUTO) 0.6 10^3/uL (0.0-1.0); MONOCYTES % (AUTO) 7 % (0-12); NEUTROPHILS # (AUTO) 5.9 10^3/uL (1.8-7.8); NEUTROPHILS % (AUTO) 66 % (42-75); PLATELET COUNT 228 10^3/uL (130-400)
[2023-01-23 06:37] LABS: ALBUMIN 3.1 GM/DL (3.2-4.5); BILIRUBIN,TOTAL 0.2 MG/DL (0.1-1.0); CALCIUM 8.8 MG/DL (8.5-10.1); CREATININE SERUM 0.7 MG/DL (0.60-1.30); MAGNESIUM 1.8 MG/DL (1.6-2.4); POTASSIUM 4.2 MMOL/L (3.6-5.0); TOTAL PROTEIN 6.6 GM/DL (6.4-8.2)
[2023-01-23] MEDS: TROSPIUM 20 MG (SANCTURA) TAB PO SCH ×2 (06:58→16:23)
[2023-01-23] MEDS: VENlafaxine XR 75 MG (EFFEXOR XR) CAP PO SCH (06:59)
[2023-01-23] MEDS: ACETAMINOPHEN 500 MG TABLET PO SCH ×3 (06:59→21:11)
[2023-01-23 07:05] LABS: INR 1.7 (0.8-1.4); PROTHROMBIN TIME PATIENT 19.6 SEC (12.2-14.7)
[2023-01-23] MEDS: POTASSIUM CL 10MEQ/50ML IVPB 50 ML IV SCH (07:23)
[2023-01-23] MEDS: POTASSIUM CHLORIDE 20 MEQ TABLET PO SCH (07:24)
[2023-01-23] MEDS: MAGNESIUM 1 GM/100 ML IVPB 100 ML IV SCH ×3 (07:25→12:15)
[2023-01-23] MEDS: MIRABEGRON 25 MG TABLET PO SCH (08:11)
[2023-01-23] MEDS: SENNOSIDES 8.6 MG TABLET PO SCH (08:12)
[2023-01-23] MEDS: ASPIRIN 81 MG CHEWABLE TABLET PO SCH (08:12)
[2023-01-23] MEDS: OMEGA 3 (FISH OIL) 1000 MG CAP PO SCH ×3 (08:12→20:22)
[2023-01-23] MEDS: dilTIAZem ER 180 MG CAPSULE PO SCH (08:12)
[2023-01-23] MEDS: CALCIUM CARBONATE 600 MG +VITAMIN D TABLET PO SCH ×2 (08:13→17:48)
[2023-01-23] MEDS: hydrOXYzine 10 MG TABLET PO SCH ×3 (08:13→20:22)
[2023-01-23] MEDS: PRIMIDONE 250MG TABLET PO SCH ×3 (08:13→20:22)
[2023-01-23] MEDS: GABAPENTIN 400 MG CAPSULE PO SCH ×4 (08:13→20:22)
[2023-01-23] MEDS: LORATADINE 10 MG TABLET PO SCH (08:14)
[2023-01-23] MEDS: PANTOPRAZOLE 40 MG TABLET PO SCH (08:21)
[2023-01-23] MEDS: LACTULOSE SYRUP 10GM/15ML 30ML UDC PO SCH ×2 (08:21→20:22)
[2023-01-23] MEDS: DOFETILIDE 125 MCG CAPSULE PO SCH ×2 (08:22→20:23)
[2023-01-23] MEDS: inSUlin DETERMIR 1 UNIT/0.01 ML (CHARGE PER UNIT) SQ SCH (08:25)
[2023-01-23] MEDS: THERAPEUTIC MULTIVITAMIN W/MINERALS TABLET PO SCH (08:25)
[2023-01-23] MEDS: HYPOCHLOROUS ACID/NaCl WOUND SOLN 250 ML IR SCH (08:25)
[2023-01-23] MEDS: FLUTICASONE/VILANTEROL 200/25 MCG (7 DOSES) IH SCH (09:52)
[2023-01-23] MEDS: inSUlin ASPART 1 UNIT/0.01 ML (PER UNIT) SC SCH ×3 (10:00→17:57)
[2023-01-23] MEDS ORDERED: BISACODYL 10 MG SUPPOSITORY PR PRN (12:00)
[2023-01-23] MEDS ORDERED: BISACODYL 10 MG SUPPOSITORY PR NR (12:00)
[2023-01-23] MEDS: oxyCODONE/ACETAMINOPHEN 10/325MG TABLET PO PRN ×2 (12:16→21:11)
[2023-01-23] MEDS: VITAMIN D3 25 MCG (1,000 UNITS) TABLET PO SCH (12:16)
--- NOTE | 2023-01-23 13:46 | Cardiology Progress Note ---
Cardiology SOAP Progress Note Subjective: no cardiac complaints Objective: I&O/Vital Signs 01/23/23 01/23/23 01/23/23 01/23/23 07:00 07:43 08:00 10:01 Temp 36.8 Pulse 87 86 Resp 20 B/P (MAP) 148/73 (98) Pulse Ox 97 96 O2 Delivery Room Air Room Air Room Air 01/23/23 01/23/23 01/23/23 11:39 12:41 15:56 Temp 36.6 36.3 Pulse 80 79 90 Resp 18 17 B/P (MAP) 134/72 (92) 144/84 (104) Pulse Ox 95 95 O2 Delivery Room Air Room Air 01/22/23 23:59 Intake Total 4285 ml Output Total 4325 ml Balance -40 ml Weight (Pounds): 302 Weight (Ounces): 0.0 Weight (Calculated Kilograms): [phone] Constitutional: AAO x 3 Respiratory: other (Decreased breath sounds bilaterally) Cardiovascular: regular rate-rhythm Gastrointestional: soft Neurologic/Psychiatric: alert, normal mood/affect, oriented x 3 Skin: normal color, warm/dry Results/Procedures: Labs Laboratory Tests 01/22/23 21:51: Glucometer 100 01/23/23 05:53: Glucometer 127H 01/23/23 05:54: White Blood Count 9.0, Red Blood Count 3.85, Hemoglobin 11.4L, Hematocrit 34L, Mean Corpuscular Volume 88, Mean Corpuscular Hemoglobin 30, Mean Corpuscular Hemoglobin Concent 34, Red Cell Distribution Width 14.7H, Platelet Count 228, Mean Platelet Volume 10.1, Immature Granulocyte % (Auto) 0, Neutrophils (%) (Auto) 66, Lymphocytes (%) (Auto) 25, Monocytes (%) (Auto) 7, Eosinophils (%) (Auto) 2, Basophils (%) (Auto) 0, Neutrophils # (Auto) 5.9, Lymphocytes # (Auto) 2.2, Monocytes # (Auto) 0.6, Eosinophils # (Auto) 0.2, Basophils # (Auto) 0.0, Immature Granulocyte # (Auto) 0.0, Prothrombin Time 19.6H, INR Comment 1.7H, Activated Partial Thromboplast Time 51H, Sodium Level 141, Potassium Level 4.2, Chloride Level 109H, Carbon Dioxide Level 22, Anion Gap 10, Blood Urea Nitrogen 11, Creatinine 0.70, Estimat Glomerular Filtration Rate 93, BUN/Creatinine Ratio 16, Glucose Level 127H, Calcium Level 8.8, Corrected Calcium 9.5, Magnesium Level 1.8, Total Bilirubin 0.2, Aspartate Amino Transf (AST/SGOT) 13, Alanine Aminotransferase (ALT/SGPT) 14, Alkaline Phosphatase 107, Total Protein 6.6, Albumin 3.1L 01/23/23 11:42: Glucometer 197H Microbiology 01/21/23 MRSA Screen - Final, Complete MRSA not isolated 01/20/23 Blood Culture - Preliminary, Resulted 01/20/23 Urine Culture - Final, Complete Pseudomonas aeruginosa Pseudomonas aeruginosa#2 A/P: Assessment/Dx: Cellulitis, sepsis, Persistent atrial fibrillation, previous history of atrial fibrillation ab lation, CAD, Chronic oral anticoagulation, Supratherapeutic INR Plan: Cellulitis, sepsis, UTI Persistent atrial fibrillation, previous history of atrial fibrillation ablation, converted back to sinus rhythm CAD, Previous PCI in 2019. Chronic oral anticoagulation, Supratherapeutic INR on coumadin PAD chronic pain issues - peripheral neuropathy Focused Exam Lactate Level 01/20/23 23:20: Lactic Acid Level 2.47*H 01/21/23 01:12: Lactic Acid Level 2.43*H 01/21/23 03:40: Lactic Acid Level 1.81 Time of Focused Exam: 00:30 Janiya CORDOVA MD Jan 23, 2023 13:46
[2023-01-23] MEDS: FERROUS SULFATE 325 MG (IRON) TABLET PO SCH (17:47)
[2023-01-23] MEDS: NITROFURANTOIN Monohydrate/Macro 100 MG CAPSULE PO SCH (17:47)
[2023-01-23] MEDS: metFORMIN 500 MG TABLET PO SCH (17:48)
[2023-01-23] MEDS ORDERED: warFARin 1 MG (COUMADIN) TAB PO SCH (18:00)
[2023-01-23] MEDS ORDERED: warFARin 2.5 MG (COUMADIN) TAB PO SCH (18:00)
[2023-01-23] MEDS ORDERED: warFARin 2 MG (COUMADIN) TAB PO SCH (18:00)
[2023-01-23] MEDS: IMIPRAMINE 25 MG TABLET PO SCH (20:22)
[2023-01-23] MEDS: FAMOTIDINE 20 MG TABLET PO SCH (20:22)
[2023-01-24] MEDS: CEFEPIME INJECTION 1,000 MG in NS (IVPB) 50 ML 50 ML IV SCH ×4 (01:19→17:23)
[2023-01-24 03:39] VITALS: BP 138/76
[2023-01-24] MEDS: VANCOMYCIN 1250MG/250ML PREMIX 250 ML IV SCH (04:38)
[2023-01-24 06:06] LABS: BASOPHILS % (AUTO) 0 % (0-10); EOSINOPHILS # (AUTO) 0.3 10^3/uL (0.0-0.3); EOSINOPHILS % (AUTO) 3 % (0-10); HEMATOCRIT 33 % (35-52); HEMOGLOBIN 10.7 g/dL (11.5-16.0); LYMPHOCYTES # (AUTO) 1.8 10^3/uL (1.0-4.0); LYMPHOCYTES % (AUTO) 23 % (12-44); MEAN CORPUSCULAR HEMOGLOBIN 29 pg (25-34); MEAN CORPUSCULAR HGB CONC 33 g/dL (32-36); MEAN CORPUSCULAR VOLUME 89 fL (80-99); MEAN PLATELET VOLUME 10.2 fL (9.0-12.2); MONOCYTES # (AUTO) 0.7 10^3/uL (0.0-1.0); MONOCYTES % (AUTO) 9 % (0-12); NEUTROPHILS # (AUTO) 5.1 10^3/uL (1.8-7.8); NEUTROPHILS % (AUTO) 65 % (42-75); PLATELET COUNT 237 10^3/uL (130-400); WHITE BLOOD COUNT 7.9 10^3/uL (4.3-11.0)
[2023-01-24 06:11] LABS: INR 1.6 (0.8-1.4)
[2023-01-24] MEDS: TROSPIUM 20 MG (SANCTURA) TAB PO SCH ×2 (06:19→17:23)
[2023-01-24] MEDS: VENlafaxine XR 75 MG (EFFEXOR XR) CAP PO SCH (06:19)
[2023-01-24] MEDS: ACETAMINOPHEN 500 MG TABLET PO SCH ×3 (06:19→21:07)
[2023-01-24 06:21] LABS: ALBUMIN 3.2 GM/DL (3.2-4.5); BILIRUBIN,TOTAL 0.2 MG/DL (0.1-1.0); CALCIUM 8.7 MG/DL (8.5-10.1); CREATININE SERUM 0.73 MG/DL (0.60-1.30); MAGNESIUM 1.7 MG/DL (1.6-2.4); POTASSIUM 4.3 MMOL/L (3.6-5.0); TOTAL PROTEIN 6.7 GM/DL (6.4-8.2)
[2023-01-24] MEDS: MAGNESIUM 1 GM/100 ML IVPB 100 ML IV SCH ×5 (06:28→12:30)
[2023-01-24] MEDS: POTASSIUM CHLORIDE 20 MEQ TABLET PO SCH (06:28)
[2023-01-24] MEDS: POTASSIUM CL 10MEQ/50ML IVPB 50 ML IV SCH (06:28)
[2023-01-24 07:31] VITALS: BP 137/78
[2023-01-24] MEDS: inSUlin ASPART 1 UNIT/0.01 ML (PER UNIT) SC SCH ×3 (07:35→17:23)
[2023-01-24 07:37] VITALS: BP 137/78
[2023-01-24] MEDS: FLUTICASONE/VILANTEROL 200/25 MCG (7 DOSES) IH SCH (07:37)
[2023-01-24] MEDS: hydrOXYzine 10 MG TABLET PO SCH ×3 (08:53→21:07)
[2023-01-24] MEDS: LORATADINE 10 MG TABLET PO SCH (08:53)
[2023-01-24] MEDS: OMEGA 3 (FISH OIL) 1000 MG CAP PO SCH ×3 (08:53→21:07)
[2023-01-24] MEDS: dilTIAZem ER 180 MG CAPSULE PO SCH (08:53)
[2023-01-24] MEDS: metFORMIN 500 MG TABLET PO SCH ×2 (08:53→17:22)
[2023-01-24] MEDS: THERAPEUTIC MULTIVITAMIN W/MINERALS TABLET PO SCH (08:53)
[2023-01-24] MEDS: LACTULOSE SYRUP 10GM/15ML 30ML UDC PO SCH ×2 (08:54→21:06)
[2023-01-24] MEDS: CALCIUM CARBONATE 600 MG +VITAMIN D TABLET PO SCH ×2 (08:54→17:23)
[2023-01-24] MEDS: PRIMIDONE 250MG TABLET PO SCH ×3 (08:54→21:09)
[2023-01-24] MEDS: GABAPENTIN 400 MG CAPSULE PO SCH ×4 (08:54→21:07)
[2023-01-24] MEDS: PANTOPRAZOLE 40 MG TABLET PO SCH (08:54)
[2023-01-24] MEDS: MIRABEGRON 25 MG TABLET PO SCH (08:54)
[2023-01-24] MEDS: ASPIRIN 81 MG CHEWABLE TABLET PO SCH (08:55)
[2023-01-24] MEDS: inSUlin DETERMIR 1 UNIT/0.01 ML (CHARGE PER UNIT) SQ SCH (08:55)
[2023-01-24] MEDS: SENNOSIDES 8.6 MG TABLET PO SCH (08:55)
[2023-01-24] MEDS: oxyCODONE/ACETAMINOPHEN 10/325MG TABLET PO PRN ×3 (08:55→17:26)
[2023-01-24] MEDS: DOFETILIDE 125 MCG CAPSULE PO SCH ×2 (08:56→21:06)
[2023-01-24 11:31] VITALS: BP 138/71
--- NOTE | 2023-01-24 11:54 | Cardiology Progress Note ---
Subjective Date Seen by Provider: Jan 24, 2023 Time Seen by Provider: 10:15 Subjective/Events-last exam Patient is sitting up in bed, denies any chest pain or dyspnea. Focused Exam Time of Focused Exam: 00:30 Objective-Cardiology Exam Last Set of Vital Signs Vital Signs 01/22/23 01/24/23 01/24/23 03:55 11:31 12:23 Temp 36.4 Pulse 71 Resp 17 B/P (MAP) 138/71 (93) Pulse Ox 96 O2 Delivery Room Air O2 Flow Rate 2.00 2.00 I&O Intake and Output 01/24/23 00:00 Intake Total 2240 ml Output Total 4600 ml Balance -2360 ml Intake Oral 2240 ml Output Urine Total 4600 ml # Bowel Movements 6 General: Alert, Oriented X3, Cooperative HEENT: Atraumatic, PERRLA Lungs: Clear to Auscultation, Normal Air Movement Heart: Regular Rate Abdomen: Normal Bowel Sounds, Soft Extremities: Other (+1 edema BLE) Neuro: Normal Speech Psych/Mental Status: Mental Status NL, Mood NL Results Lab Laboratory Tests 01/24/23 05:24 A/P-Cardiology Admission Diagnosis Urosepsis Supratherapeutic INR PAF CAD Assessment/Plan Urosepsis, on antibiotic, management per medical services Coronary artery disease, underwent cardiac catheterization November 22, 2018 revealing severe mid LAD stenosis of 80-90 percent, very tortuous LAD with difficult visualization. Underwent stent placement using resolute integrity 2.5 x 26 mm stent. Stress test was done on January 14, 2021 showing breast attenuation with mild decrease uptake at the base of anteroseptum with no reversibility with no significant ischemia or infarction, stress score 4, SDS 1, EF 62%. History of DVT, first episode occurred about 30 years ago, second episode occurred in July 2015, on the left side while receiving physical therapy for back injury. Maintained on Coumadin Echocardiogram done on February 01, 2022 with normal LV size, EF 55 to 60%, grade 1 diastolic dysfunction, PA pressure 20 mmHg Paroxysmal atrial fibrillation, had multiple episode of paroxysmal atrial fibrillation, multiple hospitalization, underwent A. fib ablation with Dr. Russell on October 01, 2019, had electrical cardioversion in January 2020 for atrial fibrillation Patient is maintained on dofetilide, coumadin. Was supratherapeutic on admission. Have had difficulty as outpatient achieving therapeutic INR. I will d/c coumadin and start Eliquis 5mg BID. Hypertension, controlled, continue to monitor. Controlled, continue to monitor. Hyperlipidemia, lipid profile was done on October 2022 with total cholesterol 174, triglyceride 95, HDL 76, LDL 79. Continue to monitor History of DVT, the first episode occurred in the remote past, second episode in July 2015 on the left while receiving physical therapy for back injury Mild bilateral carotid stenosis, ultrasound was done in December 2021, continue to monitor Back pain and joint pain, history of Charcot joint Mild obstructive sleep apnea, followed and managed by primary care physician Diabetes mellitus, followed and managed by primary care physician. BMI is 40, we discussed weight loss and exercise. Supervisory-Addendum Brief Supervisory Addendum Participated in pt care: history, MDM, physical Personally performed: exam, history, MDM Care discussed with: HIMANSHU Results interpretation: Verified all documentation Notes: Patient was seen and evaluated with Talya, examination performed, management plan was discussed, agree with the current scribed note, I made few changes to the note using Italic font Patient was seen at bedside, laying down comfortably, feeling better, no chest pain We will monitor heart rate and blood pressure, continue on current medication No changes are recommended TALYA PEREZ Jan 24, 2023 11:54 CHARLY JOSE MD Jan 24, 2023 13:06
--- NOTE | 2023-01-24 12:40 | Progress Note ---
Subjective Subjective/Events-last exam Having headache until noon. Constipation, had to do manual disimpaction last week. Took laxative Tue night and morning. Yesterday had 3 enemas, still feels full. Wound on heal for about 5 weeks. Walks short distances to bathroom, etc at home, due to Charcot foot bilaterally. Focused Exam Time of Focused Exam: 00:30 Objective Exam Last Set of Vital Signs Vital Signs Date Time Temp Pulse Resp B/P (MAP) Pulse Ox O2 Delivery O2 Flow Rate FiO2 01/24/23 11:31 36.4 75 17 138/71 (93) 96 Room Air 01/24/23 07:37 21 01/22/23 03:55 2.00 2.00 Capillary Refill : Less Than 3 Seconds I&O Intake and Output 01/24/23 00:00 Intake Total 2240 ml Output Total 4600 ml Balance -2360 ml Intake Oral 2240 ml Output Urine Total 4600 ml # Bowel Movements 6 General: Alert Heart: Regular Rate Abdomen: Normal Bowel Sounds Extremities: No Edema Neuro: Normal Speech Results/Procedures Lab Laboratory Tests 01/23/23 20:05: Glucometer 135H 01/24/23 05:24: White Blood Count 7.9, Red Blood Count 3.69L, Hemoglobin 10.7L, Hematocrit 33L, Mean Corpuscular Volume 89, Mean Corpuscular Hemoglobin 29, Mean Corpuscular Hemoglobin Concent 33, Red Cell Distribution Width 14.7H, Platelet Count 237, Mean Platelet Volume 10.2, Immature Granulocyte % (Auto) 0, Neutrophils (%) (Auto) 65, Lymphocytes (%) (Auto) 23, Monocytes (%) (Auto) 9, Eosinophils (%) (Auto) 3, Basophils (%) (Auto) 0, Neutrophils # (Auto) 5.1, Lymphocytes # (Auto) 1.8, Monocytes # (Auto) 0.7, Eosinophils # (Auto) 0.3, Basophils # (Auto) 0.0, Immature Granulocyte # (Auto) 0.0, Prothrombin Time 19.0H, INR Comment 1.6H, Activated Partial Thromboplast Time 47H, Sodium Level 137, Potassium Level 4.3, Chloride Level 107, Carbon Dioxide Level 23, Anion Gap 7, Blood Urea Nitrogen 10, Creatinine 0.73, Estimat Glomerular Filtration Rate 88, BUN/Creatinine Ratio 14, Glucose Level 121H, Calcium Level 8.7, Corrected Calcium 9.3, Magnesium Level 1.7, Total Bilirubin 0.2, Aspartate Amino Transf (AST/SGOT) 15, Alanine Aminotransferase (ALT/SGPT) 15, Alkaline Phosphatase 104, Total Protein 6.7, Albumin 3.2 01/24/23 05:49: Glucometer 125H 01/24/23 10:40: Glucometer 210H Microbiology 01/21/23 MRSA Screen - Final, Complete MRSA not isolated 01/20/23 Blood Culture - Preliminary, Resulted 01/20/23 Urine Culture - Final, Complete Pseudomonas aeruginosa Pseudomonas aeruginosa#2 Assessment/Plan Assessment/Plan (1) Sepsis Status: Acute Assessment & Plan: Suspect secondary to UTI, pseudomonas, on cefepime. Will d/c vancomycin. (2) UTI (urinary tract infection) Status: Acute Assessment & Plan: Psuedomonas. (3) Chronic atrial fibrillation Status: Acute Assessment & Plan: Appreciate Cardiology recommendations, on defitilide, changing coumadin to Eliquis. (4) HTN (hypertension) Status: Acute (5) Peripheral neuropathy Status: Acute (6) Chronic ulcer of right foot due to diabetes mellitus Status: Acute (7) Charcot foot due to diabetes mellitus Status: Chronic (8) JENNA (obstructive sleep apnea) Status: Chronic (9) CAD (coronary artery disease) Status: Chronic Assessment & Plan: Appreciate Cardiology recommendations. (10) Constipation (11) Adult BMI 40.0-44.9 kg/sq m Status: Chronic (12) DVT prophylaxis Status: Acute Assessment & Plan: On full anticoagulation for A fib and history of DVT JAVIER WATSON MD Jan 24, 2023 12:40
[2023-01-24] MEDS: VITAMIN D3 25 MCG (1,000 UNITS) TABLET PO SCH (13:30)
[2023-01-24] MEDS: HYPOCHLOROUS ACID/NaCl WOUND SOLN 250 ML IR SCH (15:10)
[2023-01-24 16:16] VITALS: BP 121/68
[2023-01-24] MEDS: FERROUS SULFATE 325 MG (IRON) TABLET PO SCH (17:22)
[2023-01-24] MEDS: NITROFURANTOIN Monohydrate/Macro 100 MG CAPSULE PO SCH (17:23)
[2023-01-24 19:55] VITALS: BP 119/68
[2023-01-24] MEDS: FAMOTIDINE 20 MG TABLET PO SCH (21:06)
[2023-01-24] MEDS: IMIPRAMINE 25 MG TABLET PO SCH (21:06)
[2023-01-24] MEDS: APIXABAN 5 MG TABLET PO SCH (21:07)
[2023-01-25] VITALS (7 sets, daily range): BP systolic 130–178; BP diastolic 70–88
[2023-01-25] MEDS: CEFEPIME INJECTION 1,000 MG in NS (IVPB) 50 ML 50 ML IV SCH ×4 (00:19→18:21)
[2023-01-25 05:12] LABS: BASOPHILS % (AUTO) 0 % (0-10); EOSINOPHILS # (AUTO) 0.5 10^3/uL (0.0-0.3); EOSINOPHILS % (AUTO) 6 % (0-10); HEMATOCRIT 32 % (35-52); HEMOGLOBIN 10.7 g/dL (11.5-16.0); LYMPHOCYTES # (AUTO) 2.5 10^3/uL (1.0-4.0); LYMPHOCYTES % (AUTO) 34 % (12-44); MEAN CORPUSCULAR HEMOGLOBIN 30 pg (25-34); MEAN CORPUSCULAR HGB CONC 34 g/dL (32-36); MEAN CORPUSCULAR VOLUME 88 fL (80-99); MEAN PLATELET VOLUME 9.7 fL (9.0-12.2); MONOCYTES # (AUTO) 0.7 10^3/uL (0.0-1.0); MONOCYTES % (AUTO) 10 % (0-12); NEUTROPHILS # (AUTO) 3.6 10^3/uL (1.8-7.8); NEUTROPHILS % (AUTO) 49 % (42-75); PLATELET COUNT 251 10^3/uL (130-400); WHITE BLOOD COUNT 7.3 10^3/uL (4.3-11.0)
[2023-01-25 05:40] LABS: ALBUMIN 3.1 GM/DL (3.2-4.5); BILIRUBIN,TOTAL 0.2 MG/DL (0.1-1.0); CALCIUM 8.7 MG/DL (8.5-10.1); CREATININE SERUM 0.77 MG/DL (0.60-1.30); MAGNESIUM 1.9 MG/DL (1.6-2.4); POTASSIUM 4.3 MMOL/L (3.6-5.0); TOTAL PROTEIN 6.5 GM/DL (6.4-8.2)
[2023-01-25] MEDS: MAGNESIUM 1 GM/100 ML IVPB 100 ML IV SCH ×2 (05:43→06:34)
[2023-01-25] MEDS: POTASSIUM CHLORIDE 20 MEQ TABLET PO SCH (05:43)
[2023-01-25] MEDS: ACETAMINOPHEN 500 MG TABLET PO SCH ×3 (05:43→20:10)
[2023-01-25] MEDS: POTASSIUM CL 10MEQ/50ML IVPB 50 ML IV SCH (05:43)
[2023-01-25] MEDS: VENlafaxine XR 75 MG (EFFEXOR XR) CAP PO SCH (05:56)
[2023-01-25] MEDS: TROSPIUM 20 MG (SANCTURA) TAB PO SCH ×2 (05:56→15:52)
[2023-01-25] MEDS: oxyCODONE/ACETAMINOPHEN 10/325MG TABLET PO PRN (05:56)
[2023-01-25] MEDS: FLUTICASONE/VILANTEROL 200/25 MCG (7 DOSES) IH SCH (08:37)
[2023-01-25] MEDS: LACTULOSE SYRUP 10GM/15ML 30ML UDC PO SCH ×3 (08:38→20:13)
[2023-01-25] MEDS: inSUlin ASPART 1 UNIT/0.01 ML (PER UNIT) SC SCH ×3 (08:38→18:21)
[2023-01-25] MEDS: inSUlin DETERMIR 1 UNIT/0.01 ML (CHARGE PER UNIT) SQ SCH (08:40)
[2023-01-25] MEDS: DOFETILIDE 125 MCG CAPSULE PO SCH ×2 (08:40→20:11)
[2023-01-25] MEDS: OMEGA 3 (FISH OIL) 1000 MG CAP PO SCH ×3 (08:41→20:10)
[2023-01-25] MEDS: ASPIRIN 81 MG CHEWABLE TABLET PO SCH (08:41)
[2023-01-25] MEDS: metFORMIN 500 MG TABLET PO SCH ×2 (08:41→18:22)
[2023-01-25] MEDS: PANTOPRAZOLE 40 MG TABLET PO SCH (08:41)
[2023-01-25] MEDS: MIRABEGRON 25 MG TABLET PO SCH (08:42)
[2023-01-25] MEDS: APIXABAN 5 MG TABLET PO SCH ×2 (08:42→20:10)
[2023-01-25] MEDS: THERAPEUTIC MULTIVITAMIN W/MINERALS TABLET PO SCH (08:42)
[2023-01-25] MEDS: hydrOXYzine 10 MG TABLET PO SCH ×3 (08:42→20:09)
[2023-01-25] MEDS: LORATADINE 10 MG TABLET PO SCH (08:42)
[2023-01-25] MEDS: PRIMIDONE 250MG TABLET PO SCH ×3 (08:42→20:09)
[2023-01-25] MEDS: HYPOCHLOROUS ACID/NaCl WOUND SOLN 250 ML IR SCH (08:43)
[2023-01-25] MEDS: dilTIAZem ER 180 MG CAPSULE PO SCH (08:43)
[2023-01-25] MEDS: GABAPENTIN 400 MG CAPSULE PO SCH ×4 (08:44→20:10)
[2023-01-25] MEDS: SENNOSIDES 8.6 MG TABLET PO SCH ×3 (08:44→20:13)
[2023-01-25] MEDS ORDERED: APIX5TAB PO (08:47)
[2023-01-25] MEDS ORDERED: CEFD300C3 PO (08:49)
[2023-01-25] MEDS: CALCIUM CARBONATE 600 MG +VITAMIN D TABLET PO SCH ×2 (09:42→18:23)
--- NOTE | 2023-01-25 10:54 | Cardiology Progress Note ---
Subjective Date Seen by Provider: Jan 25, 2023 Time Seen by Provider: 10:53 Subjective/Events-last exam Patient was seen at bedside, laying down comfortably. Having generalized fatigue. Focused Exam Time of Focused Exam: 00:30 Objective-Cardiology Exam Last Set of Vital Signs Vital Signs 01/22/23 01/25/23 03:55 07:19 Temp 36.2 Pulse 79 Resp 17 B/P (MAP) 130/72 (91) Pulse Ox 92 O2 Delivery Room Air O2 Flow Rate 2.00 2.00 I&O Intake and Output 01/25/23 00:00 Intake Total 2200 ml Output Total 3400 ml Balance -1200 ml Intake Oral 2200 ml Output Urine Total 3400 ml # Voids 8 # Bowel Movements 1 General: Alert, Oriented X3, Cooperative HEENT: Atraumatic, PERRLA Lungs: Clear to Auscultation, Normal Air Movement Heart: Regular Rate, Normal S1, Normal S2 Abdomen: Normal Bowel Sounds Extremities: No Clubbing, No Edema Neuro: Normal Speech Psych/Mental Status: Mental Status NL, Mood NL Results Lab Laboratory Tests 01/25/23 05:04 A/P-Cardiology Admission Diagnosis Urosepsis Supratherapeutic INR PAF CAD Assessment/Plan Urosepsis, on antibiotic, management per medical services Coronary artery disease, underwent cardiac catheterization November 22, 2018 revealing severe mid LAD stenosis of 80-90 percent, very tortuous LAD with difficult visualization. Underwent stent placement using resolute integrity 2.5 x 26 mm stent. Stress test was done on January 14, 2021 showing breast attenuation with mild decrease uptake at the base of anteroseptum with no reversibility with no significant ischemia or infarction, stress score 4, SDS 1, EF 62%. History of DVT, first episode occurred about 30 years ago, second episode occurred in July 2015, on the left side while receiving physical therapy for back injury. Was maintained on Coumadin and having difficulty achieving adequate therapeutic level, patient was having INR of 9 last week I will switch her to Eliquis Echocardiogram done on February 01, 2022 with normal LV size, EF 55 to 60%, grade 1 diastolic dysfunction, PA pressure 20 mmHg Paroxysmal atrial fibrillation, had multiple episode of paroxysmal atrial fibrillation, multiple hospitalization, underwent A. fib ablation with Dr. Russell on October 01, 2019, had electrical cardioversion in January 2020 for atrial fibrillation Patient is maintained on dofetilide, Was supratherapeutic on admission. Have had difficulty as outpatient achieving therapeutic INR. Starting Eliquis 5 mg twice daily Hypertension, controlled, continue to monitor. Controlled, continue to monitor. Hyperlipidemia, lipid profile was done on October 2022 with total cholesterol 174, triglyceride 95, HDL 76, LDL 79. Continue to monitor History of DVT, the first episode occurred in the remote past, second episode in July 2015 on the left while receiving physical therapy for back injury Mild bilateral carotid stenosis, ultrasound was done in December 2021, continue to monitor Back pain and joint pain, history of Charcot joint Mild obstructive sleep apnea, followed and managed by primary care physician Diabetes mellitus, followed and managed by primary care physician. BMI is 40, we discussed weight loss and exercise. CHARLY JOSE MD Jan 25, 2023 10:54
[2023-01-25] MEDS: VITAMIN D3 25 MCG (1,000 UNITS) TABLET PO SCH (12:45)
--- NOTE | 2023-01-25 14:14 | Progress Note ---
Subjective Subjective/Events-last exam Afebrile, states she is still feeling constipated, hasn't had a BM and has abdominal pain. Doesn't have caregivers at home currently, was going to interview one yesterday but was here. Focused Exam Time of Focused Exam: 00:30 Objective Exam Last Set of Vital Signs Vital Signs Date Time Temp Pulse Resp B/P (MAP) Pulse Ox O2 Delivery O2 Flow Rate FiO2 01/25/23 12:48 86 01/25/23 11:30 36.0 18 142/78 (99) 95 Room Air 01/24/23 07:37 21 01/22/23 03:55 2.00 2.00 Capillary Refill : Less Than 3 Seconds I&O Intake and Output 01/25/23 00:00 Intake Total 2200 ml Output Total 3400 ml Balance -1200 ml Intake Oral 2200 ml Output Urine Total 3400 ml # Voids 8 # Bowel Movements 1 General: Alert, No Acute Distress Lungs: Clear to Auscultation, Normal Air Movement Heart: Regular Rate Abdomen: Normal Bowel Sounds, Other (diffuse mild ttp) Extremities: Other (trace edema) Psych/Mental Status: Mood NL Results/Procedures Lab Laboratory Tests 01/24/23 15:51: Glucometer 104 01/24/23 19:13: Glucometer 110 01/25/23 05:04: White Blood Count 7.3, Red Blood Count 3.61L, Hemoglobin 10.7L, Hematocrit 32L, Mean Corpuscular Volume 88, Mean Corpuscular Hemoglobin 30, Mean Corpuscular Hemoglobin Concent 34, Red Cell Distribution Width 14.6H, Platelet Count 251, Mean Platelet Volume 9.7, Immature Granulocyte % (Auto) 0, Neutrophils (%) (Auto) 49, Lymphocytes (%) (Auto) 34, Monocytes (%) (Auto) 10, Eosinophils (%) (Auto) 6, Basophils (%) (Auto) 0, Neutrophils # (Auto) 3.6, Lymphocytes # (Auto) 2.5, Monocytes # (Auto) 0.7, Eosinophils # (Auto) 0.5H, Basophils # (Auto) 0.0, Immature Granulocyte # (Auto) 0.0, Activated Partial Thromboplast Time 48H, Sodium Level 140, Potassium Level 4.3, Chloride Level 107, Carbon Dioxide Level 25, Anion Gap 8, Blood Urea Nitrogen 12, Creatinine 0.77, Estimat Glomerular Filtration Rate 83, BUN/Creatinine Ratio 16, Glucose Level 109H, Calcium Level 8.7, Corrected Calcium 9.4, Magnesium Level 1.9, Total Bilirubin 0.2, Aspartate Amino Transf (AST/SGOT) 15, Alanine Aminotransferase (ALT/SGPT) 15, Alkaline Phosphatase 105, Total Protein 6.5, Albumin 3.1L 01/25/23 10:28: Glucometer 161H Microbiology 01/21/23 MRSA Screen - Final, Complete MRSA not isolated 01/20/23 Blood Culture - Preliminary, Resulted 01/20/23 Urine Culture - Final, Complete Pseudomonas aeruginosa Pseudomonas aeruginosa#2 Assessment/Plan Assessment/Plan (1) Sepsis Status: Acute Assessment & Plan: Suspect secondary to UTI, pseudomonas, on cefepime. Will d/c vancomycin. (2) UTI (urinary tract infection) Status: Acute Assessment & Plan: Psuedomonas. (3) Chronic atrial fibrillation Status: Acute Assessment & Plan: Appreciate Cardiology recommendations, on defitilide, changing coumadin to Eliquis. (4) HTN (hypertension) Status: Acute (5) Peripheral neuropathy Status: Acute (6) Chronic ulcer of right foot due to diabetes mellitus Status: Acute (7) Charcot foot due to diabetes mellitus Status: Chronic (8) JENNA (obstructive sleep apnea) Status: Chronic (9) CAD (coronary artery disease) Status: Chronic Assessment & Plan: Appreciate Cardiology recommendations. (10) Constipation Status: Acute Assessment & Plan: Aggressive treatment today, KUB with significant stool burden (11) Adult BMI 40.0-44.9 kg/sq m Status: Chronic (12) DVT prophylaxis Status: Acute Assessment & Plan: On full anticoagulation for A fib and history of DVT JAVIER WATSON MD Jan 25, 2023 14:14
[2023-01-25] MEDS ORDERED: MILK OF MAGNESIA 400 MG/5 ML 30 ML UDC PO ONE (14:15)
--- NOTE | 2023-01-25 15:17 | Physical Therapy Evaluation ---
PT Evaluation-General Medical Diagnosis Admission Date Jan 21, 2023 at 02:03 Medical Diagnosis: Sepsis secondary to UTI Onset Date: Jan 21, 2023 Therapy Diagnosis Therapy Diagnosis: Gait deficit Height/Weight Height (Feet): 5 Height (Inches): 10.50 Weight (Pounds): 302 Weight (Ounces): 0.0 Precautions Precautions/Isolations: Standard Precautions Weight Bear Status Right Lower Extremity: Right Weight Bearing/Tolerated Left Lower Extremity: Left Weight Bearing/Tolerated Referral Physician: Dr. 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 She reports she told the girl she was going to be looking for another caregiver and gave her notice, but the girl stopped showing up. Will Need assistance finding another caregiver Prior Prior Level of Function SCALE: Activities may be completed with or without assistive devices. 9-Jssykpoxbu-ijtxfyb completes the activity by him/herself with no assistance from a helper. 5-Set-up or Clean-up Assistance-helper sets up or cleans up; patient completes activity. [place] assists only prior to or following the activity. 4-Supervision or Touching Assistance-helper provides verbal cues and/or touching/steadying and/or contact guard assistance as patient completes activity. Assistance may be provided throughout the activity or intermittently. 3-Partial/Moderate Assistance-helper does LESS THAN HALF the effort. [place] lifts, holds or supports trunk or limbs, but provides less than half the effort. 2-Substantial/Maximal Assistance-helper does MORE THAN HALF the effort. [place] lifts or holds trunk or limbs and provides more than half the effort. 6-Mcjkywlso-ggaobm does ALL the effort. Patient does none of the effort to complete the activity. Or, the assistance of 2 or more helpers is required for the patient to complete the activity. If activity was not attempted, code reason: 7-Patient Refused. 9-Not Applicable-not attempted and the patient did not perform the activity before the current illness, exacerbation or injury. 10-Not Attempted due to Environmental Limitations-(lack of equipment, weather restraints, etc.). 88-Not Attempted due to Medical Conditions or Safety Concerns. Bed Mobility: 6 Transfers (B,C,W/C): 6 Gait: 6 Stairs: 6 Indoor Mobility (Ambulation): Independent Stairs: Independent Prior Devices Use: Walker Prior Device Use: Forearm crutches PT Evaluation-Current Subjective Patient lying supine in bed upon PT arrival, agreeable to treatment. Rates pain at 8/10 currently in abdomen. Reports she had Charcot-Tooth foot and has special shoes she has to wear to ambulate. Objective Patient Orientation: Person, Place, Time, Situation Attachments: Gill Catheter ROM/Strength ROM Lower Extremities BLEs limited in all ankle motions. BLE hip and knee motions WFLs Strength Lower Extremities Bilateral ankles 2/5 all planes. BLEs all hip and knee planes 3+/5 Sensory Vision: Functional Hearing: Functional Sensation Right Lower Extremit: Intact Sensation Left Lower Extremity: Intact Transfers Roll Left to Right (QC): 4 Sit to Lying (QC): 4 Lying to Sitting/Side of Bed(Q: 4 Sit to Stand (QC): 4 Chair/Jez-th-Vuqdk Xfer(QC): 4 Gait Does the Patient Walk?: Yes Mode of Locomotion: Walk Anticipated Mode of Locomotion: Walk Walk 10 feet (QC): 4 Walk 50 ft with 2 Turns(QC): 4 Distance: 80' Gait Assistive Device: FWW Balance Sitting Static: Fair Sitting Dynamic: Fair Standing Static: Fair Standing Dynamic: Fair Assessment/Needs Patient tolerated treatment well. She performs all bed mobility and transfers with SBA/CGA. Patient ambulates 80 feet with FWW, with CGA and verbal cues for safety, progression, posture and conservation of energy. Patient sitting edge of bed post treatment with all needs met, nursing notified, call light in hand. Rehab Potential: Fair PT Detention Goals Detention Goals PT Rn Complex Care Goals Time Frame: Feb 12, 2023 Roll Left & Right (QC): 6 Sit to Lying (QC): 6 Lying-Sitting on Side/Bed(QC): 6 Sit to Stand (QC): 6 Chair/Sxy-zs-Neupv Xfer(QC): 6 Toilet Transfer (QC): 6 Does the Patient Walk: Yes Walk 10 feet (QC): 6 Walk 50ft with 2 Turns (QC): 4 Walk 150 ft (QC): 4 1 Step (curb) (QC): 3 4 Steps (QC): 3 PT Plan Problem List Problem List: Activity Tolerance, Functional Strength, Safety, Balance, Gait, Transfer, Bed Mobility, ROM Treatment/Plan Treatment Plan: Continue Plan of Care Treatment Plan: Bed Mobility, Education, Functional Activity Alec, Functional Strength, Gait, Safety, Therapeutic Exercise, Transfers Treatment Duration: Feb 12, 2023 Frequency: 6 times per week Estimated Hrs Per Day: .25 hour per day Safety Risks/Education Patient Education: Gait Training, Transfer Techniques Teaching Recipient: Patient Teaching Methods: Demonstration Response to Teaching: Verbalize Understanding, Return Demonstration Time Time In: 1351 Time Out: 1415 DATE: Jan 25, 2023 Total Billed Treatment Time: 24 Total Billed Treatment Visit, DON PANDEY JOHN A PT Jan 25, 2023 15:17
--- NOTE | 2023-01-25 16:47 | Diagnostic Imaging Report ---
INDICATION: Constipation. COMPARISON: No relevant comparison. There is an elevated fecal load throughout the colon with gas and stool to the rectal vault. No findings of yamileth impaction or obstruction. The small bowel nondilated. IMPRESSION: Mild to moderate pancolonic constipation, greatest at the left colon and rectosigmoid levels. Dictated by: Dictated on workstation # [id number]
[2023-01-25] MEDS: FERROUS SULFATE 325 MG (IRON) TABLET PO SCH (18:22)
[2023-01-25] MEDS: NITROFURANTOIN Monohydrate/Macro 100 MG CAPSULE PO SCH (18:23)
[2023-01-25] MEDS: IMIPRAMINE 25 MG TABLET PO SCH (20:09)
[2023-01-25] MEDS: FAMOTIDINE 20 MG TABLET PO SCH (20:09)
[2023-01-26] MEDS: CEFEPIME INJECTION 1,000 MG in NS (IVPB) 50 ML 50 ML IV SCH (00:22)
[2023-01-26 03:39] VITALS: BP 124/71
[2023-01-26] MEDS: ACETAMINOPHEN 500 MG TABLET PO SCH ×2 (05:50→12:48)
[2023-01-26] MEDS: TROSPIUM 20 MG (SANCTURA) TAB PO SCH (06:04)
[2023-01-26] MEDS: VENlafaxine XR 75 MG (EFFEXOR XR) CAP PO SCH (06:04)
[2023-01-26 07:41] VITALS: BP 146/84
[2023-01-26] MEDS ORDERED: CEFEPIME INJECTION 1,000 MG in NS (IVPB) 50 ML 50 ML IV SCH (09:00)
[2023-01-26] MEDS: inSUlin ASPART 1 UNIT/0.01 ML (PER UNIT) SC SCH ×2 (09:35→12:47)
[2023-01-26] MEDS: inSUlin DETERMIR 1 UNIT/0.01 ML (CHARGE PER UNIT) SQ SCH (09:35)
[2023-01-26] MEDS: HYPOCHLOROUS ACID/NaCl WOUND SOLN 250 ML IR SCH (09:37)
[2023-01-26] MEDS: THERAPEUTIC MULTIVITAMIN W/MINERALS TABLET PO SCH (09:37)
[2023-01-26] MEDS: MIRABEGRON 25 MG TABLET PO SCH (09:37)
[2023-01-26] MEDS: dilTIAZem ER 180 MG CAPSULE PO SCH (09:38)
[2023-01-26] MEDS: hydrOXYzine 10 MG TABLET PO SCH ×2 (09:38→12:48)
[2023-01-26] MEDS: GABAPENTIN 400 MG CAPSULE PO SCH ×2 (09:38→12:47)
[2023-01-26] MEDS: PRIMIDONE 250MG TABLET PO SCH ×2 (09:38→12:47)
[2023-01-26] MEDS: OMEGA 3 (FISH OIL) 1000 MG CAP PO SCH ×2 (09:38→12:48)
[2023-01-26] MEDS: ASPIRIN 81 MG CHEWABLE TABLET PO SCH (09:38)
[2023-01-26] MEDS: CALCIUM CARBONATE 600 MG +VITAMIN D TABLET PO SCH (09:38)
[2023-01-26] MEDS: SENNOSIDES 8.6 MG TABLET PO SCH (09:39)
[2023-01-26] MEDS: LORATADINE 10 MG TABLET PO SCH (09:39)
[2023-01-26] MEDS: metFORMIN 500 MG TABLET PO SCH (09:39)
[2023-01-26] MEDS: APIXABAN 5 MG TABLET PO SCH (09:39)
[2023-01-26] MEDS: FLUTICASONE/VILANTEROL 200/25 MCG (7 DOSES) IH SCH (09:40)
[2023-01-26] MEDS: LACTULOSE SYRUP 10GM/15ML 30ML UDC PO SCH ×2 (09:40→12:47)
[2023-01-26] MEDS: DOFETILIDE 125 MCG CAPSULE PO SCH (09:41)
[2023-01-26] MEDS: PANTOPRAZOLE 40 MG TABLET PO SCH (09:48)
[2023-01-26] MEDS: oxyCODONE/ACETAMINOPHEN 10/325MG TABLET PO PRN (09:48)
[2023-01-26 11:37] VITALS: BP 135/83
--- NOTE | 2023-01-26 11:51 | Discharge Summary ---
Discharge [facility] Reconcile Patient Problems Problems Reviewed?: Yes Discharge Medications New, Converted or Re-Newed RX: Transmitted to Pharmacy New Medications: Cefdinir (Cefdinir) 300 Mg Capsule 300 MG PO BID, #6 CAP 0 Refills Apixaban (Eliquis) 5 Mg Tablet 5 MG PO BID, #60 TAB 0 Refills Continued Medications: Acetaminophen (Acetaminophen) 500 Mg Tablet 1000 MG PO DAILY PRN, TAB Aspirin (Aspirin) 81 Mg Tab.chew 81 MG PO DAILY, TAB Atorvastatin Calcium (Atorvastatin Calcium) 40 Mg Tablet 40 MG PO HS, TAB Calcium Carbonate/Vitamin D3 (Calcium 500 + Vit D Caplet) 1 Each Tablet 1 TAB PO BID, TAB Cetirizine HCl (Zyrtec) 10 Mg Tablet 10 MG PO DAILY, TAB Cholecalciferol (Vitamin D3) (Vitamin D3) 25 Mcg Tablet 25 MCG PO 1200, TAB Cyclosporine (Restasis) 1 Each Droperette 1 DROP OU BID, DROP Diltiazem HCl (Diltiazem 24Hr ER) 360 Mg Cap.er.24h 360 MG PO DAILY, CAP Dofetilide (Dofetilide) 250 Mcg Capsule 250 MCG PO BID, CAP Famotidine (Pepcid) 20 Mg Tablet 20 MG PO HS, TAB Ferrous Sulfate (Ferrous Sulfate) 325 Mg Tablet 325 MG PO 1800, TAB Fluticasone/Vilanterol (Breo Ellipta 200-25 Mcg INH) 1 Each Blst.w.dev 1 EACH IH DAILY Gabapentin (Gabapentin) 800 Mg Tablet 800 MG PO QID, TAB Glucosam/Chond/Hyalu/Cf Borate (Move Free Joint Health Tablet) 1 Each Tablet 1 EACH PO BID, TAB Hydroxyzine HCl (Hydroxyzine HCl) 10 Mg Tablet 10 MG PO TID, TAB Imipramine HCl (Imipramine HCl) 50 Mg Tablet 50 MG PO HS, TAB Insulin Aspart (Novolog Flexpen) 100 Unit/Ml (3 Ml) Solution 5-6 UNITS SQ TIDACCARISSA LAST FILLED 03-21-2022 #5 PENS Insulin Glargine,Hum.rec.anlog (Lantus Solostar) 100 Unit/Ml (3 Ml) Insuln.pen 20 UNIT SQ DAILY, EA Lisinopril (Lisinopril) 20 Mg Tablet 20 MG PO DAILY, TAB Metformin HCl (Metformin HCl) 1,000 Mg Tablet 1000 MG PO BID WITH MEALS, TAB Metoprolol Succinate (Metoprolol Succinate) 50 Mg Tab.er.24h 50 MG PO DAILY, TAB Mirabegron (Myrbetriq) 50 Mg Tab.er.24h 50 MG PO DAILY, TAB Multivitamin (Multi-Vitamin Daily) 1 Each Tablet 1 EACH PO DAILY, TAB Nitrofurantoin Macrocrystal (Nitrofurantoin) 100 Mg Capsule 100 MG PO 1800, CAP [place]-3/Dha/Epa/Fish Oil (Fish Oil 1,000 mg Softgel) 1,000 Mg (120 Mg-180 Mg) Capsule 1000 MG PO TID, CAP Oxycodone HCl/Acetaminophen (Percocet 10-325 mg Tablet) 1 Each Tablet 1 TAB PO EVERY 4-6 HOURS PRN for PAIN-MODERATE (5-7), TAB Pantoprazole Sodium (Pantoprazole Sodium) 40 Mg Tablet.dr 40 MG PO DAILY, TAB Polyethylene Glycol 3350 (Miralax) 17 Gm Powd.pack 17 GM PO DAILY PRN for CONSTIPATION-1ST LINE, EACH Polyvinyl Alcohol/Povidone (Artificial Tears Drops) 15 Ml Drops 2 DROPS OU Q4H PRN for DRY EYES, DROPS Primidone (Mysoline) 250 Mg Tablet 250 MG PO TID Solifenacin Succinate (Solifenacin Succinate) 10 Mg Tablet 10 MG PO 1600, TAB Venlafaxine HCl (Venlafaxine HCl ER) 150 Mg Cap.er.24h 150 MG PO DAILY, CAP Discontinued Medications: Warfarin Sodium (Warfarin Sodium) 2 Mg Tablet 2 MG PO NITZA,SAT @1800, TAB Warfarin Sodium (Warfarin Sodium) 2 Mg Tablet 4 MG PO BERKOWITZ,MO,TU,WE,FR @1800, TAB TAKES 2 (2MG) TABS Patient Instructions Goal/Follow Up Appt: F/up with PCP in 1-2 weeks Return to The [facility] For: New or worsening symptoms Activity & Diet Discharge Diet: No Restrictions Activity as Tolerated: Yes JAVIER WATSON MD Jan 26, 2023 11:51
--- NOTE | 2023-01-26 11:55 | D/C HH Face to Face Order ---
D/C Face to Face Orders Reconcile Patient Problems Problems Reviewed?: Yes Instructions for Patient Via [facility] [employer], Patient Instructions/FollowUp: F/up with PCP w/in 1-2 weeks Physician to follow Patient: Dr. Crews Discharge Diet for Home: No Restrictions Patient Problems: Charcot foot, UTI Patient Data-Allergies,Ht & Wt Patient Allergies: Coded Allergies: black cohosh (Verified Allergy, Unknown, 01/07/22) glyburide (Verified Allergy, Unknown, 01/07/22) isosorbide (Verified Allergy, Unknown, 01/07/22) Uncoded Allergies: ARCABOSE (Allergy, Mild, Abdominal Pain, 10/01/19) GAS PAINS Height (Feet): 5 Height (Inches): 10.50 Weight (Pounds): 302 Weight (Ounces): 0.0 Home Health Need/Face to Face Date of Face to Face: Jan 26, 2023 Clinical Findings: Generalized weakness and fatigue I have seen Pt [id number]: Yes Discharged To: Home Diagnosis/Conditions: See problem list Problems/Diagnosis/Condition: (1) Charcot foot due to diabetes mellitus (2) UTI (urinary tract infection) (3) Sepsis Patient is Homebound due to: Joe fall risk due to instabilty Homebound Status Due to the above stated illness, injury or surgical procedure (medical condition or diagnosis) and associated clinical findings, the patient is homebou nd because of his/her inability to leave home except with aid of a supportive device and/or person AND leaving the home requires a considerable and taxing effort or is medically contraindicated. Pt req the following assistanc: Aid of another person, Cane, Walker Home Health Nursing Orders Home Health Services Order: Nursing Services, Production Team Manager-Evaluate & Treat, Physical Therapy-Evaluate & Treat Home Health Infusion Therapy Line Start Date: Jan 23, 2023 Certify Stmt I certify that this patient is under my care and that I, a nurse practitioner or a physician; a assistant to the ceo working with me, had a face to face encounter that - meets the physician face to face encounter requirements with this patient as dated. JAVIER WATSON MD Jan 26, 2023 11:54
[2023-01-26] MEDS: VITAMIN D3 25 MCG (1,000 UNITS) TABLET PO SCH (12:47)
[2023-01-26 15:42] VITALS: BP 135/83
--- NOTE | 2023-01-26 19:05 | Discharge Summary ---
Discharge Summary Hospital Course Problems/Diagnosis: (1) Sepsis Status: Acute Assessment & Plan: Suspect secondary to UTI, pseudomonas, treated with cefepime inpatient, discharged on cefdinir. (2) UTI (urinary tract infection) Status: Acute Assessment & Plan: Psuedomonas. (3) Chronic atrial fibrillation Status: Acute Assessment & Plan: Appreciate Cardiology recommendations, on defitilide, changed coumadin to Eliquis. (4) HTN (hypertension) Status: Acute (5) Peripheral neuropathy Status: Acute (6) Chronic ulcer of right foot due to diabetes mellitus Status: Acute (7) Charcot foot due to diabetes mellitus Status: Chronic (8) JENNA (obstructive sleep apnea) Status: Chronic (9) CAD (coronary artery disease) Status: Chronic Assessment & Plan: Appreciate Cardiology recommendations. (10) Constipation Status: Acute Assessment & Plan: Aggressive treatment on 01/25, KUB with significant stool burden, passed large amount of stool, advised to continue scheduled Miralax until clear and then back off given significant constipation prior. (11) Adult BMI 40.0-44.9 kg/sq m Status: Chronic Hospital Course Date of Admission: Jan 21, 2023 at 02:03 Admission Diagnosis : Family Physician/Provider: Vj Almaraz - [facility] Date of Discharge: 01/26/23 Discharge Diagnosis: See problem list Hospital Course: See problem list Labs and Pending Lab Test: Laboratory Tests 01/25/23 19:24: Glucometer 105 01/26/23 04:15: Glucometer 97 01/26/23 11:00: Glucometer 190H Microbiology 01/21/23 MRSA Screen - Final, Complete MRSA not isolated 01/20/23 Blood Culture - Final, Complete 01/20/23 Urine Culture - Final, Complete Pseudomonas aeruginosa Pseudomonas aeruginosa#2 Home Meds Active Cefdinir 300 Mg Capsule 300 Mg PO BID Eliquis (Apixaban) 5 Mg Tablet 5 Mg PO BID Reported Solifenacin Succinate 10 Mg Tablet 10 Mg PO 1600 Pantoprazole Sodium 40 Mg Tablet.dr 40 Mg PO DAILY Atorvastatin Calcium 40 Mg Tablet 40 Mg PO HS Fish Oil 1,000 mg Softgel ([place]-3/Dha/Epa/Fish Oil) 1,000 Mg (120 Mg-180 Mg) Capsule 1,000 Mg PO TID Aspirin 81 Mg Tab.chew 81 Mg PO DAILY Lantus Solostar (Insulin Glargine,Hum.rec.anlog) 100 Unit/Ml (3 Ml) Insuln.pen 20 Unit SQ DAILY Venlafaxine HCl ER (Venlafaxine HCl) 150 Mg Cap.er.24h 150 Mg PO DAILY Diltiazem 24Hr ER (Diltiazem HCl) 360 Mg Cap.er.24h 360 Mg PO DAILY Metoprolol Succinate 50 Mg Tab.er.24h 50 Mg PO DAILY Dofetilide 250 Mcg Capsule 250 Mcg PO BID Move Free Joint Health Tablet (Glucosam/Chond/Hyalu/Cf Borate) 1 Each Tablet 1 Each PO BID Vitamin D3 (Cholecalciferol (Vitamin D3)) 25 Mcg Tablet 25 Mcg PO 1200 Restasis (Cyclosporine) 1 Each Droperette 1 Drop OU BID Artificial Tears Drops (Polyvinyl Alcohol/Povidone) 15 Ml Drops 2 Drops OU Q4H PRN Multi-Vitamin Daily (Multivitamin) 1 Each Tablet 1 Each PO DAILY Nitrofurantoin (Nitrofurantoin Macrocrystal) 100 Mg Capsule 100 Mg PO 1800 Hydroxyzine HCl 10 Mg Tablet 10 Mg PO TID Acetaminophen 500 Mg Tablet 1,000 Mg PO DAILY PRN Breo Ellipta 200-25 Mcg INH (Fluticasone/Vilanterol) 1 Each Blst.w.dev 1 Each IH DAILY Metformin HCl 1,000 Mg Tablet 1,000 Mg PO BID WITH MEALS Pepcid (Famotidine) 20 Mg Tablet 20 Mg PO HS Percocet 10-325 mg Tablet (Oxycodone HCl/Acetaminophen) 1 Each Tablet 1 Tab PO EVERY 4-6 HOURS PRN Myrbetriq (Mirabegron) 50 Mg Tab.er.24h 50 Mg PO DAILY Mysoline (Primidone) 250 Mg Tablet 250 Mg PO TID Miralax (Polyethylene Glycol 3350) 17 Gm Powd.pack 17 Gm PO DAILY PRN Ferrous Sulfate 325 Mg Tablet 325 Mg PO 1800 Zyrtec (Cetirizine HCl) 10 Mg Tablet 10 Mg PO DAILY Gabapentin 800 Mg Tablet 800 Mg PO QID Lisinopril 20 Mg Tablet 20 Mg PO DAILY Imipramine HCl 50 Mg Tablet 50 Mg PO HS Calcium 500 + Vit D Caplet (Calcium Carbonate/Vitamin D3) 1 Each Tablet 1 Tab PO BID Novolog Flexpen (Insulin Aspart) 100 Unit/Ml (3 Ml) Solution 5-6 Units SQ TIDAC LAST FILLED 03-21-2022 #5 PENS Assessment/Pt DC Instructions Follow up with Dr. Crews within a week of discharge. Discharge Diet: ADA Diet Activity as Tolerated: Yes Discharge Physical Examination Allergies: Coded Allergies: black cohosh (Verified Allergy, Unknown, 01/07/22) glyburide (Verified Allergy, Unknown, 01/07/22) isosorbide (Verified Allergy, Unknown, 01/07/22) Uncoded Allergies: ARCABOSE (Allergy, Mild, Abdominal Pain, 10/01/19) GAS PAINS General Appearance: No Apparent Distress Cardiovascular: Regular Rate, Rhythm, No Murmur Gastrointestinal: Normal Bowel Sounds, Non Tender, Soft Skin: Normal Color, Warm/Dry Neurologic/Psychiatric: Alert, Normal Mood/Affect JAVIER WATSON MD Jan 26, 2023 19:05
== END 2023-01-26 15:20 | disposition home health service (06) | DRG 872 ==
LOC: EDUNIT# 23:06 → ER 23:08 → ICU 01-21 02:03 → 4TH 01-21 14:49
PROVIDERS: ADMIT Internal Medicine; ATTEND Family Medicine
DX: A41.9 Sepsis, unspecified organism (principal); N39.0 Urinary tract infection, site not specified; I48.20 Chronic atrial fibrillation, unspecified; A52.16 Charcot's arthropathy (tabetic); Z68.41 Body mass index [BMI] 40.0-44.9, adult; L03.115 Cellulitis of right lower limb; D68.9 Coagulation defect, unspecified; I10 Essential (primary) hypertension; G62.9 Polyneuropathy, unspecified; E11.42 Type 2 diabetes mellitus with diabetic polyneuropathy; E11.621 Type 2 diabetes mellitus with foot ulcer; L97.519 Non-pressure chronic ulcer of other part of right foot with unspecified severity; G47.33 Obstructive sleep apnea (adult) (pediatric); I25.10 Atherosclerotic heart disease of native coronary artery without angina pectoris; K59.00 Constipation, unspecified; Z79.4 Long term (current) use of insulin; Z79.84 Long term (current) use of oral hypoglycemic drugs; Z79.899 Other long term (current) drug therapy; Z95.5 Presence of coronary angioplasty implant and graft; Z86.718 Personal history of other venous thrombosis and embolism; I25.2 Old myocardial infarction; E78.00 Pure hypercholesterolemia, unspecified; M19.90 Unspecified osteoarthritis, unspecified site; G89.29 Other chronic pain; M54.9 Dorsalgia, unspecified; E66.01 Morbid (severe) obesity due to excess calories; F41.9 Anxiety disorder, unspecified; F32.A Depression, unspecified; Z20.822 Contact with and (suspected) exposure to COVID-19; R65.20 Severe sepsis without septic shock; Z79.01 Long term (current) use of anticoagulants; E11.65 Type 2 diabetes mellitus with hyperglycemia; Z87.891 Personal history of nicotine dependence; E11.51 Type 2 diabetes mellitus with diabetic peripheral angiopathy without gangrene; M79.7 Fibromyalgia; B96.5 Pseudomonas (aeruginosa) (mallei) (pseudomallei) as the cause of diseases classified elsewhere
CPT/HCPCS: 36415; 71045; 73701; 74018; 80053; 80202; 81000; 82947; 83605; 83735; 84100; 85007; 85025; 85027; 85610; 85730; 87040; 87077; 87081; 87088; 87186; 87636; 93005; 93041; 94640; 94760; 96361; 96365; 96367

== ENCOUNTER → 2023-02-02 | Outpatient (CLI) | payer MEDICARE, MEDICAID ==
[~2023-02-02] MED LIST changes: +APIX5TAB PO; +INSU100I10 SQ; +OMEG100032 PO; +PANT40TA52 PO; +WARF-47 PO
--- NOTE | 2023-02-02 11:56 | Diagnostic Imaging Report ---
INDICATION: Left ankle pain. COMPARISON: None. FINDINGS: Multiple radiographic views of the left foot were obtained and show no acute fracture or dislocation. There is, however, advanced pes planus deformity. There is also advanced chronic deformity to the tarsals of the left foot. The findings suggest Charcot joint. No unexpected radiopaque foreign bodies are seen. IMPRESSION: 1. Probable Charcot joint to the left foot with advanced pes planus deformity. 2. No acute fracture or dislocation of the left ankle. Dictated by: Dictated on workstation # [id number]
== END ==
LOC: ORTHO 11:01
PROVIDERS: ATTEND Orthopaedic Surgery
DX: M25.572 Pain in left ankle and joints of left foot (principal)
CPT/HCPCS: 73610

== ENCOUNTER 2023-03-03 09:21 | Outpatient (RCR) | payer MEDICARE, MEDICAID ==
[2023-03-01 14:19] VITALS: BP 111/67
[2023-03-01] MEDS: CEFEPIME 1,000 MG/NS 50 ML IVPB IV SCH ×2 (15:09)
[2023-03-02] MEDS: CEFEPIME 1,000 MG/NS 50 ML IVPB IV SCH ×2 (21:18)
[2023-03-02 21:54] VITALS: BP 118/65
[~2023-03-03] VITALS: Ht 177.8 cm; Wt 127.2 kg
[~2023-03-03 09:21] MED LIST changes: +CEFEPIME 1,000 MG/NS 50 ML IVPB IV SCH; -OXYB5TAB13 PO; +OXYB5TAB14 PO
[2023-03-03] MEDS ORDERED: NS (IVPB) 50 ML 50 ML ONE (09:37)
[2023-03-03 09:52] VITALS: BP 132/81
== END 2023-03-15 | disposition home or self-care (01) ==
LOC: SDC 09:21
PROVIDERS: ATTEND Pediatrics
DX: N39.0 Urinary tract infection, site not specified (principal)
CPT/HCPCS: 36410; 76937; 96365